=== PATIENT | female | born 1950 | race Caucasian/White ===

== ENCOUNTER 2018-04-16 11:52 | Outpatient (CLI) | payer MEDICARE, OTHER, SELFPAY ==
[2018-04-16 12:44] LABS: Abs Immature Grans 0.01 k/cumm (0.0-0.09); Absolute Basophil Count 0.05 k/cumm (0.0-0.2); Absolute Eosinophil Count 0.27 k/cumm (0.0-0.7); Absolute Lymphocyte Count 0.72 k/cumm (1.2-3.4); Absolute Monocyte Count 0.61 k/cumm (0.11-0.7); Absolute Neutrophil Count 6.02 k/cumm (1.2-6.7); Basophils % 0.7; Eosinophils % 3.5; HCT 39.4 % (36.0-46.0); HGB 12.9 g/dL (12.0-15.5); Immature Grans % 0.1; Lymphocytes % 9.4; Mean Corp. HGB Concentration 32.7 g/dL (32.0-36.0); Mean Corpuscular Volume 97.8 fL (80-95); Mean Platelet Volume 8.9 fL (8.0-11.0); Monocytes % 7.9; Neutrophils % 78.4; Platelet Count 394 x1000/uL (130-400); RBC 4.03 m/cumm (4.00-5.20); RBC Distribution Width 15.3 % (11.7-14.6); White Blood Cell Count 7.68 k/cumm (4.4-10.8)
[2018-04-16 13:33] LABS: ESR 21 MM/HR (0-30)
[2018-04-16 15:08] LABS: ALT 35 U/L (12-78); AST 29 U/L (15-37); Albumin 3.6 g/dL (3.4-5.0); Alkaline Phosphatase 71 U/L (46-116); Anion Gap 9.1 mmol/L (3-11); BUN 17 mg/dL (7-18); Bilirubin, Total 0.5 mg/dL (0.2-1.0); CO2 28.9 mmol/L (21.0-32.0); CREATININE 0.61 mg/dL (0.55-1.02); Calcium 9.1 mg/dL (8.5-10.1); Chloride 105 mmol/L (98-107); Glucose 94 mg/dL (70-100); Potassium 3.8 mmol/L (3.5-5.1); Sodium 143 mmol/L (136-145); Total Protein 6.9 g/dL (6.4-8.2)
[2018-04-16 16:10] LABS: C-Reactive Protein 1.09 mg/dL (0.0-0.3)
[2018-04-17 10:08] LABS: Hepatitis B Surface Ag Negative (NEGAT)
[2018-04-19 10:46] LABS: TB Interpretation Negative (NEGAT)
== END 2018-04-16 12:12 ==
PROVIDERS: PCP Family Medicine; Visit Provider Internal Medicine
DX: M06.00 Rheumatoid arthritis without rheumatoid factor, unspecified site (principal); Z11.1 Encounter for screening for respiratory tuberculosis; Z79.899 Other long term (current) drug therapy
CPT/HCPCS: 36415; 80053; 85652; 87340; 85025; 86140; 86480

== ENCOUNTER 2018-04-16 11:54 | Outpatient (REF) | payer MEDICARE, OTHER, SELFPAY ==
--- NOTE | 2018-04-16 11:00 | PAPFT_PTH ---
PATIENT: Page Katz LOC: [facility] U#:[id number] AGE/SX: 67/F ROOM: RE04/16/[address]: Madison Rey : 1950 BED: DIS: 04/16/2018 SPEC #: [id number] RECD: 04/16/18 12:59 STATUS: CHERIE REClem #: [id number] CHERRY: 04/16/18 11:[address]: Madison Rey DEPT: [facility] Cytology RECD BY: Thea Castro ENTERED: 04/16/18 13:00 SP TYPE: PAPFT RYLEY DR: Nathalie Bain MD Tissues: 1 - CX/ENDOCX FOR PAP SMEARS Procedures: PAP THIN PREP/UVM Screening HPV DNA PROBE Comments: [id number]
== END 2018-04-16 12:14 ==
LOC: LBN 11:54
PROVIDERS: PCP Family Medicine; Visit Provider Obstetrics & Gynecology Gynecology
DX: Z12.4 Encounter for screening for malignant neoplasm of cervix (principal); Z11.51 Encounter for screening for human papillomavirus (HPV)
CPT/HCPCS: 88142; 87624

== ENCOUNTER → 2018-05-02 09:53 | Outpatient (BNVA) | payer MEDICARE, OTHER, SELFPAY | PROVIDERS: Visit Provider Orthopaedic Surgery | DX: M70.61 Trochanteric bursitis, right hip (principal); M70.62 Trochanteric bursitis, left hip; Z96.653 Presence of artificial knee joint, bilateral; I10 Essential (primary) hypertension | CPT/HCPCS: 20610; 99214; J1030 ==

== ENCOUNTER 2018-05-10 01:55 | Outpatient (CLI) | payer MEDICARE, OTHER, SELFPAY ==
[2018-05-10 11:49] LABS: TSH 0.04 uIU/mL (0.358-3.74)
== END 2018-05-10 02:15 ==
PROVIDERS: PCP Family Medicine; Visit Provider Family Medicine
DX: C73 Malignant neoplasm of thyroid gland (principal); E55.9 Vitamin D deficiency, unspecified
CPT/HCPCS: 36415; 84443

== ENCOUNTER 2018-07-25 16:24 | Emergency (ER) | payer MEDICARE, OTHER, SELFPAY ==
[2018-07-25 16:27] VITALS: BP 151/70; PULSE 86; RESP 16; TEMP 36.5; O2SAT 98
--- NOTE | 2018-07-25 16:57 | W.ED.GENAD ---
Discharge Plan Disposition Patient Disposition: HOME Condition: Stable Discharge Details Chief Complaint: Cellulitis Clinical Impression: Ingrowing right great toenail Primary Care Provider: Nathalie Bain ED Provider: Ubaldo Mercer Home Meds and New Rx's Prescriptions: Continued prednisone 1 mg tablet 3 mg PO DAILY RF: 0 methotrexate sodium 2.5 mg tablet 10 mg PO BID RF: 0 gabapentin 100 mg capsule 300 mg PO BID RF: 0 alprazolam 0.5 mg tablet 0.25 mg PO Q HS PRN Qty: 90 RF: 0 folic acid 20 mg capsule 20 mg PO DAILY RF: 0 aspirin [Aspirin Low-Strength] 81 MG tablet,chewable 1 tab.chew PO DAILY RF: 0 losartan 100 MG tablet 100 mg PO DAILY Qty: 90 RF: 4 levothyroxine 125 MCG tablet 125 mcg PO 2 days/week Qty: 30 RF: 4 levothyroxine 150 MCG tablet 150 mcg PO 5 days/wk Qty: 70 RF: 4 hydrochlorothiazide 25 MG tablet 25 mg PO DAILY Qty: 90 RF: 3 duloxetine 60 mg capsule,delayed release(DR/EC) 60 mg PO DAILY Qty: 90 RF: 4 multivitamin 1 EACH capsule 1 cap PO DAILY RF: 0 Discharge Instructions Instructions: Ingrown Nail (ED) Additional Instructions: Please take antibiotics as directed until fully completed. Please use Epsom salt foot soaks 3 times a day for the next week and follow-up with podiatry for reassessment and further treat as needed. Feel free to return to the emergency department for any new or significant worsening of her symptoms. Referrals: Dylon Moe DPM [[facility] STAFF PHYSICIAN] - Discharge Data Discharge Date/Time-TO BE ENTERED AT DEPARTURE: 07/25/18 17:10 Medical Decision Making Patient presenting to the emergency department for chief complaint of right great toe pain. Patient states approximately a week ago she pulled a piece of her nail off and afterwards noted some irritation. Patient states history of ingrown toenails that she is always been able to take care of but over the last week this has increased in pain and redness. Patient denies any fever chills, streaking redness up the foot, or other systemic symptoms. Physical exam shows findings consistent with ingrown toenail to the lateral aspect of the right great toe with mild swelling and erythema. No streaking redness, no purulent drainage. Discussed with patient risk versus benefit of nail removal versus antibiotic therapy and foot soaks until she could follow-up with podiatry. After thorough discussion patient agreed upon plan of care to include Keflex and daily foot soaks with Epsom salts and follow-up with podiatry for reassessment and consideration of nail removal if needed at that point. Patient encouraged to return for any new or significant worsening of symptoms. After discussion of diagnosis and plan of care patient has no further needs, questions, or concerns and states clear understanding to return to the emergency department for any worsening symptoms. HPI General Mode of arrival: ambulatory. Date/Time Provider Initiated Documentation: 07/25/18 16:34. Limitations to Documentation: no limitations. Information obtained by: RN notes reviewed. History of Present Illness 67 year old F presents to the emergency department with the chief complaint of right ingrown toenail, described as moderate, with intensity rated at 10. Quality is described as sharp, and is localized to the right and lower extremity. Patient reports no radiation. Patient started experiencing this week(s) (1) and it has been constant. No relieving factors improve symptom(s), No exacerbating factors reported . Patient notes no other symptoms.. Patient did receive the following treatments prior to arrival, none Related Data Home Medications Medication Instructions Recorded Confirmed aspirin [Aspirin Low-Strength] 1 tab.chew PO DAILY tab-cap 10/13/12 07/25/18 multivitamin 1 cap PO DAILY 07/12/15 07/25/18 losartan 100 mg PO DAILY #90 tab-cap 01/04/18 07/25/18 levothyroxine 125 mcg PO 2 days/week #30 tab-cap 02/07/18 07/25/18 levothyroxine 150 mcg PO 5 days/wk #70 tab 02/07/18 07/25/18 hydrochlorothiazide 25 mg PO DAILY #90 tab-cap 03/13/18 07/25/18 alprazolam 0.5 mg tablet 0.25 mg PO Q HS PRN #90 tab 04/24/18 07/25/18 gabapentin 100 mg capsule 300 mg PO BID cap 04/24/18 07/25/18 methotrexate sodium 2.5 mg tablet 10 mg PO BID tab 04/24/18 07/25/18 prednisone 1 mg tablet 3 mg PO DAILY tab 04/24/18 07/25/18 folic acid 20 mg capsule 20 mg PO DAILY 05/02/18 07/25/18 duloxetine 60 mg capsule,delayed 60 mg PO DAILY #90 tab-cap 05/29/18 07/25/18 release Previous Rx's Medication Instructions Recorded losartan 100 mg PO DAILY #90 tab-cap 01/04/18 levothyroxine 125 mcg PO 2 days/week #30 tab-cap 02/07/18 levothyroxine 150 mcg PO 5 days/wk #70 tab 02/07/18 hydrochlorothiazide 25 mg PO DAILY #90 tab-cap 03/13/18 alprazolam 0.5 mg tablet 0.25 mg PO Q HS PRN #90 tab 04/24/18 duloxetine 60 mg capsule,delayed 60 mg PO DAILY #90 tab-cap 05/29/18 release Allergies Allergy/AdvReac Type Severity Reaction Status Date / Time atorvastatin AdvReac LFTS Unverified 07/25/18 16:32 fentanyl AdvReac CRAZY Unverified 07/25/18 16:32 BEHAVIOR General Stated Complaint: Cellulitis BUSTER: 4 Review of Systems Constitutional Denies body ache(s), Denies chills and Denies fever(s) Musculoskeletal Reports joint swelling, Denies numbness and Denies tingling Integumentary/Breasts Reports as per HPI and Reports skin swelling Neurologic Denies numbness and Denies tingling PFSH Medical History Crohns disease Depression Endometrial cancer Hyperlipidemia Hypertension Non-alcoholic fatty liver disease Polymyalgia rheumatica Primary malignant neoplasm of colon Primary malignant neoplasm of thyroid gland Surgical History Abdominal hysterectomy (05/26/14) Cholecystectomy (~2007) Colectomy Dilation and curettage (04/22/14) ILEOSTOMY (~2005) Replacement of total knee joint THYROIDECTOMY (~2011) shoulder surgery Family History Mother Essential hypertension Hyperlipidemia Father Essential hypertension Heart disease Myocardial infarction Stroke Sister Diabetes Essential hypertension Heart disease Pituitary adenoma Brother Essential hypertension Ulcerative colitis Paternal Grandfather Heart disease Paternal Grandmother Diabetes Sister Diabetes Essential hypertension Depression Asthma Heart disease Sister Essential hypertension Heart disease Son Asthma Son Essential hypertension Daughter Asthma Depression Social History household members: spouse number of children: 3 number of grandchildren: 4 current occupational status: retired pets and animals: Yes pets and animals: dog(s) frequency: decline to answer duration: decline to answer Smoking/Tobacco Use Status: Never second hand exposure: No alcohol intake: never substance use type: does not use flako/synagogue: No preference special flako needs: No additional social history: Children. 1973 Victoria-2 granddaughters, 1975 Chi grandson and granddaughter, 1977 Vic-3 children. Female Reproductive History Menstrual Menopause type: surgical History History 3 Para Hx # Term Pregnancies 3 Multiple births Hx # Pregnancies Ectopic pregnancies AB induced Hx Number of Living Children AB spontaneous Exam Const General: cooperative, no acute distress and not ill appearing Orientation: alert, awake and oriented x3 HENMT Mouth: moist mucous membranes Resp Effort & Inspection: normal respiratory effort, able to speak in complete sentences and no respiratory distress Cardio Rate: regular rate Rhythm: regular rhythm Skin General skin exam: no rashes or lesions noted Neuro General: alert, awake, oriented x3, moves all extremities and no focal motor deficits Sensory Exam: no sensory deficits noted Extrem Left lower extremity: foot Details: abnormal to inspection Details: erythematous (Lateral aspect of distal phalanx of great toe), tenderness Location: of the great toe Location: at the distal phalanx and over the nailbed and vascular exam Details: dorsalis pedis pulse present, posterior tibial pulse present and normal capillary refill Course Vital Signs Temperature 36.5 C 07/25/18 16:27 Pulse 86 07/25/18 16:27 Respiratory Rate 16 07/25/18 16:27 Blood Pressure 151/70 H 07/25/18 16:27 Pulse Oximetry 98 07/25/18 16:27 Temperature 36.5 C 07/25/18 16:27 Pulse 86 07/25/18 16:27 Respiratory Rate 16 07/25/18 16:27 Respiratory Effort Non-Labored 07/25/18 16:51 Blood Pressure 151/70 H 07/25/18 16:27 Blood Pressure Position Sitting 07/25/18 16:27 Pulse Oximetry 98 07/25/18 16:27 Oxygen Delivery Method Room Air 07/25/18 16:27 Oxygen Flow Rate 0 07/25/18 16:27 Pain Level 10 07/25/18 16:27
[2018-07-25] MEDS: Cephalexin 500 MG CAP PO (17:01)
== END 2018-07-25 17:10 | disposition home or self-care (01) ==
PROVIDERS: Emergency Provider Nurse Practitioner Family; PCP Family Medicine
DX: L60.0 Ingrowing nail (principal); I10 Essential (primary) hypertension
CPT/HCPCS: 99283

== ENCOUNTER 2018-10-02 02:48 | Outpatient (CLI) | payer MEDICARE, OTHER, SELFPAY ==
[2018-10-02 12:44] LABS: Abs Immature Grans 0.02 k/cumm (0.0-0.09); Absolute Basophil Count 0.03 k/cumm (0.0-0.2); Absolute Monocyte Count 0.57 k/cumm (0.11-0.7); Absolute Neutrophil Count 4.42 k/cumm (1.2-6.7); Basophils % 0.5; Eosinophils % 3.2; HCT 41.3 % (36.0-46.0); HGB 13.5 g/dL (12.0-15.5); Immature Grans % 0.3; Lymphocytes % 17.4; Mean Corp. HGB Concentration 32.7 g/dL (32.0-36.0); Mean Corpuscular Hemoglobin 31.9 pg (27.0-33.0); Mean Corpuscular Volume 97.6 fL (80-95); Mean Platelet Volume 9.2 fL (8.0-11.0); Neutrophils % 69.6; Platelet Count 430 x1000/uL (130-400); RBC 4.23 m/cumm (4.00-5.20); RBC Distribution Width 16.3 % (11.7-14.6); White Blood Cell Count 6.34 k/cumm (4.4-10.8)
[2018-10-02 13:10] LABS: ALT 38 U/L (12-78); AST 33 U/L (15-37); Albumin 3.4 g/dL (3.4-5.0); Alkaline Phosphatase 72 U/L (46-116); Anion Gap 5.4 mmol/L (3-11); BUN 14 mg/dL (7-18); Bilirubin, Total 0.2 mg/dL (0.2-1.0); C-Reactive Protein 0.92 mg/dL (0.0-0.3); CO2 33.6 mmol/L (21.0-32.0); Calcium 9.6 mg/dL (8.5-10.1); Chloride 104 mmol/L (98-107); Glucose 89 mg/dL (70-100); Potassium 4.1 mmol/L (3.5-5.1); Sodium 143 mmol/L (136-145); Total Protein 6.8 g/dL (6.4-8.2)
[2018-10-02 13:20] LABS: TSH 0.14 uIU/mL (0.358-3.74)
[2018-10-02 13:26] LABS: ESR 17 MM/HR (0-30)
== END 2018-10-02 03:08 ==
PROVIDERS: Internal Medicine; PCP Family Medicine; Visit Provider Family Medicine
DX: E03.9 Hypothyroidism, unspecified (principal); M06.00 Rheumatoid arthritis without rheumatoid factor, unspecified site; Z79.899 Other long term (current) drug therapy
CPT/HCPCS: 36415; 80053; 85652; 84443; 85025; 86140

== ENCOUNTER 2018-12-04 01:45 | Outpatient (CLI) | payer MEDICARE, OTHER, SELFPAY ==
[2018-12-04 14:38] LABS: TSH 0.12 uIU/mL (0.358-3.74)
== END 2018-12-04 02:05 ==
PROVIDERS: PCP Family Medicine; Visit Provider Family Medicine
DX: E03.9 Hypothyroidism, unspecified (principal)
CPT/HCPCS: 36415; 84443

== ENCOUNTER 2019-03-10 01:29 | Outpatient (CLI) | payer MEDICARE, OTHER, SELFPAY ==
[2019-03-10 12:47] LABS: Prothrombin Time 9.8 sec (9.3-11.0)
[2019-03-10 12:52] LABS: TSH 0.99 uIU/mL (0.36-3.74)
== END 2019-03-10 01:49 ==
PROVIDERS: PCP Family Medicine; Visit Provider Internal Medicine
DX: E03.9 Hypothyroidism, unspecified (principal); Z79.01 Long term (current) use of anticoagulants
CPT/HCPCS: 36415; 84443; 85610

== ENCOUNTER 2019-04-29 07:00 | Outpatient (CLI) | payer MEDICARE, OTHER, SELFPAY ==
[2019-04-29 13:19] LABS: HCT 42.3 % (36.0-46.0); HGB 13.4 g/dL (12.0-15.5); Mean Corp. HGB Concentration 31.7 g/dL (32.0-36.0); Mean Corpuscular Hemoglobin 31.3 pg (27.0-33.0); Mean Corpuscular Volume 98.8 fL (80-95); Mean Platelet Volume 9.1 fL (8.0-11.0); Platelet Count 408 x1000/uL (130-400); RBC 4.28 m/cumm (4.00-5.20); RBC Distribution Width 15.7 % (11.7-14.6); White Blood Cell Count 7.69 k/cumm (4.4-10.8)
[2019-04-29 14:00] LABS: ALT 34 U/L (14-59); AST 33 U/L (15-37); Albumin 3.9 g/dL (3.4-5.0); Alkaline Phosphatase 70 U/L (46-116); Anion Gap 10.5 mmol/L (3-11); BUN 10 mg/dL (7-18); Bilirubin, Total 0.5 mg/dL (0.2-1.0); CO2 28.5 mmol/L (21.0-32.0); CREATININE 0.65 mg/dL (0.55-1.02); Calcium 9.7 mg/dL (8.5-10.1); Calculated LDL 92 mg/dL; Chloride 104 mmol/L (98-107); Cholesterol 184 mg/dL (50-200); Glucose 87 mg/dL (70-100); HDL Cholesterol 76 mg/dL (40-60); Potassium 3.8 mmol/L (3.5-5.1); Sodium 143 mmol/L (136-145); TSH 1.27 uIU/mL (0.36-3.74); Total Protein 7.4 g/dL (6.4-8.2); Triglyceride 80 mg/dL (30-150)
[2019-05-01 06:56] LABS: Vitamin D 25 Total 20.2 ng/ml (30-100)
== END 2019-04-29 07:20 ==
PROVIDERS: PCP Family Medicine; Visit Provider Family Medicine
DX: I10 Essential (primary) hypertension (principal); E55.9 Vitamin D deficiency, unspecified; E03.9 Hypothyroidism, unspecified; F32.9 Major depressive disorder, single episode, unspecified; K50.90 Crohn's disease, unspecified, without complications
CPT/HCPCS: 36415; 80053; 80061; 82306; 85027; 84443

== ENCOUNTER → 2019-05-06 09:06 | Outpatient (BNVA) | payer MEDICARE, OTHER, SELFPAY | PROVIDERS: PCP Family Medicine; Visit Provider Orthopaedic Surgery | DX: M25.552 Pain in left hip (principal); M25.551 Pain in right hip; Z47.89 Encounter for other orthopedic aftercare; Z96.653 Presence of artificial knee joint, bilateral | CPT/HCPCS: 99213 ==

== ENCOUNTER 2019-08-26 01:26 | Outpatient (CLI) | payer MEDICARE, SELFPAY ==
[2019-08-26 12:45] LABS: ALT 34 U/L (14-59); AST 28 U/L (15-37); Albumin 3.6 g/dL (3.4-5.0); Alkaline Phosphatase 76 U/L (46-116); Anion Gap 8.6 mmol/L (3-11); BUN 13 mg/dL (7-18); Bilirubin, Total 0.4 mg/dL (0.2-1.0); C-Reactive Protein 0.65 mg/dL (0.0-0.3); CO2 29.4 mmol/L (21.0-32.0); CREATININE 0.62 mg/dL (0.55-1.02); Calcium 9.4 mg/dL (8.5-10.1); Chloride 107 mmol/L (98-107); Glucose 89 mg/dL (74-106); Potassium 3.9 mmol/L (3.5-5.1); Sodium 145 mmol/L (136-145); Total Protein 6.9 g/dL (6.4-8.2)
[2019-08-26 12:49] LABS: Abs Immature Grans 0.02 k/cumm (0.0-0.09); Absolute Basophil Count 0.03 k/cumm (0.0-0.2); Absolute Lymphocyte Count 0.84 k/cumm (1.2-3.4); Absolute Monocyte Count 0.58 k/cumm (0.11-0.7); Absolute Neutrophil Count 4.78 k/cumm (1.2-6.7); Basophils % 0.5; Eosinophils % 3.1; HCT 42.1 % (36.0-46.0); HGB 13.5 g/dL (12.0-15.5); Immature Grans % 0.3 %; Mean Corp. HGB Concentration 32.1 g/dL (32.0-36.0); Mean Corpuscular Hemoglobin 31.9 pg (27.0-33.0); Mean Corpuscular Volume 99.5 fL (80-95); Mean Platelet Volume 8.9 fL (8.0-11.0); Neutrophils % 74.1; Platelet Count 412 x1000/uL (130-400); RBC 4.23 m/cumm (4.00-5.20); RBC Distribution Width 15.4 % (11.7-14.6); White Blood Cell Count 6.45 k/cumm (4.4-10.8)
[2019-08-26 13:35] LABS: ESR 20 mm/hr (0-30)
== END 2019-08-26 01:46 ==
PROVIDERS: PCP Family Medicine; Visit Provider Internal Medicine
DX: M06.00 Rheumatoid arthritis without rheumatoid factor, unspecified site (principal); Z79.899 Other long term (current) drug therapy; K50.90 Crohn's disease, unspecified, without complications
CPT/HCPCS: 36415; 80053; 85652; 85025; 86140

== ENCOUNTER 2020-01-01 03:50 | Outpatient (CLI) | payer MEDICARE, SELFPAY ==
[2020-01-01 14:36] LABS: Abs Immature Grans 0.02 k/cumm (0.0-0.09); Absolute Basophil Count 0.03 k/cumm (0.0-0.2); Absolute Eosinophil Count 0.15 k/cumm (0.0-0.7); Absolute Lymphocyte Count 1.18 k/cumm (1.2-3.4); Absolute Monocyte Count 0.43 k/cumm (0.11-0.7); Absolute Neutrophil Count 6.16 k/cumm (1.2-6.7); Basophils % 0.4; Eosinophils % 1.9; HCT 42.1 % (36.0-46.0); HGB 13.7 g/dL (12.0-15.5); Immature Grans % 0.3 %; Lymphocytes % 14.8; Mean Corp. HGB Concentration 32.5 g/dL (32.0-36.0); Mean Corpuscular Hemoglobin 32.3 pg (27.0-33.0); Mean Corpuscular Volume 99.3 fL (80-95); Mean Platelet Volume 8.7 fL (8.0-11.0); Monocytes % 5.4; Neutrophils % 77.2; Platelet Count 478 x1000/uL (130-400); RBC 4.24 m/cumm (4.00-5.20); RBC Distribution Width 15.4 % (11.7-14.6); White Blood Cell Count 7.97 k/cumm (4.4-10.8)
[2020-01-01 15:12] LABS: ALT 39 U/L (14-59); AST 28 U/L (15-37); Albumin 3.7 g/dL (3.4-5.0); Alkaline Phosphatase 80 U/L (46-116); Anion Gap 3.7 mmol/L (3-11); BUN 13 mg/dL (7-18); Bilirubin, Total 0.6 mg/dL (0.2-1.0); C-Reactive Protein 0.95 mg/dL (0.0-0.3); CO2 34.3 mmol/L (21.0-32.0); CREATININE 0.64 mg/dL (0.55-1.02); Calcium 9.9 mg/dL (8.5-10.1); Chloride 103 mmol/L (98-107); Glucose 95 mg/dL (74-106); Potassium 3.6 mmol/L (3.5-5.1); Sodium 141 mmol/L (136-145); Total Protein 7.2 g/dL (6.4-8.2)
[2020-01-01 15:18] LABS: ESR 20 mm/hr (0-30)
[2020-01-01 15:37] LABS: Vitamin D 25 Total 22.2 ng/ml (30-100)
== END 2020-01-01 04:10 ==
PROVIDERS: PCP Family Medicine; Visit Provider Internal Medicine
DX: E55.9 Vitamin D deficiency, unspecified (principal); M06.00 Rheumatoid arthritis without rheumatoid factor, unspecified site; Z79.899 Other long term (current) drug therapy
CPT/HCPCS: 36415; 80053; 82306; 85652; 85025; 86140

== ENCOUNTER 2020-04-27 04:42 | Outpatient (CLI) | payer MEDICARE, SELFPAY ==
[2020-04-27 10:52] LABS: Abs Immature Grans 0.02 10^3/uL (0.0-0.06); Absolute Basophil Count 0.04 10^3/uL (0.0-0.2); Absolute Lymphocyte Count 0.98 10^3/uL (1.2-3.4); Absolute Monocyte Count 0.74 10^3/uL (0.1-0.8); Absolute Neutrophil Count 6.45 10^3/uL (1.2-6.7); Basophils % 0.5; Eosinophils % 3.5; HCT 40.8 % (36.0-46.0); HGB 13.2 g/dL (11.2-15.7); Immature Grans % 0.2; Lymphocytes % 11.5; MCH 32.3 pg (27.0-33.0); MCHC 32.4 % (32.0-36.0); MCV 99.8 fL (80-95); MPV 8.6 fL (8.0-11.0); Monocytes % 8.7; Neutrophils % 75.6; Nucleated RBC 0 %; Platelet Count 368 10^3/uL (130-400); RBC 4.09 10^6/uL (3.93-5.22); RDW 15.5 % (11.7-14.6); RDW-SD 56.1 fL; WBC 8.53 10^3/uL (4.4-10.8)
[2020-04-27 11:40] LABS: ESR 16 mm/hr (0-30)
[2020-04-27 11:57] LABS: ALT 32 U/L (14-59); AST 27 U/L (15-37); Albumin 3.3 g/dL (3.4-5.0); Alkaline Phosphatase 70 U/L (46-116); BUN 10 mg/dL (7-18); Bilirubin, Total 0.5 mg/dL (0.2-1.0); C-Reactive Protein 0.83 mg/dL (0.0-0.3); CREATININE 0.68 mg/dL (0.55-1.02); Calcium 9.5 mg/dL (8.5-10.1); Chloride 104 mmol/L (98-107); Glucose 99 mg/dL (74-106); Potassium 3.7 mmol/L (3.5-5.1); Sodium 142 mmol/L (136-145); Total Protein 6.7 g/dL (6.4-8.2)
== END 2020-04-27 05:02 ==
PROVIDERS: PCP Family Medicine; Visit Provider Internal Medicine
DX: M06.00 Rheumatoid arthritis without rheumatoid factor, unspecified site (principal); Z79.899 Other long term (current) drug therapy
CPT/HCPCS: 36415; 80053; 85652; 85025; 86140

== ENCOUNTER → 2020-05-26 11:04 | Outpatient (BNVA) | payer MEDICARE, SELFPAY | PROVIDERS: PCP Family Medicine; Referring Provider Family Medicine; Visit Provider Orthopaedic Surgery | DX: M65.332 Trigger finger, left middle finger (principal); I10 Essential (primary) hypertension | CPT/HCPCS: 99214 ==

== ENCOUNTER 2020-06-14 09:14 | Day surgery (SDC) | payer MEDICARE, SELFPAY ==
[2020-06-14 09:45] VITALS: BP 158/67; PULSE 78; RESP 16; TEMP 36.1; O2SAT 96
[2020-06-14] MEDS: Bupivacaine 0.5% Pres-Free 30 ML VIAL (10:56)
[2020-06-14] MEDS: Lidocaine 2% Multi-Dose 50 ML VIAL (10:56)
--- NOTE | 2020-06-14 11:06 | PDOC.DSDIS_ITS ---
Discharge Plan Disposition Patient Disposition: HOME Condition: Good Discharge Details Reason For Visit: RELEASE TRIGGER LMF Attending Provider: Tim Vera Primary Care Provider: Nathalie Bain Home Meds and New Rx's Prescriptions: Continued prednisone 1 mg tablet 5 mg PO DAILY RF: 0 gabapentin 100 mg capsule 300 mg PO BID RF: 0 methotrexate sodium 2.5 mg tablet 10 mg PO .BID once a week RF: 0 folic acid 20 mg capsule 20 mg PO DAILY RF: 0 losartan 100 mg tablet 100 mg PO DAILY Qty: 90 RF: 4 cholecalciferol (vitamin D3) 2,000 unit capsule 2,000 unit PO DAILY Qty: 90 RF: 4 duloxetine 60 mg capsule,delayed release(DR/EC) 60 mg PO DAILY Qty: 90 RF: 4 alprazolam 0.5 mg tablet 0.25 mg PO Q HS PRN Qty: 90 RF: 0 hydrochlorothiazide 25 mg tablet 25 mg PO DAILY Qty: 90 RF: 3 levothyroxine 125 mcg tablet 125 mcg PO DAILY Qty: 90 RF: 0 ibuprofen [Advil] 200 mg Tablet 400 mg PO PRN PRNRF: 0 Discharge Instructions Additional Instructions: Bend and straighten fingers of L hand 10 times/hour when awake to prevent swelling. Remove dressings, shower or bathe and get incision wet, after 48 hours. Leave incision uncovered when it is dry and sealed. Use L hand as much as discomfort allows. Follow up with in 2 weeks. Take tylenol or ibuprofen for pain. Referrals: Tim Vera MD [ [facility] STAFF PHYSICIAN] - (f/u in 2 weeks.) Activity:: Activity as Tolerated Remove Dressings/Wound Care:: 48 hours Shower/Bathe:: 48 hours Diet:: As Tolerated Discharge Orders Discharge Orders: Discharge Order (Routine); Ordered 06/14/20 Ordered By: Tim Vera
--- NOTE | 2020-06-14 12:00 | W.PM.OP ---
Date of service: 06/14/20 Time of Service: 11:00 Operative Note Operative Note DATE OF PROCEDURE: 06/14/20 PRE-OP DIAGNOSIS: Trigger left middle finger POST-OP DIAGNOSIS: same PROCEDURE: Tendon sheath incision for trigger finger left middle finger SURGEON: Tim Vera ANESTHESIA: local COMPLICATIONS: None Patient was transported to: same day Patient's condition: stable Indications: This is a 69-year-old white female with painful locking and catching of her left middle finger of 2-1/2 months duration. The recurrent locking is interfering with use of her left hand. Trigger finger release was recommended to alleviate her pain and restore good function to her left hand. The risk complications of the procedure been explained patient detail preop. Procedure Description: Patient was taken the operating room on 06/14/2020 was placed supine on the operating table. The left hand was prepped and draped free in usual sterile fashion. I infiltrated over the flexor sheath of the left middle finger with 2% Xylocaine solution down to the flexor sheath. A transverse incision was made centered over the flexor sheath approximately 5 mm distal to the distal palmar flexion crease and parallel to it. Incision was carried down to the skin and subcu. Blunt tipped Littler scissors were used then to mobilize the soft tissue away from the flexor sheath. Self-retaining retractors were inserted. Under direct vision the flexor sheath was incised in the midline with a 15 blade. I then completed the incision of the proximal alida with Littler scissors proximally and distally. The patient this point was asked to actively flex and extend her left middle finger. She can now flex and extend her left middle finger without locking or catching. The wound was irrigated with saline solution. The wound margins were infiltrated with 0.5% Marcaine solution. Hemostasis obtained with simple direct pressure. The skin edges were approximated 2 interrupted 4 nylon sutures. Sterile dressings were applied. Patient was discharged to the skilled unit in good condition. Patient was given instructions to flex and extend her fingers of the left hand 10 times an hour while awake to prevent swelling. She is to keep the dressing clean and dry for 48 hours. After 48 hours she is to remove the dressings. She may shower bathe and get her incision wet at that point. She can leave the wound uncovered when it is dry and sealed. She will take Tylenol or ibuprofen for pain. She will follow-up with Dr. Vera in 2 weeks for suture removal. She may use her left hand is much as discomfort allows.
== END 2020-06-14 11:23 | disposition home or self-care (01) ==
PROVIDERS: PCP Family Medicine; Visit Provider Orthopaedic Surgery
PROC: (CPT 26055; principal; 2020-06-14 11:00)
DX: M65.332 Trigger finger, left middle finger (principal)
CPT/HCPCS: 26055

== ENCOUNTER → 2020-06-29 09:52 | Outpatient (BNVA) | payer MEDICARE, SELFPAY | PROVIDERS: PCP Family Medicine; Referring Provider Family Medicine; Visit Provider Orthopaedic Surgery | DX: Z47.89 Encounter for other orthopedic aftercare (principal); M65.332 Trigger finger, left middle finger; I10 Essential (primary) hypertension ==

== ENCOUNTER 2020-09-13 01:45 | Outpatient (CLI) | payer MEDICARE, SELFPAY ==
[2020-09-13 12:30] LABS: Abs Immature Grans 0.04 10^3/uL (0.0-0.06); Absolute Basophil Count 0.08 10^3/uL (0.0-0.2); Absolute Lymphocyte Count 1.15 10^3/uL (1.2-3.4); Absolute Monocyte Count 0.89 10^3/uL (0.1-0.8); Absolute Neutrophil Count 4.86 10^3/uL (1.2-6.7); Basophils % 1.1; Eosinophils % 5.4; HCT 42.7 % (36.0-46.0); HGB 13.7 g/dL (11.2-15.7); Immature Grans % 0.5; Lymphocytes % 15.5; MCH 32.3 pg (27.0-33.0); MCHC 32.1 % (32.0-36.0); MCV 100.7 fL (80-95); MPV 8.9 fL (8.0-11.0); Neutrophils % 65.5; Nucleated RBC 0 %; Platelet Count 393 10^3/uL (130-400); RBC 4.24 10^6/uL (3.93-5.22); RDW 15.9 % (11.7-14.6); RDW-SD 58.4 fL; WBC 7.42 10^3/uL (4.4-10.8)
[2020-09-13 12:34] LABS: ALT 30 U/L (14-59); AST 22 U/L (15-37); Albumin 3.5 g/dL (3.4-5.0); Alkaline Phosphatase 72 U/L (46-116); Anion Gap 7.1 mmol/L (3-11); BUN 14 mg/dL (7-18); Bilirubin, Total 0.4 mg/dL (0.2-1.0); C-Reactive Protein 0.99 mg/dL (0.0-0.3); CO2 29.9 mmol/L (21.0-32.0); CREATININE 0.6 mg/dL (0.55-1.02); Calcium 9.7 mg/dL (8.5-10.1); Chloride 105 mmol/L (98-107); Glucose 93 mg/dL (74-106); Potassium 3.5 mmol/L (3.5-5.1); Sodium 142 mmol/L (136-145)
[2020-09-13 12:36] LABS: Calculated LDL 97 mg/dL (<100); Cholesterol 192 mg/dL (<200); HDL Cholesterol 80 mg/dL (40-60); Triglyceride 78 mg/dL (<150)
[2020-09-13 12:44] LABS: TSH 0.86 uIU/mL (0.36-3.74)
[2020-09-13 12:55] LABS: Vitamin D 25 Total 23.3 ng/ml (30-100)
[2020-09-13 15:54] LABS: ESR 39 mm/hr (<or=30)
== END 2020-09-13 01:46 | disposition home or self-care (01) ==
PROVIDERS: Nurse Practitioner; PCP Family Medicine; Visit Provider Internal Medicine
DX: K50.90 Crohn's disease, unspecified, without complications (principal); I10 Essential (primary) hypertension; C73 Malignant neoplasm of thyroid gland
CPT/HCPCS: 36415; 80053; 80061; 82306; 85652; 84443; 85025; 86140

== ENCOUNTER 2020-11-02 20:49 | Outpatient (REF) | payer MEDICARE, SELFPAY ==
[2020-11-04 15:20] LABS: COVID-19 RT-PCR UVMMC Result Positive (Negative)
== END 2020-11-02 20:50 | disposition home or self-care (01) ==
LOC: LBN 20:49
PROVIDERS: PCP Family Medicine; Visit Provider Physician Assistant
DX: Z20.822 Contact with and (suspected) exposure to COVID-19 (principal)
CPT/HCPCS: U0003; U0005

== ENCOUNTER 2021-04-07 02:39 | Outpatient (CLI) | payer MEDICARE, SELFPAY ==
[2021-04-07 12:20] LABS: Abs Immature Grans 0.03 10^3/uL (0.0-0.06); Absolute Basophil Count 0.05 10^3/uL (0.0-0.2); Absolute Eosinophil Count 0.32 10^3/uL (0.0-0.7); Absolute Lymphocyte Count 1.07 10^3/uL (1.2-3.4); Absolute Monocyte Count 0.71 10^3/uL (0.1-0.8); Absolute Neutrophil Count 4.14 10^3/uL (1.2-6.7); Basophils % 0.8; Eosinophils % 5.1; HGB 13.2 g/dL (11.2-15.7); Immature Grans % 0.5; Lymphocytes % 16.9; MCH 32.1 pg (27.0-33.0); MCHC 32.2 % (32.0-36.0); MCV 99.8 fL (80-95); MPV 9.1 fL (8.0-11.0); Monocytes % 11.2; Neutrophils % 65.5; Nucleated RBC 0 %; Platelet Count 407 10^3/uL (130-400); RBC 4.11 10^6/uL (3.93-5.22); RDW 14.7 % (11.7-14.6); RDW-SD 52.7 fL; WBC 6.32 10^3/uL (4.4-10.8)
[2021-04-07 12:46] LABS: ALT 34 U/L (14-59); AST 28 U/L (15-37); Albumin 3.4 g/dL (3.4-5.0); Alkaline Phosphatase 73 U/L (46-116); Anion Gap 6.7 mmol/L (3-11); BUN 13 mg/dL (7-18); Bilirubin, Total 0.5 mg/dL (0.2-1.0); C-Reactive Protein 0.54 mg/dL (0.0-0.3); CO2 29.3 mmol/L (21.0-32.0); CREATININE 0.8 mg/dL (0.55-1.02); Calcium 9.7 mg/dL (8.5-10.1); Chloride 106 mmol/L (98-107); Glucose 97 mg/dL (74-106); Potassium 3.8 mmol/L (3.5-5.1); Sodium 142 mmol/L (136-145); Total Protein 6.9 g/dL (6.4-8.2)
== END 2021-04-07 02:40 | disposition home or self-care (01) ==
LOC: LOS 02:40
PROVIDERS: PCP Family Medicine; Visit Provider Internal Medicine
DX: M06.00 Rheumatoid arthritis without rheumatoid factor, unspecified site (principal)
CPT/HCPCS: 36415; 80053; 85025; 86140

== ENCOUNTER 2021-05-24 13:38 | Outpatient (CLI) | payer MEDICARE, SELFPAY ==
--- NOTE | 2021-05-24 13:00 | DI.RAD_ITS ---
Exam(s) XR SHOULDER RT COMPLETE 2+V EXAM: XR SHOULDER RT COMPLETE 2+V CLINICAL HISTORY: shoulder pain. TECHNIQUE: 2D digital imaging was performed. COMPARISON: CR RIGHT SHOULDER COMPLETE from 07/08/2015 CR RIGHT SHOULDER COMPLETE from 07/08/2015 CR CHEST 2 VIEWS PA,LAT from 07/09/2015 CR CHEST 2 VIEWS PA,LAT from 07/09/2015 FINDINGS: BONES: No acute fracture is present. No bony destructive lesion is seen. JOINTS: No dislocation present. Glenohumeral joint space is well maintained. There is spurring at t he inferior glenoid. Mild spurring is seen at the greater and lesser tuberosities. SOFT TISSUE: Normal. No tendon or joint space calcifications. IMPRESSION: Mild degenerative changes. DATA REPOSITORY: RADIATION DOSE DELIVERED:
== END 2021-05-24 13:39 | disposition home or self-care (01) ==
LOC: DIORS 13:38
PROVIDERS: PCP Family Medicine; Referring Provider Family Medicine; Visit Provider Student in an Organized Health Care Education/Training Program
DX: M25.511 Pain in right shoulder (principal); G56.02 Carpal tunnel syndrome, left upper limb; G56.22 Lesion of ulnar nerve, left upper limb; M75.81 Other shoulder lesions, right shoulder; M75.21 Bicipital tendinitis, right shoulder
CPT/HCPCS: 99204; 99214; 73030

== ENCOUNTER 2021-06-29 00:42 | Outpatient (CLI) | payer MEDICARE, SELFPAY ==
--- NOTE | 2021-06-29 08:54 | DI.MAMMO_ITS ---
Exam(s) MAMMO SCREENING EXAM: MAMMO SCREENING CLINICAL HISTORY: screening,Z12.39 TECHNIQUE: Bilateral full field digital CC and MLO mammographic images were obtained with 3D tomosyn thesis and utilizing computer aided detection (CAD). COMPARISON: Available for comparison. FINDINGS: Masses/Architectural Distortion: There is an ovoid density in the posterior central right breast seen on the mediolateral oblique view. This area should be further evaluated with a spot compression vie w. Ultrasound may be indicated at that time. Microcalcifications: No suspicious pleomorphic-type are seen. Skin Thickening/Nipple Retraction: None. IMPRESSION: 1. Ovoid asymmetry in the posterior central right breast seen on the MLO view. 2. Further evaluation with a spot compression views recommended. Ultrasound may be indicated at that time. BI-RADS Category 0 - Assessment Incomplete: Need additional imaging evaluation Breast Density - Category B - Scattered areas of fibroglandular density Breast density category C or D implies that the patient has dense breast tissue. Dense breast tissue is very common and is not abnormal but dense breast tissue can make it harder to find cancer on a ma mmogram. Also, dense breast tissue may increase their breast cancer risk. This information about the result of the mammogram report was provided to the patient to raise their awareness. Use this report when you speak with the patient about their risks for breast cancer, which includes their family hist ory. At that time, you may recommend for more screening tests (Ultrasound or MRI) as they might be us eful based on their risk. A negative radiographic report should not delay biopsy if a dominant or clinically suspicious mass is present. Up to ten percent of cancers are not identified on mammography. A negative report may reinforce clinical impression. Adenosis and dense breasts may obscure an underlying neoplasm. False positive reports average 6 to 10%. Patient will receive a letter notifying them of these results.
== END 2021-06-29 01:02 ==
PROVIDERS: PCP Family Medicine; Visit Provider Family Medicine
DX: Z12.31 Encounter for screening mammogram for malignant neoplasm of breast (principal); R92.8 Other abnormal and inconclusive findings on diagnostic imaging of breast
CPT/HCPCS: 77063; 77067

== ENCOUNTER 2021-07-11 02:01 | Outpatient (CLI) | payer MEDICARE, SELFPAY ==
--- NOTE | 2021-07-11 | DI.US_ITS ---
Exam(s) MG MAMMO SCREEN CALL BACK UNI US BREAST RT COMPLETE EXAM: MG MAMMO SCREEN CALL BACK UNI RIGHT AND COMPLETE RIGHT BREAST ULTRASOUND CLINICAL HISTORY: F/U TO ABNL MAMMO, OVOID ASYMMETRY POSTERIOR RT BREAST. TECHNIQUE: Unilateral spot mammographic images obtained with 3D tomosynthesisand utilizing computer aided detection (CAD). . Complete RIGHT breast Ultrasound was also performed, including all 4 quadrants, the retroareolar sandra on, and the ipsilateral axilla. COMPARISON: Prior mammograms were reviewed. This additional imaging was performed due to findings described on the recent screening mammogram of 06/29/2021. FINDINGS: DIAGNOSTIC RIGHT BREAST MAMMOGRAM: Additional mammographic views performed todaydid not completely dissipate the finding. COMPLETE BREAST US: Ultrasound performed today reveals no significant focal finding in all 4 quadrants nor in the retroar eolar region. Scanning of the ipsilateral right axilla did not reveal adenopathy IMPRESSION: As above. Appropriate follow-up is repeat right breast mammogram in 6 months, with earlier imaging if a self d etected breast change is noted. The patient was informed of these findings and recommendations prior to leaving the department today. BI-RADS Category 3 - 6 month - Probably Benign Finding: Recommend follow-up mammography in 6 months Breast Density - Category B - Scattered areas of fibroglandular density Breast density Category C or D implies that the patient has dense breast tissue. Dense breast tissue can make it harder to find cancer on a mammogram. Dense breast tissue is also associated with an incr eased risk of breast cancer. This information about the result of the mammogram report was provided to the patient to raise their awareness. Use this report when you speak with the patient about their risks for breast cancer, which includes their family history. At that time, you may recommend additional screening tests (Ultrasoun d or MRI) as these tests may add significant information. A negative radiographic report should not delay biopsy if a dominant or clinically suspicious mass is present. Up to ten percent of cancers are not identified on mammography. A negative report may reinforce clinical impression. Adenosis and dense breasts may obscure an underlying neoplasm. False positive reports average 6 to 10%. Patient will receive a letter notifying them of these results.
== END 2021-07-11 02:21 ==
PROVIDERS: PCP Family Medicine; Visit Provider Family Medicine
DX: Z12.31 Encounter for screening mammogram for malignant neoplasm of breast (principal); R92.8 Other abnormal and inconclusive findings on diagnostic imaging of breast; N64.59 Other signs and symptoms in breast
CPT/HCPCS: 76642; 77063; 77067

== ENCOUNTER → 2021-08-22 09:19 | Outpatient (BNVA) | payer MEDICARE, SELFPAY | PROVIDERS: PCP Family Medicine; Referring Provider Student in an Organized Health Care Education/Training Program; Visit Provider Psychiatry & Neurology Neurology | DX: G56.02 Carpal tunnel syndrome, left upper limb (principal); I10 Essential (primary) hypertension | CPT/HCPCS: 99213 ==

== ENCOUNTER 2021-11-01 04:29 | Outpatient (CLI) | payer MEDICARE, SELFPAY ==
[2021-11-01 15:31] LABS: TSH (W/Ref FT4) 0.31 uIU/mL (0.36-3.74)
[2021-11-01 15:54] LABS: FREE T4 1.27 ng/dL (0.76-1.46)
== END 2021-11-01 04:30 | disposition home or self-care (01) ==
LOC: LBO 04:29
PROVIDERS: PCP Family Medicine; Visit Provider Family Medicine
DX: C73 Malignant neoplasm of thyroid gland (principal); F41.8 Other specified anxiety disorders
CPT/HCPCS: 84439; 84443

== ENCOUNTER 2021-12-15 03:50 | Outpatient (CLI) | payer MEDICARE, SELFPAY ==
[2021-12-15 12:09] LABS: Abs Immature Grans 0.03 10^3/uL (0.0-0.06); Absolute Basophil Count 0.08 10^3/uL (0.0-0.2); Absolute Eosinophil Count 0.31 10^3/uL (0.0-0.7); Absolute Lymphocyte Count 2.24 10^3/uL (1.2-3.4); Absolute Monocyte Count 0.75 10^3/uL (0.1-0.8); Absolute Neutrophil Count 3.85 10^3/uL (1.2-6.7); Basophils % 1.1; Eosinophils % 4.3; HCT 42.3 % (36.0-46.0); HGB 13.5 g/dL (11.2-15.7); Immature Grans % 0.4; Lymphocytes % 30.9; MCH 31.5 pg (27.0-33.0); MCHC 31.9 % (32.0-36.0); MCV 99 fL (80-95); Monocytes % 10.3; Platelet Count 401 10^3/uL (130-400); RBC 4.28 10^6/uL (3.93-5.22); RDW 13.6 % (11.7-14.6); RDW-SD 49.5 fL; WBC 7.26 10^3/uL (4.4-10.8)
[2021-12-15 12:30] LABS: ALT 27 U/L (14-59); AST 19 U/L (15-37); Albumin 3.4 g/dL (3.4-5.0); Alkaline Phosphatase 76 U/L (46-116); Anion Gap 9.4 mmol/L (3-11); BUN 14 mg/dL (7-18); Bilirubin, Total 0.7 mg/dL (0.2-1.0); CO2 29.6 mmol/L (21.0-32.0); CREATININE 0.7 mg/dL (0.55-1.02); Calcium 9.3 mg/dL (8.5-10.1); Chloride 105 mmol/L (98-107); Glucose 92 mg/dL (74-106); Potassium 3.5 mmol/L (3.5-5.1); Sodium 144 mmol/L (136-145)
== END 2021-12-15 03:51 | disposition home or self-care (01) ==
LOC: LOS 03:50
PROVIDERS: PCP Family Medicine; Visit Provider Physician Assistant
DX: R51.9 Headache, unspecified (principal); R53.83 Other fatigue
CPT/HCPCS: 36415; 80053; 85025

== ENCOUNTER → 2022-01-09 01:58 | Outpatient (CLI) | payer MEDICARE, SELFPAY ==
--- NOTE | 2022-01-09 09:00 | DI.MAMMO_ITS ---
Exam(s) MG MAMMO DIAGNOSTIC UNI EXAM: MG MAMMO DIAGNOSTIC UNI CLINICAL HISTORY: 3-6 mo f/u abnormal mammo of rt breast, R92.8. COMPARISON: No exams were available for comparison [id number] TECHNIQUE: Craniocaudal and mediolateral oblique Full Field Digital Mammography views of the right b reast with Computer Aided Diagnosis followed by Tomosynthesis cc and MLO spot compression views. FINDINGS: Mammography/Tomosynthesis: Masses/Architectural Distortion: No change in the vague nodular density in the medial breast present on multiple prior exams. No new abnormalities. Microcalcifications: No suspicious pleomorphic-type are seen. Skin Thickening/Nipple Retraction: None. IMPRESSION: 1. No evidence of malignancy is noted. 2. Unless there is more urgent need, follow-up screening mammography is recommended, as per [place] [employer] guidelines. BI-RADS Category 2 - Benign Findings Breast Density - Category B - Scattered areas of fibroglandular density . A negative radiographic report should not delay biopsy if a dominant or clinically suspicious mass is present. Up to ten percent of cancers are not identified on mammography. A negative report may reinforce clinical impression. Adenosis and dense breasts may obscure an underlying neoplasm. False positive reports average 6 to 10%. Patient will receive a letter notifying them of these results.
== END ==
PROVIDERS: PCP Family Medicine; Visit Provider Physician Assistant
DX: R92.8 Other abnormal and inconclusive findings on diagnostic imaging of breast (principal); N60.81 Other benign mammary dysplasias of right breast
CPT/HCPCS: 77061; 77065; G0279

== ENCOUNTER → 2022-01-18 01:26 | Outpatient (CLI) | payer MEDICARE, SELFPAY ==
[2022-01-18] MEDS: Normal Saline Flush 10 ML SYR IVP (14:13)
[2022-01-18] MEDS: Gadoterate meglumine 20 ML SYRINGE IVP (14:13)
--- NOTE | 2022-01-18 14:45 | DI.MRI_ITS ---
Exam(s) MR BRAIN WO/W EXAM: MR BRAIN WO/W CLINICAL HISTORY: memory issues, word finding, FATIGUE, R47.89, R53.83 TECHNIQUE: Multiplanar multisequence MRI of the brain was performed. CONTRAST MATERIAL: IV Contrast: 20 mL of Dotarem contrast administered. COMPARISON: No exams were available for comparison FINDINGS: VENTRICLES AND EXTRA AXIAL SPACES: Normal in size and morphology for the patient's age. HEMORRHAGE: None. CEREBRAL PARENCHYMA: No focus of restricted diffusion to suggest acute infarct. No space-occupying le eladio identified. There are few scattered foci of hyperintense signal in the white matter on the T2 an d FLAIR images most consistent with small vessel ischemic disease. MIDLINE SHIFT: None. BRAINSTEM/CEREBELLUM: Normal. CALVARIUM: Normal. ENHANCEMENT: No suspicious enhancement identified. VISUALIZED PARANASAL SINUSES/MASTOIDS: Clear. [place]: Normal flow void. PITUITARY GLAND: Unremarkable. OTHER FINDINGS: IMPRESSION: 1. Findings most suggestive of small vessel ischemic disease. 2. No evidence of an intracranial infarct, mass or enhancing lesion. DATA REPOSITORY:
== END ==
PROVIDERS: PCP Family Medicine; Visit Provider Family Medicine
DX: R47.89 Other speech disturbances (principal); R53.83 Other fatigue
CPT/HCPCS: 70553

== ENCOUNTER 2022-01-31 12:45 | Outpatient (REF) | payer MEDICARE, SELFPAY ==
--- NOTE | 2022-01-31 11:35 | PAPFT_PTH ---
PATIENT: Page Katz LOC: [facility] U#:[id number] AGE/SX: 71/F ROOM: RE01/31/[address]: Madison Rey : 1950 BED: DIS: 01/31/2022 SPEC #: [id number] RECD: 01/31/22 13:27 STATUS: CHERIE REClem #: [id number] CHERRY: 01/31/22 11:[address]: Madison Rey DEPT: [facility] Cytology RECD BY: Mahsa Miles ENTERED: 01/31/22 13:27 SP TYPE: PAPFT OTHR DR: Latha Aguirre Tissues: 1 - CX/ENDOCX FOR PAP SMEARS Procedures: PAP THIN PREP/UVM Screening HPV DNA PROBE Comments: [id number]
== END 2022-01-31 12:46 | disposition home or self-care (01) ==
LOC: LBN 12:45
PROVIDERS: PCP Family Medicine; Visit Provider Obstetrics & Gynecology Gynecology
DX: Z11.51 Encounter for screening for human papillomavirus (HPV) (principal); R87.618 Other abnormal cytological findings on specimens from cervix uteri; Z01.411 Encounter for gynecological examination (general) (routine) with abnormal findings
CPT/HCPCS: 88142; 87624

== ENCOUNTER 2022-07-13 02:54 | Outpatient (CLI) | payer MEDICARE, SELFPAY ==
[2022-07-13 12:44] LABS: TSH (W/Ref FT4) 0.76 uIU/mL (0.36-3.74)
== END 2022-07-13 02:55 | disposition home or self-care (01) ==
LOC: LOS 02:54
PROVIDERS: PCP Family Medicine; Visit Provider Family Medicine
DX: E03.9 Hypothyroidism, unspecified (principal)
CPT/HCPCS: 36415; 84443

== ENCOUNTER 2022-08-10 04:19 | Emergency (ER) | payer MEDICARE, SELFPAY ==
[2022-08-10 04:30] VITALS: BP 174/106; PULSE 88; RESP 18; TEMP 37.1; O2SAT 98
--- NOTE | 2022-08-10 04:30 | RT.EKG_ITS ---
APPROVED REPORT Exam: Resting ECG Reason for Exam: severe pain Patient Location: E HR:84 bpm ECG Measurements Heart Rate 84 AXIS DC 136 P 18 QRSd 96 QRS 13 QT 389 T 133 QTc 460 Conclusion Sinus rhythm...normal P axis, V-rate 60- 99 Nonspecific repol abnormality, lateral leads...ST dep, T neg, I aVL V5 V6 Physician: no stemi
--- NOTE | 2022-08-10 04:43 | ED.GENADUL_ITS ---
Discharge Plan Disposition Patient Disposition: Home Condition: Good Discharge Details Chief Complaint: Abd Prob Clinical Impression: Urinary tract infection, Gastric irritation Primary Care Provider: Latha Aguirre ED Provider: Torrey Jenkins Home Meds and New Rx's Prescriptions: No Action prednisone 1 mg tablet 5 mg PO DAILY biotin 5 mg capsule 5 mg PO DAILY alprazolam 0.25 mg tablet See Rx Instructions PO .COMPLEX PRN (Reason: anxiety) Qty: 25 0RF Rx Instructions: PO PRN; 1/2-1 tab daily as needed for anxiety adalimumab 40 mg/0.4 mL pen injector kit 40 mg subcut QWEEK folic acid 20 mg capsule 20 mg PO DAILY Label Comments: 05.02.18 pt states she takes this but unsure of dose.HE metronidazole 0.75 % cream 1 applic topical BID PRN (Reason: rosacea) Rx Instructions: local application twice a day for rosacea hydrochlorothiazide 25 mg tablet 25 mg PO DAILY Qty: 90 3RF Rx Instructions: cholecalciferol (vitamin D3) 2,000 unit capsule 2,000 unit PO DAILY Qty: 90 4RF duloxetine 60 mg capsule,delayed release(DR/EC) See Rx Instructions .ROUTE .COMPLEX Qty: 90 3RF Dose Instruction: Take 1 capsule by mouth once daily Rx Instructions: Take 1 capsule by mouth once daily bupropion HCl 150 mg tablet extended release 24 hr 150 mg PO QAM Qty: 90 3RF levothyroxine 125 mcg tablet 125 mcg PO DAILY Qty: 90 1RF losartan 100 mg tablet 100 mg PO DAILY Qty: 90 3RF ibuprofen [Advil] 200 mg Tablet 400 mg PO PRN PRN Discharge Data Discharge Date/Time-TO BE ENTERED AT DEPARTURE: 08/10/22 07:52 Medical Decision Making 71-year-old female with a past medical history of Crohn's disease, colon cancer followed by colectomy and current ostomy, rheumatoid arthritis on Humira, cholecystectomy, total hysterectomy with salpingo-oophorectomy, high cholesterol, as well as long COVID syndrome with persistent taste lost, word finding difficulty, and brain fog, who presents today with 3 days of abdominal pain. Patient states that 3 days ago she developed mild achy left lower quadrant abdominal pain. It then transitioned to the mid abdominal region and is now epigastric in nature. She denies any vomiting. She states that her ostomy output has been diminished. She denies any blood. She denies any chest pain or shortness of breath. She denies any history of stroke or heart attack. No other complaints at this time. No urinary complaints. No fever or chills. M demonstrates mild achiness and tenderness in the epigastric mid and left lower quadrant regions. Ostomy site is pink and moist with no abnormality clinically. Differential is broad but includes mesenteric adenitis, small intestinal irritation, urine etiology, or pain from adhesions. We will get a CT scan with angiography, treat the patient's pain and nausea, evaluate for concerning etiologies, monitor closely and reassess. Remainder the patient's care was handed during downtime. Please refer to downtime paper chart. Eventually the CT scan returned unremarkable. Patient felt well and felt comfortable going home. Laboratory work-up was stable. Patient did have evidence of urinary tract infection which we have treated with Keflex. I suspect another component of the patient's symptoms is mild gastritis and potentially a mild stomach ulcer. She has been taking additional ibupro fen/Motrin lately, as well as her chronic steroid. Recommend avoidance of this. Will start on home omeprazole at a high dose of 40 mg daily, given prescription for Carafate as well, and recommend dietary change. Discussed red flags for which to return. I have extensively reviewed the treatment plan and discharge instructions with the patient and their family. I have addressed all patient concerns at this time. The patient and family was made aware of what symptoms to monitor for that would warrant a return to the emergency department. Discussed the plan with the patient and family, they demonstrate verbal understanding and agreement with our assessment and plan at this time. The documentation in this chart was dictated using Cert[employer] dictation software. Please excuse any dictation errors. ABDOMEN AND PELVIS: Abdomen: Celiac axis/mesenteric arteries: No evidence of occlusion or significant stenosis. Renal Arteries: No evidence of occlusion or significant stenosis. There is a single renal artery perfusing each kidney. Aorta: No evidence of occlusion or significant stenosis. No aneurysm or dissection. Pelvis: Iliac Arteries: No evidence of occlusion or significant stenosis. Common Femoral Arteries: No evidence of occlusion or significant stenosis. ABDOMEN: Lung bases: Mild dependent atelectasis. Liver: There are areas of decreased attenuation in the liver consistent with fatty infiltration. No measurable mass. Portal, Superior Mesenteric, and Splenic Veins: Unremarkable. Gallbladder and Biliary Tract: Status post cholecystectomy. No biliary ductal dilatation. Pancreas: Normal density, no abnormal calcifications or inflammatory process. Spleen: Normal. Adrenals: No masses seen. Kidneys: Normal size, contour and axis. There may be a small stone in the left kidney. No hydronephrosis is present. There is a small cyst in the midpole of the left kidney. No follow-up is recommended. Bowel: Status post partial colectomy with right lower quadrant colostomy. There is a small unremarkable peristomal hernia with nondilated loops of small bowel present. No evidence of bowel obstruction or bowel wall thickening. Peritoneal Cavity: No ascites, collection or mesenteric inflammatory response. No free air. Lymph Nodes: Within normal limits. Bones: Within normal limits for the patient's age. Soft Tissues: Unremarkable. PELVIS: Bladder: Symmetric distention, no gross wall thickening. Reproductive Organs: Status post hysterectomy. Lymph Nodes: Within normal limits. Bones: Within normal limits. IMPRESSION: 1. No acute abdominal or pelvic process. 2. Incidental findings as described above. 3. Unremarkable CT angiography of the abdomen and pelvis. HPI General Date/Time Provider Initiated Documentation: 08/10/22 04:31 . 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 Patient states that 3 days ago she developed mild achy left lower quadrant abdominal pain. It then transitioned to the mid abdominal region and is now epigastric in nature. She denies any vomiting. She states that her ostomy output has been diminished. She denies any blood. She denies any chest pain or shortness of breath. She denies any history of stroke or heart attack. No other complaints at this time. No urinary complaints. No fever or chills. Related Data Home Medications Medication Instructions Recorded Confirmed folic acid 20 mg capsule 20 mg PO DAILY 05/02/18 05/16/22 cholecalciferol (vitamin D3) 50 2,000 unit PO DAILY #90 caps 05/04/19 05/16/22 mcg (2,000 unit) capsule ibuprofen 200 mg tablet (Advil) 400 mg PO PRN PRN 06/14/20 05/16/22 biotin 5 mg capsule 5 mg PO DAILY 06/01/21 05/16/22 duloxetine 60 mg capsule,delayed See Rx Instructions .Route 10/28/21 05/16/22 release .COMPLEX #90 ea bupropion HCl 150 mg 24 hr tablet, 150 mg PO QAM #90 tabs 10/31/21 05/16/22 extended release alprazolam 0.25 mg tablet See Rx Instructions PO .COMPLEX 11/25/21 05/16/22 PRN anxiety #25 tabs adalimumab 40 mg/0.4 mL 40 mg subcut QWEEK 01/31/22 05/16/22 subcutaneous pen kit hydrochlorothiazide 25 mg tablet 25 mg PO DAILY #90 tab-caps 04/05/22 05/16/22 metronidazole 0.75 % topical cream 1 applic topical BID PRN rosacea 04/05/22 05/16/22 prednisone 1 mg tablet 5 mg PO DAILY 04/05/22 05/16/22 levothyroxine 125 mcg tablet 125 mcg PO DAILY #90 tab-caps 05/18/22 losartan 100 mg tablet 100 mg PO DAILY #90 tab-caps 06/12/22 Previous Rx's Medication Instructions Recorded cholecalciferol (vitamin D3) 50 2,000 unit PO DAILY #90 caps 05/04/19 mcg (2,000 unit) capsule duloxetine 60 mg capsule,delayed See Rx Instructions .Route 10/28/21 release .COMPLEX #90 ea bupropion HCl 150 mg 24 hr tablet, 150 mg PO QAM #90 tabs 10/31/21 extended release alprazolam 0.25 mg tablet See Rx Instructions PO .COMPLEX 11/25/21 PRN anxiety #25 tabs hydrochlorothiazide 25 mg tablet 25 mg PO DAILY #90 tab-caps 04/05/22 levothyroxine 125 mcg tablet 125 mcg PO DAILY #90 tab-caps 05/18/22 losartan 100 mg tablet 100 mg PO DAILY #90 tab-caps 06/12/22 Allergies Allergy/AdvReac Type Severity Reaction Status Date / Time atorvastatin AdvReac LFTS Verified 05/16/22 10:08 fentanyl AdvReac CRAZY Verified 05/16/22 10:08 BEHAVIOR General Stated Complaint: Abd Prob BUSTER: 3 Review of Systems All systems reviewed & are unremarkable except as noted in HPI and below PFSH All Active Problems (Updated 08/11/22 @ 04:05 by Torrey Jenkins DO) Urinary tract infection (Acute) Gastric irritation (Acute) Hypothyroidism, acquired (Acute) Seronegative rheumatoid arthritis (Chronic) on Humira, prednisone. Managed at [facility] [place] [place] Carpal tunnel syndrome of left wrist (Chronic) Anxiety (Chronic) 2020-Rx alprazolam occasional panic-like episodes-drug contract through [facility] Non-alcoholic fatty liver disease (Acute) Vitamin D deficiency (Acute 10/22/16) Polymyalgia rheumatica (Acute 03/29/12) Dr Wood ([facility] [place]- vs seronegative RA) Obesity (Acute 05/15/14) Low grade squamous intraepithelial lesion on cytologic smear of cervix (LGSIL) (Acute 04/11/17) 2015 colpo directed biopsies showed inflammation but no dysplasia. 2017 Pap - low-grade ISH. Negative HPV. Global directed biopsies - low- grade ISH. Vaginal estrogen recommended for 1 year with repeat code testing in 2018. Essential hypertension (Acute 05/15/13) Depressive disorder (Acute) Difficult airway for intubation (Acute) Medical History Crohn's disease (02/01/12) colectomy with ileostomy [facility] [place] [place] hepato/gastro : ileostomy and fibroscan (no liver fibrosis; tx= diet, weight) Endometrial cancer 04/201414. Grade 1, Stage 1. s/p supracervical hysterectomy [facility] [place] [place]. No chemo or radiation required. Yearly paps of cervix recommended. 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 Primary malignant neoplasm of thyroid gland 2011. S/P thyroidectomy. No XRT. Surgical History Dilation and curettage (04/22/14) hysteroscopy and D+C. Final path result: complex endometrial hyperplasia with atypia. S/P cholecystectomy (~2007) S/P colectomy S/P ileostomy (~2005) S/P shoulder surgery S/P JESÚS-BSO (~2013) supracervical JESÚS/BSO at [facility] [place] [place] for endometrial CA stage 1, grade1 S/P thyroidectomy (~2011) Staghorn calculus Status post total bilateral knee replacement Family History Mother , AGE 82 Essential hypertension Hyperlipidemia Father , age 57 Essential hypertension Heart disease Myocardial infarction Stroke Sister Diabetes Essential hypertension Heart disease Pituitary adenoma Asthma Brother Essential hypertension Ulcerative colitis Paternal Grandfather Heart disease Paternal Grandmother Diabetes Sister Diabetes Essential hypertension Depression Asthma Heart disease Alcohol abuse Sister Essential hypertension Heart disease Son Asthma Son Essential hypertension Hyperlipidemia Depression Daughter Asthma Depression Social History Smoking/Tobacco Use Status: Never Second Hand Exposure: Yes Smoking risk assessment performed?: Yes Alcohol Intake: never Drug use: Never Substance use type: does not use Caregiver/Support person: No Household members: spouse Housing: house Number of Children: 3 number of grandchildren: 4 Communication Needs: None Do you need help understanding health information?: Rarely 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 Pets and animals: No Do you think of yourself as: straight/heterosexual What is your relationship status?: How often do you talk on the phone with friends or family?: once per week How often do you get together with friends or relatives?: once per week How often do you attend sikhism or hindu services?: decline to answer Do you belong to any clubs or organized social groups?: yes Panel score (0-1 are the most socially isolated patients): 2 What type of physical activity do you participate in: walking Duration: 30-45 minutes/day Frequency: 3-4 times per week Shelby/Pentecostal: No preference Special shelby needs: No Seatbelt use: always Helmet use: No Drive intox or ride w/intox commercial front load driver: No Do you feel safe in your relationship?: Yes Additional Social history: Children. 1973 Victoria-2 granddaughters, 1975 Chi grandson and granddaughter, 1977 Vic-3 children. Female Reproductive History Menstrual Menopause type: surgical History History 3 Para Hx # Term Pregnancies 3 Multiple births Hx # Pregnancies Ectopic pregnancies AB induced Hx Number of Living Children AB spontaneous Exam Narrative Exam Narrative: 1.Const: Well-nourished, Well-developed, appearing stated age 2.Eyes: PERRL, no conjunctival injection, and symmetrical lids. 3.ENT: Atraumatic external nose and ears. Moist MM. Neck: Symmetric, trachea midline, No thyromegaly. 4.CVS: +S1/S2, No murmurs or gallops. Peripheral pulses 2+ and equal in all extremities. Brisk capillary refill in all extremities. 5.RESP: Unlabored respiratory effort. Clear to auscultation bilaterally. No wheezes rales or rhonchi 6.GI: Soft, nondistended, mild achiness in the epigastric region and mild tenderness in the epigastric mid and left lower quadrant regions. No guarding or rebound. Ostomy site is pink and moist with no tenderness 7.MSK: Normocephalic/Atraumatic, Extremities w/o deformity or ttp No cyanosis or clubbing, Normal movement of all extremities 8.Skin: Warm, Dry. No rashes or lesions. 9.Neuro: email deployment specialist II-XII grossly intact. Sensation grossly intact, no focal neurologic deficits. 10.Psych: (AAO) x3. Appropriate mood and affect Course Vital Signs Vital signs: Vital Signs Temperature 37.1 C 08/10/22 04:30 Pulse 88 08/10/22 04:30 Respiratory Rate 18 08/10/22 04:30 Blood Pressure 174/106 H 08/10/22 04:30 Pulse Oximetry 98 08/10/22 04:30 Temperature 37.1 C 08/10/22 04:30 Temperature Source Temporal Artery Scan 08/10/22 04:30 Pulse 88 08/10/22 04:30 Respiratory Rate 18 08/10/22 04:30 Respiratory Effort 08/10/22 04:33 Blood Pressure 174/106 H 08/10/22 04:30 Blood Pressure Position Sitting 08/10/22 04:30 Pulse Oximetry 98 08/10/22 04:30 Oxygen Delivery Method Room Air 08/10/22 04:30 Oxygen Flow Rate 0 08/10/22 04:30
[2022-08-10 04:51] LABS: Abs Immature Grans 0.04 10^3/uL (0.0-0.06); Absolute Basophil Count 0.07 10^3/uL (0.0-0.2); Absolute Eosinophil Count 0.47 10^3/uL (0.0-0.7); Absolute Lymphocyte Count 2.18 10^3/uL (1.2-3.4); Absolute Monocyte Count 1.03 10^3/uL (0.1-0.8); Absolute Neutrophil Count 8.64 10^3/uL (1.2-6.7); Basophils % 0.6; Eosinophils % 3.8; HCT 42.8 % (36.0-46.0); HGB 14.3 g/dL (11.2-15.7); Immature Grans % 0.3; Lymphocytes % 17.5; MCH 31.5 pg (27.0-33.0); MCHC 33.4 % (32.0-36.0); MCV 94 fL (80-95); MPV 8.8 fL (8.0-11.0); Monocytes % 8.3; Neutrophils % 69.5; Platelet Count 337 10^3/uL (130-400); RBC 4.54 10^6/uL (3.93-5.22); RDW 13.5 % (11.7-14.6); RDW-SD 46.8 fL; WBC 12.43 10^3/uL (4.4-10.8)
[2022-08-10 04:56] LABS: Bilirubin Negative (Negative); Blood Small (Negative); Clarity Sl Cloudy (Clear); Glucose Negative (Negative); Ketones Trace mg/dL (Negative); Leukocyte Esterase Moderate (Negative); Nitrite Negative (Negative); Specific Gravity >= 1.030 (1.005-1.025); Urobilinogen 0.2 EU/dL (Up TO 0.2)
--- NOTE | 2022-08-10 06:20 | DI.CT_ITS ---
Exam(s) CT ABDOMEN PELVIS CTA EXAM: CT ABDOMEN PELVIS CTA CLINICAL HISTORY: hx colectomy Crohn's disease, now LLQ, Epig pain. TECHNIQUE: Imaging Protocol: Axial CT angiography was performed with multi-slice acquisition and m ulti-planar and/or 3D reconstructions. CONTRAST MATERIAL: Intravenous: Omnipaque 350 Contrast volume:100mL Oral: No COMPARISON: CT RENAL COLIC WO CONTRAST from 03/25/2013 FINDINGS: ABDOMEN AND PELVIS: Abdomen: Celiac axis/mesenteric arteries: No evidence of occlusion or significant stenosis. Renal Arteries: No evidence of occlusion or significant stenosis. There is a single renal artery perf using each kidney. Aorta: No evidence of occlusion or significant stenosis. No aneurysm or dissection. Pelvis: Iliac Arteries: No evidence of occlusion or significant stenosis. Common Femoral Arteries: No evidence of occlusion or significant stenosis. ABDOMEN: Lung bases: Mild dependent atelectasis. Liver: There are areas of decreased attenuation in the liver consistent with fatty infiltration. No measurable mass. Portal, Superior Mesenteric, and Splenic Veins: Unremarkable. Gallbladder and Biliary Tract: Status post cholecystectomy. No biliary ductal dilatation. Pancreas: Normal density, no abnormal calcifications or inflammatory process. Spleen: Normal. Adrenals: No masses seen. Kidneys: Normal size, contour and axis. There may be a small stone in the left kidney. No hydronephr osis is present. There is a small cyst in the midpole of the left kidney. No follow-up is recommend ed. Bowel: Status post partial colectomy with right lower quadrant colostomy. There is a small unremarka ble peristomal hernia with nondilated loops of small bowel present. No evidence of bowel obstruction or bowel wall thickening. Peritoneal Cavity: No ascites, collection or mesenteric inflammatory response. No free air. Lymph Nodes: Within normal limits. Bones: Within normal limits for the patient's age. Soft Tissues: Unremarkable. PELVIS: Bladder: Symmetric distention, no gross wall thickening. Reproductive Organs: Status post hysterectomy. Lymph Nodes: Within normal limits. Bones: Within normal limits. IMPRESSION: 1. No acute abdominal or pelvic process. 2. Incidental findings as described above. 3. Unremarkable CT angiography of the abdomen and pelvis. RADIATION DOSE DELIVERED: 823.67mGy.cm Total DLP DATA REPOSITORY: All CT scans at this facility are submitted to the National Radiology Data Registry (NRDR) Dose Index Registry (DIR) with the [employer] (ACR). RADIATION OPTIMIZATION: All CT scans at this facility use at least one of these dose optimization te chniques: automated exposure control; mA and/or kV adjustment per patient size (includes targeted exa ms where dose is matched to clinical indication); or iterative reconstruction.
--- NOTE | 2022-08-10 08:55 | DI.VRAD_ITS ---
PROCEDURE INFORMATION: Exam: CTA Abdomen and Pelvis With Contrast Exam date and time: 08/10/2022 6:06 AM Age: 71 years old Clinical indication: Abdominal pain; Localized; Lower; Prior surgery; Surgery date: 6+ months; Surgery type: PT states h/o cholecystectomy, hysterectomy, colectomy, h/o colorectal CA; Additional info: Llq pain, crohns disease TECHNIQUE: Imaging protocol: Computed tomographic angiography of the abdomen and pelvis with contrast. 3D rendering (Not supervised by radiologist): MIP and/or 3D reconstructed images were created by the technologist. Radiation optimization: All CT scans at this facility use at least one of these dose optimization techniques: automated exposure control; mA and/or kV adjustment per patient size (includes targeted exams where dose is matched to clinical indication); or iterative reconstruction. Contrast material: OMNI 350; Contrast volume: 100 ml; Contrast route: INTRAVENOUS (IV); COMPARISON: No relevant prior studies available. FINDINGS: Aorta: No aortic aneurysm. No aortic dissection. Celiac trunk and mesenteric arteries: No occlusion or significant stenosis. Renal arteries: No occlusion or significant stenosis. Right iliac arteries: No occlusion or significant stenosis. Left iliac arteries: No occlusion or significant stenosis. Liver: Fatty liver. No liver mass. Gallbladder and bile ducts: Cholecystectomy. Normal bile ducts. Pancreas: Unremarkable. No mass. No ductal dilation. Spleen: Unremarkable. No splenomegaly. Adrenal glands: Unremarkable. No mass. Kidneys and ureters: There is a 4 mm nonobstructing calcification in the lower pole of the left kidney. Otherwise both kidneys and ureters are unremarkable. Stomach and bowel: Status post total colectomy with an ileostomy in the right lower quadrant. There is peristomal herniation few small bowel loops. No significant bowel dilatation. No evidence of obstruction. Appendix: No evidence of appendicitis. Intraperitoneal space: Small ascites in the pelvis. No free air. Lymph nodes: Unremarkable. No enlarged lymph nodes. Urinary bladder: Unremarkable. No mass. Reproductive: Hysterectomy. Bones/joints: Moderate degenerative changes are present in the spine. No acute bony abnormality. Soft tissues: Unremarkable. IMPRESSION: 1. No acute abnormality. 2. Fatty liver. 3. Nonobstructing left nephrolithiasis. 4. Small ascites in the pelvis. 5. Right lower quadrant ileostomy with peristomal herniation of a few nondilated small bowel loops. Dictated and Authenticated by: Kenneth Go MD. Ordering:ALEX Hirsch MD
[2022-08-10 09:07] LABS: ALT 25 U/L (14-59); AST 24 U/L (15-37); Albumin 3.4 g/dL (3.4-5.0); Alkaline Phosphatase 72 U/L (46-116); Anion Gap 5.3 mmol/L (3-11); BUN 12 mg/dL (7-18); Bilirubin, Total 0.7 mg/dL (0.2-1.0); CO2 29.7 mmol/L (21.0-32.0); CREATININE 0.8 mg/dL (0.55-1.02); Calcium 9.5 mg/dL (8.5-10.1); Chloride 102 mmol/L (98-107); Estimated GFR 78.72 (mL/min/1.73m2); Glucose 126 mg/dL (74-106); Lipase 429 U/L (73-393); Potassium 3.2 mmol/L (3.5-5.1); Sodium 137 mmol/L (136-145); Total Protein 7.8 g/dL (6.4-8.2); Troponin I < 50 ng/L (<or=60)
[2022-08-10 09:07] LABS: Bacteria Moderate HPF (Negative); C & S Indicated? No/Sq. Contamination; Casts Negative LPF (Negative); Crystals Negative HPF (Negative); Epithelial Cells Many HPF (Negative); Mucus Negative (Negative); WBC 20-50 HPF (0-5)
[2022-08-10] MEDS: Omnipaque 350 MG/ML 100 ML BTL IJ (09:10)
== END 2022-08-10 07:52 | disposition home or self-care (01) ==
LOC: ER 04:29
PROVIDERS: Emergency Provider Student in an Organized Health Care Education/Training Program; PCP Family Medicine
DX: N39.0 Urinary tract infection, site not specified (principal); K31.89 Other diseases of stomach and duodenum; M06.9 Rheumatoid arthritis, unspecified; E78.00 Pure hypercholesterolemia, unspecified; Z85.038 Personal history of other malignant neoplasm of large intestine; Z86.16 Personal history of COVID-19
CPT/HCPCS: 80053; 83690; 93005; 96361; 96374; 96375; 99285; 74174; 81003; 81015; 84484; 85025; 93010; J2270; J3490

== ENCOUNTER 2022-12-14 02:58 | Outpatient (CLI) | payer MEDICARE, SELFPAY ==
[2022-12-14 12:43] LABS: ALT 35 U/L (14-59); AST 27 U/L (15-37); Albumin 3.5 g/dL (3.4-5.0); Alkaline Phosphatase 68 U/L (46-116); Anion Gap 6.9 mmol/L (3-11); BUN 12 mg/dL (7-18); Bilirubin, Total 0.6 mg/dL (0.2-1.0); CO2 31.1 mmol/L (21.0-32.0); Calcium 9.9 mg/dL (8.5-10.1); Calculated LDL 102 mg/dL (<100); Chloride 103 mmol/L (98-107); Cholesterol 192 mg/dL (<200); Estimated GFR 59.86 (mL/min/1.73m2); Glucose 88 mg/dL (74-106); HDL Cholesterol 82 mg/dL (40-60); Potassium 3.2 mmol/L (3.5-5.1); Sodium 141 mmol/L (136-145); Total Protein 7.7 g/dL (6.4-8.2); Triglyceride 41 mg/dL (<150)
== END 2022-12-14 02:59 | disposition home or self-care (01) ==
LOC: LOS 02:58
PROVIDERS: PCP Family Medicine; Visit Provider Family Medicine
DX: I10 Essential (primary) hypertension (principal); Z13.6 Encounter for screening for cardiovascular disorders
CPT/HCPCS: 36415; 80053; 80061

== ENCOUNTER 2023-03-16 02:37 | Outpatient (CLI) | payer MEDICARE, SELFPAY ==
[2023-03-16 10:33] LABS: BUN 19 mg/dL (7-18); CREATININE 0.8 mg/dL (0.55-1.02); Calcium 9.8 mg/dL (8.5-10.1); Chloride 106 mmol/L (98-107); Estimated GFR 78.24 (mL/min/1.73m2); Glucose 101 mg/dL (74-106); Potassium 4.1 mmol/L (3.5-5.1); Sodium 144 mmol/L (136-145)
== END 2023-03-16 02:38 | disposition home or self-care (01) ==
PROVIDERS: PCP Family Medicine; Visit Provider Family Medicine
DX: I10 Essential (primary) hypertension (principal)
CPT/HCPCS: 36415; 80048

== ENCOUNTER 2023-06-14 11:06 | Outpatient (CLI) | payer MEDICARE, SELFPAY ==
--- NOTE | 2023-06-14 10:15 | DI.RAD_ITS ---
Exam(s) XR HIP RT COMPLETE AP PELVIS EXAM: XR HIP RT COMPLETE AP PELVIS CLINICAL HISTORY: R hip pain. TECHNIQUE: 2D digital imaging was performed. Two views COMPARISON: US PELVIS TRANSVAG from 03/23/2014 FINDINGS: BONES: No acute fracture is present. No bony destructive lesion is seen. JOINTS: No dislocation present. Joint spaces are maintained. There is bilateral acetabular spurrin g, greater superiorly. Sclerosis at the pubic symphysis. SOFT TISSUE: Normal surgical clips in pelvis. IMPRESSION: Mild degenerative changes of both hips. DATA REPOSITORY: RADIATION DOSE DELIVERED:
== END 2023-06-14 11:07 | disposition home or self-care (01) ==
LOC: DIORS 11:06
PROVIDERS: PCP Family Medicine; Referring Provider Family Medicine; Visit Provider Student in an Organized Health Care Education/Training Program
DX: M25.559 Pain in unspecified hip (principal); G56.02 Carpal tunnel syndrome, left upper limb; M16.11 Unilateral primary osteoarthritis, right hip
CPT/HCPCS: 99213; 73502

== ENCOUNTER → 2023-07-05 13:33 | Outpatient (BNVA) | payer MEDICARE, SELFPAY | PROVIDERS: PCP Family Medicine; Referring Provider Family Medicine | DX: M16.11 Unilateral primary osteoarthritis, right hip (principal) | CPT/HCPCS: 20611; J1040 ==

== ENCOUNTER 2023-07-14 04:51 | Emergency (ER) | payer MEDICARE, SELFPAY ==
[2023-07-14] VITALS (31 sets, daily range): BP systolic 104–185; BP diastolic 41–94; PULSE 65–95; RESP 14–29; TEMP 37.3; O2SAT 93–99
--- NOTE | 2023-07-14 05:15 | RT.EKG_ITS ---
APPROVED REPORT Exam: Resting ECG Reason for Exam: short of breath Patient Location: E HR:79 bpm ECG Measurements Heart Rate 79 AXIS DC 144 P 12 QRSd 96 QRS 8 QT 411 T 113 QTc 473 Conclusion Sinus rhythm.., V-rate 60- 99 Abnormal T, consider ischemia, lateral leads...T <-0.20mV, I aVL V5 V6 Appropra[address] intervals. No ST segment or T wave abnormlaiteis to suggest occlusive KS.
--- NOTE | 2023-07-14 05:15 | DI.RAD_ITS ---
Exam(s) XR CHEST 2V PA LATERAL EXAM: XR CHEST 2V PA LATERAL CLINICAL HISTORY: short of breath TECHNIQUE: 2D digital imaging was performed of the chest. Two images were obtained. PA and lateral views were obtained. COMPARISON: CR CHEST 2 VIEWS PA,LAT from 07/09/2015 FINDINGS: MEDIASTINUM: Normal. HEART: Normal. PULMONARY VASCULATURE: Normal. LUNGS: Clear. PLEURAL SPACE: No pleural effusion or pneumothorax. BONE:Within normal limits for the patient's age. OTHER FINDINGS:Normal. IMPRESSION: No acute pulmonary findings. DATA REPOSITORY: RADIATION DOSE DELIVERED:
--- NOTE | 2023-07-14 05:21 | ED.GENADUL_ITS ---
Discharge Plan Disposition Patient Disposition: Transfer-Acute Inpatient Care Specific Acute Inpt Facility: [facility] Condition: Critical Discharge Details Chief Complaint: GenMedical Clinical Impression: Acute non-ST elevation myocardial infarction (NSTEMI) Primary Care Provider: Latha Aguirre ED Provider: Elena Goldsmith Home Meds and New Rx's Prescriptions: No Action prednisone 1 mg tablet 2 mg PO DAILY duloxetine 60 mg capsule,delayed release(DR/EC) See Rx Instructions .ROUTE .COMPLEX Qty: 90 3RF Dose Instruction: Take 1 capsule by mouth once daily Rx Instructions: Take 1 capsule by mouth once daily adalimumab 40 mg/0.4 mL pen injector kit 40 mg subcut Q2W amlodipine 5 mg tablet 5 mg PO DAILY Qty: 90 1RF metronidazole 0.75 % cream 1 applic topical BID PRN (Reason: rosacea) Rx Instructions: local application twice a day for rosacea cholecalciferol (vitamin D3) 2,000 unit capsule 2,000 unit PO DAILY Qty: 90 4RF losartan 100 mg tablet 100 mg PO DAILY Qty: 90 3RF alprazolam 0.25 mg tablet See Rx Instructions PO .COMPLEX PRN (Reason: anxiety) Qty: 25 0RF Rx Instructions: PO PRN; 1/2-1 tab daily as needed for anxiety omeprazole 40 mg capsule,delayed release(DR/EC) 40 mg PO DAILY Qty: 90 1RF levothyroxine 125 mcg tablet 125 mcg PO DAILY Qty: 90 1RF celecoxib 200 mg capsule 200 mg PO BID Qty: 60 3RF Medical Decision Making 72yo F with hx hypothyroidism, HTN, rheumatoid arthritis on Humira, anxiety with panic, presenting for general malaise. Symptoms started last night with headache, lightheadedness, chest tightness and shortness of breath, which felt similar to her prior panic attacks. Not relieved by home xanax. Still felt unwell this morning; chest tightness and shortness of breath had resolved but she has persistent malaise, mild headache, and body aches. Has also had large amount of watery stool from her ostomy Of note, did have covid and flu shots yesterday. Hypertensive on arrival, vital signs and physical exam otherwise reassuring. Symptoms may be 2/t vaccine side effects however given age warrants broad workup. EKG NSR, some ischemic changes in lateral leads new compared to prior. Labs reviewed as below, CBC & CMP reassuring with no actionable abnormalities, lipase normal. Troponin markedly elevated at 8984, BNP normal. UA not infected, does have microscopic hematuria which will need outpatient followup. Discussed with [facility] [place] [place] Dr. Martinez [facility] [place] [place] cardiology and accepted for transfer today for cardiac cath; given 600mg plavix load, rousavastatin 20mg, metoprolol 50mg, started on heparin gtt. [facility] [place] [place] will call back when bed is ready. Will continue to trend troponins/EKG while here. Signed out to oncoming physician, a follow-on note will only be written if there is a change in patient status or condition. Medical Records Medical records reviewed: Yes I reviewed the patient's medical records. Lab Data Lab results reviewed: Yes I reviewed the patient's lab results. Labs: Laboratory Tests Range/Units 07/14/23 05:08 WBC (4.4-10.8) 10^3/uL 9.83 RBC (3.93-5.22) 10^6/uL 5.01 Hgb (11.2-15.7) g/dL 15.2 Hct (36.0-46.0) % 46.5 H MCV (80-95) fL 93 MCH (27.0-33.0) pg 30.3 MCHC (32.0-36.0) % 32.7 RDW (11.7-14.6) % 14.1 Plt Count (130-400) 10^3/uL 388 MPV (8.0-11.0) fL 8.9 Immature Gran % 0.5 Neutrophils % 85.1 Lymphocytes % 5.8 Monocytes % 7.4 Eosinophils % 1.0 Basophils % 0.2 Nucleated RBC % (0.0-0.3) % 0.0 Absolute Neutrophils (1.2-6.7) 10^3/uL 8.36 H Absolute Lymphocytes (1.2-3.4) 10^3/uL 0.57 L Absolute Monocytes (0.1-0.8) 10^3/uL 0.73 Absolute Eosinophils (0.0-0.7) 10^3/uL 0.10 Absolute Basophils (0.0-0.2) 10^3/uL 0.02 Sodium (136-145) mmol/L 140 Potassium (3.5-5.1) mmol/L 3.7 Chloride (98-107) mmol/L 104 Carbon Dioxide (21.0-32.0) mmol/L 25.5 Anion Gap (3-11) mmol/L 10.5 BUN (7-18) mg/dL 19 H Creatinine (0.55-1.02) mg/dL 0.8 Est GFR (CKD-EPI 2020) (mL/min/1.73m2) 78.24 Glucose (74-106) mg/dL 129 H Calcium (8.5-10.1) mg/dL 9.7 Magnesium (1.8-2.4) mg/dL 1.6 L Total Bilirubin (0.2-1.0) mg/dL 0.9 AST (15-37) U/L 54 H ALT (14-59) U/L 29 Alkaline Phosphatase (46-116) U/L 88 Troponin I (<or=60) ng/L 8984 H* NT-Pro-B Natriuret Pep (<300) pg/mL 218 Total Protein (6.4-8.2) g/dL 8.1 Albumin (3.4-5.0) g/dL 3.4 Lipase (16-77) U/L 29 Urine Color (Yellow) Yellow Urine Clarity (Clear) Clear Urine pH (5-8) 5.5 Ur Specific [place] (1.005-1.025) >= 1.030 H Urine Protein (Negative) mg/dL 30 H Urine Ketones (Negative) mg/dL Negative Urine Blood (Negative) Large H Urine Nitrite (Negative) Negative Urine Bilirubin (Negative) Negative Urine Urobilinogen (Up to 0.2) mg/dL 0.2 Ur Leukocyte Esterase (Negative) Negative Urine RBC (0-2) HPF 10-20 H Urine WBC (0-5) HPF Negative Ur Epithelial Cells (Negative) HPF Few Urine Crystals (Negative) HPF Negative Urine Bacteria (Negative) HPF Few Urine Casts (Negative) LPF Negative Urine Mucus (Negative) Negative Ur Culture Indicated? No Urine Glucose (Negative) mg/dL Negative HPI General Mode of arrival: ambulatory . Date/Time Provider Initiated Documentation: 07/14/23 05:02 . Limitations to Documentation: no limitations . Information obtained by: patient and family . HPI Narrative: 72yo F with hx hypothyroidism, HTN, rheumatoid arthritis on Humira, anxiety with panic, presenting for general malaise. Symptoms started last night with headache, lightheadedness, chest tightness and shortness of breath, which felt similar to her prior panic attacks. She took a xanax which did not appreciably improve her symptoms. Was eventually able to fall asleep, then when she woke this morning she continued to feel unwell. Chest tightness and shortness of breath had resolved but she has persistent malaise, mild headache, and body aches. Yesterday into today she has also had a large amount of watery stool from her ostomy which is unusual for her. Mild nausea, no vomiting, no abdominal pain. Did get her humeria injection yesterday as well as a flu shot and a covid shot. She is otherwise in her usual state of health with no fevers, chills, rash, dysuria, hematuria, or other concerns. Related Data Home Medications Medication Instructions Recorded Confirmed cholecalciferol (vitamin D3) 50 2,000 unit PO DAILY #90 caps 05/04/19 07/14/23 mcg (2,000 unit) capsule metronidazole 0.75 % topical cream 1 applic topical BID PRN rosacea 04/05/22 07/14/23 losartan 100 mg tablet 100 mg PO DAILY #90 tab-caps 06/12/22 07/14/23 adalimumab 40 mg/0.4 mL 40 mg subcut Q2W 08/16/22 07/14/23 subcutaneous pen kit duloxetine 60 mg capsule,delayed See Rx Instructions .Route 09/29/22 07/14/23 release .COMPLEX #90 ea prednisone 1 mg tablet 2 mg PO DAILY 09/29/22 07/14/23 alprazolam 0.25 mg tablet See Rx Instructions PO .COMPLEX 03/05/23 07/14/23 PRN anxiety #25 tabs amlodipine 5 mg tablet 5 mg PO DAILY #90 tabs 03/23/23 07/14/23 omeprazole 40 mg capsule,delayed 40 mg PO DAILY #90 caps 04/03/23 07/14/23 release levothyroxine 125 mcg tablet 125 mcg PO DAILY #90 tab-caps 05/14/23 07/14/23 celecoxib 200 mg capsule 200 mg PO BID #60 caps 05/22/23 07/14/23 Previous Rx's Medication Instructions Recorded cholecalciferol (vitamin D3) 50 2,000 unit PO DAILY #90 caps 05/04/19 mcg (2,000 unit) capsule losartan 100 mg tablet 100 mg PO DAILY #90 tab-caps 06/12/22 duloxetine 60 mg capsule,delayed See Rx Instructions .Route 09/29/22 release .COMPLEX #90 ea alprazolam 0.25 mg tablet See Rx Instructions PO .COMPLEX 03/05/23 PRN anxiety #25 tabs amlodipine 5 mg tablet 5 mg PO DAILY #90 tabs 03/23/23 omeprazole 40 mg capsule,delayed 40 mg PO DAILY #90 caps 04/03/23 release levothyroxine 125 mcg tablet 125 mcg PO DAILY #90 tab-caps 05/14/23 celecoxib 200 mg capsule 200 mg PO BID #60 caps 05/22/23 Allergies Allergy/AdvReac Type Severity Reaction Status Date / Time atorvastatin AdvReac LFTS Verified 07/14/23 05:39 fentanyl AdvReac CRAZY Verified 07/14/23 05:39 BEHAVIOR General Stated Complaint: GenMedical BUSTER: 3 Review of Systems Narrative: see HPI PFSH All Active Problems (Updated 07/14/23 @ 07:14 by Elena Goldsmith MD) Acute non-ST elevation myocardial infarction (NSTEMI) (Acute) Word finding difficulty (Acute) Class 2 obesity due to excess calories with body mass index (BMI) of 38.0 to 38.9 in adult (Acute) Osteoarthritis of right hip (Acute) DEPO MEDROL 07/05/23 Hypothyroidism, acquired (Acute) Seronegative rheumatoid arthritis (Chronic) on Humira, prednisone. Managed at [facility] [place] [place] Carpal tunnel syndrome of left wrist (Chronic) Anxiety (Chronic) 2020-Rx alprazolam occasional panic-like episodes-drug contract through [facility] Non-alcoholic fatty liver disease (Acute) Vitamin D deficiency (Acute 10/22/16) Polymyalgia rheumatica (Acute 03/29/12) Dr Wood ([facility] [place]- vs seronegative RA) Essential hypertension (Acute 05/15/13) Depressive disorder (Chronic) had side effects with bupropion, tolerating duloxetine. Difficult airway for intubation (Acute) Medical History Crohn's disease (02/01/12) colectomy with ileostomy [facility] [place] [place] hepato/gastro : ileostomy and fibroscan (no liver fibrosis; tx= diet, weight) Endometrial cancer 04/201414. Grade 1, Stage 1. s/p supracervical hysterectomy [facility] [place] [place]. No chemo or radiation required. Yearly paps of cervix recommended. 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 2017 Pap - low-grade ISH. Negative HPV. Global directed biopsies - low- grade ISH. Vaginal estrogen recommended for 1 year with repeat code testing in 2018. Primary malignant neoplasm of colon 2010 - mass distinct from Crohns. Primary malignant neoplasm of thyroid gland 2011. S/P thyroidectomy. No XRT. Surgical History Dilation and curettage (04/22/14) hysteroscopy and D+C. Final path result: complex endometrial hyperplasia with atypia. S/P cholecystectomy (~2007) S/P colectomy S/P ileostomy (~2005) S/P shoulder surgery S/P JESÚS-BSO (~2013) supracervical JESÚS/BSO at [facility] [place] [place] for endometrial CA stage 1, grade1 S/P thyroidectomy (~2011) Staghorn calculus Status post total bilateral knee replacement Family History Mother , AGE 82 Essential hypertension Hyperlipidemia Father , age 57 Essential hypertension Heart disease Myocardial infarction Stroke Sister Diabetes Essential hypertension Heart disease Pituitary adenoma Asthma Brother Essential hypertension Ulcerative colitis Paternal Grandfather Heart disease Paternal Grandmother Diabetes Sister Diabetes Essential hypertension Depression Asthma Heart disease Alcohol abuse Sister Essential hypertension Heart disease Son Asthma Son Essential hypertension Hyperlipidemia Depression Daughter Asthma Depression Social History Smoking/Tobacco Use Status: Never Second Hand Exposure: Yes Smoking risk assessment performed?: Yes Alcohol Intake: never Drug use: Never Substance use type: does not use Caregiver/Support person: No Household members: spouse Housing: house Number of Children: 3 number of grandchildren: 4 Communication Needs: None Do you need help understanding health information?: Never 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 [employer] Pets and animals: No Do you think of yourself as: straight/heterosexual Current gender identity: female What is your relationship status?: How often do you talk on the phone with friends or family?: once per week How often do you get together with friends or relatives?: decline to answer How often do you attend confucianism or church services?: decline to answer Do you belong to any clubs or organized social groups?: no Panel score (0-1 are the most socially isolated patients): 1 What type of physical activity do you participate in: walking Duration: 15-30 minutes/day Frequency: 1-2 times per week Shelby/Mormonism: No preference Special shelby needs: No Seatbelt use: always Helmet use: No Drive intox or ride w/intox driver salesman: No Do you feel safe at home: Yes Do you feel safe in your relationship?: Yes Additional Social history: Children. 1973 Victoria-2 granddaughters, 1975 Chi grandson and granddaughter, 1977 Vic-3 children. Female Reproductive History Menstrual Menopause type: surgical History History 3 Para Hx # Term Pregnancies 3 Multiple births Hx # Pregnancies Ectopic pregnancies AB induced Hx Number of Living Children AB spontaneous Exam Narrative Exam Narrative: General: Alert, well appearing, well nourished, in no acute distress. Head: Normocephalic, atraumatic Neck: Trachea midline, ?Neck supple. ENT: ?MMM.? Cardiac: ?RRR, no murmurs appreciated Resp: No respiratory distress. CTAB. Abd: ?Soft, non-distended, nontender. Ostomy non-tender. : ?No suprapubic tenderness. Extremities: ?No deformities.? No peripheral edema. Neurologic: GCS 15. ? Moves all extremities freely against gravity Course Vital Signs Vital signs: Vital Signs Temperature 37.3 C 07/14/23 04:55 Pulse 78 07/14/23 04:55 Respiratory Rate 18 07/14/23 04:55 Blood Pressure 185/69 H 07/14/23 04:55 Pulse Oximetry 98 07/14/23 04:55 Temperature 37.3 C 07/14/23 04:55 Temperature Source Temporal Artery Scan 07/14/23 04:55 Pulse 78 07/14/23 04:55 Respiratory Rate 18 07/14/23 04:55 Respiratory Effort Normal 07/14/23 04:59 Blood Pressure 185/69 H 07/14/23 04:55 Pulse Oximetry 98 07/14/23 04:55 Oxygen Delivery Method Room Air 07/14/23 04:55 Oxygen Flow Rate 0 07/14/23 04:55 Pain Level 0 07/14/23 04:55 Critical Care Time Critical Care Time Critical Care Time: Yes Total Critical Care Time: 34 Attestation: Due to a high probability of clinically significant, life threatening deterioration, the patient required my highest level of preparedness to intervene emergently and I personally spent this critical care time directly and personally managing the patient. This critical care time included obtaining a history; examining the patient; pulse oximetry; ordering and review of studies; arranging urgent treatment with development of a management plan; evaluation of patient's response to treatment; frequent reassessment; and, discussions with other providers. This critical care time was performed to assess and manage the high probability of imminent, life-threatening deterioration that could result in multi-organ failure. It was exclusive of separately billable procedures.
[2023-07-14] MEDS: Normal Saline 1,000 ML 1000 ML IV (05:28)
[2023-07-14] MEDS: LORazepam 1 MG TAB PO (05:28)
[2023-07-14 05:30] LABS: Abs Immature Grans 0.05 10^3/uL (0.0-0.06); Absolute Basophil Count 0.02 10^3/uL (0.0-0.2); Absolute Lymphocyte Count 0.57 10^3/uL (1.2-3.4); Absolute Monocyte Count 0.73 10^3/uL (0.1-0.8); Absolute Neutrophil Count 8.36 10^3/uL (1.2-6.7); Basophils % 0.2; HCT 46.5 % (36.0-46.0); HGB 15.2 g/dL (11.2-15.7); Immature Grans % 0.5; Lymphocytes % 5.8; MCH 30.3 pg (27.0-33.0); MCHC 32.7 % (32.0-36.0); MCV 93 fL (80-95); MPV 8.9 fL (8.0-11.0); Monocytes % 7.4; Neutrophils % 85.1; Platelet Count 388 10^3/uL (130-400); RBC 5.01 10^6/uL (3.93-5.22); RDW 14.1 % (11.7-14.6); RDW-SD 47.6 fL; WBC 9.83 10^3/uL (4.4-10.8)
[2023-07-14 05:36] LABS: Bilirubin Negative (Negative); Blood Large (Negative); Clarity Clear (Clear); Glucose Negative (Negative); Ketones Negative (Negative); Leukocyte Esterase Negative (Negative); Nitrite Negative (Negative); Specific Gravity >= 1.030 (1.005-1.025); Urobilinogen 0.2 mg/dL (Up to 0.2); pH 5.5 (5-8)
[2023-07-14 05:45] LABS: Bacteria Few HPF (Negative); C & S Indicated? No; Casts Negative LPF (Negative); Crystals Negative HPF (Negative); Epithelial Cells Few HPF (Negative); Mucus Negative (Negative); WBC Negative HPF (0-5)
[2023-07-14 05:54] LABS: ALT 29 U/L (14-59); AST 54 U/L (15-37); Albumin 3.4 g/dL (3.4-5.0); Alkaline Phosphatase 88 U/L (46-116); Anion Gap 10.5 mmol/L (3-11); BUN 19 mg/dL (7-18); Bilirubin, Total 0.9 mg/dL (0.2-1.0); CO2 25.5 mmol/L (21.0-32.0); CREATININE 0.8 mg/dL (0.55-1.02); Calcium 9.7 mg/dL (8.5-10.1); Chloride 104 mmol/L (98-107); Estimated GFR 78.24 (mL/min/1.73m2); Glucose 129 mg/dL (74-106); Lipase 29 U/L (16-77); Magnesium 1.6 mg/dL (1.8-2.4); NT-proBNP 218 pg/mL (<300); Potassium 3.7 mmol/L (3.5-5.1); Sodium 140 mmol/L (136-145); Total Protein 8.1 g/dL (6.4-8.2)
[2023-07-14 05:57] LABS: Troponin I 8984 ng/L (<or=60)
[2023-07-14] MEDS: Aspirin 81 MG CHEW 324 MG CH (06:04)
[2023-07-14] MEDS: Clopidogrel 300 MG TAB PO ×2 (06:06→07:18)
--- NOTE | 2023-07-14 07:00 | RT.EKG_ITS ---
APPROVED REPORT Exam: Resting ECG Reason for Exam: NSTEMI Patient Location: E HR:82 bpm ECG Measurements Heart Rate 82 AXIS NC 154 P -7 QRSd 90 QRS -5 QT 380 T 125 QTc 443 Conclusion Sinus rhythm...normal P axis, V-rate 60- 99 Abnormal T, consider ischemia, lateral leads...T <-0.20mV, I aVL V5 V6 Narrow complex normal sinus rhythm at a rate of 82. Left axis deviation no signs of LVH based on vol tage criteria in aVL. Intervals within normal limits. Lateral T wave inversions lead I and aVL. Mi nor ST segment depressions left lateral chest wall leads appear similar to prior. Prior from earlier this morning. No acute STEMI.
[2023-07-14] MEDS: Metoprolol 50 MG TAB PO (07:18)
[2023-07-14] MEDS: Rosuvastatin 20 MG TAB PO (07:18)
[2023-07-14] MEDS: Heparin in 0.45% NaCl 25,000 UNIT/250 ML BAG 10 UNIT IV (07:22)
[2023-07-14 07:47] LABS: INR 1.1 (0.9-1.1); PTT Activated 24.8 sec (23.6-32.8); Prothrombin Time 11.3 sec (9.1-11.1)
[2023-07-14 07:57] LABS: TSH (W/Ref FT4) 1.57 uIU/mL (0.36-3.74)
[2023-07-14 08:48] LABS: Troponin I 8677 ng/L (<or=60)
--- NOTE | 2023-07-14 12:51 | W.EDPROG ---
Date of service: 07/14/23 Time of Service: 12:52 Medical Decision Making I received signout on this 72-year-old female with dizziness weakness found to have myocardial injury and being treated for an NSTEMI with transfer to cardiology at [facility] [place] [place]. Her troponin down trended. She is still pending transfer. She became agitated. I assessed the patient. She was neurologically intact GCS 15 with 5 out of 5 strength bilateral upper and lower extremities and no pronator drift. No vomiting or headache to suggest posterior circulation CVA. Patient does take alprazolam at home and she advised that if she were at home she would take an alprazolam as she was feeling anxious given her pending transfer. As result we will order 1 mg of IV midazolam. 1:42 PM Repeat troponin slightly improved down to 7000. I updated the patient and her daughter as patient had a bed available at [facility]. Will work on arranging transportation. 3 PM Patient transferred to [facility] [place] [place]. Discharge Plan Disposition Patient Disposition: Transfer-Acute Inpatient Care Specific Acute Inpt Facility: [facility] Condition: Critical Discharge Details Clinical Impression: Acute non-ST elevation myocardial infarction (NSTEMI) Primary Care Provider: Latha Aguirre ED Provider: Elena Goldsmith Home Meds and New Rx's Prescriptions: No Action prednisone 1 mg tablet 2 mg PO DAILY duloxetine 60 mg capsule,delayed release(DR/EC) See Rx Instructions .ROUTE .COMPLEX Qty: 90 3RF Dose Instruction: Take 1 capsule by mouth once daily Rx Instructions: Take 1 capsule by mouth once daily adalimumab 40 mg/0.4 mL pen injector kit 40 mg subcut Q2W amlodipine 5 mg tablet 5 mg PO DAILY Qty: 90 1RF metronidazole 0.75 % cream 1 applic topical BID PRN (Reason: rosacea) Rx Instructions: local application twice a day for rosacea cholecalciferol (vitamin D3) 2,000 unit capsule 2,000 unit PO DAILY Qty: 90 4RF losartan 100 mg tablet 100 mg PO DAILY Qty: 90 3RF alprazolam 0.25 mg tablet See Rx Instructions PO .COMPLEX PRN (Reason: anxiety) Qty: 25 0RF Rx Instructions: PO PRN; 1/2-1 tab daily as needed for anxiety omeprazole 40 mg capsule,delayed release(DR/EC) 40 mg PO DAILY Qty: 90 1RF levothyroxine 125 mcg tablet 125 mcg PO DAILY Qty: 90 1RF celecoxib 200 mg capsule 200 mg PO BID Qty: 60 3RF
[2023-07-14] MEDS: Midazolam 2 MG/2 ML VIAL 1 MG IVP (12:58)
[2023-07-14 13:23] LABS: PTT Activated 71.3 sec (23.6-32.8)
[2023-07-14 13:27] LABS: Troponin I 7325 ng/L (<or=60)
--- NOTE | 2023-07-14 13:42 | NUR.NOTE ---
Nursing Note: Patient's PTT 71.3 per heparin Titration protocol No change in heparin titration at this time.
[2023-07-16 23:10] LABS: Campylobacter PCR Negative (Negative); Salmonella PCR Negative (Negative); Shiga Toxin PCR Negative (Negative); Shigella/Enteroinvasive Ecoli Negative (Negative)
== END 2023-07-14 14:57 | disposition short-term general hospital (02) ==
PROVIDERS: Emergency Medicine; Emergency Provider Student in an Organized Health Care Education/Training Program; PCP Family Medicine
DX: I21.4 Non-ST elevation (NSTEMI) myocardial infarction (principal); F41.9 Anxiety disorder, unspecified; I10 Essential (primary) hypertension; E78.5 Hyperlipidemia, unspecified; E03.9 Hypothyroidism, unspecified; Z85.038 Personal history of other malignant neoplasm of large intestine; Z93.3 Colostomy status
CPT/HCPCS: 123; 80053; 83690; 87505; 93005; 99285; 00123; 71046; 81003; 81015; 83735; 83880; 84443; 84484; 85025; 85610; 85730; 93010; J2250

== ENCOUNTER → 2023-08-17 00:48 | Outpatient (CLI) | payer MEDICARE, SELFPAY ==
[2023-08-17] MEDS: Barium Sulfate 2% W/V-Creamy Vanilla Smoothie 450 ML BTL 900 ML PO (11:43)
--- NOTE | 2023-08-17 13:00 | DI.CT_ITS ---
Exam(s) CT ABDOMEN PELVIS W EXAM: CT ABDOMEN PELVIS W CLINICAL HISTORY: acute LUQ abd pain,? obstruction,R10.12. TECHNIQUE: Imaging Protocol: Axial computed tomography images with coronal and sagittal reformatted images were created and reviewed CONTRAST MATERIAL: Intravenous: Omnipaque-350 100cc Oral: Yes. Oral contrast was also administered for bowel opacification. COMPARISON: CT CT ABDOMEN PELVIS CTA from 08/10/2022 FINDINGS: VISUALIZED LUNG BASES: No nodules nor pleural effusions evident. ABDOMEN: There is no ascites. GI: Again noted is evidence of previous colectomy. There is a right-sided ileostomy again noted. Th ere is no evidence of small-bowel obstruction. All the bowel loops exhibit normal diameters and the oral contrast has reached the right-sided ileostomy bag. There is again noted a hernia sac at the os veronica site which contains nonobstructed and non edematous small bowel loops, as described on the prior study of 1 year ago. LIVER: There are no focal hepatic lesions evident. No dilated intrahepatic ducts. GALLBLADDER/BILIARY: Gallbladder is surgically absent. CBD is not dilated. PANCREAS: No evidence of pancreatic mass nor dilatation of the pancreatic duct. SPLEEN: Spleen is not enlarged. No obvious intrasplenic lesions. Splenic and portal veins are paten t. ADRENALS: There are no significant adrenal masses. KIDNEYS:Right kidney unremarkable. On the left side there is a prominent obstructing calculus in the mid-upper left ureter at L4 level. There is hydronephrosis and hydroureter above this level. The s ize of the obstructing calculus measures 8 mm. There is enhancement of the ureter wall above this le sophie. There are no remaining calculi in the left kidney. There are no additional calculi in the lowe r left ureter and there are no radiopaque calculi seen in the urinary bladder. ABDOMINAL AORTA: Abdominal aorta is not enlarged. LYMPH NODES:There is no retroperitoneal nor paraaortic adenopathy. ABDOMINAL WALL: Right-side peristomal hernia again noted as described above. Contains nonobstructed and non edematous small bowel loops PELVIS: Rectum is oversewn (prior colectomy). LYMPH NODES: There is no intrapelvic nor inguinal adenopathy. REPRODUCTIVE: Uterus surgically absent. No abnormal adnexal masses. No free fluid in the pelvis. URINARY BLADDER: No calculi nor obvious masses evident OSSEOUS: No fractures and no significant osseous lesions. IMPRESSION: 1. The main finding here is an obstructing 8 millimeter calculus in the mid left ureter at L4 level w ith dilatation of the left collecting system above this level. There are no other remaining calculi in the ipsilateral left nor opposite-right kidney, and there are no radiopaque calculi in the urinary bladder. 2. Again noted is evidence of previous colectomy with right-sided ileostomy. There is again noted a peristomal hernia which contains nonobstructed and non edematous bowel loops and there is no evidence of small-bowel obstruction. Indeed, the oral contrast has reached the ostomy bag. 3. 4. RADIATION DOSE DELIVERED: 1,304.05mGy.cm Total DLP DATA REPOSITORY: All CT scans at this facility are submitted to the National Radiology Data Registry (NRDR) Dose Index Registry (DIR) with the [employer] (ACR). RADIATION OPTIMIZATION: All CT scans at this facility use at least one of these dose optimization te chniques: automated exposure control; mA and/or kV adjustment per patient size (includes targeted exa ms where dose is matched to clinical indication); or iterative reconstruction.
[2023-08-17] MEDS: Omnipaque 350 MG/ML 500 ML BTL-Imaging package 100 ML IJ (13:07)
[2023-08-17] MEDS: Normal Saline - Diluent 50 ML VIAL IJ (13:08)
== END ==
PROVIDERS: PCP Family Medicine; Visit Provider Nurse Practitioner Family
DX: R10.12 Left upper quadrant pain (principal); Z90.49 Acquired absence of other specified parts of digestive tract; N20.1 Calculus of ureter
CPT/HCPCS: 74177

== ENCOUNTER 2023-08-23 08:06 | Outpatient (CLI) | payer MEDICARE, SELFPAY ==
--- NOTE | 2023-08-23 08:00 | RT.EKG_ITS ---
APPROVED REPORT Exam: Resting ECG Reason for Exam: CAD Patient Location: O HR:66 bpm ECG Measurements Heart Rate 66 AXIS WV 169 P -7 QRSd 99 QRS -6 QT 417 T 94 QTc 437 Conclusion Sinus rhythm...normal P axis, V-rate 50- 99 Nonspecific T abnormalities, lateral leads...T <-0.10mV, I aVL V5 V6 I have reviewed and interpreted ECG and agree with software generated interpretation.
== END 2023-08-23 08:07 | disposition home or self-care (01) ==
LOC: DI.CARD 08:07
PROVIDERS: PCP Family Medicine; Visit Provider Internal Medicine Interventional Cardiology
DX: I25.10 Atherosclerotic heart disease of native coronary artery without angina pectoris (principal)
CPT/HCPCS: 93010

== ENCOUNTER → 2023-08-23 10:53 | Outpatient (BNVA) | payer MEDICARE, SELFPAY | PROVIDERS: PCP Family Medicine; Referring Provider Family Medicine; Visit Provider Internal Medicine Interventional Cardiology | DX: I10 Essential (primary) hypertension (principal); N20.0 Calculus of kidney; I25.2 Old myocardial infarction; I25.10 Atherosclerotic heart disease of native coronary artery without angina pectoris | CPT/HCPCS: 93005; 99213 ==

== ENCOUNTER 2023-09-20 01:44 | Outpatient (CLI) | payer MEDICARE, SELFPAY ==
[2023-09-20 11:43] LABS: Abs Immature Grans 0.02 10^3/uL (0.0-0.06); Absolute Basophil Count 0.06 10^3/uL (0.0-0.2); Absolute Eosinophil Count 0.21 10^3/uL (0.0-0.7); Absolute Lymphocyte Count 1.64 10^3/uL (1.2-3.4); Absolute Neutrophil Count 3.92 10^3/uL (1.2-6.7); Basophils % 0.9; Eosinophils % 3.3; HCT 43.3 % (36.0-46.0); HGB 14.2 g/dL (11.2-15.7); Immature Grans % 0.3; Lymphocytes % 25.8; MCHC 32.8 % (32.0-36.0); MCV 95 fL (80-95); MPV 8.3 fL (8.0-11.0); Monocytes % 7.9; Neutrophils % 61.8; Platelet Count 329 10^3/uL (130-400); RBC 4.58 10^6/uL (3.93-5.22); RDW 15.6 % (11.7-14.6); RDW-SD 54.1 fL; WBC 6.35 10^3/uL (4.4-10.8)
[2023-09-20 12:14] LABS: C-Reactive Protein < 0.50 mg/dL (<or=0.5)
[2023-09-20 12:17] LABS: ALT 30 U/L (14-59); AST 27 U/L (15-37); Albumin 3.6 g/dL (3.4-5.0); Alkaline Phosphatase 76 U/L (46-116); Anion Gap 6.9 mmol/L (3-11); BUN 12 mg/dL (7-18); Bilirubin, Total 0.6 mg/dL (0.2-1.0); CO2 31.1 mmol/L (21.0-32.0); CREATININE 0.8 mg/dL (0.55-1.02); Calcium 10.2 mg/dL (8.5-10.1); Chloride 105 mmol/L (98-107); Estimated GFR 78.24 (mL/min/1.73m2); Glucose 109 mg/dL (74-106); Potassium 3.7 mmol/L (3.5-5.1); Sodium 143 mmol/L (136-145)
== END 2023-09-20 01:45 | disposition home or self-care (01) ==
PROVIDERS: PCP Family Medicine; Visit Provider Internal Medicine
DX: K76.0 Fatty (change of) liver, not elsewhere classified (principal); M06.0A Rheumatoid arthritis without rheumatoid factor, other specified site
CPT/HCPCS: 36415; 80053; 85025; 86140

== ENCOUNTER 2023-10-21 00:08 | Emergency (ER) | payer MEDICARE, SELFPAY ==
[2023-10-21] VITALS (45 sets, daily range): BP systolic 141–192; BP diastolic 58–86; PULSE 63–87; RESP 20; TEMP 36.6; O2SAT 90–100
--- NOTE | 2023-10-21 | RT.EKG_ITS ---
APPROVED REPORT Exam: Resting ECG Reason for Exam: sob Patient Location: E HR:80 bpm ECG Measurements Heart Rate 80 AXIS AL 148 P 5 QRSd 98 QRS 5 QT 434 T 82 QTc 503 Conclusion Sinus rhythm...normal P axis, V-rate 60- 99 Prolonged QT interval...QTc >500mS Physician: no stemi
--- NOTE | 2023-10-21 00:23 | W.ED.GENAD ---
Discharge Plan Disposition Patient Disposition: Transfer-Acute Inpatient Care Specific Acute Inpt Facility: [facility] Condition: Good Discharge Details Chief Complaint: Abd Prob Clinical Impression: Kidney stone on left side Primary Care Provider: Latha Aguirre ED Provider: Torrey Jenkins Home Meds and New Rx's Prescriptions: No Action prednisone 1 mg tablet 2 mg PO DAILY duloxetine 60 mg capsule,delayed release(DR/EC) See Rx Instructions .ROUTE .COMPLEX Qty: 90 3RF Dose Instruction: Take 1 capsule by mouth once daily Rx Instructions: Take 1 capsule by mouth once daily adalimumab 40 mg/0.4 mL pen injector kit 40 mg subcut Q2W gwdacuyrdnwj-Ho-lbvj-minerals 18-0.4 mg tablet PO clopidogrel 75 mg tablet 75 mg PO DAILY Qty: 90 3RF rosuvastatin 20 mg tablet 20 mg PO QHS Qty: 90 3RF alprazolam 0.25 mg tablet See Rx Instructions PO .COMPLEX PRN (Reason: anxiety) Qty: 25 0RF Rx Instructions: PO PRN; 1/2-1 tab daily as needed for anxiety metoprolol succinate 50 mg tablet extended release 24 hr 50 mg PO DAILY Qty: 90 3RF amlodipine 5 mg tablet 5 mg PO BID Qty: 180 3RF cholecalciferol (vitamin D3) 2,000 unit capsule 2,000 unit PO DAILY Qty: 90 4RF levothyroxine 125 mcg tablet 125 mcg PO DAILY Qty: 90 1RF aspirin 81 mg tablet,chewable 81 mg PO DAILY nitroglycerin 0.4 mg tablet, sublingual 0.4 mg sublingual Q5M PRN Rx Instructions: do not exceed 3 doses per episode omeprazole 40 mg capsule,delayed release(DR/EC) 40 mg PO DAILY Qty: 90 1RF HPI General Date/Time Provider Initiated Documentation: 10/21/23 00:12. HPI Narrative: This is a very pleasant 72-year-old female with a past medical history of Crohn's disease, colon cancer followed by colectomy and current ostomy, rheumatoid arthritis on Humira,, cholecystectomy, total hysterectomy with salpingo-oophorectomy, high cholesterol, previous long COVID, previous NSTEMI with stent placed in June 2023, and previous kidney stones presents today for left flank pain. Patient states that she has a known left-sided kidney stone, however she had not regularly had pain. That changed when she developed left-sided flank pain this morning when she woke up. This continued throughout the day and has become somewhat severe. She denies vomiting or diarrhea. She denies chest pain. She does admit to having some mild shortness of breath because of the pain though. She denies any fever or chills. She states that this feels worse than her previous kidney stone. No other complaints at this time. No other modifying factors. Related Data Home Medications Medication Instructions Recorded Confirmed cholecalciferol (vitamin D3) 50 2,000 unit PO DAILY #90 caps 05/04/19 10/12/23 mcg (2,000 unit) capsule adalimumab 40 mg/0.4 mL 40 mg subcut Q2W 08/16/22 10/12/23 subcutaneous pen kit duloxetine 60 mg capsule,delayed See Rx Instructions .Route 09/29/22 10/12/23 release .COMPLEX #90 ea prednisone 1 mg tablet 2 mg PO DAILY 09/29/22 10/12/23 levothyroxine 125 mcg tablet 125 mcg PO DAILY #90 tab-caps 05/14/23 10/12/23 aspirin 81 mg chewable tablet 81 mg PO DAILY 07/17/23 10/12/23 nitroglycerin 0.4 mg sublingual 0.4 mg sublingual Q5M PRN 07/17/23 10/12/23 tablet alprazolam 0.25 mg tablet See Rx Instructions PO .COMPLEX 07/18/23 10/12/23 PRN anxiety #25 tabs clopidogrel 75 mg tablet 75 mg PO DAILY #90 tabs 07/18/23 10/12/23 xhmmpkpddccp-Mq-xpsz-minerals 18 tab PO 07/18/23 10/12/23 mg-0.4 mg tablet rosuvastatin 20 mg tablet 20 mg PO QHS #90 tabs 07/18/23 10/12/23 amlodipine 5 mg tablet 5 mg PO BID #180 tabs 08/23/23 10/12/23 omeprazole 40 mg capsule,delayed 40 mg PO DAILY #90 caps 09/13/23 10/12/23 release metoprolol succinate 50 mg 50 mg PO DAILY #90 tabs 10/12/23 10/12/23 tablet,extended release 24 hr Previous Rx's Medication Instructions Recorded cholecalciferol (vitamin D3) 50 2,000 unit PO DAILY #90 caps 10/06/19 mcg (2,000 unit) capsule duloxetine 60 mg capsule,delayed See Rx Instructions .Route 09/29/22 release .COMPLEX #90 ea levothyroxine 125 mcg tablet 125 mcg PO DAILY #90 tab-caps 05/14/23 alprazolam 0.25 mg tablet See Rx Instructions PO .COMPLEX 07/18/23 PRN anxiety #25 tabs clopidogrel 75 mg tablet 75 mg PO DAILY #90 tabs 07/18/23 rosuvastatin 20 mg tablet 20 mg PO QHS #90 tabs 07/18/23 amlodipine 5 mg tablet 5 mg PO BID #180 tabs 08/23/23 omeprazole 40 mg capsule,delayed 40 mg PO DAILY #90 caps 09/13/23 release metoprolol succinate 50 mg 50 mg PO DAILY #90 tabs 10/12/23 tablet,extended release 24 hr Allergies Allergy/AdvReac Type Severity Reaction Status Date / Time atorvastatin AdvReac LFTS Verified 10/12/23 09:45 fentanyl AdvReac CRAZY Verified 10/12/23 09:45 BEHAVIOR General Stated Complaint: Abd Prob BUSTER: 3 Review of Systems All systems reviewed & are unremarkable except as noted in HPI and below Exam Narrative Exam Narrative: 1.Const: Well-nourished, Well-developed, appearing stated age 2.Eyes: PERRL, no conjunctival injection, and symmetrical lids. 3.ENT: Atraumatic external nose and ears. Moist MM. Neck: Symmetric, trachea midline, No thyromegaly. 4.CVS: +S1/S2, No murmurs or gallops. Peripheral pulses 2+ and equal in all extremities. Brisk capillary refill in all extremities. 5.RESP: Unlabored respiratory effort. Clear to auscultation bilaterally. No wheezes rales or rhonchi 6.GI: Soft, Nontender/Nondistended, No hepatosplenomegaly. No guarding or rebound. No epigastric pain, no abdominal pain, no CVA tenderness. 7.MSK: Normocephalic/Atraumatic, Extremities w/o deformity or ttp No cyanosis or clubbing, Normal movement of all extremities 8.Skin: Warm, Dry. No rashes or lesions. 9.Neuro: charge histotechnologist II-XII grossly intact. Sensation grossly intact, no focal neurologic deficits. 10.Psych: (AAO) x3. Appropriate mood and affect Course Vital Signs Vital signs: Vital Signs Temperature 36.6 C 10/21/23 00:13 Pulse 74 10/21/23 00:13 Respiratory Rate 20 10/21/23 00:13 Blood Pressure 192/73 H 10/21/23 00:13 Pulse Oximetry 97 10/21/23 00:13 Temperature 36.6 C 10/21/23 00:13 Pulse 74 10/21/23 00:13 Respiratory Rate 20 10/21/23 00:13 Respiratory Effort Normal, Short of Breath 10/21/23 00:16 Blood Pressure 192/73 H 10/21/23 00:13 Pulse Oximetry 97 10/21/23 00:13 Pain Level 10 10/21/23 00:13 Medical Decision Making This is a very pleasant 72-year-old female with a past medical history of Crohn's disease, colon cancer followed by colectomy and current ostomy, rheumatoid arthritis on Humira,, cholecystectomy, total hysterectomy with salpingo-oophorectomy, high cholesterol, previous long COVID, previous NSTEMI with stent placed in June 2023, and previous kidney stones presents today for left flank pain. Patient states that she has a known left-sided kidney stone, however she had not regularly had pain. That changed when she developed left-sided flank pain this morning when she woke up. This continued throughout the day and has become somewhat severe. She denies diarrhea but has been vomiting throughout the day. She denies chest pain. She does admit to having some mild shortness of breath because of the pain though. She denies any fever or chills. She states that this feels worse than her previous kidney stone. No other complaints at this time. No other modifying factors. Exam demonstrates well-appearing female who does appear to be in mild distress. Left-sided abdominal pain is not reproducible, no reproducible flank pain, however her pain is notably persistent. She is nauseous and dry heaving. Differential is highest for urolithiasis, infection is of concern. Cardiac etiology seems less likely given that she feels that this feels nothing at all like her previous NSTEMI. EKG shows no evidence of STEMI or significant abnormality. Will treat the patient's pain, get a CT scan of both the chest and abdomen to evaluate for stone presence, monitor closely gently rehydrate and reassess. 3:03 AM Laboratory workup demonstrates mild white count, no bandemia. Electrolytes normal, renal function good. Urinalysis shows blood and ketones but no evidence of nitrites leuk esterase or UTI. Patient's pain now controlled with 8 mg of morphine, Ofirmev, Zofran and Flomax. Patient still has pain but it is improved. We have no urology here for the weekend. CT scan shows an 8 mm obstructing stone with hydroureter and hydronephrosis on the left. Mild perinephric fat stranding. Discussed the case with [facility] urology Dr. Pickard, he recommends ER to ER transfer for definitive management and stenting and potential lithotripsy. EMS does not feel comfortable with the current weather conditions transferring the patient, and will reevaluate at 7 AM for planned transfer. I have extensively reviewed the treatment plan with the patient. I have addressed all patient concerns at this time. I have also discussed the plan with the admitting physician and they agree with the current assessment and plan and have agreed to assume responsibility for the patient. All parties demonstrate verbal understanding and agreement with our assessment and plan at this time. The documentation in this chart was dictated using [employer] dictation software. Please excuse any dictation errors. At time of transfer the patient was reassessed and continued to demonstrate No signs of acute respiratory distress requiring intubation, hemodynamic instability requiring pressor support, or rapidly declining mental status. FINDINGS: Lungs: Unremarkable. No consolidation. No masses. Pleural spaces: Unremarkable. No pneumothorax. No pleural effusion. Heart: Unremarkable. No cardiomegaly. No pericardial effusion. Coronary arteries: Coronary artery atherosclerosis is noted. Lymph nodes: Unremarkable. No enlarged lymph nodes. Vasculature: Unremarkable. No aortic aneurysm. Bones/joints: Unremarkable. No acute fracture. Soft tissues: Unremarkable. IMPRESSION: No acute findings. PROCEDURE INFORMATION: Exam: CT Abdomen And Pelvis Without Contrast Exam date and time: 10/21/2023 12:56 AM Age: 72 years old Clinical indication: Shortness of breath; Patient HX: Left flank pain, HX of stone, SOB FINDINGS: Diaphragm: There is a small hiatal hernia. Liver: Normal. No mass. Gallbladder and bile ducts: Cholecystectomy Pancreas: Normal. No ductal dilation. Spleen: Normal. No splenomegaly. Adrenal glands: Normal. No mass. Kidneys and ureters: Moderate left-sided hydronephrosis, with perinephric fat stranding and leftsided hydroureter. There is an 8 mm stone within the distal left ureter. Nonobstructive nephrolithiasis on the right. Stomach and bowel: There is a right lower quadrant ostomy. Appendix: No evidence of appendicitis. Intraperitoneal space: Unremarkable. No free air. No significant fluid collection. Vasculature: Unremarkable. No abdominal aortic aneurysm. Lymph nodes: Unremarkable. No enlarged lymph nodes. Urinary bladder: Unremarkable as visualized. Reproductive: Unremarkable as visualized. Bones/joints: Unremarkable. No acute fracture. Soft tissues: Unremarkable. IMPRESSION: 1. Moderate left-sided hydronephrosis, with perinephric fat stranding and left-sided hydroureter. There is an 8 mm stone within the distal left ureter. 2. Nonobstructive nephrolithiasis on the right. Thank you for allowing us to participate in the care of your patient. Dictated and Authenticated by: Jamin Flowers MD 10/21/2023 2:17 AM Eastern Time ([place] & [place]) Quality:SDOH Health Related Social Needs: No Data to Display PFSH All Active Problems (Updated 10/21/23 @ 03:06 by Torrey Jenkins DO) Kidney stone on left side (Acute) Acquired deformity of right foot (Acute) CAD (coronary artery disease) (Chronic) Ureteral obstruction, left (Acute) 8mm obstructing stone, hydronephrosis Word finding difficulty (Acute) Class 2 obesity due to excess calories with body mass index (BMI) of 38.0 to 38.9 in adult (Acute) Osteoarthritis of right hip (Acute) DEPO MEDROL 07/05/23 Hypothyroidism, acquired (Acute) Seronegative rheumatoid arthritis (Chronic) on Humira, prednisone. Managed at [facility] Carpal tunnel syndrome of left wrist (Chronic) Anxiety (Chronic) 2020-Rx alprazolam occasional panic-like episodes-drug contract through [facility] Non-alcoholic fatty liver disease (Acute) Vitamin D deficiency (Acute 10/22/16) Polymyalgia rheumatica (Acute 03/29/12) Dr Wood ([facility] [place]- vs seronegative RA) Essential hypertension (Acute 05/15/13) Depressive disorder (Chronic) had side effects with bupropion, tolerating duloxetine. Difficult airway for intubation (Acute) Medical History History of COVID-19 10/2020-URI symptoms decreased taste and smell Low grade squamous intraepithelial lesion on cytologic smear of cervix (LGSIL) (04/11/17) 2015 colpo directed biopsies showed inflammation but no dysplasia. 2017 Pap - low-grade ISH. Negative HPV. Global directed biopsies - low-grade ISH. Vaginal estrogen recommended for 1 year with repeat code testing in 2018. 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 S/P thyroidectomy. No XRT. Endometrial cancer 04/201414. Grade 1, Stage 1. s/p supracervical hysterectomy [facility]. No chemo or radiation required. Yearly paps of cervix recommended. Hyperlipidemia Primary malignant neoplasm of colon 2010 - mass distinct from Crohns. Surgical History S/P coronary artery stent placement (06/2023) mid segment of LAD - 1x FIDELINA Staghorn calculus S/P JESÚS-BSO (~2013) supracervical JESÚS/BSO at [facility] for endometrial CA stage 1, grade1 S/P cholecystectomy (~2007) S/P shoulder surgery Status post total bilateral knee replacement S/P thyroidectomy (~2011) S/P ileostomy (~2005) S/P colectomy Dilation and curettage (04/22/14) hysteroscopy and D+C. Final path result: complex endometrial hyperplasia with atypia. Family History Mother , AGE 82 Essential hypertension Hyperlipidemia Father , age 57 Essential hypertension Heart disease Myocardial infarction Stroke Sister Diabetes Essential hypertension Heart disease Pituitary adenoma Asthma Brother Essential hypertension Ulcerative colitis Paternal Grandfather Heart disease Paternal Grandmother Diabetes Sister Diabetes Essential hypertension Depression Asthma Heart disease Alcohol abuse Sister Essential hypertension Heart disease Son Asthma Son Essential hypertension Hyperlipidemia Depression Daughter Asthma Depression Social History (Updated 10/20/23 @ 11:01 by Desiree Jesus) Smoking/Tobacco Use Status: Never Second Hand Exposure: Yes Smoking risk assessment performed?: Yes Alcohol Intake: never Drug use: Never Substance use type: does not use Adopted: No Caregiver/Support person: No Household members: spouse Housing: house Number of Children: 3 number of grandchildren: 4 Communication Needs: None Do you need help understanding health information?: Rarely 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 [employer] Pets and animals: No Do you think of yourself as: decline to answer Current gender identity: female and decline to answer What is your relationship status?: How often do you talk on the phone with friends or family?: once per week How often do you get together with friends or relatives?: once per week How often do you attend congregational or baptism services?: decline to answer Do you belong to any clubs or organized social groups?: decline to answer Panel score (0-1 are the most socially isolated patients): 1 Shelby/Anglican: No preference Special shelby needs: No Seatbelt use: always Helmet use: No Drive intox or ride w/intox moving van driver: No Firearms in home: No Do you feel safe at home: Yes Do you feel safe in your relationship?: Yes Victim of physical abuse: No Victim of emotional abuse: No Victim of sexual abuse: No Additional Social history: Children. 1973 Victoria-2 granddaughters, 1975 Chi grandson and granddaughter, 1977 Vic-3 children. Female Reproductive History Menstrual Menopause type: surgical History History 3 Para Hx # Term Pregnancies 3 Multiple births Hx # Pregnancies Ectopic pregnancies AB induced Hx Number of Living Children AB spontaneous
[2023-10-21 00:31] LABS: Abs Immature Grans 0.05 10^3/uL (0.0-0.06); Absolute Eosinophil Count 0.14 10^3/uL (0.0-0.7); Absolute Lymphocyte Count 2.76 10^3/uL (1.2-3.4); Absolute Neutrophil Count 10.68 10^3/uL (1.2-6.7); Basophils % 0.5; Eosinophils % 0.9; HCT 44.6 % (36.0-46.0); Immature Grans % 0.3; Lymphocytes % 18.3; MCH 31.6 pg (27.0-33.0); MCHC 33.6 % (32.0-36.0); MCV 94 fL (80-95); MPV 8.5 fL (8.0-11.0); Monocytes % 9.3; Neutrophils % 70.7; Platelet Count 337 10^3/uL (130-400); RBC 4.74 10^6/uL (3.93-5.22); RDW 14.3 % (11.7-14.6); RDW-SD 50.2 fL
[2023-10-21 00:33] LABS: Absolute Basophil Count 0.08 10^3/uL (0.0-0.2)
[2023-10-21] MEDS: ACETAMINOPHEN 1,000 MG/100 ML BTL 400 MG IVPB (00:36)
[2023-10-21] MEDS: MORPHine 4 MG/ML SYR IVP ×2 (00:36→01:11)
[2023-10-21] MEDS: Tamsulosin 0.4 MG CAPCR PO (00:36)
[2023-10-21] MEDS: Normal Saline 500 ML IV (00:36)
[2023-10-21] MEDS: Ondansetron 4 MG/2 ML VIAL IVP (00:36)
[2023-10-21 00:42] LABS: Lipase 25 U/L (16-77)
[2023-10-21 00:49] LABS: ALT 23 U/L (14-59); AST 25 U/L (15-37); Albumin 3.8 g/dL (3.4-5.0); Alkaline Phosphatase 88 U/L (46-116); Anion Gap 14.1 mmol/L (3-11); BUN 16 mg/dL (7-18); Bilirubin, Total 0.5 mg/dL (0.2-1.0); CO2 23.9 mmol/L (21.0-32.0); Chloride 100 mmol/L (98-107); Estimated GFR 59.86 (mL/min/1.73m2); Glucose 147 mg/dL (74-106); Potassium 3.4 mmol/L (3.5-5.1); Sodium 138 mmol/L (136-145); Total Protein 8.2 g/dL (6.4-8.2); Troponin I < 50 ng/L (< or =60)
--- NOTE | 2023-10-21 01:07 | DI.CT_ITS ---
Exam(s) CT CHEST/ABD/PEL WO EXAM: CT CHEST/ABD/PEL WO CLINICAL HISTORY: left flank pain, hx of stone, SOB. TECHNIQUE: Imaging Protocol: Axial computed tomography images with coronal and sagittal reformatted images were created and reviewed CONTRAST MATERIAL: Intravenous: Omnipaque 350 Contrast volume:100 ml Oral: no COMPARISON: CR XR CHEST 2V PA LATERAL from 07/14/[address] ABDOMEN PELVIS W from 08/17/2023 FINDINGS: CHEST: Tracheobronchial tree: Patent where visualized. Pulmonary parenchyma: No consolidation or dominant measurable mass. Pleura: No effusion or pneumothorax. Lymph nodes: Within normal limits. Aorta: Thoracic portion non-dilated. Heart: Enlarged. No pericardial effusion. Coronary artery calcifications. Bones: Degenerative changes.. No lytic or blastic lesions.No compression fractures. Soft tissues: Unremarkable. ABDOMEN and PELVIS: Liver: Normal density. No measurable mass. Gallbladder and biliary tract: Status post cholecystectomy. No biliary dilatation. Pancreas: Normal density, no abnormal calcifications or inflammatory process. Spleen: Normal. Kidneys: Normal size, contour and axis. Moderate left hydronephrosis secondary to an [address] one at the distal left ureter. Mild perinephric stranding. Additional tiny nonobstructing right-donte ed renal stone. No suspicious masses seen. Adrenal glands: No masses seen. Aorta: Abdominal portion non-dilated. Lymph nodes: Within normal limits. Soft tissues: Right-sided ostomy. Stable appearance parastomal hernia containing loops of nonobstruc coleman bowel as well as fat. Bladder: Unremarkable. Bowel: Status post colectomy. No obstruction or bowel wall thickening. Peritoneal cavity: No ascites. No focal collection. No mesenteric inflammatory response. Bones: Unremarkable for age. Reproductive organs: Status post hysterectomy. IMPRESSION: No acute abnormality in the chest. Moderate left hydronephrosis secondary to an 8 millimeter stone just above the ureterovesical junctio n. Stable appearance ileostomy and parastomal hernia. No acute bowel abnormality. RADIATION DOSE DELIVERED: Total DLP DATA REPOSITORY: All CT scans at this facility are submitted to the National Radiology Data Registry (NRDR) Dose Index Registry (DIR) with the [employer] (ACR). RADIATION OPTIMIZATION: All CT scans at this facility use at least one of these dose optimization te chniques: automated exposure control; mA and/or kV adjustment per patient size (includes targeted exa ms where dose is matched to clinical indication); or iterative reconstruction.
[2023-10-21 01:42] LABS: Bilirubin Negative (Negative); Blood Moderate (Negative); Clarity Clear (Clear); Glucose Negative (Negative); Ketones 15 mg/dL (Negative); Leukocyte Esterase Negative (Negative); Nitrite Negative (Negative); Specific Gravity 1.025 (1.005-1.025); Urobilinogen 0.2 mg/dL (Up to 0.2); pH 6.5 (5-8)
[2023-10-21 01:45] LABS: Bacteria Rare HPF (Negative); Casts Negative LPF (Negative); Crystals Negative HPF (Negative); Epithelial Cells Rare HPF (Negative); Mucus Negative (Negative); WBC Negative HPF (0-5)
[2023-10-21 01:46] LABS: C & S Indicated? No
--- NOTE | 2023-10-21 02:18 | DI.VRAD_ITS ---
PROCEDURE INFORMATION: Exam: CT Chest Without Contrast; Diagnostic Exam date and time: 10/21/2023 12:56 AM Age: 72 years old Clinical indication: Shortness of breath; Patient HX: Left flank pain, HX of stone, SOB TECHNIQUE: Imaging protocol: Diagnostic computed tomography of the chest without contrast. COMPARISON: CR XR CHEST 2V PA LATERAL 07/14/2023 5:55 AM FINDINGS: Lungs: Unremarkable. No consolidation. No masses. Pleural spaces: Unremarkable. No pneumothorax. No pleural effusion. Heart: Unremarkable. No cardiomegaly. No pericardial effusion. Coronary arteries: Coronary artery atherosclerosis is noted. Lymph nodes: Unremarkable. No enlarged lymph nodes. Vasculature: Unremarkable. No aortic aneurysm. Bones/joints: Unremarkable. No acute fracture. Soft tissues: Unremarkable. IMPRESSION: No acute findings. PROCEDURE INFORMATION: Exam: CT Abdomen And Pelvis Without Contrast Exam date and time: 10/21/2023 12:56 AM Age: 72 years old Clinical indication: Shortness of breath; Patient HX: Left flank pain, HX of stone, SOB TECHNIQUE: Imaging protocol: Computed tomography of the abdomen and pelvis without contrast. COMPARISON: CT ABDOMEN PELVIS W 08/17/2023 12:50 PM FINDINGS: Diaphragm: There is a small hiatal hernia. Liver: Normal. No mass. Gallbladder and bile ducts: Cholecystectomy Pancreas: Normal. No ductal dilation. Spleen: Normal. No splenomegaly. Adrenal glands: Normal. No mass. Kidneys and ureters: Moderate left-sided hydronephrosis, with perinephric fat stranding and left-sided hydroureter. There is an 8 mm stone within the distal left ureter. Nonobstructive nephrolithiasis on the right. Stomach and bowel: There is a right lower quadrant ostomy. Appendix: No evidence of appendicitis. Intraperitoneal space: Unremarkable. No free air. No significant fluid collection. Vasculature: Unremarkable. No abdominal aortic aneurysm. Lymph nodes: Unremarkable. No enlarged lymph nodes. Urinary bladder: Unremarkable as visualized. Reproductive: Unremarkable as visualized. Bones/joints: Unremarkable. No acute fracture. Soft tissues: Unremarkable. IMPRESSION: 1. Moderate left-sided hydronephrosis, with perinephric fat stranding and left-sided hydroureter. There is an 8 mm stone within the distal left ureter. 2. Nonobstructive nephrolithiasis on the right. Dictated and Authenticated by: Jamin Flowers MD. Ordering:ALEX Hirsch MD
== END 2023-10-21 07:32 | disposition short-term general hospital (02) ==
PROVIDERS: Emergency Provider Student in an Organized Health Care Education/Training Program; PCP Family Medicine
DX: N13.2 Hydronephrosis with renal and ureteral calculous obstruction (principal); R94.31 Abnormal electrocardiogram [ECG] [EKG]
CPT/HCPCS: 71250; 80053; 83690; 93005; 96361; 96374; 96375; 99285; 74176; 81003; 81015; 84484; 85025; 93010; 99284; J0131; J2270; J2405

== ENCOUNTER → 2023-11-22 10:56 | Outpatient (BNVA) | payer MEDICARE, SELFPAY | PROVIDERS: PCP Family Medicine; Referring Provider Family Medicine; Visit Provider Internal Medicine Cardiovascular Disease | DX: I25.10 Atherosclerotic heart disease of native coronary artery without angina pectoris (principal); I10 Essential (primary) hypertension | CPT/HCPCS: 99213 ==

== ENCOUNTER → 2023-11-29 03:32 | Outpatient (CLI) | payer MEDICARE, SELFPAY ==
--- NOTE | 2023-11-29 07:30 | DI.DEXA_ITS ---
Exam(s) XR DEXA BONE DENSITY W/WO VINCENT EXAM: XR DEXA BONE DENSITY W/WO VINCENT CLINICAL HISTORY: f/u osteopenia,SCREENING FOR OSTEOPOROSIS IN POSTMENOPAUSAL WOMAN,Z78.0 TECHNIQUE: [employer] Horizon C densitometer analysis of left hip, lumbar spine and left forearm. Lat eral survey image of the thoracic and lumbar spine. COMPARISON: CR XR HIP RT COMPLETE AP PELVIS from 06/14/2023 FINDINGS: Lateral view of the thoracic and lumbar spine shows no evidence of compression fractures. Bone mineral density measurements of the lumbar spine correspond to a total T-score of 0.4, in the n ormal range. Bone mineral density measurements of the left hip correspond to a total T-score of -1.0. The femora l neck T-score is -2.2, in the osteopenic range.. Theleft forearm bone mineral density measurements correspond to a T-score of the distal 3rd of -1.2 in the osteopenic range.. IMPRESSION: Normal bone mineral density of the spine. Osteopenia of the hip and forearm.
--- NOTE | 2023-11-29 08:30 | DI.MAMMO_ITS ---
Exam(s) MAMMO SCREENING EXAM: MAMMO SCREENING CLINICAL HISTORY: screening z12.39 TECHNIQUE: Mammograms were interpreted according to the usual protocol including computer analysis w [employer] CAD system, tomosynthesis and C-view imaging. COMPARISON: 2014 through 2021 FINDINGS: The breasts are composed of scattered fibroglandular densities, Breast Density category B. No suspicious masses or suspicious microcalcifications are seen. No skin thickening or abnormal axillary lymph nodes are seen. There has been no significant change from prior exams. IMPRESSION: BI-RADS Category 1, Negative mammogram Yearly screening mammography is recommended. Breast Density - Category B, scattered fibroglandular densities. A negative radiographic report should not delay biopsy if a dominant or clinically suspicious mass is present. Up to ten percent of cancers are not identified on mammography. A negative report may reinforce clinical impression. Adenosis and dense breasts may obscure an underlying neoplasm. False positive reports average 6 to 10%. Patient will receive a letter notifying them of these results.
== END ==
PROVIDERS: PCP Family Medicine; Visit Provider Family Medicine
DX: Z78.0 Asymptomatic menopausal state; M85.89 Other specified disorders of bone density and structure, multiple sites; Z12.31 Encounter for screening mammogram for malignant neoplasm of breast; Z13.820 Encounter for screening for osteoporosis
CPT/HCPCS: 77063; 77067; 77080

== ENCOUNTER 2024-02-05 23:16 | Emergency (ER) | payer MEDICARE, SELFPAY | END 2024-02-05 23:37 | disposition left against medical advice (07) | LOC: ER 23:32 | PROVIDERS: Emergency Provider Student in an Organized Health Care Education/Training Program; PCP Family Medicine | DX: Z53.21 Procedure and treatment not carried out due to patient leaving prior to being seen by health care provider (principal) ==

== ENCOUNTER 2024-03-27 02:29 | Outpatient (CLI) | payer MEDICARE, SELFPAY ==
--- NOTE | 2024-03-27 08:30 | DI.MRI_ITS ---
Exam(s) MR ABDOMEN WO/W EXAM: MR ABDOMEN WO/W CLINICAL HISTORY: [place] [facility] [place], K86.89 TECHNIQUE: Multiplanar multisequence MRI of the Abdomen was performed. CONTRAST MATERIAL: IV Contrast: 20 mL of Dotarem contrast administered. COMPARISON: CT RENAL COLIC WO CONTRAST from 03/25/[address] ABDOMEN PELVIS CTA from 08/10/[address] ABDOMEN AND PELVIS WO CONTRAST from 10/15/[address] CHEST/ABD/PEL WO from 10/21/[address] ABDOMEN AND PELVIS W CONTRAST from 02/06/2024 FINDINGS: Liver: Unremarkable. Pancreas: No pancreatic head mass is visible. The area in question at the inferior aspect of the manuel creatic head on the recent CT blends in with and shows the same signal as the remaining pancreas. CT appearance is unchanged from July 2022. Gallbladder and Bile Ducts: Unremarkable. Adrenals: Unremarkable. Kidneys: Small bilateral simple cysts. Spleen: Unremarkable. Aorta: Unremarkable. Soft Tissues: Unremarkable. Bone: Unremarkable. Lymph Nodes: Unremarkable. IMPRESSION: No pancreatic head mass is visible by MRI. DATA REPOSITORY:
[2024-03-27] MEDS: Normal Saline - Diluent 50 ML VIAL 25 ML IJ (12:36)
[2024-03-27] MEDS: Gadoterate meglumine 20 ML VIAL IVP (12:36)
== END 2024-03-27 02:49 ==
LOC: DI 02:29
PROVIDERS: PCP Family Medicine; Visit Provider Family Medicine
DX: K86.89 Other specified diseases of pancreas (principal); N28.1 Cyst of kidney, acquired
CPT/HCPCS: 74183

== ENCOUNTER 2024-03-27 20:49 | Outpatient (REF) | payer MEDICARE, SELFPAY ==
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
--- OUTSIDE RECORDS SUMMARY | 2024-03-27 20:51 | XMS_ITS | Encounter Summary ---
Author Organization [facility] Address [facility] [place] [address] Care Team Providers Care Drafting Detailer Name Role Phone Latha Aguirre MD Primary Care Provider [phone] Reason for Visit * Reason Comments Nephrolithiasis Encounter Details Date Type Department Care Team (Latest Contact Info) Description 01/07/2024 2:00 PM EDT [place] [address] Alfredito Alonzo Jr., MD [facility] [place] [address] Kidney stone; Bilateral nephrolithiasis Social History Tobacco Use Types Packs/Day Years Used Date Smoking Tobacco: Never Smokeless Tobacco: Never Alcohol Use Standard Drinks/Week Comments No 0 (1 standard drink = 0.6 oz pur e alcohol) [facility] Utilities Answer Date Recorded In the past 12 months has e electric, gas, oil, or water company [...] place to sleep or slept in a usp (including now)? No 10/22/2023 DH IPV Inpatient [...] Sign Reading Time Taken Comments Blood Pressure 167/84 01/07/2024 2:13 PM EDT Pulse 76 01/07/2024 2:13 PM EDT Temperature - - Respiratory Rate - - Oxygen Saturation - - Inhaled Oxygen Concentration - - Weight - - Height - - Body Mass Index - - documented in this encounter Progress Notes * Alfredito Alonzo Jr., MD - 01/07/2024 2:00 PM EDT Images from the original note were not included. HPI: Page Katz is a 73 y.o. female who returns for urologic follow-up regarding recurrent mixed CaOx-based nephrolithiasis. In 2012, she underwent left PCNL for >2cm branched staghorn leftrenal stone, mixed CaOx. We had offered metabolic evaluation which she declined. We had planned annual follow up but she did not return until 2023 She was initially seen for her most current left ureteral stone on 08/17/23 with flank pain, saw PCPwho ordered CT at [facility], and given history of LAD stent placed in 06/2023 [place] [facility] [place]. Elective left ureteroscopy had been scheduled, but she she then presented in interval with severe left flank pain. She underwent urgent stent placement on 10/21/23 for acute on chronic left flank pain, then underwent left ureteroscopy on 11/01/23. Intraoperative findings were notable for mpacted left ureteral stone,with marked edematous mucosal changes surrounding stone. Stone fragmented and all fragments extracted. Fluoroscopically and endoscopically stone free at procedure conclusion. Stent replaced due to impacted stone. Since planned stent removal in October 2023, she has been well. She denies additional witnessed stone passage or suspected renal colic. She has remained comfortable.. She returns today with follow-up renal ultrasound PMHx: polymyalgia rheumatica, hypothyroidism, hyperlipidemia, Crohn's disease, colon CA, HTN; CAD/NSTEMI PSHx: total colectomy; cholecystectomy; thyroidectomy; bilateral knee replacement; left PCNL; left URS FamHx:+ family h/o urolithiasis (sister, has had SWL) SocHx: no tobacco; no EtOH Physical Exam Vitals reviewed. Constitutional: General: She is not in acute distress. Appearance: She is not ill-appearing, toxic-appearing or diaphoretic. Cardiovascular: Rate and Rhythm: Normal rate. Pulmonary: Effort: Pulmonary effort is normal. Genitourinary: Comments: No CVA tenderness to percussion bilaterally Stone Analysis: 40% Calcium oxalate monohydrate 30% Calcium oxalate dihydrate 30% Calcium phosphate(apatite). (2012 - -60 % calcium oxalate monohydrate, 20% calcium oxalate dihydrate and 20% calcium phosphate (apatite) ) Imaging studies: I independently reviewed the renal ultrasound from today. Preliminary review reveals no residual left renal stones and no residual left hydronephrosis or hydroureter. Ultrasound suggest right upper pole renal stone, nonobstructing. Bilateral simple appearing renal cysts are also noted. Bilateral ureteral jets are confirmed in the bladder. IMPRESSION 1. Nonobstructing right nephrolithiasis, the largest of which measures 9 mm. 2. No additional sonographically evident nephrolithiasis. 3. No collecting system dilatation, bilaterally. 4. Small simple bilateral renal cysts as above. 5. Normal contour of the partially distended bladder. No bladder calculi. I have personally reviewed the image(s) and the resident's interpretation and agree with the findings, Jessica Loya MD at 01/07/2024 2:21 PM Electronically signed by: Jessica Loya MD, [facility] ([phone]), at 01/07/2024 2:21 Impression/Plan: Mixed CaOxMonohydrate / CaOxDi/CaPhos recurrent nephrolithiasis. 1) Mixed CaOx stone. We reviewed general dietary modifications for those with CaOx-based stones. Wediscussed the role of a low oxalate low sodium diet with increased hydration, targeting 2.5 liters urine output daily. I again offered metabolic evaluation including 24 h urine studies, especially inlight of possible new right renal stone. She agrees to proceed. I will order 24-hour urine plan follow-up in approximately 4 months. 2) Impacted left ureteral stone, now treated. We reviewed the ultrasound imaging. We discussed there is no evidence of residual hydronephrosis, hydroureter, or stone. 3) potential right upper pole renal stone proximately 8 mm. We discussed the ultrasound finding as well as the intrinsic limitations of ultrasound. We discussed pros and cons of CAT scan as well as follow-up imaging versus proceeding with preemptive surgical intervention. She declined surgical inter vention at this time. She wishes to proceed with repeat ultrasound and KUB which we will coordinatefor approximately 4 months at the time of follow-up for 24- hour urine review. She will contact us in the interval if any new symptoms, questions, or problems should arise. documented in this encounter Plan of Treatment Upcoming Encounters Date Type Department Care Team (Late st Contact Info) Description 05/15/2024 1:00 PM EDT TH Visit (TeleHealth) [place] [address] Pasha Wood MD [facility] [place] [address] Scheduled Orders Name Type Priority Associated Diagnoses Orde r Schedule US Retroperitoneal Complete Imaging Routine Kidney stone Expected: 04/29/2024, Expires: 01/06/2025 XR Abdomen 1 view (Generic) Imaging Routine Kidney stone Expected: 04/29/2024, Expires: 07/08/2024 documented as of this encounter Visit Diagnoses Diagnosis Kidney stone Calculus of kidney Bilateral nephrolithiasis documented in this encounter Care Teams Drafting Detailer Relationship Specialty Start Date End Date Latha Aguirre MD [address] [place] [id number] PCP - General Family Medicine 06/28/23 documented as of this encounter
--- OUTSIDE RECORDS SUMMARY | 2024-03-27 20:51 | XMS_ITS | Encounter Summary ---
Author Organization [facility] Address [facility] [place] [address] Care Team Providers Care Cigarette Roller Name Role Phone Latha Aguirre MD Primary Care Provider [phone] Reason for Visit * Reason Comments Medication Refill Encounter Details Date Type Department Care Team (Late st Contact Info) Description 01/09/2024 [place] [address] Pasha Wood MD [facility] [place] [address] Social History Tobacco Use Types Packs/Day Years Used Date Smoking Tobacco: Never Smokeless Tobacco: Never Alcohol Use Standard Drinks/Week Comments No 0 (1 standard drink = 0.6 oz pur e alcohol) [facility] Utilities Answer Date Recorded In the past 12 months has [employer], gas, oil, or water [email or web address] threatened to shut off services in your [...] place to sleep or slept in a custodial (including now)? No 10/22/2023 IPV Inpatient Questions [...] PM EDT TH Visit (TeleHealth) [place] [address] Pasha Wood MD [facility] [place] [address] documented as of this encounter Visit Diagnoses Not on filedocumented in this encounter Care Teams Cigarette Roller Relationship Specialty Start Date End Date Latha Aguirre MD [address] [place] [id number] PCP - General Family Medicine 06/28/23 documented as of this encounter
--- OUTSIDE RECORDS SUMMARY | 2024-03-27 20:51 | XMS_ITS | Encounter Summary ---
[place] [address] Care Team Providers Care Gold Blower Name Role Phone Latha Aguirre MD Primary Care Provider [phone] Reason for Visit * Reason Comments Flank Pain Right Encounter Details Date Type Department Care Team (Late st Contact Info) Description 02/06/2024 1:45 AM EDT - 02/06/2024 8:25 AM EDT Emergency [place] [address] [place] [address] Page Deras MD [facility] [place] [address] Kidney stone on right side Discharge Disposition: Home Social History Tobacco Use Types Packs/Day Years Used Date Smoking Tobacco: Never Smokeless Tobacco: Never Alcohol Use Standard Drinks/Week Comments No 0 (1 standard drink = 0.6 oz pur e alcohol) [facility] Utilities Answer Date Recorded In the past 12 months has Peak electric, gas, oil, or water company threatened [...] place to sleep or slept in a intermediate (including now)? No 10/22/2023 DH IPV Inpatient [...] Sign Reading Time Taken Comments Blood Pressure 136/61 02/06/2024 8:15 AM EDT Pulse 80 02/06/2024 8:15 AM EDT Temperature 36.6 ??C (97.9 ??F) 02/06/2024 1:02 AM ED T Respiratory Rate 15 02/06/2024 8:15 AM EDT Oxygen Saturation 99% 02/06/2024 8:15 AM EDT Inhaled Oxygen Concentration - - Weight - - Height - - Body Mass Index - - documented in this encounter Discharge Instructions * Discharge Instructions* Reta Sanchez MD - 02/06/2024 8:01 AM EDT You have a right sided kidney stone. Your imaging also showed a solid lesion at the head of the pancreas. We recommend following up with your primary care doctor to schedule a pancreatic protocol MRIor CT to evaluate this finding further. At home, you may take Tylenol and ibuprofen for pain. Make sure you drink plenty of fluids. Please return to the emergency room if you develop fevers, chills, intractable pain, shortness of breath, chest pain, if you are urinating dora blood, or for any other concerning symptoms. * Attachments The following attachments cannot be sent through Care Everywhere. * Kidney Stone ([place]) * Kidney Stone Prevention Diet: General Info ([place]) documented in this encounter Medications at Time of Discharge Medication Sig Dispensed Refills Start Date End Date predniSONE (Deltasone) 1 mg tablet TAKE 2 TABLETS BY MOUTH ONCE DAILY FOR 90 DAYS 180 tablet 01/11/2024 inhalational spacing device (Space Chamber) Spacer USE DIRECTED WITH INHALER hydroCHLOROthiazide (HydroDiuril) 25 mg tablet Take 1 tablet by mouth daily. cholecalciferoL (Vitamin D3) 1,000 unit tablet Take 1,000 Units by mouth Daily @ 0600. clobetasoL (TEMOVATE) 0.05 % Solution APPLY TO RASH AROUND STOMA DAILY WHEN FLARING buPROPion XL (Wellbutrin XL) 150 mg XL 24 hr tablet TAKE 1 TABLET (150MG) BY MOUTH EVERY MORNING amoxicillin-clavulan ate (Augmentin) 875-125 mg tablet Take 1 tablet every 12 hours by oral route for 10 days. 12/10/2023 albuteroL (Ventolin HFA) 90 mcg/actuation inhaler (HFA) Inhale 2 puffs into the lungs every 4 hours as needed. acetaminophen (Tylenol) 500 mg tablet Take 1 tablet by mouth 2 times daily as needed. losartan (Cozaar) 100 mg tablet Take 1 tablet by mouth daily. tamsulosin (Flomax) 0.4 mg capsule Take 1 capsule by mouth daily. 90 tablet 10/22/2023 metoprolol succinate XL (Toprol-XL) 50 mg ER 24 hr tablet Take 50 mg by mouth daily. 10/12/2023 clopidogreL (Plavix) 75 mg tablet Take 1 tablet by mouth daily. 90 tablet 3 07/16/2023 metoprolol succinate XL (Toprol-XL) 25 mg ER 24 hr tablet Take 1 tablet by mouth daily. 30 tablet 3 07/16/2023 nitroGLYcerin (Nitrostat) 0.[address] 1 tablet under the tongue every 5 minutes as needed for Chest pain. 90 tablet 12 07/16/2023 rosuvastatin (Crestor) 20 mg tablet Take 1 tablet by mouth every evening. 90 tablet 3 07/16/2023 aspirin 81 mg chewable tablet Take 81 mg by mouth daily. 30 tablet 3 07/17/2023 amLODIPine (Norvasc) 5 mg tablet Take 5 mg by mouth 2 times daily. ALPRAZolam (Xanax) 0.25 mg tablet Take 0.25 mg by mouth nightly as needed for Anxiety. 03/05/[address] (Cymbalta) [address] capsule Take 1 capsule by mouth Daily at Noon. 04/29/2023 metroNIDAZOLE (METROCREAM) 0.75 % Cream Apply topically as needed. omeprazole (PriLOSEC) [address] capsule Take 40 mg by mouth daily. 12/23/2022 adalimumab (Humira,CF, Pen) 40 mg/0.4 mL Pen Injector KitIndications:rheum atoid arthritis Inject 0.4 mLs subcutaneously every 14 days. Indications: rheumatoid arthritis 1 kit 5 05/31/2022 levothyroxine (SYNTHROID) 125 mcg Tablet Take 125 mcg by mouth daily. 2 days a week Yijrjkiowvehm-Ai-Uzl n-Minerals (ONE-A-DAY WOMENS FORMULA) 27-0.4 mg Tab 08/19/2009 documented as of this encounter ED Notes * Richie Clements RN - 02/06/2024 8:10 AM EDT Pt discharged home. All invasive lines removed. Vitals within normal parameters. All belongings returned to pt prior to discharge. Discharge education was discussed with pt and/or caregiver and adequate knowlege of discharge plan was verbalized by patient and/or caregivers. * Ubaldo Maher MD - 02/06/2024 3:21 AM EDT ED Resident Note HPI: Page Katz is a 73 y.o. female with past medical history significant for endometrial cancer,colon cancer status post colectomy and ostomy placement, hypertension, NSTEMI, prior left kidney stone resulting in stenting who presents to the Emergency Department with sudden onset right-sided flank pain this evening. History is obtained from the patient. Patient states that she was getting ready to go to bed tonight, she had sudden onset right-sided pain that radiated from her right flank to her right abdomen. She states this feels similar to prior kidney stones, she states that she has nothad blood in her urine recently, no urinary frequency, no urinary burning. She has not had any changes in her diet recently. She states that she does not have a gallbladder any longer, does still have her appendix. She states that now the pain is radiating from her right costovertebral angle to just underneath her right rib cage. No fevers, no chills recently. ROS as per HPI Vitals: ED Triage Vitals [02/06/24 0102] BP: 174/69 Heart Rate: 82 Resp: 16 Temp: 36.6 ??C (97.9 ??F) Temp src: Tympanic SpO2: 96 % O2 Device: RA O2 Flow Rate (L/min): n/a Physical Exam Constitutional: General: She is not in acute distress. HENT: Head: Normocephalic and atraumatic. Eyes: Conjunctiva/sclera: Conjunctivae normal. Cardiovascular: Rate and Rhythm: Normal rate and regular rhythm. Pulmonary: Effort: Pulmonary effort is normal. No respiratory distress. Abdominal: General: Abdomen is flat. Palpations: Abdomen is soft. Comments: No CVA tenderness, mild tenderness palpation of the right upper quadrant. Skin: General: Skin is warm and dry. Neurological: Mental Status: She is alert. CT Abdomen & Pelvis w Contrast (Results Pending) Procedures Assessment and Plan: 73 y.o. female with past medical history significant for endometrial cancer, colon cancer status post colectomy and ostomy placement, hypertension, NSTEMI, prior left kidney stone resulting in stenting who presents to the Emergency Department with sudden onset right-sided flank pain this evening. Patient is describing pain that radiates to her abdomen from her right flank. She states it feels similar to prior kidney stones, will obtain CT imaging to evaluate for kidney stones, will obtain CT abdomen pelvis with contrast however because she does state the pain is radiating to her right upperquadrant as well. She is status postcholecystectomy, considered unlikely that she has biliary pathology. Will obtain LFTs, lipase as well to evaluate for pancreatitis, biliary pathology. Will also obtain urinalysis. CT scan shows a nonobstructing renal calculi in the right kidney. It also shows a concern for a similar intensity on her CT scan concerning for mass. Discussed with the patient that this will need tohave follow-up. At the time of signout to oncoming emergency room team, she is pending a urinalysis. Her pain is well- controlled. Disposition pending urinalysis. Ubaldo Maher MD Resident 02/06/24 0755 Associated attestation - Ben Vicente MD - 02/06/2024 8:29 AM EDT ED ATTENDING ATTESTATION NOTE The patient was seen in conjunction with the resident physician. I have independently performed thekey portions of the history and physical exam. I have reviewed the diagnostic studies including labs, imaging studies and EKGs. I have discussed the details of the case with the resident and agree with the assessment and plan as described in the resident note unless noted below or in my separate note. Brief Summary: 73 y.o. female with history of CAD, endometrial cancer, Crohn's, colon cancer s/p colectomy with colostomy, RA, hypothyroidism, kidney stones s/p prior ureteral stent who is presenting with right-sided flank/back and abdominal pain. Symptoms began fairly abruptly earlier this evening. Initially developed pain in the right CVA that subsequently radiated to the right flank and right lower abdomen. [place] it was similar to episode of kidney stones in the past. Had associated nausea but no emesis send feeling warm. No chest pain, shortness of breath, dysuria/urinary frequency, fevers, chills. Workup included labs and CT abdomen pelvis. Blood work was largely unremarkable, UA pending. CT scan showed nonobstructing renal calculi in the right kidney as well as solid-appearing lesion in the head ofthe pancreas that is slightly abnormal in appearance. This was discussed with the patient and recommended that she follow-up with her PCP for additional imaging/evaluation of this finding. At this point, her pain seems to be well-controlled and resolved. I suspect that she may have had a small stone that has passed. Workup has been reassuring against any additional urgent/emergent pathology. She was signed out to the oncoming team pending UA and likely discharge home. documented in this encounter Plan of Treatment Upcoming Encounters Date Type Department Care Team (Late st Contact Info) Description 05/15/2024 1:00 PM EDT TH Visit (TeleHealth) [place] [address] Pasha Wood MD [facility] [address] documented as of this encounter Procedures Procedure Name Priority Date/Time Associated Diagnosis Comments URINALYSIS MICROSCOPIC EXAM STAT 02/06/2024 6:30 AM EDT URINALYSIS WITH REFLEX CULTURE STAT 02/06/2024 6:30 AM EDT EKG 12-LEAD STAT 02/06/2024 6:[address] ABDOMEN AND PELVIS W CONTRAST STAT 02/06/2024 4:42 AM EDT HEMOGRAM STAT 02/06/2024 3:17 AM EDT DIFFERENTIAL, AUTOMATED STAT 02/06/2024 3:17 AM EDT BLUE TUBE HOLD STAT 02/06/2024 3:17 AM EDT LAVENDER TUBE HOLD STAT 02/06/2024 3: 17 AM EDT LIPASE STAT 02/06/2024 3:17 AM EDT HEPATIC FUNCTION PANEL STAT 02/06/2024 3:17 AM EDT BASIC METABOLIC PANEL STAT 02/06/2024 3:17 AM EDT documented in this encounter Results * (ABNORMAL) Urinalysis Microscopic Exam (02/06/2024 6:30 AM EDT) RBC, Urine 16(H) 0 - 4 /HPF [facility] WBC, Urine 1 0 - 5 /HPF [facility] Hyaline Casts, Urine 1 0 - 2 /LPF [facility] Clean Catch Urine 02/06/2024 6:30 AM EDT 02/06/2024 7:06 AM EDT Narrative Resulting Agency Comment Spec In Lab Ben Vicente MD URINE ORDERABLES [facility] [place] [address] * (ABNORMAL) Urinalysis with reflex Culture (02/06/2024 6:30 AM EDT) Glucose, Urine Dipstick Negative Negative mg/dL [facility] Protein, Urine Dipstick Negative Negative mg/dL [facility] Bilirubin, Urine Dipstick Negative Negative mg/dL [facility] Comment: Clinical correlation required for positive Urine Bilirubin results as false positive may occur with some drugs and drug related products. If a false positive is suspected a serum total bilirubin should be considered if clinically indicated. Urobilinogen, Urine Dipstick Normal Normal mg/dL [facility] pH, Urn (dipstick) 6.5 5.0 - 8.0 [facility] Blood, Urine Dipstick Moderate(A) Negative mg/dL [facility] Ketone, Urine Dipstick Negative Negative mg/dL [facility] Nitrite, Urine Dipstick Negative Negative [facility] Leukocytes, Urine Dipstick Negative Negative [facility] Appearance, Urine Dipstick Clear Clear [facility] Specific [place] Urine Automated >=1.030(A) 1.005 - 1.030 [facility] Color, Urine Dipstick Yellow Yellow [facility] Reflex to Culture No [facility] Clean Catch Urine 02/06/2024 6:30 AM EDT 02/06/2024 7:06 AM EDT Narrative Resulting Agency Comment Spec In Lab Ben Vicente MD URINE ORDERABLES Performing Organization Address [facility]/ZIP Co de Phone Number [facility] [place] [address] * EKG 12 Lead (02/06/2024 6:29 AM EDT) Ventricular rate 72 BPM MUSE SYSTEM Atrial Rate 72 BPM MUSE SYSTEM P-R Interval 154 ms MUSE SYSTEM QRS Duration 96 ms MUSE SYSTEM Q-T Interval 394 ms MUSE SYSTEM QTC Calculated (Bezet) 431 ms MUSE SYSTEM Calculated P [place] 11 degrees MUSE SYSTEM Calculated R [place] 7 degrees MUSE SYSTEM Calculated T [place] 116 degrees MUSE SYSTEM INTERPRETATION Normal sinus rhythm Minimal voltage criteria for LVH, may be normal variant ( Dereck product ) T wave abnormality, consider lateral ischemia Abnormal ECG When compared with ECG of 15-JUL-2023 12:09, T wave inversion now evident in Lateral leads Confirmed by Henry Spivey ([id number]) on 02/10/2024 5:55:31 PM MUSE SYSTEM 02/06/2024 6:29 AM EDT 02/10/2024 5:55 PM EDT Ben Vicente MD ECG ORDERABLES Performing Organization Address [facility] Co de Phone Number MUSE SYSTEM * (ABNORMAL) CT Abdomen & Pelvis w Contrast (02/06/2024 4:42 AM EDT) WORKSTATION ID [id number] RAD Anatomical Region Laterality Modality Abdomen, Pelvis Computed Tomogra phy Impressions 02/06/2024 5:37 AM EDT 1. ??No hydronephrosis or hydroureter. Punctate nonobstructing right renal calculi. 2. ??Unexpected finding: Ill-defined solid-appearing lesion at the head of the pancreas, that is slightly abnormal in appearance relative to the fatty replacement of the adjacent pancreas. Recommend additional more sensitive evaluation with a pancreatic protocol MRI or CT to exclude mass. Thank you for letting us participate in the care of this patient. ??If you are a health care provider and have any questions regarding this report, please contact the number below. ??For patients who have questions please contact the health resident care provider that requested your imaging first. ? Electronically signed by: Allyn Campos MD, [facility] ([phone]), at 02/06/2024 5:37 AM Narrative 02/06/2024 5:37 AM EDT EXAMINATION: CT ABDOMEN AND PELVIS W CONTRAST CLINICAL HISTORY: history of colon/endometrial cancer s/p colectomy, kidney stones who is presenting with right-sided abdominal/flank/back pain, nausea and vomiting. TECHNIQUE: Helical CT of the abdomen and pelvis following the intravenous administration of contrast. 1 20 mL of Omnipaque 350. COMPARISON: CT abdomen pelvis, October 15, 2023 FINDINGS: Lower chest: Dependent atelectasis. Liver: Normal. Bile ducts: Not dilated. Gallbladder: No calcified gallstones. Pancreas: Focal solid appearing area measuring approximately 1.8 x 9 mm at the anterior head of the pancreas that is unexpectedly dense considering the fatty replacement of the surrounding head and neck and proximal body; unexpected finding. No duct dilation. Spleen: Normal. Adrenals: Normal. Kidneys: Symmetric enhancement. Bilateral renal hypodensities, too small to further characterize. Punctate 2 mm right renal cysts. No hydronephrosis or hydroureter. Vasculature: No significant findings.. Lymph Nodes: No enlarged lymph nodes. Bowel: Changes of partial colectomy with the right lower quadrant colostomy. Normal appearance of the Cisneros's pouch. Normal small and large bowel with grossly unchanged appearance of the right parastomal hernia. Peritoneum: No free air. No free or loculated fluid collection. Abdominal wall: Right parastomal hernia without evidence of inflammation. Urinary Bladder: Normal. Reproductive organs: Post hysterectomy. Osseous structures: Multilevel lumbar spondylosis. No acute osseous findings. Resulting Agency Comment Unexpected Finding Ben Vicente MD IMG CT ORDERABLES * Basic Metabolic Panel (non-fasting) (02/06/2024 3:17 AM EDT) Glucose 127 65 - 199 mg/dL [facility] Comment:Diabetes: >=200 mg/d L plus symptoms Blood Urea Nitrogen 18 8 - 18 mg/dL [facility] Creatinine 0.78 0.70 - 1.20 mg/dL [facility] Sodium 143 135 - 145 mmol/L [facility] Potassium 4.2 3.5 - 5.0 mmol/L [facility] Comment: Please note: ??Patients with WBC >100,000 may have falsely elevated Potassium levels. ??For accurate Potassium quantification in these patients send serum separator tube (gold top) for subsequent determinations. ??Contact the Clinical Chemistry Laboratory if there are any questions. Chloride 106 98 - 107 mmol/L [facility] Carbon Dioxide 23 22 - 31 mmol/L [facility] Anion Gap 14 5 - 15 mmol/L [facility] Calcium 10.3 8.5 - 10.5 mg/dL [facility] Est Glomerular Filtration Rate 80 >=60 mL/min/1. 73 m?? [facility] Comment: This patient's estimated GFR was calculated using the 2020 CKD-EPI equation. The estimated GFR can vary from the measured GFR by up to 30% in the absence of rapidly changing kidney function. Assessment of the estimated GFR is not appropriate when creatinine concentrations are rapidly changing. For clinical situations in which a more precise estimate of GFR is necessary, consider alternative methods of GFR estimation such as a 24-hour urine creatinine clearance. Assignment of CKD stage 1-5 for patients with an eGFR near the transition point between stages may be based on clinical assessment of muscle mass and symptoms in addition to eGFR. Blood Venous Draw / Unknown 02/06/2024 3:17 AM EDT 02/06/2024 4:19 AM EDT Narrative Resulting Agency Comment Spec In Lab Ubaldo Maher MD CHEMISTRY ORDERABLES Performing Organization Address City/[facility]/ZIP Co de Phone Number [facility] [place] [address] * Lipase (02/06/2024 3:17 AM EDT) Pathologist [facility] [place] Lipase 27 0 - 60 unit/L [facility] Blood Venous Draw / Unknown 02/06/2024 3:17 AM EDT 02/06/2024 4:19 AM EDT Narrative Resulting Agency Comment Spec In Lab Ubaldo Maher MD CHEMISTRY ORDERABLES Performing Organization Address City/[facility] Co de Phone Number [facility] [place] [address] * (ABNORMAL) Differential, Automated (02/06/2024 3:17 AM EDT) Pathologist [facility] [place] Neutrophil % 65.9 % [facility] Neutrophil Absolute 6.24(H) 1.70 - 6.10 x10(3)/mc L [facility] Lymph % 21.8 % [facility] Lymphocytes Abs 2.1 0.9 - 3.2 x10(3)/mc L [facility] Monocyte % 10.0 % [facility] Monocyte Abs 1.0(H) 0.3 - 0.9 x10(3)/mc L [facility] Eos % 1.3 % [facility] Eosinophils Abs 0.1 0.0 - 0.4 x10(3)/mc L [facility] Basophil % 0.5 % [facility] Baso Absolute 0.0 0.0 - 0.1 x10(3)/mc L [facility] Immature Gran % 0.50 % [facility] Comment: Immature granulocytes(IG's)percentage and absolute count will include metamyelocytes, myelocytes, and promyelocytes. Blood smears from CBCs yielding IG's will be scanned manually for concordance. If this scan disagrees with the automated IG or if promyelocytes are noted, a manual differential will be performed. Immature Gran Absolute 0.05(H) 0.00 - 0.04 x10(3)/ L [facility] Blood Venous Draw / Unknown 02/06/2024 3:17 AM EDT 02/06/2024 4:32 AM EDT Narrative Resulting Agency Comment Spec In Lab Ubaldo Maher MD HEMATOLOGY ORDERABLE S [facility] [place] [address] * (ABNORMAL) Hemogram (02/06/2024 3:17 AM EDT) White Blood Cell 9.5 4.0 - 9.5 x10(3)/[facility] Red Blood Cell 4.47 4.00 - 5.21 x10(6)/[facility] Hemoglobin 14.0 11.7 - 15.5 g/dL [facility] Hematocrit 43.1 35.7 - 45.8 % [facility] Mean Cell Volume 96.4(H) 82.6 - 94.4 fL [facility] Mean Cell Hemoglobin 31.3 27.1 - 32.0 pg [facility] Mean Cell Hemoglobin Concentration 32.5 31.7 - 35.0 g/dL [facility] Platelet 333 145 - 357 x10(3)/ L [facility] RDW Standard Deviation 49.3(H) 37.0 - 46.0 fL [facility] RDW coefficient of variation 13.9 11.5 - 14.1 % [facility] Mean Platelet Volume 9.2 7.6 - 12.9 fL [facility] NRBC% auto 0.0 % [facility] NRBC Absolute 0.000 0.000 - 0.000 x10(3)/mc L [facility] Blood Venous Draw / Unknown 02/06/2024 3:17 AM EDT 02/06/2024 4:32 AM EDT Narrative Resulting Agency Comment Spec In Lab Ubaldo Mahre MD HEMATOLOGY ORDERABLE S [facility] [place] [address] * Lavender Tube HOLD (02/06/2024 3:17 AM EDT) Lavender Hold Sample in lab. [facility] Blood Venous Draw / Unknown 02/06/2024 3:17 AM EDT 02/06/2024 4:[address] Franck Petit MD HEMATOLOGY ORDERABLE S [facility] [place] [address] * Blue Tube HOLD (02/06/2024 3:17 AM EDT) Blue Hold Sample in lab. [facility] Blood Venous Draw / Unknown 02/06/2024 3:17 AM EDT 02/06/2024 4:[address] Franck Petit MD HEMATOLOGY ORDERABLE S [facility] [place] [address] * Hepatic Function Panel (02/06/2024 3:17 AM EDT) Protein, Total 7.4 6.1 - 8.0 g/dL [facility] Albumin 4.2 3.2 - 5.2 g/dL [facility] Aspartate Aminotransferase 22 0 - 30 unit/L [facility] Alanine Aminotransferase 17 0 - 30 unit/L [facility] Alkaline Phosphatase 91 35 - 105 unit/L [facility] Bilirubin, Total 0.3 0.2 - 1.3 mg/dL [facility] Bilirubin, Direct 0.1 0.0 - 0.3 mg/dL [facility] Blood 02/06/2024 3:17 AM EDT 02/06/2024 4:19 AM EDT Narrative Resulting Agency Comment Spec In Lab Ben Vicente MD CHEMISTRY ORDERABLES [facility] [place] [address] documented in this encounter Visit Diagnoses Diagnosis Kidney stone on right side Calculus of kidney documented in this encounter Administered Medications Inactive Administered Medications - up to 3 most recent administrations Medication Order MAR Action Action Date Dose Rate Site acetaminophen (Tylenol) tablet 975 mg 975 mg, Oral, ONCE, 1 dose, On Sun02/06/24 at 0628, Maximum dose of acetaminophen is 4,000 mg from all sources in 24 hours. When ordered for pain, acetaminophen should be given even when other ordered pain medications are indicated., STAT Given 02/06/2024 7:21 AM EDT 975 mg iohexoL (Omnipaque) (350 mg/mL) solution 0-200 mL 0-200 mL, Intravenous, ONCE PRN, 1 dose, Starting on Sun02/06/24 at 0443, Until Sun02/06/24 at 0443, Per Protocol, Warning Vesicant/Irritant Medication , Radiology Contrast, Routine Given 02/06/2024 4:43 AM EDT 120 mLs documented in this encounter Active and Recently Administered Medications Times are shown in EDT. Scheduled Medication Order 02/04/2024 02/05/2024 02/06/2024 acetaminophen (Tylenol) tablet 975 mg (COMPLETED) 975 mg, Oral, ONCE, 1 dose, On Sun02/06/24 at 0628, Maximum dose of acetaminophen is 4,000 mg from all sources in 24 hours. When ordered for pain, acetaminophen should be given even when other ordered pain medications are indicated., STAT 0721 (Given - Provid er: Richie Clements RN) PRN Medication Order 02/04/2024 02/05/2024 02/06/2024 iohexoL (Omnipaque) (350 mg/mL) solution 0-200 mL (COMPLETED) 0-200 mL, Intravenous, ONCE PRN, 1 dose, Starting on Sun02/06/24 at 0443, Until Sun02/06/24 at 0443, Per Protocol, Warning Vesicant/Irritant Medication , Radiology Contrast, Routine 0443 (Given - Provid er: Elina Camarena) documented in this encounter Care Teams Gold Blower Relationship Specialty Start Date End Date Latha Aguirre MD [address] [place] [id number] PCP - General Family Medicine 06/28/23 documented as of this encounter
--- OUTSIDE RECORDS SUMMARY | 2024-03-27 20:51 | XMS_ITS | Encounter Summary ---
Author Organization [facility] [place] [address] Care Team Providers Care Storage Battery Charger Name Role Phone Latha Aguirre MD Primary Care Provider [phone] Encounter Details Date Type Department Care Team (Latest Contact Info) Description 02/14/2024 Travel Social History Tobacco Use Types Packs/Day Years Used Date Smoking Tobacco: Never Smokeless Tobacco: Never Alcohol Use Standard Drinks/Week Comments No 0 (1 standard drink = 0.6 oz pur e alcohol) [facility] Utilities Answer Date Recorded In the [...] place to sleep or slept in a fdc (including now)? No 10/22/2023 IPV Inpatient Questions [...] PM EDT TH Visit (TeleHealth) [place] [address] Pasha Wood MD [facility] [place] [address] documented as of this encounter Visit Diagnoses Not on filedocumented in this encounter Care Teams Storage Battery Charger Relationship Specialty Start Date End Date Latha Aguirre MD [address] [place] [address] [place] [address] PCP - General Family Medicine 06/28/23 documented as of this encounter
--- OUTSIDE RECORDS SUMMARY | 2024-03-27 20:51 | XMS_ITS | Encounter Summary ---
Author Organization [facility] Address [facility] [place] [address] Care Team Providers Care Internal Sales Name Role Phone Latha Aguirre MD Primary Care Provider [phone] Reason for Visit * Reason Comments Medication Refill Encounter Details Date Type Department Care Team (Late st Contact Info) Description 01/15/2024 [place] [address] Javad Jackson MD [facility] [place] [address] Social History Tobacco Use Types Packs/Day Years Used Date Smoking Tobacco: Never Smokeless Tobacco: Never Alcohol Use Standard Drinks/Week Comments No 0 (1 standard drink = 0.6 oz pur e alcohol) [facility] Utilities Answer Date Recorded In the past 12 months has [employer], gas, oil, or water [facility] threatened to shut off services in your [...] in a fdc (including now)? 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 [...] PM EDT TH Visit (TeleHealth) [place] [address] Pasha Wood MD [facility] [place] [address] documented as of this encounter Visit Diagnoses Not on filedocumented in this encounter Care Teams Internal Sales Relationship Specialty Start Date End Date Latha Aguirre MD [address] [place] [id number] PCP - General Family Medicine 06/28/23 documented as of this encounter
--- OUTSIDE RECORDS SUMMARY | 2024-03-27 20:51 | XMS_ITS | Clinical Summary ---
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 2 days a week Active adalimumab (Humira,CF, Pen) 40 mg/0.4 mL Pen Injector KitIndications:rh eumatoid arthritis Inject 0.4 mLs subcutaneously every 14 days. Indications: rheumatoid arthritis 1 kit 5 05/31/2022 Active metroNIDAZOLE (METROCREAM) 0.75 % Cream Apply topically as needed. Active omeprazole (PriLOSEC) [address] capsule Take 40 mg by mouth daily. 12/23/2022 Active amLODIPine (Norvasc) 5 mg tablet Take 5 mg by mouth 2 times daily. Active ALPRAZolam (Xanax) 0.25 mg tablet Take 0.25 mg by mouth nightly as needed for Anxiety. 03/05/[address] (Cymbalta) [address] capsule Take 1 capsule by mouth Daily at Noon. 04/29/2023 Active clopidogreL (Plavix) 75 mg tablet Take 1 tablet by mouth daily. 90 tablet 3 07/16/2023 Active metoprolol succinate XL (Toprol-XL) 25 mg ER 24 hr tablet Take 1 tablet by mouth daily. 30 tablet 3 07/16/2023 Active nitroGLYcerin (Nitrostat) 0.[address] 1 tablet under the tongue every 5 minutes as needed for Chest pain. 90 tablet 12 07/16/2023 Active rosuvastatin (Crestor) 20 mg tablet Take 1 tablet by mouth every evening. 90 tablet 3 07/16/2023 Active aspirin 81 mg chewable tablet Take 81 mg by mouth daily. 30 tablet 3 07/17/2023 Active metoprolol succinate XL (Toprol-XL) 50 mg ER 24 hr tablet Take 50 mg by mouth daily. 10/12/2023 Active tamsulosin (Flomax) 0.4 mg capsule Take 1 capsule by mouth daily. 90 tablet 10/22/2023 Active Additional Information Patient not taking.Reported on 02/14/2024 inhalational spacing device (Space Chamber) Spacer USE DIRECTED WITH INHALER Active hydroCHLOROthiazi de (HydroDiuril) 25 mg tablet Take 1 tablet by mouth daily. Active cholecalciferoL (Vitamin D3) 1,000 unit tablet Take 1,000 Units by mouth Daily @ 0600. Active clobetasoL (TEMOVATE) 0.05 % Solution APPLY TO RASH AROUND STOMA DAILY WHEN FLARING Active buPROPion XL (Wellbutrin XL) 150 mg XL 24 hr tablet TAKE 1 TABLET (150MG) BY MOUTH EVERY MORNING Active amoxicillin-clavu lanate (Augmentin) 875-125 mg tablet Take 1 tablet every 12 hours by oral route for 10 days. 12/10/2023 Active albuteroL (Ventolin HFA) 90 mcg/actuation inhaler (HFA) Inhale 2 puffs into the lungs every 4 hours as needed. Active acetaminophen (Tylenol) 500 mg tablet Take 1 tablet by mouth 2 times daily as needed. Active losartan (Cozaar) 100 mg tablet Take 1 tablet by mouth daily. Active predniSONE (Deltasone) 1 mg tablet TAKE 2 TABLETS BY MOUTH ONCE DAILY FOR 90 DAYS 180 tablet 01/11/2024 Active Active Problems Problem Noted Date Diagnosed Date Kidney stone 10/21/2023 Left ureteral stone 09/26/2023 Bilateral nephrolithiasis 09/26/2023 NSTEMI (non-ST elevated myocardial infarction) 1 09/14/2022 Colon cancer 06/19/2019 Depression 06/19/2019 Essential hypertension 06/19/2019 Obesity (BMI 30-39.9) 06/19/2019 Seronegative rheumatoid arthritis 06/19/2019 Vitamin D deficiency 06/19/2019 NAFLD (nonalcoholic fatty liver disease) 016 Endometrial cancer 05/27/2014 Cancer Staging:Clinical:FIGO Stage IA- Unsigned Complex endometrial hyperplasia with atypia 03/31 S/P thyroidectomy 11/22/2011 Thyroid cancer 11/22/2011 Hypothyroidism 11/22/2011 Resolved Problems Problem Noted Date Diagnosed Date Resolved Date Thyroid nodule 05/10/2011 11/22/2011 Encounters Date Type Department Care Team Description 02/14/2024 11:00 AM EDT Office Visit Rheumatology at [place] [phone] Pasha Wood MD Seronegative rheumatoid arthritis 02/14/2024 Travel 02/07/2024 Telephone Urology at [place] [phone] Shari Castellanos RN 02/06/2024 1:45 AM EDT - 02/06/2024 8:25 AM EDT Emergency Emergency Department [place] [phone] Ben Vicente MD Lanter, Patricia L, MD Kidney stone on right side Discharge Disposition: Home 01/15/2024 Refill Urology at [place] [phone] Javad Jackson MD 01/09/2024 Refill Rheumatology at [place] [phone] Pasha Wood MD 01/07/2024 2:00 PM EDT Office Visit Urology at [place] [phone] Inessa Alonzo Jr., MD Kidney stone; Bilateral nephrolithiasis 01/07/2024 1:00 PM EDT - 01/07/2024 11:59 PM EDT Hospital Encounter Ultrasound at [facility] [place] [address] Inessa Alonzo Jr., MD Kidney stone Discharge Disposition: Home 01/07/2024 Travel from Last 3 Months Immunizations Name Administration Dates Next Due Influenza Vaccine, Whole 07/30/2007,07/30/2003 Pneumococcal Polysaccharide (Pneumovax 23) 07/30 Family History Medical History Relation Comments Cerebrovascular Accident Father Myocardial Infarction Father Arthritis Mother Hypertension Mother Diabetes Paternal Grandmother Arthritis Sister 1 Ulcerative Colitis Sister 2 Hypertension Sister 3 Brain Tumor Sister 4 Pituitary adenom a Breast Cancer Neg Hx Colorectal Cancer Neg Hx Ovarian Cancer Neg Hx Pancreatic Cancer Neg Hx Uterine Cancer Neg Hx Relation Status Comments Father (Age 57) from [place] Mother (Age 89) Old age Paternal Grandmother Sister 1 Sister 2 Sister 3 Sister 4 Social History Tobacco Use Types Packs/Day Years Used Date Smoking Tobacco: Never Smokeless Tobacco: Never Tobacco Cessation:Counseling Given: Not Answered Alcohol Use Standard Drinks/Week Comments No 0 (1 standard drink = 0.6 oz pur e alcohol) [facility] Utilities Answer Date Recorded In the past 12 months has th e [employer], gas, oil, or water Janalakshmi threatened to shut off services in your [...] place to sleep or slept in a halfway (including now)? No 10/22/2023 [facility] Inpatient Questions Answer Date Recorded Does Anyone [...] on file Sexual Orientation Not on file Last Filed Vital Signs Vital Sign Reading [...] Mass Index 36.9 02/14/2024 10:42 AM EDT Plan of Treatment Upcoming Encounters Date Type Department Care Team (Late st Contact Info) Description 05/15/2024 1:00 PM EDT TH Visit (TeleHealth) [place] [address] Pasha Wood MD [facility] [place] [address] Health Maintenance Due Date Last Done Comments CT Colonography 1950 Colonoscopy 1950 Colorectal Cancer Screening 1950 FIT DNA 1950 FIT 1950 Sigmoidoscopy (10 year) with FIT yearly 1950 Sigmoidoscopy 1950 Tdap adult 1969 Tetanus vaccine 1969 Breast Cancer Share Decision Needed 1990 Breast Cancer screening 1990 Zoster vaccine (1 of 2) 2000 Pneumoccocal Vaccine: 65+ (2 of 2 - PCV) 07/30/2007 07/30/2006 Bone Density Scan 11/26/2015 Covid-19 Vaccine (1 - 2022-2 4 season) 2023 Influenza (Flu) vaccine (1 o f 1 - Influenza standard series) 03/30/2024 07/30/2007, 07/30/2003 Hepatitis C Screening Completed 05/05/2021 Lipid Screening Discontinued 07/15/2023 Diabetes Screening (HgbA1C o r Glucose) Discontinued 02/06/2024, 10/21/2023, 09/26/2023, Additional history exists Medical Devices Explanted Type Area Slab Polisher Device Identifier Shelf Expiration Date Model / Serial / Lot Stent,Contour -[id number] cm ([id number]) - [id number] Implanted:Qty : 1 on 06/19/2013 by Inessa Alonzo Jr., MD at [facility] Explanted:Qty : 1 on 11/01/2023 by Inessa Alonzo Jr., MD at [facility] IMPLANTS Left: Ureter 09/27/2015 [id number] / / [id number] Description:Implant was not present in the patient Stent Ureteral [id number] Set Dbl Pgtl Tpr Tip Ptfe Hyconi ([id number]) - [id number] Implanted:Qty : 1 on 10/21/2023 by Inessa Alonzo Jr., MD at [facility] Explanted:Qty : 1 on 11/01/2023 by Inessa Alonzo Jr., MD at [facility] IMPLANTS Left: Ureter Emergent Views - [employer]quare [id number] 07/19/2026 [id number] / / [id number] Stent Ureteral [id number] Dbl Pgtl Soft Ptfe Tria ([id number]) - [id number] Implanted:Qty : 1 on 11/01/2023 by Inessa Alonzo Jr., MD at [facility] Explanted:Qty : 1 on 11/19/2023 by Inessa Alonzo Jr., MD IMPLANTS Left: Ureter Ripl [id number] 07/03/2026 [id number] Procedures Procedure Name Priority Date/Time Associated Diagnosis Comments URINALYSIS MICROSCOPIC EXAM STAT 02/06/2024 6:30 AM EDT URINALYSIS WITH REFLEX CULTURE STAT 02/06/2024 6:30 AM EDT EKG 12-LEAD STAT 02/06/2024 6:[address] ABDOMEN AND PELVIS W CONTRAST STAT 02/06/2024 4:42 AM EDT BASIC METABOLIC PANEL STAT 02/06/2024 3:17 AM EDT LIPASE STAT 02/06/2024 3:17 AM EDT DIFFERENTIAL, AUTOMATED STAT 02/06/20 3:17 AM EDT HEMOGRAM STAT 02/06/2024 3:17 AM EDT LAVENDER TUBE HOLD STAT 02/06/2024 3: 17 AM EDT BLUE TUBE HOLD STAT 02/06/2024 3:17 AM EDT HEPATIC FUNCTION PANEL STAT 3:17 AM EDT US RETROPERITONEAL COMPLETE Routine 01/07/2024 1:35 PM EDT Kidney stone HDL/CHOL PROFILE Routine 07/15/2023 12:0 6 AM EST HC HEPATITIS C ANTIBODY Routine 05/05/20 11:01 AM EDT Seronegative rheumatoid arthritis from Last 3 Months or Most Recently Relevant to Health Maintenance Results * (ABNORMAL) Urinalysis Microscopic Exam (02/06/2024 6:30 AM EDT) RBC, Urine 16(H) 0 - 4 /HPF [facility] WBC, Urine 1 0 - 5 /HPF [facility] Hyaline Casts, Urine 1 0 - 2 /LPF [facility] Clean Catch Urine 02/06/2024 6:30 AM EDT 02/06/2024 7:06 AM EDT Narrative Resulting Agency Comment Spec In Lab Ben Vicente MD URINE ORDERABLES [facility] [place] [address] * (ABNORMAL) Urinalysis with reflex Culture (02/06/2024 6:30 AM EDT) Glucose, Urine Dipstick Negative Negative mg/dL [facility] Protein, Urine Dipstick Negative Negative mg/dL [facility] Bilirubin, Urine Dipstick Negative Negative mg/dL [facility] Comment: Clinical correlation required for positive Urine Bilirubin results as false positive may occur with some drugs and drug related products. If a false positive is suspected a serum total bilirubin should be considered if clinically indicated. Urobilinogen, Urine Dipstick Normal Normal mg/dL [facility] pH, Urn (dipstick) 6.5 5.0 - 8.0 [facility] Blood, Urine Dipstick Moderate(A) Negative mg/dL [facility] Ketone, Urine Dipstick Negative Negative mg/dL [facility] Nitrite, Urine Dipstick Negative Negative [facility] Leukocytes, Urine Dipstick Negative Negative [facility] Appearance, Urine Dipstick Clear Clear [facility] Specific [place] Urine Automated >=1.030(A) 1.005 - 1.030 [facility] Color, Urine Dipstick Yellow Yellow [facility] Reflex to Culture No [facility] Clean Catch Urine 02/06/2024 6:30 AM EDT 02/06/2024 7:06 AM EDT Narrative Resulting Agency Comment Spec In Lab Ben Vicente MD URINE ORDERABLES [facility] [place] [address] * EKG 12 Lead (02/06/2024 6:29 AM EDT) Ventricular rate 72 BPM MUSE SYSTEM Atrial Rate 72 BPM MUSE SYSTEM P-R Interval 154 ms MUSE SYSTEM QRS Duration 96 ms MUSE SYSTEM Q-T Interval 394 ms MUSE SYSTEM QTC Calculated (Bezet) 431 ms MUSE SYSTEM Calculated P [place] 11 degrees MUSE SYSTEM Calculated R [place] 7 degrees MUSE SYSTEM Calculated T [place] 116 degrees MUSE SYSTEM INTERPRETATION Normal sinus rhythm Minimal voltage criteria for LVH, may be normal variant ( Pecan Gap product ) T wave abnormality, consider lateral ischemia Abnormal ECG When compared with ECG of 15-JUL-2023 12:09, T wave inversion now evident in Lateral leads Confirmed by Henry Spivey ([id number]) on 02/10/2024 5:55:31 PM MUSE SYSTEM 02/06/2024 6:29 AM EDT 02/10/2024 5:55 PM EDT Ben Vicente MD ECG ORDERABLES Performing Organization Address [facility] Co de Phone Number MUSE SYSTEM * (ABNORMAL) CT Abdomen & Pelvis w Contrast (02/06/2024 4:42 AM EDT) WORKSTATION ID [id number] RAD Anatomical Region Laterality Modality Abdomen, Pelvis [...] who have questions please contact the health field care advocate that requested your imaging first. ? Electronically signed by: Allyn Campos MD, [facility] ([phone]), at 02/06/2024 5:37 AM Narrative 02/06/2024 5:37 [...] Ben Vicente MD IMG CT ORDERABLES * (ABNORMAL) Hemogram (02/06/2024 3:17 AM EDT) White Blood Cell 9.5 4.0 - 9.5 x10(3)/ L [facility] Red Blood Cell 4.47 4.00 - 5.21 x10(6)/[facility] Hemoglobin 14.0 11.7 - 15.5 g/dL [facility] Hematocrit 43.1 35.7 - 45.8 % [facility] Mean Cell Volume 96.4(H) 82.6 - 94.4 fL [facility] Mean Cell Hemoglobin 31.3 27.1 - 32.0 pg [facility] Mean Cell Hemoglobin Concentration 32.5 31.7 - 35.0 g/dL [facility] Platelet 333 145 - 357 x10(3)/[facility] RDW Standard Deviation 49.3(H) 37.0 - 46.0 [facility] RDW coefficient of variation 13.9 11.5 - 14.1 % [facility] Mean Platelet Volume 9.2 7.6 - 12.9 fL [facility] NRBC% auto 0.0 % [facility] NRBC Absolute 0.000 0.000 - 0.000 x10(3)/[facility] Blood Venous Draw / Unknown 02/06/2024 3:17 AM EDT 02/06/2024 4:32 AM EDT Narrative Resulting Agency Comment Spec In Lab Ubaldo Maher MD HEMATOLOGY ORDERABLE S [facility] [place] [address] * (ABNORMAL) Differential, Automated (02/06/2024 3:17 AM EDT) Pathologist [facility] Neutrophil % 65.9 % [facility] Neutrophil Absolute 6.24(H) 1.70 - 6.10 x10(3)/[facility] Lymph % 21.8 % [facility] Lymphocytes Abs 2.1 0.9 - 3.2 x10(3)/[facility] Monocyte % 10.0 % [facility] Monocyte Abs 1.0(H) 0.3 - 0.9 x10(3)/[facility] Eos % 1.3 % [facility] Eosinophils Abs 0.1 0.0 - 0.4 x10(3)/[facility] Basophil % 0.5 % [facility] Baso Absolute 0.0 0.0 - 0.1 x10(3)/[facility] Immature Gran % 0.50 % [facility] Comment: Immature granulocytes(IG's)percentage and absolute count will include metamyelocytes, myelocytes, and promyelocytes. Blood smears from CBCs yielding IG's will be scanned manually for concordance. If this scan disagrees with the automated IG or if promyelocytes are noted, a manual differential will be performed. Immature Gran Absolute 0.05(H) 0.00 - 0.04 x10(3)/[facility] Blood Venous Draw / Unknown 02/06/2024 3:17 AM EDT 02/06/2024 4:32 AM EDT Narrative Resulting Agency Comment Spec In Lab Ubaldo Maher MD HEMATOLOGY ORDERABLE S [facility] [place] [address] * Blue Tube HOLD (02/06/2024 3:17 AM EDT) Blue Hold Sample in lab. [facility] Blood Venous Draw / Unknown 02/06/2024 3:17 AM EDT 02/06/2024 4:[address] Franck Petit MD HEMATOLOGY ORDERABLE S [facility] [place] [address] * Lavender Tube HOLD (02/06/2024 3:17 AM EDT) Lavender Hold Sample in lab. [facility] Blood Venous Draw / Unknown 02/06/2024 3:17 AM EDT 02/06/2024 4:[address] Franck Petit MD HEMATOLOGY ORDERABLE S Performing Organization Address City/[facility]/ZIP Co de Phone Number [facility] [place] [address] * Lipase (02/06/2024 3:17 AM EDT) Lipase 27 0 - 60 unit/L [facility] Blood Venous Draw / Unknown 02/06/2024 3:17 AM EDT 02/06/2024 4:19 AM EDT Narrative Resulting Agency Comment Spec In Lab Ubaldo Maher MD CHEMISTRY ORDERABLES Performing Organization Address City/[facility]/ZIP Co de Phone Number [facility] [place] [address] * Hepatic Function Panel (02/06/2024 3:17 AM EDT) Protein, Total 7.4 6.1 - 8.0 g/dL [facility] Albumin 4.2 3.2 - 5.2 g/dL [facility] Aspartate Aminotransferase 22 0 - 30 unit/L [facility] Alanine Aminotransferase 17 0 - 30 unit/L [facility] Alkaline Phosphatase 91 35 - 105 unit/L [facility] Bilirubin, Total 0.3 0.2 - 1.3 mg/dL [facility] Bilirubin, Direct 0.1 0.0 - 0.3 mg/dL [facility] Blood 02/06/2024 3:17 AM EDT 02/06/2024 4:19 AM EDT Narrative Resulting Agency Comment Spec In Lab Ben Vicente MD CHEMISTRY ORDERABLES [facility] [place] [address] * Basic Metabolic Panel (non-fasting) (02/06/2024 3:17 AM EDT) Glucose 127 65 - 199 mg/dL [facility] Comment:Diabetes: >=200 mg/d L plus symptoms Blood Urea Nitrogen 18 8 - 18 mg/dL [facility] Creatinine 0.78 0.70 - 1.20 mg/dL [facility] Sodium 143 135 - 145 mmol/L [facility] Potassium 4.2 3.5 - 5.0 mmol/L [facility] Comment: Please note: ??Patients with WBC >100,000 may have falsely elevated Potassium levels. ??For accurate Potassium quantification in these patients send serum separator tube (gold top) for subsequent determinations. ??Contact the Clinical Chemistry Laboratory if there are any questions. Chloride 106 98 - 107 mmol/L [facility] Carbon Dioxide 23 22 - 31 mmol/L [facility] Anion Gap 14 5 - 15 mmol/L [facility] Calcium 10.3 8.5 - 10.5 mg/dL [facility] Est Glomerular Filtration Rate 80 >=60 mL/min/1. 73 m?? [facility] Comment: This patient's estimated GFR was [...] In Lab Ubaldo Maher MD CHEMISTRY ORDERABLES [facility] [place] [address] * US Retroperitoneal Complete (01/07/2024 1:35 PM EDT) WORKSTATION ID [id number] RAD Anatomical Region Laterality Modality Abdomen Ultrasound 01/07/2024 1:05 PM EDT Impressions 01/07/2024 2:28 PM EDT 1. ??Nonobstructing right nephrolithiasis, the largest of which measures 9 mm. 2. ??No additional sonographically evident nephrolithiasis. 3. ??No collecting system dilatation, bilaterally. 4. ??Small simple bilateral renal cysts as above. 5. ??Normal contour of the partially distended bladder. No bladder calculi. I have personally reviewed the image(s) and the resident's interpretation and agree with the findings, [place] Loya MD at 01/07/2024 2:21 PM Electronically signed by: [place] Loya MD, [facility] ([phone]), at 01/07/2024 2:21 PM Thank you for letting us participate in the care of this patient. If you are a health care provider and have any questions regarding this report, please contact the number above. For patients who have questions, please contact the health field care advocate that requested your imaging first. ?[place] Loya Sam Blending Tank Tender Electronically Signed Final Report ?? 01/07/2024 02:27 pm Narrative 01/07/2024 2:28 PM EDT Renal ? (Signed Final 01/07/2024 02:27 pm) PATIENT INFO: ID #: ? [id number] ?: ??[birth year] (73 yrs)(F) Name: ? PAUL ADAMES ?Visit Date: 01/07/2024 01:05 pm PERFORMED BY: Attending: ?Shalini LU, [place] Zamarripa Resident: ? Rocky Giang MD Performed By: ? Louise Gillespie RDMS Referred By: ?INESSA ALONZO JR Location: ? [place] SERVICE(S) PROVIDED: URETRO - Retroperitoneal Complete - [id number] ? [id number] INDICATIONS: Stones s/p URS, narrowed ureter, eval hydro COMPARISON: CT abdomen/pelvis ??10/15/23 Renal/bladder ultrasound 08/20/13 RIGHT KIDNEY: Size (cm) ?L: ??12.9 Cortical Thickness: ?Normal Cortical Echogenicity: ?? Normal Hydronephrosis: ?No sonographic evidence Comment: ?Several non-obstructing renal calculi seen, largest ? measuring 9 mm. ? At least 2 simple cysts visualized, largest superior ? measuring 1.1 x 1.1 x 1 cm. LEFT KIDNEY: Size (cm) ?L: ??11.6 Cortical Thickness: ?Normal Cortical Echogenicity: ?? Normal Hydronephrosis: ?No sonographic evidence Comment: ?No renal calculi seen. ? 2 simple cysts seen, largest superior pole ? measuring 1.5 x 1.7 x 1.3 cm. URINARY BLADDER: Right Urinary Jet: Visualized Left Urinary Jet: ??Visualized Pre-void (cm) ? L: ??6.3 ? AP: ??9.1 ? TV: ??6.5 Vol (ml): ?195.1 Comment: ?Partially distended, normal contour. ??No bladder ? calculi seen. Procedure Note [place] Loya MD - 01/07/2024 Renal (Signed Final 01/07/2024 02:27 pm) PATIENT INFO: ID #: [id number] : 50 (73 yrs)(F) Name: PAUL ADAMES Visit Date: 01/07/2024 01:05 pm PERFORMED BY: Attending: [place] Loya MD Resident: Rocky Giang MD Performed By: Louise Gillespie RDMS Referred By: INESSA ALONZO JR Location: [place] SERVICE(S) PROVIDED: URETRO - Retroperitoneal Complete - [id number] INDICATIONS: Stones s/p URS, narrowed ureter, eval hydro COMPARISON: CT abdomen/pelvis 10/15/23 Renal/bladder ultrasound 08/20/13 RIGHT KIDNEY: Size (cm) L: 12.9 Cortical Thickness: Normal Cortical Echogenicity: Normal Hydronephrosis: No sonographic evidence Comment: Several non-obstructing renal calculi seen, largest measuring 9 mm. At least 2 simple cysts visualized, largest superior measuring 1.1 x 1.1 x 1 cm. LEFT KIDNEY: Size (cm) L: 11.6 Cortical Thickness: Normal Cortical Echogenicity: Normal Hydronephrosis: No sonographic evidence Comment: No renal calculi seen. 2 simple cysts seen, largest superior pole measuring 1.5 x 1.7 x 1.3 cm. URINARY BLADDER: Right Urinary Jet: Visualized Left Urinary Jet: Visualized Pre-void (cm) L: 6.3 AP: 9.1 TV: 6.5 Vol (ml): 195.1 Comment: Partially distended, normal contour. No bladder calculi seen. IMPRESSION 1. Nonobstructing right nephrolithiasis, the largest [...] signed by: [place] Loya MD, [facility] ([phone]), at 01/07/2024 2:21 PM Thank you for letting us participate in the care of this patient. If you are a health care provider and have any questions regarding this report, please contact the number above. For patients who have questions, please contact the health field care advocate that requested your imaging first. [place] Loya, [facility] Blending Tank Tender Electronically Signed Final Report 01/07/2024 02:27 pm Inessa Alonzo Jr., MD IM US GEN ORDERAB LES * HDL/Cholesterol Profile (07/15/2023 12:06 AM EST) [facility] Signature Cholesterol, Total 142 mg/dL [facility] Comment: Lower Risk: <200 mg/dL Average Risk: 200-239 mg/dL Higher Risk: >ta=736 mg/dL HDL Cholesterol 69 mg/dL [facility] Comment: Males: ?? Higher Risk: <40 mg/dL Females: ?? Higher Risk: <50 mg/dL Cholesterol/HDL Ratio 2.1 ratio [facility] Chol/HDL Interpretation See Note [facility] Comment: Lipid management should be guided by a patient? s ASCVD risk, goals and preferences. ACC/AHA Guidelines recommend high intensity statin if clinical ASCVD or LDL greater than or equal to 190 mg/dL. http://tinyurl.com/TAL-CYE-Ziajvxfzi Measure LDL if Total Cholesterol minus HDL Cholesterol is greater than 220 mg/dL. Adults aged 40-75 with LDL 70-189 mg/dL should have their 10 year ASCVD risk estimated with the ACC/AHA ASCVD risk estimator paperboard boxes http://tools.acc.org/MCRPQ-Bnhx-Lurorwkmj/ Statin should be discussed if risk greater than or equal to 7.5% in non-diabetics. With diabetes, moderate intensity statin is recommended if risk less than 7.5%, high intensity if risk greater than or equal to 7.5%. Annual lipid monitoring on statins is not necessary. Lifestyle modification is a critical component of ASCVD risk reduction. Blood 07/15/2023 12:0 6 AM EST 07/15/2023 12:11 AM EST Narrative Resulting Agency Comment Spec In Lab Sami Ray MD CHEMISTRY ORDERABLES Performing Organization Address City/[facility]/ZIP Co de Phone Number [facility] [place] [address] * Hepatitis C Antibody (05/05/2021 11:01 AM EDT) Hepatitis C Antibody Negative Negative [facility] Blood 05/05/2021 11:0 1 AM EDT 05/05/2021 11:08 AM EDT Narrative Resulting Agency Comment Spec In Lab Pasha Wood MD CHEMISTRY ORDERABLES Performing Organization Address [facility] Co de Phone Number [facility] [address] from Last 3 Months or Most Recently Relevant to Health Maintenance Advance Directives Documents on File Type Date Recorded 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 Expl anation Advance Directives and Jessy champion Will 09/28/2010 10:06 AM * Attempt Cardiopulmonary Resuscitation - Inpatient (Latest Code Status on File) Date Activated Date Inactivated Comments 10/21/2023 12:34 PM 10/22/2023 12:53 PM Question Answer Comments Code Status decision made by: Patient * Attempt Cardiopulmonary Resuscitation - Inpatient Date Activated Date Inactivated Comments 07/14/2023 4:49 PM 07/16/2023 2:41 PM Question Answer Comments Code Status decision made by: Patient * Full Code Date Activated Date Inactivated Comments 05/26/2014 12:31 PM 05/29/2014 1:08 PM Question Answer Comments Order Status: Initial Order Does patient have decision m aking capacity? Yes, Order is based on Patients wishes. * Full Code Date Activated Date Inactivated Comments 05/26/2014 6:02 AM 05/26/2014 12:31 PM * Full Code Date Activated Date Inactivated Comments 06/19/2013 5:15 PM 06/20/2013 7:56 PM Question Answer Comments Order Status: Initial Order Does patient have decision m aking capacity? Yes, Order is based on Patients wishes. Care Teams Armature Winder Repairer Relationship Specialty Start Date End Date Latha Aguirre MD [address] [place] [address] PCP - General Family Medicine 06/28/23
--- OUTSIDE RECORDS SUMMARY | 2024-03-27 20:51 | XMS_ITS | Encounter Summary ---
[place] [address] Care Team Providers Care Price Economist Name Role Phone Latha Aguirre MD Primary Care Provider [phone] Encounter Details Date Type Department Care Team (Late st Contact Info) Description 02/07/2024 [place] [address] Shari Castellanos, RN Social History Tobacco Use Types Packs/Day Years Used Date Smoking Tobacco: Never Smokeless Tobacco: Never Alcohol Use Standard Drinks/Week Comments No 0 (1 standard drink = 0.6 oz pur e alcohol) [facility] Utilities Answer Date Recorded In the past 12 months has e electric, gas, oil, or water [employer] threatened to shut off services in your [...] place to sleep or slept in a longterm (including now)? No 10/22/2023 DH IPV Inpatient [...] on file documented as of this encounter Progress Notes * Shari Castellanos RN - 02/12/2024 8:41 AM EDT Call placed to patient x2 to review message per Dr. Alonzo, no answer, LVM to return call. * Shari Castellanos RN - 02/08/2024 11:02 AM EDT Call placed to patient to review message below per Dr. Alonzo, no answer, LVM to return call. documented in this encounter Miscellaneous Notes * Telephone Encounter - Shari Castellanos RN - 02/07/2024 11:59 AM EDT Copied from [facility] #[id number]. Topic: Specialty Dept CRMs - Triage >> Feb 07, 2024 11:44 AM Tess Esposito wrote: Triage Message Specialist: Dr Cheri MD Relationship (if other than patient-full name): Page Katz Symptom: kidney stone Has patient experienced symptom before went to ER If patient has experienced symptom before, when was the last time this occurred this year Is patient currently having symptom no When did symptom begin 2 days ago Additional Comments: patient was admitted two days ago to ER, was admitted on released yesterday. Wanted provider to be aware. documented in this encounter Plan of Treatment Upcoming Encounters Date Type Department Care Team (Late st Contact Info) Description 05/15/2024 1:00 PM EDT TH Visit (TeleHealth) [place] [address] Pasha Wood MD [facility] [place] [address] documented as of this encounter Visit Diagnoses Not on filedocumented in this encounter Care Teams Price Economist Relationship Specialty Start Date End Date Latha Aguirre MD [address] [place] [id number] PCP - General Family Medicine 06/28/23 documented as of this encounter
--- OUTSIDE RECORDS SUMMARY | 2024-03-27 20:52 | XMS_ITS | Encounter Summary ---
Author Organization [facility] Address [facility] [place] [address] Care Team Providers Care Drug Safety Specialist Name Role Phone Latha Aguirre MD Primary Care Provider Encounter Details Date Type Department Care Team (Late st Contact Info) Description 11/01/2023 10:15 AM EDT - 11/01/2023 1:36 PM EDT Surgery [place] [phone] Inessa Alonzo Jr., MD [facility] [place] [address] CYSTOURETEROSCOPY,DIAG NOSTIC,W/ LITHOTRIPSY INC. INSERTION OF INDWELLING URETERAL STENT (WRVU 8) Social History Tobacco Use Types Packs/Day Years Used Date Smoking Tobacco: Never Smokeless Tobacco: Never Alcohol Use Standard Drinks/Week Comments No 0 (1 standard drink = 0.6 oz pur e alcohol) [facility] Utilities Answer Date Recorded In the past 12 months has [employer] electric, gas, oil, or water company threatened [...] place to sleep or slept in a group home (including now)? No 10/22/2023 DH IPV Inpatient [...] Sign Reading Time Taken Comments Blood Pressure 137/62 11/01/2023 12:45 PM EDT Pulse 73 11/01/2023 12:30 PM EDT Temperature 37.2 ??C (99 ??F) 11/01/2023 12:45 PM EDT Respiratory Rate 16 11/01/2023 12:30 PM EDT Oxygen Saturation 95% 11/01/2023 12:45 PM EDT Inhaled Oxygen Concentration - - Weight 92.5 kg (204 lb) 11/01/2023 8:43 AM EDT Height 157.5 cm (5' 2) 11/01/2023 8:43 AM EDT Body Mass Index 37.31 11/01/2023 8:43 AM EDT documented in this encounter Discharge Instructions * Patient Instructions* Javad Jackson MD - 11/01/2023 11:18 AM EDT DISCHARGE INSTRUCTIONS CALL YOUR PHYSICIAN IF: You have a fever greater than 101 degrees F within one month of your surgery. You have diarrhea or vomiting for more than 24 hours, or stop having bowel movements or passing gas. You have worsening pain, not controlled with your pain medication. You are unable to urinate due to blood clots in your bladder. You have any other acute change in your health status. MEDICATIONS Take ibuprofen 600 mg every 8 hours as needed. Take acetaminophen (Tylenol) 500-1000 mg every 6 hours as needed. DRIVING RESTRICTIONS Do not operate a vehicle if you are too sore from surgery to enter or exit your vehicle comfortably, or if you are too sore to easily check your blind spot. ACTIVITIES No formal restrictions. Your activities may be determined by how well your tolerate the discomfort associated with your stent. Most patients experience some degree of discomfort, and this is normal. Symptoms include flank pain (increased during urination), frequency and urgency of urination, burning or pain in the bladderor urethra with urination, pelvic discomfort, and blood in the urine. To manage your stent symptoms, drink a minimum of 2 L of fluids daily and take acetaminophen or ibuprofen. Use narcotics as prescribed. DIET You may resume a regular diet. COMFORT Some patients experience irritation or discomfort associated with the stent. Take your medication as needed and prescribed. Slowly decrease your use of pain medication as pain lessens. CONTACT INFORMATION To contact your provider or change your appointment, please call the Urology clinic at during business hours or during off-hours. FOLLOW-UP APPOINTMENT Future Appointments and Orders Future Appointments and Orders Future Appointments Provider Department Dept Phone 02/14/2024 11:00 AM Pasha Wood MD [facility] at [facility] Arrive at: [facility] [phone] You will return for stent removal in 3 weeks and a follow up in 6 weeks with an ultrasound. We willsend you the date and time. Please remember that you have a ureteral stent in place. A stent is not a permanent device and mustbe removed as instructed by your urologist; failure to remove a stent may result in the need for more procedures. documented in this encounter Medications at Time of Discharge Medication Sig Dispensed Refills Start Date End Date tamsulosin (Flomax) 0.4 mg capsule Take 1 [...] by mouth daily. 2 days a week Maaetloofolcc-Vw-Hep n-Minerals (ONE-A-DAY WOMENS FORMULA) 27-0.4 mg Tab 08/19/2009 predniSONE (Deltasone) 1 mg tablet Take 2 mg by mouth daily. 10/10/2023 01/11/2024 documented as of this encounter H&P Notes * Javad Jackson MD - 11/01/2023 8:40 AM EDT Patient Name: Paul Adames Age: 72 y.o. Date of : 1950 Attending Provider: Inessa Alonzo Jr., MD Paul Adames is a 72 y.o. female with history of colostomy and a left ureteral stone, presenting for planned left URS and ll. No recent changes to health status. Underwent stenting on 10/21/23. Ucx negative - Ancef MEDICAL AND SURGICAL HISTORY Past Medical History: Diagnosis Date Arthritis Blood transfusion Complex endometrial hyperplasia with atypia 04/22/2014 Crohn's disease Depression History of colon cancer Moderately differentiated adenocarcinoma pT2 pN0 pMx Hypertension well controlled on medications Nephrolithiasis Non-alcoholic fatty liver disease Diagnosed on liver wedge biopsy at time of open cholecystectomy in 2008 Obesity BMI 43 Polymyalgia rheumatica Postmenopausal bleeding 02/2014 Thyroid disease Papillary carcinoma s/p total thyroidectomy; Hypothyroidism Past Surgical History: Procedure Laterality Date CHOLECYSTECTOMY 10/22/2008 Open cholecystectomy DILATION AND CURETTAGE OF UTERUS 04/22/2014 Path showed complex endometrial hyperplasia w/ atypia ILEOSTOMY OR JEJUNOSTOMY 01/04/2006 For Crohn's Disease and colon cancer PRG SOMATOSENSORY TEST, ANY/ALL PER. NERVES, TRUNK OR HEAD 10/13/2011 FACIAL NERVE MONITORING, SETUP performed by RICK CARD at [facility] MAIN OR PRO CYSTOSCOPY, INSERT URETERAL STENT Left 10/21/2023 CYSTO, STENT PLACEMENT (WRVU 2.82) performed by Inessa Alonzo Jr., MD at [facility] MAIN OR PRO CYSTOURETHROSCOPY, URETER CATHETER 06/19/2013 CYSTO, RETROGRADE, URETEROPYELOGRAPHY performed by Inessa Alonzo Jr., MD at [facility] MAIN OR PRO ILEOSCOPY THRU STOMA, BIOPSY N/A 12/09/2015 ILEOSCOPY W/ BIOPSY performed by Isael Christianson MD at [facility] ENDOSCOPY PRO PERCUT DILATN RENAL TRACT 06/19/2013 PERCUTANEOUS INTRO GUIDE WIRE TO ACCESS RENAL PELVIS,AND OR URETER, W\DILATION performed by Inessa Alonzo Jr., MD at [facility] MAIN OR PRO PERQ NL/PL LITHOTRIPSY COMPLEX >2 CM LASER/ELECTRO OPTICS TECHNICIAN LOCATIONS 06/19/2013 NEPHROLITHOTOMY, ([facility]) PERCUTANEOUS, OVER 2CM performed by Inessa Alonzo Jr., MD at [facility] MAIN OR PRO THYROIDECTOMY 10/13/2011 THYROIDECTOMY, TOTAL OR COMPLETE performed by RICK CARD at [facility] MAIN OR PRO TOTAL ABDOM HYSTERECTOMY 05/26/2014 @HYSTERECTOMY, TOTAL ABD., W W/O BSO performed by Carmen Montana MD at [facility] MAIN OR PROCTECTOMY 01/04/2006 For Crohn's Disease and colon cancer TOTAL COLECTOMY 01/04/2006 For Crohn's Disease and colon cancer TOTAL KNEE ARTHROPLASTY 2006, 2010 Bilateral knee replacements ALLERGIES Allergies Allergen Reactions Atorvastatin Other reaction(s): elevated LFTs Fentanyl Other reaction(s): altered mental status Other [Unclassified Drug] Other (See Comments) Pain Patch(drug unknown) Fentanyl- confused hallucinations MEDICATIONS No current facility-administered medications on file prior to encounter. Current Outpatient Medications on File Prior to Encounter Medication Sig Dispense Refill metoprolol succinate XL (Toprol-XL) 50 mg ER 24 hr tablet Take 50 mg by mouth daily. predniSONE (Deltasone) 1 mg tablet Take 2 mg by mouth daily. clopidogreL (Plavix) 75 mg tablet Take 1 tablet by mouth daily. 90 tablet 3 metoprolol succinate XL (Toprol-XL) 25 mg ER 24 hr tablet Take 1 tablet by mouth daily. 30 tablet 3 rosuvastatin (Crestor) 20 mg tablet Take 1 tablet by mouth every evening. 90 tablet 3 aspirin 81 mg chewable tablet Take 81 mg by mouth daily. 30 tablet 3 amLODIPine (Norvasc) 5 mg tablet Take 5 mg by mouth 2 times daily. ALPRAZolam (Xanax) 0.25 mg tablet Take 0.25 mg by mouth nightly as needed for Anxiety. DULoxetine DR (Cymbalta) [address] capsule Take 1 capsule by mouth Daily at Noon. hydroCHLOROthiazide (Hydrodiuril) 25 mg tablet Take 25 mg by mouth daily. omeprazole (PriLOSEC) [address] capsule Take 40 mg by mouth daily. adalimumab (Humira,CF, Pen) 40 mg/0.4 mL Pen Injector Kit Inject 0.4 mLs subcutaneously every 14 days. Indications: rheumatoid arthritis 1 kit 5 losartan (COZAAR) 100 mg Tablet Take 100 mg by mouth daily. levothyroxine (SYNTHROID) 125 mcg Tablet Take 125 mcg by mouth daily. 2 days a week Yphqgwtlpspac-Pl-Mcqh-Minerals (ONE-A-DAY WOMENS FORMULA) 27-0.4 mg Tab nitroGLYcerin (Nitrostat) 0.[address] 1 tablet under the tongue every 5 minutes as needed for Chest pain. 90 tablet 12 metroNIDAZOLE (METROCREAM) 0.75 % Cream Apply topically as needed. PHYSICAL EXAM Temp: -- Heart Rate: -- Resp: -- BP: -- SpO2: -- Heart Rate from SpO2: -- GEN: Resting comfortably in bed, conversant, NAD. CHEST: Normal work of breathing. CV: Sinus rhythm. 2+ pulses bilaterally. ABD: Soft, non-tender, non-distended. EXTR: Moving spontaneously. SKIN: Warm and dry. NEURO: Alert and follows commands. ASSESSMENT / PLAN 72 y.o. female presenting for left URS with LL. Patient appears fit for surgery. The details, alternatives, risks, and benefits of the procedure were reviewed, and the patient wishes to proceed. Informed consent has been obtained. All questions were answered to the patient's satisfaction. Proceed with surgery. The patient's history and physical exam have been reviewed and completed. There has been no interval change from that of the pre-operative history and physical exam performed within the last 30 days. documented in this encounter Miscellaneous Notes * Brief Op Note - Inessa Alonzo Jr., MD - 11/01/2023 11:09 AM EDT Brief Operative Note Patient Name: Paul Adames : [id number] MR#: [id number] Case Date: 11/01/2023 Surgeon: Surgeon(s) and Role: * Inessa Alonzo Jr., MD - Primary * Javad Jackson MD - Resident - Assisting Preoperative diagnosis: left ureteral stone Postoperative diagnosis: impacted left ureteral stone Procedure(s) (LRB): CYSTOURETEROSCOPY,DIAGNOSTIC,W/ LITHOTRIPSY INC. INSERTION OF INDWELLING URETERAL STENT (WRVU 8) (Left) MODIFIER HOLMIUM LASER (N/A) CYSTO, REMOVAL OF STENT, FOREIGN BODY OR CALCULUS, SIMPLE (WRVU 2.81) (Left) Anesthesia: General Findings: impacted left ureteral stone, with marked edematous mucosal changes surrounding stone. Stone fragmented and all fragments extracted. Fluoroscopically and endoscopically stone free at procedure conclusion. Stent replaced due to impacted stone Complications: none evident Intake: Intraprocedure Crystalloid Total Intake lactated ringers infusion 800.00 mL ceFAZolin (Ancef) 2 g vial attach to sodium chloride 0.9% 100 mL Mini-Bag Plus 100.00 mL Total Intake 900 mL Transfusion No data found in the last 1 encounters. Output: Estimated Blood Loss: Urine Output:: (no urine output recorded) Other Output: (no other output recorded) Drains: 6fr 26 cm Tria left ureteral stent Specimens removed during surgery: stone for analysis; urine for culture Disposition: awakened from anesthesia, extubated and taken to the recovery room in a stable condition, having suffered no apparent untoward event. Condition: doing well without problems Attestation: Case Date: 11/01/2023 I was present and I participated during the entire procedure. (Please see the Surgical Encounter Summary for any Implant and Specimen details pertinent to this patient.) * Op Note - Javad Jackson MD - 11/01/2023 9:48 AM EDT [facility] Operative Note Patient Name: Paul Adames : [id number] MR#: [id number] Case Date: 11/01/2023 Surgeon: Surgeon(s) and Role: * Inessa Alonzo Jr., MD - Primary * Javad Jackson MD - Resident - Assisting Preoperative diagnosis: left ureteral stone Postoperative diagnosis: impacted left ureteral stone Procedure(s) (LRB): CYSTOURETEROSCOPY,DIAGNOSTIC,W/ LITHOTRIPSY INC. INSERTION OF INDWELLING URETERAL STENT (WRVU 8) (Left) MODIFIER HOLMIUM LASER (N/A) CYSTO, REMOVAL OF STENT, FOREIGN BODY OR CALCULUS, SIMPLE (WRVU 2.81) (Left) Anesthesia: General Findings: impacted left ureteral stone, with marked edematous mucosal changes surrounding stone. Stone fragmented and all fragments extracted. Fluoroscopically and endoscopically stone free at procedure conclusion. Stent replaced due to impacted stone Complications: none evident Intake: Intraprocedure Crystalloid Total Intake lactated ringers infusion 800.00 mL ceFAZolin (Ancef) 2 g vial attach to sodium chloride 0.9% 100 mL Mini-Bag Plus 100.00 mL Total Intake 900 mL Transfusion No data found in the last 1 encounters. Output: Estimated Blood Loss: Urine Output:: (no urine output recorded) Other Output: (no other output recorded) Drains: 6fr 26 cm Tria left ureteral stent Specimens removed during surgery: stone for analysis; urine for culture Disposition: awakened from anesthesia, extubated and taken to the recovery room in a stable condition, having suffered no apparent untoward event. Condition: doing well without problems (Please see the Surgical Encounter Summary for any Implant and Specimen details pertinent to this patient.) HPI/Surgical Indications: Paul Adames is a 72 y.o. female with history of colostomy and a left ureteral stone, presenting for planned left URS and ll. No recent changes to health status. Underwent stenting on 10/21/23. Ucx negative - Ancef Procedure Description: The patient was identified in the pre-operative holding area. Consent was verified. The correct side of the procedure was marked. The patient was taken to the operating room and placed supine on the operating table. General anesthesia was induced. The patient was then moved to the dorsal lithotomy position and prepped and draped in the usual sterile fashion. A timeout was performed involving all members of the OR team confirming the patient's identity and planned procedure. Preoperative antibiotics were administered. A 22 Fr rigid cystoscope was inserted into the bladder. 360 degree cystoscopy was done and revealednormal mucosa. The existing left ureteral stent was visualized. The stent was then grasped with a stent grasper and removed to the level of the urethral meatus. The cystoscope was removed over the stent. A guide wire was passed via the stent without difficulty, and the stent was removed. A semi-rigid ureteroscope was introduced. The distal ureter was navigated easily. Resistance was met at the mid-ureter where there was significant edema and a stone. Holmium laser was used at 6 Hz and 0.6 J for fragmentation of the stones. Large fragments were extracted using a heather basket; thesewere collected and sent to Pathology as a specimen. Smaller pieces were flushed out with irrigation.A second wire was introduced, and the semi-rigid ureteroscope was exchanged for a flexible ureteroscope. The scope was navigated to the renal pelvis. Retrograde pyelography was performed to assist in inspecting the entire pyelocaliceal system. No further stones were found. The ureteroscope was slowly removed to inspect the ureter; no further calculi were seen. Using the cystoscope, a 6 Fr x 26 cm ureteral stent was inserted over the wire. The pro ximal coil was visualized on fluoroscopy to be within the renal pelvis, and the distal coil was seen with direct visualization in the bladder. The bladder was emptied. The cystoscope was removed. The patient tolerated the procedure well and was awakened from anesthesia with no adverse events. The patient was taken to the recovery area in stable condition. Dr. Alonzo, the attending surgeon, was present for the entire procedure. Associated attestation - Inessa Alonzo Jr., MD - 11/02/2023 12:43 PM EDT Attestation: Case Date: 11/01/2023 I was present and I participated during the entire procedure. INESSA ALONZO JR, MD 11/02/2023 documented in this encounter Plan of Treatment Upcoming Encounters Date Type Department Care Team (Late st Contact Info) Description 05/15/2024 1:00 PM EDT TH Visit (TeleHealth) [place] [phone] Pasha Wood MD [facility] [place] [address] documented as of this encounter Procedures Procedure Name Priority Date/Time Associated Diagnosis Comments XR FLUORO NO RAD <1HR - OR USE Routine 11/01/2023 11:09 AM EDT KIDNEY STONE ANALYSIS Routine 11/01/2023 11:00 AM EDT URINE CULTURE Routine 11/01/2023 11:00 AM EDT Cystoscopy, Remv Calculus, Simple (33495) 11/01/2023 9:21 AM EDT stone MODIFIER HOLMIUM LASER 11/01/2023 9:21 AM EDT stone Cysto/Ureteroscopy W/Lithotripsy Inc Indwelling Stent Insertion ([id number]) 11/01/2023 9:21 AM EDT stone IMPLANTABLE DEVICES SCAN 11/01/2023 12:00 AM EDT documented in this encounter Results * US Retroperitoneal Complete (01/07/2024 1:35 PM EDT) WORKSTATION ID [id number] RAD Anatomical Region Laterality Modality Abdomen Ultrasound [...] Jessica Loya MD at 01/07/2024 2:21 PM Thank you for letting us participate in the care of this patient. If you are a health care provider and have any questions regarding this report, please contact the number above. For patients who have questions, please contact the health long term care administrator that requested your imaging first. ?Jessica Loya Sam Wildlife Forensic Geneticist Electronically Signed Final Report ?? 01/07/2024 02:27 pm Narrative 01/07/2024 2:28 PM EDT Renal ? (Signed Final 01/07/2024 02:27 pm) PATIENT INFO: ID #: ? [id number] ?: ??[birth year] (73 yrs)(F) Name: ? PAUL Dumas ROSANGELA ?Visit Date: 01/07/2024 01:05 pm PERFORMED BY: Attending: ?Shalini LU, Jessica Zamarripa Resident: ? Rocky Giang MD Performed By: ? Louise Gillespie RDMS Referred By: ?INESSA ALONZO Location: ? [place] SERVICE(S) PROVIDED: URETRO - Retroperitoneal Complete - [id number] ? [id number] INDICATIONS: Stones s/p URS, narrowed ureter, eval [...] 01/07/2024 02:27 pm) PATIENT INFO: ID #: [id number] : [birth year] (73 yrs)(F) Name: PAUL ADAMES Visit Date: 01/07/2024 01:05 pm PERFORMED BY: Attending: Jessica Loya MD Resident: Rocky Giang MD Performed By: Louise Gillespie RDMS Referred By: INESSA ALONZO JR Location: [place] SERVICE(S) PROVIDED: URETRO - Retroperitoneal Complete - [id number] INDICATIONS: Stones s/p URS, narrowed ureter, eval [...] PM Electronically signed by: Jessica Loya MD, [facility] ([phone]), at 01/07/2024 2:21 PM Thank you for letting us participate in the care of this patient. If you are a health care provider and have any questions regarding this report, please contact the number above. For patients who have questions, please contact the health long term care administrator that requested your imaging first. Jessica Loya, [facility] Wildlife Forensic Geneticist Electronically Signed Final Report 01/07/2024 02:27 pm Inessa Alonzo Jr., MD IM US GEN ORDERAB LES * XR Fluoro No Rad <1Hr - OR Use (11/01/2023 11:09 AM EDT) Narrative Dicom, Auditing User - 11/01/2023 11:10 AM EDT This exam is auto-finalizing. No interpretation was done. Inessa Alonzo Jr., MD IM FLUORO ORDERAB LES * Urine culture Cystoscopic Urine (11/01/2023 11:00 AM EDT) Urine Culture No growth (Less than 100 cfu/ml). [facility] Cystoscopic Urine 11/01/2023 11:00 AM EDT 11/01/2023 12:09 PM EDT Comment:Bladder urine for cu lture Narrative Resulting Agency Comment Spec In Lab Inessa Alonzo Jr., MD MICROBIOLOGY - GEN ERAL ORDERABLES [facility] [place] [place] [address] * Kidney Stone Analysis (11/01/2023 11:00 AM EDT) [facility] Kidney Stone Analysis (MAY) Test ? Result ?Flag ??Unit ??RefValue ------- Kidney Stone Analysis ??Source: ?Left Renal ??Stone Interpretation ? SEE COMMENTS ?40% Calcium oxalate monohydrate. 30% Calcium oxalate ?dihydrate. ??30% Calcium phosphate (apatite). ??Result Comment ? SEE COMMENTS ?For stones containing calcium oxalate, calcium phosphate, ?and/or uric acid, a 24 hr urinary supersaturation test may ?help detect underlying risk factors for this type of stone ?formation and provide guidance for a stone prevention ?strategy. ? ---ADDITIONAL INFORMATION------- ?This test was developed and its performance characteristics ?determined by [facility] in a manner consistent with CLIA ?requirements. This test has not been cleared or approved by ?the U.S. Food and Drug Administration. ?Test Performed by: ?[facility] ?[address] [place] [address] ?Electronic Assembly: Misael Marcus M.D. Ph.D.; CLIA# [id number] [facility] Calculus 11/01/2023 11:0 0 AM EDT 11/01/2023 3:11 PM EDT Narrative Resulting Agency Comment Spec In Lab Inessa Alonzo Jr., MD LAB SEND OUT ORDER SHAHID [facility] [place] [address] * SCAN DOC: IMPLANTABLE DEVICES (11/01/2023 12:00 AM EDT) Narrative 11/01/2023 12:00 AM EDT Ordered by an unspecified provider. Scanning Provider MEDIA MGR SCAN EXT O RDR/RSLT documented in this encounter Visit Diagnoses Not on filedocumented in this encounter Administered Medications Inactive Administered Medications - up to 3 most recent administrations Medication Order MAR Action Action Date Dose Rate Site acetaminophen (Tylenol) tablet 975 mg 975 mg (rounded from 1,000 mg), Oral, ONCE, 1 dose, On Margarita 11/01/23 at 0915, Maximum dose of acetaminophen is 4,000 mg from all sources in 24 hours. When ordered for pain, acetaminophen should be given even when other ordered pain medications are indicated. , Day of Surgery (Day of Procedure), Routine Given 11/01/2023 8:54 AM EDT 975 mg HYDROmorphone (Dilaudid) (0.2 mg/1 mL) injection syringe 0.2 mg 0.2 mg, Intravenous, EVERY 10 MIN PRN, Starting on Margarita 11/01/23 at 1133, Until Margarita 11/01/23 at 1258, Pain, For Mild to Moderate Pain (1-5 out of 10), Hold for respiratory rate less than 10 per minute. Maximum dose 2 mg over one hour including administrations in the OR. If multiple pain medications are ordered, start with HYDROmorphone and use fentaNYL for breakthrough pain. Notify anesthesia team if the maximum of 100 mcg of fentaNYL AND 2 mg of HYDROmorphone has been administered and patient still complains of moderate to severe pain (6-10)., PACU Recovery, Routine Given 11/01/2023 11:39 AM EDT 0.2 mg iohexoL (Omnipaque) (300 mg/mL) solution PRN, Starting on Margarita 11/01/23 at 0856, Until Margarita 11/01/23 at 1518, Intra-Operative (Intra-Procedure), Routine Given 11/01/2023 8:56 AM EDT 50 mLs 19- Surgical Site ketorolac (Toradol) (15 mg/mL) injection 15 mg 15 mg, Intravenous, ONCE PRN, Starting on Margarita 11/01/23 at 1113, Until Margarita 11/01/23 at 1258, Pain, Mild Pain (1-3), If ordered with acetaminophen, give acetaminophen first. Do not order if ibuprofen is ordered., PACU Recovery, Routine Given 11/01/2023 11:32 AM EDT 15 mg documented in this encounter Active and Recently Administered Medications Times are shown in EDT. Scheduled Medication Order 10/30/2023 10/31/2023 11/01/2023 acetaminophen (Tylenol) tablet 975 mg (COMPLETED) 975 mg (rounded from 1,000 mg), Oral, ONCE, 1 dose, On Margarita 11/01/23 at 0915, Maximum dose of acetaminophen is 4,000 mg from all sources in 24 hours. When ordered for pain, acetaminophen should be given even when other ordered pain medications are indicated. , Day of Surgery (Day of Procedure), Routine 0854 (Given - Provid er: Elina Queen RN) ceFAZolin (Ancef) 2 g vial attach to sodium chloride 0.9% 100 mL Mini-Bag Plus (COMPLETED) 2 g, Intravenous, CIGARETTE EXAMINER TO O.R., 1 dose, On Margarita 11/01/23 at 0915, Administer over 30 Minutes, Day of Surgery (Day of Procedure), Indication for (Active or Suspected): Prophylaxis 0936 (New Bag - Prov ider: Gene Brenner MD) Continuous Medication Order 10/30/2023 10/31/2023 11/01/2023 lactated ringers infusion (CANCELED) 1,000 mL, at 100 mL/hr, Intravenous, CONTINUOUS, Starting on Margarita 11/01/23 at 0915, Until Margarita 11/01/23 at 1258, Day of Surgery (Day of Procedure) 0918 (New Bag - Prov ider: Latha Valdes CRNA)0933 (Anesthesia Volume Adjustment - Provider: Latha Valdes CRNA)0945 (Anesthesia Volume Adjustment - Provider: Latha Valdes CRNA)1010 (Anesthesia Volume Adjustment - Provider: Latha Valdes CRNA)1038 (Anesthesia Volume Adjustment - Provider: Latha Valdes CRNA)1103 (New Bag - Provider: Latha Valdes CRNA) PRN Medication Order 10/30/2023 10/31/2023 11/01/2023 HYDROmorphone (Dilaudid) (0.2 mg/1 mL) injection syringe 0.2 mg (CANCELED)(Linked Group 1) 0.2 mg, Intravenous, EVERY 10 MIN PRN, Starting on Margarita 24 at 1133, Until Margarita 424 at 1258, Pain, For Mild to Moderate Pain (1-5 out of 10), Hold for respiratory rate less than 10 per minute. Maximum dose 2 mg over one hour including administrations in the OR. If multiple pain medications are ordered, start with HYDROmorphone and use fentaNYL for breakthrough pain. Notify anesthesia team if the maximum of 100 mcg of fentaNYL AND 2 mg of HYDROmorphone has been administered and patient still complains of moderate to severe pain (6-10)., PACU Recovery, Routine 1139 (Given - Provid er: Ancelmo Ray RN) iohexoL (Omnipaque) (300 mg/mL) solution (CANCELED) PRN, Starting on Margarita 11/01/23 at 0856, Until Margarita 24 at 1518, Intra-Operative (Intra-Procedure), Routine 0856 (Given - Provid er: Inessa Alonzo Jr., MD - Comment: Placed 50 ml on the sterile field. The surgeon will dilute with 0.9% Normal Saline 50:50 before use, as needed) ketorolac (Toradol) (15 mg/mL) injection 15 mg (CANCELED) 15 mg, Intravenous, ONCE PRN, Starting on Margarita 11/01/23 at 1113, Until Margarita 24 at 1258, Pain, Mild Pain (1-3), If ordered with acetaminophen, give acetaminophen first. Do not order if ibuprofen is ordered., PACU Recovery, Routine 1132 (Given - Provid er: Ancelmo Ray RN) Linked Groups Order Group 1: HYDROmorphone (Dilaudid) (0.2 mg/1 mL) injection syringe 0.2 mg (CANCELED)Jump to med 0.2 mg, Intravenous, EVERY 10 MIN PRN, Starting on Margarita 424 at 1133, Until Margarita 4/24 at 1258, Pain, For Mild to Moderate Pain (1-5 out of 10), Hold for respiratory rate less than 10 per minute. Maximum dose 2 mg over one hour including administrations in the OR. If multiple pain medications are ordered, start with HYDROmorphone and use fentaNYL for breakthrough pain. Notify anesthesia team if the maximum of 100 mcg of fentaNYL AND 2 mg of HYDROmorphone has been administered and patient still complains of moderate to severe pain (6-10)., PACU Recovery, Routine Or HYDROmorphone (Dilaudid) (0.2 mg/1 mL) injection syringe 0.4 mg (CANCELED) 0.4 mg, Intravenous, EVERY 10 MIN PRN, Starting on Margarita 424 at 1133, Until Margarita 4//24 at 1258, Pain, For Moderate to Severe Pain (6-10 out of 10), Hold for respiratory rate less than 10 per minute. Maximum dose 2 mg over one hour including administrations in the OR. If multiple pain medications are ordered, start with HYDROmorphone and use fentaNYL for breakthrough pain. Notify anesthesia team if the maximum of 100 mcg of fentaNYL AND 2 mg of HYDROmorphone has been administered and patient still complains of moderate to severe pain (6-10)., PACU Recovery, Routine documented in this encounter Care Teams Drug Safety Specialist Relationship Specialty Start Date End Date Latha Aguirre MD [address] [place] [phone] PCP - General Family Medicine 06/28/23 documented as of this encounter
--- OUTSIDE RECORDS SUMMARY | 2024-03-27 20:52 | XMS_ITS | Encounter Summary ---
[place] [address] Care Team Providers Care Truss Maker Name Role Phone Latha Aguirre MD Primary Care Provider Reason for Referral * Consultation (Urgent) - Authorized Specialty Diagnoses / Procedures Referred By Justen javier Referred To Contact Urology Diagnoses Obstruction of ureter, unspecified laterality Latha Aguirre MD [facility] [place] [address] [facility] [place] [address] Referral ID Status Reason Start Date Expiration Date Visits Requested Visits Authorized [id number] Authorized Consult, Test & Treat PCP Updated and/or Approved 08/20/2023 08/19/2024 6 6 Encounter Details Date Type Department Care Team (Late st Contact Info) Description 08/20/2023 Transcribe Orders eD Incoming Referrals [phone] Latha Aguirre MD [facility] [place], [place] [id number] Obstruction of ureter, unspecified laterality Social History Tobacco Use Types Packs/Day Years Used Date Smoking Tobacco: Never Smokeless Tobacco: Never Alcohol Use Standard Drinks/Week Comments No 0 (1 standard drink = 0.6 oz pur e alcohol) IPV Inpatient Questions Answer Date Recorded Does Anyone Try to Keep You From Having Contact with Others or Doing Things Outside Your Home? no 07/14/2023 Feels Threatened by Someone no 06/29 Feels Unsafe at Home or Work/School no 07/14/2023 Physical Signs of Abuse Present no 07/14/2023 Sex and Gender Information Value Date Recorded Sex Assigned at Not on file Gender Identity Not on file Sexual Orientation Not on file documented as of this encounter Plan of Treatment Upcoming Encounters Date Type Department Care Team (Late st Contact Info) Description 05/15/2024 1:00 PM EDT TH Visit (TeleHealth) [place] [address] Pasha Wodo MD [facility] [place] [address] Scheduled Referrals Name Type Priority Associated Diagnoses Orde r Schedule Referral to Urology Outpatient Referral Urgent Obstruction of ureter, unspecified laterality Ordered: 08/20/2023 documented as of this encounter Visit Diagnoses Diagnosis Obstruction of ureter, unspecified laterality documented in this encounter Care Teams Truss Maker Relationship Specialty Start Date End Date Latha Aguirre MD [address] [place] [phone] PCP - General Family Medicine 06/28/23 documented as of this encounter
--- OUTSIDE RECORDS SUMMARY | 2024-03-27 20:52 | XMS_ITS | Encounter Summary ---
Author Organization [facility] Address [facility] [place] [address] Care Team Providers Care Pump Runner Name Role Phone Latha Aguirre MD Primary Care Provider Reason for Referral * Consultation (Routine) - Closed Specialty Diagnoses / Procedures Referred By Contac t Referred To Contact Cardiology Diagnoses Non-ST elevation myocardial infarction (NSTEMI) Sami Ray MD [facility] [place] [address] Cardiac Rehab, [address] [place] [address] Referral ID Status Reason Start Date Expiration Date V isits Requested Visits Authorized [id number] Closed Consult, Test & Treat 08/02/2023 01/29/2024 36 36 Encounter Details Date Type Department Care Team (Late st Contact Info) Description 08/02/2023 Orders Only Cardiology at [address] [address] Sami Ray MD [facility] [place] [address] Non-ST elevation myocardial infarction (NSTEMI) Social History Tobacco Use Types Packs/Day Years Used Date Smoking Tobacco: Never Smokeless Tobacco: Never Alcohol Use Standard Drinks/Week Comments No 0 (1 standard drink = 0.6 oz pur e alcohol) [facility] Inpatient Questions Answer Date Recorded Does Anyone [...] PM EDT TH Visit (TeleHealth) [place] [address] Pasha Wood MD [facility] [place] [address] Scheduled Referrals Name Type Priority Associated Diagnoses Orde r Schedule Referral to Cardiac Rehab Outpatient Referral Routine Non-ST elevation myocardial infarction (NSTEMI) Ordered: 08/02/2023 documented as of this encounter Visit Diagnoses Diagnosis Non-ST elevation myocardial infarction (NSTEMI) Acute myocardial infarction, subendocardial infarction, episode of care unspecified documented in this encounter Care Teams Pump Runner Relationship Specialty Start Date End Date Latha Aguirre MD [address] [place] [phone] PCP - General Family Medicine 06/28/23 documented as of this encounter
--- OUTSIDE RECORDS SUMMARY | 2024-03-27 20:52 | XMS_ITS | Encounter Summary ---
Author Organization [facility] [place] [address] Care Team Providers Care Graffiti Cleaner Name Role Phone Latha Aguirre MD Primary Care Provider [phone] Reason for Visit * Auth/Cert (Routine) Specialty Diagnoses / Procedures Referred By Justen javier Referred To Contact Diagnoses Kidney stone obstructimg stone Alfredito Alonzo Jr., MD [facility] [place] [address] [facility] Referral ID Status Reason Start Date Expiration Date Visits Re quested Visits Authorized [id number] 1 1 Encounter Details Date Type Department Care Team (Late st Contact Info) Description 10/21/2023 11:40 AM EDT Anesthesia Event [place] [phone] Lionel Subramanian MD [facility] [place] [address] Holli Palacio MD [facility] [place] [address] Anesthesia Record Procedure Summary Procedure Name Responsible Anesthesiologist Anesthesia Start Time Anesthesia Stop Time CYSTO, STENT PLACEMENT (WRVU 2.82) (Left: Ureter) Lionel Subramanian MD 10/21/23 1140 10/21/23 1223 Events Date Time Event Comment 10/21/2023 1115 1140 AN Verify 1140 Start 1140 An Start Data 1146 An Induction 1148 An Intubation 1149 Anesthesia Ready 1223 Extubation/LMA Out 1223 an stop data 1223 Recovery or ICU Handoff Gia ent care was transferred to the destination unit staff after review of the patient's medical history, current anesthetic/surgical status and plan, according to the Provider Handoff Checklist. 1223 Stop Meds Name Total Propofol 170 mg Propofol INF 341.19 mg Ondansetron 4 mg ceFAZolin 2 g lactated ringers 200 mL * Agents Name O2 * Blood No blood administrations on file. Lines, Drains, and Airways Type Details Placement Removal Colostomy (had prior to admission) 3 2316 by Simona Pearce RN PIV 10/21/23; 18 gauge; median cubital vein (antecubital fossa), right; OSH; site symptomatic, catheter/device intact; 10/22/23; 0737 10/21/23 0000 by Madison Singleton RN 10/22/23 0737 by Katina Dickinson RN Supraglottic Mask Ventilation: Ea sy (1); LMA Type: iGel; LMA Size: 3; Inserted by: ana; Removal Date: 10/21/23; Removal Time: 1223 10/21/23 1148 by Ronan Gunter CRNA 10/21/23 1223 by Ronan Gunter CRNA documented in this encounter Social History Tobacco Use Types Packs/Day Years Used Date Smoking Tobacco: Never Smokeless Tobacco: Never Alcohol Use Standard Drinks/Week Comments No 0 (1 standard drink = 0.6 oz pur e alcohol) [facility] Utilities Answer Date Recorded In the past 12 months has [employer] gas, oil, or water [employer] threatened to shut off services in your [...] or Doing Things Outside Your Home? no 10/21/2023 Feels Threatened by Someone no 09/28 Feels Unsafe at Home or Work/School no 10/21/2023 Physical Signs of Abuse Present no 10/21/2023 Sex and Gender Information Value Date Recorded Sex Assigned at Not on file Gender Identity Not on file Sexual Orientation Not on file documented as of this encounter OR Notes * Anesthesia Postprocedure Evaluation - Lionel Subramanian MD - 10/21/2023 1:01 PM EDT Department of Anesthesiology Post-procedure Note Patient: Page Katz Procedure Summary Date: 10/21/23 Room / Location: [facility] OR [facility] MAIN OR Anesthesia Start: 1140 Anesthesia Stop: 1223 Procedure: CYSTO, STENT PLACEMENT (WRVU 2.82) (Left: Ureter) Diagnosis: (Stone) Surgeons: Alfredito Alonzo Jr., MD Responsible Provider: Lionel Subramanian MD Anesthesia Type: general ASA Status: 3 All Anesthesia Providers: Anesthesiologist: Lionel Subramanian MD APARTMENT COORDINATOR: Ronan Gunter CRNA Vitals Value Taken Time BP 134/65 10/21/23 1245 Temp 36.2 ??C (97.2 ??F) 10/21/23 1219 Pulse 78 10/21/23 1300 Resp 19 10/21/23 1300 SpO2 94 % 10/21/23 1300 Pain Level 0 10/21/23 1219 Vitals shown include unfiled device data. Patient Location: PACU/[facility] Level of Consciousness: Conscious but Sleepy Pain Management: Satisfactory Analgesia PONV: None Cardiovascular Status: Hemodynamically Stable Respiratory Status: Stable Respiratory Status Postoperative Fluid Status: Intravascular EUvolemia Possible Anesthetic Complications: NONE apparent at time of evaluation Final Primary Anesthesia Type: General (The anesthetic type performed was the same as planned.) Comments: * Anesthesia Preprocedure Evaluation - Lionel Subramanian MD - 10/21/2023 11:07 AM EDT Pre-Anesthesia Evaluation for: Page marcano 72 y.o. female. Procedure(s): CYSTO, STENT PLACEMENT (VU 2.82) Patient Active Problem List Diagnosis Date Noted ??? Left ureteral stone 09/26/2023 ??? Bilateral nephrolithiasis 09/26/2023 ??? NSTEMI (non-ST elevated myocardial infarction) 07/14/2023 ??? Colon cancer 06/19/2019 ??? Depression 06/19/2019 ??? Essential hypertension 06/19/2019 ??? Obesity (BMI 30-39.9) 06/19/2019 ??? Seronegative rheumatoid arthritis 06/19/2019 ??? Vitamin D deficiency 06/19/2019 ??? NAFLD (nonalcoholic fatty liver disease) 12/09/2015 ??? Endometrial cancer 05/27/2014 ??? Complex endometrial hyperplasia with atypia 04/22/2014 ??? S/P thyroidectomy 11/22/2011 ??? Thyroid cancer 11/22/2011 ??? Hypothyroidism 11/22/2011 Past Medical History: Diagnosis Date ??? Arthritis ??? Blood transfusion ??? Complex endometrial hyperplasia with atypia 04/22/2014 ??? Crohn's disease ??? Depression ??? History of colon cancer Moderately differentiated adenocarcinoma pT2 pN0 pMx ??? Hypertension well controlled on medications ??? Nephrolithiasis ??? Non-alcoholic fatty liver disease Diagnosed on liver wedge biopsy at time of open cholecystectomy in 2008 ??? Obesity BMI 43 ??? Polymyalgia rheumatica ??? Postmenopausal bleeding 02/2014 ??? Thyroid disease Papillary carcinoma s/p total thyroidectomy; Hypothyroidism Past Surgical History: Procedure Laterality Date ??? CHOLECYSTECTOMY 10/22/2008 Open cholecystectomy ??? DILATION AND CURETTAGE OF UTERUS 04/22/2014 Path showed complex endometrial hyperplasia w/ atypia ??? ILEOSTOMY OR JEJUNOSTOMY 01/04/2006 For Crohn's Disease and colon cancer ??? PRG SOMATOSENSORY TEST, ANY/ALL PER. NERVES, TRUNK OR HEAD 10/13/2011 FACIAL NERVE MONITORING, SETUP performed by RICK CARD at [facility] OR ??? PRO CYSTOURETHROSCOPY, URETER CATHETER 06/19/2013 CYSTO, RETROGRADE, URETEROPYELOGRAPHY performed by Alfredito Alonzo Jr., MD at [facility] OR ??? PRO ILEOSCOPY THRU STOMA, BIOPSY N/A 12/09/2015 ILEOSCOPY W/ BIOPSY performed by Isael Christianson MD at [facility] ENDOSCOPY ??? PRO PERCUT DILATN RENAL TRACT 06/19/2013 PERCUTANEOUS INTRO GUIDE WIRE TO ACCESS RENAL PELVIS,AND OR URETER, W\DILATION performed by Alfredito Alonzo Jr., MD at [facility] OR ? ? PRO PERQ NL/PL LITHOTRIPSY COMPLEX >2 CM ESTIMATOR AND DRAFTER LOCATIONS 06/19/2013 NEPHROLITHOTOMY, ([facility]) PERCUTANEOUS, OVER 2CM performed by Alfredito Alonzo Jr., MD at [facility] OR ??? PRO THYROIDECTOMY 10/13/2011 THYROIDECTOMY, TOTAL OR COMPLETE performed by RICK CARD at [facility] OR ??? PRO TOTAL ABDOM HYSTERECTOMY 05/26/2014 @HYSTERECTOMY, TOTAL ABD., W W/O BSO performed by Carmen Montana MD at [facility] OR ??? PROCTECTOMY 01/04/2006 For Crohn's Disease and colon cancer ??? TOTAL COLECTOMY 01/04/2006 For Crohn's Disease and colon cancer ??? TOTAL KNEE ARTHROPLASTY 2006, 2010 Bilateral knee replacements Social History Tobacco Use ??? Smoking status: Never ??? Smokeless tobacco: Never Substance Use Topics ??? Alcohol use: No Social History Substance and Sexual Activity Drug Use Yes ??? Types: Benzodiazapines Allergies Allergen Reactions ??? Atorvastatin Other reaction(s): elevated LFTs ??? Fentanyl Other reaction(s): altered mental status ??? Other [Unclassified Drug] Other (See Comments) Pain Patch(drug unknown) Fentanyl- confused hallucinations Medications: MAR and/or home medications have been reviewed. Physical Exam: Preprocedure Vitals Current as of 10/21/23 1107 BP: Pulse: Resp: SpO2: Temp: 36.3 ??C (97.3 ??F) Height: Weight: 92.1 kg (203 lb) (10/21/23) BMI: IBW: Last edited 10/21/23 0900 by AM Airway Assessment: Mallampati: II TM distance: >3 FB Neck ROM: full Cardiovascular Assessment: system normal Pulmonary Assessment: pulmonary exam normal Dental Assessment: - normal exam Misc Assessment: IV access: Peripheral line Last Filed Perioperative Cognitive Screening None Anesthesia Plan: ASA 3 general, with a(n) intravenous induction Page Katz is a 72 yo female presenting for urgent cystoscopy and stent placement for L kidneystone. PMH of endometrial cancer, NAFLD, depression, HTN, and NSTEMI (06/2023 LAD stented). S/p thyroidectomy for thyroid CA, on replacement. Crohn's disease, s/p colectomy with osteomy Obesity, Plan: GA with LMA Holli Palacio MD Informed Consent: Anesthetic plan and risks discussed with patient. Plan discussed with resident, attending and APARTMENT COORDINATOR. Anesthesia Screening documented in this encounter Plan of Treatment Upcoming Encounters Date Type Department Care Team (Late st Contact Info) Description 05/15/2024 1:00 PM EDT TH Visit (TeleHealth) [place] [address] Pasha Wood MD [facility] [place] [address] documented as of this encounter Visit Diagnoses Not on filedocumented in this encounter Administered Medications Inactive Administered Medications - up to 3 most recent administrations Medication Order MAR Action Action Date Dose Rate Site ceFAZolin (Ancef) (100 mg/mL) injection solution Intravenous, PRN, Starting on 10/21/23 at 1150, Until 10/21/23 at 1223, Anesthesia Intra-op, Routine Given 10/21/2023 11:50 AM EDT 2 g lactated ringers infusion Intravenous, CONTINUOUS PRN, Starting on 10/21/23 at 1146, Until 10/21/23 at 1223, Anesthesia Intra-op New Bag 10/21/2023 11:46 AM EDT ondansetron (pf) (Zofran) (2 mg/mL) injection Intravenous, PRN, Starting on 10/21/23 at 1212, Until 10/21/23 at 1223, Anesthesia Intra-op, Routine Given 10/21/2023 12:12 PM EDT 4 mg propofoL (Diprivan) (10 mg/mL) infusion Intravenous, CONTINUOUS PRN, Starting on 10/21/23 at 1149, Until 10/21/23 at 1223, Anesthesia Intra-op, Routine New Bag 10/21/2023 11:49 AM EDT 150 mcg/kg/min 60.21 mL/hr propofoL (Diprivan) 10 mg/mL bolus injection (Anesthesia) Intravenous, PRN, Starting on 10/21/23 at 1146, Until 10/21/23 at 1223, Anesthesia Intra-op Given 10/21/2023 11:46 AM EDT 170 mg documented in this encounter Care Teams Graffiti Cleaner Relationship Specialty Start Date End Date Latha Aguirre MD [address] [place] [address] PCP - General Family Medicine 06/28/23 documented as of this encounter
--- OUTSIDE RECORDS SUMMARY | 2024-03-27 20:52 | XMS_ITS | Encounter Summary ---
Author Organization [facility] Address [facility] [place] [address] Care Team Providers Care Gift Manager Name Role Phone Latha Aguirre MD Primary Care Provider Encounter Details Date Type Department Care Team (Latest Contact Info) Description 01/07/2024 1:00 PM EDT - 01/07/2024 11:59 PM EDT Hospital Encounter [place] [phone] Inessa Alonzo Jr., MD [facility] [place] [address] Kidney stone Discharge Disposition: Home Social History Tobacco Use Types Packs/Day Years Used Date Smoking Tobacco: Never Smokeless Tobacco: Never Alcohol Use Standard Drinks/Week Comments No 0 (1 standard drink = 0.6 oz pur e alcohol) [facility] Utilities Answer Date Recorded In the past 12 months has [employer], gas, oil, or water company threatened [...] place to sleep or slept in a residential (including now)? No 10/22/2023 DH IPV Inpatient [...] on file documented as of this encounter Medications at Time of Discharge Medication Sig Dispensed Refills Start Date End Date inhalational spacing device (Space Chamber) Spacer USE [...] by mouth daily. 2 days a week Hjtkrjgmdyovu-Cg-Biu n-Minerals (ONE-A-DAY WOMENS FORMULA) 27-0.4 mg Tab 08/19/2009 predniSONE (Deltasone) 1 mg tablet Take 2 mg by mouth daily. 10/10/2023 01/11/2024 documented as of this encounter Plan of Treatment Upcoming Encounters Date Type Department Care Team (Late st Contact Info) Description 05/15/2024 1:00 PM EDT TH Visit (TeleHealth) Rheumatology at [facility] [place] [address] Pasha Wood MD [facility] [place] [address] documented as of this encounter Procedures Procedure Name Priority Date/Time Associated Diagnosis Comments US RETROPERITONEAL COMPLETE Routine 01/07/2024 1:35 PM EDT Kidney stone documented in this encounter Results * US Retroperitoneal Complete (01/07/2024 1:35 PM EDT) WORKSTATION ID [id number] RAD Anatomical Region Laterality Modality Abdomen Ultrasound [...] who have questions, please contact the health lawn caretaker that requested your imaging first. ?Jessica Loya, E Pants Presser Automatic Electronically Signed Final Report ?? 01/07/2024 02:27 pm Narrative 01/07/2024 2:28 PM EDT Renal ? (Signed Final 01/07/2024 02:27 pm) PATIENT INFO: ID #: ? [id number] ?: ??50 (73 yrs)(F) Name: ? PAGE Dumas ROSANGELA ?Visit Date: 01/07/2024 01:05 pm PERFORMED BY: Attending: ?Shalini LU, Jessica Zamarripa Resident: ? Rocky Giang MD Performed By: ? Louise Gillespie RDMS Referred By: ?INESSA ALONZO JR Location: ? [facility] SERVICE(S) PROVIDED: URETRO - Retroperitoneal Complete - [id number] ? [id number] INDICATIONS: Stones s/p URS, narrowed ureter, eval [...] 01/07/2024 02:27 pm) PATIENT INFO: ID #: [id number] : 50 (73 yrs)(F) Name: PAGE KATZ Visit Date: 01/07/2024 01:05 pm PERFORMED BY: Attending: Jessica Loya MD Resident: Rocky Giang MD Performed By: Louise Gillespie RDMS Referred By: INESSA ALONZO JR Location: [facility] SERVICE(S) PROVIDED: URETRO - Retroperitoneal Complete - [id number] INDICATIONS: Stones s/p URS, narrowed ureter, eval [...] PM Electronically signed by: Jessica Loya MD, [facility] ([phone]), at 01/07/2024 2:21 PM Thank you for letting us participate in the care of this patient. If you are a health care provider and have any questions regarding this report, please contact the number above. For patients who have questions, please contact the health lawn caretaker that requested your imaging first. Jessica Loya, [facility] Pants Presser Automatic Electronically Signed Final Report 01/07/2024 02:27 pm Inessa Alonzo Jr., MD [facility] GEN ORDERAB LES documented in this encounter Visit Diagnoses Diagnosis Kidney stone Calculus of kidney documented in this encounter Care Teams Gift Manager Relationship Specialty Start Date End Date Latha Aguirre MD [address] [place] [id number] PCP - General Family Medicine 06/28/23 documented as of this encounter
--- OUTSIDE RECORDS SUMMARY | 2024-03-27 20:52 | XMS_ITS | Encounter Summary ---
Author Organization Formerly [facility] Address [facility] [place] [address] Care Team Providers Care Pulmonary Care Nurse Name Role Phone Latha Aguirre MD Primary Care Provider Encounter Details Date Type Department Care Team (Latest Contact Info) Description 11/01/2023 8:13 AM EDT - 11/01/2023 1:18 PM EDT Hospital En[place] [phone] Inessa Alonzo Jr., MD [facility] [place] [address] [place] [address] Kidney stone Discharge Disposition: Home Social History Tobacco Use Types Packs/Day Years Used Date Smoking Tobacco: Never Smokeless Tobacco: Never Alcohol Use Standard Drinks/Week Comments No 0 (1 standard drink = 0.6 oz pur e alcohol) [facility] Utilities Answer Date Recorded In the past 12 months has fake company 2.0 electric, gas, oil, or water company threatened [...] place to sleep or slept in a [place] health care facility (including now)? No 10/22/2023 DH IPV Inpatient [...] 11:00 AM Pasha Wood MD Rheumatology at [facility] Arrive at: Racking Technician Area [phone] You will return for stent removal in [...] by mouth daily. 2 days a week Mahckqldserqh-Fx-Scb n-Minerals (ONE-A-DAY WOMENS FORMULA) 27-0.4 mg Tab [...] MONITORING, SETUP performed by RICK CARD at [facility] MAIN OR PRO CYSTOSCOPY, INSERT URETERAL STENT Left 10/21/2023 CYSTO, STENT PLACEMENT (WRVU 2.82) performed by Inessa Alonzo Jr., MD at [facility] MAIN OR PRO CYSTOURETHROSCOPY, URETER CATHETER 06/19/2013 CYSTO, RETROGRADE, URETEROPYELOGRAPHY performed by Inessa Alonzo Jr., MD at [facility] MAIN OR PRO ILEOSCOPY THRU STOMA, BIOPSY N/A 12/09/2015 ILEOSCOPY W/ BIOPSY performed by Isael Christianson MD at [facility] ENDOSCOPY PRO PERCUT DILATN RENAL TRACT 06/19/2013 PERCUTANEOUS INTRO GUIDE WIRE TO ACCESS RENAL PELVIS,AND OR URETER, W\DILATION performed by Inessa Alonzo Jr., MD at [facility] MAIN OR PRO PERQ NL/PL LITHOTRIPSY COMPLEX >2 CM DATA LIBRARIAN LOCATIONS 06/19/2013 NEPHROLITHOTOMY, (PCNL) PERCUTANEOUS, OVER 2CM performed by Inessa Alonzo Jr., MD at [facility] MAIN OR PRO THYROIDECTOMY 10/13/2011 THYROIDECTOMY, TOTAL OR COMPLETE performed by RICK CARD at [facility] MAIN OR PRO TOTAL ABDOM HYSTERECTOMY 05/26/2014 @HYSTERECTOMY, TOTAL ABD., W W/O BSO performed by Carmen Montana MD at [facility] MAIN OR PROCTECTOMY 01/04/2006 For Crohn's Disease [...] by mouth daily. 2 days a week Vpdkhfllvmeyj-Ug-Lnsl-Minerals (ONE-A-DAY WOMENS FORMULA) 27-0.4 mg Tab nitroGLYcerin [...] Operative Note Patient Name: Paul Adames : [id number] MR#: [id number] Case Date: 11/01/2023 Surgeon: Surgeon(s) and Role: [...] Jackson MD - 11/01/2023 9:48 AM EDT [facility] Operative Note Patient Name: Paul Adames : [id number] MR#: [id number] Case Date: 11/01/2023 Surgeon: Surgeon(s) and Role: [...] stones. Large fragments were extracted using a Songfor basket; thesewere collected and sent to Pathology [...] EDT TH Visit (TeleHealth) [place] [address] Pasha Wood MD [facility] [place] [address] documented as of this encounter Procedures Procedure Name Priority Date/Time Associated Diagnosis Comments XR FLUORO NO RAD <1HR - OR USE Routine 11/01/2023 11:09 AM EDT KIDNEY STONE ANALYSIS Routine 11/01/2023 11:00 AM EDT URINE CULTURE Routine 11/01/2023 11:00 AM EDT Cystoscopy, Remv Calculus, Simple ([id number]) 11/01/2023 9:21 AM EDT stone MODIFIER HOLMIUM LASER 11/01/2023 9:21 AM EDT stone Cysto/Ureteroscopy W/Lithotripsy Inc Indwelling Stent Insertion ([id number]) 11/01/2023 9:21 AM EDT stone IMPLANTABLE DEVICES SCAN 11/01/2023 12:00 AM EDT documented in this encounter Results * US Retroperitoneal Complete (01/07/2024 1:35 PM EDT) [employer] Signature WORKSTATION ID [id number] RAD Anatomical Region Laterality Modality Abdomen Ultrasound [...] PM Electronically signed by: Jessica Loya MD, [facility] ([phone]), at 01/07/2024 2:21 PM Thank you for letting us participate in the care of this patient. If you are a health care provider and have any questions regarding this report, please contact the number above. For patients who have questions, please contact the health director long term care that requested your imaging first. ?Jessica Loya E Clerk Funeral Detail Electronically Signed Final Report ?? 01/07/2024 02:27 pm Narrative 01/07/2024 2:28 PM EDT Renal ? (Signed Final 01/07/2024 02:27 pm) PATIENT INFO: ID #: ? [id number] ?: ??50 (73 yrs)(F) Name: ? PAUL ADAMES ?Visit Date: 01/07/2024 01:05 pm PERFORMED BY: Attending: ?Shalini LU, Jessica Zamarripa Resident: ? Rocky Giang MD Performed By: ? Louise Gillespie RDMS Referred By: ?INESSA ALONZO JR Location: ? [place] SERVICE(S) PROVIDED: URETRO - Retroperitoneal Complete - [id number] ? [id number] INDICATIONS: Stones s/p URS, narrowed ureter, eval [...] 01/07/2024 02:27 pm) PATIENT INFO: ID #: [id number] : 50 (73 yrs)(F) Name: PAUL ADAMES Visit Date: 01/07/2024 01:05 pm PERFORMED BY: Attending: Jessica Lyoa MD Resident: Rocky Giang MD Performed By: Louise Gillespie RDMS Referred By: INESSA ALONZO JR Location: [place] SERVICE(S) PROVIDED: URETRO - Retroperitoneal Complete - [id number] INDICATIONS: Stones s/p URS, narrowed ureter, eval [...] PM Electronically signed by: Jessica Loya MD, [facility] ([phone]), at 01/07/2024 2:21 PM Thank you for letting us participate in the care of this patient. If you are a health care provider and have any questions regarding this report, please contact the number above. For patients who have questions, please contact the health director long term care that requested your imaging first. Jessica Loya, [facility] Clerk Funeral Detail Electronically Signed Final Report 01/07/2024 02:27 pm Inessa lAonzo Jr., MD IMG US GEN ORDERAB LES * XR Fluoro No Rad <1Hr - OR Use (11/01/2023 11:09 AM EDT) Narrative Dicom, Auditing User - 11/01/2023 11:10 AM EDT This exam is auto-finalizing. No interpretation was done. Inessa Alonzo Jr., MD IM FLUORO ORDERAB LES * Urine culture Cystoscopic Urine (11/01/2023 11:00 AM EDT) Urine Culture No growth (Less than 100 cfu/ml). [facility] Cystoscopic Urine 11/01/2023 11:00 AM EDT 11/01/2023 12:09 PM EDT Comment:Bladder urine for cu lture Narrative Resulting Agency Comment Spec In Lab Inessa Alonzo Jr., MD MICROBIOLOGY - GEN ERAL ORDERABLES [facility] [place] [address] * Kidney Stone Analysis (11/01/2023 11:00 AM EDT) Kidney Stone Analysis (MAY) Test ? Result [...] developed and its performance characteristics ?determined by [facility] in a manner consistent with CLIA ?requirements. This test has not been cleared or approved by ?the U.S. Food and Drug Administration. ?Test Performed by: ?[facility] ?[address] [place] [address] ?Casket Assembler Metal: Misael Marcus M.D. Ph.D.; CLIA# [id number] [facility] Calculus 11/01/2023 11:0 0 AM EDT 11/01/2023 3:11 PM EDT Narrative Resulting Agency Comment Spec In Lab Inessa Alonzo Jr., MD LAB SEND OUT ORDER SHAHID [facility] [place] [address] * SCAN DOC: IMPLANTABLE DEVICES (11/01/2023 12:00 AM EDT) Narrative 11/01/2023 12:00 AM EDT Ordered by an unspecified provider. Scanning Provider MEDIA MGR SCAN EXT O RDR/RSLT documented in this encounter Visit Diagnoses Diagnosis Kidney stone Calculus of kidney Kidney stone Calculus of kidney documented in [...] Given 11/01/2023 11:39 AM EDT 0.2 mg ketorolac (Toradol) (15 mg/mL) injection 15 mg [...] mL Mini-Bag Plus (COMPLETED) 2 g, Intravenous, PRINTER SLOTTER FEEDER TO O.R., 1 dose, On Margarita 11/01/23 [...] mg/mL) solution (CANCELED) PRN, Starting on Margarita 24 at 0856, Until Margarita 24 at 1518, Intra-Operative (Intra-Procedure), Routine 0856 (Given - Provid er: Inessa Alonzo Jr., MD - Comment: Placed 50 ml on the sterile field. The surgeon will dilute with 0.9% Normal Saline 50:50 before use, as needed) ketorolac (Toradol) (15 mg/mL) injection 15 mg (CANCELED) 15 mg, Intravenous, ONCE PRN, Starting on Margarita 24 at 1113, Until Margarita 24 at 1258, Pain, Mild Pain (1-3), If ordered with acetaminophen, give acetaminophen first. Do not order if ibuprofen is ordered., PACU Recovery, Routine 1132 (Given - Provid er: Ancelmo Ray RN) Linked Groups Order Group 1: HYDROmorphone (Dilaudid) (0.2 mg/1 mL) injection syringe 0.2 mg (CANCELED)Jump to med 0.2 mg, Intravenous, EVERY 10 MIN PRN, Starting on Margarita 4/24 at 1133, Until Margarita 4//24 at 1258, Pain, For Mild to Moderate [...] Routine documented in this encounter Care Teams Pulmonary Care Nurse Relationship Specialty Start Date End Date Latha Aguirre MD [address] [place] [id number] PCP - General Family Medicine 06/28/23 documented as of this encounter
--- OUTSIDE RECORDS SUMMARY | 2024-03-27 20:52 | XMS_ITS | Encounter Summary ---
Author Organization [facility] [place] [address] Care Team Providers Care Gyro Compass Tester Name Role Phone Latha Aguirre MD Primary Care Provider [phone] Encounter Details Date Type Department Care Team (Latest Contact Info) Description 09/26/2023 Travel Social History Tobacco Use Types Packs/Day [...] PM EDT TH Visit (TeleHealth) [place] [address] Pasha Wood MD [facility] [place] [place] [address] documented as of this encounter Visit Diagnoses Not on filedocumented in this encounter Care Teams Gyro Compass Tester Relationship Specialty Start Date End Date Latha Aguirre MD [address] [address] PCP - General Family Medicine 06/28/23 documented as of this encounter
--- OUTSIDE RECORDS SUMMARY | 2024-03-27 20:52 | XMS_ITS | Encounter Summary ---
Author Organization [facility] [place] [address] Care Team Providers Care Test Designer Name Role Phone Latha Aguirre MD Primary Care Provider Encounter Details Date Type Department Care Team (Late st Contact Info) Description 11/01/2023 9:18 AM EDT Anesthesia Event [place] [address] Gene Brenner MD Schriewer, Deborah M, [facility] [place] [address] Anesthesia Record Procedure Summary Procedure Name Responsible Anesthesiologist Anesthesia Start Time Anesthesia Stop Time CYSTOURETEROSCOPY,ANATOLIY GNOSTIC,W/ LITHOTRIPSY INC. INSERTION OF INDWELLING URETERAL STENT (WRVU 8) (Left: Ureter) Gene Brenner MD 11/01/23 0918 11/01/23 1115 Events Date Time Event Comment 11/01/2023 0902 0918 AN Verify 0918 Start 0923 An Start Data 0929 An Induction 0932 An Intubation 0932 Anesthesia Ready 0949 Procedure Start 1105 Extubation/LMA Out 1109 an stop data 1115 Recovery or ICU Handoff Gia ent care was transferred to the destination unit staff after review of the patient's medical history, current anesthetic/surgical status and plan, according to the Provider Handoff Checklist. HOB elev 30 degrees; oral aw d/c; spon resp ez; drowsy; VSS 1115 Stop Meds Name Total IV Lidocaine 50 mg Propofol 400 mg ePHEDrine 70 mg Ondansetron 4 mg Dexamethasone 4 mg dexmedeTOMIDine 28 mcg PHENYLephrine INF 3,310 mcg ceFAZolin (Ancef) 2 g vial a ttach to sodium chloride 0.9% 100 mL Mini-Bag Plus 2 g propofol INF 442.86 mg lactated ringers infusion 1,000 mL * Agents Name O2 Air N2O Sevoflurane (et) * Blood No blood administrations on file. Lines, Drains, and Airways Type Details Placement Removal Colostomy (had prior to admission) 3 2316 by Simona Pearce RN Incision 11/01/23; 0949; uret hral meatus; Cystoscope 11/01/23 0949 by Joe Gibbs RN PIV 11/01/23; 0915; ugzk-jqb-czcpgg catheter system; 22 gauge; metacarpal vein (top of hand), right; Anatomical Landmarks; US Not Used; JOSEPH Dover; tolerated well, appears comfortable, distraction; 11/01/23; 1257 11/01/23 0915 by Elina Queen RN 11/01/23 1257 by Ancelmo Ray RN Supraglottic Mask Ventilation: Prashanth najera (1); LMA Type: Unique; LMA Size: 4; Inserted by: ashlie; Removal Date: 11/01/23; Removal Time: 1105 11/01/23 0933 by Latha Valdes CRNA 11/01/23 1105 by Latha Valdes CRNA documented in this encounter Social History Tobacco Use Types Packs/Day Years Used Date Smoking Tobacco: Never Smokeless Tobacco: Never Alcohol Use Standard Drinks/Week Comments No 0 (1 standard drink = 0.6 oz pur e alcohol) [facility] Utilities Answer Date Recorded In the past 12 months has e [employer], gas, oil, or water the grafter threatened to shut off services in your [...] place to sleep or slept in a prison (including now)? No 10/22/2023 DH IPV Inpatient [...] OR Notes * Anesthesia Postprocedure Evaluation - Gene Brenner MD - 11/01/2023 1:28 PM EDT Department of Anesthesiology Post-procedure Note Patient: Page Katz Procedure Summary Date: 11/01/23 Room / Location: [facility] OR [address] [place] [address] MAIN OR Anesthesia Start: 917 Anesthesia Stop: 1114 Procedures: CYSTOURETEROSCOPY,DIAGNOSTIC,W/ LITHOTRIPSY INC. INSERTION OF INDWELLING URETERAL STENT (WRVU 8) (Left: Ureter) MODIFIER HOLMIUM LASER CYSTO, REMOVAL OF STENT, FOREIGN BODY OR CALCULUS, SIMPLE (WRVU 2.81) (Left: Ureter) Diagnosis: (stone) Surgeons: Alfredito Alonzo Jr., MD Responsible Provider: Gene Brenner MD Anesthesia Type: general ASA Status: 3 All Anesthesia Providers: Anesthesiologist: Gene Brenner MD COMMERCIAL GREEN BUILDING ARCHITECT: Latha Valdes CRNA Vitals Value Taken Time BP 137/62 11/01/23 1245 Temp 37.2 ??C (99 ??F) 11/01/23 1245 Pulse 73 11/01/23 1230 Resp 16 11/01/23 1230 SpO2 96 % 11/01/23 1245 Pain Level 3 11/01/23 1245 Vitals shown include unfiled device data. Patient Location: PACU/[facility] Level of Consciousness: Awake and Alert Pain Management: Satisfactory Analgesia PONV: None Cardiovascular Status: At Baseline Respiratory Status: At Baseline Postoperative Fluid Status: Intravascular EUvolemia Possible Anesthetic Complications: NONE apparent at time of evaluation Final Primary Anesthesia Type: General (The anesthetic type performed was the same as planned.) Comments: * Anesthesia Preprocedure Evaluation - Gene Brenner MD - 11/01/2023 9:00 AM EDT Pre-Anesthesia Evaluation for: Page Katz a 72 y.o. female. Procedure(s): CYSTOURETEROSCOPY,DIAGNOSTIC,W/ LITHOTRIPSY INC. INSERTION OF INDWELLING URETERAL STENT (WRVU 8) MODIFIER HOLMIUM LASER Patient Active Problem List Diagnosis Date Noted ??? Kidney stone 10/21/2023 ??? Left ureteral stone 09/26/2023 ??? Bilateral [...] MONITORING, SETUP performed by RICK CARD at [facility] OR ??? PRO CYSTOSCOPY, INSERT URETERAL STENT Left 10/21/2023 CYSTO, STENT PLACEMENT (WRVU 2.82) performed by Alfredito Alonzo Jr., MD at [facility] OR ??? PRO CYSTOURETHROSCOPY, URETER CATHETER 06/19/2013 CYSTO, RETROGRADE, URETEROPYELOGRAPHY performed by Alfredito Alonzo Jr., MD at [facility] OR ??? PRO ILEOSCOPY THRU STOMA, BIOPSY N/A 12/09/2015 ILEOSCOPY W/ BIOPSY performed by Isael Christianson MD at [facility] ENDOSCOPY ??? PRO PERCUT DILATN RENAL TRACT 06/19/2013 PERCUTANEOUS INTRO GUIDE WIRE TO ACCESS RENAL PELVIS,AND OR URETER, W\DILATION performed by Alfredito Alonzo Jr., MD at [facility] OR ? ? PRO PERQ NL/PL LITHOTRIPSY COMPLEX >2 CM HEALTH CARE LIAISON LOCATIONS 06/19/2013 NEPHROLITHOTOMY, (PCNL) PERCUTANEOUS, OVER 2CM performed by Alfredito Alonzo Jr., MD at [facility] OR ??? PRO THYROIDECTOMY 10/13/2011 THYROIDECTOMY, TOTAL OR COMPLETE performed by RICK CARD at [facility] MAIN OR ??? PRO TOTAL ABDOM HYSTERECTOMY 05/26/2014 @HYSTERECTOMY, TOTAL ABD., W W/O BSO performed by Carmen Montana MD at [facility] MAIN OR ??? PROCTECTOMY 01/04/2006 For Crohn's Disease [...] Physical Exam: Preprocedure Vitals Current as of 11/01/23 0900 BP: 149/70 Pulse: 83 Resp: 18 SpO2: 97 Temp: 37.4 ??C (99.3 ??F) Height: 157.5 cm (5' 2) (11/01/23) Weight: 92.5 kg (204 lb) (11/01/23) BMI: 37.31 IBW: 50.1 kg (110 lb 7.8 oz) Last edited 11/01/23 0843 by AD Airway Assessment: Mallampati: III TM distance: >3 FB Neck ROM: full Cardiovascular Assessment: Rhythm: regular Rate: normal system normal Pulmonary Assessment: breath sounds clear to auscultation pulmonary exam normal Dental Assessment: Misc Assessment: IV access: Peripheral line Last Filed Perioperative Cognitive Screening Value Time User 4AT TOTAL Score: 0 10/22/2023 8:10 AM Katina Dickinson RN Anesthesia Plan: ASA 3 general, with a(n) intravenous induction 72 yo female with history of nephrolithiasis here for cysto, ureteroscopy, and lithotripsy. Historyof PMR, hypothyroidismcolon CA, htn, and NSTEMI in Jul 21 with stenting. Continued on anticoagulantmedications through surgery. GA w/ LMA vs ETT Region - Other Informed Consent: Anesthetic plan and risks discussed with patient. Anesthesia Screening documented in this encounter Plan of Treatment Upcoming Encounters Date Type Department Care Team (Late st Contact Info) Description 05/15/2024 1:00 PM EDT TH Visit (TeleHealth) [facility] [place] [address] [facility] [place] [address] documented as of this encounter Visit Diagnoses Not on filedocumented in this encounter Administered Medications Inactive Administered Medications - up to 3 most recent administrations Medication Order MAR Action Action Date Dose Rate Site ceFAZolin (Ancef) 2 g vial attach to sodium chloride 0.9% 100 mL Mini-Bag Plus 2 g, Intravenous, DIRECTOR OF STUDENT FINANCIAL SERVICES TO O.R., 1 dose, On Margarita 11/01/23 at 0915, Administer over 30 Minutes, Day of Surgery (Day of Procedure), Indication for (Active or Suspected): Prophylaxis New Bag 11/01/2023 9:36 AM EDT 2 g dexAMETHasone (Decadron) injection Intravenous, PRN, Starting on Margarita 11/01/23 at 0945, Until Margarita 11/01/23 at 1109, Anesthesia Intra-op, Routine Given 11/01/2023 9:45 AM EDT 4 mg dexmedeTOMIDine (Precedex) (4 mcg/mL) bolus injection (Anesthsia) Intravenous, PRN, Starting on Margarita 11/01/23 at 0923, Until Margarita 11/01/23 at 1109, Anesthesia Intra-op, Routine Given 11/01/2023 9:29 AM EDT 8 mcg Given 11/01/2023 9:26 AM EDT 8 mcg Given 11/01/2023 9:23 AM EDT 12 mcg ePHEDrine sulfate (5 mg/mL) multi-dose injection Intravenous, PRN, Starting on Margarita 11/01/23 at 0934, Until Margarita 11/01/23 at 1109, Anesthesia Intra-op, Routine Given 11/01/2023 10:38 AM EDT 10 mg Given 11/01/2023 10:33 AM EDT 10 mg Given 11/01/2023 10:06 AM EDT 10 mg lactated ringers infusion 1,000 mL, at 100 mL/hr, Intravenous, CONTINUOUS, Starting on Margarita 11/01/23 at 0915, Until Margarita 11/01/23 at 1258, Day of Surgery (Day of Procedure) New Bag 11/01/2023 11:03 AM EDT New Bag 11/01/2023 9:18 AM EDT lidocaine (pf) (Xylocaine) (20 mg/mL) 2% injection syringe Intravenous, PRN, Starting on Margarita 11/01/23 at 0929, Until Margarita 11/01/23 at 1109, Anesthesia Intra-op, Routine Given 11/01/2023 9:29 AM EDT 50 mg ondansetron (pf) (Zofran) (2 mg/mL) injection Intravenous, PRN, Starting on Margarita 11/01/23 at 0945, Until Margarita 11/01/23 at 1109, Anesthesia Intra-op, Routine Given 11/01/2023 9:45 AM EDT 4 mg PHENYLephrine (Yoni-Synephrine) (80 mcg/mL) in sodium chloride 0.9% 250 mL infusion Intravenous, CONTINUOUS PRN, Starting on Margarita 11/01/23 at 0928, Until Margarita 11/01/23 at 1109, Anesthesia Intra-op, Routine Restarted 11/01/2023 10:30 AM EDT 50 mcg/min 37.5 mL/hr Rate/Dose Change 11/01/2023 10:17 AM EDT 20 mcg/min 15 mL/ hr Rate/Dose Change 11/01/2023 10:13 AM EDT 50 mcg/min 37.5 m L/hr propofoL (Diprivan) (10 mg/mL) infusion Intravenous, CONTINUOUS PRN, Starting on Margarita 11/01/23 at 0928, Until Margarita 11/01/23 at 1109, Anesthesia Intra-op, Routine Rate/Dose Change 11/01/2023 10:30 AM EDT 50 mcg/kg/min 20.13 mL/hr Rate/Dose Change 11/01/2023 10:16 AM EDT 100 mcg/kg/min 40 .26 mL/hr Rate/Dose Change 11/01/2023 10:13 AM EDT 50 mcg/kg/min 20. 13 mL/hr propofoL (Diprivan) 10 mg/mL bolus injection (Anesthesia) Intravenous, PRN, Starting on Margarita 11/01/23 at 0929, Until Margarita 11/01/23 at 1109, Anesthesia Intra-op Given 11/01/2023 10:57 AM EDT 50 mg Given 11/01/2023 10:53 AM EDT 50 mg Given 11/01/2023 10:16 AM EDT 50 mg documented in this encounter Care Teams Test Designer Relationship Specialty Start Date End Date Latha Aguirre MD [address] [place] [address] PCP - General Family Medicine 06/28/23 documented as of this encounter
--- OUTSIDE RECORDS SUMMARY | 2024-03-27 20:52 | XMS_ITS | Encounter Summary ---
Author Organization [facility] [place] [address] Care Team Providers Care Seismograph Operator Helper Name Role Phone Latha Aguirre MD Primary Care Provider Encounter Details Date Type Department Care Team (Latest Contact Info) Description 10/15/2023 Travel Social History Tobacco Use Types Packs/Day [...] PM EDT TH Visit (TeleHealth) [place] [address] Pasha Wood MD [facility] [place] [address] documented as of this encounter Visit Diagnoses Not on filedocumented in this encounter Care Teams Seismograph Operator Helper Relationship Specialty Start Date End Date Latha Aguirre MD [address] [place] [address] PCP - General Family Medicine 06/28/23 documented as of this encounter
--- OUTSIDE RECORDS SUMMARY | 2024-03-27 20:52 | XMS_ITS | Encounter Summary ---
[place] [address] Care Team Providers Care Cash Management Clerk Name Role Phone Latha Aguirre MD Primary Care Provider Reason for Referral * Diagnostic Test (Routine) - Closed Specialty Diagnoses / Procedures Referred By Justen javier Referred To Contact Radiology Diagnoses Left ureteral stone Procedures CT Abdomen & Pelvis wo Contrast Shakira Gaines APRN [facility] [place] [address] [facility] [place] [address] Referral ID Status Reason Start Date Expiration Date V isits Requested Visits Authorized [id number] Closed Specialty Service Requested 09/26/2023 03/26/2025 1 1 Reason for Visit * Consultation (Urgent) - Authorized Specialty Diagnoses / Procedures Referred By Justen javier Referred To Contact Urology Diagnoses Obstruction of ureter, unspecified laterality Latha Aguirre MD [address] [place] [id number] [facility] [place] [address] Referral ID Status Reason Start Date Expiration Date Visits Requested Visits Authorized [id number] Authorized Consult, Test & Treat PCP Updated and/or Approved 08/20/2023 08/19/2024 6 6 Encounter Details Date Type Department Care Team (Latest Contact Info) Description 09/26/2023 1:40 PM EST [place] [address] Shakira Gaines APRN [facility] [place] [address] Left ureteral stone; Bilateral nephrolithiasis Social History Tobacco Use Types Packs/Day Years Used Date Smoking Tobacco: Never Smokeless Tobacco: Never Alcohol Use Standard Drinks/Week Comments No 0 (1 standard drink = 0.6 oz pur e alcohol) [facility]LY [facility], [facility] Inpatient Questions Answer Date Recorded Does Anyone [...] Sign Reading Time Taken Comments Blood Pressure 148/73 09/26/2023 1:37 PM EST Pulse 82 09/26/2023 1:37 PM EST Temperature - - Respiratory Rate 16 09/26/2023 1:37 PM EST Oxygen Saturation 99% 09/26/2023 1:37 PM EST Inhaled Oxygen Concentration - - Weight 92.1 kg (203 lb) 09/26/2023 1:37 PM EST Height 158.8 cm (5' 2.5) 09/26/2023 1:37 PM EST Body Mass Index 36.54 09/26/2023 1:37 PM EST documented in this encounter Patient Instructions * Patient Instructions* Shakira Gaines APRN - 09/26/2023 1:40 PM EST Tips when Passing a Stone Be sure to strain urine and drink lots of fluids!!! To help with pain, alternate acetaminophen (Tylenol) 1,00mg (2-500mg tablets) every 8 hours AND ibuprofen/advil 600mg (3-200mg tablets) every 8 hours. Always take ibuprofen with food. Try utilizing heat/ice as appropriate for pain relief as well. If you develop increasing and uncontrolled pain, nausea, vomiting, fever, or chills, you need to return urgently and a stent or nephrostomy may be required. If you pass the stone, to keep it for analysis and will return in 1 month with a renal U/S to assess for residual hydronephrosis. Recommendations for Kidney Stone Prevention In general... Increase your fluid intake to maintain at least 2 - 2.5 liters of urine output each day. Consuming beverages high in citrate such as lemonade or orange juice can be helpful! Low sodium diet (<2300mg/day). This works by decreasing urinary calcium and increases urinary citrate to prevent stone formation. A High-fiber diet has been shown to reduce stone risk, by increasing intake of fruits and vegetables. Weight loss in overweight/obese patients can reduce stone formation as obessity increase the risk of stone formation. These recommendations may change based on your individual stone composition, which we can get once a stone is sent for analysis. The best way to know where your risk lies in increasing your stone burden is with a 24 hour urine analysis. documented in this encounter Progress Notes * Shakira Gaines APRN - 09/26/2023 1:40 PM EST Images from the original note were not included. [facility] SECTION OF UROLOGY NEW PATIENT VISIT History of Present Illness Page Katz is a 72 y.o. year old female being seen at the request of Latha Aguirre for 8mm left ureteral stone. She was seen for on 08/17/22 with flank pain in which she saw PCP who ordered CT at [facility], given history of LAD stent placed in 06/2023 referred to [facility] for surgical intervention. She states she began having symptoms ~ 4 weeks ago with LLQ pain which she initially felt was r/t bowel obstructing but imaging showed large stone. She has had kidney stone in the past with Dr. Alonzo s/p left PCNL in 05/2013 for >2cm stone. She states she is generally without symptoms at this time. Has occasional left side pain, seen to be related to certain exercises, but not long lasting. During episodes rated 8-10/10 but day to day has been 0/10 and goes several days without discomfort. She has been hydrating well, not straining. With acute pain has had some nausea. No urinary urgency, frequency, gross hematuria, or dysuria. No fevers or chills, flank pain. Avg. Daily Fluid Intake: !2-3 bottles water, 1 bottle iced tea, 1 diet pepsi. Dietary Factors: No added salt or regular frozen/processed meals. Patient Active Problem List Diagnosis Code S/P thyroidectomy E89.0 Thyroid cancer C73 Hypothyroidism E03.9 Complex endometrial hyperplasia with atypia N85.02 Endometrial cancer C54.1 NAFLD (nonalcoholic fatty liver disease) K76.0 Colon cancer C18.9 Depression F32.A Essential hypertension I10 Obesity (BMI 30-39.9) E66.9 Seronegative rheumatoid arthritis M06.00 Vitamin D deficiency E55.9 NSTEMI (non-ST elevated myocardial infarction) I21.4 Past Surgical History: Procedure Laterality Date CHOLECYSTECTOMY 10/22/2008 Open cholecystectomy DILATION AND CURETTAGE OF UTERUS 04/22/2014 Path showed complex endometrial hyperplasia w/ atypia ILEOSTOMY OR JEJUNOSTOMY 01/04/2006 For Crohn's Disease and colon cancer PRG SOMATOSENSORY TEST, ANY/ALL PER. NERVES, TRUNK OR HEAD 10/13/2011 FACIAL NERVE MONITORING, SETUP performed by RICK CARD at [facility] MAIN OR PRO CYSTOURETHROSCOPY, URETER CATHETER 06/19/2013 CYSTO, RETROGRADE, URETEROPYELOGRAPHY performed by Alfredito Alonzo Jr., MD at [facility] MAIN OR PRO ILEOSCOPY THRU STOMA, BIOPSY N/A 12/09/2015 ILEOSCOPY W/ BIOPSY performed by Isael Christianson MD at [facility] ENDOSCOPY PRO PERCUT DILATN RENAL TRACT 06/19/2013 PERCUTANEOUS INTRO GUIDE WIRE TO ACCESS RENAL PELVIS,AND OR URETER, W\DILATION performed by Alfredito Alonzo Jr., MD at [facility] MAIN OR PRO PERQ NL/PL LITHOTRIPSY COMPLEX >2 CM SAUSAGE CANNER LOCATIONS 06/19/2013 NEPHROLITHOTOMY, (PCNL) PERCUTANEOUS, OVER 2CM performed by Alfredito Alonzo Jr., MD at [facility] MAIN OR PRO THYROIDECTOMY 10/13/2011 THYROIDECTOMY, TOTAL OR COMPLETE performed by RICK CARD at [facility] MAIN OR PRO TOTAL ABDOM HYSTERECTOMY 05/26/2014 @HYSTERECTOMY, TOTAL ABD., W W/O BSO performed by Carmen Montana MD at [facility] MAIN OR PROCTECTOMY 01/04/2006 For Crohn's Disease and colon cancer TOTAL COLECTOMY 01/04/2006 For Crohn's Disease and colon cancer TOTAL KNEE ARTHROPLASTY 2006, 2010 Bilateral knee replacements Current Outpatient Medications Medication Instructions ALPRAZolam (XANAX) 0.25 mg, Oral, NIGHTLY PRN amLODIPine (NORVASC) 5 mg, Oral, 2 TIMES DAILY aspirin 81 mg, Oral, DAILY clopidogreL (PLAVIX) 75 mg, Oral, DAILY DULoxetine DR (Cymbalta) [address] capsule 1 capsule, Oral, DAILY AT NOON Humira(CF) Pen 40 mg, Subcutaneous, EVERY 14 DAYS hydroCHLOROthiazide (HYDRODIURIL) 25 mg, Oral, DAILY levothyroxine (SYNTHROID) 125 mcg losartan (COZAAR) 100 mg, Oral, DAILY metoprolol succinate XL (TOPROL-XL) 25 mg, Oral, DAILY metroNIDAZOLE (METROCREAM) 0.75 % Cream Topical (Top), PRN Njqtezgmvrast-Kd-Zkuo-Minerals (ONE-A-DAY WOMENS FORMULA) 27-0.4 mg Tab nitroGLYcerin (NITROSTAT) 0.4 mg, Sublingual, EVERY 5 MIN PRN omeprazole (PRILOSEC) 40 mg, Oral, DAILY potassium chloride (Klor-Con Sprinkle) 10 mEq ER capsule 10 mEq, Oral, DAILY predniSONE (DELTASONE) 2 mg, Oral, DAILY rosuvastatin (CRESTOR) 20 mg, Oral, EVERY EVENING Social Hx: ( James), never smoker, 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 Family Hx: Kidney stones (sister). No family hx malignancies. Review of Systems: General: Denies fever, chills, unexpected weight loss/gain HEENT: Denies change in hearing or vision Respiratory: Denies SOB, cough Cardiac: Denies chest pain, palpitations, syncope, LZAO GI: Denies changes in appetite, constipation, or diarrhea. : see HPI M/S: Denies weakness or unsteady gait Neuro: Denies headaches, lightheadedness, dizziness Endocrine: Denies diabetes Skin: No new skin lesions or rashes OBJECTIVE FINDINGS: Physical Exam Blood Pressure 148/73 (BP Location (NBP): Left arm, Patient Position: Sitting, BP Cuff Sizes: Adult(25-34 cm)) Pulse 82 Respiration 16 Height 158.8 cm (5' 2.5) Weight 92.1 kg (203 lb) Oxygen Saturation 99% Body Mass Index 36.54 kg/m?? GENERAL: Patient is well appearing and is not in acute distress. HEAD/NECK: Head is normocephalic and atraumatic. CARDIOVASCULAR: without LE Edema. RESPIRATORY: Breathing comfortably. No audible wheezes are appreciated. SKIN: Color normal. No significant skin lesions. ABDOMEN: The abdomen is soft, non-tender, without masses or organomegaly. There is no CV angle tenderness . M/S: Appear warm and well perfused. without gross motor defects. NEURO: Oriented to person, place, and time. PSYCH: Their mood is appropriate. Urine dipstick shows positive for RBC's and positive for leukocytes. LABS: Review of Tests: Lab Results Component Value Date NA 140 07/16/2023 K 3.6 07/16/2023 CL 109 (H) 07/16/2023 CO2 22 07/16/2023 BUN 14 07/16/2023 CREATININE 0.69 (L) 07/16/2023 GLUCOSE 94 07/16/2023 GLUCFASTING 101 (H) 07/15/2023 CALCIUM 9.4 07/16/2023 ESTGFR 92 07/16/2023 Relevant Imagin08/17/23: CT Abdomen & Pelvis (only report available to review) Assessment & Plan Page Katz is a 72 y.o. female with large 8mm left ureteral stone. We had a long discussion regarding the left ureteral stone. We discussed management options of medication expulsion therapy, stent placement for pain/obstruction, and/or ureteroscopy with lithotripsywith stone extraction, as well as watchful waiting, and the relative risks and benefits of each. She would like to tentative set a date for left URS/LL given stone size and intermittent symptoms. Sheis high risk due to recent cardiac stent placed for TX in 06/2023 and is [place]. We discussed generalized stone prevention: increased hydration ~2.5L water/day (target of 2L urine output /day), land low sodium diet. BMP today to check on renal function, no recent labs available. Urine culture sent today given positive dip and large ureteral stone. Given recent stent placement unable to go to [facility]- will plan for preop visit in [address] Alonzo and CT prior to check on stone location and hydro. Hold placed on his next available Main OR time. Reviewed tamsulosin to help passed stone, they will defer given stone size and dizziness already. Discussed pain management for passing a stone and first line recommendations of alternating acetaminophen and/or ibuprofen for pain. Additionally educated try utilizing heat/ice as appropriate for pain relief as well. In the interval, if patient develops increasing and uncontrolled pain, nausea, vomiting, fever, or chills, understands they need to return urgently and a stent or nephrostomy may be required. If patient passes the stone, to keep it for analysis and will return in 1 month with a renal U/S to assess for residual hydronephrosis. Follow up 2 weeks as scheduled with Dr. Alonzo wit CT prior. The patient understand and is agreeable to the plan above. All questions answered to their apparentsatisfaction. Shakira Gaines APRN [facility] Section of Urology [phone] documented in this encounter Plan of Treatment Upcoming Encounters Date Type Department Care Team (Late st Contact Info) Description 05/15/2024 1:00 PM EDT TH Visit (TeleHealth) [place] [address] Pasha Wood MD [facility] [place] [address] documented as of this encounter Procedures Procedure Name Priority Date/Time Associated Diagnosis Comments URINE CULTURE Routine 09/26/2023 7:54 PM EST Left ureteral stone BASIC METABOLIC PANEL STAT 09/26/2023 3:02 PM EST Left ureteral stone HC URINALYSIS ROUTINE Routine 09/26/2023 2:10 PM EST Left ureteral stone URINE HOLD Routine 09/26/2023 2:10 PM EST documented in this encounter Results * CT Abdomen & Pelvis wo Contrast (10/15/2023 9:54 AM EDT) Anatomical Region Laterality Modality Abdomen, Pelvis Computed Tomogra phy Impressions 10/15/2023 1:11 PM EDT Mid left ureteral 7 mm calculus with mild left hydronephrosis. Thank you for letting us participate in the care of this patient. ??If you are a health care provider and have any questions regarding this report, please contact the number below. ??For patients who have questions please contact the health child care giver that requested your imaging first. ? Electronically signed by: YENIFER NGUYEN MD, [facility] ([phone]), at 10/15/2023 1:11 PM Narrative 10/15/2023 1:11 PM EDT EXAMINATION: CT ABDOMEN AND PELVIS WO CONTRAST CLINICAL HISTORY: left ureteral stone, check on location and any hydro. N20.1, Calculus of ureter TECHNIQUE: Helical CT of the abdomen and pelvis without intravenous contrast. Oral contrast was not administered. Multiplanar reformatted images were generated. COMPARISON: CT 06/20/2013 FINDINGS: The absence of intravenous contrast limits the evaluation of solid viscera and vasculature. Lower chest: Mitral annular calcification. Liver: Regions appreciable hypoattenuation suggesting geographic steatosis. Bile ducts: Nondilated. Gallbladder: Surgically absent. Pancreas: Normal attenuation without ductal dilatation. Spleen: Normal size. Adrenals: Normal. Right kidney/ureter: Unchanged hyperattenuating upper pole proteinaceous/hemorrhagic cyst. Nonobstructive 3 mm upper pole calculus and punctate lower pole calculi. Left kidney/ureter: Fluid attenuation upper pole cyst. The proximal left collecting system is mildly prominent, particularly in comparison to the right, consistent with mild hydronephrosis with a 7 mm calculus in the mid ureter. Urinary Bladder: No bladder or proximal urethral calculi. Vasculature: No abdominal aortic aneurysm. Lymph Nodes: No enlarged lymph nodes. Bowel: Status post colectomy with right mid abdominal and ostomy. Parastomal hernia containing fat and distal small bowel. Small bowel loops are nondilated. Peritoneum and retroperitoneum: No free fluid or loculated fluid collection. No pneumoperitoneum. No mesenteric inflammation. Abdominal wall: Parastomal hernia containing fat and redundant distal small bowel. Tiny fat-containing ventral hernia in the midline upper abdomen. Reproductive organs: Status post hysterectomy per chart. No adnexal mass. Osseous structures: No suspicious lesions. Lumbar degenerative disc disease. Procedure Note Yenifer Nguyen MD - 10/15/2023 EXAMINATION: CT ABDOMEN AND PELVIS WO CONTRAST CLINICAL HISTORY: left ureteral stone, check on location and any hydro. N20.1, Calculus of ureter TECHNIQUE: Helical CT of the abdomen and pelvis without intravenouscontrast. Oral contrast was not administered. Multiplanar reformatted images were generated. COMPARISON: CT 06/20/2013 FINDINGS: The absence of intravenous contrast limits the evaluation of solid visceraand vasculature. Lower chest: Mitral annular calcification. Liver: Regions appreciable hypoattenuation suggesting geographicsteatosis. Bile ducts: Nondilated. Gallbladder: Surgically absent. Pancreas: Normal attenuation without ductal dilatation. Spleen: Normal size. Adrenals: Normal. Right kidney/ureter: Unchanged hyperattenuating upper pole proteinaceous/hemorrhagic cyst. Nonobstructive 3 mm upper pole calculusand punctate lower pole calculi. Left kidney/ureter: Fluid attenuation upper pole cyst. The proximal left collecting system is mildly prominent, particularly in comparison to theright, consistent with mild hydronephrosis with a 7 mm calculus in the midureter. Urinary Bladder: No bladder or proximal urethral calculi. Vasculature: No abdominal aortic aneurysm. Lymph Nodes: No enlarged lymph nodes. Bowel: Status post colectomy with right mid abdominal and ostomy.Parastomal hernia containing fat and distal small bowel. Small bowel loops arenondilated. Peritoneum and retroperitoneum: No free fluid or loculated fluidcollection. No pneumoperitoneum. No mesenteric inflammation. Abdominal wall: Parastomal hernia containing fat and redundant distalsmall bowel. Tiny fat-containing ventral hernia in the midline upper abdomen. Reproductive organs: Status post hysterectomy per chart. No adnexalmass. Osseous structures: No suspicious lesions. Lumbar degenerative discdisease. IMPRESSION Mid left ureteral 7 mm calculus with mild left hydronephrosis. Thank you for letting us participate in the care of this patient. If youare a health care provider and have any questions regarding this report,please contact the number below. For patients who have questions please contactthe health child care giver that requested your imaging first. Shakira Gaines APRN IMG CT ORDERABLES * Urine culture Clean Catch Urine (09/26/2023 7:54 PM EST) Urine Culture 1,000-9,000 cfu/ml Insignificant growth [facility] Clean Catch Urine 09/26/2023 7:54 PM EST 09/26/2023 7:54 PM EST Narrative Resulting Agency Comment Spec In Lab Shakira Gaines APRN MICROBIOLOGY - GENE RAL ORDERABLES [facility] [place] [address] * (ABNORMAL) Basic Metabolic Panel (non-fasting) (09/26/2023 3:02 PM EST) Glucose 100 65 - 199 mg/dL [facility] Comment:Diabetes: >=200 mg/d L plus symptoms Blood Urea Nitrogen 15 8 - 18 mg/dL [facility] Creatinine 0.65(L) 0.70 - 1.20 mg/dL [facility] Sodium 144 135 - 145 mmol/L [facility] Potassium 3.7 3.5 - 5.0 mmol/L [facility] Comment: Please note: ??Patients with WBC >100,000 may have falsely elevated Potassium levels. ??For accurate Potassium quantification in these patients send serum separator tube (gold top) for subsequent determinations. ??Contact the Clinical Chemistry Laboratory if there are any questions. Chloride 105 98 - 107 mmol/L [facility] Carbon Dioxide 27 22 - 31 mmol/L [facility] Anion Gap 12 5 - 15 mmol/L [facility] Calcium 10.5 8.5 - 10.5 mg/dL [facility] Est Glomerular Filtration Rate 93 >=60 mL/min/1. 73 m?? [facility] Comment: This patient's estimated [...] and symptoms in addition to eGFR. Blood 09/26/2023 3:02 PM EST 09/26/2023 3:08 PM EST Narrative Resulting Agency Comment Spec In Lab Shakira Gaines APRN CHEMISTRY ORDERABLE S Performing Organization Address [facility] Co de Phone Number [facility] [place] [address] * Urine Hold (09/26/2023 2:10 PM EST) Hold, Urine Sample in lab. [facility] Urine Urine / Unknown 09/26/2023 2 :10 PM EST 09/26/2023 6:48 PM EST Shakira Gaines [employer] URINE ORDERABLES Performing Organization Address City/[facility] Co de Phone Number [facility] [place] [address] * (ABNORMAL) _Urinalysis with microscopic (09/26/2023 2:10 PM EST) Glucose, Urine Dipstick Negative Negative mg/dL [facility] Protein, Urine Dipstick Negative Negative mg/dL [facility] Bilirubin, Urine Dipstick Negative Negative mg/dL [facility] Comment: Clinical correlation required for positive Urine Bilirubin results as false positive may occur with some drugs and drug related products. If a false positive is suspected a serum total bilirubin should be considered if clinically indicated. Urobilinogen, Urine Dipstick Normal Normal mg/dL [facility] pH, Urn (dipstick) 6.0 5.0 - 8.0 [facility] Blood, Urine Dipstick Trace(A) Negative mg/dL [facility] Ketone, Urine Dipstick Negative Negative mg/dL [facility] Nitrite, Urine Dipstick Negative Negative [facility] Leukocytes, Urine Dipstick Negative Negative mcL [facility] Appearance, Urine Dipstick Clear Clear [facility] Specific [place] Urine Automated 1.013 1.005 - 1.030 [facility] Color, Urine Dipstick Yellow Yellow [facility] RBC, Urine 1 0 - 4 /HPF [facility] WBC, Urine 4 0 - 5 /HPF [facility] Squamous Epithelial Cells Raw Data, Urine 1 <=4 /HPF [facility] Hyaline Casts, Urine 1 0 - 2 /LPF [facility] Urine 09/26/2023 2:10 PM EST 09/26/2023 6:48 PM EST Narrative Resulting Agency Comment Spec In Lab Shakira Gaines APRN URINE ORDERABLES Performing Organization Address City/State/[facility] Co de Phone Number [facility] [place] [address] documented in this encounter Visit Diagnoses Diagnosis Left ureteral stone Bilateral nephrolithiasis Left ureteral stone documented in this encounter Care Teams Cash Management Clerk Relationship Specialty Start Date End Date Latha Aguirre MD [address] [place] [phone] PCP - General Family Medicine 06/28/23 documented as of this encounter
--- OUTSIDE RECORDS SUMMARY | 2024-03-27 20:52 | XMS_ITS | Encounter Summary ---
Author Organization [facility] Address [facility] [place] [address] Care Team Providers Care Car Loader Name Role Phone Latha Aguirre MD Primary Care Provider [phone] Encounter Details Date Type Department Care Team (Latest Contact Info) Description 11/19/2023 Travel Social History Tobacco Use Types Packs/Day Years Used Date Smoking Tobacco: Never Smokeless Tobacco: Never Alcohol Use Standard Drinks/Week Comments No 0 (1 standard drink = 0.6 oz pur e alcohol) [facility] Utilities Answer Date Recorded In the past [...] in a intermediate (including now)? No 10/22/2023 IPV Inpatient Questions [...] PM EDT TH Visit (TeleHealth) [place] [address] Pasha Wood MD [facility] [place] [address] documented as of this encounter Visit Diagnoses Not on filedocumented in this encounter Care Teams Car Loader Relationship Specialty Start Date End Date Latha Aguirre MD [address] [place] [id number] PCP - General Family Medicine 06/28/23 documented as of this encounter
--- OUTSIDE RECORDS SUMMARY | 2024-03-27 20:52 | XMS_ITS | Encounter Summary ---
[place] [address] Care Team Providers Care Sex Therapist Name Role Phone Latha Aguirre MD Primary Care Provider [phone] Encounter Details Date Type Department Care Team (Late st Contact Info) Description 10/01/2023 [place]phone [place] [address] Shari Castellanos, RN Social History Tobacco Use Types Packs/Day Years Used Date Smoking Tobacco: Never Smokeless Tobacco: Never Alcohol Use Standard Drinks/Week Comments No 0 (1 standard drink = 0.6 oz pur e alcohol) [facility] Inpatient Questions Answer Date Recorded [...] of this encounter Progress Notes * Shari Castellanos, RN - 10/01/2023 9:46 AM EST Call returned to patient. Patient reports that she noted light pink urine since her office visit with Shakira Gaines APRN on 09/26. Patient denies fever/chills or difficulty with urination. Urine culture from 09/26: 1,000-9,000 cfu/ml Insignificant growth Patient is scheduled for CT scan and follow up with Dr. Alonzo on 10/14. Patient will increase water intake, limit bladder irritants and will continue to monitor. Instructed patient to call back if bleeding worsens, if she develops urinary symptoms or difficulty voiding. documented in this encounter Miscellaneous Notes * Telephone Encounter - Shari Castellanos RN - 10/01/2023 9:44 AM EST Copied from [facility] #[id number]. Topic: Specialty Dept CRMs - Triage >> Oct 01, 2023 8:33 AM Thea Castañeda wrote: Triage Message Specialist: Urology Relationship (if other than patient-full name): Self Symptom: Blood in urine Has patient experienced symptom before : No If patient has experienced symptom before, when was the last time this occurred Is patient currently having symptom : Yes When did symptom begin: Sunday Additional Comments: Patient states she has a stone and saw Shakira Gaines on 09/26/23 and Shakira did say they saw blood in her urine but she did not see it. Patient states that they are able to see the color in her urine as of Sunday morning. Patient most of the time its a light pink in color. Please call patient to discuss. documented in this encounter Plan of Treatment Upcoming Encounters Date Type Department Care Team (Late st Contact Info) Description 05/15/2024 1:00 PM EDT TH Visit (TeleHealth) [place] [address] Pasha Wood MD [facility] [place] [address] documented as of this encounter Visit Diagnoses Not on filedocumented in this encounter Care Teams Sex Therapist Relationship Specialty Start Date End Date Latha Aguirre MD [address] [place] [id number] PCP - General Family Medicine 06/28/23 documented as of this encounter
--- OUTSIDE RECORDS SUMMARY | 2024-03-27 20:52 | XMS_ITS | Encounter Summary ---
Author Organization [facility] [place] [address] Care Team Providers Care Salesperson [employer] Name Role Phone Latha Aguirre MD Primary Care Provider [phone] Encounter Details Date Type Department Care Team (Late st Contact Info) Description 10/21/2023 1:45 AM EDT Ancillary Procedure [place] [address] Latha Aguirre MD [address] [place] [id number] Social History Tobacco Use Types Packs/Day Years Used Date Smoking Tobacco: Never Smokeless Tobacco: Never Alcohol Use Standard Drinks/Week Comments No 0 (1 standard drink = 0.6 oz pur e alcohol) [facility] Utilities Answer Date Recorded In the past 12 months has [employer], gas, oil, or water [employer] threatened to shut off services in your home? No 10/22/2023 Hunger Vital Sign Answer Date Recorded Within the past 12 months, y ou worried that your food would run out before you got the money to buy more. Never true 10/22/19 Within the past 12 months, t he [...] in a halfway (including now)? No 10/22/2023 IPV Inpatient Questions [...] PM EDT TH Visit (TeleHealth) [place] [address] Pasha Wood MD [facility] [place] [address] documented as of this encounter Procedures Procedure Name Priority Date/Time Associated Diagnosis Comments FILM LIBRARY STORAGE ONLY CT CHEST ABDOMEN PELVIS Routine 10/21/2023 1:44 AM EDT documented in this encounter Results * Film Library- Storage Only CT Chest Abdomen Pelvis (10/21/2023 1:44 AM EDT) Narrative RAD - 10/21/2023 1:44 AM EDT This exam is auto-finalizing. It's purpose is for storage only. Latha Aguirre MD G FILM LIBRARY ORD ERABLES [facility] [place], [place] documented in this encounter Visit Diagnoses Not on filedocumented in this encounter Care Teams Salesperson [employer] Relationship Specialty Start Date End Date Latha Aguirre MD [address] [place] [address] PCP - General Family Medicine 06/28/23 documented as of this encounter
--- OUTSIDE RECORDS SUMMARY | 2024-03-27 20:52 | XMS_ITS | Encounter Summary ---
[place] [address] Care Team Providers Care Epic Director Name Role Phone Latha Aguirre MD Primary Care Provider Reason for Referral * Diagnostic Test (Routine) - Closed Specialty Diagnoses / Procedures Referred By Justen javier Referred To Contact Urology Diagnoses Nephrolithiasis Procedures Cysto Stent Removal Alfredito Alonzo Jr., MD [facility] [place] [address] [place] [address] Referral ID Status Reason Start Date Expiration Date V isits Requested Visits Authorized [id number] Closed Test Only 11/19/2023 11/18/2024 1 1 Reason for Visit * Reason Comments Nephrolithiasis * Diagnostic Test (Routine) - Closed Specialty Diagnoses / Procedures Referred By Justen javier Referred To Contact Urology Diagnoses Nephrolithiasis Procedures Cysto Stent Removal Alfredito Alonzo Jr., MD [facility] [place] [address] [place] [address] Referral ID Status Reason Start Date Expiration Date V isits Requested Visits Authorized [id number] Closed Test Only 11/19/2023 11/18/2024 1 1 Encounter Details Date Type Department Care Team (Latest Contact Info) Description 11/19/2023 7:40 AM EDT Procedure visit Urology at [facility] [place] [address] Alfredito Alonzo Jr., MD [facility] [place] [address] Nephrolithiasis; Recurrent kidney stones; History of obstruction of ureter Social History Tobacco Use Types Packs/Day Years Used Date Smoking Tobacco: Never Smokeless Tobacco: Never Alcohol Use Standard Drinks/Week Comments No 0 (1 standard drink = 0.6 oz pur e alcohol) [facility] Utilities Answer Date Recorded In the [...] place to sleep or slept in a alf (including now)? No 10/22/2023 [facility] Inpatient Questions Answer Date Recorded Does Anyone [...] Sign Reading Time Taken Comments Blood Pressure 169/88 11/19/2023 7:55 AM EDT Pulse 78 11/19/2023 7:55 AM EDT Temperature - - Respiratory Rate - - Oxygen Saturation - - Inhaled Oxygen Concentration - - Weight - - Height - - Body Mass Index - - documented in this encounter Patient Instructions * Patient Instructions* Guero Brown RN - 11/19/2023 7:40 AM EDT Instructions following Cystoscopy Activity: As tolerated by your comfort level. Fluids: You should increase your water today. Avoid coffee, tea and cola. You do not need to [id number] ounces of water today. Urination: You will likely have a small amount of blood in your urine for the next several days. This is normal; however, if you are passing large amounts of blood clots or are unable to void please call our office at [phone] before 5PM or [phone] after hours. Please call if: * you have copious blood in your urine * fevers greater than 101.3 F * you are unable to void The number for questions is [phone] before 5 PM weekdays and [phone] after 5 PM and weekends. Follow-up: 6 week follow up renal ultrasound. documented in this encounter Progress Notes * Alfredito Alonzo Jr., MD - 11/19/2023 7:40 AM EDT HPI: Page Katz is a 72 y.o. female with history of recurrent mixed CaOx- based nephrolithiasis. In 2012, she underwent left PCNL for >2cm branched staghorn left renal stone, mixed CaOx. We had offered metabolic evaluation which she declined. We had planned annual follow up but she did notreturn until 2023 She was initially seen for her most current left ureteral stone on 08/17/23 with flank pain, [facility], and given history of LAD stent placed in 06/2023 [place] [facility] [place]. Elective left ureteroscopy had been scheduled, but she she then presented in interval with severe left flank pain. She underwent urgent stent placement on 10/21/23 for acute on chrnic left flank pain, then underwentleft ureteroscopy on 11/01/23. Intraoperative findings were notable for mpacted left ureteral stone, with marked edematous mucosal changes surrounding stone. Stone fragmented and all fragments extracted. Fluoroscopically and endoscopically stone free at procedure conclusion. Stent replaced due to impacted stone. She underwent planned stent removal today. We discussed further evaluation for recurrent nephrolithiasis PMHx: polymyalgia rheumatica, hypothyroidism, hyperlipidemia, Crohn's disease, colon CA, HTN; CAD/NSTEMI PSHx: total colectomy; cholecystectomy; thyroidectomy; bilateral knee replacement; left PCNL; left URS FamHx:+ family h/o urolithiasis (sister, has had SWL) SocHx: no tobacco; no EtOH Stone Analysis: 40% Calcium oxalate monohydrate 30% Calcium oxalate dihydrate 30% Calcium phosphate(apatite). (2012 - -60 % calcium oxalate monohydrate, 20% calcium oxalate dihydrate and 20% calcium phosphate (apatite) ) Latest Reference Range & Units 10/21/23 09:50 Sodium 135 - 145 mmol/L 139 Potassium 3.5 - 5.0 mmol/L 3.9 Chloride 98 - 107 mmol/L 101 CO2 22 - 31 mmol/L 26 Anion Gap 5 - 15 mmol/L 12 BUN 8 - 18 mg/dL 11 Creatinine 0.70 - 1.20 mg/dL 0.72 Estimated GFR >=60 mL/min/1.73 m?? 89 Calcium 8.5 - 10.5 mg/dL 9.8 Impression/Plan: Mixed CaOxMonohydrate / CaOxDi/CaPhos recurrent nephrolithiasis. 1) Mixed CaOx stone. We reviewed general dietary modifications for those with CaOx-based stones. Wediscussed the role of a low oxalate low sodium diet with increased hydration, targeting 2.5 liters urine output daily. Given stone recurrence, I offered metabolic evaluation including serum chemistry and 24 h urine studies. -She has undergone recent BMP, copied above, without evident serum electrolyte abnormalities -We discussed litholink 24h urine studies, potential findings and potential action items, as well as logistic and follow up. For now, she declines 24h urine but will revisit after 6 week followup imaging 2) Impacted left ureteral stone, now treated. We discussed that stone has been addressed, but given prolonged impacted state there remains possibility of sequelae including stricture. As such, I emphasized importance of follow up upper tract imaging to assess for full resolution of hydronephrosis. We discussed that if persistent / worsening hydronephrosis were noted, even in the absence of symptoms, that drainage via stent or nephrostomy maybe needed for renal preservatin, potentially followed by additional surgical intervention. She agrees to return in 6-10 weeks for follow up imaging with renal u/s. documented in this encounter Procedure Notes * Alfredito Alonzo Jr., MD - 11/19/2023 7:40 AM EDTAssociated Order(s): CYSTO, STENT REMOVAL Procedure(s): CYSTO, STENT REMOVAL Pre-Procedure Diagnose(s): Nephrolithiasis HPI: Page Katz is a 72 y.o. female who returns for left ureteral stent removal after undergoing left ureteroscopy for mixed CaOx ureteral stone She underwent urgent stent placement on 10/21/23 for acute on chrnic left flank pain, then underwentleft ureteroscopy on 11/01/23. Intraoperative findings were notable for impacted left ureteral stone,with marked edematous mucosal changes surrounding stone. Stone fragmented and all fragments extracted. Fluoroscopically and endoscopically stone free at procedure conclusion. Stent placed due to impacted stone. She presents today for planned stent removal. Procedure: We discussed the procedure, risks and planned benefit. We discussed the need to remove the stent asthey cannot stay in indefinitely, as well as the risk of possible need for stent or nephrostomy replacement if there was any residual or future ureteral obstruction. Informed consent was obtained. Page Katz was taken to the cystoscopy room and prepped and draped by our urology nurse. Prophylactic antibiotic administration was confirmed. Topical viscous lidocaine gel was applied to the urethra for local anesthetic. A timeout was performed. Flexible cystoscopy was performed. The urethra was without abnormality. The bladder was entered and inspected. No focal mucosal abnormality was seen. The stent was seen emanating from the left ureteral orifice. It was grasped and extracted. It wasinspected and found to be intact. She tolerated the procedure well. I instructed Page Katz of the need to return in approximately 6 weeks for renal ultrasound toensure that there is no residual hydronephrosis. I cautioned her to contact us immediately with increasing pain, fever, or chills as this could suggest obstruction and may need to be further evaluated on an urgent or emergent basis. I have asked her to call with any additional questions. Impression/Plan: Doing well s/p left ureteroscopy . Stent removed without difficulty. 1) Plan reimaging in 6-10 weeks to assess for resolution of any hydronephrosis documented in this encounter Plan of Treatment Upcoming Encounters Date Type Department Care Team (Late st Contact Info) Description 05/15/2024 1:00 PM EDT TH Visit (TeleHealth) [place] [address] Pasha Wood MD [facility] [place] [address] Scheduled Orders Name Type Priority Associated Diagnoses Orde r Schedule US Retroperitoneal Complete Imaging Routine Nephrolithiasis Recurrent kidney stones Expected: 12/19/2023, Expires: 02/18/2024 documented as of this encounter Procedures Procedure Name Priority Date/Time Associated Diagnosis Comments CYSTO, STENT REMOVAL Routine 11/19/2023 7:40 AM EDT Nephrolithiasis documented in this encounter Results * CYSTO, STENT REMOVAL (11/19/2023 7:40 AM EDT) Narrative Alfredito Alonzo Jr., MD - 11/19/2023 7:40 AM EDT Alfredito Alonzo Jr., MD ? 11/19/2023 ??9:17 AM HPI: ??Page Katz is a 72 y.o. female who returns for left ureteral stent removal after undergoing left ureteroscopy for mixed CaOx ureteral stone She underwent urgent stent placement on 10/21/23 for acute on chrnic left flank pain, then underwent left ureteroscopy on 11/01/23. ??Intraoperative findings were notable for impacted left ureteral stone, with marked edematous mucosal changes surrounding stone. Stone fragmented and all fragments extracted. Fluoroscopically and endoscopically stone free at procedure conclusion. ??Stent ??placed due to impacted stone. ??She presents today for planned stent removal. Procedure: We discussed the procedure, risks and planned benefit. We discussed the need to remove the stent as they cannot stay in indefinitely, as well as the risk of possible need for stent or nephrostomy replacement if there was any residual or future ureteral obstruction. Informed consent was obtained. Page Katz was taken to the cystoscopy room and prepped and draped by our urology nurse. ??Prophylactic antibiotic administration was confirmed. ??Topical viscous lidocaine gel was applied to the urethra for local anesthetic. A timeout was performed. ??Flexible cystoscopy was performed. ??The urethra was without abnormality. ??The bladder was entered and inspected. ??No focal mucosal abnormality was seen. ??The stent was seen emanating from the left ureteral orifice. ??It was grasped and extracted. ?? It was inspected and found to be intact. ??She tolerated the procedure well. ?? I instructed ??Page Katz ??of the need to return in approximately 6 weeks for renal ultrasound to ensure that there is no residual hydronephrosis. ??I cautioned her to contact us immediately with increasing pain, fever, or chills as this could suggest obstruction and may need to be further evaluated on an urgent or emergent basis. ??I have asked her to call with any additional questions. Impression/Plan: Doing well s/p left ureteroscopy . ??Stent removed without difficulty. 1) Plan reimaging in 6-10 weeks to assess for resolution of any hydronephrosis Alfredito Alonzo Jr., MD URO PROCEDURE W RF L ORDERABLES documented in this encounter Visit Diagnoses Diagnosis Nephrolithiasis Calculus of kidney Recurrent kidney stones Calculus of kidney History of obstruction of ureter documented in this encounter Administered Medications Inactive Administered Medications - up to 3 most recent administrations Medication Order MAR Action Action Date Dose Rate Site sulfamethoxazole-trimethoprim DS (Bactrim DS) 800-160 mg per tablet 1 tablet 1 tablet, Oral, EVERY 12 HOURS SCHEDULED (2 times per day), First dose on Sun11/19/23 at 0900, Until Discontinued, Routine, Indication for (Active or Suspected): Prophylaxis Given 11/19/2023 7:50 AM EDT 1 tablet documented in this encounter Care Teams Epic Director Relationship Specialty Start Date End Date Latha Aguirre MD [address] [place] [id number] PCP - General Family Medicine 06/28/23 documented as of this encounter
--- OUTSIDE RECORDS SUMMARY | 2024-03-27 20:52 | XMS_ITS | Encounter Summary ---
Author Organization [facility] [place] [address] Care Team Providers Care Cutter Down Name Role Phone Latha Aguirre MD Primary Care Provider [phone] Reason for Visit * Reason Comments Hospital Transfer Flank Pain Left- known kidney s tone * Auth/Cert (Routine) Specialty Diagnoses / Procedures Referred By Contac t Referred To Contact Diagnoses Kidney stone obstructimg stone Inessa Alonzo Jr., MD [facility] [place] [address] [place] [address] [facility] Referral ID Status Reason Start Date Expiration Date Visits Re quested Visits Authorized [id number] 1 1 Encounter Details Date Type Department Care Team (Late st Contact Info) Description 10/21/2023 11:45 AM EDT - 10/21/2023 1:28 PM EDT Surgery [place] [address] Inessa Alonzo Jr., MD [facility] [place] [address] [place] [address] CYSTO, STENT PLACEMENT (WRVU 2.82) Social History Tobacco Use Types Packs/Day Years Used Date Smoking Tobacco: Never Smokeless Tobacco: Never Alcohol Use Standard Drinks/Week Comments No 0 (1 standard drink = 0.6 oz pur e alcohol) [facility] Utilities Answer Date Recorded In [...] place to sleep or slept in a skilled nursing (including now)? No 10/22/2023 DH IPV Inpatient [...] Sign Reading Time Taken Comments Blood Pressure 132/89 10/21/2023 1:00 PM EDT Pulse 75 10/21/2023 1:00 PM EDT Temperature 36.2 ??C (97.2 ??F) 10/21/2023 12:19 PM E DT Respiratory Rate 19 10/21/2023 1:00 PM EDT Oxygen Saturation 94% 10/21/2023 1:00 PM EDT Inhaled Oxygen Concentration - - Weight 92.1 kg (203 lb) 10/21/2023 9:00 AM EDT Height - - Body Mass Index 37.13 10/21/2023 3:58 PM EDT documented in this encounter Discharge Summaries * Javad Jackson MD - 10/22/2023 8:02 AM EDT Images from the original note were not included. Discharge Summary Patient Name: Page Katz Patient Age: 72 y.o. Language: Namibian Race: White Ethnicity: Not nor Admit date: 10/21/2023 Discharge date: 10/22/23 Attending Physician: Inessa Alonzo Jr., MD Discharge Physician: SPENCER Discharge Diagnoses (Hospital Problems) and Secondary Diagnoses (Chronic Problems): Active Hospital Problems Diagnosis Kidney stone Resolved Hospital Problems No resolved problems to display. Active Non-Hospital Problems Diagnosis Left ureteral stone Bilateral nephrolithiasis NSTEMI (non-ST elevated myocardial infarction) Colon cancer Depression Essential hypertension Obesity (BMI 30-39.9) Seronegative rheumatoid arthritis Vitamin D deficiency NAFLD (nonalcoholic fatty liver disease) Endometrial cancer Complex endometrial hyperplasia with atypia S/P thyroidectomy Thyroid cancer Hypothyroidism Operations/Major Procedures: Procedure(s): CYSTO, STENT PLACEMENT (WRVU 2.82) 10/21/2023 History of Presentation: Page Katz is a 72 y.o. year old female being seen for 8mm left ureteral stone. She was seenfor on 08/17/22 with flank pain in which she saw PCP who ordered CT at [facility], given history of LAD stent placed in 06/2023 referred to [facility] for surgical intervention. She had onset of significant pain yesterday and was sent to the ED. She states she began having symptoms at the end of July with LLQ pain which she initially felt was r/t bowel obstructing but imaging showed large stone. She has had kidney stone in the past with Dr. Alonzo s/p left PCNL in 05/2013 for >2cm stone. Workup in the ED consisted of a CT which showeda now obstructing left ureteral stone and a UA that was not infected. Hospital Course: Patient was admitted to [facility] via the ED and underwent the above procedure. She tolerated surgery well and was tranferred from the PACU to the general floor in good condition a few hours after surgery. Patient's hospital course was uncomplicated. She remained afebrile, with stable vital signs throughout her hospital stay. Today, on POD# 1 she has met all criteria for discharge home: her pain is well controlled with medications by mouth, she is tolerating a regular diet, is voiding spontaneously without difficulties, and is up and ambulating without complications. She has been deemed safe for discharge. PLAN - URS scheduled / Vital Signs at Discharge: Weight: Wt Readings from Last 1 Encounters: 10/21/23 92.1 kg (203 lb) Height: Ht Readings from Last 1 Encounters: 10/21/23 157.5 cm (5' 2) BMI: Body mass index is 37.13 kg/m??. Last value Range last 24 hrs Temperature Temp: 36.8 ??C (98.2 ??F) Temp: [36.2 ??C (97.2 ??F)-36.8 ??C (98.2 ??F)] Heart Rate Heart Rate: 75 Heart Rate: [62-81] Blood Pressure BP: 172/83 BP: (115-173)/(59-89) Respiratory Rate Resp: 18 Resp: [11-20] SpO2 SpO2: 99 % SpO2: [81 %-100 %] Exam at Discharge: General: NAD CV: RRR Functional and Cognitive Status: Ambulating and cognitively intact. Important Studies and Lab Data: Labs:Last wbc, hgb, hct plt Recent Labs 10/21/23 0950 WBC 13.6* HGB 13.9 HCT 41.0 Studies: None Pending Studies and Lab Data: The patient will need the following 2 tests completed on: 10/21/2023 1. Urinalysis with reflex Culture 2. Urine culture Cystoscopic Urine Diagnosis: Authorizing Provider: Chi Caal MD, Inessa Alonzo Jr., MD Discharge Conditions/Prognosis: Good Discharge to: Home Updated Allergies/ADRs: Allergies Allergen Reactions Atorvastatin Other reaction(s): elevated LFTs Fentanyl Other reaction(s): altered mental status Other [Unclassified Drug] Other (See Comments) Pain Patch(drug unknown) Fentanyl- confused hallucinations Immunizations Given this Hospitalization: Immunization History Administered Date(s) Administered Influenza Vaccine, Whole 07/30/2003, 07/30/2007 Pneumococcal Polysaccharide (Pneumovax 23) 07/30/2006 Discharge Medications: Your Medications New Medications Dose Details tamsulosin 0.4 mg capsule Commonly known as: Flomax Take 1 capsule by mouth daily. 0.4 mg Quantity: 90 tablet Refills: 0 Continued medications, unchanged Dose Details ALPRAZolam 0.25 mg tablet Commonly known as: Xanax Take 0.25 mg by mouth nightly as needed for Anxiety. 0.25 mg Refills: 0 amLODIPine 5 mg tablet Commonly known as: Norvasc Take 5 mg by mouth 2 times daily. 5 mg Refills: 0 aspirin 81 mg chewable tablet Take 81 mg by mouth daily. 81 mg Quantity: 30 tablet Refills: 3 clopidogreL 75 mg tablet Commonly known as: Plavix Take 1 tablet by mouth daily. 75 mg Quantity: 90 tablet Refills: [address] capsule Commonly known as: Cymbalta Take 1 capsule by mouth Daily at Noon. 1 capsule Refills: 0 Humira(CF) Pen 40 mg/0.4 mL Pen Injector Kit Inject 0.4 mLs subcutaneously every 14 days. Indications: rheumatoid arthritis Generic drug: adalimumab 40 mg Quantity: 1 kit Refills: 5 hydroCHLOROthiazide 25 mg tablet Commonly known as: HydroDiuril Take 25 mg by mouth daily. 25 mg Refills: 0 levothyroxine 125 mcg tablet Commonly known as: Synthroid Take 125 mcg by mouth daily. 2 days a week 125 mcg Refills: 0 losartan 100 mg tablet Commonly known as: Cozaar Take 100 mg by mouth daily. 100 mg Refills: 0 * metoprolol succinate XL 50 mg ER 24 hr tablet Commonly known as: Toprol-XL Take 50 mg by mouth daily. 50 mg Refills: 0 metroNIDAZOLE 0.75 % Cream Commonly known as: METROCREAM Apply topically as needed. Refills: 0 nitroGLYcerin 0.4 mg sublingual tablet Commonly known as: Nitrostat Place 1 tablet under the tongue every 5 minutes as needed for Chest pain. 0.4 mg Quantity: 90 tablet Refills: [address] capsule Commonly known as: PriLOSEC Take 40 mg by mouth daily. 40 mg Refills: 0 One-A-Day Womens Formula 27-0.4 mg Tablet Generic drug: Cqhaihmddkuxn-Fc-Mado-Minerals Refills: 0 potassium chloride 10 mEq ER capsule Commonly known as: Klor-Con Sprinkle Take 10 mEq by mouth daily. 10 mEq Refills: 0 predniSONE 1 mg tablet Commonly known as: Deltasone Take 2 mg by mouth daily. 2 mg Refills: 0 rosuvastatin 20 mg tablet Commonly known as: Crestor Take 1 tablet by mouth every evening. 20 mg Quantity: 90 tablet Refills: 3 * This list has 1 medication(s) that are the same as other medications prescribed for you. Read thedirections carefully, and ask your doctor or other care provider to review them with you. UNREVIEWED medications - Discuss With Your Provider Dose Details * metoprolol succinate XL 25 mg ER 24 hr tablet Commonly known as: Toprol-XL Take 1 tablet by mouth daily. 25 mg Quantity: 30 tablet Refills: 3 * This list has 1 medication(s) that are the same as other medications prescribed for you. Read thedirections carefully, and ask your doctor or other care provider to review them with you. Smoking Status at Discharge: Social History Tobacco Use Smoking Status Never Smokeless Tobacco Never Instructions Given to Patient at Discharge: Patient Instructions DISCHARGE INSTRUCTIONS CALL YOUR PHYSICIAN IF: You [...] 500-1000 mg every 6 hours as needed. You have been prescribed tamsulosin, which may help to decrease the discomfort associated with the indwelling stent. Please take the medication as prescribed. DRIVING RESTRICTIONS Do not operate a vehicle [...] Orders Future Appointments Provider Department Dept Phone 12/26/2023 1:30 PM Pasha Wood MD Rheumatology at [facility] Arrive at: [facility] [phone] You will return for Ureteroscopy in 2 weeks. We will send you the date and time. Please remember that you have a ureteral stent in place. A stent is not a permanent device and mustbe removed as instructed by your urologist; failure to remove a stent may result in the need for more procedures. General Instructions None Future Appointments and Orders Future Appointments and Orders Future Appointments Provider Department Dept Phone 12/26/2023 1:30 PM Pasha Wood MD Rheumatology at [facility] Arrive at: [facility] [phone] Follow-Up: Future Appointments Date Time Provider Department Center 12/26/2023 1:30 PM Pasha Wood MD [facility] RHEUM [facility] Primary Care Provider: Latha Aguirre MD [phone] Follow-up Recommendations for Providers: None Call your doctor if: Please call your doctor immediately or go to an Emergency Department if you notice worsening pain not controlled by pain medications, uncontrolled headache, vision changes, chest pain, difficulty breathing, persistent nausea and vomiting, new redness or swelling in any extremities, new onset weakness or changes in sensation, or for any fevers greater than 101.3 F. Your care was managed by the Urology Team at [facility]. If you have any questions or concerns, please feel free to contact us. Provider Contact Information: Urology Clinic: [facility] (after business hours): documented in this encounter Discharge Instructions * Patient Instructions* Javad Jackson MD - 10/22/2023 8:01 AM EDT DISCHARGE INSTRUCTIONS CALL YOUR PHYSICIAN [...] 500-1000 mg every 6 hours as needed. You have been prescribed tamsulosin, which may help to decrease the discomfort associated with the indwelling stent. Please take the medication as prescribed. DRIVING RESTRICTIONS Do not operate a vehicle [...] Orders Future Appointments Provider Department Dept Phone 12/26/2023 1:30 PM Pasha Wood MD Rheumatology at [facility] Arrive at: [facility] [phone] You will return for Ureteroscopy in 2 weeks. We will send you the date and time. Please remember [...] by mouth daily. 2 days a week Piazyxojglioq-Me-Gmw n-Minerals (ONE-A-DAY WOMENS FORMULA) 27-0.4 mg Tab 08/19/2009 predniSONE (Deltasone) 1 mg tablet Take 2 mg by mouth daily. 10/10/2023 01/11/2024 hydroCHLOROthiazide (Hydrodiuril) 25 mg tablet Take 25 mg by mouth daily. 02/06/2023 11/01/2023 potassium chloride (Klor-Con Sprinkle) 10 mEq ER capsule Take 10 mEq by mouth daily. 02/06/2023 10/31/2023 losartan (COZAAR) 100 mg Tablet Take 100 mg by mouth daily. 11/01/2023 documented as of this encounter Progress Notes * Katina Dickinson RN - 10/22/2023 10:08 AM EDT Patient discharged to home. Pt had questions regarding discharge medications, MD Zee Cui notified. IV removed. RN reviewed After Visit Summary information with patient and . Patient verbalized understanding of all discharge instructions and medications and follow up appointments. Patientwas encouraged to call with questions or concerns. Patient has all belongings. Katina Dickinson RN * Katina Dickinson RN - 10/21/2023 6:02 PM EDT ADMISSION/TRANSFER NOTE Transfer from: PACU Transfer to: [facility] Room 456A Time of transfer: 1552 Vitals: Temp 36.3 HR 81 BP 146/60 MAP 89 RR 16 O2 98% RA Patient is A&Ox4, denies CP or SOB, denies numbness/tingling. Pt rates pain 0/10. NS infusing at 100 mL/hr. OOB to bathroom SBA, urine pink. Pt c/o dysuria and burning this evening, paged, pyridium ordered. Ambulated in hallway and around unit, SBA. See flow sheet for further assessments. Patient oriented to room and call carmichael. Call carmichael within reach. Family at bedside. Katina Dickinson RN * Bert Guardado IV, - 10/21/2023 1:50 PM EDT UROLOGY POST-OP NOTE Page Katz is a 72 y.o. female s/p cystoscopy and stent placement. Subjective Pain well-controlled, feels much better than pre-operative state. Denies nausea/vomiting, chest pain, SOB. Objective Temp: [36.2 ??C (97.2 ??F)-36.8 ??C (98.2 ??F)] Heart Rate: [62-81] Resp: [11-20] BP: (115-173)/(59-89) SpO2: [81 %-100 %] Heart Rate from SpO2: [61 bpm-81 bpm] I/O this shift: In: 200 [I.V.:200] Out: 90 [Urine:90] Physical Exam GEN: NAD. Resting comfortably. CV: RRR, normal S1 S2 sounds. CHEST: CTAB. ABD: Soft, nontender to light palpation, non-distended. EXTR: Moving spontaneously, warm. SCDs in place. Assessment/Plan Page Katz is a 72 y.o. female s/p cystoscopy and stent placement. Stable post-op. - Pain well-controlled on current regimen. - Hemodynamically stable. - UOP adequate, continue to monitor. - SCDs in place. - Continue post-op plan per primary team. * Page Darby RN - 10/21/2023 12:29 PM EDT 1219 pt admitted to PACU, s/p cysto stent and left kidney stone removal. Monitors attached and alarms set, report received from OR team. VSS upon admission, oral airway in place. Pt sleeping at this time. WCM 1300 pt ambulated from bed to commode and voided 90 cc of pink tinged urine. Pt denied dizzyness orSOB, required minimal assistance with commode. VSS, WCM 1400 at bedside visiting. documented in this encounter H&P Notes * Javad Jackson MD - 10/21/2023 11:16 AM EDT UROLOGY CONSULT NOTE Reason for Consultation: obstructing stone History of Present Illness: Page Katz is a 72 y.o. year old female being seen for 8mm left ureteral stone. She was seenfor on 08/17/22 with flank pain in which she saw PCP who ordered CT at [facility], given history of LAD stent placed in 06/2023 referred to [facility] for surgical intervention. She had onset of significant pain yesterday and was sent to the ED. She states she began having symptoms at the end of July with LLQ pain which she initially felt was r/t bowel obstructing but imaging showed large stone. She has had kidney stone in the past with Dr. Alonzo s/p left PCNL in 05/2013 for >2cm stone. Workup in the ED consisted of a CT which showeda now obstructing left ureteral stone and a UA that was not infected. Past Medical/Surgical History: Past Medical History: Diagnosis Date Arthritis Blood [...] disease Papillary carcinoma s/p total thyroidectomy; Hypothyroidism Patient Active Problem List Diagnosis Code S/P thyroidectomy E89.0 Thyroid cancer C73 Hypothyroidism E03.9 Complex endometrial hyperplasia with atypia N85.02 Endometrial cancer C54.1 NAFLD (nonalcoholic fatty liver disease) K76.0 Colon cancer C18.9 Depression F32.A Essential hypertension I10 Obesity (BMI 30-39.9) E66.9 Seronegative rheumatoid arthritis M06.00 Vitamin D deficiency E55.9 NSTEMI (non-ST elevated myocardial infarction) I21.4 Left ureteral stone N20.1 Bilateral nephrolithiasis N20.0 Past Surgical History: Procedure Laterality Date CHOLECYSTECTOMY 10/22/2008 Open cholecystectomy DILATION AND CURETTAGE OF UTERUS 04/22/2014 Path showed complex endometrial hyperplasia w/ atypia ILEOSTOMY OR JEJUNOSTOMY 01/04/2006 For Crohn's Disease and colon cancer PRG SOMATOSENSORY TEST, ANY/ALL PER. NERVES, TRUNK OR HEAD 10/13/2011 FACIAL NERVE MONITORING, SETUP performed by RICK CARD at [facility] MAIN OR PRO CYSTOURETHROSCOPY, URETER CATHETER 06/19/2013 CYSTO, RETROGRADE, URETEROPYELOGRAPHY performed by Inessa Alonzo Jr., MD at [facility] MAIN OR PRO ILEOSCOPY THRU STOMA, BIOPSY N/A 12/09/2015 ILEOSCOPY W/ BIOPSY performed by Isael Christianson MD at [facility] ENDOSCOPY PRO PERCUT DILATN RENAL TRACT 06/19/2013 PERCUTANEOUS INTRO GUIDE WIRE TO ACCESS RENAL PELVIS,AND OR URETER, W\DILATION performed by Inessa Alonzo Jr., MD at [facility] OR PRO PERQ NL/PL LITHOTRIPSY COMPLEX >2 CM HEATER INSTALLER LOCATIONS 06/19/2013 NEPHROLITHOTOMY, ([facility]) PERCUTANEOUS, OVER 2CM performed by Inessa Alonzo Jr., MD at [facility] MAIN OR PRO THYROIDECTOMY 10/13/2011 THYROIDECTOMY, TOTAL OR COMPLETE performed by RICK CARD at [facility] MAIN OR PRO TOTAL ABDOM HYSTERECTOMY 05/26/2014 @HYSTERECTOMY, TOTAL ABD., W W/O BSO performed by Carmen Montana MD at [facility] OR PROCTECTOMY 01/04/2006 For Crohn's Disease and colon cancer TOTAL COLECTOMY 01/04/2006 For Crohn's Disease and colon cancer TOTAL KNEE ARTHROPLASTY 2006, 2010 Bilateral knee replacements Social History: Social History Socioeconomic History Marital status: Spouse name: Not on file Number of children: Not on file Years of education: Not on file Highest education level: Not on file Occupational History Not on file Tobacco Use Smoking status: Never Smokeless tobacco: Never Vaping Use Vaping Use: Never used Substance and Sexual Activity Alcohol use: No Drug use: Yes Types: Benzodiazapines Sexual activity: Not on file Other Topics Concern Not on file Social History Narrative Not on file Social Determinants of Health Financial Resource Strain: Not on file Food Insecurity: Not on file Transportation Needs: Not on file Physical Activity: Not on file Intimate Partner Violence: Not At Risk (10/21/2023) DH IPV Inpatient Questions Prevent Contact with Others: no Feels Threatened by Someone: no Feels Unsafe at Home: no Physical Signs of Abuse Present: no Housing Stability: Not on file Family History: Family History Problem Relation Age of Onset Arthritis Mother Arthritis Sister Myocardial Infarction Father 57 Cerebrovascular Accident Father Hypertension Mother Diabetes Paternal Grandmother Ulcerative Colitis Sister Hypertension Sister Brain Tumor Sister Pituitary adenoma Ovarian Cancer Neg Hx Breast Cancer Neg Hx Colorectal Cancer Neg Hx Uterine Cancer Neg Hx Pancreatic Cancer Neg Hx Review of Systems: ROS Medications: No current facility-administered medications on file prior [...] tablet Take 1 tablet by mouth daily. (Patient not taking: Reported on 10/15/2023) 30 tablet 3 nitroGLYcerin (Nitrostat) 0.[address] 1 tablet under the tongue every 5 minutes as needed for Chest pain. 90 tablet 12 rosuvastatin (Crestor) 20 mg tablet Take 1 [...] tablet Take 25 mg by mouth daily. metroNIDAZOLE (METROCREAM) 0.75 % Cream Apply topically as needed. potassium chloride (Klor-Con Sprinkle) 10 mEq ER capsule Take 10 mEq by mouth daily. omeprazole (PriLOSEC) [address] capsule Take 40 mg by mouth daily. adalimumab (Humira,CF, Pen) 40 mg/0.4 mL Pen Injector Kit Inject 0.4 mLs subcutaneously every 14 days. Indications: rheumatoid arthritis 1 kit 5 losartan (COZAAR) 100 mg Tablet Take 100 mg by mouth daily. levothyroxine (SYNTHROID) 125 mcg Tablet Take 125 mcg by mouth daily. 2 days a week Ijcicwithqqjl-Aa-Grun-Minerals (ONE-A-DAY WOMENS FORMULA) 27-0.4 mg Tab Physical Exam: Temp: [36.3 ??C (97.3 ??F)] Heart Rate: -- Resp: -- BP: -- SpO2: -- Heart Rate from SpO2: -- General: No acute distress. Abd: SNTND, minimal stool in stoma appliance Labs: Recent Labs 10/21/23 0950 WBC 13.6* HGB 13.9 PLATELET 319 NA 139 K 3.9 CL 101 CO2 26 BUN 11 CREATININE 0.72 CALCIUM 9.8 Component Value Date/Time SPGRAVITYUA 1.013 09/26/2023 1410 PHUADIP 6.0 09/26/2023 1410 PROTEINUADIP Negative 09/26/2023 1410 GLUCOSEU Negative 09/26/2023 1410 KETONESUA Negative 09/26/2023 1410 UROBILIUADIP Normal 09/26/2023 1410 BLOODUADIP Trace (A) 09/26/2023 1410 NITRATEUA Negative 09/26/2023 1410 LEUKOESTERUA Negative 09/26/2023 1410 WBCUA 4 09/26/2023 1410 BILIRUBINUA Negative 09/26/2023 1410 Microbiology: None Imaging: CT with a ~8mm ureteral stone on the left, now with upstream hydronephrosis when compared to prior. Assessment: Page Katz is a 72 y.o. female with PMH of large stones who presents to the ED with a now obstructing mid left ureteral stone. No signs of infection, preserved kidney function. Recommendations: - NPO for D case stent - Admit to urology Javad Jackson MD Associated attestation - Inessa Alonzo Jr., MD - 10/21/2023 12:37 PM EDT STAFF ADDENDUM: I saw and examined Page Katz with Dr. Jackson , have independently reviewed her CT, and concur with history, exam, impression, and plan as noted and amended. Plan admissin for poorly controlled pain in setting of obstructing 8 mm left ureteral stone. documented in this encounter ED Notes * Madison Singleton RN - 10/21/2023 11:35 AM EDT Transfer via stretcher to the OR. * Ancelmo Gonzales PA - 10/21/2023 8:59 AM EDT ED Provider Note HPI: Page Katz is a 72 y.o. female with a history of CAD, endometrial cancer, colon cancer transferred to the [facility] emergency department nephrolithiasis. Patient states that she has been dealing with intermittent left flank pain since July. The pain became severe last night. She was seen at outside hospital found to have an obstructing left sided 8 mm kidney stone with hydronephrosis and hydroureter. Patient was then transferred to the [facility] emergency department for evaluation by urology. She currently admits to moderate left-sided flank pain. She endorses some mild nausea. She denies any other complaints or concerns. She has not had any fevers or chills. History obtained from the patient and EMS. ROS as per HPI Vitals: ED Triage Vitals BP: n/a Pulse: n/a Resp: n/a Temp: n/a Temp src: n/a SpO2: n/a O2 Device: n/a O2 Flow Rate (L/min): n/a Physical Exam Constitutional: Appears well-developed and well-nourished. No distress. Head: Normocephalic and atraumatic. Neck: Normal range of motion. Cardiovascular: Normal rate Pulmonary/Chest: Effort normal Abdominal: Soft. Exhibits no distension. There is no tenderness. Musculoskeletal: Exhibits no edema or tenderness. Neurological: Alert and oriented Skin: Skin is warm and dry. ED Course: I have reviewed labs and imaging, images and available reports, and they are significant for: Mildly elevated white blood cell count. No signs of LINDA. Patient unable to give a urine sample, butoutside UA is reportedly unremarkable No orders to display Procedures Assessment and Plan: 72 y.o. female with known left nephrolithiasis with acute onset of pain transferred to the emergency department for evaluation by urology. Patient is nontoxic-appearing. Lab work is unremarkable other than mild elevated white blood cell count. Patient was unable to give us urine sample, but outsideUA was reportedly unremarkable. Case was discussed with urology who plans on operative intervention. Patient was in agreement this plan. Did this case involve critical care? No The visit findings, diagnosis, and care plan were discussed with the patient. Ancelmo Gonzales PA 10/21/23 1322 documented in this encounter Miscellaneous Notes * Initial Assessments - Joe Machado RN - 10/22/2023 8:43 AM EDT Office of Care Management Initial Assessment Medical record reviewed. Plan of care and patient status discussed with direct care Registered Nurse and/or Care Team in multidisciplinary rounds. Reason for Hospitalization: they had to take a stone out of my kidney Present on Admission: Kidney stone Hospitalizations Within the Past 30 Days: no previous admission in last 30 days Patient receiving hospital care under Observation status. Admission order reviewed. Health/Prescription Coverage: Primary Insurance: MEDICARE Payor: MEDICARE / Plan: MEDICARE PART A & B / Product Type: *No Product type* / Secondary Insurance: AETNA MEDICARE SUPPLEMENT ONLY if patient has Medicare A&B - Does this patient have secondary insurance?: Yes ; Prescription Coverage: Yes Preferred Pharmacy: [id number] - [place], [place] - [facility] [address] [facility] [address] [facility] [address] [place] [address] - [address] [facility] [address] [facility] [address] [facility] - [place], [place] - [address] [facility] 1000 [facility] [address] [facility] [place] - [place], [place] - 1 [facility] 1 [facility] [address] Advance Care Planning: Attempt Cardiopulmonary Resuscitation - Inpatient Received -Advanced Directive: Yes, on file Who is your DPOA-HC?: Spouse Current Functional Ability: Independent Functional Status Prior to Admission: Independent Home Environment: Others in the home: spouse. Current Living Arrangements: home/apartment/condo. Current DME: none [address] [facility] [id number] Social & Family Supports: Extended Emergency Contact Information Primary Emergency Contact: Lavelle Katz Address: [address] [place] [id number] [facility] Mobile Relation: Spouse Secondary Emergency Contact: [place] [address] [facility] Mobile Relation: Child Current Care Provided by: self Transportation: no concerns Transportation Anticipated: family or friend will provide Assessment: Patient with no apparent RNCM/SW needs at this time. No housing, transportation, insurance, resources concerns identified at this time. Supports in place to achieve a safe post-hospital transition. No identified barriers to accessing necessary care and/or follow-up after discharge. Plan: Patient to d/c to home via family when medically ready. Registered Nurse Engineering Associate / Tool Grinder Operator Surface will continue to follow patient???s progress and remain available if situation changes for coordination of care, psychosocial support and/or discharge planning. Office of Care Management Joe Machado RN Case Manager Pgr: [phone] * Plan of Care - Azalea Stock RN - 10/22/2023 5:53 AM EDT OUTCOME EVALUATION NOTE: NIGHTLY SUMMARY: NAEON. Patient AOx4, VSS on RA. Denies nausea/vomiting, CP, SOB, N/T. Pain controlled w/ scheduled and PRN medications, see SEP. Patient voiding to BR independently. LBM 10/20 per colostomy. Patient resting in between care. No further changes at this time. Will continue to monitor. PLAN MOVING FORWARD: Pain management Mobilization I&O's D/C planning Problem: Adult Inpatient Plan of Care Goal: Plan of Care Review Outcome: Ongoing (Interventions Implemented as Appropriate) Goal: Patient-Specific Goal (Individualized) Outcome: Ongoing (Interventions Implemented as Appropriate) Goal: Absence of Hospital-Acquired Illness or Injury Outcome: Ongoing (Interventions Implemented as Appropriate) Goal: Optimal Comfort and Wellbeing Outcome: Ongoing (Interventions Implemented as Appropriate) Goal: Readiness for Transition of Care Outcome: Ongoing (Interventions Implemented as Appropriate) Problem: Fall Injury Risk Goal: Absence of Fall and Fall-Related Injury Outcome: Ongoing (Interventions Implemented as Appropriate) * Brief Op Note - Inessa Alonzo Jr., MD - 10/21/2023 12:39 PM EDT Brief Operative Note Patient Name: Page Katz : [id number] MR#: [id number] Case Date: 10/21/2023 Surgeon: Surgeon(s) and Role: * Inessa Alonzo Jr., MD - Primary * Javad Jackson MD - Resident - Assisting * Vic Suarez MD - Resident - Assisting Preoperative diagnosis: left ureteral Stone Postoperative diagnosis: same Procedure(s) (LRB): CYSTO, STENT PLACEMENT (WRVU 2.82) (Left) Anesthesia: General Findings: obstructig mid left ureteral stone on retrograde pyelogram. 8 fr 26 cm left ureteral stent placed. Complications: none evident Intake: Intraprocedure Crystalloid Total Intake lactated ringers 200.00 mL Total Intake 200 mL Output Blood Loss 0 mL Total Output 0 mL Net Net Volume 200 mL Transfusion No data found in the last 1 encounters. Output: Estimated Blood Loss: none evident Drains: 8fr 26cm left ureteral stent Specimens removed during surgery: urine for culture Disposition: awakened from anesthesia, extubated and taken to the recovery room in a stable condition, having suffered no apparent untoward event. Condition: doing well without problems Attestation: Case Date: 10/21/2023 I was present and I participated during the entire procedure. (Please see the Surgical Encounter Summary for any Implant and Specimen details pertinent to this patient.) * Op Note - Javad Jackson MD - 10/21/2023 12:01 PM EDT [facility] Operative Note Patient Name: Page Katz : [id number] MR#: [id number] Case Date: 10/21/2023 Surgeon: Surgeon(s) and Role: * Inessa Alonzo Jr., MD - Primary * Javad Jackson MD - Resident - Assisting * Vic Suarez MD - Resident - Assisting Preoperative diagnosis: left ureteral Stone Postoperative diagnosis: same Procedure(s) (LRB): CYSTO, STENT PLACEMENT (WRVU 2.82) (Left) Anesthesia: General Findings: obstructig mid left ureteral stone on retrograde pyelogram. 8 fr 26 cm left ureteral stent placed. Complications: none evident Intake: Intraprocedure Crystalloid Total Intake lactated ringers 200.00 mL Total Intake 200 mL Output Blood Loss 0 mL Total Output 0 mL Net Net Volume 200 mL Transfusion No data found in the last 1 encounters. Output: Estimated Blood Loss: none evident Drains: 8fr 26cm left ureteral stent Specimens removed during surgery: urine for culture Disposition: awakened from anesthesia, extubated and taken to the recovery room in a stable condition, having suffered no apparent untoward event. Condition: doing well without problems (Please see the Surgical Encounter Summary for any Implant and Specimen details pertinent to this patient.) HPI/Surgical Indications: Page Katz is a 72 y.o. year old female being seen for 8mm left ureteral stone. She was seenfor on 08/17/22 with flank pain in which she saw PCP who ordered CT at [facility], given history of LAD stent placed in 06/2023 referred to [facility] for surgical intervention. She had onset of significant pain yesterday and was sent to the ED. She states she began having symptoms at the end of July with LLQ pain which she initially felt was r/t bowel obstructing but imaging showed large stone. She has had kidney stone in the past with Dr. Alonzo s/p left PCNL in 05/2013 for >2cm stone. Workup in the ED consisted of a CT which showeda now obstructing left ureteral stone and a UA that was not infected. Procedure Description: The patient was identified in the pre-operative holding area. Consent was verified. The correct side of the procedure was marked. The patient was taken to the operating room and placed supine on the operating table. General anesthesia was induced. The patient was then moved to the lithotomy position and prepped and draped in the usual sterile fashion. A timeout was performed involving all membersof the OR team confirming the patient's identity and planned procedure. Preoperative antibiotics were administered. A 22 Fr rigid cystoscope was inserted into the bladder. A guide wire was passed into the ureteral orifice without difficulty and visualized on fluoroscopy to be within the renal pelvis. A Pollack catheter was inserted over the guide wire, contrast was instilled, and the renal pelvis was visualized on fluoroscopy to be without filling defects. Stone was seen in the distal ureter. The Pollack cathet er was then removed and a 8 Fr by 26 cm ureteral stent was passed over the wire. The proximal coil was visualized on fluoroscopy to be [...] attestation - Inessa Alonzo Jr., MD - 10/21/2023 1:36 PM EDT Attestation: Case Date: 10/21/2023 I was present and I participated during the entire procedure. INESSA ALONZO JR, MD 10/21/2023 * ED Triage - Patti Blank RN - 10/21/2023 8:56 AM EDT 72 yo F in via ambulance, hospital transfer from [facility] for known kidney stone, here for procedure. Pt has had kidney stone for some time, states symptoms since July. Pt reports some nausea and painat this time. A+Ox4. documented in this encounter Plan of Treatment Upcoming Encounters Date Type Department Care Team (Late st Contact Info) Description 05/15/2024 1:00 PM EDT TH Visit (TeleHealth) Rheumatology at [facility] [place] [address] Pasha Wood MD [facility] [place] [address] documented as of this encounter Procedures Procedure Name Priority Date/Time Associated Diagnosis Comments XR FLUORO NO RAD <1HR - OR USE Routine 10/21/2023 12:15 PM EDT URINE HOLD Routine 10/21/2023 12:03 PM EDT URINE CULTURE Routine 10/21/2023 12:03 PM EDT Cystoscopy, Insert Ureteral Stent ([id number]) 10/21/2023 11:39 AM EDT Stone CYSTO, STENT PLACEMENT Routine 10/21/2023 11:10 AM EDT HEMOGRAM STAT 10/21/2023 9:50 AM EDT DIFFERENTIAL, AUTOMATED STAT 10/21/2023 9:50 AM EDT CBC (WITH DIFF) STAT 10/21/2023 9:50 AM EDT BASIC METABOLIC PANEL STAT 10/21/2023 9:50 AM EDT IMPLANTABLE DEVICES SCAN 10/21/2023 12:00 AM EDT documented in this encounter Results * XR Fluoro No Rad <1Hr - OR Use (10/21/2023 12:15 PM EDT) Narrative Dicom, Auditing User - 10/21/2023 12:29 PM EDT This exam is auto-finalizing. No interpretation was done. Inessa Alonzo Jr., MD IMG FLUORO ORDERAB LES * Urine Hold (10/21/2023 12:03 PM EDT) Hold, Urine Sample in lab. [facility] Urine Urine / Unknown 10/21/2023 1 2:03 PM EDT 10/21/2023 12:34 PM EDT Comment:Bladder urine for cu lture. Inessa Alonzo Jr., MD URINE ORDERABLES Performing Organization Address [facility] Co de Phone Number [facility] [place] [address] * Urine culture Cystoscopic Urine (10/21/2023 12:03 PM EDT) [facility] Urine Culture No growth (Less than 100 cfu/ml). [facility] Cystoscopic Urine 10/21/2023 12:03 PM EDT 10/21/2023 1:09 PM EDT Comment:Bladder urine for cu lture. Narrative Resulting Agency Comment Spec In Lab Inessa Alonzo Jr., MD MICROBIOLOGY - GEN ERAL ORDERABLES Performing Organization Address [facility] Co de Phone Number [facility] [place] [address] * (ABNORMAL) Differential, Automated (10/21/2023 9:50 AM EDT) Pathologist [facility] Neutrophil % 87.2 % [facility] Neutrophil Absolute 11.81(H) 1.70 - 6.10 x10(3)/mc L [facility] Lymph % 6.5 % [facility] Lymphocytes Abs 0.9 0.9 - 3.2 x10(3)/mc L [facility] Monocyte % 5.8 % [facility] Monocyte Abs 0.8 0.3 - 0.9 x10(3)/mc L [facility] Eos % 0.0 % [facility] Eosinophils Abs 0.0 0.0 - 0.4 x10(3)/mc L [facility] Basophil % 0.1 % [facility] Baso Absolute 0.0 0.0 - 0.1 x10(3)/[facility] Immature Gran % 0.40 % [facility] Comment: Immature granulocytes(IG's)percentage and absolute count will include metamyelocytes, myelocytes, and promyelocytes. Blood smears from CBCs yielding IG's will be scanned manually for concordance. If this scan disagrees with the automated IG or if promyelocytes are noted, a manual differential will be performed. Immature Gran Absolute 0.06(H) 0.00 - 0.04 x10(3)/[facility] Blood 10/21/2023 9:50 AM EDT 10/21/2023 9:59 AM EDT Narrative Resulting Agency Comment Spec In Lab Ancelmo MALONEY HEMATOLOGY ORDERABLE S Performing Organization Address City/State/[facility] Co de Phone Number [facility] [place] [address] * (ABNORMAL) Hemogram (10/21/2023 9:50 AM EDT) White Blood Cell 13.6(H) 4.0 - 9.5 x10(3)/[facility] Red Blood Cell 4.37 4.00 - 5.21 x10(6)/[facility] Hemoglobin 13.9 11.7 - 15.5 g/dL [facility] Hematocrit 41.0 35.7 - 45.8 % [facility] Mean Cell Volume 93.8 82.6 - 94.4 fL [facility] Mean Cell Hemoglobin 31.8 27.1 - 32.0 pg [facility] Mean Cell Hemoglobin Concentration 33.9 31.7 - 35.0 g/dL [facility] Platelet 319 145 - 357 x10(3)/[facility] RDW Standard Deviation 50.5(H) 37.0 - 46.0 fL [facility] RDW coefficient of variation 14.5(H) 11.5 - 14.1 % [facility] Mean Platelet Volume 8.8 7.6 - 12.9 fL [facility] NRBC% auto 0.0 % [facility] NRBC Absolute 0.000 0.000 - 0.000 x10(3)/mc L [facility] Blood 10/21/2023 9:50 AM EDT 10/21/2023 9:59 AM EDT Narrative Resulting Agency Comment Spec In Lab Ancelmo MALONEY HEMATOLOGY ORDERABLE S [facility] [place] [address] * Basic Metabolic Panel (non-fasting) (10/21/2023 9:50 AM EDT) Glucose 141 65 - 199 mg/dL [facility] Comment:Diabetes: >=200 mg/d L plus symptoms Blood Urea Nitrogen 11 8 - 18 mg/dL [facility] Creatinine 0.72 0.70 - 1.20 mg/dL [facility] Sodium 139 135 - 145 mmol/L [facility] Potassium 3.9 3.5 - 5.0 mmol/L [facility] Comment: Please note: ??Patients with WBC >100,000 may have falsely elevated Potassium levels. ??For accurate Potassium quantification in these patients send serum separator tube (gold top) for subsequent determinations. ??Contact the Clinical Chemistry Laboratory if there are any questions. Chloride 101 98 - 107 mmol/L [facility] Carbon Dioxide 26 22 - 31 mmol/L [facility] Anion Gap 12 5 - 15 mmol/L [facility] Calcium 9.8 8.5 - 10.5 mg/dL [facility] Est Glomerular Filtration Rate 89 >=60 mL/min/1. 73 m?? [facility] Comment: This patient's estimated GFR [...] and symptoms in addition to eGFR. Blood 10/21/2023 9:50 AM EDT 10/21/2023 9:59 AM EDT Narrative Resulting Agency Comment Spec In Lab Chi Caal MD CHEMISTRY ORDERABLES [facility] [place] [address] * SCAN DOC: IMPLANTABLE DEVICES (10/21/2023 12:00 AM EDT) Narrative 10/21/2023 12:00 AM EDT Ordered by an unspecified provider. Scanning Provider MEDIA MGR SCAN EXT O RDR/RSLT documented in this encounter Visit Diagnoses Not on filedocumented in this encounter Admitting Diagnoses Diagnosis Kidney stone Calculus of kidney documented in this encounter Administered Medications Inactive Administered Medications - up to 3 most recent administrations Medication Order MAR Action Action Date Dose Rate Site acetaminophen (Ofirmev) (1,000 mg/100 mL) infusion 1,000 mg 1,000 mg, Intravenous, at 400 mL/hr, Administer over 15 Minutes, EVERY 8 HOURS SCHEDULED, 3 doses, First dose on Sun10/21/23 at 1400, Last dose on Sun10/22/23 at 0600, Maximum dose of acetaminophen is 4,000 mg from all sources in 24 hours. When ordered for pain, acetaminophen should be given even when other ordered pain medications are indicated., PACU Recovery, Routine, Is ketorolac (Toradol) IV contraindicated? Yes, Can this patient tolerate oral medications or suppositories? No Given 10/21/2023 1:59 PM EDT 1,000 mg 400 mL/hr acetaminophen (Tylenol) tablet 975 mg 975 mg, Oral, EVERY 6 HOURS, First dose on Sun10/21/23 at 1645, Until Discontinued, Maximum dose of acetaminophen is 4,000 mg from all sources in 24 hours. When ordered for pain, acetaminophen should be given even when other ordered pain medications are indicated., Routine Given 10/22/2023 8:06 AM EDT 975 mg Given 10/21/2023 8:25 PM EDT 975 mg amLODIPine (Norvasc) tablet 5 mg 5 mg, Oral, 2 TIMES DAILY, First dose on Sun10/21/23 at 1415, Until Discontinued, Routine Given 10/22/2023 8:07 AM EDT 5 mg Given 10/21/2023 8:26 PM EDT 5 mg Given 10/21/2023 3:09 PM EDT 5 mg aspirin chewable tablet 81 mg 81 mg, Oral, DAILY, First dose on Sun10/21/23 at 1645, Until Discontinued, Routine Given 10/22/2023 8:07 AM EDT 81 mg Given 10/21/2023 5:02 PM EDT 81 mg clopidogreL (Plavix) tablet 75 mg 75 mg, Oral, DAILY, First dose on 10/21/23 at 1415, Until Discontinued, Routine Given 10/22/2023 8:06 AM EDT 75 mg Given 10/21/2023 3:17 PM EDT 75 mg docusate sodium (Colace) capsule 100 mg 100 mg, Oral, 2 TIMES DAILY, First dose on Sun10/21/23 at 2100, Until Discontinued, Routine Given 10/21/2023 8:25 PM EDT 100 mg hydroCHLOROthiazide (HydroDiuril) tablet 25 mg 25 mg, Oral, DAILY, First dose on Sun10/21/23 at 1415, Until Discontinued, Routine Given 10/22/2023 8:07 AM EDT 25 mg Given 10/21/2023 3:34 PM EDT 25 mg HYDROmorphone (Dilaudid) (0.5 mg/0.5 mL) injection syringe 0.5 mg 0.5 mg, Intravenous, EVERY 4 HOURS PRN, Starting on 10/21/23 at 0905, Until Sun10/22/23 at 1253, Pain, Routine Given 10/21/2023 9:49 AM EDT 0.5 mg iohexoL (Omnipaque) (300 mg/mL) solution PRN, Starting on 10/21/23 at 1201, Until 10/22/23 at 1253, Intra-Operative (Intra-Procedure), Routine Given 10/21/2023 12:01 PM EDT 10 mLs 19- Surgical Site levothyroxine (Synthroid) tablet 125 mcg 125 mcg, Oral, DAILY, First dose on 10/21/23 at 1645, Until Discontinued, Routine Given 10/22/2023 8:06 AM EDT 125 mcg metoprolol succinate XL (Toprol-XL) tablet 50 mg 50 mg, Oral, DAILY, First dose on 10/21/23 at 1415, Until Discontinued, DO NOT CRUSH OR OPEN, Routine Given 10/22/2023 8:07 AM EDT 50 mg ondansetron (pf) (Zofran) (2 mg/mL) injection 4 mg 4 mg, Intravenous, EVERY 8 HOURS PRN, Starting on 10/21/23 at 1603, Until Sun10/22/23 at 1253, Nausea, May repeat times one in 30 minutes if ineffective. If multiple antiemetics are ordered, use ondansetron first., Recovery (Recovery-Hospital Unit) ondansetron (Zofran) tablet 4 mg 4 mg, Oral, EVERY 8 HOURS PRN, Starting on 10/21/23 at 1603, Until 10/22/23 at 1253, Nausea, Vomiting, If multiple antiemetics are ordered, use ondansetron first. PO Preferred. If patient unable to take PO, may give IV if ordered. May repeat times one in 45 minutes if ineffective., Recovery (Recovery-Hospital Unit), Routine oxyCODONE (Roxicodone) tablet 10 mg 10 mg, Oral, EVERY 4 HOURS PRN, Starting on 10/21/23 at 1554, Until 10/22/23 at 1253, Pain, severe pain (7-10), Routine oxyCODONE (Roxicodone) tablet 5 mg 5 mg, Oral, EVERY 4 HOURS PRN, Starting on 10/21/23 at 1554, Until 10/22/23 at 1253, Pain, moderate pain (4-6), Routine phenazopyridine (Pyridium) tablet 200 mg 200 mg, Oral, 3 TIMES DAILY AFTER MEALS, First dose on Sun10/21/23 at 1900, Until Discontinued Given 10/22/2023 8:07 AM EDT 200 mg Given 10/21/2023 9:35 PM EDT 200 mg predniSONE (Deltasone) tablet 2 mg 2 mg, Oral, DAILY, First dose on 10/21/23 at 1415, Until Discontinued, Routine Given 10/22/2023 8:07 AM EDT 2 mg Given 10/21/2023 3:33 PM EDT 2 mg rosuvastatin (Crestor) tablet 20 mg 20 mg, Oral, EVERY EVENING, First dose on Sun10/21/23 at 1700, Until Discontinued, Routine Given 10/21/2023 5:02 PM EDT 20 mg sodium chloride 0.9 % (flush) (BD PosiFlush Normal Saline 0.9) flush 5 mL 5 mL, Intravenous, 2 TIMES DAILY, First dose on Sun10/21/23 at 2100, Until Discontinued, Routine Given 10/21/2023 8:27 PM EDT 5 mLs sodium chloride 0.9 % (flush) (BD PosiFlush Normal Saline 0.9) flush 5-20 mL 5-20 mL, Intravenous, EVERY 1 MIN PRN, Starting on Sun10/21/23 at 1554, Until 10/22/23 at 1253, flush, Flush pertains to all indwelling lines. Flush per protocol found in the job aid using the link provided on this medication record., Routine Given 10/21/2023 8:26 PM EDT 5 mLs sodium chloride 0.9% infusion 100 mL/hr, Intravenous, CONTINUOUS, Starting on 10/21/23 at 0914, Until Sun10/22/23 at 0546 New Bag 10/21/2023 9:48 AM EDT 100 mL/hr 100 mL/hr sodium chloride 0.9% infusion 1,000 mL, at 100 mL/hr, Intravenous, CONTINUOUS, Starting on 10/21/23 at 1330, Until Sun10/22/23 at 0630 New Bag 10/21/2023 1:30 PM EDT 1,000 mLs 100 m L/hr documented in this encounter Active and Recently Administered Medications Times are shown in EDT. Scheduled Medication Order 10/20/2023 10/21/2023 10/22/2023 acetaminophen (Ofirmev) (1,000 mg/100 mL) infusion 1,000 mg (CANCELED) 1,000 mg, Intravenous, at 400 mL/hr, Administer over 15 Minutes, EVERY 8 HOURS SCHEDULED, 3 doses, First dose on 10/21/23 at 1400, Last dose on Sun10/22/23 at 0600, Maximum dose of acetaminophen is 4,000 mg from all sources in 24 hours. When ordered for pain, acetaminophen should be given even when other ordered pain medications are indicated., PACU Recovery, Routine, Is ketorolac (Toradol) IV contraindicated? Yes, Can this patient tolerate oral medications or suppositories? No 1359 (Given - Provider: Page Darby RN) acetaminophen (Tylenol) tablet 975 mg 975 mg, Oral, EVERY 6 HOURS, First dose on 10/21/23 at 1645, Until Discontinued, Maximum dose of acetaminophen is 4,000 mg from all sources in 24 hours. When ordered for pain, acetaminophen should be given even when other ordered pain medications are indicated., Routine 2024 (Given - Provider: Azalea Stock RN) 0200 (Not Given - Provider: Azalea Stock RN - Reason: Patient/family refused)0806 (Given - Provider: Katina Dickinson RN) amLODIPine (Norvasc) tablet 5 mg 5 mg, Oral, 2 TIMES DAILY, First dose on 10/21/23 at 1415, Until Discontinued, Routine 1509 (Given - Provider: Page Darby RN)2025 (Given - Provider: Azalea Stock RN) 0807 (Given - Provider: Katina Dickinson RN) aspirin chewable tablet 81 mg 81 mg, Oral, DAILY, First dose on 10/21/23 at 1645, Until Discontinued, Routine 1702 (Given - Provider: Katina Dickinson RN) 0807 (Given - Provider: Katina Dickinson RN) clopidogreL (Plavix) tablet 75 mg 75 mg, Oral, DAILY, First dose on 10/21/23 at 1415, Until Discontinued, Routine 1517 (Given - Provider: Page Darby RN) 0806 (Given - Provider: Katina Dickinson RN) docusate sodium (Colace) capsule 100 mg 100 mg, Oral, 2 TIMES DAILY, First dose on 10/21/23 at 2100, Until Discontinued, Routine 202 (Given - Provider: Azalea Stock RN) 0806 (Not Given - Provider: Katina Dickinson RN - Reason: Order parameters not met) hydroCHLOROthiazide (HydroDiuril) tablet 25 mg 25 mg, Oral, DAILY, First dose on 10/21/23 at 1415, Until Discontinued, Routine 1415 (Not Given - Provider: Page Darby RN - Reason: Medication not available)1534 (Given - Provider: Page Darby RN) 0807 (Given - Provider: Katina Dickinson RN) levothyroxine (Synthroid) tablet 125 mcg 125 mcg, Oral, DAILY, First dose on 10/21/23 at 1645, Until Discontinued, Routine 1620 (Not Given - Provider: Katina Dickinson RN - Reason: See comment - Comment: pt reports taking this AM) 0806 (Given - Provider: Katina Dickinson RN) metoprolol succinate XL (Toprol-XL) tablet 25 mg 25 mg, Oral, DAILY, First dose on 10/21/23 at 1415, Until Discontinued, DO NOT CRUSH OR OPEN, Routine 1415 (Not Given - Provider: Page Darby RN - Reason: Per MD Order - Comment: recent change from 25 to 50 mg per day per patient) 0810 (Not Given - Provider: Katina Dickinson RN - Reason: See comment - Comment: pt reports taking only 50 mg, see other administration) metoprolol succinate XL (Toprol-XL) tablet 50 mg 50 mg, Oral, DAILY, First dose on 10/21/23 at 1415, Until Discontinued, DO NOT CRUSH OR OPEN, Routine 1415 (Not Given - Provider: Page Darby RN - Reason: See comment - Comment: pt takes at night) 0807 (Given - Provider: Katina Dickinson RN) phenazopyridine (Pyridium) tablet 200 mg 200 mg, Oral, 3 TIMES DAILY AFTER MEALS, First dose on 10/21/23 at 1900, Until Discontinued 2134 (Given - Provider: Azalea Stock RN) 0807 (Given - Provider: Katina Dickinson, JOSEPH) predniSONE (Deltasone) tablet 2 mg 2 mg, Oral, DAILY, First dose on 10/21/23 at 1415, Until Discontinued, Routine 1415 (Not Given - Provider: Page Darby, JOSEPH - Reason: Medication not available)1533 (Given - Provider: Page Darby RN) 0807 (Given - Provider: Katina Dickinson, JOSEPH) rosuvastatin (Crestor) tablet 20 mg 20 mg, Oral, EVERY EVENING, First dose on 10/21/23 at 1700, Until Discontinued, Routine 170 (Given - Provider: Katina Dickinson RN) sodium chloride 0.9 % (flush) (BD PosiFlush Normal Saline 0.9) flush 5 mL 5 mL, Intravenous, 2 TIMES DAILY, First dose on 10/21/23 at 2100, Until Discontinued, Routine 2026 (Given - Provider: Azalea Stock RN) 0846 (Not Given - Provider: Katina Dickinson RN - Reason: Order parameters not met) Continuous Medication Order 10/20/2023 10/21/2023 10/22/2023 sodium chloride 0.9% infusion (CANCELED) 100 mL/hr, Intravenous, CONTINUOUS, Starting on 10/21/23 at 0914, Until 10/22/23 at 0546 0948 (New Bag - Provider: Tanya Singleton RN)1138 (SEP Hold - Provider: Admin Adt - Reason: Transfer to a Procedural area)1341 (Not Given - Provider: Page Darby RN - Reason: Entered in Error)1553 (MAR Unhold - Provider: Admin Adt) sodium chloride 0.9% infusion (CANCELED) 1,000 mL, at 100 mL/hr, Intravenous, CONTINUOUS, Starting on 10/21/23 at 1330, Until 10/22/23 at 0630 1330 (New Bag - Provider: Page Darby, JOSEPH) PRN Medication Order 10/20/2023 10/21/2023 10/22/2023 ALPRAZolam (Xanax) tablet 0.25 mg 0.25 mg, Oral, NIGHTLY PRN, Starting on Sun10/21/23 at 1554, Until Sun10/22/23 at 1253, Anxiety, Routine bisacodyL (Dulcolax) suppository 10 mg 10 mg, Rectal, DAILY PRN, Starting on Sun10/21/23 at 1554, Until Sun10/22/23 at 1253, Constipation, Administer if needed per patient's routine or if no bowel movement within 48 hours to achieve: (1) One bowel movement at least every 48 hours, AND (2) Without straining. - If multiple PRN bowel medications ordered, start with magnesium hydroxide, then bisacodyL. - Multiple medications may be given concomitantly for constipation., Routine HYDROmorphone (Dilaudid) (0.5 mg/0.5 mL) injection syringe 0.5 mg 0.5 mg, Intravenous, EVERY 4 HOURS PRN, Starting on Sun10/21/23 at 0905, Until Sun10/22/23 at 1253, Pain, Routine 0949 (Given - Provider: Madison Singleton RN)1138 (SEP Hold - Provider: Admin Adt - Reason: Transfer to a Procedural area)1553 (SEP Unhold - Provider: Admin Adt) iohexoL (Omnipaque) (300 mg/mL) solution (CANCELED) PRN, Starting on Sun10/21/23 at 1201, Until Sun10/22/23 at 1253, Intra-Operative (Intra-Procedure), Routine 1201 (Given - Provider: Masood Alonzo Jr., MD - Comment: Intra-op.) lidocaine (Xylocaine) 1% (10 mg/mL) injection 3 mg 3 mg (0.3 mL), Subcutaneous, ONCE PRN, 1 dose, Starting on Sun10/21/23 at 1554, Until Sun10/22/23 at 1253, for discomfort with PIV insertion, Routine ondansetron (pf) (Zofran) (2 mg/mL) injection 4 mg(Linked Group 1) 4 mg, Intravenous, EVERY 8 HOURS PRN, Starting on Sun10/21/23 at 1603, Until Sun10/22/23 at 1253, Nausea, May repeat times one in 30 minutes if ineffective. If multiple antiemetics are ordered, use ondansetron first., Recovery (Recovery-Hospital Unit) ondansetron (Zofran) tablet 4 mg(Linked Group 1) 4 mg, Oral, EVERY 8 HOURS PRN, Starting on 10/21/23 at 1603, Until 10/22/23 at 1253, Nausea, Vomiting, If multiple antiemetics are ordered, use ondansetron first. PO Preferred. If patient unable to take PO, may give IV if ordered. May repeat times one in 45 minutes if ineffective., Recovery (Recovery-Hospital Unit), Routine oxyCODONE (Roxicodone) tablet 10 mg(Linked Group 2) 10 mg, Oral, EVERY 4 HOURS PRN, Starting on 10/21/23 at 1554, Until 10/22/23 at 1253, Pain, severe pain (7-10), Routine oxyCODONE (Roxicodone) tablet 5 mg(Linked Group 2) 5 mg, Oral, EVERY 4 HOURS PRN, Starting on 10/21/23 at 1554, Until 10/22/23 at 1253, Pain, moderate pain (4-6), Routine sodium chloride 0.9 % (flush) (BD PosiFlush Normal Saline 0.9) flush 5-20 mL 5-20 mL, Intravenous, EVERY 1 MIN PRN, Starting on 10/21/23 at 1554, Until 10/22/23 at 1253, flush, Flush pertains to all indwelling lines. Flush per protocol found in the job aid using the link provided on this medication record., Routine 2025 (Given - Provider: Azalea Stock RN) Linked Groups Order Group 1: ondansetron (Zofran) tablet 4 mgJump to med 4 mg, Oral, EVERY 8 HOURS PRN, Starting on 10/21/23 at 1603, Until 10/22/23 at 1253, Nausea, Vomiting, If multiple antiemetics are ordered, use ondansetron first. PO Preferred. If patient unable to take PO, may give IV if ordered. May repeat times one in 45 minutes if ineffective., Recovery (Recovery-Hospital Unit), Routine Or ondansetron (pf) (Zofran) (2 mg/mL) injection 4 mgJump to med 4 mg, Intravenous, EVERY 8 HOURS PRN, Starting on 10/21/23 at 1603, Until 10/22/23 at 1253, Nausea, May repeat times one in 30 minutes if ineffective. If multiple antiemetics are ordered, use ondansetron first., Recovery (Recovery-Hospital Unit) Group 2: oxyCODONE (Roxicodone) tablet 5 mgJump to med 5 mg, Oral, EVERY 4 HOURS PRN, Starting on 10/21/23 at 1554, Until 10/22/23 at 1253, Pain, moderate pain (4-6), Routine Or oxyCODONE (Roxicodone) tablet 10 mgJump to med 10 mg, Oral, EVERY 4 HOURS PRN, Starting on 10/21/23 at 1554, Until 10/22/23 at 1253, Pain, severe pain (7-10), Routine documented in this encounter Care Teams Cutter Down Relationship Specialty Start Date End Date Latha Aguirre MD [address] [place] [id number] PCP - General Family Medicine 06/28/23 documented as of this encounter
--- OUTSIDE RECORDS SUMMARY | 2024-03-27 20:52 | XMS_ITS | Encounter Summary ---
[place] [address] Care Team Providers Care Business Employment Specialist Name Role Phone Latha Aguirre MD Primary Care Provider [phone] Reason for Referral * Consultation (Routine) - Authorized Specialty Diagnoses / Procedures Referred By Justen javier Referred To Contact Gastroenterology Diagnoses Crohn's disease without complication, unspecified gastrointestinal tract location Ileostomy status Crohn's Latha Aguirre MD [address] [place] [address] [facility] [address] [place] [phone] Referral ID Status Reason Start Date Expiration Date Visits Requested Visits Authorized [id number] Authorized Consult, Test & Treat PCP Updated and/or Approved 08/21/2023 08/20/2024 6 6 Encounter Details Date Type Department Care Team (Late st Contact Info) Description 08/21/2023 Transcribe Orders eDH Incoming Referrals [phone] Latha Aguirre MD [email or web address] [place], [place] [id number] Crohn's disease without complication, unspecified gastrointestinal tract location; Ileostomy status Social History Tobacco Use Types Packs/Day Years Used Date Smoking Tobacco: Never Smokeless Tobacco: Never Alcohol Use Standard Drinks/Week Comments No 0 (1 standard drink = 0.6 oz pur e alcohol) [facility] Inpatient Questions Answer Date Recorded Does Anyone [...] PM EDT TH Visit (TeleHealth) [place] [address] Pasha Wood MD [facility] [place] [address] Scheduled Referrals Name Type Priority Associated Diagnoses Orde r Schedule Referral to Gastroenterology Outpatient Referral Routine Crohn's disease without complication, unspecified gastrointestinal tract location Ileostomy status Ordered: 08/21/2023 documented as of this encounter Visit Diagnoses Diagnosis Crohn's disease without complication, unspecified gastrointestinal tract location Ileostomy status documented in this encounter Care Teams Business Employment Specialist Relationship Specialty Start Date End Date Latha Aguirre MD [address] [place] [id number] PCP - General Family Medicine 06/28/23 documented as of this encounter
--- OUTSIDE RECORDS SUMMARY | 2024-03-27 20:52 | XMS_ITS | Encounter Summary ---
[place] [address] Care Team Providers Care Communications Professor Name Role Phone Latha Aguirre MD Primary Care Provider Reason for Referral * Diagnostic Test (Routine) - Closed Specialty Diagnoses / Procedures Referred By Contac t Referred To Contact Radiology Diagnoses Left ureteral stone Procedures CT Abdomen & Pelvis wo Contrast Shakira Gaines APRN [facility] [place] [address] [facility] [place] [address] Referral ID Status Reason Start Date Expiration Date V isits Requested Visits Authorized [id number] Closed Specialty Service Requested 09/26/2023 03/26/2025 1 1 Reason for Visit * Diagnostic Test (Routine) - Closed Specialty Diagnoses / Procedures Referred By Contac t Referred To Contact Radiology Diagnoses Left ureteral stone Procedures CT Abdomen & Pelvis wo Contrast Shakira Gaines APRN [facility] [address] [place] [address] [facility] [place] [address] Referral ID Status Reason Start Date Expiration Date V isits Requested Visits Authorized [id number] Closed Specialty Service Requested 09/26/2023 03/26/2025 1 1 Encounter Details Date Type Department Care Team (Latest Contact Info) Description 10/15/2023 9:20 AM EDT - 10/15/2023 11:59 PM EDT Hospital Encounter CT Scan at [facility] [place] [address] Shakira Gaines APRN [facility] [place] [address] Left ureteral stone Discharge Disposition: Home Social History Tobacco Use Types Packs/Day Years Used Date Smoking Tobacco: Never Smokeless Tobacco: Never Alcohol Use Standard Drinks/Week Comments No 0 (1 standard drink = 0.6 oz pur e alcohol) [facility] Inpatient Questions Answer Date Recorded Does [...] Sig Dispensed Refills Start Date End Date metoprolol succinate XL (Toprol-XL) 50 mg ER [...] by mouth daily. 2 days a week Dcyzitkqbqsop-Kj-Hzo n-Minerals (ONE-A-DAY WOMENS FORMULA) 27-0.4 mg Tab [...] daily. 11/01/2023 documented as of this encounter Plan of Treatment Upcoming Encounters Date Type Department Care Team (Late st Contact Info) Description 05/15/2024 1:00 PM EDT TH Visit (TeleHealth) [place] [address] Pasha Wood MD [facility] [place] [address] documented as of this encounter Procedures Procedure Name Priority Date/Time Associated Diagnosis Comments CT ABDOMEN AND PELVIS WO CONTRAST Routine 10/15/2023 9:54 AM EDT Left ureteral stone documented in this encounter Results * CT [...] who have questions please contact the health home care manager that requested your imaging first. ? Electronically signed by: YENIFER DOW MD, [facility] ([phone]), at 10/15/2023 1:11 PM Narrative 10/15/2023 1:11 [...] Lumbar degenerative disc disease. Procedure Note Yenifer Dow MD - 10/15/2023 EXAMINATION: CT ABDOMEN AND [...] patients who have questions please contactthe health home care manager that requested your imaging first. Electronically signed by: YENIFER DOW MD, [facility]([phone]), at 10/15/2023 1:11 PM Shakira Gaines APRN IMG CT ORDERABLES documented in this encounter Visit Diagnoses Diagnosis Left ureteral stone documented in this encounter Care Teams Communications Professor Relationship Specialty Start Date End Date Latha Aguirre MD [address] [place] [address] [place] [address] PCP - General Family Medicine 06/28/23 documented as of this encounter
--- OUTSIDE RECORDS SUMMARY | 2024-03-27 20:52 | XMS_ITS | Encounter Summary ---
Author Organization [facility] [place] [address] Care Team Providers Care Assembler Radio And Electrical Name Role Phone Latha Aguirre MD Primary Care Provider [phone] Reason for Visit * Reason Comments Hospital Transfer Flank Pain Left- known kidney s tone * Auth/Cert (Routine) Specialty Diagnoses / Procedures Referred By Contac t Referred To Contact Diagnoses Kidney stone obstructimg stone Inessa Alonzo Jr., MD [facility] [place] [address] [facility] Referral ID Status Reason Start Date Expiration Date Visits Re quested Visits Authorized [id number] 1 1 Encounter Details Date Type Department Care Team (Late st Contact Info) Description 10/21/2023 8:54 AM EDT - 10/22/2023 10:53 AM EDT Emergency Surgical Unit Level 4 [place] [address] Inessa Alonzo Jr., MD [facility] [place] [address] Nephrolithiasis Discharge Disposition: Home Social History Tobacco Use Types Packs/Day Years Used Date Smoking Tobacco: Never Smokeless Tobacco: Never Alcohol Use Standard Drinks/Week Comments No 0 (1 standard drink = 0.6 oz pur e alcohol) [facility] Utilities Answer Date Recorded In [...] place to sleep or slept in a mcfp (including now)? No 10/22/2023 DH IPV Inpatient [...] Sign Reading Time Taken Comments Blood Pressure 164/83 10/22/2023 9:29 AM EDT Pulse 75 10/21/2023 2:45 PM EDT Temperature 36.8 ??C (98.2 ??F) 10/22/2023 7:38 AM ED T Respiratory Rate 18 10/22/2023 7:38 AM EDT Oxygen Saturation 95% 10/22/2023 9:29 AM EDT Inhaled Oxygen Concentration - - Weight 92.1 kg (203 lb) 10/21/2023 3:58 PM EDT Height 157.5 cm (5' 2) 10/21/2023 3:58 PM EDT Body Mass Index 37.13 10/21/2023 3:58 PM EDT documented in this encounter Discharge Summaries * Javad Jackson MD - 10/22/2023 8:02 AM EDT Images from the original note were not included. Discharge Summary Patient Name: Page Katz Patient Age: 72 y.o. Language: Honduran Race: White Ethnicity: Not nor Admit date: [...] she saw PCP who ordered CT at [facility], given history of LAD stent placed in 06/2023 referred to [facility] for surgical intervention. She had onset of [...] infected. Hospital Course: Patient was admitted to [facility] via the ED and underwent the above [...] Diagnosis: Authorizing Provider: Chi Caal MD, Inessa M Cheri Jr., MD Discharge Conditions/Prognosis: Good Discharge to: [...] Womens Formula 27-0.4 mg Tablet Generic drug: Aruhqqnoubwea-Sv-Ibvk-Minerals Refills: 0 potassium chloride 10 mEq ER [...] 1:30 PM Pasha Wood MD Rheumatology at [facility] Arrive at: [facility] [phone] You will return for Ureteroscopy in 2 [...] 1:30 PM Pasha Wood MD Rheumatology at [facility] Arrive at: [facility] [phone] Follow-Up: Future Appointments Date Time Provider Department Center 12/26/2023 1:30 PM Pasha Wood MD [facility] RHEUM [facility] Primary Care Provider: Latha Aguirre MD [phone] Follow-up Recommendations for Providers: None Call your [...] was managed by the Urology Team at [facility]. If you have any questions or concerns, please feel free to contact us. Provider Contact Information: Urology Clinic: [facility] (after business hours): documented in this encounter [...] 1:30 PM Pasha Wood MD Rheumatology at [facility] Arrive at: [facility] [phone] You will return for Ureteroscopy in 2 [...] by mouth daily. 2 days a week Kvuwwmxqgeeyl-Jm-Jmu n-Minerals (ONE-A-DAY WOMENS FORMULA) 27-0.4 mg Tab [...] ADMISSION/TRANSFER NOTE Transfer from: PACU Transfer to: [facility] Room 456A Time of transfer: 1552 Vitals: [...] carmichael within reach. Family at bedside. Katina Dickinson, RN * Bert Guardado IV, - 10/21/2023 [...] she saw PCP who ordered CT at [facility], given history of LAD stent placed in 06/2023 referred to [facility] for surgical intervention. She had onset of [...] MONITORING, SETUP performed by RICK CARD at [facility] MAIN OR PRO CYSTOURETHROSCOPY, URETER CATHETER 06/19/2013 CYSTO, RETROGRADE, URETEROPYELOGRAPHY performed by Inessa Alonzo Jr., MD at [facility] MAIN OR PRO ILEOSCOPY THRU STOMA, BIOPSY N/A 12/09/2015 ILEOSCOPY W/ BIOPSY performed by Isael Christianson MD at [facility] ENDOSCOPY PRO PERCUT DILATN RENAL TRACT 06/19/2013 PERCUTANEOUS INTRO GUIDE WIRE TO ACCESS RENAL PELVIS,AND OR URETER, W\DILATION performed by Inessa Alonzo Jr., MD at [facility] MAIN OR PRO PERQ NL/PL LITHOTRIPSY COMPLEX >2 CM CALENDER FEEDER LOCATIONS 06/19/2013 NEPHROLITHOTOMY, ([facility]) PERCUTANEOUS, OVER 2CM performed by Inessa Alonzo Jr., MD at [facility] MAIN OR PRO THYROIDECTOMY 10/13/2011 THYROIDECTOMY, TOTAL OR COMPLETE performed by RICK CARD at [facility] MAIN OR PRO TOTAL ABDOM HYSTERECTOMY 05/26/2014 @HYSTERECTOMY, TOTAL ABD., W W/O BSO performed by Carmen Montana MD at [facility] OR PROCTECTOMY 01/04/2006 For Crohn's Disease and [...] Intimate Partner Violence: Not At Risk (10/21/2023) IPV Inpatient Questions Prevent Contact with Others: [...] by mouth daily. 2 days a week Qypmcdixaigrn-Yk-Kjut-Minerals (ONE-A-DAY WOMENS FORMULA) 27-0.4 mg Tab Physical [...] endometrial cancer, colon cancer transferred to the [facility] emergency department nephrolithiasis. Patient states that she has been dealing with intermittent left flank pain since July. The pain became severe last night. She was seen at outside hospital found to have an obstructing left sided 8 mm kidney stone with hydronephrosis and hydroureter. Patient was then transferred to the [facility] emergency department for evaluation by urology. [...] Yes ; Prescription Coverage: Yes Preferred Pharmacy: [id number] - [place], [place] - [address] [facility] [address] [facility] [address] [facility] [address] [place] [address] - [address] [facility] [address] [facility] [address] [facility] - [place], [place] - [address] [facility] [address] [facility] [address] [place] - [place], [place] - [address] [facility] [address] [facility] [address] Advance Care Planning: Attempt Cardiopulmonary Resuscitation - Inpatient Received -Advanced Directive: Yes, on file Who is your DPOA-HC?: Spouse Current Functional Ability: Independent Functional Status Prior to Admission: Independent Home Environment: Others in the home: spouse. Current Living Arrangements: home/apartment/condo. Current DME: none [address] [facility] [address] Social & Family Supports: Extended Emergency Contact Information Primary Emergency Contact: Lavelle Katz Address: [address] [place] [id number] [facility] Mobile Relation: Spouse Secondary Emergency Contact: [place] [address] [facility] Mobile Relation: Child Current Care Provided by: [...] via family when medically ready. Registered Nurse Geospatial Information Technologist / Pulper Operator will continue to follow patient???s progress and [...] Operative Note Patient Name: Page Katz : [id number] MR#: [id number] Case Date: 10/21/2023 Surgeon: Surgeon(s) and Role: [...] Jackson MD - 10/21/2023 12:01 PM EDT [facility] Operative Note Patient Name: Page Katz : [id number] MR#: [id number] Case Date: 10/21/2023 Surgeon: Surgeon(s) and Role: [...] she saw PCP who ordered CT at [facility], given history of LAD stent placed in 06/2023 referred to [facility] for surgical intervention. She had onset of [...] F in via ambulance, hospital transfer from [facility] for known kidney stone, here for procedure. Pt has had kidney stone for some time, states symptoms since July. Pt reports some nausea and painat this time. A+Ox4. documented in this encounter Plan of Treatment Upcoming Encounters Date Type Department Care Team (Late st Contact Info) Description 05/15/2024 1:00 PM EDT TH Visit (TeleHealth) Rheumatology at [facility] [place] [address] Pasha Wood MD [facility] [place] [place] [address] documented as of this encounter Procedures Procedure Name Priority Date/Time Associated Diagnosis Comments XR FLUORO NO RAD <1HR - OR USE Routine 10/21/2023 12:15 PM EDT URINE HOLD Routine 10/21/2023 12:03 PM EDT URINE CULTURE Routine 10/21/2023 12:03 PM EDT Cystoscopy, Insert Ureteral Stent ([id number]) 10/21/2023 11:39 AM EDT Stone CYSTO, STENT [...] PM EDT) Hold, Urine Sample in lab. [facility] Urine Urine / Unknown 10/21/2023 1 2:03 PM EDT 10/21/2023 12:34 PM EDT Comment:Bladder urine for cu lture. Inessa Alonzo Jr., MD URINE ORDERABLES Performing Organization Address [facility] Co de Phone Number [facility] [place] [place] [address] * Urine culture Cystoscopic Urine (10/21/2023 12:03 PM EDT) [facility] Urine Culture No growth (Less than 100 cfu/ml). [facility] Cystoscopic Urine 10/21/2023 12:03 PM EDT 10/21/2023 1:09 PM EDT Comment:Bladder urine for cu lture. Narrative Resulting Agency Comment Spec In Lab Inessa Alonzo Jr., MD MICROBIOLOGY - GEN ERAL ORDERABLES Performing Organization Address [facility] Co de Phone Number [facility] [place] [place] [address] * (ABNORMAL) Differential, Automated (10/21/2023 9:50 AM EDT) Neutrophil % 87.2 % [facility] Neutrophil Absolute 11.81(H) 1.70 - 6.10 x10(3)/mc L [facility] Lymph % 6.5 % [facility] Lymphocytes Abs 0.9 0.9 - 3.2 x10(3)/mc L [facility] Monocyte % 5.8 % [facility] Monocyte Abs 0.8 0.3 - 0.9 x10(3)/mc L [facility] Eos % 0.0 % [facility] Eosinophils Abs 0.0 0.0 - 0.4 x10(3)/[facility] Basophil % 0.1 % [facility] Baso Absolute 0.0 0.0 - 0.1 x10(3)/[facility] Immature Gran % 0.40 % [facility] Comment: Immature granulocytes(IG's)percentage and absolute count will include metamyelocytes, myelocytes, and promyelocytes. Blood smears from CBCs yielding IG's will be scanned manually for concordance. If this scan disagrees with the automated IG or if promyelocytes are noted, a manual differential will be performed. Immature Gran Absolute 0.06(H) 0.00 - 0.04 x10(3)/[facility] Blood 10/21/2023 9:50 AM EDT 10/21/2023 9:59 AM EDT Narrative Resulting Agency Comment Spec In Lab Ancelmo MALONEY HEMATOLOGY ORDERABLE S [facility] [place] [place] [address] * (ABNORMAL) Hemogram (10/21/2023 9:50 AM EDT) White Blood Cell 13.6(H) 4.0 - 9.5 x10(3)/[facility] Red Blood Cell 4.37 4.00 - 5.21 x10(6)/[facility] Hemoglobin 13.9 11.7 - 15.5 g/dL [facility] Hematocrit 41.0 35.7 - 45.8 % [facility] Mean Cell Volume 93.8 82.6 - 94.4 fL [facility] Mean Cell Hemoglobin 31.8 27.1 - 32.0 pg [facility] Mean Cell Hemoglobin Concentration 33.9 31.7 - 35.0 g/dL [facility] Platelet 319 145 - 357 x10(3)/[facility] RDW Standard Deviation 50.5(H) 37.0 - 46.0 fL [facility] RDW coefficient of variation 14.5(H) 11.5 - 14.1 % [facility] Mean Platelet Volume 8.8 7.6 - 12.9 fL [facility] NRBC% auto 0.0 % [facility] NRBC Absolute 0.000 0.000 - 0.000 x10(3)/mc L [facility] Blood 10/21/2023 9:50 AM EDT 10/21/2023 9:59 AM EDT Narrative Resulting Agency Comment Spec In Lab Ancelmo MALONEY HEMATOLOGY ORDERABLE S [facility] [place] [place] [address] * Basic Metabolic Panel (non-fasting) (10/21/2023 9:50 AM EDT) Glucose 141 65 - 199 mg/dL [facility] Comment:Diabetes: >=200 mg/d L plus symptoms Blood Urea Nitrogen 11 8 - 18 mg/dL [facility] Creatinine 0.72 0.70 - 1.20 mg/dL [facility] Sodium 139 135 - 145 mmol/L [facility] Potassium 3.9 3.5 - 5.0 mmol/L [facility] Comment: Please note: ??Patients with WBC >100,000 may have falsely elevated Potassium levels. ??For accurate Potassium quantification in these patients send serum separator tube (gold top) for subsequent determinations. ??Contact the Clinical Chemistry Laboratory if there are any questions. Chloride 101 98 - 107 mmol/L [facility] Carbon Dioxide 26 22 - 31 mmol/L [facility] Anion Gap 12 5 - 15 mmol/L [facility] Calcium 9.8 8.5 - 10.5 mg/dL [facility] Est Glomerular Filtration Rate 89 >=60 mL/min/1. 73 m?? [facility] Comment: This patient's estimated GFR [...] In Lab Chi Caal MD CHEMISTRY ORDERABLES [facility] [place] [address] * SCAN DOC: IMPLANTABLE DEVICES (10/21/2023 12:00 AM EDT) Narrative 10/21/2023 12:00 AM EDT Ordered by an unspecified provider. Scanning Provider MEDIA MGR SCAN EXT O RDR/RSLT documented in this encounter Visit Diagnoses Diagnosis Kidney stone- Primary Calculus of kidney Nephrolithiasis Calculus of kidney documented in this encounter Admitting Diagnoses Diagnosis Kidney [...] PRN, Starting on Sun10/21/23 at 0905, Until 10/22/23 at 1253, Pain, Routine Given 10/21/2023 9:49 AM EDT 0.5 mg levothyroxine (Synthroid) tablet 125 mcg 125 mcg, Oral, DAILY, First dose on Sun10/21/23 at 1645, Until Discontinued, Routine Given 10/22/2023 8:06 AM EDT 125 mcg metoprolol succinate XL (Toprol-XL) tablet 50 mg 50 mg, Oral, DAILY, First dose on Sun10/21/23 at 1415, Until Discontinued, DO NOT CRUSH OR OPEN, Routine Given 10/22/2023 8:07 AM EDT 50 mg ondansetron (pf) (Zofran) (2 mg/mL) injection 4 mg 4 mg, Intravenous, EVERY 8 HOURS PRN, Starting on Sun10/21/23 at 1603, Until 10/22/23 at 1253, Nausea, May repeat times one in 30 minutes if ineffective. If multiple antiemetics are ordered, use ondansetron first., Recovery (Recovery-Hospital Unit) ondansetron (Zofran) tablet 4 mg 4 mg, Oral, EVERY 8 HOURS PRN, Starting on Sun10/21/23 at 1603, Until Sun10/22/23 at 1253, Nausea, Vomiting, If multiple antiemetics are ordered, use ondansetron first. PO Preferred. If patient unable to take PO, may give IV if ordered. May repeat times one in 45 minutes if ineffective., Recovery (Recovery-Hospital Unit), Routine oxyCODONE (Roxicodone) tablet 10 mg 10 mg, Oral, EVERY 4 HOURS PRN, Starting on Sun10/21/23 at 1554, Until Sun10/22/23 at 1253, Pain, severe pain (7-10), Routine oxyCODONE (Roxicodone) tablet 5 mg 5 mg, Oral, EVERY 4 HOURS PRN, Starting on Sun10/21/23 at 1554, Until 10/22/23 at 1253, Pain, moderate pain (4-6), Routine phenazopyridine (Pyridium) tablet 200 mg 200 mg, Oral, 3 TIMES DAILY AFTER MEALS, First dose on Sun10/21/23 at 1900, Until Discontinued Given 10/22/2023 8:07 AM EDT 200 mg Given 10/21/2023 9:35 PM EDT 200 mg predniSONE (Deltasone) tablet 2 mg 2 mg, Oral, DAILY, First dose on Sun10/21/23 [...] infusion 100 mL/hr, Intravenous, CONTINUOUS, Starting on Sun10/21/23 at 0914, Until Sun10/22/23 at 0546 New Bag 10/21/2023 9:48 AM EDT 100 mL/hr 100 mL/hr sodium chloride 0.9% infusion 1,000 mL, at 100 mL/hr, Intravenous, CONTINUOUS, Starting on 10/21/23 at 1330, Until 10/22/23 at 0630 New Bag 10/21/2023 1:30 PM [...] Routine 1509 (Given - Provider: Page Darby RN)202 (Given - Provider: Azalea Stock RN) 0807 (Given - Provider: Katina Dickinson, JOSEPH) aspirin chewable tablet 81 mg 81 mg, Oral, DAILY, First dose on 10/21/23 at 1645, Until Discontinued, Routine 1702 (Given - Provider: Katina Dickinson RN) 0807 (Given - Provider: Katina Dickinson, JOSEPH) clopidogreL (Plavix) tablet 75 mg 75 mg, Oral, DAILY, First dose on 10/21/23 at 1415, Until Discontinued, Routine 1517 (Given - Provider: Page Darby RN) 0806 (Given - Provider: Katina Dickinson, JOSEPH) docusate sodium (Colace) capsule 100 mg 100 [...] 0807 (Given - Provider: Katina Dickinson RN) predniSONE (Deltasone) tablet 2 mg 2 mg, Oral, DAILY, First dose on 10/21/23 at 1415, Until Discontinued, Routine 1415 (Not Given - Provider: Page Darby RN - Reason: Medication not available)1533 (Given - Provider: Page Darby RN) 0807 (Given - Provider: Katina Dickinson RN) rosuvastatin (Crestor) tablet 20 mg 20 mg, [...] 10/21/23 at 0914, Until Sun10/22/23 at 0546 0948 (New Bag - Provider: Tanya Singleton RN)1138 (SEP Hold - Provider: Admin Adt - Reason: Transfer to a Procedural area)1341 (Not Given - Provider: Page Darby RN - Reason: Entered in Error)1553 (MAR Unhold - Provider: Admin Adt) sodium chloride 0.9% infusion (CANCELED) 1,000 mL, at 100 mL/hr, Intravenous, CONTINUOUS, Starting on 10/21/23 at 1330, Until Sun10/22/23 at 0630 1330 (New Bag - Provider: Page Darby, JOSEPH) PRN Medication Order 10/20/2023 10/21/2023 10/22/2023 ALPRAZolam (Xanax) tablet 0.25 mg 0.25 mg, Oral, NIGHTLY PRN, Starting on 10/21/23 at 1554, Until Sun10/22/23 at 1253, Anxiety, [...] Routine documented in this encounter Care Teams Assembler Radio And Electrical Relationship Specialty Start Date End Date Latha Aguirre MD [address] [place] [address] [place] [address] PCP - General Family Medicine 06/28/23 documented as of this encounter
--- OUTSIDE RECORDS SUMMARY | 2024-03-27 20:52 | XMS_ITS | Encounter Summary ---
Author Organization [facility] Address [facility] [place] [address] Care Team Providers Care Materials Management Clerk Name Role Phone Latha Aguirre MD Primary Care Provider Reason for Visit * Reason Comments Nephrolithiasis Encounter Details Date Type Department Care Team (Late st Contact Info) Description 10/15/2023 11:00 AM EDT [place] [address] Inessa Alonzo Jr., MD [facility] [place] [address] Left ureteral stone Social History Tobacco Use Types Packs/Day Years Used Date Smoking Tobacco: Never Smokeless Tobacco: Never Alcohol Use Standard Drinks/Week Comments No 0 (1 standard drink = 0.6 oz pur e alcohol) [facility] Inpatient Questions Answer Date Recorded Does Anyone [...] Sign Reading Time Taken Comments Blood Pressure 142/64 10/15/2023 10:50 AM EDT Pulse 75 10/15/2023 10:50 AM EDT Temperature - - Respiratory Rate 20 10/15/2023 10:50 AM EDT Oxygen Saturation 98% 10/15/2023 10:50 AM EDT Inhaled Oxygen Concentration - - Weight 92.1 kg (203 lb) 10/15/2023 10:50 AM EDT Height 157.5 cm (5' 2) 10/15/2023 10:50 AM EDT Body Mass Index 37.13 10/15/2023 10:50 AM EDT documented in this encounter Progress Notes * Javad Jackson MD - 10/15/2023 11:00 AM EDT Images from the original note were not included. HPI: Paeg Katz is a 72 y.o. year old female being seen for 8mm left ureteral stone. She wasseen for on 08/17/22 with flank pain in which she saw PCP who ordered CT at [facility], given history of LAD stent placed in 06/2023 referred [place] [facility] [place]. She states she began having symptoms at the end of July with LLQ pain which she initially felt was r/t bowel obstructing but imaging showed large stone. She has had kidney stone in the past with Dr. Alonzo s/p left PCNL in 05/2013 for >2cm stone. She is currently asymptomatic but had hematuria recently. PMHx: Hypothyroidism, Endometrial cancer, Recent cardiac stent PSHx: LAR, Hysterectomy, PCNL (2012) Physical Exam Vitals reviewed. Constitutional: General: She is not in acute distress. Appearance: She is not ill-appearing, toxic-appearing or diaphoretic. Cardiovascular: Rate and Rhythm: Normal rate. Pulmonary: Effort: Pulmonary effort is normal. No respiratory distress. Abdominal: General: There is no distension. Palpations: Abdomen is soft. Tenderness: There is no abdominal tenderness. There is no guarding. Genitourinary: Comments: No CVA tenderness to percussion bilaterally Stone Composition: 60 % calcium oxalate monohydrate, 20% calcium oxalate dihydrate and 20% calcium phosphate Imaging Studies: We independently reviewed the CT from today which reveals a ~8mm left ureteral stone that does not have significant hydronephrosis proximal. Impression/Plan: #Obstructing LEFT ureteral stone - 3 had a long discussion with Page Katz regarding her left ureteral stone. We discussed management options of watchful waiting, SWL, and ureteroscopy, as well as open stone surgery, and the relative risks, benefits, and limitations of each. We specifically discussed risks of bleeding, infection, injury to kidney/ureter/bladder/urethra, surrounding structures, development of strictures, need for additional or staged procedures, inability to access or remove stone, and risks of anesthesia and risks of heart attack, stroke, or . With an understanding of the above, she would like to proceed with an attempt at left ureteroscopy with laser lithotripsy and temporary stent placement, possibly staged, and this will be scheduled for her at her convenience. I have asked her to call with any additional questions. Urine will be sent for culture preoperatively Given her recent cardiac stent we will plan for a ureteroscopy in the main OR. # Recurrent nephrolithiasis - currently has an ileostomy which is likely contributing to stone formation. After her current stone is managed, we will address her metabolic risk factors STAFF ADDENDUM: I saw and examined Page Katz with Dr. Jackson , have independently reviewed her CT, and concur with history, exam, impression, and plan as noted and amended. INESSA ALONZO JR, MD * Inessa Alonzo Jr., MD - 10/15/2023 11:00 AM EDT I saw and examined Page Katz with Dr. Jackson and agree with attached history, exam, impression, and plan. I have independently reviewed her CT imaging and we have discussed at length management options. She wishes to proceed with ureteroscopy, recognizes may require a multistage approach, and recognizes increased perioperative risk given recent myocardial infarction and stent placement. However based on the large size of the stone nonoperative treatment may result in progressive obstruction and subsequent ipsilateral renal function progressive decline or loss. documented in this encounter Plan of Treatment Upcoming Encounters Date Type Department Care Team (Late st Contact Info) Description 05/15/2024 1:00 PM EDT TH Visit (TeleHealth) [place] [address] Pasha Wood MD [facility] [place] [address] documented as of this encounter Procedures Procedure Name Priority Date/Time Associated Diagnosis Comments URINE CULTURE Routine 10/15/2023 10:30 AM EDT documented in this encounter Results * Urine culture (10/15/2023 10:30 AM EDT) Urine Culture 10,000-49,0 00 cfu/ml Normal mucosal denny [facility] Clean Catch Urine 10/15/2023 10:30 AM EDT 10/15/2023 6:18 PM EDT Narrative Resulting Agency Comment Spec In Lab Inessa Alonzo Jr., MD MICROBIOLOGY - GEN ERAL ORDERABLES Performing Organization Address City/State/[facility] Co de Phone Number [facility] [place] [address] documented in this encounter Visit Diagnoses Diagnosis Left ureteral stone documented in this encounter Care Teams Materials Management Clerk Relationship Specialty Start Date End Date Latha Aguirre MD [address] [place] [id number] PCP - General Family Medicine 06/28/23 documented as of this encounter
--- OUTSIDE RECORDS SUMMARY | 2024-03-27 20:53 | XMS_ITS | Encounter Summary ---
Author Organization [facility] [place] [address] Care Team Providers Care Dance Choreographer Name Role Phone Nathalie Bain MD Primary Care Provider Encounter Details Date Type Department Care Team (Late st Contact Info) Description 05/05/2021 [place] [phone] Pasha Wood MD [facility] [address] Social History Tobacco Use Types Packs/Day Years Used Date Smoking Tobacco: Never Smokeless Tobacco: Never Alcohol Use Standard Drinks/Week Comments No 0 (1 standard drink = 0.6 oz pur e alcohol) Sex and Gender Information Value Date Recorded Sex Assigned at Not on file Gender Identity Not on file Sexual Orientation Not on file documented as of this encounter Plan of Treatment Upcoming Encounters Date Type Department Care Team (Late st Contact Info) Description 05/15/2024 1:00 PM EDT TH Visit (TeleHealth) [place] [phone] Pasha Wood MD [facility] [place] [address] documented as of this encounter Visit Diagnoses Not on filedocumented in this encounter Care Teams Dance Choreographer Relationship Specialty Start Date End Date Nathalie Bain MD [address] [place] [address] PCP - General Family Medicine 06/28/16 12/20/21 documented as of this encounter
--- OUTSIDE RECORDS SUMMARY | 2024-03-27 20:53 | XMS_ITS | Encounter Summary ---
Author Organization [facility] [place] [address] Care Team Providers Care Filter Washer And Presser Name Role Phone Nathalie Bain MD Primary Care Provider Reason for Visit * Reason Comments Follow-up Encounter Details Date Type Department Care Team (Late st Contact Info) Description 07/14/2021 11:30 AM EST Office [place] [address] Pasha Wood MD [facility] [place] [address] Seronegative rheumatoid arthritis Social History Tobacco Use [...] Sign Reading Time Taken Comments Blood Pressure 144/49 07/14/2021 11:40 AM EST Pulse 79 07/14/2021 11:40 AM EST Temperature 36.4 ??C (97.6 ??F) 07/14/2021 11:[address] Respiratory Rate 16 07/14/2021 11:40 AM EST Oxygen Saturation 100% 07/14/2021 11:40 AM EST Inhaled Oxygen Concentration - - Weight 97.8 kg (215 lb 9.8 oz) 07/14/2021 11:40 AM EST Height 158.8 cm (5' 2.5) 07/14/2021 11:40 AM ES T Body Mass Index 38.81 07/14/2021 11:40 AM EST documented in this encounter Patient Instructions * Patient Instructions* Pasha Wood MD - 07/14/2021 11:30 AM EST Start Humira Continue MTX 20 mg weekly. Folic acid 1 mg daily Try too decrease gabapentin to 1 capsule daily. Continue prednisone 2 mg daily documented in this encounter Progress Notes * Pasha Wood MD - 07/14/2021 11:30 AM EST Chief rheumatologic issue: Page Katz is a 70 y.o. female returns today for scheduled in person f/u of seronegative rheumatoid arthritis. Chief complaint: Seronegative rheumatoid arthritis HPI: This is a scheduled follow up appointment. ?I initially thought it quite possible that Page had polymyalgia rheumatica. Therewere several other diagnostic possibilities though including a PMR-like presentation of rheumatoid arthritis that would explain why she has not been able to taper off of her prednisone completely. ?I did not think that we could attribute her inability to come off of prednisone to a rapid taper since she has been tapering by 1 mg monthly. Interestingly in 2011 at the time of her thyroidectomy, she was also seen by Dr. Dharmesh Cummings who was a steam box hand emeritus at [facility]. He confirmed the diagnosis of polymyalgia rheumatica and recommended a taper of 1 mg per month and coincident use of non-steroidal anti-inflammatory medication. It may also be possible that her joint painis related to her inflammatory bowel disease. ?Physical examination did demonstrate that she has diffuse myofascial pain. ?I thought she had evolved to seronegative RA and I began treatment with combination DMARD therapy with HCQ and MTX to facilitate final glucocorticoid taper. ?She stopped HCQ due to intolerance. ?HLA B27 neg ?RF neg ?CCP neg ?ESR 25 ? 11-20-18 Interval events: ?Swelling and pain in the right hand. Hurts with sewing. Overall very little morning stiffness. Has some gelling in the upper legs after sitting for period time. Bilateral foot pain. ?Methotrexate 8 tablets weekly divided up taking 4 in the morning and 4 in the evening. ?Has some blurring of vision. Some eye strain at the end of the day. Using artificial tears. ?No interval medical events. ?No new medications. ?Methotrexate labs 10/03/2018 ? 03-20-19 Interval events: ?No interval health events. ?No new medications. ?Thyroid medication decreased to 125 mcg. 06-19-19 Interval [...] Stiffness in the MCPs especially. Difficulty with pharmacy stock clerk. Has other aches and pains yet [...] June. Also saw Dr. Pasha Govea at [facility] podiatry and had nailbed surgery on [...] most recent laboratory tests were done at [facility] 2020. I checked in the electronic [...] pain. 07-14-2021 Interval Events: Last visit with me 05/05/2021. At that time starting adalimumab was discussed with specialty pharmacy. She received medication assistance from the radio despatcher. She just received her first delivery ofadalimumab. [...] has been vaccinated with Moderna vaccine series. Review of Systems: Has not yet started adalimumab. No fevers. No viral symptoms. She feels fatigued in the evening. HEENT: No mouth sores. No facial rash. Hydroxychloroquine stopped due to hair thinning. She states that her joints are doing okay. No red hot swollen joints. No chest pain or palpitations. She had recent appointment at [facility] with Dr. Rand in Dermatology. No cough wheezing or shortness of breath. No upper or lower GI symptoms. Allergies include: Atorvastatin and Fentanyl Current Outpatient Medications Medication Sig Dispense Refill ??? gabapentin (Neurontin) 100 mg Capsule Take 3 capsules by mouth 2 times daily. 180 capsule 0 ??? folic acid (FOLVITE) 1 mg Tablet Take 1 mg by mouth daily. ??? losartan (COZAAR) 100 mg Tablet Take 100 mg by mouth daily. ??? predniSONE (DELTASONE) 10 mg Tablet Take 5 mg by mouth daily. ??? methotrexate 2.5 mg Tablet Take 20 mg by mouth once a week. 5 tablets ??? levothyroxine (SYNTHROID) 125 mcg Tablet Take 125 mcg by mouth. 2 days a week ??? aspirin (SHELTON FlypayS ASPIRIN) 81 mg chewable tablet ??? acetaminophen (TYLENOL) 325 mg Tablet Take 650 mg by mouth every 4 hours as needed for Pain. ??? levothyroxine (SYNTHROID) 150 mcg tablet Take 1 tablet by mouth daily. (Patient not taking: Reported on 09/09/2020) 90 tablet 3 ??? Nfkztjzazofii-Zm-Ycvh-Minerals (ONE-A-DAY WOMENS FORMULA) 27-0.4 mg Tab (Patient not taking: Nosig reported) Allergies Allergen Reactions ??? Atorvastatin Other reaction(s): elevated LFTs ??? Fentanyl Other reaction(s): altered mental status ??? Other [Unclassified Drug] Other (See Comments) Pain Patch(drug unknown) Fentanyl- confused hallucinations Physical Exam: BP 144/49 Pulse 79 Temp 36.4 ??C (97.6 ??F) (Temporal) Resp 16 Ht 158.8 cm (5' 2.5) Wt 97.8 kg (215 lb 9.8 oz) SpO2 100% BMI 38.81 kg/m?General appearance and movement: alert, nontoxic; accompanied by and grandson ?HEENT: anicteric sclerae, conjunctivae clear; wearing facial covering ?Skin: no rash ?Heart: RRR ?Lungs: CTA ?Hands: No synovitis detected in MCPs ?Wrists: no synovitis ?Elbows: normal flexion and extension, pronation and supination ?Shoulders: full painless range of motion Hips with normal internal and external rotation Knees without evidence of inflammation. She has had bilateral total knee arthroplasties. One was done 13 years ago on the left and another was done 10 years ago on the right Ankles without synovitis. Normal subtalar and tibiotalar range of motion ? Labs: ? 03/29/2011: Rheumatoid factor negative. ? 12/05/2013: Metabolic profile unremarkable, though liver function tests were not checked at this time. Calcium was 10.1. C-rective protein 1.73 with normal in this lab at less than 0.3. TSH at 0.68. ? 12/05/2013: CBC unremarkable with the exception of platelet count of 448 which by her report is chronically elevated and has been as long as she has been diagnosed with Crohn's. Most recent sed rate was identified as 22 in 10/10/2012. Assessment: Page Katz is a 70 y.o. female who returns in follow up of seronegative rheumatoid arthritis 1. Seronegative rheumatoid arthritis: Currently she seems to be doing fairly well with 2 mg of prednisone and 20 mg of methotrexate. I am however concerned about her diagnosis of fatty liver and continuing this dose of methotrexate. I really do want to start her on adalimumab. We discussed in depthrisks and potential benefits of TNF alpha inhibition. Laboratory testing due today. I will be watching liver function tests very carefully given her diagnosis of nonalcoholic fatty liver disease and use of methotrexate. She has agreed to a trial of a TNFai bioDMARD. I will be in contact with specialty pharmacy so they can walk her through the injection process. Once she begins to experience therap eutic effect from adalimumab I am hopeful that we can get her off of prednisone entirely and then begin to taper methotrexate down to 7.5 mg or even discontinue entirely. 2. NAFLD (nonalcoholic fatty liver disease): As above. 3. Vitamin D deficiency: She will continue her vitamin D supplementation and her multivitamin. I previously recommended increasing vitamin D intake by 1000 international units daily. Goal is 40-60 for vitamin D. I previously also recommended dietary calcium. 4. Hypercalcemia: Result today 10.7. I suspect this may be from aggressive supplementation. I had wanted to check vitamin D level yet was not able to add this onto her methotrexate monitoring labs. 5. Hypokalemia: I suspect this is a medication effect. Laboratory letter sent. I recommended increasing supplementation with food sources including orange juice and banana Plan: Continue methotrexate 20 mg weekly. Methotrexate monitoring labs today Continue prednisone at 2 mg daily PA adalimumab completed Please note that this note was completed with the assistance of voice recognition software. As result unintentional legal transcriptionist errors and/or typographical mistakes are possible. If you notice errors please bring them to my attention. If any area requires explanation or clarification please do not hesitate to contact me. 45 minutes total spent on this visit including precharting, review of laboratory, notes from other providers, [id number] interaction, and documentation. documented in this encounter Plan of Treatment Upcoming Encounters Date Type Department Care Team (Late st Contact Info) Description 05/15/2024 1:00 PM EDT TH Visit (TeleHealth) [place] [address] Pasha Wood MD [facility] [place] [address] documented as of this encounter Procedures Procedure Name Priority Date/Time Associated Diagnosis Comments HEMOGRAM Routine 07/14/2021 12:56 PM EST Seronegative rheumatoid arthritis DIFFERENTIAL, AUTOMATED Routine 07/14/2021 12:56 PM EST Seronegative rheumatoid arthritis HC VENIPUNCTURE Routine 07/14/2021 12:56 PM EST Seronegative rheumatoid arthritis COMPREHENSIVE METABOLIC PANEL Routine 07/14/2021 12:56 PM EST Seronegative rheumatoid arthritis documented in this encounter Results * (ABNORMAL) Differential, Automated (07/14/2021 12:56 PM EST) Neutrophil % 75.3 % [facility] Neutrophil Absolute 6.29(H) 1.70 - 6.10 x10(3)/mc L [facility] Lymph % 11.2 % [facility] Lymphocytes Abs 0.9 0.9 - 3.2 x10(3)/mc L [facility] Monocyte % 10.8 % [facility] Monocyte Abs 0.9 0.3 - 0.9 x10(3)/[facility] Eos % 1.8 % [facility] Eosinophils Abs 0.2 0.0 - 0.4 x10(3)/[facility] Basophil % 0.7 % [facility] Baso Absolute 0.1 0.0 - 0.1 x10(3)/[facility] Immature Gran % 0.20 % [facility] Comment: Immature granulocytes(IG's)percentage and absolute count will include metamyelocytes, myelocytes, and promyelocytes. Blood smears from CBCs yielding IG's will be scanned manually for concordance. If this scan disagrees with the automated IG or if promyelocytes are noted, a manual differential will be performed. Immature Gran Absolute 0.02 0.00 - 0.04 x10(3)/[facility] Blood 07/14/2021 12:5 6 PM EST 07/14/2021 1:30 PM EST Narrative Resulting Agency Comment Spec In Lab Pasha Wood MD HEMATOLOGY ORDERABLE S [facility] [place] [address] * (ABNORMAL) Hemogram (07/14/2021 12:56 PM EST) White Blood Cell 8.4 4.0 - 9.5 x10(3)/[facility] Red Blood Cell 4.31 4.00 - 5.21 x10(6)/[facility] Hemoglobin 14.0 11.7 - 15.5 g/dL [facility] Hematocrit 41.9 35.7 - 45.8 % [facility] Mean Cell Volume 97.2(H) 82.6 - 94.4 fL [facility] Mean Cell Hemoglobin 32.5(H) 27.1 - 32.0 pg [facility] Mean Cell Hemoglobin Concentration 33.4 31.7 - 35.0 g/dL [facility] Platelet 410(H) 145 - 357 x10(3)/mc L [facility] RDW Standard Deviation 54.5(H) 37.0 - 46.0 fL [facility] RDW coefficient of variation 15.5(H) 11.5 - 14.1 % [facility] Mean Platelet Volume 8.9 7.6 - 12.9 fL [facility] NRBC% auto 0.0 % [facility] NRBC Absolute 0.000 0.000 - 0.000 x10(3)/mc L [facility] Blood 07/14/2021 12:5 6 PM EST 07/14/2021 1:30 PM EST Narrative Resulting Agency Comment Spec In Lab Pasha Wood MD HEMATOLOGY ORDERABLE S [facility] [place] [address] * (ABNORMAL) Comprehensive metabolic panel (non-fasting) (07/14/2021 12:56 PM EST) Glucose 101 65 - 199 mg/dL [facility] Comment:Diabetes: >=200 mg/d L plus symptoms Blood Urea Nitrogen 11 8 - 18 mg/dL [facility] Creatinine 0.68(L) 0.70 - 1.20 mg/dL [facility] Sodium 143 135 - 145 mmol/L [facility] Potassium 3.3(L) 3.5 - 5.0 mmol/L [facility] Comment: Please note: ??Patients with WBC >100,000 may have falsely elevated Potassium levels. ??For accurate Potassium quantification in these patients send serum separator tube (gold top) for subsequent determinations. ??Contact the Clinical Chemistry Laboratory if there are any questions. Chloride 103 98 - 107 mmol/L [facility] Carbon Dioxide 28 22 - 31 mmol/L [facility] Anion Gap 12 5 - 15 mmol/L [facility] Calcium 10.7(H) 8.5 - 10.5 mg/dL [facility] Protein, Total 7.4 6.1 - 8.0 g/dL [facility] Albumin 4.5 3.2 - 5.2 g/dL [facility] Aspartate Aminotransferase 25 0 - 30 unit/L [facility] Alanine Aminotransferase 24 0 - 30 unit/L [facility] Alkaline Phosphatase 80 35 - 105 unit/L [facility] Bilirubin, Total 0.7 0.2 - 1.3 mg/dL [facility] Est Glomerular Filtration Rate 89 >=60 mL/min/1. 73 m?? [facility] Comment: This patient? s estimated glomerular filtration rate (eGFR) is between 89 mL/min/1.73 m2 (patients with less muscle mass) and 103 mL/min/1.73 m2 (patients with more muscle mass) as determined by the CKD-EPI equation. Assessment of eGFR is not appropriate when creatinine concentrations are rapidly changing. For clinical decisions where creatinine clearance will affect therapy, a 24-hour urine creatinine clearance may be advised. Assignment of CKD stage 1 - 5 for patients with an eGFR near the transition point between stages may be based on clinical assessment of muscle mass and symptoms in addition to eGFR. Blood 07/14/2021 12:5 6 PM EST 07/14/2021 1:30 PM EST Narrative Resulting Agency Comment Spec In Lab Pasha Wood MD CHEMISTRY ORDERABLES [facility] [place] [address] documented in this encounter Visit Diagnoses Diagnosis Seronegative rheumatoid arthritis Rheumatoid arthritis documented in this encounter Care Teams Filter Washer And Presser Relationship Specialty Start Date End Date Nathalie Bain MD [address] [place] [address] PCP - General Family Medicine 06/28/16 12/20/21 documented as of this encounter
--- OUTSIDE RECORDS SUMMARY | 2024-03-27 20:53 | XMS_ITS | Encounter Summary ---
Author Organization [facility], Located Within [facility] [place] [address] Care Team Providers Care Housekeeper And Laundry Assistant Name Role Phone Latha Aguirre MD Primary Care Provider Reason for Visit * Reason Comments Rheumatoid Arthritis Encounter Details Date Type Department Care Team (Latest Contact Info) Description 06/28/2023 4:00 PM EST TH Visit (TeleHealth) [place] [address] Pasha Wood MD [facility] [place] [address] [place] [address] Seronegative rheumatoid arthritis Social History Tobacco Use Types Packs/Day Years Used Date Smoking Tobacco: Never Smokeless Tobacco: Never Alcohol Use Standard Drinks/Week Comments No 0 (1 standard drink = 0.6 oz pur e alcohol) Sex and Gender Information Value Date Recorded Sex Assigned at Not on file Gender Identity Not on file Sexual Orientation Not on file documented as of this encounter Patient Instructions * Patient Instructions* Pasha Wood MD - 06/28/2023 4:00 PM EST Continue Humira and prednsione documented in this encounter Progress Notes * Pasha Wood MD - 06/28/2023 4:00 PM EST This is a telemedicine visit that was performed with the originating site at that patients home address (please see electronic health record for applicable address) and the distant site at my [facility] office. Verbal consent to participate in video visit was obtained by Pasha Wood MD or the rooming compounding assistant as documented in their note. This visit occurred during the Coronavirus (COVID-19) Public Health Emergency. I discussed with the patient the nature of our telemedicine visits, that: I would evaluate the patient and recommend diagnostics and treatments based on my assessment Our sessions are not being recorded and that personal health information is protected Our team would provide follow up care in person if/when the patient needs it The concept of ???Telemedicine?? has been described to the patient. Patient has been informed of the anticipated benefitsand possible risks. Patient understands the information provided regarding telemedicine, has had the opportunity to ask questions about this information, and all questions have been answered to patien t's satisfaction. Patient consents for the use of telemedicine in his/her medical care and authorizes the transmission of any relevant medical information to providers and their staff involved in patient's medical or mental health care. Chief rheumatologic issue: Page Katz is a 72 y.o. female returns today for scheduled in [...] by Dr. Dharmesh Cummings who was a blasting clay miner emeritus at [facility]. He confirmed the diagnosis of polymyalgia rheumatica [...] Stiffness in the MCPs especially. Difficulty with coding auditor. Has other aches and pains yet not [...] June. Also saw Dr. Pasha Govea at [facility] podiatry and had nailbed surgery on [...] most recent laboratory tests were done at [facility] 2020. I checked in the [...] pharmacy. She received medication assistance from the floorleader. She just received her first delivery ofadalimumab. [...] series. 09-15-2021 Interval events: Last visit with nc 07-14-2021. First dose of adalimumab was 07-14-2021. [...] medications. 03-09-2022 Interval Events: Last visit with nc 09-15-2020. First dose of adalimumab was 07-14-2021. 5 injections so far. No sitereactions. Feeling well overall with respect to her joint symptoms Covid vaccinations with Moderna x 4. Had Covid October 2020. Smell and taste have not come back. Was previously seen by Dr. Bain and INSTRUMENT PANEL ASSEMBLER in her office. Had MRI at [facility] about one month ago due to word [...] at the end of the month. Charlette Luu. Taking 2 antidepressants Mood is better. Quiter [...] to leg pain. Referred to PT in [place]. Will be having 3 sessions per week. Will be getting home exercises. Humira every 2 weeks Will be getting injections just below the waist Still on 2 mg prednisone. Unable to get any lower. No new medications. Review of Systems: No fevers. No viral [...] Patch(drug unknown) Fentanyl- confused hallucinations Physical Exam: There were no vitals taken for this visit. Telemedicine visit. Alert. No distress. Appropriate speech thought content. Pleasant and interactive. Labs: 03/29/2011: Rheumatoid factor negative. 12/05/2013: Metabolic [...] in 10/10/2012. Assessment: Page Katz is a 72 y.o. female who returns in follow up of seronegative rheumatoid arthritis 1. Seronegative rheumatoid arthritis: She continues to do well on adalimumab 40 mg every 2 weeks and prednisone 2 mg daily. Unable to get below this level. Unable to tolerate MTX or HCQ. Methotrexatewas discontinued due to liver function abnormalities in transaminases and diagnosis of nonalcoholicfatty liver disease. She was having significant hair loss and fatigue. I am hopeful that we will beable to continue adalimumab as her biologic DMARD as this is well- tolerated. May also consider the use of Priyank inhibitor such as tofacitinib should the effect of adalimumab wane. 2. NAFLD (nonalcoholic fatty liver disease): As above. 3. Vitamin D deficiency: She will continue her vitamin D supplementation and her multivitamin. I previously recommended increasing vitamin D intake by 1000 international units daily. Goal is 40-60 for vitamin D. I previously also recommended dietary calcium. 4. Depression: Mood continues to be stabl. She has established with counseling through her primary care office and continues to take duloxetine. Plan: Continue Humira 40 mg every other week Try to get prednisone down to 1 mg if you can 36 minutes total spent on this visit including precharting, review of laboratory, notes from other providers, [id number] interaction, and documentation. documented in this encounter Plan of Treatment Upcoming Encounters Date Type Department Care Team (Late st Contact Info) Description 05/15/2024 1:00 PM EDT TH Visit (TeleHealth) [place] [address] Pasha oWod MD [facility] [place] [address] Scheduled Orders Name Type Priority Associated Diagnoses Orde r Schedule CBC (with Diff) Lab Routine Seronegative rheumatoid arthritis Every 3 months for 4 Occurrences starting 06/28/2023 until 06/27/2024 Comprehensive metabolic panel (non-fasting) Lab Routine Seronegative rheumatoid arthritis Every 12 Weeks for 4 Occurrences starting 06/28/2023 until 06/28/2024 CRP, acute inflammation Lab Routine Seronegative rheumatoid arthritis Expected: 06/28/2023, Expires: 06/28/2024 documented as of this encounter Visit Diagnoses Diagnosis Seronegative rheumatoid arthritis Rheumatoid arthritis documented in this encounter Care Teams Housekeeper And Laundry Assistant Relationship Specialty Start Date End Date Latha Aguirre MD [address] [place] [id number] PCP - General Family Medicine 06/28/23 documented as of this encounter
--- OUTSIDE RECORDS SUMMARY | 2024-03-27 20:53 | XMS_ITS | Encounter Summary ---
[place] [address] Care Team Providers Care Mortgage Banker Name Role Phone Unavailable Primary Care Provider Unavailabl e Reason for Visit * Reason Comments Specialty Pharmacy Review Adalimumab (Hu estiven) Pen 40mg/0.4mL Encounter Details Date Type Department Care Team (Late st Contact Info) Description 03/09/2022 Specialty [place] [address] Christine Gomez, [facility] Social History Tobacco Use Types Packs/Day Years Used Date Smoking Tobacco: Never Smokeless Tobacco: Never Alcohol Use Standard Drinks/Week Comments No 0 (1 standard drink = 0.6 oz pur e alcohol) Sex and Gender Information Value Date Recorded Sex Assigned at Not on file Gender Identity Not on file Sexual Orientation Not on file documented as of this encounter Progress Notes * Christine Gomez - 03/09/2022 11:59 PM EDT The [facility] has completed a benefits investigation for Pagesavanah Katz to review their eligibility to fill at [facility]. Per patient's medication list they are prescribed Adalimumab (Humira) and the medication is not able to be filled at the [facility]. documented in this encounter Plan of Treatment Upcoming Encounters Date Type Department Care Team (Late st Contact Info) Description 05/15/2024 1:00 PM EDT TH Visit (TeleHealth) [place] [id number] Pasha Wood MD [facility] [place] [address] [place] [address] documented as of this encounter Visit Diagnoses Not on filedocumented in this encounter
--- OUTSIDE RECORDS SUMMARY | 2024-03-27 20:53 | XMS_ITS | Encounter Summary ---
Author Organization [facility] [place] [address] Care Team Providers Care Track Layer Head Name Role Phone Nathalie Bain MD Primary Care Provider Reason for Visit * Reason Comments Medication Refill Encounter Details Date Type Department Care Team (Late st Contact Info) Description 10/28/2021 [place] [address] Pasha Wood MD [facility] [place] [address] [place] [address] Social History Tobacco Use Types Packs/Day Years [...] encounter Miscellaneous Notes * Telephone Encounter - [facility] Lem[facility] - 10/31/2021 1:21 PM EDT Rheumatology appointment in the last 6 months? Yes RN confirm MTX dose? 20 mg weekly Most recent labs: External labs? Yes [ WBC Date Value Ref Range Status 07/14/2021 8.4 4.0 - 9.5 x10(3)/mcL Final Hemoglobin Date Value Ref Range Status 07/14/2021 14.0 11.7 - 15.5 g/dL Final MCV Date Value Ref Range Status 07/14/2021 97.2 (H) 82.6 - 94.4 fL Final Platelets Date Value Ref Range Status 07/14/2021 410 (H) 145 - 357 x10(3)/mcL Final Creatinine Date Value Ref Range Status 07/14/2021 0.68 (L) 0.70 - 1.20 mg/dL Final Albumin Date Value Ref Range Status 07/14/2021 4.5 3.2 - 5.2 g/dL Final AST Date Value Ref Range Status 07/14/2021 25 0 - 30 unit/L Final ALT Date Value Ref Range Status 07/14/2021 24 0 - 30 unit/L Final ] If last labs >12 weeks, were new labs ordered per protocol by RN? No Follow-up appointment scheduled: No Routed to [facility] for follow-up scheduling: Yes documented in this encounter Plan of Treatment Upcoming Encounters Date Type Department Care Team (Late st Contact Info) Description 05/15/2024 1:00 PM EDT TH Visit (TeleHealth) [place] [address] Pasha Wood MD [facility] [place] [address] documented as of this encounter Visit Diagnoses Not on filedocumented in this encounter Care Teams Track Layer Head Relationship Specialty Start Date End Date Nathalie Bain MD [address] [place] [address] PCP - General Family Medicine 06/28/16 12/20/21 documented as of this encounter
--- OUTSIDE RECORDS SUMMARY | 2024-03-27 20:53 | XMS_ITS | Encounter Summary ---
Author Organization [facility] [place] [address] Care Team Providers Care Head Automatic Sawyer Name Role Phone Nathalie Bain MD Primary Care Provider Reason for Visit * Reason Comments Medication Refill Encounter Details Date Type Department Care Team (Late st Contact Info) Description 07/04/2021 [place] [address] Pasha Wood MD [facility] [place] [address] Seronegative rheumatoid arthritis Social History Tobacco Use [...] encounter Miscellaneous Notes * Telephone Encounter - Deborah Galarza LPN - 07/05/2021 9:37 AM EST Requested Prescriptions Pending Prescriptions Disp Refills ??? gabapentin (Neurontin) 300 mg Capsule [Pharmacy Med Name: Gabapentin 300 MG Oral Capsule] 180 capsule 0 Sig: Take 1 capsule by mouth twice daily Last office visit: 07/14/2021 no future appt's scheduled Last refill: 09/09/2020 documented in this encounter Plan of Treatment Upcoming Encounters Date Type Department Care Team (Late st Contact Info) Description 05/15/2024 1:00 PM EDT TH Visit (TeleHealth) [place] [address] Pasha Wood MD [facility] [place] [address] documented as of this encounter Visit Diagnoses Diagnosis Seronegative rheumatoid arthritis Rheumatoid arthritis documented in this encounter Care Teams Head Automatic Sawyer Relationship Specialty Start Date End Date Nathalie Bain MD [address] [place] [address] PCP - General Family Medicine 06/28/16 12/20/21 documented as of this encounter
--- OUTSIDE RECORDS SUMMARY | 2024-03-27 20:53 | XMS_ITS | Encounter Summary ---
[place] [address] Care Team Providers Care Lan Analyst Name Role Phone Nathalie Bain MD Primary Care Provider Reason for Visit * Reason Comments Medication Management Patient Education Encounter Details Date Type Department Care Team (Late st Contact Info) Description 05/05/2021 Specialty [place] [address] Destiny Eaton [facility] Social History Tobacco Use Types Packs/Day Years Used Date Smoking Tobacco: Never Smokeless Tobacco: Never Alcohol Use Standard Drinks/Week Comments No 0 (1 standard drink = 0.6 oz pur e alcohol) Sex and Gender Information Value Date Recorded Sex Assigned at Not on file Gender Identity Not on file Sexual Orientation Not on file documented as of this encounter Progress Notes * Destiny Eaton [facility] - 05/05/2021 11:27 AM EDT Specialty Pharmacy Consultation; Destiny Eaton [facility] Comprehensive Medication Management (CMM) Page Katz Diagnosis: RA Therapy Start Date: TBD, pending insurance approval Contact in person or via telephone: in person Ms. Page Katz is a 70 y.o. (1950) female who was contacted in regard to specialty medication. Spoke with patient regarding Humira . A review of the medication therapy was performed. The medication will be filled pending insurance approval and all medication related questions and concerns were addressed. Is the patient willing to proceed with the Clinical Assessment? Yes Summary and Recommendations: Page Katz was seen in clinic for a review of Humira for the treatment of rheumatoid arthritis. Patient is aware of the prior authorization process and timeline and was given [facility] contact information for any questions. Patient was educated on the Humira labeled black box warnings regarding the risk of serious infections including tuberculosis and malignancies. Discussed other precautions with Humira including anaphylaxis/hypersensitivity and hepatitis B reactivation. Patient denies personal history of demyelinating disease or heart failure and was made aware of these precautions as well. Patient was educated on the importance of infection prevention including best practices for hand hygiene and the annual fluvaccine. Discussed the need to avoid live vaccines during treatment. Dose hold parameters were reviewed including suspected/known infection, prescribed antibiotic therapy, or scheduled surgery. Patient agrees to contact the clinic to review dose hold in these settings. Educated patient on the potential side effects of Humira including injection site reaction, headache, rash, and infections such as URTI/sinusitis. Discussed with patient that it may take 3-4 months to experience the full benefit of Humira. A review of dosing, storage, and administration was completed. Patient was educated on the dosing schedule, 40 mg subcutaneously every 2 weeks. Patient was made aware that Humira must be stored in the refrigerator and remains stable at room temperature for 14 days. Demonstration of injection technique was performed using Humira training kit. Patient was advised on proper site rotation, site sterilization, and allowing the medication to reach room temperature prior to injection. Patient was ableto demonstrate appropriate injection technique and required no remedial counseling. Patient was encouraged to schedule an injection teaching appointment if they prefer to have first injection completed with medical oversight and was directed to view additional online video resources if needed. Patient will be provided with a sharps container and disposal of pens was discussed. Clinic follow-up needed: yes-follow up appts Allergies and Drug intolerance: Allergies Allergen Reactions ??? Atorvastatin Other reaction(s): elevated LFTs ??? Fentanyl Other reaction(s): altered mental status ??? Other [Unclassified Drug] Other (See Comments) Pain Patch(drug unknown) Fentanyl- confused hallucinations Special Dietary or Hydration Requirements: no There is no height or weight on file to calculate BMI. Medication Reconciliation Discrepancies (compared to [facility] med list) -none identified Medication List: Current Outpatient Medications Medication Sig Note Dispense Refill ??? predniSONE (Deltasone) 1 mg Tablet Take 3 tablets by mouth daily for 90 days. 270 tablet 2 ??? metHOTREXate 2.5 mg Tablet Take 8 tablets (20 mg) by mouth once a week. 96 tablet 1 ??? predniSONE (Deltasone) 5 mg Tablet Take 1 tablet by mouth daily. (Patient not taking: Reported on 05/05/2021) 60 tablet 0 ??? folic acid (FOLVITE) 1 mg Tablet Take 1 mg by mouth daily. ??? losartan (COZAAR) 100 mg Tablet Take 100 mg by mouth daily. ??? predniSONE (DELTASONE) 10 mg Tablet Take 5 mg by mouth daily. ??? acetaminophen (TYLENOL) 325 mg Tablet Take 650 mg by mouth every 4 hours as needed for Pain. ??? levothyroxine (SYNTHROID) 125 mcg Tablet Take 125 mcg by mouth. 2 days a week ??? levothyroxine (SYNTHROID) 150 mcg tablet Take 1 tablet by mouth daily. (Patient not taking: Reported on 09/09/2020) 05/13/2014: 5 days a week 90 tablet 3 ??? aspirin ([employer] ASPIRIN) 81 mg chewable tablet 05/25/2014: Stopped for 2 weeks ??? Ulsxokvvdcprp-Jd-Oxyx-Minerals (ONE-A-DAY WOMENS FORMULA) 27-0.4 mg Tab No current facility-administered medications for this visit. Most Recent Vitals: Ht Readings from Last 1 Encounters: 05/05/21 158.8 cm (5' 2.5) Wt Readings from Last 3 Encounters: 05/05/21 97.7 kg (215 lb 4.8 oz) 12/09/15 93.9 kg (207 lb) 10/27/15 95.4 kg (210 lb 6.4 oz) Temp Readings from Last 3 Encounters: 05/05/21 36.4 ??C (97.6 ??F) (Temporal) 06/17/14 36.6 ??C (97.9 ??F) (Oral) 05/13/14 36.9 ??C (98.4 ??F) BP Readings from Last 3 Encounters: 05/05/21 156/71 12/09/15 143/64 12/09/15 151/69 Pulse Readings from Last 3 Encounters: 05/05/21 70 12/09/15 77 12/09/15 76 Pertinent Lab values: Lab Results Component Value Date NA 142 (External Lab) 04/07/2021 K 3.8 (External Lab) 04/07/2021 CL 106 (External Lab) 04/07/2021 CO2 29 (External Lab) 04/07/2021 BUN 13 (External Lab) 04/07/2021 CREATININE 0.8 (External Lab) 04/07/2021 GLUCOSE 97 (External Lab) 04/07/2021 CALCIUM 9.7 (External Lab) 04/07/2021 Lab Results Component Value Date ALT 34 (External Lab) 04/07/2021 AST 28 (External Lab) 04/07/2021 ALKPHOS 73 (External Lab) 04/07/2021 BILITOT 0.5 (External Lab) 04/07/2021 ALBUMIN 3.4 (External Lab) 04/07/2021 PROT 6.9 (External Lab) 04/07/2021 Lab Results Component Value Date WBC 6.32 (External Lab) 04/07/2021 HGB 13.2 (External Lab) 04/07/2021 HCT 41.0 (External Lab) 04/07/2021 MCV 99.8 (EXTERNAL/ABN) 04/07/2021 PLATELET 407 (EXTERNAL/ABN) 04/07/2021 No results found for: HA1C Immunization History Administered Date(s) Administered ??? Influenza Vaccine, Whole 07/30/2003, 07/30/2007 ??? Pneumococcal Polyvalent 23 07/30/2006 Assessment and Recommendations: Title Type of Medication Management: chronic disease management, targeted medication review Referred By: provider Recipient: beneficiary Provider: plan sponsor pharmacist Visit Type: Misc New Pt Method of Contact: face to face Cognitive Ability: good Drug Interactions Provided the patient with educational material regarding drug interactions: yes Patient Counseling Counseled the patient on the following: reviewed medication changes since last visit, drug interaction education provided to patient, doses and administration discussed, safe handling, storage, and disposal discussed, possible adverse effects and management discussed, possible drug and prescription drug interactions discussed, possible drug and OTC drug and food interactions discussed, lab monitoring and follow-up discussed, therapeutic rationale discussed, cost of medications and cost implications discussed, adherence and missed doses discussed, pharmacy contact information discussed, health goals discussed, monitoring medication discussed, over the counter products discussed, preventative care discussed, recommendations to doctor discussed, reminder to refill or citrus picker medication discussed, self-monitoring discussed, start medication discussed, stop medication discussed, timing of medications discussed, vaccination discussed, referral needs discussed Drug Medication Management Summary Topics discussed: reviewed medication changes since last visit, drug interaction education provided to patient, doses and administration discussed, safe handling, storage, and disposal discussed, possible adverse effects and management discussed, possible drug and prescription drug interactions discussed, possible drug and OTC drug and food interactions discussed, lab monitoring and follow-up discussed, therapeutic rationale discussed, cost of medications and cost implications discussed, adherence and missed doses discussed, pharmacy contact information discussed, health goals discussed, monitoring medication discussed, over the counter products discussed, preventative care discussed, recommendations to doctor discussed, reminder to refill or citrus picker medication discussed, self-monitoring discussed, start medication discussed, stop medication discussed, timing of medications discussed, vaccination discussed, referral needs discussed Time spent: 16-30 min Treatment Outcomes 05/05/2021 1127 Disease progression: Moderate Reviewed in detail with patient: Dose appropriateness based on recommended standard dosing Current medication list including OTC medications Medication and disease problems Allergies Comorbid conditions/ Problem List Past adverse events if any Special needs of the patient including physical and cognitive limitations Goals of therapy and management strategies Warnings, precautions, and contraindications Side effects Drug-drug and drug-food interactions Administration instructions including dose, frequency and method Handling, storage, and disposal of the medication Relevant lab data Treatments impact on disease Dose appropriateness based on recommended standard dosing schedule, including any variations from FDA approved dosing Patient verbalizes understanding and is able to read-back instructions on self-administration/injection, proper storage, drug stability, importance of adherence and management strategies, side effectavoidance and mitigation strategies, and interruptions in therapy: yes Physical Assessment: Functional limitations identified: no Cognitive limitations identified: no Concern regarding orientation/memory: no Concern with reasoning/judgement: no Is patient a fall risk: no Other needed information: no Social Assessment: Does the patient have a primary career technical supervisor? no Patient has emergency contact on file: Yes Does patient need referral to social worker school: No Does patient need referral to advocacy group: No Physical and Home Health Assessment: Is the patient able to store their medication as directed? Yes Is the patient in a safe home environment? Yes Do you have a support network? Yes Reviewed potential home safety hazards: No Economic Assessment: Patient is agreeable to medication copay: Yes Copay Amount: TBD Supply: TBD Date Needed: pending insurance approval Copay assistance required: no Therapy Assessment: Current Medication Dosing/Route/Frequency: Humira 40mg/0.4mL PNKT Inject the contents of 1 pen subcutaneously every 14 days. Appropriate Therapy: Yes Current joints affected: hands/fingers Current pain rating (1-10): Not reported Estimated duration of morning joint stiffness: 1 to 2 hours Estimated number of recent flares: yes - 1 Recent systemic corticosteroid use: yes - prednisone 3 mg daily Expected Outcome: decrease in RA symptoms Patient's goals: Patient's specific desired goal: She is hoping to have a decrease in pain in joints by about 30 to 40 In order to be able to do her daily tasks with ease. Measured by: prednisone usage, flares, pain scale Time-frame to meet goal: 3 to 6 months Patient's Problems/Needs: RA/decrease in pain Care Plan Reviewed and Approved by both Pharmacist and Patient: Yes Monitoring requirements for prescribed medication: Improvement of symptoms,TB screening, HBV screening, CBC, signs/symptoms of active infections, heart failure, hypersensitivity, and malignancy Interventions (if applicable): No Educational information or adherence tools provided: Yes [facility] Pharmac[facility] follow-up needed: Yes Informed patient of specialty pharmacy services: Yes -Patient will be provided with welcome packet: Yes Date to be provided: TBD Delivery Method: mail -Patient will be provided with Rights & Responsibilities: Yes Date to be provided: TBD Delivery Method: mail -Patient is aware a licensed pharmacist is available 24 hours a day, 7 days a week to discuss medication-related questions or concerns: Yes -Patient verbalizes understanding of the common side effect profile of their medication. The patient is able to call 911 or seek urgent care if signs/symptoms of allergy or harmful adverse reactions occur: Yes Patient understands no changes to current drug regimen were made at the appointment and that [facility] isproviding recommendations (summary located at top of note) for provider review and follow up. Destiny Eaton RPH 05/05/21 11:27 AM documented in this encounter Plan of Treatment Upcoming Encounters Date Type Department Care Team (Late st Contact Info) Description 05/15/2024 1:00 PM EDT TH Visit (TeleHealth) [place] [address] Pasha Wood MD [facility] [place] [address] documented as of this encounter Visit Diagnoses Not on filedocumented in this encounter Care Teams Lan Analyst Relationship Specialty Start Date End Date Nathalie Bain MD [address] [place] [address] PCP - General Family Medicine 06/28/16 12/20/21 documented as of this encounter
--- OUTSIDE RECORDS SUMMARY | 2024-03-27 20:53 | XMS_ITS | Encounter Summary ---
Author Organization [facility] Address [facility] [place] [address] Care Team Providers Care Confectionery Maker Name Role Phone Unavailable Primary Care Provider Unavailabl e Encounter Details Date Type Department Care Team (Late st Contact Info) Description 02/15/2023 11:30 AM EDT Office [place] [address] Pasha Wood MD [facility] [place] [address] Seronegative rheumatoid arthritis; Vitamin D deficiency; Depression, unspecified depression type; NAFLD (nonalcoholic fatty liver disease) Social History Tobacco Use Types Packs/Day Years [...] Sign Reading Time Taken Comments Blood Pressure 133/56 02/15/2023 11:40 AM EDT Pulse 79 02/15/2023 11:40 AM EDT Temperature 36.7 ??C (98.1 ??F) 02/15/2023 1 1:40 AM EDT Respiratory Rate 12 02/15/2023 11:4 0 AM EDT Oxygen Saturation 100% 02/15/2023 11: 40 AM EDT Inhaled Oxygen Concentration - - Weight 96.1 kg (211 lb 12.8 oz) 023 11:40 AM EDT Height - - Body Mass Index 38.12 03/09/2022 1:31 PM EDT documented in this encounter Patient Instructions * Patient Instructions* Pasha Wood MD - 02/15/2023 11:30 AM EDT Continue Humira 40 mg every other week Try to get prednisone down to 1 mg if you can documented in this encounter Progress Notes * Pasha Wood MD - 02/15/2023 11:30 AM EDT Chief rheumatologic issue: Page Katz [...] by Dr. Dharmesh Cummings who was a underwear cutter emeritus at [employer] [facility] [facility] [place]. He confirmed the [...] neg RF neg CCP neg ESR 25 -24-19 Interval events: Swelling and pain in the [...] Stiffness in the MCPs especially. Difficulty with rock splitter. Has other aches and pains yet not [...] June. Also saw Dr. Pasha Govea at [facility] podiatry and had nailbed surgery on [...] most recent laboratory tests were done at [facility] 2020. I checked in the electronic medical [...] pain. 07-14-2021 Interval Events: Last visit with oh 05/05/2021. At that time starting adalimumab was discussed with specialty pharmacy. She received medication assistance from the boom storage. She just received her first delivery ofadalimumab. [...] series. 09-15-2021 Interval events: Last visit with oh 07-14-2021. First dose of adalimumab was 07-14-2021. [...] medications. 03-09-2022 Interval Events: Last visit with oh 09-15-2020. First dose of adalimumab was 07-14-2021. 5 injections so far. No sitereactions. Feeling well overall with respect to her joint symptoms Covid vaccinations with Moderna x 4. Had Covid October 2020. Smell and taste have not come back. Was previously seen by Dr. Bain and [facility] in her office. Had MRI at [facility] about one month ago due to [...] Mood is better. Quiter now that the kids are back in school. 02-15-2023 Interval events: Overall doing ok. Has her aches and pains. Legs and hips feel weak. Trouble on steps. No falls. Not exercising regularly. Humira every 2 weeks Prednisone at 2 mg. Tried alternating 1 mg with 2 mg. Just increased to 2 mg this week. No longer working with counselor. Unable to tolerate buproprion. Stopped biotin. Still on duloxetine. Review of Systems: No fevers. No viral symptoms. Energy is better HEENT: No mouth sores. No facial rash. Hydroxychloroquine stopped due to hair thinning. Diffuse myalgias and arthralgias. No chest pain or palpitations. No cough wheezing or shortness of breath. No upper or lower GI symptoms. Mood is somewhat better Allergies Allergen Reactions Atorvastatin Other reaction(s): elevated LFTs Fentanyl Other reaction(s): altered mental status Other [Unclassified Drug] Other (See Comments) Pain Patch(drug unknown) Fentanyl- confused hallucinations Physical Exam: BP 133/56 (BP Location (NBP): Right arm, Patient Position: Sitting, BP Cuff Sizes: Large Adult (32-43 cm)) Pulse 79 Temp 36.7 ??C (98.1 ??F) (Temporal) Resp 12 Wt 96.1 kg (211 lb 12.8 oz) SpO2 100% BMI 38.12 kg/m?? Telemedicine visit. Televideo General appearance and movement: alert, nontoxic; accompanied by HEENT: anicteric sclerae, conjunctivae clear Skin: no [...] well on adalimumab 40 mg every 2 weeks. She is also been able to decrease prednisone to 2 mg. Methotrexate was discontinued due to liver function abnormalities in transaminases and diagnosis of nonalcoholic fatty liver disease. She was having significant hair loss and fatigue. I am hopeful that we will be able to continue adalimumab as herbiologic DMARD as this is well-tolerated. May also consider the use of Priyank inhibitor such as tofacitinib 2. NAFLD (nonalcoholic fatty liver disease): As above. 3. Vitamin D deficiency: She will continue her vitamin D supplementation and her multivitamin. I previously recommended increasing vitamin D intake by 1000 international units daily. Goal is 40-60 for vitamin D. I previously also recommended dietary calcium. 4. Depression: Mood seems better. She has established with counseling through her primary care office and continues to take duloxetine. Plan: Continue Humira 40 mg every other week Try to get prednisone down to 1 mg if you can 38 minutes total spent on this visit including precharting, review of laboratory, notes from other providers, [id number] interaction, and documentation. documented in this encounter Plan of Treatment Upcoming Encounters Date Type Department Care Team (Late st Contact Info) Description 05/15/2024 1:00 PM EDT TH Visit (TeleHealth) [place] [address] Pasha Wood MD [facility] [address] documented as of this encounter Visit Diagnoses Diagnosis Seronegative rheumatoid arthritis Rheumatoid arthritis Vitamin D deficiency Unspecified vitamin D deficiency Depression, unspecified depression type NAFLD (nonalcoholic fatty liver disease) Other chronic nonalcoholic liver disease documented in this encounter
--- OUTSIDE RECORDS SUMMARY | 2024-03-27 20:53 | XMS_ITS | Encounter Summary ---
[place] [address] Care Team Providers Care Tumblers Supervisor Name Role Phone Unavailable Primary Care Provider Unavailabl e Reason for Visit * Reason Comments Specialty Pharmacy Review Adalimumab (Hu estiven) Pen 40mg/0.4mL Encounter Details Date Type Department Care Team (Late st Contact Info) Description 06/08/2022 Specialty Pharm[place] [address] Christine Gomez, [facility] Social History Tobacco Use Types Packs/Day Years [...] encounter Progress Notes * Christine Gomez - 06/08/2022 11:59 PM EST [facility] has completed a benefits investigation for Page Katz to review their eligibility to fill at [facility]. Per patient's medication list they are prescribed Adalimumab (Humira) and the medication is not able to be filled at the [facility]. Page Katz fills with the security strategist ([employer]) due to cost. documented in this encounter Plan of Treatment Upcoming Encounters Date Type Department Care Team (Late st Contact Info) Description 05/15/2024 1:00 PM EDT TH Visit (TeleHealth) [place] [address] Pasha Wood MD [facility] [place] [address] documented as of this encounter Visit Diagnoses Not on filedocumented in this encounter
--- OUTSIDE RECORDS SUMMARY | 2024-03-27 20:53 | XMS_ITS | Encounter Summary ---
Author Organization [facility] Address [facility] [place] [address] Care Team Providers Care Sheep Shearer Name Role Phone Unavailable Primary Care Provider Unavailabl e Reason for Visit * Reason Comments Medication Refill Encounter Details Date Type Department Care Team (Late st Contact Info) Description 02/08/2023 Refill [place] [address] Pasha Wood MD [facility] [place] [address] Seronegative rheumatoid arthritis Social History Tobacco Use [...] encounter Miscellaneous Notes * Telephone Encounter - Noelle Mckngiht LPN - 02/08/2023 12:52 PM EDT predniSONE (Deltasone) 1 mg tablet Last office visit: 10/12/22 (TeleHealth) future apt. 02/15/23 Last refill: 10/12/22 predniSONE (Deltasone) 1 mg tablet 180 tablet 1 10/12/2022 01/10/2023 Sig - Route: Take 2 tablets by mouth daily for 90 days. - Oral documented in this encounter Plan of Treatment Upcoming Encounters Date Type Department Care Team (Late st Contact Info) Description 05/15/2024 1:00 PM EDT TH Visit (TeleHealth) [place] [address] Pasha Wood MD [facility] [place] [address] documented as of this encounter Visit Diagnoses Diagnosis Seronegative rheumatoid arthritis Rheumatoid arthritis documented in this encounter
--- OUTSIDE RECORDS SUMMARY | 2024-03-27 20:53 | XMS_ITS | Encounter Summary ---
Author Organization [facility] [place] [address] Care Team Providers Care Program Checker Name Role Phone Unavailable Primary Care Provider Unavailabl e Encounter Details Date Type Department Care Team (Late st Contact Info) Description 06/15/2022 Specialty [place] [address] Laila Bello, [facility] Social History Tobacco Use Types Packs/Day Years Used Date Smoking Tobacco: Never Smokeless Tobacco: Never Alcohol Use Standard Drinks/Week Comments No 0 (1 standard drink = 0.6 oz pur e alcohol) Sex and Gender Information Value Date Recorded Sex Assigned at Not on file Gender Identity Not on file Sexual Orientation Not on file documented as of this encounter Progress Notes * Laila Bello - 06/15/2022 4:52 PM EST error documented in this encounter Plan of Treatment Upcoming Encounters Date Type Department Care Team (Late st Contact Info) Description 05/15/2024 1:00 PM EDT TH Visit (TeleHealth) [place] [address] Pasha Wood MD [facility] [place] [address] documented as of this encounter Visit Diagnoses Not on filedocumented in this encounter
--- OUTSIDE RECORDS SUMMARY | 2024-03-27 20:53 | XMS_ITS | Encounter Summary ---
Author Organization [facility] Address [facility] [place] [address] Care Team Providers Care Varitype Operator Name Role Phone Latha Aguirre MD Primary Care Provider Encounter Details Date Type Department Care Team (Late st Contact Info) Description 07/14/2023 [place] [address] Joseph Martinez Jr., MD [facility] [address] Social History Tobacco Use Types Packs/Day Years [...] encounter Miscellaneous Notes * Telephone Encounter - Joseph Martinez Jr., MD - 07/14/2023 6:44 AM EST Contacted by OSH ED for cardiology consultation. History taking and objective data are per the OSH ED provider/staff member. Referring Location: [facility] Referring Provider: Elena Goldsmith MD [address] [place] [address] [place] [address] Page Dumas Sterling 72 y.o. w / a pmh sig for hypothyroidism, obesity HTN BERNAL MDD HTN and colon ca s/p ostomy (not on chemo) presenting wih a constellation of complaints. The pt was describing headache, dizziness, SOB, and some chest tightness. This began last night, but she went to bed. She woke upthis morning, and most symptoms had improved, but due tto continued feeling of generalized fatigue,she came to the ED. The pt had both her COVID and Flu shot yesterday. She has remained HD stable (actually hypertensive), without any other complaints. EKG below. Troponin returned at 8500.Was given aspirin and plavix BP 159/68 HR 80 Troponin: 8500 (ULN 60) Creatinine:fine H/H: normal Platelets: normal EKG:: NSR with non-specitic ST segment changes in the lateral leads A/P: Given above history, presentation, and data, this episode most likely represents an NSTEMI. Presentation is a bit odd, but the degree of troponin elevation in setting of recent vaccination couldbe either ischemia from thrombus vs myocarditis. Plan for aspirin, plavix 600, heparin, and transfer here for an ischemic eval. They will also start a high intensity statin and metoprolol. documented in this encounter Plan of Treatment Upcoming Encounters Date Type Department Care Team (Late st Contact Info) Description 05/15/2024 1:00 PM EDT TH Visit (TeleHealth) [place] [address] Pasah Wood MD [facility] [address] documented as of this encounter Visit Diagnoses Not on filedocumented in this encounter Additional Health Concerns Infection Onset Date Last Indicated Resolved Time Rule Out COVID-19 07/14/2023 07/14/2023 07/14/2023 6:44 PM EST Rule Out Respiratory 07/14/2023 07/14/2023 023 6:44 PM EST documented as of this encounter Care Teams Varitype Operator Relationship Specialty Start Date End Date Latha Aguirre MD [address] [place] [address] PCP - General Family Medicine 06/28/23 documented as of this encounter
--- OUTSIDE RECORDS SUMMARY | 2024-03-27 20:53 | XMS_ITS | Encounter Summary ---
Author Organization [facility] [place] [address] Care Team Providers Care Clinical Research Scientist Name Role Phone Nathalie Bain MD Primary Care Provider Reason for Visit * Reason Comments Follow-up Encounter Details Date Type Department Care Team (Late st Contact Info) Description 05/05/2021 9:30 AM EDT Office [place] [address] Pasha Wood MD [facility] [place] [address] Seronegative rheumatoid arthritis Social History Tobacco Use [...] Sign Reading Time Taken Comments Blood Pressure 156/71 05/05/2021 9:45 AM EDT Pulse 70 05/05/2021 9:45 AM EDT Temperature 36.4 ??C (97.6 ??F) 05/05/2021 9 :45 AM EDT Respiratory Rate 16 05/05/2021 9:45 AM EDT Oxygen Saturation 100% 05/05/2021 9:4 5 AM EDT Inhaled Oxygen Concentration - - Weight 97.7 kg (215 lb 4.8 oz) 05/05/2021 9:45 AM EDT weighed at home Height 158.8 cm (5' 2.5) 05/05/2021 9: 45 AM EDT Body Mass Index 38.75 05/05/2021 9:45 AM EDT documented in this encounter Patient Instructions * Patient Instructions* Pasha Wood MD - 05/05/2021 9:30 AM EDT Labs before biologic therapy Continue current medication regimen with prednisone and methotrexate Next labs 07-07-2021 documented in this encounter Progress Notes * Pasha Wood MD - 05/05/2021 9:30 AM EDT Chief rheumatologic issue: Page Katz is a 70 y.o. female returns today for scheduled in person f/u of seronegative rheumatoid arthritis. HPI: This is a scheduled follow up [...] by Dr. Dharmesh Cummings who was a pv design engineer emeritus at [employer]. He confirmed the diagnosis of polymyalgia rheumatica [...] Stiffness in the MCPs especially. 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 Has other aches and pains yet not [...] Also saw Dr. Pasha Govea at [facility] podiatry and had nailbed surgery on [...] most recent laboratory tests were done at [facility]. I checked in the electronic [...] Concerned about hair loss and chronic pain. Review of Systems: Had PA for Remicade yet did not start this. She has been concerned about the risk of developing malignancy. She has also been concerned given the pandemic She previously used Remicade for inflammatory bowel disease. Overall not doing well. Upset and frustrated with the way leonard feels and her level of pain HEENT: No mouth sores. No facial rash. Hydroxychloroquine stopped due to hair thinning. Still with thinning hair. Joints had been better on 5 mg of prednisone. No chest pain or palpitations. No rashes. Respiratory symptoms as in HPI. No GI sxs. Allergies include: Atorvastatin and Fentanyl Current Outpatient [...] 2 days a week ??? aspirin ([employer] ASPIRIN) 81 mg chewable tablet ??? acetaminophen (TYLENOL) 325 mg Tablet Take 650 mg by mouth every 4 hours as needed for Pain. ??? levothyroxine (SYNTHROID) 150 mcg tablet Take 1 tablet by mouth daily. (Patient not taking: Reported on 09/09/2020) 90 tablet 3 ??? Alupjkmmhjguw-Ey-Srol-Minerals (ONE-A-DAY WOMENS FORMULA) 27-0.4 mg Tab (Patient not taking: Nosig reported) Allergies Allergen Reactions ??? Atorvastatin Other reaction(s): elevated LFTs ??? Fentanyl Other reaction(s): altered mental status ??? Other [Unclassified Drug] Other (See Comments) Pain Patch(drug unknown) Fentanyl- confused hallucinations Physical Exam: BP 156/71 Pulse 70 Temp 36.4 ??C (97.6 ??F) (Temporal) Resp 16 Ht 158.8 cm (5' 2.5) Wt 97.7 kg (215 lb 4.8 oz) Comment: weighed at home SpO2 100% BMI 38.75 kg/m?General appearance and movement: alert, nontoxic; occasionally tearful; Accompanied by ?HEENT: anicteric sclerae, conjunctivae clear; wearing facial covering ?Skin: no rash ?Heart: RRR ?Lungs: CTA ?Hands: mild synovitis in MCPs; FTNs left and right long fingers at the A1 alida; L > R ?Wrists: no synovitis ?Elbows: normal flexion and extension, pronation and supination ?Shoulders: full painless range of motion ? Labs: ? 03/29/2011: [...] seronegative rheumatoid arthritis 1. Seronegative rheumatoid arthritis: By symptoms she had improved after increasing prednisone to 5mg daily. Now with increasing pain at lower dose of prednisone. She is also continuing to take methotrexate 20 mg weekly and is supplementing with folic acid 1 mg daily. Recent lab testing 04-07-2021 reviewed at time of the appointment. I will be watching liver function tests very carefully given herdiagnosis of nonalcoholic fatty liver disease and use of methotrexate. She has agreed to a trial ofa TNFai bioDMARD 2. NAFLD (nonalcoholic fatty liver disease): As above. 3. Vitamin D deficiency: She will continue her vitamin D supplementation and her multivitamin. I previously recommended increasing vitamin D intake by 1000 international units daily. Goal is 40-60 for vitamin D. I previously also recommended dietary calcium. Plan: Continue methotrexate 20 mg weekly. Methotrexate monitoring labs 07-07-2021 at [facility]. Continue prednisone at 3 mg daily PA adalimumab Please note that this note was completed with the assistance of voice recognition software. As result unintentional hand tire trimmer errors and/or typographical mistakes are possible. If you notice errors please bring them to my attention. If any area requires explanation or clarification please do not hesitate to contact me. 47 minutes total spent on this visit including precharting, review of laboratory, notes from other providers, knhg-oh-ocmd interaction, and documentation. documented in this encounter Plan of Treatment Upcoming Encounters Date Type Department Care Team (Late st Contact Info) Description 05/15/2024 1:00 PM EDT TH Visit (TeleHealth) [place] [address] Pasha Wood MD [facility] [place] [address] documented as of this encounter Procedures Procedure Name Priority Date/Time Associated Diagnosis Comments HC VENIPUNCTURE Routine 05/05/2021 11:01 AM EDT Seronegative rheumatoid arthritis HC HEPATITIS C ANTIBODY Routine 05/05/2021 11:01 AM EDT Seronegative rheumatoid arthritis HC HEPATITIS B CORE AB Routine 05/05/2021 11:01 AM EDT Seronegative rheumatoid arthritis HC HEPATITIS B SURFACE AB Routine 05/05/2021 11:01 AM EDT Seronegative rheumatoid arthritis HC HEPATITIS B SURFACE AG Routine 05/05/2021 11:01 AM EDT Seronegative rheumatoid arthritis documented in this encounter Results * QuantiFERON-TB Gold (05/05/2021 11:01 AM EDT) Quantiferon Nil 0.020 IU/mL [facility] QFT TB Ag1-Nil 0.000 IU/mL [facility] QFT TB Ag2-Nil 0.000 IU/mL [facility] Quantiferon Mitogen-Nil 9.740 IU/mL [facility] Quantiferon-TB Gold Negative Negative [facility] Quantiferon Tb Interp M. tuberculosis infection NOT likely A negative specimen should have a TB1 Ag minus Nil value and TB2 Ag minus Nil value of less than 0.35 IU/mL OR a TB1 Ag minus Nil or TB2 Ag minus Nil value greater than or equal to 0.35 IU/mL AND a TB Ag minus Nil value from the same tube of less than 25% of the Nil value. A negative specimen must also have a mitogen minus Nil value greater than or equal to 0.5 IU/mL. A negative QFT-Plus result does not preclude the possibility of M. tuberculosis infection. False negative results can occur due to stage of infection (specimen obtained prior to the development of immune response), co-morbid conditions which affect immune function, or other immunological factors. [facility] Comment: The performance of the QFT-Plus assay has not been extensively evaluated with specimens from the following individuals: Individuals who have impaired or altered immune functions, such as those who have HIV infection or AIDS, those who have transplantation managed with immunosuppressive treatment or others who receive immunosuppressive drugs (e.g., corticosteroids, methotrexate, azathioprine, cancer chemotherapy), those who have other clinical conditions, such as diabetes, silicosis, chronic renal failure, and hematological disorders (e.g., leukemia and lymphomas), or those with other specific malignancies (e.g., carcinoma of the head or neck and lung). Individuals younger than age 17 years women. Diagnosis of, or the exclusion of tuberculosis disease, and assessment of Latent Tuberculosis Infection (LTBI) requires a combination of epidemiological, historical, Medical and diagnostic findings that should be taken into account when interpreting QFT-Plus results. Blood 05/05/2021 11:0 1 AM EDT 05/06/2021 7:11 AM EDT Narrative Resulting Agency Comment Spec In Lab Pasha Wood MD CHEMISTRY ORDERABLES Performing Organization Address [facility] Co de Phone Number [facility] [place] [address] * Hepatitis C Antibody (05/05/2021 11:01 AM EDT) Hepatitis C Antibody Negative Negative [facility] Blood 05/05/2021 11:0 1 AM EDT 05/05/2021 11:08 AM EDT Narrative Resulting Agency Comment Spec In Lab Pasha Wood MD CHEMISTRY ORDERABLES Performing Organization Address [facility] Co de Phone Number [facility] [place] [address] * Hepatitis B Surface Antibody (05/05/2021 11:01 AM EDT) Hepatitis B Surface Antibody, Quantitative <3.5 IU/L [facility] Comment: HepB Surface Ab Quant: Unvaccinated: < 8.5 IU/L Vaccinated: > 11.5 IU/L Hepatitis B Surface Antibody Negative [facility] Comment: Patient is presumed to be not vaccinated or immune to HBV infection. Expected Results: Vaccinated: Positive Unvaccinated: Negative Blood 05/05/2021 11:0 1 AM EDT 05/05/2021 11:08 AM EDT Narrative Resulting Agency Comment Spec In Lab Pasha Wood MD CHEMISTRY ORDERABLES [facility] [place] [address] * Hepatitis B Surface Antigen (05/05/2021 11:01 AM EDT) Hepatitis B Surface Antigen Negative Negative [facility] Blood 05/05/2021 11:0 1 AM EDT 05/05/2021 11:08 AM EDT Narrative Resulting Agency Comment Spec In Lab Pasha Wood MD CHEMISTRY ORDERABLES Performing Organization Address City/[facility]/ZIP Co de Phone Number [facility] [place] [address] * Hepatitis B Core Antibody, Total (05/05/2021 11:01 AM EDT) Hepatitis B Core Antibody Negative Negative [facility] Blood 05/05/2021 11:0 1 AM EDT 05/05/2021 11:08 AM EDT Narrative Resulting Agency Comment Spec In Lab Pasha Wood MD CHEMISTRY ORDERABLES Performing Organization Address City/[facility]/ZIP Co de Phone Number [facility] [place] [address] documented in this encounter Visit Diagnoses Diagnosis Seronegative rheumatoid arthritis Rheumatoid arthritis documented in this encounter Care Teams Clinical Research Scientist Relationship Specialty Start Date End Date Nathalie Bain MD [address] [place] [address] PCP - General Family Medicine 06/28/16 12/20/21 documented as of this encounter
--- OUTSIDE RECORDS SUMMARY | 2024-03-27 20:53 | XMS_ITS | Encounter Summary ---
Author Organization [facility] [place] [address] Care Team Providers Care Hides Inspector Name Role Phone Unavailable Primary Care Provider Unavailabl e Reason for Visit * Reason Comments Follow-up Seronegative rheumat oid arthritis Encounter Details Date Type Department Care Team (Latest Contact Info) Description 10/12/2022 11:00 AM EDT TH Visit (TeleHealth) [place] [address] Pasha Wood MD [facility] [place] [address] Seronegative rheumatoid arthritis Social History Tobacco Use [...] * Patient Instructions* Pasha Wood MD - 10/12/2022 11:00 AM EDT Continue Humira. Continue prednisone 2 mg daily documented in this encounter Progress Notes * Pasha Wood MD - 10/12/2022 11:00 AM EDT This is a telemedicine visit that was performed with the originating site at that patients home address (please see electronic health record for applicable address) and the distant site at my [facility] [place]. Verbal consent to participate in video visit was obtained by Pasha Wood MD or the rooming hair or beauty salon assistant as documented in their note. This visit occurred during the Coronavirus (COVID-19) Public Health Emergency. I discussed with the patient the nature of our telemedicine visits, that: ??? I would evaluate the patient and recommend diagnostics and treatments based on my assessment ??? Our sessions are not being recorded and that personal health information is protected ??? Our team would provide follow up care in person if/when the patient needs it The concept of ???Telemedicine?? has been described to the patient. Patient has been informed of the anticipated benefits and possible risks. Patient understands the information provided regarding telemedicine, has had the opportunity to ask questions about this information, and all questions have been answered to patient's satisfaction. Patient consents for the use of telemedicine in his/her medical care and authorizes the transmission of any relevant medical information to providers and their staff involved inpatient's medical or mental health care. Chief rheumatologic issue: Page Katz is a 71 y.o. female returns today for scheduled in [...] by Dr. Dharmesh Cummings who was a core sucker emeritus at [employer] [facility] [employer]. He confirmed the diagnosis of polymyalgia rheumatica [...] Stiffness in the MCPs especially. 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 Has other aches and pains yet not [...] most recent laboratory tests were done at [facility] 2020. I checked in the electronic [...] pharmacy. She received medication assistance from the archery equipment repairer. She just received her first delivery ofadalimumab. [...] series. 09-15-2021 Interval events: Last visit with al 07-14-2021. First dose of adalimumab was 07-14-2021. [...] Was previously seen by Dr. Bain and [employer] in her office. Had MRI at [facility] about one month ago due to word [...] that the grandkids are back in school. Review of Systems: No fevers. No viral symptoms. Energy is better HEENT: No mouth sores. No facial rash. Hydroxychloroquine stopped due to hair thinning. Diffuse myalgias and arthralgias. No chest pain or palpitations. No cough wheezing or shortness of breath. No upper or lower GI symptoms. Mood is somewhat better Allergies include: Atorvastatin and Fentanyl Current Outpatient [...] mouth. 2 days a week ??? aspirin ([employer] ASPIRIN) 81 mg chewable tablet ??? acetaminophen (TYLENOL) 325 mg Tablet Take 650 mg by mouth every 4 hours as needed for Pain. ??? levothyroxine (SYNTHROID) 150 mcg tablet Take 1 tablet by mouth daily. (Patient not taking: Reported on 09/09/2020) 90 tablet 3 ??? Viywtapzymiek-Ku-Crid-Minerals (ONE-A-DAY WOMENS FORMULA) 27-0.4 mg Tab (Patient not taking: Nosig reported) Allergies Allergen Reactions ??? Atorvastatin Other reaction(s): elevated LFTs ??? Fentanyl Other reaction(s): altered mental status ??? Other [Unclassified Drug] Other (See Comments) Pain Patch(drug unknown) Fentanyl- confused hallucinations Physical Exam: There were no vitals taken for this visit. Telemedicine visit. Televideo ?General appearance and movement: alert, nontoxic. Pleasant and interactive ?HEENT: anicteric sclerae, conjunctivae clear. No facial rash Appropriate speech thought and content. Not examined this visit. . ? Labs: ? 03/29/2011: Rheumatoid factor negative. [...] in 10/10/2012. Assessment: Page Katz is a 71 y.o. female who returns in follow up [...] established with counseling through her primary care office. Plan: Continue adalimumab 40 mg every other week. Continue to try and taper prednisone to a lower dose. I suggested alternate day regimen alternating1 mg with 2 mg for several weeks and then decreasing to 1 mg. 37 minutes total spent on this visit including precharting, review of laboratory, notes from other providers, rihr-uv-gswp interaction, and documentation. documented in this encounter Plan of Treatment Upcoming Encounters Date Type Department Care Team (Late st Contact Info) Description 05/15/2024 1:00 PM EDT TH Visit (TeleHealth) [place] [address] Pasha Wood MD [facility] [place] [address] documented as of this encounter Visit Diagnoses Diagnosis Seronegative rheumatoid arthritis Rheumatoid arthritis documented in this encounter
--- OUTSIDE RECORDS SUMMARY | 2024-03-27 20:53 | XMS_ITS | Encounter Summary ---
Author Organization [facility] [place] [address] Care Team Providers Care Maintenance Service Supervisor Name Role Phone Latha Aguirre MD Primary Care Provider [phone] Reason for Visit * Auth/Cert (Routine) Specialty Diagnoses / Procedures Referred By Justen javier Referred To Contact Diagnoses NSTEMI (non-ST elevated myocardial infarction) NSTEMI Isabelle Ray MD [facility] [place] [address] [facility] Referral ID Status Reason Start Date Expiration Date Visits Re quested Visits Authorized [id number] 1 1 Encounter Details Date Type Department Care Team (Late st Contact Info) Description 07/15/2023 10:55 AM EST - 07/15/2023 11:57 AM EST Surgery Senior [place] [address] Joe Zapata MD [facility] [place] [address] CARDIAC CATHETERIZATION Social History Tobacco Use Types Packs/Day Years Used Date Smoking Tobacco: Never Smokeless Tobacco: Never Alcohol Use Standard Drinks/Week Comments No 0 (1 standard drink = 0.6 oz pur e alcohol) [facility] Inpatient Questions Answer Date Recorded [...] Sign Reading Time Taken Comments Blood Pressure 150/75 07/15/2023 11:53 AM EST Pulse 62 07/15/2023 8:11 AM EST Temperature 36.5 ??C (97.7 ??F) 07/15/2023 8:11 AM ES T Respiratory Rate 16 07/15/2023 8:11 AM EST Oxygen Saturation 99% 07/15/2023 11: 53 AM EST Inhaled Oxygen Concentration - - Weight 91.6 kg (201 lb 15.1 oz) 07/15/2023 4:00 AM EST Height 160 cm (5' 3) 07/14/2023 3:00 PM EST Body Mass Index 35.73 07/14/2023 3:00 PM EST documented in this encounter Discharge Summaries * aKnchan Milner MD - 07/16/2023 9:01 AM EST Inpatient Hospital Medicine - Discharge Summary Patient Name: Paul Adames Patient Age: 72 y.o. Birthdate: 1950 Admit date: 07/14/2023 Discharge date and time: 07/16/2023 Attending Physician: Isabelle Ray MD Follow-up Recommendations for Providers: - Follow up LFTs and myopathies with initiation of rosuvastatin (previous LFT elevations with atorvastatin) - Home celecoxib held in setting of DAPT initiation Discharge Diagnoses (Hospital Problems) and Secondary Diagnoses (Chronic Problems): Active Hospital Problems Diagnosis NSTEMI (non-ST elevated myocardial infarction) Resolved Hospital Problems No resolved problems to display. Operations/Major Procedures: 07/15 [facility] History of Presentation: Paul Adames is a 72-year-old woman with a history of seronegative RA, Crohn's disease s/p colectomy in 2011 with colostomy, hypothyroidism, prior thyroid, endometrial (s/p supracervical hysterectomy), and colon cancer, and anxiety with panic attacks presenting in transfer from [facility] with chest pressure and malaise that started after getting her flu and COVID vaccines. History of Present Illness: Ms. Adames reports that yesterday, she received her flu shot, COVID booster, and her Humira injection, which she gets every two weeks. She was in her usual state of health at that time. About 8 hourslater, she started to feel very weak, with soreness in her arms and a headache. She also developed pressure in her chest. It felt like one of her panic attacks, so she took a Xanax, but the symptoms did not go away. Her panic attack symptoms usually resolve after 30 minutes, but these symptoms lasted hours. She tried to sleep but woke up at 0100 a.m. with ongoing symptoms, so she asked her to bring her to the ED. She denied fevers and chills during this time. Reports some abdominal discomfort and increased watery output from her ostomy. No blood in ostomy output. Good appetite, no nausea or vomiting. No urinary symptoms. Her breathing felt rough while she was having the chest pressure. Chest pressure was not positional or pleuritic, not reproducible to palpation. At [facility], she was hypertensive with SBP in the 180s. Afebrile, HR in the 70s. She was maintaining good saturations on room air. CBC was unremarkable, BMP was notable for BUN 19, Cr 0.8. AST mildly elevated at 54 (has prior fibroscan in 2016 that was normal), ALT 28, alk phos 88. Lipase negative. Troponin was markedly elevated at 8984 (ULN 60) and subsequently downtrended. ProBNP 218. EKG demonstrated lateral T-wave inversions. She was loaded with ASA 324 mg, Plavix 600 mg, and started on a heparin gtt. Rosuvastatin and metoprolol were also started. At [facility], she was feeling okay but somewhat weak, which she says has been chronic for her since her recent episode of flu around Thanksgiving. She reports lack of energy since May. Her chest painhas resolved, and her breathing is comfortable. Ms. Adames lives with her . She has never smoked tobacco and does not drink alcohol. Hospital Course: Paul Adames was hospitalized on the Cardiology service from 07/15/2023 - 07/16/2023. The following issues were addressed: #Type I NSTEMI #HTN #HLD Patient received LHC on 07/15, which revealed no L main disease, mild diffuse (<=25% stenosis) disease of the entire vessel segment of the LAD with w/ long segmental 80% stenosis of mid segment ofLAD that received successful 1x FIDELINA. 80% single discrete stenosis of the ostial segment of the first septal branch of the LAD as well as 55% stenosis of proximal RCA were not intervened upon. Patient continued home ASA 81mg and started clopidogrel 75mg qd. She started metoprolol succinate 25mg qd and rosuvastatin 20mg qd. She was noted to have prior LFT elevations and myopathy with atorvastatin; will trend LFTs as outpatient. Patient denied any chest pain or dyspnea on day of discharge. #seronegative RA Home celecoxib was held during hospitalization and after discharge in setting of DAPT initiation. Continued home prednisone 2mg during hospitalization. Important Studies and Lab Data: Labs: Recent Labs 07/16/23 03207/15/23 0006 07/14/23 1722 WBC 6.6 6.5 6.8 HGB 13.7 14.0 14.9 PLATELET 318 337 353 Recent Labs 07/16/23 0321 07/15/23 0006 07/14/23 1722 NA 140 140 140 K 3.6 3.5 3.7 CL 109* 110* 108* CO2 22 20* 21* BUN 14 11 11 CREATININE 0.69* 0.72 0.59* Recent Labs 07/16/23 0321 07/15/23 0006 07/14/23 1722 AST 32* 47* 58* ALT 24 27 28 ALKPHOS 69 73 81 BILITOT <0.2* 0.4 0.5 BILIDIR -- -- 0.1 Recent Labs 07/16/23 0321 07/15/23 0006 07/14/23 1722 CALCIUM 9.4 9.4 9.7 MAGNESIUM 0.78 0.71 0.66* PHOS 3.4 2.9 2.3* No results for input(s): INR, PT in the last 168 hours. Radiology/Studies: Coronary Angiography: Dominance: Right Left Main The left main was normal, free of disease. Left Anterior Descending There was mild diffuse (<=25% stenosis) disease of the entire vessel segment of the left anterior descending artery (LAD). The mid segment of the LAD had a long segmental 80% stenosis. Distal flow was via the rosebud vessel. There was mild diffuse (<=25% stenosis) disease of the entire vessel segment of the second diagonal branch (Diagonal 2) of the LAD. The Diagonal 2 was moderate in size. There was an 80% single discrete stenosis of the ostial segment of the first septal branch (1st Septal) of the LAD. The 1st Septal was moderate in size. Distal flow was via the rosebud vessel. Left Circumflex There was mild diffuse (<=25% stenosis) disease of the entire vessel segment of the left circumflex artery (LCX). Right Coronary Artery There was mild diffuse (<=25% stenosis) disease of the entire vessel segment of the right coronary artery (RCA) and it was ectatic. The proximal segment of the RCA had a single discrete 55% stenosis. Distal flow was via the rosebud vessel. Left Anterior Descending Artery Mid 80% Stent insertion was performed on the 80% stenosis in the mid segment of the LAD. This was a de frances lesion. According to the ACC/AHA classification system, this lesion was a type B2 moderate risk lesion. Primary prevention of restenosis was the indication for stent insertion. This was the culprit lesion. A guidewire was placed across this lesion. Vessel flow pre intervention was LYNETTE 2. Lesion length was 15mm. Stent insertion was accomplished through a 6 Fr. EBU 3.5 guide. The lesion was predilated with a 2.00mm EUPHORA 15 MM balloon with a maximum inflation pressure of 20 atmospheres. A premounted 2.50 x 22 mm Reggie [place] (FIDELINA) was deployed with a maximum inflation pressure of 22 atmospheres. Following stent deployment, the lesion was dilated using a 2.75mm NC EMERGE 20 MM balloon with a maximum inflation pressure of 20 atmospheres. The final outcome was defined as successful. A coronary arteriolar vasodilator was administered as part of the intervention on this lesion. There was no residual stenosis following this intervention. The final LYNETTE flow was 3. Pending Studies and Lab Data: No current labs Discharge Conditions/Prognosis: Upon discharge the pt is hemodynamically stable, fully ambulatory without requiring supplemental oxygen, holding down food/drink, afebrile and pain free. Discharge to: Home Discharge Medications: Your Medications New Medications Dose Details clopidogreL 75 mg tablet Commonly known as: Plavix Take 1 tablet by mouth daily. 75 mg Quantity: 90 tablet Refills: 3 metoprolol succinate XL 25 mg ER 24 hr tablet Commonly known as: Toprol-XL Take 1 tablet by mouth daily. 25 mg Quantity: 30 tablet Refills: 3 nitroGLYcerin 0.4 mg sublingual tablet Commonly known as: Nitrostat Place 1 tablet under the tongue every 5 minutes as needed for Chest pain. 0.4 mg Quantity: 90 tablet Refills: 12 rosuvastatin 20 mg tablet Commonly known as: Crestor Take 1 tablet by mouth every evening. 20 mg Quantity: 90 tablet Refills: 3 Continued medications with new dosing Dose Details aspirin 81 mg chewable tablet Take 81 mg by mouth daily. Start taking on: July 17, 2023 What changed: See the new instructions. 81 mg Quantity: 30 tablet Refills: 3 Continued medications, unchanged Dose Details ALPRAZolam 0.25 mg tablet Commonly known as: Xanax Take 0.25 mg by mouth nightly as needed for Anxiety. 0.25 mg Refills: 0 amLODIPine 5 mg tablet Commonly known as: Norvasc Take 5 mg by mouth daily. 5 mg Refills: [address] capsule Commonly known as: Cymbalta Take 1 capsule by mouth Daily at Noon. 1 capsule Refills: 0 Humira(CF) Pen 40 mg/0.4 mL Pen Injector Kit Inject 0.4 mLs subcutaneously every 14 days. Indications: rheumatoid arthritis Generic drug: adalimumab 40 mg Quantity: 1 kit Refills: 5 hydroCHLOROthiazide 25 mg tablet Commonly known as: Hydrodiuril Take 25 mg by mouth daily. 25 mg Refills: 0 levothyroxine 125 mcg tablet Commonly known as: Synthroid Take 125 mcg by mouth. 2 days a week 125 mcg Refills: 0 losartan 100 mg tablet Commonly known as: Cozaar Take 100 mg by mouth daily. 100 mg Refills: 0 metroNIDAZOLE 0.75 % Cream Commonly known as: METROCREAM Apply topically as needed. Refills: [address] capsule Commonly known as: PriLOSEC Take 40 mg by mouth daily. 40 mg Refills: 0 One-A-Day Womens Formula 27-0.4 mg Tablet Generic drug: Ncevgvwkcukdm-An-Xxml-Minerals Refills: 0 potassium chloride 10 mEq ER capsule Commonly known as: Klor-Con Sprinkle Take 10 mEq by mouth daily. 10 mEq Refills: 0 predniSONE 1 mg tablet Commonly known as: Deltasone Take 2 tablets by mouth daily for 90 days. 2 mg Quantity: 180 tablet Refills: 1 STOPPED Medications celecoxib 200 mg capsule Commonly known as: CeleBREX Updated Allergies/ADRs: Allergies Allergen Reactions Atorvastatin Other reaction(s): elevated LFTs Fentanyl Other reaction(s): altered mental status Other [Unclassified Drug] Other (See Comments) Pain Patch(drug unknown) Fentanyl- confused hallucinations Instructions Given to Patient at Discharge: Patient Instructions Patient Instructions on Discharge to Home Why you were hospitalized: You had a heart attack, which was caused by a blockage in one of your heart arteries. This was fixed with a stent that was placed during a cardiac catheretization. Call your doctor if your right groin or wrist pain gets worse, or you develop swelling or redness in that area. Also, call your doctor if you develop sudden chest pain or shortness of breath, especially chest pain that does not go away with nitroglycerin. It is important that you take your aspirin 81mg daily forever and clopidogrel 75mg daily for at least 1 year. Do not miss any doses of these medications! Hold home celecoxib pending discussion with your PCP, as this can interact with aspirin/Plavix. When to call your doctor: - Chest pain, worsening shortness of breath, fatigue with usual exertion, or new rest/night time symptoms. - Weigh yourself daily and record; if you note an increase of more than 2-3 pounds in 2 days, or 5 pounds over a week, contact your health care provider. - If you become short of breath, cannot lie down to sleep, or have swelling in your legs/ankles or abdomen, contact your health care provider. - Call if you have reduced urination during the day or increased urination at night. - Call for signs of increased wound drainage, redness, swelling, or increased pain at the site of your cardiac cath. - Call if you develop a temp >100.5 If you have non-emergent questions between now and the time of your follow up appointments: During 8am-5pm Sunday through Sunday call [phone] to speak with a nurse in the cardiology clinic All other times call [phone] and ask to speak to the stem maker distance education director. Home oxygen therapy: N/A Arrangements for VNA/home care: N/A Follow up Appointments: You have an appointment scheduled with Dr. Aguirre on 07/18 at 4pm. Laundry Tub Maker: TBD PCP: Latha Aguirre MD at [phone] Your Inpatient Doctor(s) at [facility]: Isabelle Ray MD - Attending physician Your Primary Care Provider: Latha Aguirre MD [address] [place] [id number] For questions regarding issues relating to your hospitalization on the Hospital Medicine Service, please contact your inpatient physician through the [facility] Loan Auditor [phone]. Issues after hours and on weekends will be handled by the Hospitalist staff on-call. General Instructions None Provider Contact Information: Kanchan [place] [address] Discharge References/Attachments: Discharge References/Attachments None For questions regarding this document or issues relating to this hospitalization on the Medical Service, please contact your inpatient physician through the [facility] Loan Auditor . Issues afterhours and on weekends will be handled by the Hospitalist staff on-call. Signed: Kanchan Milner MD 07/16/2023 documented in this encounter Discharge Instructions * Patient Instructions* Kanchan Milner MD - 07/16/2023 9:53 AM EST Patient Instructions on Discharge to Home Why you were hospitalized: You had a heart attack, which was caused by a blockage in one of your heart arteries. This was fixed with a stent that was placed during a cardiac catheretization. Call your doctor if your right groin or wrist pain gets worse, or you develop swelling or redness in that area. Also, call your doctor if you develop sudden chest pain or shortness of breath, especially chest pain that does not go away with nitroglycerin. It is important that you take your aspirin 81mg daily forever and clopidogrel 75mg daily for at least 1 year. Do not miss any doses of these medications! Hold home celecoxib pending discussion with your PCP, as this can interact with aspirin/Plavix. When to call your doctor: - Chest pain, worsening shortness of breath, fatigue with usual exertion, or new rest/night time symptoms. - Weigh yourself daily and record; if you note an increase of more than 2-3 pounds in 2 days, or 5 pounds over a week, contact your health care provider. - If you become short of breath, cannot lie down to sleep, or have swelling in your legs/ankles or abdomen, contact your health care provider. - Call if you have reduced urination during the day or increased urination at night. - Call for signs of increased wound drainage, redness, swelling, or increased pain at the site of your cardiac cath. - Call if you develop a temp >100.5 If you have non-emergent questions between now and the time of your follow up appointments: During 8am-5pm Sunday through Sunday call [phone] to speak with a nurse in the cardiology clinic All other times call [phone] and ask to speak to the stem maker distance education director. Home oxygen therapy: N/A Arrangements for VNA/home care: N/A Follow up Appointments: You have an appointment scheduled with Dr. Aguirre on 07/18 at 4pm. Laundry Tub Maker: TBLoyda PCP: Latha Aguirre MD at [phone] Your Inpatient Doctor(s) at [facility]: Isabelle Ray MD - Attending physician Your Primary Care Provider: Latha Aguirre MD [address] [place] [address] / [facility] [id number] For questions regarding issues relating to your hospitalization on the Hospital Medicine Service, please contact your inpatient physician through the [facility] Loan Auditor [phone]. Issues after hours and on weekends will be handled by the Hospitalist staff on-call. documented in this encounter Medications at Time of Discharge Medication Sig Dispensed Refills Start Date End Date clopidogreL (Plavix) 75 mg tablet Take 1 [...] (Humira,CF, Pen) 40 mg/0.4 mL Pen Injector KitIndications:rheu matoid arthritis Inject 0.4 mLs subcutaneously every 14 days. Indications: rheumatoid arthritis 1 kit 5 05/31/2022 levothyroxine (SYNTHROID) 125 mcg Tablet Take 125 mcg by mouth daily. 2 days a week Cimxcctlythzp-Um-Ot on-Minerals (ONE-A-DAY WOMENS FORMULA) 27-0.4 mg Tab 08/19/2009 predniSONE (Deltasone) 1 mg tabletIndications:S eronegative rheumatoid arthritis Take 2 tablets by mouth daily for 90 days. 180 tablet 1 06/28/2023 09/26/2023 hydroCHLOROthiazide (Hydrodiuril) 25 mg tablet Take 25 mg by mouth daily. 02/06/2023 11/01/2023 potassium chloride (Klor-Con Sprinkle) 10 mEq ER capsule Take 10 mEq by mouth daily. 02/06/2023 10/31/2023 losartan (COZAAR) 100 mg Tablet Take 100 mg by mouth daily. 11/01/2023 documented as of this encounter Progress Notes * Yazmin Bennett RN - 07/16/2023 12:39 PM EST Patient AOx4 VSS. AVS reviewed with patient, all questions answered. IV removed per protocol, site CDI. Patient stated they have all belongings. Patient wheeled down to discharge lounge via wheelchair by PUBLICITY DIRECTOR, to be driven home by spouse. No services at this time. * Laura Mayorga MD - 07/15/2023 5:35 PM EST Post-Catheterization Progress Note Subjective: Patient denies chest pain, palpitations, dyspnea, light-headedness, and pain in the arm. Objective: Vitals: Last value Range last 8 hrs Temperature Temp: 36.6 ??C (97.9 ??F) Temp: [36.6 ??C (97.9 ??F)] Heart Rate Heart Rate: 66 Heart Rate: [64-69] Blood Pressure BP: 136/65 BP: (136-150)/(65-76) Respiratory Rate Resp: 16 Resp: [15-16] SpO2 SpO2: 98 % SpO2: [98 %-99 %] Gen: NAD, resting comfortably in bed Extremities: R radial access site without hematoma or ecchymosis. No active bleeding. Dressing c/d/i. No tenderness to palpation. Distal sensation and headhunter strength intact. 2+ radial pulse. A/P: S/p cardiac catheterization with benign appearing R radial access site. Laura Mayorga MD Internal Medicine PGY-1 * Isabelle Ray MD - 07/15/2023 6:37 AM EST Inpatient Cardiology Progress Note Patient Name: Paul Adames Date of Admission: 07/14/2023 ( Hospital Day 1 day ) Service: S2 ID:Paul Adames is a 72-year-old woman with a history of seronegative RA, Crohn's disease s/p colectomy in 2012 with colostomy, hypothyroidism, prior thyroid, endometrial (s/p supracervical hysterectomy), and colon cancer, and anxiety with panic attacks presenting in transfer from [facility] with chest pressure and malaise that started after getting her flu and COVID vaccines. Active Problems: Active Hospital Problems Diagnosis NSTEMI (non-ST elevated myocardial infarction) Resolved Hospital Problems No resolved problems to display. 24 hr events: - No acute events overnight -Paul reports feeling back to normal this morning; denies any complaints ROS: Denies CP, SOB, palpitations, PND, Orthopnea, dizziness/LH, LE swelling or pain, n/v, abd pain. Physical Exam: Last value Range last 24 hrs Temperature Temp: 36.7 ??C (98.1 ??F) Temp: [36.7 ??C (98 ??F)-36.8 ??C (98.2 ??F)] Heart Rate Heart Rate: 61 Heart Rate: [61-93] Blood Pressure BP: 133/62 BP: (133-154)/(59-80) Respiratory Rate Resp: 16 Resp: [16] SpO2 SpO2: 98 % SpO2: [98 %-100 %] Weight: Patient Vitals for the past 168 hrs: Weight 07/15/23 0400 91.6 kg (201 lb 15.1 oz) 07/14/23 1500 92.6 kg (204 lb 1.6 oz) Admit Weight: 92.58 kg Yesterday's net I/O's: Intake/Output Summary (Last 24 hours) at 07/15/2023 0637 Last data filed at 07/15/2023 0500 Gross per 24 hour Intake 200 ml Output 700 ml Net -500 ml Net I/O's since admission: Patient Vitals for the past 168 hrs: Weight 07/15/23 0400 91.6 kg (201 lb 15.1 oz) 07/14/23 1500 92.6 kg (204 lb 1.6 oz) Gen: NAD CV: RRR, s1/s2, no m/r/g Resp: CTAB Abd: SNT, non distended Ext: appropriately warm to touch, No edema Neuro: alert and responsive. Without focal deficit Labs Recent Labs 07/15/23 0006 07/14/23 1722 WBC 6.5 6.8 HGB 14.0 14.9 HCT 42.8 45.7 PLATELET 337 353 Recent Labs 07/15/23 0006 07/14/23 1722 NA 140 140 K 3.5 3.7 CL 110* 108* CO2 20* 21* BUN 11 11 CREATININE 0.72 0.59* Recent Labs 07/15/23 0006 07/14/23 1722 AST 47* 58* ALT 27 28 ALKPHOS 73 81 BILITOT 0.4 0.5 BILIDIR -- 0.1 Recent Labs 07/15/23 0006 07/14/23 1722 CALCIUM 9.4 9.7 MAGNESIUM 0.71 0.66* PHOS 2.9 2.3* No results for input(s): INR, PT, PTT in the last 168 hours. No results for input(s): CK, TROPONINT in the last 168 hours. Imaging/Studies: No results found for this visit on 07/14/23. TTE: pending Cardiac Catheterization: pending Micro: Respiratory viral panel negative Assessment: Paul Adames is a 72-year-old woman with a history of seronegative RA, Crohn's disease s/p colectomy in 2011 with colostomy, hypothyroidism, prior thyroid, endometrial (s/p supracervical hysterectomy), and colon cancer, and anxiety with panic attacks presenting in transfer from [facility] w ith chest pressure and malaise that started after getting her flu and COVID vaccines. Given her markedly elevated troponin and T wave inversions on multiple EKGs, Type I NSTEMI is a significant consideration. Reassuringly, she is chest pain free this morning. Will proceed with [facility] today. Continuing DAPT with ASA and Plavix, and will continue rosuvastatin and metoprolol as recommended by consult fellow. Given her ongoing hypertension, will continue her home losartan and amlodipine. Other notable findings include elevated transaminases at OSH, which based on chart review seems to be chronic. She had a normal fibroscan in 2016. Will CTM. PLAN: #NSTEMI #Malaise, myalgia, chest pressure #HTN #HLD - EKG at OSH showed lateral TWI - Also present on EKG at [facility] - Formal TTE pending - Heparin gtt - Continue ASA 81 mg daily - Loaded with 600 mg Plavix at OSH - Continue 75 mg daily - Rosuvastatin 20 mg daily - Continue home losartan 100 mg daily - Continue home amlodipine 5 mg daily - Hold home HCTZ - She was unsure whether she was taking this -[facility] today #Seronegative RA - Humira injections [id number] - Continue prednisone 2 mg daily - Holding celecoxib in setting of DAPT - Tylenol PRN #Anxiety with Panic Attacks - Continue duloxetine 60 mg daily - Alprazolam 0.25 mg PRN for panic attacks #Hypothyroidism - Continue home levothyroxine 125 mcg twice weekly - TSH ordered #Transaminitis, mild - Daily CMP Other: - DVT prophylaxis: heparin gtt - GI prophylaxis: Pantoprazole - Diet: NPO at midnight for [facility] - Dispo: Pending clinical course Code Status: Attempt Cardiopulmonary Resuscitation - Inpatient Laura Mayorga MD Internal Medicine PGY-1 Pager [phone], M1-S2 Service Cardiology Staff Addendum Paul Adames is a 72 y.o. female who presents in transfer for non-STEMI. Strategy early invasive. Proceeded to Senior Program Manager, found LAD stenosis treated with PCI. Has proximal stenosis of a septal branch as well as moderate stenosis of the RCA to be treated medically. Transthoracic echo essentiallyunremarkable, with normal LV function and no segmental wall motion abnormalities. For introduction and optimization of medical therapies with likely discharge to home tomorrow, 07/16. Isabelle Ray MD, FAB, FACC, FACP, FASE Cardiovascular Medicine documented in this encounter H&P Notes * Isabelle Ray MD - 07/14/2023 4:37 PM EST Cardiovascular Medicine Admission History and Physical Patient Name: Paul Adames Service: S2 Team Responsible Attending: Isabelle Ray MD PCP: Latha Aguirre MD PCP phone #: [phone] Outpatient Laundry Tub Maker: N/A ID/Chief Complaint: Paul Adames is a 72-year-old woman with a history of seronegative RA, Crohn's disease s/p colectomy in 2011 with colostomy, hypothyroidism, prior thyroid, endometrial (s/p supracervical hysterectomy), and colon cancer, and anxiety with panic attacks presenting in transfer from [facility] with chest pressure and malaise that started after getting her flu and COVID vaccines. History of Present Illness: Ms. Adames reports that yesterday, she received her flu shot, COVID booster, and her Humira injection, which she gets every two weeks. She was in her usual state of health at that time. About 8 hourslater, she started to feel very weak, with soreness in her arms and a headache. She also developed pressure in her chest. It felt like one of her panic attacks, so she took a Xanax, but the symptoms did not go away. Her panic attack symptoms usually resolve after 30 minutes, but these symptoms lasted hours. She tried to sleep but woke up at 0100 a.m. with ongoing symptoms, so she asked her to bring her to the ED. She denied fevers and chills during this time. Reports some abdominal discomfort and increased watery output from her ostomy. No blood in ostomy output. Good appetite, no nausea or vomiting. No urinary symptoms. Her breathing felt rough while she was having the chest pressure. Chest pressure was not positional or pleuritic, not reproducible to palpation. At [facility], she was hypertensive with SBP in the 180s. Afebrile, HR in the 70s. She was maintaining good saturations on room air. CBC was unremarkable, BMP was notable for BUN 19, Cr 0.8. AST mildly elevated at 54 (has prior fibroscan in 2016 that was normal), ALT 28, alk phos 88. Lipase negative. Troponin was markedly elevated at 8984 (ULN 60) and subsequently downtrended. ProBNP 218. EKG demonstrated lateral T-wave inversions. She was loaded with ASA 324 mg, Plavix 600 mg, and started on a heparin gtt. Rosuvastatin and metoprolol were also started. At [facility], she was feeling okay but somewhat weak, which she says has been chronic for her since her recent episode of flu around . She reports lack of energy since May. Her chest painhas resolved, and her breathing is comfortable. Ms. Adames lives with her . She has never smoked tobacco and does not drink alcohol. Review of Systems: GENERAL HEENT CV PULM All negative All negative All negative All negative Weight loss X Headache X Chest Pain Non-productive cough Weight gain Vision change Palpitations Productive cough Fevers Sinus congestion Orthopnea Wheezing Chills Hoarseness LE edema Hemoptysis Night sweats Epistaxis PND Pleuritic pain X Fatigue Syncope X SOB Claudication [facility] RENAL ENDO GI All negative X All negative X All negative All negative Arthralgias Frequency Heat intolerance Blood in stool X Myalgias Urgency Cold intolerance Dysphagia Weakness Hematuria Polydipsia Odynophagia Stiffness Flank pain Polyphagia X Abdominal discomfort Dysuria Cushingoid Constipation Foamy urine Diarrhea Discharge Nausea/Vomiting LYMPH SKIN NEURO PSYCH X All negative X All negative X All negative All negative Swollen nodes Rash Seizures Depressed affect Tender nodes Ulcers Tremors Occupational stress Diffuse nodes Bruising Spasticity X Anxiety Local nodes Tanned skin Focal weakness Insomnia Night sweats Telangiectasias Diplopia Paresthesias Dizziness Problem List/Past Medical History Patient Active Problem List Diagnosis NSTEMI (non-ST elevated myocardial infarction) Colon cancer Depression Essential hypertension Obesity (BMI 30-39.9) Seronegative rheumatoid arthritis Vitamin D deficiency NAFLD (nonalcoholic fatty liver disease) Endometrial cancer Complex endometrial hyperplasia with atypia S/P thyroidectomy Thyroid cancer Hypothyroidism All Meds: No current facility-administered medications on file prior to encounter. Current Outpatient Medications on File Prior to Encounter Medication Sig Dispense Refill amLODIPine (Norvasc) 5 mg tablet Take 5 mg by mouth daily. ALPRAZolam (Xanax) 0.25 mg tablet Take 0.25 mg by mouth nightly as needed for Anxiety. DULoxetine DR (Cymbalta) [address] capsule Take 1 capsule by mouth Daily at Noon. predniSONE (Deltasone) 1 mg tablet Take 2 tablets by mouth daily for 90 days. 180 tablet 1 celecoxib (CeleBREX) 200 mg capsule Take 200 mg by mouth 2 times daily. hydroCHLOROthiazide (Hydrodiuril) 25 mg tablet Take 25 [...] mcg by mouth. 2 days a week aspirin ([employer] ASPIRIN) 81 mg chewable tablet Mnvbrrwxhpcse-Sf-Fifl-Minerals (ONE-A-DAY WOMENS FORMULA) 27-0.4 mg Tab potassium chloride (Klor-Con Sprinkle) 10 mEq ER capsule Take 10 mEq by mouth daily. Allergies: Allergies Allergen Reactions Atorvastatin Other reaction(s): elevated LFTs Fentanyl Other reaction(s): altered mental status Other [Unclassified Drug] Other (See Comments) Pain Patch(drug unknown) Fentanyl- confused hallucinations Family History: Mother: ASCVD Father: ASCVD Siblings: Sister with ASCVD Social History: Tobacco: Never EtOH: None Illicits: Never Living Situation: Lives with Vocation: Retired Vitals: Last value Range last 24 hrs Temperature Temp: 36.7 ??C (98 ??F) Temp: [36.7 ??C (98 ??F)] Heart Rate Heart Rate: 93 Heart Rate: [93] Blood Pressure BP: 154/80 BP: (154)/(80) Respiratory Rate Resp: 16 Resp: [16] SpO2 SpO2: 100 % SpO2: [100 %] Examination: General: Awake, alert, cooperative with exam, in no apparent distress HEENT: atraumatic and normocephalic; anicteric sclera Cardiovascular: Regular rate and rhythm, normal S1 and S2, 2/6 systolic ejection murmur, no gallops,or rubs; 2+ radial pulse Respiratory: Lungs clear to auscultation bilaterally with good air movement; no wheezes, crackles, or rhonchi, normal work of breathing on room air GI: Abdomen soft, non-tender, and non-distended without rebound or guarding; normoactive bowel sounds; colostomy without surrounding erythema or drainage Extremities: Warm and well perfused, 2+ DP pulses bilaterally, no pitting edema; surgical scar present on left knee Skin: Warm and dry; no rashes, ecchymosis, or lesions Neuro: A&0x3, speech grossly intact Lines: PIV Laboratory: Pending Diagnostic Studies: EKG 07/14/23 at [facility]: Sinus rhythm, rate 82, T-wave inversions in lateral leads EKG 07/14/23 at [facility]: Sinus rhythm, rate 75, T-wave inversions in lateral leads, possible biphasic T in V3 ASSESSMENT: Paul Adames is a 72-year-old woman with a history of seronegative RA, Crohn's disease s/p colectomy in 2011 with colostomy, hypothyroidism, prior thyroid, endometrial (s/p supracervical hysterectomy), and colon cancer, and anxiety with panic attacks presenting in transfer from [facility] with chest pressure and malaise that started after getting her flu and COVID vaccines. Given her markedly elevated troponin and T wave inversions on multiple EKGs, Type I NSTEMI is a significant consideration. Reassuringly, she is now chest pain free and vitals are stable (though mildly hypertensive). Will continue heparin gtt for possible LHC. Continuing DAPT with ASA and Plavix, and will continue rosuvastatin and metoprolol as recommended by consult fellow. Given her ongoing hypertension, will continue her home losartan and amlodipine. The start of her vague symptoms shortly after receiving three vaccines does make me question the possibility of myocarditis, and her symptoms could also be consistent with viral pericarditis (though pain is not positional and no rub was present). Will obtain a formal echo. ESR and CRP pending, as is an RVP to assess for COVID. Other notable findings include elevated transaminases at OSH, which based on chart review seems to be chronic. She had a normal fibroscan in 2016. Will CTM. PLAN: Admit to Cardiology, S2 Team Pager # [phone] #NSTEMI #Malaise, myalgia, chest pressure #Recent vaccinations #HTN #HLD - Troponin 8984 (ULN 60) at OSH - Trend troponins to peak - EKG at OSH showed lateral TWI - Also present on EKG at [facility] - Formal TTE ordered - Heparin gtt - Loaded with ASA 324 mg at OSH - Continue 81 mg daily - Loaded with 600 mg Plavix at OSH - Continue 75 mg daily - Rosuvastatin 20 mg daily - Continue home losartan 100 mg daily - Continue home amlodipine 5 mg daily - Hold home HCTZ - She was unsure whether she was taking this - ESR and CRP ordered - RVP ordered - A1C, lipids, TSH ordered - NPO at midnight for possible LHC #Seronegative RA - Gets Humira injections [id number] - Continue prednisone 2 mg daily - Holding celecoxib in setting of DAPT - Tylenol PRN #Anxiety with Panic Attacks - Continue duloxetine 60 mg daily - Alprazolam 0.25 mg PRN for panic attacks #Hypothyroidism - Continue home levothyroxine 125 mcg twice weekly - TSH ordered #Transaminitis, mild - Daily CMP Other: - DVT prophylaxis: heparin gtt - GI prophylaxis: Pantoprazole - Diet: Heart healthy, then NPO at midnight for LHC - Code Status: Full - Dispo: Pending clinical course Raisa Tang MD PGY-2 Internal Medicine Cardiology Service, #[phone] Cardiology Staff Addendum Paul Adames is a 72 y.o. female who presents in transfer for non-STEMI. Strategy early invasive. Proceeded to Senior Program Manager, found LAD stenosis treated with PCI. Has proximal stenosis of a septal branch as well as moderate stenosis of the RCA to be treated medically. Transthoracic echo essentiallyunremarkable, with normal LV function and no segmental wall motion abnormalities. For introduction and optimization of medical therapies with likely discharge to home tomorrow, 07/16. Isabelle Ray MD, FAB, FACC, FACP, FASE Cardiovascular Medicine documented in this encounter Miscellaneous Notes * Care Management Discharge - Thalia Soto, RN - 07/16/2023 12:00 PM EST CARE MANAGEMENT FINAL DISCHARGE NOTE Chart reviewed, care reviewed with primary team and at interdisciplinary rounds. Patient is medically ready for discharge to home with no services this policy writer sales met with patient and confirmed her ability to navigate the home with out difficulty . Patient feels ready for discharge and is at bed side to escort patient home. Needs for Transition of Care: Plan for discharge is: Home with family Agency Referrals & Follow-up Care: none Transportation: Functional status prior to admission: Independent Home Environment: . .no concerns Accessibility Concerns: . Current Functional Ability: Independent DME used at home: none DME Needed at Discharge: none Patient is insured through: Primary Insurance: MEDICARE Payor: MEDICARE / Plan: MEDICARE PART A & B / Product Type: *No Product type* / Secondary Insurance: [employer] MEDICARE SUPPLEMENT Prescription Coverage: This plan was formulated with input from patient, and team. All are in agreement with plan. I have reviewed the Important Message from Medicare (IMM) with patient. Patient verbalizes understanding of right to appeal this discharge if feeling not medically ready. Offered a copy of this letter. Office of Care Management Surgery Team Central Office Operator [email or web address] Pager #[phone] * Consult Note - Karina Ashton RN - 07/16/2023 11:26 AM EST Cardiac Rehabilitation Inpatient Evaluation Primary Cardiac Diagnosis: NSTEMI, PCI Cardiac Risk Factors: Smoking: no Overweight: yes Hyperlipidemia: no Sedentary: yes HTN: no Family history: yes DM: no Stress: yes Patient Education: Reviewed cardiac cath findings, implications of coronary artery disease, managing angina and risk factor modification. Given parameters for home exercise. Reviewed managing angina /use of sl nitroglycerin. Mediterranean diet guidelines briefly reviewed. Phase II Referral: Participation in the outpatient cardiac rehabilitation program at [facility] was discussed. Patient agrees to a referral to this program. The referral will be sent at discharge and the patient should be contacted by the Program within 1- 2 weeks from discharge. Activity Summary: By discharge, patient will be able to perform self care, walk 5-7 minutes and go up and down stairs without signs or symptoms of ischemia. Activity Baseline Response Walk 2 loops HR 68 78 600 ft BP 132/68 169/73 ECG SR SR rare PVC Symptoms/Comments: Leg fatigue. Otherwise prisca well. Patient lives on single level home * Plan of Care - Valentina Kenyon RN - 07/15/2023 5:29 PM EST OUTCOME EVALUATION NOTE: OUTCOME SUMMARY: Paul Adames is a 72 y.o. female admitted with NSTEMI. PT is A+Ox4 and had no c/o of CP or SOB. TR band removed at 1500 w/ no s/s hematoma or bleeding. Pt is in NSR on tele, see scanned. See flowsheet for I/Os, assessments, and VS. Call carmichael within reach. Bed alarm set. Safety rounds in check. PLAN MOVING FORWARD: Problem: Adult Inpatient Plan of Care Goal: [...] Outcome: Ongoing (Interventions Implemented as Appropriate) Problem: Chest Pain Goal: Resolution of Chest Pain Symptoms Outcome: Ongoing (Interventions Implemented as Appropriate) Problem: Fall Injury Risk Goal: Absence of Fall and Fall-Related Injury Outcome: Ongoing (Interventions Implemented as Appropriate) * Brief Op Note - Joe Zapata MD - 07/15/2023 12:00 PM EST Images from the original note were not included. Preliminary Cardiac Catheterization Procedure Note: Patient Name: Paul Adames : [id number] MR#: [id number] Case Date: 07/15/2023 Loan Auditor: Surgeon(s) and Role: * Joe Zapata MD - Primary * Francisco Garcia MD - Fellow - Assisting Preoperative diagnosis: nstemi Postoperative diagnosis: * NSTEMI * Procedure(s) performed: Coronary angiography Left heart catheterization Stent insertion, coronary Access: right radial A time-out was conducted prior to the start of the procedure to verify the correct patient and procedure, procedure location, and all relevant critical information. Preliminary findings: Right dominant LM: normal LAD: mild diffuse, mid 1 40%, mid 2 75% long segmental Lcx: mild diffuse RCA: proximal 45% LVEDP 10mm Hg Full report to follow. Joe Zapata MD * Plan of Care - Efrem Pink MD - 07/15/2023 8:03 AM EST Images from the original note were not included. Cardiac Catheterization H&P Note HPI Paul Adames is a 72 y.o. female referred for cardiac catheterization by Dr. Ray for evaluation of NSTEMI. Request LHC +/- PCI This is a 72 year old woman with history of seronegative RA, Crohn's disease s/p colectomy , hypothyroidism, endometrial and colon cancer who presented with chest pain. These symptoms happened after getting flu shot, COVID booster, Humira on 07/13. hsTrop 8984 at outside hospital to 489 to 434 here ASA 325, Plavix loaded on 07/14 at outside hospital EKG with lateral Tw inversions Outpatient Medications Marked as Taking for the 07/14/23 encounter (Hospital Encounter) Medication Sig Dispense Refill amLODIPine (Norvasc) 5 mg tablet Take 5 mg by mouth daily. ALPRAZolam (Xanax) 0.25 mg tablet Take 0.25 mg by mouth nightly as needed for Anxiety. DULoxetine DR (Cymbalta) [address] capsule Take 1 capsule by mouth Daily at Noon. predniSONE (Deltasone) 1 mg tablet Take 2 tablets by mouth daily for 90 days. 180 tablet 1 celecoxib (CeleBREX) 200 mg capsule Take 200 mg by mouth 2 times daily. hydroCHLOROthiazide (Hydrodiuril) 25 mg tablet Take 25 [...] mcg by mouth. 2 days a week aspirin ([employer] ASPIRIN) 81 mg chewable tablet Lpmzsczohquth-Ko-Ovcc-Minerals (ONE-A-DAY WOMENS FORMULA) 27-0.4 mg Tab BP 133/62 Pulse 61 Temp 36.7 ??C (98.1 ??F) (Oral) Resp 16 Ht 160 cm (5' 3) Wt 91.6 kg (201 lb 15.1 oz) SpO2 98% BMI 35.77 kg/m?? General - No acute distress. Well-groomed/nourished. Speech is normal HEENT - EOMI. Not jaundiced. Noninjected. Mouth moist without lesions. Respiratory - Clear to auscultation bilaterally. Cardiac - RRR, normal S1/S2, no audible murmur, gallop or rubs. No JOYCE JVD WNL Vasc: 2+ bilat radial. 2+ bilat DP pulses Abdomen - Soft, nontender/nondistended, normal active bowel sounds, neg hsm or masses. Extremities - No clubbing or cyanosis. Pulses intact. Neuro - Limited exam. No deficits. ASA: 4: Patient with severe systemic disease that is a constant threat to life Mallampati: III Labs reviewed and notable for: Lab Results Component Value Date WBC 6.5 07/15/2023 HGB 14.0 07/15/2023 HCT 42.8 07/15/2023 MCV 94.5 (H) 07/15/2023 PLATELET 337 07/15/2023 Lab Results Component Value Date CREATININE 0.72 07/15/2023 BUN 11 07/15/2023 NA 140 07/15/2023 K 3.5 07/15/2023 CL 110 (H) 07/15/2023 CO2 20 (L) 07/15/2023 ECG: A/P Plan for LHC +/- PCI for NSTEMI Differential includes myocarditis, CAD, stress CM The indications, expected benefits, and potential risks of diagnostic or therapeutic catheterization were reviewed in detail with the patient. The potential for , myocardial infarction, arrhythmias, stroke, kidney failure, hemorrhage, allergic reaction to contrast, vascular complications and infection were reviewed in detail. The possibility of stenting and other percutaneous intervention, with associated risk, was reviewed. The possible need for emergent coronary artery bypass surgery wasreviewed. Alternatives were discussed and the patient's questions were answered. Following this discussion, the patient consented to the procedure and signed a form attesting to this. - Proceed as planned - Consent reviewed and signed - No obvious CI to DAPT - Sedation plan: moderate/conscious sedation - FULL CODE Efrem Pink MD [facility] Senior Qa Tester, PGY-6 Pager #[phone] Can Epic message me 7AM-4PM on weekdays for non-urgent matters 07/15/2023 8:04 AM * Plan of Care - Valentina Kenyon RN - 07/14/2023 6:42 PM EST Problem: Adult Inpatient Plan of Care Goal: Plan of Care Review 07/14/20231841 by Valentina Kenyon RN Outcome: Ongoing (Interventions Implemented as Appropriate) 07/14/20231841 by Valentina Kenyon RN Outcome: Ongoing (Interventions Implemented as Appropriate) Goal: Patient-Specific Goal (Individualized) 07/14/20231841 by Valentina Kenyon RN Outcome: Ongoing (Interventions Implemented as Appropriate) 07/14/20231841 by Valentina Kenyon RN Outcome: Ongoing (Interventions Implemented as Appropriate) Goal: Absence of Hospital-Acquired Illness or Injury 07/14/20231841 by Valentina Kenyon RN Outcome: Ongoing (Interventions Implemented as Appropriate) 07/14/20231841 by Valentina Kenyon RN Outcome: Ongoing (Interventions Implemented as Appropriate) Goal: Optimal Comfort and Wellbeing 07/14/20231841 by Valentina Kenyon RN Outcome: Ongoing (Interventions Implemented as Appropriate) 07/14/20231841 by Valentina Kenyon RN Outcome: Ongoing (Interventions Implemented as Appropriate) Goal: Readiness for Transition of Care 07/14/20231841 by Valentina Kenyon RN Outcome: Ongoing (Interventions Implemented as Appropriate) 07/14/20231841 by Valentina Kenyon RN Outcome: Ongoing (Interventions Implemented as Appropriate) Problem: Chest Pain Goal: Resolution of Chest Pain Symptoms 07/14/20231841 by Valentina Kenyon RN Outcome: Ongoing (Interventions Implemented as Appropriate) 07/14/20231841 by Valentina Kenyon RN Outcome: Ongoing (Interventions Implemented as Appropriate) Problem: Fall Injury Risk Goal: Absence of Fall and Fall-Related Injury 07/14/20231841 by Valentina Kenyon RN Outcome: Ongoing (Interventions Implemented as Appropriate) 07/14/20231841 by Valentina Kenyon RN Outcome: Ongoing (Interventions Implemented as Appropriate) documented in this encounter Plan of Treatment Upcoming Encounters Date Type Department Care Team (Late st Contact Info) Description 05/15/2024 1:00 PM EDT TH Visit (TeleHealth) Rheumatology at [facility], [place], [facility] [place] [address] Pasha Wood MD [facility] [place] [address] documented as of this encounter Procedures Procedure Name Priority Date/Time Associated Diagnosis Comments HEMOGRAM Routine 07/16/2023 3:21 AM EST DIFFERENTIAL, AUTOMATED Routine 07/16/20 3:21 AM EST CBC (WITH DIFF) Routine 07/16/2023 3:21 AM EST PHOSPHORUS Routine 07/16/2023 3:21 AM EST MAGNESIUM Routine 07/16/2023 3:21 AM EST COMPREHENSIVE METABOLIC PANEL Routine 07/16/2023 3:21 AM EST CARDIAC CATHETERIZATION Routine 07/15/20 12:15 PM EST NSTEMI (non-ST elevated myocardial infarction) EKG 12-LEAD Routine 07/15/2023 12:09 PM EST NSTEMI (non-ST elevated myocardial infarction) ECHO COMPLETE W CONTRAST Routine 07/15/2023 10:05 AM EST NSTEMI (non-ST elevated myocardial infarction) HEPARIN (UNFRACTIONATED) LEVEL Timed 07/15/2023 6:07 AM EST HEPARIN (UNFRACTIONATED) LEVEL Timed 07/15/2023 12:06 AM EST CMP W/FASTING GLUCOSE Routine 07/15/2023 12:06 AM EST HEMOGRAM Routine 07/15/2023 12:06 AM EST DIFFERENTIAL, AUTOMATED Routine 07/15/20 12:06 AM EST CBC (WITH DIFF) Routine 07/15/2023 12:06 AM EST TRIGLYCERIDE Routine 07/15/2023 12:06 AM EST PHOSPHORUS Routine 07/15/2023 12:06 AM EST MAGNESIUM Routine 07/15/2023 12:06 AM EST LDL CHOLESTEROL, DIRECT Routine 07/15/20 12:06 AM EST HDL/CHOL PROFILE Routine 07/15/2023 12:0 6 AM EST HEMOGLOBIN A1C Routine 07/15/2023 12:06 AM EST TROPONIN - SERIES STAT 07/14/2023 8:2 9 PM EST RESPIRATORY PANEL PCR Routine 07/14/2023 5:30 PM EST TROPONIN - SERIES STAT 07/14/2023 5:2 2 PM EST CRP, ACUTE INFLAMMATION Routine 07/14/20 5:22 PM EST HEMOGRAM Routine 07/14/2023 5:22 PM EST DIFFERENTIAL, AUTOMATED Routine 07/14/20 5:22 PM EST SEDIMENTATION RATE Routine 07/14/2023 5: 22 PM EST CBC (WITH DIFF) Routine 07/14/2023 5:22 PM EST TSH Routine 07/14/2023 5:22 PM EST PHOSPHORUS Routine 07/14/2023 5:22 PM EST PRO-BRAIN NATRIURETIC PEPTIDE Routine 07/14/2023 5:22 PM EST MAGNESIUM Routine 07/14/2023 5:22 PM EST HEPATIC FUNCTION PANEL Routine 5:22 PM EST BASIC METABOLIC PANEL Routine 07/14/2023 5:22 PM EST EKG 12-LEAD Routine 07/14/2023 5:15 PM EST NSTEMI (non-ST elevated myocardial infarction) documented in this encounter Results * (ABNORMAL) Differential, Automated (07/16/2023 3:21 AM EST) Neutrophil % 48.2 % [facility] Neutrophil Absolute 3.19 1.70 - 6.10 x10(3)/mc L [facility] Lymph % 31.3 % [facility] Lymphocytes Abs 2.1 0.9 - 3.2 x10(3)/mc L [facility] Monocyte % 16.0 % [facility] Monocyte Abs 1.1(H) 0.3 - 0.9 x10(3)/mc L [facility] Eos % 3.5 % [facility] Eosinophils Abs 0.2 0.0 - 0.4 x10(3)/mc L [facility] Basophil % 0.5 % [facility] Baso Absolute 0.0 0.0 - 0.1 x10(3)/mc L [facility] Immature Gran % 0.50 % [facility] Comment: Immature granulocytes(IG's)percentage and absolute count will include metamyelocytes, myelocytes, and promyelocytes. Blood smears from CBCs yielding IG's will be scanned manually for concordance. If this scan disagrees with the automated IG or if promyelocytes are noted, a manual differential will be performed. Immature Gran Absolute 0.03 0.00 - 0.04 x10(3)/mc L [facility] Blood 07/16/2023 3:21 AM EST 07/16/2023 3:27 AM EST Narrative Resulting Agency Comment Spec In Lab Raisa Campos MD HEMATOLOGY ORDERAB LES [facility] [place] [address] * (ABNORMAL) Hemogram (07/16/2023 3:21 AM EST) White Blood Cell 6.6 4.0 - 9.5 x10(3)/mc L [facility] Red Blood Cell 4.47 4.00 - 5.21 x10(6)/mc L [facility] Hemoglobin 13.7 11.7 - 15.5 g/dL [facility] Hematocrit 42.5 35.7 - 45.8 % [facility] Mean Cell Volume 95.1(H) 82.6 - 94.4 fL [facility] Mean Cell Hemoglobin 30.6 27.1 - 32.0 pg [facility] Mean Cell Hemoglobin Concentration 32.2 31.7 - 35.0 g/dL [facility] Platelet 318 145 - 357 x10(3)/mc L [facility] RDW Standard Deviation 49.6(H) 37.0 - 46.0 fL [facility] RDW coefficient of variation 14.1 11.5 - 14.1 % [facility] Mean Platelet Volume 8.8 7.6 - 12.9 fL [facility] NRBC% auto 0.0 % [facility] NRBC Absolute 0.000 0.000 - 0.000 x10(3)/mc L [facility] Blood 07/16/2023 3:21 AM EST 07/16/2023 3:27 AM EST Narrative Resulting Agency Comment Spec In Lab Raisa Campos MD HEMATOLOGY ORDERAB LES [facility] [place] [address] * (ABNORMAL) Comprehensive metabolic panel (non-fasting) (07/16/2023 3:21 AM EST) Glucose 94 65 - 199 mg/dL [facility] Comment:Diabetes: >=200 mg/d L plus symptoms Blood Urea Nitrogen 14 8 - 18 mg/dL [facility] Creatinine 0.69(L) 0.70 - 1.20 mg/dL [facility] Sodium 140 135 - 145 mmol/L [facility] Potassium 3.6 3.5 - 5.0 mmol/L [facility] Comment: Please note: ??Patients with WBC >100,000 may have falsely elevated Potassium levels. ??For accurate Potassium quantification in these patients send serum separator tube (gold top) for subsequent determinations. ??Contact the Clinical Chemistry Laboratory if there are any questions. Chloride 109(H) 98 - 107 mmol/L [facility] Carbon Dioxide 22 22 - 31 mmol/L [facility] Anion Gap 9 5 - 15 mmol/L [facility] Calcium 9.4 8.5 - 10.5 mg/dL [facility] Protein, Total 6.1 6.1 - 8.0 g/dL [facility] Albumin 3.4 3.2 - 5.2 g/dL [facility] Aspartate Aminotransferase 32(H) 0 - 30 unit/L [facility] Alanine Aminotransferase 24 0 - 30 unit/L [facility] Alkaline Phosphatase 69 35 - 105 unit/L [facility] Bilirubin, Total <0.2(L) 0.2 - 1.3 mg/dL [facility] Est Glomerular Filtration Rate 92 >=60 mL/min/1. 73 m?? [facility] Comment: This patient's estimated GFR [...] and symptoms in addition to eGFR. Blood 07/16/2023 3:21 AM EST 07/16/2023 3:27 AM EST Narrative Resulting Agency Comment Spec In Lab Isabelle Ray MD CHEMISTRY ORDERABLES Performing Organization Address [facility] de Phone Number [facility] [place] [place] [address] * Magnesium (07/16/2023 3:21 AM EST) Magnesium 0.78 0.69 - 1.07 mmol/L [facility] Blood 07/16/2023 3:21 AM EST 07/16/2023 3:27 AM EST Narrative Resulting Agency Comment Spec In Lab Isabelle Ray MD CHEMISTRY ORDERABLES Performing Organization Address [facility] de Phone Number [facility] [place] [address] * Phosphorus (07/16/2023 3:21 AM EST) Phosphorus 3.4 2.5 - 4.5 mg/dL [facility] Blood 07/16/2023 3:21 AM EST 07/16/2023 3:27 AM EST Narrative Resulting Agency Comment Spec In Lab Isabelle Ray MD CHEMISTRY ORDERABLES Performing Organization Address [facility] Phone Number [facility] [place] [address] * CARDIAC CATHETERIZATION (07/15/2023 12:15 PM EST) Anatomical Region Laterality Modality Other Narrative 07/15/2023 1:57 PM EST ?[facility] ? Cardiac Catheterization/Intervention Report ? Patient Name: Adames, Paul A. ? Procedure Date: 07/15/2023 ? A #: [id number] ? Primary Physician: Jodi, Joe T ? Case #: [id number] ? File Name: [id number] ? Catheterization Order Number: [id number] ? [facility] ? Final Report [place], [place] ? Patient Name: ? Paul A. Adames ? ID#: ?[id number] ? : ?1950 ? Procedure Date: ? July 15, 2023 ?Case #: ? [id number] ? Room: ? 6 ? Case Physician: ? Joe Zapata M.D. ?Start: ?11:16 ?Fellow: ? Francisco Garcia M.D. ? Admission: ??07/14/2023 ? Discharge: ??07/16/2023 ? Referring Physician: ??Elena Pritchard M.D. ? Procedures: ?* Coronary Angiography ?* Left Heart Catheterization ?* Coronary Stent Insertion ? History ?Paul Adames is a 72 year old woman. She has hypertension. The ?patient's smoking status is Never. She is also status post an acute ?non-ST elevation myocardial infarction. Prior to the initiation of this ?procedure, the patient was designated as ASA Class III. The CSHA clinical ?frailty scale is 3: Managing Well. ? Diagnostic Tests: ?Electrocardiography: ? EKG was assessed by ECG. EKG was Abnormal. EKG showed T-wave ? inversions. ?Medications Prior to Procedure: ? Angiotensin II Receptor Marcie and Calcium Channel Blocking Agent. ? Indications for Diagnostic Cath: ?The priority of the diagnostic procedure was Urgent. The indication for ?the laborer beam house visit is ACS less than or equal to 24 hrs. Chest pain ?symptom assessment was: Typical Angina. ? Technique: ?A 6 SLFr sheath was inserted in the right radial artery utilizing the ?Seldinger technique. The left coronary artery was injected utilizing a ?5Fr MIKE RADIAL catheter. A 5Fr MIKE RADIAL catheter was used to inject ?the right coronary artery. Right heart catheterization was performed ?utilizing a 5Fr MIKE RADIAL catheter. Coronary stent insertion was ?performed and the equipment utilized will be described in the ?intervention summary section. 6,500 units of heparin were administered. A ?total of 200cc of Omnipaque were opened, 130cc of Omnipaque were ?administered and 70cc of Omnipaque were wasted. Radiation: Fluoro time ?was 10.1 minutes, dose area product was 43.50 Gy/cm2 and air kerma was ?663 mGY. See the case log for additional details. ?The patient received the following medications prior to and during the ?procedure: ? Unfractionated Heparin and Clopidogrel. ? Hemodynamics: ?Left Heart Pressures ? Resting: ? Syst Diast ? EDP ?a ?v ? m ?Ao 126 ?? 60 ?88 ?LV 131 ? 9 ? Coronary Angiography: ?Dominance: Right ?Left Main ? The left main was normal, free of disease. ?Left Anterior Descending ? There was mild diffuse (<=25% stenosis) disease of the entire vessel ? segment of the left anterior descending artery (LAD). ??The mid ? segment of the LAD had a long segmental 80% stenosis. ??Distal flow ? was via the rosebud vessel. ? There was mild diffuse (<=25% stenosis) disease of the entire vessel ? segment of the second diagonal branch (Diagonal 2) of the LAD. ??The ? Diagonal 2 was moderate in size. ? There was an 80% single discrete stenosis of the ostial segment of ? the first septal branch (1st Septal) of the LAD. ??The 1st Septal was ? moderate in size. ??Distal flow was via the rosebud vessel. ?Left Circumflex ? There was mild diffuse (<=25% stenosis) disease of the entire vessel ? segment of the left circumflex artery (LCX). ?Right Coronary Artery ? There was mild diffuse (<=25% stenosis) disease of the entire vessel ? segment of the right coronary artery (RCA) and it was ectatic. ??The ? proximal segment of the RCA had a single discrete 55% stenosis. ? Distal flow was via the rosebud vessel. ? Indication for Intervention: ?Coronary intervention was indicated for primary therapy for an acute ?myocardial infarction. The priority for the procedure was Elective. The ?NCDR indication for the procedure was NSTE-ACS. Syntax Score was ?Intermediate. ? Intervention Summary: ?Left Anterior Descending Artery ? Mid 80% ? Stent insertion was performed on the 80% stenosis in the mid ? segment of the LAD. This was a de frances lesion. According to ? the ACC/AHA classification system, this lesion was a type B2 ? moderate risk lesion. Primary prevention of restenosis was the ? indication for stent insertion. This was the culprit lesion. A ? guidewire was placed across this lesion. Vessel flow pre ? intervention was LYNETTE 2. Lesion length was 15mm. ? Stent insertion was accomplished through a 6 Fr. EBU 3.5 ? guide. ??The lesion was predilated with a 2.00mm EUPHORA 15 MM ? balloon with a maximum inflation pressure of 20 atmospheres. ? A premounted 2.50 x 22 mm [place] (FIDELINA) was deployed ? with a maximum inflation pressure of 22 atmospheres. ? Following stent deployment, the lesion was dilated using a ? 2.75mm NC EMERGE 20 MM balloon with a maximum inflation ? pressure of 20 atmospheres. ? The final outcome was defined as successful. A coronary ? arteriolar vasodilator was administered as part of the ? intervention on this lesion. There was no residual stenosis ? following this intervention. The final LYNETTE flow was 3. ? Vascular Access: ?Vascular Access Management: ? Mechanical Compression of the right radial artery access site was ? performed. ? Dual Antiplatelet (DAPT) Recommendations: ?Drug eluting stent (FIDELINA) inserted. ?P2Y12 Loading dose administered prior to arrival in the laborer beam house. ?Recommended anti-platelet/anti-thrombotic regimen: ?Continue aspirin 81 mg daily for indefinitely. ?Continue clopidogrel 75 mg daily for 12 months then stop. ?These recommendations are made at the time of the intervention. Patient ?and provider preferences or a changing clinical situation may require ?modification of this regimen. Consult [facility] for ?questions. ?The 1 year bleeding risk as calculated by the PRECISE DAPT score is Low ?risk. ? Conclusions: ?* Two vessel coronary artery disease (LAD and RCA) ?* Successful stent insertion of the mid LAD lesion ?* See Dual Antiplatelet (DAPT) Recommendations above ? Complications/Events: ?The patient had no complications during these procedures. ? Post Procedure Fluid Recommendations: ?IV fluid at 458 mL/hr for 4 hours for a total of 1,832 mL. These ?recommendations are made at the time of the procedure. Patient and ?provider preferences or a changing clinical situation may require ?modification of this regimen. ? Recommendations: ?Based upon the results of this procedure, it was recommended that the ?patient be managed with medical therapy. ? Comments: ?There is moderate to severe proximal RCA stenosis, approximately 65%. ?This does not appear to be the culprit and angiogram does not seem ?severe. Unable to iFR due to technical difficulties. Continue aggressive ?medical management and consider further investigation if patient fails ?medical therapy. ?The attending physician was present for the entire procedure. ?Dr. Joe Zapata M.D. was present during the moderate sedation ?intraservice time as documented by the sedation nurse. ??Case time = 00:44. ?Dr. Joe Zapata M.D. performed the coronary angiography, left heart ?catheterization and stent insertion-coronary. ? Joe Zapata M.D. ? Electronically Signed by: Joe Zapata M.D. ? Report Finalized: 07/15/2023 ??13:50 ? Report Last Ammended: 03/03/2024 ??10:29 ? Procedure Note Joe Zapata MD - 03/03/2024 [facility] Cardiac Catheterization/Intervention Report Patient Name: Paul Adames Procedure Date: 07/15/2023 A #: [id number] Primary Physician: Joe Zapata Case #: [id number] File Name: [id number] Catheterization Order Number: [id number] [facility] FinalReport [place], [place] Patient Name: Paul Adames ID#:[id number] :1950 Procedure Date: July 15, 2023 Case #: [id number] Room: 6 Case Physician: Joe Zapata M.D. Start: 11:16 Fellow: Francisco Garcia M.D. Admission:07/14/2023 Discharge:07/16/2023 Referring Physician: Elena Pritchard M.D. Procedures: * Coronary Angiography * Left Heart Catheterization * Coronary Stent Insertion History Paul Adames is a 72 year old woman. She has hypertension. The patient's smoking status is Never. She is also status post an acute non-ST elevation myocardial infarction. Prior to the initiation ofthis procedure, the patient was designated as ASA Class III. The CSHAclinical frailty scale is 3: Managing Well. Diagnostic Tests: Electrocardiography: EKG was assessed by ECG. EKG was Abnormal. EKG showed T-wave inversions. Medications Prior to Procedure: Angiotensin II Receptor Marcie and Calcium Channel BlockingAgent. Indications for Diagnostic Cath: The priority of the diagnostic procedure was Urgent. The indicationfor the laborer beam house visit is ACS less than or equal to 24 hrs. Chest pain symptom assessment was: Typical Angina. Technique: A 6 SLFr sheath was inserted in the right radial artery utilizingthe Seldinger technique. The left coronary artery was injected utilizinga 5Fr MIKE RADIAL catheter. A 5Fr MIKE RADIAL catheter was used toinject the right coronary artery. Right heart catheterization was performed utilizing a 5Fr MIKE RADIAL catheter. Coronary stent insertion was performed and the equipment utilized will be described in the intervention summary section. 6,500 units of heparin wereadministered. A total of 200cc of Omnipaque were opened, 130cc of Omnipaque were administered and 70cc of Omnipaque were wasted. Radiation: Fluorotime was 10.1 minutes, dose area product was 43.50 Gy/cm2 and air kermawas 663 mGY. See the case log for additional details. The patient received the following medications prior to and duringthe procedure: Unfractionated Heparin and Clopidogrel. Hemodynamics: Left Heart Pressures Resting: Syst Diast EDP a v m Ao 126 60 88 LV 131 9 Coronary Angiography: Dominance: Right Left Main The left main was normal, free of disease. Left Anterior Descending There was mild diffuse (<=25% stenosis) disease of the entirevessel segment of the left anterior descending artery (LAD). The mid segment of the LAD had a long segmental 80% stenosis. Distalflow was via the rosebud vessel. There was mild diffuse (<=25% stenosis) disease of the entirevessel segment of the second diagonal branch (Diagonal 2) of the LAD.The Diagonal 2 was moderate in size. There was an 80% single discrete stenosis of the ostial segmentof the first septal branch (1st Septal) of the LAD. The 1stSeptal was moderate in size. Distal flow was via the rosebud vessel. Left Circumflex There was mild diffuse (<=25% stenosis) disease of the entirevessel segment of the left circumflex artery (LCX). Right Coronary Artery There was mild diffuse (<=25% stenosis) disease of the entirevessel segment of the right coronary artery (RCA) and it was ectatic.The proximal segment of the RCA had a single discrete 55% stenosis. Distal flow was via the rosebud vessel. Indication for Intervention: Coronary intervention was indicated for primary therapy for an acute myocardial infarction. The priority for the procedure was Elective.The NCDR indication for the procedure was NSTE-ACS. Syntax Score was Intermediate. Intervention Summary: Left Anterior Descending Artery Mid 80% Stent insertion was performed on the 80% stenosis in themid segment of the LAD. This was a de frances lesion. Accordingto the ACC/AHA classification system, this lesion was a typeB2 moderate risk lesion. Primary prevention of restenosiswas the indication for stent insertion. This was the culpritlesion. A guidewire was placed across this lesion. Vessel flow pre intervention was LYNETTE 2. Lesion length was 15mm. Stent insertion was accomplished through a 6 Fr. EBU 3.5 guide. The lesion was predilated with a 2.00mm [id number] MM balloon with a maximum inflation pressure of 20atmospheres. A premounted 2.50 x 22 mm [place] (FIDELINA) wasdeployed with a maximum inflation pressure of 22 atmospheres. Following stent deployment, the lesion was dilated usinga 2.75mm NC EMERGE 20 MM balloon with a maximum inflation pressure of 20 atmospheres. The final outcome was defined as successful. A coronary arteriolar vasodilator was administered as part of the intervention on this lesion. There was no residualstenosis following this intervention. The final LYNETTE flow was 3. Vascular Access: Vascular Access Management: Mechanical Compression of the right radial artery access sitewas performed. Dual Antiplatelet (DAPT) Recommendations: Drug eluting stent (FIDELINA) inserted. P2Y12 Loading dose administered prior to arrival in the laborer beam house. Recommended anti-platelet/anti-thrombotic regimen: Continue aspirin 81 mg daily for indefinitely. Continue clopidogrel 75 mg daily for 12 months then stop. These recommendations are made at the time of the intervention.Patient and provider preferences or a changing clinical situation mayrequire modification of this regimen. Consult [facility] Cardiologyfor questions. The 1 year bleeding risk as calculated by the PRECISE DAPT score isLow risk. Conclusions: * Two vessel coronary artery disease (LAD and RCA) * Successful stent insertion of the mid LAD lesion * See Dual Antiplatelet (DAPT) Recommendations above Complications/Events: The patient had no complications during these procedures. Post Procedure Fluid Recommendations: IV fluid at 458 mL/hr for 4 hours for a total of 1,832 mL. These recommendations are made at the time of the procedure. Patient and provider preferences or a changing clinical situation may require modification of this regimen. Recommendations: Based upon the results of this procedure, it was recommended thatthe patient be managed with medical therapy. Comments: There is moderate to severe proximal RCA stenosis, [id number]%. This does not appear to be the culprit and angiogram does not seem severe. Unable to iFR due to technical difficulties. Continueaggressive medical management and consider further investigation if patientfails medical therapy. The attending physician was present for the entire procedure. Dr. Joe Zapata M.D. was present during the moderate sedation intraservice time as documented by the sedation nurse. Case time =00:44. Dr. Joe Zapata M.D. performed the coronary angiography, leftheart catheterization and stent insertion-coronary. Joe Zapata M.D. Electronically Signed by: Joe Zapata M.D. Report Finalized: 07/15/2023 13:50 Report Last Ammended: 03/03/2024 10:29 Joe Zapata MD CARDIAC CATH ORDERAB LES * EKG 12 Lead (07/15/2023 12:09 PM EST) Ventricular rate 70 BPM MUSE SYSTEM Atrial Rate 70 BPM MUSE SYSTEM P-R Interval 152 ms MUSE SYSTEM QRS Duration 90 ms MUSE SYSTEM Q-T Interval 408 ms MUSE SYSTEM QTC Calculated (Bezet) 440 ms MUSE SYSTEM Calculated P Crivitz 67 degrees MUSE SYSTEM Calculated R Crivitz 18 degrees MUSE SYSTEM Calculated T Crivitz 69 degrees MUSE SYSTEM INTERPRETATION Normal sinus rhythm Nonspecific T wave abnormality Abnormal ECG When compared with ECG of 14-JUL-2023 17:15, T wave inversion no longer evident in Lateral leads Confirmed by MD Sosa, Brooks ([id number]) on 07/16/2023 6:55:37 AM MUSE SYSTEM 07/15/2023 12:0 9 PM EST 07/16/2023 6:55 AM EST Isabelle Ray MD ECG ORDERABLES MUSE SYSTEM * ECHO COMPLETE W CONTRAST (07/15/2023 10:05 AM EST) Anatomical Region Laterality Modality Cardiac Other 07/15/2023 8:36 AM EST Narrative 07/15/2023 12:44 PM EST [address] [place] [address] ? Echocardiogram Report Name: PAUL ADAMES ?Study Date: 07/15/2023 08:36 AMBP: 141/66 mmHg ? Patient Location: [address] : 1950 ? Height: 160 cm ? Account: [id number] Age: 72 yrs ? Weight: 92 kg Gender: Female ?BSA: 1.9 m2 Ordering Physician: ISABELLE RAY Referring Physician: ELENA PRITCHARD Performed By: Torrey Hernandez RDCS Reason For Study: NSTEMI (non-ST elevated myocardial infarction) Exam Location: [facility]. Interpretation Summary -Left ventricular systolic function is normal. The left ventricular ejection fraction is 57% by Nichols's biplane. There are no segmental wall motion abnormalities. -The right ventricle is of normal size. Right ventricular systolic function is normal. Unable to estimate PASP. -No significant valve disease. -See report for additional findings. No comparison study is available. Procedure Complete-[id number]. Image enhancement Optison was used for left ventricular opacification. Suboptimal quality. This study is limited because of body habitus. There is normal sinus rhythm. Left Ventricle Left ventricle is of normal size. Wall thickness is normal. There is no left ventricular outflow tract obstruction. There is no ventricular septal defect. Left ventricular systolic function is normal. The left ventricular ejection fraction is 57% by Nichols's biplane. There are no segmental wall motion abnormalities. Right Ventricle The right ventricle is of normal size. Right ventricular systolic function is normal. Left Atrium The left atrium is mildly dilated. There is no evidence for a patent foramen ovale. Right Atrium The right atrium is normal. Aortic Valve The aortic valve is tricuspid. There is calcification of the aortic annulus. There is no aortic stenosis. There is no aortic regurgitation. Mitral Valve The mitral valve leaflets are thickened. There is mitral annular calcification. There is no mitral stenosis. There is trace mitral regurgitation. Tricuspid Valve The tricuspid valve is structurally normal. There is trace tricuspid regurgitation. Pulmonic Valve The pulmonic valve appears to be structurally normal. There is no valvular pulmonic stenosis. There is trace pulmonic valve regurgitation. Great Arteries The diameter at the level of the sinuses of Valsalva is 3.0 cm. The maximum diameter of the proximal ascending aorta is 2.8 cm. Venous Inferior vena cava is normal in size. Inferior vena cava collapse greater than 50% with respiration. Pericardium/Pleural There is no pericardial effusion. A pericardial fat pad is present. Hemodynamics Pulmonary artery hypertension could not be assessed due to inadequate tricuspid regurgitation jet. The estimated right atrial pressure is 3mmHg. Left ventricular filling pressure is indeterminate. Left ventricular diastolic function is abnormal. Ejection Fraction ?2D Measurements ? Volumes EF(MOD-bp): 57.4 % ?IVSd: 1.1 cm ? LAV(MOD- bp) Indexed: ?LVIDd: 4.6 cm ?LVIDs: 2.7 cm ?41.2 ml/m2 ?LVPWd: 1.1 cm ?RA A4Cs_phl: 17.8 cm2 ? EDV(MOD-bp) Indexed: ?LV mass(C)d: 173.6 grams ?LV mass(C)dI: 89.3 grams/m2 ?55.9 ml/m2 ?Ao root diam: 3.0 cm ? ESV(MOD-bp) Indexed: ?Ao root diam index: 1.5 ?23.8 ml/m2 ?asc Aorta Diam: 2.8 cm ?TAPSE_phl: 2.3 cm Doppler MV E max hector: 95.6 cm/sec MV A max hector: 78.3 cm/sec MV E/A: 1.2 MV dec time: 0.19 sec Lat Peak E' Hector: 6.9 cm/sec E/ e' (lat): 13.8 Med Peak E' Hector: 7.5 cm/sec E/e' (med): 12.8 E/e' Average: 13.3 I ?WMSI = 1.00 ? % Normal = 100 ?Segments ??Size X - Cannot ?2 - ?4 - ?1-2 ? small Interpret ?1 - Normal ?? Hypokinetic 3 - Akinetic Dyskinetic ?? 3-5 ? moderate 5 - ? 6-14 ?large Aneurysmal ?15-16 ?? diffuse Procedure Note Isabelle Ray MD - 07/15/2023 [address] [place] [address] Echocardiogram Report Name: PAUL ADAMES Study Date: 308:36 AMBP: 141/66 mmHg Patient Location: [address] : 1950 Height: 160 cm Account: [id number] Age: 72 yrs Weight: 92 kg Gender: Female BSA: 1.9 m2 Ordering Physician: ISABELLE RAY Referring Physician: ELENA PRITCHARD Performed By: Torrey Hernandez RDCS Reason For Study: NSTEMI (non-ST elevated myocardial infarction) Exam Location: [facility]. Interpretation Summary -Left ventricular systolic function is normal. The left ventricularejection fraction is 57% by Nichols's biplane. There are no segmental wall motion abnormalities. -The right ventricle is of normal size. Right ventricular systolicfunction is normal. Unable to estimate PASP. -No significant valve disease. -See report for additional findings. No comparison study is available. Procedure Complete-[id number]. Image enhancement Optison was used for left ventricular opacification. Suboptimal quality. This study is limited because of bodyhabitus. There is normal sinus rhythm. Left Ventricle Left ventricle is of normal size. Wall thickness is normal. There is noleft ventricular outflow tract obstruction. There is no ventricular septaldefect. Left ventricular systolic function is normal. The left ventricular ejectionfraction is 57% by Nichols's biplane. There are no segmental wall motionabnormalities. Right Ventricle The right ventricle is of normal size. Right ventricular systolic functionis normal. Left Atrium The left atrium is mildly dilated. There is no evidence for a patentforamen ovale. Right Atrium The right atrium is normal. Aortic Valve The aortic valve is tricuspid. There is calcification of the aorticannulus. There is no aortic stenosis. There is no aortic regurgitation. Mitral Valve The mitral valve leaflets are thickened. There is mitral annularcalcification. There is no mitral stenosis. There is trace mitral regurgitation. Tricuspid Valve The tricuspid valve is structurally normal. There is trace tricuspid regurgitation. Pulmonic Valve The pulmonic valve appears to be structurally normal. There is novalvular pulmonic stenosis. There is trace pulmonic valve regurgitation. Great Arteries The diameter at the level of the sinuses of Valsalva is 3.0 cm. Themaximum diameter of the proximal ascending aorta is 2.8 cm. Venous Inferior vena cava is normal in size. Inferior vena cava collapse greaterthan 50% with respiration. Pericardium/Pleural There is no pericardial effusion. A pericardial fat pad is present. Hemodynamics Pulmonary artery hypertension could not be assessed due to inadequatetricuspid regurgitation jet. The estimated right atrial pressure is 3mmHg. Leftventricular filling pressure is indeterminate. Left ventricular diastolic functionis abnormal. Ejection Fraction 2D Measurements Volumes EF(MOD-bp): 57.4 % IVSd: 1.1 cm LAV(MOD-bp)Indexed: LVIDd: 4.6 cm LVIDs: 2.7 cm 41.2 ml/m2 LVPWd: 1.1 cm RA A4Cs_phl: 17.8cm2 EDV(MOD-bp)Indexed: LV mass(C)d: 173.6 grams LV mass(C)dI: 89.3 grams/m2 55.9 ml/m2 Ao root diam: 3.0 cm ESV(MOD-bp)Indexed: Ao root diam index: 1.5 23.8 ml/m2 asc Aorta Diam: 2.8 cm TAPSE_phl: 2.3 cm Doppler MV E max hector: 95.6 cm/sec MV A max hector: 78.3 cm/sec MV E/A: 1.2 MV dec time: 0.19 sec Lat Peak E' Hector: 6.9 cm/sec E/ e' (lat): 13.8 Med Peak E' Hector: 7.5 cm/sec E/e' (med): 12.8 E/e' Average: 13.3 I WMSI = 1.00 % Normal = 100 SegmentsSize X - Cannot 2 - 4 - 1-2small Interpret 1 - Normal Hypokinetic 3 - Akinetic Dyskinetic 3-5moderate 5 - 6-14large Aneurysmal 15-16diffuse Isabelle Ray MD ECHO ORDERABLES * Heparin (unfractionated) Level (07/15/2023 6:07 AM EST) UF Heparin 0.57 IU/mL [facility] Comment: Heparin (anti-Xa) levels should be determined in a plasma sample that has been drawn 6 hours after a dose change to approximate steady-state for continuous heparin infusions. Indication specific Heparin (anti-Xa) levels based on order set selection: Acute DVT or PE treatment: 0.3 ? 0.7 IU/mL Thrombosis Prevention (eg. atrial fibrillation, gregorio-procedural bridging, mechanical valves): 0.3 ? 0.7 IU/mL Acute Coronary Syndrome: 0.3 ? 0.7 IU/mL Stroke Indications: 0.3 ? 0.5 IU/mL Ultra-low intensity (select indications in cardiac surgery): 0.1 ? 0.3 IU/mL Blood 07/15/2023 6:07 AM EST 07/15/2023 6:14 AM EST Narrative Resulting Agency Comment Spec In Lab Isabelle Ray MD HEMATOLOGY ORDERABLE S [facility] [place] [address] * (ABNORMAL) CMP w/fasting Glucose (07/15/2023 12:06 AM EST) Glucose Fasting 101(H) 65 - 99 mg/dL [facility] Comment: ?Fasting* Glucose Interpretive Criteria Normal ?65-99 mg/dL Impaired Fasting glucose ?100-125 mg/dL Consistent with Diabetes Mellitus ? >or= 126 mg/dL *Fasting is defined as no caloric intake for at least 8 hours In the absence of unequivocal hyperglycemia a plasma glucose value of >or= 126 mg/dL should be repeated on a subsequent day. Diagnosis and Classification of Diabetes Mellitus, Position Statement from the [place] Diabetes Association. ??Diabetes Care, Volume 33, Supplement 1, Jul 2009 Blood Urea Nitrogen 11 8 - 18 mg/dL [facility] Creatinine 0.72 0.70 - 1.20 mg/dL [facility] Sodium 140 135 - 145 mmol/L [facility] Potassium 3.5 3.5 - 5.0 mmol/L [facility] Comment: Please note: ??Patients with WBC >100,000 may have falsely elevated Potassium levels. ??For accurate Potassium quantification in these patients send serum separator tube (gold top) for subsequent determinations. ??Contact the Clinical Chemistry Laboratory if there are any questions. Chloride 110(H) 98 - 107 mmol/L [facility] Carbon Dioxide 20(L) 22 - 31 mmol/L [facility] Anion Gap 10 5 - 15 mmol/L [facility] Calcium 9.4 8.5 - 10.5 mg/dL [facility] Protein, Total 6.2 6.1 - 8.0 g/dL [facility] Albumin 3.5 3.2 - 5.2 g/dL [facility] Aspartate Aminotransferase 47(H) 0 - 30 unit/L [facility] Alanine Aminotransferase 27 0 - 30 unit/L [facility] Alkaline Phosphatase 73 35 - 105 unit/L [facility] Bilirubin, Total 0.4 0.2 - 1.3 mg/dL [facility] Est Glomerular Filtration Rate 89 >=60 mL/min/1. 73 m?? [facility] Comment: This patient's estimated GFR [...] and symptoms in addition to eGFR. Blood 07/15/2023 12:0 6 AM EST 07/15/2023 12:11 AM EST Narrative Resulting Agency Comment Spec In Lab Raisa Campos MD CHEMISTRY ORDERABL ES [facility] [place] [address] * (ABNORMAL) Differential, Automated (07/15/2023 12:06 AM EST) Neutrophil % 55.8 % [facility] Neutrophil Absolute 3.64 1.70 - 6.10 x10(3)/mc L [facility] Lymph % 24.0 % [facility] Lymphocytes Abs 1.6 0.9 - 3.2 x10(3)/mc L [facility] Monocyte % 15.2 % [facility] Monocyte Abs 1.0(H) 0.3 - 0.9 x10(3)/mc L [facility] Eos % 3.8 % [facility] Eosinophils Abs 0.2 0.0 - 0.4 x10(3)/mc L [facility] Basophil % 0.3 % [facility] Baso Absolute 0.0 0.0 - 0.1 x10(3)/mc L [facility] Immature Gran % 0.90 % [facility] Comment: Immature granulocytes(IG's)percentage and absolute count will include metamyelocytes, myelocytes, and promyelocytes. Blood smears from CBCs yielding IG's will be scanned manually for concordance. If this scan disagrees with the automated IG or if promyelocytes are noted, a manual differential will be performed. Immature Gran Absolute 0.06(H) 0.00 - 0.04 x10(3)/ L [facility] Blood 07/15/2023 12:0 6 AM EST 07/15/2023 12:11 AM EST Narrative Resulting Agency Comment Spec In Lab Raisa Campos MD HEMATOLOGY ORDERAB LES Performing Organization Address City/State/[facility] Co de Phone Number [facility] [place] [address] * (ABNORMAL) Hemogram (07/15/2023 12:06 AM EST) White Blood Cell 6.5 4.0 - 9.5 x10(3)/ L [facility] Red Blood Cell 4.53 4.00 - 5.21 x10(6)/[facility] Hemoglobin 14.0 11.7 - 15.5 g/dL [facility] Hematocrit 42.8 35.7 - 45.8 % [facility] Mean Cell Volume 94.5(H) 82.6 - 94.4 fL [facility] Mean Cell Hemoglobin 30.9 27.1 - 32.0 pg [facility] Mean Cell Hemoglobin Concentration 32.7 31.7 - 35.0 g/dL [facility] Platelet 337 145 - 357 x10(3)/ L [facility] RDW Standard Deviation 49.5(H) 37.0 - 46.0 fL [facility] RDW coefficient of variation 14.2(H) 11.5 - 14.1 % [facility] Mean Platelet Volume 8.9 7.6 - 12.9 fL [facility] NRBC% auto 0.0 % [facility] NRBC Absolute 0.000 0.000 - 0.000 x10(3)/ L [facility] Blood 07/15/2023 12:0 6 AM EST 07/15/2023 12:11 AM EST Narrative Resulting Agency Comment Spec In Lab Raisa Campos MD HEMATOLOGY ORDERAB LES Performing Organization Address City/[facility] Co de Phone Number [facility] [place] [address] * Magnesium (07/15/2023 12:06 AM EST) Magnesium 0.71 0.69 - 1.07 mmol/L [facility] Blood 07/15/2023 12:0 6 AM EST 07/15/2023 12:11 AM EST Narrative Resulting Agency Comment Spec In Lab Isabelle Ray MD CHEMISTRY ORDERABLES Performing Organization Address [facility] de Phone Number [facility] [place] [address] * Phosphorus (07/15/2023 12:06 AM EST) Phosphorus 2.9 2.5 - 4.5 mg/dL [facility] Blood 07/15/2023 12:0 6 AM EST 07/15/2023 12:11 AM EST Narrative Resulting Agency Comment Spec In Lab Isabelle Ray MD CHEMISTRY ORDERABLES Performing Organization Address [facility] de Phone Number [facility] [place] [address] * Heparin (unfractionated) Level (07/15/2023 12:06 AM EST) UF Heparin 0.49 IU/mL [facility] Comment: Heparin (anti-Xa) levels should be determined in a plasma sample that has been drawn 6 hours after a dose change to approximate steady-state for continuous heparin infusions. Indication specific Heparin (anti-Xa) levels based on order set selection: Acute DVT or PE treatment: 0.3 ? 0.7 IU/mL Thrombosis Prevention (eg. atrial fibrillation, gregorio-procedural bridging, mechanical valves): 0.3 ? 0.7 IU/mL Acute Coronary Syndrome: 0.3 ? 0.7 IU/mL Stroke Indications: 0.3 ? 0.5 IU/mL Ultra-low intensity (select indications in cardiac surgery): 0.1 ? 0.3 IU/mL Blood 07/15/2023 12:0 6 AM EST 07/15/2023 12:11 AM EST Narrative Resulting Agency Comment Spec In Lab Isabelle Ray MD HEMATOLOGY ORDERABLE S Performing Organization Address City/[facility] Co de Phone Number [facility] [place] [address] * Triglyceride (07/15/2023 12:06 AM EST) Triglyceride 76 mg/dL [facility] Comment: Average Risk/Lower Risk: <150 mg/dL Borderline High Risk: 150-199 mg/dL High Risk: 200-499 mg/dL Very High Risk: >ob=929 mg/dL Blood 07/15/2023 12:0 6 AM EST 07/15/2023 12:11 AM EST Narrative Resulting Agency Comment Spec In Lab Isabelle Ray MD CHEMISTRY ORDERABLES Performing Organization Address [facility] de Phone Number [facility] [place] [address] * HDL/Cholesterol Profile (07/15/2023 12:06 AM EST) Cholesterol, Total 142 mg/dL [facility] Comment: Lower Risk: <200 mg/dL Average Risk: 200-239 mg/dL Higher Risk: >ss=971 mg/dL HDL Cholesterol 69 mg/dL [facility] Comment: Males: ?? Higher Risk: <40 mg/dL Females: ?? Higher Risk: <50 mg/dL Cholesterol/HDL Ratio 2.1 ratio [facility] Chol/HDL Interpretation See Note [facility] Comment: Lipid management should be guided by a patient? s ASCVD risk, goals and preferences. ACC/AHA Guidelines recommend high intensity statin if clinical ASCVD or LDL greater than or equal to 190 mg/dL. http://tinyurl.com/XHX-HBR-Rjvwtlfkq Measure LDL if Total Cholesterol minus HDL Cholesterol is greater than 220 mg/dL. Adults aged 40-75 with LDL 70-189 mg/dL should have their 10 year ASCVD risk estimated with the ACC/AHA ASCVD risk junior estimator http://tools.acc.org/ZBTTL-Lfjg-Lbvjaszbl/ Statin should be discussed if risk greater [...] Narrative Resulting Agency Comment Spec In Lab Isabelle Ray MD CHEMISTRY ORDERABLES Performing Organization Address [facility] Co de Phone Number [facility] [place] [address] * LDL Cholesterol, Direct (07/15/2023 12:06 AM EST) LDL Cholesterol, Direct 68 mg/dL [facility] Comment: Lowest Risk: <100 mg/dL Lower Risk: 100-129 mg/dL Borderline High Risk: 130-159 mg/dL High Risk: 160-189 mg/dL Very High Risk: >wl=234 mg/dL Blood 07/15/2023 12:0 6 AM EST 07/15/2023 12:11 AM EST Narrative Resulting Agency Comment Spec In Lab Isabelle Ray MD CHEMISTRY ORDERABLES Performing Organization Address [facility] Co de Phone Number [facility] [place] [address] * Hemoglobin A1c (07/15/2023 12:06 AM EST) Hemoglobin A1c 5.6 4.3 - 5.6 % [facility] Comment: Reference Range: 4.3 - 5.6% 5.7 - 6.4% - Increased Risk of Developing Diabetes Mellitus >= 6.5% - Consistent with diagnosis of Diabetes Mellitus In the absence of hyperglycemia (i.e. plasma glucose > 200 mg/dL) or classic symptoms of hyperglycemia a repeat measurement of HbA1c should be performed on a separate sample to confirm the diagnosis. Diagnosis and Classification of Diabetes Mellitus, Diabetes Care 2013; 36: Suppl. 1, Q34-13 Estimated Average Glucose See note mg/dL [facility] Comment: Estimated Average Glucose not appropriate for patients over 70 years of age. Note: The eAG calculation has not been proven valid for women, individuals below 18 years old or above 70 years old, or individuals with hemoglobinopathies. Estimated average glucose (eAG) is calculated from the equation described in: Benjy NATH, Betty J, Sunday R, et al. ??Translating the A1C assay into estimated average glucose values. ??Diabetes Care 2008:31(8):3214-9886. Additional resources are available on the ADA website (diabetes.org). Blood 07/15/2023 12:0 6 AM EST 07/15/2023 12:11 AM EST Narrative Resulting Agency Comment Spec In Lab Isabelle Ray MD CHEMISTRY ORDERABLES [facility] [place] [id number] * (ABNORMAL) Troponin (07/14/2023 8:29 PM EST) Troponin-T, High Sensitivity 434(H) <=14 ng/L [facility] Comment: This patient's troponin T concentration was determined using the Nadine 5th Generation troponin T assay. The 99th percentile for Troponin T for this test is 14 ng/L for females, and 22 ng/L for males. According to the fourth universal definition of myocardial infarction, the term acute myocardial infarction should be used when there is acute myocardial injury with clinical evidence of acute myocardial ischemia and with detection of a rise and/or fall of cardiac troponin values with at least one value above the 99th percentile and at least one of the following: - Symptoms of myocardial ischemia; - New ischemic ECG changes; - Development of pathological Q waves; - Imaging evidence of new loss of viable myocardium or new regional wall motion abnormality in a pattern consistent with an ischemic etiology; - Identification of a coronary thrombus by angiography or autopsy (not for type 2 or 3 MIs) Serial measurement of troponin and the change in troponin concentration over time (delta) is crucial for the diagnosis of acute myocardial infarction. Guidance on the interpretation of the new 5th Generation Troponin T values and the delta troponin value can be found in the [facility] Test Catalog Troponin - [facility] Test Catalog Reference: Fourth [place] Definition of Myocardial Infarction. Journal of the [place] College of Cardiology 2018;72:0071-4236 Blood 07/14/2023 8:29 PM EST 07/14/2023 8:36 PM EST Narrative Resulting Agency Comment Spec In Lab Isabelle Ray MD CHEMISTRY ORDERABLES [facility] [place] [address] * Respiratory Panel PCR (07/14/2023 5:30 PM EST) Respiratory Panel Source [employer] [facility] Respiratory Panel PCR Negative Negative [facility] Comment: Respiratory Panels are performed on the Quest[employer], using multiplexed PCR nucleic acid detection. ??Negative results do not preclude respiratory infection and should not be used as the sole basis for diagnosis, treatment or other management decisions. Adenovirus Not Detected Not Detected [facility] Coronavirus HKU1 Not Detected Not Detected [facility] Coronavirus NL63 Not Detected Not Detected [facility] Coronavirus 229E Not Detected Not Detected [facility] Coronavirus OC43 Not Detected Not Detected [facility] SARS-CoV-2 Not Detected Not Detected [facility] Comment: Testing for SARS-CoV-2 (Severe acute respiratory syndrome coronavirus 2) to aid in the diagnosis of COVID-19 is performed using the BioFire Respiratory Panel 2.1 ([employer]) as authorized by the FDA issued Emergency Use Authorization (EUA). This panel also tests for multiple other viral and bacterial pathogens. This assay is intended for In-vitro Diagnostic (IVD) use with nasopharyngeal swabs in viral transport media. The assay is performed based on the instructions for use and additional guidance provided by the FDA. Testing is performed in laboratories within the [facility], each of which is certified under the Clinical Laboratory Improvement Amendments of 1988 (CLIA), 42 U.S.C. section 263a, to perform high-complexity tests. Assay performance has been verified according to clinical laboratory regulatory requirements. The test result for SARS-CoV-2 provided above should be interpreted in combination with the clinical observation, patient history and epidemiological information. For testing of asymptomatic individuals, assay performance characteristics and clinical utility have not been evaluated. ??A result of Not Detected indicates that the viral RNA target is not present but does not preclude SARS-CoV-2 infection. False negative results may occur if a specimen is improperly collected, transported or handled; if amplification inhibitors are present; or if inadequate numbers of viral particles are present in the specimen. When a diagnostic test is negative, the possibility of a false negative result should be considered in the context of a patient's recent exposures and the presence of clinical signs and symptoms consistent with COVID-19. A result of Detected suggests a current or recent infection. Positive and negative predictive values for this test are dependent on disease prevalence. A result of Invalid indicates the inability to conclusively determine the presence or absence of SARS-CoV-2 RNA in the sample which can be due to a variety of factors. ??Collection of a new sample for repeat testing is recommended in the case of an invalid result. CDC COVID-19 criteria for testing on human specimens and clinical management guidance information are available at the CDC Coronavirus Disease 2019 (COVID-19) webpage under Information for Healthcare Professionals (https://www.cdc.gov/coronavirus/2019-ncov/hcp/index.html). Additional information about this and other EUA tests can be found in provider and patient fact sheets at the following FDA website: https://www.fda.gov/medical-devices/wxqztckdwgj-gbddqnp-1131-nvzbf-00-gmcgkcrbx- use-a whvgnsqplhmnb-rjebcje-shfvtzh/rebdr-muwikvpdsvu-gzqu Human Metapneumovirus Not Detected Not Detected [facility] Human Rhinovirus/Enterov irus Not Detected Not Detected [facility] Influenza A Not Detected Not Detected [facility] Influenza B Not Detected Not Detected [facility] Parainfluenza 1 Not Detected Not Detected [facility] Parainfluenza 2 Not Detected Not Detected [facility] Parainfluenza 3 Not Detected Not Detected [facility] Parainfluenza 4 Not Detected Not Detected [facility] Respiratory Syncytial Virus Not Detected Not Detected [facility] Chlamydophila pneumoniae Not Detected Not Detected [facility] Mycoplasma pneumoniae Not Detected Not Detected [facility] Nasopharyngeal Swab 07/14/20 5:30 PM EST 07/14/2023 5:47 PM EST Narrative Resulting Agency Comment Spec In Lab Isabelle Ray MD MICROBIOLOGY - GENER AL ORDERABLES Performing Organization Address City/[facility]/[place] [address] * Differential, Automated (07/14/2023 5:22 PM EST) Neutrophil % 69.9 % [facility] Neutrophil Absolute 4.76 1.70 - 6.10 x10(3)/[facility] Lymph % 15.1 % [facility] Lymphocytes Abs 1.0 0.9 - 3.2 x10(3)/[facility] Monocyte % 12.3 % [facility] Monocyte Abs 0.8 0.3 - 0.9 x10(3)/[facility] Eos % 2.2 % [facility] Eosinophils Abs 0.2 0.0 - 0.4 x10(3)/[facility] Basophil % 0.1 % [facility] Baso Absolute 0.0 0.0 - 0.1 x10(3)/[facility] Immature Gran % 0.40 % [facility] Comment: Immature granulocytes(IG's)percentage and absolute count will include metamyelocytes, myelocytes, and promyelocytes. Blood smears from CBCs yielding IG's will be scanned manually for concordance. If this scan disagrees with the automated IG or if promyelocytes are noted, a manual differential will be performed. Immature Gran Absolute 0.03 0.00 - 0.04 x10(3)/[facility] Blood 07/14/2023 5:22 PM EST 07/14/2023 5:28 PM EST Narrative Resulting Agency Comment Spec In Lab Raisa Campos MD HEMATOLOGY ORDERAB LES Performing Organization Address [facility] [place] [place] [address] * (ABNORMAL) Hemogram (07/14/2023 5:22 PM EST) White Blood Cell 6.8 4.0 - 9.5 x10(3)/mc L [facility] Red Blood Cell 4.90 4.00 - 5.21 x10(6)/mc L [facility] Hemoglobin 14.9 11.7 - 15.5 g/dL [facility] Hematocrit 45.7 35.7 - 45.8 % [facility] Mean Cell Volume 93.3 82.6 - 94.4 fL [facility] Mean Cell Hemoglobin 30.4 27.1 - 32.0 pg [facility] Mean Cell Hemoglobin Concentration 32.6 31.7 - 35.0 g/dL [facility] Platelet 353 145 - 357 x10(3)/mc L [facility] RDW Standard Deviation 48.9(H) 37.0 - 46.0 fL [facility] RDW coefficient of variation 14.2(H) 11.5 - 14.1 % [facility] Mean Platelet Volume 8.9 7.6 - 12.9 fL [facility] NRBC% auto 0.0 % [facility] NRBC Absolute 0.000 0.000 - 0.000 x10(3)/ L [facility] Blood 07/14/2023 5:22 PM EST 07/14/2023 5:28 PM EST Narrative Resulting Agency Comment Spec In Lab Raisa Campos MD HEMATOLOGY ORDERAB LES Performing Organization Address City/State/[facility] Co de Phone Number [facility] [place] [address] * (ABNORMAL) Troponin (07/14/2023 5:22 PM EST) Troponin-T, High Sensitivity 489(H) <=14 ng/L [facility] Comment: This patient's troponin T concentration was determined using the Nadine 5th Generation troponin T assay. The 99th percentile for Troponin T for this test is 14 ng/L for females, and 22 ng/L for males. According to the fourth universal definition of myocardial infarction, the term acute myocardial infarction should be used when there is acute myocardial injury with clinical evidence of acute myocardial ischemia and with detection of a rise and/or fall of cardiac troponin values with at least one value above the 99th percentile and at least one of the following: - Symptoms of myocardial ischemia; - New ischemic ECG changes; - Development of pathological Q waves; - Imaging evidence of new loss of viable myocardium or new regional wall motion abnormality in a pattern consistent with an ischemic etiology; - Identification of a coronary thrombus by angiography or autopsy (not for type 2 or 3 MIs) Serial measurement of troponin and the change in troponin concentration over time (delta) is crucial for the diagnosis of acute myocardial infarction. Guidance on the interpretation of the new 5th Generation Troponin T values and the delta troponin value can be found in the [facility] Test Catalog Troponin - [facility] Test Catalog Reference: Fourth [place] Definition of Myocardial Infarction. Journal of [employer] [place] [employer] 2018;72:3021-3259 Blood 07/14/2023 5:22 PM EST 07/14/2023 5:28 PM EST Narrative Resulting Agency Comment Spec In Lab Isabelle Ray MD CHEMISTRY ORDERABLES Performing Organization Address City/[facility]/ZIP Co de Phone Number [facility] [place] [address] * (ABNORMAL) CRP, acute inflammation (07/14/2023 5:22 PM EST) C-Reactive Protein 55.4(H) <=4.9 mg/L [facility] Blood 07/14/2023 5:22 PM EST 07/14/2023 5:28 PM EST Narrative Resulting Agency Comment Spec In Lab Isabelle Ray MD CHEMISTRY ORDERABLES Performing Organization Address City/[facility]/ZIP Co de Phone Number [facility] [place] [address] * (ABNORMAL) Sedimentation rate (07/14/2023 5:22 PM EST) Sedimentation Rate Automated 59(H) 3 - 46 mm/hr [facility] Comment: Effective July 09, 2019 new capillary photometric technology has resulted in a change in reference ranges. It is recommended that each ESR result be reviewed with its own age appropriate reference range. Blood 07/14/2023 5:22 PM EST 07/14/2023 5:28 PM EST Narrative Resulting Agency Comment Spec In Lab Isabelle Ray MD HEMATOLOGY ORDERABLE S [facility] [place] [address] * (ABNORMAL) Hepatic Function Panel (07/14/2023 5:22 PM EST) Protein, Total 6.9 6.1 - 8.0 g/dL [facility] Albumin 3.7 3.2 - 5.2 g/dL [facility] Aspartate Aminotransferase 58(H) 0 - 30 unit/L [facility] Alanine Aminotransferase 28 0 - 30 unit/L [facility] Alkaline Phosphatase 81 35 - 105 unit/L [facility] Bilirubin, Total 0.5 0.2 - 1.3 mg/dL [facility] Bilirubin, Direct 0.1 0.0 - 0.3 mg/dL [facility] Blood 07/14/2023 5:22 PM EST 07/14/2023 5:28 PM EST Narrative Resulting Agency Comment Spec In Lab Isabelle Ray MD CHEMISTRY ORDERABLES Performing Organization Address City/[facility]/ZIP Co de Phone Number [facility] [place] [address] * (ABNORMAL) pro-Brain Natriuretic Peptide (07/14/2023 5:22 PM EST) NT-proBNP 377(H) <=124 pg/mL [facility] Blood 07/14/2023 5:22 PM EST 07/14/2023 5:28 PM EST Narrative Resulting Agency Comment Spec In Lab Isabelle Ray MD CHEMISTRY ORDERABLES Performing Organization Address City/[facility]/ZIP Co de Phone Number [facility] [place] [address] * TSH (07/14/2023 5:22 PM EST) Thyroid Stimulating Hormone 3.15 0.27 - 4.20 mcIU/mL [facility] Comment: Reference Interval (mcIU/mL): Females: ??First Trimester: 0.23-3.88 ??Second Trimester: 0.22-3.90 ??Third Trimester: 0.44-4.66 Blood 07/14/2023 5:22 PM EST 07/14/2023 5:28 PM EST Narrative Resulting Agency Comment Spec In Lab Isabelle Ray MD CHEMISTRY ORDERABLES Performing Organization Address [facility] Co de Phone Number [facility] [place] [address] * (ABNORMAL) Phosphorus (07/14/2023 5:22 PM EST) Phosphorus 2.3(L) 2.5 - 4.5 mg/dL [facility] Blood 07/14/2023 5:22 PM EST 07/14/2023 5:28 PM EST Narrative Resulting Agency Comment Spec In Lab Isabelle Ray MD CHEMISTRY ORDERABLES Performing Organization Address [facility] Co de Phone Number [facility] [place] [address] * (ABNORMAL) Magnesium (07/14/2023 5:22 PM EST) Magnesium 0.66(L) 0.69 - 1.07 mmol/L [facility] Blood 07/14/2023 5:22 PM EST 07/14/2023 5:28 PM EST Narrative Resulting Agency Comment Spec In Lab Isabelle Ray MD CHEMISTRY ORDERABLES Performing Organization Address [facility] Co de Phone Number [facility] [place] [address] * (ABNORMAL) Basic Metabolic Panel (non-fasting) (07/14/2023 5:22 PM EST) Glucose 98 65 - 199 mg/dL [facility] Comment:Diabetes: >=200 mg/d L plus symptoms Blood Urea Nitrogen 11 8 - 18 mg/dL [facility] Creatinine 0.59(L) 0.70 - 1.20 mg/dL [facility] Sodium 140 135 - 145 mmol/L [facility] Potassium 3.7 3.5 - 5.0 mmol/L [facility] Comment: Please note: ??Patients with WBC >100,000 may have falsely elevated Potassium levels. ??For accurate Potassium quantification in these patients send serum separator tube (gold top) for subsequent determinations. ??Contact the Clinical Chemistry Laboratory if there are any questions. Chloride 108(H) 98 - 107 mmol/L [facility] Carbon Dioxide 21(L) 22 - 31 mmol/L [facility] Anion Gap 11 5 - 15 mmol/L [facility] Calcium 9.7 8.5 - 10.5 mg/dL [facility] Est Glomerular Filtration Rate 96 >=60 mL/min/1. 73 m?? [facility] Comment: This patient's estimated GFR [...] and symptoms in addition to eGFR. Blood 07/14/2023 5:22 PM EST 07/14/2023 5:28 PM EST Narrative Resulting Agency Comment Spec In Lab Isabelle Ray MD CHEMISTRY ORDERABLES [facility] [place] [address] * EKG 12 Lead (07/14/2023 5:15 PM EST) Ventricular rate 75 BPM MUSE SYSTEM Atrial Rate 75 BPM MUSE SYSTEM P-R Interval 152 ms MUSE SYSTEM QRS Duration 86 ms MUSE SYSTEM Q-T Interval 362 ms MUSE SYSTEM QTC Calculated (Bezet) 404 ms MUSE SYSTEM Calculated P Crivitz 18 degrees MUSE SYSTEM Calculated R Crivitz 22 degrees MUSE SYSTEM Calculated T Crivitz 109 degrees MUSE SYSTEM INTERPRETATION Normal sinus rhythm T wave abnormality, consider lateral ischemia Abnormal ECG No previous ECGs available Confirmed by MD CYR ARMIN ([id number]) on 07/14/2023 8:27:41 PM MUSE SYSTEM 07/14/2023 5:15 PM EST 07/14/2023 8:27 PM EST Isabelle Ray MD ECG ORDERABLES MUSE SYSTEM documented in this encounter Visit Diagnoses Diagnosis NSTEMI (non-ST elevated myocardial infarction)- Primary Acute myocardial infarction, subendocardial infarction, episode of care unspecified NSTEMI (non-ST elevated myocardial infarction) Acute myocardial infarction, subendocardial infarction, episode of care unspecified NSTEMI (non-ST elevated myocardial infarction) Acute myocardial infarction, subendocardial infarction, episode of care unspecified documented in this encounter Admitting Diagnoses Diagnosis NSTEMI (non-ST elevated myocardial infarction) Acute myocardial infarction, subendocardial infarction, episode of care unspecified documented in this encounter Administered Medications Inactive Administered Medications - up to 3 most recent administrations Medication Order MAR Action Action Date Dose Rate Site acetaminophen (Tylenol) tablet 975 mg 975 mg, Oral, EVERY 8 HOURS PRN, Starting on 07/14/23 at 1741, Until 07/16/23 at 1441, Pain, Maximum dose of acetaminophen is 4,000 mg from all sources in 24 hours. When ordered for pain, acetaminophen should be given even when other ordered pain medications are indicated., Routine Given 07/15/2023 8:42 PM EST 975 mg Given 07/15/2023 1:16 PM EST 975 mg ALPRAZolam (Xanax) tablet 0.25 mg 0.25 mg, Oral, NIGHTLY PRN, Starting on 07/14/23 at 1731, Until 07/16/23 at 1441, Anxiety, Routine Given 07/15/2023 9:27 PM EST 0.25 mg amLODIPine (Norvasc) tablet 5 mg 5 mg, Oral, DAILY, First dose on 07/14/23 at 1830, Until Discontinued, Routine Given 07/16/2023 10:15 AM EST 5 mg Given 07/15/2023 8:17 AM EST 5 mg Given 07/14/2023 5:46 PM EST 5 mg aspirin chewable tablet 81 mg 81 mg, Oral, DAILY, First dose on 07/15/23 at 0900, Until Discontinued, Routine Given 07/16/2023 10: 15 AM EST 81 mg Given 07/15/2023 8:16 AM EST 81 mg clopidogreL (Plavix) tablet 75 mg 75 mg, Oral, DAILY, First dose on 07/15/23 at 0900, Until Discontinued, Routine Given 07/16/2023 10: 15 AM EST 75 mg Given 07/15/2023 8:16 AM EST [address] (Cymbalta) capsule 60 mg 60 mg, Oral, DAILY AT NOON, First dose on 07/15/23 at 1200, Until Discontinued, Routine Given 07/16/2023 11: 18 AM EST 60 mg Given 07/15/2023 1:16 PM EST 60 mg heparin (porcine) (1,000 units/mL) injection PRN, Starting on 07/15/23 at 1123, Until 07/15/23 at 1210, Intra-Operative (Intra-Procedure), Routine Given 07/15/2023 11:23 AM EST 6,500 Units levothyroxine (Synthroid) tablet 125 mcg 125 mcg, Oral, TWICE WEEKLY (Once per day on Sunday), First dose on Sun07/16/23 at 0900, Until Discontinued, Routine Given 07/16/2023 10:15 AM EST 125 mcg lidocaine (Xylocaine) 1% (10 mg/mL) injection 3 mg 3 mg (0.3 mL), Subcutaneous, ONCE PRN, 1 dose, Starting on 07/14/23 at 1648, Until Sun07/16/23 at 1441, for discomfort with PIV insertion, Routine losartan (Cozaar) tablet 100 mg 100 mg, Oral, DAILY, First dose on 07/14/23 at 1830, Until Discontinued, Routine Given 07/16/2023 10:14 AM EST 100 mg Given 07/15/2023 8:16 AM EST 100 mg Given 07/14/2023 5:46 PM EST 100 mg metoprolol tartrate (Lopressor) tablet 12.5 mg 12.5 mg, Oral, EVERY 6 HOURS SCHEDULED, First dose on 07/14/23 at 1830, Until Discontinued, Hold for HR < 55, Routine Given 07/16/2023 11:18 AM EST 12. 5 mg Given 07/16/2023 5:44 AM EST 12.5 mg Given 07/16/2023 12:47 AM EST 12.5 mg midazolam (pf) (Versed) (1 mg/mL) multi-dose injection PRN, Starting on 07/15/23 at 1114, Until 07/15/23 at 1210, Intra-Operative (Intra-Procedure), Routine Given 07/15/2023 11:14 AM EST 1 mg multivitamin with minerals (Thera M) tablet 1 tablet 1 tablet, Oral, DAILY, First dose on 07/14/23 at 1830, Until Discontinued, Routine Given 07/16/2023 10:14 AM EST 1 tablet Given 07/15/2023 8:16 AM EST 1 tablet Given 07/14/2023 5:46 PM EST 1 tablet nitroGLYcerin (Nitrostat) disintegrating tablet 0.4 mg 0.4 mg, Sublingual, EVERY 5 MIN PRN, Starting on 07/14/23 at 1648, Until 07/16/23 at 1441, Chest pain, May repeat every 5 minutes for a total of three doses. Notify provider if chest pain not relieved with nitroglycerin. Do not administer nitroglycerin if the patient has received or taken phosphodiesterase (PDE-5) inhibitors such as sildenafil, tadalafil or vardenafil within the last 24 to 72 hours., Routine nitroGLYcerin 100 mcg/mL intracoronary dilution PRN, Starting on 07/15/23 at 1117, Until 07/15/23 at 1210, Intra-Operative (Intra-Procedure), Routine Given 07/15/2023 11:43 AM EST 100 mcg Given 07/15/2023 11:17 AM EST 150 mcg pantoprazole EC (Protonix) tablet 40 mg 40 mg, Oral, DAILY, First dose on 07/14/23 at 1830, Until Discontinued, DO NOT CRUSH OR OPEN, Routine Given 07/16/2023 10:15 AM EST 40 mg Given 07/15/2023 8:16 AM EST 40 mg Given 07/14/2023 5:46 PM EST 40 mg predniSONE (Deltasone) tablet 2 mg 2 mg, Oral, DAILY, First dose on 07/15/23 at 0900, Until Discontinued, Routine Given 07/16/2023 10:14 AM EST 2 mg Given 07/15/2023 8:16 AM EST 2 mg rosuvastatin (Crestor) tablet 20 mg 20 mg, Oral, EVERY EVENING, First dose on 07/15/23 at 1700, Until Discontinued, Routine Given 07/15/2023 5:1 2 PM EST 20 mg sodium chloride 0.9 % (flush) (BD PosiFlush Normal Saline 0.9) flush 5 mL 5 mL, Intravenous, 2 TIMES DAILY, First dose on 07/14/23 at 2100, Until Discontinued, Routine Given 07/16/2023 10:19 AM EST 5 mLs Given 07/15/2023 8:39 PM EST 5 mLs Given 07/15/2023 8:19 AM EST 5 mLs sodium chloride 0.9 % (flush) (BD PosiFlush Normal Saline 0.9) flush 5-20 mL 5-20 mL, Intravenous, EVERY 1 MIN PRN, Starting on 07/14/23 at 1648, Until 07/16/23 at 1441, flush, Flush pertains to all indwelling lines. Flush per protocol found in the job aid using the link provided on this medication record., Routine verapamiL (Isoptin) (2.5 mg/mL) injection PRN, Starting on 07/15/23 at 1117, Until 07/15/23 at 1210, Administer over 2 Minutes, Intra-Operative (Intra-Procedure) Given 07/15/2023 11:[address] 2.5 mg documented in this encounter Active and Recently Administered Medications Times are shown in EST. Scheduled Medication Order 07/14/2023 07/15/2023 07/16/2023 amLODIPine (Norvasc) tablet 5 mg 5 mg, Oral, DAILY, First dose on 07/14/23 at 1830, Until Discontinued, Routine 1746 (Given - Provider: Valentina Kenyon RN) 0817 (Given - Provider: Valentina Kenyon RN) 1015 (Given - Provider: Yazmin Bennett RN) aspirin chewable tablet 81 mg 81 mg, Oral, DAILY, First dose on Sun07/15/23 at 0900, Until Discontinued, Routine 0816 (Given - Provider: Valentina Kenyon RN) 1015 (Given - Provider: Yazmin Bennett RN) clopidogreL (Plavix) tablet 75 mg 75 mg, Oral, DAILY, First dose on Sun07/15/23 at 0900, Until Discontinued, Routine 0816 (Given - Provider: Valentina Kenyon RN) 1015 (Given - Provider: Yazmin Bennett RN) DULoxetine DR (Cymbalta) capsule 60 mg 60 mg, Oral, DAILY AT NOON, First dose on Sun07/15/23 at 1200, Until Discontinued, Routine 1316 (Given - Provider: Valentina Kenyon RN) 1118 (Given - Provider: Yazmin Bennett RN) levothyroxine (Synthroid) tablet 125 mcg 125 mcg, Oral, TWICE WEEKLY (Once per day on Sunday), First dose on Sun07/16/23 at 0900, Until Discontinued, Routine 1015 (Given - Provider: Yazmin Bennett RN) losartan (Cozaar) tablet 100 mg 100 mg, Oral, DAILY, First dose on Sun07/14/23 at 1830, Until Discontinued, Routine 1746 (Given - Provider: Valentina Kenyon RN) 0816 (Given - Provider: Valentina Kenyon RN) 1014 (Given - Provider: Yazmin Bennett, JOSEPH) magnesium oxide (Mag-Ox) tablet 400 mg (COMPLETED) 400 mg, Oral, ONCE, 1 dose, On Sun07/16/23 at 1145, Routine 1118 (Given - Provider: Yazmin Bennett, JOSEPH) magnesium sulfate 2 g in sterile water 50 mL infusion (COMPLETED) 2 g, Intravenous, ONCE, 1 dose, On Sun07/15/23 at 0745, Administer over 120 Minutes 0816 (New Bag - Provider: Valentina Kenyon RN)1016 (Stopped - Provider: Valentina Kenyon RN) metoprolol tartrate (Lopressor) tablet 12.5 mg 12.5 mg, Oral, EVERY 6 HOURS SCHEDULED, First dose on Sun07/14/23 at 1830, Until Discontinued, Hold for HR < 55, Routine 1750 (Given - Provider: Valentina Kenyon RN) 0013 (Given - Provider: Shruthi Le RN)0549 (Given - Provider: Shruthi Le RN)1316 (Given - Provider: Valentina Kenyon RN)1712 (Given - Provider: Valentina Kenyon RN) 0047 (Given - Provider: Shruthi Le RN)0544 (Given - Provider: Shruthi Le RN)1118 (Given - Provider: Yazmin Bennett RN) multivitamin with minerals (Thera M) tablet 1 tablet 1 tablet, Oral, DAILY, First dose on 07/14/23 at 1830, Until Discontinued, Routine 1746 (Given - Provider: Valentina Kenyon RN) 0816 (Given - Provider: Valentina Kenyon RN) 1014 (Given - Provider: Yazmin Bennett RN) pantoprazole EC (Protonix) tablet 40 mg 40 mg, Oral, DAILY, First dose on 07/14/23 at 1830, Until Discontinued, DO NOT CRUSH OR OPEN, Routine 1746 (Given - Provider: Valentina Kenyon RN) 0816 (Given - Provider: Valentina Kenyon RN) 1015 (Given - Provider: Yazmin Bennett RN) potassium chloride ER (Klor-Con M) crystal tablet 40 mEq (COMPLETED) 40 mEq, Oral, ONCE, 1 dose, On 07/16/23 at 0715, potassium chloride ER particle/crystal tablets (Klor-Con M) may be broken in half and each half swallowed separately. Tablets can be dissolved in ~4 ounces of water; allow ~2 minutes to dissolve, stir well and drink immediately. Do not crush, chew, or suck on tablet., Routine 1014 (Given - Provider: Yazmin Bennett RN) predniSONE (Deltasone) tablet 2 mg 2 mg, Oral, DAILY, First dose on Sun07/15/23 at 0900, Until Discontinued, Routine 0816 (Given - Provider: Valentina Kenyon RN) 1014 (Given - Provider: Yazmin Bennett, JOSEPH) rosuvastatin (Crestor) tablet 20 mg 20 mg, Oral, EVERY EVENING, First dose on 07/15/23 at 1700, Until Discontinued, Routine 1712 (Given - Provider: Valentina Kenyon RN) sodium chloride 0.9 % (flush) (BD PosiFlush Normal Saline 0.9) flush 5 mL 5 mL, Intravenous, 2 TIMES DAILY, First dose on 07/14/23 at 2100, Until Discontinued, Routine 2100 (Not Given - Provider: Shruthi Le RN - Reason: Order parameters not met) 08 (Given - Provider: Valentina Kenyon RN)2038 (Given - Provider: Shruthi Le RN) 101 (Given - Provider: Yazmin Bennett, JOSEPH) Continuous Medication Order 07/14/2023 07/15/2023 07/16/2023 heparin (porcine) 50 units/mL in dextrose 5% 500 mL infusion (CANCELED)(Linked Group 1) 0-5,000 Units/hr (0-100 mL/hr), Intravenous, CONTINUOUS, Starting on 07/14/23 at 1745, Until 07/16/23 at 1057, Begin infusion at 1,000 units per hr (12 units/kg/hr). Maximum initial infusion rate is 1,000 units/hr. Infusion doses are rounded to the nearest 50 units. Target Heparin UFH Level (anti-Xa activity) = 0.3 - 0.7 international unit/mL Start adjustment schedule 6 hours after starting infusion. If Heparin UFH Level is: - Less than 0.1 international unit/mL: Administer PRN bolus and increase rate by 350 units per hr (4 units/kg/hr) - 0.1 - 0.19 international unit/mL: Administer PRN bolus and increase rate by 200 units per hr (2 units/kg/hr) - 0.2 - 0.29 international unit/mL: NO BOLUS and increase rate by 200 units per hr (2 units/kg/hr) - 0.3 - 0.7 international unit/mL: No change - 0.71 - 0.79 international unit/mL: NO BOLUS and decrease rate by 100 units per hr (1 units/kg/hr) - 0.8 - 0.99 international unit/mL: NO BOLUS and decrease rate by 200 units per hr (2 units/kg/hr) - Greater than or equal to 1.00 international unit/mL: Hold infusion for 60 minutes then decrease rate by 300 units per hour (3 units/kg/hr) Obtain Heparin UFH Level 6 hours after initiating heparin. Then 6 hours after each dose adjustment. When 2 consecutive Heparin UFH Level within target range of 0.3 - 0.7 international unit/mL, change Heparin UFH Level to once every 24 hours with A.M. labs while on heparin. RN to order required Heparin UFH Level - Per Protocol, Routine 1741 (New Bag - Provider: Maranda Tucker RN) 1100 (Paused - Provider: Valentina Kenyon RN - Comment: paused for cath) sodium chloride 0.9% infusion () 200 mL/hr, Intravenous, CONTINUOUS, Starting on 07/15/23 at 1315, Until 07/15/23 at 1714, Recovery (Recovery-Hospital Unit) 1229 (New Bag - Provider: Benji Heck RN)1630 (Stopped - Provider: Valentina Kenyon RN) PRN Medication Order 07/14/2023 07/15/2023 07/16/2023 acetaminophen (Tylenol) tablet 975 mg 975 mg, Oral, EVERY 8 HOURS PRN, Starting on 07/14/23 at 1741, Until 07/16/23 at 1441, Pain, Maximum dose of acetaminophen is 4,000 mg from all sources in 24 hours. When ordered for pain, acetaminophen should be given even when other ordered pain medications are indicated., Routine 1316 (Given - Provider: Valentina Kenyon RN)2041 (Given - Provider: Shruthi Le RN) ALPRAZolam (Xanax) tablet 0.25 mg 0.25 mg, Oral, NIGHTLY PRN, Starting on 07/14/23 at 1731, Until 07/16/23 at 1441, Anxiety, Routine 2126 (Given - Provider: Filipe Thomas RN) heparin (porcine) (1,000 units/mL) injection (CANCELED) PRN, Starting on 07/15/23 at 1123, Until 07/15/23 at 1210, Intra-Operative (Intra-Procedure), Routine 1123 (Given - Provider: Caitie Wheeler, JOSEPH) lidocaine (Xylocaine) 1% (10 mg/mL) injection 3 mg 3 mg (0.3 mL), Subcutaneous, ONCE PRN, 1 dose, Starting on 07/14/23 at 1648, Until 07/16/23 at 1441, for discomfort with PIV insertion, Routine midazolam (pf) (Versed) (1 mg/mL) multi-dose injection (CANCELED) PRN, Starting on 07/15/23 at 1114, Until 07/15/23 at 1210, Intra-Operative (Intra-Procedure), Routine 1114 (Given - Provider: Janelle Antony RN) nitroGLYcerin (Nitrostat) disintegrating tablet 0.4 mg 0.4 mg, Sublingual, EVERY 5 MIN PRN, Starting on 07/14/23 at 1648, Until 07/16/23 at 1441, Chest pain, May repeat every 5 minutes for a total of three doses. Notify provider if chest pain not relieved with nitroglycerin. Do not administer nitroglycerin if the patient has received or taken phosphodiesterase (PDE-5) inhibitors such as sildenafil, tadalafil or vardenafil within the last 24 to 72 hours., Routine nitroGLYcerin 100 mcg/mL intracoronary dilution (CANCELED) PRN, Starting on 07/15/23 at 1117, Until 07/15/23 at 1210, Intra-Operative (Intra-Procedure), Routine 1117 (Given - Provider: Francisco Garcia MD)1143 (Given - Provider: Joe Zapata MD) perflutren protein-A microsphers (Optison) (0.22 mg/mL) injection 0.6 mL (COMPLETED) 0.6 mL, Intravenous, ONCE PRN, 1 dose, Starting on 07/15/23 at 1005, Until 07/15/23 at 1005, Per Protocol, Routine 1005 (Given - Provider: Torrey Hernandez) sodium chloride 0.9 % (flush) (BD PosiFlush Normal Saline 0.9) flush 5-20 mL 5-20 mL, Intravenous, EVERY 1 MIN PRN, Starting on 07/14/23 at 1648, Until 07/16/23 at 1441, flush, Flush pertains to all indwelling lines. Flush per protocol found in the job aid using the link provided on this medication record., Routine verapamiL (Isoptin) (2.5 mg/mL) injection (CANCELED) PRN, Starting on 07/15/23 at 1117, Until 07/15/23 at 1210, Administer over 2 Minutes, Intra-Operative (Intra-Procedure) 1117 (Given - Provider: Francisco Garcia MD) Linked Groups Order Group 1: heparin (porcine) 50 units/mL in dextrose 5% 500 mL infusion (CANCELED)Jump to med 0-5,000 Units/hr (0-100 mL/hr), Intravenous, CONTINUOUS, Starting on 07/14/23 at 1745, Until 07/16/23 at 1057, Begin infusion at 1,000 units per hr (12 units/kg/hr). Maximum initial infusion rate is 1,000 units/hr. Infusion doses are rounded to the nearest 50 units. Target Heparin UFH Level (anti-Xa activity) = 0.3 - 0.7 international unit/mL Start adjustment schedule 6 hours after starting infusion. If Heparin UFH Level is: - Less than 0.1 international unit/mL: Administer PRN bolus and increase rate by 350 units per hr (4 units/kg/hr) - 0.1 - 0.19 international unit/mL: Administer PRN bolus and increase rate by 200 units per hr (2 units/kg/hr) - 0.2 - 0.29 international unit/mL: NO BOLUS and increase rate by 200 units per hr (2 units/kg/hr) - 0.3 - 0.7 international unit/mL: No change - 0.71 - 0.79 international unit/mL: NO BOLUS and decrease rate by 100 units per hr (1 units/kg/hr) - 0.8 - 0.99 international unit/mL: NO BOLUS and decrease rate by 200 units per hr (2 units/kg/hr) - Greater than or equal to 1.00 international unit/mL: Hold infusion for 60 minutes then decrease rate by 300 units per hour (3 units/kg/hr) Obtain Heparin UFH Level 6 hours after initiating heparin. Then 6 hours after each dose adjustment. When 2 consecutive Heparin UFH Level within target range of 0.3 - 0.7 international unit/mL, change Heparin UFH Level to once every 24 hours with A.M. labs while on heparin. RN to order required Heparin UFH Level - Per Protocol, Routine And heparin (porcine) (1,000 units/mL) injection 0-4,000 Units (CANCELED) 0-4,000 Units, Intravenous, BOLUS PER HEPARIN PROTOCOL, Starting on 07/14/23 at 1650, Until 07/16/23 at 1057, Per Protocol, START ADJUSTMENT SCHEDULE 6 HOURS AFTER STARTING INFUSION Bolus doses are rounded to the nearest 100 units. If Heparin UFH Level is: - Less than 0.1 international unit/mL: Bolus 60 units/kg (Maximum of 4,000 units) = Bolus 4,000 units - 0.1 - 0.19 International unit/mL: Bolus 30 units/kg (Maximum of 2,000 units) = Bolus 2,000 units - Equal to or greater than 0.2 international unit/mL: No Bolus, Routine documented in this encounter Additional Health Concerns Infection Onset Date Last Indicated Resolved Time Rule Out COVID-19 07/14/2023 07/14/2023 07/14/2023 6:44 PM EST Rule Out Respiratory 07/14/2023 07/14/2023 023 6:44 PM EST documented as of this encounter Care Teams Maintenance Service Supervisor Relationship Specialty Start Date End Date Latha Aguirre MD [address] [place] [id number] PCP - General Family Medicine 06/28/23 documented as of this encounter
--- OUTSIDE RECORDS SUMMARY | 2024-03-27 20:53 | XMS_ITS | Encounter Summary ---
[place] [address] Care Team Providers Care Foster Care Therapist Name Role Phone Nathalie Bain MD Primary Care Provider Encounter Details Date Type Department Care Team (Late st Contact Info) Description 06/06/2021 Telephone [place] [phone] Destiny Eaton [facility] Social History Tobacco Use Types Packs/Day [...] encounter Miscellaneous Notes * Telephone Encounter - Destiny Eaton RPH - 06/06/2021 8:59 AM EST [facility], Household Refrigerator Mechanic Assistance Approval Approval Dates: 06/06/21 to 07/29/22 Medication: Humira Household Refrigerator Mechanic: [employer] Patient Notified of Approval: Yes Additional Notes: pt needs to call handicapped teacher if she does not receive a call within 24 to 48 business hours. For any questions relating to this appeal please reach out directly to your section's specialty pharmacist. Destiny Eaton RPH 06/06/21 8:59 AM documented in this encounter Plan of Treatment Upcoming Encounters Date Type Department Care Team (Late st Contact Info) Description 05/15/2024 1:00 PM EDT TH Visit (TeleHealth) [place] [address] Pasha Wood MD [facility] [place] [address] documented as of this encounter Visit Diagnoses Not on filedocumented in this encounter Care Teams Foster Care Therapist Relationship Specialty Start Date End Date Nathalie Bain MD [address] [place], [place] [address]Y [facility] [address] [place] [address] PCP - General Family Medicine 06/28/16 12/20/21 documented as of this encounter
--- OUTSIDE RECORDS SUMMARY | 2024-03-27 20:53 | XMS_ITS | Encounter Summary ---
Author Organization [facility] Address [facility] [place] [address] Care Team Providers Care Community Health Nurse Staff Name Role Phone Latha Aguirre MD Primary Care Provider [phone] Encounter Details Date Type Department Care Team (Late st Contact Info) Description 07/14/2023 External [place] [address] Social History Tobacco Use Types Packs/Day Years Used Date Smoking Tobacco: Never Smokeless Tobacco: Never Alcohol Use Standard Drinks/Week Comments No 0 (1 standard drink = 0.6 oz pur e alcohol) [facility] Inpatient Questions Answer Date Recorded Does [...] PM EDT TH Visit (TeleHealth) [place] [address] Pasha Wood MD [facility] [place] [address] documented as of this encounter Procedures Procedure Name Priority Date/Time Associated Diagnosis Comments ECG SCAN Routine 07/14/2023 6:20 AM EST documented in this encounter Results * Scan Doc: ECG (07/14/2023 6:20 AM EST) Historical Provider MD TRUJILLO MGR SCAN EX T ORDR/RSLT documented in this encounter Visit Diagnoses Not on filedocumented in this encounter Additional Health Concerns Infection Onset Date Last Indicated Resolved Time Rule Out COVID-19 07/14/2023 07/14/2023 07/14/2023 6:44 PM EST Rule Out Respiratory 07/14/2023 07/14/2023 023 6:44 PM EST documented as of this encounter Care Teams Community Health Nurse Staff Relationship Specialty Start Date End Date Latha Aguirre MD [address] [place] [address] [place] [address] PCP - General Family Medicine 06/28/23 documented as of this encounter
--- OUTSIDE RECORDS SUMMARY | 2024-03-27 20:53 | XMS_ITS | Encounter Summary ---
[place] [address] Care Team Providers Care Knitting Machine Tender Name Role Phone Unavailable Primary Care Provider Unavailabl e Reason for Visit * Reason Comments Specialty Pharmacy Review Adalimumab (Hu estiven) Pen 40mg/0.4mL Encounter Details Date Type Department Care Team (Late Contact Info) Description 10/12/2022 Specialty [place] [address] Christine Gomez, [facility] Social History Tobacco Use Types Packs/Day [...] encounter Progress Notes * Christine Gomez - 10/12/2022 11:59 PM EDT The - Specialty Pharmacy has completed a benefits investigation for Pagesavanah Katz to review their eligibility to fill at [facility]. Per patient's medication list they are prescribed Adalimumab (Humira) and the medication is able to be filled at the [facility] but fills with the business relations manager due to cost. documented in this encounter Plan of Treatment Upcoming Encounters Date Type Department Care Team (Late st Contact Info) Description 05/15/2024 1:00 PM EDT TH Visit (TeleHealth) [place] [address] Pasha Wood MD [facility] [place] [address] documented as of this encounter Visit Diagnoses Not on filedocumented in this encounter
--- OUTSIDE RECORDS SUMMARY | 2024-03-27 20:53 | XMS_ITS | Encounter Summary ---
Author Organization [facility] Address [facility] [address] [address] Team Providers Care Drive In Theater Attendant Name Role Phone Unavailable Primary Care Provider Unavailabl e Encounter Details Date Type Department Care Team (Late st Contact Info) Description 11/10/2022 [place] [phone] Destiny Eaton, [facility] Social History Tobacco Use Types Packs/Day [...] PM EDT TH Visit (TeleHealth) [place] [address] Pasha Wood MD [facility] [place] [address] documented as of this encounter Visit Diagnoses Not on filedocumented in this encounter
--- OUTSIDE RECORDS SUMMARY | 2024-03-27 20:53 | XMS_ITS | Encounter Summary ---
[place] [address] Care Team Providers Care Baby Nurse Name Role Phone Nathalie Bain MD Primary Care Provider Encounter Details Date Type Department Care Team (Late st Contact Info) Description 11/01/2021 Telephone [place] [phone] Pasha Wood MD [address] [facility] [address] [facility] [address] [place] [address] Social History Tobacco Use Types Packs/Day Years [...] encounter Miscellaneous Notes * Telephone Encounter - Abril [place] - 11/01/2021 2:28 PM EDT Patient calls to let us know she is getting her blood drawn at [facility] lab. They need new standing orders from Dr Wood in order to complete labs. documented in this encounter Plan of Treatment Upcoming Encounters Date Type Department Care Team (Late st Contact Info) Description 05/15/2024 1:00 PM EDT TH Visit (TeleHealth) [place] [address] Pasha Wood MD [facility] [address] documented as of this encounter Visit Diagnoses Not on filedocumented in this encounter Care Teams Baby Nurse Relationship Specialty Start Date End Date Nathalie Bain MD [address] [place] [address] [address] [place] [address] PCP - General Family Medicine 06/28/16 12/20/21 documented as of this encounter
--- OUTSIDE RECORDS SUMMARY | 2024-03-27 20:53 | XMS_ITS | Encounter Summary ---
[place] [address] Care Team Providers Care Fountain Clerk Name Role Phone Unavailable Primary Care Provider Unavailabl e Encounter Details Date Type Department Care Team (Late st Contact Info) Description 11/17/2022 Telephone [place] [phone] Suzy Argueta RN Social History Tobacco Use Types Packs/Day [...] encounter Miscellaneous Notes * Telephone Encounter - Szuy Argueta RN - 11/17/2022 3:52 PM EDT TC from [facility] Assist regarding patient requesting RX Humira. Last RX was 11/10/2022. Shelly Grant in Phamacy is re-faxing this now. documented in this encounter Plan of Treatment Upcoming Encounters Date Type Department Care Team (Late st Contact Info) Description 05/15/2024 1:00 PM EDT TH Visit (TeleHealth) [place] [phone] Pasha Wood MD [facility] [place] [address] documented as of this encounter Visit Diagnoses Not on filedocumented in this encounter
--- OUTSIDE RECORDS SUMMARY | 2024-03-27 20:53 | XMS_ITS | Encounter Summary ---
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 Dharmesh Cummings who was a dental scheduler emeritus [place] [facility] [place] He confirmed the diagnosis of polymyalgia rheumatica [...] ?RF neg ?CCP neg ?ESR 25 ? 19 Interval events: ?Swelling and pain in the [...] Stiffness in the MCPs especially. Difficulty with loss mitigation specialist. Has other aches and pains yet not [...] June. Also saw Dr. Pasha Govea at [facility] podiatry and had nailbed surgery on [...] most recent laboratory tests were done at [facility] 2020. I checked in the electronic medical [...] pharmacy. She received medication assistance from the mental health worker. She just received her first delivery ofadalimumab. [...] series. 09-15-2021 Interval events: Last visit with nj 07-14-2021. First dose of adalimumab was 07-14-2021. [...] medications. 03-09-2022 Interval Events: Last visit with nj 09-15-2020. First dose of adalimumab was 07-14-2021. 5 injections so far. No sitereactions. Feeling well overall with respect to her joint symptoms Covid vaccinations with Moderna x 4. Had Covid October 2020. Smell and taste have not come back. Was previously seen by Dr. Bain and ENAMEL DRIER in her office. Had MRI at [facility] about one month ago due to word [...] when she is busy. Preparing for holidays. Review of Systems: No fevers. No viral [...] 2 days a week ??? aspirin ([facility] ASPIRIN) 81 mg chewable tablet ??? acetaminophen (TYLENOL) 325 mg Tablet Take 650 mg by mouth every 4 hours as needed for Pain. ??? levothyroxine (SYNTHROID) 150 mcg tablet Take 1 tablet by mouth daily. (Patient not taking: Reported on 09/09/2020) 90 tablet 3 ??? Cpxmixiprcsfo-Ze-Evty-Minerals (ONE-A-DAY WOMENS FORMULA) 27-0.4 mg Tab (Patient [...] rash Appropriate speech thought and content. Not exaqmined this visit. . ? Labs: ? 03/29/2011: [...] rheumatoid arthritis 1. Seronegative rheumatoid arthritis: She is doing much better with adalimumab 40 mg every 2 weeks and increased dose of prednisone 5 mg daily.. Methotrexate was discontinued due to liver function abnormalities in transaminases and diagnosis of nonalcoholic fatty liver disease. She was having significant hair loss and fatigue. She is back on 5 mg of prednisone daily and has intentions of trying to taper this down by 1 mg decrements. I am hopeful that we will be able to continue adalimumab as her biologic DMARD as this is well-tolerated. May also [...] Continue adalimumab 40 mg every other week. Try to taper prednisone down by 1 mg decrements every 1 to 2 weeks. 36 minutes total spent on this visit including precharting, review of laboratory, notes from other providers, [id number] interaction, and documentation. documented in this encounter Plan of Treatment Upcoming Encounters Date Type Department Care Team (Late st Contact Info) Description 05/15/2024 1:00 PM EDT TH Visit (TeleHealth) [place] [address] Pasha Wood MD [facility] [place] [address] documented as of this encounter Visit Diagnoses Diagnosis Seronegative rheumatoid arthritis Rheumatoid arthritis documented in this encounter
--- OUTSIDE RECORDS SUMMARY | 2024-03-27 20:53 | XMS_ITS | Encounter Summary ---
Author Organization [facility] [place] [address] Care Team Providers Care [employer] Social Worker Name Role Phone Unavailable Primary Care Provider Unavailabl e Reason for Visit * Reason Onset Date Comments Medication Refill 05/31/2022 Encounter Details Date Type Department Care Team (Late st Contact Info) Description 05/31/2022 Refill [place] [address] Melinda Parr, JOSEPH Social History Tobacco Use Types Packs/Day Years [...] PM EDT TH Visit (TeleHealth) [place] [address] Pasha Wood MD [facility] [place] [address] documented as of this encounter Visit Diagnoses Not on filedocumented in this encounter
--- OUTSIDE RECORDS SUMMARY | 2024-03-27 20:53 | XMS_ITS | Encounter Summary ---
Author Organization Formerly [facility] [place] [address] Care Team Providers Care Halftone Operator Name Role Phone Latha Aguirre MD Primary Care Provider Reason for Visit * Auth/Cert (Routine) Specialty Diagnoses / Procedures Referred By Justen t Referred To Contact Diagnoses NSTEMI (non-ST elevated myocardial infarction) NSTEMI Isabelle Ray MD [facility] [place] [address] [facility] Referral ID Status Reason Start Date Expiration Date Visits Re quested Visits Authorized [id number] 1 1 Encounter Details Date Type Department Care Team (Latest Contact Info) Description 07/14/2023 4:22 PM EST - 07/16/2023 12:41 PM [facility] Hospital Encounter Heart and Vascular Unit Level 4 [place] [address] Isabelle Ray MD [facility] [place] [address] NSTEMI (non-ST elevated myocardial infarction) Discharge Disposition: Home Social History Tobacco Use Types Packs/Day Years Used Date Smoking Tobacco: Never Smokeless Tobacco: Never Alcohol Use Standard Drinks/Week Comments No 0 (1 standard drink = 0.6 oz pur e alcohol) DH IPV Inpatient Questions Answer Date Recorded [...] Sign Reading Time Taken Comments Blood Pressure 169/73 07/16/2023 11:18 AM EST Pulse 68 07/16/2023 11:18 AM EST Temperature 36.3 ??C (97.3 ??F) 07/16/2023 8:00 AM ES T Respiratory Rate 16 07/16/2023 8:00 AM EST Oxygen Saturation 95% 07/16/2023 8:00 AM EST Inhaled Oxygen Concentration - - Weight 91.5 kg (201 lb 11.5 oz) 07/16/2023 5:00 AM EST Height 160 cm (5' 3) 07/14/2023 3:00 PM EST Body Mass Index 35.73 07/14/2023 3:00 PM EST documented in this encounter Discharge Summaries * Kanchan Milner MD - 07/16/2023 9:01 AM EST [...] resolved problems to display. Operations/Major Procedures: 07/15 [facility] History of Presentation: Paul Adames is a 72-year-old woman with a history of seronegative RA, Crohn's disease s/p colectomy in 2011 with colostomy, hypothyroidism, prior thyroid, endometrial (s/p supracervical hysterectomy), and colon cancer, and anxiety with panic attacks presenting in transfer from [facility] with chest pressure and malaise that [...] or pleuritic, not reproducible to palpation. At [facility], she was hypertensive with SBP in [...] Rosuvastatin and metoprolol were also started. At [facility], she was feeling okay but somewhat weak, [...] Studies and Lab Data: Labs: Recent Labs 07/16/2332007/15/23507/14/23 1722 WBC 6.6 6.5 6.8 HGB 13.7 14.0 14.9 PLATELET 318 337 353 Recent Labs 07/16/2332007/15/23 0006 07/14/23 1722 NA 140 140 140 K 3.6 3.5 3.7 CL 109* 110* 108* CO2 22 20* 21* BUN 14 11 11 CREATININE 0.69* 0.72 0.59* Recent Labs 07/16/2332007/15/23 0006 07/14/23 1722 AST 32* 47* 58* ALT 24 27 28 ALKPHOS 69 73 81 BILITOT <0.2* 0.4 0.5 BILIDIR -- -- 0.1 Recent Labs 07/16/2332007/15/23 0006 07/14/23 1722 CALCIUM 9.4 9.4 9.7 [...] 80% stenosis. Distal flow was via the [place] vessel. There was mild diffuse (<=25% stenosis) disease of the entire vessel segment of the second diagonal branch (Diagonal 2) of the LAD. The Diagonal 2 was moderate in size. There was an 80% single discrete stenosis of the ostial segment of the first septal branch (1st Septal) of the LAD. The 1st Septal was moderate in size. Distal flow was via the [place] vessel. Left Circumflex There was mild diffuse (<=25% stenosis) disease of the entire vessel segment of the left circumflex artery (LCX). Right Coronary Artery There was mild diffuse (<=25% stenosis) disease of the entire vessel segment of the right coronary artery (RCA) and it was ectatic. The proximal segment of the RCA had a single discrete 55% stenosis. Distal flow was via the [place] vessel. Left Anterior Descending Artery Mid 80% [...] A premounted 2.50 x 22 mm [employer] (FIDELINA) was deployed with a maximum inflation [...] Womens Formula 27-0.4 mg Tablet Generic drug: Eqosckwujvxyx-Zm-Gjry-Minerals Refills: 0 potassium chloride 10 mEq ER [...] appointments: During 8am-5pm Sunday through Sunday call [phone] to speak with a nurse in the cardiology clinic All other times call [phone] and ask to speak to the vp medical front office spec. Home oxygen therapy: N/A Arrangements for VNA/home care: N/A Follow up Appointments: You have an appointment scheduled with Dr. Aguirre on 07/18 at 4pm. 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 Issues after hours and on weekends will be handled by the Hospitalist staff on-call. General Instructions None Provider Contact Information: Kan[place] [address] Discharge References/Attachments: Discharge References/Attachments None For questions regarding this document or issues relating to this hospitalization on the Medical Service, please contact your inpatient physician through the [facility] Fabrication Operator . Issues afterhours and on weekends will [...] appointments: During 8am-5pm Sunday through Sunday call [phone] to speak with a nurse in the cardiology clinic All other times call [phone] and ask to speak to the vp medical front office spec. Home oxygen therapy: N/A Arrangements for VNA/home care: N/A Follow up Appointments: You have an appointment scheduled with Dr. Aguirre on 07/18 at 4pm. Metal Casting Trades Worker: RAFI PCP: Latha Aguirre MD at [phone] Your Inpatient Doctor(s) at [facility]: Isabelle Ray MD - Attending physician Your Primary Care Provider: Latha Aguirre MD [address] [place] [address] / [facility] [id number] For questions regarding issues relating to your hospitalization on the Hospital Medicine Service, please contact your inpatient physician through the [facility] Fabrication Operator [phone]. Issues after hours and on weekends will [...] by mouth daily. 2 days a week Tqdmvtywvxnbz-Ji-Sc on-Minerals (ONE-A-DAY WOMENS FORMULA) 27-0.4 mg Tab [...] down to discharge lounge via wheelchair by ENVIRONMENTAL HEALTH MANAGER, to be driven home by spouse. No [...] No tenderness to palpation. 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 2+ radial pulse. A/P: S/p [...] with panic attacks presenting in transfer from [facility] with chest pressure and malaise that [...] with panic attacks presenting in transfer from [facility] w ith chest pressure and malaise that started after getting her flu and COVID vaccines. Given her markedly elevated troponin and T wave inversions on multiple EKGs, Type I NSTEMI is a significant consideration. Reassuringly, she is chest pain free this morning. Will proceed with [facility] today. Continuing DAPT with ASA and Plavix, [...] TWI - Also present on EKG at [facility] - Formal TTE pending - Heparin gtt - Continue ASA 81 mg daily - Loaded with 600 mg Plavix at OSH - Continue 75 mg daily - Rosuvastatin 20 mg daily - Continue home losartan 100 mg daily - Continue home amlodipine 5 mg daily - Hold home HCTZ - She was unsure whether she was taking this -[facility] today #Seronegative RA - Humira injections [id number] - Continue prednisone 2 mg daily - [...] Pantoprazole - Diet: NPO at midnight for [facility] - Dispo: Pending clinical course Code Status: Attempt Cardiopulmonary Resuscitation - Inpatient Laura Mayorga MD Internal Medicine PGY-1 Pager [phone], M1-S2 Service Cardiology Staff Addendum Paul Adames is a 72 y.o. female who presents in transfer for non-STEMI. Strategy early invasive. Proceeded to [employer], found LAD stenosis treated with PCI. Has [...] PCP: Latha Aguirre MD PCP phone #: [phone] Outpatient Metal Casting Trades Worker: N/A ID/Chief Complaint: Paul Adames is a 72-year-old woman with a history of seronegative RA, Crohn's disease s/p colectomy in 2011 with colostomy, hypothyroidism, prior thyroid, endometrial (s/p supracervical hysterectomy), and colon cancer, and anxiety with panic attacks presenting in transfer from [facility] with chest pressure and malaise that [...] or pleuritic, not reproducible to palpation. At [facility], she was hypertensive with SBP in [...] Rosuvastatin and metoprolol were also started. At [facility], she was feeling okay but somewhat weak, [...] mouth. 2 days a week aspirin ([employer] ASPIRIN) 81 mg chewable tablet Opaontqscmtjk-Bz-Lqrp-Minerals (ONE-A-DAY WOMENS FORMULA) 27-0.4 mg Tab potassium [...] Laboratory: Pending Diagnostic Studies: EKG 07/14/23 at [facility]: Sinus rhythm, rate 82, T-wave inversions in lateral leads EKG 07/14/23 at [facility]: Sinus rhythm, rate 75, T-wave inversions in lateral leads, possible biphasic T in V3 ASSESSMENT: Paul Adames is a 72-year-old woman with a history of seronegative RA, Crohn's disease s/p colectomy in 2011 with colostomy, hypothyroidism, prior thyroid, endometrial (s/p supracervical hysterectomy), and colon cancer, and anxiety with panic attacks presenting in transfer from [facility] with chest pressure and malaise that [...] Admit to Cardiology, S2 Team Pager # [phone] #NSTEMI #Malaise, myalgia, chest pressure #Recent vaccinations #HTN #HLD - Troponin 8984 (ULN 60) at OSH - Trend troponins to peak - EKG at OSH showed lateral TWI - Also present on EKG at [facility] - Formal TTE ordered - Heparin gtt [...] LHC #Seronegative RA - Gets Humira injections [id number] - Continue prednisone 2 mg daily - [...] Tang MD PGY-2 Internal Medicine Cardiology Service, #[id number] Cardiology Staff Addendum Paul Adames is a 72 y.o. female who presents in transfer for non-STEMI. Strategy early invasive. Proceeded to [employer], found LAD stenosis treated with PCI. Has [...] discharge to home with no services this contract technical writer met with patient and confirmed her ability [...] letter. Office of Care Management Surgery Team Fish Filleter [email or web address] Pager #[phone] * Consult Note - Karina Ashton RN [...] in the outpatient cardiac rehabilitation program at [facility] was discussed. Patient agrees to a [...] Procedure Note: Patient Name: Paul Adames : [id number] MR#: [id number] Case Date: 07/15/2023 Fabrication Operator: Surgeon(s) and Role: * Joe Zapata MD [...] ([employer] ASPIRIN) 81 mg chewable tablet Kiectbepwszxr-Es-Oxhd-Minerals (ONE-A-DAY WOMENS FORMULA) 27-0.4 mg Tab BP [...] 20 (L) 07/15/2023 ECG: A/P Plan for C +/- PCI for NSTEMI Differential includes myocarditis, [...] sedation - FULL CODE Efrem Pink MD [facility] Operational Intelligence Officer, PGY-6 Pager #[phone] Can Epic message me 7AM-4PM on weekdays [...] (Interventions Implemented as Appropriate) 07/14/20231841 by Valentina Kenoyn RN Outcome: Ongoing (Interventions Implemented as Appropriate) [...] PM EDT TH Visit (TeleHealth) [place] [address] Pasha Wood MD [facility] [place] [address] documented as of this encounter Procedures Procedure [...] 3:21 AM EST) Neutrophil % 48.2 % [facility] Neutrophil Absolute 3.19 1.70 - 6.10 x10(3)/mc L [facility] Lymph % 31.3 % [facility] Lymphocytes Abs 2.1 0.9 - 3.2 x10(3)/mc L [facility] Monocyte % 16.0 % [facility] Monocyte Abs 1.1(H) 0.3 - 0.9 x10(3)/mc L [facility] Eos % 3.5 % [facility] Eosinophils Abs 0.2 0.0 - 0.4 x10(3)/mc L [facility] Basophil % 0.5 % [facility] Baso Absolute 0.0 0.0 - 0.1 x10(3)/mc L [facility] Immature Gran % 0.50 % [facility] Comment: Immature granulocytes(IG's)percentage and absolute count will include metamyelocytes, myelocytes, and promyelocytes. Blood smears from CBCs yielding IG's will be scanned manually for concordance. If this scan disagrees with the automated IG or if promyelocytes are noted, a manual differential will be performed. Immature Gran Absolute 0.03 0.00 - 0.04 x10(3)/mc L [facility] Blood 07/16/2023 3:21 AM EST 07/16/2023 3:27 AM EST Narrative Resulting Agency Comment Spec In Lab Raisa Campos MD HEMATOLOGY ORDERAB LES Performing Organization Address City/[facility] Co de Phone Number [facility] [place] [address] * (ABNORMAL) Hemogram (07/16/2023 3:21 AM EST) White Blood Cell 6.6 4.0 - 9.5 x10(3)/mc L [facility] Red Blood Cell 4.47 4.00 - 5.21 x10(6)/mc L [facility] Hemoglobin 13.7 11.7 - 15.5 g/dL [facility] Hematocrit 42.5 35.7 - 45.8 % [facility] Mean Cell Volume 95.1(H) 82.6 - 94.4 fL [facility] Mean Cell Hemoglobin 30.6 27.1 - 32.0 pg [facility] Mean Cell Hemoglobin Concentration 32.2 31.7 - 35.0 g/dL [facility] Platelet 318 145 - 357 x10(3)/mc L [facility] RDW Standard Deviation 49.6(H) 37.0 - 46.0 fL [facility] RDW coefficient of variation 14.1 11.5 - 14.1 % [facility] Mean Platelet Volume 8.8 7.6 - 12.9 fL [facility] NRBC% auto 0.0 % [facility] NRBC Absolute 0.000 0.000 - 0.000 x10(3)/mc L [facility] Blood 07/16/2023 3:21 AM EST 07/16/2023 3:27 AM EST Narrative Resulting Agency Comment Spec In Lab Raisa Campos MD HEMATOLOGY ORDERAB LES Performing Organization Address City/[facility]/ZIP Co de Phone Number [facility] [place] [address] * (ABNORMAL) Comprehensive metabolic panel (non-fasting) (07/16/2023 3:21 AM EST) Glucose 94 65 - 199 mg/dL [facility] Comment:Diabetes: >=200 mg/d L plus symptoms Blood Urea Nitrogen 14 8 - 18 mg/dL [facility] Creatinine 0.69(L) 0.70 - 1.20 mg/dL [facility] Sodium 140 135 - 145 mmol/L [facility] Potassium 3.6 3.5 - 5.0 mmol/L [facility] Comment: Please note: ??Patients with WBC >100,000 may have falsely elevated Potassium levels. ??For accurate Potassium quantification in these patients send serum separator tube (gold top) for subsequent determinations. ??Contact the Clinical Chemistry Laboratory if there are any questions. Chloride 109(H) 98 - 107 mmol/L [facility] Carbon Dioxide 22 22 - 31 mmol/L [facility] Anion Gap 9 5 - 15 mmol/L [facility] Calcium 9.4 8.5 - 10.5 mg/dL [facility] Protein, Total 6.1 6.1 - 8.0 g/dL [facility] Albumin 3.4 3.2 - 5.2 g/dL [facility] Aspartate Aminotransferase 32(H) 0 - 30 unit/L [facility] Alanine Aminotransferase 24 0 - 30 unit/L [facility] Alkaline Phosphatase 69 35 - 105 unit/L [facility] Bilirubin, Total <0.2(L) 0.2 - 1.3 mg/dL [facility] Est Glomerular Filtration Rate 92 >=60 mL/min/1. 73 m?? [facility] Comment: This patient's estimated GFR [...] CHEMISTRY ORDERABLES Performing Organization Address [facility] de Phone Number [facility] [place] [address] * Magnesium (07/16/2023 3:21 AM EST) Magnesium 0.78 0.69 - 1.07 mmol/L [facility] Blood 07/16/2023 3:21 AM EST 07/16/2023 3:27 AM EST Narrative Resulting Agency Comment Spec In Lab Isabelle Ray MD CHEMISTRY ORDERABLES Performing Organization Address [facility] de Phone Number [facility] [place] [address] * Phosphorus (07/16/2023 3:21 AM EST) Phosphorus 3.4 2.5 - 4.5 mg/dL [facility] Blood 07/16/2023 3:21 AM EST 07/16/2023 3:27 AM EST Narrative Resulting Agency Comment Spec In Lab Isabelle Ray MD CHEMISTRY ORDERABLES Performing Organization Address [facility] Phone Number [facility] [place] [address] * CARDIAC CATHETERIZATION (07/15/2023 12:15 PM EST) Anatomical Region Laterality Modality Other Narrative 07/15/2023 1:57 PM EST ?[facility] ? Cardiac Catheterization/Intervention Report ? Patient Name: Adames, Paul A. ? Procedure Date: 07/15/2023 ? A #: [id number] ? Primary Physician: Joe Zapata ? Case #: [id number] ? File Name: [id number] ? Catheterization Order Number: [id number] ? [facility] ? Final Report [place], [place] ? Patient Name: ? Paul A. Adames ? ID#: ?[id number] ? : ?1950 ? Procedure Date: ? July 15, 2023 ?Case #: ? [id number] ? Room: ? 6 ? Case Physician: [...] procedure was Urgent. The indication for ?the blood and plasma laboratory assistant visit is ACS less than or equal [...] stenosis. ??Distal flow ? was via the [place] vessel. ? There was mild diffuse (<=25% [...] in size. ??Distal flow was via the [place] vessel. ?Left Circumflex ? There was mild [...] stenosis. ? Distal flow was via the [place] vessel. ? Indication for Intervention: ?Coronary intervention [...] A premounted 2.50 x 22 mm [employer] (FIDELINA) was deployed ? with a maximum [...] dose administered prior to arrival in the blood and plasma laboratory assistant. ?Recommended anti-platelet/anti-thrombotic regimen: ?Continue aspirin 81 mg daily for indefinitely. ?Continue clopidogrel 75 mg daily for 12 months then stop. ?These recommendations are made at the time of the intervention. Patient ?and provider preferences or a changing clinical situation may require ?modification of this regimen. Consult [facility] Interventional Cardiology for ?questions. ?The 1 year [...] Procedure Note Joe Zapata MD - 03/03/2024 [facility] Cardiac Catheterization/Intervention Report Patient Name: Paul Adames Procedure Date: 07/15/2023 A #: [id number] Primary Physician: Joe Zapata Case #: [id number] File Name: [id number] Catheterization Order Number: [id number] [facility] FinalReport [place], [place] Patient Name: Paul Adames ID#:[id number] :1950 Procedure Date: July 15, 2023 Case [...] diagnostic procedure was Urgent. The indicationfor the blood and plasma laboratory assistant visit is ACS less than or equal [...] segmental 80% stenosis. Distalflow was via the [place] vessel. There was mild diffuse (<=25% stenosis) disease of the entirevessel segment of the second diagonal branch (Diagonal 2) of the LAD.The Diagonal 2 was moderate in size. There was an 80% single discrete stenosis of the ostial segmentof the first septal branch (1st Septal) of the LAD. The 1stSeptal was moderate in size. Distal flow was via the [place] vessel. Left Circumflex There was mild diffuse (<=25% stenosis) disease of the entirevessel segment of the left circumflex artery (LCX). Right Coronary Artery There was mild diffuse (<=25% stenosis) disease of the entirevessel segment of the right coronary artery (RCA) and it was ectatic.The proximal segment of the RCA had a single discrete 55% stenosis. Distal flow was via the [place] vessel. Indication for Intervention: Coronary intervention was [...] The lesion was predilated with a 2.00mm [id number] MM balloon with a maximum inflation pressure of 20atmospheres. A premounted 2.50 x 22 mm [employer] (FIDELINA) wasdeployed with a maximum inflation pressure [...] dose administered prior to arrival in the blood and plasma laboratory assistant. Recommended anti-platelet/anti-thrombotic regimen: Continue aspirin 81 mg daily for indefinitely. Continue clopidogrel 75 mg daily for 12 months then stop. These recommendations are made at the time of the intervention.Patient and provider preferences or a changing clinical situation mayrequire modification of this regimen. Consult [facility] Interventional Cardiologyfor questions. The 1 year bleeding [...] is moderate to severe proximal RCA stenosis, tbtvixlrofcaf58%. This does not appear to be the [...] (Bezet) 440 ms MUSE SYSTEM Calculated P [place] 67 degrees MUSE SYSTEM Calculated R [place] 18 degrees MUSE SYSTEM Calculated T [place] 69 degrees MUSE SYSTEM INTERPRETATION Normal sinus [...] EST Narrative 07/15/2023 12:44 PM EST 1 [place] [address] ? Echocardiogram Report Name: PAUL ADAMES ?Study Date: 07/15/2023 08:36 AMBP: 141/66 mmHg ? Patient Location: [address] : 1950 ? Height: 160 cm ? Account: [id number] Age: 72 yrs ? Weight: 92 kg Gender: Female ?BSA: 1.9 m2 Ordering Physician: ISABELLE RAY Referring Physician: ELENA PRITCHARD Performed By: Torrey Hernandez RDCS Reason For Study: NSTEMI (non-ST elevated myocardial infarction) Exam Location: [facility]. Interpretation Summary -Left ventricular systolic function is normal. The left ventricular ejection fraction is 57% by Nichols's biplane. There are no segmental wall motion abnormalities. -The right ventricle is of normal size. Right ventricular systolic function is normal. Unable to estimate PASP. -No significant valve disease. -See report for additional findings. No comparison study is available. Procedure Complete-[id number]. Image enhancement Optison was used for left [...] Note Isabelle Ray MD - 07/15/2023 1 [place] [address] Echocardiogram Report Name: PAUL ADAMES Study Date: 308:36 AMBP: 141/66 mmHg Patient Location: [address] : 1950 Height: 160 cm Account: [id number] Age: 72 yrs Weight: 92 kg Gender: Female BSA: 1.9 m2 Ordering Physician: ISABELLE RAY Referring Physician: ELENA PRITCHARD Performed By: Torrey Hernandez RDCS Reason For Study: NSTEMI (non-ST elevated myocardial infarction) Exam Location: [facility]. Interpretation Summary -Left ventricular systolic function is normal. The left ventricularejection fraction is 57% by Nichols's biplane. There are no segmental wall motion abnormalities. -The right ventricle is of normal size. Right ventricular systolicfunction is normal. Unable to estimate PASP. -No significant valve disease. -See report for additional findings. No comparison study is available. Procedure Complete-[id number]. Image enhancement Optison was used for left [...] 6:07 AM EST) UF Heparin 0.57 IU/mL [facility] Comment: Heparin (anti-Xa) levels [...] Lab Isabelle Ray MD HEMATOLOGY ORDERABLE S [facility] [place] [address] * (ABNORMAL) CMP w/fasting Glucose (07/15/2023 12:06 AM EST) Glucose Fasting 101(H) 65 - 99 mg/dL [facility] Comment: ?Fasting* Glucose Interpretive Criteria [...] of Diabetes Mellitus, Position Statement from the [place] [employer]. ??Diabetes Care, Volume 33, Supplement 1, Jul 2009 Blood Urea Nitrogen 11 8 - 18 mg/dL [facility] Creatinine 0.72 0.70 - 1.20 mg/dL [facility] Sodium 140 135 - 145 mmol/L [facility] Potassium 3.5 3.5 - 5.0 mmol/L [facility] Comment: Please note: ??Patients with WBC >100,000 may have falsely elevated Potassium levels. ??For accurate Potassium quantification in these patients send serum separator tube (gold top) for subsequent determinations. ??Contact the Clinical Chemistry Laboratory if there are any questions. Chloride 110(H) 98 - 107 mmol/L [facility] Carbon Dioxide 20(L) 22 - 31 mmol/L [facility] Anion Gap 10 5 - 15 mmol/L [facility] Calcium 9.4 8.5 - 10.5 mg/dL [facility] Protein, Total 6.2 6.1 - 8.0 g/dL [facility] Albumin 3.5 3.2 - 5.2 g/dL [facility] Aspartate Aminotransferase 47(H) 0 - 30 unit/L [facility] Alanine Aminotransferase 27 0 - 30 unit/L [facility] Alkaline Phosphatase 73 35 - 105 unit/L [facility] Bilirubin, Total 0.4 0.2 - 1.3 mg/dL [facility] Est Glomerular Filtration Rate 89 >=60 mL/min/1. 73 m?? [facility] Comment: This patient's estimated GFR [...] Lab Raisa Campos MD CHEMISTRY ORDERABL ES Performing Organization Address City/State/[facility] Co de Phone Number [facility] [place] [address] * (ABNORMAL) Differential, Automated (07/15/2023 12:06 AM EST) Neutrophil % 55.8 % [facility] Neutrophil Absolute 3.64 1.70 - 6.10 x10(3)/mc L [facility] Lymph % 24.0 % [facility] Lymphocytes Abs 1.6 0.9 - 3.2 x10(3)/mc L [facility] Monocyte % 15.2 % [facility] Monocyte Abs 1.0(H) 0.3 - 0.9 x10(3)/mc L [facility] Eos % 3.8 % [facility] Eosinophils Abs 0.2 0.0 - 0.4 x10(3)/mc L [facility] Basophil % 0.3 % [facility] Baso Absolute 0.0 0.0 - 0.1 x10(3)/mc L [facility] Immature Gran % 0.90 % [facility] Comment: Immature granulocytes(IG's)percentage and absolute count will include metamyelocytes, myelocytes, and promyelocytes. Blood smears from CBCs yielding IG's will be scanned manually for concordance. If this scan disagrees with the automated IG or if promyelocytes are noted, a manual differential will be performed. Immature Gran Absolute 0.06(H) 0.00 - 0.04 x10(3)/mc L [facility] Blood 07/15/2023 12:0 6 AM EST 07/15/2023 12:11 AM EST Narrative Resulting Agency Comment Spec In Lab Raisa Campos MD HEMATOLOGY ORDERAB LES Performing Organization Address City/State/[facility] Co de Phone Number [facility] [place] [address] * (ABNORMAL) Hemogram (07/15/2023 12:06 AM EST) White Blood Cell 6.5 4.0 - 9.5 x10(3)/mc L [facility] Red Blood Cell 4.53 4.00 - 5.21 x10(6)/mc L [facility] Hemoglobin 14.0 11.7 - 15.5 g/dL [facility] Hematocrit 42.8 35.7 - 45.8 % [facility] Mean Cell Volume 94.5(H) 82.6 - 94.4 fL [facility] Mean Cell Hemoglobin 30.9 27.1 - 32.0 pg [facility] Mean Cell Hemoglobin Concentration 32.7 31.7 - 35.0 g/dL [facility] Platelet 337 145 - 357 x10(3)/mc L [facility] RDW Standard Deviation 49.5(H) 37.0 - 46.0 fL [facility] RDW coefficient of variation 14.2(H) 11.5 - 14.1 % [facility] Mean Platelet Volume 8.9 7.6 - 12.9 fL [facility] NRBC% auto 0.0 % [facility] NRBC Absolute 0.000 0.000 - 0.000 x10(3)/mc L [facility] Blood 07/15/2023 12:0 6 AM EST 07/15/2023 12:11 AM EST Narrative Resulting Agency Comment Spec In Lab Raisa Campos MD HEMATOLOGY ORDERAB LES Performing Organization Address [facility] [place] [address] * Magnesium (07/15/2023 12:06 AM EST) Magnesium 0.71 0.69 - 1.07 mmol/L [facility] Blood 07/15/2023 12:0 6 AM EST 07/15/2023 12:11 AM EST Narrative Resulting Agency Comment Spec In Lab Isabelle Ray MD CHEMISTRY ORDERABLES Performing Organization Address [facility] Phone Number [facility] [place] [address] * Phosphorus (07/15/2023 12:06 AM EST) Phosphorus 2.9 2.5 - 4.5 mg/dL [facility] Blood 07/15/2023 12:0 6 AM EST 07/15/2023 12:11 AM EST Narrative Resulting Agency Comment Spec In Lab Isabelle Ray MD CHEMISTRY ORDERABLES Performing Organization Address [facility] de Phone Number [facility] [place] [address] * Heparin (unfractionated) Level (07/15/2023 12:06 AM EST) UF Heparin 0.49 IU/mL [facility] Comment: Heparin (anti-Xa) levels [...] MD HEMATOLOGY ORDERABLE S Performing Organization Address [facility] Co de Phone Number [facility] [place] [address] * Triglyceride (07/15/2023 12:06 AM EST) Triglyceride 76 mg/dL [facility] Comment: Average Risk/Lower Risk: <150 mg/dL Borderline High Risk: 150-199 mg/dL High Risk: 200-499 mg/dL Very High Risk: >er=248 mg/dL Blood 07/15/2023 12:0 6 AM EST 07/15/2023 12:11 AM EST Narrative Resulting Agency Comment Spec In Lab Isabelle Ray MD CHEMISTRY ORDERABLES Performing Organization Address [facility] de Phone Number [facility] [place] [address] * HDL/Cholesterol Profile (07/15/2023 12:06 AM EST) Cholesterol, Total 142 mg/dL [facility] Comment: Lower Risk: <200 mg/dL Average Risk: 200-239 mg/dL Higher Risk: >nn=944 mg/dL HDL Cholesterol 69 mg/dL [facility] Comment: Males: ?? Higher Risk: <40 mg/dL Females: ?? Higher Risk: <50 mg/dL Cholesterol/HDL Ratio 2.1 ratio [facility] Chol/HDL Interpretation See Note [facility] Comment: Lipid management should be guided by a patient? s ASCVD risk, goals and preferences. ACC/AHA Guidelines recommend high intensity statin if clinical ASCVD or LDL greater than or equal to 190 mg/dL. http://tinyurl.com/SQI-CSM-Sqxdbdfhd Measure LDL if Total Cholesterol minus HDL Cholesterol is greater than 220 mg/dL. Adults aged 40-75 with LDL 70-189 mg/dL should have their 10 year ASCVD risk estimated with the ACC/AHA ASCVD risk utilities estimator and drafter http://tools.acc.org/AVFXC-Dnzs-Jprgkslgd/ Statin should be discussed if risk greater [...] Ray MD CHEMISTRY ORDERABLES Performing Organization Address [facility] Co de Phone Number [facility] [place] [address] * LDL Cholesterol, Direct (07/15/2023 12:06 AM EST) LDL Cholesterol, Direct 68 mg/dL [facility] Comment: Lowest Risk: <100 mg/dL Lower Risk: 100-129 mg/dL Borderline High Risk: 130-159 mg/dL High Risk: 160-189 mg/dL Very High Risk: >aw=535 mg/dL Blood 07/15/2023 12:0 6 AM EST 07/15/2023 12:11 AM EST Narrative Resulting Agency Comment Spec In Lab Isabelle Ray MD CHEMISTRY ORDERABLES Performing Organization Address City/[facility] Co de Phone Number [facility] [place] [address] * Hemoglobin A1c (07/15/2023 12:06 AM EST) Hemoglobin A1c 5.6 4.3 - 5.6 % [facility] Comment: Reference Range: 4.3 - [...] Mellitus, Diabetes Care 2013; 36: Suppl. 1, C90-63 Estimated Average Glucose See note mg/dL [facility] Comment: Estimated Average Glucose not [...] into estimated average glucose values. ??Diabetes Care 2008:31(8):2678-2911. Additional resources are available on the ADA website (diabetes.org). Blood 07/15/2023 12:0 6 AM EST 07/15/2023 12:11 AM EST Narrative Resulting Agency Comment Spec In Lab Isabelle Ray MD CHEMISTRY ORDERABLES [facility] [address] [place] [id number] * (ABNORMAL) Troponin (07/14/2023 8:29 PM EST) Troponin-T, High Sensitivity 434(H) <=14 ng/L [facility] Comment: This patient's troponin T [...] troponin value can be found in the Counts Include [facility] Laboratory Test Catalog Troponin - Counts Include [facility] Laboratory Test Catalog Reference: Fourth [place] Definition of Myocardial Infarction. Journal of the [place] [employer] 2018;72:8992-8723 Blood 07/14/2023 8:29 PM EST 07/14/2023 8:36 PM EST Narrative Resulting Agency Comment Spec In Lab Isabelle Ray MD CHEMISTRY ORDERABLES [facility] [place] [address] * Respiratory Panel PCR (07/14/2023 5:30 PM EST) Respiratory Panel Source [employer] APPRENTICE Swab [facility] Respiratory Panel PCR Negative Negative [facility] Comment: Respiratory Panels are performed on the [employer], using multiplexed PCR nucleic acid detection. ??Negative results do not preclude respiratory infection and should not be used as the sole basis for diagnosis, treatment or other management decisions. Adenovirus Not Detected Not Detected [facility] Coronavirus HKU1 Not Detected Not Detected [facility] Coronavirus NL63 Not Detected Not Detected [facility] Coronavirus 229E Not Detected Not Detected [facility] Coronavirus OC43 Not Detected Not Detected [facility] SARS-CoV-2 Not Detected Not Detected [facility] Comment: Testing for SARS-CoV-2 (Severe acute respiratory syndrome coronavirus 2) to aid in the diagnosis of COVID-19 is performed using the [employer] Respiratory Panel 2.1 (BioMSueEasy) as authorized by the FDA issued Emergency Use Authorization (EUA). This panel also tests for multiple other viral and bacterial pathogens. This assay is intended for In-vitro Diagnostic (IVD) use with nasopharyngeal swabs in viral transport media. The assay is performed based on the instructions for use and additional guidance provided by the FDA. Testing is performed in laboratories within the [facility], each of which is certified under [...] fact sheets at the following FDA website: https://www.fda.gov/medical-devices/snvlnaabocb-jnvjfpo-1927-aamwh-30-yypucsput- use-a pvupnfaeitcmh-zhgzkpl-ahlkxsd/wwmec-wkpqumcsyog-reid Human Metapneumovirus Not Detected Not Detected [facility] Human Rhinovirus/Enterov irus Not Detected Not Detected [facility] Influenza A Not Detected Not Detected [facility] Influenza B Not Detected Not Detected [facility] Parainfluenza 1 Not Detected Not Detected [facility] Parainfluenza 2 Not Detected Not Detected [facility] Parainfluenza 3 Not Detected Not Detected [facility] Parainfluenza 4 Not Detected Not Detected [facility] Respiratory Syncytial Virus Not Detected Not Detected [facility] Chlamydophila pneumoniae Not Detected Not Detected [facility] Mycoplasma pneumoniae Not Detected Not Detected [facility] Nasopharyngeal Swab 07/14/20 5:30 PM EST 07/14/2023 5:47 PM EST Narrative Resulting Agency Comment Spec In Lab Isabelle Ray MD MICROBIOLOGY - GENER AL ORDERABLES Performing Organization Address City/[facility] Co de Phone Number [facility] [place] [address] * Differential, Automated (07/14/2023 5:22 PM EST) Neutrophil % 69.9 % [facility] Neutrophil Absolute 4.76 1.70 - 6.10 x10(3)/[facility] Lymph % 15.1 % [facility] Lymphocytes Abs 1.0 0.9 - 3.2 x10(3)/[facility] Monocyte % 12.3 % [facility] Monocyte Abs 0.8 0.3 - 0.9 x10(3)/[facility] Eos % 2.2 % [facility] Eosinophils Abs 0.2 0.0 - 0.4 x10(3)/[facility] Basophil % 0.1 % [facility] Baso Absolute 0.0 0.0 - 0.1 x10(3)/[facility] Immature Gran % 0.40 % [facility] Comment: Immature granulocytes(IG's)percentage and absolute count will include metamyelocytes, myelocytes, and promyelocytes. Blood smears from CBCs yielding IG's will be scanned manually for concordance. If this scan disagrees with the automated IG or if promyelocytes are noted, a manual differential will be performed. Immature Gran Absolute 0.03 0.00 - 0.04 x10(3)/[facility] Blood 07/14/2023 5:22 PM EST 07/14/2023 5:28 PM EST Narrative Resulting Agency Comment Spec In Lab Raisa Campos MD HEMATOLOGY ORDERAB LES Performing Organization Address [facility] Co de Phone Number [facility] [place] [address] * (ABNORMAL) Hemogram (07/14/2023 5:22 PM EST) Pathologist [facility] White Blood Cell 6.8 4.0 - 9.5 x10(3)/mc L [facility] Red Blood Cell 4.90 4.00 - 5.21 x10(6)/mc L [facility] Hemoglobin 14.9 11.7 - 15.5 g/dL [facility] Hematocrit 45.7 35.7 - 45.8 % [facility] Mean Cell Volume 93.3 82.6 - 94.4 fL [facility] Mean Cell Hemoglobin 30.4 27.1 - 32.0 pg [facility] Mean Cell Hemoglobin Concentration 32.6 31.7 - 35.0 g/dL [facility] Platelet 353 145 - 357 x10(3)/mc L [facility] RDW Standard Deviation 48.9(H) 37.0 - 46.0 fL [facility] RDW coefficient of variation 14.2(H) 11.5 - 14.1 % [facility] Mean Platelet Volume 8.9 7.6 - 12.9 fL [facility] NRBC% auto 0.0 % [facility] NRBC Absolute 0.000 0.000 - 0.000 x10(3)/ L [facility] Blood 07/14/2023 5:22 PM EST 07/14/2023 5:28 PM EST Narrative Resulting Agency Comment Spec In Lab Raisa Campos MD HEMATOLOGY ORDERAB LES [facility] [place] [address] * (ABNORMAL) Troponin (07/14/2023 5:22 PM EST) [facility] Troponin-T, High Sensitivity 489(H) <=14 ng/L [facility] Comment: This patient's troponin T [...] troponin value can be found in the [facility] Laboratory Test Catalog Troponin - Counts Include [facility] Laboratory Test Catalog Reference: [place] Definition of Myocardial Infarction. Journal of the [place] [employer] 2018;72:7972-0465 Blood 07/14/2023 5:22 PM EST 07/14/2023 5:28 PM EST Narrative Resulting Agency Comment Spec In Lab Isabelle Ray MD CHEMISTRY ORDERABLES Performing Organization Address City/[facility]/ZIP Co de Phone Number [facility] [place] [address] * (ABNORMAL) CRP, acute inflammation (07/14/2023 5:22 PM EST) C-Reactive Protein 55.4(H) <=4.9 mg/L [facility] Blood 07/14/2023 5:22 PM EST 07/14/2023 5:28 PM EST Narrative Resulting Agency Comment Spec In Lab Isabelle Ray MD CHEMISTRY ORDERABLES Performing Organization Address City/[facility] Co de Phone Number [facility] [place] [address] * (ABNORMAL) Sedimentation rate (07/14/2023 5:22 PM EST) Sedimentation Rate Automated 59(H) 3 - 46 mm/hr [facility] Comment: Effective July 09, 2019 new capillary photometric technology has resulted in a change in reference ranges. It is recommended that each ESR result be reviewed with its own age appropriate reference range. Blood 07/14/2023 5:22 PM EST 07/14/2023 5:28 PM EST Narrative Resulting Agency Comment Spec In Lab Isabelle Ray MD HEMATOLOGY ORDERABLE S Performing Organization Address [facility]/ZIP Co de Phone Number [facility] [place] [address] * (ABNORMAL) Hepatic Function Panel (07/14/2023 5:22 PM EST) Protein, Total 6.9 6.1 - 8.0 g/dL [facility] Albumin 3.7 3.2 - 5.2 g/dL [facility] Aspartate Aminotransferase 58(H) 0 - 30 unit/L [facility] Alanine Aminotransferase 28 0 - 30 unit/L [facility] Alkaline Phosphatase 81 35 - 105 unit/L [facility] Bilirubin, Total 0.5 0.2 - 1.3 mg/dL [facility] Bilirubin, Direct 0.1 0.0 - 0.3 mg/dL [facility] Blood 07/14/2023 5:22 PM EST 07/14/2023 5:28 PM EST Narrative Resulting Agency Comment Spec In Lab Isabelle Ray MD CHEMISTRY ORDERABLES Performing Organization Address [facility] Co de Phone Number [facility] [place] [address] * (ABNORMAL) pro-Brain Natriuretic Peptide (07/14/2023 5:22 PM EST) NT-proBNP 377(H) <=124 pg/mL [facility] Blood 07/14/2023 5:22 PM EST 07/14/2023 5:28 PM EST Narrative Resulting Agency Comment Spec In Lab Isabelle Ray MD CHEMISTRY ORDERABLES Performing Organization Address City/[facility]/ZIP Co de Phone Number [facility] [place] [address] * TSH (07/14/2023 5:22 PM EST) Thyroid Stimulating Hormone 3.15 0.27 - 4.20 mcIU/mL [facility] Comment: Reference Interval (mcIU/mL): Females: ??First Trimester: 0.23-3.88 ??Second Trimester: 0.22-3.90 ??Third Trimester: 0.44-4.66 Blood 07/14/2023 5:22 PM EST 07/14/2023 5:28 PM EST Narrative Resulting Agency Comment Spec In Lab Isabelle Ray MD CHEMISTRY ORDERABLES Performing Organization Address [facility]/ZIP Co de Phone Number [facility] [place] [address] * (ABNORMAL) Phosphorus (07/14/2023 5:22 PM EST) Phosphorus 2.3(L) 2.5 - 4.5 mg/dL [facility] Blood 07/14/2023 5:22 PM EST 07/14/2023 5:28 PM EST Narrative Resulting Agency Comment Spec In Lab Isabelle Ray MD CHEMISTRY ORDERABLES Performing Organization Address [facility] Co de Phone Number [facility] [place] [address] * (ABNORMAL) Magnesium (07/14/2023 5:22 PM EST) Magnesium 0.66(L) 0.69 - 1.07 mmol/L [facility] Blood 07/14/2023 5:22 PM EST 07/14/2023 5:28 PM EST Narrative Resulting Agency Comment Spec In Lab Isabelle Ray MD CHEMISTRY ORDERABLES Performing Organization Address [facility] Co de Phone Number [facility] [place] [address] * (ABNORMAL) Basic Metabolic Panel (non-fasting) (07/14/2023 5:22 PM EST) Glucose 98 65 - 199 mg/dL [facility] Comment:Diabetes: >=200 mg/d L plus symptoms Blood Urea Nitrogen 11 8 - 18 mg/dL [facility] Creatinine 0.59(L) 0.70 - 1.20 mg/dL [facility] Sodium 140 135 - 145 mmol/L [facility] Potassium 3.7 3.5 - 5.0 mmol/L [facility] Comment: Please note: ??Patients with WBC >100,000 may have falsely elevated Potassium levels. ??For accurate Potassium quantification in these patients send serum separator tube (gold top) for subsequent determinations. ??Contact the Clinical Chemistry Laboratory if there are any questions. Chloride 108(H) 98 - 107 mmol/L [facility] Carbon Dioxide 21(L) 22 - 31 mmol/L [facility] Anion Gap 11 5 - 15 mmol/L [facility] Calcium 9.7 8.5 - 10.5 mg/dL [facility] Est Glomerular Filtration Rate 96 >=60 mL/min/1. 73 m?? [facility] Comment: This patient's estimated GFR [...] Narrative Resulting Agency Comment Spec In Lab Isaeblle Ray MD CHEMISTRY ORDERABLES [facility] [place] [address] * EKG 12 Lead (07/14/2023 5:15 PM EST) Ventricular rate 75 BPM MUSE SYSTEM Atrial Rate 75 BPM MUSE SYSTEM P-R Interval 152 ms MUSE SYSTEM QRS Duration 86 ms MUSE SYSTEM Q-T Interval 362 ms MUSE SYSTEM QTC Calculated (Bezet) 404 ms MUSE SYSTEM Calculated P [place] 18 degrees MUSE SYSTEM Calculated R [place] 22 degrees MUSE SYSTEM Calculated T [place] 109 degrees MUSE SYSTEM INTERPRETATION Normal sinus [...] 1:16 PM EST 60 mg heparin (porcine) 50 units/mL in dextrose 5% 500 mL infusion 0-5,000 Units/hr (0-100 mL/hr), Intravenous, CONTINUOUS, Starting [...] Heparin UFH Level - Per Protocol, Routine New Bag 07/14/2023 5:41 PM EST 1,000 Units/hr 20 mL/hr levothyroxine (Synthroid) tablet 125 mcg 125 mcg, [...] Given 07/14/2023 5:46 PM EST 100 mg magnesium oxide (Mag-Ox) tablet 400 mg 400 mg, Oral, ONCE, 1 dose, On 07/16/23 at 1145, Routine Given 07/16/2023 11:18 AM EST 400 mg magnesium sulfate 2 g in sterile water 50 mL infusion 2 g, Intravenous, ONCE, 1 dose, On 07/15/23 at 0745, Administer over 120 Minutes New Bag 07/15/2023 8:16 AM EST 2 g 25 mL/hr metoprolol tartrate (Lopressor) tablet 12.5 mg 12.5 mg, Oral, EVERY 6 HOURS SCHEDULED, First dose on 07/14/23 at 1830, Until Discontinued, Hold for HR < 55, Routine Given 07/16/2023 11:18 AM EST 12.5 mg Given 07/16/2023 5:44 AM EST 12.5 mg Given 07/16/2023 12:47 AM EST 12.5 mg multivitamin with minerals (Thera M) tablet [...] the last 24 to 72 hours., Routine pantoprazole EC (Protonix) tablet 40 mg 40 mg, Oral, DAILY, First dose on 07/14/23 at 1830, Until Discontinued, DO NOT CRUSH OR OPEN, Routine Given 07/16/2023 10:15 AM EST 40 mg Given 07/15/2023 8:16 AM EST 40 mg Given 07/14/2023 5:46 PM EST 40 mg perflutren protein-A microsphers (Optison) (0.22 mg/mL) injection 0.6 mL 0.6 mL, Intravenous, ONCE PRN, 1 dose, Starting on 07/15/23 at 1005, Until 07/15/23 at 1005, Per Protocol, Routine Given 07/15/2023 10:05 AM EST 0.6 mLs potassium chloride ER (Klor-Con M) crystal tablet 40 mEq 40 mEq, Oral, ONCE, 1 dose, On 07/16/23 at 0715, potassium chloride ER particle/crystal tablets (Klor-Con M) may be broken in half and each half swallowed separately. Tablets can be dissolved in ~4 ounces of water; allow ~2 minutes to dissolve, stir well and drink immediately. Do not crush, chew, or suck on tablet., Routine Given 07/16/2023 10:14 AM EST 40 mEq predniSONE (Deltasone) tablet 2 mg 2 mg, [...] link provided on this medication record., Routine sodium chloride 0.9% infusion 200 mL/hr, Intravenous, CONTINUOUS, Starting on 07/15/23 at 1315, Until 07/15/23 at 1714, Recovery (Recovery-Hospital Unit) New Bag 07/15/2023 12:29 PM EST 200 mL/hr 200 m L/hr documented in this encounter Active [...] Kenyon RN) 1015 (Given - Provider: Yazmin Bennett, JOSEPH) DULoxetine DR (Cymbalta) capsule 60 mg 60 mg, Oral, DAILY AT NOON, First dose on Sun07/15/23 at 1200, Until Discontinued, Routine 1316 (Given - Provider: Valentina Kenyon RN) 1118 (Given - Provider: Yazmin Bennett, JOSEPH) levothyroxine (Synthroid) tablet 125 mcg 125 mcg, Oral, TWICE WEEKLY (Once per day on Sunday), First dose on Sun07/16/23 at 0900, Until Discontinued, Routine 1015 (Given - Provider: Yazmin Bennett, JOSEPH) losartan (Cozaar) tablet 100 mg 100 mg, Oral, DAILY, First dose on Sun07/14/23 at 1830, Until Discontinued, Routine 1746 (Given - Provider: Valentina Kenyon RN) 0816 (Given - Provider: Valentina Kenyon RN) 1014 (Given - Provider: Yazmin Bennett, JOSEPH) magnesium oxide (Mag-Ox) tablet 400 mg (COMPLETED) 400 mg, Oral, ONCE, 1 dose, On Sun07/16/23 at 1145, Routine 1118 (Given - Provider: Yazmin Bennett RN) magnesium sulfate 2 g in sterile water [...] 40 mEq, Oral, ONCE, 1 dose, On Sun07/16/23 at 0715, potassium chloride ER particle/crystal tablets [...] on 07/15/23 at 0900, Until Discontinued, Routine 0816 (Given [...] 1731, Until 07/16/23 at 1441, Anxiety, Routine 2127 (Given - Provider: Filipe Thomas RN) heparin (porcine) (1,000 units/mL) injection (CANCELED) PRN, Starting on 07/15/23 at 1123, Until 07/15/23 at 1210, Intra-Operative (Intra-Procedure), Routine 1123 (Given - Provider: Caitie Wheeler RN) lidocaine (Xylocaine) 1% (10 mg/mL) injection 3 [...] documented as of this encounter Care Teams Halftone Operator Relationship Specialty Start Date End Date Latha Aguirre MD [address] [place] [address] PCP - General Family Medicine 06/28/23 documented as of this encounter
--- OUTSIDE RECORDS SUMMARY | 2024-03-27 20:53 | XMS_ITS | Encounter Summary ---
Author Organization [facility] [place] [address] Care Team Providers Care Generator Man Name Role Phone Unavailable Primary Care Provider Unavailabl e Reason for Visit * Reason Comments Medication Refill Encounter Details Date Type Department Care Team (Late st Contact Info) Description 08/25/2022 Refill [place] [phone] Pasha Wood MD [facility] [place] [address] Seronegative rheumatoid arthritis Social History Tobacco Use [...] PM EDT TH Visit (TeleHealth) [place] [phone] Pasha Wood MD [facility] [address] documented as of this encounter Visit Diagnoses Diagnosis Seronegative rheumatoid arthritis Rheumatoid arthritis documented in this encounter
--- OUTSIDE RECORDS SUMMARY | 2024-03-27 20:53 | XMS_ITS | Encounter Summary ---
Author Organization [facility] [place] [address] Care Team Providers Care Hospital Mortician Name Role Phone Nathalie Bain MD Primary Care Provider Reason for Visit * Reason Comments Follow-up Seronegative rheumat oid arthritis Encounter Details Date Type Department Care Team (Latest Contact Info) Description 09/15/2021 1:30 PM EST TH Visit (TeleHealth) [place] [address] Pasha Wood MD [facility] [place] [address] Seronegative rheumatoid arthritis Social History Tobacco Use [...] as of this encounter Progress Notes * Pasha Wood MD - 09/15/2021 1:30 PM EST Chief rheumatologic issue: Page [...] by Dr. Dharmesh Cummings who was a court registry officer emeritus at [employer] [facility] [employer]. He confirmed the diagnosis of polymyalgia rheumatica [...] Stiffness in the MCPs especially. 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 Has other aches and pains yet not [...] June. Also saw Dr. Pasha Govea at [facility] podiatry and had nailbed surgery on [...] pharmacy. She received medication assistance from the tray drier. She just received her first delivery ofadalimumab. [...] series. 09-15-2021 Interval events: Last visit with me 07-14-2021. First dose of adalimumab was 07-14-2021. [...] No interval health events. No new medications. Review of Systems: No fevers. No viral symptoms. Still with some fatigue HEENT: No mouth sores. No facial rash. Hydroxychloroquine stopped due to hair thinning. She states that her joints are doing okay. No red hot swollen joints. No chest pain or palpitations. She had recent appointment at [facility] with Dr. Rand in Dermatology. No [...] Reported on 09/09/2020) 90 tablet 3 ??? Cfskeogfisrqp-Xa-Nwdf-Minerals (ONE-A-DAY WOMENS FORMULA) 27-0.4 mg Tab (Patient [...] Pleasant and interactive ?HEENT: anicteric sclerae, conjunctivae clear Appropriate speech thought and content. ? Labs: ? 03/29/2011: Rheumatoid factor negative. [...] prednisone and 20 mg of methotrexate. I have however been concerned about her diagnosis of fatty liver and continuing this dose of methotrexate. She has started adalimumab and has been on this for approximately 2-1/2 months. She is experiencing a therapeutic effect. I think it is time that we can begin tapering methotrexate. I recommended tapering by 1 tablet or 2.5 mg monthly. I will plan on following up with her in 3 months in person. We previously discussed in depth risks and potential benefits of TNF alpha inhibition. Laboratory testing due today. I will be watching liver function tests very carefully given her diagnosis of nonalcoholic fatty liver disease and use of methotrexate. 2. NAFLD (nonalcoholic fatty liver disease): As above. 3. Vitamin D deficiency: She will continue her vitamin D supplementation and her multivitamin. I previously recommended increasing vitamin D intake by 1000 international units daily. Goal is 40-60 for vitamin D. I previously also recommended dietary calcium. 4. Hypercalcemia: Recently 10.7. She will be getting repeat laboratory tests shortly which will include a comprehensive metabolic panel. I suspect this may be from aggressive supplementation. 5. Hypokalemia: I suspect this is a medication effect. I recommended increasing supplementation with food sources including orange juice and banana. I again she will have repeat testing very soon Plan: Continue adalimumab 40 mg every other week. Methotrexate monitoring labs in the next week. Start to taper methotrexate 1 tablet every month. Continue prednisone at 2 mg daily Please note that this note was completed with the assistance of voice recognition software. As result unintentional white kid buffer errors and/or typographical mistakes are possible. If you notice errors please bring them to my attention. If any area requires explanation or clarification please do not hesitate to contact me. 42 minutes total spent on this visit including precharting, review of laboratory, notes from other providers, prxo-qn-[id number] interaction, and documentation. documented in this encounter Plan of Treatment Upcoming Encounters Date Type Department Care Team (Late st Contact Info) Description 05/15/2024 1:00 PM EDT TH Visit (TeleHealth) [place] [address] Pasha Wood MD [facility] [place] [address] documented as of this encounter Visit Diagnoses Diagnosis Seronegative rheumatoid arthritis Rheumatoid arthritis documented in this encounter Care Teams Hospital Mortician Relationship Specialty Start Date End Date Nathalie Bain MD [address] [place] [address] PCP - General Family Medicine 06/28/16 12/20/21 documented as of this encounter
--- OUTSIDE RECORDS SUMMARY | 2024-03-27 20:53 | XMS_ITS | Encounter Summary ---
[place] [address] Care Team Providers Care Road Driver Name Role Phone Latha Aguirre MD Primary Care Provider [phone] Encounter Details Date Type Department Care Team (Late st Contact Info) Description 07/13/2023 Specialty Pharmacy [place] [address] Tc Madrid, AJITH Social History Tobacco Use Types Packs/Day Years Used Date Smoking Tobacco: Never Smokeless Tobacco: Never Alcohol Use Standard Drinks/Week Comments No 0 (1 standard drink = 0.6 oz pur e alcohol) [facility] Inpatient Questions Answer Date Recorded Does [...] as of this encounter Progress Notes * Tc Madrid CPHT - 07/13/2023 12:53 PM EST [facility] - Cloth Designer Assistance Approval The Specialty Medication Access Team has looked into gas plumber assistance for the following patient. The patient???s application was approved to receive the medication at no cost through the gas plumber. The Specialty Medication Access Team will inform the patient and provider. Patient: Page Katz : 1950 Medication: Humira Cloth Designer: [employer] Cloth Designer Assistance Approval Dates: 07/13/2023 to 07/29/2024 Cloth Designer Preferred Pharmacy: [facility] Cloth Designer Preferred Pharmacy Cloth Designer Preferred Pharmacy Patient Notified: Yes Prescriber Notified: Yes Tc Madrid CPHT 07/13/23 12:53 PM documented in this encounter Plan of Treatment Upcoming Encounters Date Type Department Care Team (Late st Contact Info) Description 05/15/2024 1:00 PM EDT TH Visit (TeleHealth) [place] [address] Pasha Wood MD [facility] [place] [address] documented as of this encounter Visit Diagnoses Not on filedocumented in this encounter Care Teams Road Driver Relationship Specialty Start Date End Date Latha Aguirre MD [address] [place] [id number] PCP - General Family Medicine 06/28/23 documented as of this encounter
--- OUTSIDE RECORDS SUMMARY | 2024-03-27 20:53 | XMS_ITS | Encounter Summary ---
[place] [address] Care Team Providers Care Water Sander Name Role Phone Nathalie Bain MD Primary Care Provider Reason for Visit * Reason Comments Specialty Pharmacy Review Adalimumab (Hu estiven) Encounter Details Date Type Department Care Team (Late st Contact Info) Description 07/14/2021 Specialty [place] [phone] Christine Gomez, [facility] Social History Tobacco Use Types Packs/Day [...] encounter Progress Notes * Christine Gomez - 07/14/2021 11:59 PM EST The [facility] has completed a benefits investigation for Page Katz to review their eligibility to fill at [facility]. Per patient's medication list they are prescribed Adalimumab (Humira) and the medication is able to be filled at the [facility]; however, the patient fills with the cable dispatcher due to the high co-pay at retail. documented in this encounter Plan of Treatment Upcoming Encounters Date Type Department Care Team (Late st Contact Info) Description 05/15/2024 1:00 PM EDT TH Visit (TeleHealth) [place] [address] Pasha Wood MD [facility] [place] [address] documented as of this encounter Visit Diagnoses Not on filedocumented in this encounter Care Teams Water Sander Relationship Specialty Start Date End Date Nathalie Bain MD [address] [place] [address] [address] [place] [address] PCP - General Family Medicine 06/28/16 12/20/21 documented as of this encounter
--- OUTSIDE RECORDS SUMMARY | 2024-03-27 20:53 | XMS_ITS | Encounter Summary ---
[place] [address] Care Team Providers Care Valve Repairer Name Role Phone Latha Aguirre MD Primary Care Provider Reason for Visit * Reason Comments Specialty Pharmacy Review Adalimumab (Hu estiven) Pen 40mg/0.4mL Encounter Details Date Type Department Care Team (Late st Contact Info) Description 06/28/2023 Specialty [place] [address] Christine Gomez, LEGEND MAKER Social History Tobacco Use Types Packs/Day Years [...] encounter Progress Notes * Christine Gomez - 06/28/2023 11:59 PM EST [facility] has completed a benefits investigation for Page Katz to review their eligibility to fill at [facility]. Per patient's medication list they are prescribed Humira and the medication is able to be filled at the [facility], but the medication cost may not be financially viable. documented in this encounter Plan of Treatment Upcoming Encounters Date Type Department Care Team (Late st Contact Info) Description 05/15/2024 1:00 PM EDT TH Visit (TeleHealth) [place] [address] Pasha Wood MD [facility] [place] [address] documented as of this encounter Visit Diagnoses Not on filedocumented in this encounter Care Teams Valve Repairer Relationship Specialty Start Date End Date Latha Aguirre MD [address] [place] [address] PCP - General Family Medicine 06/28/23 documented as of this encounter
--- OUTSIDE RECORDS SUMMARY | 2024-03-27 20:53 | XMS_ITS | Encounter Summary ---
[place] [address] Care Team Providers Care Slitter Scorer Name Role Phone Nathalie Bain MD Primary Care Provider Reason for Visit * Reason Comments Prior Authorization Humira Pen 40 mg/0.4 ml PNKT Encounter Details Date Type Department Care Team (Late st Contact Info) Description 05/05/2021 Specialty [place] [phone] Serge Mckeon CPHT Social History Tobacco Use Types Packs/Day Years Used Date Smoking Tobacco: Never Smokeless Tobacco: Never Alcohol Use Standard Drinks/Week Comments No 0 (1 standard drink = 0.6 oz pur e alcohol) Sex and Gender Information Value Date Recorded Sex Assigned at Not on file Gender Identity Not on file Sexual Orientation Not on file documented as of this encounter Progress Notes * Serge Mckeon CPHT - 05/05/2021 3:14 PM EDT [facility], Medication Prior Authorization Patient: Page Katz Patient : 1950 Patient Address: [address] [place] [phone] (home) Medication Name: HUMIRA(CF) PEN 40 MG/0.4 ML SUBCUTANEOUS KIT Medication ID: [id number] Patient Location: [facility] R[facility]Y 5C Patient Location Comment: Subscriber Insurance: [employer] Medicare Subscriber Insurance Comment: Fax: Physician: ZANDER ABRAHAM Physician Comment: Sent Via: [facility] Juares: [id number] Ref/Case/PA#: Medication Strength Frequency Requested: Humira Pen 40 mg/0.4 ml PNKT Inject 40 mg (1 Pen) Subcutaneously Every 14 Days Qty/Day Supply: 09/26 New Start: New to Therapy Diagnosis & ICD-10 Code: Rheumatoid Arthritis M06.00 Patient Notified: Yes Submission Notes: New Medication Serge Mckeon CPHT 05/05/21 3:16 PM * Serge Mckeon CPHT - 05/05/2021 3:14 PM EDT [facility], Prior Authorization Approval Medication Name: HUMIRA(CF) PEN 40 MG/0.4 ML SUBCUTANEOUS KIT Medication ID: [id number] Approval Dates: 07/30/2020 to 07/29/2021 Insurance requirements/notes: Patient May Fill With Pharmacy. Other Notes: None Case/Reference #: [id number] Approval notification Received via: [facility] Copay: $1,584.24 Copay assistance: Patient Assistance Referral Copay Notes: Patient Is Not Eligible For A Copay Card - [facility] Insurance. Insurance mandated Pharmacy: [facility] Fillable at [facility]: Yes Pharmacy staff will be reaching out to the patient to inform them of their [facility]. If applicable, a pharmacist will speak with the patient to offer our specialty pharmacy services and to arrange delivery of their medication. Serge Mckeon CPHT 05/05/21 3:22 PM documented in this encounter Plan of Treatment Upcoming Encounters Date Type Department Care Team (Late st Contact Info) Description 05/15/2024 1:00 PM EDT TH Visit (TeleHealth) [place] [address] Zander Abraham MD [facility] [place] [address] documented as of this encounter Visit Diagnoses Not on filedocumented in this encounter Care Teams Slitter Scorer Relationship Specialty Start Date End Date Nathalie Bain MD [address] [place] [address] PCP - General Family Medicine 06/28/16 12/20/21 documented as of this encounter
--- OUTSIDE RECORDS SUMMARY | 2024-03-27 20:53 | XMS_ITS | Encounter Summary ---
Author Organization [facility] [place] [address] Care Team Providers Care Conservation Engineer Name Role Phone Unavailable Primary Care Provider Unavailabl e Reason for Visit * Reason Comments Follow-up Seronegative rheumat oid arthritis Encounter Details Date Type Department Care Team (Latest Contact Info) Description 04/06/2022 3:30 PM EDT TH Visit (TeleHealth) [place] [address] Pasha Wood MD [facility] [place] [address] Seronegative rheumatoid arthritis Social History Tobacco Use [...] Progress Notes * Pasha Wood MD - 04/06/2022 3:30 PM EDT Chief rheumatologic issue: Page Katz is [...] by Dr. Dharmesh Cummings who was a survey associate emeritus at [employer] [facility] [place]. He confirmed the diagnosis of [...] Stiffness in the MCPs especially. Difficulty with technician support association. Has other aches and pains yet not [...] June. Also saw Dr. Pasha Govea at [facility] podiatry and had nailbed surgery on both [...] most recent laboratory tests were done at [facility] 2020. I checked in the electronic [...] pharmacy. She received medication assistance from the group captain. She just received her first delivery ofadalimumab. [...] series. 09-15-2021 Interval events: Last visit with mn 07-14-2021. First dose of adalimumab was 07-14-2021. [...] medications. 03-09-2022 Interval Events: Last visit with mn 09-15-2020. First dose of adalimumab was 07-14-2021. 5 injections so far. No sitereactions. Feeling well overall with respect to her joint symptoms Covid vaccinations with Moderna x 4. Had Covid October 2020. Smell and taste have not come back. Was previously seen by Dr. Bain and BUSINESS SYSTEMS ARCHITECT in her office. Had MRI at [facility] about one month ago due to [...] achey. Legs not hurting all the time Review of Systems: No fevers. No viral symptoms. Still with prominent fatigue. HEENT: No mouth sores. No facial rash. Hydroxychloroquine stopped due to hair thinning. Diffuse myalgias and arthralgias. No chest pain or palpitations. No cough wheezing or shortness of breath. No upper or lower GI symptoms. Depressed feeling on buproprion and duloxetine. Allergies include: Atorvastatin and Fentanyl Current Outpatient [...] mouth. 2 days a week ??? aspirin (OnAir Player ASPIRIN) 81 mg chewable tablet ??? acetaminophen (TYLENOL) 325 mg Tablet Take 650 mg by mouth every 4 hours as needed for Pain. ??? levothyroxine (SYNTHROID) 150 mcg tablet Take 1 tablet by mouth daily. (Patient not taking: Reported on 09/09/2020) 90 tablet 3 ??? Dhpqpwxmfwcnm-Zo-Eoia-Minerals (ONE-A-DAY WOMENS FORMULA) 27-0.4 mg Tab (Patient [...] was having significant hair loss and fatigue. The increase in prednisone to 5 mg from 2 mg has seemed to be very effective. I am hopeful that we will be able to continue adalimumab as her biologic DMARD as this is well-tolerated. Given the fact that she has some loose stooling for approximately 1 week after taking adalimumab I do not think it would be reasonable to try to decrease her dosing interval. There are no recent laboratory testing since stopping methotrexate. May also consider the use of Priyank [...] adalimumab 40 mg every other week. Continue prednisone 5 mg daily 34 minutes total spent on this visit including precharting, review of laboratory, notes from other providers, xelg-jr-[id number] interaction, and documentation. documented in this encounter Plan of Treatment Upcoming Encounters Date Type Department Care Team (Late st Contact Info) Description 05/15/2024 1:00 PM EDT TH Visit (TeleHealth) [place] [address] Pasha Wood MD [facility] [place] [address] documented as of this encounter Visit Diagnoses Diagnosis Seronegative rheumatoid arthritis Rheumatoid arthritis documented in this encounter
--- OUTSIDE RECORDS SUMMARY | 2024-03-27 20:53 | XMS_ITS | Encounter Summary ---
Author Organization Formerly [facility] [place] [address] Care Team Providers Care Global Safety Officer Name Role Phone Unavailable Primary Care Provider Unavailabl e Reason for Referral * Physical Therapy (Routine) - Closed Specialty Diagnoses / Procedures Referred By Justen javier Referred To Contact Physical Therapy Diagnoses Seronegative rheumatoid arthritis Pasha Wood MD [facility] [place] [address] [place] [address] Referral ID Status Reason Start Date Expiration Date V isits Requested Visits Authorized [id number] Closed Evaluate and Treat 03/09/2022 09/05/2022 12 12 Reason for Visit * Reason Comments Follow-up Encounter Details Date Type Department Care Team (Late st Contact Info) Description 03/09/2022 1:30 PM EDT [place] [address] Pasha Wood MD [facility] [place] [place] [address] Seronegative rheumatoid arthritis Social History Tobacco Use [...] Sign Reading Time Taken Comments Blood Pressure 142/62 03/09/2022 1:31 PM EDT Pulse 86 03/09/2022 1:31 PM EDT Temperature - - Respiratory Rate 18 03/09/2022 1:31 PM EDT Oxygen Saturation 100% 03/09/2022 1:31 PM EDT Inhaled Oxygen Concentration - - Weight 99 kg (218 lb 4.8 oz) 03/09/2022 1:31 PM EDT Height 158.8 cm (5' 2.5) 03/09/2022 1:31 PM EDT Body Mass Index 39.29 03/09/2022 1:31 PM EDT documented in this encounter Patient Instructions * Patient Instructions* Pasha Wood MD - 03/09/2022 1:30 PM EDT I will be in touch with [facility] Referral to Counselor I will send some leg exercises and graded exercise program Referral to PT at [facility] Increase prednisone to 5 mg daily * Attachments The following attachments cannot be sent through Care Everywhere. * Posterior Cruciate Ligament Sprain: Rehab Exercises ([place]) documented in this encounter Progress Notes * Pasha Wood MD - 03/09/2022 1:30 PM EDT Chief rheumatologic issue: Page Katz [...] by Dr. Dharmesh Cummings who was a gold leaf layer emeritus at [facility]. He confirmed the diagnosis of polymyalgia rheumatica [...] Stiffness in the MCPs especially. Difficulty with laboratory equipment cleaner. Has other aches and pains yet not [...] June. Also saw Dr. Pasha Govea at [facility] podiatry and had nailbed surgery on [...] most recent laboratory tests were done at [facility] 2020. I checked in the electronic medical [...] pharmacy. She received medication assistance from the special procedures technologist. She just received her first delivery ofadalimumab. [...] medications. 03-09-2022 Interval Events: Last visit with wa 09-15-2020. First dose of adalimumab was 07-14-2021. 5 injections so far. No sitereactions. Feeling well overall with respect to her joint symptoms Covid vaccinations with Moderna x 4. Had Covid October 2020. Smell and taste have not come back. Was previously seen by Dr. Bain and TRAFFIC ANALYSIS TECHNICIAN in her office. Had MRI at [facility] about one month ago due to [...] Reported on 09/09/2020) 90 tablet 3 ??? Jxzcaoexobvgp-Pa-Ynzo-Minerals (ONE-A-DAY WOMENS FORMULA) 27-0.4 mg Tab (Patient not taking: Nosig reported) Allergies Allergen Reactions ??? Atorvastatin Other reaction(s): elevated LFTs ??? Fentanyl Other reaction(s): altered mental status ??? Other [Unclassified Drug] Other (See Comments) Pain Patch(drug unknown) Fentanyl- confused hallucinations Physical Exam: BP 142/62 Pulse 86 Resp 18 Ht 158.8 cm (5' 2.5) Wt 99 kg (218 lb 4.8 oz) SpO2 100% BMI39.29 kg/m?? Telemedicine visit. Televideo ?General appearance and movement: alert, nontoxic. Pleasant and interactive ?HEENT: anicteric sclerae, conjunctivae clear Appropriate speech thought and content. Not exaqmined this visit. Most of appointment spent exploring mood issues. ? Labs: ? 03/29/2011: Rheumatoid factor negative. [...] rheumatoid arthritis 1. Seronegative rheumatoid arthritis: She does not appear to be doing as well with adalimumab 40 mgevery 2 weeks and prednisone 2 mg daily. Methotrexate was discontinued due to liver function abnormalities in transaminases and diagnosis of nonalcoholic fatty liver disease. She was having significant hair loss and fatigue. Not that much better after stopping methotrexate and now her musculoskeletal symptoms are more active. I suspect we may need to consider switching to a different therapy thenadalimumab. Given the fact that she has loose stooling for approximately 1 week after taking adalimumab I do not think it would be reasonable to try to decrease her dosing interval. There are no recent laboratory testing since stopping methotrexate. May consider the use of Priyank inhibitor such as tofacitinib 2. NAFLD (nonalcoholic fatty liver disease): As above. 3. Vitamin D deficiency: She will continue her vitamin D supplementation and her multivitamin. I previously recommended increasing vitamin D intake by 1000 international units daily. Goal is 40-60 for vitamin D. I previously also recommended dietary calcium. 4. Depression: She is very depressed and tearful during the appointment. I would like to address this. I think she would benefit from a counselor. She may need to have medications addressed. She doesnot seem to be doing well with respect to mood on combination of bupropion and duloxetine. I do think that she would benefit from regular counseling additionally. Plan: Continue adalimumab 40 mg every other week. Increase prednisone to 5 mg daily 46 minutes total spent on this visit including precharting, review of laboratory, notes from other providers, vnia-eo-[id number] interaction, and documentation. documented in this encounter Plan of Treatment Upcoming Encounters Date Type Department Care Team (Late st Contact Info) Description 05/15/2024 1:00 PM EDT TH Visit (TeleHealth) Rheumatology at [facility] [address] Pasha Wood MD [facility] [place] [address] Scheduled Referrals Name Type Priority Associated Diagnoses Orde r Schedule Referral to Physical Therapy Outpatient Referral Routine Seronegative rheumatoid arthritis Ordered: 03/09/2022 documented as of this encounter Visit Diagnoses Diagnosis Seronegative rheumatoid arthritis Rheumatoid arthritis documented in this encounter
--- OUTSIDE RECORDS SUMMARY | 2024-03-27 20:53 | XMS_ITS | Encounter Summary ---
Author Organization [facility] [place] [address] Care Team Providers Care Director Property Name Role Phone Nathalie Bain MD Primary Care Provider Encounter Details Date Type Department Care Team (Late st Contact Info) Description 07/14/2021 Orders [place] [phone] Pasha Wood MD [facility] [place] [address] [place] [address] Hypercalcemia Social History Tobacco Use Types Packs/Day Years [...] PM EDT TH Visit (TeleHealth) [place] [phone] Pasha Wood MD [facility] [place] [address] [place] [address] documented as of this encounter Visit Diagnoses Diagnosis Hypercalcemia documented in this encounter Care Teams Director Property Relationship Specialty Start Date End Date Nathalie Bain MD [address] [place] [address] PCP - General Family Medicine 06/28/16 12/20/21 documented as of this encounter
--- OUTSIDE RECORDS SUMMARY | 2024-03-27 20:53 | XMS_ITS | Encounter Summary ---
[place] [address] Care Team Providers Care Gi Asst Name Role Phone Unavailable Primary Care Provider Unavailabl e Reason for Visit * Reason Comments Specialty Pharmacy Review Humira Pen 40m g/0.4ml Encounter Details Date Type Department Care Team (Late st Contact Info) Description 12/22/2021 Specialty [place] [address] Flaca Israel, [facility] Social History Tobacco Use Types [...] as of this encounter Progress Notes * Flaca Israel - 12/22/2021 11:59 PM EDT The [facility] has completed a benefits investigation for Page Katz to review their eligibility to fill at [facility]. Per patient's medication list they are prescribed Humira Pen 40mg/0.4ml and the medication is able to be filled at the [facility], but the medication cost may not be financially viable. Page is approved for [employer] patient assistance for Humira through 07/29/2022 documented in this encounter Plan of Treatment Upcoming Encounters Date Type Department Care Team (Late st Contact Info) Description 05/15/2024 1:00 PM EDT TH Visit (TeleHealth) [place] [address] Pasha Wood MD [facility] [place] [address] documented as of this encounter Visit Diagnoses Not on filedocumented in this encounter
--- OUTSIDE RECORDS SUMMARY | 2024-03-27 20:53 | XMS_ITS | Encounter Summary ---
Author Organization [facility] [place] [address] Care Team Providers Care Senior Hr Business Partner Name Role Phone Unavailable Primary Care Provider Unavailabl e Encounter Details Date Type Department Care Team (Latest Contact Info) Description 02/15/2023 Travel Social History Tobacco Use Types Packs/Day [...] PM EDT TH Visit (TeleHealth) [place] [address] Pasha Wood MD [facility] [place] [address] documented as of this encounter Visit Diagnoses Not on filedocumented in this encounter
--- OUTSIDE RECORDS SUMMARY | 2024-03-27 20:53 | XMS_ITS | Encounter Summary ---
Author Organization [place] [address] Care Team Providers Care Jersey Knitter Name Role Phone Unavailable Primary Care Provider Unavailabl e Encounter Details Date Type Department Care Team (Late st Contact Info) Description 06/08/2022 Specialty [place] [address] Gilda Thomas, TUBE LASER OPERATOR Social History Tobacco Use Types Packs/Day Years Used Date Smoking Tobacco: Never Smokeless Tobacco: Never Alcohol Use Standard Drinks/Week Comments No 0 (1 standard drink = 0.6 oz pur e alcohol) Sex and Gender Information Value Date Recorded Sex Assigned at Not on file Gender Identity Not on file Sexual Orientation Not on file documented as of this encounter Progress Notes * Gilda Thomas - 06/08/2022 1:34 PM ESTSummary: Humira MAP re-enrollment [facility] - Cosmetician Assistance Submission The Specialty Medication Access Team has looked into copay assistance for the following patient, but was unable to locate a copay card or tim foundation with available funding. The Specialty Medication Access Team will work with the patient to complete an application to the access control specialist's assistance program. The Specialty Medication Access Team will follow up with the patient throughout the process. Patient: Page Katz : 1950 Medication: Humira pen 40mg/0.4mL pnkt Order ID: [id number] Directions: Inject one pen subq every 14 days Dispense Quantity: 2 mL # of Refills: 5 Prescriber Name: Pasha Wood MD Diagnosis/ICD-10 code: L40.9 Insurance: [employer] Medicare Medicare Part D?: Yes [place] Approved? Yes Current copay is: $$$ Patient notified of copay and attests that copay is unaffordable: Yes Cosmetician: [employer] Member: N/A Phone number: [phone] Fax number: [phone] Patient documents submitted (per Cosmetician guidelines - may vary): ??? Copies of insurance cards: Yes ??? Income verification documents: Yes ??? Signed Patient Enrollment Form: Yes ??? Pharmacy receipts (important for manufacturers requesting patient to spend 3% income on pharmacy expenses): Yes Additional Comments: Gilda Thomas 06/08/22 1:35 PM Next Review Date: * Uche Colmenares - 06/08/2022 1:34 PM EST [facility] - Cosmetician Assistance Approval The Specialty Medication Access Team has looked into access control specialist assistance for the following patient. The patient???s application was approved to receive the medication at no cost through the access control specialist. The Specialty Medication Access Team will inform the patient and provider. Patient: Page Katz : 1950 Medication: Humira pen 40mg/0.4mL pnkt? Cosmetician: [employer] Cosmetician Assistance Approval Dates: 07/30/2022 to 07/29/2023 Cosmetician Preferred Pharmacy: [facility] Cosmetician Preferred Pharmacy Phone Number: Cosmetician Preferred Pharmacy Fax Number: Patient Notified: Yes Prescriber Notified: Yes Note: Patient approved for 2022, the patient will still need to submit completed application in thespring of . Uche Colmenares 06/14/22 8:30 AM documented in this encounter Plan of Treatment Upcoming Encounters Date Type Department Care Team (Late st Contact Info) Description 05/15/2024 1:00 PM EDT TH Visit (TeleHealth) [place] [address] Pasha Wood MD [facility] [place] [address] documented as of this encounter Visit Diagnoses Not on filedocumented in this encounter
--- OUTSIDE RECORDS SUMMARY | 2024-03-27 20:53 | XMS_ITS | Encounter Summary ---
[place] [address] Care Team Providers Care Center Receptionist Name Role Phone Nathalie Bain MD Primary Care Provider Reason for Visit * Reason Comments Specialty Pharmacy Review Adalimumab (Hu estiven) Encounter Details Date Type Department Care Team (Late st Contact Info) Description 05/05/2021 Specialty Pharm[place] [id number] Destiny Eaton, [facility] Social History Tobacco Use Types Packs/Day [...] encounter Progress Notes * Christine Gomez - 05/05/2021 11:24 AM EDT [facility] has completed a benefits investigation for Page Katz to review their eligibility to fill at [facility]. 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 documented in this encounter Plan of Treatment Upcoming Encounters Date Type Department Care Team (Late st Contact Info) Description 05/15/2024 1:00 PM EDT TH Visit (TeleHealth) [place] [address] Pasha Wood MD [facility] [place] [address] documented as of this encounter Visit Diagnoses Not on filedocumented in this encounter Care Teams Center Receptionist Relationship Specialty Start Date End Date Nathalie Bain MD [address] [place] [address] PCP - General Family Medicine 06/28/16 12/20/21 documented as of this encounter
--- OUTSIDE RECORDS SUMMARY | 2024-03-27 20:53 | XMS_ITS | Encounter Summary ---
[place] [address] Care Team Providers Care Senior Private Client Advisor Name Role Phone Unavailable Primary Care Provider Unavailabl e Reason for Visit * Reason Comments Specialty Pharmacy Review Adalimumab (Hu estiven) Pen 40mg/0.4mL Encounter Details Date Type Department Care Team (Late st Contact Info) Description 02/15/2023 Specialty [place] [address] Christine Gomez, [facility] Social History Tobacco Use Types Packs/Day [...] encounter Progress Notes * Christine Gomez - 02/15/2023 11:59 PM EDT The [facility] has completed a benefits investigation for Page Katz to review their eligibility to fill at [facility]. 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 documented in this encounter Plan of Treatment Upcoming Encounters Date Type Department Care Team (Late st Contact Info) Description 05/15/2024 1:00 PM EDT TH Visit (TeleHealth) [place] [address] Pasha Wood MD [facility] [address] documented as of this encounter Visit Diagnoses Not on filedocumented in this encounter
--- OUTSIDE RECORDS SUMMARY | 2024-03-27 20:54 | XMS_ITS | Encounter Summary ---
Author Organization [facility] [place] [address] Care Team Providers Care Animation Camera Operator Name Role Phone Nathalie Bain MD Primary Care Provider Encounter Details Date Type Department Care Team (Latest Contact Info) Description 04/07/2021 External Results [facility] Information [facility] [address] [place] [address] Provider, His Ketan MD None Seronegative rheumatoid arthritis Social History Tobacco Use [...] PM EDT TH Visit (TeleHealth) [place] [address] Pasha Wood MD [facility] [address] documented as of this encounter Procedures Procedure Name Priority Date/Time Associated Diagnosis Comments CRP, ACUTE INFLAMMATION Routine 04/07/2021 9:51 AM EDT Seronegative rheumatoid arthritis CBC (WITH DIFF) Routine 04/07/2021 9:51 AM EDT Seronegative rheumatoid arthritis COMPREHENSIVE METABOLIC PANEL Routine 04/07/2021 9:51 AM EDT Seronegative rheumatoid arthritis documented in this encounter Results * (ABNORMAL) CRP, acute inflammation (04/07/2021 9:51 AM EDT) C-Reactive Protein 0.54(EXTER NAL/ABN) EXTERNAL LAB Blood 04/07/2021 9:51 AM EDT Pasha Wood MD CHEMISTRY ORDERABLES Performing Organization Address [facility]/ZIP Co de Phone Number EXTERNAL LAB * (ABNORMAL) Comprehensive metabolic panel (non-fasting) (04/07/2021 9:51 AM EDT) Glucose 97(Manager Pacu al Lab) EXTERNAL LAB Blood Urea Nitrogen 13(Manager Pacu al Lab) EXTERNAL LAB Creatinine 0.8(Exter nal Lab) EXTERNAL LAB Est Glomerular Filtration Rate >=60.00(E xternal Lab) EXTERNAL LAB Calcium 9.7(Exter nal Lab) EXTERNAL LAB Protein, Total 6.9(Exter nal Lab) EXTERNAL LAB Albumin 3.4(Exter nal Lab) EXTERNAL LAB Bilirubin, Total 0.5(Exter nal Lab) EXTERNAL LAB Alkaline Phosphatase 73(Manager Pacu al Lab) EXTERNAL LAB Sodium 142(Exter nal Lab) EXTERNAL LAB Potassium 3.8(Exter nal Lab) EXTERNAL LAB Chloride 106(Exter nal Lab) EXTERNAL LAB Carbon Dioxide 29(Manager Pacu al Lab) EXTERNAL LAB Anion Gap 7(Externa l Lab) EXTERNAL LAB Aspartate Aminotransferase 28(Manager Pacu al Lab) EXTERNAL LAB Alanine Aminotransferase 34(Manager Pacu al Lab) EXTERNAL LAB Blood 04/07/2021 9:51 AM EDT Pasha Wood MD CHEMISTRY ORDERABLES Performing Organization Address City/[facility]/ZIP Co de Phone Number EXTERNAL LAB * (ABNORMAL) CBC (with Diff) (04/07/2021 9:51 AM EDT) White Blood Cell 6.32(Exte rnal Lab) EXTERNAL LAB Red Blood Cell 4.11(Exte rnal Lab) EXTERNAL LAB Hemoglobin 13.2(Exte rnal Lab) EXTERNAL LAB Hematocrit 41.0(Exte rnal Lab) EXTERNAL LAB Mean Cell Volume 99.8(EXTE RNAL/ABN) EXTERNAL LAB Mean Cell Hemoglobin 32.1(Exte rnal Lab) EXTERNAL LAB Mean Cell Hemoglobin Concentration 32.2(Exte rnal Lab) EXTERNAL LAB RDW coefficient of variation 14.7(EXTE RNAL/ABN) EXTERNAL LAB Platelet 407(EXTER NAL/ABN) EXTERNAL LAB Mean Platelet Volume 9.1(Exter nal Lab) EXTERNAL LAB Neutrophil % 65.5(Exte rnal Lab) EXTERNAL LAB Lymph % 16.9(Exte rnal Lab) EXTERNAL LAB Monocyte % 11.2(Exte rnal Lab) EXTERNAL LAB Eosinophil Manual 5.1(Exter nal Lab) EXTERNAL LAB Basophil % 0.8(Exter nal Lab) EXTERNAL LAB Immature Gran % 0.5(Exter nal Lab) EXTERNAL LAB ANC 4.14(Exte rnal Lab) EXTERNAL LAB Lymph Absolute Manual 1.07(EXTE RNAL/ABN) EXTERNAL LAB Monocyte Abs 0.71(Exte rnal Lab) EXTERNAL LAB Eos Absolute Manual 0.32(Exte rnal Lab) EXTERNAL LAB Baso Absolute Manual 0.05(Exte rnal Lab) EXTERNAL LAB Blood 04/07/2021 9:51 AM EDT Pasha Wood MD HEMATOLOGY ORDERABLE S EXTERNAL LAB documented in this encounter Visit Diagnoses Diagnosis Seronegative rheumatoid arthritis Rheumatoid arthritis documented in this encounter Care Teams Animation Camera Operator Relationship Specialty Start Date End Date Nathalie Bain MD [address] [place] [address] PCP - General Family Medicine 06/28/16 12/20/21 documented as of this encounter
--- OUTSIDE RECORDS SUMMARY | 2024-03-27 20:54 | XMS_ITS | Encounter Summary ---
Author Organization Formerly [facility] Address [facility] [place] [address] Care Team Providers Care Machine Bander And Cellophaner Name Role Phone Bell Pereira MD Primary Care Provider [phone] Reason for Visit * Reason Comments GI Problem * Auth/Cert Specialty Diagnoses / Procedures Referred By Justen javier Referred To Contact Diagnoses Personal history of other diseases of the digestive system Personal history of other medical treatment hx crohns- hx bowel resection Fiberscan @11:30am Procedures PRO ILEOSCOPY THRU STOMA, BIOPSY ILEOSCOPY W/ BIOPSY Referral ID Status Reason Start Date Expiration Date Visits Re quested Visits Authorized [id number] 1 1 Encounter Details Date Type Department Care Team (Latest Contact Info) Description 12/09/2015 11:30 AM EDT Procedure [place] [address] Nu Resendiz, RO[employer]ING M[employer] OPERATOR [facility] [place] [place] [address] NAFLD (nonalcoholic fatty liver disease) Social History [...] Sign Reading Time Taken Comments Blood Pressure 151/69 12/09/2015 10:59 AM EDT Pulse 76 12/09/2015 10:59 AM EDT Temperature - - Respiratory Rate - - Oxygen Saturation - - Inhaled Oxygen Concentration - - Weight 93.9 kg (207 lb) 12/09/2015 10:59 AM EDT Height 158.8 cm (5' 2.5) 12/09/2015 10:59 AM ED T Body Mass Index 37.26 12/09/2015 10:59 AM EDT documented in this encounter Progress Notes * Nu Resendiz APRN - 12/09/2015 12:05 PM EDT [facility] Hepatology Fibrosis Assessment Patient: Page Katz Gender: female : 1950 Provider: Nu Resendiz NP Referring Physician: Iasel Christianson Liver disease diagnosis: NAFLD Page Katz is a 65 y.o. female with NAFLD and hx of crohn's disease. She had a liver biopsy at the time of her gallbladder surgery about 6 years ago, told she had fatty liver at that time. In the past year she has been trying to lose weight through weight watchers, pool aerobics. No known history of GI bleeding, ascites, edema, encephalopathy or muscle mass loss. Currently is asymptomatic. PROBLEM LIST Patient Active Problem List Diagnosis Code ??? S/P thyroidectomy E89.0 ??? Thyroid cancer C73 ??? Hypothyroidism E03.9 ??? 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 Endometrial cancer C54.1 ??? NAFLD (nonalcoholic fatty liver disease) K76.0 MEDICATIONS: Outpatient Prescriptions Marked as Taking for the 12/09/15 encounter (Procedure visit) with Nu Resendiz APRN Medication Sig Dispense Refill ??? losartan (COZAAR) 100 mg Tablet Take 100 mg by mouth daily. ??? predniSONE (DELTASONE) 10 mg Tablet Take 5 mg by mouth daily. ??? hydroxychloroquine (PLAQUENIL) 200 mg Tablet Take 400 mg by mouth daily. ??? methotrexate 2.5 mg Tablet Take 2.5 mg by mouth once a week. 5 tablets ??? acetaminophen (TYLENOL) 325 mg Tablet Take 650 mg by mouth every 4 hours as needed for Pain. ??? levothyroxine (SYNTHROID) 125 mcg Tablet Take 125 mcg by mouth. 2 days a week ??? levothyroxine (SYNTHROID) 150 mcg tablet Take 1 tablet by mouth daily. 90 tablet 3 ??? aspirin ([employer] ASPIRIN) 81 mg chewable tablet ??? Gyogxfyyeafft-Qu-Emhd-Minerals (ONE-A-DAY WOMENS FORMULA) 27-0.4 mg Tab ALLERGIES/ADR Allergies Allergen Reactions ??? Other [Unclassified Drug] Other (See Comments) Pain Patch(drug unknown) - confused hallucinations PHYSICAL EXAMINATION: Filed Vitals: 12/09/15 1059 BP: 151/69 Pulse: 76 Height: 158.8 cm (5' 2.5) Weight: 93.895 kg (207 lb) Body mass index is 37.23 kg/(m^2). GEN: Healthy in appearance, no acute distress. SKIN: No rashes or abnormal lesions noted. No stigmata of chronic liver disease HEENT: Nonicteric sclera, no oral lesions NECK: No lymphadenopathy or thyromegaly LUNGS: Clear to auscultation bilaterally COR: Regular, normal S1 and S2 without murmurs ABD: Soft and non-distended. Normal active bowel sounds.No ascites. No hepatosplenomegaly. EXT: No edema, cyanosis or edema PERTINENT LABS AND IMAGING: Lab Results Component Value Date WBC 13.4* 05/29/2014 HGB 9.7* 05/29/2014 HCT 30.5* 05/29/2014 MCV 95.3* 05/29/2014 No results found for: ALT, AST, GGT, ALKPHOS, BILITOT Chemistry Component Value Date/Time NA 144 05/29/2014337 K 3.6 05/29/2014337 CL 104 05/29/2014337 CO2 30 05/29/2014337 BUN 8 05/29/2014337 CREATININE 0.58* 05/29/2014337 Component Value Date/Time CALCIUM 8.9 05/29/2014337 Procedure: Vibration Controlled Transient Elastography (VCTE) or Fibroscan [place] Protocol: Patient's identity, procedure and site were verified, confirmatory pause performed. Discussed procedure including risks and potential complications. Questions answered. Patient verbalizes understanding and wishes to proceed with Fibroscan assessment. Patient was placed in the supine position with right arm in maximum abduction to allow optimal exposure of right lateral abdomen. Patient was briefly assessed. Testing was performed in the mid-axillary location. 50Hz Shear Wave pulses were applied and the resulting Shear Wave and Propagation Speed was detected with a 3.5MHz ultrasonic signal, using the Fibroscan probe. Skin to liver capsule distance and liver parenchyma were accessed during the entire examination with the Fibroscan probe. Patient was instructed to breathe normally and abstain from sudden movements during the procedure. At least ten Sheer Waves were produced; individual measurements of each Shear Wave were calculated. Patient tolerated the procedure well with no complications. Fibroscan Results: Mean kPa: 4.1 kPa Mean IQR: (goal is <30 %) 21% Success rate: (goal is >60%) 91% Predicted fibrosis stage: F0-F1 Interpretation: Page Katz is a 65 y.o. female with NAFLD. Based on her Fibroscan results, history, clinicalexamination and review of her laboratory and radiological data, patient likely has no or minimal liver fibrosis (F0-1). I encouraged her recent lifestyle changes and attempts to lose weight. She will follow up with her primary GI provider, Dr. Abel. The patient was given my contact information and will call me with concerns or questions Nu Resendiz APRN Section of Gastroenterology [place] [address] Cc: BELL PEREIRA MD [address] / [facility] [address] documented in this encounter Plan of Treatment Upcoming Encounters Date Type Department Care Team (Late st Contact Info) Description 05/15/2024 1:00 PM EDT TH Visit (TeleHealth) [place] [address] [facility] [address] documented as of this encounter Visit Diagnoses Diagnosis NAFLD (nonalcoholic fatty liver disease) Other chronic nonalcoholic liver disease documented in this encounter Care Teams Machine Bander And Cellophaner Relationship Specialty Start Date End Date Bell Pereira MD [address] [place] [address] PCP - General 06/21/10 06/27/16 documented as of this encounter
--- OUTSIDE RECORDS SUMMARY | 2024-03-27 20:54 | XMS_ITS | Encounter Summary ---
[place] [address] Care Team Providers Care Games Dealer Name Role Phone Bell Navarrete MD Primary Care Provider [phone] Encounter Details Date Type Department Care Team (Late st Contact Info) Description 06/10/2014 Multidisciplinary Ca re Committee [place] [phone] Kylee Espinosa RN Social History Tobacco Use Types Packs/Day Years Used Date Smoking Tobacco: Never Smokeless Tobacco: Never Alcohol Use Standard Drinks/Week Comments No 0 (1 standard drink = 0.6 oz pur e alcohol) Sex and Gender Information Value Date Recorded Sex Assigned at Not on file Gender Identity Not on file Sexual Orientation Not on file documented as of this encounter Progress Notes * Kylee Espinosa RN - 06/10/2014 4:44 PM EST Patient Name: Page Katz Patient Age: 63 y.o. Birthdate: 1950 Attending Physician: Dr. 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 complex hyperplasia with atypia and partial involvement of a polyp Tumor board options: surveillance; genetic testing Recommendations: surveillance; genetic testing documented in this encounter Plan of Treatment Upcoming Encounters Date Type Department Care Team (Late st Contact Info) Description 05/15/2024 1:00 PM EDT TH Visit (TeleHealth) [place] [address] Pasha Wood MD [facility] [place] [address] documented as of this encounter Visit Diagnoses Not on filedocumented in this encounter Care Teams Games Dealer Relationship Specialty Start Date End Date Bell Navarrete MD [address] [place] [address] PCP - General 06/21/10 06/27/16 documented as of this encounter
--- OUTSIDE RECORDS SUMMARY | 2024-03-27 20:54 | XMS_ITS | Encounter Summary ---
[place] [address] Care Team Providers Care Licensing Representative Name Role Phone Nathalie Bain MD Primary Care Provider [phone] Encounter Details Date Type Department Care Team (Late st Contact Info) Description 03/24/2021 Telephone [place] [phone] Rossy Lerner Social History Tobacco Use Types Packs/Day Years [...] encounter Miscellaneous Notes * Telephone Encounter - Rossy Lerner - 03/24/2021 12:19 PM EDT VM left with pt to cb and book fuv with Dr. Wood documented in this encounter Plan of Treatment Upcoming Encounters Date Type Department Care Team (Late st Contact Info) Description 05/15/2024 1:00 PM EDT TH Visit (TeleHealth) [place] [phone] Pasha Wood MD [facility] [place] [address] documented as of this encounter Visit Diagnoses Not on filedocumented in this encounter Care Teams Licensing Representative Relationship Specialty Start Date End Date Nathalie Bain MD [address] [place] [address] PCP - General Family Medicine 06/28/16 12/20/21 documented as of this encounter
--- OUTSIDE RECORDS SUMMARY | 2024-03-27 20:54 | XMS_ITS | Encounter Summary ---
Author Organization [facility] Address [facility] [place] [address] Care Team Providers Care Sap Bpc Architect Name Role Phone Bell Navarrete MD Primary Care Provider [phone] Reason for Visit * Auth/Cert Specialty Diagnoses / Procedures Referred By Justen javier Referred To Contact Diagnoses Personal history of other diseases of the digestive system Personal history of other medical treatment hx crohns- hx bowel resection Fiberscan @11:30am Procedures PRO ILEOSCOPY THRU STOMA, BIOPSY ILEOSCOPY W/ BIOPSY Referral ID Status Reason Start Date Expiration Date Visits Re quested Visits Authorized [id number] 1 1 Encounter Details Date Type Department Care Team (Latest Contact Info) Description 12/09/2015 12:25 PM EDT - 12/09/2015 2:23 PM EDT Hospital En[place] [address] Isael Christianson MD [facility] [place] [address] Discharge Disposition: Home Social History Tobacco Use [...] Sign Reading Time Taken Comments Blood Pressure 143/64 12/09/2015 1:48 PM EDT Pulse 77 12/09/2015 1:48 PM EDT Temperature - - Respiratory Rate 16 12/09/2015 1:48 PM EDT Oxygen Saturation 96% 12/09/2015 1:48 PM EDT Inhaled Oxygen Concentration - - Weight - - Height - - Body Mass Index - - documented in this encounter Discharge Instructions * Discharge Instructions* Thalia Flores RN - 12/09/2015 1:52 PM EDT Colonoscopy What to expect after the procedure You may feel a little more gassy or bloated than usual. This is normal. You should expect the return of normal bowel function in the 2 to 3 days. Activity Because of the sedation that you received your judgement and reaction time are effected ?? Go home and rest quietly for the remainder of the day. You may resume your normal activities tomorrow. ?? Change from one position to the next slowly. You may lose your balance unexpectedly ?? Be careful on stairs, as you may be unsteady on your feet FOR THE NEXT 24 HRS ?? DO NOT DRIVE OR OPERATE ANY MACHINERY ?? DO NOT DRINK ALCOHOLIC BEVERAGES ?? DO NOT SIGN LEGAL DOCUMENTS ?? If you are a smoker: DO NOT SMOKE WHILE YOU ARE ALONE Diet ?? Start by eating small portions of foods that ordinarily will not upset your stomach . Avoid gas producing foods for the next few days ?? Be gentle with what you choose to start with ?? Drink plenty of fluids ( unless your doctor has told you not to). IV SITE-- slight redness, or tenderness is normal. You can use warm compresses if you become concerned. If the tenderness +/or redness increases or foul drainage and a red streak occurs, please contact your PCP immediately When shoud you call for help? Call 911 anytime you think you may need emergency care. For example If you pass out ( loss of consciousness) If you pass maroon or bloody stools If you have severe belly pain Call your doctor now or seek immediate medical care If your stools are black and tarlike If your stools have streaks of blood, but you did not have a biopsy or any polyps removed If you have belly pain, or your belly is swollen and firm If you vomit If you have a fever If you are very dizzy Watch closely for changes in your health, and be sure to contact your doctor if you have any problems Your doctor will let you know when you will need your next colonoscopy. The results of your test and your risk for colorectal cancer will help your doctor decide how often you need to be checked. Sunday-Sunday Same Day Endo [phone]-[phone] Otherwise contact [phone] and ask to speak to the paint spray tender talent acquisition specialist Follow up care is a barry part of your treatment and safety. Be sure to make and go to all appointments, and call your doctor if you are having problems. Discharge instructions reviewed with patient who expresses understanding documented in this encounter Medications at Time of Discharge Medication Sig Dispensed Refills Start Date End Date levothyroxine (SYNTHROID) 125 mcg Tablet Take 125 mcg by mouth daily. 2 days a week Vvhciaothnuyh-Xk-Xlgv-M inerals (ONE-A-DAY WOMENS FORMULA) 27-0.4 mg Tab 08/19/2009 folic acid (FOLVITE) 1 mg Tablet Take 1 mg by mouth daily. 02/15/2023 losartan (COZAAR) 100 mg Tablet Take 100 mg by mouth daily. 11/01/2023 predniSONE (DELTASONE) 10 mg Tablet Take 2 mg by mouth daily. 10/12/2022 hydroxychloroquine (PLAQUENIL) 200 mg Tablet Take 400 mg by mouth daily. 06/28/2016 methotrexate 2.5 mg Tablet Take 20 mg by mouth once a week. 5 tablets 04/08/2021 acetaminophen (TYLENOL) 325 mg Tablet Take 650 mg by mouth every 4 hours as needed for Pain. 02/15/2023 levothyroxine (SYNTHROID) 150 mcg tablet Take 1 tablet by mouth daily. 90 tablet 3 02/01/2012 06/08/2022 aspirin ([employer] ASPIRIN) 81 mg chewable tablet 08/19/2009 3 documented as of this encounter H&P Notes * Megan Painter MD - 12/09/2015 1:16 PM EDT Gastroenterology & Hepatology Pre-Procedure History and Physical Procedure: ileoscopy with biopsy Indication: Crohn's colitis and colon cancer s/p total colectomy with ileostomy Patient Active Problem List Diagnosis Code ??? S/P thyroidectomy E89.0 ??? Thyroid cancer C73 ??? Hypothyroidism E03.9 ??? 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 Endometrial cancer C54.1 ??? NAFLD (nonalcoholic fatty liver disease) K76.0 Medications: Reviewed in EDH Allergies Allergen Reactions ??? Other [Unclassified Drug] Other (See Comments) Pain Patch(drug unknown) Fentanyl- confused hallucinations Social History/Family History: Reviewed in EDH. No changes Exam: Filed Vitals: 12/09/15 1300 BP: 137/90 GEN: NAD, AAOX3 HEENT: NC/AT dryMM, anicteric Chest: CTAB Heart: RRR, nl s1, s2 Abdomen: normal bowel sounds, soft, non tender Assessment and Plan: Proceed with ileoscopy ASA Grade: ASA 3 - Patient with moderate systemic disease with functional limitations Sedation plan: Moderate Conscious sedation Risks and benefits of the procedure were discussed with the patient. Consent has been signed. Megan Painter MD Gastroenterology Fellow documented in this encounter Plan of Treatment Upcoming Encounters Date Type Department Care Team (Late st Contact Info) Description 05/15/2024 1:00 PM EDT TH Visit (TeleHealth) [place] [address] Pasha Wood MD [facility] [place] [address] documented as of this encounter Procedures Procedure Name Priority Date/Time Associated Diagnosis Comments ILEOSCOPY W/ BIOPSY (WRVU 1.17) 12/09/2015 1:33 PM EDT hx crohns- hx bowel resection Fiberscan @11:30am ILEOSCOPY Routine 12/09/2015 1:30 PM EDT documented in this encounter Results * ILEOSCOPY (12/09/2015 1:30 PM EDT) ILEOSCOPY [facility] Endoscopy Patient Name: Page Katz ? Procedure Date: 12/09/2015 1:30 PM ? Date of : 1950 ? Age: 65 ? Order #: [id number] ? Procedure: ? Ileoscopy Indications: ? History of total colectomy, H/o ? Crohn's colitis, r/o small bowel ? Crohn's Providers: ? Isael Christianson MD, Megan ? MD Inocencio, Tess Longoria RN Referring : ?Bell Navarrete MD Medicines: ? Midazolam 3 mg IV, Fentanyl 150 ? micrograms IV Complications: ? No immediate complications. Procedure: ? After I obtained informed consent, ? the scope was passed under direct ? vision. Throughout the procedure, the ? patient's blood pressure, pulse, and ? oxygen saturations were monitored ? continuously. The Endoscope was ? introduced through the ileostomy and ? advanced to the distal ileum. The ? ileoscopy was performed without ? difficulty. The patient tolerated the ? procedure well. The quality of the ? bowel preparation was excellent. ? Findings: ? The distal ileum appeared normal to 20 cm ? Impression: ?- The examined portion of the ileum ? was normal. ? - No specimens collected. Recommendation: ?No further w/u ? ___ Isael Christianson MD 12/09/2015 1:53 PM This report has been signed electronically. Number of Addenda: 0 Note Initiated On: 12/09/2015 1:30 PM PROVATION 12/09/2015 1:30 PM EDT Bell Navarrete MD GENERAL SURGICAL ORD [facility] PROVATION documented in this encounter Visit Diagnoses Not on filedocumented in this encounter Active and Recently Administered Medications Times are shown in EDT. PRN Medication Order 12/07/2015 12/08/2015 12/09/2015 fentaNYL 50 mcg/mL multi-dose injection (CANCELED) ONCE PRN, Starting on Margarita 12/09/15 at 1330, Until Margarita 12/09/15 at 1418, Intra-Operative (Intra-Procedure), Routine 1330 (Given - Provid er: Tess Longoria RN)1333 (Given - Provider: Tess Longoria RN)1336 (Given - Provider: Tess Longoria, RN) midazolam (PF) (VERSED) 1 mg/mL multi-dose injection (CANCELED) ONCE PRN, Starting on Margarita 12/09/15 at 1330, Until Margarita 12/09/15 at 1418, Intra-Operative (Intra-Procedure), Routine 1330 (Given - Provid er: Tess Longoria RN)1336 (Given - Provider: Tess Longoria RN) documented in this encounter Care Teams Sap Bpc Architect Relationship Specialty Start Date End Date Bell Navarrete MD [address] [place] [address] PCP - General 06/21/10 06/27/16 documented as of this encounter
--- OUTSIDE RECORDS SUMMARY | 2024-03-27 20:54 | XMS_ITS | Encounter Summary ---
[place] [address] Care Team Providers Care Building Construction Inspector Name Role Phone Nathalie Bain MD Primary Care Provider Encounter Details Date Type Department Care Team (Late st Contact Info) Description 04/11/2021 [place] [phone] Deborah Galarza LPN Social History Tobacco Use Types Packs/Day Years [...] Telephone Encounter - Deborah Galarza LPN - 04/11/2021 11:38 AM EDT Pharmacy called regarding rx for MTX. The directions are confusing. It is written as: Take 8 tablets (20 mg) by mouth once a week for 90 days. 5 tablets - Oral Are these the right directions? Pharmacy: [phone] Thank you, RALPH Cabrera documented in this encounter Plan of Treatment Upcoming Encounters Date Type Department Care Team (Late st Contact Info) Description 05/15/2024 1:00 PM EDT TH Visit (TeleHealth) [place] [address] Pasha Wood MD [facility] [address] documented as of this encounter Visit Diagnoses Not on filedocumented in this encounter Care Teams Building Construction Inspector Relationship Specialty Start Date End Date Nathalie Bain MD [address] [place] [address] PCP - General Family Medicine 06/28/16 12/20/21 documented as of this encounter
--- OUTSIDE RECORDS SUMMARY | 2024-03-27 20:54 | XMS_ITS | Encounter Summary ---
[place] [address] Care Team Providers Care Production Intern Name Role Phone Nathalie Bain MD Primary Care Provider Reason for Visit * Reason Onset Date Comments Labs Only 09/09/2020 Encounter Details Date Type Department Care Team (Late st Contact Info) Description 09/09/2020 [place] [address] Boom Grant RN Labs Only Social History Tobacco Use Types Packs/Day Years [...] encounter Miscellaneous Notes * Telephone Encounter - Boom Grant RN - 09/09/2020 4:29 PM EST faxed * Telephone Encounter - Boom Grant RN - 09/09/2020 4:25 PM EST ----- Message from Pasha Wood MD sent at 09/09/2020 4:09 PM EST ----- Regarding: Standing laboratory orders for methotrexate monitoring at [facility]. Please fax request. documented in this encounter Plan of Treatment Upcoming Encounters Date Type Department Care Team (Late st Contact Info) Description 05/15/2024 1:00 PM EDT TH Visit (TeleHealth) [place] [address] Pasha Wood MD [facility] [place] [address] documented as of this encounter Visit Diagnoses Not on filedocumented in this encounter Care Teams Production Intern Relationship Specialty Start Date End Date Nathalie Bain MD [address] [place] [address] PCP - General Family Medicine 06/28/16 12/20/21 documented as of this encounter
--- OUTSIDE RECORDS SUMMARY | 2024-03-27 20:54 | XMS_ITS | Encounter Summary ---
Author Organization [facility] [place] [address] Care Team Providers Care Electromechanical Engineer Name Role Phone Bell Pereira MD Primary Care Provider [phone] Encounter Details Date Type Department Care Team (Latest Contact Info) Description 05/26/2014 5:49 AM EDT - 05/29/2014 11:08 AM EDT Hospital Encounter [address] [place] [id number] Gt Montana MD [facility] [place] [address] Endometrial hyperplasia Discharge Disposition: Home Social History Tobacco Use [...] Sign Reading Time Taken Comments Blood Pressure 106/47 05/26/2014 2:30 PM EDT Pulse 60 05/26/2014 2:30 PM EDT Temperature 36.3 ??C (97.3 ??F) 05/26/2014 12:15 PM E DT Respiratory Rate 12 05/26/2014 1:45 PM EDT Oxygen Saturation 100% 05/26/2014 2:30 PM EDT Inhaled Oxygen Concentration - - Weight 108.4 kg (239 lb) 05/26/2014 6:06 AM EDT Height 158.8 cm (5' 2.5) 05/26/2014 6:06 AM EDT Body Mass Index 43.02 05/26/2014 5:36 PM EDT documented in this encounter Discharge Instructions * Patient Instructions* Bibi Worley PA - 05/27/2014 3:59 PM EDT PATIENT DISCHARGE INSTRUCTIONS Gynecology Oncology phone number: [phone] -Follow-up- staple removal 06/08/14, 11:30AM -Follow-up with Dr. Montana 06/17/14, 2:30PM Call your doctor if you develop: --A fever over 101 degrees --Severe pain --Heavy vaginal bleeding --Increasing pain, redness, or discharge at your incision --It is normal to have light spotting from the vagina for up to 3 weeks following hysterectomy Activity level: No heavy lifting, pushing or pulling for 6 weeks. No sexual intercourse, no tampons, nothing in the vagina for 8 weeks. Diet: You may resume your regular diet. Be sure you drink plenty of fluids. Please use gregorio-colace 1-2 tablets twice daily for the entire time that you are taking pain medication to keep your bowel movements soft and regular. If you are constipated or have not had a bowel movement in 3 days, pleaseuse milk of magnesia (or miralax) as directed over the counter. Driving: Do not drive until you are off of all narcotic medications and you are not feeling pain; usually about 2 weeks. Shower/Bath: Showering is fine. Short baths are OK but you should avoid having any abdominal incision submerged for more than 10-15 minutes for the next 2 weeks. Wound Care: You will have your samra removed 10-14 days after surgery by a healthcare provider, who will place small pieces of paper tape over your incision. This tape can get wet in the shower, just ensure that you dry them well. These pieces of tape should fall off within 7 days; if they have not, please remove them after one week. Pain medications include oxycodone and Motrin (ibuprofen) Please use ibuprofen 600 mg every 6 hours with food around the clock for the next several days and then after that use it only as needed. Please use the oxycodone every 3-4 hours as needed for pain that breaks through the ibuprofen. You may use Tylenol over the counter as prescribed. Do not exceed 3000mg of Tylenol (acetaminophen)from any source in a 24 hour period. * Attachments The following attachments cannot be sent through Care Everywhere. * HYSTERECTOMY: ABDOMINAL : POSTOP ([place]) documented in this encounter Medications at Time of Discharge Medication Sig Dispensed Refills Start Date End Date levothyroxine (SYNTHROID) 125 mcg Tablet Take 125 mcg by mouth daily. 2 days a week Uoyzfamlzdbwo-Gl-Ojfu-M inerals (ONE-A-DAY WOMENS FORMULA) 27-0.4 mg Tab 08/19/2009 ibuprofen (ADVIL;MOTRIN) 600 mg Tablet Take 1 tablet by mouth every 6 hours as needed for Pain. 60 tablet 1 05/29/2014 10/27/2015 oxyCODONE (ROXICODONE) 5 mg Tablet Take 1-2 tablets by mouth every 4 hours as needed for Pain. 60 tablet 0 05/29/2014 06/17/2014 senna-docusate (PERICOLACE) 8.6-50 mg Tablet Take 1-4 tablets by mouth 2 times daily. 60 tablet 1 05/29/2014 10/27/2015 losartan-hydrochlorothi azide (HYZAAR) 100-25 mg Tablet Take 1 tablet by mouth daily. 10/27/2015 DULoxetine (CYMBALTA) 60 mg Capsule, Delayed Release(E.C.) Take 60 mg by mouth daily. 10/27/2015 Calcium Carbonate-Vitamin D3 600 mg(1,500mg) -400 unit Tablet Take 1 tablet by mouth daily. 10/27/2015 potassium chloride (K-DUR/KLOR-CON) 10 mEq extended release tablet Take 10 mEq by mouth 2 times daily. 10/27/2015 levothyroxine (SYNTHROID) 150 mcg tablet Take 1 tablet by mouth daily. 90 tablet 3 02/01/2012 06/08/2022 PREDNISOLONE ORAL Take 4 mg by mouth daily. 10/27/2015 aspirin ([employer] ASPIRIN) 81 mg chewable tablet 08/19/2009 3 documented as of this encounter Progress Notes * Dotty Richardson - 05/29/2014 6:31 AM EDT Financial Developer/Onc Progress Note: Patient ID: Ms. Paul Adames is a 63 y.o. year old woman with hypertension, obesity (BMI 43), crohn's disease, colon cancer, thyroid cancer/hypothyroidism, and polymyalgia rheumatica who is postoperative day #4 s/p abdominal supracervical hysterectomy/BSO via vertical midline laparotomy for atypical complex hyperplasia, possible focus of FIGO grade 1 endometrial cancer on frozen section. [id number]. Interval Events - Anxiety overnight, received Ativan 1 mg S: Patient reports pain well controlled with oxycodone, tylenol and ibuprofen. She is tolerating a regular diet, without nausea or vomiting. Ambulating and voiding without difficulty. She denies chest pain, SOB, leg pain, fever or chills. O: Last value Range last 24 hrs Temperature Temp: 37 ??C (98.6 ??F) Temp: [36.6 ??C (97.9 ??F)-37.1 ??C (98.8 ??F)] Heart Rate Heart Rate: 81 Heart Rate: [78-92] Blood Pressure BP: 142/70 mmHg BP: (138-152)/(70-85) Respiratory Rate Resp: 18 Resp: [18] SpO2 SpO2: 97 % SpO2: [93 %-97 %] Intake/Output Summary (Last 24 hours) at 05/29/14 0631 Last data filed at 05/29/14 0344 Gross per 24 hour Intake 2435 ml Output 1350 ml Net 1085 ml Gen: appears well, in no acute distress. Cardiac: RRR, S1, S2, no rub/gallop/murmur. Pulmonary: CTAB, no rales, wheeze/rhonchi. Abdomen: Soft, symmetric, mildly tender at incision, nondistended, obese, BS normoactive, no rebound/guarding, ileostomy appliance in R mid abdomen empty (bag just changed), midline incision well approximated with samra without erythema/drainage/induration : minimal dried blood on pad Extremities: nontender, SCDs in place Labs: Recent Labs Basename 05/29/14 0338 05/28/14 0325 05/27/14 0345 WBC 13.4* 13.7* 18.0* HGB 9.7* 9.2* 10.1* HCT 30.5* 28.7* 30.4* PLATELET 358 324 334 Recent Labs Basename 05/29/14 0338 05/28/14 0325 05/27/14 0345 NA 144 143 136 K 3.6 3.9 4.1 CL 104 105 99 CO2 30 29 25 BUN 8 11 11 CREATININE 0.58* 0.54* 0.66* MAGNESIUM 0.78 0.75 0.64* PHOS -- -- -- Assessment/Plan: 63 y.o. year old woman with hypertension, obesity (BMI 43), crohn's disease, coloncancer, thyroid cancer/hypothyroidism, and polymyalgia rheumatica who is postoperative day #4 s/p abdominal supracervical hysterectomy/BSO via vertical midline laparotomy for atypical complex hyperpla johnathan, possible focus of FIGO grade 1 endometrial cancer on frozen section. EBL 1000cc. Please see systems based assessment/plan below for full detail: Neuro: Pain well controlled with oxycodone, tylenol, and ibuprofen. Alert/oriented. No issues. Cardiovascular/Heme: Hemodynamically stable, no evidence of intraabdominal bleeding on exam. HGB 13.4 pre-op (05/13) down to 10.1 yesterday, now stable at 9.7 this am (9.2 yesterday). Consistent with1 L EBL. -- start iron at time of discharge Pulmonary: Adequate spO2 on room air. No issues GI: Tolerating regular diet without nausea/vomiting. - scheduled pericolace : Voiding without difficulty. FEK: Tolerating regular diet, no IVF - Magnesium and potassium low, replete orally Endocrine: - continue home dose synthroid 125mcg/day Oncology: Atypical complex hyperplasia vs. FIGO grade 1 endometrial CA. F/u final pathology report Prophylaxis: - SCDs while in bed, nexium, lovenox, incentive spirometry Dispo: Discharge home today Code Status: Full code DOTTY RICHARDSON MD PGY-2 Financial Developer/Onc service pager [phone] Jazzmine March RN - 05/29/2014 4:34 AM EDT Problem: Skin Integrity Impairment, Risk/Actual (Adult, Obstetrics) Goal: Identify Signs and Symptoms and Related Risk Factors Signs and symptoms and related risk factors are identified upon initiation of Human Response Clinical Practice Guideline (CPG) Outcome: Absent and monitoring Pt remains with vertical abdominal midline incision open to air with samra intact with no s/s of infection; lower part of incision is pink with scant serosanguinous drainage present. No new signs/symptoms of bleeding present. Will continue to monitor. Problem: Pain, Acute (Adult, Obstetrics) Goal: Identify Signs and Symptoms and Related Risk Factors Signs and symptoms and related risk factors are identified upon initiation of Human Response Clinical Practice Guideline (CPG) Outcome: Present (see interventions, notes) Pt remains with scheduled q6hr acetaminophen and ibuprofen administered. Oxycodone PO PRN was administered for breakthrough pain with positive efficacy reported. Will continue to monitor. Problem: Fall/Trauma/Injury Risk (Adult, Obstetrics) Goal: Identify Signs and Symptoms and Related Risk Factors Signs and symptoms and related risk factors are identified upon initiation of Human Response Clinical Practice Guideline (CPG) Outcome: Absent and monitoring Reviewed personal safety recommendations, as pt is SBA to independent in and out of room with frontwheel walker for support. Pt walked around unit twice this shift. Patient agreed to terms. Call carmichael in reach. Patient rings appropriately. Bed in low position. Both side rails up. * Gt Montana MD - 05/28/2014 6:53 AM EDT Financial Developer/Onc Progress Note: Patient ID: Ms. Paul Adames is a 63 y.o. year old woman with hypertension, obesity (BMI 43), crohn's disease, colon cancer, thyroid cancer/hypothyroidism, and polymyalgia rheumatica who is postoperative day #0 s/p abdominal supracervical hysterectomy/BSO via vertical midline laparotomy for atypical complex hyperplasia, possible focus of FIGO grade 1 endometrial cancer on frozen section. [id number]. Interval Events - Anxiety overnight, received Ativan 1 mg - Epidural accidentally pulled out, and due to increased pain overnight, dilaudid CRTTS temporarily restarted S: Patient reports pain well controlled on CRTTS and has used minimally, along with tylenol and ibuprofen. She reports oxycodone had been working but not strong enough after epidural came out. She is tolerating a regular diet, without nausea or vomiting. Ambulating and voiding without difficulty. Shedenies chest pain, SOB, leg pain, fever or chills. O: Last value Range last 24 hrs Temperature Temp: 37 ??C (98.6 ??F) Temp: [36.8 ??C (98.2 ??F)-37.3 ??C (99.1 ??F)] Heart Rate Heart Rate: 92 Heart Rate: [82-92] Blood Pressure BP: 118/64 mmHg BP: (118-138)/(58-74) Respiratory Rate Resp: 18 Resp: [18-20] SpO2 SpO2: 99 % SpO2: [97 %-99 %] Intake/Output Summary (Last 24 hours) at 05/28/14 0660 Last data filed at 05/28/14 0400 Gross per 24 hour Intake 820 ml Output 2180 ml Net -1360 ml Gen: appears well, in no acute distress. Cardiac: RRR, S1, S2, no rub/gallop/murmur. Pulmonary: CTAB, no rales, wheeze/rhonchi. Abdomen: Soft, symmetric, mildly tender at incision, nondistended, obese, BS normoactive, no rebound/guarding, ileostomy appliance in R mid abdomen, dressing removed, well approximated with samra, no erythema/drainage/induration : minimal dried blood on pad Extremities: nontender, SCDs in place Labs: Recent Labs Basename 05/28/1432405/27/14 034 WBC 13.7* 18.0* HGB 9.2* 10.1* HCT 28.7* 30.4* PLATELET 324 334 Recent Labs Basename 05/28/1432405/27/14 034 NA 143 136 K 3.9 4.1 CL 105 99 CO2 29 25 BUN 11 11 CREATININE 0.54* 0.66* MAGNESIUM 0.75 0.64* PHOS -- -- Assessment/Plan: 63 y.o. year old woman with hypertension, obesity (BMI 43), crohn's disease, coloncancer, thyroid cancer/hypothyroidism, and polymyalgia rheumatica who is postoperative day #1 s/p abdominal supracervical hysterectomy/BSO via vertical midline laparotomy for atypical complex hyperpla johnathan, possible focus of FIGO grade 1 endometrial cancer on frozen section. EBL 1000cc. Please see systems based assessment/plan below for full detail: Neuro: Pain well controlled with dilaudid CRTTS, tylenol, and ibuprofen. Epidural out last evening. Alert/oriented. No issues. -- Increased oxycodone dose to 5-15 mg, discontinue CRTTS now Cardiovascular/Heme: Hemodynamically stable, no evidence of intraabdominal bleeding on exam. HGB 13.4 pre-op (05/13) down to 10.1 yesterday, 9.2 this am. Consistent with 1 L EBL. -- start iron at time of discharge Pulmonary: Adequate spO2 on room air. No issues GI: Tolerating regular diet without nausea/vomiting. - pericolace : Voiding without difficulty. FEK: Tolerating regular diet, no IVF - Magnesium low, replete orally Endocrine: - continue home dose synthroid 125mcg/day Oncology: Atypical complex hyperplasia vs. FIGO grade 1 endometrial CA. F/u final pathology report Prophylaxis: - SCDs while in bed, nexium, lovenox, incentive spirometry Dispo: Continue inpatient hospitalization Code Status: Full code DOTTY RICHARDSON MD PGY-2 Financial Developer/Onc service pager [phone] I have seen and examined the patient and reviewed and edited the resident's above history and I agree with the details as written. The assessment and plan were formulated in discussion with me and I agree with them as documented. Gt Montana MD * Tori Hamilton Daphne - 05/27/2014 7:10 PM EDT Acute Pain Service Overnight Coverage Time of Service: 19:00 VITAL SIGNS: BP 122/64 Pulse 89 Temp 37.3 ??C (99.1 ??F) (Oral) Resp 18 Ht 158.8 cm (5' 2.5) Wt 108.41 kg (239 lb) BMI 42.99 kg/m2 SpO2 98% Epidural day: 2 days s/p placement POD: 1 days s/p Operative Procedures: Procedure(s) with comments: @HYSTERECTOMY, TOTAL ABD., W W/O BSO Pertinent Medications: Continuous Infusions Bupivacaine 1/8 % (1.25 mg/ml) infusing at 5 mls/hour Dilaudid CRTTS 0.1-5-4 mg (2.8 mg used since surgery - discontinued this afternoon) Tylenol 650 mg po q 4 hours Motrin 600 mg po q 6 hours Lovenox 40 mg SQ daily Assessment: Was called to the bedside by nursing staff to evaluate patient's epidural, which appeared to be completely pulled out. Patient recalls rubbing her back against the bed as she moved. Pain increasing over the past few hours. Epidural insertion site clean, without signs of infection. Plan: Removed tape, and epidural tubing from patient. Discussed restarting CRTTS for overnight coverage. Plan discussed with patient/RN/team. Please call with any questions or concerns. TORI HAMILTON MD 05/27/2014 Pager # [phone] * Aixa Connelly MD - 05/27/2014 11:52 AM EDT Acute Pain Service - Epidural Daily Management Physician: Aixa Connelly M.D. Time of Service: 11:52 AM VITAL SIGNS: BP 138/70 Pulse 82 Temp 37.1 ??C (98.8 ??F) (Oral) Resp 20 Ht 158.8 cm (5' 2.5) Wt 108.41 kg (239 lb) BMI 42.99 kg/m2 SpO2 97% Epidural day: 2 days s/p placement POD: 1 days s/p Operative Procedures: Procedure(s) with comments: @HYSTERECTOMY, TOTAL ABD., W W/O BSO Pertinent Medications: Continuous Infusions Bupivacaine 1/8 % (1.25 mg/ml) infusing at 5 mls/hour Dilaudid CRTTS 0.1-5-4 mg (2.8 mg used since surgery) Tylenol 650 mg po q 4 hours (due at noon, received dose of IV Tylenol this a.m.) Motrin 600 mg po q 6 hours (due at noon, received Toradol 15 mg IV at 06:29) Lovenox 40 mg SQ daily Assessment: Numerical Rating Scale (NRS) 1 /10, can increase to 8/10 on right side with coughing. Pain now is well controlled ROS: GI/Bowels Tolerating regular diet. States flatus in ostomy bag Nausea No Pruritis No Drowsiness No Patient is awake and alert. Deep breathing and coughing well. Demonstrates incentive spirometer to 1750 ml, Moves legs without difficulty. Epidural insertion site clean and without signs of infection. Diminished sensation to cold T7-L3 bilaterally, however left side more decreased than right. Plan: Continue current regimen. Plan discussed with patient/RN/team. Please call with any questions or concerns. In the presence of Dr. Connelly, I am taking down these notes. PHIL FARIA RN 05/27/2014 Pager # [phone] I performed the above scribed service and agree with the accuracy of the note. AIXA CONNELLY MD * Gt Montana MD - 05/27/2014 6:58 AM EDT Financial Developer/Onc Progress Note: Patient ID: Ms. Paul Adames is a 63 y.o. year old woman with hypertension, obesity (BMI 43), crohn's disease, colon cancer, thyroid cancer/hypothyroidism, and polymyalgia rheumatica who is postoperative day #0 s/p abdominal supracervical hysterectomy/BSO via vertical midline laparotomy for atypical complex hyperplasia, possible focus of FIGO grade 1 endometrial cancer on frozen section. [id number]. Interval Events - Anxiety overnight, received Ativan S: Patient is doing well and without complaint. Pain controlled with dilaudid CRTTS, IV tylenol, toradol and epidural. She has tolerated fluids and soft foods, without nausea or vomiting. She has not attempted to move out of bed. Major catheter in place. She denies chest pain, SOB, leg pain, fever orchills. O: Last value Range last 24 hrs Temperature Temp: 36.6 ??C (97.9 ??F) Temp: [36.3 ??C (97.3 ??F)-36.8 ??C (98.2 ??F)] Heart Rate Heart Rate: 79 Heart Rate: [57-83] Blood Pressure BP: 118/54 mmHg BP: (99-140)/(43-78) Respiratory Rate Resp: 16 Resp: [12-20] SpO2 SpO2: 99 % SpO2: [95 %-100 %] Intake/Output Summary (Last 24 hours) at 05/27/14 0658 Last data filed at 05/27/14 0630 Gross per 24 hour Intake 8255.95 ml Output 2740 ml Net 5515.95 ml UOP: 100-200 cc/hr Gen: appears well, in no acute distress. Cardiac: RRR, S1, S2, no rub/gallop/murmur. Pulmonary: CTAB, no rales, wheeze/rhonchi. Abdomen: Soft, symmetric, mildly tender at incision, nondistended, obese, BS hypoactive, no rebound/guarding, ileostomy appliance in R mid abdomen with no drainage (just emptied) Dressing: clean/dry/intact : no blood on pad, major in situ Extremities: nontender, SCDs in place Labs: Recent Labs Basename 05/27/14 0345 WBC 18.0* HGB 10.1* HCT 30.4* PLATELET 334 Recent Labs Basename 05/27/14 0345 NA 136 K 4.1 CL 99 CO2 25 BUN 11 CREATININE 0.66* MAGNESIUM 0.64* PHOS -- Assessment/Plan: 63 y.o. year old woman with hypertension, obesity (BMI 43), crohn's disease, coloncancer, thyroid cancer/hypothyroidism, and polymyalgia rheumatica who is postoperative day #1 s/p abdominal supracervical hysterectomy/BSO via vertical midline laparotomy for atypical complex hyperpla johnathan, possible focus of FIGO grade 1 endometrial cancer on frozen section. EBL 1000cc. Please see systems based assessment/plan below for full detail: Neuro: Pain well controlled with epidural, toradol, dilaudid CRTTS, IV tylenol, and epidural. Alert/oriented. No issues. - Discontinue CRTTS when tolerating diet today, start oxycodone Cardiovascular/Heme: Hemodynamically stable, no evidence of intraabdominal bleeding on exam. HGB 13.4 pre-op (05/13) down to 10.1 this am. Pulmonary: Adequate spO2 on room air. No issues GI: Tolerating clear liquids and soft food without nausea/vomiting. - Advance diet as tolerated. : Major in situ. Adequate urine output ~100 cc/hr. - Discontinue major when ambulatory FEK: IVF LR @100cc/hr - Discontinue IVF - Magnesium low, replete orally Endocrine: - continue home dose synthroid 125mcg/day Oncology: Atypical complex hyperplasia vs. FIGO grade 1 endometrial CA. F/u final pathology report Prophylaxis: - SCDs while in bed, nexium, lovenox, incentive spirometry Dispo: Continue inpatient hospitalization Code Status: Full code DOTTY RICHARDSON MD PGY-2 Financial Developer/Onc service pager [phone] I have seen and examined the patient and reviewed and edited the resident's above history and I agree with the details as written. The assessment and plan were formulated in discussion with me and I agree with them as documented. Gt Montana MD * Celeste Cooper RN - 05/26/2014 5:28 PM EDT Patient arrived to [facility], room 114 @ 1700. Report received from JOSEPH Malik in PACU. Oriented to room, call carmichael, and bed controls. Patient demonstrates understanding. Vital signs stable. Patient reports good pain control with epidural and CRTTS. Will continue to monitor. * Gt Montana MD - 05/26/2014 2:30 PM EDT Financial Developer/Onc Postop Check Note: Patient ID: Ms. Paul Adames is a 63 y.o. year old woman with hypertension, obesity (BMI 43), crohn's disease, colon cancer, thyroid cancer/hypothyroidism, and polymyalgia rheumatica who is postoperative day #0 s/p abdominal supracervical hysterectomy/BSO via vertical midline laparotomy for atypical complex hyperplasia, possible focus of FIGO grade 1 endometrial cancer on frozen section. [id number]. Interval Events - Intra-op findings: right hydrosalpinx, right and left adnexa adherent to the small bowel in the pelvis, absent rectum and colon, small uterus with a left broad ligament fibroid. Frozen section: mainly complex hyperplasia with possible foci of noninvasive endometrial adenocarcinoma S: Patient is doing well and without complaint. Pain controlled with dilaudid CRTTS, IV tylenol and toradol. She has tolerated water and ice, without nausea or vomiting. She has not attempted to move out of bed and is not passing flatus. Major catheter in place. She denies chest pain, SOB, leg pain, fever or chills. O: Last value Range last 24 hrs Temperature Temp: 36.3 ??C (97.3 ??F) Temp: [36.3 ??C (97.3 ??F)-36.4 ??C (97.5 ??F)] Heart Rate Heart Rate: 63 Heart Rate: [57-94] Blood Pressure BP: 101/55 mmHg BP: (99-146)/(43-80) Respiratory Rate Resp: 12 Resp: [12-20] SpO2 SpO2: 95 % SpO2: [95 %-100 %] Intake/Output Summary (Last 24 hours) at 05/26/14 1430 Last data filed at 05/26/14 1430 Gross per 24 hour Intake 4809 ml Output 1230 ml Net 3579 ml Gen: appears well, in no acute distress. Cardiac: RRR, S1, S2, no rub/gallop/murmur. Pulmonary: CTAB, no rales, wheeze/rhonchi. Abdomen: Soft, symmetric, mildly tender at incision, nondistended, obese, BS hypoactive, no rebound/guarding, ileostomy appliance in R mid abdomen with drainage of dark brown liquid stool Dressing: clean/dry/intact : no blood on pad, major in situ Extremities: nontender, SCDs in place Labs: None available Assessment/Plan: 63 y.o. year old woman with hypertension, obesity (BMI 43), crohn's disease, coloncancer, thyroid cancer/hypothyroidism, and polymyalgia rheumatica who is postoperative day #0 s/p abdominal supracervical hysterectomy/BSO via vertical midline laparotomy for atypical complex hyperpla johnathan, possible focus of FIGO grade 1 endometrial cancer on frozen section. EBL 1000cc. Please see systems based assessment/plan below for full detail: Neuro: Pain well controlled on toradol, dilaudid CRTTS, IV tylenol, and epidural. Alert/oriented. No issues Cardiovascular/Heme: Hemodynamically stable, no evidence of intraabdominal bleeding on exam. Borderline low UOP suggestive of inadequate fluid resuscitation given high blood loss - bolus additional 500cc IVF now - Check CBC in AM. Pulmonary: Adequate spO2 on room air. No issues GI: Tolerating clear liquids without nausea/vomiting. - Advance diet as tolerated. : Major in situ. Borderline low urine output ~30cc/hr immediately postop. FEK: IVF LR @100cc/hr - bolus 500cc LR now. - continue MIVF - Check lytes in AM. Endocrine: - continue home dose synthroid 125mcg/day Oncology: Atypical complex hyperplasia vs. FIGO grade 1 endometrial CA. F/u final pathology report Prophylaxis: - SCDs while in bed, nexium, lovenox, incentive spirometry Dispo: Continue inpatient hospitalization Code Status: Full code Kadeem Palomo MD PGY4 Financial Developer/Onc service pager [phone] * Flavio Soto, RN - 05/26/2014 1:13 PM EDT 1210 - Pt admitted to PACU 22 from OR. Pt admitted to monitors, alarms set per patient. Pt denies nausea. Rating pain 8/10 in right lower quadrant. Medicated per SEP. Abd dressing C/D/I. Colostomy in place with scant output. Epidural infusing @ 5cc/hr. 1240 - CRTTS teaching performed. Pt able to demonstrate use. 1315 - Pt rolled - epidural site WNL. Skin intact. 1243 - Pt rating pain 8/10 in RMQ/RLQ. Epidural increased to 7cc by Anesthesia MD. 1330 - BP trending down. Pt asymptomatic of same. 1333 - Epidural decreased to 5cc with increasing of SBP. 1405 - IS teaching performed with patient. Pt able to demonstrate use. Pt using IS to 1500. 1610 - Pt stable for floor. Nursing report given to Celeste watts RN. 1615 - Pt with 30cc urine/hr x past 2 hrs. Team made aware of same. 1630 - Pt transferred to [facility] in stable condition. 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 Montana on 05/13/14. (x) Condition unchanged since H&P originally performed. Interval Note: Patient seen in same day area. Consent in chart. Prednisone dose increased from 4mg/day to 10mg/day last week for Crohn's - will discuss stress- dose steroids for perioperative period. Otherwise no changes since preop visit. Preop labs reviewed (below). No new meds/allergies or hospital/ER visits. OK to proceed w/surgery Lab Results Component Value Date WBC 9.2 05/13/2014 RBC 4.40 05/13/2014 HGB 13.4 05/13/2014 HCT 40.4 05/13/2014 MCV 91.8 05/13/2014 MCH 30.5 05/13/2014 MCHC 33.2 05/13/2014 PLATELET 444* 05/13/2014 RDWCV 14.2 05/13/2014 Results for PAUL ADAMES ( ) as of 05/26/2014 06:05 Ref. Range 05/13/2014 17:18 Sodium Latest Range: 135-145 mmol/L 139 Potassium Latest Range: 3.5-5.0 mmol/L 3.9 Chloride Latest Range: 98-107 mmol/L 101 CO2 Latest Range: 22-31 mmol/L 26 Anion Gap Latest Range: 5-15 mmol/L 12 BUN Latest Range: 8-18 mg/dL 15 Creatinine Latest Range: 0.70-1.20 mg/dL 0.63 (L) Estimated GFR Latest Range: >=60 >60 ABORh Type No range found A Pos AB Screen Interp No range found Negative Specimen OD No range found [id number] A copy of this document will be sent to the patient's Primary Care Physician and/or Referring Physician. 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 Outcome: Outcome achieved Date Met: 05/29/14 Abdominal incision intact, well approximated with samra intact. Scant serosang Drainage noted at lower aspect, with slight redness. MD aware. Problem: General Plan of Care Goal: Plan of Care Review Outcome: Outcome achieved Date Met: 05/29/14 Reviewed AVS/discharge plan with Patient and spouse with good understanding per both individuals. Both stated understanding content of material. Problem: Pain, Acute (Adult, Obstetrics) Goal: Acceptable Pain Control/Comfort Level Patient will demonstrate the desired outcomes. Outcome: Outcome achieved Date Met: 05/29/14 Incisional pain well controled with scheduled tylenol and Ibuprofen per MAR, along with prn oxycodone for breakthrough pain. Refer to pain scale and MAR. * Discharge Summary - Dotty Richardson - 05/29/2014 8:09 AM EDT Discharge Summary Patient Name: Paul Adames Patient Age: 63 y.o. Language: Finnish Race: White Ethnicity: Not nor Admit date: 05/26/2014 Discharge date and time: 05/29/2014 Attending Physician: Gt Montana MD Discharge Physician: Gt Montana MD Follow-up Recommendations for Providers: -Staple removal 06/08 Inpatient Provider Contact Information: [facility] Gynecologic Oncology, Discharge Diagnoses (Hospital Problems) and Secondary Diagnoses (Chronic Problems): Active Hospital Problems Diagnosis ??? Endometrial cancer Resolved Hospital Problems Diagnosis Date Resolved No resolved problems to display. Active Non-Hospital Problems Diagnosis ??? Complex endometrial hyperplasia with atypia ??? S/P thyroidectomy ??? Thyroid cancer ??? Hypothyroidism Operations/Major Procedures: Abdominal supracervical hysterectomy, bilateral salpingo-oophorectomy 05/26/2014 History of Presentation: Paul Adames is a 63 y.o. female referred for evaluation of endometrial cancer. She reports postmenopausal bleeding since February of 2014. She describes as slight spotting off and on. TVUS on 03/23/2014 showed endometrial thickness of 8 mm. She underwent dilation and curettage on 03/31/2014, whichreturned as complex atypical endometrial hyperplasia. The recommendation by her provider was for lakisha gical intervention via open approach, but was referred for second opinion. She has a history of Crohns disease and colon cancer and she is s/p total colectomy and proctectomywith ileostomy formation in 2005. She reports she has been doing well with the ostomy and is without issues. She has been taking daily steroids (prednisone 4 mg) for polymyalgia rheumatica. Hospital Course: Paul Adames was admitted through Same Day Surgery and underwent the above procedures without complication. EBL was 1,000cc. Findings were notable for: Right hydrosalpinx, right and left adnexa adherent to the small bowel in the pelvis, absent rectum and colon, small uterus with a left broad ligament fibroid. Frozen section: mainly complex hyperplasia with possible foci of noninvasive endometrial adenocarcinoma. Postoperatively the patient was taken to PACU and on POD #0 was transferred to the floor. She had an epidural placed for post operative pain control. Post operative course was uncomplicated. She was able to tolerate a regular diet and ambulate without difficulty. Major catheter was removed on POD#1and pt was able to void without issue. Her pain was well-controlled on oral medications by the timeof discharge. She was discharged home on POD #4 in stable condition and in good spirits with follow-up in place with Dr. Montana on 06/17/2014 at 2:30PM (staple removal 06/08/2014 at 11:30AM). Vital signs at Discharge: BP: 164/94 mmHg, Heart Rate: 68 , Temp: 37 ??C (98.6 ??F), Resp: 18 , BMI (Calculated): 43.1 Height: 158.8 cm (5' 2.5) (05/26/14 1736) Weight - Scale: 108.41 kg (239 lb) (05/26/14 1736) Functional and Cognitive status: Fully functional and cognitively intact Important Studies and Lab Data: Labs: Last 3 wbc, hgb, hct plt Recent Labs Basename 05/29/14 0338 05/28/14 0325 05/27/14 0345 WBC 13.4* 13.7* 18.0* HGB 9.7* 9.2* 10.1* HCT 30.5* 28.7* 30.4* PLATELET 358 324 334 Last 3 Lytes Recent Labs Basename 05/29/14 0338 05/28/14 0325 05/27/14 0345 NA 144 143 136 K 3.6 3.9 4.1 CL 104 105 99 CO2 30 29 25 BUN 8 11 11 CREATININE 0.58* 0.54* 0.66* Studies: none Pending Studies and Lab Data: Final Pathology- Endometrial carcinoma, stage Ia Discharge Conditions/Prognosis: stable Discharge to: Home Updated Allergies/ADRs: Allergies Allergen Reactions ??? Other (Unclassified Drug) Other (See Comments) Pain Patch(drug unknown) - confused hallucinations Immunizations Given this Hospitalization: Immunization History Administered Date(s) Administered ??? Influenza Vaccine, Whole 07/30/2003, 07/30/2007 ??? Pneumococcal Polyvalent 23 07/30/2006 Discharge Medications: Your Medications As of 05/29/2014 9:12 AM Notice Some of the medications listed here do not show instructions, such as how often to take the medication. Ask your doctor or nurse how to use these medications. New Medications Dose Details ibuprofen 600 mg Tab Commonly known as: ADVIL;MOTRIN Take 1 tablet by mouth every 6 hours as needed for Pain. 600 mg Quantity: 60 tablet Refills: 1 oxyCODONE 5 mg Tab Commonly known as: ROXICODONE Take 1-2 tablets by mouth every 4 hours as needed for Pain. 5-10 mg Quantity: 60 tablet Refills: 0 senna-docusate 8.6-50 mg Tab Commonly known as: PERICOLACE Take 1-4 tablets by mouth 2 times daily. 1-4 tablet Quantity: 60 tablet Refills: 1 Continued medications, unchanged Dose Details SHELTON TAS ASPIRIN 81 mg Chew (Ask your doctor or nurse how to take this medication.) Generic drug: aspirin Refills: 0 Calcium Carbonate-Vitamin D3 600 mg(1,500mg) -400 unit Tab Take 1 tablet by mouth daily. 1 tablet Refills: 0 DULoxetine 60 mg Cpdr Commonly known as: CYMBALTA Take 60 mg by mouth daily. 60 mg Refills: 0 * levothyroxine 125 mcg Tab Commonly known as: SYNTHROID Take 125 mcg by mouth. 2 days a week 125 mcg Refills: 0 * levothyroxine 150 mcg Tab Commonly known as: SYNTHROID Take 1 tablet by mouth daily. 150 mcg Quantity: 90 tablet Refills: 3 losartan-hydrochlorothiazide 100-25 mg Tab Commonly known as: HYZAAR Take 1 tablet by mouth daily. 1 tablet Refills: 0 ONE-A-DAY WOMENS FORMULA 27-0.4 mg Tab (Ask your doctor or nurse how to take this medication.) Generic drug: Wgnbymvmypgfb-Na-Niqb-Minerals Refills: 0 potassium chloride 10 mEq Tbsr Commonly known as: K-DUR/KLOR-CON Take 10 mEq by mouth 2 times daily. 10 mEq Refills: 0 PREDNISOLONE ORAL Take 4 mg by mouth daily. 4 mg Refills: 0 * Notice: This list has 2 medication(s) that are the same as other medications prescribed for you. Read the directions carefully, and ask your doctor or other care provider to review them with you. STOPPED Medications meloxicam 7.5 mg Tab Commonly known as: MOBIC Smoking Status at Discharge: History Smoking status ??? Never Smoker Smokeless tobacco ??? Never Used Instructions Given to Patient at Discharge: Patient Instructions PATIENT DISCHARGE INSTRUCTIONS Gynecology Oncology phone number: [phone] -Follow-up- staple removal 06/08/14, 11:30AM -Follow-up with Dr. Montana 06/17/14, 2:30PM Call your doctor if you develop: --A fever over 101 degrees --Severe pain --Heavy vaginal bleeding --Increasing pain, redness, or discharge at your incision --It is normal to have light spotting from the vagina for up to 3 weeks following hysterectomy Activity level: No heavy lifting, pushing or pulling for 6 weeks. No sexual intercourse, no tampons, nothing in the vagina for 8 weeks. Diet: You may resume your regular diet. Be sure you drink plenty of fluids. Please use gregorio-colace 1-2 tablets twice daily for the entire time that you are taking pain medication to keep your bowel movements soft and regular. If you are constipated or have not had a bowel movement in 3 days, pleaseuse milk of magnesia (or miralax) as directed over the counter. Driving: Do not drive until you are off of all narcotic medications and you are not feeling pain; usually about 2 weeks. Shower/Bath: Showering is fine. Short baths are OK but you should avoid having any abdominal incision submerged for more than 10-15 minutes for the next 2 weeks. Wound Care: You will have your samra removed 10-14 days after surgery by a healthcare provider, who will place small pieces of paper tape over your incision. This tape can get wet in the shower, just ensure that you dry them well. These pieces of tape should fall off within 7 days; if they have not, please remove them after one week. Pain medications include oxycodone and Motrin (ibuprofen) Please use ibuprofen 600 mg every 6 hours with food around the clock for the next several days and then after that use it only as needed. Please use the oxycodone every 3-4 hours as needed for pain that breaks through the ibuprofen. You may use Tylenol over the counter as prescribed. Do not exceed 3000mg of Tylenol (acetaminophen)from any source in a 24 hour period. General Instructions None Future Appointments and Orders Future Appointments: Provider: Department: Dept Phone: Center: 06/08/2014 11:30 AM Onc Nurse Financial Developer Gynecologic Oncology [phone] None 06/17/2014 2:30 PM Gt Montana MD Gynecologic Oncology [phone] None Discharge References/Attachments HYSTERECTOMY: ABDOMINAL : POSTOP ([facility] [place]) Provider Contact Information: BELL PEREIRA MD [phone] * Plan of Care - Isael Soto RN - 05/28/2014 7:51 PM EDT Problem: Skin Integrity Impairment, Risk/Actual (Adult, Obstetrics) Goal: Skin Integrity/Wound Healing Patient will demonstrate the desired outcomes. Outcome: Present (see interventions, notes) Lower aspect of incision with slight redness and scant serosang. Drainage. Problem: Pain, Acute (Adult, Obstetrics) Goal: Acceptable Pain Control/Comfort Level Patient will demonstrate the desired outcomes. Outcome: Present (see interventions, notes) Receiving scheduled tylenol and Ibuprofen per MAR along with prn oxycodone with good relief incisional pain per pain assessments. Problem: Fall/Trauma/Injury Risk (Adult, Obstetrics) Goal: Absence of Trauma/Injury/Falls Patient will demonstrate the desired outcomes. Outcome: Absent and monitoring Ambulating with steady gait with minimal standby assistance. Ambulated around pod several times.. * Plan of Care - Jazzmine Cornejo RN - 05/28/2014 4:58 AM EDT Problem: Skin Integrity Impairment, Risk/Actual (Adult, Obstetrics) Goal: Identify Signs and Symptoms and Related Risk Factors Signs and symptoms and related risk factors are identified upon initiation of Human Response Clinical Practice Guideline (CPG) Outcome: Absent and monitoring Pt remains with vertical abdominal midline incision, covered with gauze dressing and tape. Scant dried blood present from previous shift, outlined in pen. aware and assessed pt in the early AM this shift. No new signs/symptoms of bleeding present. Will continue to monitor. Problem: Pain, Acute (Adult, Obstetrics) Goal: Identify Signs and Symptoms and Related Risk Factors Signs and symptoms and related risk factors are identified upon initiation of Human Response Clinical Practice Guideline (CPG) Outcome: Present (see interventions, notes) Pt remains with Dilaudid CRTTS pump present this shift, with positive efficacy reported. Scheduled q6hr acetaminophen and ibuprofen administered. Oxycodone PO PRN was administered once for breakthroughpain with positive efficacy reported. Will continue to monitor. Problem: Fall/Trauma/Injury Risk (Adult, Obstetrics) Goal: Identify Signs and Symptoms and Related Risk Factors Signs and symptoms and related risk factors are identified upon initiation of Human Response Clinical Practice Guideline (CPG) Outcome: Absent and monitoring Reviewed personal safety recommendations, as pt is SBA in room with IV pole. Patient agreed to terms. Call carmichael in reach. Patient rings appropriately. Bed in low position. Both side rails up. * Plan of Care - Elena Blanton RN - 05/27/2014 7:49 PM EDT Problem: General Plan of Care Goal: Plan of Care Review Outcome: Present (see interventions, notes) Pt has midline incision with dressing in place. Dressing intact with dried drainage, marked drainage on dressing. New red drainage present at bottom of dressing at end of shift - MD notified and asked to assess patient. Major D/C'd today, voiding fine throughout shift. Quarter-sized blood clot present in urine - MD notified and aware. CRTTS initially discontinued, however restarted due to the epidural becoming disconnected. Patient remains on Dilaudid CRTTS, please view MAR for specific settings. PRN Oxycodone given to patient with relief. Patient ambulated once around unit and did well. Will continue to monitor. * Plan of Care - Jazzmine Cornejo RN - 05/27/2014 4:56 AM EDT Problem: Skin Integrity Impairment, Risk/Actual (Adult, Obstetrics) Goal: Identify Signs and Symptoms and Related Risk Factors Signs and symptoms and related risk factors are identified upon initiation of Human Response Clinical Practice Guideline (CPG) Outcome: Present (see interventions, notes) Pt remains with vertical abdominal midline incision covered with gauze and tape, with no s/s of infection present. Remains clean, dry, and intact. Right colostomy bag was changed this shift due to ptrequest. Skin otherwise noted to be intact. Patient repositions self independently with proper use of call carmichael. Patient able to verbalize needs to staff. Problem: Pain, Acute (Adult, Obstetrics) Goal: Identify Signs and Symptoms and Related Risk Factors Signs and symptoms and related risk factors are identified upon initiation of Human Response Clinical Practice Guideline (CPG) Outcome: Present (see interventions, notes) Pt complains of 6-7/10 pain this shift towards her midline incision. Pt states pain worsens with movement. Dilaudid CRTTS remains with positive efficacy reported after using the pump. Epidural remains running at 5/hr with efficacy reported. Scheduled tylenol and toradol administered as well. Will continue to monitor for any change. Problem: Fall/Trauma/Injury Risk (Adult, Obstetrics) Goal: Identify Signs and Symptoms and Related Risk Factors Signs and symptoms and related risk factors are identified upon initiation of Human Response Clinical Practice Guideline (CPG) Outcome: Absent and monitoring Reviewed personal safety recommendations, as pt has remained in bed for shift. Patient agreed to terms. Call carmichael in reach. Patient rings appropriately. Bed in low position. Both side rails up. * Plan of Care - Celeste Cooper RN - 05/26/2014 6:42 PM EDT Problem: Skin Integrity Impairment, Risk/Actual (Adult, Obstetrics) Goal: Identify Signs and Symptoms and Related Risk Factors Signs and symptoms and related risk factors are identified upon initiation of Human Response Clinical Practice Guideline (CPG) Outcome: Present (see interventions, notes) Patient has vertical midline incision gauze dressing in tact, clean and dry. All other skin noted to be in tact. Patient repositions self independently. Uses call carmichael appropriately. Able to make wants and needs known to staff. Problem: Hysterectomy (Adult, Obstetrics) Goal: Signs and symptoms of listed potential problems will be absent or manageable (reference (Hysterectomy (Adult, Obstetrics)) CPG) Outcome: Present (see interventions, notes) Patient is POD #0 s/p abdominal supracervical hysterectomy/BSO. Patient has not been OOB this shift. Pain well controlled with current regiment. Epidural accessed performed per protocol, left side coverage T7, right side coverage T4- L2. Using IS independently. Tolerating liquids and sherbert thus far. Urine output borderline, given 500 ml bolus per MD order. SCDs in place. Will continue to monitor. Problem: Pain, Acute (Adult, Obstetrics) Goal: Acceptable Pain Control/Comfort Level Patient will demonstrate the desired outcomes. Outcome: Present (see interventions, notes) Complains for discomfort in abdomen, particularly on R side. Patient has bupivacaine epidural in place running at 5 ml/hr and dilaudid CRTTS, settings: 0.1 mg CRTTS dose/ 5 min lockout/ 4 mg 4-hr limit. Patient also given scheduled Toradol and IV tylenol per MD order. Positive efficacy reported. Problem: Fall/Trauma/Injury Risk (Adult, Obstetrics) Goal: Absence of Trauma/Injury/Falls Patient will demonstrate the desired outcomes. Reviewed personal safety recommendations. Patient agreed to terms. Will plan to get up tonight withnursing assist. Call carmichael in reach. Patient rings appropriately. Bed in low position. * Op Note - Kadeem Palomo MD - 05/26/2014 1:16 PM EDT Operative Note Patient Name: Paul Adames : [id number] MR#: [id number] Case Date: 05/26/2014 Surgeon: Surgeon(s) and Role: * Gt Montana MD - Primary * Kadeem Palomo MD - Resident-Surgeon Chief Preoperative diagnosis: Postmenopausal bleeding, complex atypical endometrial hyperplasia on D&C Postoperative diagnosis: complex atypical hyperplasia, possible focus of FIGO grade 1 endometrial adenocarcinoma Procedure(s): Abdominal supracervical hysterectomy, bilateral salpingo- oophorectomy with washings Anesthesia: General endotrachial, epidural Findings: right hydrosalpinx, right and left adnexa adherent to the small bowel in the pelvis, absent rectum and colon, small uterus with a left broad ligament fibroid. Frozen section: mainly complex hyperplasia with possible foci of noninvasive endometrial adenocarcinoma Complications: none Fluids: 3600 cc Estimated Blood Loss: 1000 cc Drains: major 100 cc Disposition: awakened from anesthesia, extubated and taken to the recovery room in a stable condition, having suffered no apparent untoward event. Condition: doing well without problems Indications and Consent: The patient presented with postmenopausal bleeding and dilatation and curettage which revealed atypical complex endometrial hyperplasia. This was in the setting of multiple prior abdominal surgeries, including open cholecystectomy, total colectomy, and proctectomy for Crohn's disease, with end ileostomy. Given this history, decision was made to proceed with abdominal hysterectomy/BSO for surgical staging for possible focus of invasive endometrial cancer and for definitive management of postmenopausal bleeding. The patient understood the risks, benefits, and alternatives of procedure and wished to proceed, having signed the consent form. Procedure: The patient was taken to the operating room, where general endotracheal anesthesia was obtained without difficulty. She was prepped and draped in the usual sterile fashion in the dorsal lithotomy position in [facility]. A time out was performed with all members of the team in agreement. A vertical midline laparotomy was made overlying the prior laparotomy scar from 1 cm below the umbilicus down to the level of the pubic symphysis. The subcutaneous fat was divided in the midline using the Bovie to completely expose the underlying fascia, and a 1 cm fascial incision was made vertically using the Bovie. The fascial incision extended superiorly and inferiorly to the edges of the skin incision using the Bovie while the underlying preperitoneal fat and rectus muscle using a Schnidt hemostat. The Monet clamp was then used to grasp the fascia and the adherent rectus muscle on the left lateral side was dissected off using the Bovie. The peritoneum was grasped and elevated using a hemostat, and the peritoneal cavity was entered sharply with the scalpel. The peritoneal incision was extended superiorly and inferiorly in layers under direct visualization to avoid bladder or bowel injury. The omentum was noted to be adherent to the anterior abdominal wall and this was dissected away from the abdominal wall using combination of blunt dissection, sharp dissection with the Metzenbaum scissors, and the Bovie. The pelvis was then visualized and pelvic washings were then obtained. The Bookwalter retractor was then attached and the bowel was packed out of the operative field. There was noted to be a right hydrosalpinx, which was densely adherent to the small bowel on the right posterior pelvis, and these adhesions were carefully divided. The right dissected peritoneum was grasped and tented up lateral to the infundibulopelvic ligament, and the round ligament was divided using 0 Vicryl suture and the LigaSure device. The retroperitoneum was completely opened lateral and parallel to the IP, and the underlying ureter was identified in it course to the pelvis. A window was created in an avascular portion of the peritoneum between the ureter and the IP, and the IP was clamped and ligated using the LigaSure device. The proximal end was tied with a 0 Vicryl tie. The right-sided uteroovarian vessels were then ligated using the LigaSure device. Bilateral Carmalt clamps were then placed on the bilateral fallopian tubes and uteroovarian vessels to assist in elevating the uterus. The left-sided fallopian tube and ovary were then excised in an identical fashion to the right. The anterior vesicouterine peritoneum was then divided using the Bovie and the bladder was dissected down off the lower uterine segment and cervix. The bilateral uterine vessels were then clamped using the curved Zeppelin clamps and ligated using the LigaSure device and then suture ligated using 0 Vicryl sutures. There was bleeding noted from a right-sided uterine vein and this was controlled using a surgical clip. Straight Zeppelin clamps were then placed bilaterally to sequentially clamp, cut, and suture ligate portions of the cardinal ligaments bilaterally. Due to the difficulty in accessing the pelvis ,with the longest surgical instruments available, dueto the patient's morbid obesity, and the length of the cervix, decision was made to proceed with a supracervical hysterectomy at this point. The Bovie was used to amputate the cervix across its base anteriorly, and the posterior aspect was not accessible and was cut free using the Stan scissors. The specimen was sent to Pathology with the above findings. The posterior aspects where the scissors had been used on the cervix were cauterized using the Bovie. There was venous bleeding of the right aspect near branches of the uterine vessels. An attempt was made to control this using surgical clips and the Bovie without success. A single 2-0 Vicryl [id number] suture was then placed in this site for good hemostasis. The pelvis was then irrigated with a total of 3 L of warm normal saline. The endocervical canal was extensively cauterized using the Bovie. Five mL of FloSeal was then placed over the cervical stump and over the site of bleeding on the right-sided uterine vessels. Hemostasis was achieved and the area was dabbed with a clean dry lap. The Bookwalter retractor was then removed and the sponges were removed, and the sponge count was correct times two. The fascia was closed with running looped #1 PDS starting at the superior aspect of the fascial incision, with the second suture stating at the pubic symphysis, and these two sutures were tied together in the midline. The subcutaneous tissue was reapproximated to close any space with a running 2-0 plain gut suture. The skin was closed with samra. The patient tolerated the procedure well. All sponge and needle counts were correct times two. No surgical instrument counts were done as per [facility] OR policy. A postprocedural plain x-ray was performed to rule out radiopaque foreign objects, and there was no evidence of retained foreign objects. Dr. Montana, attending physician, was present for entire procedure without conflicting clinical responsibility. * OR Attestation - Gt Montana MD - 05/26/2014 11:56 AM EDT Attestation: Case Date: 05/26/2014 Gt Robbins. MD Rubén, attest that I performed this surgery with the assistance of a resident. Iwas present and participated in the entire surgery, from start to finish, as the primary and attending surgeon of record. GT MONTANA MD 05/26/2014 * Brief Op Note - Gt Montana MD - 05/26/2014 11:52 AM EDT Brief Operative Note Patient Name: Paul Adames : [id number] MR#: [id number] Case Date: 05/26/2014 Surgeon: Surgeon(s) and Role: * Gt Montana MD - Primary * Kadeem Palomo MD - Resident-Surgeon Chief Preoperative diagnosis: COMPLEX HYPERPLASIA Postoperative diagnosis: COMPLEX HYPERPLASIA Procedure(s): @HYSTERECTOMY, supracervical with BSO Anesthesia: General Findings: right hydrosalpinx, right and left adnexa adherent to the small bowel in the pelvis, absent rectum and colon, small uterus with a left broad ligament fibroid. Frozen = mainly complex hyperplasia with foci of endometrial adenocarcinoma Complications: none Fluids: 3600 cc Estimated Blood Loss: 1000 cc Drains: major 100 cc Disposition: awakened from anesthesia, extubated and taken to the recovery room in a stable condition, having suffered no apparent untoward event. Condition: doing well without problems (Please see the Surgical Encounter Summary for any Implant and Specimen details pertinent to this patient.) * Miscellaneous - Provider, Scanning - 05/26/2014 12:00 AM EDT documented in this encounter Plan of Treatment Upcoming Encounters Date Type Department Care Team (Late st Contact Info) Description 05/15/2024 1:00 PM EDT TH Visit (TeleHealth) [place] [address] Pasha Wood MD [facility] [place] [address] Pending Results Name Type Priority Associated Diagnoses Date /Time XR Fluoro OR c-arm storage only Imaging Routine 05/26/2014 8:00 AM EDT Scheduled Orders Name Type Priority Associated Diagnoses Orde r Schedule XR Fluoro OR c-arm storage only Imaging Routine Once PRN (for Ra diant use) for 1 Occurrences starting 05/26/2014 until 05/26/2014 documented as of this encounter Procedures Procedure Name Priority Date/Time Associated Diagnosis Comments NAIL CUTTER SCAN 05/30/2014 12:00 AM EDT ECG SCAN 05/30/2014 12:00 AM EDT HEMOGRAM Routine 05/29/2014 3:38 AM EDT MAGNESIUM Routine 05/29/2014 3:38 AM EDT BASIC METABOLIC PANEL Routine 05/29/2014 3:38 AM EDT HEMOGRAM Routine 05/28/2014 3:25 AM EDT MAGNESIUM Routine 05/28/2014 3:25 AM EDT BASIC METABOLIC PANEL Routine 05/28/2014 3:25 AM EDT HEMOGRAM Routine 05/27/2014 3:45 AM EDT MAGNESIUM Routine 05/27/2014 3:45 AM EDT BASIC METABOLIC PANEL Routine 05/27/2014 3:45 AM EDT XR ABDOMEN 1 VIEW STAT 05/26/2014 11: 56 AM EDT SPECIMEN TO PATHOLOGY STAT 05/26/2014 10:24 AM EDT SPECIMEN TO PATHOLOGY Routine 05/26/2014 10:12 AM EDT FROZEN SECTION REPORT Routine 05/26/2014 10:07 AM EDT SURGICAL PATHOLOGY REPORT Routine 05/26/2014 10:07 AM EDT SPECIMEN TO PATHOLOGY Routine 05/26/2014 9:53 AM EDT NON-HOSPITAL RECEPTIONIST FINAL REPORT Routine 05/26/2014 9:13 AM EDT CYTOPATHOLOGY NON-GYNECOLOGICAL Routine 05/26/2014 8:59 AM EDT @HYSTERECTOMY, TOTAL ABD., W W/O BSO (WRVU 17.31) 05/26/2014 7:54 AM EDT COMPLEX HYPERPLASIA POCT GLUCOSE Routine 05/26/2014 7:43 AM EDT documented in this encounter Results * SCAN DOC: NAIL CUTTER (05/30/2014 12:00 AM EDT) Anatomical Region Laterality Modality Other Narrative 05/30/2014 10:20 AM EDT Procedure Note Provider, Scanning - 05/30/2014 12:00 AM EDT Scanning Provider MEDIA MGR SCAN EXT O RDR/RSLT * SCAN DOC: ECG (05/30/2014 12:00 AM EDT) Narrative 05/30/2014 10:20 AM EDT Procedure Note Provider, Scanning - 05/30/2014 12:00 AM EDT Scanning Provider MEDIA MGR SCAN EXT O RDR/RSLT * Magnesium (05/29/2014 3:38 AM EDT) Magnesium 0.78 0.69 - 1.07 mmol/L CERNER MILLENNIUM Blood specimen (specimen) 05/29/2014 3:38 AM EDT 05/29/2014 4:11 AM EDT Narrative Resulting Agency Comment Spec In Lab Gt Montana MD CHEMISTRY ORDERABLES CERNER MILLENNIUM * (ABNORMAL) Hemogram (05/29/2014 3:38 AM EDT) White Blood Cell 13.4(H) 4.0 - 10.0 x10(3)/mc L CERNER MILLENNIUM Red Blood Cell 3.20(L) 3.93 - 5.22 x10(6)/mc L CERNER MILLENNIUM Hemoglobin 9.7(L) 11.2 - 15.7 gm/dL CERNER MILLENNIUM Hematocrit 30.5(L) 34.0 - 45.0 % CERNER MILLENNIUM Mean Cell Volume 95.3(H) 79.0 - 94.0 fL CERNER MILLENNIUM Mean Cell Hemoglobin 30.3 26.6 - 32.2 pg CERNER MILLENNIUM Mean Cell Hemoglobin Concentration 31.8(L) 32.0 - 36.5 gm/dL CERNER MILLENNIUM Platelet 358 145 - 370 x10(3)/mc L CERNER MILLENNIUM RDW Standard Deviation 50.8(H) 35.0 - 46.0 fL CERNER MILLENNIUM RDW coefficient of variation 14.6(H) 10.9 - 14.4 % CERNER MILLENNIUM Mean Platelet Volume 9.3 9.0 - 12.0 fL CERNER MILLENNIUM Blood specimen (specimen) 05/29/2014 3:38 AM EDT 05/29/2014 4:11 AM EDT Narrative Resulting Agency Comment Spec In Lab Gt Montana MD HEMATOLOGY ORDERABLE S CERNER MILLENNIUM * (ABNORMAL) Basic Metabolic Panel (non-fasting) (05/29/2014 3:38 AM EDT) Glucose 83 60 - 199 mg/dL CERNER MILLENNIUM Comment:Diabetes: >=200 mg/d L plus symptoms Blood Urea Nitrogen 8 8 - 18 mg/dL CERNER MILLENNIUM Creatinine 0.58(L) 0.70 - 1.20 mg/dL CERNER MILLENNIUM Comment: Please note that the pediatric reference intervals supplied above were not validated at [facility]. Results from pediatric patients should be interpreted in conjunction to the patient's age, height and muscle mass. Sodium 144 135 - 145 mmol/L CERNER MILLENNIUM Potassium 3.6 3.5 - 5.0 mmol/L CERNER MILLENNIUM Comment: Please note: ??Patients with WBC >100,000 may have falsely elevated Potassium levels. ??For accurate Potassium quantification in these patients send serum separator tube (gold top) for subsequent determinations. ??Contact the Clinical Chemistry Laboratory if there are any questions. Chloride 104 98 - 107 mmol/L CERNER MILLENNIUM Carbon Dioxide 30 22 - 31 mmol/L CERNER MILLENNIUM Anion Gap 10 5 - 15 mmol/L CERNER MILLENNIUM Calcium 8.9 8.5 - 10.5 mg/dL CERNER MILLENNIUM Est Glomerular Filtration Rate >60 >=60 CERNER MILLENNIUM Comment: This estimated GFR (eGFR) value was calculated using the MDRD equation which has been validated on patients between the ages of 18 and 70. The MDRD should not be used to assess kidney function in patients < 18 years of age or in patients with extremes of body mass, or in patients with acute kidney failure. This value should be multiplied by 1.2 for patients. For further information please copy and paste the following links into your internet browser. [email or web address] Blood specimen (specimen) 05/29/2014 3:38 AM EDT 05/29/2014 4:11 AM EDT Narrative Resulting Agency Comment Spec In Lab Gt Montana MD CHEMISTRY ORDERABLES Performing Organization Address [facility] Co de Phone Number CERNER MILLENNIUM * Magnesium (05/28/2014 3:25 AM EDT) Magnesium 0.75 0.69 - 1.07 mmol/L CERNER MILLENNIUM Blood specimen (specimen) 05/28/2014 3:25 AM EDT 05/28/2014 3:48 AM EDT Narrative Resulting Agency Comment Spec In Lab Gt Montana MD CHEMISTRY ORDERABLES Performing Organization Address [facility] Co de Phone Number CERNER MILLENNIUM * (ABNORMAL) Hemogram (05/28/2014 3:25 AM EDT) White Blood Cell 13.7(H) 4.0 - 10.0 x10(3)/mc L CERNER MILLENNIUM Red Blood Cell 3.00(L) 3.93 - 5.22 x10(6)/mc L CERNER MILLENNIUM Hemoglobin 9.2(L) 11.2 - 15.7 gm/dL CERNER MILLENNIUM Hematocrit 28.7(L) 34.0 - 45.0 % CERNER MILLENNIUM Mean Cell Volume 95.7(H) 79.0 - 94.0 fL CERNER MILLENNIUM Mean Cell Hemoglobin 30.7 26.6 - 32.2 pg CERNER MILLENNIUM Mean Cell Hemoglobin Concentration 32.1 32.0 - 36.5 gm/dL CERNER MILLENNIUM Platelet 324 145 - 370 x10(3)/mc L CERNER MILLENNIUM RDW Standard Deviation 50.0(H) 35.0 - 46.0 fL CERNER MILLENNIUM RDW coefficient of variation 14.4 10.9 - 14.4 % CERNER MILLENNIUM Mean Platelet Volume 9.2 9.0 - 12.0 fL CERNER MILLENNIUM Blood specimen (specimen) 05/28/2014 3:25 AM EDT 05/28/2014 3:48 AM EDT Narrative Resulting Agency Comment Spec In Lab Gt Montana MD HEMATOLOGY ORDERABLE S CERNER MILLENNIUM * (ABNORMAL) Basic Metabolic Panel (non-fasting) (05/28/2014 3:25 AM EDT) Glucose 109 60 - 199 mg/dL CERNER MILLENNIUM Comment:Diabetes: >=200 mg/d L plus symptoms Blood Urea Nitrogen 11 8 - 18 mg/dL CERNER MILLENNIUM Creatinine 0.54(L) 0.70 - 1.20 mg/dL CERNER MILLENNIUM Comment: Please note that the pediatric reference intervals supplied above were not validated at [facility]. Results from pediatric patients should be interpreted in conjunction to the patient's age, height and muscle mass. Sodium 143 135 - 145 mmol/L CERNER MILLENNIUM Potassium 3.9 3.5 - 5.0 mmol/L CERNER MILLENNIUM Comment: Please note: ??Patients with WBC >100,000 may have falsely elevated Potassium levels. ??For accurate Potassium quantification in these patients send serum separator tube (gold top) for subsequent determinations. ??Contact the Clinical Chemistry Laboratory if there are any questions. Chloride 105 98 - 107 mmol/L CERNER MILLENNIUM Carbon Dioxide 29 22 - 31 mmol/L CERNER MILLENNIUM Anion Gap 9 5 - 15 mmol/L CERNER MILLENNIUM Calcium 8.6 8.5 - 10.5 mg/dL CERNER MILLENNIUM Est Glomerular Filtration Rate >60 >=60 CERNER MILLENNIUM Comment: This estimated GFR (eGFR) value was calculated using the MDRD equation which has been validated on patients between the ages of 18 and 70. The MDRD should not be used to assess kidney function in patients < 18 years of age or in patients with extremes of body mass, or in patients with acute kidney failure. This value should be multiplied by 1.2 for patients. For further information please copy and paste the following links into your internet browser. [email or web address] [email or web address] Blood specimen (specimen) 05/28/2014 3:25 AM EDT 05/28/2014 3:48 AM EDT Narrative Resulting Agency Comment Spec In Lab tG Montana MD CHEMISTRY ORDERABLES Performing Organization Address [facility] Co de Phone Number CERNER MILLENNIUM * (ABNORMAL) Magnesium (05/27/2014 3:45 AM EDT) Magnesium 0.64(L) 0.69 - 1.07 mmol/L CERNER MILLENNIUM Blood specimen (specimen) 05/27/2014 3:45 AM EDT 05/27/2014 3:56 AM EDT Narrative Resulting Agency Comment Spec In Lab Gt Montana MD CHEMISTRY ORDERABLES Performing Organization Address [facility] Co de Phone Number CERNER MILLENNIUM * (ABNORMAL) Hemogram (05/27/2014 3:45 AM EDT) White Blood Cell 18.0(H) 4.0 - 10.0 x10(3)/mc L CERNER MILLENNIUM Red Blood Cell 3.27(L) 3.93 - 5.22 x10(6)/mc L CERNER MILLENNIUM Hemoglobin 10.1(L) 11.2 - 15.7 gm/dL CERNER MILLENNIUM Hematocrit 30.4(L) 34.0 - 45.0 % CERNER MILLENNIUM Mean Cell Volume 93.0 79.0 - 94.0 fL CERNER MILLENNIUM Mean Cell Hemoglobin 30.9 26.6 - 32.2 pg CERNER MILLENNIUM Mean Cell Hemoglobin Concentration 33.2 32.0 - 36.5 gm/dL CERNER MILLENNIUM Platelet 334 145 - 370 x10(3)/mc L CERNER MILLENNIUM RDW Standard Deviation 47.2(H) 35.0 - 46.0 fL CERNER MILLENNIUM RDW coefficient of variation 14.0 10.9 - 14.4 % CERNER MILLENNIUM Mean Platelet Volume 8.9(L) 9.0 - 12.0 fL CERNER MILLENNIUM Blood specimen (specimen) 05/27/2014 3:45 AM EDT 05/27/2014 3:56 AM EDT Narrative Resulting Agency Comment Spec In Lab Gt Montana MD HEMATOLOGY ORDERABLE S CERNER MILLENNIUM * (ABNORMAL) Basic Metabolic Panel (non-fasting) (05/27/2014 3:45 AM EDT) Glucose 157 60 - 199 mg/dL CERNER MILLENNIUM Comment:Diabetes: >=200 mg/d L plus symptoms Blood Urea Nitrogen 11 8 - 18 mg/dL CERNER MILLENNIUM Creatinine 0.66(L) 0.70 - 1.20 mg/dL CERNER MILLENNIUM Comment: Please note that the pediatric reference intervals supplied above were not validated at [facility]. Results from pediatric patients should be interpreted in conjunction to the patient's age, height and muscle mass. Sodium 136 135 - 145 mmol/L CERNER MILLENNIUM Potassium 4.1 3.5 - 5.0 mmol/L CERNER MILLENNIUM Comment: Please note: ??Patients with WBC >100,000 may have falsely elevated Potassium levels. ??For accurate Potassium quantification in these patients send serum separator tube (gold top) for subsequent determinations. ??Contact the Clinical Chemistry Laboratory if there are any questions. Chloride 99 98 - 107 mmol/L CERNER MILLENNIUM Carbon Dioxide 25 22 - 31 mmol/L CERNER MILLENNIUM Anion Gap 12 5 - 15 mmol/L CERNER MILLENNIUM Calcium 8.6 8.5 - 10.5 mg/dL CERNER MILLENNIUM Est Glomerular Filtration Rate >60 >=60 CERNER MILLENNIUM Comment: This estimated GFR (eGFR) value was calculated using the MDRD equation which has been validated on patients between the ages of 18 and 70. The MDRD should not be used to assess kidney function in patients < 18 years of age or in patients with extremes of body mass, or in patients with acute kidney failure. This value should be multiplied by 1.2 for patients. For further information please copy and paste the following links into your internet browser. [email or web address] [email or web address] Blood specimen (specimen) 05/27/2014 3:45 AM EDT 05/27/2014 3:56 AM EDT Narrative Resulting Agency Comment Spec In Lab Gt Montana MD CHEMISTRY ORDERABLES TERESA [employer] * XR abdomen 1 view (05/26/2014 11:56 AM EDT) Anatomical Region Laterality Modality Abdomen N/A Radiographic Griselda ging 05/26/2014 11:5 6 AM EDT Narrative 05/26/2014 12:00 PM EDT Examination ABDOMEN SINGLE VIEW/XPORT Clinical History 63-year-old female status post hysterectomy. ?? CRITICAL TEST PLEASE CALL WITH RESULT. rule out retained object Comparison None Technique Single portable view in the OR performed 1150 hr. ??Results called to Dr. Montana. Findings Images from the level of L1-2 to the symphysis. ??There is a looped OG tube catheter looped at L2 which could be repositioned. There is midline skin samra over the lower pelvis and surgical clips in the pelvis status post hysterectomy. ??There is no evidence for retained foreign body. Degenerative changes are noted in the hips. ??Findings called to Dr. Montana in OR Room [address] Jarvis, ??at 11;55. Impression Procedure Note Jasmin Jarvis MD - 05/26/2014 Examination ABDOMEN SINGLE VIEW/XPORT Clinical History 63-year-old female status post hysterectomy. CRITICAL TEST PLEASE CALL WITH RESULT. rule out retained object Comparison None Technique Single portable view in the OR performed 1150 hr. Results called to Dr. Montana. Findings Images from the level of L1-2 to the symphysis. There is a looped OG tube catheter looped at L2 which could be repositioned. There is midline skin samra over the lower pelvis and surgical clips in the pelvis status post hysterectomy. There is no evidence for retained foreign body.Degenerative changes are noted in the hips. Findings called to Dr. Montana in OR Room9 by Dr. Jarvis, at 11;55. Impression Gt Montana MD IMG DX ORDERABLES * Specimen to Pathology (surgical or derm) (05/26/2014 10:24 AM EDT) AP Specimen 05/26/2014 10:2 4 AM EDT 05/26/2014 10:24 AM EDT Narrative TERESA MILLENNIUM - 05/26/2014 10:24 AM EDT Specimen requisition ordered. ??Separate Pathology report to follow Gt Montana MD PATHOLOGY/CYTOLOGY O BRANDON Performing Organization Address [facility] de Phone Number [facility] * Specimen to Pathology (surgical or derm) (05/26/2014 10:12 AM EDT) AP Specimen 05/26/2014 10:1 2 AM EDT 05/26/2014 10:12 AM EDT Narrative TERESA DELGADOIUM - 05/26/2014 10:12 AM EDT Specimen requisition ordered. ??Separate Pathology report to follow Gt Montana MD PATHOLOGY/CYTOLOGY O BRANDON Performing Organization Address [facility] de Phone Number [facility] * Surgical Pathology Report (05/26/2014 10:07 AM EDT) Final Diagnosis 00- [id number] ? Location: 1WST; 0114; A The signing pathologist has (i) examined the relevant preparation(s) for the specimen(s) and (ii) rendered or confirmed the diagnosis(es). . ?Pathology Surgical Pathology Final Report Clinical Information Specimen Submitted: A - Left tube and ovary B - Uterus and portion of cervix for frozen section C - Right tube and ovary Clinical History: Complex hyperplasia Clinical Diagnosis: Same Gross Description A - Labeled/Fixative: Left tube and ovary, fresh. Qty/Size/Weight: Single, 5.5 x 5.0 x 2.5 cm, 16 grams (overall). Specimen Description: Intact ovary having cortez, cerebriform external surface with fibrous adhesions to the overlying nonfimbriated fallopian tube segment. Adjacent to the adhesed portion of fallopian tube is a 1.3 x 1.0 x 0.8 cm firm pink nodule having a whorled yellow-white surface. Additionally, attached to the mesovarium soft tissue by a 1.3 x 0.4 cm pedicle is a 2.5 x 2.0 x 2.0 cm well-circumscribe d firm nodule demonstrating a white, whorled cut surface. OVARY Size: 3.4 x 2.0 x 1.7 cm. External Surface: cerebriform with fibrous adhesions to the overlying 5.5 cm nonfimbriated fallopian tube segment. Cut Surface: Homogeneous yellow-mills with scattered corpora albicantia. FALLOPIAN TUBE Size: 0.5 x up to 1.0 cm, containing clear fluid. External Surface: congested brown and smooth serosa. SECTIONS/PROCESSI NG: Metal Extrusion Supervisor sections are submitted. (A1-A2) ovary with portion of fallopian tube and adjacent nodule; (A3-A4) Metal Extrusion Supervisor section of ovary; (A5) Metal Extrusion Supervisor fallopian tube; (A6) help desk representative larger, attached fibroid nodule. (R6) B - Labeled/Fixative: Uterus and portion of cervix, fresh, for frozen section. Qty/Size/Weight: Single, 7.0 x 5.3 x 5.0 cm, 93 grams. Specimen Description: Intact, supracervical hysterectomy without attached adnexa. ENDOMETRIAL TUMOR Size: 3.5 x 3.0 x 1.0 cm. Qualitative Description: Polypoid. Location: Anterior fundus. Myometrial Invasion: Less than one half. Cervical Lymphatic or Vascular invasion: Not grossly identified. UTERUS Endometrium: 5.3 x 3.7 x up to 0.4 cm. The endometrium appears lobulated and granular. Myometrium: Varigated-pink and reticulated with intramural fibrous nodules anteriorly measuring up to 0.7 cm along with cystic appearing foci suggestive of adenomyosis. Serosa: Congested red-brown with focally charred fibrous adhesions posteriorly. Cervix: No ectocervix is present. OVARIES AND FALLOPIAN TUBES Not present with this specimen. SECTIONS/PROCESSI NG: Metal Extrusion Supervisor sections from the polypoid mass and anterior lower uterine segment are submitted for frozen section as BFS 1-2 and BFS 3-4 . Gross Description respectively. (1-2) frozen section remnant full-thickness section of polypoid mass and anterior myometrium; (3-4) frozen section remnant anterior lower uterine segment-cervical end charred; (5-6) remaining anterior lower uterine segment- cervical end charred; (7-10) posterior lower uterine segment-cervical end charred; (11-24) full-thickness anterior endometrium from fundus to cervix-each slice divided into two cassettes; (25-53) full-thickness posterior endometrium from fundus to cervix-[25-30 each slice bisected, 31-46 each slice trisected, 47-52 each slice bisected, 53 = single complete slice]. ??(R. 53) C - Labeled/Fixative: Right tube and ovary, fresh. Qty/Size/Weight: Single, 5.0 x 4.4 x 2.5 cm, 17 grams (overall). Specimen Description: Intact ovary and attached nonfimbriated fallopian tube and adherent yellow-brown fibrofatty tissue. OVARY Size: 4.0 x 2.3 x 0.5 cm. External Surface: Convoluted, yellow-brown and partially obscured by the adherent fibroadipose tissue. Cut Surface: Varigated peripherally yellow-white and centrally mills-brown. FALLOPIAN TUBE Size: 5.7 x up to 1.6 cm. External Surface: Intact congested, partially obscured by focally hemorrhagic brown fibrous adhesions. SECTIONS/PROCESSI NG: (1-3) ovary; (4) fallopian tube. (R4) ?shb Microscopic Description Slides reviewed, microscopic description not recorded. Whole slide scan: [id number] S [id number] S [id number] Diagnosis A - Left ovary and fallopian tube, resection: ?1 - Stromal hyperplasia with stromal hyperthecosis, ovary. ?2 - Mild hydrosalpinx. ?3 - Para-ovarian leiomyoma. B - Specimen type: ?Uterus, supracervical hysterectomy Histologic type: ?Endometrial carcinoma, endometrioid ?type, arising in a background of ?complex hyperplasia with atypia ?and with partial involvement of a ?polyp (see Comment) ?? FIGO grade: ?I ?Architectural grade: ?1 ?Nuclear grade: ?2 Tumor size: ? Polypoid mass: 3.5 x 3.0 x 1.0 cm (see ?Comment) Myometrial invasion (no invasion, <1/2, >1/2): ?? <1/2 ?? Depth of invasion (mm): ?? 2 mm ?? Width of myometrium (mm): 16 mm Myometrial lymphovascular ?? space invasion: ?Not identified Lower uterine segment ?? involvement: ? Absent Cervical involvement: ? Cervix not involved by tumor Other: ?1 - Small uterine leiomyomata. ?2 - Adenomyosis. ?3 - Atrophic endometrium remote from ?tumor. . Diagnosis TNM Staging ??(AJCC, 7th ed., 2009): Primary tumor stage: ?pT1a [IA] (Tumor limited to endometrium or ? invades less than 1/2 of myometrial ? width) Regional lymph nodes: ? pNX ??(Cannot be assessed) Distant metastasis: ? pMX ??(Not applicable or not assessed) C - Right ovary and fallopian tube, resection: ?1 - Stromal hyperplasia with stromal hyperthecosis, ovary. ?2 - Mild hydrosalpinx. CR-0 05/28/14 ARS 05/28/14 Verified by: ? Rebecca LU, Clayton Everett ?Pathologist ?(Electronic Signature) The attending pathologist whose signature appears on this report has reviewed all diagnostic slides and has edited the gross and/or microscopic portion of the report in rendering the final pathologic diagnosis. Comment Carcinoma is seen to arise from areas of complex hyperplasia within the anterior fundic polyp. ??Carcinoma is also present in the flat endometrium surrounding the polyp, extending laterally for an estimated 2 cm. ??It is from the flat areas of neoplastic endometrium that tongues of tumor focally invade superficially into the myometrium. ? Pathology Frozen Section Report Frozen Section Report BFS - Uterus and portion of cervix: At least complex hyperplasis within a ?polypoid mass, with possible/probable early endometrial carcinoma, ?negative for invasion into the myometrium. ?Lower uterine segment negative for malignancy. ?(ARS) 05/26/14 11:20 05/26/14 ??Verified by: ??Rebecca LU, Clayton Everett, Pathologist The attending pathologist whose electronic signature appears on this report has reviewed all diagnostic slides in rendering the frozen section diagnosis. This intraoperative consultation should be interpreted as a preliminary diagnosis pending review of the entire specimen and special studies, if any. 05/28/2014 11:02 AM EDT [facility] OVARIAN PART / Unknown 05/26/2014 10:07 AM EDT 05/26/2014 10:07 AM EDT Uterine Corpus 05/26/2014 10 :07 AM EDT 05/26/2014 10:07 AM EDT OVARIAN PART / Unknown 05/26/2014 10:07 AM EDT 05/26/2014 10:07 AM EDT Gt [place] MD PATHOLOGY/CYTOLOGY O RDERABLES Performing Organization Address [facility]/State/[facility] Co de Phone Number TERESA [facility] [place] [address] * Frozen Section Report (05/26/2014 10:07 AM EDT) Frozen Section Report ? [facility] ? Provider: ?? GT [place] ?? Pt. Name: ?? PAUL ADAMES ? Acc #: ?[id number] ?Pt. ? Col Date: ?? 05/26/2014 ?/Sex: ?1950,(63 years),Female ? Rec Date: ?? 05/26/2014 ?LOC: ?SDA ? FROZEN SECTION REPORT ? ---Frozen Section Report--- ? BFS - Uterus and portion of cervix: At least complex hyperplasis within a ? polypoid mass, with possible/probable early endometrial carcinoma, ? negative for invasion into the myometrium. ? Lower uterine segment negative for malignancy. ? (ARS) 05/26/14 11:20 ? 05/26/14 ??Verified by: ??Rebecca LU, Clayton Everett, Pathologist ? The attending pathologist whose electronic signature appears on this report ? has reviewed all diagnostic slides in rendering the frozen section ? diagnosis. ? This intraoperative consultation should be interpreted as a preliminary ? diagnosis pending review of the entire specimen and special studies, if ? any. TERESA MAYES 05/26/2014 10:0 7 AM EDT Gt Montana MD PATHOLOGY/CYTOLOGY O BRANDON Performing Organization Address City/[facility]/ZIP Co de Phone Number TERESA MAYES * Specimen to Pathology (surgical or derm) (05/26/2014 9:53 AM EDT) AP Specimen 05/26/2014 9:53 AM EDT 05/26/2014 9:53 AM EDT Narrative TERESA MAYES - 05/26/2014 9:53 AM EDT Specimen requisition ordered. ??Separate Pathology report to follow Gt Montana MD PATHOLOGY/CYTOLOGY O BRANDON TERESA MAYES * Non-Financial Developer Final Report (05/26/2014 9:13 AM EDT) Diagnosis Discussion ? [facility] ? Provider: ?? GT [place] ?? Pt. Name: ?? PAUL ADAMES ? Acc #: ?[id number] ?Pt. ? Col Date: ?? 05/26/2014 ?/Sex: ?1950,(63 years),Female ? Rec Date: ?? 05/26/2014 ?LOC: ?1WST ? CYTOPATHOLOGY: ??NGYN ? ---Adequacy--- ? Specimen submitted is less than optimal. ??See Comment. ? ---Cytopathologi c Diagnosis--- ? See Comment ? 05/27/14 ?Screened by: ? LMY ? Rescreened by: ?? SKG,PRICE ACCURACY SUPERVISOR, ? 05/27/14 ?Verified by: ? PEPPER LU, [place] ?Pathologist ?(Electronic Signature) ? ---Comment--- ? Pelvic washings: ? Predominantly blood and rare mesothelial cells are present. ??Cell block ? shows similar features. ? ---Clinical Information--- ? Specimen Source: ?Pelvic washings ? Pertinent Clinical Data and Significant Therapy: ?Complex hyperplasia ? Clinical Impression: ?Complex hyperplasia ? Pertinent Radiologic Findings: ?(not provided) ? Gross Description: ?Received fresh, approximately 100 ml. total volume of cloudy, bloody ? fluid. ?Total Preparation: Liquid Based Prep 1; Cell Block 1. 05/27/2014 1:37 PM EDT [facility] Pelvic Washing 05/26/2014 9: 13 AM EDT 05/26/2014 9:13 AM EDT Gt Montana MD PATHOLOGY/CYTOLOGY O BRANDON Performing Organization Address [facility] Co de Phone Number TERESA MAYES [facility] [place] [address] * Cytopathology Non-Gynecological (05/26/2014 8:59 AM EDT) AP Specimen 05/26/2014 8:59 AM EDT 05/26/2014 8:59 AM EDT Narrative TERESA MAYES - 05/26/2014 8:59 AM EDT Specimen requisition ordered. ??Separate Pathology report to follow Gt Montana MD PATHOLOGY/CYTOLOGY O BRANDON Performing Organization Address [facility]/[place] de Phone Number TERESA MAYES * (ABNORMAL) POCT Glucose (05/26/2014 7:43 AM EDT) Glucose, POC 41(L) 60 - 199 mg/dL TERESA MAYES Comment: Supplemental ranges: <140 mg/dL before meals <180 mg/dL all other times of the day Blood specimen (specimen) 05/26/2014 7:43 AM EDT 05/26/2014 7:43 AM EDT Gt Montana MD POINT OF CARE TEST O BRANDON Performing Organization Address [facility] Co de Phone Number TERESA RADHAPARRISH documented in this encounter Visit Diagnoses Diagnosis Endometrial hyperplasia Endometrial hyperplasia, unspecified documented in this encounter Administered Medications Inactive Administered Medications - up to 3 most recent administrations Medication Order MAR Action Action Date Dose Rate Site acetaminophen (OFIRMEV) injection 1,000 mg 1,000 mg, Intravenous, at 400 mL/hr, Administer over 15 Minutes, EVERY 6 HOURS SCHEDULED, 4 doses, First dose on Sun05/26/14 at 1300, Last dose on Sun05/27/14 at 0600, Maximum dose of acetaminophen is 4000 mg from all sources in 24 hours., Routine, Is the indication for perioperative pain? Yes, Are alternative routes (po or pr) not appropriate in this patient? Yes Given 05/27/2014 6:29 AM EDT 1,000 mg 400 mL/hr Given 05/26/2014 11:46 PM EDT 1,000 mg 400 mL/hr Given 05/26/2014 6:39 PM EDT 1,000 mg 400 mL/hr acetaminophen (TYLENOL) tablet 650 mg 650 mg, Oral, ONCE, 1 dose, On Sun05/26/14 at 0630, Maximum dose of acetaminophen is 4000 mg from all sources in 24 hours., Day of Surgery (Day of Procedure), Routine Given 05/26/2014 6:12 AM EDT 650 mg acetaminophen (TYLENOL) tablet 650 mg 650 mg, Oral, EVERY 6 HOURS, First dose (after last modification) on Sun05/27/14 at 1200, Until Discontinued, Maximum dose of acetaminophen is 4000 mg from all sources in 24 hours., Routine Given 05/29/2014 5:20 AM EDT 650 mg Given 05/28/2014 11:28 PM EDT 650 mg Given 05/28/2014 5:48 PM EDT 650 mg BUpivacaine 0.125% in NS (MARCAINE) (1.25 mg/mL) (1/8%) neuraxial 5-10 mL/hr, Epidural, CONTINUOUS, Starting on Sun05/26/14 at 1200, Until Sun05/26/14 at 1424, Routine Rate/Dose Change 05/26/2014 1:33 PM EDT 5 mL/hr 5 mL/hr Rate/Dose Change 05/26/2014 12:43 PM EDT 7 mL/hr 7 mL/h r BUpivacaine 0.125% in NS (MARCAINE) (1.25 mg/mL) (1/8%) neuraxial 5 mL/hr, Epidural, CONTINUOUS, Starting on Sun05/26/14 at 1445, Until Margarita 05/28/14 at 0650, Maximum rate for continuous infusion 14 mL per hour Maximum total epidural rate (continuous and PCEA bolus) is 25 mL per hour, Routine, Patient Controlled Epidural Analgesia (PCEA): 0 mL, PCEA Frequency: None Rate/Dose Verify 05/27/2014 9:03 AM EDT 5 mL/hr 5 mL/hr Rate/Dose Verify 05/27/2014 6:30 AM EDT 5 mL/hr 5 mL/hr Rate/Dose Verify 05/26/2014 2:45 PM EDT 5 mL/hr 5 mL/hr ceFAZolin (ANCEF) 2g in dextrose 5% 50 mL 2 g, Intravenous, ONCE, 1 dose, On Sun05/26/14 at 0630, Redose after 4 hours., Day of Surgery (Day of Procedure), Indication for (Active or Suspected): Prophylaxis Given 05/26/2014 6:30 AM EDT 2 g DULoxetine (CYMBALTA) capsule 60 mg 60 mg, Oral, DAILY, First dose on Sun05/27/14 at 0900, Until Discontinued, Routine Given 05/29/2014 9:10 AM EDT 60 mg Given 05/28/2014 9:07 AM EDT 60 mg Given 05/27/2014 9:06 AM EDT 60 mg enoxaparin (LOVENOX) injection 40 mg 40 mg, Subcutaneous, DAILY, First dose on Sun05/27/14 at 0900, Until Discontinued, Routine Given 05/27/2014 9:07 AM EDT 40 mg enoxaparin (LOVENOX) injection 40 mg 40 mg, Subcutaneous, EVERY 24 HOURS SCHEDULED (Daily), First dose on Sun05/28/14 at 1000, Until Discontinued, Routine Given 05/29/2014 9:10 AM EDT 40 mg Left Upper Outer James drant Given 05/28/2014 11:23 AM EDT 40 mg L eft Lower Quadrant fentaNYL 50mcg/mL injection 12.5-50 mcg, Intravenous, EVERY 1 MIN PRN, Starting on Sun05/26/14 at 0608, Until Sun05/26/14 at 0822, for use during epidural placement only, Day of Surgery (Day of Procedure), Routine Given 05/26/2014 7:21 AM EDT 25 mcg Given 05/26/2014 7:14 AM EDT 25 mcg Given 05/26/2014 7:05 AM EDT 25 mcg gabapentin (NEURONTIN) capsule 600 mg 600 mg, Oral, ONCE, 1 dose, On Sun05/26/14 at 0630, Day of Surgery (Day of Procedure), Routine Given 05/26/2014 6:12 AM EDT 600 mg hydrochlorothiazide (HYDRODIURIL) tablet 25 mg 25 mg, Oral, DAILY, First dose on Sun05/29/14 at 1100, Until Discontinued, Routine Given 05/29/2014 10:47 AM EDT 25 mg hydrocortisone sodium succinate (PF) (Solu-CORTEF) injection 100 mg 100 mg, Intravenous, ONCE, 1 dose, On Sun05/26/14 at 1600 Given 05/26/2014 3:38 PM EDT 100 mg HYDROmorphone (DILAUDID) 0.2 mg/mL 10mL Syringe (IR ONLY) 0.2-0.4 mg, Intravenous, EVERY 5 MIN PRN, Pain, Starting on Sun05/26/14 at 1139, Until Sun05/26/14 at 1636, For moderate pain give: 0.2 mg every 5 minute prn For severe pain give: 0.4 mg every 5 minutes prn Maximum dose: 4 mg per hour Hold for respiratory rate less than 10 per minute., PACU Recovery Given 05/26/2014 1:07 PM EDT 0.4 mg Given 05/26/2014 12:55 PM EDT 0.4 mg Given 05/26/2014 12:31 PM EDT 0.4 mg HYDROmorphone (DILAUDID) 1 mg/mL CRTTS 30 mL Intravenous, CRTTS ONLY, Starting on Sun05/26/14 at 1300, Until Sun05/27/14 at 1705, Recovery (Recovery-Hospital Unit) Rate/Dose Verify 05/27/2014 9:03 AM E DT New Syringe/Cartridge 05/26/2014 12:40 PM EDT 30 mg HYDROmorphone (DILAUDID) 1 mg/mL CRTTS 30 mL Intravenous, CRTTS ONLY, Starting on Sun05/27/14 at 1930, Until Margarita 05/28/14 at 0648 New Syringe/Cartridge 05/27/2014 7:31 PM EDT 30 mg ibuprofen (ADVIL;MOTRIN) tablet 600 mg 600 mg, Oral, EVERY 6 HOURS SCHEDULED, First dose on Sun05/27/14 at 1200, Until Discontinued, - Begin after ketorolac discontinued. , Routine Given 05/29/2014 5:20 AM EDT 600 mg Given 05/28/2014 11:28 PM EDT 600 mg Given 05/28/2014 5:48 PM EDT 600 mg ketorolac (TORADOL) injection 15 mg 15 mg, Intravenous, EVERY 6 HOURS SCHEDULED, 4 doses, First dose on Sun05/26/14 at 1300, Last dose on Sun05/27/14 at 0600, Routine Given 05/27/2014 6:29 AM EDT 1 5 mg Given 05/26/2014 11:46 PM EDT 15 mg Given 05/26/2014 5:28 PM EDT 15 mg lactated ringers 500 mL IV bolus Intravenous, ONCE, 1 dose, On Sun05/26/14 at 1700 Given 05/26/2014 5:05 PM EDT lactated ringers infusion 1,000 mL 1,000 mL, at 100 mL/hr, Intravenous, CONTINUOUS, Starting on Sun05/26/14 at 1300, Until Sun05/27/14 at 0922 Rate/Dose Verify 05/27/2014 9:03 AM EDT 1,000 mLs 100 mL/hr New Bag 05/27/2014 4:17 AM EDT 1,000 mLs 100 mL/hr New Bag 05/26/2014 5:48 PM EDT 1,000 mLs 100 mL/hr levothyroxine (SYNTHROID) tablet 125 mcg 125 mcg, Oral, DAILY, First dose on Sun05/26/14 at 1700, Until Discontinued, Routine Given 05/27/2014 9:06 AM EDT 125 mcg levothyroxine (SYNTHROID) tablet 125 mcg 125 mcg, Oral, EVERY MORNING, First dose (after last modification) on Sun05/28/14 at 0600, Until Discontinued, Routine Given 05/28/2014 6:00 AM EDT 125 mcg levothyroxine (SYNTHROID) tablet 150 mcg 150 mcg, Oral, USER SPECIFIED (Once per day on Sun), First dose on Sun05/29/14 at 0600, Until Discontinued, 5 days/week-- Sunday through Sunday, Routine Given 05/29/2014 5:20 AM ED T 150 mcg LORazepam (ATIVAN) tablet 1 mg 1 mg, Oral, ONCE, 1 dose, On Sun05/27/14 at 0245, Routine Given 05/27/2014 2:33 AM EDT 1 mg LORazepam (ATIVAN) tablet 1 mg 1 mg, Oral, ONCE, 1 dose, On Sun05/27/14 at 1930, Routine Given 05/27/2014 7:30 PM EDT 1 mg LORazepam (ATIVAN) tablet 1 mg 1 mg, Oral, NIGHTLY PRN, Starting on Sun05/28/14 at 1825, Until Sun05/29/14 at 1308, Anxiety, Routine Given 05/28/2014 8:09 PM EDT 1 mg losartan (COZAAR) tablet 100 mg 100 mg, Oral, DAILY, First dose on Sun05/29/14 at 1100, Until Discontinued, Routine Given 05/29/2014 10:47 AM EDT 100 mg magnesium oxide (MAG-OX) tablet 400 mg 400 mg, Oral, 2 TIMES DAILY, 2 doses, First dose on Sun05/27/14 at 1000, Last dose on Sun05/27/14 at 2100, Routine Given 05/27/2014 8:29 PM EDT 400 mg Given 05/27/2014 10:23 AM EDT 400 mg magnesium oxide (MAG-OX) tablet 400 mg 400 mg, Oral, ONCE, 1 dose, On Sun05/29/14 at 1200, Routine Given 05/29/2014 10:47 AM EDT 400 mg midazolam (PF) (VERSED) 1 mg/mL injection 0.5-2 mg 0.5-2 mg, Intravenous, EVERY 1 MIN PRN, Starting on Sun05/26/14 at 0608, Until Sun05/26/14 at 0822, Anxiety, for epidural placement only, Day of Surgery (Day of Procedure), Routine Given 05/26/2014 7:09 AM EDT 1 mg Given 05/26/2014 7:04 AM EDT 1 mg Given 05/26/2014 6:55 AM EDT 1 mg oxyCODONE (ROXICODONE) immediate release tablet 5-10 mg 5-10 mg, Oral, EVERY 3 HOURS PRN, Starting on Sun05/27/14 at 1103, Until Sun05/28/14 at 0648, Pain, Routine Given 05/27/2014 11:00 PM EDT 5 mg Given 05/27/2014 6:20 PM EDT 5 mg Given 05/27/2014 2:20 PM EDT 5 mg oxyCODONE (ROXICODONE) immediate release tablet 5-15 mg 5-15 mg, Oral, EVERY 3 HOURS PRN, Starting on Sun05/28/14 at 0648, Until Sun05/29/14 at 1308, Pain, Routine Given 05/29/2014 9:10 AM EDT 10 mg Given 05/28/2014 9:16 PM EDT 10 mg Given 05/28/2014 5:54 PM EDT 5 mg potassium chloride (K-DUR/KLOR-CON) extended release tablet 40 mEq 40 mEq, Oral, ONCE, 1 dose, On Sun05/29/14 at 1000, 20 mEq tablet may be dissolved in water for administration, Routine Given 05/29/2014 10:47 AM EDT 40 mEq prednisoLONE tablet 10 mg 10 mg, Oral, DAILY, First dose on Sun05/27/14 at 0900, Until Discontinued Given 05/29/2014 9:10 AM EDT 10 mg Given 05/28/2014 9:07 AM EDT 10 mg Given 05/27/2014 9:06 AM EDT 10 mg senna-docusate (PERICOLACE) 8.6-50 mg per tablet 1-4 tablet 1-4 tablet, Oral, 2 TIMES DAILY, First dose on Sun05/26/14 at 2100, Until Discontinued, Start with 1 tablet or liquid equivalent orally twice daily and titrate up to achieve: 1. One bowel movement at least every 48 hours, AND 2. Without straining, Routine Given 05/29/2014 9:18 AM EDT 1 tablet Given 05/28/2014 8:09 PM EDT 2 tablets Given 05/28/2014 9:07 AM EDT 1 tablet sodium chloride 0.9 % flush 5 mL 5 mL, Intravenous, EVERY 12 HOURS, First dose on Sun05/26/14 at 0630, Until Discontinued, Day of Surgery (Day of Procedure), Routine Given 05/26/2014 12:57 PM EDT 5 mLs sodium chloride 0.9 % flush 5 mL 5 mL, Intravenous, EVERY 12 HOURS, First dose on Sun05/26/14 at 1700, Until Discontinued, Routine Given 05/29/2014 5:21 AM EDT 5 mLs Given 05/28/2014 5:48 PM EDT 10 mLs Given 05/28/2014 5:52 AM EDT 5 mLs documented in this encounter Active and Recently Administered Medications Times are shown in EDT. Scheduled Medication Order 05/27/2014 05/28/2014 05/29/2014 acetaminophen (OFIRMEV) injection 1,000 mg (COMPLETED) 1,000 mg, Intravenous, at 400 mL/hr, Administer over 15 Minutes, EVERY 6 HOURS SCHEDULED, 4 doses, First dose on Sun05/26/14 at 1300, Last dose on Sun05/27/14 at 0600, Maximum dose of acetaminophen is 4000 mg from all sources in 24 hours., Routine, Is the indication for perioperative pain? Yes, Are alternative routes (po or pr) not appropriate in this patient? Yes 06 (Given - Provider: Jazzmine Cornejo RN) acetaminophen (TYLENOL) tablet 650 mg (CANCELED)(Linked Group 1) 650 mg, Oral, EVERY 6 HOURS, First dose (after last modification) on Sun05/27/14 at 1200, Until Discontinued, Maximum dose of acetaminophen is 4000 mg from all sources in 24 hours., Routine 1215 (Given - Provider: Elena Blanton RN)1820 (Given - Provider: Elena Blanton RN)2334 (Given - Provider: Jazzmine Cornejo RN) 0552 (Given - Provider: Jazzmine Cornejo RN)1218 (Given - Provider: Isael Soto RN)1748 (Given - Provider: Isael Soto RN)2328 (Given - Provider: Jazzmine Cornejo RN) 0520 (Given - Provider: Jazzmine Cornejo RN) DULoxetine (CYMBALTA) capsule 60 mg (CANCELED) 60 mg, Oral, DAILY, First dose on Sun05/27/14 at 0900, Until Discontinued, Routine 0906 (Given - Provider: Elena Blanton RN) 0907 (Given - Provider: Isael Soto RN) 0910 (Given - Provider: Isael Soto RN) enoxaparin (LOVENOX) injection 40 mg (CANCELED) 40 mg, Subcutaneous, DAILY, First dose on Sun05/27/14 at 0900, Until Discontinued, Routine 0907 (Given - Provider: Elena Blanton RN) enoxaparin (LOVENOX) injection 40 mg (CANCELED) 40 mg, Subcutaneous, EVERY 24 HOURS SCHEDULED (Daily), First dose on Sun05/28/14 at 1000, Until Discontinued, Routine 1123 (Given - Provider: Isael Soto RN) 0910 (Given - Provider: Isael Soto RN) hydrochlorothiazide (HYDRODIURIL) tablet 25 mg (CANCELED) 25 mg, Oral, DAILY, First dose on Sun05/29/14 at 1100, Until Discontinued, Routine 1047 (Given - Provider: Isael Soto RN) ibuprofen (ADVIL;MOTRIN) tablet 600 mg(Linked Group 2) 600 mg, Oral, EVERY 6 HOURS SCHEDULED, First dose on Sun05/27/14 at 1200, Until Discontinued, - Begin after ketorolac discontinued. , Routine 1215 (Given - Provider: Elena Blanton RN)1820 (Given - Provider: Elena Blanton RN)2334 (Given - Provider: Jazzmine Cornejo RN) 0552 (Given - Provider: Jazzmnie Cornejo RN)1219 (Given - Provider: Isael Soto RN)1748 (Given - Provider: Isael Soto RN)2328 (Given - Provider: Jazzmine Cornejo RN) 0520 (Given - Provider: Jazzmine Cornejo RN) ketorolac (TORADOL) injection 15 mg (COMPLETED)(Linked Group 2) 15 mg, Intravenous, EVERY 6 HOURS SCHEDULED, 4 doses, First dose on Sun05/26/14 at 1300, Last dose on Sun05/27/14 at 0600, Routine 0629 (Given - Provider: Jazzmine Cornejo RN) levothyroxine (SYNTHROID) tablet 125 mcg (CANCELED) 125 mcg, Oral, DAILY, First dose on Sun05/26/14 at 1700, Until Discontinued, Routine 0906 (Given - Provider: Elena Blanton RN) levothyroxine (SYNTHROID) tablet 125 mcg (CANCELED) 125 mcg, Oral, EVERY MORNING, First dose (after last modification) on Sun05/28/14 at 0600, Until Discontinued, Routine 0600 (Given - Provider: Jazzmine Cornejo RN) levothyroxine (SYNTHROID) tablet 150 mcg (CANCELED)(Linked Group 3) 150 mcg, Oral, USER SPECIFIED (Once per day on Sun), First dose on Sun05/29/14 at 0600, Until Discontinued, 5 days/week-- Sunday through Sunday, Routine 0520 (Given - Provider: Jazzmine Cornejo RN) LORazepam (ATIVAN) tablet 1 mg (COMPLETED) 1 mg, Oral, ONCE, 1 dose, On Sun05/27/14 at 0245, Routine 0233 (Given - Provider: Jazzmine Cornejo RN) LORazepam (ATIVAN) tablet 1 mg (COMPLETED) 1 mg, Oral, ONCE, 1 dose, On Sun05/27/14 at 1930, Routine 1930 (Given - Provider: Elena Blanton RN) losartan (COZAAR) tablet 100 mg (CANCELED) 100 mg, Oral, DAILY, First dose on Sun05/29/14 at 1100, Until Discontinued, Routine 104 (Given - Provider: Isael Soto RN) magnesium oxide (MAG-OX) tablet 400 mg (COMPLETED) 400 mg, Oral, 2 TIMES DAILY, 2 doses, First dose on Sun05/27/14 at 1000, Last dose on Sun05/27/14 at 2100, Routine 102 (Given - Provider: Elena Blanton RN)2028 (Given - Provider: Jazzmine Cornejo RN) magnesium oxide (MAG-OX) tablet 400 mg (COMPLETED) 400 mg, Oral, ONCE, 1 dose, On Sun05/29/14 at 1200, Routine 104 (Given - Provider: Isael Soto RN)1200 (Due) potassium chloride (K-DUR/KLOR-CON) extended release tablet 40 mEq (COMPLETED) 40 mEq, Oral, ONCE, 1 dose, On Sun05/29/14 at 1000, 20 mEq tablet may be dissolved in water for administration, Routine 1047 (Given - Provider: Isael Soto RN) prednisoLONE tablet 10 mg (CANCELED) 10 mg, Oral, DAILY, First dose on Sun05/27/14 at 0900, Until Discontinued 905 (Given - Provider: Elena Blanton RN) 906 (Given - Provider: Isael Soto RN) 909 (Given - Provider: Isael Soto RN) senna-docusate (PERICOLACE) 8.6-50 mg per tablet 1-4 tablet 1-4 tablet, Oral, 2 TIMES DAILY, First dose on Sun05/26/14 at 2100, Until Discontinued, Start with 1 tablet or liquid equivalent orally twice daily and titrate up to achieve: 1. One bowel movement at least every 48 hours, AND 2. Without straining, Routine 905 (Given - Provider: Elena Blanton RN)2028 (Given - Provider: Jazzmine Cornejo RN) 09 (Given - Provider: Isael Soto, RN)2008 (Given - Provider: Jazzmine Cornejo RN) 09 (Given - Provider: Isael Soto RN) sodium chloride 0.9 % flush 5 mL (CANCELED) 5 mL, Intravenous, EVERY 12 HOURS, First dose on Sun05/26/14 at 1700, Until Discontinued, Routine 0417 (Given - Provider: Jazzmine Cornejo RN)1700 (Given - Provider: Elena Blanton RN) 0552 (Given - Provider: Jazzmine Cornejo RN)1748 (Given - Provider: Isael Soto RN) 0521 (Given - Provider: Jazzmine Cornejo RN) Continuous Medication Order 05/27/2014 05/28/2014 05/29/2014 BUpivacaine 0.125% in NS (MARCAINE) (1.25 mg/mL) (1/8%) neuraxial (CANCELED) 5 mL/hr, Epidural, CONTINUOUS, Starting on Sun05/26/14 at 1445, Until Margarita 05/28/14 at 0650, Maximum rate for continuous infusion 14 mL per hour Maximum total epidural rate (continuous and PCEA bolus) is 25 mL per hour, Routine, Patient Controlled Epidural Analgesia (PCEA): 0 mL, PCEA Frequency: None 0630 (Rate/Dose Verify - Provider: Jazzmine Cornejo RN)0903 (Rate/Dose Verify - Provider: Elena Blanton RN)1901 (Stopped - Provider: Elena Blanton RN - Comment: Epidural disconnected) HYDROmorphone (DILAUDID) 1 mg/mL CRTTS 30 mL (CANCELED) Intravenous, CRTTS ONLY, Starting on Sun05/26/14 at 1300, Until Sun05/27/14 at 1705, Recovery (Recovery-Hospital Unit) 0903 (Rate/Dose Verify - Provider: Elena Blanton RN)1732 (Stopped - Provider: Elena Blanton RN) 0909 (Stopped - Provider: Isael Soto RN) HYDROmorphone (DILAUDID) 1 mg/mL CRTTS 30 mL (CANCELED) Intravenous, CRTTS ONLY, Starting on Sun05/27/14 at 1930, Until Sun05/28/14 at 0648 1931 (New Syringe/Cartridge - Provider: Elena Blanton RN) lactated ringers infusion 1,000 mL (CANCELED) 1,000 mL, at 100 mL/hr, Intravenous, CONTINUOUS, Starting on Sun05/26/14 at 1300, Until Sun05/27/14 at 0922 0417 (New Bag - Provider: Jazzmine Cornejo RN)0903 (Rate/Dose Verify - Provider: Elena Blanton RN)0933 (Stopped - Provider: Elena Blanton RN) PRN Medication Order 05/27/2014 05/28/2014 05/29/2014 LORazepam (ATIVAN) tablet 1 mg (CANCELED) 1 mg, Oral, NIGHTLY PRN, Starting on Sun05/28/14 at 1825, Until Sun05/29/14 at 1308, Anxiety, Routine 2009 (Given - Provider: Jazzmine Cornejo, JOSEPH) oxyCODONE (ROXICODONE) immediate release tablet 5-10 mg (CANCELED) 5-10 mg, Oral, EVERY 3 HOURS PRN, Starting on Sun05/27/14 at 1103, Until Sun05/28/14 at 0648, Pain, Routine 1420 (Given - Provider: Elena Blanton RN)1820 (Given - Provider: Elena Blanton RN)2300 (Given - Provider: Jazzmine Cornejo RN) oxyCODONE (ROXICODONE) immediate release tablet 5-15 mg 5-15 mg, Oral, EVERY 3 HOURS PRN, Starting on Margarita 05/28/14 at 0648, Until Sun05/29/14 at 1308, Pain, Routine 1315 (Given - Provider: Isael Soto RN)1754 (Given - Provider: Isael Soto RN)6032 (Given - Provider: Jazzmine Cornejo RN) 0910 (Given - Provider: Isael Soto RN) Linked Groups Order Group 1: acetaminophen (TYLENOL) tablet 650 mg (CANCELED)Jump to med 650 mg, Oral, EVERY 6 HOURS, First dose (after last modification) on Sun05/27/14 at 1200, Until Discontinued, Maximum dose of acetaminophen is 4000 mg from all sources in 24 hours., Routine Group 2: ketorolac (TORADOL) injection 15 mg (COMPLETED)Jump to med 15 mg, Intravenous, EVERY 6 HOURS SCHEDULED, 4 doses, First dose on Sun05/26/14 at 1300, Last dose on Sun05/27/14 at 0600, Routine Followed by ibuprofen (ADVIL;MOTRIN) tablet 600 mgJump to med 600 mg, Oral, EVERY 6 HOURS SCHEDULED, First dose on Sun05/27/14 at 1200, Until Discontinued, - Begin after ketorolac discontinued. , Routine Group 3: levothyroxine (SYNTHROID) tablet 150 mcg (CANCELED)Jump to med 150 mcg, Oral, USER SPECIFIED (Once per day on Sun), First dose on Sun05/29/14 at 0600, Until Discontinued, 5 days/week-- Sunday through Sunday, Routine And levothyroxine (SYNTHROID) tablet 125 mcg (CANCELED) 125 mcg, Oral, TWICE WEEKLY (Once per day on Sun Sat), First dose on 05/30/14 at 0600, Until Discontinued, Sunday and Sunday, Routine documented in this encounter Care Teams Electromechanical Engineer Relationship Specialty Start Date End Date Bell Pereira MD [address] [place] [address] PCP - General 06/21/10 06/27/16 documented as of this encounter
--- OUTSIDE RECORDS SUMMARY | 2024-03-27 20:54 | XMS_ITS | Encounter Summary ---
Author Organization [facility] Address [facility] [place] [address] Care Team Providers Care Plate Mounter Name Role Phone Bell Navarrete MD Primary Care Provider [phone] Reason for Visit * Reason Comments GI Problem Encounter Details Date Type Department Care Team (Late st Contact Info) Description 10/27/2015 3:00 PM EDT Office [place] [address] Isael Christianson MD [facility] [place] [address] Crohn's disease of large intestine with other complication Social History Tobacco Use Types Packs/Day Years [...] Sign Reading Time Taken Comments Blood Pressure 153/69 10/27/2015 2:51 PM EDT Pulse 85 10/27/2015 2:51 PM EDT Temperature - - Respiratory Rate - - Oxygen Saturation - - Inhaled Oxygen Concentration - - Weight 95.4 kg (210 lb 6.4 oz) 10/27/2015 2:51 P M EDT Height 158.8 cm (5' 2.5) 10/27/2015 2:51 PM EDT Body Mass Index 37.87 10/27/2015 2:51 PM EDT documented in this encounter Progress Notes * Isael Christianson MD - 10/27/2015 3:40 PM EDT PROBLEMS: 1. Crohn's colitis, first diagnosed at age 21. -Roulette initially to be ulcerative colitis, was switched to Crohn's colitis 2. Colon cancer [id number] lesion. in the context of a long history of Crohn's colitis. -S/P total abdominal colectomy with abdominal abdomnoperineal resection. - Completion proctectomy on 01/04/06 complicated by postop wound infection. 3. High blood pressure 4. Thyromegaly 5. Status post fistulous surgery in l978. 6. Seronegative spondyloarthropathy. 7.Endometrial cancer, partial hysterectomy 8. Thyroid Ca, s/p thyroidectomy 9. S/p CCY 10. BERNAL, liver bx 2008 severe steatohepatitis with grade 1-2 fibrosis HPI: I am seeing Page Katz for the first time in 10 years. I diagnosed her with colon cancer in the context of Crohn's colitis 10 years ago. She underwent a total abdominal colectomy with abdominal peritoneal resection and a completion proctectomy. There was a complicated postop wound infection. I have not seen in her in followup in years. She has done very well from this standpoint. She has also had a liver biopsy done at the time of her cholecystectomy, which revealed severe steatohepatitis with grade 1 to 2 fibrosis in 2008. The reason for seeing me today is that this past winter she was admitted to the hospital with high output from her stoma. This lasted for a few days. It was felt to be viral in origin. It resolved and she has not had any recurrence. Her stoma is working very well. She also has arthralgias and large joint pain felt to be PMR and has been on prednisone for months now, currently at 4 mg. She queries whether she could have active Crohn's disease. There has been no real change in her ostomy output other than that one episode. Otherwise, things have been going well. Stoma is functioning well. No hernias or issues there. She has no symptoms of chronic liver disease. Physical Exam: She looks well, in no acute distress. Lungs are clear to auscultation. Heart regular rhythm. Abdomen soft, nondistended, nontender. Well-functioning ileostomy in the right periumbilical area. Extremities without edema, cyanosis or clubbing. Impression: 1. Crohn's disease. History of Crohn's colitis with colon cancer, has had a total abdominal colectomy. I do not believe that she has had history of small bowel involved with her Crohn's making this unlikely. However, given her ongoing joint complaints to exclude ongoing Crohn's, we will perform an ileoscopy. 2. BERNAL. We will obtain a FibroScan to assess for progression of disease. I will try and get both of these on the same day. documented in this encounter Plan of Treatment Upcoming Encounters Date Type Department Care Team (Late st Contact Info) Description 05/15/2024 1:00 PM EDT TH Visit (TeleHealth) [place] [address] Pasha Wood MD [facility] [place] [address] documented as of this encounter Visit Diagnoses Diagnosis Crohn's disease of large intestine with other complication documented in this encounter Care Teams Plate Mounter Relationship Specialty Start Date End Date Bell Navarrete MD [address] [place] [address] PCP - General 06/21/10 06/27/16 documented as of this encounter
--- OUTSIDE RECORDS SUMMARY | 2024-03-27 20:54 | XMS_ITS | Encounter Summary ---
Author Organization [facility] [place] [address] Care Team Providers Care Technical Intern Name Role Phone Nathalie Bain MD Primary Care Provider Reason for Visit * Reason Comments Skin Check Encounter Details Date Type Department Care Team (Late st Contact Info) Description 03/27/2018 10:30 AM EDT Office Visit Dermatology at [facility] [address] [place] [address] Machelle Mckeon MD [facility] [place] [address] SK (seborrheic keratosis); Seborrheic keratosis, inflamed; Pruritus Social History Tobacco Use Types Packs/Day Years Used Date Smoking Tobacco: Never Smokeless Tobacco: Never Alcohol Use Standard Drinks/Week Comments No 0 (1 standard drink = 0.6 oz pur e alcohol) Sex and Gender Information Value Date Recorded Sex Assigned at Not on file Gender Identity Not on file Sexual Orientation Not on file documented as of this encounter Progress Notes * Machelle Mckeon MD - 03/27/2018 10:30 AM EDT DERMATOLOGY ESTABLISHED PATIENT CLINIC NOTE DATE OF SERVICE: 03/27/2018 Page Alesia Sterling : 1950 PROVIDER: Machelle Mckeon MD PATIENT PREFERENCES: -prefers to be called: Pat -ok to communicate detailed result information by: Mail?: Y MyDH?: N Voicemail?: Y and what #: home Chief Complaint Patient presents with ??? Skin Check HPI Page Katz is a 67 y.o. year old female. New patient to me?yes To DH?no Reports the following: - located on back present for 1 year. Change in size? no Has any medication or intervention been tried? cortisone cream Associated with: itch? Has pt had anything like this before? No - located on bilateral arms present for years. Change in size? no Has any medication or intervention been tried? none Associated with: itch/bleeding/pain no? Has pt had anything like this before? no Other info: She has itchy arms that comes and goes, not treating. Other history: none Skin Hx: Skin Cancer Type: no Irritant contact eczema Actinic keratosis FHX: -skin cancer?: Y What type?: unknown Who?: Sister -eczema?: no -psoriasis?: no -acne?: no -rosacea?: no SH: ETOH?: no TOB?: never Occupation?: retired Current Outpatient Prescriptions on File Prior to Visit Medication Sig Dispense Refill ??? folic acid (FOLVITE) 1 mg Tablet Take 1 mg by mouth daily. ??? losartan (COZAAR) 100 mg Tablet Take 100 mg by mouth daily. ??? predniSONE (DELTASONE) 10 mg Tablet Take 7 mg by mouth daily. ??? methotrexate 2.5 [...] mouth daily. 90 tablet 3 ??? aspirin ([employer] ASPIRIN) 81 mg chewable tablet ??? Qjcgdhnofztjx-Yh-Onwk-Minerals (ONE-A-DAY WOMENS FORMULA) 27-0.4 mg Tab No current facility-administered medications on file prior to visit. Allergies Allergen Reactions ??? Other [Unclassified Drug] Other (See Comments) Pain Patch(drug unknown) Fentanyl- confused hallucinations Review of Systems: Feels well, no fatigue, no weight loss, no other skin concerns Sunscreen Use?: yes EXAM General: AAOx3 Well-nourished adult in no apparent distress Skin: A focal examination of the following areas was performed: DIAGNOSIS/SKIN FINDINGS/ASSESSMENT/PLAN: # Inflamed seborrheic keratosis - 5 mm keratotic brown papule right upper back and left forearm Procedure Note: Procedure: Destruction of lesion(s) with cryotherapy. Number: 2 Location: as above Discussed procedure and expectations including risks (including risk of hypopigmentation) and benefits. Verbal consent obtained. Frozen with LN2, 15-30 second thaw time, TWICE. There were no complications; the patient tolerated the procedure well. Post-procedure expectations and wound care were reviewed. # Seborrheic Keratosis - bilateral arms - Etiology discussed - Patient reassured lesions are benign in nature - Explained that these are hereditary and adult-acquired. - Can develop anywhere on the body except for palms of hands and soles of feet - discussed cosmetic options. - Advised patient to call if areas become inflamed or irritated. # Brachioradial pruritus: excoriations and erythema on forearms - Discussed possible Etiologies including sun damage and neurogenic due to spinal compression with age - Discussed the need for good sun protection. Pt to f/u if worsens. Avoid scratching. No medicationat this point but consider topical steroid if it persists. FOLLOW UP WHEN: as scheduled with Rachelle Santiago PA-C FOR WHAT: skin exam LENGTH OF VISIT: 15 NUMBING?: no PICTURES NEEDED? no I am documenting this encounter acting as the scribe for and in the presence of Dr.Roberta Mike LAKE LPN I performed the above scribed service and agree with the accuracy of the documentation in this encounter. Machelle Mckeon MD Section of Dermatology [facility] Page Katz 03/27/2018 [id number] documented in this encounter Plan of Treatment Upcoming Encounters Date Type Department Care Team (Late st Contact Info) Description 05/15/2024 1:00 PM EDT TH Visit (TeleHealth) [place] [address] Pasha Wood MD [facility] [place] [address] documented as of this encounter Visit Diagnoses Diagnosis SK (seborrheic keratosis) Other seborrheic keratosis Seborrheic keratosis, inflamed Inflamed seborrheic keratosis Pruritus Unspecified pruritic disorder documented in this encounter Care Teams Technical Intern Relationship Specialty Start Date End Date Nathalie Bain MD [address] [place] [address] PCP - General Family Medicine 06/28/16 12/20/21 documented as of this encounter
--- OUTSIDE RECORDS SUMMARY | 2024-03-27 20:54 | XMS_ITS | Encounter Summary ---
Author Organization [facility] [place] [address] Care Team Providers Care Word Processing Operator Name Role Phone Nathalie Bain MD Primary Care Provider Reason for Visit * Reason Comments Skin Check hx of Aks Encounter Details Date Type Department Care Team (Late st Contact Info) Description 12/19/2018 11:00 AM EDT Office Visit Dermatology at [address] [address] Machelle Mckeon MD [facility] DR [facility]OH[facility] [place] [address] Jo-Ann Santiago PA [facility] DR [address] [place] [address] Seborrheic keratosis, inflamed; Stucco keratoses; Lentigines; Inflamed seborrheic keratosis Social History Tobacco Use Types Packs/Day Years Used Date Smoking Tobacco: Never Smokeless Tobacco: Never Alcohol Use Standard Drinks/Week Comments No 0 (1 standard drink = 0.6 oz pur e alcohol) Sex and Gender Information Value Date Recorded Sex Assigned at Not on file Gender Identity Not on file Sexual Orientation Not on file documented as of this encounter Progress Notes * Jo-Ann Santiago PA - 12/19/2018 11:00 AM EDT DERMATOLOGY - ESTABLISHED PATIENT FOLLOW-UP Date of service: 12/19/2018 Page Katz : 1950, 68 y.o. CC: Chief Complaint Patient presents with ??? Skin Check hx of Aks HPI: Page Katz is a 68 y.o. female last seen by on 03/27/2018. Ms. Katz returns today for a full skin exam. She has an itchy spot on her left taoist area that sometimes gets irritated. Relevant Skin History: -Okay to leave detailed voice message with results? Yes Warts SKS AKS Clavus Family History: Melanoma: None Social History: - Medications: Current Outpatient Medications Medication Sig Dispense Refill ??? folic acid (FOLVITE) 1 mg Tablet Take 1 mg by mouth daily. ??? losartan (COZAAR) 100 mg Tablet Take 100 mg by mouth daily. ??? predniSONE (DELTASONE) 10 mg Tablet Take 4 mg by mouth daily. ??? methotrexate 2.5 [...] daily. 90 tablet 3 ??? aspirin (SHEL[employer] CHILDREN[employer]ara[employer] ASPIRIN) 81 mg chewable tablet ??? Pxdybezjztluw-Aq-Prps-Minerals (ONE-A-DAY WOMENS FORMULA) 27-0.4 mg Tab No current facility-administered medications for this visit. Allergies: Allergies Allergen Reactions ??? Other [Unclassified Drug] Other (See Comments) Pain Patch(drug unknown) Fentanyl- confused hallucinations Review of Systems: - General: Feels well. - Skin: No other skin concerns. Examination: - Constitutional: Patient was alert, well-appearing and in no noticeable distress. - Skin: Skin examination of the scalp, face, ears, neck, back, chest, abdomen, right and left upperextremities, right and left lower extremities, hands, feet, and buttocks was normal with the exception of the findings listed below. Diagnosis/Skin findings/Assessment/Plan: 1. Seborrheic keratoses - Scattered, face, trunk and extremities. Multiple 0.4-1 cm, brown-black papules/plaques with waxy stuck on appearance - Patient reassured of benign nature. - Advised patient to call if areas become inflamed or irritated. - Okay to use OTC cortisone cream on small inflamed lesions on the back if needed. 2. Stucco Keratoses - Bilateral lower legs & feet (nonsymptomatic) -Discussed benign nature of lesion and provided reassurance -No treatment necessary at this time -Observe skin for change in color, size or character. Call if such occur 3. Lentigines Scattered 0.3-0.6cm light-brown evenly pigmented, well-demarcated macule - Discussed benign nature of lesions and provided reassurance. No treatment necessary at this time. - Discussed nature of sun-induced photo-aging and skin cancers. Advised sun avoidance, protective clothing, and use of SPF 30+ broad-spectrum sunscreens. - Instructed patient to observe closely for skin damage/changes and call if such occur. - Discussed cosmetic removal will refer to . 4. Inflamed Seborrheic Keratosis- Left lateral cheek x1 - infalmed 3 mm waxy papule Discussed benign nature of lesion and provided reassurance. However, due to irritation present on today's exam and history of symptoms, discussed removal with liquid nitrogen today in the office. Discussed risk of hypopigmentation and discomfort, discussed alternatives, and reviewed wound care. Thepatient agreed to the procedure after discussing risks/benefits/alternatives. Procedure Note: Procedure: Destruction of lesion(s) with cryotherapy. Number: 1 Location: as above Discussed procedure and expectations including risks (including risk of hypopigmentation) and benefits. Verbal consent obtained. Frozen with LN2, 15-30 second thaw time, TWICE. There were no complications; the patient tolerated the procedure well. Post-procedure expectations and wound care were reviewed. [facility] [address] RTC: 1 year for FSE, sooner if needed. Routed for scheduling. Note initiated by Lexie Quinn CMA. I have performed the documentation for this encounter in the presence of and acting as a scribmercedes Amado (Rachelle) CALLIE Santiago. I performed the services which were documented by the scribe, and I agree with the accuracy of the documentation in this encounter. Jo-Ann Santiago PA-C Reviewed and signed by Jo-Ann Santiago PA-C [facility] Patient seen in conjunction with staff financial services education consultant: Machelle Mckeon MD Section of Dermatology [facility] * Machelle Mckeon MD - 12/19/2018 11:00 AM EDT Patient seen and examined with Rachelle Santiago PA-C. We reviewed the patient's history. I personallyexamined the patient. We discussed the assessment and plan. Benign skin exam. Irritated quinton ker on left lateral canthus. LN today Patient seen in conjunction with Jo-Ann Santiago PA-C (Bri) Signed by: Machelle Mckeon MD Section of Dermatology [facility] documented in this encounter Plan of Treatment Upcoming Encounters Date Type Department Care Team (Late st Contact Info) Description 05/15/2024 1:00 PM EDT TH Visit (TeleHealth) [place] [address] Pasha Wood MD [facility] [place] [address] documented as of this encounter Visit Diagnoses Diagnosis Seborrheic keratosis, inflamed Inflamed seborrheic keratosis Stucco keratoses Lentigines Other dyschromia Inflamed seborrheic keratosis documented in this encounter Care Teams Word Processing Operator Relationship Specialty Start Date End Date Nathalie Bain MD [address] [place] [address] PCP - General Family Medicine 06/28/16 12/20/21 documented as of this encounter
--- OUTSIDE RECORDS SUMMARY | 2024-03-27 20:54 | XMS_ITS | Encounter Summary ---
[place] [address] Care Team Providers Care Microwave Radio Technician Name Role Phone Nathalie Bain MD Primary Care Provider Reason for Visit * Reason Onset Date Comments Medication Problem 03/22/2021 Encounter Details Date Type Department Care Team (Late st Contact Info) Description 03/22/2021 Telephone [place] [address] Lucian Mace, cement mixer Problem Social History Tobacco Use Types Packs/Day Years [...] Telephone Encounter - Rossy Lerner - 03/24/2021 3:11 PM EDT Patient called back to book a follow up, however requested to know in regards to biotin, supplementshe was told to take, she isnt sure what dose to take. When she went to buy it there was a 5000 sheila 10,000 option. She requests a nurse call her back and let her know the correct one to take * Telephone Encounter - Lucian Mace RN - 03/22/2021 4:26 PM EDT Page calls to discuss her medications. States she wants to come off the Methotrexate. RTC and Page states that she is having undesirable side effects to the MTX after years of taking. Reports she is having severe thinning of her hair that has been occurring for some time now. We discussed increasing Folic Acid and she is open to giving it a try. Will ask Dr. Wood in regards to dosing. Reports she is also having increased nervousness, Concentration issues. Feels depressed a lot. Denies that she is suicidal or Homicidal. Takes Duloxetine 60 mg daily for this. I advised Page to discuss medication changes or increases with her PCP if she is still feeling the above symptoms. Page reports that she gets these episodes of itching every night. Denies any rash but states itkeeps her awake at night and it is irritating. I will as Dr. Wood if he feels this may be related to the Methotrexate. Pasha Wood MD sent to Lucian Mace RN Caller: Unspecified (Yesterday, 11:02 AM) Thank you for the information. ??I recommend increasing folic acid to 2 mg daily and starting supplement with biotin. I do not think the itching is due to MTX but I would like to make sure her methotrexate monitoring labs are up to date. Pasha Called Page and LM asking her to RTC to nurse. I spoke with Page this morning and she will increase Folic acid to 2 mg daily and parts picker Biotin supplement OTC today. Page will have labs done today or tomorrow. Page states she will try this for a month and if no help she wants to stop the Methotrexate. Page also asks to be called to schedule an appointment. Rossy Lerner sent to Lucian Mace RN; Pasha Wood MD Caller: Unspecified (2 days ago, 11:02 AM) VM left with pt to cb and book appointment. - Shana documented in this encounter Plan of Treatment Upcoming Encounters Date Type Department Care Team (Late st Contact Info) Description 05/15/2024 1:00 PM EDT TH Visit (TeleHealth) [place] [address] Pasha Wood MD [facility] [place] [address] documented as of this encounter Visit Diagnoses Not on filedocumented in this encounter Care Teams Microwave Radio Technician Relationship Specialty Start Date End Date Nathalie Bain MD [address] [place] [address] PCP - General Family Medicine 06/28/16 12/20/21 documented as of this encounter
--- OUTSIDE RECORDS SUMMARY | 2024-03-27 20:54 | XMS_ITS | Encounter Summary ---
Author Organization [facility] [place] [address] Care Team Providers Care Airborne And Air Delivery Specialist Name Role Phone Nathalie Bain MD Primary Care Provider Encounter Details Date Type Department Care Team (Latest Contact Info) Description 09/09/2020 10:30 AM EST TH Visit (TeleHealth) [place] [address] [facility] [place] [place] [address] Seronegative rheumatoid arthritis (Primary Dx); NAFLD (nonalcoholic fatty liver disease) Social History [...] Progress Notes * Pasha Wood MD - 09/09/2020 10:30 AM EST This is a telemedicine visit that was performed with the originating site at that patients home address (please see electronic health record for applicable address) and the distant site at my [facility] office. Verbal consent to participate in telephone visit was obtained by Pasha Wood MD or the lataingassistant as documented in their note. This visit occurred during the Coronavirus (COVID-19) PublicHealth Emergency. I discussed with the patient the [...] Chief rheumatologic issue: Page Katz is a 69 y.o. female returns today for f/u of seronegative rheumatoid arthritis. HPI: This is a scheduled telemedicine follow up appointment. ?I initially thought it [...] by Dr. Dharmesh Cummings who was a payroll lead emeritus at [facility]. He confirmed the diagnosis of polymyalgia rheumatica [...] Stiffness in the MCPs especially. 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 Has other aches and pains yet [...] June. Also saw Dr. Pasha Govea at [facility] podiatry and had nailbed surgery on both feet in the great toes 4 onychocryptosis. Review of Systems: Had PA for Remicade yet did not start this. She is concerned about the risk of developing malignancy. She has also been concerned given the pandemic She previously used Remicade for inflammatory bowel disease. Very busy now that her son is living in [place]. She has a full house with her grandchildren. HEENT: No mouth sores. No facial rash. Hydroxychloroquine stopped due to hair thinning Overall joints are better on 5 mg of prednisone. No chest pain or palpitations. No rashes. No respiratory sxs. No GI sxs. Allergies include: Atorvastatin and [...] 2 days a week ??? aspirin (SHELTON Floored ASPIRIN) 81 mg chewable tablet ??? acetaminophen (TYLENOL) 325 mg Tablet Take 650 mg by mouth every 4 hours as needed for Pain. ??? levothyroxine (SYNTHROID) 150 mcg tablet Take 1 tablet by mouth daily. (Patient not taking: Reported on 09/09/2020) 90 tablet 3 ??? Tmoyopdjzrwvk-Rl-Mxnu-Minerals (ONE-A-DAY WOMENS FORMULA) 27-0.4 mg Tab (Patient not taking: Nosig reported) Allergies Allergen Reactions ??? Other [Unclassified Drug] Other (See Comments) Pain Patch(drug unknown) Fentanyl- confused hallucinations Physical Exam: There were no vitals taken for this visit. Telephone visit Alert. Oriented. No distress. Appropriate speech thought and content. ? Labs: [...] in 10/10/2012. Assessment: Page Katz is a 69 y.o. female who returns in follow up of seronegative rheumatoid arthritis 1. Seronegative rheumatoid arthritis: It is difficult to establish the status of her joints with this televisit. By symptoms she is improved after increasing prednisone to 5 mg daily. She is also continuing to take methotrexate 20 mg weekly and is supplementing with folic acid 1 mg daily. She is overdue for laboratory testing. I will be setting up standing lab orders at [facility]. She plans to get these done in the next week or so to coincide with her next primary care appointment. I will be watching liver function tests very carefully given her diagnosis of nonalcoholic fatty liver disease and use of methotrexate. I had previously recommended use of a biologic DMARD as this would additionally be safer for her liver and also would most likely allow us to have her stop prednisone. 2. NAFLD (nonalcoholic fatty liver disease): As above. 3. Vitamin D deficiency She will continue her vitamin D supplementation and her multivitamin. I previously recommended increasing vitamin D intake by 1000 international units daily. Goal is 40-60 forvitamin D. I previously also recommended dietary calcium. Plan: Continue methotrexate 20 mg weekly. Methotrexate monitoring labs in 1 week at [facility]. Continue prednisone at 5 mg for the time being. Will consider decreasing to 4 mg once weather starts to get warmer documented in this encounter Plan of Treatment Upcoming Encounters Date Type Department Care Team (Late st Contact Info) Description 05/15/2024 1:00 PM EDT TH Visit (TeleHealth) [place] [address] [facility] [place] [address] documented as of this encounter Visit Diagnoses Diagnosis Seronegative rheumatoid arthritis- Primary Rheumatoid arthritis NAFLD (nonalcoholic fatty liver disease) Other chronic nonalcoholic liver disease documented in this encounter Care Teams Airborne And Air Delivery Specialist Relationship Specialty Start Date End Date Nathalie Bain MD [address] [place] [address] PCP - General Family Medicine 06/28/16 12/20/21 documented as of this encounter
--- OUTSIDE RECORDS SUMMARY | 2024-03-27 20:54 | XMS_ITS | Encounter Summary ---
[place] [address] Care Team Providers Care Organic Preparation Technician Name Role Phone Nathalie Bain MD Primary Care Provider [phone] Reason for Visit * Reason Onset Date Comments Medication Refill 09/06/2020 Encounter Details Date Type Department Care Team (Late st Contact Info) Description 09/06/2020 [place] [phone] Boom Grant RN Social History Tobacco Use Types Packs/Day [...] Telephone Encounter - Boom Grant RN - 09/06/2020 3:41 PM EST Patient calls, requests refill of Gabapentin. States takes 100 mg caps, three caps, twice daily. Pharmacy in [facility]. Pended to provider, appt on 09/09. documented in this encounter Plan of Treatment Upcoming Encounters Date Type Department Care Team (Late st Contact Info) Description 05/15/2024 1:00 PM EDT TH Visit (TeleHealth) [place] [address] Pasha Wood MD [facility] [place] [address] documented as of this encounter Visit Diagnoses Not on filedocumented in this encounter Care Teams Organic Preparation Technician Relationship Specialty Start Date End Date Nathalie Bain MD [address] [place] [address] [address] [place] [address] PCP - General Family Medicine 06/28/16 12/20/21 documented as of this encounter
--- OUTSIDE RECORDS SUMMARY | 2024-03-27 20:54 | XMS_ITS | Encounter Summary ---
Author Organization [facility] [place] [address] Care Team Providers Care Children'S Attendant Name Role Phone Bell Navarrete MD Primary Care Provider [phone] Reason for Visit * Reason Comments Establish Care complex hyperplasia w/atypia Encounter Details Date Type Department Care Team (Late st Contact Info) Description 05/13/2014 3:00 PM EDT Office Visit Gyne[place] [phone] Carmen Montana MD [facility] [place] [address] Endometrial hyperplasia (Primary Dx); Complex endometrial hyperplasia with atypia Discharge Disposition: Home Social History Tobacco Use [...] Sign Reading Time Taken Comments Blood Pressure 154/80 05/13/2014 2:55 PM EDT Pulse 96 05/13/2014 2:55 PM EDT Temperature 36.9 ??C (98.4 ??F) 05/13/2014 2:55 PM ED T Respiratory Rate 18 05/13/2014 2:55 PM EDT Oxygen Saturation 98% 05/13/2014 2:55 PM EDT Inhaled Oxygen Concentration - - Weight 108.8 kg (239 lb 13.8 oz) 05/13/2014 2:55 PM EDT Height 158.8 cm (5' 2.52) 05/13/2014 2:55 PM ED T Body Mass Index 43.14 05/13/2014 2:55 PM EDT documented in this encounter Progress Notes * Dotty Richardson - 05/13/2014 3:06 PM EDT Division of Gynecologic Oncology Avis Mays MD [facility] Carmen Montana MD [facility] [place] [address] New Outpatient Visit: Reason for visit :Page Katz is being seen in the clinic today at the request of Madison Graham Md [address] [place] [address] for the evaluation of complex atypical endometrial hyperplasia. I have reviewed the available records, interviewed and examined the patient. History of Present Illness: Page Katz is a 63 y.o. female referred for [...] steroids (prednisone 4 mg) for polymyalgia rheumatica. Review of Systems Review of Systems Constitutional: Negative for fever, chills, weight loss, malaise/fatigue and diaphoresis. HENT: Negative for hearing loss, congestion, sore throat and neck pain. Eyes: Negative for blurred vision and double vision. Respiratory: Negative for cough, hemoptysis, sputum production, shortness of breath and wheezing. Cardiovascular: Negative for chest pain and palpitations. Gastrointestinal: Negative for n/v/d. Negative for heartburn, vomiting, abdominal pain and constipation. Genitourinary: Negative for dysuria, urgency, frequency, hematuria and flank pain. Musculoskeletal: Positive for neuropathy in her feet. + joint pain in her hands. Skin: no rash/lesions Neurological: Negative for dizziness, tingling, sensory change, speech change, focal weakness, weakness and headaches. + peripheral neuropathy. Psychiatric/Behavioral: Negative for depression. Medical History: Past Medical History Diagnosis Date ??? History of colon cancer Moderately differentiated adenocarcinoma pT2 pN0 pMx ??? Crohn's disease ??? Thyroid disease Papillary carcinoma s/p total thyroidectomy; Hypothyroidism ??? Blood transfusion ??? Hypertension ??? Arthritis ??? Polymyalgia rheumatica ??? Non-alcoholic fatty liver disease Diagnosed on liver wedge biopsy at time of open cholecystectomy in 2008 ??? Depression ??? Postmenopausal bleeding 02/2014 ??? Complex endometrial hyperplasia with atypia 04/22/2014 ??? Nephrolithiasis ??? Obesity BMI 43 Surgical History: Past Surgical History Procedure Date ??? Cholecystectomy 10/22/2008 Open cholecystectomy ??? Thyroidectomy 10/13/2011 THYROIDECTOMY, TOTAL OR COMPLETE performed by RICK CARD at [facility] MAIN OR ??? Somatosensory test, any/all per. nerves, trunk or head 10/13/2011 FACIAL NERVE MONITORING, SETUP performed by RICK CARD at [facility] MAIN OR ??? Total knee arthroplasty 2006, 2010 Bilateral knee replacements ??? Percut remv kid stone, 2+ cm 06/19/2013 NEPHROLITHOTOMY, ([facility]) PERCUTANEOUS, OVER 2CM performed by Alfredito Alonzo Jr., MD at [facility] MAIN OR ??? Percut dilatn renal tract 06/19/2013 PERCUTANEOUS INTRO GUIDE WIRE TO ACCESS RENAL PELVIS,AND OR URETER, W\DILATION performed by Alfredito Alonzo Jr., MD at [facility] MAIN OR ??? Cystourethroscopy, ureter catheter 06/19/2013 CYSTO, RETROGRADE, URETEROPYELOGRAPHY performed by Alfredito Alonzo Jr., MD at [facility] MAIN OR ??? Total colectomy 01/04/2006 For Crohn's Disease and colon cancer ??? Proctectomy 01/04/2006 For Crohn's Disease and colon cancer ??? Ileostomy or jejunostomy 01/04/2006 For Crohn's Disease and colon cancer ??? Dilation and curettage of uterus 04/22/2014 Path showed complex endometrial hyperplasia w/ atypia Medications: Current Outpatient Prescriptions Medication Sig Dispense Refill ??? levothyroxine (SYNTHROID) 125 mcg Tablet Take 125 mcg by mouth. 2 days a week ??? losartan-hydrochlorothiazide (HYZAAR) 100-25 mg Tablet Take 1 tablet by mouth daily. ??? DULoxetine (CYMBALTA) 60 mg Capsule, Delayed Release(E.C.) Take 60 mg by mouth daily. ??? Calcium Carbonate-Vitamin D3 600 mg(1,500mg) -400 unit Tablet Take 1 tablet by mouth daily. ??? potassium chloride (K-DUR/KLOR-CON) 10 mEq extended release tablet Take 10 mEq by mouth 2 timesdaily. ??? meloxicam (MOBIC) 7.5 mg tablet Take 15 mg by mouth daily. ??? levothyroxine (SYNTHROID) 150 mcg tablet Take 1 tablet by mouth daily. 90 tablet 3 ??? PREDNISOLONE ORAL Take 4 mg by mouth daily. ??? aspirin (SHELTON CHILDRENS ASPIRIN) 81 mg chewable tablet ??? Hclvakjpfcopz-Es-Yryy-Minerals (ONE-A-DAY WOMENS FORMULA) 27-0.4 mg Tab Allergies: Allergies Allergen Reactions ??? Other (Unclassified Drug) Other (See Comments) Pain Patch(drug unknown) - confused hallucinations Obstetric History: Gynecologic History/Health Maintenance: Menarche at age 13. Menopause at age 50. Used OCPs for . Denies HRT use. Recent postmenopausal bleeding/spotting. Denies STDs. Has had regular Pap smear screening, reports something abnormal but denies need for colposcopy, LEEP or [facility], last pap Mar 2014 - NILM Mammograms are up to date and are wnl per the patient. Family History: Family History Problem (# of Occurrences) Relation (Name,Age of Onset) Arthritis (2) Mother, Sister Brain Tumor (1) Sister: Pituitary adenoma Cerebrovasular Accident (1) Father Diabetes (1) Paternal Grandmother Hypertension (2) Mother, Sister Myocardial Infarction (1) Father (57) Ulcerative Colitis (1) Sister Negative family history of: Ovarian Cancer, Breast Cancer, Colorectal Cancer, Uterine Cancer, Pancreatic Cancer Social History: reports that she has never smoked. She has never used smokeless tobacco. She reports that she does not drink alcohol or use illicit drugs. She is . She lives with her . 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 Physical Exam: Filed Vitals: 05/13/14 1455 BP: 154/80 Pulse: 96 Temp: 36.9 ??C (98.4 ??F) Resp: 18 Height: 158.8 cm (5' 2.52) Weight: 108.8 kg (239 lb 13.8 oz) SpO2: 98% Body mass index is 43.14 kg/(m^2). Body surface area is 2.19 meters squared. Physical Exam Gen: Pleasant. Resting comfortably in bed. NAD. Neuro: Alert and oriented. Cardiac: RRR. No murmurs, rubs, or gallops. Pulm: CTAB. No wheezes, rales, or rhonci. Abd: Obese. +BS. Soft. Non tender. No rebound or guarding. Well healed vertical midline incision. Ostomy appliance in place. Extremities: No lower extremity edema. GOG Performance Status: 0 Pertinent Radiographic/Diagnostic Results: TVUS on 03/23/2014 showed endometrial thickness of 8 mm. Impression/Plan: Page Katz is a 63 y.o. with a biopsy revealing complex atypical hyperplasia. The pathology was not reviewed here at [facility] but this was a D&C- based diagnosis. Based on these findings, I recommended surgery for definitive treatment, specifically an abdominal hysterectomy and bilateral salpi ngoophorectomy and lymph node dissection if indicated. I think the chance of needing a lymph node dissection is very low and that she would be safe to have this surgery at [facility] with Dr. Rey and that I agree that an abdominal approach would be my recommendation as well. Her expressed aninterest in proceeding with surgery at [facility] and stated that he preferred to have Pat cared for hereas all of her other surgeries have been here. After having some time to think it over, Pat decided that she would like surgery at [facility] as well. To that end, we discussed that laparoscopic surgery would not be appropriate due to her previous surgery and likely adhesions along with the ileostomy and subsequent increased risk of injury. She expresses desires to undergo surgery here at [facility]. I reviewed the surgical approach, need for general anesthesia, and the expected postoperative recovery. The patient was informed that patient's undergoing this procedure typically stay several days post-operativley. Additionally, I discussed the risks of the procedure including infection, bleeding,chronic leg swelling (lymphedema), DVT/PE, , damage to pelvic or abdominal structures such as the bowel, bladder, ureters, blood vessels, and nerves. All of Page Alesia Katz questions were answered to her satisfaction and she verbalized understanding of the plan of care. Surgical consent was obtained, bowel preparation reviewed and surgery will be scheduled in the near future. Advance Directives: Lastly, I have reviewed her advance directives that are on file in [facility] and they are up to date. Thank you for referring this shant patient to [facility] for her cancer care. I will keep you apprised of her progress. Patient seen and examined with Dr. Montana, Attending Field Service Tech Oncologist DOTTY RICHARDSON MD, PGY-2 05/13/2014 I have seen and examined the patient and reviewed and edited the resident's above history and I agree with the details as written. The assessment and plan were formulated in discussion with me and I agree with them as documented. Carmen Montana MD documented in this encounter Plan of Treatment Upcoming Encounters Date Type Department Care Team (Late st Contact Info) Description 05/15/2024 1:00 PM EDT TH Visit (TeleHealth) [place] [address] Pasha Wood MD [facility] [place] [address] documented as of this encounter Procedures Procedure Name Priority Date/Time Associated Diagnosis Comments HEMOGRAM Routine 05/13/2014 5:18 PM EDT Endometrial hyperplasia DIFFERENTIAL, AUTOMATED Routine 05/13/2014 5:18 PM EDT Endometrial hyperplasia TYPE AND SCREEN, SDP (FUTURE SURGERY, [facility] SAME DAY PROGRAM ONLY) Routine 05/13/2014 5:18 PM EDT Endometrial hyperplasia CREATININE Routine 05/13/2014 5:18 PM EDT Endometrial hyperplasia ABO/RH TYPING Routine 05/13/2014 5:18 PM EDT Endometrial hyperplasia CBC (WITH DIFF) Routine 05/13/2014 5:18 PM EDT Endometrial hyperplasia ANTIBODY SCREEN Routine 05/13/2014 5:18 PM EDT Endometrial hyperplasia BUN Routine 05/13/2014 5:18 PM EDT Endometrial hyperplasia ELECTROLYTES PANEL Routine 05/13/2014 5: 18 PM EDT Endometrial hyperplasia documented in this encounter Results * Antibody screen (05/13/2014 5:18 PM EDT) Ab Screen Interp Negative [facility] Expires at 6541 on: [id number] [facility] MILLTU[facility] CORPORATIONIUM Blood specimen (specimen) 05/13/2014 5:18 PM EDT 05/13/2014 5:25 PM EDT Narrative Resulting Agency Comment Spec In Lab Carmen Montana MD BLOOD BANK LAB ORDER SHAHID Performing Organization Address City/[facility] Co de Phone Number [facility] ComEdFORMERLY [facility] * ABO/Rh Typing (05/13/2014 5:18 PM EDT) ABORH Type A Pos CERNER DattchENNIUM Blood specimen (specimen) 05/13/2014 5:18 PM EDT 05/13/2014 5:25 PM EDT Narrative Resulting Agency Comment Spec In Lab Carmen Montana MD BLOOD BANK LAB ORDER SHAHID TERESA DELGADOIUM * (ABNORMAL) Differential, Automated (05/13/2014 5:18 PM EDT) Neutrophil % 71.1 % CERNER MILLENNIUM Neutrophil Absolute 6.53(H) 1.50 - 6.30 x10(3)/mc L CERNER MILLENNIUM Lymph % 22.1 % CERNER MILLENNIUM Lymphocytes Abs 2.0 1.0 - 3.6 x10(3)/mc L CERNER MILLENNIUM Monocyte % 4.9 % CERNER MILLENNIUM Monocyte Abs 0.4 0.2 - 1.0 x10(3)/mc L CERNER MILLENNIUM Eos % 1.3 % CERNER MILLENNIUM Eosinophils Abs 0.1 0.0 - 0.5 x10(3)/mc L CERNER MILLENNIUM Basophil % 0.5 % CERNER MILLENNIUM Baso Absolute 0.0 0.0 - 0.2 x10(3)/mc L CERNER MILLENNIUM Immature Gran % 0.10 % CERN ER MILLENNIUM Comment: Immature granulocytes(IG's)percentage and absolute count will include metamyelocytes, myelocytes, and promyelocytes. Blood smears from CBCs yielding IG's will be scanned manually for concordance. If this scan disagrees with the automated IG or if promyelocytes are noted, a manual differential will be performed. Immature Gran Absolute 0.01 0.00 - 0.05 x10(3)/mc L CERNER MILLENNIUM Blood specimen (specimen) 05/13/2014 5:18 PM EDT 05/13/2014 5:22 PM EDT Narrative Resulting Agency Comment Spec In Lab Carmen Montana MD HEMATOLOGY ORDERABLE S TERESA MAYES * (ABNORMAL) Hemogram (05/13/2014 5:18 PM EDT) White Blood Cell 9.2 4.0 - 10.0 x10(3)/mc L CERNER MILLENNIUM Red Blood Cell 4.40 3.93 - 5.22 x10(6)/mc L CERNER MILLENNIUM Hemoglobin 13.4 11.2 - 15.7 gm/dL CERNER MILLENNIUM Hematocrit 40.4 34.0 - 45.0 % CERNER MILLENNIUM Mean Cell Volume 91.8 79.0 - 94.0 fL CERNER MILLENNIUM Mean Cell Hemoglobin 30.5 26.6 - 32.2 pg CERNER MILLENNIUM Mean Cell Hemoglobin Concentration 33.2 32.0 - 36.5 gm/dL CERNER MILLENNIUM Platelet 444(H) 145 - 370 x10(3)/mc L CERNER MILLENNIUM RDW Standard Deviation 48.2(H) 35.0 - 46.0 fL CERNER MILLENNIUM RDW coefficient of variation 14.2 10.9 - 14.4 % CERNER MILLENNIUM Mean Platelet Volume 9.0 9.0 - 12.0 fL CERNER MILLENNIUM Blood specimen (specimen) 05/13/2014 5:18 PM EDT 05/13/2014 5:22 PM EDT Narrative Resulting Agency Comment Spec In Lab Carmen Montana MD HEMATOLOGY ORDERABLE S CERESTELA MILLENNIUM * (ABNORMAL) Creatinine (05/13/2014 5:18 PM EDT) Creatinine 0.63(L) 0.70 - 1.20 mg/dL CERNER MILLENNIUM Comment: Please note that the pediatric reference intervals supplied above were not validated at [facility]. Results from pediatric patients should be interpreted in conjunction to the patient's age, height and muscle mass. Est Glomerular Filtration Rate >60 >=60 CERNER [...] the following links into your internet browser. [email or web address] Blood specimen (specimen) 05/13/2014 5:18 PM EDT 05/13/2014 5:22 PM EDT Narrative Resulting Agency Comment Spec In Lab Carmen Montana MD CHEMISTRY ORDERABLES Performing Organization Address [facility] Co de Phone Number TERESA DELGADOIUM * BUN (05/13/2014 5:18 PM EDT) Blood Urea Nitrogen 15 8 - 18 mg/dL CERNER MILLENNIUM Blood specimen (specimen) 05/13/2014 5:18 PM EDT 05/13/2014 5:22 PM EDT Narrative Resulting Agency Comment Spec In Lab Carmen Montana MD CHEMISTRY ORDERABLES Performing Organization Address [facility] Phone Number TERESA DELGADOIUM * Electrolytes panel (05/13/2014 5:18 PM EDT) Sodium 139 135 - 145 mmol/L CERNER MILLENNIUM Potassium 3.9 3.5 - 5.0 mmol/L CERNER MILLENNIUM Comment: Please note: ??Patients with WBC >100,000 may have falsely elevated Potassium levels. ??For accurate Potassium quantification in these patients send serum separator tube (gold top) for subsequent determinations. ??Contact the Clinical Chemistry Laboratory if there are any questions. Chloride 101 98 - 107 mmol/L CERNER MILLENNIUM Carbon Dioxide 26 22 - 31 mmol/L CERNER MILLENNIUM Anion Gap 12 5 - 15 mmol/L CERNER MILLENNIUM Blood specimen (specimen) 05/13/2014 5:18 PM EDT 05/13/2014 5:22 PM EDT Narrative Resulting Agency Comment Spec In Lab Carmen Montana MD CHEMISTRY ORDERABLES Performing Organization Address City/[facility] Co de Phone Number TERESA DELGADOIUM documented in this encounter Visit Diagnoses Diagnosis Endometrial hyperplasia- Primary Endometrial hyperplasia, unspecified Complex endometrial hyperplasia with atypia Endometrial hyperplasia with atypia documented in this encounter Care Teams Children'S Attendant Relationship Specialty Start Date End Date Bell Navarrete MD [address] [place] [address] PCP - General 06/21/10 06/27/16 documented as of this encounter
--- OUTSIDE RECORDS SUMMARY | 2024-03-27 20:54 | XMS_ITS | Encounter Summary ---
Author Organization [facility] [place] [address] Care Team Providers Care Transverse Abdominal Muscle Nurse Name Role Phone Nathalie Bain MD Primary Care Provider Reason for Visit * Reason Onset Date Comments Medication Refill 04/15/2021 Encounter Details Date Type Department Care Team (Late st Contact Info) Description 04/15/2021 Ref[place] [phone] Lucian Mace RN Social History Tobacco Use Types Packs/Day [...] PM EDT TH Visit (TeleHealth) [place] [phone] Pasha Wood MD [facility] [place] [address] documented as of this encounter Visit Diagnoses Not on filedocumented in this encounter Care Teams Transverse Abdominal Muscle Nurse Relationship Specialty Start Date End Date Nathalie Bain MD [address] [place] [address] PCP - General Family Medicine 06/28/16 12/20/21 documented as of this encounter
--- OUTSIDE RECORDS SUMMARY | 2024-03-27 20:54 | XMS_ITS | Encounter Summary ---
Author Organization [facility] [place] [address] Care Team Providers Care Slot Floor Person Name Role Phone Nathalie Bain MD Primary Care Provider [phone] Reason for Visit * Reason Comments Skin Check Encounter Details Date Type Department Care Team (Late st Contact Info) Description 12/12/2017 1:00 PM EDT Office Visit Dermatology at [facility] [address] [place] [phone] Machelle Mckeon MD [facility] [address] [place] [address] Jo-Ann Santiago PA [facility] [address] [place] [address] Seborrheic keratosis; Stucco keratoses; AK (actinic keratosis); Irritant contact dermatitis due to other agents Social History Tobacco Use Types Packs/Day Years [...] this encounter Patient Instructions * Patient Instructions* Jazzmine Tian V - 12/12/2017 1:00 PM EDT Actinic Keratoses You have been diagnosed today with Actinic Keratosis (AK). These dry, scaly patches are considered the earliest stage in the development of skin cancer. In rare cases, an AK can progress to skin cancer. Because of this risk, AKs are usually treated. You were treated today with Liquid Nitrogen. This is the most common treatment for AKs. Liquid nitrogen is extremely cold, and freezes the surface of the skin, causing the lesion to flake off. Treatment with liquid nitrogen can be uncomfortable, but discomfort should subside after a couple of hours. The area treated will look red and irritated, and it may blister up or turn dark, then fall off. This is normal! You do not need any special treatment for the area, but you may find cold compresses and/or a lightapplication of Vaseline soothing. For best results, do not rub or pick at the healing lesion. Expected healing time is 3-4 weeks. Please contact the Dermatology clinic at [phone] if the lesion has not fully resolved after 6 weeks. documented in this encounter Progress Notes * Jo-Ann Santiago PA - 12/12/2017 1:00 PM EDT DERMATOLOGY - ESTABLISHED PATIENT FOLLOW-UP Date of service: 12/12/2017 Page Katz : 1950, 67 y.o. CC: Chief Complaint Patient presents with ??? Skin Check HPI: Page Katz is a 67 y.o. female last seen by Dr. Villatoro on 06/28/2016. Patient is new to me. Ms. Katz returns today for a full skin exam with a few scaly raised lesions on the back. Denies itching, bleeding, or tenderness of any of these lesions. Denies prior treatments. Relevant Skin History: -Okay to leave detailed voice message with results? Yes Warts SKS AKS Clavus Family History: Melanoma: None Social History: - Medications: Current Outpatient Prescriptions Medication Sig Dispense Refill ??? folic acid [...] mouth daily. 90 tablet 3 ??? aspirin (zoomsquare ASPIRIN) 81 mg chewable tablet ??? Ryaswstxtdpwr-Ur-Ydaw-Minerals (ONE-A-DAY WOMENS FORMULA) 27-0.4 mg Tab No [...] the findings listed below. Diagnosis/Skin findings/Assessment/Plan: 1. Actinic keratosis - Right shoulder x1, right lower cheek x1, right forehead x1: 0.2-0.3cm scaly irregular pink papules. - Discussed premalignant potential of these lesions. - Discussed that a surgical procedure would likely be needed if these were to progress to skin cancer. - Shared decision to proceed with LN2 treatment at this time: Procedure Note: Procedure: Destruction of lesions with cryotherapy. Number: 3 Location: as above Discussed procedure and expectations including risks (including risk of hypopigmentation) and benefits. Verbal consent obtained. Frozen with LN2, 15-30 second thaw time, TWICE. There were no complications; the patient tolerated the procedure well. Post-procedure expectations and wound care were reviewed. 2. Seborrheic keratoses - Scattered, including the back: Multiple 0.4-0.6cm brown papules with waxy, stuck-on appearance. Milia-like cysts, comedone-like openings and/or fissuring on dermoscopy. - Patient reassured of benign nature. - Advised patient to call if areas become inflamed or irritated. - Okay to use OTC cortisone cream on small inflamed lesions on the back if needed. 3. Irritant contact eczema - Left upper abdomen: demarcated eczematous patch underlying adhesive - Declines treatment. 4. Stucco Keratoses - Bilateral lower legs & feet (nonsymptomatic) -Discussed benign nature of lesion and provided reassurance -No treatment necessary at this time -Observe skin for change in color, size or character. Call if such occur [facility] [id number] RTC: 1 year for FSE, sooner if needed. Routed for scheduling. Note initiated by AMARA LEVY. I, Jazzmine Tian, have performed the documentation for this encounter in the presence of and acting as a scribe for Jo-Ann Santiago PA-C (Bri). I performed the services which were documented by the scribe, and I agree with the accuracy of the documentation in this encounter. Jo-Ann Santiago PA-C Reviewed and signed by Jo-Ann Santiago PA-C [facility] Patient seen in conjunction with staff automotive machinist apprentice: Machelle Mckeon MD Section of Dermatology [facility] * Machelle Mckeon MD - 12/12/2017 1:00 PM EDT Patient seen and examined with Rachelle Santiago PA-C. We reviewed the patient's history. I personallyexamined the patient. We discussed the assessment and plan. Actinic keratoses on exam. Agree with cryotherapy to these lesions Patient seen in conjunction with Jo-Ann Santiago PA-C (Bri) Signed by: Machelle Mckeon MD Section of Dermatology [facility] documented in this encounter Plan of Treatment Upcoming Encounters Date Type Department Care Team (Late st Contact Info) Description 05/15/2024 1:00 PM EDT TH Visit (TeleHealth) [place] [address] Pasha Wood MD [facility] [place] [address] documented as of this encounter Visit Diagnoses Diagnosis Seborrheic keratosis Other seborrheic keratosis Stucco keratoses AK (actinic keratosis) Actinic keratosis Irritant contact dermatitis due to other agents documented in this encounter Care Teams Slot Floor Person Relationship Specialty Start Date End Date Nathalie Bain MD [address] [place] [address] PCP - General Family Medicine 06/28/16 12/20/21 documented as of this encounter
--- OUTSIDE RECORDS SUMMARY | 2024-03-27 20:54 | XMS_ITS | Encounter Summary ---
Author Organization [facility] Address [facility] [place] [address] Care Team Providers Care Metalizing Machine Operator Automatic Name Role Phone Bell Navarrete MD Primary Care Provider [phone] Reason for Visit * Auth/Cert Specialty Diagnoses / Procedures Referred By Justen javier Referred To Contact Diagnoses Personal history of other diseases of the digestive system Personal history of other medical treatment hx crohns- hx bowel resection Fiberscan @11:30am Procedures PRO ILEOSCOPY THRU STOMA, BIOPSY ILEOSCOPY W/ BIOPSY Referral ID Status Reason Start Date Expiration Date Visits Re quested Visits Authorized [id number] 1 1 Encounter Details Date Type Department Care Team (Late st Contact Info) Description 12/09/2015 1:30 PM EDT - 12/09/2015 2:00 PM EDT Surgery [place] [address] Isael Christianson MD [facility] [place] [address] ILEOSCOPY W/ BIOPSY (WRVU 1.17) Social History Tobacco Use Types Packs/Day Years [...] to be checked. 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 2 days a week Ixxbkljpmgect-Lg-Xpek-M inerals (ONE-A-DAY WOMENS FORMULA) 27-0.4 mg Tab [...] PM EDT TH Visit (TeleHealth) [place] [address] Pasha Wood MD [facility] [place] [address] documented as of this encounter Procedures Procedure Name Priority Date/Time Associated Diagnosis Comments ILEOSCOPY W/ BIOPSY (WRVU 1.17) 12/09/2015 1:33 PM EDT hx crohns- hx bowel resection Fiberscan @11:30am ILEOSCOPY Routine 12/09/2015 1:30 PM EDT documented in this encounter Results * ILEOSCOPY (12/09/2015 1:30 PM EDT) ILEOSCOPY [facility] Patient Name: Page Katz ? Procedure Date: 12/09/2015 1:30 PM ? Date of : 1950 ? Age: 65 ? Order #: [id number] ? Procedure: ? Ileoscopy Indications: ? History [...] EDT Bell Navarrete MD GENERAL SURGICAL ORD [facility] documented in this encounter Visit Diagnoses Not on filedocumented in this encounter Administered Medications Inactive Administered Medications - up to 3 most recent administrations Medication Order MAR Action Action Date Dose Rate Site fentaNYL 50 mcg/mL multi-dose injection ONCE PRN, Starting on Margarita 12/09/15 at 1330, Until Margarita 12/09/15 at 1418, Intra-Operative (Intra-Procedure), Routine Given 12/09/2015 1:36 PM EDT 50 mcg Given 12/09/2015 1:33 PM EDT 50 mcg Given 12/09/2015 1:30 PM EDT 50 mcg midazolam (PF) (VERSED) 1 mg/mL multi-dose injection ONCE PRN, Starting on Margarita 12/09/15 at 1330, Until Margarita 12/09/15 at 1418, Intra-Operative (Intra-Procedure), Routine Given 12/09/2015 1:36 PM EDT 1 mg Given 12/09/2015 1:30 PM EDT 2 mg documented in this encounter Active and Recently Administered Medications Times are shown in EDT. PRN Medication Order 12/07/2015 12/08/2015 12/09/2015 fentaNYL 50 mcg/mL multi-dose injection (CANCELED) ONCE PRN, Starting on Margarita 16 at 1330, Until Margarita 12/09/15 at 1418, Intra-Operative (Intra-Procedure), Routine 1330 (Given - Provid er: Tess Longoria RN)1333 (Given - Provider: Tess Longoria RN)1336 (Given - Provider: Tess Longoria RN) midazolam (PF) (VERSED) 1 mg/mL multi-dose injection (CANCELED) ONCE PRN, Starting on Margarita 12/09/15 at 1330, Until Margarita 12/09/15 at 1418, Intra-Operative (Intra-Procedure), Routine 1330 (Given - Provid er: Tess Longoria RN)1336 (Given - Provider: Tess Longoria RN) documented in this encounter Care Teams Metalizing Machine Operator Automatic Relationship Specialty Start Date End Date Bell Navarrete MD [address] [place] [address] PCP - General 06/21/10 06/27/16 documented as of this encounter
--- OUTSIDE RECORDS SUMMARY | 2024-03-27 20:54 | XMS_ITS | Encounter Summary ---
[place] [address] Care Team Providers Care Sweeper Cleaner Industrial Name Role Phone Nathalie Bain MD Primary Care Provider Reason for Visit * Reason Onset Date Comments Medication Refill 11/19/2020 Encounter Details Date Type Department Care Team (Late st Contact Info) Description 11/19/2020 [place] [phone] Kedar Turner RN Social History Tobacco Use Types Packs/Day [...] encounter Miscellaneous Notes * Telephone Encounter - Kedar Turner, RN - 11/19/2020 12:17 PM EDT RTC to Page and she is asking for a refill Prednisone 5 mg, 60 tabs, to [place] documented in this encounter Plan of Treatment Upcoming Encounters Date Type Department Care Team (Late st Contact Info) Description 05/15/2024 1:00 PM EDT TH Visit (TeleHealth) [place] [address] Pasha Wood MD [facility] [place] [address] documented as of this encounter Visit Diagnoses Not on filedocumented in this encounter Care Teams Sweeper Cleaner Industrial Relationship Specialty Start Date End Date Nathalie Bain MD [address] [place] [address] [address] [place] [address] PCP - General Family Medicine 06/28/16 12/20/21 documented as of this encounter
--- OUTSIDE RECORDS SUMMARY | 2024-03-27 20:54 | XMS_ITS | Encounter Summary ---
[place] [address] Care Team Providers Care Certified Shorthand Reporter Name Role Phone Nathalie Bain MD Primary Care Provider [phone] Reason for Visit * Reason Onset Date Comments Request For Record 01/12/2021 Encounter Details Date Type Department Care Team (Late st Contact Info) Description 01/12/2021 Telephone Ophthalmology at [address] [address] Kylee Soni Request For Record Social History Tobacco Use Types Packs/Day Years [...] encounter Miscellaneous Notes * Telephone Encounter - Kylee Soni - 01/12/2021 2:15 PM EDT Pt has called a week or so ago to have records on and transferred [facility]. 's records have been received. Still waiting on this pt records. FAX [phone] Please have records for pt sent. documented in this encounter Plan of Treatment Upcoming Encounters Date Type Department Care Team (Late st Contact Info) Description 05/15/2024 1:00 PM EDT TH Visit (TeleHealth) [place] [address] Pasha Wood MD [facility] [place] [address] documented as of this encounter Visit Diagnoses Not on filedocumented in this encounter Care Teams Certified Shorthand Reporter Relationship Specialty Start Date End Date Nathalie Bain MD [address] [place] [address] PCP - General Family Medicine 06/28/16 12/20/21 documented as of this encounter
--- OUTSIDE RECORDS SUMMARY | 2024-03-27 20:54 | XMS_ITS | Encounter Summary ---
Author Organization [facility] [place] [address] Care Team Providers Care Award Machine Operator Name Role Phone Bell Navarrete MD Primary Care Provider [phone] Encounter Details Date Type Department Care Team (Late st Contact Info) Description 05/26/2014 7:58 AM EDT Anesthesia Event Main [place] [address] Roseline Knowles MD [facility] [place] [address] Anesthesia Record Procedure Summary Procedure Name Responsible Anesthesiologist Anesthesia Start Time Anesthesia Stop Time @HYSTERECTOMY, TOTAL ABD., W W/O BSO (WRVU 17.31) (Abdomen) Roseline Knowles MD 05/26/14 0758 05/26/14 1219 Events Date Time Event Comment 05/26/2014 0652 0758 AN Verify 0758 Start 0758 An Start Data 0803 An Induction 0805 An Intubation 0818 An Data Art BP measurements temporarily paused for line placements 0820 IV Start 0832 Anesthesia Ready 0908 Quick Note Steep trendelen stephen as noted in position note 1204 Extubation/LMA Out 1208 an stop data 1219 Stop 1219 Handoff The patient's c mclaughlin was reviewed. The current anestetic course as well as the anesthetic plans were also reviewed. Epidural infusion maintained. Meds Name Total fentaNYL 250 mcg lidocaine IV 40 mg propofol 200 mg Rocuronium 120 mg PHENYLephrine 80 mcg ePHEDrine 7.5 mg ondansetron 4 mg dexAMETHasone 8 mg Neostigmine 4 mg Glycopyrrolate 0.8 mg ceFAZolin 2 g BUpivacaine 0.125% INF 17 mL Labetalol 5 mg heparin (porcine) subcutaneous injection 5,000 Units 5,000 Units lactated ringers 1,600 mL lactated ringers 2,400 mL * Agents Name O2 Air N2O Sevoflurane (et) * Blood No blood administrations on file. Lines, Drains, and Airways Type Details Placement Removal Colostomy (had prior to admission) 3 2316 by Simona Pearce, RN Incision 06/19/13; flank; 03/27/22 (LDA cleanup utility RA#[id number]); 1715 (LDA cleanup utility RA#[id number]) 06/19/13 0000 by Jumana Guerrier RN 03/27/22 1715 by Lindsey Mojica Incision 05/26/14; abdomen; midline, vertical; 03/27/22 (LDA cleanup utility RA#[id number]); 1715 (LDA cleanup utility RA#[id number]) 05/26/14 0000 by Caitie Ingram RN 03/27/22 1715 by Lindsey Mojica Urethral Catheter 05/26/14; indwelling double lumen catheter; 100% silicone; 05/27/14; 0935 05/26/14 0000 by Flavio Soto RN 05/27/14 0935 by Rachel Shoemaker LNA (RETIRED) Peripheral IV Line - Single Lumen 05/26/14; 0636; metacarpal vein right (top of hand); ambw-any-tyoxfc catheter system; 18 gauge, 1 in length; RN; distraction, intradermal injection, tolerated well, appears comfortable, age-appropriate response; 1; 05/28/14; 1123 05/26/14 0636 by Desiree Gorman RN 05/28/14 1123 by Rachel Shoemaker LNA Epidural 05/26/14; 0726; thor acic (loss 6, Tip Top 8, Skin 15 +); Dr. Connelly; removed inadvertantly; 05/27/14; 1900 05/26/14 0726 by Page Villalpando RN 05/27/14 1900 by Madison Sim RN (RETIRED) Peripheral IV Line - Single Lumen basilic vein left (medial side of arm); 20 gauge; Dayanna SRNA; 1; no longer indicated, removed per policy/procedure, catheter intact; 05/29/14; 0916 05/26/14 0853 by 05/29/14 0916 by Isael Soto, RN ETT Mask Ventilation: Adjunct (2); ETT Type: Cuffed; ETT Size: 7.5 mm; Indirect: Video; Notes: Asleep, Pre-O2, Cricoid Pressure, Stylette; Attempts: 2; Laryngoscopy Grade: 2; ETT Placement Verified By: Auscultation, Capnometry, Visual; Secured at Teeth: 21 cm; Inserted by: Chelsy CHAPMAN; Removal Date: 05/26/14; Removal Time: 1204 05/26/14 0855 by 05/26/14 1204 by Stef Valentino CRNA documented in this encounter Social History [...] OR Notes * Anesthesia Postprocedure Evaluation - Roseline Knowles MD - 05/26/2014 1:28 PM EDT Patient: Page Katz Procedure(s) Performed: Procedure(s): @HYSTERECTOMY, TOTAL ABD., W W/O BSO Actual Anesthetic: general Patient location: PACU Post-op pain: Epidural being titrated for pain control Post-op nausea: no nausea or vomiting Last Vitals: Filed Vitals: 05/26/14 1315 BP: 111/51 Pulse: 65 Temp: Resp: Post-op cardiovascular and respiratory status: is stable Level of consciousness: responds to stimulation, sleepy but arouses and answers questions appropriately Complications: no apparent complications and tolerated the procedure well Fluid Status: normal * Anesthesia Procedure Notes - Jacob Connelly MD - 05/26/2014 8:48 AM EDT Associated Order(s): ANE NEURAXIAL UPDATED Procedure: Neuraxial Block Post-op Pain Control Type: Epidural The patient was greeted; the risks and benefits were reviewed. The anesthetic consent was obtained.The medical history and chart were reviewed. The timeout was performed. Start time: 05/26/2014 7:14 AM End time: 05/26/2014 7:57 AM Patient Location: Operating Room Patient Prep Position: Prone Prep: Hand Hygiene, Sterile Gloves, Chlorhexidine, Hat, Mask, Alcohol and Patient Draped Injection technique: continuous Skin Anesthetic 5 ml Procedure Technique Level of needle insertion: T11-12 and T12-L1 Needle approach: midline Needle Type: Tuohy Needle length: 5 in Needle insertion depth when ALINA achieved: 6 cm Technique for Loss of Resistance: ALINA saline Catheter at skin depth: 10 cm Dressing/Secured with: Chlorhexidine Tegaderm, Tegaderm and Tape Number of attempts: 3 Events/Notes Imaging: epidurogram obtained and fluoroscopy guided Level of Epidural Tip via Fluoroscopy: T10-11 Iohexol 240 mgI/mL, 4 mL Events: inadvertent dural puncture Additional Notes: Pt placed in prone position on fluoro Vitals monitored by RN. Multiple attempts @ t12L1 interspace without success. Epidural placement successful @ T11-12. Epidurogram via needle demonstrated epidural placement. Catheter advanced under fluoro guidance to T8, But aspirate of fluid at that time was equivocal yet GLUCOSE Determination of fluid was 41. 3 ml omnipaque was suggestive of myelogram, despite pt lack of paresthesia with passage of catheter. I elected to withdraw catheter to 10 cm, with distal tip @ T11. Dye study there consistent with epidural placement. Team notified of status of catheter. Pt brought to OR For definitive surgery Resident/GENERAL DISTILLERY WORKER: None Fellow: Attending Physician: Maricel ~~~~~~~~~~~~~~~~~~~~~~~~~~~~~~~~~~~~~~~~~~~~~~~~~~~~~~~~~~~~ * Anesthesia Preprocedure Evaluation - Roseline Knowles MD - 05/25/2014 2:23 PM EDT Pre-Anesthesia Evaluation for: Page Katz a 63 y.o. female. Procedure(s): @HYSTERECTOMY, TOTAL ABD., W W/O BSO @LYMPHADENECTOMY, LIMITED FOR STAGING, RETROPERITONEAL Patient Active Problem List Diagnosis ??? Complex endometrial hyperplasia with atypia ??? S/P thyroidectomy ??? Thyroid cancer ??? Hypothyroidism Past Medical History Diagnosis Date ??? History [...] 04/22/2014 ??? Nephrolithiasis ??? Obesity BMI 43 Past Surgical History Procedure Date ??? Cholecystectomy 10/22/2008 Open cholecystectomy ??? Thyroidectomy 10/13/2011 THYROIDECTOMY, TOTAL OR COMPLETE performed by RICK CARD at [facility] OR ??? Somatosensory test, any/all per. nerves, trunk or head 10/13/2011 FACIAL NERVE MONITORING, SETUP performed by RICK CARD at [facility] OR ??? Total knee arthroplasty 2006, 2010 Bilateral knee replacements ??? Percut remv kid stone, 2+ cm 06/19/2013 NEPHROLITHOTOMY, ([facility]) PERCUTANEOUS, OVER 2CM performed by Alfredito Alonzo Jr., MD at [facility] OR ??? Percut dilatn renal tract 06/19/2013 PERCUTANEOUS INTRO GUIDE WIRE TO ACCESS RENAL PELVIS,AND OR URETER, W\DILATION performed by Alfredito Alonzo Jr., MD at [facility] OR ??? Cystourethroscopy, ureter catheter 06/19/2013 CYSTO, RETROGRADE, URETEROPYELOGRAPHY performed by Alfredito Alonzo Jr., MD at [facility] OR ??? Total colectomy 01/04/2006 For Crohn's Disease and colon cancer ??? Proctectomy 01/04/2006 For Crohn's Disease and colon cancer ??? Ileostomy or jejunostomy 01/04/2006 For Crohn's Disease and colon cancer ??? Dilation and curettage of uterus 04/22/2014 Path showed complex endometrial hyperplasia w/ atypia History Substance Use Topics ??? Smoking status: Never Smoker ??? Smokeless tobacco: Never Used ??? Alcohol Use: No History Drug Use No Allergies Allergen Reactions ??? Other (Unclassified Drug) Other (See Comments) Pain Patch(drug unknown) - confused hallucinations Medications: MAR and/or home medications have been reviewed. Physical Exam: There were no vitals filed for this visit. There is no height or weight on file to calculate BMI. Airway Assessment: Mallampati: III TM distance: >3 FB Neck ROM: full Cardiovascular Assessment: Pulmonary Assessment: Dental Assessment: Comment: Caps and crowns, top front incisors [facility] Assessment: Patient is wearing No contact(s). IV access: Peripheral line Anesthesia Plan: ASA 3 general, with a(n) intravenous induction From anesthesia note from 2013 - rapid desaturation, MAC -> video, not really clear why unsuccessful with MAC Hx chronic steroid use for polymyalgia, took prednisone 10mg today S/p thyroidectomy for thyroid CA, on replacement Crohn's disease, s/p colectomy with osteomy Obesity, no VAN Hx colon CA HTN well controlled on current regimen Plan GA/ET + epidural, arterial line, second IV Questions solicited and answered. Risks reviewed. She understands and agrees. Region - Other Informed Consent: Anesthetic plan and risks discussed with patient and spouse. Use of blood products discussed with patient and spouse whom consented to blood products. Plan discussed with DINORAH. [facility]. Assessment: documented in this encounter Miscellaneous Notes * Addendum Note - Perla Alan CRNA - 05/26/2014 2:42 PM EDT Addendum created 05/26/14 1442 by Perla Alan CRNA Modules edited:Anesthesia Events documented in this encounter Plan of Treatment Upcoming Encounters Date Type Department Care Team (Late st Contact Info) Description 05/15/2024 1:00 PM EDT TH Visit (TeleHealth) [place] [address] Pasha Wood MD [facility] [place] [address] documented as of this encounter Procedures Procedure Name Priority Date/Time Associated Diagnosis Comments ANE NEURAXIAL UPDATED Routine 05/26/2014 8:57 AM EDT documented in this encounter Results * ANE NEURAXIAL UPDATED (05/26/2014 8:57 AM EDT) Narrative Jacob Connelly MD - 05/26/2014 8:57 AM EDT Jacob Connelly MD ? 05/26/2014 ??8:57 AM Procedure: ?? Neuraxial Block Post-op Pain Control Type: Epidural The patient was greeted; the risks and benefits were reviewed. ?? The anesthetic consent was obtained. ??The medical history and chart were reviewed. ??The timeout was performed. Start time: 05/26/2014 7:14 AM End time: 05/26/2014 7:57 AM Patient Location: Operating Room Patient Prep Position: Prone Prep: Hand Hygiene, Sterile Gloves, Chlorhexidine, Hat, Mask, Alcohol and Patient Draped Injection technique: continuous Skin Anesthetic 5 ml Procedure Technique Level of needle insertion: T11-12 and T12-L1 Needle approach: midline Needle Type: Tuohy Needle length: 5 in Needle insertion depth when ALINA achieved: 6 cm Technique for Loss of Resistance: ALINA saline Catheter at skin depth: 10 cm Dressing/Secured with: Chlorhexidine Tegaderm, Tegaderm and Tape Number of attempts: 3 Events/Notes Imaging: ??epidurogram obtained and fluoroscopy guided Level of Epidural Tip via Fluoroscopy: T10-11 Iohexol 240 mgI/mL, 4 mL Events: ??inadvertent dural puncture Additional Notes: ??Pt placed in prone position on fluoro ??Vitals monitored by ??RN. Multiple attempts @ ??t12L1 ??interspace without success. ??Epidural placement successful @ ??T11-12. ??Epidurogram via needle demonstrated epidural placement. ??Catheter advanced under fluoro guidance to T8, ??But aspirate of fluid at that time was equivocal yet ??GLUCOSE ??Determination of fluid was 41. ??3 ml ??omnipaque was suggestive of myelogram, despite pt lack of paresthesia with passage of catheter. I elected to withdraw catheter to 10 cm, with distal tip @ ??T11. ?? Dye study there consistent with epidural placement. Team notified of status of catheter. ??Pt brought to OR ??For definitive surgery Resident/GENERAL DISTILLERY WORKER: None Fellow: Attending Physician: ??Maricel ~~~~~~~~~~~~~~~~~~~~~~~~~~~~~~~~~~~~~~~~~~~~~~~~~~~~~~~~~~~~ Procedure Note Jacob Connelly MD - 05/26/2014 8:48 AM EDT Procedure: Neuraxial Block Post-op Pain Control Type: Epidural The patient was greeted; the risks and benefits were reviewed. Theanesthetic consent was obtained. The medical history and chart werereviewed. The timeout was performed. Start time: 05/26/2014 7:14 AM End time: 05/26/2014 7:57 AM Patient Location: Operating Room Patient Prep Position: Prone Prep: Hand Hygiene, Sterile Gloves, Chlorhexidine, Hat, Mask, Alcohol andPatient Draped Injection technique: continuous Skin Anesthetic 5 ml Procedure Technique Level of needle insertion: T11-12 and T12-L1 Needle approach: midline Needle Type: Tuohy Needle length: 5 in Needle insertion depth when ALINA achieved: 6 cm Technique for Loss of Resistance: ALINA saline Catheter at skin depth: 10 cm Dressing/Secured with: Chlorhexidine Tegaderm, Tegaderm and Tape Number of attempts: 3 Events/Notes Imaging: epidurogram obtained and fluoroscopy guided Level of Epidural Tip via Fluoroscopy: T10-11 Iohexol 240 mgI/mL, 4 mL Events: inadvertent dural puncture Additional Notes: Pt placed in prone position on fluoro Vitals monitoredby RN. Multiple attempts @ t12L1 interspace without success. Epiduralplacement successful @ T11-12. Epidurogram via needle demonstratedepidural placement. Catheter advanced under fluoro guidance to T8, Butaspirate of fluid at that time was equivocal yet GLUCOSE Determinationof fluid was 41. 3 ml omnipaque was suggestive of myelogram, despite ptlack of paresthesia with passage of catheter. I elected to withdraw catheter to 10 cm, with distal tip @ T11. Dyestudy there consistent with epidural placement. Team notified of status of catheter. Pt brought to OR For definitivesurgery Resident/GENERAL DISTILLERY WORKER: None Fellow: Attending Physician: Maricel ~~~~~~~~~~~~~~~~~~~~~~~~~~~~~~~~~~~~~~~~~~~~~~~~~~~~~~~~~~~~ Jacob Connelly MD [employer] [facility] documented in this encounter Visit Diagnoses Not on filedocumented in this encounter Administered Medications Inactive Administered Medications - up to 3 most recent administrations Medication Order MAR Action Action Date Dose Rate Site BUpivacaine 0.125% in NS (MARCAINE) (1.25 mg/mL) (1/8%) neuraxial CONTINUOUS PRN, Starting on Sun05/26/14 at 0855, Until Sun05/26/14 at 1140, Anesthesia Intra-op, Routine New Bag 05/26/2014 8:55 AM EDT 5 mL/hr 5 mL/hr ceFAZolin (ANCEF) 1g in dextrose 5% 50mL PRN, Starting on Sun05/26/14 at 0838, Until Sun05/26/14 at 1219, Administer over 30 Minutes, Anesthesia Intra-op Given 05/26/2014 8:38 AM EDT 2 g dexamethasone (DECADRON) injection PRN, Starting on Sun05/26/14 at 0922, Until Sun05/26/14 at 1219, Anesthesia Intra-op, Routine Given 05/26/2014 9:22 AM EDT 8 mg ePHEDrine Sulfate in sodium chloride 0.9% (PF) 50 mg/10 mL (5 mg/mL) injection Syrg PRN, Starting on Sun05/26/14 at 0831, Until Sun05/26/14 at 1219, Anesthesia Intra-op Given 05/26/2014 8:31 AM EDT 7.5 mg fentaNYL 50mcg/mL injection PRN, Starting on Sun05/26/14 at 0803, Until Sun05/26/14 at 1219, Pain, Anesthesia Intra-op, Routine Given 05/26/2014 11:33 AM EDT 50 mcg Given 05/26/2014 10:17 AM EDT 50 mcg Given 05/26/2014 8:51 AM EDT 50 mcg glycopyrrolate (ROBINUL) injection PRN, Starting on Sun05/26/14 at 1143, Until Sun05/26/14 at 1219, Anesthesia Intra-op, Routine Given 05/26/2014 11:43 AM EDT 0.8 mg heparin (porcine) subcutaneous injection 5,000 Units 5,000 Units, Subcutaneous, ONCE, 1 dose, On Sun05/26/14 at 0630, Day of Surgery (Day of Procedure), Routine Given 05/26/2014 9:18 AM EDT 5,000 Un its labetalol (NORMODYNE,TRANDATE) injection PRN, Starting on Sun05/26/14 at 0915, Until Sun05/26/14 at 1219, High Blood Pressure, Anesthesia Intra-op, Routine Given 05/26/2014 9:15 AM EDT 5 mg lactated ringers infusion CONTINUOUS PRN, Starting on Sun05/26/14 at 0758, Until Sun05/26/14 at 1219, Anesthesia Intra-op New Bag 05/26/2014 8:25 AM EDT mL New Bag 05/26/2014 7:58 AM EDT mL lactated ringers infusion CONTINUOUS PRN, Starting on Sun05/26/14 at 0820, Until Sun05/26/14 at 1219, Anesthesia Intra-op New Bag 05/26/2014 11:53 AM EDT mL New Bag 05/26/2014 10:20 AM EDT mL New Bag 05/26/2014 8:20 AM EDT mL lidocaine (PF) (XYLOCAINE) 100 mg/5 mL (2 %) injection PRN, Starting on Sun05/26/14 at 0803, Until Sun05/26/14 at 1219, Anesthesia Intra-op, Routine Given 05/26/2014 8:03 AM EDT 40 mg neostigmine (PROSTIGMINE) injection PRN, Starting on Sun05/26/14 at 1143, Until Sun05/26/14 at 1219, Anesthesia Intra-op, Routine Given 05/26/2014 11:43 AM EDT 4 mg ondansetron (ZOFRAN) injection PRN, Starting on Sun05/26/14 at 1103, Until Sun05/26/14 at 1219, Nausea, Anesthesia Intra-op, Routine Given 05/26/2014 11:03 AM EDT 4 mg PHENYLephrine HCl in NS (PF) (RUSS-SYNEPHRINE) 0.8 mg/10 mL (80 mcg/mL) injection Syrg PRN, Starting on Sun05/26/14 at 0826, Until Sun05/26/14 at 1219, Anesthesia Intra-op, Routine Given 05/26/2014 8:26 AM EDT 80 mcg propofol (DIPRIVAN) 10 mg/mL bolus injection (Anesthesia) PRN, Starting on Sun05/26/14 at 0803, Until Sun05/26/14 at 1219, Anesthesia Intra-op Given 05/26/2014 8:03 AM EDT 20 0 mg rocuronium (ZEMURON) injection PRN, Starting on Sun05/26/14 at 0803, Until Sun05/26/14 at 1219, Anesthesia Intra-op, Routine Given 05/26/2014 10:17 AM EDT 20 mg Given 05/26/2014 9:39 AM EDT 20 mg Given 05/26/2014 9:04 AM EDT 10 mg documented in this encounter Care Teams Award Machine Operator Relationship Specialty Start Date End Date Bell Navarrete MD [address] [place] [address] PCP - General 06/21/10 06/27/16 documented as of this encounter
--- OUTSIDE RECORDS SUMMARY | 2024-03-27 20:54 | XMS_ITS | Encounter Summary ---
Author Organization [facility] [place] [address] Care Team Providers Care Fall Intern Name Role Phone Nathalie Bain MD Primary Care Provider Reason for Visit * Reason Comments Medication Refill Encounter Details Date Type Department Care Team (Late st Contact Info) Description 03/12/2021 Ref[place] [phone] Pasha Wood MD [facility] [place] [address] Seronegative rheumatoid arthritis Social History Tobacco Use [...] PM EDT TH Visit (TeleHealth) [place] [phone] Pasha Wood MD [facility] [place] [address] documented as of this encounter Visit Diagnoses Diagnosis Seronegative rheumatoid arthritis Rheumatoid arthritis documented in this encounter Care Teams Fall Intern Relationship Specialty Start Date End Date Nathalie Bain MD [address] [facility] [address] [place] [address] PCP - General Family Medicine 06/28/16 12/20/21 documented as of this encounter
--- OUTSIDE RECORDS SUMMARY | 2024-03-27 20:54 | XMS_ITS | Encounter Summary ---
Author Organization [facility] [place] [address] Care Team Providers Care Rn Occupational Health Name Role Phone Nathalie Bain MD Primary Care Provider Reason for Visit * Reason Onset Date Comments Medication Refill 04/08/2021 Encounter Details Date Type Department Care Team (Late st Contact Info) Description 04/08/2021 [place] [address] Pasha Wood MD [facility] [place] [address] Social History Tobacco Use Types Packs/Day Years [...] Telephone Encounter - Deborah Galarza LPN - 04/08/2021 9:41 AM EDT Requested Prescriptions Pending Prescriptions Disp Refills ??? metHOTREXate 2.5 mg Tablet Sig: Take 8 tablets (20 mg) by mouth once a week. 5 tablets Last office visit: 11/29/2020 next appt 04/29/2021 Last refill: Unknown Labs: 04/07/2021 documented in this encounter Plan of Treatment Upcoming Encounters Date Type Department Care Team (Late st Contact Info) Description 05/15/2024 1:00 PM EDT TH Visit (TeleHealth) [place] [address] Pasha Wood MD [facility] [place] [address] documented as of this encounter Visit Diagnoses Not on filedocumented in this encounter Care Teams Rn Occupational Health Relationship Specialty Start Date End Date Nathalie Bain MD [address] [place] [address] PCP - General Family Medicine 06/28/16 12/20/21 documented as of this encounter
--- OUTSIDE RECORDS SUMMARY | 2024-03-27 20:54 | XMS_ITS | Encounter Summary ---
[place] [address] Care Team Providers Care Interventional Pain Physician Name Role Phone Nathalie Bain MD Primary Care Provider Encounter Details Date Type Department Care Team (Late st Contact Info) Description 12/09/2020 Telephone [place] [address] Rossy Lerner Social History Tobacco Use Types [...] * Telephone Encounter - Rossy Lerner - 12/09/2020 4:46 PM EDT VM left with pt to sched next fuv with Dr. Nina Ryan in about 3 months (around 03/11/2021) for In Person. documented in this encounter Plan of Treatment Upcoming Encounters Date Type Department Care Team (Late st Contact Info) Description 05/15/2024 1:00 PM EDT TH Visit (TeleHealth) [place] [address] Pasha Wood MD [facility] [place] [place] [address] documented as of this encounter Visit Diagnoses Not on filedocumented in this encounter Care Teams Interventional Pain Physician Relationship Specialty Start Date End Date Nathalie Bain MD [address] [place] [address] PCP - General Family Medicine 06/28/16 12/20/21 documented as of this encounter
--- OUTSIDE RECORDS SUMMARY | 2024-03-27 20:54 | XMS_ITS | Encounter Summary ---
Author Organization [facility] [place] [address] Care Team Providers Care Customer Relations Consultant Name Role Phone Bell Navarrete MD Primary Care Provider [phone] Reason for Visit * Reason Comments Post Hospital Discharge Encounter Details Date Type Department Care Team (Late st Contact Info) Description 06/17/2014 2:30 PM EST Office Visit [place] [address] Gt Peng MD [facility] [place] [address] Endometrial cancer Discharge Disposition: Home Social History Tobacco Use [...] Sign Reading Time Taken Comments Blood Pressure - - Pulse 105 06/17/2014 2:03 PM EST Temperature 36.6 ??C (97.9 ??F) 06/17/2014 2:03 PM ES T Respiratory Rate 18 06/17/2014 2:03 PM EST Oxygen Saturation 100% 06/17/2014 2:03 PM EST Inhaled Oxygen Concentration - - Weight 103.9 kg (229 lb) 06/17/2014 2:03 PM EST Height - - Body Mass Index 41.22 05/26/2014 5:36 PM EDT documented in this encounter Progress Notes * Salvador Jang MD - 06/17/2014 3:02 PM EST Division [place] [address] Postoperative Visit: Patient Active Problem List Diagnosis Code ??? S/P thyroidectomy V45.89 ??? Thyroid cancer 193 ??? Hypothyroidism 244.9 ??? Complex endometrial hyperplasia with atypia 621.33 ??? Endometrial cancer 182.0 Subjective: Page Katz returns to the office today for her postoperative visit. On 05/26/14 she underwent a open supracervical hysterectomy, BSO, pelvic washings of complex atypical hyperplasia. Intraoperative findings included a right hydrosalpinx densely adherent to the small bowel on the right posterior pelvis. Her postoperative course was uncomplicated. She has been doing well since surgery aside from bladder discomfort and urgency. She also reports that she has been having some pain in the RLQ below her ostomy site. She has stopped taking narcotic pain medications and is having regular bowel movements through her ostomy. Her energy level is improving and she is eating well. She denies fevers, chills, dysuria, incisional concerns, abdominal pain, vaginal bleeding, nausea, vomiting or diarrhea. Page did become teary eyed at this visit. All of the surgery that she has had on her abdomen and pelvis have caused her to feel less of a person. She is trying to get back to her old activities however but is more fatigued than usual. She plans on cooking for her family at [facility]. Objective: Filed Vitals: 06/17/14 1403 Pulse: 105 Temp: 36.6 ??C (97.9 ??F) TempSrc: Oral Resp: 18 Weight: 103.874 kg (229 lb) SpO2: 100% Body mass index is 41.19 kg/(m^2). There is no height on file to calculate BSA. Physical Exam Constitutional: She is oriented to person, place, and time. She appears well- developed and well-nourished. Cardiovascular: Normal rate, regular rhythm and normal heart sounds. Pulmonary/Chest: Effort normal and breath sounds normal. Abdominal: Soft. She exhibits no distension. There is no tenderness. There is no rebound and no guarding. Ostomy intact and well appearing. Midline incision healing well. Small area of granulation tissue, treated with silver nitrate. Non-tender, no masses, guarding, or rebound tenderness. No indication of hernia. Genitourinary: Cervix visualized. Normal discharge, no bleeding. Vulva normal, urethral meatus normal. Neurological: She is alert and oriented to person, place, and time. Skin: Skin is warm and dry. Surgical Pathology: Grade 1, Stage 1A, endometrial carcinoma, endometrioid type Assessment and Plan: Page Katz is a 63 y.o. with stage 1A, grade 1 endometrial carcinoma. She is doing well postoperatively and is advised that she may resume full activities at 6 weeks postoperatively. I reviewed her pathology with her and have given her copies of her pathology report and operative note for her records. Given her diagnosis of early stage, low grade endometrial cancer, she is at low risk of recurrence,<5% over the remainder of her lifetime and thus no adjuvant therapy is advised at this time, specifically, no chemotherapy or radiation. Recommendations for surveillance of low risk disease (stage IA, grade 1 or 2) include follow-up visits every 6 months for one year and yearly thereafter. These visits will include pelvic exam with visualization of the vaginal apex as well as a bimanual/rectovaginal exam. [Current Society of Gynecologic Oncologists (SGO) Surveillance Guidelines: Posttreatment surveillance and diagnosis of recurrence in women with gynecologic malignancies: Society of Gynecologic Oncologists recommendations (Erika, et al; AJOG, December 2010)]. 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 Rey. I will remain available should any questions or concerns arise. It was recommended at tumor board that she see genetic counseling due to her history of colon and uterine cancer, Tran syndrome. Her family history otherwise is only significant for ulcerative colitis. We will get mutation testing on the surgical specimen which was discussed with the patient and she agreed. Will send urine for culture. U/a dip in office likely contaminant. Will follow- up with Madison Pink for her routine follow-up care, including pap smears. Additionally, the association of endometrial cancer with obesity was addressed and in accordance with NCI guidelines, she was offered a referral to a dietitian to help with weight loss and she is interested in pursuing this. SALVADOR JANG MD I have seen and examined the patient and reviewed and edited the resident's above history and I agree with the details as written. The assessment and plan were formulated in discussion with me and I agree with them as documented. Gt Peng MD documented in this encounter Plan of Treatment Upcoming Encounters Date Type Department Care Team (Late st Contact Info) Description 05/15/2024 1:00 PM EDT TH Visit (TeleHealth) [place] [address] Pasha Wood MD [facility] [place] [address] documented as of this encounter Procedures Procedure Name Priority Date/Time Associated Diagnosis Comments URINE CULTURE Routine 06/17/2014 3:33 PM EST Endometrial cancer documented in this encounter Results * Urine culture Clean Catch Urine (06/17/2014 3:33 PM EST) Urine Culture ? Patient Name: PAGE KATZ ? Ordered By: GT PENG ? MR#: [id number] ?LOC: ??3K ? /Sex: ??1950 (63 years), ? Female ? PROCEDURE: Urine Culture ?SOURCE: U CC ? COLLECTED: 06/17/2014 15:33 ? STARTED: 06/17/2014 19:01 ? FINAL REPORT ? Final Report ? Verified:2013 15:02 ? 1,000-9,000 cfu/ml Gram Positive organisms , probable contaminant ? LORINER RADHAENNIUM Urine specimen obtained by clean catch procedure (specimen) 06/17/2014 3:33 PM EST 06/17/2014 7:01 PM EST Narrative Resulting Agency Comment Spec In Lab Gt Peng MD MICROBIOLOGY - GENER AL ORDERABLES [facility] MAYES documented in this encounter Visit Diagnoses Diagnosis Endometrial cancer Malignant neoplasm of corpus uteri, except isthmus documented in this encounter Care Teams Customer Relations Consultant Relationship Specialty Start Date End Date Bell Navarrete MD [address] [place] [address] PCP - General 06/21/10 06/27/16 documented as of this encounter
--- OUTSIDE RECORDS SUMMARY | 2024-03-27 20:54 | XMS_ITS | Encounter Summary ---
Author Organization [facility] [place] [address] Care Team Providers Care Photoresist Contact Printer Name Role Phone Nathalie Bain MD Primary Care Provider Encounter Details Date Type Department Care Team (Late st Contact Info) Description 09/29/2020 Orders Only [place] [phone] Pasha Wood MD [facility] [place] [address] Seronegative rheumatoid arthritis Social History Tobacco Use [...] EDT TH Visit (TeleHealth) [place] [phone] Pasha Wood MD [facility] [place] [address] documented as of this encounter Visit Diagnoses Diagnosis Seronegative rheumatoid arthritis Rheumatoid arthritis documented in this encounter Care Teams Photoresist Contact Printer Relationship Specialty Start Date End Date Nathalie Bain MD [address] [place] [address] PCP - General Family Medicine 06/28/16 12/20/21 documented as of this encounter
--- OUTSIDE RECORDS SUMMARY | 2024-03-27 20:54 | XMS_ITS | Encounter Summary ---
Author Organization [facility] [place] [address] Care Team Providers Care Chart Calculator Name Role Phone Nathalie Bain MD Primary Care Provider Reason for Visit * Reason Comments Follow-up SNRA Encounter Details Date Type Department Care Team (Latest Contact Info) Description 12/09/2020 10:30 AM EDT TH Visit (TeleHealth) [place] [address] Pasha Wood MD [facility] [place] [address] Seronegative rheumatoid arthritis Social History Tobacco Use [...] * Patient Instructions* Pasha Wood MD - 12/09/2020 10:30 AM EDT Continue prednisone 4 mg daily. Continue methotrexate 20 mg weekly. Continue folic acid 1 mg daily. Try to get methotrexate monitoring labs this week. documented in this encounter Progress Notes * Pasha Wood MD - 12/09/2020 10:30 AM EDT This is a telemedicine visit that was performed with the originating site at that patients home address (please see electronic health record for applicable address) and the distant site at my [facility] office. Verbal consent to participate in telephone visit was obtained by Pasha Wood MD or the roomingassistant as documented in their note. This visit [...] a 70 y.o. female returns today for f/u of [...] by Dr. Dharmesh Cummings who was a burner tender emeritus at [facility]. He confirmed the diagnosis of [...] Stiffness in the MCPs especially. 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 Has other aches and pains yet not [...] June. Also saw Dr. Pasha Govea at [facility] podiatry and had nailbed surgery [...] most recent laboratory tests were done at [facility] 2020. I checked in the electronic medical record and they have not yet arrived. Review of Systems: Had PA for Remicade yet did not start this. She is concerned about the risk of developing malignancy. She has also been concerned given the pandemic She previously used Remicade for inflammatory bowel disease. Of late has been feeling more fatigued with brain fog. Reports depressed feelings HEENT: No mouth sores. No facial rash. Hydroxychloroquine stopped due to hair thinning Joints have been better on 5 mg of prednisone. [...] 2 days a week ??? aspirin (S[employer] ASPIRIN) 81 mg chewable tablet ??? acetaminophen (TYLENOL) 325 mg Tablet Take 650 mg by mouth every 4 hours as needed for Pain. ??? levothyroxine (SYNTHROID) 150 mcg tablet Take 1 tablet by mouth daily. (Patient not taking: Reported on 09/09/2020) 90 tablet 3 ??? Qkzhzturqfytx-Lu-Efuw-Minerals (ONE-A-DAY WOMENS FORMULA) 27-0.4 mg Tab (Patient [...] 1. Seronegative rheumatoid arthritis: By symptoms she is improved after increasing prednisone to 5 mg daily. She is also continuing to take methotrexate 20 mg weekly and is supplementing with folic acid 1 mg daily. She is at the 3- month ayaz since her most recent laboratory testing for methotrexatemonitoring. I have asked for her most recent laboratory tests which were done 09/13/2020 to be sent to our attention. I will be setting up standing lab orders at [facility]. I will be watching liver function tests very carefully given her diagnosis of nonalcoholic fatty liver disease and use of methotrexate. I had previously recommended use of a biologic DMARD as this would additionally be safer for her liver and also would most likely allow us to have her stop prednisone. In the meantime I have recommended that she try to decrease prednisone to 4 mg daily and perhaps try to slowly taper this off entirely. 2. NAFLD (nonalcoholic fatty liver disease): As above. 3. Vitamin D deficiency: She will continue her vitamin D supplementation and her multivitamin. I previously recommended increasing vitamin D intake by 1000 international units daily. Goal is 40-60 for vitamin D. I previously also recommended dietary calcium. Plan: Continue methotrexate 20 mg weekly. Methotrexate monitoring labs within 1 week at [facility]. I recommended trying to taper prednisone down to 4 mg daily documented in this encounter Plan of Treatment Upcoming Encounters Date Type Department Care Team (Late st Contact Info) Description 05/15/2024 1:00 PM EDT TH Visit (TeleHealth) [place] [address] Pasha Wood MD [facility] [place] [address] documented as of this encounter Visit Diagnoses Diagnosis Seronegative rheumatoid arthritis Rheumatoid arthritis documented in this encounter Care Teams Chart Calculator Relationship Specialty Start Date End Date Nathalie Bain MD [address] [place] [address] [address] [facility] [address] [place] [address] PCP - General Family Medicine 06/28/16 12/20/21 documented as of this encounter
--- OUTSIDE RECORDS SUMMARY | 2024-03-27 20:54 | XMS_ITS | Encounter Summary ---
[place] [address] Care Team Providers Care Chronic Condition Nurse Name Role Phone Bell Navarrete MD Primary Care Provider [phone] Encounter Details Date Type Department Care Team (Late st Contact Info) Description 05/13/2014 4:40 PM EDT Clinical Support [place] [phone] Social History Tobacco Use Types Packs/Day Years Used Date Smoking Tobacco: Never Smokeless Tobacco: Never Alcohol Use Standard Drinks/Week Comments No 0 (1 standard drink = 0.6 oz pur e alcohol) Sex and Gender Information Value Date Recorded Sex Assigned at Not on file Gender Identity Not on file Sexual Orientation Not on file documented as of this encounter Progress Notes * William Townsend RN - 05/13/2014 5:03 PM EDT PAT questionnaire reviewed with patient while in Pre Admission testing. Patient has had anesthesia in the past without complications. Patient states has instructions from surgeons office regarding preoperative bowel prep. Pre-operative instruction booklet reviewed. Patient verbalizes a good understanding of all information. PLAN Testing: Blood work done at [facility] Special medication instructions: Instructed to stop asa 1 week pre op Bowel prep per Procedure date: 05-26-14 documented in this encounter Plan of Treatment Upcoming Encounters Date Type Department Care Team (Late st Contact Info) Description 05/15/2024 1:00 PM EDT TH Visit (TeleHealth) [place] [address] Pasha Wood MD [facility] [place] [address] documented as of this encounter Visit Diagnoses Not on filedocumented in this encounter Care Teams Chronic Condition Nurse Relationship Specialty Start Date End Date Bell Navarrete MD [address] [place] [address] PCP - General 06/21/10 06/27/16 documented as of this encounter
--- OUTSIDE RECORDS SUMMARY | 2024-03-27 20:54 | XMS_ITS | Encounter Summary ---
Author Organization [facility] [place] [address] Care Team Providers Care Engineering Document Control Clerk Name Role Phone Nathalie Bain MD Primary Care Provider Reason for Visit * Reason Comments Skin Check Encounter Details Date Type Department Care Team (Late st Contact Info) Description 06/28/2016 10:45 AM EST Office Visit Dermatology at [facility] [address] [place] [address] Chris Villatoro MD [facility] [address] [place] [address] Common wart; SK (seborrheic keratosis); Clavus; AK (actinic keratosis) Social History Tobacco Use Types Packs/Day Years Used Date Smoking Tobacco: Never Smokeless Tobacco: Never Alcohol Use Standard Drinks/Week Comments No 0 (1 standard drink = 0.6 oz pur e alcohol) Sex and Gender Information Value Date Recorded Sex Assigned at Not on file Gender Identity Not on file Sexual Orientation Not on file documented as of this encounter Progress Notes * Chris Villatoro MD - 06/28/2016 10:45 AM EST DERMATOLOGY NEW PATIENT CLINIC NOTE Date of service: 06/28/2016 Name: Page Katz Age: 65 y.o. Sex: female : 1950 Provider: Chris Villatoro MD New patient to myself and to clinic. Self-referred to today's appointment for evaluation and management of the problem described below. SHANNON Ktaz is a 65 y.o. year old female, here today for evaluation of irritated lesion left lower eyelid, first identified for several months. Sore at times. Requests full skin examination. Nopersonal or family history of dysplastic nevi or melanoma. No history of skin cancer. SKIN HX: No history skin cancer/skin disease FAMILY SKIN HISTORY: No family history of any skin cancers. Family history psoriasis- father ADR: Allergies Allergen Reactions ??? Other [Unclassified Drug] Other (See Comments) Pain Patch(drug unknown) Fentanyl- confused hallucinations MEDS: Current Outpatient Prescriptions Medication Sig Dispense Refill [...] CHILDRENS ASPIRIN) 81 mg chewable tablet ??? Rrafbeasntjyw-Qz-Lpfr-Minerals (ONE-A-DAY WOMENS FORMULA) 27-0.4 mg Tab No current facility-administered medications for this visit. ROS General: feeling well Skin: denies other skin complaints EXAM General: NAD, pleasant, cooperative Skin: Patient was asked to disrobe to the level of their comfort. A total body skin exam except forareas covered by underwear was performed. This includes examination of the skin of the face, ears, neck, chest, axillae, left and right upper and lower extremities, hands and feet, abdomen, and except the areas covered by underwear were not examined. Significant skin findings: A. Left cheek (1) inflamed, slightly crusted (traumatized) wart (lesion of concern) B. Trunk and extremities - multiple seborrheic keratosis C. Left foot between the 4th and 5th toes - corn D. Left cheek (2) - actinic keratosis ASSESSMENT/PLAN: A. Wart - I discussed this condition with the patient and explored therapeutic options. I recommended this be treated with LN2, patient is in agreement to this treatment plan. Instructed to call if areas do not resolve as expected or if problems arise. If lesions fail to resolve, further work-up may be needed. Procedure Note: Procedure: Destruction of lesion(s) with cryotherapy. Number: 1 Location: as above Discussed procedure and expectations including risks (including risk of hypopigmentation) and benefits. Verbal consent obtained. There were no complications; the patient tolerated the procedure well.Post-procedure expectations and wound care were reviewed. B. Seborrheic Keratosis (nonsymptomatic) - Discussed benign nature of lesion and provided reassurance -Treatment of an asymptomatic seborrheic keratosis is considered a cosmetic procedure and is not covered by insurance. C. Clavus - I discussed this condition with the patient and explored therapeutic options. Recommendations: - Pare down D. Actinic Keratosis - I discussed this condition with the patient and explored therapeutic options. I recommended this be treated with LN2, patient is in agreement to this treatment plan. Instructedto call if areas do not resolve as expected or if problems arise. If lesions fail to resolve, further work-up may be needed. Procedure Note: Procedure: Destruction of lesion(s) with cryotherapy. Number: 2 Location: as above Discussed procedure and expectations including risks (including risk of hypopigmentation) and benefits. Verbal consent obtained. There were no complications; the patient tolerated the procedure well.Post-procedure expectations and wound care were reviewed. RTC: PRN. Instructed to call if problems arise. Note initiated by RALPH AGUILAR, Clinical Scribe has performed the documentation for this encounter in the presence of and acting as a scribe for Dr. Villatoro. I performed the above scribed service and agree with the accuracy of the documentation in this encounter. Chris Villatoro MD Section of Dermatology [facility] documented in this encounter Plan of Treatment Upcoming Encounters Date Type Department Care Team (Late st Contact Info) Description 05/15/2024 1:00 PM EDT TH Visit (TeleHealth) [place] [address] Pasha Wood MD [facility] [place] [place] [address] documented as of this encounter Visit Diagnoses Diagnosis Common wart Other specified viral warts SK (seborrheic keratosis) Other seborrheic keratosis Clavus Corns and callosities AK (actinic keratosis) Actinic keratosis documented in this encounter Care Teams Engineering Document Control Clerk Relationship Specialty Start Date End Date Nathalie Bain MD [address] [place] [address] PCP - General Family Medicine 06/28/16 12/20/21 documented as of this encounter
--- OUTSIDE RECORDS SUMMARY | 2024-03-27 20:54 | XMS_ITS | Encounter Summary ---
[place] [address] Care Team Providers Care Healthcare Sales Representative Name Role Phone Nathalie Bain MD Primary Care Provider Reason for Visit * Reason Onset Date Comments Appointment 09/09/2020 Encounter Details Date Type Department Care Team (Late st Contact Info) Description 09/09/2020 Telephone [place] [address] Lucian Mace, RN Appointment Social History Tobacco Use Types Packs/Day Years [...] encounter Miscellaneous Notes * Telephone Encounter - Lucian Mace RN - 09/09/2020 11:18 AM EST Page calls to report she missed [facility] appointment and wants to reschedule. documented in this encounter Plan of Treatment Upcoming Encounters Date Type Department Care Team (Late st Contact Info) Description 05/15/2024 1:00 PM EDT TH Visit (TeleHealth) [place] [address] Pasha Wood MD [facility] [place] [address] documented as of this encounter Visit Diagnoses Not on filedocumented in this encounter Care Teams Healthcare Sales Representative Relationship Specialty Start Date End Date Nathalie Bain MD [address] [place] [address] PCP - General Family Medicine 06/28/16 12/20/21 documented as of this encounter
--- OUTSIDE RECORDS SUMMARY | 2024-03-27 20:54 | XMS_ITS | Encounter Summary ---
[place] [address] Care Team Providers Care Telegraph Office Route Aide Name Role Phone Nathalie Bain MD Primary Care Provider Reason for Visit * Reason Onset Date Comments Labs Only 12/10/2020 Encounter Details Date Type Department Care Team (Late st Contact Info) Description 12/10/2020 Telephone [place] [address] Boom Grant, RN Labs Only Social History Tobacco Use [...] Telephone Encounter - Boom Grant RN - 12/10/2020 4:06 PM EDT Patient update on message from provider, expressed understanding. * Telephone Encounter - Boom Grant RN - 12/10/2020 4:06 PM EDT ----- Message from Pasha Wood MD sent at 12/10/2020 2:31 PM EDT ----- Please let Page know that I have reviewed her laboratory tests. Overall they look fine. documented in this encounter Plan of Treatment Upcoming Encounters Date Type Department Care Team (Late st Contact Info) Description 05/15/2024 1:00 PM EDT TH Visit (TeleHealth) [place] [address] Pasha Wood MD [facility] [place] [address] documented as of this encounter Visit Diagnoses Not on filedocumented in this encounter Care Teams Telegraph Office Route Aide Relationship Specialty Start Date End Date Nathalie Bain MD [address] [place] [address] PCP - General Family Medicine 06/28/16 12/20/21 documented as of this encounter
--- OUTSIDE RECORDS SUMMARY | 2024-03-27 20:54 | XMS_ITS | Encounter Summary ---
Author Organization [facility] [place] [address] Care Team Providers Care Calculation Reviewer Name Role Phone Bell Pereira MD Primary Care Provider [phone] Encounter Details Date Type Department Care Team (Late st Contact Info) Description 05/26/2014 7:30 AM EDT - 05/26/2014 11:29 AM EDT [place] [phone] Gt Montana MD [facility] [place]EC[place] [address] @HYSTERECTOMY, TOTAL ABD., W W/O BSO (WRVU 17.31) Social History Tobacco Use Types Packs/Day Years [...] Sign Reading Time Taken Comments Blood Pressure 164/94 05/29/2014 8:20 AM EDT Pulse 68 05/29/2014 8:20 AM EDT Temperature 37 ??C (98.6 ??F) 05/29/2014 8:20 AM EDT Respiratory Rate 18 05/29/2014 8:20 AM EDT Oxygen Saturation 98% 05/29/2014 8:20 AM EDT Inhaled Oxygen Concentration - - Weight 108.4 kg (239 lb) 05/26/2014 5:36 PM EDT Height 158.8 cm (5' 2.5) 05/26/2014 5:36 PM EDT Body Mass Index 43.02 05/26/2014 5:36 PM EDT documented in this encounter Discharge Instructions * Patient Instructions* Bibi Worley PA - 05/27/2014 3:59 PM EDT PATIENT DISCHARGE INSTRUCTIONS Gynecology Oncology phone number: [phone] -Follow-up- staple removal 06/08/14, 11:30AM -Follow-up with [...] Care Everywhere. * HYSTERECTOMY: ABDOMINAL : POSTOP (IRISH) documented in this encounter Medications at Time of Discharge Medication Sig Dispensed Refills Start Date End Date levothyroxine (SYNTHROID) 125 mcg Tablet Take 125 mcg by mouth daily. 2 days a week Tzbtzityhuqgh-Wn-Hksb-M inerals (ONE-A-DAY WOMENS FORMULA) 27-0.4 mg Tab [...] Dotty Richardson - 05/29/2014 6:31 AM EDT Screen Printing Paster/Onc Progress Note: Patient ID: Ms. Paul Adames is a 63 y.o. year old woman with hypertension, obesity (BMI 43), crohn's disease, colon cancer, thyroid cancer/hypothyroidism, and polymyalgia rheumatica who is postoperative day #4 s/p abdominal supracervical hysterectomy/BSO via vertical midline laparotomy for atypical complex hyperplasia, possible focus of FIGO grade 1 endometrial cancer on frozen section. [id number]. Interval Events - Anxiety overnight, received Ativan [...] [phone] Recent Labs Basename 05/29/14 0338 05/28/145 05/27/14 0345 NA 144 143 136 K [...] Status: Full code DOTTY RICHARDSON MD PGY-2 Screen Printing Paster/Onc service pager [phone] * Jazzmine Cornejo RN - 05/29/2014 4:34 AM EDT Problem: [...] Montana MD - 05/28/2014 6:53 AM EDT Screen Printing Paster/Onc Progress Note: Patient ID: Ms. Paul Adames is a 63 y.o. year old woman with hypertension, obesity (BMI 43), crohn's disease, colon cancer, thyroid cancer/hypothyroidism, and polymyalgia rheumatica who is postoperative day #0 s/p abdominal supracervical hysterectomy/BSO via vertical midline laparotomy for atypical complex hyperplasia, possible focus of FIGO grade 1 endometrial cancer on frozen section. [id number]. Interval Events - Anxiety overnight, received Ativan 1 mg - Epidural accidentally pulled out, and due to increased pain overnight, dilaudid CHOKE SETTER temporarily restarted S: Patient reports pain well controlled on CHOKE SETTER and has used minimally, along with tylenol [...] Intake/Output Summary (Last 24 hours) at 05/28/14 0671 Last data filed at 05/28/14 0400 Gross [...] SCDs in place Labs: Recent Labs Basename 05/28/1432405/27/14344 WBC 13.7* 18.0* HGB 9.2* 10.1* HCT [...] detail: Neuro: Pain well controlled with dilaudid CHOKE SETTER, tylenol, and ibuprofen. Epidural out last evening. Alert/oriented. No issues. -- Increased oxycodone dose to 5-15 mg, discontinue CHOKE SETTER now Cardiovascular/Heme: Hemodynamically stable, no evidence of [...] Status: Full code DOTTY RICHARDSON MD PGY-2 Screen Printing Paster/Onc service pager [phone] I have seen and examined the patient and reviewed and edited the resident's above history and I agree with the details as written. The assessment and plan were formulated in discussion with me and I agree with them as documented. Gt Montana MD * Tori Hamilton - 05/27/2014 7:10 PM EDT Acute Pain [...] (1.25 mg/ml) infusing at 5 mls/hour Dilaudid CHOKE SETTER 0.1-5-4 mg (2.8 mg used since surgery [...] and epidural tubing from patient. Discussed restarting CHOKE SETTER for overnight coverage. Plan discussed with patient/RN/team. Please call with any questions or concerns. TORI HAMILTON MD 05/27/2014 Pager # [phone] * Aixa Connelly MD - 05/27/2014 11:52 [...] (1.25 mg/ml) infusing at 5 mls/hour Dilaudid CHOKE SETTER 0.1-5-4 mg (2.8 mg used since surgery) [...] notes. PHIL FARIA RN 05/27/2014 Pager # [phone] I performed the above scribed service and agree with the accuracy of the note. AIXA CONNELLY MD * Gt Montana MD - 05/27/2014 6:58 AM EDT Screen Printing Paster/Onc Progress Note: Patient ID: Ms. Paul Adames is a 63 y.o. year old woman with hypertension, obesity (BMI 43), crohn's disease, colon cancer, thyroid cancer/hypothyroidism, and polymyalgia rheumatica who is postoperative day #0 s/p abdominal supracervical hysterectomy/BSO via vertical midline laparotomy for atypical complex hyperplasia, possible focus of FIGO grade 1 endometrial cancer on frozen section. [id number]. Interval Events - Anxiety overnight, received Ativan S: Patient is doing well and without complaint. Pain controlled with dilaudid CHOKE SETTER, IV tylenol, toradol and epidural. She has [...] Pain well controlled with epidural, toradol, dilaudid CHOKE SETTER, IV tylenol, and epidural. Alert/oriented. No issues. - Discontinue CHOKE SETTER when tolerating diet today, start oxycodone Cardiovascular/Heme: [...] Status: Full code DOTTY RICHARDSON MD PGY-2 Screen Printing Paster/Onc service pager [phone] I have seen and examined the patient and reviewed and edited the resident's above history and I agree with the details as written. The assessment and plan were formulated in discussion with me and I agree with them as documented. Gt Montana MD * Celeste Cooper RN - 05/26/2014 5:28 PM EDT Patient arrived to [facility], room 114 @ 1700. Report received from JOSEPH Malik in PACU. Oriented to room, call carmichael, and bed controls. Patient demonstrates understanding. Vital signs stable. Patient reports good pain control with epidural and CHOKE SETTER. Will continue to monitor. * Gt Montana MD - 05/26/2014 2:30 PM EDT Screen Printing Paster/Onc Postop Check Note: Patient ID: Ms. Paul Adames is a 63 y.o. year old woman with hypertension, obesity (BMI 43), crohn's disease, colon cancer, thyroid cancer/hypothyroidism, and polymyalgia rheumatica who is postoperative day #0 s/p abdominal supracervical hysterectomy/BSO via vertical midline laparotomy for atypical complex hyperplasia, possible focus of FIGO grade 1 endometrial cancer on frozen section. [id number]. Interval Events - Intra-op findings: right hydrosalpinx, right and left adnexa adherent to the small bowel in the pelvis, absent rectum and colon, small uterus with a left broad ligament fibroid. Frozen section: mainly complex hyperplasia with possible foci of noninvasive endometrial adenocarcinoma S: Patient is doing well and without complaint. Pain controlled with dilaudid CHOKE SETTER, IV tylenol and toradol. She has tolerated [...] Neuro: Pain well controlled on toradol, dilaudid CHOKE SETTER, IV tylenol, and epidural. Alert/oriented. No issues [...] Status: Full code Kadeem Palomo MD PGY4 Screen Printing Paster/Onc service pager [phone] * Flavio Soto RN - 05/26/2014 1:13 PM EDT 1210 - Pt admitted to PACU 22 from OR. Pt admitted to monitors, alarms set per patient. Pt denies nausea. Rating pain 8/10 in right lower quadrant. Medicated per SEP. Abd dressing C/D/I. Colostomy in place with scant output. Epidural infusing @ 5cc/hr. 1240 - CHOKE SETTER teaching performed. Pt able to demonstrate use. [...] of same. 1630 - Pt transferred to [facility] in stable condition. documented in this encounter H&P Notes * Kadeem Plaomo MD - 05/26/2014 6:06 AM EDT Inpatient LOSS PREVENTION REPRESENTATIVE - Admission Interval Note I have reviewed [...] 05/30/2014 12:00 AM EDTAssociated Order(s): SCAN DOC: PARTS COUNTER SPECIALIST * Provider, Scanning - 05/30/2014 12:00 AM [...] Paul Adames Patient Age: 63 y.o. Language: Jordanian Race: White Ethnicity: Not nor Admit date: 05/26/2014 Discharge date and time: 05/29/2014 Attending Physician: Gt Montana MD Discharge Physician: Gt Montana MD Follow-up Recommendations for Providers: -Staple removal 06/08 Inpatient Provider Contact Information: [facility] [employer] [facility] Gynecologic Oncology, Discharge Diagnoses (Hospital Problems) and [...] 1 Continued medications, unchanged Dose Details SHELTON LINDO ASPIRIN 81 mg Chew (Ask your doctor [...] how to take this medication.) Generic drug: Tynyrwuqrskha-Aq-Byuq-Minerals Refills: 0 potassium chloride 10 mEq Tbsr [...] PATIENT DISCHARGE INSTRUCTIONS Gynecology Oncology phone number: [phone] -Follow-up- staple removal 06/08/14, 11:30AM -Follow-up with [...] Phone: Center: 06/08/2014 11:30 AM Onc Nurse Screen Printing Paster Gynecologic Oncology [phone] None 06/17/2014 2:30 PM Gt Montana MD Gynecologic Oncology [phone] None Discharge References/Attachments HYSTERECTOMY: ABDOMINAL : POSTOP (IRISH) Provider Contact Information: BELL PEREIRA MD [phone] * Plan of Care - Isael Soto [...] (see interventions, notes) Pt remains with Dilaudid CHOKE SETTER pump present this shift, with positive efficacy [...] in urine - MD notified and aware. CHOKE SETTER initially discontinued, however restarted due to the epidural becoming disconnected. Patient remains on Dilaudid CHOKE SETTER, please view MAR for specific settings. PRN [...] Pt states pain worsens with movement. Dilaudid CHOKE SETTER remains with positive efficacy reported after using [...] place running at 5 ml/hr and dilaudid CHOKE SETTER, settings: 0.1 mg CHOKE SETTER dose/ 5 min lockout/ 4 mg 4-hr [...] Operative Note Patient Name: Paul Adames : [id number] MR#: [id number] Case Date: 05/26/2014 Surgeon: Surgeon(s) and Role: [...] fashion in the dorsal lithotomy position in [facility]. A time out was performed with all [...] accessible and was cut free using the Stna scissors. The specimen was sent to Pathology with the above findings. The posterior aspects where the scissors had been used on the cervix were cauterized using the Bovie. There was venous bleeding of the right aspect near branches of the uterine vessels. An attempt was made to control this using surgical clips and the Bovie without success. A single 2-0 Vicryl xydggs-ry-bjmdv suture was then placed in this site [...] surgical instrument counts were done as per [facility] [place] policy. A postprocedural plain x-ray was [...] Operative Note Patient Name: Paul Adames : [id number] MR#: [id number] Case Date: 05/26/2014 Surgeon: Surgeon(s) and Role: [...] PM EDT TH Visit (TeleHealth) [place] [address] Pasha Wood MD [facility] [place] [address] Pending Results Name Type Priority Associated Diagnoses [...] Procedure Name Priority Date/Time Associated Diagnosis Comments PARTS COUNTER SPECIALIST SCAN 05/30/2014 12:00 AM EDT ECG SCAN [...] TO PATHOLOGY Routine 05/26/2014 9:53 AM EDT NON-BUS SYSTEM OPERATOR FINAL REPORT Routine 05/26/2014 9:13 AM EDT CYTOPATHOLOGY NON-GYNECOLOGICAL Routine 05/26/2014 8:59 AM EDT @HYSTERECTOMY, TOTAL ABD., W W/O BSO (WRVU 17.31) 05/26/2014 7:54 AM EDT COMPLEX HYPERPLASIA POCT GLUCOSE Routine 05/26/2014 7:43 AM EDT documented in this encounter Results * SCAN DOC: PARTS COUNTER SPECIALIST (05/30/2014 12:00 AM EDT) Anatomical Region Laterality [...] intervals supplied above were not validated at [facility]. Results from pediatric patients should be interpreted [...] the following links into your internet browser. [email or web address] Blood specimen (specimen) 05/29/2014 3:38 AM EDT 05/29/2014 4:11 AM EDT Narrative Resulting Agency Comment Spec In Lab Gt Montana MD CHEMISTRY ORDERABLES Performing Organization Address [facility] de Phone Number CERNER MILLENNIUM * Magnesium (05/28/2014 3:25 AM EDT) Magnesium 0.75 0.69 - 1.07 mmol/L CERNER MILLENNIUM Blood specimen (specimen) 05/28/2014 3:25 AM EDT 05/28/2014 3:48 AM EDT Narrative Resulting Agency Comment Spec In Lab Gt Montana MD CHEMISTRY ORDERABLES Performing Organization Address [facility] de Phone Number CERNER RADHAENNIUM * (ABNORMAL) Hemogram (05/28/2014 3:25 AM EDT) [...] intervals supplied above were not validated at [facility]. Results from pediatric patients should be interpreted [...] the following links into your internet browser. [email or web address] Blood specimen (specimen) 05/28/2014 3:25 AM EDT 05/28/2014 3:48 AM EDT Narrative Resulting Agency Comment Spec In Lab Gt Montana MD CHEMISTRY ORDERABLES Performing Organization Address [facility] Co de Phone Number CERNER MILLENNIUM * (ABNORMAL) Magnesium (05/27/2014 3:45 AM EDT) Magnesium 0.64(L) 0.69 - 1.07 mmol/L CERNER MILLENNIUM Blood specimen (specimen) 05/27/2014 3:45 AM EDT 05/27/2014 3:56 AM EDT Narrative Resulting Agency Comment Spec In Lab Gt Montana MD CHEMISTRY ORDERABLES Performing Organization Address [facility] Co de Phone Number CERNER MILLENNIUM [...] intervals supplied above were not validated at [facility]. Results from pediatric patients should be interpreted [...] the following links into your internet browser. [email or web address] Blood specimen (specimen) 05/27/2014 3:45 AM EDT 05/27/2014 3:56 AM EDT Narrative Resulting Agency Comment Spec In Lab Gt Montana MD CHEMISTRY ORDERABLES [employer]A [employer] * XR abdomen 1 view (05/26/2014 11:56 [...] EDT 05/26/2014 10:24 AM EDT Narrative TERESA MAYES - 05/26/2014 10:24 AM EDT Specimen requisition ordered. ??Separate Pathology report to follow Gt Montana MD PATHOLOGY/CYTOLOGY O BRANDON Performing Organization Address [facility] de Phone Number [facility] * Specimen to Pathology (surgical or derm) (05/26/2014 10:12 AM EDT) AP Specimen 05/26/2014 10:1 2 AM EDT 05/26/2014 10:12 AM EDT Narrative TERESA GARCIAEMILIOFORMERLY [facility] - 05/26/2014 10:12 AM EDT Specimen requisition ordered. ??Separate Pathology report to follow Gt Montana MD PATHOLOGY/CYTOLOGY O RDFELIPE Performing Organization Address [facility] de Phone Number [facility]AD[facility] * Surgical Pathology Report (05/26/2014 10:07 AM EDT) Final Diagnosis 00- [id number] ? Location: 1WST; 0114; A The signing [...] congested brown and smooth serosa. SECTIONS/PROCESSI NG: Referral Nurse sections are submitted. (A1-A2) ovary with portion of fallopian tube and adjacent nodule; (A3-A4) Referral Nurse section of ovary; (A5) Referral Nurse fallopian tube; (A6) manufacturer's service representative larger, attached fibroid nodule. (R6) B [...] Not present with this specimen. SECTIONS/PROCESSI NG: Referral Nurse sections from the polypoid mass and anterior [...] description not recorded. Whole slide scan: [id number] [id number] S [id number] S [id number] [id number] Diagnosis A - Left ovary and [...] studies, if any. 05/28/2014 11:02 AM EDT [facility] OVARIAN PART / Unknown 05/26/2014 10:07 AM EDT 05/26/2014 10:07 AM EDT Uterine Corpus 05/26/2014 10 :07 AM EDT 05/26/2014 10:07 AM EDT OVARIAN PART / Unknown 05/26/2014 10:07 AM EDT 05/26/2014 10:07 AM EDT Gt Montana MD PATHOLOGY/CYTOLOGY O RDERABLES Performing Organization Address City/[facility] Co de Phone Number [facility] [place] [phone] * Frozen Section Report (05/26/2014 10:07 AM EDT) Frozen Section Report ? [facility] ? Provider: ?? GT [place] ?? Pt. Name: ?? PAUL ADAMES ? Acc #: ?[id number] ?Pt. ? Col Date: ?? 05/26/2014 ?/Sex: [...] MD PATHOLOGY/CYTOLOGY O BRANDON Performing Organization Address [facility] Co de Phone Number TERESA MAYES * Specimen to Pathology (surgical or derm) (05/26/2014 9:53 AM EDT) AP Specimen 05/26/2014 9:53 AM EDT 05/26/2014 9:53 AM EDT Narrative TERESA MAYES - 05/26/2014 9:53 AM EDT Specimen requisition ordered. ??Separate Pathology report to follow Gt Montana MD PATHOLOGY/CYTOLOGY O BRANDON Performing Organization Address [facility] Co de Phone Number TERESA MAYES * Non-Screen Printing Paster Final Report (05/26/2014 9:13 AM EDT) Diagnosis Discussion ? [facility] ? Provider: ?? GT [place] ?? Pt. Name: ?? PAUL ADAMES ? Acc #: ?[id number] ?Pt. ? Col Date: ?? 05/26/2014 ?/Sex: ?1950,(63 years),Female ? Rec Date: ?? 05/26/2014 ?LOC: ?1WST ? CYTOPATHOLOGY: ??NGYN ? ---Adequacy--- ? Specimen submitted is less than optimal. ??See Comment. ? ---Cytopathologi c Diagnosis--- ? See Comment ? 05/27/14 ?Screened by: ? LMY ? Rescreened by: ?? SKG,BUILDING CUSTODIAL SUPERVISOR, ? 05/27/14 ?Verified by: ? PEPPER [...] Cell Block 1. 05/27/2014 1:37 PM EDT [facility] Pelvic Washing 05/26/2014 9: 13 AM EDT 05/26/2014 9:13 AM EDT Gt Montana MD PATHOLOGY/CYTOLOGY O BRANDON Performing Organization Address [facility] Co de Phone Number TERESA RADHAEMILIOGRACE [facility] [place] [address] * Cytopathology Non-Gynecological (05/26/2014 8:59 AM EDT) AP Specimen 05/26/2014 8:59 AM EDT 05/26/2014 8:59 AM EDT Narrative TERESA RADHAPARRISH - 05/26/2014 8:59 AM EDT Specimen requisition ordered. ??Separate Pathology report to follow Gt Montana MD PATHOLOGY/CYTOLOGY O BRANDON Performing Organization Address [facility] de Phone Number TERESA MAYES * (ABNORMAL) POCT Glucose (05/26/2014 7:43 AM EDT) Glucose, POC 41(L) 60 - 199 mg/dL TERESA RADHAEMILIOFORMERLY [facility] Comment: Supplemental ranges: <140 mg/dL before meals <180 mg/dL all other times of the day Blood specimen (specimen) 05/26/2014 7:43 AM EDT 05/26/2014 7:43 AM EDT Gt Montana MD POINT OF CARE TEST O BRANDON Performing Organization Address [facility] de Phone Number TERESA DELGADOFORMERLY [facility] documented in this encounter Visit Diagnoses Not [...] RN) 0552 (Given - Provider: Jazzmine Cornejo RN)1219 (Given - Provider: Isael Soto [...] 1047 (Given - Provider: Isael Soto RN) magnesium oxide (MAG-OX) tablet 400 mg (COMPLETED) 400 mg, Oral, 2 TIMES DAILY, 2 doses, First dose on Sun05/27/14 at 1000, Last dose on Sun05/27/14 at 2100, Routine 1023 (Given - Provider: Elena Blanton RN)2028 (Given - Provider: Jazzmine Cornejo RN) magnesium oxide (MAG-OX) tablet 400 mg (COMPLETED) 400 mg, Oral, ONCE, 1 dose, On Sun05/29/14 at 1200, Routine 1047 (Given - Provider: Isael Soto RN)1200 (Due) [...] 905 (Given - Provider: Elena Blanton RN) 09 (Given - Provider: Isael Soto RN) 0910 (Given - Provider: Isael Soto RN) senna-docusate (PERICOLACE) 8.6-50 mg per tablet 1-4 tablet 1-4 tablet, Oral, 2 TIMES DAILY, First dose on Sun05/26/14 at 2100, Until Discontinued, Start with 1 tablet or liquid equivalent orally twice daily and titrate up to achieve: 1. One bowel movement at least every 48 hours, AND 2. Without straining, Routine 09 (Given - Provider: Elena Blanton RN)2028 (Given - Provider: Jazzmine Cornejo RN) 09 (Given - Provider: Isael Soto RN)2008 (Given - Provider: Jazzmine Cornejo RN) 0918 (Given - Provider: Isael Soto, RN) sodium chloride 0.9 % flush 5 [...] Comment: Epidural disconnected) HYDROmorphone (DILAUDID) 1 mg/mL CHOKE SETTER 30 mL (CANCELED) Intravenous, CHOKE SETTER ONLY, Starting on Sun05/26/14 at 1300, Until Sun05/27/14 at 1705, Recovery (Recovery-Hospital Unit) 0903 (Rate/Dose Verify - Provider: Elena Blanton RN)1732 (Stopped - Provider: Elena Blanton RN) 0909 (Stopped - Provider: Isael Soto RN) HYDROmorphone (DILAUDID) 1 mg/mL CHOKE SETTER 30 mL (CANCELED) Intravenous, CHOKE SETTER ONLY, Starting on Sun05/27/14 at 1930, Until [...] 1825, Until Sun05/29/14 at 1308, Anxiety, Routine 2008 (Given - Provider: Jazzmine Cornejo RN) oxyCODONE (ROXICODONE) immediate release tablet 5-10 mg (CANCELED) 5-10 mg, Oral, EVERY 3 HOURS PRN, Starting on Sun05/27/14 at 1103, Until Margarita 05/28/14 at 0648, Pain, Routine 1420 (Given - Provider: Elena Blanton RN)1820 (Given - Provider: Elena Blanton RN)2300 (Given - Provider: Jazzmine Cornejo, JOSEPH) oxyCODONE (ROXICODONE) immediate release tablet 5-15 mg 5-15 mg, Oral, EVERY 3 HOURS PRN, Starting on Sun05/28/14 at 0648, Until Sun05/29/14 at 1308, Pain, Routine 1315 (Given - Provider: Isael Soto RN)1754 (Given - Provider: Isael Soto RN)2116 (Given - Provider: Jazzmine Cornejo RN) 0910 [...] Oral, TWICE WEEKLY (Once per day on Sun), First dose on Sun05/30/14 at 0600, Until Discontinued, Sunday and Sunday, Routine documented in this encounter Care Teams Calculation Reviewer Relationship Specialty Start Date End Date Bell Pereira MD [address] [place] [address] PCP - General 06/21/10 06/27/16 documented as of this encounter
--- OUTSIDE RECORDS SUMMARY | 2024-03-27 20:54 | XMS_ITS | Encounter Summary ---
Author Organization [facility] [place] [address] Care Team Providers Care Apprentice Photographer Name Role Phone Bell Navarrete MD Primary Care Provider Encounter Details Date Type Department Care Team (Late st Contact Info) Description 08/20/2013 9:30 AM EST - 08/20/2013 11:59 PM [facility] Hospital [place] [id number] Kidney stone Social History Tobacco Use Types Packs/Day Years Used Date Smoking Tobacco: Never Alcohol Use Standard Drinks/Week Comments No 0 (1 standard drink = 0.6 oz pur e alcohol) Sex and Gender Information Value Date Recorded Sex Assigned at Not on file Gender Identity Not on file Sexual Orientation Not on file documented as of this encounter Medications at Time of Discharge Medication Sig Dispensed Refills Start Date End Date Wngtolsgephal-Qa-Owve-Mi nerals (ONE-A-DAY WOMENS FORMULA) 27-0.4 mg Tab 08/19/2009 potassium chloride (K-DUR/KLOR-CON) 10 mEq extended release tablet Take 10 mEq by mouth 2 times daily. 10/27/2015 meloxicam (MOBIC) 7.5 mg tablet Take 15 mg by mouth daily. 05/29/2014 levothyroxine (SYNTHROID) 150 mcg tablet Take 1 tablet by mouth daily. 90 tablet 3 02/01/2012 06/08/2022 PREDNISOLONE ORAL Take 4 mg by mouth daily. 10/27/2015 hydrochlorothiazide (HYDRODIURIL) 25 mg tablet 08/19/2009 05/13/2014 aspirin ([facility] ASPIRIN) 81 mg chewable tablet 08/19/2009 07/16/2023 sertraline (ZOLOFT) 100 mg tablet 50MG = 1 Tablet(s), PO, Once daily 08/19/2009 05/13/2014 documented as of this encounter Plan of Treatment Upcoming Encounters Date Type Department Care Team (Late st Contact Info) Description 05/15/2024 1:00 PM EDT TH Visit (TeleHealth) [place] [address] Pasha Wood MD [facility] [place] [address] documented as of this encounter Procedures Procedure Name Priority Date/Time Associated Diagnosis Comments US RETROPERITONEAL COMPLETE Routine 08/20/2013 10:17 AM EST Kidney stone documented in this encounter Results * US retroperitoneal complete (08/20/2013 10:17 AM EST) Anatomical Region Laterality Modality Abdomen Ultrasound 08/20/2013 10:1 7 AM EST Narrative 08/20/2013 10:47 AM EST ? Renal ? (Signed Final 08/20/2013 10:46 am) Patient Info ID: ? [id number] ? : ??50 (62 yrs) Name: ? PAGE KATZ ? Visit Date: 08/20/2013 10:13 am Performed By Performed By: ?Marija SCOTT, ??Huong Associate: ? Eloy LU, Abiola Attending: ? Shalini LU, Jessica Zamarripa Referred By: ? INESSA ALONZO MD Service(s) Provided URETRO - Retroperitoneal Complete - [id number] ? [id number] Indications History of kidney stones Comparison Noncontrast CT abdomen/pelvis, 06/20/13. Right Kidney Size (cm) ?L: ??13.1 Cortical Thickness: ?Normal Cortical Echogenicity: ?? Normal Hydronephrosis: ?No sonographic evidence Comment: ?No renal calculi seen. ? Simple upper pole cyst measuring 1 cm Left Kidney Size (cm) ?L: ??12.1 Cortical Thickness: ?Normal Cortical Echogenicity: ?? Normal Hydronephrosis: ?No sonographic evidence Comment: ?No renal calculi seen. Urinary Bladder Pre-void (cm) ? L: ??3.2 ? AP: ??4.7 ? TV: ??5 Vol (ml): ?39.4 Comment: ?Grossly unremarkable for degree of distention. Impression Ultrasound - ??Retroperitoneal Complete - Summary No hydronephrosis or sonographically evident renal calculi. 1 cm simple right upper pole cyst. Bladder grossly unremarkable for degree of distention. I ??viewed the images and agree with the above interpretation. Thank you for allowing us to participate in the care of PAGE KATZ. Please do not hesitate to call if you have any questions. ? Jessica Loya MD Electronically Signed Final Report ?? 08/20/2013 10:46 am Film and interpretation reviewed by the attending Procedure Note Jessica Loya MD - 08/20/2013 Renal (Signed Final 08/20/2013 10:46 am) Patient Info ID: [id number] : 50 (62 yrs) Name: PAGE KATZ Visit Date: 08/20/2013 10:13 am Performed By Performed By: Huong Dutton RDMS Associate: Abiola Lyons MD Attending: Jessica Loya MD Referred By: INESSA ALONZO MD Service(s) Provided URETRO - Retroperitoneal Complete - [id number] Indications History of kidney stones Comparison Noncontrast CT abdomen/pelvis, 06/20/13. Right Kidney Size (cm) L: 13.1 Cortical Thickness: Normal Cortical Echogenicity: Normal Hydronephrosis: No sonographic evidence Comment: No renal calculi seen. Simple upper pole cyst measuring 1 cm Left Kidney Size (cm) L: 12.1 Cortical Thickness: Normal Cortical Echogenicity: Normal Hydronephrosis: No sonographic evidence Comment: No renal calculi seen. Urinary Bladder Pre-void (cm) L: 3.2 AP: 4.7 TV: 5 Vol (ml): 39.4 Comment: Grossly unremarkable for degree of distention. Impression Ultrasound - Retroperitoneal Complete - Summary No hydronephrosis or sonographically evident renal calculi. 1 cm simple right upper pole cyst. Bladder grossly unremarkable for degree of distention. I viewed the images and agree with the above interpretation. Thank you for allowing us to participate in the care of PAGE KATZ. Please do not hesitate to call if you have any questions. Jessica Loya MD Electronically Signed Final Report 08/20/2013 10:46 am Film and interpretation reviewed by the attending Inessa Alonzo Jr., MD IMG US GEN ORDERAB LES documented in this encounter Visit Diagnoses Diagnosis Kidney stone Calculus of kidney documented in this encounter Care Teams Apprentice Photographer Relationship Specialty Start Date End Date Bell Navarrete MD [address] [place] [address] PCP - General 06/21/10 06/27/16 documented as of this encounter
--- OUTSIDE RECORDS SUMMARY | 2024-03-27 20:54 | XMS_ITS | Encounter Summary ---
[place] [address] Care Team Providers Care Drying Room Attendant Name Role Phone Nathalie Bain MD Primary Care Provider Encounter Details Date Type Department Care Team (Late st Contact Info) Description 03/24/2021 Telephone [place] [phone] Lucian Mace RN Social History Tobacco Use [...] Telephone Encounter - Lucian Mace RN - 03/24/2021 4:22 PM EDT Images from the original note were not included. Rossy Lerner A ?? 3:14 PM Note Patient called back to book a follow up, however requested to know in regards to biotin, supplementshe was told to take, she isnt sure what dose to take. When she went to buy it there was a 5000 sheila 10,000 option. She requests a nurse call her back and let her know the correct one to take ?? Pasha Wood MD sent to Rafus, Mauna L, RN Caller: Unspecified (2 days ago, 11:02 AM) 5000 Advised Page 5000 of Biotin daily. documented in this encounter Plan of Treatment Upcoming Encounters Date Type Department Care Team (Late st Contact Info) Description 05/15/2024 1:00 PM EDT TH Visit (TeleHealth) [place] [address] Pasha Wood MD [facility] [place] [address] documented as of this encounter Visit Diagnoses Not on filedocumented in this encounter Care Teams Drying Room Attendant Relationship Specialty Start Date End Date Nathalie Bain MD [address] [place] [address] PCP - General Family Medicine 06/28/16 12/20/21 documented as of this encounter
--- OUTSIDE RECORDS SUMMARY | 2024-03-27 20:55 | XMS_ITS | Encounter Summary ---
Author Organization [facility] [place] [address] Care Team Providers Care Iron Guardrail Installer Name Role Phone Bell Navarrete MD Primary Care Provider [phone] Encounter Details Date Type Department Care Team (Late st Contact Info) Description 04/03/2012 External [place] [address] Gilmer Wilson MD [address] [place] [id number] Social History Tobacco Use Types Packs/Day Years Used Date Smoking Tobacco: Never Sex and Gender Information Value Date Recorded Sex Assigned at Not on file Gender Identity Not on file Sexual Orientation Not on file documented as of this encounter Plan of Treatment Upcoming Encounters Date Type Department Care Team (Late st Contact Info) Description 05/15/2024 1:00 PM EDT TH Visit (TeleHealth) [place] [address] Pasha Wood MD [facility] [place] [address] documented as of this encounter Procedures Procedure Name Priority Date/Time Associated Diagnosis Comments TSH Routine 03/25/2012 documented in this encounter Results * TSH (03/25/2012) Thyroid Stimulating Hormone 1.12 Blood specimen (specimen) 03/25/2012 Gilmer Wilsno MD CHEMISTRY ORDERABLES documented in this encounter Visit Diagnoses Not on filedocumented in this encounter Care Teams Iron Guardrail Installer Relationship Specialty Start Date End Date Bell Navarrete MD [address] [place] [address] PCP - General 06/21/10 06/27/16 documented as of this encounter
--- OUTSIDE RECORDS SUMMARY | 2024-03-27 20:55 | XMS_ITS | Referral Summary ---
Author Organization [facility] Address [address] [place] [address] Care Team Providers Care Junior Web Developer Name Role Phone Latha Aguirre MD Primary Care Provider Unavailable Encounters Date Type Department Care Team Description 03/27/2024 Lab Requisition [facility] Pathology & Laboratory Medicine - [facility] [address] [place] [address] Outr Resulting Lab, Provider from Last 3 Months Allergies Active Allergy Reactions Criticality Noted Date Comments Atorvastatin 03/20/2019 Other reaction(s): elevated LFTs Fentanyl 03/20/2019 Other reaction(s): altered mental status Medications Medication Sig Dispensed Refills Start Date End Date Status hydroCHLOROthiazide (HYDRODIURIL) 12.5 mg tablet Take 2 Tablets by mouth daily. Active losartan (COZAAR) 100 mg tablet Take 1 Tablet by mouth daily. Active acetaminophen (TYLENOL) 500 mg tablet Take 1 Tablet by mouth 2 times daily as needed for Pain. Active levothyroxine (SYNTHROID) 125 mcg tablet Take 1 Tablet by mouth daily. Active DULoxetine (CYMBALTA) 60 mg capsule Take 1 Capsule by mouth daily. Active cholecalciferol, Vitamin D3, 1,000 unit tablet Take 1 Tablet by mouth daily. Active uilhmnkw-mizf-HE-rachana cium-mins 18 mg iron-400 mcg-500 mg Ca tablet Take by mouth. 08/19/2009 Active aspirin chewable 81 mg tablet Take 1 Tablet by mouth daily. 08/19/2009 Active predniSONE (DELTASONE) 1 mg tablet TAKE TWO TABLETS BY MOUTH EVERY DAY 60 Tab 3 02/13/2020 Active Additional Information Patient taking differently: TAKE 2 TABLETS BY MOUTH EVERY DAY, Reported on 10/24/2021 DULoxetine (CYMBALTA) 30 mg delayed release capsule TAKE 1 CAPSULE (30MG) BY MOUTH IN THE MORNING 06/18/2020 Active folic acid (FOLVITE) 1 mg tablet Take 800 mcg by mouth daily. Active BIOTIN ORAL Take 10,000 mcg by mouth daily. Active Adalimumab (HUMIRA) 20 mg/0.4 mL syringe kit Inject 20 mg into the skin every 14 days. Active clopidogreL (PLAVIX) 75 mg tablet Take 1 Tablet by mouth daily. 07/16/2023 Active metoprolol SUCCinate (TOPROL-XL) 50 mg tablet Take 1 Tablet by mouth daily. 10/12/2023 Active nitroglycerin (NITROSTAT) 0.[address] 1 Tablet under the tongue PRE-OP Q 5 MINUTES. 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 50 mL 4 12/12/2023 Active Active Problems Problem Noted Date Diagnosed Date Seronegative rheumatoid arthritis ([facility]) 05/31 Myalgia 06/19/2019 Vitamin D deficiency 06/19/2019 Depression 06/19/2019 Essential hypertension 06/19/2019 Acquired hypothyroidism 06/19/2019 Thyroid cancer ([facility]) 06/19/2019 Obesity (BMI 30-39.9) 06/19/2019 Colon cancer ([facility]) 06/19/2019 Social History Tobacco Use Types Packs/Day Years Used Date Smoking Tobacco: Never Smokeless Tobacco: Never Tobacco Cessation:Counseling Given: Not Answered Interpersonal Safety Answer Date Record ed Physically Hurt Never 02/29/2020 Verbally Threaten Not on file 02/29/2020 Sex and Gender Information Value Date Recorded Sex Assigned at Not on file Gender Identity Female 10/14/2021 11:22 EDT Sexual Orientation Not on file Last Filed Vital Signs Vital Sign Reading Time Taken Comments Blood Pressure 144/82 04/29/2020 1000 EDT Pulse 95 11/24/2021 1450 EDT Temperature 36.4 ??C (97.5 ??F) 11/24/2021 1450 EDT Respiratory Rate - - Oxygen Saturation 98% 11/24/2021 1450 EDT Inhaled Oxygen Concentration - - Weight 99.3 kg (219 lb) 06/21/2020 0943 EST Height 158.8 cm (5' 2.5) 06/21/2020 0943 EST Body Mass Index 39.42 06/21/2020 0943 EST Functional Status Functional Status Response Date of Assess ment Because of a physical, menta l, or emotional condition, does this person have difficulty doing errands alone such as visiting a doctor's office or shopping? No 03/16/2020 Cognitive Status Response Date of Assessm ent Because of a physical, menta l, or emotional condition, does this person have serious difficulty concentrating, remembering, or making decisions? No 03/16/2020 Plan of Treatment Upcoming Encounters Date Type Department Care Team (Late st Contact Info) Description 12/17/2024 13:00 EDT Office Visit [facility] Dermatology [address] [place] [address] Maci Rand MD [address] [place] [address], [facility] [address] [place] [address] Care Teams Junior Web Developer Relationship Specialty Start Date End Date Latha Aguirre MD [address] [place] [address] PCP - General Family Medicine - Primary Care 12/06/22
--- OUTSIDE RECORDS SUMMARY | 2024-03-27 20:55 | XMS_ITS | Encounter Summary ---
Author Organization Formerly [facility] [place] [address] Care Team Providers Care Insurance Advisor Name Role Phone Bell Fernandez MD Primary Care Provider [phone] Encounter Details Date Type Department Care Team (Latest Contact Info) Description 10/13/2011 9:32 AM EDT - 10/14/2011 11:41 AM EDT Hospital Encounter [place] [id number] Rick Card MD [facility] [place] [address] Discharge Disposition: Home Social History Tobacco Use Types Packs/Day Years Used Date Smoking Tobacco: Never Sex and Gender Information Value Date Recorded Sex Assigned at Not on file Gender Identity Not on file Sexual Orientation Not on file documented as of this encounter Last Filed Vital Signs Vital Sign Reading Time Taken Comments Blood Pressure 140/68 10/14/2011 7:26 AM EDT Pulse 76 10/14/2011 7:26 AM EDT Temperature 36.7 ??C (98.1 ??F) 10/14/2011 7:26 AM ED T Respiratory Rate 14 10/14/2011 7:26 AM EDT Oxygen Saturation 93% 10/14/2011 7:26 AM EDT Inhaled Oxygen Concentration - - Weight 105.7 kg (233 lb) 10/13/2011 11:10 AM EDT Height 157.5 cm (5' 2) 10/13/2011 11:10 AM EDT Body Mass Index 42.62 10/13/2011 11:10 AM EDT documented in this encounter Discharge Instructions * Patient Instructions* Constanza Chappell MD - 10/13/2011 1:09 PM EDT Instructions following Thyroid or Parathyroid Surgery What to Expect Following Surgery: Swelling and/or bruising under and around the incision is normal. It is usually greatest on the second or third day following surgery. You may also feel the sensation of swelling or firmness that canlast for a month or more Your scar will be most visible for 1-2 months following your operation and will gradually fade overthe next 6-8 months. As it heals, a scar looks more pink or red than the skin around it. You may feel a ???healing ridge?? directly under the incision. This is normal and will go away when healing is complete in 3-6 months. The skin just above and below your incision will feel numb. This will improve over several months but some patients may have long-term decrease in sensation over these areas You may notice minor difficulty in swallowing which will improve over time. Your voice may be hoarse or weak at first--because the surgery was near the voice box--but usually recovers over several weeks Incision Care: Keep dressing on your incision for the next 2 days, then you may remove dressing and leave incisionopen to air. Remove dressing and replace with dry gauze if it becomes saturated or wet in the next 2 days, replace as needed. If there are pieces of tape directly on the skin (steri-strips), please leave them on until they fall off on their own. You may trim them back as they peel up, or just remove them after 2 weeks. Once dressing is removed in 2 days you may shower and get incision wet. Pat dry immediately following. Do not scrub area vigorously for the next 2 weeks. Do not soak incision under water (i.e. bath or swimming) for the next 3 weeks to prevent a wound infection. Do not use any ointments/salves/Vitamin E on the incision until after your first follow-up appointment as these may impair early wound healing Incisions are sensitive to sunlight. For 1 year after surgery you should use sunscreen when outdoors for long periods of time to prevent permanent darkening of the scar. This includes tanning booths Diet & Activity: No restrictions in your diet are necessary. Activity as tolerated by your comfort level. You may return to work in 7 - 14 days or sooner if desired. NO DRIVING for at least 8 hours following any dose of an opioid pain medication if one was prescribed for you. Thyroid Hormone: If you had a thyroid operation, you may be prescribed thyroid hormone replacement (levothyroxine, synthroid, levothroid) to take daily. Usual starting dose is 125 mcg (micrograms) daily and we will give you an initial prescription for an 8 week supply. Take this at the same time each day. A blood test will performed at your first follow-up visit to ensure dosing is correct for you. Pain Management: Take NSAIDS like ibuprofen (motrin, advil), naproxen (Naprosyn, Aleve), or acetaminophen (Tylenol) every 6 hours for the first 3-5 days following surgery to help minimize pain. Use opioid (Percocet, Vicodin, Tylenol #3) pain medications for severe pain, and do not take with alcohol. To prevent Tylenol overdose do not take Tylenol doses within 4-6 hours before or after thesemedications (they contain Tylenol as well) Opioid medications typically cause constipation, so we suggest using a stool softener in addition (metamucil, colace...etc.) You may apply ice or cold packs to the incision for 15-20 minutes several times a day for the first2-3 days following surgery to help with discomfort You may feel some stiffness/soreness in your shoulders, back, and neck. This may take a few days orweeks to go away completely. You may use moist warm heat, heating pad, or massage to these areas for 15-20 minutes several times a day. Do not be afraid to move your neck - gently flexing and stretching your neck muscles and light massage will help prevent stiffness Pathology Report: All specimens removed at surgery are analyzed by a pathologist. This report usually takes 4 business days to be ready. Dr. Card will call you with this report as soon as it is available. Calcium Supplementation: Your body???s calcium levels may fall following a total thyroidectomy or parathyroid operation, which usually lasts only a few days. Take two 600 mg calcium citrate with vitamin D tablets of capsules (you can buy this over the counter at your pharmacy or grocery store) three times a day until you speak with Dr. Card about your path report. He will review your need to continue this at that time. If you notice a tingling sensation in your hands, feet, around your mouth, or develop muscle spasmsthen please call the General Surgery nurse at [phone], since this may mean that you need more calcium. Follow-up Appointment: Will be scheduled with Dr. Card in 6 weeks Date and time as well as any required labs will be mailed to you Please call [phone] to confirm date and time of your appointment if you do not hear from us inthe next 4 weeks Call Doctor for: Worsening redness or drainage from your incision lasting longer than 5 days following surgery Any foul-smelling drainage from the incision Fevers greater than 101 degrees F Persistent nausea or vomiting (this may be related to opioid pain medications) Tingling in your hands, feet or around your mouth, or muscle spasms not relieved by calcium supplementation. Phone number for questions: [phone] before 5 PM weekdays [phone] after 5 PM and on weekends/holidays * Attachments The following attachments cannot be sent through Care Everywhere. * THYROIDECTOMY: WHAT TO EXPECT AT HOME (ECUADOREAN) documented in this encounter Medications at Time of Discharge Medication Sig Dispensed Refills Start Date End Date Tsdonrgwyvhow-Sh-Wzmo-Mi nerals (ONE-A-DAY WOMENS FORMULA) 27-0.4 mg Tab 08/19/2009 OXYcodone (ROXICODONE) 5 mg immediate release tablet Take 1 tablet by mouth every 4 hours as needed for Pain. 25 tablet 0 10/13/2011 05/28/2013 levothyroxine (SYNTHROID) 125 mcg tablet Take 1 tablet by mouth daily. 30 tablet 12 10/13/2011 11/28/2011 PREDNISOLONE ORAL Take 4 mg by mouth daily. 10/27/2015 naproxen (NAPROSYN) 500 mg tabletIndications:Polymy algia rheumatica Take 1 tablet by mouth 2 times daily (with meals). 90 tablet 2 09/11/2011 05/28/2013 levothyroxine (LEVOXYL) 75 mcg tablet 08/19/2009 06/18/2013 olmesartan (BENICAR) 20 mg tablet 08/19/2009 05/28/2013 hydrochlorothiazide (HYDRODIURIL) 25 mg tablet 08/19/2009 05/13/2014 aspirin ([employer] ASPIRIN) 81 mg chewable tablet 08/19/2009 07/16/2023 sertraline (ZOLOFT) 100 mg tablet 50MG = 1 Tablet(s), PO, Once daily 08/19/2009 05/13/2014 documented as of this encounter Progress Notes * Rajiv Dugan RN - 10/14/2011 10:16 AM EDT The patient has met discharge criteria per policy. Discharge instruction reviewed and patient discharged to responsible adult. Patient???s pain level has been assessed and patient states that his/her level is tolerable at thistime. The After Visit Summary (AVS) and accompanying hand-outs have been reviewed with the patient; the patient verbalizes understanding at this time. Opportunity for clarification provided. All new medications have been reviewed with the patient and the appropriate hand-outs have been given to the patient. Reportable sign and symptoms have been reviewed with patient. * Noelle Eduardo RN - 10/14/2011 6:35 AM EDT Patient had a comfortable night with oral pain meds. taken at 0255. She has been up to ambulate several times to the bathroom and tolerated activity well. She is very steady on her feet. HYUN drain wasstriped twice during the night noting only a small amount of sanguinous drainage emptied from bulb at the end of the night. Occlusive neck dressing remains clean, dry, and intact without any drainagenoted on it. Oxygen saturation remained adequate after Oxygen turned off. Patient tolerating oral intake without difficulty. documented in this encounter H&P Notes * Rick Card MD - 10/12/2011 6:26 PM EDT H&P INTERVAL NOTE - 24 HOUR UPDATE I have reviewed the pre-procedure H&P completed by Bell fernandez MD on 09/28/11. Condition unchanged since H&P originally performed. documented in this encounter Miscellaneous Notes * Discharge Summary - Constanza Chappell MD - 10/17/2011 11:52 AM EDT Patient ready for discharge. * Miscellaneous - Provider, Scanning - 10/17/2011 11:04 AM EDT * Op Note - Constanza Chappell MD - 10/13/2011 3:44 PM EDT [facility] [place] Patient Name: Paul Katz : [id number] MR#: [id number] Case Date: 10/13/2011 Surgeon: Surgeon(s) and Role: * RICK CARD MD - Primary * CONSTANZA CHAPPELL MD - Resident-Surgeon Chief Preoperative diagnosis: MNG Postoperative diagnosis: MNG Procedure(s): THYROIDECTOMY, TOTAL OR COMPLETE FACIAL NERVE MONITORING, SETUP Anesthesia: General, Local Estimated Blood Loss: 15mL IVF: 1L crystaloid Drains: 7 mm HYUN via R neck entrance site Specimens: 1. Right lobe of thyroid 2. Left lobe of thyroid Findings: Diminutive right lobe of thyroid. Large left lobe of thyroid. The right recurrent laryngeal nerve was identified and protected throughout. The left recurrent laryngeal nerve was never clearly identified. Indications: 60 year old female first noted to have a thyroid nodule about 15 years ago. This was followed by annual exams and FNA x 2-3. FNA were consistent with MNG, and the nodule was stable in size. She was placed on exogenous T4 for TSH suppression. She moved and has been followed by Dr. Wilson. Recent US noted a size increase, and she has begun to have more compression symptoms from the nodule. Description of procedure: The patient was identified in the preoperative holding area where consent was confirmed. She was transported to the OR and placed in a supine position on the operating room table. After GETA was administered she was repositioned with arms tucked and neck slightly hyperextended, hips flexed with knees bent; head, arms, hands and knees were padded. The chin, neck and upper chest were then prepped an d draped in the usual sterile manner. An appropriate time out was performed. Laryngeal nerve monitor in place and functioning throughout case. A symmetric skin crease incision was made approximately 5cm above the sternal notch. This was deepened through the subcutaneous tissue and platysma with bovie electrocautery. Infraplatysmal flaps were developed cephalad above the thyroid cartilage, laterally to the sternocleidomastoid muscle bilaterally and inferiorly to the sternal notch with Bovie cautery. The sternohyoid and sternothyroid muscles were at the midline raphae and retracted laterally exposing the thyroid. The right thyroid was dissected by was displacing the thyroid gland medially and using Bovie catuery and Harmonic Scalpel, as well as clamps and ties. The middle thyroid vein was identified and a harmonic and silk tie were used for ligation. This allowed us to retract the lobe inframedially to expose the superior thyroid artery and vein. These were skeletonized, tied with silk and divided directly adjacent to the gland. The lobe was then retracted medially and the recurrent larygneal nerve identified. This was gently mobilized and protected. We used the nerve stimulator after each subsequent clamp and tie ligation to ensure this structured remained injury-free. The inferior thyroid artery and vein were then ligated and divided using Harmonic Scalpel and tied with silk suture. The right upper and lower parathyroid glands were identified, gently dissected free from the thyroid and left in situ with good perfusion. The thyroid isthmus was divided with Harmonic scalpel and the right lobe was handed off the field. The same dissection was then carried out on the contralateral side, again with recurrent laryngeal monitoring and protection. The left thyroid lobe was enlarged and surrounding tissues were attenuated, making identification of the left recurrent laryngeal nerve difficult. The posteromedial thyroid tissue was then dissected from the trachea. The isthmus was taken with the specimen. The lobe with its adjacent lenora tissue was removed and handed off for pathology. The upper and lower left parathyroids were again perserved in situ and determined to be viable and well-perfused after thyroid dissection. The left recurrent laryngeal neve was not clearly identified. We evaluated each side of the neck under 30mmHg valsalva and found hemostasis to be adequate. The patient was oozy throughout the case, with no single vascular source of bleeding, so a 7mm HYUN drainwas placed via a right neck stab incision and placed deep to the strap muscles. This was later placed to bulb suction. The strap muscles were reapproximated at midline with a running locking Monocryl. The platysma was reapproximated with a running, every-third locking stitch. The epidermis was reapproximated with running 4-0 subcuticular Monocryl stitch and a sterile dressing was placed. All counts were correct at the end of the procedure. Dr. Card was present and participated in the entirety of the procedure. Disposition: awakened from anesthesia, extubated and taken to the recovery room in a stable condition, having suffered no apparent untoward event. The patient was transferred to the PACU for observation stay in Short Stay Unit. Condition: Doing well without problems * OR Attestation - Rick Card MD - 10/13/2011 3:25 PM EDT Attestation: Case Date: 10/13/2011 I was present and I participated during the entire procedure (does not need to include opening and closing). RICK CARD MD 10/13/2011 * Brief Op Note - Rick Card MD - 10/13/2011 3:25 PM EDT Brief Operative Note Patient Name: Paul Katz : [id number] MR#: [id number] Case Date: 10/13/2011 Surgeon: Surgeon(s) and Role: * RICK CARD MD - Primary * CONSTANZA CHAPPELL MD - Resident-Surgeon Chief Preoperative diagnosis: MNG Postoperative diagnosis: MNG Procedure(s): THYROIDECTOMY, TOTAL OR COMPLETE FACIAL NERVE MONITORING, SETUP Anesthesia: General Estimated Blood Loss: 15ml Drains: 7 mm HYUN Disposition: awakened from anesthesia, extubated and taken to the recovery room in a stable condition, having suffered no apparent untoward event. Condition: doing well without problems (Please see the Surgical Encounter Summary for any Implant and Specimen details pertinent to this patient.) * Miscellaneous - Provider, Scanning - 10/13/2011 12:23 PM EDT documented in this encounter Plan of Treatment Upcoming Encounters Date Type Department Care Team (Late st Contact Info) Description 05/15/2024 1:00 PM EDT TH Visit (TeleHealth) [place] [address] Pasha Wood MD [facility] [place] [address] documented as of this encounter Procedures Procedure Name Priority Date/Time Associated Diagnosis Comments FACIAL NERVE MONITORING, SETUP Routine 10/16/2011 8:55 AM EDT SURGICAL PATHOLOGY REPORT Routine 10/13/2011 3:28 PM EDT SPECIMEN TO PATHOLOGY Routine 10/13/2011 3:06 PM EDT SPECIMEN TO PATHOLOGY Routine 10/13/2011 2:35 PM EDT FACIAL NERVE MONITORING, SETUP PERIPHERAL (WRVU 0.54) 10/13/2011 1:14 PM EDT MNG THYROIDECTOMY, TOTAL OR COMPLETE (WRVU 15.04) 10/13/2011 1:14 PM EDT MNG documented in this encounter Results * SURGICAL PATHOLOGY REPORT (10/13/2011 3:28 PM EDT) Surgical Pathology Report ? [facility] ? Provider: ?? RICK CARD Pt. Name: ?? PAUL KATZ ? Acc #: ?[id number] ?Pt. ? Col Date: ?? 10/13/2011 ? /Sex: ?1950,(60 years),Female ? Rec Date: ?? 10/13/2011 ? LOC: ?[facility] ? SURGICAL PATHOLOGY ? ---Pathologic Diagnosis--- ? Specimen: ?A - Right lobe of thyroid gland, hemithyroid. ?B - Left lobe of thyroid gland, hemithyroid. ? Histologic type: ? Papillary thyroid carcinoma ? Focality: ?Multifocal incidental foci ? Location(s): ? Left lobe - 2.5 mm (B4) ?Left lobe - 0.6 mm (B1) ?Right lobe - 0.7 mm (A2) - see comment ? Tumor capsule: ? none ? Vascular/lymphati c invasion: Not identified. ? Tumor Necrosis: ?Not identified. ? Extrathyroidal invasion: ? Not identified. ? Margin ? uninvolved ? Regional Lymph nodes: ?None ? TNM STAGING: ? pT1a(m) (AJCC, 7th ed., 2010) ? Other findings: ?1. ??Nodular hyperplasia with dominant left ? lobe nodule (6.0 cm). ? 2. ??Diffuse mild chronic lymphocytic (Nancy) thyroiditis. ? CR-0 ? 10/18/11 ? [facility] ? 10/20/11 Verified by: ? Robin DORaegan. ? Pathologist ? (Electronic Signature) ? The attending pathologist whose signature appears on this report has ? reviewed all diagnostic slides and has edited the gross and/or ? microscopic portion of the report in rendering the final pathologic ? diagnosis. ? ---Comment--- ? A few other sub-millimeter foci of atypia are present in the thyroid ? (A4,A5, B2). ??Step sections were examined and these other areas disappear. ? ---Microscopic Description--- ? Slides reviewed, microscopic description not recorded. ? ---Gross Description--- ? A - Labeled/Fixative: ? Right lobe thyroid, fresh. ? Qty/Size/Weight: ?One, 3.5 x 3.0 x 1.2 cm, 5 g. ? Tissue Description: ? One right thyroid lobe that has been inked black. ?External Surface: ?Purple-red, nodular. ? [facility] ? Provider: ?? RICK CARD Pt. Name: ?? PAUL KATZ ? Acc #: ?[id number] ?Pt. ? Col Date: ?? 10/13/2011 ? /Sex: ?1950,(60 years),Female ? Rec Date: ?? 10/13/2011 ? LOC: ?[facility] ? SURGICAL PATHOLOGY ?Parathyroid(s) ? Absent. ?Lesion: ?There are no lesions appreciated in the right ? thyroid lobe. ?Parenchyma: ?Red-brown, homogeneous, firm. ??No gross ? abnormalities appreciated. ? Sections/Processi ng: ?Five provider relations representative sections of right lobe ? submitted in (A1-A5). ??(R5) ? B - Labeled/Fixative: ? Left thyroid lobe, fresh. ? Qty/Size/Weight: ?One left lobe, 6.0 x 5.5 x 5.0 cm, 57 g. ? Tissue Description: ? One left thyroid lobe with isthmus attached. ?External Surface: ?Enlarged stretched nodular firm left thyroid lobe ? that has a cortez-yellow color. ?Parathyroid(s) ? Absent. ?Lesion: ?Involves the entire left side of the thyroid ? lobe. ? Size: ? 6.0 x 4.0 x 3.5 cm. ? Contour/Capsule: ?The cut surface of the lesion is cortez-yellow, ? firm, homogeneous with a focal area of hemorrhage ? appreciated. ??It is encapsulated and well ? circumscribed. ?Remaining parenchyma: ??The little normal remaining parenchyma is ? red-brown, homogeneous. ? Sections/Processi ng: ?(B1) provider relations representative section of isthmus; (B2-B10) ? provider relations representative sections of the lesion with ? black-inked capsule; (R11-13) remaining isthmus. ? (R13) ??aje/JESUS ALBERTO ? ---Clinical Information--- ? Specimen Submitted: ? A - Right lobe thyroid ? B - Left lobe thyroid ? Clinical History/Diagnosis : ? [facility] 10/13/2011 3:28 PM EDT Rick Card MD PATHOLOGY/CYTOLOGY ORDERABLES Performing Organization Address [facility] Co de Phone Number TERESA MAYES * Specimen to Pathology (surgical or derm) (10/13/2011 3:06 PM EDT) AP Specimen 10/13/2011 3:06 PM EDT 10/13/2011 3:06 PM EDT Narrative TERESA MAYES - 10/13/2011 3:06 PM EDT Specimen requisition ordered. ??Separate Pathology report to follow Rick Card MD PATHOLOGY/CYTOLOGY ORDERABLES Performing Organization Address [facility] Co de Phone Number [facility] * Specimen to Pathology (surgical or derm) (10/13/2011 2:35 PM EDT) AP Specimen 10/13/2011 2:35 PM EDT 10/13/2011 2:35 PM EDT Narrative TERESA MAYES - 10/13/2011 2:35 PM EDT Specimen requisition ordered. ??Separate Pathology report to follow Rick Card MD PATHOLOGY/CYTOLOGY ORDERABLES Performing Organization Address [facility] Co de Phone Number TERESA MAYES documented in this encounter Visit Diagnoses Not on filedocumented in this encounter Administered Medications Inactive Administered Medications - up to 3 most recent administrations Medication Order MAR Action Action Date Dose Rate Site calcium citrate (CALCITRATE) tablet 950 mg 950 mg, Oral, 3 TIMES DAILY PRN, Starting on Sun10/13/11 at 1757, Until 10/14/11 at 1343, perioral tingling or paresthesias., Routine Given 10/14/2011 8:55 AM EDT 950 mg hydrochlorothiazide (HYDRODIURIL) tablet 25 mg 25 mg, Oral, DAILY, First dose on Sun10/13/11 at 1815, Until Discontinued, Routine Given 10/14/2011 9:00 AM EDT 25 mg hydrocortisone (CORTEF) tablet 25 mg 25 mg, Oral, 2 TIMES DAILY, 2 doses, First dose on Sun10/13/11 at 2100, Last dose on 10/14/11 at 0900, Pt may take own medication as prescribed., Routine Given 10/14/2011 9:00 AM EDT 25 mg Given 10/13/2011 8:00 PM EDT 25 mg HYDROmorphone (DILAUDID) injection 0.2-0.4 mg 0.2-0.4 mg, Intravenous, EVERY 5 MIN PRN, Starting on Sun10/13/11 at 1530, Until Sun10/13/11 at 1711, Pain, For moderate pain give: 0.2 mg every 5 minute prn For severe pain give: 0.4 mg every 5 minutes prn Maximum dose: 4 mg per hour Hold for respiratory rate less than 10 per minute., PACU Recovery, Routine Given 10/13/2011 4:44 PM EDT 0.4 mg Given 10/13/2011 4:14 PM EDT 0.2 mg lactated ringers infusion 1,000 mL 1,000 mL, at 100 mL/hr, Intravenous, CONTINUOUS, Starting on Sun10/13/11 at 1145, Until Sun10/13/11 at 1802, Day of Surgery (Day of Procedure) New Bag 10/13/2011 11:47 AM EDT 1,000 mLs 100 mL/hr levothyroxine (SYNTHROID) tablet 125 mcg 125 mcg, Oral, EVERY MORNING, First dose on Sun10/14/11 at 0600, Until Discontinued, Routine Given 10/14/2011 6:00 AM EDT 125 mcg losartan (COZAAR) tablet 75 mg 75 mg, Oral, DAILY, First dose on Sun10/13/11 at 1830, Until Discontinued, Routine Given 10/14/2011 9:00 AM EDT 75 mg morphine 4 mg/mL carpuject 1-4 mg 1-4 mg, Intravenous, EVERY 4 HOURS PRN, Starting on Sun10/13/11 at 1845, Until Sun10/14/11 at 1343, Pain, Routine Given 10/13/2011 7:20 PM EDT 2 mg ondansetron (ZOFRAN-ODT) disintegrating tablet 4 mg 4 mg, Oral, EVERY 8 HOURS, First dose on Sun10/13/11 at 1815, Until Discontinued, Routine Given 10/14/2011 2:15 AM EDT 4 mg OXYcodone (ROXICODONE) immediate release tablet 5-10 mg 5-10 mg, Oral, EVERY 4 HOURS PRN, Starting on Sun10/13/11 at 1315, Until 10/14/11 at 1343, Pain, Routine Given 10/14/2011 2:56 AM EDT 10 mg Given 10/13/2011 10:40 PM EDT 10 mg Given 10/13/2011 6:00 PM EDT 10 mg prednisoLONE tablet 10 mg 10 mg, Oral, DAILY, First dose on Sun10/13/11 at 1815, Until Discontinued Given 10/14/2011 9:00 AM EDT 10 mg sertraline (ZOLOFT) tablet 50 mg 50 mg, Oral, DAILY, First dose on Sun10/13/11 at 1815, Until Discontinued, Routine Given 10/14/2011 9:00 AM EDT 50 mg documented in this encounter Active and Recently Administered Medications Times are shown in EDT. Scheduled Medication Order 10/12/2011 10/13/2011 10/14/2011 hydrochlorothiazide (HYDRODIURIL) tablet 25 mg (CANCELED) 25 mg, Oral, DAILY, First dose on Sun10/13/11 at 1815, Until Discontinued, Routine 1815 (Not Given - Provider: Delisa Treadwell RN - Reason: See comment - Comment: Patient took in am) 0900 (Given - Provider: Rajiv Dugan RN) hydrocortisone (CORTEF) tablet 25 mg (COMPLETED) 25 mg, Oral, 2 TIMES DAILY, 2 doses, First dose on Sun10/13/11 at 2100, Last dose on Sun10/14/11 at 0900, Pt may take own medication as prescribed., Routine 1999 (Given - Provider: Delisa Treadwell RN - Comment: Patient took own dose.) 0900 (Given - Provider: Rajiv Dugan RN) levothyroxine (SYNTHROID) tablet 125 mcg (CANCELED) 125 mcg, Oral, EVERY MORNING, First dose on Sun10/14/11 at 0600, Until Discontinued, Routine 0600 (Given - Provid er: Noelle Eduardo RN) losartan (COZAAR) tablet 75 mg (CANCELED) 75 mg, Oral, DAILY, First dose on Sun10/13/11 at 1830, Until Discontinued, Routine 1830 (Not Given - Provider: Delisa Treadwell RN - Reason: Patient/family refused) 0900 (Given - Provider: Rajiv Dugan, JOSEPH) ondansetron (ZOFRAN-ODT) disintegrating tablet 4 mg (CANCELED) 4 mg, Oral, EVERY 8 HOURS, First dose on Sun10/13/11 at 1815, Until Discontinued, Routine 181 (Not Given - Provider: Delisa Treadwell RN - Reason: Patient/family refused) 0215 (Given - Provider: Noelle Eduardo RN)1015 (Due) prednisoLONE tablet 10 mg (CANCELED) 10 mg, Oral, DAILY, First dose on Sun10/13/11 at 1815, Until Discontinued 1814 (Not Given - Provider: Delisa Treadwell RN - Reason: See comment - Comment: Already took this am) 0900 (Given - Provider: Rajiv Dugan, JOSEPH) sertraline (ZOLOFT) tablet 50 mg (CANCELED) 50 mg, Oral, DAILY, First dose on Sun10/13/11 at 1815, Until Discontinued, Routine 1814 (Not Given - Provider: Dleisa Treadwell RN - Reason: See comment - Comment: Took this am) 0900 (Given - Provider: Rajiv Dugan, JOSEPH) Continuous Medication Order 10/12/2011 10/13/2011 10/14/2011 lactated ringers infusion 1,000 mL (CANCELED) 1,000 mL, at 100 mL/hr, Intravenous, CONTINUOUS, Starting on Sun10/13/11 at 1145, Until Sun10/13/11 at 1802, Day of Surgery (Day of Procedure) 1147 (New Bag - Provider: Sa idalmis Hernández RN) PRN Medication Order 10/12/2011 10/13/2011 10/14/2011 BUpivacaine-epiNEPHrine 0.25 %-1:200,000 injection (CANCELED) ONCE PRN, Starting on Sun10/13/11 at 1345, Until Sun10/13/11 at 1802, Intra-Operative (Intra-Procedure), Routine 1345 (Given - Provider: Rick Card MD) calcium citrate (CALCITRATE) tablet 950 mg (CANCELED) 950 mg, Oral, 3 TIMES DAILY PRN, Starting on Sun10/13/11 at 1757, Until Sun10/14/11 at 1343, perioral tingling or paresthesias., Routine 0855 (Given - Provid er: Rajiv Dugan RN) HYDROmorphone (DILAUDID) injection 0.2-0.4 mg (CANCELED) 0.2-0.4 mg, Intravenous, EVERY 5 MIN PRN, Starting on Sun10/13/11 at 1530, Until 10/13/11 at 1711, Pain, For moderate pain give: 0.2 mg every 5 minute prn For severe pain give: 0.4 mg every 5 minutes prn Maximum dose: 4 mg per hour Hold for respiratory rate less than 10 per minute., PACU Recovery, Routine 1614 (Given - Provider: Trena Sen, JOSEPH)1644 (Given - Provider: Trena Sen RN) morphine 4 mg/mL carpuject 1-4 mg (CANCELED) 1-4 mg, Intravenous, EVERY 4 HOURS PRN, Starting on 10/13/11 at 1845, Until 10/14/11 at 1343, Pain, Routine 1920 (Given - Provider: Delisa Treadwell RN) OXYcodone (ROXICODONE) immediate release tablet 5-10 mg (CANCELED) 5-10 mg, Oral, EVERY 4 HOURS PRN, Starting on Sun10/13/11 at 1315, Until 10/14/11 at 1343, Pain, Routine 1800 (Given - Provider: Delisa Treadwell, JOSEPH)2240 (Given - Provider: Delisa Treadwell RN) 0256 (Given - Provider: Noelle Eduardo RN) documented in this encounter Care Teams Insurance Advisor Relationship Specialty Start Date End Date Bell Fernandez MD [address] [place] [address] PCP - General 06/21/10 06/27/16 documented as of this encounter
--- OUTSIDE RECORDS SUMMARY | 2024-03-27 20:55 | XMS_ITS | Encounter Summary ---
Author Organization [facility] [place] [address] Care Team Providers Care Content Architect Name Role Phone Bell Navarrete MD Primary Care Provider [phone] Encounter Details Date Type Department Care Team (Late st Contact Info) Description 03/25/2013 [place] [address] Robert Brooks MD [facility] [place] [address] Social History Tobacco Use Types Packs/Day Years [...] PM EDT TH Visit (TeleHealth) [place] [address] Pasha Wood MD [facility] [place] [address] documented as of this encounter Procedures Procedure Name Priority Date/Time Associated Diagnosis Comments FILM LIBRARY STORAGE ONLY CT ABDOMEN Routine 03/25/2013 9:50 AM EDT documented in this encounter Results * Film Library- Storage only CT Abdomen (03/25/2013 9:50 AM EDT) 03/25/2013 9:50 AM EDT Narrative RAD - 01/07/2014 2:56 PM EDT This is a non-reportable exam. Procedure Note Damian Richardson - 01/07/2014 This is a non-reportable exam. Robert Brooks MD [facility] FILM LIBRARY ORD ERABLES [facility] [address] [email or web address] [address] documented in this encounter Visit Diagnoses Not on filedocumented in this encounter Care Teams Content Architect Relationship Specialty Start Date End Date Bell Navarrete MD [address] [place] [address] PCP - General 06/21/10 06/27/16 documented as of this encounter
--- OUTSIDE RECORDS SUMMARY | 2024-03-27 20:55 | XMS_ITS | Encounter Summary ---
Author Organization [facility] Address [address] [place] [address] Care Team Providers Care Central Scheduler Name Role Phone Latha Aguirre MD Primary Care Provider Unavailable Reason for Visit * Reason Onset Date Comments Medication Questions 12/13/2023 clobetasol (TEMOVATE) 0.05 % external solution Encounter Details Date Type Department Care Team (Late st Contact Info) Description 12/13/2023 Telephone [facility] [address], [place] [address] Maci Rand MD [address] [facility], [facility] [address] [place] [address] Medication Questions (clobetasol (TEMOVATE) 0.05 % external solution) Social History Tobacco Use Types Packs/Day Years Used Date Smoking Tobacco: Never Smokeless Tobacco: Never Interpersonal Safety Answer Date Record ed Physically Hurt Never 02/29/2020 Verbally Threaten Not on file 02/29/2020 Sex and Gender Information Value Date Recorded Sex Assigned at Not on file Gender Identity Female 10/14/2021 11:22 EDT Sexual Orientation Not on file documented as of this encounter Functional Status Functional Status Response Date of [...] concentrating, remembering, or making decisions? No 03/16/2020 documented as of this encounter Miscellaneous Notes * Telephone Encounter - Jason Gallegos RN - 12/13/2023 1330 EDT Spoke with Pharmacist at [facility] in [place] and confirmed that clobetasol solution is the correct formulation to apply around stoma so can dry prior to application of barrier film (per 12/12/2023 visit note). Pharmacist voiced understanding. * Telephone Encounter - Mich Saavedra - 12/13/2023 1207 EDT Pharmacy called to verify whether prescribed clobetasol external solution is the correct form of medication for application needs. documented in this encounter Plan of Treatment Upcoming Encounters Date Type Department Care Team (Late st Contact Info) Description 12/17/2024 13:00 EDT Office Visit [facility] Dermatology [address], [place] [address] Maci Rand MD [address] [place] [address], [facility] [address] [place] [address] documented as of this encounter Visit Diagnoses Not on filedocumented in this encounter Care Teams Central Scheduler Relationship Specialty Start Date End Date Latha Aguirre MD [address] [place] [address] PCP - General Family Medicine - Primary Care 12/06/22 documented as of this encounter
--- OUTSIDE RECORDS SUMMARY | 2024-03-27 20:55 | XMS_ITS | Encounter Summary ---
Author Organization [facility] Address [facility] [place] [address] Care Team Providers Care Microwave Supervisor Name Role Phone Bell Navarrete MD Primary Care Provider [phone] Encounter Details Date Type Department Care Team (Late st Contact Info) Description 10/24/2011 Orders [place] [address] Keshav Liz MD [facility] [place] [place] [address] S/P thyroidectomy (Primary Dx) Social History Tobacco Use Types Packs/Day Years [...] PM EDT TH Visit (TeleHealth) [place] [phone] Pasha Wood MD [facility] [place] [address] Scheduled Orders Name Type Priority Associated Diagnoses Orde r Schedule Thyroglobulin Lab Routine S/P thyroidectomy Expected: 10/24/2011 (Approximate), Expires: 10/23/2012 documented as of this encounter Results * Thyroglobulin (11/22/2011 10:51 AM EDT) Thyroglobulin <0.4 <=54.9 ng/mL [facility] Comment: Interpret with caution. Tg levels may be unreliable and falsely low in TgAb positive samples (TgAb <20 is consistent with TgAb negativity). Serial TgAb measurements may be valuable as a surrogate tumor marker test and should be considered (Oly LM and Mich CA Thyroid 2003;13:1-126) A clinical cutoff of <2.0 ng/ml should be used for athyrotic individuals. Pediatric reference ranges have not been established. Serum Tg measurements on T4 hormone suppression protocol are less sensitive for detecting residual thyroid tissue and metastatic disease compared to those made on TSH stimulation protocol. Thus a low serum Tg (<5.0 ng/ml) or an undetectable Tg level on T4 hormone suppression therapy does not exclude recurrent or metastatic disease. (Hay ID et al. AACE Clinical Practice Guidelines for the Management of Thyroid Carcinoma. Endocrine Practice 1997;3:60-71). Tg levels after rhTSH administration may be lower than those obtained with T4 withdrawal protocol (Delicia BR et al. J Clin Endo Metab 1999;84:0616-6881). Assay performed using the DPC Immulite Tg immunometric assay. (lowest detection limit is <0.4 ng/ml). Thyroglob Ab <20.0 0.0 - 40.0 IU/mL [facility] Comment: Assay performed is the DPC Immulite Tg-Ab immunometric assay. (Cutoff for TgAb negativity is <20 IU/ml) Blood specimen (specimen) 11/22/2011 10:51 AM EDT 11/22/2011 2:28 PM EDT Narrative Resulting Agency Comment Spec In Lab Keshav Liz MD LAB SEND OUT ORDER SHAHID TERESA MAYES documented in this encounter Visit Diagnoses Diagnosis S/P thyroidectomy- Primary Other postprocedural status documented in this encounter Care Teams Microwave Supervisor Relationship Specialty Start Date End Date Bell Navarrete MD [address] [place] [address] PCP - General 06/21/10 06/27/16 documented as of this encounter
--- OUTSIDE RECORDS SUMMARY | 2024-03-27 20:55 | XMS_ITS | Encounter Summary ---
[place] [address] Care Team Providers Care Storage Battery Inspector Name Role Phone Bell Navarrete MD Primary Care Provider [phone] Encounter Details Date Type Department Care Team (Late st Contact Info) Description 05/28/2013 1:40 PM EDT Clinical [place] [id number] Social History Tobacco Use Types Packs/Day Years Used Date Smoking Tobacco: Never Alcohol Use Standard Drinks/Week Comments No 0 (1 standard drink = 0.6 oz pur e alcohol) Sex and Gender Information Value Date Recorded Sex Assigned at Not on file Gender Identity Not on file Sexual Orientation Not on file documented as of this encounter Progress Notes * Dayana Bill RN - 05/28/2013 2:06 PM EDT Pre-anesthesia questionnaire reviewed with patient. Patient stayed overnight when not planned because of placement of wound drain. Blood pressure is stable on medication. Patient has fatty liver disease. Pre-op folder reviewed with patient and all questions addressed. No testing ordered for today. Patient has been told to stop her aspirin. documented in this encounter Plan of Treatment Upcoming Encounters Date Type Department Care Team (Late st Contact Info) Description 05/15/2024 1:00 PM EDT TH Visit (TeleHealth) [place] [address] Pasha Wood MD [facility] [place] [address] documented as of this encounter Visit Diagnoses Not on filedocumented in this encounter Care Teams Storage Battery Inspector Relationship Specialty Start Date End Date Bell Navarrete MD [address] [place] [address] PCP - General 06/21/10 06/27/16 documented as of this encounter
--- OUTSIDE RECORDS SUMMARY | 2024-03-27 20:55 | XMS_ITS | Encounter Summary ---
Author Organization [facility] Address [facility] [place] [address] Care Team Providers Care Bill Recapitulation Clerk Name Role Phone Latha Aguirre MD Primary Care Provider Encounter Details Date Type Department Care Team (Late st Contact Info) Description 12/26/2005 Orders [place] [address] Isael Christianson MD [facility] [place] [address] Social History Tobacco Use Types Packs/Day Years Used Date Smoking Tobacco: Never Assessed [facility] Utilities Answer Date Recorded In the past 12 months has [employer], gas, oil, or water company threatened to [...] in a mcfp (including now)? No 10/22/2023 IPV Inpatient Questions [...] PM EDT TH Visit (TeleHealth) [place] [address] Pasha Wood MD [facility] [place] [address] documented as of this encounter Procedures Procedure Name Priority Date/Time Associated Diagnosis Comments SURGICAL PATHOLOGY REPORT Routine 12/26/2005 10:48 AM EDT documented in this encounter Results * Surgical Pathology Report (12/26/2005 10:48 AM EDT) Surgical Pathology Report [id number] ? Location: The signing pathologist has (i) examined the relevant preparation(s) for the specimen(s) and (ii) rendered or confirmed the diagnosis(es). . ?Pathology Surgical Pathology Final Report Clinical Information Specimen Submitted: A - Scarred colon; right colon. B - Scarred colon with pseudo polyps; left colon. C - Mild inflammation 30-20 cm; sigmoid. D - Mass/stricture neoplastic vs inflammatory; 20 cm. Clinical History: 55 YOWF with long H/O Crohn's colitis, surveillance colo, mass/stricture at 20 cm, question inflammato vs neoplastic. Clinical Diagnosis: Hx Crohn's, colitis. Gross Description A - Labeled/Fixative: Scarred colon, right colon; formalin. Qty/Size/Weight: ?Fifteen, ranging from 0.2 cm to 0.3 cm in greatest ?dimension. Tissue Description: ?? Soft, cortez tissues. Sections/Processi ng: ??(T2) B - Labeled/Fixative: Scarred colon with pseudopolyps, left colon; ?formalin. Qty/Size/Weight: ?Six, ranging from 0.3 cm to 0.4 cm in greatest ?dimension. Tissue Description: ?? Soft, cortez tissues. Sections/Processi ng: ??(T1) C - Labeled/Fixative: Mild inflammation 30-20 cm, sigmoid; formalin. Qty/Size/Weight: ?Two, ranging from 0.3 cm to 0.5 cm in greatest ?dimension. Tissue Description: ?? Soft, cortez tissues. Sections/Processi ng: ??(T1) D - Labeled/Fixative: Mass stricture neoplastic versus inflammatory, 20 cm; ?formalin. Qty/Size/Weight: ?Eight, ranging from 0.2 cm to 0.4 cm in greatest ?dimension. Tissue Description: ?? Fragmented, cortez-pink and cortez-red tissues. Sections/Processi ng: ??(T1) ??aje/EJR Microscopic Description Slides reviewed, microscopic description not recorded. Diagnosis Endoscopic biopsies - A. ??Inactive chronic colitis. Hyperplastic polyp. ?? No dysplasia is seen. B. Inactive chronic colitis. ?? No dysplasia is seen. C. Inactive chronic colitis. ?? No dysplasia is seen. . Diagnosis D. Invasive moderately differentiated colorectal adenocarcinoma. CR-0 12/27/05 AAS 12/27/05 Verified by: ? Ra Lawrence MD ?Pathologist ?(Electronic Signature) The attending pathologist whose signature appears on this report has reviewed all diagnostic slides and has edited the gross and/or microscopic portion of the report in rendering the final pathologic diagnosis. TERESA MAYES 12/26/2005 10:4 8 AM EDT Isael Christianson MD PATHOLOGY/CYTOLOGY O RDERABLES Performing Organization Address City/State/[facility] Co de Phone Number TERESA MAYES documented in this encounter Visit Diagnoses Not on filedocumented in this encounter Additional Health Concerns Infection Onset Date Last Indicated Resolved Time Rule Out COVID-19 07/14/2023 07/14/2023 07/14/2023 6:44 PM EST Rule Out Respiratory 07/14/2023 07/14/2023 023 6:44 PM EST documented as of this encounter Care Teams Bill Recapitulation Clerk Relationship Specialty Start Date End Date Latha Aguirre MD [address] [place] [address] PCP - General Family Medicine 06/28/23 documented as of this encounter
--- OUTSIDE RECORDS SUMMARY | 2024-03-27 20:55 | XMS_ITS | Encounter Summary ---
Author Organization [facility] Address [facility] [place] [address] Care Team Providers Care Sewage Plant Supervisor Name Role Phone Bell Pereira MD Primary Care Provider [phone] Reason for Visit * Reason Comments Goiter Encounter Details Date Type Department Care Team (Late st Contact Info) Description 09/11/2011 8:30 AM EST Office [place] [address] Keshav Liz MD [facility] [place] [address] Thyroid nodule (Primary Dx) Discharge Disposition: Home Social History Tobacco Use Types Packs/Day Years Used Date Smoking Tobacco: Never Sex and Gender Information Value Date Recorded Sex Assigned at Not on file Gender Identity Not on file Sexual Orientation Not on file documented as of this encounter Last Filed Vital Signs Vital Sign Reading Time Taken Comments Blood Pressure 143/74 09/11/2011 8:36 AM EST Pulse 98 09/11/2011 8:36 AM EST Temperature 36.3 ??C (97.3 ??F) 09/11/2011 8:36 AM ES T Respiratory Rate 88 09/11/2011 8:36 AM EST Oxygen Saturation 98% 09/11/2011 8:36 AM EST Inhaled Oxygen Concentration - - Weight 107.5 kg (237 lb) 09/11/2011 8:36 AM EST Height 157.5 cm (5' 2) 09/11/2011 8:36 AM EST Body Mass Index 43.35 09/11/2011 8:36 AM EST documented in this encounter Progress Notes * Keshav Liz MD - 09/11/2011 9:06 AM EST See H&P in Surgical Consult on 09/11/2011. documented in this encounter H&P Notes * Keshav Liz MD - 09/11/2011 9:07 AM EST Reason for Visit: Page Katz is a 60 y.o. female who is seen in consultation per BELL PEREIRA MD and Gilmer Wilson MD because of a left thyroid nodule. History of Present Illness: She was first noted to have a thyroid nodule about 15 years ago. This was followed by annual exams and FNA x 2-3. FNA were consistent with MNG, and the nodule was stable in size. She was placed on exogenous T4 for TSH suppression. She moved and has been followed by Dr. Wilson Recent US noted a size increase, and she has begun to have more compression symptvoms from the nodule. US revealed: THYROID ULTRASOUND: Indication: Thyroid nodule Real time images of the thyroid gland were obtained using a SonFastCallte Fuhuaxx and an [id number] broadband linear array transducer. Right Lobe: The right lobe measures: 1.5x1.6cm and is of normal echotexture. Left Lobe: The left lobe measures: 3.6x4.1cm and is composed of multiple isoechoic nodules coalescing togetherwitout intervening normal parenchyma. The dominant nodule measures 3.0x3.3x4.7cm. Previously 2.4x3.2x4.0cm. Note is made of a single coarse calcification. She has no family history of thyroid disease. She has no history of head or neck irradiation. She has no dysphagia or dysphonia. This has been felt on physical exam. ROS: No H/O asthma, LA, stroke, pulmonary embolus or phlebitis. Comprehensive review of systems otherwise negative and non-contributory. PMSH: Surgical history: bilateral TKA; lap viral; LAR for cancer Active medical problems: H/O IBD; HBP; depression Tobacco: (x) Life-long non-smoker ETOH: > monthly I have reviewed the relevant laboratory tests and imaging studies. Allergies as of 09/11/2011 ??? (No Known Allergies) Current outpatient prescriptions ordered prior to encounter Medication Sig Dispense Refill ??? levothyroxine (LEVOXYL) 75 mcg tablet ??? olmesartan (BENICAR) 20 mg tablet ??? hydrochlorothiazide (HYDRODIURIL) 25 mg tablet ??? aspirin (SHELTON BUX ASPIRIN) 81 mg chewable tablet ??? Zaamlwcguhaji-Tu-Hvsj-Minerals (ONE-A-DAY WOMENS FORMULA) 27-0.4 mg Tab ??? sertraline (ZOLOFT) 100 mg tablet 50MG = 1 Tablet(s), PO, Once daily PE: General: Well developed, well nourished 60 y.o. female in NAD. Skin: warm, dry, good turgor, nonicteric. Neck: She has a dominant, movable, nontender nodule in the left lobe of the thyroid measuring 5 x 4cm in greatest dimension with no adenopathy. HEENT: ARSH, EOM's full, sclera nonicteric, otherwise unremarkable. Back: no tenderness to AP or lateral compression. Lungs: Clear BS bilaterally without wheezes, rales or rhonchi. Card: Heart sounds normal, no murmurs, gallops, rubs or S3. Extremities: warm, no edema. Neuro: Awake, alert and oriented x 3., [place] negative bilaterally. Imp: Symptomatic MNG. Plan: Recommend proceeding with either a partial or total thyroidectomy. She understands the implications, indications, potential complications and agrees to proceed. Will sign in through [facility]. Consent is signed. Send copy to Dr. BELL PEREIRA MD and Gilmer Wilson MD. documented in this encounter Miscellaneous Notes * Miscellaneous - Magan Executive Pastry Chef - 10/17/2011 2:16 PM EDT documented in this encounter Plan of Treatment Upcoming Encounters Date Type Department Care Team (Late st Contact Info) Description 05/15/2024 1:00 PM EDT TH Visit (TeleHealth) [place] [address] Pasha Wood MD [facility] [place] [address] documented as of this encounter Procedures Procedure Name Priority Date/Time Associated Diagnosis Comments THYROIDECTOMY,TOTAL OR COMPLETE Routine 09/11/2011 9:03 AM EST documented in this encounter Visit Diagnoses Diagnosis Thyroid nodule- Primary Nontoxic uninodular goiter documented in this encounter Care Teams Sewage Plant Supervisor Relationship Specialty Start Date End Date Bell Pereira MD [address] [place] [address] PCP - General 06/21/10 06/27/16 documented as of this encounter
--- OUTSIDE RECORDS SUMMARY | 2024-03-27 20:55 | XMS_ITS | Encounter Summary ---
Author Organization Formerly [facility] Address [facility] [place] [address] Care Team Providers Care Roster Clerk Name Role Phone Bell Navarrete MD Primary Care Provider [phone] Reason for Visit * Reason Comments Nephrolithiasis Encounter Details Date Type Department Care Team (Latest Contact Info) Description 05/28/2013 12:15 PM EDT [place] [address] Inessa Alonzo Jr., MD [facility] [place] [address] Nephrolithiasis (Primary Dx) Discharge Disposition: Home Social History [...] Reading Time Taken Comments Blood Pressure 151/69 05/28/2013 12:14 PM EDT Pulse 88 05/28/2013 12:14 PM EDT Temperature - - Respiratory Rate 18 05/28/2013 12:14 PM EDT Oxygen Saturation - - Inhaled Oxygen Concentration - - Weight 105.7 kg (233 lb) 05/28/2013 12:14 PM EDT Height 160 cm (5' 3) 05/28/2013 12:14 PM EDT Body Mass Index 41.27 05/28/2013 12:14 PM EDT documented in this encounter Progress Notes * Inessa Alonzo Jr., MD - 05/28/2013 12:35 PM EDT HPI: Page Katz is a 62 y.o. woman who presents for urologic consultation regarding urolithiasis. She has no prior history of urolithiasis. She denies any specific renal colic, but does note dull left flank ache of several months duration. This ache is mild in severity, dull in nature, located in left low back, without radiation to bilateral proximal thighs. She denies associated nausea oremesis. There are no specific alleviating or aggravating factors. She denies stone passage or grosshematuria. Review of Systems Constitution: Positive for malaise/fatigue. Negative for fever. Cardiovascular: Negative for chest pain. Respiratory: Negative for shortness of breath. Musculoskeletal: Positive for back pain and joint pain. Gastrointestinal: Loose stool via ileostomy Genitourinary: Negative for hematuria. All other systems reviewed and are negative. PMHx: polymyalgia rheumatica, hypothyroidism, hyperlipidemia, Crohn's disease, colon CA, HTN PSHx: total colectomy; cholecystectomy; thyroidectomy; bilateral knee replacement FamHx:+ family h/o urolithiasis (sister, has had SWL) SocHx: no tobacco; no EtOH Physical Exam Vitals reviewed. Constitutional: She is oriented to person, place, and time. She appears well- developed and well-nourished. No distress. HENT: Head: Normocephalic and atraumatic. Eyes: No scleral icterus. Cardiovascular: Normal rate and regular rhythm. Pulmonary/Chest: Effort normal and breath sounds normal. No respiratory distress. She has no wheezes. She has no rales. Abdominal: Soft. She exhibits no distension. There is no tenderness. There is no rebound and no guarding. Genitourinary: No CVA tenderness to exam Musculoskeletal: She exhibits no edema and no tenderness. Lymphadenopathy: She has no cervical adenopathy. Neurological: She is alert and oriented to person, place, and time. Skin: Skin is warm and dry. She is not diaphoretic. Psychiatric: She has a normal mood and affect. Her behavior is normal. Imaging Studies: I independently reviewed the CT from [facility], dated 03/25/13. This reveals large>2cm branched left renal stone Impression/Plan: Large left renal stone, potentially branched (staghorn per CT report). I had a long discussion with Page Katz regarding the large, potentially branched left renal stone. We discussed at length the natural history of large branched and unbranched renal stones. We discussed management options and the established panel concensus and evidence-based AUA guidelines for management of calculi >2cm. We discussed management options of watchful waiting, open surgery, PCNL, Ureteroscopy, and SWL and the relative risks and benefits. With regard to left percutaneous nephrolithotomy, we specifically discussed risks of bleeding, infection, injury to or loss of kidney, and injury to surrounding structures including nerves and vasculature, lung, pleura, bowel, and solid organs, as well as risks of anesthesia including heart attack,deep venous thrombosis, pulmonary embolus, stroke, or . We discussed that we may be unable to access the collecting system or may be unable to access or remove all of the stone on the day of initial tract dilation such that multiple stages may be required in order to address the large stone burden. She would like to attempt definitive removal of the left renal stone, understands the risks and benefits of the options, and has requested that we proceed with left percutaneous renal access andleft PCNL. We also discussed pre-placement of a left ureteral stent, but for now she declines this unless symptoms arise. Urine will be sent for culture to aid in antibiotic selection. I have asked her to call with any additional questions. documented in this encounter Plan of Treatment Upcoming Encounters Date Type Department Care Team (Late st Contact Info) Description 05/15/2024 1:00 PM EDT TH Visit (TeleHealth) [place] [address] Pasha Wood MD [facility] [place] [address] documented as of this encounter Procedures Procedure Name Priority Date/Time Associated Diagnosis Comments URINE CULTURE Routine 05/28/2013 5:26 PM EDT Nephrolithiasis documented in this encounter Results * Urine culture Clean Catch Urine (05/28/2013 5:26 PM EDT) Urine Culture ? Patient Name: PAGE KATZ ? Ordered By: INESSA ALONZO JR ? MR#: [id number] ?LOC: ??5B ? /Sex: ??1950 (62 years), ? Female ? PROCEDURE: Urine Culture ?SOURCE: U CC ? COLLECTED: 05/28/2013 17:26 ? STARTED: 05/28/2013 17:26 ? AMENDED REPORT ? Amended Final Report ? Verified:06/01/20 13 08:02 ? 1,000-9,000 cfu/ml Klebsiella oxytoca ? FINAL REPORT ? Final Report ? Verified:05/29/20 13 14:52 ? 1,000-9,000 cfu/ml Gram Negative Rods ? Patient: PAGE KATZ ? MR#: [id number] ? SUSCEPTIBILITY RESULTS ? Klebsiella oxytoca ? _ ?JOHNIE Interp ? Ampicillin ? R ? Ampicillin/Sulbac weinberg ? S ? Aztreonam ?S ? Cefazolin ?R ? Cefoxitin ?S ? Ceftazidime ?S ? Ceftriaxone ?S ? Cefuroxime ? S ? Ciprofloxacin ?S ? Gentamicin ? S ? Levofloxacin ? S ? Meropenem ?S ? Nitrofurantoin ? S ? Piperacillin/Tazo bactam ?S ? Trimethoprim/Sulf a ? S ? Tetracycline ? S ? Tobramycin ? S ? CERNER MILLENNIUM Urine specimen obtained by clean catch procedure (specimen) 05/28/2013 5:26 PM EDT 05/28/2013 5:26 PM EDT Narrative Resulting Agency Comment Spec In Lab Inessa Alonzo Jr., MD MICROBIOLOGY - GEN ERAL ORDERABLES Performing Organization Address City/State/[facility] Co la Phone Number [facility] documented in this encounter Visit Diagnoses Diagnosis Nephrolithiasis- Primary Calculus of kidney documented in this encounter Care Teams Roster Clerk Relationship Specialty Start Date End Date Bell Navarrete MD [address] [place] [address] PCP - General 06/21/10 06/27/16 documented as of this encounter
--- OUTSIDE RECORDS SUMMARY | 2024-03-27 20:55 | XMS_ITS | Encounter Summary ---
Author Organization [facility] [place] [address] Care Team Providers Care Road Machine Runner Name Role Phone Bell Navarrete MD Primary Care Provider [phone] Reason for Visit * Reason Comments Establish Care Encounter Details Date Type Department Care Team (Late st Contact Info) Description 09/11/2011 9:30 AM EST Office Visit [place] [address] Dharmesh Abdul MD [facility] [address] [place] [address] Polymyalgia rheumatica (Primary Dx) Discharge Disposition: Home Social History Tobacco Use Types Packs/Day Years Used Date Smoking Tobacco: Never Sex and Gender Information Value Date Recorded Sex Assigned at Not on file Gender Identity Not on file Sexual Orientation Not on file documented as of this encounter Last Filed Vital Signs Vital Sign Reading Time Taken Comments Blood Pressure 143/74 09/11/2011 10:00 AM EST Pulse 98 09/11/2011 10:00 AM EST Temperature 36.3 ??C (97.3 ??F) 09/11/2011 10:[address] Respiratory Rate - - Oxygen Saturation 98% 09/11/2011 10:00 AM EST Inhaled Oxygen Concentration - - Weight 107 kg (235 lb 14.3 oz) 09/11/2011 10:00 AM EST Height 157.5 cm (5' 2.01) 09/11/2011 10:[address] Body Mass Index 43.13 09/11/2011 10:00 AM EST documented in this encounter Progress Notes * Dharmesh Abdul MD - 09/11/2011 10:12 AM EST Ms Katz is a 60 y.o. year old female who is referred for evaluation of possible polymyalgia rheumatica. PI:Diagnosed with PMR in April. She had have similar problems in the past. She would have severe pains in her arms and legs. In March she developed severe pain in the right hand. On 20 mg of prednisone, she felt great. As she decreased it , the symptoms came back. She has has the sensation ofswelling in the 2nd MCPjoints. She also has some back pain at night. She has had both knees replaced . Has history of Crohn's disease for which she took Remicade. No AM stiffness. Her energy is okay. Her appetite is fine. ROS: General-There is no fever, chills, or weight loss. HEENT-Some headaches. No scalp tenderness or jaw claudication. No sicca symptoms or mucosal ulcers in nose or mouth. Neck-No nodes. Has thyroid nodule. Chest- No cough, hemoptysis, wheezing or pleurisy. CV-No chest pain or dyspnea. GI-No dysphagia, heartburn, melena, constipation, or diarrhea. -No dysuria or incontinence. Extremities- No edema. NM- No paresthesias. Skin-No alopecia, photosensitivity or rash. Physical Examination: General-Well developed well nourished female who is alert and in no apparent distress at rest. HEENT-Normocephalic with no conjunctivitis. Neck-Supple. Chest-Regular respirations. Joints and extremities-Good ROM and no synovitis. Small heberden's nodes. Spine-Reversal of lumbar lordosis with flexion. NM- Patient is alert and oriented. Skin-No patchy alopecia or rash. Review of laboratory studies reveals CRP slightly raised but minimally. Impression:Polymyalgia rheumatica by history in patient with history of Crohn/s disease. Recommendations:Continue gradual steroid taper by 1 mg a month and switch from ibuprofen BID to naproxen 500 mg po BID with food. RV prn. documented in this encounter Plan of Treatment Upcoming Encounters Date Type Department Care Team (Late st Contact Info) Description 05/15/2024 1:00 PM EDT TH Visit (TeleHealth) [place] [address] Pasha Wood MD [facility] [address] documented as of this encounter Visit Diagnoses Diagnosis Polymyalgia rheumatica- Primary documented in this encounter Care Teams Road Machine Runner Relationship Specialty Start Date End Date Bell Navarrete MD [address] [place] [address] PCP - General 06/21/10 06/27/16 documented as of this encounter
--- OUTSIDE RECORDS SUMMARY | 2024-03-27 20:55 | XMS_ITS | Encounter Summary ---
Author Organization [facility] [place] [address] Care Team Providers Care Tension Worker Name Role Phone Bell Navarrete MD Primary Care Provider [phone] Encounter Details Date Type Department Care Team (Late st Contact Info) Description 06/19/2013 1:24 PM EST Anesthesia Event [place] [address] Robert Huitron MD [facility] [place] [address] Sandra Lagos MD [facility] [place] [address] Anesthesia Record Procedure Summary Procedure Name Responsible Anesthesiologist Anesthesia Start Time Anesthesia Stop Time NEPHROLITHOTOMY, (PCNL) PERCUTANEOUS, COMPLEX (EG STONE > 2CM) (WRVU 20.91) (Left: Flank) Robert Huitron MD 06/19/13 1324 06/19/13 1717 Events Date Time Event Comment 06/19/2013 1306 1324 Start 1329 AN Verify 1329 An Start Data 1340 An Induction 1344 An Intubation 1346 Anesthesia Ready 1427 Break/Relief In VELMA [employer], CUBING MACHINE TENDER 1503 Break/Relief Out 1624 Quick Note Breath hold for surgeons 1652 Extubation/LMA Out 1655 an stop data 1717 Stop Meds Name Total Midazolam 2 mg fentaNYL 200 mcg lidocaine IV 50 mg propofol 400 mg Rocuronium 90 mg Ondansetron 4 mg Dexamethasone 4 mg gentamicin 80 mg in sodium chloride 0.9% 100mL 80 mg cefTRIAXone 1 g lactated ringers 1,700 mL * Agents Name O2 Air Sevoflurane (et) * Blood No blood administrations on file. Lines, Drains, and Airways Type Details Placement Removal Incision 10/13/11; neck; 05/26/14 10/13/11 0000 by Elena Townsend, COTTRELL OPERATOR 05/26/14 0000 by Flavio Soto RN Incision 06/19/13; flank; 03/27/22 (LDA cleanup utility RA#[id number]); 1715 (LDA cleanup utility RA#[id number]) 06/19/13 0000 by Jumana Guerrier RN 03/27/22 1715 by Lindsey Mojica Nephrostomy Tube 06/19/13; left flank ; drainage bag to dependent drainage; 06/20/13; 1331 06/19/13 0000 by Jumana Guerrier RN 06/20/13 1331 by Ben Lanza, RN Urethral Catheter 06/19/13; indwelling double lumen catheter; latex; 20; inserted; 1; drainage bag to dependent drainage; 06/20/13; 1500 06/19/13 0000 by Jumana Guerrier, JOSEPH 06/20/13 1500 by Maci Galarza (RETIRED) Peripheral IV Line - Single Lumen 06/19/13; (upon arrival to unit); 06/20/13; 1119 06/19/13 0000 by Joe Seals RN 06/20/13 1119 by Ben Lanza, RN (RETIRED) Non-Surgical Airway Mask Ventilation: Adjunct (2); ETT Type: Cuffed, Oral; ETT Size: 7.5 mm; Oral Airway: 100 mm (5); Removal Date: 06/19/13; Removal Time: 165106/19/13 1344 by Rolanda Chatterjee MD 06/19/13 1652 by Rolanda Chatterjee MD (RETIRED) Peripheral IV Line - Single Lumen 06/20/13; 1700 06/19/13 1413 by 06/20/13 1700 by Maci Galarza documented in this encounter Social History Tobacco [...] OR Notes * Anesthesia Postprocedure Evaluation - Rolanda Chatterjee MD - 06/19/2013 5:19 PM EST Patient: Page Katz Procedure(s) Performed: Procedure(s): NEPHROLITHOTOMY, (PCNL) PERCUTANEOUS, OVER 2CM PERCUTANEOUS INTRO GUIDE WIRE TO ACCESS RENAL PELVIS,AND OR URETER, W\DILATION CYSTO, RETROGRADE, URETEROPYELOGRAPHY Actual Anesthetic: general Patient location: PACU Post-op pain: Adequate analgesia; no pain, is distressed over feeling of needing to urinate. Responding well to fentanyl. Bladder scan for <100. Post-op nausea: no nausea or vomiting Last Vitals: Filed Vitals: 06/19/13 1700 BP: 170/89 Pulse: 106 Temp: Resp: Post-op cardiovascular and respiratory status: is stable Level of consciousness: awake, alert and oriented Complications: no apparent complications and tolerated the procedure well Fluid Status: normal * Anesthesia Preprocedure Evaluation - Rolanda Chatterjee MD - 05/28/2013 2:25 PM EDT Images from the original note were not included. Pre-Anesthesia Evaluation for: Page marcano 62 y.o. female. Procedure(s): NEPHROLITHOTOMY, (PCNL) PERCUTANEOUS, OVER 2CM PERCUTANEOUS INTRO GUIDE WIRE TO ACCESS RENAL PELVIS,AND OR URETER, W\DILATION CYSTO, RETROGRADE, URETEROPYELOGRAPHY MODIFIER HOLMIUM LASER Patient Active Problem List Diagnosis ??? S/P thyroidectomy ??? Thyroid cancer ??? Hypothyroidism Past Medical History Diagnosis Date ??? Cancer ??? Crohn's disease ??? Thyroid disease Past Surgical History Procedure Date ??? Knee surgery ??? Colon surgery ??? Cholecystectomy ??? Thyroidectomy 10/13/2011 THYROIDECTOMY, TOTAL OR COMPLETE performed by RICK LIZ at [facility] ??? Somatosensory test, any/all per. nerves, trunk or head 10/13/2011 FACIAL NERVE MONITORING, SETUP performed by RICK LIZ at [facility] History Substance Use Topics ??? Smoking status: Never Smoker ??? Smokeless tobacco: Not on file ??? Alcohol Use: No History Drug Use No Known Allergies Medications: MAR and/or home medications have been reviewed. Physical Exam: There were no vitals filed for this visit. There is no height or weight on file to calculate BMI. Airway Assessment: Mallampati: II TM distance: >3 FB Neck ROM: full Cardiovascular Assessment: Rhythm: regular Rate: normal Pulmonary Assessment: breath sounds clear to auscultation [facility] Assessment: Patient is wearing No contact(s). IV access: Peripheral line Anesthesia Plan: ASA 2 general, with a(n) intravenous induction 62 year old female with history of PMR (on prednisone 1 mg/day and tapering), Hypothyroidism ([address] Liz), HTN (well controlled), Crohn's and colon tumor s/p colectomy withcolostomy in 2005, and depression. She is here for left PCNL. She is referred to us from Dr. Alonzo for chronic steroid use. She denies cardiopulmonary disease, failed a stress test 20 years ago, then had a normal cath, passed a stress test 10 years ago. She is active with house work, can go up 2 FOSwithout CP, but that you are deconditioned. We have discussed the likelihood that she have some adrenal suppression and they she will require some steroid on the day of surgery. She will take her prednisone as she normally would on that day. Region - Other Informed Consent: Anesthetic plan and risks discussed with patient and spouse. Use of blood products discussed with patient and spouse whom consented to blood products. Plan discussed with attending and resident. Misc. Assessment: documented in this encounter Plan of Treatment Upcoming Encounters Date Type Department Care Team (Late st Contact Info) Description 05/15/2024 1:00 PM EDT TH Visit (TeleHealth) Rheumatology at [place] [phone] Pasha Wood MD [facility] [place] [address] documented as of this encounter Visit Diagnoses Not on filedocumented in this encounter Administered Medications Inactive Administered Medications - up to 3 most recent administrations Medication Order MAR Action Action Date Dose Rate Site cefTRIaxone (ROCEPHIN) injection PRN, Starting on Margarita 06/19/13 at 1431, Until Margarita 06/19/13 at 1717, Anesthesia Intra-op, Routine Given 06/19/2013 2:31 PM EST 1 g dexamethasone (DECADRON) injection PRN, Starting on Margarita 06/19/13 at 1417, Until Margarita 06/19/13 at 1717, Anesthesia Intra-op, Routine Given 06/19/2013 2:17 PM EST 4 mg fentaNYL 50mcg/mL injection PRN, Starting on Margarita 06/19/13 at 1501, Until Margarita 06/19/13 at 1717, Pain, Anesthesia Intra-op, Routine Given 06/19/2013 5:10 PM EST 50 mcg Given 06/19/2013 4:20 PM EST 50 mcg Given 06/19/2013 3:41 PM EST 50 mcg gentamicin 80 mg in sodium chloride 0.9% 100mL 80 mg, Intravenous, ONCE, 1 dose, On Margarita 06/19/13 at 1200, Administer over 60 Minutes, Re-dose after 8 hours., Day of Surgery (Day of Procedure), Indication for (Active or Suspected): Prophylaxis Given 06/19/2013 2:10 PM EST 80 mg New Bag 06/19/2013 12:00 PM EST 80 mg 100 mL/hr lactated ringers infusion CONTINUOUS PRN, Starting on Margarita 06/19/13 at 1324, Until Margarita 06/19/13 at 1717, Anesthesia Intra-op New Bag 06/19/2013 2:23 PM EST mL New Bag 06/19/2013 1:24 PM EST mL lidocaine (PF) (XYLOCAINE) 100 mg/5 mL (2 %) injection PRN, Starting on Margarita 06/19/13 at 1340, Until Margarita 06/19/13 at 1717, Anesthesia Intra-op, Routine Given 06/19/2013 1:40 PM EST 50 mg midazolam (VERSED) injection PRN, Starting on Margarita 06/19/13 at 1324, Until Margarita 06/19/13 at 1717, Sleep, Anesthesia Intra-op, Routine Given 06/19/2013 1:24 PM EST 2 mg ondansetron (ZOFRAN) injection PRN, Starting on Margarita 06/19/13 at 1625, Until Margarita 06/19/13 at 1717, Nausea, Anesthesia Intra-op, Routine Given 06/19/2013 4:25 PM EST 4 mg propofol (DIPRIVAN) 10 mg/mL bolus injection (Anesthesia) PRN, Starting on Margarita 06/19/13 at 1340, Until Margarita 06/19/13 at 1717, Anesthesia Intra-op Given 06/19/2013 2:56 PM EST 50 mg Given 06/19/2013 2:33 PM EST 50 mg Given 06/19/2013 1:50 PM EST 100 mg rocuronium (ZEMURON) injection PRN, Starting on Margarita 06/19/13 at 1340, Until Margarita 06/19/13 at 1717, Anesthesia Intra-op, Routine Given 06/19/2013 2:54 PM EST 20 mg Given 06/19/2013 2:33 PM EST 20 mg Given 06/19/2013 1:40 PM EST 50 mg documented in this encounter Care Teams Tension Worker Relationship Specialty Start Date End Date Bell Navarrete MD [address] [place] [address] PCP - General 06/21/10 06/27/16 documented as of this encounter
--- OUTSIDE RECORDS SUMMARY | 2024-03-27 20:55 | XMS_ITS | Encounter Summary ---
[place] [address] Care Team Providers Care Commercial Lines Manager Name Role Phone Bell Navarrete MD Primary Care Provider [phone] Encounter Details Date Type Department Care Team (Late Contact Info) Description 09/15/2011 Telephone [place] [id number] Elena Rodriguez, RN Social History Tobacco Use Types Packs/Day Years Used Date Smoking Tobacco: Never Sex and Gender Information Value Date Recorded Sex Assigned at Not on file Gender Identity Not on file Sexual Orientation Not on file documented as of this encounter Miscellaneous Notes * Telephone Encounter - Elena Rodriguez RN - 09/15/2011 4:40 PM EST Pt calls to let Dr. Liz know that she is currently on a prednisone taper and she will still be on 9 mg daily on her day of surgery 10/13/11/ SHe is wondering if this is all right, or if there isanything Dr. Liz needs her to do. PLAN: I will let Dr. Liz know, and we will be in touch if we need to alter the plan at all. Pt verbalizes her understanding and agrees with the plan. documented in this encounter Plan of Treatment Upcoming Encounters Date Type Department Care Team (Late Contact Info) Description 05/15/2024 1:00 PM EDT TH Visit (TeleHealth) [place] [address] Pasha Wood MD [facility] [address] documented as of this encounter Visit Diagnoses Not on filedocumented in this encounter Care Teams Commercial Lines Manager Relationship Specialty Start Date End Date Bell Navarrete MD [address] [place] [address] PCP - General 06/21/10 06/27/16 documented as of this encounter
--- OUTSIDE RECORDS SUMMARY | 2024-03-27 20:55 | XMS_ITS | Encounter Summary ---
Author Organization [facility] Address [facility] [place] [address] Care Team Providers Care Client Services Manager Name Role Phone Bell Navarrete MD Primary Care Provider [phone] Encounter Details Date Type Department Care Team (Late st Contact Info) Description 05/28/2013 2:00 PM EDT [place] [address] Social History Tobacco Use Types Packs/Day Years [...] PM EDT TH Visit (TeleHealth) [place] [address] Pasha Wood MD [facility] [place] [address] documented as of this encounter Visit Diagnoses Not on filedocumented in this encounter Care Teams Client Services Manager Relationship Specialty Start Date End Date Bell Navarrete MD [address] [place], [place] [address] PCP - General 06/21/10 06/27/16 documented as of this encounter
--- OUTSIDE RECORDS SUMMARY | 2024-03-27 20:55 | XMS_ITS | Encounter Summary ---
Author Organization [facility] [place] [address] Care Team Providers Care Manager House Name Role Phone Bell Navarrete MD Primary Care Provider [phone] Reason for Visit * Reason Comments Nephrolithiasis Encounter Details Date Type Department Care Team (Latest Contact Info) Description 07/02/2013 8:40 AM EST Procedure [place] [address] Inessa Alonzo Jr., MD [facility] [place] [address] Kidney stone (Primary Dx) Discharge Disposition: Home Social History [...] Taken Comments Blood Pressure - - Pulse - - Temperature - - Respiratory Rate 16 07/02/2013 8:48 AM EST Oxygen Saturation - - Inhaled Oxygen Concentration - - Weight 104.3 kg (230 lb) 07/02/2013 8:48 AM EST Height 158.8 cm (5' 2.5) 07/02/2013 8:48 AM EST Body Mass Index 41.4 07/02/2013 8:48 AM EST documented in this encounter Patient Instructions * Patient Instructions* Flavio Malcolm LPN - 07/02/2013 9:09 AM EST Instructions following Cystoscopy Activity: As tolerated by your comfort level. Fluids: You should increase your water today. Avoid coffee, tea and cola. You do not need to ounces of water today. Urination: You will likely have a small amount of blood in your urine for the next several days. This is normal; however, if you are passing large amounts of blood clots or are unable to void please call our office at [phone] before 5PM or [phone] after hours. Please call if: * you have copious blood in your urine * fevers greater than 101.3 F * you are unable to void The number for questions is [phone] before 5 PM weekdays and [phone] after 5 PM and weekends. Follow-up: 6 week follow up with Dr. Alonzo with ultrasound documented in this encounter Procedure Notes * Inessa Alonzo Jr., MD - 07/02/2013 8:56 AM ESTAssociated Order(s): CYSTOSCOPY Pre-Procedure Diagnose(s): Kidney stone Page Katz returns for left ureteral stent removal after undergoing left PCNL. This pleasant 62 y.o. year old female underwent left PCNL on 06/19/13. Intraoperative findings werenotable for large left renal stone. Postop CT confirmed she had been rendered stone free. She presents today for planned stent removal. We discussed the procedure, risks and planned [...] of the need to return in approximately 4-6 weeks for renal ultrasound to ensure that there is no residual hydronephrosis. I cautioned her to contact us immediately with increasing pain, fever, or chills as this could suggest obstruction and may need to be further evaluated on an urgent or emergent basis. I have asked her to call with any additional questions. Stone analysis: pending documented in this encounter Plan of Treatment Upcoming Encounters Date Type Department Care Team (Late st Contact Info) Description 05/15/2024 1:00 PM EDT TH Visit (TeleHealth) [place] [address] Pasha Wood MD [facility] [place] [address] documented as of this encounter Procedures Procedure Name Priority Date/Time Associated Diagnosis Comments CYSTOSCOPY Routine 07/02/2013 9:25 AM EST Kidney stone documented in this encounter Results * US retroperitoneal complete (08/20/2013 10:17 AM EST) Anatomical Region Laterality Modality Abdomen Ultrasound 08/20/2013 10:1 7 AM EST Narrative 08/20/2013 10:47 AM EST ? Renal ? (Signed Final 08/20/2013 10:46 am) Patient Info ID: ? [id number] ? : ??50 (62 yrs) Name: ? PAGE KATZ ? Visit Date: 08/20/2013 10:13 am Performed By Performed By: ?Marija [facility], ??Huong Associate: ? Abiola Lyons MD Attending: ? Jessica Loya MD Referred By: ? INESSA ALONZO MD Service(s) Provided URETRO - Retroperitoneal Complete - [id number] ? [id number] Indications History of kidney stones Comparison Noncontrast [...] Final 08/20/2013 10:46 am) Patient Info ID: [id number] : 50 (62 yrs) Name: PAGE KATZ Visit Date: 08/20/2013 10:13 am Performed By Performed By: Huong Dutton RDMS Associate: Abiola Lyons MD Attending: Jessica Loya MD Referred By: INESSA ALONZO MD Service(s) Provided URETRO - Retroperitoneal Complete - [id number] Indications History of kidney stones Comparison Noncontrast [...] MD IMG US GEN ORDERAB LES * Cystoscopy - Today (07/02/2013 9:25 AM EST) Narrative Inessa Alonzo Jr., MD - 07/02/2013 9:25 AM EST Inessa Alonzo Jr., MD ? 07/02/2013 ??9:25 AM Page Katz returns for left ureteral stent removal after undergoing left PCNL. This pleasant ??62 y.o. year old female underwent left PCNL on 06/19/13. ??Intraoperative findings were notable for large left renal stone. ??Postop CT confirmed she had been rendered stone free. ??She ??presents today for planned stent removal. We discussed the procedure, risks and planned [...] ??of the need to return in approximately 4-6 weeks for renal ultrasound to ensure that there is no residual hydronephrosis. ??I cautioned her to contact us immediately with increasing pain, fever, or chills as this could suggest obstruction and may need to be further evaluated on an urgent or emergent basis. ??I have asked her to call with any additional questions. Stone analysis: pending Procedure Note Inessa Alonzo Jr., MD - 07/02/2013 8:56 AM EST Page Katz returns for left ureteral stent removal after undergoingleft PCNL. This pleasant 62 y.o. year old female underwent left PCNL on 06/19/13.Intraoperative findings were notable for large left renal stone. PostopCT confirmed she had been rendered stone free. She presents today forplanned stent removal. We discussed the procedure, risks and planned benefit. We discussed theneed to remove the stent as they cannot stay in indefinitely, as well asthe risk of possible need for stent or nephrostomy replacement if therewas any residual or future ureteral obstruction. Informed consent wasobtained. Page Katz was taken to the cystoscopy room and prepped and draped byour urology nurse. Prophylactic antibiotic administration was confirmed.Topical viscous lidocaine gel was applied to the urethra for localanesthetic. A timeout was performed. Flexible cystoscopy was performed.The urethra was without abnormality. The bladder was entered andinspected. No focal mucosal abnormality was seen. The stent was seenemanating from the left ureteral orifice. It was grasped and extracted.It was inspected and found to be intact. She tolerated the procedurewell. I instructed Page Katz of the need to return in approximately 4-6weeks for renal ultrasound to ensure that there is no residualhydronephrosis. I cautioned her to contact us immediately with increasingpain, fever, or chills as this could suggest obstruction and may need jamison further evaluated on an urgent or emergent basis. I have asked her tocall with any additional questions. Stone analysis: pending Inessa Alonzo Jr., MD PROCEDURE ORDER SHAHID documented in this encounter Visit Diagnoses Diagnosis Kidney stone- Primary Calculus of kidney Kidney stone Calculus of kidney documented in this encounter Care Teams Manager House Relationship Specialty Start Date End Date Bell Navarrete MD [address] [place] [address] PCP - General 06/21/10 06/27/16 documented as of this encounter
--- OUTSIDE RECORDS SUMMARY | 2024-03-27 20:55 | XMS_ITS | Encounter Summary ---
Author Organization [facility] Address [facility] [place] [address] Care Team Providers Care Alum Operator Name Role Phone Latha Aguirre MD Primary Care Provider Encounter Details Date Type Department Care Team (Late st Contact Info) Description 01/04/2006 Orders [place] [address] Miky Arndt III, MD [facility] [place] [address] Social History Tobacco Use Types Packs/Day Years Used Date Smoking Tobacco: Never Assessed [facility] Utilities Answer Date Recorded In the past 12 months has e [employer], gas, oil, or water [employer] threatened to shut off services in your [...] place to sleep or slept in a penitentiary (including now)? No 10/22/2023 IPV Inpatient Questions [...] PM EDT TH Visit (TeleHealth) [place] [address] Pasha Wood MD [facility] [address] documented as of this encounter Procedures Procedure Name Priority Date/Time Associated Diagnosis Comments SURGICAL PATHOLOGY REPORT Routine 01/04/2006 2:26 PM EDT documented in this encounter Results * Surgical Pathology Report (01/04/2006 2:26 PM EDT) Surgical Pathology Report - [id number] ? Location: [facility]; [facility]; B The signing pathologist has (i) examined the relevant preparation(s) for the specimen(s) and (ii) rendered or confirmed the diagnosis(es). . ?Pathology Surgical Pathology Final Report Clinical Information Specimen Submitted: A - Colon: abdomen. B - Procto - sigmoid colon: abdomen. Clinical Diagnosis: Crohn's colitis colon cancer. Gross Description A - Labeled/Fixative: ?Colon, fresh. Qty/Size/Weight: ? Partial colectomy specimen with appendix. ? Length of colon is 90.0 cm. ??Diameter ranges from 4.0 cm at the cecum to an area of partial narrowing to 2.0 cm near the descending (distal) colon. Tissue Description: ?? External architecture: ??The mesentery is pink-cortez with slight areas of ? hyperemia. ?? Serosa: ? [place] Bow-cortez, smooth, and glistening with areas of ? focal creeping fat more pronounced toward the ? area of narrowing. ?? Mucosa: ? [place] Bow-cortez with the usual folds. ??There is a ? 4.0-cm area of narrowing with increased wall ? thickness and serosal creeping fat, 10.0 cm from ? the terminal margin. ?? Margins: ?Uninvolved. ?? LN: ? Twenty questionable nodes, ranging in size from ? 0.2 cm to 1.0 cm. ?? Appendix: ? Appendiceal serosa is pink-cortez, smooth, and ? glistening. ??Appendix is 8.0 cm in length, ? 0.5 cm in diameter, unremarkable. Sections/Processi ng: ? (1) proximal (terminal ileal) margin; (2) ? congressional representative section of ileum; (3-4) congressional representative sections of cecum; (5-6) congressional representative sections of ascending colon; (7) congressional representative section from hepatic flexure; (8-9) congressional representative sections of transverse colon; (10) congressional representative sections of splenic flexure; (11-12) congressional representative section of descending colon in area of increased narrowing; (13) terminal margin on specimen; (14) appendiceal base and congressional representative cross sections of appendix; (15) appendiceal tip cut longitudinal, entirely submitted; (16-20) twenty-four questionable nodes, ranging from 0.3 cm to 1.0 cm, (16) size questionable nodes, (17) five questionable nodes; (18) four questionable nodes; (19) five questionable nodes; (20) six questionable nodes. ?? (R20) aje/CHRISTOPHER B - Labeled/Fixative: ? Proctosigmoid colon, fresh. Tissue Description ?? Resection Specimen: ?Sigmoid with rectum. ?Length/Diameter : ?45.0 cm in length. ??Diameter ranges in size from ?2.0 cm to 1.0 cm. ?Serosa: ? Big Bow-cortez, smooth, glistening, with creeping fat, ?5.0 cm from the proximal resection margin. ??The ?distal portion of specimen is disrupted, received ?partially torn. Tumor site: ? 20.0 cm from the distal (rectal) margin there is ?a 4.5 x 3.5-zz-cf-greates t-dimension, polypoid, ?circumferential , nearly obstructing, cortez-white, . Gross Description ?firm, polypoid lesion. ?? Depth of Penetration: ??Does not penetrate through muscularis propria. ?? Proximity to margins: ??18.0 cm from proximal margin. ?20.0 cm from distal (rectal) margin. Other: ?Remaining mucosa is pink-cortez, thickened. ??The ?wall is slightly thickened throughout. ??No other ?mucosal lesions are identified. Lymph nodes: ?? Estimated number of ?lymph nodes found: ??Twenty-six questionable nodes, ranging from ?0.3 cm to 1.0 cm. Sections/Processi ng: ?(1) proximal resection margin; (2-3) distal ?resection margin including mucosa; (4) mucosa at site of torn, disrupted segment of bowel; (5-8) tumor and serosa; (9) congressional representative section of mucosa; (10-15) lymph nodes, (10) four questionable nodes, (11) four questionable nodes, (12) five questionable nodes, (13) five questionable nodes, (14) four questionable nodes, (15) five questionable nodes. ??(R15) ??aje/CHRISTOPHER Microscopic Description Slides reviewed, microscopic description not recorded. Diagnosis A and B. Large bowel, total proctocolectomy: Adenocarcinoma, moderately differentiated, of rectosigmoid. The tumor measures 4.5cm in greatest diameter. The tumor invades into the muscularis propria. Resection margins are negative for tumor. No lymphovascular or perineural invasion is identified. The nonneoplastic colorectal mucosa shows Crohn's colitis, ?characterized by mucosal ulceration, ??transmural chronic inflammation and inflammatory stricture. Appendix with fibrous obliteration. Forty-seven benign lymph nodes, negative for tumor (0/47). TNM Staging (AJCC, 6th ed., 2003): pT2 pN0 pMx 01/08/06 AAS 01/09/06 Verified by: ? Ra Lawrence MD ?Pathologist ?(Electronic Signature) The attending pathologist whose signature appears on this report has reviewed all diagnostic slides and has edited the gross and/or microscopic portion of the report in rendering the final pathologic diagnosis. TERESA MAYES 01/04/2006 2:26 PM EDT Miky Arndt III, MD PATHOLOGY/CYT OLOGY ORDERABLES TERESA MAYES documented in this encounter Visit Diagnoses Not on filedocumented in this encounter Additional Health Concerns Infection Onset Date Last Indicated Resolved Time Rule Out COVID-19 07/14/2023 07/14/2023 07/14/2023 6:44 PM EST Rule Out Respiratory 07/14/2023 07/14/2023 023 6:44 PM EST documented as of this encounter Care Teams Alum Operator Relationship Specialty Start Date End Date Latha Aguirre MD [address] [place] [id number] PCP - General Family Medicine 06/28/23 documented as of this encounter
--- OUTSIDE RECORDS SUMMARY | 2024-03-27 20:55 | XMS_ITS | Encounter Summary ---
[place] [address] Care Team Providers Care Vocational School Teacher Name Role Phone Bell Navarrete MD Primary Care Provider [phone] Reason for Visit * Reason Onset Date Comments Results 11/29/2011 Encounter Details Date Type Department Care Team (Late st Contact Info) Description 11/29/2011 Telephone [place] [address] Gilmer Wilson MD [address] [place] [address] Results Social History Tobacco Use Types Packs/Day Years Used Date Smoking Tobacco: Never Sex and Gender Information Value Date Recorded Sex Assigned at Not on file Gender Identity Not on file Sexual Orientation Not on file documented as of this encounter Miscellaneous Notes * Telephone Encounter - Trena Gay LPN - 11/29/2011 3:57 PM EDT Returning call to patient asking for lab results from appointment with Dr Wilson on 11/22/11. Patient was told she will be receiving letter soon from Dr Rodriguez dated 11/28/11. documented in this encounter Plan of Treatment Upcoming Encounters Date Type Department Care Team (Late st Contact Info) Description 05/15/2024 1:00 PM EDT TH Visit (TeleHealth) [place] [address] Pasha Wood MD [facility] [place] [address] documented as of this encounter Visit Diagnoses Not on filedocumented in this encounter Care Teams Vocational School Teacher Relationship Specialty Start Date End Date Bell Navarrete MD [address] [address] PCP - General 06/21/10 06/27/16 documented as of this encounter
--- OUTSIDE RECORDS SUMMARY | 2024-03-27 20:55 | XMS_ITS | Encounter Summary ---
[place] [address] Care Team Providers Care Cnmt Name Role Phone Bell Navarrete MD Primary Care Provider [phone] Reason for Visit * Reason Comments Thyroid Problem Encounter Details Date Type Department Care Team ([facility] st Contact Info) Description 11/22/2011 1:30 PM EDT Office Visit [place] [address] Gilmer Wilson MD [address] [place] [address] Thyroid cancer; Hypothyroidism Discharge Disposition: Home Social History Tobacco Use Types Packs/Day Years Used Date Smoking Tobacco: Never Sex and Gender Information Value Date Recorded Sex Assigned at Not on file Gender Identity Not on file Sexual Orientation Not on file documented as of this encounter Progress Notes * Gilmer Wilson MD - 11/22/2011 2:01 PM EDT Page Katz is a 60 y.o. year old female who presents for follow-up. Thyroid cancer summary: Apr Large L thyroid nodule Previous FNA's benign Sep Total thyroidectomy Path: Dominant nodule; Incidental microscopic multifocal PTC Her voice is strong Denies parasthesias, carpopedal spasm Symptoms of thyroid hormone excess / deficiency: Heat intolerance: No Cold intolerance: No Diarrhea: No Constipation: No Weight loss / gain: No Anxiety: No Jitteriness: No Temors: No Palpitations: No Difficulty concentrating: No Review of Systems See HPI. All other systems negative. Physical Exam GENERAL: A+O x 3; Comfortable; Mood and affect appropriate. EYES: Sclera clear, no conjunctival injection; No stare, lid lag or proptosis. NECK: Trachea is midline; Thyroidectomy incision well healed; No cervical adenopathy. SKIN: Skin is neither fine and moist nor excessively dry; No rashes noted. NEURO: Cranial nerves grossly intact; DTRs have normal relaxation phase. EXT: Gait and station normal; No tremor; No thyroid acropachy or pretibial myedema. ASSESSMENT / PLAN: 1. Thyroid cacner pT1a(m)NxMx stage 1 microPTC Incidental microPTC is not an uncommon finding. Autopsy series report an incidence of anywhere from4 - 36%. In the [facility] nodule database, we find that 20% (77/380) of our thyroidectomy specimens containing either benign thyroid disease or non-PTC malignancies also contain microscopic foci of PTC. In general the prognosis for microPTC is very good with an expected mortality < 1%, and, in general, a low rate of clinical recurrences. Multiple factors may serve to increase the likelihood of recurrence - aggressive histologic subtypes of PTC; presence of cervical lymph node involvement; and multifocality. Total / near total thyroidectomy may reduce the likelihood of recurrences. This has not been a universal finding though. For example Iris et al found no improvement in survival or recurrence for total thyroidectomy v. less complete operations in stage 1 patients. The opposite was true in higherstage patients however. Thyroid 2006;16(12):6433-1732. Analyzing only micropapillary tumors in that same database revealed no difference in recurrence rates between those with unifocal v. multifocal tumors. However, for those who had less than near totalthyroidectomy, those with multifocal tumors had a higher recurrence rate than those with unifocal tumors. For patients with multifocal tumors, there was a trend toward less recurrences with total or near total thyroidectomy compared to lesser operations. Thyroid 2009;19(10):5229-3219. The [place] [employer] suggests a completion thyroidectomy be offered to all patients except those with <1cm, unifocal, intrathyroidal, low risk tumors (recommendation B). Thyroid 2009;19(11):1-48. 2. Hypothyroidism Plan: - TSH - Adjust T4 dose prn - Goal is low-normal TSH . documented in this encounter Plan of Treatment Upcoming Encounters Date Type Department Care Team (Late st Contact Info) Description 05/15/2024 1:00 PM EDT TH Visit (TeleHealth) [place] [address] Pasha Wood MD [facility] [place] [address] documented as of this encounter Procedures Procedure Name Priority Date/Time Associated Diagnosis Comments TSH Routine 11/22/2011 10:51 AM EDT Hypothyroidism documented in this encounter Results * (ABNORMAL) TSH (11/22/2011 10:51 AM EDT) Thyroid Stimulating Hormone 22.48(H) 0.27 - 4.20 mcIU/mL [facility] Blood specimen (specimen) 11/22/2011 10:51 AM EDT 11/22/2011 2:33 PM EDT Narrative Resulting Agency Comment Spec In Lab Gilmer Wilson MD CHEMISTRY ORDERABLES [facility] [facility] documented in this encounter Visit Diagnoses Diagnosis Thyroid cancer Malignant neoplasm of thyroid gland Hypothyroidism Unspecified hypothyroidism documented in this encounter Care Teams Cnmt Relationship Specialty Start Date End Date Bell Navarrete MD [address] [place] [address] PCP - General 06/21/10 06/27/16 documented as of this encounter
--- OUTSIDE RECORDS SUMMARY | 2024-03-27 20:55 | XMS_ITS | Encounter Summary ---
Author Organization [facility] Address [address] [place] [address] Care Team Providers Care Billiard Player Name Role Phone Latha Aguirre MD Primary Care Provider Unavailable Encounter Details Date Type Department Care Team (Late st Contact Info) Description 03/27/2024 Lab Requisition [facility] Pathology & Laboratory Medicine - [address] [address] Outr Resulting Lab, Provider Social History Tobacco Use Types Packs/Day Years [...] No 03/16/2020 documented as of this encounter Plan of Treatment Upcoming Encounters Date Type Department Care Team (Late st Contact Info) Description 12/17/2024 13:[address] [facility] D[facility]atology [address] [facility], [place] [address] Maci Rand MD [address] [facility] [place] [address] Scheduled Orders Name Type Priority Associated Diagnoses Orde r Schedule CALCIUM, URINE RANDOM Lab Routine Ord ered: 03/27/2024 documented as of this encounter Visit Diagnoses Not on filedocumented in this encounter Care Teams Billiard Player Relationship Specialty Start Date End Date Latha Aguirre MD [facility] [place] [address] PCP - General Family Medicine - Primary Care 12/06/22 documented as of this encounter
--- OUTSIDE RECORDS SUMMARY | 2024-03-27 20:55 | XMS_ITS | Encounter Summary ---
Author Organization [facility] Address [facility] [place] [address] Care Team Providers Care Wind Operations Supervisor Name Role Phone Latha Aguirre MD Primary Care Provider Encounter Details Date Type Department Care Team (Late st Contact Info) Description 10/22/2008 Orders Only [place] [address] Miky Arndt III, MD [facility] [place] [address] Social History Tobacco Use Types Packs/Day Years Used Date Smoking Tobacco: Never Assessed [facility] Utilities Answer Date Recorded In the past 12 months has e [employer], gas, oil, or water [employer] threatened to shut off services in your [...] PM EDT TH Visit (TeleHealth) [place] [address] Pasha Wood MD [facility] [place] [address] documented as of this encounter Procedures Procedure Name Priority Date/Time Associated Diagnosis Comments SURGICAL PATHOLOGY REPORT Routine 10/22/2008 3:26 PM EDT documented in this encounter Results * Surgical Pathology Report (10/22/2008 3:26 PM EDT) Surgical Pathology Report - [id number] ? [facility]; A The signing pathologist has (i) examined the relevant preparation(s) for the specimen(s) and (ii) rendered or confirmed the diagnosis(es). . ?Pathology Surgical Pathology Final Report Clinical Information Specimen Submitted: A - Fresh liver biopsy B - Gallbladder, abd Clinical History: Not provided Clinical Diagnosis: Cholelithiasis Gross Description A - Labeled/Fixative: Fresh liver biopsy, fresh. Qty/Size/Weight: ?Single, 1.3 x 0.6 x 0.6 cm. Tissue Description: ?? Wedge of cortez-brown soft tissue. ??On section, the ?tissues are homogeneous, cortez-brown without masses ?grossly. Sections/Processi ng: ??(T1) B - Labeled/Fixative: Gallbladder, fresh. Qty/Size/Weight: ?Single, 6.7 x 4.5 x 1.4 cm. Tissue Description: ?? Gallbladder. ?? External surface: ??Congested, pink-red. ?? Lumen contents: ?Viscous, red-brown bile and multiple small, yellow ?calculi, averaging 0.3 cm in greatest dimension. ?? Mucosa: ?Pale cortez-pink, smooth, and velvety. ?? Wall: ?Intact, averaging 0.2 cm to 0.3 cm in thickness. Sections/Processi ng: ??(R1) ??aje/PPS Microscopic Description Slides reviewed, microscopic description not recorded. Diagnosis A. Liver, wedge biopsy: Liver parenchyma with severe mixed micro- and macrovesicular steatosis, accompanied by ballooning degeneration of the hepatocytes, mild lobular inflammation and rare Radha hyalines. Trichrome stain shows portal fibrosis, focal fibrous septa and pericellular/ perivenular fibrosis (stage 1-2). Iron stain is negative for iron deposition. The findings are those of steatohepatitis/s teatofibrosis. B. Gallbladder, cholecystectomy: Chronic cholecystitis and cholelithiasis. . Diagnosis CR-0 10/23/08 AAS 10/23/08 Verified by: ? Melinda LU, Ra Dumas ?Pathologist ?(Electronic Signature) The attending pathologist whose signature appears on this report has reviewed all diagnostic slides and has edited the gross and/or microscopic portion of the report in rendering the final pathologic diagnosis. TERESA MAYES 10/22/2008 3:26 PM EDT Miky Arndt III, MD PATHOLOGY/CYT OLOGY ORDERABLES Performing Organization Address City/State/[facility] Co de Phone Number TERESA MAYES documented in this encounter Visit Diagnoses Not on filedocumented in this encounter Additional Health Concerns Infection Onset Date Last Indicated Resolved Time Rule Out COVID-19 07/14/2023 07/14/2023 07/14/2023 6:44 PM EST Rule Out Respiratory 07/14/2023 07/14/2023 023 6:44 PM EST documented as of this encounter Care Teams Wind Operations Supervisor Relationship Specialty Start Date End Date Latha Aguirre MD [address] [place] [address] PCP - General Family Medicine 06/28/23 documented as of this encounter
--- OUTSIDE RECORDS SUMMARY | 2024-03-27 20:55 | XMS_ITS | Clinical Summary ---
Author Organization [facility] Address [address] [place] [address] Care Team Providers Care Doweler Name Role Phone Latha Aguirre MD Primary Care Provider Unavailable Allergies Active Allergy Reactions Criticality Noted Date [...] Take 1 Tablet by mouth daily. Active cmhoyauz-tjvx-RJ-rachana cium-mins 18 mg iron-400 mcg-500 mg Ca [...] Noted Date Diagnosed Date Seronegative rheumatoid arthritis ([facility]) 05/31 Myalgia 06/19/2019 Vitamin D deficiency 06/19/2019 Depression 06/19/2019 Essential hypertension 06/19/2019 Acquired hypothyroidism 06/19/2019 Thyroid cancer ([facility]) 06/19/2019 Obesity (BMI 30-39.9) 06/19/2019 Colon cancer ([facility]) 06/19/2019 Encounters Date Type Department Care Team Description 03/27/2024 Lab Requisition [facility] Pathology & Laboratory Medicine - [address] [address] Outr Resulting Lab, Provider from Last 3 Months Social History Tobacco Use Types Packs/Day Years Used Date Smoking Tobacco: Never Smokeless Tobacco: Never Tobacco Cessation:Counseling Given: Not Answered Interpersonal Safety Answer Date Record ed Physically Hurt Never 02/29/2020 Verbally Threaten Not on file 02/29/2020 Sex and Gender Information Value Date Recorded Sex Assigned at Not on file Gender Identity Female 10/14/2021 11:22 EDT Sexual Orientation Not on file Obstetrics History Last Filed Vital Signs Vital Sign Reading [...] Body Mass Index 39.42 06/21/2020 0943 EST Plan of Treatment Upcoming Encounters Date Type Department Care Team (Marc camacho Contact Info) Description 12/17/2024 13:00 EDT Office Visit [facility] Dermatology [address], [place] [address] Maci Rand MD [address] [facility] [place] [address] Health Maintenance Due Date Last Done Comments Hepatitis C Screen 1950 RSV Immunization ( o r 60+ Years) (1 - 1-dose 60+ series) 2010 Fall Risk Screening 05/18/2022 05/18/2021, 04/29/2020, 12/02/2019 COVID-19 Vaccine (2022- season) 2023 Care Teams Doweler Relationship Specialty Start Date End Date Latha Aguirre MD [address] [place] [address] PCP - General Family Medicine - Primary Care 12/06/22
--- OUTSIDE RECORDS SUMMARY | 2024-03-27 20:55 | XMS_ITS | Encounter Summary ---
Author Organization [facility] [place] [address] Care Team Providers Care Bus Driver Name Role Phone Bell Navarrete MD Primary Care Provider [phone] Encounter Details Date Type Department Care Team (Late st Contact Info) Description 02/01/2012 External Results [place] [address] Gilmer Wilson MD [address] [place] [address] Social History Tobacco Use Types Packs/Day Years [...] PM EDT TH Visit (TeleHealth) [place] [address] Pasha Wood MD [facility] [place] [address] documented as of this encounter Procedures Procedure Name Priority Date/Time Associated Diagnosis Comments TSH Routine 01/30/2012 documented in this encounter Results * TSH (01/30/2012) Thyroid Stimulating Hormone 19.4 Blood specimen (specimen) 01/30/2012 Gilmer Wilson MD CHEMISTRY ORDERABLES documented in this encounter Visit Diagnoses Not on filedocumented in this encounter Care Teams Bus Driver Relationship Specialty Start Date End Date Bell Navarrete MD [address] [place] [address] PCP - General 06/21/10 06/27/16 documented as of this encounter
--- OUTSIDE RECORDS SUMMARY | 2024-03-27 20:55 | XMS_ITS | Encounter Summary ---
Author Organization [facility] [place] [address] Care Team Providers Care Media Reconciliation Specialist Name Role Phone Bell Navarrete MD Primary Care Provider [phone] Encounter Details Date Type Department Care Team (Late st Contact Info) Description 10/13/2011 1:25 PM EDT Anesthesia [place] [address] Jacob Connelly MD [facility] [address] [place] [address] Sha Muñoz MD [facility] [place] [address] Anesthesia Record Procedure Summary Procedure Name Responsible Anesthesiologist Anesthesia Start Time Anesthesia Stop Time THYROIDECTOMY, TOTAL OR COMPLETE (WRVU 15.04) (Neck) Jacob Connelly MD 10/13/11 1325 10/13/11 1556 Events Date Time Event Comment 10/13/2011 1202 1325 Start 1556 Stop Meds * Agents No agents on file. * Blood No blood administrations on file. Lines, Drains, and Airways Type Details Placement Removal Incision 10/13/11; neck; 05/26/14 10/13/11 0000 by Elena Townsend APRN 05/26/14 0000 by Flavio Soto, RN (RETIRED) Peripheral IV Line - Single Lumen 10/13/11; 1146; 10/14/11; 0933 10/13/11 1146 by Elisha Hernández RN 10/14/11 0933 by Rajiv Dugan, RN Drain/Device Site 10/13/11; 1517; anterior; neck (#7 flat drain.); 10/14/11; 0840 (removed by MD) 10/13/11 1517 by Elena Townsend APRN 10/14/11 0840 by Rajiv Dugan, RN documented in this encounter Social History Tobacco Use Types Packs/Day Years Used Date Smoking Tobacco: Never Sex and Gender Information Value Date Recorded Sex Assigned at Not on file Gender Identity Not on file Sexual Orientation Not on file documented as of this encounter OR Notes * Anesthesia Postprocedure Evaluation - Jacob Connelly MD - 10/14/2011 12:00 AM EDT Patient: Page Katz Procedure(s) Performed: THYROIDECTOMY, TOTAL OR COMPLETE; FACIAL NERVE MONITORING, SETUP Patient location: PACU Post-op pain: Adequate analgesia Post-op nausea: no nausea or vomiting Last Vitals: Filed Vitals: 10/14/11 0726 BP: 140/68 Pulse: 76 Temp: 36.7 ??C (98.1 ??F) Resp: 14 Post-op cardiovascular and respiratory status: is stable Level of consciousness: awake Complications: no apparent complications Fluid Status: normal * Anesthesia Preprocedure Evaluation - Sha Muñoz MD - 10/12/2011 3:55 PM EDT Anesthesia Evaluation Patient summary reviewed and Nursing notes reviewed No hx of anesthetic complications Airway Mallampati: III TM distance: >3 FB Neck ROM: full Dental - normal exam Pulmonary (-) COPD, asthma, recent URI and sleep apnea Cardiovascular Exercise tolerance: good (+) hypertension, (-) past [place] and CAD Neuro/Psych (+) psychiatric history (Depression) GI/Hepatic/Renal (-) GERD, liver disease and renal disease Comments: Marco's disease Endo/Other (+) hypothyroidism, arthritis, (-) Type I DM and Type II DM Comments: Obesity Abdominal Anesthesia Plan ASA 3 General with intravenous induction GA with ETT discussed and planned. Anesthetic plan and risks discussed with patient. Plan discussed with RETAIL SECURITY PROFESSIONAL. documented in this encounter Miscellaneous Notes * Addendum Note - Jacob Connelly MD - 10/18/2011 1:32 PM EDT Addendum created 10/18/11 1332 by Jacob Connelly MD Modules edited:IP Notes Section documented in this encounter Plan of Treatment Upcoming Encounters Date Type Department Care Team (Late st Contact Info) Description 05/15/2024 1:00 PM EDT TH Visit (TeleHealth) [place] [address] Pasha Wood MD [facility] [place] [address] documented as of this encounter Visit Diagnoses Not on filedocumented in this encounter Care Teams Media Reconciliation Specialist Relationship Specialty Start Date End Date Bell Navarrete MD [address] [place] [address] PCP - General 06/21/10 06/27/16 documented as of this encounter
--- OUTSIDE RECORDS SUMMARY | 2024-03-27 20:55 | XMS_ITS | Encounter Summary ---
Author Organization [facility] [place] [address] Care Team Providers Care Mail Carrier Technician Name Role Phone Bell Navarrete MD Primary Care Provider [phone] Reason for Visit * Reason Onset Date Comments Results 07/21/2013 Encounter Details Date Type Department Care Team (Late st Contact Info) Description 07/21/2013 Telephone [place] [address] Alfredito Alonzo Jr., MD [facility] [place] [address] Results Social History Tobacco Use Types Packs/Day Years Used Date Smoking Tobacco: Never Alcohol Use Standard Drinks/Week Comments No 0 (1 standard drink = 0.6 oz pur e alcohol) Sex and Gender Information Value Date Recorded Sex Assigned at Not on file Gender Identity Not on file Sexual Orientation Not on file documented as of this encounter Miscellaneous Notes * Telephone Encounter - Alfredito Alonzo Jr., MD - 07/21/2013 3:43 PM EST I called and left her message that her stone analysis was now resulted: 60%Calcium oxalate monohydrate; 20%Calcium oxalate dihydrate, 20%Calcium phosphate (apatite) We will review when she returns for scheduled follow up in July 2013 documented in this encounter Plan of Treatment Upcoming Encounters Date Type Department Care Team (Late st Contact Info) Description 05/15/2024 1:00 PM EDT TH Visit (TeleHealth) [place] [address] Pasha Wood MD [facility] [place] [address] documented as of this encounter Visit Diagnoses Not on filedocumented in this encounter Care Teams Mail Carrier Technician Relationship Specialty Start Date End Date Bell Navarrete MD [address] [place] [address] PCP - General 06/21/10 06/27/16 documented as of this encounter
--- OUTSIDE RECORDS SUMMARY | 2024-03-27 20:55 | XMS_ITS | Encounter Summary ---
Author Organization [facility] [place] [address] Care Team Providers Care Incident Coordinator Name Role Phone Bell Navarrete MD Primary Care Provider [phone] Encounter Details Date Type Department Care Team (Late st Contact Info) Description 03/25/2012 External [place] [address] Provider, Scanning Social History Tobacco Use Types Packs/Day Years [...] PM EDT TH Visit (TeleHealth) [place] [address] Pasha Wood MD [facility] [place] [address] documented as of this encounter Procedures Procedure Name Priority Date/Time Associated Diagnosis Comments LAB SCAN Routine 03/25/2012 documented in this encounter Results * Scan Doc: Lab (03/25/2012) Scanning Provider MEDIA MGR SCAN EXT O RDR/RSLT documented in this encounter Visit Diagnoses Not on filedocumented in this encounter Care Teams Incident Coordinator Relationship Specialty Start Date End Date Bell Navarrete MD [address] [place] [address] PCP - General 06/21/10 06/27/16 documented as of this encounter
--- OUTSIDE RECORDS SUMMARY | 2024-03-27 20:55 | XMS_ITS | Encounter Summary ---
Author Organization [facility] [place] [address] Care Team Providers Care Coremaker Floor Name Role Phone Bell Navarrete MD Primary Care Provider Encounter Details Date Type Department Care Team (Late st Contact Info) Description 05/20/2013 External Results XRay at [address] [place] [address] Provider, Scanning Social History Tobacco Use Types [...] PM EDT TH Visit (TeleHealth) Rheumatology at [facility] [place] [address] Pasha Wood MD [facility] [place] [address] documented as of this encounter Procedures Procedure Name Priority Date/Time Associated Diagnosis Comments CT SCAN (SCAN) Routine 03/25/2013 documented in this encounter Results * Scan Doc: CT Scan (03/25/2013) Anatomical Region Laterality Modality Other Scanning Provider MEDIA MGR SCAN EXT O RDR/RSLT documented in this encounter Visit Diagnoses Not on filedocumented in this encounter Care Teams Coremaker Floor Relationship Specialty Start Date End Date Bell Navarrete MD [address] [place] [address] PCP - General 06/21/10 06/27/16 documented as of this encounter
--- OUTSIDE RECORDS SUMMARY | 2024-03-27 20:55 | XMS_ITS | Encounter Summary ---
Author Organization [facility] [place] [address] Care Team Providers Care Drafter Refrigeration Name Role Phone Bell Navarrete MD Primary Care Provider [phone] Encounter Details Date Type Department Care Team (Late st Contact Info) Description 10/13/2011 11:08 AM EDT - 10/13/2011 2:07 PM EDT Surgery [place] [address] Rick Liz MD [facility] [place] [address] THYROIDECTOMY, TOTAL OR COMPLETE (WRVU 15.04) Social History Tobacco Use Types Packs/Day Years Used Date Smoking Tobacco: Never Sex and Gender Information Value Date Recorded Sex Assigned at Not on file Gender Identity Not on file Sexual Orientation Not on file documented as of this encounter Last Filed Vital Signs Vital Sign Reading Time Taken Comments Blood Pressure 167/81 10/13/2011 11:10 AM EDT Pulse 78 10/13/2011 11:10 AM EDT Temperature 36.2 ??C (97.2 ??F) 10/13/2011 11:10 AM E DT Respiratory Rate 16 10/13/2011 11:10 AM EDT Oxygen Saturation 98% 10/13/2011 11:10 AM EDT Inhaled Oxygen Concentration - - [...] 4 business days to be ready. Dr. Liz will call you with this report as [...] a day until you speak with Dr. Liz about your path report. He will review your need to continue this at that time. If you notice a tingling sensation in your hands, feet, around your mouth, or develop muscle spasmsthen please call the General Surgery nurse at [phone], since this may mean that you need more calcium. Follow-up Appointment: Will be scheduled with Dr. Liz in 6 weeks Date and time as well as any required labs will be mailed to you Please call [phone] to confirm date and time of your [...] by calcium supplementation. Phone number for questions: [phone] before 5 PM weekdays [phone] after 5 PM and on weekends/holidays * Attachments The following attachments cannot be sent through Care Everywhere. * THYROIDECTOMY: WHAT TO EXPECT AT HOME (ARABIC) documented in this encounter Medications at Time of Discharge Medication Sig Dispensed Refills Start Date End Date Xdmzxhoeupogz-Rl-Sqlb-Mi nerals (ONE-A-DAY WOMENS FORMULA) 27-0.4 mg Tab [...] in this encounter H&P Notes * Rick Liz MD - 10/12/2011 6:26 PM EDT H&P INTERVAL NOTE - 24 HOUR UPDATE I have reviewed the pre-procedure H&P completed by Bell navarrete MD on 09/28/11. Condition unchanged since H&P originally performed. documented in this encounter Miscellaneous Notes * Discharge Summary - Constanza Chappell MD - 10/17/2011 11:52 AM EDT Patient ready for discharge. * Miscellaneous - Provider, Scanning - 10/17/2011 11:04 AM EDT * Op Note - Constanza Chappell MD - 10/13/2011 3:44 PM EDT [facility] Operative Note Patient Name: Paul Adames : [id number] MR#: [id number] Case Date: 10/13/2011 Surgeon: Surgeon(s) and Role: * RICK LIZ MD - Primary * CONSTANZA CHAPPELL MD [...] at the end of the procedure. Dr. Liz was present and participated in the entirety of the procedure. Disposition: awakened from anesthesia, extubated and taken to the recovery room in a stable condition, having suffered no apparent untoward event. The patient was transferred to the PACU for observation stay in Short Stay Unit. Condition: Doing well without problems * OR Attestation - Rick Liz MD - 10/13/2011 3:25 PM EDT Attestation: Case Date: 10/13/2011 I was present and I participated during the entire procedure (does not need to include opening and closing). RICK LIZ MD 10/13/2011 * Brief Op Note - Rick Liz MD - 10/13/2011 3:25 PM EDT Brief Operative Note Patient Name: aPul Adames : [id number] MR#: [id number] Case Date: 10/13/2011 Surgeon: Surgeon(s) and Role: * RICK LIZ MD - Primary * CONSTANZA CHAPPELL MD [...] PM EDT TH Visit (TeleHealth[place] [address] Pasha Wood MD [facility] [place] [address] documented as of this encounter Procedures Procedure [...] 3:28 PM EDT) Surgical Pathology Report ? [facility] ? Provider: ?? RICK LIZ Pt. Name: ?? PAUL ADAMES ? Acc #: ?[id number] ?Pt. ? Col Date: ?? 10/13/2011 ? [...] ? [facility] ? 10/20/11 Verified by: ? Black DO, Raegan C. ? Pathologist ? (Electronic Signature) ? The [...] inked black. ?External Surface: ?Purple-red, nodular. ? [facility] ? Provider: ?? RICK LIZ Pt. Name: ?? PAUL ADAMES ? Acc #: ?[id number] ?Pt. ? Col Date: ?? 10/13/2011 ? /Sex: ?1950,(60 years),Female ? Rec Date: ?? 10/13/2011 ? LOC: ?[facility] ? SURGICAL PATHOLOGY ?Parathyroid(s) ? Absent. ?Lesion: ?There are no lesions appreciated in the right ? thyroid lobe. ?Parenchyma: ?Red-brown, homogeneous, firm. ??No gross ? abnormalities appreciated. ? Sections/Processi ng: ?Five publications sales representative sections of right lobe ? submitted [...] ? red-brown, homogeneous. ? Sections/Processi ng: ?(B1) publications sales representative section of isthmus; (B2-B10) ? publications sales representative sections of the lesion with ? black-inked capsule; (R11-13) remaining isthmus. ? (R13) ??aje/JSB ? ---Clinical Information--- ? Specimen Submitted: ? A - Right lobe thyroid ? B - Left lobe thyroid ? Clinical History/Diagnosis : ? [facility] 10/13/2011 3:28 PM EDT Rick Liz MD PATHOLOGY/CYTOLOGY ORDERABLES Performing Organization Address [facility] de Phone Number TERESA MAYES * Specimen to Pathology (surgical or derm) (10/13/2011 3:06 PM EDT) AP Specimen 10/13/2011 3:06 PM EDT 10/13/2011 3:06 PM EDT Narrative TERESA MAYES - 10/13/2011 3:06 PM EDT Specimen requisition ordered. ??Separate Pathology report to follow Rick Liz MD PATHOLOGY/CYTOLOGY ORDERABLES Performing Organization Address [facility] Phone Number TERESA MAYES * Specimen to Pathology (surgical or derm) (10/13/2011 2:35 PM EDT) AP Specimen 10/13/2011 2:35 PM EDT 10/13/2011 2:35 PM EDT Narrative TERESA MAYES - 10/13/2011 2:35 PM EDT Specimen requisition ordered. ??Separate Pathology report to follow Rick Liz MD PATHOLOGY/CYTOLOGY ORDERABLES Performing Organization Address [facility] Phone Number TERESA MAYES documented in this encounter Visit Diagnoses Not on filedocumented in this encounter Administered Medications Inactive Administered Medications - up to 3 most recent administrations Medication Order MAR Action Action Date Dose Rate Site BUpivacaine-epiNEPHrine 0.25 %-1:200,000 injection ONCE PRN, Starting on Sun10/13/11 at 1345, Until Sun10/13/11 at 1802, Intra-Operative (Intra-Procedure), Routine Given 10/13/2011 1:45 PM EDT 25 mg 19- Surgical Site calcium citrate (CALCITRATE) tablet 950 mg 950 mg, Oral, 3 TIMES DAILY PRN, Starting on 10/13/11 at 1757, Until 10/14/11 at 1343, perioral [...] PRN, Starting on Sun10/13/11 at 1315, Until Sun10/14/11 at 1343, Pain, Routine Given 10/14/2011 2:56 [...] Routine 0600 (Given - Provid er: Noelle Eduardo, JOSEPH) losartan (COZAAR) tablet 75 mg (CANCELED) 75 [...] dose on Sun10/13/11 at 1815, Until Discontinued 1815 (Not Given - Provider: Delisa Treadwell [...] (Intra-Procedure), Routine 1345 (Given - Provider: Rick Liz MD) calcium citrate (CALCITRATE) tablet 950 mg [...] Recovery, Routine 1614 (Given - Provider: Trena Sen RN)1644 (Given - Provider: Trena Sen RN) morphine 4 mg/mL carpuject 1-4 mg (CANCELED) 1-4 mg, Intravenous, EVERY 4 HOURS PRN, Starting on Sun10/13/11 at 1845, Until 10/14/11 at 1343, Pain, Routine 1920 (Given - Provider: Delisa Treadwell, JOSEPH) OXYcodone (ROXICODONE) immediate release tablet 5-10 mg (CANCELED) 5-10 mg, Oral, EVERY 4 HOURS PRN, Starting on Sun10/13/11 at 1315, Until 10/14/11 at 1343, Pain, Routine 1800 (Given - Provider: Delisa Treadwell, JOSEPH)2240 (Given - Provider: Delisa Treadwell, RN) 0256 (Given - Provider: Noelle Eduardo RN) documented in this encounter Care Teams Drafter Refrigeration Relationship Specialty Start Date End Date Bell Navarrete MD [address] [place] [address] PCP - General 06/21/10 06/27/16 documented as of this encounter
--- OUTSIDE RECORDS SUMMARY | 2024-03-27 20:55 | XMS_ITS | Encounter Summary ---
Author Organization [facility] Address [facility] [place] [address] Care Team Providers Care Lining Layer Name Role Phone Bell Navarrete MD Primary Care Provider [phone] Encounter Details Date Type Department Care Team (Late st Contact Info) Description 07/02/2013 External [place] [address] Provider, Scanning Social History Tobacco Use Types [...] PM EDT TH Visit (TeleHealth) [place] [address] Pasha Wood MD [facility] [place] [address] documented as of this encounter Procedures Procedure Name Priority Date/Time Associated Diagnosis Comments SURGICAL PATHOLOGY SCAN Routine 06/24/2013 documented in this encounter Results * Scan Doc: Surgical Pathology (06/24/2013) Alfredito Alonzo Jr., MD MEDIA MGR SCAN EXT ORDR/RSLT documented in this encounter Visit Diagnoses Not on filedocumented in this encounter Care Teams Lining Layer Relationship Specialty Start Date End Date Bell Navarrete MD [address] [place] [address] PCP - General 06/21/10 06/27/16 documented as of this encounter
--- OUTSIDE RECORDS SUMMARY | 2024-03-27 20:55 | XMS_ITS | Encounter Summary ---
Author Organization [facility] [place] [address] Care Team Providers Care Identification Officer Name Role Phone Bell Pereira MD Primary Care Provider [phone] Encounter Details Date Type Department Care Team (Late st Contact Info) Description 06/19/2013 11:58 AM EST - 06/19/2013 4:12 PM EST [place] [phone] Inessa Alonzo Jr., MD [facility] [place] [address] NEPHROLITHOTOMY, (PCNL) PERCUTANEOUS, COMPLEX (EG STONE > 2CM) (WRVU 20.91) Social History Tobacco Use Types Packs/Day Years [...] Sign Reading Time Taken Comments Blood Pressure 139/62 06/19/2013 11:25 AM EST Pulse 80 06/19/2013 11:25 AM EST Temperature 36.6 ??C (97.9 ??F) 06/19/2013 11:[address] Respiratory Rate 16 06/19/2013 11:25 AM EST Oxygen Saturation 97% 06/19/2013 11:25 AM EST Inhaled Oxygen Concentration - - Weight 104.3 kg (230 lb) 06/19/2013 11:25 AM EST Height 157.5 cm (5' 2) 06/19/2013 11:25 AM EST Body Mass Index 42.07 06/19/2013 11:25 AM EST documented in this encounter Discharge Instructions * Patient Instructions* Pasha Francisco MD - 06/20/2013 1:58 PM EST DISCHARGE INSTRUCTIONS CALL YOUR PHYSICIAN IF: ?? You have a fever greater than 101 degrees F within one month of your surgery. ?? You have diarrhea or vomiting for more than 24 hours, or stop having bowel movements or passing gas. ?? You have worsening pain, not controlled with your pain medication. ?? You develop redness, swelling, or new drainage from your wound. ?? You have any other acute change in your health status. MEDICATIONS You make take acetaminophen (Tylenol) for pain control. For intense pain, you have been prescribed narcotic pain medications (oxycodone) to control your discomfort after surgery. Do NOT use alcohol, drive, or operate heavy or complex machinery while taking these medications, asthey make impair your ability to perform these activities safely. Narcotic pain medications may cause constipation. Stool softeners, such as Colace; mild laxatives, such as Milk of Magnesia, Sennakot, or Ducolax tabs; or enemas may be used if needed and are vnoa-xzf-idpwtih medications available at most local pharmacies. Prunes or prune juice, taken daily, can also be helpful for constipation treatment or prevention and are available at most supermarkets. CARE OF THE DRAINAGE BAG The drainage bag should be secured such that it never pulls on the nephrostomy tube. It is important to wash your hands before and after emptying the drainage bag to prevent possible infection. The drainage bag should be emptied as needed. The bag and appliance can be removed when the incision stops draining, or when the amount of drainage can be managed with simple cotton gauze. Once the bag is removed, please do not shower for 24 hours and leave the incision open to air. DRIVING RESTRICTIONS Do not operate a vehicle if you are too sore from surgery to enter or exit your vehicle comfortably, or if you are too sore to easily check your blind spot. No driving while using prescription pain medications. ACTIVITIES No heavy lifting. You may lift what is comfortable to lift with one arm. Nothing greater than 10 pounds (e.g., a full gallon jug) until re-evaluated by your physician. Discuss return to work or school with your physician. Take several slow, short walks each day for the first two weeks, and gradually increase your distance. Exercise will assist in your recovery. DIET Eat a well-balanced diet. Fresh fruits, vegetables and fiber-containing foods are recommended. Thiswill assist in wound healing. It is especially important to drink plenty of fluids, especially water. Aim to keep your urine clear or pale yellow. WOUND CARE You can shower 48 hours after discharge. Wash the incision area gently. Pat the incision dry with aclean, dry towel. Do not soak the wound (avoid spas, pools, and bathtubs) until it is fully healed.Do not use creams, oils, or ointments on the wound. Keep the wound open to air if it is not draining. Do not remove sutures or samra. COMFORT Some incision soreness can be expected. Take your pain medication as needed and prescribed. Slowly decrease your use of pain medication as pain lessens. CONTACT INFORMATION To contact your provider or change your appointment, please call the Urology clinic at during business hours or during off-hours. FOLLOW-UP APPOINTMENT Future Appointments and Orders Future Appointments: Provider: Department: Dept Phone: Center: 07/02/2013 1:30 PM Procedure Urology Urology [phone] [facility] 07/02/2013 1:45 PM Inessa Alonzo Jr., MD [facility] [phone] None Please remember that you have a ureteral stent in place. A stent is not a permanent device and mustbe removed by your urologist; failure to remove a stent may result in the need for more procedures. documented in this encounter Medications at Time of Discharge Medication Sig Dispensed Refills Start Date End Date Ikdnpjxudigxt-Jh-Joho-M inerals (ONE-A-DAY WOMENS FORMULA) 27-0.4 mg Tab 08/19/2009 OXYcodone (ROXICODONE) 5 mg immediate release tablet Take 1-2 tablets by mouth every 4 hours as needed for Pain. 40 tablet 0 06/20/2013 07/02/2013 senna-docusate (PERICOLACE) 8.6-50 mg per tablet Take 2 tablets by mouth 2 times daily. 60 tablet 0 06/20/2013 07/02/2013 meloxicam (MOBIC) 7.5 mg tablet Take 15 mg by mouth daily. 05/29/2014 levothyroxine (SYNTHROID) 150 mcg tablet Take 1 tablet by mouth daily. 90 tablet 3 02/01/2012 06/08/2022 PREDNISOLONE ORAL Take 4 mg by mouth daily. 10/27/2015 hydrochlorothiazide (HYDRODIURIL) 25 mg tablet 08/19/2009 05/13/2014 aspirin ([facility] ASPIRIN) 81 mg chewable tablet 08/19/2009 sertraline (ZOLOFT) 100 mg tablet 50MG = 1 Tablet(s), PO, Once daily 08/19/2009 05/13/2014 documented as of this encounter Progress Notes * Solomon Lanza RN - 06/20/2013 5:42 PM EST The patient has met discharge criteria per [...] and symptoms have been reviewed with patient. PIV removed, patient and family deny questions and concerns at this time, taken to [facility] via wheelchair with RN. SOLOMON LANZA RN * Chantel Banuelos RN - 06/20/2013 1:12 PM EST Met with Kathy and James re discharge. She is independent but has a h/o fibromylgia and is awaiting her Prednisone 4mg For today. RN has contacted the pharmacy for this . Reviewed need for 8-10 glasses/day of fluid , be alcantara of constipation, and no strenuous activity. Awaiting the results ofCT for removal of nephrostomy tube . Deny any needs and uses [facility] in [place], [place] for prescription medications. RN tpo review instructions, medications, activity and f/u appointment prior to discharge. CHANTEL BANUELOS RN 06/20/2013 * Pasha Francisco MD - 06/20/2013 10:01 AM EST UROLOGY INPATIENT PROGRESS NOTE ID: Paul Adames is a 62 y.o. female POD # 1 s/p LEFT PCNL. 24-HOUR EVENTS ?? Admitted to Urology service. ?? No events overnight. SUBJECTIVE Pain is well-controlled. Denies nausea, vomiting, chest pain, and shortness of breath. VITALS Current 24 Hours Temp: 36.9 ??C (98.4 ??F) Temp: [36.2 ??C (97.2 ??F)-36.9 ??C (98.4 ??F)] Heart Rate: 74 Heart Rate: [67-106] BP: 123/54 mmHg BP: (123-170)/(54-89) Resp: 16 Resp: [16-20] SpO2: 92 % SpO2: [92 %-100 %] 06/19 0701 - 06/20 0700 In: 1667.7 [P.O.:340; I.V.:1277.7] Out: 300 [Urine:300] PHYSICAL EXAM GEN: Resting comfortably in bed, conversant, NAD. CHEST: CTAB. CV: RRR, normal S1 S2 sounds. ABD: Soft, obese, mildly tender at LEFT flank, BS present. Nephrostomy tube with Pollack wire in place draining SSF. EXTR: Moving spontaneously. Recent Labs Basename 06/20/13 0450 06/19/13 1730 WBC 19.9* 13.8* HGB 12.4 13.1 HCT 39.4 41.6 PLATELET 406* 429* Recent Labs Basename 06/20/13 0450 06/19/13 1730 NA 135 139 K 4.0 4.1 CL 98 102 CO2 23 25 BUN 11 11 CREATININE 0.71 0.74 GLUCOSE 132 126 CALCIUM 8.6 8.8 MAGNESIUM -- -- PHOS -- -- ASSESSMENT/PLAN 62 y.o. female s/p LEFT PCNL. Doing well. Transition to oral pain regimen and diet. CT abdomen thismorning. If CT unremarkable, may remove nephrostomy tube and Major catheter this afternoon, with likely discharge. Stent removal in clinic in two weeks. * Ghislaine Felder MD - 06/20/2013 12:33 AM EST Urology Cross Cover Post-Op Check: Paul Alesia Sterling 62 y.o. female : 1950 MR# [id number] Date of Admission: 06/19/2013 ID: 62 year old female s/p Left percutaneous nephrolithotomy for staghorn stone. 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 Denies fever/chills, chest pain, shortness of breath, nausea/vomiting. Vitals: Temp: [36.2 ??C (97.2 ??F)-36.8 ??C (98.2 ??F)] Heart Rate: [67-106] Resp: [16-20] BP: (131-170)/(66-89) SpO2: [93 %-100 %] PE: Gen: NAD, alert and oriented, resting comfortably in bed CV: regular rate and rhythm Pulm: clear to auscultation anteriorly Abd: obese, soft, non-tender, Left flank nephrostomy tube in place with blood tinged urine, major in place with blood tinged urine Ext: warm and well perfused Access: PIV I&Os: 06/19 0701 - 06/20 0700 In: 551 [P.O.:100; I.V.:401] Out: 300 [Urine:300] Labs: Recent Labs Basename 06/19/13 1730 WBC 13.8* HGB 13.1 HCT 41.6 PLATELET 429* Recent Labs Basename 11/21/13 1730 NA 139 K 4.1 CL 102 CO2 25 BUN 11 CREATININE 0.74 GLUCOSE 126 MAGNESIUM -- PHOS -- A/P: 62 year old female s/p above procedure, doing well. - pain well controlled on current regimen - adequate UOP, continue to monitor strict I&Os - continue routine post-op care as per primary team GHISLAINE FELDER MD * Joe Seals RN - 06/19/2013 6:37 PM EST 1830 Feeling a lot better. Pressure decreasing. Tolerating po fluids without incuidence. Meets discharge criteria, report called to receiving de la o * Loulou Bro RN - 06/19/2013 5:55 PM EST 1800: break coverage done, vocational psychologist instruction given to patient, understands, vital signs stable. documented in this encounter H&P Notes * Erum Palomo MD - 06/19/2013 12:45 PM EST Patient Name: Paul Adames Patient Age: 62 y.o. Birthdate: 1950 Admit date: 06/19/2013 Attending Physician: Inessa Alonzo Jr., MD Pre-Op H&P Update 62 y.o. woman presenting for planned LEFT percutaneous nephrolithotomy. She has had no changes since her office visit on 05/28. A/P. Consent verified and site marked. Proceed as planned. ERUM PALOMO MD documented in this encounter Procedure Notes * Awilda Oakes - 06/20/2013 11:14 PM ESTAssociated Order(s): SCAN DOC: IMPLANTABLE DEVICES documented in this encounter Miscellaneous Notes * Discharge Summary - Pasha Francisco MD - 06/20/2013 5:34 PM EST DISCHARGE SUMMARY Patient Name: Paul Adames Age: 62 y.o. Date of : 1950 Date of Admission: 06/19/2013 Date of Discharge: 06/20/2013 Attending Provider: Inessa Alonzo Jr., MD Discharge Diagnoses (Hospital Problems) There are no hospital problems to display for this patient. Secondary Diagnoses (Chronic Problems) Active Non-Hospital Problems Diagnosis ??? S/P thyroidectomy ??? Thyroid cancer ??? Hypothyroidism Operations and Major Procedures Operations NEPHROLITHOTOMY, (PCNL) PERCUTANEOUS, OVER 2CM - PRONE, LASER, C-ARM, LITHOCLAST; PERCUTANEOUS INTRO GUIDE WIRE TO ACCESS RENAL PELVIS,AND OR URETER, W\DILATION; CYSTO, RETROGRADE, URETEROPYELOGRAPHY; MODIFIER HOLMIUM LASER History of Presentation Paul Adames is a 62 y.o. female without prior history of urolithiasis who has had a mild, dull ache at the LEFT flank for several months. She reports no associated nausea, stone passage, or gross hematuria. CT from OSH showed a large (> 2 cm) branched LEFT renal stone. She has elected to undergo LEFT percutaneous nephrolithotomy. Hospital Course Paul Adames underwent LEFT percutaneous nephrolithotomy on 06/19/2013 and tolerated the procedure well without complications. Following a brief recovery in the Post-Anesthesia Care Unit, she was admitted to the Urology service for post-operative management. The post-operative course was unremarkable. The LEFT nephrostomy tube was removed on post-op day # 1 with no complications. She tolerated an oral diet and was able to ambulate and void spontaneously.She was deemed medically appropriate for discharge on post-op day # 1. Physical Exam at Discharge GEN: Alert and conversant. CHEST: Clear to auscultation. CV: Normal sinus rhythm. ABD: Soft, appropriately tender at LEFT flank. EXTR: Moving spontaneously. Lab Data and Studies Recent Labs Basename 06/20/13 0450 WBC 19.9* HGB 12.4 PLATELET 406* Recent Labs Basename 06/20/13 0450 NA 135 K 4.0 CL 98 CO2 23 BUN 11 CREATININE 0.71 Discharge to: Home Discharge Medications Current Discharge Medication List New Meds Dose Details OXYcodone (ROXICODONE) 5 mg immediate release tablet 5-10 mg Take 1-2 tablets by mouth every 4 hours as needed for Pain. Qty: 40 tablet Refills: 0 senna-docusate (PERICOLACE) 8.6-50 mg per tablet 2 tablets Take 2 tablets by mouth 2 times daily. Qty: 60 tablet Refills: 0 Continued medications, unchanged Dose Details meloxicam (MOBIC) 7.5 mg tablet 15 mg Take 15 mg by mouth daily. levothyroxine (SYNTHROID) 150 mcg tablet 150 mcg Take 1 tablet by mouth daily. Qty: 90 tablet Refills: 3 PREDNISOLONE ORAL 4 mg Take 4 mg by mouth daily. hydrochlorothiazide (HYDRODIURIL) 25 mg tablet aspirin ([facility] [facility] ASPIRIN) 81 mg chewable tablet Yavihbexafrrb-Yi-Vflg-Minerals (ONE-A-DAY WOMENS FORMULA) 27-0.4 mg Tab sertraline (ZOLOFT) 100 mg tablet 50MG = 1 Tablet(s), PO, Once daily Updated Allergies and Drug Reactions Allergies Allergen Reactions ??? Other (Unclassified Drug) Other (See Comments) Pain Patch(drug unknown) - confused hallucinations Instructions Given to Patient at Discharge Provider Instructions DISCHARGE INSTRUCTIONS CALL YOUR PHYSICIAN IF: ?? You have a fever greater than 101 degrees F within one month of your surgery. ?? You have diarrhea or vomiting for more than 24 hours, or stop having bowel movements or passing gas. ?? You have worsening pain, not controlled with your pain medication. ?? You develop redness, swelling, or new drainage from your wound. ?? You have any other acute change in your health status. MEDICATIONS You make take acetaminophen (Tylenol) for pain control. For intense pain, you have been prescribed narcotic pain medications (oxycodone) to control your discomfort after surgery. Do NOT use alcohol, drive, or operate heavy or complex machinery while taking these medications, asthey make impair your ability to perform these activities safely. Narcotic pain medications may cause constipation. Stool softeners, such as Colace; mild laxatives, such as Milk of Magnesia, Sennakot, or Ducolax tabs; or enemas may be used if needed and are cetj-cnh-rxgejtj medications available at most local pharmacies. Prunes or prune juice, taken daily, can also be helpful for constipation treatment or prevention and are available at most supermarkets. CARE OF THE DRAINAGE BAG The drainage bag should be secured such that it never pulls on the nephrostomy tube. It is important to wash your hands before and after emptying the drainage bag to prevent possible infection. The drainage bag should be emptied as needed. The bag and appliance can be removed when the incision stops draining, or when the amount of drainage can be managed with simple cotton gauze. Once the bag is removed, please do not shower for 24 hours and leave the incision open to air. DRIVING RESTRICTIONS Do not operate a vehicle if you are too sore from surgery to enter or exit your vehicle comfortably, or if you are too sore to easily check your blind spot. No driving while using prescription pain medications. ACTIVITIES No heavy lifting. You may lift what is comfortable to lift with one arm. Nothing greater than 10 pounds (e.g., a full gallon jug) until re-evaluated by your physician. Discuss return to work or school with your physician. Take several slow, short walks each day for the first two weeks, and gradually increase your distance. Exercise will assist in your recovery. DIET Eat a well-balanced diet. Fresh fruits, vegetables and fiber-containing foods are recommended. Thiswill assist in wound healing. It is especially important to drink plenty of fluids, especially water. Aim to keep your urine clear or pale yellow. WOUND CARE You can shower 48 hours after discharge. Wash the incision area gently. Pat the incision dry with aclean, dry towel. Do not soak the wound (avoid spas, pools, and bathtubs) until it is fully healed.Do not use creams, oils, or ointments on the wound. Keep the wound open to air if it is not draining. Do not remove sutures or samra. COMFORT Some incision soreness can be expected. Take your pain medication as needed and prescribed. Slowly decrease your use of pain medication as pain lessens. CONTACT INFORMATION To contact your provider or change your appointment, please call the Urology clinic at during business hours or during off-hours. FOLLOW-UP APPOINTMENT Future Appointments and Orders Future Appointments: Provider: Department: Dept Phone: Center: 07/02/2013 1:30 PM Procedure Urology Urology [phone] [facility] 07/02/2013 1:45 PM Inessa Alonzo Jr., MD [facility] [phone] None Please remember that you have a ureteral stent in place. A stent is not a permanent device and mustbe removed by your urologist; failure to remove a stent may result in the need for more procedures. Future Appointments and Orders Future Appointments: Provider: Department: Dept Phone: Center: 07/02/2013 1:30 PM Procedure Urology Urology [phone] [facility] 07/02/2013 1:45 PM Inessa Alonzo Jr., MD [facility] Urology [phone] None Provider Contact Information To contact your provider or change your appointment, please call the Urology clinic at during business hours or during off-hours. Discharge References/Attachments Discharge References/Attachments None Discharged by PASHA FRANCISCO MD on 06/20/2013 CC: PCP: BELL PEREIRA MD Referring: No referring provider defined for this encounter. * Op Note - Erum Palomo MD - 06/20/2013 11:08 AM EST [facility] [place] Operative Note Patient Name: Paul Adames : [id number] MR#: [id number] Case Date: 06/19/2013 Surgeon: Surgeon(s) and Role: * Inessa Alonzo Jr., MD - Primary * Erum Palomo MD - Resident-Surgeon Chief Preoperative diagnosis: LEFT STAGHORN STONE Postoperative diagnosis: LEFT STAGHORN STONE Procedure(s): left NEPHROLITHOTOMY, (PCNL) PERCUTANEOUS, OVER 2CM PERCUTANEOUS INTRO GUIDE WIRE TO ACCESS RENAL PELVIS,AND OR URETER, W\DILATION CYSTO, RETROGRADE, URETEROPYELOGRAPHY MODIFIER HOLMIUM LASER Anesthesia: General Findings: Access obtained through mid renal calyx. Stones cleared with lithoclast and basket extraction. Stone free at conclusion. 7F variable stent placed. Complications: none Fluids: 1700cc crystalloid Estimated Blood Loss: 150cc Drains: 7F x variable left ureteral stent, 24F [place] neph tube with 5F pollock re-entry catheter, major Disposition: awakened from anesthesia, extubated and taken to the recovery room in a stable condition, having suffered no apparent untoward event. Condition: doing well without problems (Please see the Surgical Encounter Summary for any Implant and Specimen details pertinent to this patient.) HPI/Surgical Indications: Paul Adames is a 62 y.o. woman who presented with flank discomfort and was found to have large burden left renal stones. She presents for planned PCNL. Procedure Description: The patient was identified and greeted in the preoperative holding area. She was marked and consentwas verified. She was brought to the operating room and general anesthesia was induced on the stretcher. She was then turned to the prone position on the OR table and care taken to pad all pressure points. She was secured to the table. A standard time-out was performed. The flexible cystoscope was then inserted through the urethra and into the bladder while the patient was in the prone position. The left ureteral orifice was identified and cannulated using a glide wire. The cystoscope was removed and a 5-Swazi [place] catheter was passed over the wire and seen to be in good position within the renal pelvis. A 20F major catheter was then placed and the balloon inflated with 10cc sterile water. Omnipaque contrast was instilled through the [place] catheter to opacify the collecting system. A mid renal calyx was chosen for access. This would require intercostal access. Using biplanar fluoroscopy in the AP and 25 degree oblique planes, this calyx was targeted using the bullseye technique.At first there was interference from a rib, so the access technique was adapted to triangulate intothe calyx. The needle was advanced under fluoroscopic guidance. When it was felt to be in the proper position based on fluoroscopy, the inner cannula of the needle was removed and a glidewire was inserted and seen to pass down the ureter on fluoroscopy. The access needle was removed, and the inner cannula of the 8/10 dilator was passed over the Randolph wire to gently dilate the tract. The dilator was removed, and an angiographic catheter was placed over the Glidewire. This was used to redirect the wire out the urethra, obtaining xloabjv-cnx-efzxsfi access. The wire was exchanged for a Superstiff. The angiographic catheter was removed. An 8/10 dilator was placed over the superstiff wire. The inner cannula was removed, and an additional Glidewire was placed down the 8/10 dilator. This wire also passed out through the urethra. An angiographic catheter was passed over the Randolph and it was exch anged for an additional Superstiff. The 8/10 dilator was removed. A skin incision measuring approximately 1 cm was made. The distal ends of the wires were secured to the drape. The NephroMax balloon was then inserted over a wire and on fluoroscopy was seen to be in good position within the calyx. The balloon was then inflated with contrast to a pressure of 14 atmospheres. The 30-Swazi access sheath was easily placed over the balloon and seen on fluoroscopy to be in good position within the calyx. The balloon was then deflated and removed, and the rigid nephroscope was inserted. A two prongedgrasper was used to extract blood clots from the collecting system. Large stones were visualized within the renal pelvis. The Lithoclast was used to fragment and remove the stones. The flexible cystoscope was then inserted and the collecting system systematically inspected. The N-Compass basket wasused to extract residual stone fragments. Small fragments were irrigated out of the calyces to the renal pelvis. The rigid nephroscope was reinserted and additional stone fragments were suctioned out. Using the flexible scope, a mapping pyelogram was performed after instillation of omnipaque contrast. The entire collecting system was visualized. After the flexible cystoscope was removed, the flexible ureteroscope was introduced to perform antegrade ureteroscopy. The entire ureter was inspected.Some stone and clot debris was basket extracted or irrigated down to the bladder. Before removing the ureteroscope, a glide wire was passed through it and left in the bladder. The rigid nephroscope was then reinserted. The Randolph wire was backloaded into the scope and in an antegrade fashion, a 7F variable length stent was placed. The distal coil was seen fluoroscopically to be in good position inthe bladder and the proximal coil was visualized to be in good position in the renal pelvis. The rigid nephroscope was removed and a 24 faroese [place] catheter was passed through the access sheath over the working wire. It was seen to be within good position in the renal pelvis fluoroscopically. A nephrostogram was performed, and there was no extravasation of contrast. The renal access sheath was pulled back on the nephrostomy tube, cut with scissors and removed. Direct pressure was held on the tract to minimize bleeding. The c- arm was moved over the chest and there was no hydrothorax or pneumothorax visualized. The patient was placed in Trendelenburg position and the c-arm was obliqued to monitor for fluid in the chest. There was no evidence for hydro or pneumothorax. A 5F [place] catheter was passed over the working wire and into the [place] nephrostomy tube. It was seen on fluoroscopy to be in good position in the proximal ureter. The wires were removed and the nephrostomy tube was secured to the skin using silk sutures. A bulky dry gauze dressing was placed. The dressing andtube were secured with tape and the tube was placed to gravity drainage. The patient was moved backto the supine position on the stretcher, awakened from anesthesia and extubated. She was taken to the recovery area in stable condition. * OR Attestation - Inessa Alonzo Jr., MD - 06/19/2013 5:30 PM EST Attestation: Case Date: 06/19/2013 I was present and I participated during the entire procedure. INESSA ALONZO JR, MD 06/19/2013 * Brief Op Note - Erum Palomo MD - 06/19/2013 4:45 PM EST Brief Operative Note Patient Name: Paul Adames : [id number] MR#: [id number] Case Date: 06/19/2013 Surgeon: Surgeon(s) and Role: * Inessa Alonzo Jr., MD - Primary * Erum Palomo MD - Resident-Surgeon Chief Preoperative diagnosis: LEFT STAGHORN STONE Postoperative diagnosis: LEFT STAGHORN STONE Procedure(s): left NEPHROLITHOTOMY, (PCNL) PERCUTANEOUS, OVER 2CM PERCUTANEOUS INTRO GUIDE WIRE TO ACCESS RENAL PELVIS,AND OR URETER, W\DILATION CYSTO, RETROGRADE, URETEROPYELOGRAPHY MODIFIER HOLMIUM LASER Anesthesia: General Findings: Access obtained through mid renal calyx. Stones cleared with lithoclast and basket extraction. Stone free at conclusion. 7F variable stent placed. Complications: none Fluids: 1700cc crystalloid Estimated Blood Loss: 150cc Drains: 7F x variable left ureteral stent, 24F Suha neph tube with 5F pol[place] re-entry catheter, major Disposition: awakened from anesthesia, extubated and taken to the recovery room in a stable condition, having suffered no apparent untoward event. Condition: doing well without problems (Please see the Surgical Encounter Summary for any Implant and Specimen details pertinent to this patient.) * Miscellaneous - Provider, Scanning - 06/19/2013 1:59 PM EST documented in this encounter Plan of Treatment Upcoming Encounters Date Type Department Care Team (Late st Contact Info) Description 05/15/2024 1:00 PM EDT TH Visit (TeleHealth) [place] [address] Pasha Wood MD [facility] [place] [address] Pending Results Name Type Priority Associated Diagnoses Date /Time XR Fluoro OR c-arm storage only Imaging Routine 06/19/2013 5:22 PM EST Scheduled Orders Name Type Priority Associated Diagnoses Orde r Schedule XR Fluoro OR c-arm storage only Imaging Routine Once PRN (for Ra diant use) for 1 Occurrences starting 06/19/2013 until 06/19/2013 documented as of this encounter Procedures Procedure Name Priority Date/Time Associated Diagnosis Comments IMPLANTABLE DEVICES SCAN 013 11:[address] ABDOMEN AND PELVIS WO CONTRAST Routine 06/20/2013 11:04 AM EST DIFFERENTIAL, AUTOMATED Timed 06/20/20 13 4:50 AM EST CBC (WITH DIFF) Timed 06/20/2013 4:50 AM EST BASIC METABOLIC PANEL Timed 06/20/2013 4:50 AM EST DIFFERENTIAL, AUTOMATED STAT 06/19/20 13 5:30 PM EST CBC (WITH DIFF) STAT 06/19/2013 5:30 PM EST BASIC METABOLIC PANEL STAT 06/19/2013 5:30 PM EST SURGICAL PATHOLOGY REPORT Routine 2012 4:20 PM EST SPECIMEN TO PATHOLOGY Routine 06/19/2013 4:20 PM EST CYSTO, RETROGRADE, URETEROPYELOGRAPHY (WRVU 2.37) 06/19/2013 1:18 PM EST LEFT STAGHORN STONE PERCUTANEOUS INTRO GUIDE WIRE TO ACCESS RENAL PELVIS,AND OR URETER, W\DILATION (WRVU 3.37) 06/19/2013 1:18 PM EST LEFT STAGHORN STONE NEPHROLITHOTOMY, (PCNL) PERCUTANEOUS, COMPLEX (EG STONE > 2CM) (WRVU 20.91) 06/19/2013 1:18 PM EST LEFT STAGHORN STONE TYPE AND SCREEN, SDP (FUTURE SURGERY, [facility] SAME DAY PROGRAM ONLY) STAT 06/19/2013 11:02 AM EST ABO/RH TYPING STAT 06/19/2013 11:02 AM EST ANTIBODY SCREEN STAT 06/19/2013 11:02 AM EST documented in this encounter Results * SCAN DOC: IMPLANTABLE DEVICES (06/20/2013 11:14 PM EST) Narrative 06/20/2013 11:14 PM EST Procedure Note Provider, Scanning - 06/20/2013 11:14 PM EST Scanning Provider MEDIA MGR SCAN EXT O RDR/RSLT * CT abdomen & pelvis WO contrast (06/20/2013 11:04 AM EST) Anatomical Region Laterality Modality Abdomen, Pelvis Computed Tomogra phy 06/20/2013 11:0 4 AM EST Narrative 06/20/2013 11:[address] Abdomen / Pelvis Without Contrast Clinical History s/p PCNL eval for stones, ultra low dose please Comparison March 15, 2013. ?? Technique CT of the abdomen and pelvis without contrast. Findings Abdomen: ??Minimal dependent changes at the pulmonary bases. ??No suspicious masses or nodules seen. ??Post PCNL changes with left nephrostomy tube and a left ureteral stent in place. ??Small amount of retroperitoneal air and chest wall emphysema outlining the course of the external drain is seen consistent with recent surgery. ??No residual calcifications identified. Limited: non contrast-enhanced evaluation of the abdominal viscera again demonstrates a likely hyperdense cyst in the right kidney,diffusely decreased attenuation of the liver parenchyma consistent with fatty infiltration, and post cholecystectomy changes. ??Pancreas and adrenal glands are unremarkable. ?? The patient is status post colectomy with right-sided ileostomy. ??No retroperitoneal or mesenteric lymphadenopathy is seen. ??No free intraperitoneal air or fluid. Pelvis: ??Unremarkable anteverted uterus. Urinary bladder is decompressed with a Major catheter, contains distal pigtail of the left double-J stent and a small amount of intraluminal air. ??No adenopathy or free fluid is seen. Evaluation of bone windows demonstrates no suspicious osseous lesions. Impression Expected appearance post PCL without residual left renal calcifications. ??Other findings as above. Procedure Note Amandeep Staley MD - 06/20/[address] Abdomen / Pelvis Without Contrast Clinical History s/p PCNL eval for stones, ultra low dose please Comparison March 15, 2013. Technique CT of the abdomen and pelvis without contrast. Findings Abdomen: Minimal dependent changes at the pulmonary bases. No suspicious masses or nodules seen. Post PCNL changes with left nephrostomy tube sheila left ureteral stent in place. Small amount of retroperitoneal air andchest wall emphysema outlining the course of the external drain is seenconsistent with recent surgery. No residual calcifications identified. Limited: non contrast-enhanced evaluation of the abdominal viscera again demonstrates a likely hyperdense cyst in the right kidney,diffuselydecreased attenuation of the liver parenchyma consistent with fatty infiltration,and post cholecystectomy changes. Pancreas and adrenal glands areunremarkable. The patient is status post colectomy with right-sided ileostomy. No retroperitoneal or mesenteric lymphadenopathy is seen. No freeintraperitoneal air or fluid. Pelvis: Unremarkable anteverted uterus. Urinary bladder is decompressedwith a Major catheter, contains distal pigtail of the left double-J stent and asmall amount of intraluminal air. No adenopathy or free fluid is seen. Evaluation of bone windows demonstrates no suspicious osseous lesions. Impression Expected appearance post PCL without residual left renal calcifications.Other findings as above. Inessa Alonzo Jr., MD IMG CT ORDERABLES * (ABNORMAL) Differential, Automated (06/20/2013 4:50 AM EST) Neutrophil % 88.2(H) 34.0 - 71.0 % CERNER MILLENNIUM Neutrophil Absolute 17.60(H) 1.50 - 6.30 x10(3)/mc L CERNER MILLENNIUM Lymph % 7.3(L) 19.0 - 53.0 % CERNER MILLENNIUM Lymphocytes Abs 1.4 1.0 - 3.6 x10(3)/mc L CERNER MILLENNIUM Monocyte % 4.1 4.0 - 13.0 % CERNER MILLENNIUM Monocyte Abs 0.8 0.2 - 1.0 x10(3)/mc L CERNER MILLENNIUM Eos % 0.0 0.0 - 7.0 % CERNER MILLENNIUM Eosinophils Abs 0.0 0.0 - 0.5 x10(3)/mc L CERNER MILLENNIUM Basophil % 0.1 0.0 - 2.0 % CERNER MILLENNIUM Baso Absolute 0.0 0.0 - 0.2 x10(3)/mc L CERNER MILLENNIUM Immature Gran % 0.30 0.00 - 0.66 % CERNER MILLENNIUM Comment: Immature granulocytes(IG's)percentage and absolute count will include metamyelocytes, myelocytes, and promyelocytes. Blood smears from CBCs yielding IG's will be scanned manually for concordance. If this scan disagrees with the automated IG or if promyelocytes are noted, a manual differential will be performed. Immature Gran Absolute 0.06(H) 0.00 - 0.05 x10(3)/mc L CERNER MILLENNIUM Blood specimen (specimen) 06/20/2013 4:50 AM EST 06/20/2013 4:59 AM EST Inessa Alonzo Jr., MD HEMATOLOGY ORDERAB LES CERNER MILLENNIUM * Basic Metabolic Panel (non-fasting) (06/20/2013 4:50 AM EST) Glucose 132 60 - 199 mg/dL CERNER MILLENNIUM Comment:Diabetes: >=200 mg/d L plus symptoms Blood Urea Nitrogen 11 8 - 18 mg/dL CERNER MILLENNIUM Creatinine 0.71 0.70 - 1.20 mg/dL CERNER MILLENNIUM Comment: Please note that the pediatric reference intervals supplied above were not validated at [facility] [place]. Results from pediatric patients should be interpreted in conjunction to the patient's age, height and muscle mass. Sodium 135 135 - 145 mmol/L CERNER MILLENNIUM Potassium 4.0 3.5 - 5.0 mmol/L CERNER MILLENNIUM Comment: Please note: ??Patients with WBC >100,000 may have falsely elevated Potassium levels. ??For accurate Potassium quantification in these patients send serum separator tube (gold top) for subsequent determinations. ??Contact the Clinical Chemistry Laboratory if there are any questions. Chloride 98 98 - 107 mmol/L CERNER MILLENNIUM Carbon Dioxide 23 22 - 31 mmol/L CERNER MILLENNIUM Anion Gap 14 5 - 15 mmol/L CERNER MILLENNIUM Calcium [...] the following links into your internet browser. http://www.nkdep.nih.gov/lab-evaluation.shtml http://www.kidney.org/professionals/ Blood specimen (specimen) 06/20/2013 4:50 AM EST 06/20/2013 4:59 AM EST Narrative Resulting Agency Comment Spec In Lab Inessa Alonzo Jr., MD CHEMISTRY ORDERABL ES CERNER MILLENNIUM * (ABNORMAL) CBC (with Diff) (06/20/2013 4:50 AM EST) White Blood Cell 19.9(H) 4.0 - 10.0 x10(3)/mc L CERNER MILLENNIUM Red Blood Cell 4.18 3.93 - 5.22 x10(6)/mc L CERNER MILLENNIUM Hemoglobin 12.4 11.2 - 15.7 gm/dL CERNER MILLENNIUM Hematocrit 39.4 34.0 - 45.0 % CERNER MILLENNIUM Mean Cell Volume 94.3(H) 79.0 - 94.0 fL CERNER MILLENNIUM Mean Cell Hemoglobin 29.7 26.6 - 32.2 pg CERNER MILLENNIUM Mean Cell Hemoglobin Concentration 31.5(L) 32.0 - 36.5 gm/dL CERNER MILLENNIUM Platelet 406(H) 145 - 370 x10(3)/mc L CERNER MILLENNIUM RDW Standard Deviation 52.4(H) 35.0 - 46.0 fL CERNER MILLENNIUM RDW coefficient of variation 15.4(H) 10.9 - 14.4 % CERNER MILLENNIUM Mean Platelet Volume 9.2 9.0 - 12.0 fL CERNER MILLENNIUM Blood specimen (specimen) 06/20/2013 4:50 AM EST 06/20/2013 4:59 AM EST Narrative Resulting Agency Comment Spec In Lab Inessa Alonzo Jr., MD HEMATOLOGY ORDERAB LES CERNER MILLENNIUM * (ABNORMAL) Differential, Automated (06/19/2013 5:30 PM EST) Neutrophil % 87.9(H) 34.0 - 71.0 % CERNER MILLENNIUM Neutrophil Absolute 12.10(H) 1.50 - 6.30 x10(3)/mc L CERNER MILLENNIUM Lymph % 9.7(L) 19.0 - 53.0 % CERNER MILLENNIUM Lymphocytes Abs 1.3 1.0 - 3.6 x10(3)/mc L CERNER MILLENNIUM Monocyte % 1.7(L) 4.0 - 13.0 % CERNER MILLENNIUM Monocyte Abs 0.2 0.2 - 1.0 x10(3)/mc L CERNER MILLENNIUM Eos % 0.1 0.0 - 7.0 % CERNER MILLENNIUM Eosinophils Abs 0.0 0.0 - 0.5 x10(3)/mc L CERNER MILLENNIUM Basophil % 0.2 0.0 - 2.0 % CERNER MILLENNIUM Baso Absolute 0.0 0.0 - 0.2 x10(3)/mc L CERNER MILLENNIUM Immature Gran % 0.40 0.00 - 0.66 % CERNER MILLENNIUM Comment: Immature granulocytes(IG's)percentage and absolute count will include metamyelocytes, myelocytes, and promyelocytes. Blood smears from CBCs yielding IG's will be scanned manually for concordance. If this scan disagrees with the automated IG or if promyelocytes are noted, a manual differential will be performed. Immature Gran Absolute 0.05 0.00 - 0.05 x10(3)/mc L TERESA GARCIAENNIUM Blood specimen (specimen) 06/19/2013 5:30 PM EST 06/19/2013 5:57 PM EST Inessa Alonzo Jr., MD HEMATOLOGY ORDERAB LES TERESA MAYES * Basic Metabolic Panel (non-fasting) (06/19/2013 5:30 PM EST) Glucose 126 60 - 199 mg/dL [facility] RAHDAENNIUM Comment:Diabetes: >=200 mg/d L plus symptoms Blood Urea Nitrogen 11 8 - 18 mg/dL [facility] MILLENNIUM Creatinine 0.74 0.70 - 1.20 mg/dL CERNER MILLENNIUM Comment: Please note that the pediatric reference intervals supplied above were not validated at [facility] [place]. Results from pediatric patients should be interpreted in conjunction to the patient's age, height and muscle mass. Sodium 139 135 - 145 mmol/L CERNER MILLENNIUM Potassium 4.1 3.5 - 5.0 mmol/L CERNER MILLENNIUM Comment: Please note: ??Patients with WBC >100,000 may have falsely elevated Potassium levels. ??For accurate Potassium quantification in these patients send serum separator tube (gold top) for subsequent determinations. ??Contact the Clinical Chemistry Laboratory if there are any questions. Chloride 102 98 - 107 mmol/L CERNER MILLENNIUM Carbon Dioxide 25 22 - 31 mmol/L CERNER MILLENNIUM Anion Gap 12 5 - 15 mmol/L CERNER MILLENNIUM Calcium 8.8 8.5 - 10.5 mg/dL CERNER MILLENNIUM Est [...] the following links into your internet browser. http://www.nkdep.nih.gov/lab-evaluation.shtml http://www.kidney.org/professionals/ Blood specimen (specimen) 06/19/2013 5:30 PM EST 06/19/2013 5:57 PM EST Narrative Resulting Agency Comment Spec In Lab Inessa Alonzo Jr., MD CHEMISTRY ORDERABL ES TERESA MAYES * (ABNORMAL) CBC (with Diff) (06/19/2013 5:30 PM EST) White Blood Cell 13.8(H) 4.0 - 10.0 x10(3)/mc L CERNER MILLENNIUM Red Blood Cell 4.49 3.93 - 5.22 x10(6)/mc L CERNER MILLENNIUM Hemoglobin 13.1 11.2 - 15.7 gm/dL CERNER MILLENNIUM Hematocrit 41.6 34.0 - 45.0 % CERNER MILLENNIUM Mean Cell Volume 92.7 79.0 - 94.0 fL CERNER MILLENNIUM Mean Cell Hemoglobin 29.2 26.6 - 32.2 pg CERNER MILLENNIUM Mean Cell Hemoglobin Concentration 31.5(L) 32.0 - 36.5 gm/dL CERNER MILLENNIUM Platelet 429(H) 145 - 370 x10(3)/mc L CERNER MILLENNIUM RDW Standard Deviation 51.8(H) 35.0 - 46.0 fL CERNER MILLENNIUM RDW coefficient of variation 15.3(H) 10.9 - 14.4 % CERNER MILLENNIUM Mean Platelet Volume 9.4 9.0 - 12.0 fL CERNER MILLENNIUM Blood specimen (specimen) 06/19/2013 5:30 PM EST 06/19/2013 5:57 PM EST Narrative Resulting Agency Comment Spec In Lab Inessa Alonzo Jr., MD HEMATOLOGY ORDERAB LES TERESA DELGADOIUM * Surgical Pathology Report (06/19/2013 4:20 PM EST) Surgical Pathology Report ? [facility] ? Provider: ?? INESSA ALONZO JR ?? Pt. Name: ?? PAUL ADAMES ? Acc #: ?[id number] ?Pt. ? Col Date: ?? 06/19/2013 ?/Sex: ?[id number],(62 years),Female ? Rec Date: ?? 06/19/2013 ?LOC: ?[facility] ? SURGICAL PATHOLOGY ? ---Pathologic Diagnosis--- ? Calculi, left renal (see Comment). ? CR-0 ? 07/02/13 ? BJM ? 07/04/13 Verified by: ? Lab Review, Limited Histology ? (Electronic Signature) ? The attending pathologist whose signature appears on this report has ? reviewed all diagnostic slides and has edited the gross and/or ? microscopic portion of the report in rendering the final pathologic ? diagnosis. ? ---Comment--- ? The Report of Stone Analysis, order # [id number], has been received from ? the [facility] [employer], [address], [place], [place] ??[address]. ? For the full text of the [facility] report please refer to Non-DH Documentation ? Pathology in the electronic medical record (eDH). ? ---Gross Description--- ? Specimen submitted for chemical analysis. ? ---Clinical Information--- ? Specimen Submitted: ? A - Left renal stones ? Clinical History: ? Left renal stones CERNER MILLENNIUM 06/19/2013 4:20 PM EST Inessa Alonzo Jr., MD PATHOLOGY/CYTOLOGY ORDERABLES Performing Organization Address [facility] de Phone Number CERESTELA GARCIAENNIUM * Specimen to Pathology (surgical or derm) (06/19/2013 4:20 PM EST) AP Specimen 06/19/2013 4:20 PM EST 06/19/2013 4:20 PM EST Narrative CERNER MILLENNIUM - 06/19/2013 4:20 PM EST Specimen requisition ordered. ??Separate Pathology report to follow Inessa Alonzo Jr., MD PATHOLOGY/CYTOLOGY ORDERABLES Performing Organization Address [facility] de Phone Number CERESTELA GARCIAENNIUM * Antibody screen (06/19/2013 11:02 AM EST) Ab Screen Interp Negative TERESA MAYES Expires at [id number] on: [id number] TERESA MAYES Blood specimen (specimen) 06/19/2013 11:02 AM EST 06/19/2013 11:03 AM EST Narrative Resulting Agency Comment Spec In Lab Inessa Alonzo Jr., MD BLOOD BANK LAB ORD ERABLES Performing Organization Address [facility] Co de Phone Number TERESA MAYES * ABO/Rh Typing (06/19/2013 11:02 AM EST) ABORH Type A Pos TERESA MAYES Blood specimen (specimen) 06/19/2013 11:02 AM EST 06/19/2013 11:03 AM EST Narrative Resulting Agency Comment Spec In Lab Inessa Alonzo Jr., MD BLOOD BANK LAB ORD ERABLES Performing Organization Address [facility] de Phone Number TERESA MAYES documented in this encounter Visit Diagnoses Not on filedocumented in this encounter Administered Medications Inactive Administered Medications - up to 3 most recent administrations Medication Order MAR Action Action Date Dose Rate Site BUpivacaine (PF) (MARCAINE) 0.5 % (5 mg/mL) injection ONCE PRN, Starting on Margarita 06/19/13 at 1700, Until Margarita 06/19/13 at 1854, Intra-Operative (Intra-Procedure), Routine Given 06/19/2013 5:00 PM EST 10 mLs 19- Surgical Site cefTRIaxone (ROCEPHIN) 1g in dextrose 5% 50mL 1 g, Intravenous, EVERY 24 HOURS, First dose on Margarita 06/19/13 at 1900, Until Discontinued, Administer over 30 Minutes, Indication for (Active or Suspected): Prophylaxis Given 06/19/2013 7:48 PM EST 1 g 100 mL/hr ciprofloxacin (CIPRO) tablet 500 mg 500 mg, Oral, 2 TIMES DAILY, First dose on Margarita 06/19/13 at 2100, Until Discontinued, Routine, Indication for (Active or Suspected): Prophylaxis Given 06/20/2013 6:34 AM EST 500 mg Given 06/19/2013 8:38 PM EST 500 mg esomeprazole (NEXIUM) capsule 40 mg 40 mg, Oral, DAILY, First dose on Margarita 06/19/13 at 1945, Until Discontinued, Oral route preferred, Routine Given 06/20/2013 9:00 AM EST 40 mg Given 06/19/2013 7:48 PM EST 40 mg gentamicin 80 mg in sodium chloride 0.9% 100mL 80 mg, Intravenous, ONCE, 1 dose, On Margarita 06/19/13 at 1200, Administer over 60 Minutes, Re-dose after 8 hours., Day of Surgery (Day of Procedure), Indication for (Active or Suspected): Prophylaxis Given 06/19/2013 2:10 PM EST 80 mg New Bag 06/19/2013 12:00 PM EST 80 mg 100 mL/hr HYDROmorphone (DILAUDID) 1 mg/mL BANKRUPTCY LEGAL ASSISTANT 30 mL Intravenous, BANKRUPTCY LEGAL ASSISTANT ONLY, Starting on Margarita 06/19/13 at 1745, Until Sun06/20/13 at 1417 New Syringe/Cartridge 06/19/2013 5:45 PM EST HYDROmorphone (DILAUDID) injection 0.2-0.4 mg 0.2-0.4 mg, Intravenous, EVERY 5 MIN PRN, Starting on Margarita 06/19/13 at 1636, Until Sun06/20/13 at 1422, Pain, For moderate pain give: 0.2 mg every 5 minute prn For severe pain give: 0.4 mg every 5 minutes prn Maximum dose: 4 mg per hour Hold for respiratory rate less than 10 per minute., Routine Given 06/19/2013 6:18 PM EST 0.4 mg Given 06/19/2013 5:44 PM EST 0.4 mg Given 06/19/2013 5:30 PM EST 0.4 mg iohexol (OMNIPAQUE) injection ONCE PRN, Starting on Margarita 06/19/13 at 1521, Until Margarita 06/19/13 at 1854, Per Protocol, Intra-Operative (Intra-Procedure), Routine Given 06/19/2013 3:21 PM EST 250 mLs 19- Surgical Site lactated ringers infusion 1,000 mL 1,000 mL, at 100 mL/hr, Intravenous, CONTINUOUS, Starting on Margarita 06/19/13 at 1200, Until Sun06/20/13 at 1417 New Bag 06/19/2013 12:00 PM EST 1,000 mLs 100 mL/hr lactated ringers infusion 1,000 mL 1,000 mL, at 100 mL/hr, Intravenous, CONTINUOUS, Starting on Sun06/19/13 at 1700, Until Sun06/20/13 at 1417 New Bag 06/19/2013 5:00 PM EST 1,000 mLs 100 mL/hr lactated ringers infusion 1,000 mL 1,000 mL, at 100 mL/hr, Intravenous, CONTINUOUS, Starting on Sun06/19/13 at 1745, Until Sun06/20/13 at 1417 New Bag 06/20/2013 4:52 AM EST 1,000 mLs 100 mL/hr New Bag 06/19/2013 5:45 PM EST 1,000 mLs 100 mL/hr levothyroxine (SYNTHROID) tablet 150 mcg 150 mcg, Oral, EVERY MORNING, First dose on Sun06/20/13 at 0600, Until Discontinued, Routine Given 06/20/2013 5:58 AM EST 150 mcg lidocaine-epiNEPHrine 1 %-1:200,000 injection ONCE PRN, Starting on Sun06/19/13 at 1700, Until Sun06/19/13 at 1854, Intra-Operative (Intra-Procedure), Routine Given 06/19/2013 5:00 PM EST 10 mLs 19- Surgical Site OXYcodone (ROXICODONE) immediate release tablet 5-10 mg 5-10 mg, Oral, EVERY 4 HOURS PRN, Starting on Sun06/19/13 at 1715, Until Sun06/20/13 at 1956, Pain, May repeat 5 mg in 60 minutes if pain not relieved., Routine Given 06/20/2013 4:57 PM EST 10 mg Given 06/20/2013 11:30 AM EST 10 mg Given 06/20/2013 7:27 AM EST 10 mg sertraline (ZOLOFT) tablet 50 mg 50 mg, Oral, DAILY, First dose on Sun06/20/13 at 0900, Until Discontinued, Routine Given 06/20/2013 9:0 0 AM EST 50 mg sodium chloride 0.9 % flush 5 mL 5 mL, Intravenous, EVERY 12 HOURS, First dose on Sun06/19/13 at 1200, Until Discontinued, Routine Given 06/20/2013 12:00 PM EST 5 mLs Given 06/19/2013 11:58 PM EST 5 mLs Given by Other 06/19/2013 12:00 PM EST 5 mLs sodium chloride 0.9 % flush 5 mL 5 mL, Intravenous, EVERY 12 HOURS, First dose on Margarita 06/19/13 at 1945, Until Discontinued Given 06/20/2013 7:45 AM EST 5 mLs Given 06/19/2013 7:45 PM EST 5 mLs documented in this encounter Active and Recently Administered Medications Times are shown in EST. Scheduled Medication Order 06/18/2013 06/19/2013 06/20/2013 cefTRIaxone (ROCEPHIN) 1g in dextrose 5% 50mL (CANCELED) 1 g, Intravenous, EVERY 24 HOURS, First dose on Margarita 06/19/13 at 1900, Until Discontinued, Administer over 30 Minutes, Indication for (Active or Suspected): Prophylaxis 1947 (Given - Provider: Simona Pearce RN) ciprofloxacin (CIPRO) tablet 500 mg (CANCELED) 500 mg, Oral, 2 TIMES DAILY, First dose on Margarita 06/19/13 at 2100, Until Discontinued, Routine, Indication for (Active or Suspected): Prophylaxis 2037 (Given - Provider: Simona Pearce RN) 0634 (Given - Provider: Simona Pearce RN) esomeprazole (NEXIUM) capsule 40 mg (CANCELED)(Linked Group 1) 40 mg, Oral, DAILY, First dose on Margarita 06/19/13 at 1945, Until Discontinued, Oral route preferred, Routine 194 (Given - Provider: Simona Pearce RN) 0900 (Given - Provider: Solomon Lanza RN) gentamicin 80 mg in sodium chloride 0.9% 100mL (COMPLETED) 80 mg, Intravenous, ONCE, 1 dose, On Margarita 06/19/13 at 1200, Administer over 60 Minutes, Re-dose after 8 hours., Day of Surgery (Day of Procedure), Indication for (Active or Suspected): Prophylaxis 1200 (New Bag - Provider: Joe Seals RN - Comment: see anesthesia record)1410 (Given - Provider: Rolanda Chatterjee MD) levothyroxine (SYNTHROID) tablet 150 mcg (CANCELED) 150 mcg, Oral, EVERY MORNING, First dose on Sun06/20/13 at 0600, Until Discontinued, Routine 0558 (Given - Provid er: Simona Pearce RN) sertraline (ZOLOFT) tablet 50 mg (CANCELED) 50 mg, Oral, DAILY, First dose on Sun06/20/13 at 0900, Until Discontinued, Routine 0900 (Given - Provid er: Solomon Lanza RN) sodium chloride 0.9 % flush 5 mL (CANCELED) 5 mL, Intravenous, EVERY 12 HOURS, First dose on Margarita 06/19/13 at 1200, Until Discontinued, Routine 1200 (Given by Other - Provider: Joe Seals RN)2358 (Given - Provider: Simona Pearce RN) 1200 (Given - Provider: Solomon Lanza RN) sodium chloride 0.9 % flush 5 mL (CANCELED) 5 mL, Intravenous, EVERY 12 HOURS, First dose on Sun06/19/13 at 1945, Until Discontinued 1945 (Given - Provider: Simona Pearce RN) 0745 (Given - Provider: Solomon Lanza RN) Continuous Medication Order 06/18/2013 06/19/2013 06/20/2013 HYDROmorphone (DILAUDID) 1 mg/mL BANKRUPTCY LEGAL ASSISTANT 30 mL (CANCELED) Intravenous, BANKRUPTCY LEGAL ASSISTANT ONLY, Starting on Margarita 06/19/13 at 1745, Until Sun06/20/13 at 1417 1745 (New Syringe/Cartridge - Provider: Joe Seals RN) lactated ringers infusion 1,000 mL (CANCELED) 1,000 mL, at 100 mL/hr, Intravenous, CONTINUOUS, Starting on Margarita 06/19/13 at 1200, Until Sun06/20/13 at 1417 1200 (New Bag - Provider: Joe Seals RN - Comment: see pre-op documentation) lactated ringers infusion 1,000 mL (CANCELED) 1,000 mL, at 100 mL/hr, Intravenous, CONTINUOUS, Starting on Margarita 06/19/13 at 1700, Until Sun06/20/13 at 1417 1700 (New Bag - Provider: Joe Seals RN) lactated ringers infusion 1,000 mL (CANCELED) 1,000 mL, at 100 mL/hr, Intravenous, CONTINUOUS, Starting on Margarita 06/19/13 at 1745, Until Sun06/20/13 at 1417 1745 (New Bag - Provider: Joe Seals RN) 0452 (New Bag - Provider: Simona Pearce RN)1446 (Stopped - Provider: Solomon Lanza, RN) PRN Medication Order 06/18/2013 06/19/2013 06/20/2013 BUpivacaine (PF) (MARCAINE) 0.5 % (5 mg/mL) injection (CANCELED) ONCE PRN, Starting on Margarita 06/19/13 at 1700, Until Margarita 06/19/13 at 1854, Intra-Operative (Intra-Procedure), Routine 1700 (Given - Provider: Inessa Alonzo Jr., MD - Comment: Mixed 1:1 with 1%xylocaine with epinephrine 1:200,000) HYDROmorphone (DILAUDID) injection 0.2-0.4 mg (CANCELED) 0.2-0.4 mg, Intravenous, EVERY 5 MIN PRN, Starting on Margarita 06/19/13 at 1636, Until 06/20/13 at 1422, Pain, For moderate pain give: 0.2 mg every 5 minute prn For severe pain give: 0.4 mg every 5 minutes prn Maximum dose: 4 mg per hour Hold for respiratory rate less than 10 per minute., Routine 1730 (Given - Provider: Joe Seals RN)1744 (Given - Provider: Joe Seals RN)1818 (Given - Provider: Joe Seals RN) iohexol (OMNIPAQUE) injection (CANCELED) ONCE PRN, Starting on Margarita 06/19/13 at 1521, Until Margarita 06/19/13 at 1854, Per Protocol, Intra-Operative (Intra-Procedure), Routine 1521 (Given - Provider: Inessa Alonzo Jr., MD - Comment: Mixed with 250mL saline.) lidocaine-epiNEPHrine 1 %-1:200,000 injection (CANCELED) ONCE PRN, Starting on Margarita 06/19/13 at 1700, Until Margarita 06/19/13 at 1854, Intra-Operative (Intra-Procedure), Routine 1700 (Given - Provider: Inessa Alonzo Jr., MD - Comment: Mixed 1:1 with 0.5% bupivacaine.) OXYcodone (ROXICODONE) immediate release tablet 5-10 mg 5-10 mg, Oral, EVERY 4 HOURS PRN, Starting on Margarita 06/19/13 at 1715, Until 06/20/13 at 1956, Pain, May repeat 5 mg in 60 minutes if pain not relieved., Routine 1833 (Given - Provider: Joe Seals RN) 0727 (Given - Provider: Solomon Lanza, RN)1130 (Given - Provider: Solomon Lanza, RN)1657 (Given - Provider: Solomon Lanza, JOSEPH) Linked Groups Order Group 1: esomeprazole (NEXIUM) capsule 40 mg (CANCELED)Jump to med 40 mg, Oral, DAILY, First dose on Magrarita 06/19/13 at 1945, Until Discontinued, Oral route preferred, Routine Or esomeprazole (NEXIUM) injection 40 mg (CANCELED) 40 mg, Intravenous, DAILY, First dose on Margarita 06/19/13 at 1945, Until Discontinued, Routine documented in this encounter Care Teams Identification Officer Relationship Specialty Start Date End Date Bell Pereira MD [address] [place] [address] PCP - General 06/21/10 06/27/16 documented as of this encounter
--- OUTSIDE RECORDS SUMMARY | 2024-03-27 20:55 | XMS_ITS | Encounter Summary ---
Author Organization [facility] [place] [address] Care Team Providers Care Lead Generation Marketing Manager Name Role Phone Bell Navarrete MD Primary Care Provider [phone] Reason for Visit * Reason Comments Nephrolithiasis Encounter Details Date Type Department Care Team (Late st Contact Info) Description 08/20/2013 10:20 AM EST [place] [id number] CLINIC, DR PAU Alonzo, Alfredito Serna Jr., MD [facility] [place] [address] Nephrolithiasis (Primary Dx) Discharge Disposition: Home Social [...] Sign Reading Time Taken Comments Blood Pressure 130/75 08/20/2013 10:27 AM EST Pulse 81 08/20/2013 10:27 AM EST Temperature - - Respiratory Rate - - Oxygen Saturation - - Inhaled Oxygen Concentration - - Weight 104.3 kg (230 lb) 08/20/2013 10:27 AM EST Height 160 cm (5' 3) 08/20/2013 10:27 AM EST Body Mass Index 40.74 08/20/2013 10:27 AM EST documented in this encounter Patient Instructions * Patient Instructions* Alfredito Alonzo Jr., MD - 08/20/2013 11:06 AM EST In general, increase your fluid intake to maintain at least 2 - 2.5 liters of urine output each dayand begin lemonade therapy as directed. The following information is a good reference guide on reducing and maintaining a low oxalate diet. Low Oxalate Diet Kidney stones are caused by a buildup of minerals in the urine. Calcium, oxalate (OX-uh-layt), and uric acid may lead to kidney stones in some people. A low- oxalate diet is for people who have calcium oxalate kidney stones. Cutting back on high-oxalate foods and salt (sodium) and drinking plenty ofwater may help prevent kidney stones from forming. Here are some important points to remember: Oxalates are found in a wide variety of foods. Foods that come from animals usually have little or no oxalate Drink plenty of fluids. Drink more than 8 cups of fluid every day. Your urine should be as clear aswater. If it isn???t, drink more fluids. To help prevent oxalate stones from forming, limit oxalates to 40 to 50 mg per day. Use the chart below as a guide. Low-oxalate foods have less than 2mg of oxalate per serving. You can eat as much of these foods as you like. Moderate-oxalate foods have 2 to 6 mg of oxalate per serving. You should eat no more than three of these foods per day. High Oxalate foods have more than 7mg of oxalate per serving. Avoid these foods. Low oxalate foods: Drinks Low oxalate Moderate Oxalate High Oxalate -apple juice -coffee (limit to 8oz/day) -any juice made from high-oxalate fruits -beer, bottled or canned -cola (limit to 12oz per day -beer, draft -cider -cranberry juice -chocolate, plain -distilled alcohol -grape juice -chocolate milk -иван cecille -orange juice -cocoa -grapefruit juice -orangeade -coffee powder (instant) -lemon juice -Ovaltine -lemonade/limeade -tea, brewed (made without peel) -snoqualmie juice -milk (skim, 2%, whole) -orange soda -pineapple -root beer -water -wine Dairy Low Oxalate Moderate Oxalate High Oxalate -milk (skim, 2%,whole) -none -chocolate milk -buttermilk -yogurt with allowed fruit -cheese For calcium restrictions, limit above (low oxalate) to one serving per day Meat Low Oxalate Moderate Oxalate High Oxalate -beef, borden, pork -beef kidney -none -eggs -liver -fish/shellfish -poultry Meat Substitutes, Beans, Nuts and Seeds Low Oxalate Moderate Oxalate High Oxalate -eggs -garbanzo beans, canned - almonds -lentils -sandoval - baked beans canned -water chestnuts -split luz maria,cooked - tomato sauce - cashews - green beans, waxed and dried - peanut butter - peanuts - pecans - sesame seeds - sunflower seeds - tofu (soybean curd) - walnuts Fats and Oils Low Oxalate Moderate Oxalate High Oxalate -all -none -none Fruit Low Oxalate Moderate Oxalate High Oxalate -apples, peeled -apples with peals -blackberries -avocado -apricots -black raspberries -bananas -black currants -blueberries -cantaloupe -cranberries, dried -red currants -casaba -grapefruit -dewberies -cherries, josiah -oranges -figs, dried -coconut -peaches -grapes, purple -cranberries, canned -pears -gooseberries -grapes, green -pineapple -kiwi -honeydew -plums -lemon peel -mangoes -prunes -snoqualmie peel -nectarines -orange peel -papaya -red raspberries -raisins -rhubarb -watermelon -strawberries -tangerines -any juice made from above fruits Breads and Starches Low Oxalate Moderate Oxalate High Oxalate -bread -barley, cooked -Fig Newtons -breakfast cereals -corn bread -fruit cake -noodles, egg or -corn tortilla -chuck crackers Macaroni -cornmeal -grits, white corn -rice, white or wild -cornstarch -kamut -flour, white or wheat -marmalade -oatmeal -soybean crackers -rice, brown -wheat germ -Unsalted saltine or soda -Crackers -Spaghetti in tomato sauce -sponge cake Vegetables Low Oxalate Moderate Oxalate High Oxalate -acorn squash -asparagus -beans -alfalfa sprouts -artichokes -beets -cabbage -brussel sprouts -celery -caulifower -broccoli -chives -peas, frozen and fresh -carrots -collards -peppers, red -corn -dandelion -radishes -cucumbers, peeled -eggplant -turnips, roots -kohlrabi -escarole -zucchini -lettuce -kale -squash -sandoval beans -leeks -mushrooms -mustard greens -onions -okra -potatoes,white -parsley -peas, canned -peppers, green -snow peas -pokeweed -tomato, fresh -rutabagas -tomoato sauce -sorrel -spinach -summer squash -sweet potatoes -Gambian chard -tomato soup -watercress -yams Condiments Low Oxalate Moderate Oxalate High Oxalate -any not listed -basil, fresh -cinnamon, ground -malt, powder -parsley, raw -pepper -pepper, more than 1tsp/day -иван -soy sauce documented in this encounter Progress Notes * Alfredito Alonzo Jr., MD - 08/20/2013 6:45 PM EST I saw and examined Page Katz with Dr. Cruz and have independently reviewed her imaging studies. I agree with history, exam, impression, and plan as noted. * Everardo Cruz - 08/20/2013 10:33 AM EST HPI: Page Katz is a 62 y.o. woman who presents for follow up after she underwent pcnl on the left side in May 2013. Postop CT confirmed she had been rendered stone free. He stent was removed a week after and she comes here today after she underwent an ulatrasound with radiology. She denies dysuria, hematuria, flan pain, fevers, chills, nausea and vomiting and says that he has been doing great thus far. She says that she is trying to increase her water intake although it is still below what we recommend but she still drinks crystal light ice tea. She does not each much salt and her oxalate intake is moderate. Stone composition is 60 % calcium oxalate monohydrate, 20% calcium oxalate dihydrate and 20% calcium phosphate Review of Systems Constitution: Negative for chills, diaphoresis, fever, weakness, malaise/fatigue and night sweats. Cardiovascular: Negative for chest pain. Respiratory: Negative for cough and shortness of breath. Musculoskeletal: Negative for back pain and muscle weakness. Genitourinary: Negative for dysuria, flank pain, frequency and hematuria. PMHx: polymyalgia rheumatica, hypothyroidism, hyperlipidemia, Crohn's disease, colon CA, HTN PSHx: total colectomy; cholecystectomy; thyroidectomy; bilateral knee replacement; left PCNL FamHx:+ family h/o urolithiasis (sister, has had SWL) SocHx: no tobacco; no EtOH Physical Exam Vitals reviewed. Constitutional: She is oriented to person, place, and time. She appears well- developed and well-nourished. HENT: Head: Normocephalic and atraumatic. Cardiovascular: Normal rate. Pulmonary/Chest: Effort normal. No respiratory distress. Abdominal: Soft. She exhibits no distension. There is no tenderness. Genitourinary: No CVA tenderness to percussion bilaterally Neurological: She is alert and oriented to person, place, and time. Psychiatric: She has a normal mood and affect. Her behavior is normal. Stone composition: 60 % calcium oxalate monohydrate, 20% calcium oxalate dihydrate and 20% calcium phosphate Imaging Studies: I independently reviewed the Retroperitoneal ultrasound from today. There is no hydronephrosis, hydroureter, or stones bilaterally Impression/Plan: 62 year old woman with primarily CaOx nephrolithiasis, now stone free and without residual hydronephrosis. We reviewed at length dietary modifications for those with CaOx stones. We specifically discussed the role of a low oxalate, low sodium diet with increased hydration, targeting 2 liters urine output daily. We discussed the estimated 50% recurrence rate, as well as the fact that this is decreased byinstituting the above noted dietary changes. We discussed followup options; she would prefer to plan annual followup, sooner if needed. We also gave her a list of oxalate high foods and recommended she reduces her oxalate and salt intake. We discussed metabolic evaluation, beginning with 24 urine collections. She declines, elected to wait for now. We will see her in one year with an ultrasound STAFF ADDENDUM: I saw and examined Page Katz with Dr. Cruz and have independently reviewed her imaging studies. I agree with history, exam, impression, and plan as noted. Alfredito Alonzo Jr, MD documented in this encounter Plan of Treatment Upcoming Encounters Date Type Department Care Team (Late st Contact Info) Description 05/15/2024 1:00 PM EDT TH Visit (TeleHealth) [place] [address] Pasha Wood MD [facility] [place] [address] documented as of this encounter Visit Diagnoses Diagnosis Nephrolithiasis- Primary Calculus of kidney documented in this encounter Care Teams Lead Generation Marketing Manager Relationship Specialty Start Date End Date Bell Navarrete MD [address] [place] [address] PCP - General 06/21/10 06/27/16 documented as of this encounter
--- OUTSIDE RECORDS SUMMARY | 2024-03-27 20:55 | XMS_ITS | Encounter Summary ---
[facility] [place] [address] Care Team Providers Care House Superintendent Name Role Phone Latha Aguirre MD Primary Care Provider Encounter Details Date Type Department Care Team (Late st Contact Info) Description 08/19/2009 Orders Only [place] [address] Gilmer Wilson MD [address] [place] [id number] Social History Tobacco Use Types Packs/Day Years Used Date Smoking Tobacco: Never Assessed [facility] Utilities Answer Date Recorded In the past [address] [facility] electric, gas, oil, or water company threatened [...] place to sleep or slept in a nursing home (including now)? No 10/22/2023 IPV Inpatient Questions [...] PM EDT TH Visit (TeleHealth) [place] [address] Pasha Wood MD [facility] [place] [address] documented as of this encounter Procedures Procedure Name Priority Date/Time Associated Diagnosis Comments NON-MEMS PROCESS ENGINEER FINAL REPORT Routine 08/19/2009 3:43 PM EST documented in this encounter Results * Non-Tool Carrier Final Report (08/19/2009 3:43 PM EST) Non-Tool Carrier Final Report [id number] ? Location: The signing pathologist has (i) examined the relevant preparation(s) for the specimen(s) and (ii) rendered or confirmed the diagnosis(es). . ? Pathology Non-Tool Carrier Cytology Final Report Clinical Information Specimen Source: ?Thyroid/FNA: left Clinical History/Impression : ?? 4 cm isoechoic nod., c/w goiter. R/o mal. Gross Description: ?? Received ??in Cytorich red, ??approximately 10 ml. total volume of ?? cloudy, pink fluid. ?? Total Preparation: Liquid Based Prep 1; Diff Quik 1; Pap Stain 1; Cell Block 1. Interpretation Specimen submitted is satisfactory. Diagnosis Mixed Microfollicular and Macrofollicular Pattern (see Comment). 08/20/09 ?Screened by: ? MBN ?Rescreened by: ?? EJG 08/23/09 ?Verified by: ? Navid LU, Lincoln Emmanuel ? Cytopathologist ? (Electronic Signature) Comment Cytologic preservation: ?? Adequate. Cellularity (follicular cells): ?? Low to moderate. Colloid: ?? Abundant. Macrophages: ?? Small number present. Architectural pattern: ?? Mixed microfollicular and macrofollicular pattern (see note). Note: ?? The vast majority of mixed microfollicular and macrofollicular pattern aspirates are considered to represent benign follicular lesions (adenomas and goiters). There is a low risk of malignancy. TERESA MAYES 08/19/2009 3:43 PM EST Gilmer Wilson MD PATHOLOGY/CYTOLOGY O RDERABLES TERESA MAYES documented in this encounter Visit Diagnoses Not on filedocumented in this encounter Additional Health Concerns Infection Onset Date Last Indicated Resolved Time Rule Out COVID-19 07/14/2023 07/14/2023 07/14/2023 6:44 PM EST Rule Out Respiratory 07/14/2023 07/14/2023 023 6:44 PM EST documented as of this encounter Care Teams House Superintendent Relationship Specialty Start Date End Date Latha Aguirre MD [address] [place] [address] PCP - General Family Medicine 06/28/23 documented as of this encounter
--- OUTSIDE RECORDS SUMMARY | 2024-03-27 20:55 | XMS_ITS | Encounter Summary ---
Author Organization [facility] [place] [address] Care Team Providers Care Financial Institution Treasurer Name Role Phone Bell Navarrete MD Primary Care Provider [phone] Encounter Details Date Type Department Care Team (Latest Contact Info) Description 11/09/2011 Multidisciplinary Ca re Committee [place] [address] Robert Livingston MD [facility] [place] [address] Social History Tobacco Use Types Packs/Day Years Used Date Smoking Tobacco: Never Sex and Gender Information Value Date Recorded Sex Assigned at Not on file Gender Identity Not on file Sexual Orientation Not on file documented as of this encounter Progress Notes * Robert Livingston MD - 11/19/2011 1:44 PM EDT Subjective: Patient ID: Page Katz is a 60 y.o. female. HPI Review of Systems Objective: Physical Exam Assessment and Plan: No problem-specific visit notes found for this encounter. Page Katz is a 60 year old woman who had a total thyroidectomy by Dr. Liz 10/13/2011 andwas found on pathology to have stage 1 papillary thyroid cancer with a Macis score of 4.15. It was the consensus of the tumor board based on information known at the time of the tumor board meeting NOT to recommend radioiodine ablation since it was felt there was no evidence that ablation would improve on the already excellent prognosis. documented in this encounter Plan of Treatment Upcoming Encounters Date Type Department Care Team (Late st Contact Info) Description 05/15/2024 1:00 PM EDT TH Visit (TeleHealth) [place] [address] Pasha Wood MD [facility] [place] [address] documented as of this encounter Visit Diagnoses Not on filedocumented in this encounter Care Teams Financial Institution Treasurer Relationship Specialty Start Date End Date Bell Navarrete MD [address] [place] [address] PCP - General 06/21/10 06/27/16 documented as of this encounter
--- OUTSIDE RECORDS SUMMARY | 2024-03-27 20:55 | XMS_ITS | Encounter Summary ---
Author Organization [facility] [place] [address] Care Team Providers Care Production Control Coordinating Clerk Name Role Phone Bell Pereira MD Primary Care Provider [phone] Encounter Details Date Type Department Care Team (Latest Contact Info) Description 06/19/2013 6:53 PM EST - 06/20/2013 5:44 PM EST Hospital Encounter [place] [id number] Inessa Alonzo Jr., MD [facility] [address] Discharge Disposition: Home Social History Tobacco Use [...] Sign Reading Time Taken Comments Blood Pressure 128/54 06/20/2013 1:00 PM EST Pulse 75 06/20/2013 1:00 PM EST Temperature 37.1 ??C (98.8 ??F) 06/20/2013 1:00 PM ES T Respiratory Rate 16 06/20/2013 1:00 PM EST Oxygen Saturation 92% 06/20/2013 8:18 AM EST Inhaled Oxygen Concentration - - [...] may be used if needed and are vvah-otd-ptjegwt medications available at most local pharmacies. Prunes [...] Center: 07/02/2013 1:30 PM Procedure Urology Urology [phone] [facility] 07/02/2013 1:45 PM Inessa Alonzo Jr., MD [facility] [phone] None Please remember that you have a ureteral stent in place. A stent is not a permanent device and mustbe removed by your urologist; failure to remove a stent may result in the need for more procedures. documented in this encounter Medications at Time of Discharge Medication Sig Dispensed Refills Start Date End Date Abqekfzyevpac-Zp-Ewkw-M inerals (ONE-A-DAY WOMENS FORMULA) 27-0.4 mg Tab [...] and concerns at this time, taken to [facility] via wheelchair with JOSEPH. SOLOMON LANZA RN * Chantel Banuelos RN [...] tube . Deny any needs and uses [facility] in [place], [place] for prescription medications. RN tpo review [...] EST Urology Cross Cover Post-Op Check: Paul Adames 62 y.o. female : 1950 MR# [id number] Date of Admission: 06/19/2013 ID: 62 year old female s/p Left percutaneous nephrolithotomy for staghorn stone. Subjective: Pain well controlled with STOCK PREPARATION SUPERVISOR. Denies fever/chills, chest pain, shortness of breath, [...] HCT 41.6 PLATELET 429* Recent Labs Basename 06/19/13 1730 NA 139 K 4.1 CL 102 [...] 5:55 PM EST 1800: break coverage done, construction engineer instruction given to patient, understands, vital signs [...] encounter Procedure Notes * Provider, Scanning - 06/20/2013 11:14 PM ESTAssociated Order(s): SCAN [...] daily. hydrochlorothiazide (HYDRODIURIL) 25 mg tablet aspirin ([employer] ASPIRIN) 81 mg chewable tablet Cvysfcdcdevho-Gn-Cccx-Minerals (ONE-A-DAY WOMENS FORMULA) 27-0.4 mg Tab sertraline [...] may be used if needed and are xwqf-ucw-qcqldke medications available at most local pharmacies. Prunes [...] Center: 07/02/2013 1:30 PM Procedure Urology Urology [phone] [facility] 07/02/2013 1:45 PM Inessa Alonzo Jr., MD [facility] [phone] None Please remember that you have a ureteral stent in place. A stent is not a permanent device and mustbe removed by your urologist; failure to remove a stent may result in the need for more procedures. Future Appointments and Orders Future Appointments: Provider: Department: Dept Phone: Center: 07/02/2013 1:30 PM Procedure Urology Urology [phone] [facility] 07/02/2013 1:45 PM Inessa Alonzo Jr., MD [facility] [phone] None Provider Contact Information To contact your provider or change your appointment, please call the Urology clinic at during business hours or during off-hours. Discharge References/Attachments Discharge References/Attachments None Discharged by PASHA FRANCISCO MD on 06/20/2013 CC: PCP: BELL PEREIRA MD Referring: No referring provider defined for this encounter. * Op Note - Erum Palomo MD - 06/20/2013 11:08 AM EST [facility] [place] Note Patient Name: Paul Adames : [id number] MR#: [id number] Case Date: 06/19/2013 Surgeon: Surgeon(s) and Role: [...] 7F x variable left ureteral stent, 24F [place] neph tube with 5F pollock re-entry catheter, [...] wire. The cystoscope was removed and a 5-Andorran Russell catheter was passed over the wire and seen to be in good position within the renal pelvis. A 20F major catheter was then placed and the balloon inflated with 10cc sterile water. Omnipaque contrast was instilled through the Russell catheter to opacify the collecting system. A [...] the 8/10 dilator was passed over the Jarbidge wire to gently dilate the tract. The dilator was removed, and an angiographic catheter was placed over the Glidewire. This was used to redirect the wire out the urethra, obtaining pbihvtw-ayk-zjqnlev access. The wire was exchanged for a Superstiff. The angiographic catheter was removed. An 8/10 dilator was placed over the superstiff wire. The inner cannula was removed, and an additional Glidewire was placed down the 8/10 dilator. This wire also passed out through the urethra. An angiographic catheter was passed over the Jarbidge and it was exch anged for an [...] to a pressure of 14 atmospheres. The 30-Andorran access sheath was easily placed over the [...] The rigid nephroscope was then reinserted. The [place] wire was backloaded into the scope and in an antegrade fashion, a 7F variable length stent was placed. The distal coil was seen fluoroscopically to be in good position inthe bladder and the proximal coil was visualized to be in good position in the renal pelvis. The rigid nephroscope was removed and a 24 mexican Suha catheter was passed through the access sheath [...] evidence for hydro or pneumothorax. A 5F Russell catheter was passed over the working wire and into the [place] nephrostomy tube. It was seen on fluoroscopy [...] Operative Note Patient Name: Paul Adames : [id number] MR#: [id number] Case Date: 06/19/2013 Surgeon: Surgeon(s) and Role: * Inessa Alonzo Jr., MD - Primary * Eurm Palomo MD - Resident-Surgeon Chief Preoperative diagnosis: [...] PM EDT TH Visit (TeleHealth) [place] [address] Pasha Wood MD [facility] [address] Pending Results Name Type Priority Associated Diagnoses [...] STONE TYPE AND SCREEN, SDP (FUTURE SURGERY, [facility] SAME DAY PROGRAM ONLY) STAT 06/19/2013 11:02 [...] intervals supplied above were not validated at [facility]. Results from pediatric patients should be interpreted [...] Inessa Alonzo Jr., MD CHEMISTRY ORDERABL ES Performing Organization Address City/[facility]/ZIP Co de Phone Number CERNER MILLENNIUM * (ABNORMAL) CBC (with Diff) [...] Absolute 0.05 0.00 - 0.05 x10(3)/mc L CERNER MILLENNIUM Blood specimen (specimen) 06/19/2013 5:30 PM EST 06/19/2013 5:57 PM EST Inessa Alonzo Jr., MD HEMATOLOGY ORDERAB LES [facility] * Basic Metabolic Panel (non-fasting) (06/19/2013 5:30 PM EST) Glucose 126 60 - 199 mg/dL CERNER MILLENNIUM Comment:Diabetes: >=200 mg/d L plus symptoms Blood Urea Nitrogen 11 8 - 18 mg/dL CERNER MILLENNIUM Creatinine 0.74 0.70 - 1.20 mg/dL CERNER MILLENNIUM Comment: Please note that the pediatric reference intervals supplied above were not validated at [facility]. Results from pediatric patients should be interpreted [...] Alonzo Jr., MD CHEMISTRY ORDERABL ES CERNER RADHAENNIUM * (ABNORMAL) CBC (with Diff) (06/19/2013 5:30 [...] Inessa Alonzo Jr., MD HEMATOLOGY ORDERAB LES CERESTELA DELGADOIUM * Surgical Pathology Report (06/19/2013 4:20 PM EST) Surgical Pathology Report ? [facility] ? Provider: ?? INESSA ALONZO JR ?? Pt. Name: ?? PAUL ADAMES ? Acc #: ?[id number] ?Pt. ? Col Date: ?? 06/19/2013 ?/Sex: [...] The Report of Stone Analysis, order # [id number], has been received from ? the [facility], [address], [place], [place] ??[address]. ? For the full text of the [facility] report please refer to Non-DH Documentation ? Pathology in the electronic medical record (eDH). ? ---Gross Description--- ? Specimen submitted for chemical analysis. ? ---Clinical Information--- ? Specimen Submitted: ? A - Left renal stones ? Clinical History: ? Left renal stones CERNER MILLENNIUM 06/19/2013 4:20 PM EST Inessa Alonzo Jr., MD PATHOLOGY/CYTOLOGY ORDERABLES Performing Organization Address [facility] de Phone Number TERESA MAYES * Specimen to Pathology (surgical or derm) (06/19/2013 4:20 PM EST) AP Specimen 06/19/2013 4:20 PM EST 06/19/2013 4:20 PM EST Narrative CERNER MILLENNIUM - 06/19/2013 4:20 PM EST Specimen requisition ordered. ??Separate Pathology report to follow Inessa Alonzo Jr., MD PATHOLOGY/CYTOLOGY ORDERABLES Performing Organization Address [facility] Co de Phone Number TERESA GARCIAENNIUM * Antibody screen (06/19/2013 11:02 AM EST) Ab Screen Interp Negative CERNER RADHAENNIUM Expires at [id number] on: [id number] TERESA MAYES Blood specimen (specimen) 06/19/2013 11:02 AM EST 06/19/2013 11:03 AM EST Narrative Resulting Agency Comment Spec In Lab Inessa Alonzo Jr., MD BLOOD BANK LAB ORD ERABLES Performing Organization Address City/[facility] Co de Phone Number TERESA MAYES * ABO/Rh Typing (06/19/2013 11:02 AM EST) ABORH Type A Pos TERESA MAYES Blood specimen (specimen) 06/19/2013 11:02 AM EST 06/19/2013 11:03 AM EST Narrative Resulting Agency Comment Spec In Lab Inessa Alonzo Jr., MD BLOOD BANK LAB ORD ERABLES Performing Organization Address [facility] Co de Phone Number TERESA MAYES documented in this encounter Visit Diagnoses Not on filedocumented in this encounter Administered Medications Inactive Administered Medications - up to 3 most recent administrations Medication Order MAR Action Action Date Dose Rate Site cefTRIaxone (ROCEPHIN) 1g in dextrose 5% 50mL 1 g, Intravenous, EVERY 24 HOURS, First dose on Sun06/19/13 at 1900, Until Discontinued, Administer over 30 Minutes, Indication for (Active or Suspected): Prophylaxis Given 06/19/2013 7:48 PM EST 1 g 100 mL/hr ciprofloxacin (CIPRO) tablet 500 mg 500 mg, Oral, 2 TIMES DAILY, First dose on Sun06/19/13 at 2100, Until Discontinued, Routine, Indication for (Active or Suspected): Prophylaxis Given 06/20/2013 6:34 AM EST 500 mg Given 06/19/2013 8:38 PM EST 500 mg esomeprazole (NEXIUM) capsule 40 mg 40 mg, Oral, DAILY, First dose on Sun06/19/13 at 1945, Until Discontinued, Oral route preferred, Routine Given 06/20/2013 9:00 AM EST 40 mg Given 06/19/2013 7:48 PM EST 40 mg gentamicin 80 mg in sodium chloride 0.9% 100mL 80 mg, Intravenous, ONCE, 1 dose, On Sun06/19/13 at 1200, Administer over 60 Minutes, Re-dose after 8 hours., Day of Surgery (Day of Procedure), Indication for (Active or Suspected): Prophylaxis Given 06/19/2013 2:10 PM EST 80 mg New Bag 06/19/2013 12:00 PM EST 80 mg 100 mL/hr HYDROmorphone (DILAUDID) 1 mg/mL STOCK PREPARATION SUPERVISOR 30 mL Intravenous, STOCK PREPARATION SUPERVISOR ONLY, Starting on Margarita 06/19/13 at 1745, [...] Given 06/19/2013 5:30 PM EST 0.4 mg lactated ringers infusion 1,000 mL 1,000 mL, at 100 mL/hr, Intravenous, CONTINUOUS, Starting on Margarita 06/19/13 at 1200, Until Sun06/20/13 at 1417 New Bag 06/19/2013 12:00 PM EST 1,000 mLs 100 mL/hr lactated ringers infusion 1,000 mL 1,000 mL, at 100 mL/hr, Intravenous, CONTINUOUS, Starting on Margarita 06/19/13 at 1700, Until Sun06/20/13 at 1417 New [...] Given 06/20/2013 5:58 AM EST 150 mcg OXYcodone (ROXICODONE) immediate release tablet 5-10 mg [...] dose on Sun06/19/13 at 1945, Until Discontinued Given 06/20/2013 7:45 AM EST 5 mLs Given 06/19/2013 7:45 PM EST 5 mLs documented in this encounter Active and Recently Administered Medications Times are shown in EST. Scheduled Medication Order 06/18/2013 06/19/2013 06/20/2013 cefTRIaxone (ROCEPHIN) 1g in dextrose 5% 50mL (CANCELED) 1 g, Intravenous, EVERY 24 HOURS, First dose on Sun06/19/13 at 1900, Until Discontinued, Administer over 30 Minutes, Indication for (Active or Suspected): Prophylaxis 1947 (Given - Provider: Simona Pearce RN) ciprofloxacin (CIPRO) tablet 500 mg (CANCELED) 500 mg, Oral, 2 TIMES DAILY, First dose on Sun06/19/13 at 2100, Until Discontinued, Routine, Indication for [...] on Sun06/19/13 at 1200, Until Discontinued, Routine 1200 (Given by Other - Provider: Joe Seals RN)2358 (Given - Provider: Simona Pearce RN) 1200 (Given - Provider: Solomon Lanza RN) sodium chloride 0.9 % flush 5 mL (CANCELED) 5 mL, Intravenous, EVERY 12 HOURS, First dose on Sun06/19/13 at 1945, Until Discontinued 1944 (Given - Provider: Simona Pearce RN) 0745 (Given - Provider: Solomon Lanza RN) Continuous Medication Order 06/18/2013 06/19/2013 06/20/2013 HYDROmorphone (DILAUDID) 1 mg/mL STOCK PREPARATION SUPERVISOR 30 mL (CANCELED) Intravenous, STOCK PREPARATION SUPERVISOR ONLY, Starting on Margarita 06/19/13 at 1745, [...] Simona Pearce RN)1446 (Stopped - Provider: Solomon Lanza RN) PRN Medication Order 06/18/2013 06/19/2013 06/20/2013 [...] (OMNIPAQUE) injection (CANCELED) ONCE PRN, Starting on Sun06/19/13 at 1521, Until Sun06/19/13 at 1854, Per Protocol, Intra-Operative (Intra-Procedure), Routine [...] Starting on Margarita 06/19/13 at 1715, Until Sun06/20/13 at 1956, Pain, May repeat 5 mg in 60 minutes if pain not relieved., Routine 1833 (Given - Provider: Joe Seals RN) 0727 (Given - Provider: Solomon Lanza RN)1130 (Given - Provider: Solomon Lanza RN)1657 (Given - Provider: Solomon Lanza RN) Linked Groups Order Group 1: esomeprazole (NEXIUM) capsule 40 mg (CANCELED)Jump to med 40 mg, Oral, DAILY, First dose on Margarita 06/19/13 at 1945, Until Discontinued, Oral route preferred, Routine Or esomeprazole (NEXIUM) injection 40 mg (CANCELED) 40 mg, Intravenous, DAILY, First dose on Margarita 06/19/13 at 1945, Until Discontinued, Routine documented in this encounter Care Teams Production Control Coordinating Clerk Relationship Specialty Start Date End Date Bell Pereira MD [address] [place] [id number] PCP - General 06/21/10 06/27/16 documented as of this encounter
--- OUTSIDE RECORDS SUMMARY | 2024-03-27 20:55 | XMS_ITS | Encounter Summary ---
Author Organization [facility] [place] [address] Care Team Providers Care Commercial Kitchen Service Technician Name Role Phone Bell Pereira MD Primary Care Provider [phone] Reason for Visit * Reason Comments Follow Up Surgery Thyroidectomy Encounter Details Date Type Department Care Team (Late st Contact Info) Description 11/22/2011 11:50 AM EDT Office [place] [address] Keshav Liz MD [facility] [place] [address] S/P thyroidectomy; Thyroid cancer Discharge Disposition: Home Social History Tobacco Use Types Packs/Day Years Used Date Smoking Tobacco: Never Sex and Gender Information Value Date Recorded Sex Assigned at Not on file Gender Identity Not on file Sexual Orientation Not on file documented as of this encounter Last Filed Vital Signs Vital Sign Reading Time Taken Comments Blood Pressure 155/80 11/22/2011 11:39 AM EDT Pulse 82 11/22/2011 11:39 AM EDT Temperature - - Respiratory Rate 16 11/22/2011 11:39 AM EDT Oxygen Saturation 98% 11/22/2011 11:39 AM EDT Inhaled Oxygen Concentration - - Weight 109.3 kg (241 lb) 11/22/2011 11:39 AM EDT Height 157.5 cm (5' 2) 11/22/2011 11:39 AM EDT Body Mass Index 44.08 11/22/2011 11:39 AM EDT documented in this encounter Progress Notes * Keshav Liz MD - 11/22/2011 11:52 AM EDT Reason for Visit: Page Katz returns. She is s/p a total thyroidectomy for a thyroid nodule,and final path revealed a PTC performed on 10/13/11. History of Present Illness: Pathology revealed: ---Pathologic Diagnosis--- Specimen: A - Right lobe of thyroid gland, hemithyroid. B - Left lobe of thyroid gland, hemithyroid. Histologic type: Papillary thyroid carcinoma Focality: Multifocal incidental foci Location(s): Left lobe - 2.5 mm (B4) Left lobe - 0.6 mm (B1) Right lobe - 0.7 mm (A2) - see comment Tumor capsule: none Vascular/lymphatic invasion: Not identified. Tumor Necrosis: Not identified. Extrathyroidal invasion: Not identified. Margin uninvolved Regional Lymph nodes: None TNM STAGING: pT1a(m) (AJCC, 7th ed., 2010) Other findings: 1. Nodular hyperplasia with dominant left lobe nodule (6.0 cm). 2. Diffuse mild chronic lymphocytic (Nancy) thyroiditis. She is feeling well at this time and has no symptoms of increased or decreased T4. She is otherwise without dysphagia or dysphonia. TSH today: pending PMH: Current outpatient prescriptions ordered prior to encounter Medication Sig Dispense Refill ??? levothyroxine (SYNTHROID) 125 mcg tablet Take 1 tablet by mouth daily. 30 tablet 12 ??? PREDNISOLONE ORAL Take 11 mg by mouth daily. ??? naproxen (NAPROSYN) 500 mg tablet Take 1 tablet by mouth 2 times daily (with meals). 90 tablet 2 ??? levothyroxine (LEVOXYL) 75 mcg tablet ??? olmesartan (BENICAR) 20 mg tablet ??? hydrochlorothiazide (HYDRODIURIL) 25 mg tablet ??? aspirin ([employer] ASPIRIN) 81 mg chewable tablet ??? Dwchdlidiyaxs-Qy-Jvgl-Minerals (ONE-A-DAY WOMENS FORMULA) 27-0.4 mg Tab ??? sertraline (ZOLOFT) 100 mg tablet 50MG = 1 Tablet(s), PO, Once daily ??? OXYcodone (ROXICODONE) 5 mg immediate release tablet Take 1 tablet by mouth every 4 hours as needed for Pain. 25 tablet 0 Allergies as of 11/22/2011 ??? (No Known Allergies) PE: Neck: Wound is healing well with some residual postop changes. There are no masses or adenopathy. Imp: Good postoperative course. Plan: Dr. Wilson will adjust her thyroid replacement and manage her cancer followup. Return to clinic PRN. Send copy to Dr. BELL PEREIRA MD and Gilmer Wilson MD. documented in this encounter Plan of Treatment Upcoming Encounters Date Type Department Care Team (Late st Contact Info) Description 05/15/2024 1:00 PM EDT TH Visit (TeleHealth) [place] [address] Pasha Wood MD [facility] [place] [address] documented as of this encounter Procedures Procedure Name Priority Date/Time Associated Diagnosis Comments THYROGLOBULIN Routine 11/22/2011 10:51 AM EDT S/P thyroidectomy documented in this encounter Results * Thyroglobulin (11/22/2011 10:51 AM EDT) Thyroglobulin <0.4 <=54.9 ng/mL [facility] Comment: Interpret with caution. Tg levels [...] does not exclude recurrent or metastatic disease. (Doug ALLISON et al. AACE Clinical Practice Guidelines for the Management of Thyroid Carcinoma. Endocrine Practice 1997;3:60-71). Tg levels after rhTSH administration may be lower than those obtained with T4 withdrawal protocol (Delicia BR et al. J Clin Endo Metab 1999;84:0757-7175). Assay performed using the DPC Immulite Tg immunometric assay. (lowest detection limit is <0.4 ng/ml). Thyroglob Ab <20.0 0.0 - 40.0 IU/mL TERESA RADHAPARRISH Comment: Assay performed is the DPC Immulite Tg-Ab immunometric assay. (Cutoff for TgAb negativity is <20 IU/ml) Blood specimen (specimen) 11/22/2011 10:51 AM EDT 11/22/2011 2:28 PM EDT Narrative Resulting Agency Comment Spec In Lab Keshav Liz MD LAB SEND OUT ORDER [facility] documented in this encounter Visit Diagnoses Diagnosis S/P thyroidectomy Other postprocedural status Thyroid cancer Malignant neoplasm of thyroid gland documented in this encounter Care Teams Commercial Kitchen Service Technician Relationship Specialty Start Date End Date Bell Pereira MD [address] [place] [address] PCP - General 06/21/10 06/27/16 documented as of this encounter
--- OUTSIDE RECORDS SUMMARY | 2024-03-27 20:55 | XMS_ITS | Encounter Summary ---
Author Organization [facility] [place] [address] Care Team Providers Care Grinder Set Up Operator External Name Role Phone Bell Navarrete MD Primary Care Provider [phone] Encounter Details Date Type Department Care Team (Latest Contact Info) Description 11/19/2011 Multidisciplinary Ca re Committee [place] [address] Robert Livingston MD [facility] [address] Social History Tobacco Use Types Packs/Day Years [...] EDT TH Visit (TeleHealth) [place] [address] Pasha Wood MD [facility] [address] documented as of this encounter Visit Diagnoses Not on filedocumented in this encounter Care Teams Grinder Set Up Operator External Relationship Specialty Start Date End Date Bell Navarrete MD [address] [place] [address] PCP - General 06/21/10 06/27/16 documented as of this encounter
--- OUTSIDE RECORDS SUMMARY | 2024-03-27 20:55 | XMS_ITS | Encounter Summary ---
Author Organization [facility] [address] Care Team Providers Care Gravel Hauler Name Role Phone Bell Navarrete MD Primary Care Provider [phone] Reason for Referral * Surgical (Routine) - Closed Specialty Diagnoses / Procedures Referred By Justen javier Referred To Contact General Surgery Diagnoses Thyroid nodule Gilmer Wilson MD [address] [place] [id number] Keshav Liz MD [facility] [place] [address] Referral ID Status Reason Start Date Expiration Date V isits Requested Visits Authorized [id number] Closed Specialty Service Requested 05/10/2011 11/06/2011 1 1 Reason for Visit * Reason Comments Thyroid Nodule Encounter Details Date Type Department Care Team (Late st Contact Info) Description 05/10/2011 10:30 AM EDT Office [place] [id number] Gilmer Wilson MD [address] [place] [phone] Thyroid nodule (Primary Dx) Discharge Disposition: Home Social History Tobacco Use Types Packs/Day Years Used Date Smoking Tobacco: Never Sex and Gender Information Value Date Recorded Sex Assigned at Not on file Gender Identity Not on file Sexual Orientation Not on file documented as of this encounter Progress Notes * Gilmer Wilson MD - 05/10/2011 11:02 AM EDT THYROID ULTRASOUND: Indication: Thyroid nodule Real time images of the thyroid gland were obtained using a SonoSite MicroMaxx and an HFL38/13-6 broadband linear array transducer. Right Lobe: The right lobe measures: 1.5x1.6cm and is of normal echotexture. Left Lobe: The left lobe measures: 3.6x4.1cm and is composed of multiple isoechoic nodules coalescing togetherwitout intervening normal parenchyma. The dominant nodule measures 3.0x3.3x4.7cm. Previously 2.4x3.2x4.0cm. Note is made of a single coarse calcification. * Gilmer Wilson MD - 05/10/2011 11:02 AM EDT Page Katz is a very pleasant 58 year old female with a history of a left thyroid nodule. Apparently this was evaluated and biopsied by an ENT physician in [place] 3-5 years ago. She has not really noted any definite change in her neck over the past few years, but neither does she express much confidence that there has not been any change. She was seen in the endocrine section 06/2008. A baseline US was obtained. Records from [place] proved unobtainable, so [place] [facility] [place] was cytologically benign She feels like her nodule has enlarged over the past 1 1/2 years. Thyroid Compressive symptoms: Globus sensation: Yes Dysphagia: Yes Dysphonia: No Dyspnea: No History of H+N XRT exposure: No Family history of thyroid cancer: No TSH 0.90 03/29/2011 Symptoms of thyroid hormone excess / deficiency: Heat intolerance: No Cold intolerance: No Diarrhea: No Constipation: No Weight loss / gain: No Anxiety: No Jitteriness: No Temors: No Palpitations: No Difficulty concentrating: No Thyroid US 07/09/2008 Right Lobe: The right lobe measures: 1.4x1.4cm and is of normal echotexture. Left Lobe: The left lobe measures: 3.7x3.7cm and is composed of multiple isoechoic nodules coalescing togetherwitout intervening normal parenchyma. The dominant nodule measures 2.9x3.0x4.0cm. Note is made of a single coarse calfication. AMBULATORY MEDICATIONS: Last charted on: 08/19/2009 DRUG DOSE/ROUTE FREQUENCY Zoloft 100 mg Tablet 100 MG = 1 Tablet(s) / Oral Once daily One-A-Day Womens Formula Tablet 1 Tablet(s) / Oral Once daily Synthorxs Aspirin 81mg Tablet, Chewable 81 MG = 1 Tablet(s) / Oral Once daily Hydrochlorothiazide 25mg Tablet 25 MG = 1 Tablet(s) / Oral Once daily Benicar 20mg Tablet 20 MG = 1 Tablet(s) / Oral Once daily Levoxyl 75mcg Tablet 75 MCG = 1 Tablet(s) / Oral Once daily ADR/ALLERGIES: No Known Allergies Last Charted on: 08/19/2009 Past Medical History Colon cancer Crohn's disease HTN Hypothyroidism Review of Systems See HPI. Physical Exam GENERAL: A+O x 3; Comfortable; Mood and affect appropriate. EYES: Sclera clear, no conjunctival injection; No stare, lid lag or proptosis. NECK: Trachea midline, no neck masses; thyroid not enlarged on the right; There is a fullness in the left thyroid bed that is easily palpable; no lymphadenopathy SKIN: Skin is neither fine and moist nor excessively dry; No rashes noted. NEURO: Cranial nerves grossly intact; DTRs have normal relaxation phase. EXT: Gait and station normal; No tremor; No thyroid acropachy or pretibial myedema. THYROID ULTRASOUND: Indication: Thyroid nodule Real time images of the thyroid gland were obtained using a SonLittle Black Bagaxx and an HFL38/13-6 broadband linear array transducer. Right Lobe: The right lobe measures: 1.5x1.6cm and is of normal echotexture. Left Lobe: The left lobe measures: 3.6x4.1cm and is composed of multiple isoechoic nodules coalescing togetherwitout intervening normal parenchyma. The dominant nodule measures 3.0x3.3x4.7cm. Previously 2.4x3.2x4.0cm. Note is made of a single coarse calcification. Assessment / Plan: Thyroid Nodule L multinodular goiter w/ 4.7cm dominant nodule with no high risk US features Cytologically benign 2010 Enlarging, no with compressive symptoms Clinically, biochemically euthyroid Plan: Refer to surgery for consideration of left hemithyroidectomy documented in this encounter Plan of Treatment Upcoming Encounters Date Type Department Care Team (Late st Contact Info) Description 05/15/2024 1:00 PM EDT TH Visit (TeleHealth) [place] [address] Pasha Wood MD [facility] [place] [address] Scheduled Referrals Name Type Priority Associated Diagnoses Orde r Schedule REFERRAL TO GENERAL SURGERY Outpatient Referral Routine Thyroid nodule Ordered: 05/10/2011 documented as of this encounter Visit Diagnoses Diagnosis Thyroid nodule- Primary Nontoxic uninodular goiter documented in this encounter Care Teams Gravel Hauler Relationship Specialty Start Date End Date Bell Navarrete MD [address] [place] [address] PCP - General 06/21/10 06/27/16 documented as of this encounter
--- OUTSIDE RECORDS SUMMARY | 2024-03-27 20:56 | XMS_ITS | Encounter Summary ---
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 No / Unsure 08/12/2020 10:31 EST documented as of this encounter Last Filed Vital Signs Vital Sign Reading Time Taken Comments Blood Pressure - - Pulse 78 08/02/2020 0958 EST Temperature 36.8 ??C (98.3 ??F) 08/02/2020 0958 EST Respiratory Rate - - Oxygen Saturation 98% 08/02/2020 0958 EST Inhaled Oxygen Concentration - - Weight - - Height - - Body Mass Index - - documented in this encounter Functional Status Functional Status Response [...] No 03/16/2020 documented as of this encounter Ordered Prescriptions Prescription Sig Dispensed Refills Start Date End Da te ststbicd-flfvvtglk-bozhbo ortisone (CORTISPORIN) 3.5-10,000-1 mg/mL-unit/mL-% otic suspension Place 2 Drops in ear(s) 4 times daily for [address] to affected area twice daily. For toes, not ears. 10 mL 08/02/2020 08/16/2020 documented in this encounter Progress Notes * Pasha Govea, DPM - 08/02/2020 0945 EST Chief Complaint Patient presents with ??? Left Great Toe - Procedure ??? Right Great Toe - Procedure HPI Page Katz is a 69 y.o. 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 Last seen 06/21/2020. The neuroma has responded fairly well to treatment initiated to includes careful shoe selection, metatarsal support with orthotic insoles, massage, and use of yoga toes. For the chronic, recurrent ingrown nails involving medial margin right great toe and both margins left great toe, patient desires partial nail matrixectomy in hope that this problem can be eradicatedpermanently. Review of Systems Constitutional: negative for, fever, fatigue, malaise. Musculoskeletal: Positive for toe pain. Dermatologic: Negative for, rash, discoloration, lesions. Neurological: Positive for improving numbness, tingling in the toes. Negative for, weakness Pulse 78 Temp 36.8 ??C (98.3 ??F) SpO2 98% Physical Exam General Exam: Alert and oriented. No acute distress. Appropriate affect. Normal cognition. Vascular Exam: Normal pedal pulses. Tepid skin temperature. Cap refill 1 to 2 seconds. Dermatologic Exam: Onychocryptosis medial right hallux and both margins of left hallux. Neurologic exam: Left foot pain-free on palpation of the intermetatarsal spaces. With pretty firm palpation in between the third and fourth metatarsal heads acute elicit some very slight tenderness subjectively. She does not feel that at all now in function. Johnny sign is negative. Assessment and Plan 1. Onychocryptosis PARTIAL NAIL MATRIXECTOMY (both margins left great toe, medial margin right great toe): The procedure and alternative treatments were discussed with the patient. The risks of the procedure, which can include but are not limited to infection, slow healing, recurrent ingrowing of the nail, need for additional procedures, etc. are understood by the patient. Verbal and written informed consent has been given Patient identity and site verification were confirmed by me. Patient was placed in a supine or semisupine position. Skin prep with alcohol. Digital block performed to both great toes with each receiving 3 mL of a 50-50 mix of 1% lidocaine plain and 0.5% Marcaine plain. Betadine prep of the forefoot. With a digtial tourniquet in place at the base of the toe, the nail plate was split longitudinally using an Tamazight anvil. The incision was made straight back to the proximal nail under the proximal nail fold. A mosquito hemostat was used to grasp the offending ingrown portion of nail and remove itin toto. The excised nail plate was approximately 5-6 mm in width. The nail fold was probed to be romero re no spicules remained. The corresponding portion of nail matrix was then curetted. The nail groove was dried. Then liquefied phenol was applied to the appropriate portion(s) of nail matrix, 3 applications of 30 seconds each. Isopropyl alcohol was used to flush the wound. The tourniquet was released. There was an hyperemic response with rapid capillary refill noted. Pressure was applied for a few minutes for hemostasis. A sterile bandage with thin film of bacitracin ointment and gauze was applied. The procedure and local anesthesia were tolerated well. The patient was given printed and oral instructions for postoperative care, which includes twice daily wound care. Each morning, cleanse thoroughly with warm soapy water. Apply antibiotic cream and aflexible cloth adhesive bandage. Each evening, soak the foot in warm water with Epsom salts for 10 minutes, dry thoroughly, and then dress a small amount of antibiotic cream and a bandage again. Tylenol or Advil should be adequate for any post-procedure pain. Patient should call if there are any problems or questions. Signs and symptoms of infection were explained. 2. 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 As she describes it: Doing so well, kind of forgot about it Patient Active Problem List Diagnosis ??? Seronegative rheumatoid arthritis (HCC-CMS) ??? Myalgia ??? Vitamin D deficiency ??? Depression ??? Essential hypertension ??? Acquired hypothyroidism ??? Thyroid cancer (HCC-CMS) ??? Obesity (BMI 30-39.9) ??? Colon cancer (HCC-CMS) No past medical history on file. No past surgical history on file. Social History Tobacco Use ??? Smoking status: Never Smoker ??? Smokeless tobacco: Never Used Substance Use Topics ??? Alcohol use: Not on file No family history on file. Current Outpatient Medications Medication Sig Dispense Refill ??? acetaminophen (TYLENOL) 500 mg tablet Take 500 mg by mouth 2 times daily as needed for Pain. ??? aspirin chewable 81 mg tablet Take by mouth. ??? cholecalciferol, Vitamin D3, 1,000 unit tablet Take 1,000 Units by mouth daily. ??? DULoxetine (CYMBALTA) 30 mg delayed release capsule TAKE 1 CAPSULE (30MG) BY MOUTH IN THE MORNING ??? DULoxetine (CYMBALTA) 60 mg capsule Take 60 mg by mouth daily. 30mg am and 60mg at hs ??? gabapentin (NEURONTIN) 100 mg capsule TAKE THREE CAPSULES BY MOUTH TWICE A DAY 180 Cap 5 ??? hydroCHLOROthiazide (HYDRODIURIL) 12.5 mg tablet Take 12.5 mg by mouth daily. ??? ibuprofen (MOTRIN) 200 mg tablet Take 600 mg by mouth every 6 hours as needed for Pain. Taking 600 mg BID ??? levothyroxine (SYNTHROID) 125 mcg tablet Take 125 mcg by mouth three times a week. ??? losartan (COZAAR) 100 mg tablet Take 100 mg by mouth daily. ??? methotrexate 2.5 mg tablet TAKE 8 TABLETS BY MOUTH ONCE A WEEK (4 TABLETS IN THE MORNING AND 4 TABLETS IN THE EVENING) 96 Tab 2 ??? vlacmttz-kace-KR-calcium-mins (ONE-A-DAY WOMENS FORMULA) 18 mg iron-400 mcg- 500 mg Ca tablet Take by mouth. ??? predniSONE (DELTASONE) 1 mg tablet TAKE TWO TABLETS BY MOUTH EVERY DAY (Patient taking differently: TAKE 3 TABLETS BY MOUTH EVERY DAY) 60 Tab 3 No current facility-administered medications for this visit. Allergies Allergen Reactions ??? Atorvastatin Other reaction(s): elevated LFTs ??? 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
--- OUTSIDE RECORDS SUMMARY | 2024-03-27 20:56 | XMS_ITS | Encounter Summary ---
Author Organization [facility] Address [address] [place] [address] Care Team Providers Care Geophysical Laboratory Supervisor Name Role Phone Unknown, Provider Primary Care Provider [phone] Reason for Visit * Reason Comments Rash facial rash x 8 [place] hs, swollen, red, pruritic skin under R eye x 3 weeks, current treatment rx'd cortizone 1% cream, and vasoline * Consult (Routine/Next Available) - Specialty Report Received Specialty Diagnoses / Procedures Referred By Justen javier Referred To Contact Dermatology Diagnoses Rash Pasha Wood MD [facility] Rheumatology [address] [place] [address] [place] [address] [facility] [address] [place] [address] Referral ID Status Reason Start Date Expiration Date Visits Requested Visits Authorized [id number] Specialty Report Received Specialty Services Required 9 1 1 Encounter Details Date Type Department Care Team (Late st Contact Info) Description 08/19/2019 13:15 EST Office [place] [facility] [place] [address] [place] [address] Maci Rand MD [address] [facility], [facility] 5 [place] [address] Periorificial dermatitis (Primary Dx); Seborrheic keratoses; Xerosis cutis; Actinic skin damage Social History Tobacco Use Types Packs/Day Years Used Date Smoking Tobacco: Never Smokeless Tobacco: Never Sex and Gender Information Value Date Recorded Sex Assigned at Not on file Gender Identity Female 10/14/2021 11:22 EDT Sexual Orientation Not on file documented as of this encounter Patient Instructions * Patient Instructions* Karli Sandoval - 08/19/2019 13:15 EST - Apply metrocream to affected area other than they eyes twice a day. - Apply protopic twice a day around the eyes. Put in the fridge so application doesn't burn. - Take doxycycline 100 mg twice a day for 6 weeks, - After 6 weeks, take 100 mg once a day for 4 weeks, - then once every other day for 2 weeks. - the stop - continue using the topicals for near future - take 1-2 week break from protopic after first 6 weeks, can then resume - moisturizer that says non-comedogenic DOXYCYCLINE Doxycycline is an antibiotic in the tetracycline family that we prescribe for many different dermatologic conditions (it has both antibacterial and anti- inflammatory effects in the skin). The usual dose is 50 or 100 mg twice daily- please be sure to check your prescription label for proper dosing. Most common adverse effects: ?? Mid-stomach burning (heartburn) ?? Nausea/vomiting ?? Photo-sensitivity (easier to get sunburn) Less common adverse effects: ?? Headache ?? Visual changes ?? Allergic reaction (rash, fever) ?? Liver damage ?? Anemia (destruction of red blood cells) ?? Yeast infection When taking Doxycycline, you should: ?? Take with food ?? Take with a full 8 oz glass of water ?? Do not lay down after taking for 20-30 min. ?? Use high-SPF sunscreen (with UVA/UVB protection) ?? Take medicine as directed by your provider Call the office with ANY questions or concerns. [phone] [facility] Dermatology For hands, try using Neutragena Haitian formula hand cream. documented in this encounter Ordered Prescriptions Prescription Sig Dispensed Refills Start Date End Da te tacrolimus (PROTOPIC) 0.03 % ointmentIndications:Ardha orificial dermatitis Apply topically to affected area 2 times daily. . Do not use for more than 6 wks at a time. Use around eyes 100 g 3 08/19/2019 08/22/2019 metroNIDAZOLE (METROCREAM) 0.75 % creamIndications:Periori ficial dermatitis Apply topically to affected area 2 times daily. Use a thin layer to affected areas after washing 45 g 11 08/19/2019 04/29/2020 doxycycline (VIBRA-TABS) 100 mg tabletIndications:Perior ificial dermatitis Take 1 Tab by mouth 2 times daily. May cause upset stomach or photosensitivity. 60 Tab 1 08/19/2019 12/02/2019 documented in this encounter Progress Notes * Karli Sandoval - 08/19/2019 1315 EST Dermatology Outpatient Visit Note Chief Complaint Patient presents with ??? Rash facial rash x 8 months, swollen, red, pruritic skin under R eye x 3 weeks, current treatment rx'd cortizone 1% cream, and vasoline Dermatologic History: No specialty comments available. Last Dermatology office visit: NPV SUBJECTIVE Ms. Katz is a 68 y.o. female who presents for new evaluation and treatment for a skin exam. She reports a pruritic rash of her central face that first began 8 months ago. Three weeks ago rash extended to her right lower eyelid, which has become very red. In the area of the rash she reports pustules. She denies using any new products on her face prior to rash spreading. To treat, she has been applying cortizone 1% cream to the rash, as well as Vaseline. Next she notes several itchy lesions on her chest and back. Last, she reports very dry skin of her hands. Patient denies a personal or family history of skin cancer. She is otherwise feeling well and has no other cutaneous concerns today. She denies any other new, changing, bleeding, tender, or non-healing skin lesions today. For full Medical, Surgical, Family, and Social histories, please see the History section of this encounter in the electronic chart which I have personally reviewed. For Review of Systems, Medications and Allergies, please see those sections of this encounter in the electronic chart which I have also reviewed. She has a current medication list which includes the following prescription(s): acetaminophen, alprazolam, [id number], cholecalciferol (vitamin d3), duloxetine, gabapentin, hydrochlorothiazide, hydroxychloroquine, levothyroxine, losartan, methotrexate, and prednisone. She has No Known Allergies. OBJECTIVE VS: There were no vitals taken for this visit. Ms. Katz is healthy, well developed, well-nourished, in no acute distress, alert and interactive female sitting on the examination table with a normal affect. She is alert and oriented to person, place and time. She has Dong type II skin. Cutaneous waist-up examination with bra on including the hair, scalp, face, eyelids, lips, neck, chest, back, abdomen, upper extremities, hands, digitsand nails was performed.The examination was normal with the addition of the following comments: There were no lesions suspicious for malignancy. - central face including perioral, perinasal, and periocular: multiple scattered pink papules on erythematous and telangiactatic base - right lower eyelid: erythematous focally scaly and edematous plaque - right thumb: xerosis with mild cracking - diffuse actinic injury, bland cortez macules, and scattered and stuck on waxy and verrucous papules in photo-distribution ASSESSMENT/PLAN 1. 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 - Take doxycycline 100 mg twice a day for 6 weeks. Ater 6 weeks, take 100 mg once a day for 4 weeks, then once every other day for 2 weeks. After 12 total weeks of treatment, stop use of doxycycline. - Apply metrocream to affected area other than around eyes twice a day. - Apply protopic twice a day around the eyes. Put in the fridge so application doesn't burn. - Continue using the topicals for near future. Discussed taking a 1-2 week break from protopic after the first 6 weeks, then resuming again. - Recommended using a non-comedogenic moisturizer. 2. Seborrheic keratoses of the trunk and extremities - The benign nature of the patient's lesions was discussed. No intervention is needed unless they become symptomatic and the patient was reassured today. 3. Xerosis cutis of the right thumb - Recommended patient try using Neutragena Haitian formula hand cream. 4. Actinic skin damage - The nature of sun-induced photo-aging and skin cancers is discussed. Sun avoidance, protective clothing, and the use of 30-SPF sunscreens is advised. Observe closely for skin damage/changes, and call if such occurs. Med Orders Placed This Visit and Additions to the Medication List Medications ??? doxycycline (VIBRA-TABS) 100 mg tablet Sig: Take 1 Tab by mouth 2 times daily. May cause upset stomach or photosensitivity. Dispense: 60 Tab Refill: 1 ??? metroNIDAZOLE (METROCREAM) 0.75 % cream Sig: Apply topically to affected area 2 times daily. Use a thin layer to affected areas after washing Dispense: 45 g Refill: 11 ??? tacrolimus (PROTOPIC) 0.03 % ointment Sig: Apply topically to affected area 2 times daily. . Do not use for more than 6 wks at a time. Use around eyes Dispense: 100 g Refill: 3 Scribe Attestation By time stamping my name below, I attest that this documentation has been prepared under the direction and in the presence of the provider listed as the provider on this encounter. Karli Sandoval 08/19/2019 11:18 Return in about 1 year (around 08/19/2020) for FBSE. Provider Attestation By time stamping my name below, I, as the provider for this encounter, personally performed the services described in this documentation. All medical record entries made by the scribe were at my direction and in my presence. I have reviewed the chart and any discharge instructions and agree that the record reflects my personal performance and is accurate and complete. Maci Rand MD 08/19/2019 16:07 * Aurora Sampson - 08/19/2019 1215 EST Review of Systems Constitutional: Negative. HENT: Negative. Eyes: Positive for pain. Respiratory: Negative. Cardiovascular: Negative. Gastrointestinal: Negative. Genitourinary: Negative. Musculoskeletal: Negative. Skin: Positive for itching and rash. Neurological: Negative. Endo/Heme/Allergies: Negative. Psychiatric/Behavioral: Negative. documented in this encounter Plan of Treatment Upcoming Encounters Date Type Department Care Team (Late st Contact Info) Description 12/17/2024 13:00 EDT Office Visit [facility] Dermatology [address] [facility], [place] [address] Maci Rand MD [address] [facility], [facility] 5 [place] [address] documented as of this encounter Visit Diagnoses Diagnosis Periorificial dermatitis- Primary Rosacea Seborrheic keratoses Xerosis cutis Other specified disease of sebaceous glands Actinic skin damage Other dermatitis due to solar radiation documented in this encounter Historical Medications * This list may reflect changes made after this encounter. Medication Sig Dispensed Refills Start Date End Date aspirin chewable 81 mg tablet Take 1 Tablet by mouth daily. 08/19/2009 [id number] m-mins 18 mg iron-400 mcg-500 mg Ca tablet Take by mouth. 08/19/2009 hydrocortisone 1 % ointment Apply topically 2 times daily. 04/29/2020 added in this encounter Care Teams Geophysical Laboratory Supervisor Relationship Specialty Start Date End Date Unknown, Provider, PCP - General 08/16/09 09/09/19 documented as of this encounter
--- OUTSIDE RECORDS SUMMARY | 2024-03-27 20:56 | XMS_ITS | Encounter Summary ---
Author Organization [facility] Address [address] [place] [address] Care Team Providers Care Manager Semiconductor Name Role Phone Nathalie Bain MD Primary Care Provider [phone] Latha Aguirre MD Primary Care Provider Unavailable Reason for Visit * Reason Comments Other Encounter Details Date Type Department Care Team (Late st Contact Info) Description 02/12/2020 Refill [facility] Rheumatology [address] [place] [address] Pasha Wood MD [address] [place] [id number] Other Social History Tobacco Use Types Packs/Day Years Used Date Smoking Tobacco: Never Smokeless Tobacco: Never Sex and Gender Information Value Date Recorded Sex Assigned at Not on file Gender Identity Female 10/14/2021 11:22 EDT Sexual Orientation Not on file documented as of this encounter Ordered Prescriptions Prescription Sig Dispensed Refills Start Date End Da te predniSONE (DELTASONE) 1 mg tablet TAKE TWO TABLETS BY MOUTH EVERY DAY 60 Tab 3 02/13/2020 documented in this encounter Plan of Treatment Upcoming Encounters Date Type Department Care Team (Late st Contact Info) Description 12/17/2024 13:00 EDT Office Visit [facility] Dermatology [address] [facility], [place] [address] Maci Rand MD 111 [facility] 5 [place] [address] documented as of this encounter Visit Diagnoses Not on filedocumented in this encounter Discontinued Medications Medication Sig Discontinue Reason Start Date End Da te predniSONE (DELTASONE) 1 mg tablet Take 2 tablets by mouth once a day 10/15/2019 02/13/2020 documented as of this encounter Additional Health Concerns Infection Onset Date Last Indicated Resolved Time COVID-19 11/02/2020 11/02/2020 12/02/2020 22:1 5 EDT documented as of this encounter Care Teams Manager Semiconductor Relationship Specialty Start Date End Date Nathalie Bain MD [address] [place] [address] PCP - General 09/10/19 12/05/22 Latha Aguirre MD [address] [place] [address] PCP - General Family Medicine - Primary Care 12/06/22 documented as of this encounter
--- OUTSIDE RECORDS SUMMARY | 2024-03-27 20:56 | XMS_ITS | Encounter Summary ---
Author Organization [facility] Address [address] [place] [address] Care Team Providers Care Stave Machine Tender Name Role Phone Nathalie Bain MD Primary Care Provider [phone] Latha Aguirre MD Primary Care Provider Unavailable Reason for Visit * Reason Comments Other Encounter Details Date Type Department Care Team (Late st Contact Info) Description 10/17/2019 Refill [facility] Rheumatology [address] [place] [address] Pasha Wood MD [address] [place] [id number] Other Social History Tobacco Use Types Packs/Day [...] Info) Description 12/17/2024 13:00 EDT Office Visit [facility] Dermatology [address] [facility], [place] [address] Maci Rand MD 111 [facility] 5 [place] [address] documented as of this encounter Visit Diagnoses Not on filedocumented in this encounter Additional Health Concerns Infection Onset Date Last Indicated Resolved Time COVID-19 11/02/2020 11/02/2020 12/02/2020 22:1 5 EDT documented as of this encounter Care Teams Stave Machine Tender Relationship Specialty Start Date End Date Nathalie Bain MD [address] [place] [address] PCP - General 09/10/19 12/05/22 Latha Aguirre MD [address] [place] [address] PCP - General Family Medicine - Primary Care 12/06/22 documented as of this encounter
--- OUTSIDE RECORDS SUMMARY | 2024-03-27 20:56 | XMS_ITS | Encounter Summary ---
Author Organization [facility] Address [address] [place] [address] Care Team Providers Care Electricity Trading Analyst Name Role Phone Nathalie Bain MD Primary Care Provider [phone] Reason for Visit * Reason Comments Pain Pain Pain Encounter Details Date Type Department Care Team (Late st Contact Info) Description 10/24/2021 16:30 EDT Office Visit [facility] [address], [address] [place], [place] [id number] [facility] [address] [facility] [address] [place] [address] Foot pain, left (Primary Dx); Foot pain, right; Heel spur, left; Heel spur, right; Plantar fasciitis, bilateral Social History Tobacco Use Types Packs/Day Years Used Date Smoking Tobacco: Never Smokeless Tobacco: Never Interpersonal Safety Answer Date Record ed Physically Hurt Never 02/29/2020 Verbally Threaten Not on file 02/29/2020 Sex and Gender Information Value Date Recorded Sex Assigned at Not on file Gender Identity Female 10/14/2021 11:22 EDT Sexual Orientation Not on file COVID-19 Exposure Response Date Recorded In the last 10 days, have yo u been in contact with someone who was confirmed or suspected to have Coronavirus/COVID-19? No / Unsure 10/24/2021 16:26 EDT documented as of this encounter Last Filed Vital Signs Vital Sign Reading Time Taken Comments Blood Pressure - - Pulse 96 10/24/2021 1627 EDT Temperature 36.3 ??C (97.3 ??F) 10/24/2021 1627 EDT Respiratory Rate - - Oxygen Saturation 96% 10/24/2021 1627 EDT Inhaled Oxygen Concentration - - Weight [...] No 03/16/2020 documented as of this encounter Patient Instructions * Patient Instructions* Shanti Zamora, DPDaphne - 10/24/2021 16:30 EDT Images from the original note were not included. [facility] Patient Instructions Arch Pain: Exercises Introduction Here are some examples of exercises for you to try. The exercises may be suggested for a condition or for rehabilitation. Start each exercise slowly. Ease off the exercises if you start to have pain. You will be told when to start these exercises and which ones will work best for you. How to do the exercises Plantar fascia stretch 1. Sit in a chair and put your affected foot on your other knee. 2. Hold the heel of your foot in one hand, and grasp your toes with the other hand. 3. Pull on your heel (toward your body), and at the same time pull your toes back with your other hand. 4. You should feel a stretch along the bottom of your foot. 5. Hold 15 to 30 seconds. 6. Repeat 2 to 4 times. Plantar fascia stretch (kneeling) You may want to place a pillow under your knees for this exercise. 1. Get on your hands and knees on the floor. Keep your heels pointing up and the balls of your feetand your toes on the floor. 2. Slowly sit back toward your ankles. 3. If this is too hard, you can try doing it one leg at a time. Stand up, and then kneel on one knee and keep the other leg forward. Place the foot of your forward leg flat on the ground and bend that knee. The heel on the leg still behind you should point up. The ball and toes of that foot should be on the floor. Sit back toward that ankle. 4. Hold 15 to 30 seconds. 5. Repeat 2 to 4 times. Switch legs if you are doing this one leg at a time. Plantar fascia self-massage 1. Sit in a chair. 2. Place your affected foot on a firm, tube-shaped object, such as a can or water bottle. 3. Roll your foot back and forth over the object to massage the bottom of your foot. 4. If you want to do ice massage, fill a water bottle about three-fourths of the way full and freeze before using. 5. Continue for 2 to 5 minutes. Bilateral calf stretch (knees straight) 1. Place a book on the floor a few inches from a wall or countertop, and put the balls of your feeton it. Your heels should be on the floor. The book needs to be thick enough so that you can feel a gentle stretch in each calf. If you are not steady on your feet, hold on to a chair, counter, or wall while you do this stretch. 2. Keep your knees straight, and lean forward until you feel a stretch in each calf. 3. To get more stretch, add another book or use a thicker book, such as a phone book, a dictionary,or an encyclopedia. 4. Hold the stretch for at least 15 to 30 seconds. 5. Repeat 2 to 4 times. Bilateral calf stretch (knees bent) 1. Place a book on the floor a few inches from a wall or countertop, and put the balls of your feeton it. Your heels should be on the floor. The book needs to be thick enough so that you can feel a gentle stretch in each calf. If you are not steady on your feet, hold on to a chair, counter, or wall while you do this stretch. 2. Bend your knees, and lean forward until you feel a stretch in each calf. 3. To get more stretch, add another book or use a thicker book, such as a phone book, a dictionary,or an encyclopedia. 4. Hold the stretch for at least 15 to 30 seconds. 5. Repeat 2 to 4 times. Reddell pick-ups 1. Put some marbles on the floor next to a cup. 2. Sit down, and use the toes of your affected foot to lift up one marble from the floor at a time.Then try to put the marble in the cup. 3. Repeat 8 to 12 times. Towel scrunches 1. Sit down, and place your affected foot on a towel on the floor. You may also do this with both feet on the towel. 2. Scrunch the towel toward you with your toes. Then use your toes to push the towel back into place. 3. Repeat 8 to 12 times. Heel raises on a step 1. Stand on the bottom step of a staircase, facing up toward the stairs. Put the balls of your feeton the step. If you are not steady on your feet, hold on to the banister or wall. 2. Keeping both knees straight, slowly lift your heels above the step so that you are standing on your toes. Then slowly lower your heels below the step and toward the floor. 3. Return to the starting position, with your feet even with the step. 4. Repeat 8 to 12 times. Follow-up care is a barry part of your treatment and safety. Be sure to make and go to all appointments, and call your doctor if you are having problems. It's also a good idea to know your test resultsand keep a list of the medicines you take. Where can you learn more? Go to https://www.Shoette.net/[employer] or log into your [email or web address] account at [email or web address] Enter H119 in the search box to learn more about Arch Pain: Exercises. Current as of: January 27, 2021?Content Version: 13.2 ?? [employer]. Care instructions adapted under license by [facility]. If you have questions about a medical condition or this instruction, always ask your healthcare professional. [employer] disclaims any warranty or liability for your use of this information. [facility] Patient Instructions Plantar Fasciitis: Exercises Introduction Here are some examples of exercises for you to try. The exercises may be suggested for a condition or for rehabilitation. Start each exercise slowly. Ease off the exercises if you start to have pain. You will be told when to start these exercises and which ones will work best for you. How to do the exercises Towel stretch 1. Sit with your legs extended and knees straight. 2. Place a towel around your foot just under the toes. 3. Hold each end of the towel in each hand, with your hands above your knees. 4. Pull back with the towel so that your foot stretches toward you. 5. Hold the position for at least 15 to 30 seconds. 6. Repeat 2 to 4 times a session, up to 5 sessions a day. Calf stretch This exercise stretches the muscles at the back of the lower leg (the calf) and the Achilles tendon. Do this exercise 3 or 4 times a day, 5 days a week. 1. Stand facing a wall with your hands on the wall at about eye level. Put the leg you want to stretch about a step behind your other leg. 2. Keeping your back heel on the floor, bend your front knee until you feel a stretch in the back leg. 3. Hold the stretch for 15 to 30 seconds. Repeat 2 to 4 times. Plantar fascia and calf stretch Stretching the plantar fascia and calf muscles can increase flexibility and decrease heel pain. Youcan do this exercise several times each day and before and after activity. 1. Stand on a step as shown above. Be sure to hold on to the banister. 2. Slowly let your heels down over the edge of the step as you relax your calf muscles. You should feel a gentle stretch across the bottom of your foot and up the back of your leg to your knee. 3. Hold the stretch about 15 to 30 seconds, and then tighten your calf muscle a little to bring your heel back up to the level of the step. Repeat 2 to 4 times. Towel curls Make this exercise more challenging by placing a weighted object, such as a soup can, on the other end of the towel. 1. While sitting, place your foot on a towel on the floor and scrunch the towel toward you with your toes. 2. Then, also using your toes, push the towel away from you. Reddell pickups 1. Put marbles on the floor next to a cup. 2. Using your toes, try to lift the marbles up from the floor and put them in the cup. Follow-up care is a barry part of your treatment and safety. Be sure to make and go to all appointments, and call your doctor if you are having problems. It's also a good idea to know your test resultsand keep a list of the medicines you take. Where can you learn more? Go to https://www.Shoette.[employer]audena or log into your [email or web address] account at [email or web address] Enter X377 in the search box to learn more about Plantar Fasciitis: Exercises. Current as of: January 27, 2021?Content Version: 13.2 ?? [employer]. Care instructions adapted under license by [facility]. If you have questions about a medical condition or this instruction, always ask your healthcare professional. [employer] disclaims any warranty or liability for your use of this information. documented in this encounter Ordered Prescriptions Prescription Sig Dispensed Refills Start Date End Da te naproxen (NAPROSYN) 500 mg tablet Take 1 Tablet by mouth 2 times daily with breakfast and dinner for 14 days. 28 Tablet 10/24/2021 11/07/2021 documented in this encounter Progress Notes * Lakeshia Hebert RN - 10/24/2021 1630 EDT Page presents today for heel pain and painful turning toes per appointment noted. Cancelled appointment with [facility] on 10/17/21. Last seen 08/12/20 KM. * Shanti Zamora DPM - 10/24/2021 1630 EDT Page Katz is being seen as a consultation from Dr. Medina ref. provider found. Chief Complaint Patient presents with ??? Right Great Toe - Pain ??? Right 2nd Toe - Pain ??? Left Calcaneus - Pain The primary encounter diagnosis was Foot pain, left. Diagnoses of Foot pain, right, Heel spur, left, Heel spur, right, and Plantar fasciitis, bilateral were also pertinent to this visit. HPI: 70 y/o female presents with chief complaint of bilateral plantar and posterior heel pain. Patient is currently seeing Dr. Pasha Wood, Durable Medical Equipment Technician, at [facility] for treatment of seronegative rhematoid arthritis. Started Humira and is titering off the Methotrexate ,Gabapentin, and Prednisone Duloxetine for depression not for aches. Pain level today is mild. Patient Active Problem List Diagnosis ??? Seronegative rheumatoid arthritis (HCC-CMS) (HCC) ??? Myalgia ??? Vitamin D deficiency ??? Depression ??? Essential hypertension ??? Acquired hypothyroidism ??? Thyroid cancer (HCC-CMS) (HCC) ??? Obesity (BMI 30-39.9) ??? Colon cancer (HCC-CMS) (HCC) No past medical history on file. No [...] ??? aspirin chewable 81 mg tablet Take 81 mg by mouth daily. ??? BIOTIN ORAL Take 10,000 mcg by mouth daily. ??? cholecalciferol, Vitamin D3, 1,000 unit tablet Take 1,000 Units by mouth daily. ??? DULoxetine (CYMBALTA) 30 mg delayed release capsule TAKE 1 CAPSULE (30MG) BY MOUTH IN THE MORNING (Patient not taking: Reported on 05/18/2021) ??? DULoxetine (CYMBALTA) 60 mg capsule Take 60 mg by mouth daily. ??? folic acid (FOLVITE) 1 mg tablet Take 800 mcg by mouth daily. ??? gabapentin (NEURONTIN) 100 mg capsule TAKE THREE CAPSULES BY MOUTH TWICE A DAY 180 Cap 5 ??? hydroCHLOROthiazide (HYDRODIURIL) 12.5 mg tablet Take 25 mg by mouth daily. ??? ibuprofen (MOTRIN) 200 mg tablet Take 600 mg by mouth every 6 hours as needed for Pain. Taking 600 mg BID ??? ketoconazole (NIZORAL) 2 % cream Apply topically to affected area daily. For skin folds daily when flaring, then 2-3 times per week maintenance (Patient not taking: Reported on 10/24/2021) 60 g 11 ??? levothyroxine (SYNTHROID) 125 mcg tablet Take 125 mcg by mouth daily. ??? losartan (COZAAR) 100 mg tablet Take 100 mg by mouth daily. (Patient not taking: Reported on 10/24/2021) ??? methotrexate 2.5 mg tablet TAKE 8 TABLETS BY MOUTH ONCE A WEEK (4 TABLETS IN THE MORNING AND 4 TABLETS IN THE EVENING) 96 Tab 2 ??? metroNIDAZOLE (METROCREAM) 0.75 % cream Apply topically to affected area 2 times daily. Use a thin layer to affected areas after washing (Patient not taking: Reported on 10/24/2021) 45 g 11 ??? maswljhp-ofte-WA-calcium-mins (ONE-A-DAY WOMENS FORMULA) 18 mg iron-400 mcg- 500 mg Ca tablet Take by mouth. (Patient not taking: Reported on 05/18/2021) ??? naproxen (NAPROSYN) 500 mg tablet Take 1 Tablet by mouth 2 times daily with breakfast and dinner for 14 days. 28 Tablet 0 ??? predniSONE (DELTASONE) 1 mg tablet TAKE TWO TABLETS BY MOUTH EVERY DAY (Patient taking differently: TAKE 2 TABLETS BY MOUTH EVERY DAY) 60 Tab 3 ??? triamcinolone (KENALOG) 0.1 % cream Apply topically to affected area 2 times daily. For rash onshoulder for 2 weeks. Do not apply to face, armpit or groin. (Patient not taking: Reported on 10/24/2021) 60 g 3 No current facility-administered medications for this visit. Allergies Allergen Reactions ??? Atorvastatin Other reaction(s): elevated LFTs ??? Fentanyl Other reaction(s): altered mental status Review of Systems Cardiovascular: Negative for leg swelling. Musculoskeletal: Positive for arthralgias and myalgias. Neurological: Negative for weakness. Physical Exam dry circular skin plaques symmetrical and bilaterally along anterior legs and dorsal aspect of feet. No erosions, no open lesions. Ortho Exam positive large palpable spurs posterior calcaneus with left > right foot, mild pain with deep palpation of the medial and central aspect of bilateral plantar fascia with palpable heel spurs. No erythema and no edema noted. Neurologic Exam protective sensation intact bilaterally Vascular Exam: DP/PT 2/4 palpable pulses bilateral, positive capillary refill time < 3 secs Bilaterally, positive pedal hair, mild varicosities, mild telangiectasias, negative venous stasis, negative rubor of dependency The prior workup of the patient includes: No prior workup Assessment/Plan: 1. Foot pain, left - XR FOOT LEFT 3 OR MORE VIEWS 2. Foot pain, right - XR FOOT RIGHT 3 OR MORE VIEWS 3. Heel spur, left 4. Heel spur, right 5. Plantar fasciitis, bilateral Discussed conservative treatment with the patient today and reviewed xrays. Recommend stretching daily and those exercises were reviewed.Attached to the communication page of the after care summary. Recommend NSAIDS for 2 weeks. Dispensed a plantar night splint to wear on her left foot at night time. Can use on the right foot if needed. Physical therapy and custom molded orthotics discussed for future treatment. Follow up in 4 weeks. Shanti Zamora DPM, [facility] [place], [place] Other Orders Placed This Visit Procedures ??? XR FOOT LEFT 3 OR MORE VIEWS ??? XR FOOT RIGHT 3 OR MORE VIEWS Plan: documented in this encounter Plan of Treatment Upcoming Encounters Date Type Department Care Team (Late st Contact Info) Description 12/17/2024 13:00 EDT Office Visit [facility] [address] [place] [address] Maci Rand MD [address] [place] [address] [address] [place] [address] documented as of this encounter Procedures Procedure Name Priority Date/Time Associated Diagnosis Comments XR FOOT RIGHT 3 OR MORE VIEWS Routine 10/24/2021 16:43 EDT Foot pain, right XR FOOT LEFT 3 OR MORE VIEWS Routine 10/24/2021 16:43 EDT Foot pain, left documented in this encounter Results * XR FOOT RIGHT 3 OR MORE VIEWS (10/24/2021 16:43 EDT) Anatomical Region Laterality Modality Lower Extremities Right Computed Radio graphy 10/24/2021 16:3 7 EDT Impressions 10/24/2021 17:06 EDT 1. No acute findings. 2. Hallux metatarsal phalangeal joint osteoarthritis. No evidence of an erosive arthritis. 3. Heel spurs associated with sequelae of inflammation or tearing at the level the Achilles tendon and plantar fascia. THIS DOCUMENT HAS BEEN ELECTRONICALLY SIGNED BY IRASEMA TAYLOR MD FOR ANY QUESTIONS OR CONCERNS REGARDING THIS REPORT PLEASE CALL [facility] AT [phone] Narrative 10/24/2021 17:06 EDT PROCEDURE INFORMATION: Exam: XR Right Foot Exam date and time: 10/24/2021 4:37 PM Age: 70 years old Clinical indication: Pain in right foot; Additional info: Right foot pain TECHNIQUE: Imaging protocol: XR Right foot. Views: 3 or more views. Total images: 3 COMPARISON: CR [id number] 03/14/2018 11:15 AM FINDINGS: Bones/joints: There is mild to moderate osteoarthritis of the 1st metatarsal phalangeal joint. There is no fracture or focal bony destruction. There are no periarticular erosions. Soft tissues: There is a large Achilles insertion heel spur with calcification involving the distal Achilles tendon. There is a small plantar fascial heel spur with calcification at the level of the plantar fascia. Procedure Note Irasema Taylor MD - 10/24/2021 PROCEDURE INFORMATION: Exam: XR Right Foot Exam date and time: 10/24/2021 4:37 PM Age: 70 years old Clinical indication: Pain in right foot; Additional info: Right foot pain TECHNIQUE: Imaging protocol: XR Right foot. Views: 3 or more views. Total images: 3 COMPARISON: CR [id number] 03/14/2018 11:15 AM FINDINGS: Bones/joints: There is mild to moderate osteoarthritis of the 1st metatarsal phalangeal joint. There is no fracture or focal bony destruction. There are no periarticular erosions. Soft tissues: There is a large Achilles insertion heel spur with calcification involving the distal Achilles tendon. There is a small plantar fascial heel spur with calcification at the level of the plantar fascia. IMPRESSION 1. No acute findings. 2. Hallux metatarsal phalangeal joint osteoarthritis. No evidence of an erosive arthritis. 3. Heel spurs associated with sequelae of inflammation or tearing at the level the Achilles tendon and plantar fascia. THIS DOCUMENT HAS BEEN ELECTRONICALLY SIGNED BY IRASEMA TAYLOR MD FOR ANY QUESTIONS OR CONCERNS REGARDING THIS REPORT PLEASE CALL [facility] [phone] Shanti Zamora DPM IMG DIAGNOSTIC IMAGI NG ORDERABLES * XR FOOT LEFT 3 OR MORE VIEWS (10/24/2021 16:43 EDT) Anatomical Region Laterality Modality Lower Extremities Left Computed Radio graphy 10/24/2021 16:3 7 EDT Impressions 10/24/2021 17:10 EDT 1. No acute findings. 2. Mild osteoarthritis of the hallux metatarsal phalangeal joint. No evidence of an erosive arthritis. 3. Heel spurs. 4. Evidence of prior inflammation and or tearing at the level of the plantar fascia and distal Achilles tendon. THIS DOCUMENT HAS BEEN ELECTRONICALLY SIGNED BY IRASEMA TAYLOR MD FOR ANY QUESTIONS OR CONCERNS REGARDING THIS REPORT PLEASE CALL [facility] AT [phone] Narrative 10/24/2021 17:10 EDT PROCEDURE INFORMATION: Exam: XR Left Foot Exam date and time: 10/24/2021 4:37 PM Age: 70 years old Clinical indication: Pain in left foot; Additional info: Left foot pain TECHNIQUE: Imaging protocol: XR Left foot. Views: 3 or more views. Total images: 3 COMPARISON: CR FOOT-LEFT-2 VIEW 03/14/2018 11:16 AM FINDINGS: Bones/joints: No fracture or focal bony destruction. There is mild hallux metatarsal phalangeal joint osteoarthritis. Soft tissues: There is a large Achilles insertion heel spur. There is extensive ossification at the level of the distal Achilles tendon and or pre Achilles soft tissue. There is a small plantar fascial heel spur with calcification at the level of the proximal plantar fascia. Procedure Note Irasema Taylor MD - 10/24/2021 PROCEDURE INFORMATION: Exam: XR Left Foot Exam date and time: 10/24/2021 4:37 PM Age: 70 years old Clinical indication: Pain in left foot; Additional info: Left foot pain TECHNIQUE: Imaging protocol: XR Left foot. Views: 3 or more views. Total images: 3 COMPARISON: CR FOOT-LEFT-2 VIEW 03/14/2018 11:16 AM FINDINGS: Bones/joints: No fracture or focal bony destruction. There is mild hallux metatarsal phalangeal joint osteoarthritis. Soft tissues: There is a large Achilles insertion heel spur. There is extensive ossification at the level of the distal Achilles tendon and or pre Achilles soft tissue. There is a small plantar fascial heel spur with calcification at the level of the proximal plantar fascia. IMPRESSION 1. No acute findings. 2. Mild osteoarthritis of the hallux metatarsal phalangeal joint. No evidence of an erosive arthritis. 3. Heel spurs. 4. Evidence of prior inflammation and or tearing at the level of the plantar fascia and distal Achilles tendon. THIS DOCUMENT HAS BEEN ELECTRONICALLY SIGNED BY IRASEMA TAYLOR MD FOR ANY QUESTIONS OR CONCERNS REGARDING THIS REPORT PLEASE CALL [facility] [phone] Shanti Zamora DPM IMG DIAGNOSTIC IMAGI NG ORDERABLES documented in this encounter Visit Diagnoses Diagnosis Foot pain, left- Primary Pain in limb Foot pain, right Pain in limb Heel spur, left Heel spur, right Plantar fasciitis, bilateral Plantar fascial fibromatosis documented in this encounter Care Teams Electricity Trading Analyst Relationship Specialty Start Date End Date Nathalie Bain MD [address] [place] [address] PCP - General 09/10/19 12/05/22 documented as of this encounter
--- OUTSIDE RECORDS SUMMARY | 2024-03-27 20:56 | XMS_ITS | Encounter Summary ---
Author Organization [facility] Address [address] [place] [address] Care Team Providers Care Automatic Teller Machine Servicer Name Role Phone Nathalie Bain MD Primary Care Provider [phone] Reason for Visit * Reason Comments Follow-up Pt reports finger pa in and stiffness,left 3rd finger gets locked on and off.Dificulty walking in morning. Encounter Details Date Type Department Care Team (Late st Contact Info) Description 04/29/2020 10:00 EDT Office Visit [facility] Rheumatology [address] [place] [address] Pasha Wood MD [facility] Rheumatology [address] [place] [address] [place] [address] Seronegative rheumatoid arthritis of multiple sites ([facility]) (Primary Dx) Social History Tobacco Use Types [...] have Coronavirus / COVID-19? No / Unsure 04/29/2020 9:58 EDT documented as of this encounter Last Filed Vital Signs Vital Sign Reading Time Taken Comments Blood Pressure 144/82 04/29/2020 1000 EDT Pulse - - Temperature 36 ??C (96.8 ??F) 04/29/2020 1000 EDT Respiratory Rate - - Oxygen Saturation - - Inhaled Oxygen Concentration - - Weight 100.2 kg (221 lb) 04/29/2020 1000 EDT Height - - Body Mass Index 39.78 12/02/2019 0840 EDT documented in this encounter Functional Status Functional [...] * Patient Instructions* Pasha Wood MD - 04/29/2020 10:00 EDT Continue methotrexate 20 mg weekly Folic acid 1 mg daily Increase prednisone to 5 mg daily documented in this encounter Ordered Prescriptions Prescription Sig Dispensed Refills Start Date End Da te methotrexate 2.5 mg tabletIndications:Seroneg ative rheumatoid arthritis of multiple sites (HCC-CMS) TAKE 8 TABLETS BY MOUTH ONCE A WEEK (4 TABLETS IN THE MORNING AND 4 TABLETS IN THE EVENING) 96 Tab 2 04/29/2020 12/12/2023 predniSONE (DELTASONE) 5 mg tabletIndications:Seroneg ative rheumatoid arthritis of multiple sites ([facility]) Take 1 Tab by mouth daily for 30 days. 30 Tab 2 04/29/2020 05/29/2020 documented in this encounter Progress Notes * Pasha Wood MD - 04/29/2020 1000 EDT [facility] Rheumatology Chief Complaint Patient presents with ??? Follow-up Pt reports finger pain and stiffness,left 3rd finger gets locked on and off.Dificulty walking in morning. HPI: This is a scheduled follow up appointment. ?I thought it quite possible that Page had [...] by Dr. Dharmesh Cummings who was a [employer] consultant emeritus at [employer]. He confirmed the diagnosis of polymyalgia rheumatica [...] neg ?RF neg ?CCP neg ?ESR 25 ?11-20-18 Interval events: ?Swelling and pain in the [...] events. ?No new medications. ?Methotrexate labs 10/03/2018 ?03-20-19 Interval events: ?No interval health events. ?No [...] Stiffness in the MCPs especially. 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 Has other aches and pains yet not [...] finger FTN discomfort and triggering. No locking. Current Outpatient Medications Medication ??? acetaminophen (TYLENOL) 500 mg tablet ??? ALPRAZolam (XANAX) 0.5 mg tablet ??? aspirin chewable 81 mg tablet ??? cholecalciferol, Vitamin D3, 1,000 unit tablet ??? DULoxetine (CYMBALTA) 60 mg capsule ??? gabapentin (NEURONTIN) 100 mg capsule ??? hydroCHLOROthiazide (HYDRODIURIL) 12.5 mg tablet ??? ibuprofen (MOTRIN) 200 mg tablet ??? levothyroxine (SYNTHROID) 125 mcg tablet ??? losartan (COZAAR) 100 mg tablet ??? methotrexate 2.5 mg tablet ??? doubrxvx-blza-TB-calcium-mins (ONE-A-DAY WOMENS FORMULA) 18 mg iron-400 mcg- 500 mg Ca tablet ??? predniSONE (DELTASONE) 1 mg tablet No current facility-administered medications for this visit. Allergies include: Atorvastatin and Fentanyl Review of Systems: Had PA for Remicade yet did not start this. She is concerned about the risk of developing malignancy. She has also been concerned given the pandemic She previously used Remicade for inflammatory bowel disease. Has more free time now that her grandchildren have gone back to school. They are attending local school in [place]. HEENT: No mouth sores. No facial rash. Hydroxychloroquine stopped due to hair thinning Hands are the biggest issue for her. Stiff in the morning especially in the MCPs. Pain is actually better in the morning. A little better on 3 mg prednisone. No chest pain or palpitations. No rashes. No respiratory sxs. No GI sxs. Physical Examination: BP (!) 144/82 Temp 36 ??C (96.8 ??F) Wt 100.2 kg (221 lb) BMI 39.78 kg/m?General appearance and movement: alert, nontoxic; deconditioned appearing ?HEENT: anicteric sclerae, conjunctivae clear; wearing facial [...] rate was identified as 22 in 10/10/2012. Labs: Abstract on 01/08/2020 Component Date Value ??? 25OH Vitamin D Tot, Exte* 01/01/2020 22.2* ??? GFR, Calculated, External 01/01/2020 60 ??? Glucose, Serum, External 01/01/2020 95 ??? Albumin, External 01/01/2020 3.7 ??? Total Alkaline Phosphata* 01/01/2020 80 ??? ALT, External 01/01/2020 39 ??? AST, External 01/01/2020 28 ??? BUN, External 01/01/2020 13 ??? Calcium, External 01/01/2020 9.9 ??? Chloride, External 01/01/2020 103 ??? CO2, External 01/01/2020 34.3* ??? Creatinine, External 01/01/2020 0.64 ??? Potassium, External 01/01/2020 3.6 ??? Sodium, External 01/01/2020 141 ??? Total Protein, External 01/01/2020 7.2 ??? Bilirubin, Total, Cmm Technician* 01/01/2020 0.6 ??? C-Reactive Protein, Exte* 01/01/2020 0.95* ??? WBC, External 01/01/2020 7.97 ??? RBC, External 01/01/2020 4.24 ??? Hemoglobin, External 01/01/2020 13.7 ??? HCT, External 01/01/2020 42.1 ??? MCV, External 01/01/2020 99.3* ??? MCH, External 01/01/2020 32.3 ??? MCHC, External 01/01/2020 32.5 ??? PLT, External 01/01/2020 478* ??? RDW-CV, External 01/01/2020 15.4* ??? Neutrophils, External 01/01/2020 77.2 ??? Lymphocytes, External 01/01/2020 14.8 ??? Monocytes, External 01/01/2020 5.4 ??? Eosinophils, External 01/01/2020 1.9 ??? Basophils, External 01/01/2020 0.4 ??? ABS Neutrophils, External 01/01/2020 6.16 ??? ABS Lymphs, External 01/01/2020 1.18* ??? ABS Monocytes, External 01/01/2020 0.43 ??? ABS Eosinophils, External 01/01/2020 0.15 ??? ABS Basophils, External 01/01/2020 0.03 ??? Sed. Rate Westergren, Ex* 01/01/2020 20 Diagnosis / Assessment: 1. Seronegative rheumatoid arthritis ([facility]) Appears to be flaring in the hands especially. Will increase prednisone to 5 mg daily from current 3 mg. Continue same dose of MTX in divided administration weekly. Next MTX labs 07-27-2020 2. Vitamin D deficiency She will continue her vitamin D supplementation and her multivitamin. I recommended increasing vitamin D intake by 1000 international units daily. Goal 40 for vitamin D. I previouslyrecommended dietary calcium. Recommendations/Evaluation: Total [id number]-[id number] time: 25 minutes, >50% spent counseling on above issues. Pasha Wood MD documented in this encounter Plan of Treatment Upcoming Encounters Date Type Department Care Team (Late st Contact Info) Description 12/17/2024 13:00 EDT Office Visit [facility] Dermatology [address] [facility], [place], [place] [id number] Maci Rand MD [address] [place] [address] [address] [place] [address] documented as of this encounter Visit Diagnoses Diagnosis Seronegative rheumatoid arthritis of multiple sites ([facility])- Primary documented in this encounter Discontinued Medications Medication Sig Discontinue Reason Start Date End Da te pox-[id number]-o ang-bor (CALTRATE 600-D PLUS MINERALS) 600 mg calcium- 800 unit-50 mg tablet Take 600 mg by mouth daily. Therapy completed 04/29/2020 hydrocortisone 1 % ointment Apply topically 2 times daily. Therapy completed 04/29/2020 hydroxychloroquine (PLAQUENIL) 200 mg tablet Take 1 Tab by mouth daily. Therapy completed 07/14/2019 04/29/2020 metroNIDAZOLE (METROCREAM) 0.75 % creamIndications:Perior ificial dermatitis Apply topically to affected area 2 times daily. Use a thin layer to affected areas after washing Therapy completed 08/19/2019 04/29/2020 pimecrolimus (ELIDEL) 1 % creamIndications:Perior ificial dermatitis Apply topically to affected area 2 times daily. Do not use for more than 6 wks at a time. Use on skin around eyes. Therapy completed 08/21/2019 04/29/2020 methotrexate 2.5 mg tablet TAKE 8 TABLETS BY MOUTH ONCE A WEEK (4 TABLETS IN THE MORNING AND 4 TABLETS IN THE EVENING) Reorder 02/02/2020 04/29/2020 documented as of this encounter Historical Medications * This list may reflect changes made after this encounter. Medication Sig Dispensed Refills Start Date End Date ibuprofen (MOTRIN) 200 mg tablet Take 600 mg by mouth every 6 hours as needed for Pain. Taking 600 mg BID 12/12/2023 added in this encounter Care Teams Automatic Teller Machine Servicer Relationship Specialty Start Date End Date Nathalie Bain MD [address] [place], [place] [address] [address] [place] [id number] PCP - General 09/10/19 12/05/22 documented as of this encounter
--- OUTSIDE RECORDS SUMMARY | 2024-03-27 20:56 | XMS_ITS | Encounter Summary ---
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 (Primary Dx); Onychocryptosis Social History Tobacco Use Types Packs/Day Years [...] Taken Comments Blood Pressure - - Pulse 79 06/21/2020 0943 EST Temperature 36.6 ??C (97.8 ??F) 06/21/2020 0943 EST Respiratory Rate - - Oxygen Saturation 95% 06/21/2020 0943 EST Inhaled Oxygen Concentration - - Weight 99.3 kg (219 lb) 06/21/2020 0943 EST Height 158.8 cm (5' 2.5) 06/21/2020 0943 EST Body Mass Index 39.42 06/21/2020 0943 EST documented in this encounter Functional Status Functional [...] encounter Patient Instructions * Patient Instructions* Pasha Govea DPM - 06/21/2020 9:45 EST Massage your foot for 10 minutes twice per day. Use Yoga Toes between your toes to stretch the ligaments: Once per day, starting with just 5 minutes and gradually build up to using it for up to 30 minutes per day. For 2 weeks, take 3 Advil 3 times per day. Wear shoes with support and for now stick with the ones that have the added metatarsal support. documented in this encounter Progress Notes * Pasha Govea DPM - 06/21/2020 0945 EST Chief Complaint Patient presents with ??? Left Foot - Pain ??? Right Foot - Pain SHANNON Abel is an est 69 year old patient who is here for bilateral foot pain for the past 5 weeks. Pain per patient call on the 10th pain is to the mid/top of the foot,worse with walking. Foot pain began about a month ago. Was both feet, but left began first, hurt more, and persists. The right was mildl and has resolved. Pain is in the ball of the foot and feels like maybe starts in the 3rd toe. Sharp and some radiation. No burning, tingling or paresthesias. Was swollen initially, but that resolved. Can bother even laying in bed at night for a bit. Primarily a WB pain. Feels it right away when steps down, and it worsens proportionally with time the longer she is on it. Supportive shoes help some. Worse in slippers and stocking feet. Takes advil for arthritis, 3 in morning and 3 at night. That burris seem to help the foot, too. Review of Systems Constitutional: negative for, fever, fatigue, malaise. Eyes: Negative for, change in vision. Ears,nose,mouth,throat: Negative for, URI symptoms, sinus congestion. Cardiovascular: negative for, chest pain, dyspnea on exertion, palpitations. Respiratory: negative for cough, wheezing. Gastrointestinal: negative for, abdominal pain, nausea, diarrhea, blood in stool, heartburn. Genitourinary: female negative for, incontinence, dysuria. Musculoskeletal: Positive for foot pain, multiple joint pain. Skin/breast: Positive for ingrown toenails.. Neurological: Negative for, Numbness, Tingling, Weakness. Psychiatric: Positive for depression, stable. Hematologic/lymphatic: Negative for, bleeding, bruising. Pulse 79 Temp 36.6 ??C (97.8 ??F) (Temporal) Ht 158.8 cm (62.5) Wt 99.3 kg (219 lb) SpO2 95% BMI 39.42 kg/m?? Body mass index is 39.42 kg/m??. Physical Exam General Exam: Alert and oriented. No acute distress. Appropriate affect. Normal cognition. Moderately overweight. Vascular Exam: Dorsalis pedis pulses normal. Posterior tibial pulses normal. Skin color, texture, turgor, and elasticity normal. No edema. Capillary refill under 2 seconds. Tepid skin temperature. Digital hair present Dermatologic Exam: Onychocryptosis medial right hallux and both margins of left hallux. Orthopedic Exam: Pain on palpation in left 3rd intermetatarsal space, dorsal plantar and distal to proximal palpation between metatarsal heads. No pain directly on the met heads or MTP joints. No pain with active or passive motion at the MTP or IP joints. Positive Johnny's sign specific to the intermetatarsal space. Neurologic Exam: Cutaneous sensation and motor function are grossly intact and symmetrical. No sensory or motor deficit. Assessment and Plan 1. 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 Recommend startconservatively and get more aggressive as needed. Avoid squatting and other activities with significant pressure on the ball of the foot. Made shoe recommendations: supportive, roomy toe box, cushioned but not overly flexible sole. Orthotic insoles with metatarsal padding/support recommended. Massage forefoot and toes for about 15 minutes each day. Try Yoga Toes, working up to 30 minutes per day.Discontinue if adverse effects. Call with any problems or questions. Consider physical therapy, custom orthotics, and/or steroid injection. 2. Onychocryptosis Explained ingrown toenails. Discussed treatment options. Nails trimmed today. Due to recurrent issues with this, we will proceed with matrixectomies at follow up visit. Instructions to patient: Massage your foot for 10 minutes twice per day. Use Yoga Toes between your toes to stretch the ligaments: Once per day, starting with just 5 minutes and gradually build up to using it for up to 30 minutes per day. For 2 weeks, take 3 Advil 3 times per day. Wear shoes with support and for now stick with the ones that have the added metatarsal support. Patient Active Problem List Diagnosis ??? Seronegative rheumatoid arthritis (HCC-CMS) ??? Myalgia ??? Vitamin D deficiency ??? Depression ??? Essential hypertension ??? Acquired hypothyroidism ??? Thyroid cancer ([facility]) ??? Obesity (BMI 30-39.9) ??? Colon cancer ([facility]) No past medical history on file. No [...] IN THE EVENING) 96 Tab 2 ??? krcggheo-geed-JU-calcium-mins (ONE-A-DAY WOMENS FORMULA) 18 mg iron-400 mcg- [...] reaction(s): altered mental status Pasha Govea DPM [facility] [place], [place] documented in this encounter Plan of Treatment Upcoming Encounters Date Type Department Care Team (Late st Contact Info) Description 12/17/2024 13:00 EDT Office Visit [facility] Dermatology [address] [facility], [place] [address] Maci Rand MD [address] [place] [address], [facility] [address] [place] [address] documented as of this encounter Visit Diagnoses Diagnosis 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 Taking 1/2 tab to 1 tab at bedtime as needed 06/21/2020 documented as of this encounter Historical Medications * This list may reflect changes made after this encounter. Medication Sig Dispensed Refills Start Date End Date DULoxetine (CYMBALTA) 30 mg delayed release capsule TAKE 1 CAPSULE (30MG) BY MOUTH IN THE MORNING 06/18/2020 added in this encounter Care Teams Platinum And Palladium Kettle Tender Relationship Specialty Start Date End Date Nathalie Bain MD [address] [place], [place] [address] [address] [place] [phone] PCP - General 09/10/19 12/05/22 documented as of this encounter
--- OUTSIDE RECORDS SUMMARY | 2024-03-27 20:56 | XMS_ITS | Encounter Summary ---
Author Organization [facility] Address [address] [place] [address] Care Team Providers Care Biology Teacher Name Role Phone Nathalie Bain MD Primary Care Provider [phone] Latha Aguirre MD Primary Care Provider Unavailable Reason for Visit * Reason Comments Other Encounter Details Date Type Department Care Team ([facility] Contact Info) Description 08/18/2021 Refill [facility] [place] [address] [place] [address] Pasha Wood MD [facility] Rheumatology [address] [place] [address] [place] [address] Other Social History Tobacco Use Types Packs/Day [...] Department Care Team (Late Contact Info) Description 12/17/2024 13:00 EDT Office Visit [facility] Dermatology [address] [facility], [place] [address] Maci Rand MD [address] [facility], [facility] [address] [place] [phone] documented as of this encounter Visit Diagnoses Not on filedocumented in this encounter Care Teams Biology Teacher Relationship Specialty Start Date End Date Nathalie Bain MD [address] [place] [phone] PCP - General 09/10/19 12/05/22 Latha Aguirre MD [address] [place] [address] PCP - General Family Medicine - Primary Care 12/06/22 documented as of this encounter
--- OUTSIDE RECORDS SUMMARY | 2024-03-27 20:56 | XMS_ITS | Encounter Summary ---
Author Organization [facility] Address [address] [place] [address] Care Team Providers Care Fabricator Industrial Furnace Name Role Phone Nathalie Bain MD Primary Care Provider [phone] Latha Aguirre MD Primary Care Provider Unavailable Encounter Details Date Type Department Care Team (Late Contact Info) Description 02/01/2022 Lab Requisition [facility] Pathology & Laboratory Medicine - [facility] [address] [place] [address] [place] Aguilera MD [address] [place] [address] [address] [place] [id number] Encounter for other general examination Social History Tobacco Use Types Packs/Day Years [...] Info) Description 12/17/2024 13:00 EDT Office Visit [facility] Dermatology [address] [facility], [place] [address] Maci Rand MD [address] [facility], [facility] [address] [place] [phone] documented as of this encounter Procedures Procedure Name Priority Date/Time Associated Diagnosis Comments PAP TEST Today 01/31/2022 11:35 EDT Encounter for other general examination HPV DNA DETECTION WITH GENOTYPING, PCR Today 01/31/2022 11:35 EDT Encounter for other general examination documented in this encounter Results * HUMAN PAPILLOMAVIRUS (HPV) DETECTION-HIGH RISK TYPES (01/31/2022 11:35 EDT) HPV other High Risk types, PCR Negative Negative 02/07/2022 19:22 EDT [facility] Comment:No E6 or E7 mRNA is detected from HPV types 16,18,31,33,35,39,45,51,52,56,58,59,66, and 68 by program checker mediated amplification. Papanicolaou smear specimen (specimen) CERVIX UTERI STRUCTURE / Unknown 01/31/2022 11:35 EDT 02/06/2022 9:55 EDT [place] Aguilera MD MICROBIOLOGY - GENER AL ORDERABLES [facility] [address] [place] [address] * PAP TEST (01/31/2022 11:35 EDT) Specimens A. Cervix and/or Endocervix , ThinPrep Imaging System with Manual Evaluation 02/07/2022 19:22 EDT [facility] Specimen Adequacy Satisfactory for Evaluation - transformation zone component present 02/07/2022 19:22 EDT [facility] General Categorization Negative for intraepithelial lesion or malignancy 02/07/2022 19:22 T [facility] Descriptive Diagnosis Reactive cellular changes associated with inflammation present (includes repair). 02/07/2022 19:22 [facility] Attestation By the signature below, the attending physician certifies that they have personally conducted a gross and/or microscopic examination of the described specimens and rendered or confirmed the above diagnosis. 02/07/2022 19:22 [facility] at 1922 Clinical History See below 02/08/20 19:22 [facility] HPV The result for the Human Papillomavirus (HPV) Detection-High Risk Types is Negative. No E6 or E7 mRNA is detected from HPV types 16,18,31,33,35,39 ,45,51,52,56,58,5 9,66, and 68 by program checker mediated amplification.Corin ting was performed on specimen [id number] and was resulted on 02/07/2022 1901 EDT by CHRIS, LAB INSTRUMENT RESULTS IN 02/07/2022 19:22 T [facility] Performing Lab [facility] 02/07/2022 19:22 [facility] Scanned Images 02/07/2022 19:22 [facility] Papanicolaou smear specimen (specimen) CERVIX UTERI STRUCTURE / Unknown 01/31/2022 11:35 EDT 02/01/2022 12:03 EDT [place] Aguilera MD PATHOLOGY ORDERABLES [facility] [address] [place] [address] documented in this encounter Visit Diagnoses Diagnosis Encounter for other general examination documented in this encounter Care Teams Fabricator Industrial Furnace Relationship Specialty Start Date End Date Nathalie Bain MD [address] [place] [address] PCP - General 09/10/19 12/05/22 Latha Aguirre MD [address] [place] [address] PCP - General Family Medicine - Primary Care 12/06/22 documented as of this encounter
--- OUTSIDE RECORDS SUMMARY | 2024-03-27 20:56 | XMS_ITS | Encounter Summary ---
Author Organization [facility] Address [address] [place] [address] Care Team Providers Care Chief Procurement Officer Name Role Phone Nathalie Bain MD Primary Care Provider [phone] Encounter Details Date Type Department Care Team (Latest Contact Info) Description 10/24/2021 Travel Social History Tobacco Use Types Packs/Day [...] 16:26 EDT documented as of this encounter Functional Status [...] Info) Description 12/17/2024 13:00 EDT Office Visit [facility] [address] [facility], [place], [place] [address] Maci Rand MD [address] [place] [address], [address] [place] [address] documented as of this encounter Visit Diagnoses Not on filedocumented in this encounter Care Teams Chief Procurement Officer Relationship Specialty Start Date End Date Nathalie Bain MD [address] [place] [address] [address] [place] [address] PCP - General 09/10/19 12/05/22 documented as of this encounter
--- OUTSIDE RECORDS SUMMARY | 2024-03-27 20:56 | XMS_ITS | Encounter Summary ---
Author Organization [facility] Address [address] [place] [address] Care Team Providers Care Physical Therapist Name Role Phone Unknown, Provider Primary Care Provider + [phone] Nathalie Bain MD Primary Care Provider [phone] Latha Aguirre MD Primary Care Provider Unavailable Reason for Visit * Reason Comments Other Encounter Details Date Type Department Care Team (Late st Contact Info) Description 08/31/2019 Refill [facility] Rheumatology [address] [place] [address] Pasha Wood MD [facility] Rheumatology [address] [place] [address] [place] [phone] Other Social History Tobacco Use Types Packs/Day Years Used Date Smoking Tobacco: Never Smokeless Tobacco: Never Sex and Gender Information Value Date Recorded Sex Assigned at Not on file Gender Identity Female 10/14/2021 11:22 EDT Sexual Orientation Not on file documented as of this encounter Ordered Prescriptions Prescription Sig Dispensed Refills Start Date End Da te gabapentin (NEURONTIN) 100 mg capsule TAKE 3 CAPSULE BY MOUTH TWO TIMES A DAY 180 Cap 5 09/01/2019 03/02/2020 documented in this encounter Miscellaneous Notes * Telephone Encounter - Gris Cazares RN - 09/01/2019 1101 EST Last visit notes reviewed and follow up noted refill sent as noted. documented in this encounter Plan of Treatment Upcoming Encounters Date Type Department Care Team (Late st Contact Info) Description 12/17/2024 13:00 EDT Office Visit [facility] Dermatology 130 [facility], [place] [address] Maci Rand MD 111 [facility], [facility] [address] [place] [phone] documented as of this encounter Visit Diagnoses Not on filedocumented in this encounter Discontinued Medications Medication Sig Discontinue Reason Start Date End Da te gabapentin (NEURONTIN) 100 mg capsule Take 300 mg by mouth 2 times daily. Taking 3 caps of 100mg 09/01/2019 documented as of this encounter Additional Health Concerns Infection Onset Date Last Indicated Resolved Time COVID-19 11/02/2020 11/02/2020 12/02/2020 22:1 5 EDT documented as of this encounter Care Teams Physical Therapist Relationship Specialty Start Date End Date Unknown, MD Champ PCP - General 08/16/09 09/09/19 Nathalie Bain MD [address] [place] [address] PCP - General 09/10/19 12/05/22 Latha Aguirre MD [address] [place] [address] PCP - General Family Medicine - Primary Care 12/06/22 documented as of this encounter
--- OUTSIDE RECORDS SUMMARY | 2024-03-27 20:56 | XMS_ITS | Encounter Summary ---
Author Organization [facility] Address [address] [place] [address] Care Team Providers Care Associate Technician Name Role Phone Nathalie Bain MD Primary Care Provider [phone] Encounter Details Date Type Department Care Team (Latest Contact Info) Description 08/02/2020 Travel Social History Tobacco Use Types Packs/Day [...] have Coronavirus / COVID-19? No / Unsure 08/02/2020 9:58 EST documented as of this encounter Functional Status [...] Info) Description 12/17/2024 13:00 EDT Office Visit [facility] 130 [facility], [place] [address] Maci Rand MD 111 [facility], [address] [place] [address] documented as of this encounter Visit Diagnoses Not on filedocumented in this encounter Care Teams Associate Technician Relationship Specialty Start Date End Date Nathalie Bain MD [address] [place] [address] [address] [place] [address] PCP - General 09/10/19 12/05/22 documented as of this encounter
--- OUTSIDE RECORDS SUMMARY | 2024-03-27 20:56 | XMS_ITS | Encounter Summary ---
Author Organization [facility] Address [address] [place] [address] Care Team Providers Care Fusion Operator Name Role Phone Nathalie Bain MD Primary Care Provider [phone] Latha Aguirre MD Primary Care Provider Unavailable Reason for Visit * Reason Comments Other Encounter Details Date Type Department Care Team (Late st Contact Info) Description 10/16/2019 Refill [facility] Dermatology [address] [place] [phone] Maci Rand MD [address] [place] [phone] Other Social History Tobacco Use Types Packs/Day [...] Info) Description 12/17/2024 13:00 EDT Office Visit [facility] Dermatology [address] [place] [phone] Maci Rand MD [address] [place] [phone] documented as of this encounter Visit Diagnoses Diagnosis Periorificial dermatitis Rosacea documented in this encounter Additional Health Concerns Infection Onset Date Last Indicated Resolved Time COVID-19 11/02/2020 11/02/2020 12/02/2020 22:1 5 EDT documented as of this encounter Care Teams Fusion Operator Relationship Specialty Start Date End Date Nathalie Bain MD [address] [place] [address] PCP - General 09/10/19 12/05/22 Latha Aguirre MD [address] [place] [address] PCP - General Family Medicine - Primary Care 12/06/22 documented as of this encounter
--- OUTSIDE RECORDS SUMMARY | 2024-03-27 20:56 | XMS_ITS | Encounter Summary ---
Author Organization [facility] Address [address] [place] [address] Care Team Providers Care Asian Studies Professor Name Role Phone Latha Aguirre MD Primary Care Provider Unavailable Encounter Details Date Type Department Care Team (Late st Contact Info) Description 07/14/2023 Lab Requisition [facility] Pathology & Laboratory Medicine - [address] [address] Outr Resulting Lab, Provider Social History Tobacco [...] Info) Description 12/17/2024 13:00 EDT Office Visit [facility] Dermatology 130 [facility], [place] [address] Maci Rand MD 111 [facility], [address] [place] [phone] documented as of this encounter Procedures Procedure Name Priority Date/Time Associated Diagnosis Comments FECAL BACTERIAL PATHOGENS BY PCR Routine 07/14/2023 5:12 EST documented in this encounter Results * FECAL BACTERIAL PATHOGENS BY PCR (07/14/2023 5:12 EST) Salmonella PCR Negative Negative 07/16/2023 23:05 EST [facility] Shigella/Enteroin vasive E. coli Negative Negative 07/16/2023 23:05 EST [facility] HN LAB CAMPYLOBACTER PCR Negative Negative 07/16/2023 23:05 EST [facility] Shiga Toxin PCR Negative Negative 23:05 EST [facility] Feces SPECIMEN FROM RECTUM / Unknown 07/14/2023 5:12 EST 07/16/2023 16:52 EST Provider Outr Resulting Lab MICROBIOLOGY - GENERAL ORDERABLES [facility] [address] [place] [address] documented in this encounter Visit Diagnoses Not on filedocumented in this encounter Care Teams Asian Studies Professor Relationship Specialty Start Date End Date Latha Aguirre MD [address] [place] [address] PCP - General Family Medicine - Primary Care 12/06/22 documented as of this encounter
--- OUTSIDE RECORDS SUMMARY | 2024-03-27 20:56 | XMS_ITS | Encounter Summary ---
Author Organization Health system Address [address] [place] [address] Care Team Providers Care Rfid Developer Name Role Phone Nathalie Bain MD Primary Care Provider [phone] Reason for Visit * Reason Comments Follow-up SNRA. Patient c/o mo derate to severe pain in her hands, arms, feet, and shoudlers today. Patient states her hands are the most painful. Encounter Details Date Type Department Care Team (Late st Contact Info) Description 09/10/2019 14:30 EST Office Visit [facility] Rheumatology [address] [place] [address] Pasha Wood MD [facility] Rheumatology [address] [place] [address] [place] [address] Seronegative rheumatoid arthritis ([facility]) (Primary Dx) Social History Tobacco Use Types Packs/Day Years Used Date Smoking Tobacco: Never Smokeless Tobacco: Never Sex and Gender Information Value Date Recorded Sex Assigned at Not on file Gender Identity Female 10/14/2021 11:22 EDT Sexual Orientation Not on file documented as of this encounter Last Filed Vital Signs Vital Sign Reading Time Taken Comments Blood Pressure 124/68 09/10/2019 1438 EST Pulse 84 09/10/2019 1438 EST Temperature - - Respiratory Rate - - Oxygen Saturation - - Inhaled Oxygen Concentration - - Weight 97.1 kg (214 lb 1.6 oz) 09/10/[address] Height 158.8 cm (5' 2.5) 09/10/2019 1438 EST Body Mass Index 38.54 09/10/2019 1438 EST documented in this encounter Patient Instructions * Patient Instructions* Pasha Wood MD - 09/10/2019 14:30 EST [facility] HCQ. Go back to prednisone 1 mg daily for 1 week. Let me know if that works. If not will increase to 2 mg daily. Call with PT referral name. documented in this encounter Progress Notes * Pasha Wood MD - 09/10/2019 1430 EST [facility] Rheumatology Chief Complaint Patient presents with ??? Follow-up SNRA. Patient c/o moderate to severe pain in her hands, arms, feet, and shoudlers today. Patient states her hands are the most painful. HPI: This is a scheduled follow up [...] by Dr. Dharmesh Cummings who was a department administrator emeritus at [facility]. He confirmed the diagnosis [...] No interval health events. No new medications. Current Outpatient Medications: acetaminophen (TYLENOL) 500 mg tablet ALPRAZolam (XANAX) 0.5 mg tablet aspirin chewable 81 mg tablet [id number]-bnt (CALTRATE 600-D PLUS MINERALS) 600 mg calcium- 800 unit-50 mg tablet cholecalciferol, Vitamin D3, 1,000 unit tablet doxycycline (VIBRA-TABS) 100 mg tablet DULoxetine (CYMBALTA) 60 mg capsule gabapentin (NEURONTIN) 100 mg capsule hydroCHLOROthiazide (HYDRODIURIL) 12.5 mg tablet hydrocortisone 1 % ointment hydroxychloroquine (PLAQUENIL) 200 mg tablet levothyroxine (SYNTHROID) 125 mcg tablet losartan (COZAAR) 100 mg tablet methotrexate 2.5 mg tablet metroNIDAZOLE (METROCREAM) 0.75 % cream zoukufsy-knvy-YE-calcium-mins (ONE-A-DAY WOMENS FORMULA) 18 mg iron-400 mcg-500 mg Ca tablet pimecrolimus (ELIDEL) 1 % cream predniSONE (DELTASONE) 1 mg tablet No current facility-administered medications for this visit. Allergies include: Atorvastatin and Fentanyl Review of Systems: Had PA for Remicade yet did not start this. She is concerned about the risk of developing malignancy. She previously used Remicade for inflammatory bowel disease. Overall energy is low. Increasing pain in the hands mostly in the palms and in the base of the thumbs and in the MCPs. Worse with reaching and pinching for example trying to take more than 1 plate out of the cupboard. Saw Dr. Vera and was presumptively diagnosed with carpal tunnel syndrome. Wearing wrist braces atnight. HEENT: No mouth sores. No facial rash. Reporting hair thinning with HCQ Swelling in the fingers. Left hand paresthesias. No chest pain or palpitations. No rashes. No cardiorespiratory sxs. No GI sxs. Physical Examination: BP 124/68 Pulse 84 Ht 158.8 cm (62.5) Wt 97.1 kg (214 lb 1.6 oz) BMI 38.54 kg/m?General appearance and movement: alert, nontoxic; deconditioned appearing ?HEENT: anicteric sclerae, conjunctivae clear; no facial rash ?Skin: no rash ?Heart: RRR ?Lungs: CTA ?Hands: no synovitis ?Wrists: no synovitis ?Elbows: normal flexion and [...] as 22 in 10/10/2012. Labs: Abstract on 08/26/2019 Component Date Value ??? C-Reactive Protein, Exte* 08/26/2019 0.65* ? ? GFR, Calculated, External 08/26/2019 >60 ??? Glucose, Serum, External 08/26/2019 89 ??? Albumin, External 08/26/2019 3.6 ??? Total Alkaline Phosphata* 08/26/2019 76 ??? ALT, External 08/26/2019 34 ??? AST, External 08/26/2019 28 ??? BUN, External 08/26/2019 13 ??? Calcium, External 08/26/2019 9.4 ??? Chloride, External 08/26/2019 107 ??? CO2, External 08/26/2019 29.4 ??? Creatinine, External 08/26/2019 0.62 ??? Potassium, External 08/26/2019 3.9 ??? Sodium, External 08/26/2019 145 ??? Total Protein, External 08/26/2019 6.9 ??? Bilirubin, Total, Telecommunications Switch Technician* 08/26/2019 0.4 ??? WBC, External 08/26/2019 6.45 ??? RBC, External 08/26/2019 4.23 ??? Hemoglobin, External 08/26/2019 13.5 ??? HCT, External 08/26/2019 42.1 ??? MCV, External 08/26/2019 99.5* ??? MCH, External 08/26/2019 31.9 ??? MCHC, External 08/26/2019 32.1 ??? PLT, External 08/26/2019 412* ??? RDW-CV, External 08/26/2019 15.4* ??? Neutrophils, External 08/26/2019 74.1 ??? Lymphocytes, External 08/26/2019 13.0 ??? Monocytes, External 08/26/2019 9.0 ??? Eosinophils, External 08/26/2019 3.1 ??? Basophils, External 08/26/2019 0.5 ??? ABS Neutrophils, External 08/26/2019 4.78 ??? ABS Lymphs, External 08/26/2019 0.84* ??? ABS Monocytes, External 08/26/2019 0.58 ??? ABS Eosinophils, External 08/26/2019 0.20 ??? ABS Basophils, External 08/26/2019 0.03 ??? Sed. Rate Westergren, Ex* 08/26/2019 20 Diagnosis / Assessment: 1. Seronegative rheumatoid arthritis ([facility]) Sxs had been well controlled on current medication regimen. No synovitis on exam. Tolerating the addition of HCQ 200 mg daily yet concerned about hair thinning. She has successfully tapered off prednisone yet has increasing pain in the hands especially. Some of the pain may indeed be from median nerve compression sxs. I have recommended stopping HCQ and going back on prednisone for 1 week. If no better will have her increase to 2 mg daily and stay there. She will be due for methotrexate monitoring labs 2019. There are no extra-articular manifestations of rheumatoid arthritis. 2. Vitamin D deficiency She will continue to take Caltrate 2 tablets daily. Recommendations/Evaluation: Total yhes-vl-efut time: 25 minutes, >50% spent counseling on above issues. Pasha Wood MD documented in this encounter Plan of Treatment Upcoming Encounters Date Type Department Care Team (Late st Contact Info) Description 12/17/2024 13:00 EDT Office Visit [facility] Dermatology [address], [place] [address] Maci Rand MD 111 [facility], [address] [place] [phone] documented as of this encounter Visit Diagnoses Diagnosis Seronegative rheumatoid arthritis ([facility] Primary Rheumatoid arthritis documented in this encounter Care Teams Rfid Developer Relationship Specialty Start Date End Date Nathalie Bain MD [address] [facility] [address] [place] [phone] PCP - General 09/10/19 12/05/22 documented as of this encounter
--- OUTSIDE RECORDS SUMMARY | 2024-03-27 20:56 | XMS_ITS | Encounter Summary ---
Author Organization [facility] Address [address] [place] [address] Care Team Providers Care Lead Oxide Mill Tender Name Role Phone Nathalie Bain MD Primary Care Provider [phone] Encounter Details Date Type Department Care Team (Latest Contact Info) Description 11/24/2021 Travel Social History Tobacco Use Types Packs/Day [...] suspected to have Coronavirus/COVID-19? No / Unsure 11/24/2021 14:50 EDT documented as of this encounter Functional [...] Info) Description 12/17/2024 13:00 EDT Office Visit [facility] [place] 130 [facility], [place], [place] [address] Maci Rand MD [address] [place] [address], [address] [place] [address] documented as of this encounter Visit Diagnoses Not on filedocumented in this encounter Care Teams Lead Oxide Mill Tender Relationship Specialty Start Date End Date Nathalie Bain MD [address] [place] [address] [address] [place] [address] PCP - General 09/10/19 12/05/22 documented as of this encounter
--- OUTSIDE RECORDS SUMMARY | 2024-03-27 20:56 | XMS_ITS | Encounter Summary ---
Author Organization [facility] Address [address] [place] [address] Care Team Providers Care Heel Former Name Role Phone Nathalie Bain MD Primary Care Provider [phone] Encounter Details Date Type Department Care Team (Latest Contact Info) Description 04/29/2020 Travel Social History Tobacco Use Types Packs/Day [...] 9:58 EDT documented as of this encounter Functional [...] Info) Description 12/17/2024 13:00 EDT Office Visit [facility] 130 [facility], [place], [place] [address] Maci Rand MD [address] [facility], [address] [place] [address] documented as of this encounter Visit Diagnoses Not on filedocumented in this encounter Care Teams Heel Former Relationship Specialty Start Date End Date Nathalie Bain MD [address] [facility] [address] [place] [address] PCP - General 09/10/19 12/05/22 documented as of this encounter
--- OUTSIDE RECORDS SUMMARY | 2024-03-27 20:56 | XMS_ITS | Encounter Summary ---
Author Organization [facility] Address [address] [place] [address] Care Team Providers Care Feed In Worker Name Role Phone Nathalie Bain MD Primary Care Provider [phone] Latha Aguirre MD Primary Care Provider Unavailable Reason for Visit * Reason Comments Other Encounter Details Date Type Department Care Team (Late st Contact Info) Description 03/01/2020 Refill [facility] Rheumatology [address] [place] [address] Pasha Wood MD [facility] Rheumatology [address] [place] [address] [place] [address] Other Social History Tobacco Use Types [...] te gabapentin (NEURONTIN) 100 mg capsule TAKE THREE CAPSULES BY MOUTH TWICE A DAY 180 Cap 5 03/02/2020 12/12/2023 documented in this encounter Plan of Treatment Upcoming Encounters Date Type Department Care Team (Late st Contact Info) Description 12/17/2024 13:00 EDT Office Visit [facility] Dermatology 130 [facility], [place] [address] Maci Rand MD [address] [facility], [address] [place] [phone] documented as of this encounter Visit Diagnoses Not on filedocumented in this encounter Discontinued Medications Medication Sig Discontinue Reason Start Date End Da te gabapentin (NEURONTIN) 100 mg capsule TAKE 3 CAPSULE BY MOUTH TWO TIMES A DAY 09/01/2019 03/02/2020 documented as of this encounter Additional Health Concerns Infection Onset Date Last Indicated Resolved Time COVID-19 11/02/2020 11/02/2020 12/02/2020 22:1 5 EDT documented as of this encounter Care Teams Feed In Worker Relationship Specialty Start Date End Date Nathalie Bain MD [address] [place] [address] PCP - General 09/10/19 12/05/22 Latha Aguirre MD [address] [place] [address] PCP - General Family Medicine - Primary Care 12/06/22 documented as of this encounter
--- OUTSIDE RECORDS SUMMARY | 2024-03-27 20:56 | XMS_ITS | Encounter Summary ---
Author Organization [facility] Address [address] [place] [address] Care Team Providers Care Inverter And Clipper Name Role Phone Nathalie Bain MD Primary Care Provider [phone] Reason for Visit * Reason Onset Date Comments Appointment Related 09/28/2020 Encounter Details Date Type Department Care Team (Late st Contact Info) Description 09/28/2020 Telephone [facility] Rheumatology [address] [place] [address] Gris Cazares RN Appointment Related Social History Tobacco Use Types Packs/Day Years [...] Telephone Encounter - Gris Cazares RN - 09/28/2020 1225 EST Noted.Thank you. Lab request faxed to Dr Wood's office at [facility]. * Telephone Encounter - Gris Cazares RN - 09/28/[address] Wood patient. No follow.No indication where pt wants to follow up. Need to new lab orders and need a follow up and a new attending or F/U with Dr Wood. Please contact this pt schedule a follow up. Thank you documented in this encounter Plan of Treatment Upcoming Encounters Date Type Department Care Team (Late st Contact Info) Description 12/17/2024 13:00 EDT Office Visit [facility] Dermatology 130 [facility], [place] [address] Maci Rand MD 111 [facility], [facility] 5 [place] [address] documented as of this encounter Visit Diagnoses Not on filedocumented in this encounter Care Teams Inverter And Clipper Relationship Specialty Start Date End Date Nathalie Bain MD [address] [facility] [address] [place] [phone] PCP - General 09/10/19 12/05/22 documented as of this encounter
--- OUTSIDE RECORDS SUMMARY | 2024-03-27 20:56 | XMS_ITS | Encounter Summary ---
Author Organization [facility] Address [address] [place] [address] Care Team Providers Care Jack Spooler Tender Name Role Phone Nathalie Bain MD Primary Care Provider [phone] Reason for Visit * Reason Onset Date Comments Medication Management 04/08/2020 Encounter Details Date Type Department Care Team (Late st Contact Info) Description 04/08/[address] [facility] Rheumatology [address] [place] [address] Pasha Wood MD [facility] Rheumatology [address] [place] [address] [place] [address] Medication Management Social History Tobacco Use Types Packs/Day Years [...] encounter Miscellaneous Notes * Telephone Encounter - Jennifer Pitts RN - 04/15/2020 1005 EDT No return call so closing. * Telephone Encounter - Jennifer Pitts RN - 04/09/2020 1355 EDT LM for Page to call my direct line. * Telephone Encounter - Katty Campos - 04/08/2020 1230 EDT LVM - has questions about medication/ no other details- tried calling her for more info -line busy documented in this encounter Plan of Treatment Upcoming Encounters Date Type Department Care Team (Late st Contact Info) Description 12/17/2024 13:[address] [facility] Dermatology 130 [facility], [place] [address] Maci Rand MD 111 [facility], [address] [place] [phone] documented as of this encounter Visit Diagnoses Not on filedocumented in this encounter Care Teams Jack Spooler Tender Relationship Specialty Start Date End Date Nathalie Bain MD [address] [place] [address] [address] [place] [address] PCP - General 09/10/19 12/05/22 documented as of this encounter
--- OUTSIDE RECORDS SUMMARY | 2024-03-27 20:56 | XMS_ITS | Encounter Summary ---
Author Organization [facility] Address [address] [place] [address] Care Team Providers Care Entry Level Account Representative Name Role Phone Nathalie Bain MD Primary Care Provider [phone] Latha Aguirre MD Primary Care Provider Unavailable Reason for Visit * Reason Comments Other Encounter Details Date Type Department Care Team (Late st Contact Info) Description 10/17/2019 Refill [facility] Dermatology [address] [place] [phone] Maci Rand MD [address] [place] [phone] Other Social History Tobacco Use Types [...] Info) Description 12/17/2024 13:00 EDT Office Visit [facility] Dermatology [address] [place] [phone] Maci Rand MD [address] [place] [phone] documented as of this encounter Visit Diagnoses Diagnosis Periorificial dermatitis Rosacea documented in this encounter Additional Health Concerns Infection Onset Date Last Indicated Resolved Time COVID-19 11/02/2020 11/02/2020 12/02/2020 22:1 5 EDT documented as of this encounter Care Teams Entry Level Account Representative Relationship Specialty Start Date End Date Nathalie Bain MD [address] [place] [address] PCP - General 09/10/19 12/05/22 Latha Aguirre MD [address] [place] [address] PCP - General Family Medicine - Primary Care 12/06/22 documented as of this encounter
--- OUTSIDE RECORDS SUMMARY | 2024-03-27 20:56 | XMS_ITS | Encounter Summary ---
Author Organization [facility] Address [address] [place] [address] Care Team Providers Care Dispatcher Maintenance Service Name Role Phone Nathalie Bain MD Primary Care Provider [phone] Reason for Visit * Reason Comments Post-OP Follow Up Post-OP Follow Up Encounter Details Date Type Department Care Team (Late st Contact Info) Description 08/12/2020 10:30 EST Office Visit [facility] Orthopedics & Podiatry [address], [address] [place], [place] [address] [facility] Gove[facility] [address] [place] [address] Onychocryptosis (Primary Dx) Social History Tobacco Use Types [...] Taken Comments Blood Pressure - - Pulse 67 08/12/2020 1031 EST Temperature 36 ??C (96.8 ??F) 08/12/2020 1031 EST Respiratory Rate - - Oxygen Saturation 98% 08/12/2020 1031 EST Inhaled Oxygen Concentration - - Weight [...] No 03/16/2020 documented as of this encounter Progress Notes * Pasha Govea, DPM - 08/12/2020 1030 EST Chief Complaint Patient presents with ??? Left Great Toe - Post-OP Follow Up ??? Right Great Toe - Post-OP Follow Up HPI Page is an est. 69 year old patient last seen on 08/02/20. 10 days postop partial nail matrixectomy left hallux both margins, and right hallux medial. Pulse 67 Temp 36 ??C (96.8 ??F) SpO2 98% Physical Exam Alert and oriented. No distress. Afebrile. Nail folds with very mild erythema. No edema, purulent drainage, or odor. Nail grooves are slightlymoist, but no maceration of the nail fold. Thin scabs present in the nail grooves. Smooth cut edge of the nail plate. Assessment and Plan infectious 1. Onychocryptosis Cleansed with Betadine and irrigated with saline. Then rebandaged today with bacitracin ointment and a cloth bandaid. Discontinue soaks and cortisporin drops. Each morning, clean with warm soapy water, rinse, dry well. Apply thin film of abx ointment and a breathable cloth bandage. In evening, remove bandage and clean again in warm soapy water. Rinse and dry well. May leave uncovered overnight. Continue wound care for 1 more week. Should be fully healed by then. Explained what toe should looklike at that time of complete healing. Call if problems Patient Active Problem List Diagnosis ??? Seronegative [...] IN THE EVENING) 96 Tab 2 ??? uhwaktqb-phqk-OI-calcium-mins (ONE-A-DAY WOMENS FORMULA) 18 mg iron-400 mcg- 500 mg Ca tablet Take by mouth. ??? ozpaqlnz-pfmayoxoq-shstjimsipyxis (CORTISPORIN) 3.5-10,000-1 mg/mL-unit/mL-% otic suspension Place 2 Drops in ear(s) 4 times daily for [address] to affected area twice daily. For toes, not ears. 10 mL 0 ??? predniSONE (DELTASONE) 1 mg tablet TAKE TWO TABLETS BY MOUTH EVERY DAY (Patient taking differently: TAKE 3 TABLETS BY MOUTH EVERY DAY) 60 Tab 3 No current facility-administered medications for this visit. Allergies Allergen Reactions ??? Atorvastatin Other reaction(s): elevated LFTs ??? Fentanyl Other reaction(s): altered mental status Pasha Govea DPM [facility] [place], [place] documented in this encounter Plan of Treatment Upcoming Encounters Date Type Department Care Team (Late st Contact Info) Description 12/17/2024 13:00 EDT Office Visit [facility] Dermatology [address] [facility], [place] [address] Maci Rand MD [address] [facility], [facility] [address] [place] [phone] documented as of this encounter Visit Diagnoses Diagnosis Onychocryptosis- Primary Ingrowing nail documented in this encounter Care Teams Dispatcher Maintenance Service Relationship Specialty Start Date End Date Nathalie Bain MD [address] [place] [address] [address] [place] [address] PCP - General 09/10/19 12/05/22 documented as of this encounter
--- OUTSIDE RECORDS SUMMARY | 2024-03-27 20:56 | XMS_ITS | Encounter Summary ---
Author Organization [facility] Address [address] [place] [address] Care Team Providers Care Can Sorter Name Role Phone Nathalie Bain MD Primary Care Provider [phone] Reason for Visit * Reason Comments Follow-up Follow-up Encounter Details Date Type Department Care Team (Late st Contact Info) Description 11/24/2021 15:00 EDT Office Visit [facility] Orthopedics & Podiatry [address] [place], [place] [id number] [facility] [address] [facility] [address] [place] [address] Plantar fasciitis, bilateral (Primary Dx); Heel spur, left; Foot pain, left; Tendonitis, Achilles, left Social History Tobacco Use Types Packs/Day Years [...] 14:50 EDT documented as of this encounter Last Filed Vital Signs Vital Sign Reading Time Taken Comments Blood Pressure - - Pulse 95 11/24/2021 1450 EDT Temperature 36.4 [...] Dispensed Refills Start Date End Da te dexAMETHasone (DECADRON) 4 mg/mL injection 1 mL by other route once for 1 dose. Use at with Iontophoresis at physical therapy left heel. 5 mL 1 11/24/2021 12/12/2023 documented in this encounter Progress Notes * Lakeshia Hebert RN - 11/24/2021 1500 EDT Page presents today for follow up bilateral foot pain. Last seen 10/24/21. Assessment/Plan: 1. Foot pain, left - XR FOOT LEFT 3 OR MORE VIEWS ?? 2. Foot pain, right - XR FOOT RIGHT 3 OR MORE VIEWS ?? 3. Heel spur, left 4. Heel spur, [...] custom molded orthotics discussed for future treatment. * Shanti Zamora DPM - 11/24/2021 1500 EDTAssociated Order(s): Small Joint Injection/Arthrocentesis Post-Procedure Diagnose(s): Foot pain, left Chief Complaint Patient presents with ??? Right Foot - Follow-up ??? Left Foot - Follow-up The primary encounter diagnosis was Plantar fasciitis, bilateral. Diagnoses of Heel spur, left, Foot pain, left, and Tendonitis, Achilles, left were also pertinent to this visit. HPI: 71 y/o female presents for follow up of left heel pain. Patient continues to see Dr. Pasha Wood, Real Estate Office Manager, at [facility] for treatment of seronegative rhematoid arthritis. Started Humira and has finished titering off the Methotrexate ,Gabapentin, and Prednisone Continued pain along the posterior aspect of the left calcaneus along the insertion of the Achillestendon. Continued pain along the plantar medial aspect of the left heel which worsened with the useof the plantar night splint. Patient presents with moderate pain of the left medial plantar heel today. Pain at at 7/10 today left foot. Patient denies any right foot pain today. Patient did complete a 2-week course of naproxen without complications. States that it did help with pain management with her she stopped the medication the left heel pain returned. Patient Active Problem List Diagnosis ??? Seronegative rheumatoid arthritis (HCC-CMS) (HCC) ??? Myalgia ??? Vitamin D deficiency ??? Depression ??? Essential hypertension ??? Acquired hypothyroidism ??? Thyroid cancer (HCC-CMS) (HCC) ??? Obesity (BMI 30-39.9) ??? Colon cancer (HCC-CMS) (HCC) History reviewed. No pertinent past medical history. History reviewed. No pertinent surgical history. Social History Tobacco Use ??? Smoking status: Never Smoker ??? Smokeless tobacco: Never Used Substance Use Topics ??? Alcohol use: Not on file History reviewed. No pertinent family history. Current Outpatient Medications Medication Sig Dispense Refill ??? acetaminophen (TYLENOL) 500 mg tablet Take 500 mg by mouth 2 times daily as needed for Pain. ??? Adalimumab (HUMIRA) 20 mg/0.4 mL syringe kit Inject 20 mg into the skin every 14 days. ??? aspirin chewable 81 mg tablet Take 81 mg by mouth daily. ??? BIOTIN ORAL Take 10,000 mcg by mouth daily. ??? cholecalciferol, Vitamin D3, 1,000 unit tablet Take 1,000 Units by mouth daily. ??? dexAMETHasone (DECADRON) 4 mg/mL injection 1 mL by other route once for 1 dose. Use at with Iontophoresis at physical therapy left heel. 5 mL 1 ??? DULoxetine (CYMBALTA) 30 mg delayed release capsule TAKE 1 CAPSULE (30MG) BY MOUTH IN THE MORNING (Patient not taking: Reported on 05/18/2021) ??? DULoxetine (CYMBALTA) 60 mg capsule Take 60 mg by mouth daily. ??? folic acid (FOLVITE) 1 mg tablet Take 800 mcg by mouth daily. ??? gabapentin (NEURONTIN) 100 mg capsule TAKE THREE CAPSULES BY MOUTH TWICE A DAY (Patient not taking: Reported on 11/24/2021) 180 Cap 5 ??? hydroCHLOROthiazide (HYDRODIURIL) 12.5 [...] MORNING AND 4 TABLETS IN THE EVENING) (Patient not taking: Reported on 11/24/2021) 96 Tab 2 ??? metroNIDAZOLE (METROCREAM) 0.75 % cream Apply topically to affected area 2 times daily. Use a thin layer to affected areas after washing (Patient not taking: Reported on 10/24/2021) 45 g 11 ??? aujmaodl-oiji-UK-calcium-mins (ONE-A-DAY WOMENS FORMULA) 18 mg iron-400 mcg- 500 mg Ca tablet Take by mouth. (Patient not taking: Reported on 05/18/2021) ??? predniSONE (DELTASONE) 1 mg tablet TAKE [...] posterior calcaneus with left > right foot, positive moderate pain with deep palpation of the medial and central aspect of the left plantar fascia with palpable heel spurs. There is no pain upon palpation of the right plantar fascial or posterior heel today, no erythema and no edema noted. Neurologic Exam protective sensation intact bilaterally Vascular Exam: DP/PT 2/4 palpable pulses bilateral, positive capillary refill time < 3 secs Bilaterally, positive pedal hair, mild varicosities, mild telangiectasias, negative venous stasis, negative rubor of dependency PROCEDURE INFORMATION: Exam: XR Right Foot Exam date and time: 10/24/2021 4:37 PM Age: 70 years old Clinical indication: Pain in right foot; Additional info: Right foot pain ?? TECHNIQUE: Imaging protocol: XR Right foot. Views: 3 or more views. Total images: 3 ?? COMPARISON: CR [id number] 03/14/2018 11:15 AM ?? FINDINGS: Bones/joints: There is mild to moderate osteoarthritis of the 1st metatarsal phalangeal joint. There is no fracture or focal bony destruction. There are no periarticular erosions. Soft tissues: There is a large Achilles insertion heel spur with calcification involving the distal Achilles tendon. There is a small plantar fascial heel spur with calcification at the level of the plantar fascia. ?? IMPRESSION 1. No acute findings. 2. Hallux metatarsal phalangeal joint osteoarthritis. No evidence of an erosive arthritis. 3. Heel spurs associated with sequelae of inflammation or tearing at the level the Achilles tendon and plantar fascia. PROCEDURE INFORMATION: Exam: XR Left Foot Exam date and time: 10/24/2021 4:37 PM Age: 70 years old Clinical indication: Pain in left foot; Additional info: Left foot pain ?? TECHNIQUE: Imaging protocol: XR Left foot. Views: 3 or more views. Total images: 3 ?? COMPARISON: CR FOOT-LEFT-2 VIEW 03/14/2018 11:16 AM ?? FINDINGS: Bones/joints: No fracture or focal bony destruction. There is mild hallux metatarsal phalangeal joint osteoarthritis. Soft tissues: There is a large Achilles insertion heel spur. There is extensive ossification at the level of the distal Achilles tendon and or pre Achilles soft tissue. There is a small plantar fascial heel spur with calcification at the level of the proximal plantar fascia. ?? IMPRESSION 1. No acute findings. 2. Mild osteoarthritis of the hallux metatarsal phalangeal joint. No evidence of an erosive arthritis. 3. Heel spurs. 4. Evidence of prior inflammation and or tearing at the level of the plantar fascia and distal Achilles tendon. Assessment/Plan: 1. Foot pain, left 2. Foot pain, right Stable at this time. A heel lift was applied under the patient's insole in her right sneaker since that heel lift was placed in her left sneaker to treat the insertional calcaneal Achilles tendinitis. 3. Heel spur, left 4. Heel spur, right 5. Plantar fasciitis, bilateral Right plantar fasciitis pain is controlled. Discussed steroid injection to the left heel today. Patient desires to have an injection to the left medial heel. She understands that injection cannot be performed into the posterior calcaneal area or along the insertion of the Achilles tendon. LEFT MEDIAL HEEL INJECTION: Verbal and written consent obtained. Small Joint Injection/Arthrocentesis on 11/24/2021 15:00 Medications: 1 mL bupivacaine (PF) 0.5%; 1 mL lidocaine (PF) 10 mg/mL (1 %); 4 mg dexAMETHasone 4 mg/mL Attention was directed to the medial aspect of her left heel where alcohol and Betadine was used toprep the area. Ethyl chloride sprayed along the medial aspect of the left heel and the injection was inserted into the left ear through medial approach. No complications were encountered. A Band-Aid was applied. Patient is to keep the Band-Aid on for 24 hours and may shower tomorrow. Do not soak the foot for at least 5 days. Apply ice to the area for 10 minutes once a day for 5 days. She is to limit her activity for the next 5 days and may start gentle range of motion and stretching tomorrow ifable to do so. Procedure, treatment alternatives, risks and benefits explained, specific risks discussed. Immediately prior to procedure a time out was called to verify the correct patient, procedure, equipment, wan support specialist and site/side marked as required. Patient was prepped and draped in the usual sterile fashion. 6. Insertional Achilles tendinitis with heel spur syndrome left. Heel lift applied under the left foot sneaker insole. Recommended the patient start physical therapy. She desires to see physical therapist near her home. Prescription for dexamethasone 4 mg/mL 5 mL total vial was sent to her local pharmacy. The patient is to pick up driver this prescription and take to her with her to her physical therapy appointment for use during iontophoresis treatment of the left heel. Patient has called ahead and confirmed that Dr. Mk Schmidt, PT has the device and is able to perform the treatment. Follow up in 6 weeks. Shanti Zamora DPM, [facility] [place], [place] documented in this encounter Miscellaneous Notes * Telephone Encounter - Shanti Zamora DPM - 11/24/2021 1500 EDT Completed prior auth paperwork and it was faxed to her insurance company today. documented in this encounter Plan of Treatment Upcoming Encounters Date Type Department Care Team (Late st Contact Info) Description 12/17/2024 13:00 EDT Office Visit [facility] Dermatology [address] [facility], [place] [address] Maci Rand MD [address] [place] [address], [facility] [address] [place] [address] documented as of this encounter Procedures Procedure Name Priority Date/Time Associated Diagnosis Comments SMALL JOINT INJECTION/ARTHROCEN TESIS Routine 11/24/2021 15:00 EDT Foot pain, left documented in this encounter Results * OH ARTHROCENTESIS ASPIR&/INJ SMALL JT/BURSA W/O US (11/24/2021 15:00 EDT) Narrative [facility] POINT OF CARE - 11/24/2021 15:00 EDT Shanti Zamora DPM ? 2021 ??8:24 Small Joint Injection/Arthrocentesis on 11/24/2021 15:00 Medications: 1 mL bupivacaine (PF) 0.5%; 1 mL lidocaine (PF) 10 mg/mL (1 %); 4 mg dexAMETHasone 4 mg/mL Attention was directed to the medial aspect of her left heel where alcohol and Betadine was used to prep the area. ??Ethyl chloride sprayed along the medial aspect of the left heel and the injection was inserted into the left ear through medial approach. ??No complications were encountered. ??A Band-Aid was applied. ??Patient is to keep the Band-Aid on for 24 hours and may shower tomorrow. ??Do not soak the foot for at least 5 days. Apply ice to the area for 10 minutes once a day for 5 days. ??She is to limit her activity for the next 5 days and may start gentle range of motion and stretching tomorrow if able to do so. Procedure, treatment alternatives, risks and benefits explained, specific risks discussed. Immediately prior to procedure a time out was called to verify the correct patient, procedure, equipment, wan support specialist and site/side marked as required. Patient was prepped and draped in the usual sterile fashion. Shanti Zamora DPM PROCEDURE/MINOR SURG ICAL ORDERABLES [facility] POINT OF CARE documented in this encounter Visit Diagnoses Diagnosis Plantar fasciitis, bilateral- Primary Plantar fascial fibromatosis Heel spur, left Foot pain, left Pain in limb Tendonitis, Achilles, left Achilles bursitis or tendinitis documented in this encounter Administered Medications Inactive Administered Medications - up to 3 most recent administrations Medication Order MAR Action Action Date Dose Rate Site bupivacaine (PF) (MARCAINE) 0.5% injection 1 mL 1 mL, injection, Once PRN Procedure, 1 dose, Starting on Margarita 11/24/21 at 1500, Until Margarita 11/24/21 at 1500, Routine Given 11/24/2021 15:00 EDT 1 mL dexAMETHasone (DECADRON) injection 4 mg 4 mg, other, Once PRN Procedure, 1 dose, Starting on Margarita 11/24/21 at 1500, Until Margarita 11/24/21 at 1500, Routine Given 11/24/2021 15:00 EDT 4 mg lidocaine (PF) 10 mg/mL (1 %) injection 1 mL 1 mL, other, Once PRN Procedure, 1 dose, Starting on Margarita 11/24/21 at 1500, Until Margarita 11/24/21 at 1500, Routine Given 11/24/2021 15:00 EDT 1 mL documented in this encounter Historical Medications * This list may reflect changes made after this encounter. Medication Sig Dispensed Refills Start Date End Date Adalimumab (HUMIRA) 20 mg/0.4 mL syringe kit Inject 20 mg into the skin every 14 days. added in this encounter Care Teams Can Sorter Relationship Specialty Start Date End Date Nathalie Bain MD [address] [place] [address] [address] [place] [phone] PCP - General 09/10/19 12/05/22 documented as of this encounter
--- OUTSIDE RECORDS SUMMARY | 2024-03-27 20:56 | XMS_ITS | Encounter Summary ---
Author Organization [facility] Address [address] [place] [address] Care Team Providers Care Senior Receptionist Name Role Phone Unknown, Provider Primary Care Provider [phone] Reason for Visit * Reason Onset Date Comments Prior Auth, Medication 08/19/2019 Tacrolimu s 0.03% ointment Encounter Details Date Type Department Care Team (Late st Contact Info) Description 08/19/2019 Telephone [facility] Dermatology [address] [place] [id number] Jason Gallegos RN Prior Auth, Medication (Tacrolimus 0.03% ointment) Social History Tobacco Use Types Packs/Day Years Used Date Smoking Tobacco: Never Smokeless Tobacco: Never Sex and Gender Information Value Date Recorded Sex Assigned at Not on file Gender Identity Female 10/14/2021 11:22 EDT Sexual Orientation Not on file documented as of this encounter Miscellaneous Notes * Telephone Encounter - Jason Gallegos RN - 08/20/2019 0805 EST PA approved from 08/19/2019 to 07/29/2020. Approval faxed to [employer] in [place] and copy to be scanned into chart. * Telephone Encounter - Jason Gallegos RN - 08/19/2019 1629 EST PA submitted via covermymeds awaiting response. documented in this encounter Plan of Treatment Upcoming Encounters Date Type Department Care Team (Late st Contact Info) Description 12/17/2024 13:00 EDT Office Visit [facility] Dermatology [address] [facility], [place] [address] Maci Rand MD [address] [facility], [facility] [address] [place] [address] documented as of this encounter Visit Diagnoses Not on filedocumented in this encounter Care Teams Senior Receptionist Relationship Specialty Start Date End Date Unknown, Provider, PCP - General 08/16/09 09/09/19 documented as of this encounter
--- OUTSIDE RECORDS SUMMARY | 2024-03-27 20:56 | XMS_ITS | Encounter Summary ---
Author Organization [facility] Address [address] [place] [address] Care Team Providers Care Director Skills Name Role Phone Unknown, Provider Primary Care Provider [phone] Nathalie Bain MD Primary Care Provider [phone] Latha Aguirre MD Primary Care Provider Unavailable Reason for Visit * Reason Onset Date Comments Other Medications Refill 08/11/2019 Encounter Details Date Type Department Care Team (Late st Contact Info) Description 08/09/2019 Refill [facility] Rheumatology [address] [place] [address] Pasha Wood MD [facility] Rheumatology [address] [place] [address] [place] [address] Other; Medications Refill Social History Tobacco Use Types Packs/Day Years Used Date Smoking Tobacco: Never Smokeless Tobacco: Never Sex and Gender Information Value Date Recorded Sex Assigned at Not on file Gender Identity Female 10/14/2021 11:22 EDT Sexual Orientation Not on file documented as of this encounter Ordered Prescriptions Prescription Sig Dispensed Refills Start Date End Da te methotrexate 2.5 mg tablet TAKE 8 TABLETS BY MOUTH ONCE A WEEK. TAKE 4 IN THE MORING AND 4 IN THE EVENING 96 Tab 1 08/11/2019 02/02/2020 documented in this encounter Miscellaneous Notes * Telephone Encounter - Gris Cazares RN - 08/11/2019 0919 EST Called pt and reminded her of labwork due in July. documented in this encounter Plan of Treatment Upcoming Encounters Date Type Department Care Team (Late st Contact Info) Description 12/17/2024 13:00 EDT Office Visit [facility] Dermatology [address] [facility], [place] [address] Maci Rand MD [address] [facility] 5 [place] [phone] documented as of this encounter Visit Diagnoses Not on filedocumented in this encounter Discontinued Medications Medication Sig Discontinue Reason Start Date End Da te methotrexate 2.5 mg tablet Take 2.5 mg by mouth once a week. Takes 8 tabs of 2.5mg once weekly. 4 tabs in the AM and 4 tabs in the evening 08/11/2019 documented as of this encounter Additional Health Concerns Infection Onset Date Last Indicated Resolved Time COVID-19 11/02/2020 11/02/2020 12/02/2020 22:1 5 EDT documented as of this encounter Care Teams Director Skills Relationship Specialty Start Date End Date Unknown, MD Champ PCP - General 08/16/09 09/09/19 Nathalie Bain MD [address] [place] [address] PCP - General 09/10/19 12/05/22 Latha Aguirre MD [address] [place] [address] PCP - General Family Medicine - Primary Care 12/06/22 documented as of this encounter
--- OUTSIDE RECORDS SUMMARY | 2024-03-27 20:56 | XMS_ITS | Encounter Summary ---
Author Organization [facility] Address [address] [place] [address] Care Team Providers Care Vascular Physician Name Role Phone Nathalie Bain MD Primary Care Provider [phone] Latha Aguirre MD Primary Care Provider Unavailable Reason for Visit * Reason Comments Other Encounter Details Date Type Department Care Team (Late st Contact Info) Description 01/29/2020 Refill [facility] Rheumatology [address] [place] [address] Pasha Wood MD [address] [place] [phone] Other Social History Tobacco Use Types Packs/Day [...] 4 TABLETS IN THE EVENING) 96 Tab 1 02/02/2020 02/02/2020 documented in this encounter Plan of Treatment Upcoming Encounters Date Type Department Care Team (Late st Contact Info) Description 12/17/2024 13:00 EDT Office Visit [facility] Dermatology [address] [facility], [place] [address] Maci Rand MD [address] [facility] [place] [address] documented as of this encounter Visit Diagnoses Not on filedocumented in this encounter Discontinued Medications Medication Sig Discontinue Reason Start Date End Da te methotrexate 2.5 mg tablet TAKE 8 TABLETS BY MOUTH ONCE A WEEK. TAKE 4 IN THE MORING AND 4 IN THE EVENING 08/11/2019 02/02/2020 documented as of this encounter Additional Health Concerns Infection Onset Date Last Indicated Resolved Time COVID-19 11/02/2020 11/02/2020 12/02/2020 22:1 5 EDT documented as of this encounter Care Teams Vascular Physician Relationship Specialty Start Date End Date Nathalie Bain MD [address] [place] [address] PCP - General 09/10/19 12/05/22 Latha Aguirre MD [address] [place] [address] PCP - General Family Medicine - Primary Care 12/06/22 documented as of this encounter
--- OUTSIDE RECORDS SUMMARY | 2024-03-27 20:56 | XMS_ITS | Encounter Summary ---
Author Organization [facility] Address [address] [place] [address] Care Team Providers Care Aluminum Polisher Name Role Phone Nathalie Bain MD Primary Care Provider [phone] Reason for Visit * Reason Comments Other Encounter Details Date Type Department Care Team (Late st Contact Info) Description 10/16/2019 Refill [facility] Rheumatology [address] [place] [address] Pasha Wood MD [facility] Rheumatology [address] [place] [address] [place] [phone] Other Social History Tobacco Use Types Packs/Day Years Used Date Smoking Tobacco: Never Smokeless Tobacco: Never Sex and Gender Information Value Date Recorded Sex Assigned at Not on file Gender Identity Female 10/14/2021 11:22 EDT Sexual Orientation Not on file documented as of this encounter Miscellaneous Notes * Telephone Encounter - Jennifer Pitts RN - 10/16/2019 1052 EDT Prednisone filled 10/15/[address] Wood. documented in this encounter Plan of Treatment Upcoming Encounters Date Type Department Care Team (Late st Contact Info) Description 12/17/2024 13:00 EDT Office Visit [facility] Dermatology [address] [facility], [place] [address] Maci Rand MD [address] [facility], Level 5 [place] [phone] documented as of this encounter Visit Diagnoses Not on filedocumented in this encounter Care Teams Aluminum Polisher Relationship Specialty Start Date End Date Nathalie Bain MD [address] [place] [phone] PCP - General 09/10/19 12/05/22 documented as of this encounter
--- OUTSIDE RECORDS SUMMARY | 2024-03-27 20:56 | XMS_ITS | Encounter Summary ---
Author Organization [facility] Address [address] [place] [address] Care Team Providers Care Temperature Regulator Pyrometer Name Role Phone Nathalie Bain MD Primary Care Provider [phone] Reason for Visit * Reason Comments Follow-up SNRA; didn't return call for televideo chart prep Encounter Details Date Type Department Care Team (Late st Contact Info) Description 03/16/2020 9:30 EDT Telemedicine [facility] Rheumatology [address] [place] [address] Pasha Wood MD [facility] Rheumatology [address] [place] [address] [place] [address] Seronegative rheumatoid arthritis of multiple sites ([facility]) (Primary Dx) Social History Tobacco Use Types [...] * Patient Instructions* Pasha Wood MD - 03/16/2020 9:30 EDT Continue methotrexate 20 mg weekly. Next laboratory tests will be due April 02, 2020. Increase prednisone to 3 mg daily. documented in this encounter Progress Notes * Pasha Wood MD - 03/16/[address] [facility] Rheumatology Chief Complaint Patient presents with ??? Follow-up SNRA; didn't return call for televideo chart prep This is a telemedicine visit that was performed with the originating site at that patients home address (please see electronic health record for applicable address) and the distant site at my home office. Verbal consent to participate in ZOOM video visit was obtained by Pasha Wood MD or the rooming teacher's assistant as documented in their note. This [...] and all questions have been answered to patient???s satisfaction. Patient consents for the use of telemedicine in his/her medical care and authorizes the transmission of any relevant medical information to providers and their staff involved in patient???s medical or mental health care. HPI: This is a scheduled follow up [...] by Dr. Dharmesh Cummings who was a detacker emeritus at [employer]. He confirmed the diagnosis of polymyalgia rheumatica [...] Stiffness in the MCPs especially. 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 Has other aches and pains yet not limiting. Joints are actually better in the morning not painful but stiff. Currently taking methotrexate 20 mg weekly. Takes 10 mg in the morning and 10 in the evening on theday that she takes this medication. Currently on prednisone 2 mg daily Current Outpatient Medications Medication ??? acetaminophen (TYLENOL) 500 mg tablet ??? ALPRAZolam (XANAX) 0.5 mg tablet ??? aspirin chewable 81 mg tablet ??? [id number]-axco-tzj-zaqd-yrm (CALTRATE 600-D PLUS MINERALS) 600 mg calcium- 800 unit-50 mg tablet ??? cholecalciferol, Vitamin D3, 1,000 unit tablet ??? DULoxetine (CYMBALTA) 60 mg capsule ??? gabapentin (NEURONTIN) 100 mg capsule ??? hydroCHLOROthiazide (HYDRODIURIL) 12.5 mg tablet ??? hydrocortisone 1 % ointment ??? hydroxychloroquine (PLAQUENIL) 200 mg tablet ??? levothyroxine (SYNTHROID) 125 mcg tablet ??? losartan (COZAAR) 100 mg tablet ??? methotrexate 2.5 mg tablet ??? metroNIDAZOLE (METROCREAM) 0.75 % cream ??? qqqrrzaa-bkaq-NP-calcium-mins (ONE-A-DAY WOMENS FORMULA) 18 mg iron-400 mcg- 500 mg Ca tablet ??? pimecrolimus (ELIDEL) 1 % cream ??? predniSONE (DELTASONE) 1 mg tablet No current facility-administered medications for this visit. Allergies include: Atorvastatin and Fentanyl Review of Systems: Had PA for Remicade yet did not start this. She is concerned about the risk of developing malignancy. She is also concerned given the pandemic She previously used Remicade for inflammatory bowel disease. Continues to be very busy with her 3 grandchildren living with her now due to the virus. They will be attending local school in [place]. Now her son is with them as well. Good energy. Cooking and doing laundry. Has been very active with home schooling. HEENT: No mouth sores. No facial rash. Hydroxychloroquine stopped due to hair thinning Hands are the biggest issue for her. Stiff in the morning especially in the MCPs. Pain is actually better in the morning. No chest pain or palpitations. No rashes. No cardiorespiratory sxs. No GI sxs. Physical Examination: There were no vitals taken for this visit. Pain score 2-3/10 ?General appearance and movement: alert, nontoxic; deconditioned appearing; looks more animated ?HEENT: anicteric sclerae, conjunctivae clear; no facial rash Appropriate speech thought and content ? Labs: ? 03/29/2011: Rheumatoid factor negative. [...] Protein, External 01/01/2020 7.2 ??? Bilirubin, Total, Gerontology Aide* 01/01/2020 0.6 ??? C-Reactive Protein, Exte* 01/01/2020 [...] Basophils, External 01/01/2020 0.03 ??? Sed. Rate Jordan, Ex* 01/01/2020 20 Diagnosis / Assessment: 1. Seronegative rheumatoid arthritis ([facility]) I have thought that her musculoskeletal symptoms have been under good control with methotrexate 20 mg weekly in combination with prednisone 2 mg daily. She appears to be having some increase in symptoms in her hands especially with stiffness and decreased function in the morning. She thinks that she may be doing a little bit better if she increases prednisone. We discussed increasing prednisone to 3 mg daily. She had at one point been off of prednisone completely yet needed to go back on this for comfort. Hydroxychloroquine was added as a steroidsparing agent yet this resulted in hair thinning. She will be due for methotrexate monitoring labs S epteer 2019. 2. Vitamin D deficiency She will continue her vitamin D supplementation and her multivitamin. I recommended increasing vitamin D intake by 1000 international units daily. Current vitamin D level is 22. I recommended dietary calcium. Recommendations/Evaluation: Total umvq-vf-olgy time: 25 minutes, >50% spent counseling on above issues. Pasha Wood MD documented in this encounter Plan of Treatment Upcoming Encounters Date Type Department Care Team (Late st Contact Info) Description 12/17/2024 13:00 EDT Office Visit [facility] Dermatology [address] [facility], [place] [address] Maci Rand MD [address] [place] [address], [facility] 5 [place] [address] documented as of this encounter Visit Diagnoses Diagnosis Seronegative rheumatoid arthritis of multiple sites ([facility])- Primary documented in this encounter Care Teams Temperature Regulator Pyrometer Relationship Specialty Start Date End Date Nathalie Bain MD [address] [place] [address] [address] [place] [phone] PCP - General 09/10/19 12/05/22 documented as of this encounter
--- OUTSIDE RECORDS SUMMARY | 2024-03-27 20:56 | XMS_ITS | Encounter Summary ---
Author Organization [facility] Address [address] [place] [address] Care Team Providers Care Hoof And Shoe Inspector Name Role Phone Nathalie Bain MD Primary Care Provider [phone] Latha Aguirre MD Primary Care Provider Unavailable Encounter Details Date Type Department Care Team (Late st Contact Info) Description 11/03/2020 Lab Requisition [facility] Pathology & Laboratory Medicine - [address] [address] Outr Resulting Lab, Provider Social History Tobacco [...] Info) Description 12/17/2024 13:00 EDT Office Visit [facility] Dermatology [address] [place] [address] Maci Rand MD [address] [facility], [address] [place] [address] documented as of this encounter Procedures Procedure Name Priority Date/Time Associated Diagnosis Comments ZZCOVID-19 TEST [facility] PCR Today 11/02/2020 18:00 EDT COVID-19 TESTING Routine 11/02/2020 18:0 0 EDT documented in this encounter Results * COVID-19 TEST [facility] PCR (11/02/2020 18:00 EDT) Swab ENTIRE NASOPHARYNX / Unknown 11/02/2020 18:00 EDT 11/03/2020 15:40 EDT Provider Outr Resulting Lab MICROBIOLOGY - GENERAL ORDERABLES [facility] [address] [place] [address] * (ABNORMAL) COVID-19 TESTING (11/02/2020 18:00 EDT) COVID-19 rt-PCR Result Positive( AA) Negative 11/04/2020 13:58 EDT [facility] Comment: This test has not been FDA cleared or approved. This test has been authorized by FDA under an EUA for use by authorized laboratories. This test has been authorized only for detection of nucleic acid from 2019-nCoV, not for any other viruses or pathogens. This test is only authorized for the duration of the declaration that circumstances exist justifying the authorization of emergency use of in vitro diagnostic tests for detection and/or diagnosis of 2019-nCoV under section 564(b)(1) of Act, 21 U.S.C ?? 360bbb-3(b) (1), unless the authorization is terminated or revoked sooner. Testing was performed using the abdi SARS-CoV-2 assay ([employer] on the Abdi 6800 System Performing Lab Abdi 6800 [facility] 11/04/2020 13:58 EDT [facility] Swab 11/02/2020 18:0 0 EDT 11/03/2020 15:40 EDT Provider Outr Resulting Lab MICROBIOLOGY - GENERAL ORDERABLES [facility] [address] [place] [address] documented in this encounter Visit Diagnoses Not on filedocumented in this encounter Additional Health Concerns Infection Onset Date Last Indicated Resolved Time COVID-19 11/02/2020 11/02/2020 12/02/2020 22:1 5 EDT documented as of this encounter Care Teams Hoof And Shoe Inspector Relationship Specialty Start Date End Date Nathalie Bain MD [address] [place] [address] PCP - General 09/10/19 12/05/22 Latha Aguirre MD [address] [place] [address] PCP - General Family Medicine - Primary Care 12/06/22 documented as of this encounter
--- OUTSIDE RECORDS SUMMARY | 2024-03-27 20:56 | XMS_ITS | Encounter Summary ---
Author Organization [facility] Address [address] [place] [address] Care Team Providers Care Burr Machine Operator Name Role Phone Nathalie Bain MD Primary Care Provider [phone] Reason for Visit * Reason Onset Date Comments Medication Problem 07/13/2022 Cost issue Encounter Details Date Type Department Care Team (Late st Contact Info) Description 07/13/2022 Telephone [facility] Dermatology [address] [place] [address], [place] [address] Maci Rand MD [address] [facility], [facility] 5 [place] [address] Medication Problem (Cost issue) Social History Tobacco Use Types Packs/Day Years [...] Dispensed Refills Start Date End Da te metroNIDAZOLE (METROCREAM) 0.75 % creamIndications:Rosacea Apply topically to affected area 2 times daily. Use a thin layer to affected areas after washing 45 g 11 07/13/2022 12/06/2022 documented in this encounter Miscellaneous Notes * Telephone Encounter - Jason Gallegos RN - 07/13/2022 1255 EST Spoke with patient's spouse Lavelle and advised that with GoodRx coupon they should be able to get a 1 time fill of the metroNIDAZOLE (METROCREAM) 0.75 % cream at [facility] for $43.43-$44.68. Lavelle voiced understanding and in agreement with plan. Coupon printed in office and prepared for mailing and refill ERx'd to [facility] in [place]. * Telephone Encounter - Mich Saavedra - 07/13/2022 1221 EST Patients spouse called to share that Page needs a refill for metronidazole but that it was expensive last time and was wondering if there was a less expensive alternative. New prescription can besent to [facility] in [place]. documented in this encounter Plan of Treatment Upcoming Encounters Date Type Department Care Team (Late st Contact Info) Description 12/17/2024 13:00 EDT Office Visit [facility] Dermatology [address] [place] [address], [place] [address] Maci Rand MD [address] [place] [address], [facility] 5 [place] [address] documented as of this encounter Visit Diagnoses Diagnosis Rosacea- Primary documented in this encounter Discontinued Medications Medication Sig Discontinue Reason Start Date End Da te metroNIDAZOLE (METROCREAM) 0.75 % creamIndications:Rosace a Apply topically to affected area 2 times daily. Use a thin layer to affected areas after washing Reorder 05/18/2021 07/13/2022 documented as of this encounter Care Teams Burr Machine Operator Relationship Specialty Start Date End Date Nathalie Bain MD [address] [place] [address] PCP - General 09/10/19 12/05/22 documented as of this encounter
--- OUTSIDE RECORDS SUMMARY | 2024-03-27 20:56 | XMS_ITS | Encounter Summary ---
Author Organization [facility] Address [address] [place] [address] Care Team Providers Care Potash Flaker Name Role Phone Nathalie Bain MD Primary Care Provider [phone] Latha Aguirre MD Primary Care Provider Unavailable Reason for Visit * Reason Comments Other Encounter Details Date Type Department Care Team (Late st Contact Info) Description 10/18/2019 Refill [facility] Rheumatology [address] [place] [address] Pasha Wood MD [address] [place] [phone] Other Social History Tobacco Use Types Packs/Day [...] Info) Description 12/17/2024 13:00 EDT Office Visit [facility] Dermatology [address] [facility], [place] [address] Maci Rnad MD 111 [facility], [facility] 5 [place] [address] documented as of this encounter Visit Diagnoses Not on filedocumented in this encounter Additional Health Concerns Infection Onset Date Last Indicated Resolved Time COVID-19 11/02/2020 11/02/2020 12/02/2020 22:1 5 EDT documented as of this encounter Care Teams Potash Flaker Relationship Specialty Start Date End Date Nathalie Bain MD [address] [place] [address] PCP - General 09/10/19 12/05/22 Latha Aguirre MD [address] [place] [address] PCP - General Family Medicine - Primary Care 12/06/22 documented as of this encounter
--- OUTSIDE RECORDS SUMMARY | 2024-03-27 20:56 | XMS_ITS | Encounter Summary ---
Author Organization [facility] Address [address] [place] [address] Care Team Providers Care Polisher And Buffer Name Role Phone Nathalie Bain MD Primary Care Provider [phone] Encounter Details Date Type Department Care Team (Late st Contact Info) Description 04/29/2020 Abstract [facility] Rheumatology [address] [place], [place] [id number] Pasha Wood MD [facility] Rheumatology [address] [place] [address] [place] [address] Social History Tobacco Use Types Packs/Day Years [...] Description 12/17/2024 13:[address] [facility] Dermatology [address] [facility], [place] [address] Maci Rand MD 111 [facility], [facility] 5 [place] [address] documented as of this encounter Procedures Procedure Name Priority Date/Time Associated Diagnosis Comments SED RATE Routine 04/27/2020 COMPLETE BLOOD COUNT AND DIFFERENTIAL Routine 04/27/2020 C REACTIVE PROTEIN Routine 04/27/2020 COMPREHENSIVE METABOLIC PANEL (CMP) Routine 04/27/2020 documented in this encounter Results * (ABNORMAL) COMPREHENSIVE METABOLIC PANEL (CMP) (04/27/2020) Pathologist [facility] GFR, Calculated, External >60 Glucose, Serum, External 99 74 - 106 Albumin, External 3.3(A) 3.4 - 5.0 Total Alkaline Phosphatase, External 70 46 - 116 ALT, External 32 14 - 59 AST, External 27 15 - 37 BUN, External 10 7 - 18 Calculated Calcium, External Calcium, External 9.5 8.5 - 10.1 Chloride, External 104 98 - 107 CO2, External 32.0 21.0 - 32.0 Creatinine, External 0.68 0.55 - 1.02 Fasting?, External Potassium, External 3.7 3.5 - 5.1 Sodium, External 142 136 - 145 Total Protein, External 6.7 6.4 - 8.2 Bilirubin, Total, External 0.5 0.2 - 1.0 Blood VENOUS BLOOD / Unknown 04/27/2020 Historical Provider CHEMISTRY & BLOOD GAS ORDERABLES * (ABNORMAL) C REACTIVE PROTEIN (04/27/2020) C-Reactive Protein, External 0.83(A) 0.0 - 0.3 Blood VENOUS BLOOD / Unknown 04/27/2020 Historical Provider CHEMISTRY & BLOOD GAS ORDERABLES * (ABNORMAL) COMPLETE BLOOD COUNT AND DIFFERENTIAL (04/27/2020) WBC, External 8.53 4.4 - 10.8 RBC, External 4.09 3.93 - 5.22 Hemoglobin, External 13.2 11.2 - 15.7 HCT, External 40.8 36.0 - 46.0 MCV, External 99.8(A) 80 - 95 MCH, External 32.3 27.0 - 33.0 MCHC, External 32.4 32.0 - 36.0 PLT, External 368 130 - 400 RDW-CV, External 15.5(A) 11.7 - 14.6 Neutrophils, External 75.6 Lymphocytes, External 11.5 Monocytes, External 8.7 Eosinophils, External 3.5 Basophils, External 0.5 ABS Neutrophils, External 6.45 1.2 - 6.7 ABS Lymphs, External 0.98(A) 1.2 - 3.4 ABS Monocytes, External 0.74 0.1 - 0.8 ABS Eosinophils, External 0.30 0.0 - 0.7 ABS Basophils, External 0.04 0.0 - 0.2 Blood VENOUS BLOOD / Unknown 04/27/2020 Historical Provider PACKAGES & DNA SC OBE ORDERABLES * SED. RATE:CADEREN (04/27/2020) Pathologist [facility] Sed. Rate Westergren, External 16 0 - 30 Blood VENOUS BLOOD / Unknown 04/27/2020 Historical Provider HEMATOLOGY & PF4 ORDERABLES documented in this encounter Visit Diagnoses Not on filedocumented in this encounter Care Teams Polisher And Buffer Relationship Specialty Start Date End Date Nathalie Bain MD [address] [place] [address] [address] [place] [address] PCP - General 09/10/19 12/05/22 documented as of this encounter
--- OUTSIDE RECORDS SUMMARY | 2024-03-27 20:56 | XMS_ITS | Encounter Summary ---
Author Organization [facility] Address [address] [place] [address] Care Team Providers Care Outdoor Studies Professor Name Role Phone Nathalie Bain MD Primary Care Provider [phone] Latha Aguirre MD Primary Care Provider Unavailable Reason for Visit * Reason Comments Other Encounter Details Date Type Department Care Team (Late st Contact Info) Description 10/15/2019 Refill [facility] Dermatology [address] [place] [address] Maci Rand MD [address] [place] [address] Other Social History Tobacco Use Types [...] 12/17/2024 13:00 EDT Office Visit [facility] Dermatology [address] [place] [phone] Maci Rand MD [address] [place] [phone] documented as of this encounter Visit Diagnoses Diagnosis Periorificial dermatitis Rosacea documented in this encounter Additional Health Concerns Infection Onset Date Last Indicated Resolved Time COVID-19 11/02/2020 11/02/2020 12/02/2020 22:1 5 EDT documented as of this encounter Care Teams Outdoor Studies Professor Relationship Specialty Start Date End Date Nathalie Bain MD [address] [place] [address] PCP - General 09/10/19 12/05/22 Latha Aguirre MD [address] [place] [address] PCP - General Family Medicine - Primary Care 12/06/22 documented as of this encounter
--- OUTSIDE RECORDS SUMMARY | 2024-03-27 20:56 | XMS_ITS | Encounter Summary ---
Author Organization [facility] Address [address] [place] [address] Care Team Providers Care Stone Unloader Name Role Phone Latha Aguirre MD Primary Care Provider Unavailable Reason for Visit * Reason Comments Follow-up Skin lesion on nose, and spot check.Rash around stoma. Encounter Details Date Type Department Care Team (Late st Contact Info) Description 12/12/2023 13:20 EDT Office Visit [facility] Dermatology [address] [place] [address], [place] [address] Maci Rand MD 111 [facility], [facility] 5 [place] [address] Actinic keratoses (Primary Dx); Allergic reaction to adhesive; Stoma dermatitis; Actinic skin damage Social History Tobacco Use [...] this encounter Patient Instructions * Patient Instructions* Maci Rand MD - 12/12/2023 13:20 EDT Look for 3M cavilon No sting Barrier film When rash around stoma is flaring, first apply the clobetasol solution, let it dry, then apply the barrier film When rash is no longer flaring, do not need steroid. Can just apply the barrier film and then the adhesive. WOUND CARE INSTRUCTIONS FOR CRYOSURGERY (FREEZING THERAPY) Treatment with liquid nitrogen (cryosurgery) causes localized swelling, throbbing, and blister formation. Do not pop an intact blister. If the blisters open, apply Vaseline/petroleum jelly daily until the area heals. We do not recommend the use of triple antibiotic ointment or other ointments as they can cause allergic reactions and do not significantly reduce the incidence of infection, which is very rare to start with. . CONTACT THE OFFICE IF YOU EXPERIENCE: increasing redness warmth to touch increasing pain drainage with a foul odor rapid swelling of the wound fever or chills It was a pleasure taking care of you today. Please call our office or if you have any concerns or questions. documented in this encounter Ordered Prescriptions Prescription Sig Dispensed Refills Start Date End Da te clobetasoL (TEMOVATE) 0.05 % external solutionIndications:Allergi c reaction to adhesive,Stoma dermatitis Apply to rash around stoma daily when flaring. 50 mL 4 12/12/2023 documented in this encounter Progress Notes * Maci Rand MD - 12/12/2023 1320 EDT Dermatology Outpatient Visit Note Chief Complaint Patient presents with Follow-up Skin lesion on nose, and spot check. Rash around stoma. Dermatologic History: Hx AKs - cryotherapy SKs - cryotherapy Periorificial dermatitis - metrocream, Elidel cream - previously: doxycycline taper x 12 weeks Rash of right shoulder and ostomy site - irritant vs allergic contact - triamcinolone cream Intertrigo - ketoconazole cream, trimacinolone cream Rosacea - metrocream Tinea pedis Last Dermatology Clinic Visit: November 2022 SUBJECTIVE: Page Katz is a 73 y.o. female who presents for follow up for skin exam and evaluation of rasharound stoma. - notes lesion on nose, present for a few months - rash around stoma under adhesive for last several weeks. Had issue in the past, but not recently.Now with red rash that itches and chowdhury at times. Uses a stoma powder, but has not tried treating otherwise. OBJECTIVE: Cutaneous full body examination excluding genitalia was performed. - nose: pink gritty papule - stoma site on abdomen: well-demarcated erythema under adhesive. No notable vesicles - actinic injury and bland cortez macules in photo-distribution ASSESSMENT & PLAN: Actinic keratoses Given the risk for actinic keratoses to progress to squamous cell carcinomas, recommend treatment with liquid nitrogen cryosurgery today. Patient agrees with this plan. The expected reaction and healing course were discussed (blistering or scabbing reaction), as well as possibility of incomplete resolution and/or permanent dyspigmentation. She will return if lesion fails to fully resolve. 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 - When rash around stoma is flaring, first apply the clobetasol solution, let it dry, then apply the barrier film - When rash is no longer flaring, do not need steroid. Can just apply the barrier film and then theadhesive. - clobetasoL (TEMOVATE) 0.05 % external solution; Apply to rash around stoma daily when flaring. Dispense: 50 mL; Refill: 4 - discussed that clobetasol solition may sting and to notify if not tolerable. Will find alternative - discussed that possible to develop reaction to 3M cavilon as well. Stop use if rash worsen. Actinic skin damage The nature of sun-induced photo-aging and skin cancers is discussed. Sun avoidance, protective clothing, and the use of OTC broad spectrum 50+-SPF sunscreens with both UVA and UVB coverage is advised. Observe closely for skin damage/changes, and call if such occurs. PROCEDURE: Cryotherapy procedure note A total of 1 pre-malignant lesions at the following sites were destroyed with liquid nitrogen cryotherapy: nose. Risks of the procedure include but are not limited to pain, edema, blistering and resultant hypopigmentation. The risk/benefits of this procedure have been relayed and verbal consent wasobtained prior to the procedure. Wound care instructions were provided. The attending physician personally performed the procedure. FOLLOW UP: Return in about 1 year (around 12/11/2024) for FBSE. Maci Rand MD 12/12/2023 13:34 documented in this encounter Plan of Treatment Upcoming Encounters Date Type Department Care Team (Late st Contact Info) Description 12/17/2024 13:00 EDT Office Visit [facility] Dermatology [address] [facility] [place], [place], [place] [id number] Maci Rand MD 111 [facility], [facility] 5 [place] [address] documented as of this encounter Visit Diagnoses Diagnosis Actinic keratoses- Primary Actinic keratosis Allergic reaction to adhesive Stoma dermatitis Contact dermatitis and other eczema, due to unspecified cause Actinic skin damage Other dermatitis due to solar radiation documented in this encounter Discontinued Medications Medication Sig Discontinue Reason Start Date End Da te ibuprofen (MOTRIN) 200 mg tablet Take 600 mg by mouth every 6 hours as needed for Pain. Taking 600 mg BID 12/12/2023 gabapentin (NEURONTIN) 100 mg capsule TAKE THREE CAPSULES BY MOUTH TWICE A DAY 03/02/2020 12/12/2023 methotrexate 2.5 mg tabletIndications:Ser onegative rheumatoid arthritis of multiple sites (HCC-CMS) TAKE 8 TABLETS BY MOUTH ONCE A WEEK (4 TABLETS IN THE MORNING AND 4 TABLETS IN THE EVENING) 04/29/2020 12/12/2023 triamcinolone (KENALOG) 0.1 % creamIndications:Rash and other nonspecific skin eruption Apply topically to affected area 2 times daily. For rash on shoulder for 2 weeks. Do not apply to face, armpit or groin. 05/18/2021 12/12/2023 dexAMETHasone (DECADRON) 4 mg/mL injection 1 mL by other route once for 1 dose. Use at with Iontophoresis at physical therapy left heel. 11/24/2021 12/12/2023 metroNIDAZOLE (METROCREAM) 0.75 % creamIndications:Kimberly cea Apply topically to affected area 2 times daily. Use a thin layer to affected areas after washing 12/06/2022 12/12/2023 ketoconazole (NIZORAL) 2 % creamIndications:Sebo rrheic dermatitis,Intertrigo Apply topically to affected area daily. For skin folds daily when flaring, then 2-3 times per week maintenance 12/06/2022 12/12/2023 documented as of this encounter Historical Medications * This list may reflect changes made after this encounter. Medication Sig Dispensed Refills Start Date End Date nitroglycerin (NITROSTAT) 0.[address] 1 Tablet under the tongue PRE-OP Q 5 MINUTES. 07/16/2023 metoprolol SUCCinate (TOPROL-XL) 50 mg tablet Take 1 Tablet by mouth daily. 10/12/2023 clopidogreL (PLAVIX) 75 mg tablet Take 1 Tablet by mouth daily. 07/16/2023 added in this encounter Care Teams Stone Unloader Relationship Specialty Start Date End Date Latha Aguirre MD [address] [place] [address] [address] [address] PCP - General Family Medicine - Primary Care 12/06/22 documented as of this encounter
--- OUTSIDE RECORDS SUMMARY | 2024-03-27 20:56 | XMS_ITS | Encounter Summary ---
Author Organization [facility] Address [address] [place] [address] Care Team Providers Care Medical Equipment Repairer Name Role Phone Nathalie Bain MD Primary Care Provider [phone] Encounter Details Date Type Department Care Team (Late st Contact Info) Description 10/15/2019 Orders Only [facility] Rheumatology [address] [place] [address] Gris Cazares RN Social History Tobacco Use Types Packs/Day [...] 2 tablets by mouth once a day 60 Tab 3 10/15/2019 02/13/2020 documented in this encounter Progress Notes * Gris Cazares RN - 10/15/2019 1041 EDT Refill sent ordered dosage of 2 mg a day. documented in this encounter Plan of Treatment Upcoming Encounters Date Type Department Care Team (Late st Contact Info) Description 12/17/2024 13:00 EDT Office Visit [facility] Dermatology [address] [place] [address] Maci Rand MD 111 [facility] 5 [place] [phone] documented as of this encounter Visit Diagnoses Not on filedocumented in this encounter Care Teams Medical Equipment Repairer Relationship Specialty Start Date End Date Nathalie Bain MD [address] [place] [phone] PCP - General 09/10/19 12/05/22 documented as of this encounter
--- OUTSIDE RECORDS SUMMARY | 2024-03-27 20:56 | XMS_ITS | Encounter Summary ---
Author Organization [facility] Address [address] [place] [address] Care Team Providers Care Associate Professor Computer Science Name Role Phone Nathalie Bain MD Primary Care Provider [phone] Reason for Visit * Reason Onset Date Comments Update 09/11/2019 Encounter Details Date Type Department Care Team (Late st Contact Info) Description 09/11/2019 Telephone [facility] [place] [address] [place] [address] Pasha Wood MD [facility] Rheumatology [address] [place] [address] [place] [address] Update Social History Tobacco Use Types Packs/Day Years Used Date Smoking Tobacco: Never Smokeless Tobacco: Never Sex and Gender Information Value Date Recorded Sex Assigned at Not on file Gender Identity Female 10/14/2021 11:22 EDT Sexual Orientation Not on file documented as of this encounter Miscellaneous Notes * Telephone Encounter - Jennifer Pitts RN - 09/11/2019 1443 EST Referral placed to [facility] PT. * Telephone Encounter - Jennifer Pitts RN - 09/11/2019 1355 EST Forwarding the name of the PT Pat would like to go to. I can place the referral. What is the PT for? * Telephone Encounter - Katty Campos - 09/11/2019 1334 EST She like her PT referral sent to [facility][1] PT in [place] [phone] documented in this encounter Plan of Treatment Upcoming Encounters Date Type Department Care Team (Late st Contact Info) Description 12/17/2024 13:00 EDT Office Visit [facility] Dermatology [address] [facility], [place] [address] Maci Rand MD 111 [facility], [facility], Level [address] [place] [address] documented as of this encounter Visit Diagnoses Diagnosis Inflammatory arthritis- Primary Unspecified inflammatory polyarthropathy documented in this encounter Care Teams Associate Professor Computer Science Relationship Specialty Start Date End Date Nathalie Bain MD [address] [place] [address] PCP - General 09/10/19 12/05/22 documented as of this encounter
--- OUTSIDE RECORDS SUMMARY | 2024-03-27 20:56 | XMS_ITS | Encounter Summary ---
Author Organization [facility] Address [address] [place] [address] Care Team Providers Care Sugar Sampler Name Role Phone Nathalie Bain MD Primary Care Provider [phone] Reason for Visit * Reason Comments Follow-up SNRA; feeling well n ow; hands not hurting. Encounter Details Date Type Department Care Team (Late st Contact Info) Description 12/02/2019 13:30 EDT Telemedicine [facility] Rheumatology [address] [place] [address] Pasha Wood MD [facility] Rheumatology [address] [place] [address] [place] [phone] Seronegative rheumatoid arthritis ([facility]) (Primary Dx); Vitamin D deficiency Social History Tobacco Use Types Packs/Day Years [...] - - Temperature - - Respiratory Rate - - Oxygen Saturation - - Inhaled Oxygen Concentration - - Weight 97.1 kg (214 lb) 12/02/2019 0840 EDT Height 158.8 cm (5' 2.5) 12/02/2019 0840 EDT Body Mass Index 38.52 12/02/2019 0840 EDT documented in this encounter Patient Instructions * Patient Instructions* Pasha Wood MD - 12/02/2019 13:30 EDT Continue methotrexate 20 mg weekly. Continue prednisone 2 mg daily. Continue folic acid 1 mg daily documented in this encounter Progress Notes * Pasha Wood MD - 12/02/2019 1330 EDT [facility] Rheumatology Chief Complaint Patient presents with ??? Follow-up SNRA; feeling well now; hands not hurting. This is a telemedicine visit that was performed with the originating site at that patients home address (please see electronic health record for applicable address) and the distant site at my home office. Verbal consent to participate in ZOOM video visit was obtained by Pasha Wood MD or the rooming anesthesia assistant as documented in their note. This [...] by Dr. Dharmesh Cummings who was a mine expert emeritus at [employer] [facility] [place] [employer]. He confirmed the diagnosis of polymyalgia [...] mg tablet aspirin chewable 81 mg tablet [id number] (CALTRATE 600-D PLUS MINERALS) 600 mg calcium- 800 unit-50 mg tablet cholecalciferol, Vitamin D3, 1,000 unit tablet DULoxetine (CYMBALTA) 60 mg capsule gabapentin (NEURONTIN) 100 mg capsule hydroCHLOROthiazide (HYDRODIURIL) 12.5 mg tablet hydrocortisone 1 % ointment hydroxychloroquine (PLAQUENIL) 200 mg tablet levothyroxine (SYNTHROID) 125 mcg tablet losartan (COZAAR) 100 mg tablet methotrexate 2.5 mg tablet metroNIDAZOLE (METROCREAM) 0.75 % cream fknhbmak-vgnl-LV-calcium-mins (ONE-A-DAY WOMENS FORMULA) 18 mg iron-400 mcg-500 mg Ca tablet pimecrolimus (ELIDEL) 1 % cream predniSONE (DELTASONE) 1 mg tablet No current facility-administered medications for this visit. Allergies include: Atorvastatin and Fentanyl Review of Systems: Had PA for Remicade yet did not start this. She is concerned about the risk of developing malignancy. She previously used Remicade for inflammatory bowel disease. Overall she is doing very well. She is very busy. 3 grandchildren living with her now due to the virus. They have been with her for approximately 7 weeks. Now her son is with them as well. Good energy. Cooking and doing laundry. 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 HEENT: No mouth sores. No facial rash. Hydroxychloroquine stopped due to hair thinning Hands are doing better. Less swelling and stiffness. Walking better No chest pain or palpitations. No rashes. No cardiorespiratory sxs. No GI sxs. Physical Examination: Ht 158.8 cm (62.5) Wt 97.1 kg (214 lb) BMI 38.52 kg/m?? Pain score 0/10 ?General appearance and movement: alert, nontoxic; deconditioned [...] Protein, External 08/26/2019 6.9 ??? Bilirubin, Total, Adjuster* 08/26/2019 0.4 ??? WBC, External 08/26/2019 6.45 [...] Basophils, External 08/26/2019 0.03 ??? Sed. Rate Jordan, Ex* 08/26/2019 20 Diagnosis / Assessment: 1. Seronegative rheumatoid arthritis ([facility]) Musculoskeletal symptoms are currently well controlled on methotrexate 20 mg weekly and prednisone 2 mg daily. We have tried to taper off prednisone unsuccessfully. Hydroxychloroquine was added as a possible medication to allow her to get off of prednisone. Unfortunately this resulted in hair thinning. She is due for methotrexate monitoring labs. Last due 2019. Due to concerns about coronavirus she would like to push off a couple weeks gettingthese labs done. I recommended that we get these done within a 1 month. 2. Vitamin D deficiency she will continue her vitamin D supplementation and her multivitamin. I recommended dietary calcium. Recommendations/Evaluation: Total ikcu-oz-rkmu time: 25 minutes, >50% spent counseling on above issues. Pasha Wood MD documented in this encounter Plan of Treatment Upcoming Encounters Date Type Department Care Team (Late st Contact Info) Description 12/17/2024 13:00 EDT Office Visit [facility] Dermatology 130 [facility], [place] [address] Maci Rand MD 111 [facility], [facility] 5 [place] [phone] documented as of this encounter Visit Diagnoses Diagnosis Seronegative rheumatoid arthritis ([facility])- Primary Rheumatoid arthritis Vitamin D deficiency Unspecified vitamin D deficiency documented in this encounter Discontinued Medications Medication Sig Discontinue Reason Start Date End Da te doxycycline (VIBRA-TABS) 100 mg tabletIndications:Radha orificial dermatitis Take 1 Tab by mouth 2 times daily. May cause upset stomach or photosensitivity. Therapy completed 08/19/2019 12/02/2019 predniSONE (DELTASONE) 1 mg tablet TAKE THREE TABLETS BY MOUTH EVERY DAY AND TAPER DOWN TO TAKE ONE TABLET BY MOUTH EVERY DAY DIRECTED AT LAST APPOINTMENT Therapy completed 07/14/2019 12/02/2019 documented as of this encounter Care Teams Sugar Sampler Relationship Specialty Start Date End Date Nathalie Bain MD [address] [place] [address] [address] [place] [address] PCP - General 09/10/19 12/05/22 documented as of this encounter
--- OUTSIDE RECORDS SUMMARY | 2024-03-27 20:56 | XMS_ITS | Encounter Summary ---
Author Organization [facility] Address [address] [place] [address] Care Team Providers Care Unarmed Security Guard Name Role Phone Nathalie Bain MD Primary Care Provider [phone] Encounter Details Date Type Department Care Team (Late st Contact Info) Description 02/02/2020 Orders Only [facility] Rheumatology [address] [place] [id number] Gris Cazares, RN Social History Tobacco Use Types Packs/Day [...] IN THE EVENING) 96 Tab 1 02/02/2020 04/29/2020 documented in this encounter Plan of Treatment Upcoming Encounters Date Type Department Care Team (Late st Contact Info) Description 12/17/2024 13:00 EDT Office Visit [facility] Dermatology [address] [facility], [place], [place] [address] Maci Rand MD 111 [facility], [facility] 5 [place] [address] documented as of this encounter Visit Diagnoses Not on filedocumented in this encounter Discontinued Medications Medication Sig Discontinue Reason Start Date End Da te methotrexate 2.5 mg tablet TAKE 8 TABLETS BY MOUTH ONCE A WEEK (4 TABLETS IN THE MORNING AND 4 TABLETS IN THE EVENING) Reorder 02/02/2020 02/02/2020 documented as of this encounter Care Teams Unarmed Security Guard Relationship Specialty Start Date End Date Nathalie Bain MD [address] [place] [address] PCP - General 09/10/19 12/05/22 documented as of this encounter
--- OUTSIDE RECORDS SUMMARY | 2024-03-27 20:56 | XMS_ITS | Encounter Summary ---
Author Organization [facility] Address [address] [place] [address] Care Team Providers Care Supervisor Beehive Kiln Name Role Phone Nathalie Bain MD Primary Care Provider [phone] Encounter Details Date Type Department Care Team (Latest Contact Info) Description 08/12/2020 Travel Social History Tobacco Use Types Packs/Day [...] 10:31 EST documented as of this encounter Functional [...] Description 12/17/2024 13:[address] [facility] [place] [address] [facility], [place] [address] Maci Rand MD 111 [facility], [address] [place] [address] documented as of this encounter Visit Diagnoses Not on filedocumented in this encounter Care Teams Supervisor Beehive Kiln Relationship Specialty Start Date End Date Nathalie Bain MD [address] [place] [address] [address] [place] [address] PCP - General 09/10/19 12/05/22 documented as of this encounter
--- OUTSIDE RECORDS SUMMARY | 2024-03-27 20:56 | XMS_ITS | Encounter Summary ---
Author Organization [facility] Address [address] [place] [address] Care Team Providers Care Office Services Coordinator Name Role Phone Unknown, Provider Primary Care Provider [phone] Reason for Visit * Reason Onset Date Comments Medication Problem 08/21/2019 Encounter Details Date Type Department Care Team (Late st Contact Info) Description 08/21/2019 Telephone [facility] Dermatology [address] [place] [address] Maci Rand MD 111 [facility], [address] [place] [address] Medication Problem Social History Tobacco Use Types Packs/Day Years Used Date Smoking Tobacco: Never Smokeless Tobacco: Never Sex and Gender Information Value Date Recorded Sex Assigned at Not on file Gender Identity Female 10/14/2021 11:22 EDT Sexual Orientation Not on file documented as of this encounter Ordered Prescriptions Prescription Sig Dispensed Refills Start Date End Da te pimecrolimus (ELIDEL) 1 % creamIndications:Periori ficial dermatitis Apply topically to affected area 2 times daily. Do not use for more than 6 wks at a time. Use on skin around eyes. 30 g 3 08/21/2019 04/29/2020 documented in this encounter Miscellaneous Notes * Addendum Note - Jason Barnes RN - 08/22/2019 0910 ESTAddended by: JASON BARNES on: 08/22/2019 09:10 Modules accepted: Orders * Telephone Encounter - Jason Barnes RN - 08/22/2019 0908 EST Spoke with patient and relayed switch from protopic to Elidel cream to be applied twice daily around eyes for no more than six weeks. Patient voiced understanding stating that picked up medication yesterday and she has started the treatment. * Telephone Encounter - Elina Webber - 08/21/2019 1440 EST Pt calls back stating that her pharmacy called around and they were not able to locate the meds anywhere and she wanted to let you know. * Telephone Encounter - Jason Barnes RN - 08/21/2019 1335 EST Spoke with patient who reports that pharmacy is unable to get medication Protopic as it's on back order. They told her they would check with some other pharmacies but they have not gotten back to her. Plan for me to check with provider as she calls the pharmacy to check on status. * Telephone Encounter - Elina Webber - 08/21/2019 1326 EST Pt calls in and states that the medication that Dr Rand prescribed is not available at her pharmacy and they are having a hard time getting it. She would like a call to discuss. documented in this encounter Plan of Treatment Upcoming Encounters Date Type Department Care Team (Late st Contact Info) Description 12/17/2024 13:00 EDT Office Visit [facility] Dermatology [address] [facility], [place] [address] Maci Rand MD [address] [place] [address] 5 [place] [address] documented as of this encounter Visit Diagnoses Diagnosis Periorificial dermatitis- Primary Rosacea documented in this encounter Discontinued Medications Medication Sig Discontinue Reason Start Date End Da te tacrolimus (PROTOPIC) 0.03 % ointmentIndications:Per iorificial dermatitis Apply topically to affected area 2 times daily. . Do not use for more than 6 wks at a time. Use around eyes Alternate therapy 08/19/2019 08/22/2019 documented as of this encounter Care Teams Office Services Coordinator Relationship Specialty Start Date End Date Unknown, Provider, PCP - General 08/16/09 09/09/19 documented as of this encounter
--- OUTSIDE RECORDS SUMMARY | 2024-03-27 20:56 | XMS_ITS | Encounter Summary ---
Author Organization [facility] Address [address] [place] [address] Care Team Providers Care Gluer Machine Setup Operator Name Role Phone Nathalie Bain MD Primary Care Provider [phone] Latha Aguirre MD Primary Care Provider Unavailable Reason for Visit * Reason Comments Other Encounter Details Date Type Department Care Team (Late st Contact Info) Description 10/15/2019 Refill [facility] Rheumatology [address] [place] [address] Pasha Wood MD [facility] Rheumatology [address] [place] [address] [place] [phone] Other Social History Tobacco Use Types Packs/Day Years Used Date Smoking Tobacco: Never Smokeless Tobacco: Never Sex and Gender Information Value Date Recorded Sex Assigned at Not on file Gender Identity Female 10/14/2021 11:22 EDT Sexual Orientation Not on file documented as of this encounter Miscellaneous Notes * Telephone Encounter - Gris Cazares RN - 10/15/2019 1043 EDT Refill sent with correct dosage of 2 mg a day as ordered. * Telephone Encounter - Gris Cazares RN - 10/15/2019 0854 EDT Called pt.She states that she went back to 2 mg a day because of pain. Please advise on sig and # tablets and duration, Thank you documented in this encounter Plan of Treatment Upcoming Encounters Date Type Department Care Team (Late st Contact Info) Description 12/17/2024 13:00 EDT Office Visit [facility] Dermatology [address] [facility], [place] [address] Maci Rand MD [address] [place] [address] [address] [place] [phone] documented as of this encounter Visit Diagnoses Not on filedocumented in this encounter Additional Health Concerns Infection Onset Date Last Indicated Resolved Time COVID-19 11/02/2020 11/02/2020 12/02/2020 22:1 5 EDT documented as of this encounter Care Teams Gluer Machine Setup Operator Relationship Specialty Start Date End Date Nathalie Bain MD [address] [place] [address] PCP - General 09/10/19 12/05/22 Latha Aguirre MD [address] [place] [address] PCP - General Family Medicine - Primary Care 12/06/22 documented as of this encounter
--- OUTSIDE RECORDS SUMMARY | 2024-03-27 20:56 | XMS_ITS | Encounter Summary ---
Author Organization [facility] Address [address] [place] [address] Care Team Providers Care Sausage Meat Trimmer Name Role Phone Nathalie Bain MD Primary Care Provider [phone] Latha Aguirre MD Primary Care Provider Unavailable Reason for Visit * Reason Comments Other Encounter Details Date Type Department Care Team (Late st Contact Info) Description 10/18/[address] [facility] Dermatology [address] [place] [phone] Maci Rand MD [address] [place] [phone] Other Social History Tobacco Use Types [...] Description 12/17/2024 13:[address] [facility] Dermatology [address] [place] [phone] Maci Rand MD [address] [place] [phone] documented as of this encounter Visit Diagnoses Diagnosis Periorificial dermatitis Rosacea documented in this encounter Additional Health Concerns Infection Onset Date Last Indicated Resolved Time COVID-19 11/02/2020 11/02/2020 12/02/2020 22:1 5 EDT documented as of this encounter Care Teams Sausage Meat Trimmer Relationship Specialty Start Date End Date Nathalie Bain MD [address] [place] [phone] PCP - General 09/10/19 12/05/22 Latha Aguirre MD [address] [place] [address] PCP - General Family Medicine - Primary Care 12/06/22 documented as of this encounter
--- OUTSIDE RECORDS SUMMARY | 2024-03-27 20:56 | XMS_ITS | Encounter Summary ---
Author Organization [facility] Address [address] [place] [address] Care Team Providers Care Castings Trimmer Name Role Phone Nathalie Bain MD Primary Care Provider [phone] Encounter Details Date Type Department Care Team (Late st Contact Info) Description 01/08/2020 Abstract [facility] Rheumatology [address] [place] [address] Pasha Wood MD [facility] Rheumatology [address] [place] [address] [place] [address] Social History Tobacco Use Types Packs/Day Years [...] Info) Description 12/17/2024 13:00 EDT Office Visit [facility] Dermatology [address] [facility], [place] [address] Maci Rand MD [address] [facility] [address] [place] [address] documented as of this encounter Procedures Procedure Name Priority Date/Time Associated Diagnosis Comments VITAMIN D (25,OH) Routine 01/01/2020 SED RATE Routine 01/01/2020 COMPLETE BLOOD COUNT AND DIFFERENTIAL Routine 01/01/2020 C REACTIVE PROTEIN Routine 01/01/2020 COMPREHENSIVE METABOLIC PANEL (CMP) Routine 01/01/2020 documented in this encounter Results * SED. RATE:CADEREN (01/01/2020) Pathologist [facility] Sed. Rate W[place]gren, External 20 0 - 30 [facility] Blood VENOUS BLOOD / Unknown 01/01/2020 Historical Provider HEMATOLOGY & PF4 ORDERABLES [facility] * (ABNORMAL) COMPLETE BLOOD COUNT AND DIFFERENTIAL (01/01/2020) [facility] WBC, External 7.97 4.4 - 10.8 [facility] RBC, External 4.24 4.00 - 5.20 [facility] Hemoglobin, External 13.7 12.0 - 15.5 [facility] HCT, External 42.1 36.0 - 46.0 [facility] MCV, External 99.3(A) 80 - 95 [facility] MCH, External 32.3 27.0 - 33.0 [facility] MCHC, External 32.5 32.0 - 36.0 [facility] PLT, External 478(A) 130 - 400 [facility] RDW-CV, External 15.4(A) 11.7 - 14.6 [facility] Neutrophils, External 77.2 [facility] Lymphocytes, External 14.8 [facility] Monocytes, External 5.4 [facility] Eosinophils, External 1.9 [facility] Basophils, External 0.4 [facility] ABS Neutrophils, External 6.16 1.2 - 6.7 [facility] ABS Lymphs, External 1.18(A) 1.2 - 3.4 [facility] ABS Monocytes, External 0.43 0.11 - 0.7 [facility] ABS Eosinophils, External 0.15 0.0 - 0.7 [facility] ABS Basophils, External 0.03 0.0 - 0.2 [facility] Blood VENOUS BLOOD / Unknown 01/01/2020 Historical Provider PACKAGES & DNA TN OBE ORDERABLES Performing Organization Address [facility] Co de Phone Number [facility] * (ABNORMAL) C REACTIVE PROTEIN (01/01/2020) Pathologist [facility] C-Reactive Protein, External 0.95(A) 0.0 - 0.3 [facility] Blood VENOUS BLOOD / Unknown 01/01/2020 Historical Provider CHEMISTRY & BLOOD GAS ORDERABLES Performing Organization Address [facility] Co de Phone Number [facility] * (ABNORMAL) COMPREHENSIVE METABOLIC PANEL (CMP) (01/01/2020) Pathologist [facility] GFR, Calculated, External 60 [facility] Glucose, Serum, External 95 74 - 106 [facility] Albumin, External 3.7 3.4 - 5.0 [facility] Total Alkaline Phosphatase, External 80 46 - 116 [facility] ALT, External 39 14 - 59 [facility] AST, External 28 15 - 37 [facility] BUN, External 13 7 - 18 [facility] Calculated Calcium, External [facility] Calcium, External 9.9 8.5 - 10.1 [facility] Chloride, External 103 98 - 107 [facility] CO2, External 34.3(A) 21.0 - 32.0 [facility] Creatinine, External 0.64 0.55 - 1.02 [facility] Fasting?, External [facility] Potassium, External 3.6 3.5 - 5.1 [facility] Sodium, External 141 136 - 145 [facility] Total Protein, External 7.2 6.4 - 8.2 [facility] Bilirubin, Total, External 0.6 0.2 - 1.0 [facility] Blood VENOUS BLOOD / Unknown 01/01/2020 Historical Provider CHEMISTRY & BLOOD GAS ORDERABLES [facility] * (ABNORMAL) VITAMIN D (25,OH) (01/01/2020) 25OH Vitamin D Tot, External 22.2(A) 30 - 100 [facility] Blood VENOUS BLOOD / Unknown 01/01/2020 Historical Provider CHEMISTRY & BLOOD GAS ORDERABLES Performing Organization Address City/[facility]/ZIP Co de Phone Number [facility] documented in this encounter Visit Diagnoses Not on filedocumented in this encounter Care Teams Castings Trimmer Relationship Specialty Start Date End Date Nathalie Bain MD [address] [place] [phone] PCP - General 09/10/19 12/05/22 documented as of this encounter
--- OUTSIDE RECORDS SUMMARY | 2024-03-27 20:56 | XMS_ITS | Encounter Summary ---
Author Organization [facility] Address [address] [place] [address] Care Team Providers Care Virtual Assistant Name Role Phone Nathalie Bain MD Primary Care Provider [phone] Reason for Visit * Reason Comments Follow-up FBSE. Patient kimmy t list of questions and concerns. Encounter Details Date Type Department Care Team (Late st Contact Info) Description 05/18/2021 10:30 EDT Office Visit [facility] [address] [facility], [place] [address] Maci Rand MD [address] [facility] [place] [address] Actinic keratoses (Primary Dx); Seborrheic keratoses, inflamed; Rash and other nonspecific skin eruption; Intertrigo; Rosacea; Tinea pedis of both feet; Xerosis cutis; Actinic skin damage Social History [...] Instructions * Patient Instructions* Karli Sandoval - 05/18/2021 10:30 EDT - Recommend regular and liberal moisturizing, at least once daily and after showering. I like CeraVe creams and ointments. For itch of the right shoulder: - Apply triamcinolone cream to affected area twice a day for up to 2 weeks as needed. For rash of the skin folds: - When flaring, apply ketocoanzole cream daily for 1-2 weeks. For maintenance, continue using ketoconazole cream 2-3 times per week. - When itchy, can also use triamcinolone cream in skin folds as well. - Try to keep area as dry as possible. Can try zeasorb powder. For feet: - Can try Lamisil (terbinafine) or Lotrimin Ultra (butenafine). Apply to the full foot, including between the toes, twice a day for 2 weeks. 3M??? Cavilon??? No Sting Barrier Film [place] WOUND CARE INSTRUCTIONS FOR CRYOSURGERY (FREEZING THERAPY) [...] . CONTACT THE OFFICE IF YOU EXPERIENCE: ?? increasing redness ?? warmth to touch ?? increasing pain ?? drainage with a foul odor ?? rapid swelling of the wound ?? fever or chills It was a pleasure taking care of you today. Please call our office if you have any concerns or questions. documented in this encounter Ordered Prescriptions Prescription Sig Dispensed Refills Start Date End Da te metroNIDAZOLE (METROCREAM) 0.75 % creamIndications:Rosace a Apply topically to affected area 2 times daily. Use a thin layer to affected areas after washing 45 g 11 05/18/2021 07/13/2022 triamcinolone (KENALOG) 0.1 % creamIndications:Rash and other nonspecific skin eruption Apply topically to affected area 2 times daily. For rash on shoulder for 2 weeks. Do not apply to face, armpit or groin. 60 g 3 05/18/2021 12/12/2023 ketoconazole (NIZORAL) 2 % creamIndications:Intert fermin Apply topically to affected area daily. For skin folds daily when flaring, then 2-3 times per week maintenance 60 g 11 05/18/2021 12/06/2022 documented in this encounter Progress Notes * Karli Sandoval - 05/18/2021 1030 EDT Dermatology Outpatient Visit Note Chief Complaint Patient presents with ??? Follow-up FBSE. Patient brought list of questions and concerns. Dermatologic History: 1. Periorificial dermatitis - doxycycline taper x 12 weeks, 100 mg BID highest dose - metrocream, protopic ointment 2. Xerosis cutis Last Dermatology office visit: July 2019 MAGGI Katz is a 70 y.o. adult who presents for an evaluation and treatment for a skin exam with several cutaneous concerns. They report several scattered rough spots on their back, occasionallyitchy. Not currently bothersome. Next, they note very dry skin. Applies baby oil on their skin after showering. Additionally, they note an itchy rash of their right shoulder. Was treating pain of theright shouder with salonpas until 2 days ago when rash appeared. Now using OTC cortisone cream. Hydrocortisone seems to have a positive effect on itch. When asked, they note an occasionally rash of the skin folds. Mildly irritated. Treats with cortisone cream when flaring, which has a positive effect. They note a rough patch on their right cheek, present over a year. Not bothersome. Also notes chapped skin of the lips, doesn't seem to clear. When asked about a brown patch on their right neck, they report it has been present for many years without change. Notes some difficulty visualizing area. Last, they note redness and pimples on the face are under They are otherwise feeling well and has no other cutaneous concerns today. They deny any other new,changing, bleeding, tender, or non-healing skin lesions today. Page Katz has a current medication list which includes the following prescription(s): acetaminophen, aspirin chewable, cholecalciferol (vitamin d3), duloxetine, duloxetine, gabapentin, hydrochlorothiazide, ibuprofen, levothyroxine, losartan, methotrexate, glcgedpj-ysrq-rm-calcium-mins, and p rednisone. Page Katz is allergic to atorvastatin and fentanyl. OBJECTIVE VS: There were no vitals taken for this visit. Sterling is healthy, well developed, well-nourished, in no acute distress, alert and interactive adult sitting on the examination table with a normal affect. Page Katz is alert and oriented to person, place and time. Page Katz has Dong type I skin. Cutaneous full body examination including the hair, scalp, face, eyelids, lips, neck, chest, back, abdomen, all four extremities,hands, feet, digits and nails was performed.The examination was notable for: Declined genitalia exam - left chest, left forearm x 3, right lower cheek: pink gritty papules - back x 5: stuck on brown waxy papules - right shoulder/upper arm: eczematous excoriated thin plaque - inframammary and abdominal folds: moist macerated pink patches - face: matted telangiectasias, no papules or pustules today - right abdomin: stoma with overlying ostomy bag - bilateral feet, right > left: interdigital maceration - xerosis - right neck: 1.8x1.6 cm bland cortez patch with focal darker pigment - diffuse actinic injury and bland cortez macules in photo-distribution ASSESSMENT/PLAN 1. Actinic keratoses left chest, left forearm x 3, right lower cheek Given the risk for actinic keratoses to progress to squamous cell carcinomas, recommend treatment with liquid nitrogen cryosurgery today. Patient agrees with this plan. The expected reaction and healing course were discussed (blistering or scabbing reaction), as well as possibility of incomplete resolution and/or permanent dyspigmentation. Page Katz will return if lesion fails to fully resolve. 2. Seborrheic keratoses, inflamed The benign nature of the patient's lesions was discussed. No intervention is needed unless they become symptomatic and the patient was reassured today. Given irritated and symptomatic nature, recommended treatment with liquid nitrogen cryotherapy today. Patient agrees with plan. See procedure note below. 3. Rash and other nonspecific skin eruption - irritant vs allergic contact of right shoulder and ostomy site - For rash on arm, triamcinolone BID for up to 2 weeks - For irritation around stoma, recommend OTC 3M palvalon barrier spray 4. Intertrigo - chronic nature discussed - When flaring, apply ketocoanzole cream daily for 1-2 weeks. For maintenance, continue using ketoconazole cream 2-3 times per week. - When itchy, can also use triamcinolone cream in skin folds as well. - Try to keep area as dry as possible. Can try zeasorb powder. 5. Rosacea - metroNIDAZOLE (METROCREAM) 0.75 % cream; Apply topically to affected area 2 times daily. Use a thin layer to affected areas after washing Dispense: 45 g; Refill: 11 6. Tinea pedis of both feet Patient education provided for diagnosis of tinea. Explained that tinea is a condition in which fungal elements attach and invade the skin and at times the nails. The fungi are ubiquitous in the environment but have become pathogenic in this patient. Treatment is with topical antifungals generally though in some cases necessitates oral therapy for complete clearance especially with involvement ofhair follicles or nails. - Recommended OTC butenafine or OTC terbinafine cream BID 7. Xerosis cutis - Recommend regular and liberal moisturizing, at least once daily and after showering. I like CeraVe creams and ointments 8. Actinic skin damage The nature of sun-induced photo-aging and skin cancers is discussed. Sun avoidance, protective clothing, and the use of OTC broad spectrum 50+-SPF sunscreens with both UVA and UVB coverage is advised. Observe closely for skin damage/changes, and call if such occurs. Med Orders Placed This Visit and Additions to the Medication List Medications ??? ketoconazole (NIZORAL) 2 % cream Sig: Apply topically to affected area daily. For skin folds daily when flaring, then 2-3 times per week maintenance Dispense: 60 g Refill: 11 ??? triamcinolone (KENALOG) 0.1 % cream Sig: Apply topically to affected area 2 times daily. For rash on shoulder for 2 weeks. Do not applyto face, armpit or groin. Dispense: 60 g Refill: 3 ??? metroNIDAZOLE (METROCREAM) 0.75 % cream Sig: Apply topically to affected area 2 times daily. Use a thin layer to affected areas after washing Dispense: 45 g Refill: 11 CRYOSURGERY PROCEDURE NOTE PATIENT INFORMATION: Page Katz : MRN: [id number] PROVIDER: Maci Rand MD The indication, risks, benefits and alternatives to this procedure were discussed in detail with the patient and questions were answered. The below noted lesions were then destroyed with liquid nitrogen cryosurgery using two freeze-thaw cycles. The expected healing course was discussed, and it was noted that sometimes lesions do not fully resolve, and cryosurgery can cause a white spot or a scar.Verbal wound care instructions were given. SITE/LESION TYPE/DIAGNOSIS: Lesion(s) A: Location: Left chest, left forearm x 3, right lower cheek Lesion Type/Diagnosis: 5 actinic keratosis(es) Lesion(s) B: Location: Back x 5 Lesion Type/Diagnosis: 5 seborrheic keratosis(es) Page Katz will Return in about 1 year (around 05/18/2022) for FBSE, hx AKs. Scribe Attestation By time stamping my name below, I attest that this documentation has been prepared under the direction and in the presence of the provider listed as the provider on this encounter. Karli Sandoval 05/17/2021 16:15 Provider Attestation By time stamping my name [...] is accurate and complete. Maci Rand MD 05/19/2021 21:43 * Leyda Lovelace MA - 05/18/2021 1030 EDT Review of Systems Constitutional: Negative for fatigue, fever and unexpected weight change. HENT: Negative for mouth sores. Eyes: Negative for pain. Respiratory: Negative for cough and shortness of breath. Cardiovascular: Negative for chest pain and palpitations. Gastrointestinal: Negative for abdominal pain, blood in stool, constipation, diarrhea, nausea and vomiting. Genitourinary: Negative for dysuria, frequency and hematuria. Musculoskeletal: Negative for myalgias, joint swelling and arthralgias. Skin: Negative for rash. Neurological: Negative for numbness and headaches. Endo/Heme/Allergies: Does not bruise/bleed easily. Psychiatric/Behavioral: Negative for sleep disturbance. The patient is not nervous/anxious. LEYDA LOVELACE MA 05/18/2021 10:31 documented in this encounter Plan of Treatment Upcoming Encounters Date Type Department Care Team (Late st Contact Info) Description 12/17/2024 13:00 EDT Office Visit [facility] Dermatology [address] [facility], [place] [address] Maci Rand MD [address] [facility], [facility] 5 [place] [phone] documented as of this encounter Visit Diagnoses Diagnosis Actinic keratoses- Primary Actinic keratosis Seborrheic keratoses, inflamed Rash and other nonspecific skin eruption Intertrigo Other specified erythematous condition Rosacea Tinea pedis of both feet Xerosis cutis Other specified disease of sebaceous glands Actinic skin damage Other dermatitis due to solar radiation documented in this encounter Historical Medications * This list may reflect changes made after this encounter. Medication Sig Dispensed Refills Start Date End Date BIOTIN ORAL Take 10,000 mcg by mouth daily. folic acid (FOLVITE) 1 mg tablet Take 800 mcg by mouth daily. added in this encounter Care Teams Virtual Assistant Relationship Specialty Start Date End Date Nathalie Bain MD [address] [place] [address] [address] [place] [phone] PCP - General 09/10/19 12/05/22 documented as of this encounter
--- OUTSIDE RECORDS SUMMARY | 2024-03-27 20:56 | XMS_ITS | Encounter Summary ---
Author Organization [facility] Address [address] [place] [id number] Care Team Providers Care Special Needs Child Caregiver Name Role Phone Latha Aguirre MD Primary Care Provider Unavailable Reason for Visit * Reason Comments Follow-up Skin Lesions Encounter Details Date Type Department Care Team (Late st Contact Info) Description 12/06/2022 13:40 EDT Office Visit [facility] [place] [address] [place] [address] Maci Rand MD [address] [facility], [address] [place] [address] Seborrheic keratoses, inflamed (Primary Dx); Rosacea; Seborrheic dermatitis; Actinic skin damage; Intertrigo Social History Tobacco Use Types Packs/Day Years [...] Instructions * Patient Instructions* Karli Sandoval - 12/06/2022 13:40 EDT - Can try CeraVe products for sunscreen, moisturizers, and cleansers. For flaking skin of face: - Can use ketoconazole cream in the area of the brows and around the nose daily when flaring, otherwise use 2-3 times per week as maintenance. For rosacea: - Continue treating central face with metrocream twice a day. WOUND CARE INSTRUCTIONS FOR CRYOSURGERY (FREEZING THERAPY) [...] if you have any concerns or questions. Follow these tips to protect your skin from the sun's damaging ultraviolet rays and reduce your risk of skin cancer: Seek shade when appropriate, remembering that the sun???s rays are strongest between 10 a.m. and 2 p.m. If your shadow is shorter than you are, seek shade. Wear protective clothing, such as a lightweight long-sleeved shirt, pants, a wide-brimmed hat and sunglasses, when possible. Generously apply a broad-spectrum, water-resistant sunscreen with an SPF of 30 or higher. Broad-spectrum sunscreen provides protection from both UVA and UVB rays. Use sunscreen whenever you are going to be outside, even on cloudy days. Apply enough sunscreen to cover all exposed skin. Most adults need about 1 ounce -- or enough to fill a shot glass -- to fully cover their body. Don???t forget to apply to the tops of your feet, your neck, your ears and the top of your head. If you are concerned about potential adverse effects of sunscreens, consider mineral-based agents that contain zinc or titanium oxide (these are generally a bit harder to fully rub in, but are typically quite effective and well tolerated) When outdoors, reapply sunscreen every two hours, or after swimming or sweating. Use extra caution near water, snow and sand, as they reflect the damaging rays of the sun, which can increase your chance of sunburn. Avoid tanning beds. Ultraviolet light from tanning beds can cause skin cancer and premature skin aging. Consider using a self-tanning product if you want to look cortez, but continue to take good sun protective measures (self tanners do not provide adequate protection from the sun's rays) -------- Perform regular skin self-exams to detect skin cancer early Seek evaluation for any new or suspicious spots on your skin, or anything changing, itching or bleeding. Remember the ABCDEs of melanoma: A is for Asymmetry One half of the spot is unlike the other half. B is for Border The spot has an irregular, scalloped, or poorly defined border. C is for Color The spot has varying colors from one area to the next, such as shades of cortez, brown or black, or areas of white, red, or blue. D is for Diameter Melanomas are usually greater than 6 millimeters (about the size of a pencil eraser) but they can be smaller. E is for Evolving The spot looks different from the rest of your moles, or is changing in size, shape, or color -------- For more information and helpful tips for many skin conditions: Visit https://www.aad.org/public documented in this encounter Ordered Prescriptions Prescription Sig Dispensed Refills Start Date End Da te ketoconazole (NIZORAL) 2 % creamIndications:Seborr heic dermatitis,Intertrigo Apply topically to affected area daily. For skin folds daily when flaring, then 2-3 times per week maintenance 60 g 11 12/06/2022 12/12/2023 metroNIDAZOLE (METROCREAM) 0.75 % creamIndications:Rosace a Apply topically to affected area 2 times daily. Use a thin layer to affected areas after washing 45 g 11 12/06/2022 12/12/2023 documented in this encounter Progress Notes * Sandoval Karli - 12/06/2022 1340 EDT Dermatology Outpatient Visit Note Chief Complaint Patient presents with ??? Follow-up Skin Lesions Dermatologic History: Hx AKs - cryotherapy SKs - cryotherapy Periorificial dermatitis - metrocream, Elidel cream - previously: doxycycline taper x 12 weeks Rash of right shoulder and ostomy site - irritant vs allergic contact - triamcinolone cream Intertrigo - ketoconazole cream, trimacinolone cream Rosacea - metrocream Tinea pedis Last Dermatology office visit: April 2021 SUBJECTIVE Ms. Katz is a 72 y.o. female who presents for follow up for a skin exam with several cutaneous concerns. She reports very occasional pimples of her central face. Treating with metrocream up to twice a day. Denies significant background redness. Next, she notes flaking of her brows and around her nose. Additionally, she notes an irritated raised spots of her right zoroastrian, left forehead, right arm, left wrist, and back. Denies rash of skin folds currently. Will treat with ketoconazole when it occasionally develops. Denies irritation at site of ostomy bag today. Denies itch, pain, or burning of the vulvar area. Would like to discuss recommendations for cleansers and moisturizers. OBJECTIVE VS: There were no vitals taken for this visit. Ms. Katz is female with Dong type I skin. Cutaneous full body examination excluding genitalia was performed. The examination was significant for the following: - right zoroastrian, left medial forehead, left wrist, right forearm, right upper arm: irritated waxy papule - back: few irritated stuck on waxy papules - glabella/meidal brows, alar creases: fine scale - nose: rare pink papules - diffuse actinic injury and bland cortez macules in photo-distribution ASSESSMENT/PLAN Irritated seborrheic keratoses of the right zoroastrian, left medial forehead, left wrist, right forearm, right upper arm, back x 6 - Benign, reassurance provided. - Given irritated and symptomatic nature, recommended treatment with liquid nitrogen cryotherapy today. Patient agrees with plan. See procedure note below. The patient tolerated the procedure well. Rosacea - Continue treating central face with metrocream twice a day. Seborrheic dermatitis - Can use ketoconazole cream in the area of the brows and around the nose daily when flaring, otherwise use 2-3 times per week as maintenance. Intertrigo - Apply ketoconazole cream to skin folds daily when flaring. Can continue to use 2-3 times per weekas maintenance. Actinic skin damage - Sun safety handout provided. Med Orders Placed This Visit and Additions to the Medication List Medications ??? metroNIDAZOLE (METROCREAM) 0.75 % cream Sig: Apply topically to affected area 2 times daily. Use a thin layer to affected areas after washing Dispense: 45 g Refill: 11 ??? ketoconazole (NIZORAL) 2 % cream Sig: Apply topically to affected area daily. For skin folds daily when flaring, then 2-3 times per week maintenance Dispense: 60 g Refill: 11 CRYOSURGERY PROCEDURE NOTE PATIENT INFORMATION: Page Katz : MRN: [id number] PROVIDER: Maci Rand MD The indication, risks, [...] were given. SITE/LESION TYPE/DIAGNOSIS: Lesion(s) A: Location: right zoroastrian, left medial forehead, left wrist, right forearm, right upper arm, back x 6 Lesion Type/Diagnosis: 11 irritated seborrheic keratosis(es) She will Return in about 1 year (around 12/07/2023) for FBSE, hx AKs. Scribe Attestation By time stamping my name below, I attest that this documentation has been prepared under the direction and in the presence of the provider listed as the provider on this encounter. Karli Sandoval 12/06/2022 14:31 Provider Attestation By time stamping my name [...] is accurate and complete. Maci Rand MD 12/06/2022 15:11 documented in this encounter Plan of Treatment Upcoming Encounters Date Type Department Care Team (Late st Contact Info) Description 12/17/2024 13:00 EDT Office Visit [facility] Dermatology [address] [facility], [place] [address] Maci Rand MD [address] [facility], [facility] 5 [place] [address] documented as of this encounter Visit Diagnoses Diagnosis Seborrheic keratoses, inflamed- Primary Rosacea Seborrheic dermatitis Seborrheic dermatitis, unspecified Actinic skin damage Other dermatitis due to solar radiation Intertrigo Other specified erythematous condition documented in this encounter Discontinued Medications Medication Sig Discontinue Reason Start Date End Da te ketoconazole (NIZORAL) 2 % creamIndications:Inter manuel Apply topically to affected area daily. For skin folds daily when flaring, then 2-3 times per week maintenance Reorder 05/18/2021 12/06/2022 metroNIDAZOLE (METROCREAM) 0.75 % creamIndications:Rosac ea Apply topically to affected area 2 times daily. Use a thin layer to affected areas after washing Reorder 07/13/2022 12/06/2022 documented as of this encounter Care Teams Special Needs Child Caregiver Relationship Specialty Start Date End Date Latha Aguirre MD [address] [place] [address] PKGOPAL QUIROZ [id number] PCP - General Family Medicine - Primary Care 12/06/22 documented as of this encounter
--- OUTSIDE RECORDS SUMMARY | 2024-03-27 20:56 | XMS_ITS | Encounter Summary ---
Author Organization [facility] Address [address] [place] [address] Care Team Providers Care Cra Name Role Phone Nathalie Bain MD Primary Care Provider [phone] Reason for Visit * Reason Onset Date Comments Other 11/24/2021 Encounter Details Date Type Department Care Team (Late st Contact Info) Description 11/24/2021 Telephone [facility] [place] [address] [place], [place] [id number] Shanti Zamora, [facility] [address] [facility] [address] [place] [address] Other Social History Tobacco Use Types Packs/Day [...] encounter Miscellaneous Notes * Telephone Encounter - Ben Medina MA - 11/24/2021 1634 EDT I called and left a message on Page's phone. I asked her to call us back so we could let her know the referral will be sent to [facility] and she will also have a prescription to pick and shovel man, but she might want to wait for the pharmacy to call her because there was a prior authorization that had to be done therefore it may not be ready. * Telephone Encounter - Ben Medina MA - 11/24/2021 1632 EDT Page called after her appointment to let us know the Physical Therapist she would like to use. I will place the referral and give her a call. documented in this encounter Plan of Treatment Upcoming Encounters Date Type Department Care Team (Late st Contact Info) Description 12/17/2024 13:00 EDT Office Visit [facility] Dermatology [address] [place] [address] Maci Rand MD [address] [place] [address], [facility] 5 [place] [address] documented as of this encounter Visit Diagnoses Not on filedocumented in this encounter Care Teams Cra Relationship Specialty Start Date End Date Nathalie Bain MD [address] [place] [address] [address] [place] [phone] PCP - General 09/10/19 12/05/22 documented as of this encounter
--- OUTSIDE RECORDS SUMMARY | 2024-03-27 20:56 | XMS_ITS | Encounter Summary ---
Author Organization [facility] Address [address] [place] [address] Care Team Providers Care Roving Technician Name Role Phone Nathalie Bain MD Primary Care Provider [phone] Reason for Visit * Reason Onset Date Comments Other 06/08/2020 Encounter Details Date Type Department Care Team (Late st Contact Info) Description 06/29/[address] [facility] [place]ry [address] [place] [address] Dayna Joseph RN Other Social History Tobacco Use Types Packs/Day [...] encounter Miscellaneous Notes * Telephone Encounter - Dayna Joseph RN - 06/29/2020 3372 EST Patient left message this morning that she was a patient of Dr. Govea and is having severe footpain. Both feet pain middle rays of foot x3 weeks after walking more. Patient [place] 1.5 hours awaybut will come to same day appointment if there is a cancellation. Sent to front staff to schedule next non-urgent Xuan spot. documented in this encounter Plan of Treatment Upcoming Encounters Date Type Department Care Team (Late st Contact Info) Description 12/17/2024 13:00 EDT Office Visit [facility] Dermatology [address] [facility], [place] [address] Maci Rand MD [address] [facility], [address] [place] [address] documented as of this encounter Visit Diagnoses Not on filedocumented in this encounter Care Teams Roving Technician Relationship Specialty Start Date End Date Nathalie Bain MD [address] [place] [address] [address] [place] [phone] PCP - General 09/10/19 12/05/22 documented as of this encounter
--- OUTSIDE RECORDS SUMMARY | 2024-03-27 20:56 | XMS_ITS | Encounter Summary ---
Author Organization [facility] Address [address] [place] [address] Care Team Providers Care Salvage Winder Name Role Phone Unknown, Provider Primary Care Provider Encounter Details Date Type Department Care Team (Late st Contact Info) Description 08/26/2019 Abstract [facility] Rheumatology [address] [place] [address] Pasha Wood MD [address] [place] [address] Social History Tobacco Use Types Packs/Day Years Used Date Smoking Tobacco: Never Smokeless Tobacco: Never Sex and Gender Information Value Date Recorded Sex Assigned at Not on file Gender Identity Female 10/14/2021 11:22 EDT Sexual Orientation Not on file documented as of this encounter Progress Notes * Gregorio Calderon - 08/26/2019 1552 EST Lab results entered into [employer] documented in this encounter Plan of Treatment Upcoming Encounters Date Type Department Care Team (Late st Contact Info) Description 12/17/2024 13:00 EDT Office Visit [facility] Dermatology [address] [facility], [place] [address] Maci Rand MD [address] [facility], [facility] 5 [place] [phone] documented as of this encounter Procedures Procedure Name Priority Date/Time Associated Diagnosis Comments SED RATE Routine 08/26/2019 COMPLETE BLOOD COUNT AND DIFFERENTIAL Routine 08/26/2019 C REACTIVE PROTEIN Routine 08/26/2019 COMPREHENSIVE METABOLIC PANEL (CMP) Routine 08/26/2019 documented in this encounter Results * SED. RATE:TOMIERGREN (08/26/2019) Sed. Rate Westergren, External 20 0 - 30 POINT [facility] CARE [facility] Blood VENOUS BLOOD / Unknown 08/26/2019 Pasha Wood MD HEMATOLOGY & PF4 ORD ERABLES POINT [facility] CARE [facility] * (ABNORMAL) COMPLETE BLOOD COUNT AND DIFFERENTIAL (08/26/2019) WBC, External 6.45 4.4 - 10.8 POINT OF CARE [facility] RBC, External 4.23 4.00 - 5.20 [facility] C[facility] Hemoglobin, External 13.5 12.0 - 15.5 POINT [facility] CARE [facility] HCT, External 42.1 36.0 - 46.0 POINT OF CARE [facility] MCV, External 99.5(A) 80 - 95 POINT OF CARE [facility] MCH, External 31.9 27.0 - 33.0 POINT OF CARE [facility] MCHC, External 32.1 32.0 - 36.0 POINT [facility] CARE [facility] PLT, External 412(A) 130 - 400 POINT [facility] CARE [facility] RDW-CV, External 15.4(A) 11.7 - 14.6 [facility]INT [facility] C[facility] Neutrophils, External 74.1 POINT [facility] C[facility] Lymphocytes, External 13.0 POINT [facility] C[facility] Monocytes, External 9.0 POINT [facility] C[facility] Eosinophils, External 3.1 POINT [facility] CARE [facility] Basophils, External 0.5 POINT [facility] CARE [facility] ABS Neutrophils, External 4.78 1.2 - 6.7 POINT OF CARE [facility] ABS Lymphs, External 0.84(A) 1.2 - 3.4 POINT OF CARE [facility] ABS Monocytes, External 0.58 0.11 - 0.7 POINT OF CARE [facility] ABS Eosinophils, External 0.20 0.0 - 0.7 POINT OF CARE [facility] ABS Basophils, External 0.03 0.0 - 0.2 POINT [facility] CARE [facility] Blood VENOUS BLOOD / Unknown 08/26/2019 Pasha Wood MD PACKAGES & DNA PROBE ORDERABLES POINT [facility] CARE [facility] * COMPREHENSIVE METABOLIC PANEL (CMP) (08/26/2019) GFR, Calculated, External >60 POINT [facility] C[facility] Glucose, Serum, External 89 74 - 106 POINT [facility] CARE [facility] Albumin, External 3.6 3.4 - 5.0 POINT [facility] C[facility] Total Alkaline Phosphatase, External 76 46 - 116 POINT [facility] C[facility] ALT, External 34 14 - 59 [facility]INT [facility] C[facility] AST, External 28 15 - 37 POINT [facility] C[facility] BUN, External 13 7 - 18 [facility]INT [facility] C[facility] Calculated Calcium, External POINT [facility] CARE [facility] Calcium, External 9.4 8.5 - 10.1 POINT [facility] C[facility] Chloride, External 107 98 - 107 POINT [facility] CARE [facility] CO2, External 29.4 21.0 - 32.0 POINT [facility] C[facility] Creatinine, External 0.62 0.55 - 1.02 POINT [facility] C[facility] Fasting?, External POINT [facility] C[facility] Potassium, External 3.9 3.5 - 5.1 POINT [facility] CARE [facility] Sodium, External 145 136 - 145 POINT [facility] CARE [facility] Total Protein, External 6.9 6.4 - 8.2 POINT OF CARE [facility] Bilirubin, Total, External 0.4 0.2 - 1.0 POINT OF CAR E [facility] Blood VENOUS BLOOD / Unknown 08/26/2019 Pasha Wood MD CHEMISTRY & BLOOD GA S ORDERABLES POINT [facility] CARE [facility] * (ABNORMAL) C REACTIVE PROTEIN (08/26/2019) C-Reactive Protein, External 0.65(A) 0.0 - 0.3 POINT OF CARE [facility] Blood VENOUS BLOOD / Unknown 08/26/2019 Pasha Wood MD CHEMISTRY & BLOOD GA S ORDERABLES POINT [facility]ARE [facility] documented in this encounter Visit Diagnoses Not on filedocumented in this encounter Care Teams Salvage Winder Relationship Specialty Start Date End Date Unknown, Provider, PCP - General 08/16/09 09/09/19 documented as of this encounter
--- OUTSIDE RECORDS SUMMARY | 2024-03-27 20:57 | XMS_ITS | Encounter Summary ---
Author Organization [facility] Address [address] [place] [address] Care Team Providers Care Assembler Motor Vehicle Name Role Phone Unknown, Provider Primary Care Provider Encounter Details Date Type Department Care Team (Late st Contact Info) Description 02/15/2017 Historical Results Only [facility] [place] [phone] Pasha Wood MD [address] [place] [address] Social History Tobacco Use Types Packs/Day Years Used Date Smoking Tobacco: Never Assessed Sex and Gender Information Value Date Recorded Sex Assigned at Not on file Gender Identity Female 10/14/2021 11:22 EDT Sexual Orientation Not on file documented as of this encounter Plan of Treatment Upcoming Encounters Date Type Department Care Team (Late st Contact Info) Description 12/17/2024 13:00 EDT Office Visit [facility] Dermatology [address] [facility], [place], [place] [address] Maci Rand MD [address] [facility], [facility] 5 [place] [address] documented as of this encounter Procedures Procedure Name Priority Date/Time Associated Diagnosis Comments COMPLETE BLOOD COUNT WITH DIFFERENTIAL (AUTO) Routine 02/15/2017 12:41 EDT URIC ACID Routine 02/15/2017 12:41 EDT documented in this encounter Results * URIC ACID (02/15/2017 12:41 EDT) Pathologist [facility] URIC ACID - [facility] 4.8 2.6 - 7.2 mg/dl 02/15/2017 14:10 EDT [facility] 02/15/2017 12:4 1 EDT 02/15/2017 12:41 EDT Narrative [facility] - 02/15/2017 14:10 EDT Does PT Have a Latex Allergy? NO Pasha Wood MD CHEMISTRY & BLOOD GA S ORDERABLES [facility] * (ABNORMAL) COMPLETE BLOOD COUNT WITH DIFFERENTIAL (AUTO) (02/15/2017 12:41 EDT) Pathologist [facility] ABSOLUTE NEUTROPHIL COUN - [facility] 7.85(H) 1.7 - 7.0 10e3/ul 02/15/2017 13:54 EDT [facility] BASO # - [facility] 0.03 0.0 - 0.3 10e3/uL 02/15/2017 13:54 EDT [facility] BASO % - [facility] 0 0 - 2 % 02/15/2017 13:54 EDT [facility] EOS # - [facility] 0.13 0.05 - 0.5 10e3/uL 02/15/2017 13:54 EDT [facility] EOS % - [facility] 1 0 - 5 % 02/15/2017 13:54 EDT [facility] GRAN % - [facility] 81(H) 40 - 80 % 02/15/2017 13:54 EDT [facility] HEMATOCRIT - [facility] 42.6 34.0 - 47.0 % 02[facility]2017 [facility] - [facility] 13.6 11.2 - 15.7 g/dl 02/15/2017 13:54 EDT [facility] IG# - [facility] 0.02 0 - 0.07 10e3/uL 02/15/2017 13:54 [facility] IG% - [facility] 0.2 0 - 0.9 % 02/15/2017 13:54 [facility] LYMPH # - [facility] 0.96 0.9 - 2.9 10e3/uL 02/15/2017 13:54 [facility] LYMPH% - [facility] 10(L) 20 - 40 % 02/15/2017 13:54 [facility] MEAN CORPUSCULAR HGB - [facility] 30.5 26 - 34 pg 02/15/2017 13:54 [facility] MEAN CORPUSCULAR HGB CONC - [facility] 31.9 31 - 36 g/dL 02/15/2017 13:54 [facility] MEAN CELL VOLUME - [facility] 95.5 77 - 100 fl 02/15/2017 13:54 [facility] MONO # - [facility] 0.77 0.3 - 0.9 10e3/uL 02/15/2017 13:54 [facility] MONO% - [facility] 8 0 - 12 % 02/15/2017 13:54 [facility] PLATELET COUNT 461(H) 150 - 400 10e3/ul 02/15/2017 13:54 [facility] RED BLOOD COUNT - [facility] 4.46 3.8 - 5.2 10e6/ul 02/15/2017 13:54 [facility] RED CELL DISTRI WIDTH - [facility] 16.0(H) 11.8 - 15.6 % 02/15/2017 13:54 [facility] WHITE BLOOD COUNT - [facility] 9.8 3.5 - 10.5 10e3/ul 02/15/2017 13:54 [facility] 02/15/2017 12:4 1 EDT 02/15/2017 12:41 EDT [facility] - 02/15/2017 13:54 EDT Does PT Have a Latex Allergy? NO Pasha Wood MD HEMATOLOGY & PF4 ORD ERABLES [facility] documented in this encounter Visit Diagnoses Not on filedocumented in this encounter Care Teams Assembler Motor Vehicle Relationship Specialty Start Date End Date Unknown, Provider, PCP - General 08/16/09 09/09/19 documented as of this encounter
--- OUTSIDE RECORDS SUMMARY | 2024-03-27 20:57 | XMS_ITS | Encounter Summary ---
Author Organization [facility] Address [address] [place] [address] Care Team Providers Care Study Assistant Name Role Phone Unknown, Provider Primary Care Provider Encounter Details Date Type Department Care Team (Late st Contact Info) Description 11/02/2015 Results Only [facility] [phone] Madison Jean MD [address] [place], [place] [id number] [address] Social History Tobacco Use Types Packs/Day Years Used Date Smoking Tobacco: Never Assessed Sex and Gender Information Value Date Recorded Sex Assigned at Not on file Gender Identity Female 10/14/2021 11:22 EDT Sexual Orientation Not on file documented as of this encounter Plan of Treatment Upcoming Encounters Date Type Department Care Team (Late st Contact Info) Description 12/17/2024 13:00 EDT Office Visit [facility] [place] [address] [facility], [place] [address] Maci Rand MD [address] [facility], [facility] 5 [place] [address] documented as of this encounter Procedures Procedure Name Priority Date/Time Associated Diagnosis Comments PAP TEST- RESULT ONLY Routine 11/02/2015 0:00 EDT documented in this encounter Results * PAP TEST- RESULT ONLY (11/02/2015 0:00 EDT) Pathologist [facility] Pathology Report: CYTOPATHOLOGY REPORT Reports generated via electronic interface contain original data; however they are lacking the format of the original report. Caution should be taken when reading/interpreti ng unformatted reports. Name: ? PAGE KATZ ? Accession #: ? [id number] ? : ? 1950 (Age: 64) ??F ?Collect Date: ? 11/02/2015 ? Location: ? [facility] ? Receive Date: ? 11/03/2015 ? Provider: MADISON JEAN MD Copy to: KENDY HACKETT MD ? Final Report SPECIMEN ADEQUACY ? Satisfactory for Evaluation - assessment of transformation zone component not applicable ( e.g. atrophy, vaginal sample, hysterectomy) GENERAL CATEGORIZATION ? Epithelial Cell Abnormality INTERPRETATION ? Squamous Cell Abnormality - High grade squamous intraepithelial lesion, with features ? suspicious for invasion (HSIL-I). EDUCATIONAL NOTES/RECOMMENDATI ONS ? [facility] recommends following ASCCP's 2012 Updated Consensus Guidelines for the Management of Abnormal Cervical Cancer Screening Tests and Cancer Precursors (JLGTD, 2013; 17(5):S1-S27). ??Consensus guidelines are available online at www.asccp.org. Comment: ? Dr. Irena Wood has reviewed this case in consultation and concurs with the diagnosis. ??This case was discussed with Dr. Madison Rey on 11/11/2015 at 10:05 AM. ? Previous Gynecologic Pathology: Carcinoma: hx of uterine ca s/p supracervical ca Specimen/Source: ??Pap Test, Cervix/Endocervix, ThinPrep Imaging System with manual evaluation Document reviewed and electronically signed by: ? JEN GRIFFITHS MD ? Report ??Date: 11/11/2015 10:08 HPV with Pap Test ? Date Ordered: ? 11/11/2015 ? Status: ?? Signed Out ?Date Complete: ? 11/15/2015 ? By: ??System Interface ? Date Reported: ? 11/15/2015 ? Interpretation RESULT: Negative for HPV. No E6 or E7 mRNA is detected from HPV types 16,18,31,33,35, 39,45,51,52,56,58, 59,66, and 68 by therapist radiation mediated amplification. Comments Document reviewed and electronically signed by: ? System Interface ? Report date: 11/15/2015 By the signature above, the attending physician certifies that he/she has personally conducted a gross and/or microscopic examination of the described specimens and rendered or confirmed the above diagnosis. End of Report [facility] 11/02/2015 11/03/2015 Madison Jean MD PATHOLOGY ORDERABLES [facility] [address] [place] [address] documented in this encounter Visit Diagnoses Not on filedocumented in this encounter Care Teams Study Assistant Relationship Specialty Start Date End Date Unknown, Provider, PCP - General 08/16/09 09/09/19 documented as of this encounter
--- OUTSIDE RECORDS SUMMARY | 2024-03-27 20:57 | XMS_ITS | Encounter Summary ---
Author Organization [facility] Address [address] [place] [address] Care Team Providers Care Waterproofing Mixer Name Role Phone Unknown, Provider Primary Care Provider Encounter Details Date Type Department Care Team (Late st Contact Info) Description 02/09/[address] [facility] [phone] Madison Jean MD [address] [place], [place] [phone] [address] Social History Tobacco Use Types Packs/Day Years Used Date Smoking Tobacco: Never Assessed Sex and Gender Information Value Date Recorded Sex Assigned at Not on file Gender Identity Female 10/14/2021 11:22 EDT Sexual Orientation Not on file documented as of this encounter Plan of Treatment Upcoming Encounters Date Type Department Care Team (Late st Contact Info) Description 12/17/2024 13:00 EDT Office [place] [facility] [place] [address] [facility], [place] [address] Maci Rand MD 111 [facility], [facility] 5 [place] [phone] documented as of this encounter Procedures Procedure Name Priority Date/Time Associated Diagnosis Comments PAP TEST- RESULT ONLY Routine 02/09/2017 0:00 EDT documented in this encounter Results * PAP TEST- RESULT ONLY (02/09/2017 0:00 EDT) Pathologist [facility] Pathology Report: CYTOPATHOLOGY REPORT Reports generated via electronic interface contain original data; however they are lacking the format of the original report. Caution should be taken when reading/interpreti ng unformatted reports. Name: ? PAGE KATZ ? Accession #: ? [id number] ? : ? 1950 (Age: 66) ??F ?Collect Date: ? 02/09/2017 ? Location: ? [facility] ? Receive Date: ? 02/12/2017 ? Provider: MADISON JEAN MD Copy to: KENDY HACKETT MD ? Final Report SPECIMEN ADEQUACY ? Satisfactory for Evaluation - transformation zone component present GENERAL CATEGORIZATION ? Epithelial Cell Abnormality INTERPRETATION ? Squamous Cell Abnormality - Low grade squamous intraepithelial lesion (LSIL). EDUCATIONAL NOTES/RECOMMENDATI ONS ? [facility] recommends following ASCCP's 2012 Updated Consensus Guidelines for the Management of Abnormal Cervical Cancer Screening Tests and Cancer Precursors (JLGTD, 2013; 17(5):S1-S27). ??Consensus guidelines are available online at www.asccp.org. Comment: ? The patients previous PAP test ([id number]) has been reviewed. ? Hormonal/Contracep tive status: None Previous Gynecologic Pathology: Endometrial adenocarcinoma: HX of stage 1 Treatment History: Hysterectomy: Supra Cervical Specimen/Source: ??Pap Test, Cervix, ThinPrep Imaging System with manual evaluation Document reviewed and electronically signed by: ? LUIS ALBERTO ANDREWS MD ? Report ??Date: 02/23/2017 09:57 HPV with Pap Test ? Date Ordered: ? 02/21/2017 ? Status: ?? Signed Out ?Date Complete: ? 02/26/2017 ? By: ??System Interface ? Date Reported: ? 02/26/2017 ? Interpretation RESULT: Negative for HPV. No E6 or E7 mRNA is detected from HPV types 16,18,31,33,35, 39,45,51,52,56,58, 59,66, and 68 by clocksmith mediated amplification. Comments Document reviewed and electronically signed by: ? System Interface ? Report date: 02/26/2017 By the signature above, the attending physician certifies that he/she has personally conducted a gross and/or microscopic examination of the described specimens and rendered or confirmed the above diagnosis. End of Report [facility] 02/09/2017 02/12/2017 Madison Jean MD PATHOLOGY ORDERABLES [facility] [address] [place] [address] documented in this encounter Visit Diagnoses Not on filedocumented in this encounter Care Teams Waterproofing Mixer Relationship Specialty Start Date End Date Unknown, Provider, PCP - General 08/16/09 09/09/19 documented as of this encounter
--- OUTSIDE RECORDS SUMMARY | 2024-03-27 20:57 | XMS_ITS | Encounter Summary ---
Author Organization [facility] Address [address] [place] [address] Care Team Providers Care Gauge Inspector Name Role Phone Unknown, Provider Primary Care Provider Encounter Details Date Type Department Care Team (Late st Contact Info) Description 05/26/2010 Results Only [facility] Services - [facility] ([address] [phone] Misael Bhatia MD Social History Tobacco Use Types Packs/Day Years Used Date Smoking Tobacco: Never Assessed Sex and Gender Information Value Date Recorded Sex Assigned at Not on file Gender Identity Female 10/14/2021 11:22 EDT Sexual Orientation Not on file documented as of this encounter Plan of Treatment Upcoming Encounters Date Type Department Care Team (Late st Contact Info) Description 12/17/2024 13:00 EDT Office Visit [facility] [place] D[place] [address] [place] [phone] Maci Rand MD [address] [facility], [facility] 5 [place] [address] documented as of this encounter Procedures Procedure Name Priority Date/Time Associated Diagnosis Comments CYTOPATHOLOGY Routine 05/26/2010 0:00 EDT documented in this encounter Results * CYTOPATHOLOGY (05/26/2010 0:00 EDT) Pathology Report: CYTOPATHOLOGY REPORT ? Reports generated via electronic interface contain original data; ? however they are lacking the format of the original report. ? Caution should be taken when reading/interpreti ng unformatted reports. ? Name: ? PAGE KATZ ? Accession #: ? [id number] ? : ? 1950 (Age: 59) ??F ?Collect Date: ? 05/26/2010 ? Location: ? [facility] ? Receive Date: ? 05/27/2010 ? Provider: MISAEL B BHATIA MD ? Copy to: ? Final Report ? SPECIMEN ADEQUACY ? Satisfactory for Evaluation ? - transformation zone component present ? GENERAL CATEGORIZATION ? Epithelial Cell Abnormality ? INTERPRETATION ? Squamous Cell Abnormality - Atypical squamous cells, undetermined ? significance (ASC-US). ? EDUCATIONAL NOTES/RECOMMENDATI ONS ? [facility] recommends following the 2006 Consensus Guidelines for the Management of Women with Abnormal Cervical Cancer Screening Tests (JLGTD, ? 2007;11(4:201-222 ). ??Consensus guidelines are available online at ? www.ASCCP.org. ? Previous Gynecologic Pathology: LSIL: 11/02, 01/03, 07/06 ? ASC-US: 08/06, 08/08 ? HPV: + HR HPV 01/03, 08/06, 07/06 ? LSIL: 08/06 ? Treatment History: Colposcopy: 08/06 ? Specimen/Source: ??Pap Test, Cervix/Endocervix, ThinPrep Imaging System with ? manual evaluation ? Document reviewed and electronically signed by: ? LUIS ALBERTO MOUNT MD ? Report ??Date: 05/31/2010 11:32 ? HPV with Pap Test ? Date Ordered: ? 05/31/2010 ? Status: ?? Signed Out ?Date Complete: ? 06/03/2010 ? By: ??System Interface ? Date Reported: ? 06/03/2010 ? Interpretation ? RESULT: Negative for HPV types 16, 18, 31, 33, 35, 39, 45, 51, 52, ? 56, 58, 59, and 68. ? Comments ? Document reviewed and electronically signed by: ? System Interface ? Report date: 06/03/2010 ? By the signature above, the attending physician certifies that he/she has ? personally conducted a gross and/or microscopic examination of the described ? specimens and rendered or confirmed the above diagnosis. ? End of Report ? [facility] 05/26/2010 05/27/2010 Misael Bhatia MD PATHOLOGY ORDERABLES [facility] [address] [place] [address] documented in this encounter Visit Diagnoses Not on filedocumented in this encounter Care Teams Gauge Inspector Relationship Specialty Start Date End Date Unknown, Provider, PCP - General 08/16/09 09/09/19 documented as of this encounter
--- OUTSIDE RECORDS SUMMARY | 2024-03-27 20:57 | XMS_ITS | Encounter Summary ---
Author Organization [facility] Address [address] [place] [address] Care Team Providers Care Production Department Supervisor Name Role Phone Unknown, Provider Primary Care Provider [phone] Nathalie Bain MD Primary Care Provider [phone] Latha Aguirre MD Primary Care Provider Unavailable Reason for Visit * Reason Comments Other Encounter Details Date Type Department Care Team (Late st Contact Info) Description 06/28/2019 Refill [facility] Rheumatology [address] [place] [address] Pasha Wood MD [facility] Rheumatology [address] [place] [address] [place] [phone] Other Social History Tobacco Use Types Packs/Day Years Used Date Smoking Tobacco: Never Smokeless Tobacco: Never Sex and Gender Information Value Date Recorded Sex Assigned at Not on file Gender Identity Female 10/14/2021 11:22 EDT Sexual Orientation Not on file documented as of this encounter Ordered Prescriptions Prescription Sig Dispensed Refills Start Date End Da te predniSONE (DELTASONE) 1 mg tablet TAKE THREE TABLETS BY MOUTH EVERY DAY AND TAPER DOWN TO TAKE ONE TABLET BY MOUTH EVERY DAY DIRECTED AT LAST APPOINTMENT 90 Tab 2 07/14/2019 12/02/2019 documented in this encounter Miscellaneous Notes * Telephone Encounter - Gris Cazares RN - 07/14/2019 1618 EST Reviewed last visit notes (06/19/2019 and pt is on taper as instructed. Next visit 09/25/2019. Called pt and she is currently alternating 2 mg a day with 1 mg a day and will do so until after the Holidays.Then she will taper down to 1 mg a day. documented in this encounter Plan of Treatment Upcoming Encounters Date Type Department Care Team (Late st Contact Info) Description 12/17/2024 13:00 EDT Office Visit [facility] Dermatology [address] [facility], [place] [address] Maci Rand MD 111 [facility], [facility] 5 [place] [phone] documented as of this encounter Visit Diagnoses Not on filedocumented in this encounter Discontinued Medications Medication Sig Discontinue Reason Start Date End Da te predniSONE (DELTASONE) 1 mg tablet Take 1 mg by mouth daily. 3 tabs of 1mg Reorder 06/28/2019 documented as of this encounter Additional Health Concerns Infection Onset Date Last Indicated Resolved Time COVID-19 11/02/2020 11/02/2020 12/02/2020 22:1 5 EDT documented as of this encounter Care Teams Production Department Supervisor Relationship Specialty Start Date End Date Unknown, MD Champ PCP - General 08/16/09 09/09/19 Nathalie Bain MD [address] [place] [address] PCP - General 09/10/19 12/05/22 Latha Aguirre MD [address] [place] [address] PCP - General Family Medicine - Primary Care 12/06/22 documented as of this encounter
--- OUTSIDE RECORDS SUMMARY | 2024-03-27 20:57 | XMS_ITS | Encounter Summary ---
Author Organization [facility] Address [address] [place] [address] Care Team Providers Care Accordion Repairer Name Role Phone Unknown, Provider Primary Care Provider Encounter Details Date Type Department Care Team (Latest Contact Info) Description 03/13/2014 8:05 EDT - 03/13/2014 23:59 EDT Hospital Encounter [address] [address] Unknown, Provider, Discharge Disposition: Home or Self Care Social History Tobacco Use Types Packs/Day Years [...] Take 1 Tablet by mouth daily. 08/19/2009 ameruyoi-[id number]-calcium-m ins 18 mg iron-400 mcg-500 mg Ca tablet Take by mouth. 08/19/2009 documented as of this encounter Discharge Disposition Disposition Code Departure Means Destination Home or Self Senior Living documented in this encounter Plan of Treatment Upcoming Encounters Date Type Department Care Team (Late st Contact Info) Description 12/17/2024 13:00 EDT Office Visit [facility] Dermatology [address] [facility], [place], [place] [address] Maci Rand MD 111 [facility], Level [address] [place] [address] documented as of this encounter Visit Diagnoses Not on filedocumented in this encounter Care Teams Accordion Repairer Relationship Specialty Start Date End Date Unknown, Provider, PCP - General 08/16/09 09/09/19 documented as of this encounter
--- OUTSIDE RECORDS SUMMARY | 2024-03-27 20:57 | XMS_ITS | Encounter Summary ---
Author Organization [facility] Address [address] [place] [address] Care Team Providers Care Produce Assistant Name Role Phone Unknown, Provider Primary Care Provider Encounter Details Date Type Department Care Team (Late st Contact Info) Description 11/30/2011 Results Only [facility] Laboratory [facility] - [facility] ([address] [phone] Misael Bhatia MD Social History Tobacco Use [...] Info) Description 12/17/2024 13:00 EDT [facility] [place] [address] [place] [phone] Maci Rand MD 111 [facility] 5 [place] [address] documented as of this encounter Procedures Procedure Name Priority Date/Time Associated Diagnosis Comments PAP TEST- RESULT ONLY Routine 11/30/2011 0:00 EDT documented in this encounter Results * PAP TEST- RESULT ONLY (11/30/2011 0:00 EDT) Pathology Report: CYTOPATHOLOGY REPORT Reports generated via electronic interface contain original data; however they are lacking the format of the original report. Caution should be taken when reading/interpreti ng unformatted reports. Name: ? PAGE KATZ ? Accession #: ? [id number] : ? 1950 (Age: 61) ??F ?Collect Date: ? 11/30/2011 Location: ? [facility] ? Receive Date: ? 12/01/2011 Provider: ?MISAEL BHATIA MD Copy to: ? Specimen/Source: ?Pap Test, Cervix/Endocervix, ThinPrep Imaging System with manual evaluation Last Menstrual Period: ? Previous Gynecologic Pathology: ? LSIL: 11/02, 01/03, 07/06 HPV: +HR 07/06 ASC-US: 08/08, 05/08, 11/07 Treatment History: ? Cryotherapy: LSIL-2002 Colposcopy: 08/06-LSIL Other: ? Additional clinical information: pap wnl: 05/09 ? SPECIMEN ADEQUACY ? Satisfactory for Evaluation - transformation zone component present GENERAL CATEGORIZATION ? Negative for Intraepithelial Lesion or Malignancy INTERPRETATION ? Reactive cellular changes associated with inflammation present (includes repair). ? Document reviewed and electronically signed by: ? JEN GRIFFITHS MD ? Report Date: ??12/06/2011 14:31 End of Report [facility] 11/30/2011 12/01/2011 Misael Bhatia MD PATHOLOGY ORDERABLES [facility] [address] [place] [address] documented in this encounter Visit Diagnoses Not on filedocumented in this encounter Care Teams Produce Assistant Relationship Specialty Start Date End Date Unknown, Provider, PCP - General 08/16/09 09/09/19 documented as of this encounter
--- OUTSIDE RECORDS SUMMARY | 2024-03-27 20:57 | XMS_ITS | Encounter Summary ---
Author Organization [facility] Address [address] [place] [address] Care Team Providers Care Appointment Scheduler Name Role Phone Unknown, Provider Primary Care Provider [phone] Encounter Details Date Type Department Care Team (Late st Contact Info) Description 05/23/2006 Results Only [facility] [place] [address] [place] [address] Misael Bhatia MD Social History Tobacco Use [...] Info) Description 12/17/2024 13:00 EDT Office Visit [facility] [place] [address] [place] [address] Maci Rand MD 111 [facility] 5 [place] [phone] documented as of this encounter Procedures Procedure Name Priority Date/Time Associated Diagnosis Comments HPV DETECTION, HIGH RISK TYPES Routine 05/23/2006 9:04 EDT CYTOPATHOLOGY Routine 05/23/2006 0:00 EDT documented in this encounter Results * HUMAN PAPILLOMA VIRUS DNA TEST (05/23/2006 9:04 EDT) Specimen Description Cervix, ThinPrep vial [facility] Result Negative for HPV types 16, 18, 31, 33, 35, 39, 45, 51, 52, 56, 58, 59, and 68. [facility] Report Status Final [id number] [facility] 05/23/2006 9:04 EDT 05/30/2006 9:04 EST Misael Bhatia MD MICROBIOLOGY - GENER AL ORDERABLES [facility] [address] [place] [address] * CYTOPATHOLOGY (05/23/2006 0:00 EDT) Pathology Report: CYTOPATHOLOGY REPORT Reports generated via electronic interface contain original data; however they are lacking the format of the original report. Caution should be taken when reading/interpreti ng unformatted reports. Name: ? PAGE KATZ ? Accession #: ? [id number] : ? 1950 (Age: 55) ??F ?Collect Date: ? 05/23/2006 Location: ? [facility] ? Receive Date: ? 05/25/2006 Provider: ?MISAEL BHATIA MD Copy to: ? Specimen/Source: ?ThinPrep Pap Test, Cervix/Endocervix, processed on [employer] ThinPrep Imaging System, with manual evaluation Last Menstrual Period: ? 2003 Previous Gynecologic Pathology: ? LSIL: 11/28 ??+ HR HPV,11/02 Treatment History: ? Cryotherapy: 2002 Other: ? HPVDX - HPV testing requested regardless of diagnosis on current ThinPrep Pap test. ? SPECIMEN ADEQUACY ? Satisfactory for Evaluation - transformation zone component present GENERAL CATEGORIZATION ? Negative for Intraepithelial Lesion or Malignancy ? Document reviewed and electronically signed by: ? GILLES Head(ASCP) ? Report Date: ??05/29/2006 15:24 End of Report [facility] 05/23/2006 05/25/2006 Misael Bhatia MD PATHOLOGY ORDERABLES [facility] [address] [place] [address] documented in this encounter Visit Diagnoses Not on filedocumented in this encounter Care Teams Appointment Scheduler Relationship Specialty Start Date End Date Unknown, Provider, PCP - General 08/16/09 09/09/19 documented as of this encounter
--- OUTSIDE RECORDS SUMMARY | 2024-03-27 20:57 | XMS_ITS | Encounter Summary ---
Author Organization [facility] Address [address] [place] [address] Care Team Providers Care Financial Reporting Advisor Name Role Phone Unknown, Provider Primary Care Provider [phone] Encounter Details Date Type Department Care Team (Late st Contact Info) Description 01/10/2018 Historical Results Only [facility] Radiology Results [address] [place], [place] [phone] Pasha Wood MD [address] [place] [address] Social History Tobacco Use Types Packs/Day Years Used Date Smoking Tobacco: Never Assessed Sex and Gender Information Value Date Recorded Sex Assigned at Not on file Gender Identity Female 10/14/2021 11:22 EDT Sexual Orientation Not on file documented as of this encounter Plan of Treatment Upcoming Encounters Date Type Department Care Team (Late st Contact Info) Description 12/17/2024 13:00 EDT Office Visit [facility] Dermatology [address] [facility], [facility] [address] [place], [place] [phone] Maci aRnd MD [address] [facility], [address] [place] [address] documented as of this encounter Procedures Procedure Name Priority Date/Time Associated Diagnosis Comments XR RHEUMATOLOGY BILATERAL FEET 2 VIEWS EACH FOOT 01/10/2018 14:18 EDT COMPLETE BLOOD COUNT WITH DIFFERENTIAL (AUTO) Routine 01/10/2018 13:01 EDT COMPREHENSIVE METABOLIC PANEL (CMP) Routine 01/10/2018 13:01 EDT documented in this encounter Results * XR RHEUMATOID FEET (01/10/2018 14:18 EDT) Anatomical Region Laterality Modality Other 01/10/2018 14:1 8 EDT Narrative 01/10/2018 14:21 EDT ? EXAM: RADIOLOGY/RHEUMATOID SERIES FEET BI EX. D/ (1259) ? CLINICAL INFORMATION: ? M06.00 SERONEGATIVE RHEUMATOID ARTHRITIS ? RHEUMATOID SERIES FEET BILAT ? Signs and Symptoms/Comments: M06.00 SERONEGATIVE RHEUMATOID ARTHRITIS ? Comparison: None ? FINDINGS: ? Bilateral Feet: AP views of the both feet were performed. No acute ? fracture is visible on the single views provided. Bony mineralization ? is unremarkable. Moderate-severe degenerative changes are present at ? the 1st MTP joints as evidenced by joint space narrowing, subchondral ? sclerosis, and mild osteophytosis. Moderate degenerative changes are ? also present at the 1st IP joints. Moderate degenerative changes are ? present in the midfoot bilaterally as evidenced by joint space ? narrowing and increased sclerosis. Tiny periarticular erosions may be ? present at the IP joints of the toes, although the differential ? includes tiny subchondral cysts. Bilateral foot soft tissue swelling ? is present. ? IMPRESSION: ? Degenerative changes in both feet, as described. Possible subtle ? erosions in the toes, supportive of the provided diagnosis of ? rheumatoid arthritis. ? REPORT SIGNED IN OTHER VENDOR SYSTEM 01/10/2018 ?Reported By: Ancelmo Esteban MD ? CC: ? Transcribed Date/Time: 01/10/2018 (1421) ? Senior Principal Process Engineer: ? Printed Date/Time: 01/17/2019 (1007) ? PAGE 1 ? Signed Report ? Procedure Note Ancelmo Esteban MD - 06/05/2019 EXAM: RADIOLOGY/RHEUMATOID SERIES FEET BI EX. D/ (1259) CLINICAL INFORMATION: M06.00 SERONEGATIVE RHEUMATOID ARTHRITIS RHEUMATOID SERIES FEET BILAT Signs and Symptoms/Comments: M06.00 SERONEGATIVE RHEUMATOIDARTHRITIS Comparison: None FINDINGS: Bilateral Feet: AP views of the both feet were performed. No acute fracture is visible on the single views provided. Bonymineralization is unremarkable. Moderate-severe degenerative changes are presentat the 1st MTP joints as evidenced by joint space narrowing,subchondral sclerosis, and mild osteophytosis. Moderate degenerative changesare also present at the 1st IP joints. Moderate degenerative changesare present in the midfoot bilaterally as evidenced by joint space narrowing and increased sclerosis. Tiny periarticular erosions maybe present at the IP joints of the toes, although the differential includes tiny subchondral cysts. Bilateral foot soft tissueswelling is present. IMPRESSION: Degenerative changes in both feet, as described. Possible subtle erosions in the toes, supportive of the provided diagnosis of rheumatoid arthritis. REPORT SIGNED IN OTHER VENDOR SYSTEM 01/10/2018 Reported By: Ancelmo Esteban MD CC: Transcribed Date/Time: 01/10/2018 (1421) Senior Principal Process Engineer: Printed Date/Time: 01/17/2019 (3984) PAGE 1 Signed Report Pasha Wood MD IMG DIAGNOSTIC IMAGI NG ORDERABLES * COMPREHENSIVE METABOLIC PANEL (CMP) (01/10/2018 13:01 EDT) Albumin % 3.9 3.4 - 4.9 g/dL 01/10/2018 14:06 [facility] ALKALINE PHOSPHATASE - [facility] 63 38 - 126 U/L 01/10/2018 14:06 [facility] BILIRUBIN TOTAL 0.6 0.2 - 1.3 mg/dL 01/10/2018 14:06 [facility] BUN - [facility] 14 10 - 26 mg/dL 01/10/2018 14:06 [facility] CALCIUM - [facility] 10.2 8.5 - 10.5 mg/dL 01/10/2018 14:06 [facility] Chloride 101 96 - 110 mmol/L 01/10/2018 14:06 [facility] CO2 Total 31 22 - 32 mEq/L 01/10/2018 14:06 [facility] CREATININE 0.57 0.52 - 1.04 mg/dL 01/10/2018 14:06 [facility] eGFR >60 01/10/2018 14:06 [facility] Comment: Chronic renal impairment is defined as GFR <60 Multiply result by 1.210 for patients. eGFR calculated using the MTMS-traceable MDRD Study Equation. ??(effective 06/01/2014) Anion Gap 8 0 - 18 01/10/2018 14:06 [facility] GLUCOSE - [facility] 99 70 - 100 mg/dL 01/10/2018 14:06 [facility] Potassium 3.7 3.5 - 5.0 mEq/L 01/10/2018 14:06 [facility] Sodium 140 136 - 145 mEq/L 01/10/2018 14:06 [facility] TOTAL PROTEIN - [facility] 6.9 6.2 - 8.2 gm/dL 01/10/2018 14:06 [facility] SGOT/AST - [facility] 28 14 - 36 U/L 01/10/2018 14:06 [facility] SGPT/ALT - [facility] 36 9 - 52 U/L 8 14:06 EDT [facility] 01/10/2018 13:0 1 EDT 01/10/2018 13:01 EDT Narrative [facility] - 01/10/2018 14:06 EDT Does PT Have a Latex Allergy? NO Pasha Wood MD CHEMISTRY & BLOOD GA S ORDERABLES [facility] * (ABNORMAL) COMPLETE BLOOD COUNT WITH DIFFERENTIAL (AUTO) (01/10/2018 13:01 EDT) ABSOLUTE NEUTROPHIL COUN - [facility] 5.06 1.7 - 7.0 10e3/ul [facility]10[facility]2018 [facility] - [facility] 0.04 0.0 - 0.3 10e3/uL 01/10/2018 13:39 [facility] BASO % - [facility] 1 0 - 2 % 01/10/2018 13:39 [facility] EOS # - [facility] 0.13 0.05 - 0.5 10e3/uL 01/10/2018 13:39 [facility] EOS % - [facility] 2 0 - 5 % 01/10/2018 13:39 [facility] GRAN % - [facility] 72 40 - 80 % 01/10/2018 13:39 [facility] HEMATOCRIT - [facility] 40.3 34.0 - 47.0 % 01/10/2018 13:39 [facility] HEMOGLOBIN - [facility] 13.2 11.2 - 15.7 g/dl 01/10/2018 13:39 [facility] IG# - [facility] 0.02 0 - 0.07 10e3/uL 01/10/2018 13:39 [facility] IG% - [facility] 0.3 0 - 0.9 % 01/10/2018 13:39 [facility] LYMPH # - [facility] 1.19 0.9 - 2.9 10e3/uL 01/10/2018 13:39 [facility] LYMPH% - [facility] 17(L) 20 - 40 % 01/10/2018 13:39 [facility] MEAN CORPUSCULAR HGB - [facility] 30.3 26 - 34 pg 01/10/2018 13:39 [facility] MEAN CORPUSCULAR HGB CONC - [facility] 32.8 31 - 36 g/dL 01/10/2018 13:39 [facility] MEAN CELL VOLUME - [facility] 92.4 77 - 100 fl 01/10/2018 13:39 [facility] MONO # - [facility] 0.60 0.3 - 0.9 10e3/uL 01/10/2018 13:39 [facility] MONO% - [facility] 9 0 - 12 % 01/10/2018 13:39 [facility] PLATELET COUNT 388 150 - 400 10e3/ul 01/10/2018 13:39 [facility] RED BLOOD COUNT - [facility] 4.36 3.8 - 5.2 10e6/ul 01/10/2018 13:39 [facility] RED CELL DISTRI WIDTH - [facility] 18.0(H) 11.8 - 15.6 % 01/10/2018 13:39 [facility] WHITE BLOOD COUNT - [facility] 7.0 3.5 - 10.5 10e3/ul 01/10/2018 13:39 [facility] 01/10/2018 13:0 1 EDT 01/10/2018 13:01 EDT Narrative [facility] - 01/10/2018 13:39 EDT Does PT Have a Latex Allergy? NO Pasha Wood MD HEMATOLOGY & PF4 ORD ERABLES [facility] documented in this encounter Visit Diagnoses Not on filedocumented in this encounter Care Teams Financial Reporting Advisor Relationship Specialty Start Date End Date Unknown, Provider, PCP - General 08/16/09 09/09/19 documented as of this encounter
--- OUTSIDE RECORDS SUMMARY | 2024-03-27 20:57 | XMS_ITS | Encounter Summary ---
Author Organization [facility] Address [address] [place] [address] Care Team Providers Care Audit Officer Name Role Phone Unavailable Primary Care Provider Unavailabl e Encounter Details Date Type Department Care Team (Late st Contact Info) Description 08/10/2009 Orders Only [facility] [place] [address] [place] [phone] Misael Bhatia MD Social History Tobacco Use [...] 13:00 EDT Office Visit [facility] Dermatology [address] [place] [address] Maci Rand MD [address] [facility], [address] [place] [address] documented as of this encounter Procedures Procedure Name Priority Date/Time Associated Diagnosis Comments HPV DETECTION, HIGH RISK TYPES Routine 08/10/2009 10:44 EST CYTOPATHOLOGY Routine 08/10/2009 0:00 EST documented in this encounter Results * HUMAN PAPILLOMA VIRUS DNA TEST (08/10/2009 10:44 EST) Specimen Description Cervix, ThinPrep vial [facility] Result Negative for HPV types 16, 18, 31, 33, 35, 39, 45, 51, 52, 56, 58, 59, and 68. [facility] Report Status Final 08/19/2009 [facility] 08/10/2009 10:4 4 EST 08/16/2009 10:44 EST Misael Bhatia MD MICROBIOLOGY - GENER AL ORDERABLES [facility] [address] [place] [address] * CYTOPATHOLOGY (08/10/2009 0:00 EST) Pathology Report: CYTOPATHOLOGY REPORT ? Reports generated via electronic interface contain original data; ? however they are lacking the format of the original report. ? Caution should be taken when reading/interpreti ng unformatted reports. ? Name: ? PAGE KATZ ? Accession #: ? [id number] ? : ? 1950 (Age: 58) ??F ?Collect Date: ? 08/10/2009 ? Location: ? [facility] ? Receive Date: ? 08/11/2009 ? Provider: ?MISAEL B BHATIA MD ? Copy to: ? Specimen/Source: ?Pap Test, Cervix/Endocervix, ThinPrep Imaging System ? with manual evaluation ? Last Menstrual Period: ? Previous Gynecologic Pathology: ? LSIL: 2003, 4/06, 6/07, 12/08 ? ASC-US: 1/08 ? HPV: HR 12/04, 6/07, 1/08, 12/08 ? Treatment History: ? Colposcopy: 1/08 ? Cryotherapy: 2003 ? Other: ? HPVA - HPV testing requested if ASC-US on the current ThinPrep Pap test. ? SPECIMEN ADEQUACY ? Satisfactory for Evaluation ? - transformation zone component present ? GENERAL CATEGORIZATION ? Epithelial Cell Abnormality ? INTERPRETATION ? Squamous Cell Abnormality - Atypical squamous cells, undetermined ? significance (ASC-US). ? EDUCATIONAL NOTES/RECOMMENDATI ONS ? [facility] recommends following the 2006 Consensus Guidelines for the Management of Women with Abnormal Cervical Cancer Screening Tests (JLGTD, ? 2007;11(4):201-222 ). ??Consensus guidelines are available online at ? www.ASCCP.org. ? Document reviewed and electronically signed by: ? ABDELMONEM ELHOSSEINY MD ? Report Date: ??08/13/2009 16:10 ? End of Report ? [facility] 08/10/2009 08/11/2009 Misael Bhatia MD PATHOLOGY ORDERABLES [facility] [address] [place] [address] documented in this encounter Visit Diagnoses Not on filedocumented in this encounter
--- OUTSIDE RECORDS SUMMARY | 2024-03-27 20:57 | XMS_ITS | Encounter Summary ---
Author Organization [facility] Address [address] [place] [address] Care Team Providers Care Adult Basic Education Teacher Name Role Phone Unknown, Provider Primary Care Provider Encounter Details Date Type Department Care Team (Late st Contact Info) Description 11/20/2005 Results Only [facility] [address] [place] [phone] Misael Bhatia MD Social History Tobacco Use [...] Info) Description 12/17/2024 13:00 EDT [facility] Visit [facility] [place] [address] [place] [address] Maci Rand MD [address] [facility], [facility] 5 [place] [phone] documented as of this encounter Procedures Procedure Name Priority Date/Time Associated Diagnosis Comments CYTOPATHOLOGY Routine 11/20/2005 0:00 EDT documented in this encounter Results * CYTOPATHOLOGY (11/20/2005 0:00 EDT) Pathology Report: CYTOPATHOLOGY REPORT Reports generated via electronic interface contain original data; however they are lacking the format of the original report. Caution should be taken when reading/interpreti ng unformatted reports. Name: ? PAGE KATZ ? Accession #: ? [id number] : ? 1950 (Age: 54) ??F ?Collect Date: ? 11/20/2005 Location: ? [facility] ? Receive Date: ? 11/22/2005 Provider: ?MISAEL BHATIA MD Copy to: ? Specimen/Source: ?ThinPrep Pap Test, Cervix/Endocervix, processed on [employer] ThinPrep Imaging System, with manual evaluation Last Menstrual Period: ? Previous Gynecologic Pathology: ? LSIL: 06/01 HPV: + 06/01 Treatment History: ? Colposcopy: 11/28 Other: ? Additional clinical information: Pap 06/22/03 & 07/18/04 wnl HPVA - HPV testing requested if ASC-US on the current ThinPrep Pap test. ? SPECIMEN ADEQUACY ? Satisfactory for Evaluation - transformation zone component present GENERAL CATEGORIZATION ? Epithelial Cell Abnormality INTERPRETATION ? Squamous Cell Abnormality - Low grade squamous intraepithelial lesion (LSIL). EDUCATIONAL NOTES/RECOMMENDATI ONS ? [facility] recommends following the 2001 Consensus Guidelines for the Management of Women with Cervical Cytological Abnormalities (MAYRA,2002;287:212 0-9). Management algorithms have been distributed by [facility] and are available online at www.ASCCP.org. ? Document reviewed and electronically signed by: ? Kenzie De Dios MD ? Report Date: ??11/27/2005 16:51 End of Report [facility] 11/20/2005 11/22/2005 Misael Bhatia MD PATHOLOGY ORDERABLES [facility] [address] [place] [address] documented in this encounter Visit Diagnoses Not on filedocumented in this encounter Care Teams Adult Basic Education Teacher Relationship Specialty Start Date End Date Unknown, Provider, PCP - General 08/16/09 09/09/19 documented as of this encounter
--- OUTSIDE RECORDS SUMMARY | 2024-03-27 20:57 | XMS_ITS | Encounter Summary ---
Author Organization [facility] Address [address] [place] [address] Care Team Providers Care Signal Wirer Name Role Phone Unknown, Provider Primary Care Provider [phone] Nathalie Bain MD Primary Care Provider Latha Aguirre MD Primary Care Provider Unavailable Reason for Visit * Reason Comments Other Encounter Details Date Type Department Care Team (Late st Contact Info) Description 07/12/2019 Refill [facility] Rheumatology [address] [place] [address] Pasha Wood MD [facility] Rheumatology [address] [place] [address] [place] [phone] Other Social History Tobacco Use Types Packs/Day [...] Office Visit [facility] Dermatology [address] [facility], [place] [address] Maci Rand MD [address] [facility], [address] [place] [phone] documented as of this encounter Visit Diagnoses Not on filedocumented in this encounter Additional Health Concerns Infection Onset Date Last Indicated Resolved Time COVID-19 11/02/2020 11/02/2020 12/02/2020 22:1 5 EDT documented as of this encounter Care Teams Signal Wirer Relationship Specialty Start Date End Date Unknown, Provider, PCP - General 08/16/09 09/09/19 Nathalie Bain MD [address] [place] [address] PCP - General 09/10/19 12/05/22 Latha Aguirre MD [address] [place] [address] PCP - General Family Medicine - Primary Care 12/06/22 documented as of this encounter
--- OUTSIDE RECORDS SUMMARY | 2024-03-27 20:57 | XMS_ITS | Encounter Summary ---
Author Organization [facility] Address [address] [place] [address] Care Team Providers Care Remote Inpatient Coder Name Role Phone Unknown, Provider Primary Care Provider Encounter Details Date Type Department Care Team (Latest Contact Info) Description 12/01/2015 14:25 EDT - 12/01/2015 23:59 EDT Hospital Encounter [address] [address] Unknown, Provider, Discharge Disposition: Home or Self [...] Take 1 Tablet by mouth daily. 08/19/2009 [id number]-kaps-WS-calcium-m ins 18 mg iron-400 mcg-500 mg Ca tablet Take by mouth. 08/19/2009 documented as of this encounter Discharge Disposition Disposition Code Departure Means Destination Home or Self Residential documented in this encounter Plan of Treatment Upcoming Encounters Date Type Department Care Team (Late st Contact Info) Description 12/17/2024 13:00 EDT Office Visit [facility] Dermatology 130 [facility], [place], [place] [phone] Maci Rand MD 111 [facility] 5 [place] [address] documented as of this encounter Visit Diagnoses Not on filedocumented in this encounter Care Teams Remote Inpatient Coder Relationship Specialty Start Date End Date Unknown, ProviderMD PCP - General 08/16/09 09/09/19 documented as of this encounter
--- OUTSIDE RECORDS SUMMARY | 2024-03-27 20:57 | XMS_ITS | Encounter Summary ---
Author Organization [facility] Address [address] [place] [address] Care Team Providers Care Technical Stenographer Name Role Phone Unknown, Provider Primary Care Provider Encounter Details Date Type Department Care Team (Latest Contact Info) Description 01/10/2018 23:11 EDT - 01/10/2018 23:59 EDT Hospital Encounter [address] [address] Unknown, Provider, Discharge Disposition: Home or Self [...] Take 1 Tablet by mouth daily. 08/19/2009 khsmffrn-rqez-CO-calcium-m ins 18 mg iron-400 mcg-500 mg Ca tablet Take by mouth. 08/19/2009 documented as of this encounter Discharge Disposition Disposition Code Departure Means Destination Home or Self [facility] documented in this encounter Plan of Treatment Upcoming Encounters Date Type Department Care Team (Late st Contact Info) Description 12/17/2024 13:00 EDT Office Visit [facility] Dermatology [address] [facility], [place] [address] Maci Rand MD 111 [facility] 5 [place] [address] documented as of this encounter Visit Diagnoses Not on filedocumented in this encounter Care Teams Technical Stenographer Relationship Specialty Start Date End Date Unknown, Provider, PCP - General 08/16/09 09/09/19 documented as of this encounter
--- OUTSIDE RECORDS SUMMARY | 2024-03-27 20:57 | XMS_ITS | Encounter Summary ---
Author Organization [facility] Address [address] [place] [address] Care Team Providers Care Chemical Process Analyst Name Role Phone Unknown, Provider Primary Care Provider Encounter Details Date Type Department Care Team (Late st Contact Info) Description 12/24/2012 Results Only [facility] - [facility] ([address] [phone] Misael Bhatia MD Social History Tobacco Use [...] Info) Description 12/17/2024 13:00 EDT Office Visit [facility] [place] [address] [place] [address], [place], [place] [address] Maci Rand MD 111 [facility] 5 [place] [address] documented as of this encounter Procedures Procedure Name Priority Date/Time Associated Diagnosis Comments PAP TEST- RESULT ONLY Routine 12/24/2012 0:00 EDT documented in this encounter Results * PAP TEST- RESULT ONLY (12/24/2012 0:00 EDT) Pathology Report: CYTOPATHOLOGY REPORT Reports generated via electronic interface contain original data; however they are lacking the format of the original report. Caution should be taken when reading/interpreti ng unformatted reports. Name: ? PAGE KATZ ? Accession #: ? [id number] ? : ? 1950 (Age: 62) ??F ?Collect Date: ? 12/24/2012 ? Location: ? [facility] ? Receive Date: ? 12/25/2012 ? Provider: MISAEL BHATIA MD Copy to: ? Final Report SPECIMEN ADEQUACY ? Satisfactory for Evaluation - transformation zone component present GENERAL CATEGORIZATION ? Negative for Intraepithelial Lesion or Malignancy INTERPRETATION ? Reactive cellular changes associated with inflammation present (includes repair). Previous Gynecologic Pathology: LSIL: , 11/02, 01/03, 07/06 ASC-US: -HPV 08/08, 05/08, 11/07 Treatment History: Cryotherapy: 2002 Colposcopy: 08/06 Other: Additional clinical information: paps WNL: 05/09, 12/08 Specimen/Source: ??Pap Test, Cervix/Endocervix, ThinPrep Imaging System with manual evaluation Document reviewed and electronically signed by: ? JONO GARNICA MD ? Report ??Date: 12/31/2012 16:12 HPV with Pap Test ? Date Ordered: ? 12/31/2012 ? Status: ?? Signed Out ?Date Complete: ? 01/04/2013 ? By: ??System Interface ? Date Reported: ? 01/04/2013 ? Interpretation RESULT: Negative for HPV. No E6 or E7 mRNA is detected from HPV types 16,18,31,33,35, 39,45,51,52,56,58, 59,66, and 68 by flat breakdown processor mediated amplification. Comments Document reviewed and electronically signed by: ? System Interface ? Report date: 01/04/2013 By the signature above, the attending physician certifies that he/she has personally conducted a gross and/or microscopic examination of the described specimens and rendered or confirmed the above diagnosis. End of Report [facility] 12/24/2012 12/25/2012 Misael Bhatia MD PATHOLOGY ORDERABLES Performing Organization Address City/State/[facility] Co de Phone Number [facility] [address] [place] [address] documented in this encounter Visit Diagnoses Not on filedocumented in this encounter Care Teams Chemical Process Analyst Relationship Specialty Start Date End Date Unknown, Provider, PCP - General 08/16/09 09/09/19 documented as of this encounter
--- OUTSIDE RECORDS SUMMARY | 2024-03-27 20:57 | XMS_ITS | Encounter Summary ---
Author Organization [facility] Address [address] [place] [address] Care Team Providers Care Bunghole Borer Name Role Phone Unknown, Provider Primary Care Provider [phone] Encounter Details Date Type Department Care Team (Late st Contact Info) Description 04/22/2014 Results Only [facility]- [facility] [phone] Madison Jean MD [address] [place], [place] [id number] [address] Social History Tobacco Use Types Packs/Day Years Used Date Smoking Tobacco: Never Assessed Sex and Gender Information Value Date Recorded Sex Assigned at Not on file Gender Identity Female 10/14/2021 11:22 EDT Sexual Orientation Not on file documented as of this encounter Plan of Treatment Upcoming Encounters Date Type Department Care Team (Late st Contact Info) Description 12/17/2024 13:00 EDT Office Visit [facility] Dermatology [address] [facility], [place] [address] Maci Rand MD [address] [facility], [address] [place] [phone] documented as of this encounter Procedures Procedure Name Priority Date/Time Associated Diagnosis Comments SURGICAL PATHOLOGY Routine 04/22/2014 19 :38 EDT documented in this encounter Results * SURGICAL PATHOLOGY (04/22/2014 19:38 EDT) Pathology Report: SURGICAL PATHOLOGY REPORT Reports generated via electronic interface contain original data; however they are lacking the format of the original report. Caution should be taken when reading/interpreting unformatted reports. Name: ? PAGE KATZ ? Accession #: ? [id number] ? : ? 1950 (Age: 63) ??F ? Collect Date: ? 04/22/2014 ? Location: ? [facility] ? Receive Date: ? 04/24/2014 ? Provider: MADISON JEAN MD Copy to: JAMEEL PEREIRA MD ? Final Pathologic Diagnosis: A. ENDOCERVIX, CURETTAGE: - Scant fragments benign ectocervical and endocervical mucosa. - Scant fragment endometrial tissue with focal simple hyperplasia without atypia. B. ENDOMETRIUM, CURETTAGE: - Fragments of endometrial polyp, hyperplastic type without definitive cytologic atypia. See comment. - Fragments of fibroadipose tissue. - Fragments of benign squamous mucosa. C. ENDOMETRIUM, FUNDUS, NODULES, BIOPSY: - Crushed endometrial tissue with crowded glands, consistent complex endometrial hyperplasia with cytologic atypia. See comment. Comment: This case has been discussed with Dr. Rey on 04/28/14 at 12:30 PM. ??There is extensive tubal metaplasia which makes assessment of cytologic atypia difficult in this case; however a rare focus of cytologic atypia is seen in specimen C. Inspector Automatic Typewriter sections of this case were reviewed at the intradepartmental consultation conference. Document reviewed and electronically signed by: KLAUS KONG MD Report ??Date: 04/28/2014 18:04 By the signature above, the attending physician certifies that he/she has personally conducted a gross and/or microscopic examination of the described specimens and rendered or confirmed the above diagnosis. Specimen(s) Received: A. ?Endocervical curettage B. ? Endometrial curettings C. ? Bx fundal nodules Clinical History: Postmenopausal bleeding Gross Description: A. ?Received in formalin labelled with proper patient identification (initials N, P) and 1. endocervical curettage is an aggregate of red-brown hemorrhagic tissue (0.5 x 0.4 x 0.1 cm). Submitted in toto in A1. B. ?Received in formalin labelled with proper patient identification (initials N, P) and 2. endometrial curettings is an aggregate of red-brown hemorrhagic tissue (5.0 x 3.5 x 0.8 cm). Submitted in toto in B1 through B3. C. ?Received in formalin labelled with proper patient identification (initials N, P) and 3. biopsy fundal nodules are five minute pink-cortez tissues (0.1 x 0.1 x less than 0.1 cm to less than 0.1 x less than 0.1 x less than 0.1 cm). ??Entirely submitted in C1. Dr. Padilla 04/25/14 11:09 AM End of Report [facility] 04/22/2014 19:3 8 EDT 04/24/2014 19:38 EDT Madison Jean MD PATHOLOGY ORDERABLES Performing Organization Address City/State/[facility] Co de Phone Number [facility] [address] [place] [address] documented in this encounter Visit Diagnoses Not on filedocumented in this encounter Care Teams Bunghole Borer Relationship Specialty Start Date End Date Unknown, Provider, PCP - General 08/16/09 09/09/19 documented as of this encounter
--- OUTSIDE RECORDS SUMMARY | 2024-03-27 20:57 | XMS_ITS | Encounter Summary ---
Author Organization [facility] Address [address] [place] [address] Care Team Providers Care Molder Labels Name Role Phone Unavailable Primary Care Provider Unavailabl e Encounter Details Date Type Department Care Team (Late st Contact Info) Description 07/15/2008 Before PRISM Converted Visit ([facility]) [facility] - Maple conversion [address] [place] [address] Misael Bhatia MD Social History Tobacco Use [...] Info) Description 12/17/2024 13:00 EDT Office Visit [facility] [place] [address] [place] [address] Maci Rand MD [address] [facility], [facility] 5 [place] [phone] documented as of this encounter Procedures Procedure Name Priority Date/Time Associated Diagnosis Comments HPV DETECTION, HIGH RISK TYPES Routine 07/15/2008 14:35 EST CYTOPATHOLOGY Routine 07/15/2008 0:00 EST documented in this encounter Results * HUMAN PAPILLOMA VIRUS DNA TEST (07/15/2008 14:35 EST) Specimen Description Cervix, ThinPrep vial [facility] Result Positive for one or more of HPV types 16,18,31,33,35 ,39,45,51,52,5 6,58,59, or 68. These high/intermedi ate risk HPV types are associated with dysplasia and some cervical cancers. [facility] Report Status Final 07/30/2008 [facility] 07/15/2008 14:3 5 EST 07/27/2008 14:35 EST Misael Bhatia MD MICROBIOLOGY - GENER AL ORDERABLES [facility] [address] [place] [address] * CYTOPATHOLOGY (07/15/2008 0:00 EST) Pathology Report: CYTOPATHOLOGY REPORT ? Reports generated via electronic interface contain original data; ? however they are lacking the format of the original report. ? Caution should be taken when reading/interpreti ng unformatted reports. ? Name: ? PAGE KATZ ? Accession #: ? [id number] ? : ? 1950 (Age: 57) ??F ?Collect Date: ? 07/15/2008 ? Location: ? [facility] ? Receive Date: ? 07/17/2008 ? Provider: ?MISAEL B BHATIA MD ? Copy to: ? Specimen/Source: ?Pap Test, Cervix/Endocervix, ThinPrep Imaging System ? with manual evaluation ? Last Menstrual Period: ? Previous Gynecologic Pathology: ? LSIL: 4/06, 6/07 ? ASC-US: 1/08 ? HPV: + HR HPV 6/07, 1/08 ? Treatment History: ? Colposcopy: LSIL ? Cryotherapy ? Other: ? HPVDX - HPV testing requested regardless of diagnosis on current ThinPrep Pap ?? test. ? SPECIMEN ADEQUACY ? Satisfactory for Evaluation ? - transformation zone component present ? GENERAL CATEGORIZATION ? Epithelial Cell Abnormality ? INTERPRETATION ? Squamous Cell Abnormality - Low grade squamous intraepithelial lesion ? (LSIL). ? EDUCATIONAL NOTES/RECOMMENDATI ONS ? [facility] recommends following the 2006 Consensus Guidelines for the Management of Women with Abnormal Cervical Cancer Screening Tests (JLGTD, ? 2007;11(4):201-222 ). ??Consensus guidelines are available online at ? www.ASCCP.org. ? Document reviewed and electronically signed by: ? DORIAN RAZA MD [facility] ? Report Date: ??07/27/2008 11:31 ? End of Report ? [facility] 07/15/2008 07/17/2008 Misael Bhatia MD PATHOLOGY ORDERABLES [facility] [address] [place] [address] documented in this encounter Visit Diagnoses Not on filedocumented in this encounter
--- OUTSIDE RECORDS SUMMARY | 2024-03-27 20:57 | XMS_ITS | Encounter Summary ---
Author Organization [facility] Address [address] [place] [address] Care Team Providers Care Turkey Pinner Name Role Phone Unknown, Provider Primary Care Provider Encounter Details Date Type Department Care Team (Late st Contact Info) Description 01/15/2007 Results Only [facility] - Maple conversion [address] [place] [address] Misael Bhatia MD Social History Tobacco Use [...] Info) Description 12/17/2024 13:00 EDT Office Visit [facility] Dermatology [address] [place] [address] Maci Rand MD [address] [facility], [facility] 5 [place] [phone] documented as of this encounter Procedures Procedure Name Priority Date/Time Associated Diagnosis Comments HPV DETECTION, HIGH RISK TYPES Routine 01/15/2007 9:03 EDT CYTOPATHOLOGY Routine 01/15/2007 0:00 EDT documented in this encounter Results * HUMAN PAPILLOMA VIRUS DNA TEST (01/15/2007 9:03 EDT) Specimen Description Cervix, ThinPrep vial [facility] Result Positive for one or more of HPV types 16,18,31,33,35 ,39,45,51,52,5 6,58,59, or 68. These high/intermedi ate risk HPV types are associated with dysplasia and some cervical cancers. [facility] Report Status Final [id number] [facility] 01/15/2007 9:03 EDT 01/24/2007 9:03 EDT Misael Bhatia MD MICROBIOLOGY - GENER AL ORDERABLES [facility] [address] [place] [address] * CYTOPATHOLOGY (01/15/2007 0:00 EDT) Pathology Report: CYTOPATHOLOGY REPORT Reports generated via electronic interface contain original data; however they are lacking the format of the original report. Caution should be taken when reading/interpreti ng unformatted reports. Name: ? PAGE KATZ ? Accession #: ? [id number] : ? 1950 (Age: 56) ??F ?Collect Date: ? 01/15/2007 Location: ? [facility] ? Receive Date: ? 01/16/2007 Provider: ?MISAEL BHATIA MD Copy to: ? Specimen/Source: ?ThinPrep Pap Test, Cervix/Endocervix, processed on [employer] ThinPrep Imaging System, with manual evaluation Last Menstrual Period: ? Previous Gynecologic Pathology: ? LSIL: 11/02 Treatment History: ? Cryotherapy: 2002 Other: ? HPVDX - HPV testing requested regardless of diagnosis on current ThinPrep Pap test. ? SPECIMEN ADEQUACY ? Satisfactory for Evaluation - transformation zone component present GENERAL CATEGORIZATION ? Epithelial Cell Abnormality INTERPRETATION ? Squamous Cell Abnormality - Low grade squamous intraepithelial lesion (LSIL). EDUCATIONAL NOTES/RECOMMENDATI ONS ? [facility] recommends following the 2001 Consensus Guidelines for the Management of Women with Cervical Cytological Abnormalities (MAYRA,2002;287:212 0-9). Management algorithms have been distributed by [facility] and are available online at www.ASCCP.org. ? Document reviewed and electronically signed by: ? RASHEEDA ALMEIDA MD ? Report Date: ??01/23/2007 17:55 End of Report [facility] 01/15/2007 01/16/2007 Misael Bhatia MD PATHOLOGY ORDERABLES Performing Organization Address City/State/[facility] Co de Phone Number [facility] [address] [place] [address] documented in this encounter Visit Diagnoses Not on filedocumented in this encounter Care Teams Turkey Pinner Relationship Specialty Start Date End Date Unknown, Provider, PCP - General 08/16/09 09/09/19 documented as of this encounter
--- OUTSIDE RECORDS SUMMARY | 2024-03-27 20:57 | XMS_ITS | Encounter Summary ---
Author Organization [facility] Address [address] [place] [address] Care Team Providers Care Dentist/Owner Name Role Phone Unknown, Provider Primary Care Provider [phone] Encounter Details Date Type Department Care Team (Late st Contact Info) Description 05/16/2011 Results Only [facility] Laboratory Services - [facility] ([address] [address] Misael Bhatia MD Social History Tobacco Use [...] EDT [facility] [place] [address] [place] [phone] Maci Rand MD [address] [facility] 5 [place] [address] documented as of this encounter Procedures Procedure Name Priority Date/Time Associated Diagnosis Comments PAP TEST- RESULT ONLY Routine 05/16/2011 0:00 EDT documented in this encounter Results * PAP TEST- RESULT ONLY (05/16/2011 0:00 EDT) Pathology Report: CYTOPATHOLOGY REPORT Reports generated via electronic interface contain original data; however they are lacking the format of the original report. Caution should be taken when reading/interpreti ng unformatted reports. Name: ? PAGE KATZ ? Accession #: ? [id number] : ? 1950 (Age: 60) ??F ?Collect Date: ? 05/16/2011 Location: ? [facility] ? Receive Date: ? 05/17/2011 Provider: ?MISAEL BHATIA MD Copy to: ? Specimen/Source: ?Pap Test, Cervix/Endocervix, ThinPrep Imaging System with manual evaluation Last Menstrual Period: ? Previous Gynecologic Pathology: ? LSIL: 2002, 11/02, 01/03, 08/06, 07/06 HPV: + HR HPV 07/02, 01/03, 07/06 ASC-US: 07/2009, 11/07 Yes: min atypia Treatment History: ? Cryotherapy: 2002 Colposcopy: 08/06, 04/2010, 10/2010 Other: ? Additional clinical information: Pap WNL 07/02, Neg HPV 07/2009 ? SPECIMEN ADEQUACY ? Satisfactory for Evaluation - transformation zone component present GENERAL CATEGORIZATION ? Negative for Intraepithelial Lesion or Malignancy ? Document reviewed and electronically signed by: ? Kamilla Zhu, CASTRO(ASCP)(IAC) ? Report Date: ??05/24/2011 16:32 End of Report [facility] 05/16/2011 05/17/2011 Misael Bhatia MD PATHOLOGY ORDERABLES [facility] [address] [place] [address] documented in this encounter Visit Diagnoses Not on filedocumented in this encounter Care Teams Dentist/Owner Relationship Specialty Start Date End Date Unknown, Provider, PCP - General 08/16/09 09/09/19 documented as of this encounter
--- OUTSIDE RECORDS SUMMARY | 2024-03-27 20:57 | XMS_ITS | Encounter Summary ---
Author Organization [facility] Address [address] [place] [address] Care Team Providers Care Experimental Welder Name Role Phone Unknown, Provider Primary Care Provider Encounter Details Date Type Department Care Team (Latest Contact Info) Description 12/01/2015 9:09 EDT - 12/01/2015 14:24 EDT Hospital Encounter [address] [address] Unknown, Provider, Discharge Disposition: Home or Self [...] Take 1 Tablet by mouth daily. 08/19/2009 nwmyxayg-ourr-SG-calcium-m ins 18 mg iron-400 mcg-500 mg Ca tablet Take by mouth. 08/19/2009 documented as of this encounter Discharge Disposition Disposition Code Departure Means Destination Home or Self Residential documented in this encounter Plan of Treatment Upcoming Encounters Date Type Department Care Team (Late st Contact Info) Description 12/17/2024 13:00 EDT Office Visit [facility] Dermatology [address] [facility], [place], [place] [address] Maci Rand MD 111 [facility] 5 [place] [address] documented as of this encounter Visit Diagnoses Not on filedocumented in this encounter Care Teams Experimental Welder Relationship Specialty Start Date End Date Unknown, ProviderMD PCP - General 08/16/09 09/09/19 documented as of this encounter
--- OUTSIDE RECORDS SUMMARY | 2024-03-27 20:57 | XMS_ITS | Encounter Summary ---
Author Organization [facility] Address [address] [place] [address] Care Team Providers Care Electric Range Servicer Name Role Phone Unknown, Provider Primary Care Provider Encounter Details Date Type Department Care Team (Late st Contact Info) Description 11/15/2010 Results Only [facility] Laboratory Services - [facility] ([address] [phone] Misael Bhatia MD Social History Tobacco Use [...] EDT Office Visit [facility] Dermatology [address] [place] [address] Maci Rand MD 111 [facility], [facility] 5 [place] [phone] Pending Results Name Type Priority Associated Diagnoses Date /Time CYTOPATHOLOGY Pathology Routine 11/15/2010 0:00 EDT documented as of this encounter Procedures Procedure Name Priority Date/Time Associated Diagnosis Comments PAP TEST- RESULT ONLY Routine 11/15/2010 0:00 EDT documented in this encounter Results * PAP TEST- RESULT ONLY (11/15/2010 0:00 EDT) Pathology Report: CYTOPATHOLOGY REPORT ? Reports generated via electronic interface contain original data; ? however they are lacking the format of the original report. ? Caution should be taken when reading/interpreti ng unformatted reports. ? Name: ? PAGE KATZ ? Accession #: ? [id number] ? : ? 1950 (Age: 59) ??F ?Collect Date: ? 11/15/2010 ? Location: ? [facility] ? Receive Date: ? 11/16/2010 ? Provider: ?MISAEL Holcomb BHATIA MD ? Copy to: ? Specimen/Source: ?Pap Test, Cervix/Endocervix, ThinPrep Imaging System ? with manual evaluation ? Last Menstrual Period: ? Previous Gynecologic Pathology: ? LSIL: 4/06, 6/07 ? HPV: + HR HPV 12/08 ? ASC-US: - HR HPV 1/10, 10/10 ? Treatment History: ? Colposcopy: 1/05-LSIL ? Cryotherapy: 2003 ? SPECIMEN ADEQUACY ? Satisfactory for Evaluation ? - transformation zone component present ? GENERAL CATEGORIZATION ? Epithelial Cell Abnormality ? INTERPRETATION ? Squamous Cell Abnormality - Atypical squamous cells, undetermined ? significance (ASC-US). ? EDUCATIONAL NOTES/RECOMMENDATI ONS ? [facility] recommends following the 2006 Consensus Guidelines for the Management of Women with Abnormal Cervical Cancer Screening Tests (JLGTD, ? 2007;11(4:201-222 ). ??Consensus guidelines are available online at ? www.ASCCP.org. ? Document reviewed and electronically signed by: ? RASHEEDA ALMEIDA MD ? Report Date: ??11/24/2010 07:36 ? End of Report ? [facility] 11/15/2010 11/16/2010 Misael Bhatia MD PATHOLOGY ORDERABLES [facility] [address] [place] [address] documented in this encounter Visit Diagnoses Not on filedocumented in this encounter Care Teams Electric Range Servicer Relationship Specialty Start Date End Date Unknown, Provider, PCP - General 08/16/09 09/09/19 documented as of this encounter
--- OUTSIDE RECORDS SUMMARY | 2024-03-27 20:57 | XMS_ITS | Encounter Summary ---
Author Organization [facility] Address [address] [place] [address] Care Team Providers Care Process Area Supervisor Name Role Phone Unknown, Provider Primary Care Provider Encounter Details Date Type Department Care Team (Latest Contact Info) Description 04/11/2017 9:17 EDT - 04/11/2017 23:59 EDT Hospital Encounter [address] [address] Unknown, Provider, Discharge Disposition: Home or Self [...] Take 1 Tablet by mouth daily. 08/19/2009 xamuzeag-tfik-RK-calcium-m ins 18 mg iron-400 mcg-500 mg Ca tablet Take by mouth. 08/19/2009 documented as of this encounter Discharge Disposition Disposition Code Departure Means Destination Home or Self [facility] documented in this encounter Plan of Treatment Upcoming Encounters Date Type Department Care Team (Late st Contact Info) Description 12/17/2024 13:00 EDT Office Visit [facility] Dermatology [address] [facility], [place], [place] [address] Maci Rand MD [address] [facility], Level [address] [place] [address] documented as of this encounter Visit Diagnoses Not on filedocumented in this encounter Care Teams Process Area Supervisor Relationship Specialty Start Date End Date Unknown, Provider, PCP - General 08/16/09 09/09/19 documented as of this encounter
--- OUTSIDE RECORDS SUMMARY | 2024-03-27 20:57 | XMS_ITS | Encounter Summary ---
Author Organization [facility] Address [address] [place] [address] Care Team Providers Care Family Physician Name Role Phone Unknown, Provider Primary Care Provider [phone] Encounter Details Date Type Department Care Team (Late st Contact Info) Description 04/11/2017 Results Only [facility]- [facility] [phone] Madison Jean MD [address] [place], [place] [phone] [address] Social History Tobacco Use Types Packs/Day Years [...] EDT Office Visit [facility] Dermatology [address] [facility], [place] [address] Maci Rand MD 111 [facility], Level [address] [place] [phone] documented as of this encounter Procedures Procedure Name Priority Date/Time Associated Diagnosis Comments SURGICAL PATHOLOGY Routine 04/11/2017 19 :08 EDT documented in this encounter Results * SURGICAL PATHOLOGY (04/11/2017 19:08 EDT) Pathology Report: SURGICAL PATHOLOGY REPORT Reports generated via electronic interface contain original data; however they are lacking the format of the original report. Caution should be taken when reading/interpreting unformatted reports. Name: ? PAGE KATZ ? Accession #: ? [id number] ? : ? 1950 (Age: 66) ??F ? Collect Date: ? 04/11/2017 ? Location: ? [facility] ? Receive Date: ? 04/11/2017 ? Provider: MADISON JEAN MD Copy to: KENDY HACKETT MD ? Final Pathologic Diagnosis: A. ENDOCERVIX, ENDOCERVICAL CURETTAGE: - Ectocervical mucosa with reactive atypia. See comment. B. CERVIX, 9 O'CLOCK, BIOPSY: - Ectocervical mucosa with reactive changes. See comment. Comment: Deeper sections have been examined. Block B consists of cervical tissue with only minimal evaluable squamous mucosa. The prior pap smear ([id number]) was reviewed in conjunction with this case and the diagnosis of LSIL confirmed. Boat Hoist Operator Helper slides of this case were reviewed at the intradepartmental consultation conference. ?? Dr. Benton 04/13/2017 8:51 AM Document reviewed and electronically signed by: RASHEEDA ALMEIDA MD Report ??Date: 04/13/2017 15:54 By the signature above, the attending physician certifies that he/she has personally conducted a gross and/or microscopic examination of the described specimens and rendered or confirmed the above diagnosis. Specimen(s) Received: A. ??ECC B. ??9 o'clock bx Clinical History: JOEY I on recent Pap, (-) HPV; hx of supracervical hyst, hx of endometrial Ca Gross Description: A. ?Received in formalin labelled with proper patient identification (initials N, P) and endo cx curettage is an aggregate of cortez-pink tissue fragments (0.4 x 0.2 x 0.2 cm). Submitted in toto in block A1. B. ?Received in formalin labelled with proper patient identification (initials N, P) and cx 9 o'clock is a single pink-cortez tissue fragment (0.4 x 0.2 x 0.2 cm). Submitted intact in block B1. AMARA Sage (ASCP) 04/12/2017 8:27 AM End of Report [facility] 04/11/2017 19:0 8 EDT 04/11/2017 19:08 EDT Madison Jean MD PATHOLOGY ORDERABLES Performing Organization Address City/State/[facility] Co de Phone Number [facility] [address] [place] [address] documented in this encounter Visit Diagnoses Not on filedocumented in this encounter Care Teams Family Physician Relationship Specialty Start Date End Date Unknown, Provider, PCP - General 08/16/09 09/09/19 documented as of this encounter
--- OUTSIDE RECORDS SUMMARY | 2024-03-27 20:57 | XMS_ITS | Encounter Summary ---
Author Organization [facility] Address [address] [place] [address] Care Team Providers Care Roll Coverer Name Role Phone Unknown, Provider Primary Care Provider [phone] Encounter Details Date Type Department Care Team (Latest Contact Info) Description 02/09/2017 10:13 EDT - 02/09/2017 10:17 EDT Hospital Encounter [facility] - [address] [address] Madison Aguilera MD [address] [place] [address],[address] [address] Unknown, Provider, Discharge Disposition: Home or Self [...] Take 1 Tablet by mouth daily. 08/19/2009 oehliljq-nzuc-IH-calcium-m ins 18 mg iron-400 mcg-500 mg Ca tablet Take by mouth. 08/19/2009 documented as of this encounter Discharge Disposition Disposition Code Departure Means Destination Home or Self Care documented in this encounter Plan of Treatment Upcoming Encounters Date Type Department Care Team (Late st Contact Info) Description 12/17/2024 13:00 EDT Office Visit [facility] Dermatology [address] [place] [address] Maci Rand MD [address] [place] [address] [address] [place] [address] documented as of this encounter Visit Diagnoses Not on filedocumented in this encounter Care Teams Roll Coverer Relationship Specialty Start Date End Date Unknown, Provider, PCP - General 08/16/09 09/09/19 documented as of this encounter
--- OUTSIDE RECORDS SUMMARY | 2024-03-27 20:57 | XMS_ITS | Encounter Summary ---
Author Organization [facility] Address [address] [place] [address] Care Team Providers Care Behavior Analyst Name Role Phone Unknown, Provider Primary Care Provider [phone] Reason for Referral * Consult (Routine/Next Available) - Specialty Report Received Specialty Diagnoses / Procedures Referred By [facility] Referred To Contact Dermatology Diagnoses Rash Pasha Wood MD [facility] Rheumatology [address] [place] [address] [place] [address] [facility] Dermatology [address] [place] [address] Referral ID Status Reason Start Date Expiration Date Visits Requested Visits Authorized [id number] Specialty Report Received Specialty Services Required 9 1 1 Question Answer Reason for Request: Facial rash; Question: could be be from an autoimmune cause? 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 Encounter Details Date Type Department Care Team (Late st Contact Info) Description 07/17/2019 Telephone [facility] [address] [place] [address] Pasha Wood MD [facility] Rheumatology [address] [place] [address] [place] [phone] Referral Request (LVM patient looking to get referral for Dermatology) Social History Tobacco Use Types Packs/Day Years Used Date Smoking Tobacco: Never Smokeless Tobacco: Never Sex and Gender Information Value Date Recorded Sex Assigned at Not on file Gender Identity Female 10/14/2021 11:22 EDT Sexual Orientation Not on file documented as of this encounter Miscellaneous Notes * Telephone Encounter - Jennifer Pitts RN - 07/21/2019 0826 EST Referral placed to [facility]. * Telephone Encounter - Jennifer Pitts RN - 07/17/2019 1551 EST Kathy is asking for a referral to [facility] for evaluation of a rash that she has on her nasolabial folds and also she gets rashes on her face from her skin cleansers and lotions. [facility] and felt that they dismissed her concerns. * Telephone Encounter - Jennifer Pitts RN - 07/17/2019 1340 EST M for Page to call back and relay whay she wants derm referral and where she would like to go. documented in this encounter Plan of Treatment Upcoming Encounters Date Type Department Care Team (Late st Contact Info) Description 12/17/2024 13:[address] [facility] Dermatology [address] [place] [address], [place] [address] Maci Rand MD [address] [place] [address], [facility] [address] [place] [address] Scheduled Referrals Name Type Priority Associated Diagnoses Order Schedule AMB CONS/FOLLOW UP DERMATOLOGY Outpatient Referral Routine Rash Ordered: 07/21/2019 documented as of this encounter Visit Diagnoses Diagnosis Rash- Primary Rash and other nonspecific skin eruption documented in this encounter Care Teams Behavior Analyst Relationship Specialty Start Date End Date Unknown, Provider, PCP - General 08/16/09 09/09/19 documented as of this encounter
--- OUTSIDE RECORDS SUMMARY | 2024-03-27 20:57 | XMS_ITS | Encounter Summary ---
Author Organization [facility] Address [address] [place] [address] Care Team Providers Care Executive Communications Manager Name Role Phone Unknown, Provider Primary Care Provider [phone] Encounter Details Date Type Department Care Team (Late st Contact Info) Description 03/31/2014 Results Only [facility] [phone] Madison Jean MD [address] [place], [place] [phone] [address] Social History Tobacco Use Types Packs/Day Years Used Date Smoking Tobacco: Never Assessed Sex and Gender Information Value Date Recorded Sex Assigned at Not on file Gender Identity Female 10/14/2021 11:22 EDT Sexual Orientation Not on file documented as of this encounter Plan of Treatment Upcoming Encounters Date Type Department Care Team (Late st Contact Info) Description 12/17/2024 13:00 EDT Office Visit [facility] Dermatology [address] [facility], [place] [address] Maci Rand MD [address] [facility], Level [address] [place] [phone] documented as of this encounter Procedures Procedure Name Priority Date/Time Associated Diagnosis Comments SURGICAL PATHOLOGY Routine 03/31/2014 10 :15 EDT documented in this encounter Results * SURGICAL PATHOLOGY (03/31/2014 10:15 EDT) Pathology Report: SURGICAL PATHOLOGY REPORT Reports generated via electronic interface contain original data; however they are lacking the format of the original report. Caution should be taken when reading/interpreting unformatted reports. Name: ? PAGE KATZ ? Accession #: ? [id number] ? : ? 1950 (Age: 63) ??F ? Collect Date: ? 03/31/2014 ? Location: ? [facility] ? Receive Date: ? 04/01/2014 ? Provider: MADISON JEAN MD Copy to: JAMEEL PEREIRA MD ? Final Pathologic Diagnosis: ENDOMETRIUM, BIOPSY: - ??Fragments of endometrial polyp with focal complex hyperplasia. ??See comment. - ??Stromal breakdown. Comment: ? E M Assembler sections of this case were reviewed at the intradepartmental consultation conference. ??Definitive cytologic atypia is not seen. Document reviewed and electronically signed by: DENNISE AARON MD Report ??Date: 04/02/2014 16:41 By the signature above, the attending physician certifies that he/she has personally conducted a gross and/or microscopic examination of the described specimens and rendered or confirmed the above diagnosis. Specimen(s) Received: Endometrial bx Clinical History: Postmenopausal bleeding Gross Description: ? Received in formalin labelled with proper patient identification (initials N, P) and endometrium is an aggregate of cortez-red and pink-cortez tissue fragments admixed with mucus (2.0 x 2.5 x 0.3 cm). Submitted in toto in 1. Irma [place] 04/01/2014 10:42 AM End of Report [facility] 03/31/2014 10:1 5 EDT 04/01/2014 10:15 EDT Madison Jean MD PATHOLOGY ORDERABLES Performing Organization Address City/State/[facility] Co de Phone Number [facility] [address] [place] [address] documented in this encounter Visit Diagnoses Not on filedocumented in this encounter Care Teams Executive Communications Manager Relationship Specialty Start Date End Date Unknown, Provider, PCP - General 08/16/09 09/09/19 documented as of this encounter
--- OUTSIDE RECORDS SUMMARY | 2024-03-27 20:57 | XMS_ITS | Encounter Summary ---
Author Organization [facility] Address [address] [place] [address] Care Team Providers Care Data Analysis Manager Name Role Phone Unknown, Provider Primary Care Provider Encounter Details Date Type Department Care Team (Latest Contact Info) Description 04/22/2014 11:19 EDT - 04/22/2014 23:59 EDT Hospital Encounter [address] [address] Unknown, Provider, Discharge Disposition: Home or Self [...] Take 1 Tablet by mouth daily. 08/19/2009 fwfgdjmz-ljyr-RG-calcium-m ins 18 mg iron-400 mcg-500 mg Ca tablet Take by mouth. 08/19/2009 documented as of this encounter Discharge Disposition Disposition Code Departure Means Destination Home or Self Nursing Home documented in this encounter Plan of Treatment Upcoming Encounters Date Type Department Care Team (Late st Contact Info) Description 12/17/2024 13:[address] [facility] Dermatology [address] [facility], [place], [place] [address] Maci Rand MD [address] [facility], Level [address] [place] [address] documented as of this encounter Visit Diagnoses Not on filedocumented in this encounter Care Teams Data Analysis Manager Relationship Specialty Start Date End Date Unknown, Provider, PCP - General 08/16/09 09/09/19 documented as of this encounter
--- OUTSIDE RECORDS SUMMARY | 2024-03-27 20:57 | XMS_ITS | Encounter Summary ---
Author Organization [facility] Address [address] [place] [address] Care Team Providers Care Ceramics Instructor Name Role Phone Unknown, Provider Primary Care Provider [phone] Encounter Details Date Type Department Care Team (Latest Contact Info) Description 03/31/2014 16:18 EDT - 03/31/2014 23:59 EDT Hospital Encounter [address] [address] Unknown, Provider, Discharge Disposition: Home or Self [...] Take 1 Tablet by mouth daily. 08/19/2009 bifepubk-vufd-BA-calcium-m ins 18 mg iron-400 mcg-500 mg Ca tablet Take by mouth. 08/19/2009 documented as of this encounter Discharge Disposition Disposition Code Departure Means Destination Home or Self Penitentiary documented in this encounter Plan of Treatment Upcoming Encounters Date Type Department Care Team (Late st Contact Info) Description 12/17/2024 13:00 EDT Office Visit [facility] Dermatology [address] [facility], [place], [place] [address] Maci Rand MD [address] [facility], [address] [place] [address] documented as of this encounter Visit Diagnoses Not on filedocumented in this encounter Care Teams Ceramics Instructor Relationship Specialty Start Date End Date Unknown, Provider, PCP - General 08/16/09 09/09/19 documented as of this encounter
--- OUTSIDE RECORDS SUMMARY | 2024-03-27 20:57 | XMS_ITS | Encounter Summary ---
Author Organization [facility] Address [address] [place] [address] Care Team Providers Care Constitutional Law Professor Name Role Phone Unknown, Provider Primary Care Provider Encounter Details Date Type Department Care Team (Late st Contact Info) Description 04/16/2018 Results Only [facility] [phone] Madison Jean MD [address] [place], [place] [phone] [address] Social History Tobacco Use Types Packs/Day Years Used Date Smoking Tobacco: Never Assessed Sex and Gender Information Value Date Recorded Sex Assigned at Not on file Gender Identity Female 10/14/2021 11:22 EDT Sexual Orientation Not on file documented as of this encounter Plan of Treatment Upcoming Encounters Date Type Department Care Team (Late st Contact Info) Description 12/17/2024 13:00 EDT Office Visit [facility] Dermatology [address] [facility], [place] [address] Maci Rand MD 111 [facility], [facility] 5 [place] [address] documented as of this encounter Procedures Procedure Name Priority Date/Time Associated Diagnosis Comments PAP TEST- RESULT ONLY Routine 04/16/2018 0:00 EDT documented in this encounter Results * PAP TEST- RESULT ONLY (04/16/2018 0:00 EDT) Pathologist [facility] Pathology Report: CYTOPATHOLOGY REPORT Reports generated via electronic interface contain original data; however they are lacking the format of the original report. Caution should be taken when reading/interpreti ng unformatted reports. Name: ? PAGE KATZ ? Accession #: ? [id number] ? : ? 1950 (Age: 67) ??F ?Collect Date: ? 04/16/2018 ? Location: ? [facility] ? Receive Date: ? 04/17/2018 ? Provider: MADISON JEAN MD Copy to: KENDY HACKETT MD ? Final Report SPECIMEN ADEQUACY ? Satisfactory for Evaluation - transformation zone component present GENERAL CATEGORIZATION ? Negative for Intraepithelial Lesion or Malignancy ?? Hormonal/Contracep tive status: Yes: Vaginal estrogen Previous Gynecologic Pathology: JOEY I: HO HPV: HO Treatment History: Hysterectomy: Supracervical Specimen/Source: ??Pap Test, Cervix/Endocervix, ThinPrep Imaging System with manual evaluation Document reviewed and electronically signed by: ? GILLES Barnett(ASCP) ? Report ??Date: 04/23/2018 09:30 HPV with Pap Test ? Date Ordered: ? 04/22/2018 ? Status: ?? Signed Out ?Date Complete: ? 04/24/2018 ? By: ??System Interface ? Date Reported: ? 04/24/2018 ? Interpretation RESULT: Negative for HPV. No E6 or E7 mRNA is detected from HPV types 16,18,31,33,35, 39,45,51,52,56,58, 59,66, and 68 by fagot maker mediated amplification. Comments Document reviewed and electronically signed by: ? System Interface ? Report date: 04/24/2018 By the signature above, the attending physician certifies that he/she has personally conducted a gross and/or microscopic examination of the described specimens and rendered or confirmed the above diagnosis. End of Report [facility] 04/16/2018 04/17/2018 Madisno Jean MD PATHOLOGY ORDERABLES [facility] [address] [place] [address] documented in this encounter Visit Diagnoses Not on filedocumented in this encounter Care Teams Constitutional Law Professor Relationship Specialty Start Date End Date Unknown, Provider, PCP - General 08/16/09 09/09/19 documented as of this encounter
--- OUTSIDE RECORDS SUMMARY | 2024-03-27 20:57 | XMS_ITS | Encounter Summary ---
Author Organization [facility] Address [address] [place] [address] Care Team Providers Care Singing Messenger Name Role Phone Unknown, Provider Primary Care Provider [phone] Encounter Details Date Type Department Care Team (Late st Contact Info) Description 12/25/2012 Results Only [facility] Laboratory Services - [facility] ([address] [phone] Misael Bhatia MD Social History Tobacco Use [...] EDT Office Visit [facility] D[place]atology [address] [place] [address], [place], [place] [address] Maci Rand MD 111 [facility], [facility] [address] [place] [address] documented as of this encounter Procedures Procedure Name Priority Date/Time Associated Diagnosis Comments CYTOPATHOLOGY Routine 12/25/2012 0:00 EDT documented in this encounter Results * CYTOPATHOLOGY (12/25/2012 0:00 EDT) Pathology Report: CYTOPATHOLOGY REPORT Reports generated via electronic interface contain original data; however they are lacking the format of the original report. Caution should be taken when reading/interpreti ng unformatted reports. Name: ? PAGE KATZ ? Accession #: ? [id number] : ? 1950 (Age: 62) ??F ?Collect Date: ? 12/25/2012 Location: ? [facility] ? Receive Date: ? 12/26/2012 Provider: ? MISAEL BHATIA MD Copy to: ? CYTOLOGIC DIAGNOSIS: ? Urine, collection method not stated, cytologic evaluation: 1. ?No malignant cells identified. 2. ? Scattered urothelial cells and benign squamous component present. 3. ? Background of mild acute inflammation and red blood cells noted. Document reviewed and electronically signed by: ? DAVID DAHL MD Report Date: ??12/27/2012 14:36 By the signature above, the attending physician certifies that he/she has personally conducted a gross and/or microscopic examination of the described specimens and rendered or confirmed the above diagnosis. Specimen Type: ? Urine, NOS Clinical History: ? Clinical diagnosis code: 599.72 ? Gross Description: ? 20 ccs of clear yellow fluid were received and processed by selective cellular enhancement technique. ? End of Report [facility] 12/25/2012 12/26/2012 8:3 1 EDT Misael Bhatia MD PATHOLOGY ORDERABLES [facility] [address] [place] [address] documented in this encounter Visit Diagnoses Not on filedocumented in this encounter Care Teams Singing Messenger Relationship Specialty Start Date End Date Unknown, Provider, PCP - General 08/16/09 09/09/19 documented as of this encounter
--- OUTSIDE RECORDS SUMMARY | 2024-03-27 20:57 | XMS_ITS | Encounter Summary ---
Author Organization [facility] Address [address] [place] [address] Care Team Providers Care Sole Cutter Name Role Phone Unknown, Provider Primary Care Provider [phone] Encounter Details Date Type Department Care Team (Late st Contact Info) Description 10/05/2016 Historical Results Only [facility] [place] [phone] Pasha Wood MD [address] [place] [address] Social History Tobacco Use Types Packs/Day Years Used Date Smoking Tobacco: Never Assessed Sex and Gender Information Value Date Recorded Sex Assigned at Not on file Gender Identity Female 10/14/2021 11:22 EDT Sexual Orientation Not on file documented as of this encounter Plan of Treatment Upcoming Encounters Date Type Department Care Team (Late st Contact Info) Description 12/17/2024 13:00 EDT Office Visit [facility] Dermatology [address] [facility], [place] [address] Maci Rand MD 111 [facility], [facility] [address] [place] [address] documented as of this encounter Procedures Procedure Name Priority Date/Time Associated Diagnosis Comments VIT D, 25-HYDROXY - [facility] Routine 10/05/2016 13:01 EST C REACTIVE PROTEIN Routine 10/05/2016 13 :01 EST C REACTIVE PROTEIN Routine 10/05/2016 13 :01 EST COMPREHENSIVE METABOLIC PANEL (CMP) Routine 10/05/2016 13:01 EST documented in this encounter Results * (ABNORMAL) VIT D, 25-HYDROXY - [facility] (10/05/2016 13:01 EST) VIT D, 25 HYDROXY - [facility] 18(L) 30 - 100 ng/ml 10/05/2016 17:04 EST [facility] Comment: ? 25-Hydroxy D Total (D2+D3) ?Expected Values Deficient: ?<10 ng/ml Insufficient: ? 10-29 ng/ml Sufficient: ? 30-100 ng/ml Potential intoxication: >100 ng/ml 10/05/2016 13:0 1 EST 10/05/2016 13:01 EST Narrative [facility] - 10/05/2016 17:04 EST AOT: 10/05/16 1516: [email or web address] Does PT Have a Latex Allergy? NO Pasha Wood MD CHEMISTRY & BLOOD GA S ORDERABLES [facility] * (ABNORMAL) C REACTIVE PROTEIN (10/05/2016 13:01 EST) C-Reactive Protein 6.38(H) 0.0 - 3.0 mg/L 10/05/2016 15:34 EST [facility] 10/05/2016 13:0 1 EST 10/05/2016 13:01 EST Narrative [facility] - 10/05/2016 17:04 EST AOT: 10/05/16 1516: [email or web address] Does PT Have a Latex Allergy? NO Pasha Wood MD CHEMISTRY & BLOOD GA S ORDERABLES [facility] * (ABNORMAL) COMPREHENSIVE METABOLIC PANEL (CMP) (10/05/2016 13:01 [facility]) Albumin % 3.5 3.4 - 5.0 g/dL 10/05/2016 15:34 [facility] ALKALINE PHOSPHATASE - [facility] 80 41 - 126 U/L 10/05/2016 15:34 [facility] BILIRUBIN TOTAL 0.6 0.0 - 1.0 mg/dL 10/05/2016 15:34 [facility] BUN - [facility] 11 7 - 18 mg/dL 10/05/2016 15:34 [facility] CALCIUM - [facility] 9.2 8.5 - 10.1 mg/dL 10/05/2016 15:34 [facility] Chloride 108(H) 98 - 107 mEq/L 10/05/2016 15:34 [facility] CO2 Total 28 21 - 32 mEq/L 10/05/2016 15:34 [facility] CREATININE 0.66 0.5 - 1.3 mg/dL 10/05/2016 15:34 [facility] eGFR >60 10/05/2016 15:34 [facility] Comment: Chronic renal impairment is defined as GFR <60 Multiply result by 1.210 for patients. eGFR calculated using the IDMS-traceable MDRD Study Equation. ??(effective 06/01/2014) Anion Gap 7 5 - 15 10/05/2016 15:34 [facility] GLUCOSE - [facility] 75 70 - 100 mg/dL 10/05/2016 15:34 [facility] Potassium 3.9 3.5 - 5.0 mEq/L 10/05/2016 15:34 [facility] Sodium 143 135 - 145 mEq/L 10/05/2016 15:34 [facility] TOTAL PROTEIN - [facility] 6.7 6.4 - 8.2 gm/dl 10/05/2016 15:34 [facility] SGOT/AST - [facility] 27 10 - 37 U/L 10/05/2016 15:34 EST [facility] SGPT/ALT - [facility] 38 12 - 78 U/L 10/05/2016 15:34 EST [facility] 10/05/2016 13:0 1 EST 10/05/2016 13:01 EST Narrative [facility] - 10/05/2016 17:04 EST AOT: 10/05/16 1516: [email or web address] Does PT Have a Latex Allergy? NO Pasha Wood MD CHEMISTRY & BLOOD GA S ORDERABLES [facility] * (ABNORMAL) C REACTIVE PROTEIN (10/05/2016 13:01 EST) SED RATE [facility] 22(H) 1 - 17 mm/hr 10/05/2016 14:29 EST [facility] 10/05/2016 13:0 1 EST 10/05/2016 13:01 EST Narrative [facility] - 10/05/2016 14:29 EST Does PT Have a Latex Allergy? NO Pasha Wood MD CHEMISTRY & BLOOD GA S ORDERABLES [facility] documented in this encounter Visit Diagnoses Not on filedocumented in this encounter Care Teams Sole Cutter Relationship Specialty Start Date End Date Unknown, Provider, PCP - General 08/16/09 09/09/19 documented as of this encounter
--- OUTSIDE RECORDS SUMMARY | 2024-03-27 20:57 | XMS_ITS | Encounter Summary ---
Author Organization [facility] Address [address] [place] [address] Care Team Providers Care Veterans Contact Representative Name Role Phone Unknown, Provider Primary Care Provider Encounter Details Date Type Department Care Team (Late st Contact Info) Description 03/13/2014 Results Only [facility] Laboratory Services - [facility] ([facility]) [address] [place], [place] [id number] Bell Pereira MD [address] [place] [address] [place] [address] Social History Tobacco Use Types Packs/Day Years Used Date Smoking Tobacco: Never Assessed Sex and Gender Information Value Date Recorded Sex Assigned at Not on file Gender Identity Female 10/14/2021 11:22 EDT Sexual Orientation Not on file documented as of this encounter Plan of Treatment Upcoming Encounters Date Type Department Care Team (Late Contact Info) Description 12/17/2024 13:00 EDT Office Visit [facility] [address] [place] [address] Maci Rand MD [address] [facility], [facility] [address] [place] [address] documented as of this encounter Procedures Procedure Name Priority Date/Time Associated Diagnosis Comments PAP TEST- RESULT ONLY Routine 03/13/2014 0:00 EDT documented in this encounter Results * PAP TEST- RESULT ONLY (03/13/2014 0:00 EDT) Pathology Report: CYTOPATHOLOGY REPORT Reports generated via electronic interface contain original data; however they are lacking the format of the original report. Caution should be taken when reading/interpreti ng unformatted reports. Name: ? PAGE KATZ ? Accession #: ? [id number] ? : ? 1950 (Age: 63) ??F ?Collect Date: ? 03/13/2014 ? Location: ? [facility] ? Receive Date: ? 03/16/2014 ? Provider: BELL PEREIRA MD Copy to: ? Final Report SPECIMEN ADEQUACY ? Satisfactory for Evaluation - transformation zone component present GENERAL CATEGORIZATION ? Epithelial Cell Abnormality INTERPRETATION ? Squamous Cell Abnormality - Atypical squamous cells, undetermined significance (ASC-US). EDUCATIONAL NOTES/RECOMMENDATI ONS ? [facility] recommends following ASCCP's 2012 Updated Consensus Guidelines for the Management of Abnormal Cervical Cancer Screening Tests and Cancer Precursors (JLGTD, 2013; 17(5):S1-S27). ??Consensus guidelines are available online at www.asccp.org. Last Menstrual Period: Spotting Hormonal/Contracep tive status: Yes: Levothyroxine Previous Gynecologic Pathology: Yes: Abnormal paps in the past Other: Post menopausal bleeding Specimen/Source: ??Pap Test, Cervix/Endocervix, ThinPrep Imaging System with manual evaluation Document reviewed and electronically signed by: ? DORIAN CABCH ? Report ??Date: 03/23/2014 17:40 HPV with Pap Test ? Date Ordered: ? 03/23/2014 ? Status: ?? Signed Out ?Date Complete: ? 03/25/2014 ? By: ??System Interface ? Date Reported: ? 03/25/2014 ? Interpretation RESULT: Negative for HPV. No E6 or E7 mRNA is detected from HPV types 16,18,31,33,35, 39,45,51,52,56,58, 59,66, and 68 by soda jerker mediated amplification. Comments Document reviewed and electronically signed by: ? System Interface ? Report date: 03/25/2014 By the signature above, the attending physician certifies that he/she has personally conducted a gross and/or microscopic examination of the described specimens and rendered or confirmed the above diagnosis. End of Report [facility] 03/13/2014 03/16/2014 Bell Pereira MD PATHOLOGY ORDERABLES [facility] [address] [place] [address] documented in this encounter Visit Diagnoses Not on filedocumented in this encounter Care Teams Veterans Contact Representative Relationship Specialty Start Date End Date Unknown, Provider, PCP - General 08/16/09 09/09/19 documented as of this encounter
--- OUTSIDE RECORDS SUMMARY | 2024-03-27 20:57 | XMS_ITS | Encounter Summary ---
Author Organization [facility] Address [address] [place] [address] Care Team Providers Care Rotary Drier Feeder Name Role Phone Unknown, Provider Primary Care Provider [phone] Reason for Referral * PT/OT/ST (Routine) - Closed Specialty Diagnoses / Procedures [facility] Therap[facility] Diagnoses Seronegative rheumatoid arthritis ([facility] Pasha Wood MD [facility] Rheumatology [address] [place] [address] [place] [phone] [facility] [place] [facility] [address] [place] [id number] Referral ID Status Reason Start Date Expiration Date V isits Requested Visits Authorized [id number] Closed Specialty Services Required 06/19/2019 1 1 Question Answer Reason for Request: Requesting aquatic therapy and machine exercises for balance, stamina, weight loss, pain control Practice Site (External Referral Only): [facility] PT Reason for Visit * Reason Comments Rheumatoid Arthritis Follow up. Patient states she has been a lot of pain lately. Patient states the pain has been all over her body. Encounter Details Date Type Department Care Team (Late st Contact Info) Description 06/19/2019 10:30 EST Office Visit [facility] Rheumatology [address] [place] [address] Pasha Wood MD [facility] Rheumatology [address] [place] [address] [place] [phone] Seronegative rheumatoid arthritis ([facility]) (Primary Dx); Vitamin D deficiency Social History Tobacco Use Types Packs/Day Years Used Date Smoking Tobacco: Never Smokeless Tobacco: Never Sex and Gender Information Value Date Recorded Sex Assigned at Not on file Gender Identity Female 10/14/2021 11:22 EDT Sexual Orientation Not on file documented as of this encounter Last Filed Vital Signs Vital Sign Reading Time Taken Comments Blood Pressure 128/76 06/19/2019 1037 EST Pulse 68 06/19/2019 1037 EST Temperature - - Respiratory Rate - - Oxygen Saturation - - Inhaled Oxygen Concentration - - Weight 97.1 kg (214 lb) 06/19/2019 1037 EST Height 158.8 cm (5' 2.5) 06/19/2019 1037 EST Body Mass Index 38.52 06/19/2019 1037 EST documented in this encounter Patient Instructions * Patient Instructions* Pasha Wood MD - 06/19/2019 10:30 EST Images from the original note were not included. Next lab testing early July 2019. Will add CRP onto standing orders. [facility] Patient Instructions Foot Pain: Care Instructions Your Care Instructions Foot injuries that cause pain and swelling are fairly common. Almost all sports or home repair projects can cause a misstep that ends up as foot pain. Normal wear and tear, especially as you get older, also can cause foot pain. Most minor foot injuries will heal on their own, and home treatment is usually all you need to do. If you have a severe injury, you may need tests and treatment. Follow-up care is a barry part of your treatment and safety. Be sure to make and go to all appointments, and call your doctor if you are having problems. It's also a good idea to know your test resultsand keep a list of the medicines you take. How can you care for yourself at home? ?? Take pain medicines exactly as directed. ? If the doctor gave you a prescription medicine for pain, take it as prescribed. ? If you are not taking a prescription pain medicine, ask your doctor if you can take an lvid-lxf-pxzfehb medicine. ?? Rest and protect your foot. Take a break from any activity that may cause pain. ?? Put ice or a cold pack on your foot for 10 to 20 minutes at a time. Put a thin cloth between theice and your skin. ?? Prop up the sore foot on a pillow when you ice it or anytime you sit or lie down during the next3 days. Try to keep it above the level of your heart. This will help reduce swelling. ?? Your doctor may recommend that you wrap your foot with an elastic bandage. Keep your foot wrapped for as long as your doctor advises. ?? If your doctor recommends crutches, use them as directed. ?? Wear roomy footwear. ?? As soon as pain and swelling end, begin gentle exercises of your foot. Your doctor can tell you which exercises will help. When should you call for help? Call 911 anytime you think you may need emergency care. For example, call if: ? Your foot turns pale, white, blue, or cold. ??Call your doctor now or seek immediate medical care if: ? You cannot move or stand on your foot. ? Your foot looks twisted or out of its normal position. ? Your foot is not stable when you step down. ? You have signs of infection, such as: ? Increased pain, swelling, warmth, or redness. ? Red streaks leading from the sore area. ? Pus draining from a place on your foot. ? A fever. ? Your foot is numb or tingly. ??Watch closely for changes in your health, and be sure to contact your doctor if: ? You do not get better as expected. ? You have bruises from an injury that last longer than 2 weeks. Where can you learn more? Go to https://www.Tributes.com.net/Axiataealth or log into your [employer] account at [email or web address] Enter D999 in the search box to learn more about Foot Pain: Care Instructions. Current as of: January 22, 2019 Content Version: 12.2 ?? 3811-3238 [employer]. Care instructions adapted under license by [facility]. If you have questions about a medical condition or this instruction, always askyour healthcare professional. [employer] disclaims any warranty or liability for youruse of this information. [facility] Patient Instructions Arch Pain: Exercises Introduction [...] to 4 times. Plantar fascia stretch (kneeling) 1. Get on your hands and knees [...] seconds. 5. Repeat 2 to 4 times. [place] pick-ups 1. Put some marbles on the [...] Where can you learn more? Go to [email or web address] [email or web address] or log into your [employer] account at [email or web address] Enter H119 in the search box to learn more about Arch Pain: Exercises. Current as of: January 22, 2019 Content Version: 12.2 ?? [id number] [employer]. Care instructions adapted under license by [facility]. If you have questions about a medical condition or this instruction, always askyour healthcare professional. [employer] disclaims any warranty or liability for youruse of this information. documented in this encounter Progress Notes * Pasha Wood MD - 06/19/2019 1030 EST [facility] Rheumatology Chief Complaint Patient presents with ??? Rheumatoid Arthritis Follow up. Patient states she has been a lot of pain lately. Patient states the pain has been all over her body. HPI: This is a scheduled follow up [...] by Dr. Dharmesh Cummings who was a ripshear operator emeritus at [employer]. He confirmed the diagnosis of polymyalgia rheumatica [...] health events. Now on 2 mg prednisone Current Outpatient Medications: acetaminophen (TYLENOL) 500 mg tablet ALPRAZolam (XANAX) 0.5 mg tablet [id number] (CALTRATE 600-D PLUS MINERALS) 600 mg calcium- 800 unit-50 mg tablet cholecalciferol, Vitamin D3, 1,000 unit tablet DULoxetine (CYMBALTA) 60 mg capsule gabapentin (NEURONTIN) 100 mg capsule hydroCHLOROthiazide (HYDRODIURIL) 12.5 mg tablet hydroxychloroquine (PLAQUENIL) 200 mg tablet levothyroxine (SYNTHROID) 125 mcg tablet losartan (COZAAR) 100 mg tablet methotrexate 2.5 mg tablet predniSONE (DELTASONE) 1 mg tablet No current facility-administered medications for this visit. Allergies include: Patient has no known allergies. Review of Systems: Currently taking MTX 20 mg weekly along with folic acid 1 mg. Also on 2 mg prednisone. On this for 3 months. Had PA for Remicade yet did not start this. She is concerned about the risk of developing malignancy. She previously used Remicade for inflammatory bowel disease. Overall energy is low. Diffuse body pain continues. HEENT: No mouth sores. No facial rash. Eye blurring as in HPI. Swelling in the fingers. Left hand fingers numb over the last month. Right sided cervcal spine pain. Left hip pain. Left knee pain with radiation to left foot. No chest pain or palpitations. No rashes. No cardiorespiratory sxs. No GI sxs. Physical Examination: BP 128/76 (BP Cuff Sizes: Adult, long) Pulse 68 Ht 158.8 cm (62.5) Wt 97.1 kg (214 lb) BMI38.52 kg/m?General appearance and movement: alert, nontoxic ?HEENT: anicteric sclerae, conjunctivae clear; no facial [...] was identified as 22 in 10/10/2012. Labs: No visits with results within 6 Month(s) from this visit. Latest known visit with results is: Results Only on 04/16/2018 Component Date Value ??? Pathology Report: 04/16/2018 Value:CYTOPATHOLOGY REPORT Reports generated via electronic interface contain original data; however they are lacking the format of the original report. Caution should be taken when reading/interpreting unformatted reports. Name: PAGE KATZ : 1950 (Age: 67) F Collect Date: 04/16/2018 Location: [facility] Receive Date: 04/17/2018 Provider: PHIL JEAN MD Copy to: KENDY HACKETT MD Final Report SPECIMEN ADEQUACY Satisfactory for Evaluation - transformation zone component present GENERAL CATEGORIZATION Negative for Intraepithelial Lesion or Malignancy Hormonal/Contraceptive status: Yes: Vaginal estrogen Previous Gynecologic Pathology: JOEY I: HO HPV: HO Treatment History: Hysterectomy: Supracervical Specime n/Source: Pap Test, Cervix/Endocervix, ThinPrep Imaging System with manual evaluation Document reviewed and electronically signed by: Elena Hartley SCT(ASCP) Report Date: 04/23/2018 09:30 HPV with Pap Test Date Ordered: 04/22/2018 Status: Signed Out Date Complete: 04/24/2018 By: System Interface Date Reported: 04/24/2018 Interpretation RESULT: Negative for HPV. No E6 or E7 mRNA is detected from HPV types 16,18,31,33,35, 39,45,51,52,56,58,59,66, and 68 by career services assistant mediated amplification. Comments Document reviewed and electronically signed by: System Interface Report date: 04/24/2018 By the signature above, the attending physician certifies that he/she has personally conducted a gross and/or microscopic examination of the described specimens and rendered or confirmed the above diagnosis. End of Report Diagnosis / Assessment: 1. Seronegative rheumatoid arthritis ([facility]) Sxs well controlled on current medication regimen. No synovitis on exam. Tolerating the addition of HCQ 200 mg daily. We will have her try to taper again off prednisone by alternating 2 mg with 1 mg and then decreasing to 1 mg. She is due for methotrexate monitoring labs. Last labs in April. We will need to check to make sure that she has standing orders. There are no extra-articular manifestations of rheumatoid arthritis. 2. Vitamin D deficiency She will continue to take Caltrate 2 tablets daily. Recommendations/Evaluation: Total eohw-ni-nzwj time: 25 minutes, >50% spent counseling on above issues. Pasha Wood MD * Gris Cazares RN - 06/19/2019 1030 EST Called [facility] lab and they found that there were 2 standing order forms,one of which only had CMP/CBC.They discarded that form and kept the one which includes CRP and ESR. Dr Wood notified and ok to wait until next labdraw/visit for CRP. documented in this encounter Plan of Treatment Upcoming Encounters Date Type Department Care Team (Late st Contact Info) Description 12/17/2024 13:00 EDT Office Visit [facility] Dermatology [address] [facility], [place] [address] Maci Rand MD [address] [place] [address], [facility] [address] [place] [phone] Scheduled Referrals Name Type Priority Associated Diagnoses Orde r Schedule AMB CONS/FOLLOW UP PHYSICAL THERAPY Outpatient Referral Routine Seronegative rheumatoid arthritis ([facility]) Ordered: 06/19/2019 documented as of this encounter Visit Diagnoses Diagnosis Seronegative rheumatoid arthritis ([facility])- Primary Rheumatoid arthritis Vitamin D deficiency Unspecified vitamin D deficiency documented in this encounter Historical Medications * This list may reflect changes made after this encounter. Medication Sig Dispensed Refills Start Date End Date cholecalciferol, Vitamin D3, 1,000 unit tablet Take 1 Tablet by mouth daily. DULoxetine (CYMBALTA) 60 mg capsule Take 1 Capsule by mouth daily. levothyroxine (SYNTHROID) 125 mcg tablet Take 1 Tablet by mouth daily. acetaminophen (TYLENOL) 500 mg tablet Take 1 Tablet by mouth 2 times daily as needed for Pain. losartan (COZAAR) 100 mg tablet Take 1 Tablet by mouth daily. hydroCHLOROthiazide (HYDRODIURIL) 12.5 mg tablet Take 2 Tablets by mouth daily. fbh-[id number]-ql ng-bor (CALTRATE 600-D PLUS MINERALS) 600 mg calcium- 800 unit-50 mg tablet Take 600 mg by mouth daily. 04/29/2020 ALPRAZolam (XANAX) 0.5 mg tablet Take 0.25 mg by mouth at bedtime as needed for Sleep. Taking 1/2 tab to 1 tab at bedtime as needed 06/21/2020 methotrexate 2.5 mg tablet Take 2.5 mg by mouth once a week. Takes 8 tabs of 2.5mg once weekly. 4 tabs in the AM and 4 tabs in the evening 08/11/2019 predniSONE (DELTASONE) 1 mg tablet Take 1 mg by mouth daily. 3 tabs of 1mg 06/28/2019 hydroxychloroquine (PLAQUENIL) 200 mg tablet Take 200 mg by mouth daily. 07/14/2019 gabapentin (NEURONTIN) 100 mg capsule Take 300 mg by mouth 2 times daily. Taking 3 caps of 100mg 09/01/2019 added in this encounter Care Teams Rotary Drier Feeder Relationship Specialty Start Date End Date Unknown, Provider, PCP - General 08/16/09 09/09/19 documented as of this encounter
--- OUTSIDE RECORDS SUMMARY | 2024-03-27 20:57 | XMS_ITS | Encounter Summary ---
Author Organization [facility] Address [address] [place] [address] Care Team Providers Care Collet Driller Name Role Phone Unknown, Provider Primary Care Provider Encounter Details Date Type Department Care Team (Late st Contact Info) Description 10/05/2016 Historical Results Only [facility] [place] [phone] Pasha Wood MD [address] [place] [address] Social History Tobacco Use Types Packs/Day Years Used Date Smoking Tobacco: Never Assessed Sex and Gender Information Value Date Recorded Sex Assigned at Not on file Gender Identity Female 10/14/2021 11:22 EDT Sexual Orientation Not on file documented as of this encounter Plan of Treatment Upcoming Encounters Date Type Department Care Team (Late st Contact Info) Description 12/17/2024 13:00 EDT Office Visit [facility] Dermatology [address] [facility], [place] [address] Maci Rand MD [address] [facility], [facility] [address] [place] [address] documented as of this encounter Procedures Procedure Name Priority Date/Time Associated Diagnosis Comments COMPLETE BLOOD COUNT WITH DIFFERENTIAL (AUTO) Routine 10/05/2016 13:01 EST documented in this encounter Results * (ABNORMAL) COMPLETE BLOOD COUNT WITH DIFFERENTIAL (AUTO) (10/05/2016 13:01 [facility]) ABSOLUTE NEUTROPHIL COUN - [facility] 8.39(H) 1.7 - 7.0 10e3/ul 10/05/2016 14:24 [facility] BASO # - [facility] 0.04 0.0 - 0.3 10e3/uL 10/05/2016 14:24 [facility] BASO % - [facility] 0 0 - 2 % 10/05/2016 14:24 [facility] EOS # - [facility] 0.16 0.05 - 0.5 10e3/uL 10/05/2016 14:24 [facility] EOS % - [facility] 2 0 - 5 % 10/05/2016 14:24 [facility] GRAN % - [facility] 81(H) 40 - 80 % 10/05/2016 14:24 [facility] HEMATOCRIT - [facility] 42.4 34.0 - 47.0 % 10/05/2016 14:24 [facility] HEMOGLOBIN - [facility] 13.5 11.2 - 15.7 g/dl 10/05/2016 14:24 [facility] IG# - [facility] 0.03 0 - 0.07 10e3/uL 10/05/2016 14:24 [facility] IG% - [facility] 0.3 0 - 0.9 % 10/05/2016 14:24 [facility] LYMPH # - [facility] 1.03 0.9 - 2.9 10e3/uL 10/05/2016 14:24 [facility] LYMPH% - [facility] 10(L) 20 - 40 % 10/05/2016 14:24 [facility] MEAN CORPUSCULAR HGB - [facility] 30.9 26 - 34 pg 10/05/2016 14:24 [facility] MEAN CORPUSCULAR HGB CONC - [facility] 31.8 31 - 36 g/dL 10/05/2016 14:24 [facility] MEAN CELL VOLUME - [facility] 97.0 77 - 100 fl 10/05/2016 14:24 [facility] MONO # - [facility] 0.76 0.3 - 0.9 10e3/uL 10/05/2016 14:24 [facility] MONO% - [facility] 7 0 - 12 % 10/05/2016 14:24 [facility] PLATELET COUNT 426(H) 150 - 400 10e3/ul 10/05/2016 14:24 [facility] RED BLOOD COUNT - [facility] 4.37 3.8 - 5.2 10e6/ul 10/05/2016 14:24 [facility] RED CELL DISTRI WIDTH - [facility] 14.7 11.8 - 15.6 % 10/05/2016 14:24 [facility] WHITE BLOOD COUNT - [facility] 10.4 3.5 - 10.5 10e3/ul 10/05/2016 14:24 [facility] 10/05/2016 13:0 1 EST 10/05/2016 13:01 EST Narrative [facility] - 10/05/2016 14:29 EST Does PT Have a Latex Allergy? NO Pasha Wood MD HEMATOLOGY & PF4 ORD ERABLES [facility] documented in this encounter Visit Diagnoses Not on filedocumented in this encounter Care Teams Collet Driller Relationship Specialty Start Date End Date Unknown, Provider, PCP - General 08/16/09 09/09/19 documented as of this encounter
--- OUTSIDE RECORDS SUMMARY | 2024-03-27 20:57 | XMS_ITS | Encounter Summary ---
Author Organization [facility] Address [address] [place] [address] Care Team Providers Care Vice Provost Name Role Phone Unknown, Provider Primary Care Provider [phone] Encounter Details Date Type Department Care Team (Late st Contact Info) Description 12/01/2015 Results Only [facility] [phone] Madison Jean MD [address] [place], [place] [id number] [address] Social History Tobacco Use Types Packs/Day Years [...] 13:00 EDT Office Visit [facility] [address] [facility], [place] [address] Maci Rand MD [address] [facility], Level [address] [place] [phone] documented as of this encounter Procedures Procedure Name Priority Date/Time Associated Diagnosis Comments SURGICAL PATHOLOGY Routine 12/01/2015 11 :01 EDT documented in this encounter Results * SURGICAL PATHOLOGY (12/01/2015 11:01 EDT) Pathology Report: SURGICAL PATHOLOGY REPORT Reports generated via electronic interface contain original data; however they are lacking the format of the original report. Caution should be taken when reading/interpreti ng unformatted reports. Name: ? PAGE KATZ ? Accession #: ? [id number] ? : ? 1950 (Age: 65) ??F ? Collect Date: ? 12/01/2015 ? Location: ? [facility] ? Receive Date: ? 12/02/2015 ? Provider: MADISON JEAN MD Copy to: KENDY HACKETT MD ? Final Pathologic Diagnosis: A. ??ENDOCERVIX, CURETTAGE: - Scant fragments of squamous mucosa with atypia. ??See comment. B. ??CERVIX, 3 O'CLOCK, BIOPSY: - Squamous mucosa with marked atrophy and reactive atypia against a background of chronic inflammation. C. ??CERVIX, 6 O'CLOCK, BIOPSY: - Squamous mucosa with marked atrophy and reactive atypia against a background of chronic inflammation. D. ??CERVIX, 7 O'CLOCK, BIOPSY: - Squamous mucosa with marked atrophy and reactive atypia against a background of chronic inflammation. Comment: The referring Pap test ([id number]) has been reviewed. ??A diagnosis of low grade squamous intraepithelial lesion, cannot rule out high grade or atypical squamous cells cannot rule out high grade is favored. ??The atypical cells on the Pap test are similar to the degenerative atypical cells seen on the series of biopsies. There is no evidence of squamous intraepithelial lesion nor an invasive process. Deeper levels have been reviewed.. ??This case is reviewed in consultation by Drs. Estrella Campos and Chi Bangura, who agree with the findings. Results discussed with Dr. Madison Rey on 12/08/2015. (Dr. Nagy)/[facility] Document reviewed and electronically signed by: BETTINA NAGY MD Report ??Date: 12/08/2015 15:49 By the signature above, the attending physician certifies that he/she has personally conducted a gross and/or microscopic examination of the described specimens and rendered or confirmed the above diagnosis. Specimen(s) Received: A. ??ECC B. ??3 C. ??6 D. ??7 Clinical History: HGSIL Pap after supracervical hysterectomy for endometrial cancer Gross Description: A. ?Received in formalin labelled with proper patient identification (initials N, P) and endocx is an aggregate of cloudy mucinous tissue (1.2 x 0.8 x 0.3 cm). The specimen is submitted entirely in A1. B. ?Received in formalin labelled with proper patient identification (initials N, P) and cx 3 o'clock is a single fragment of cortez-pink pearly tissue (0.3 x 0.2 x 0.2 cm). The specimen is submitted entirely in B1. C. ?Received in formalin labelled with proper patient identification (initials N, P) and cx 6 o'clock is a single fragment of cortez-pink pearly tissue (0.3 x 0.2 x 0.1 cm). The specimen is submitted entirely in C1. D. ?Received in formalin labelled with proper patient identification (initials N, P) and cx 7 o'clock are two fragments of cortez-pink pearly tissue (each 0.2 x 0.2 x 0.1 cm). The specimens are submitted entirely in D1. 12/02/2015 11:38 AM End of Report [facility] 12/01/2015 11:0 1 EDT 12/02/2015 11:01 EDT Madison Jean MD PATHOLOGY ORDERABLES [facility] [address] [place] [address] documented in this encounter Visit Diagnoses Not on filedocumented in this encounter Care Teams Vice Provost Relationship Specialty Start Date End Date Unknown, Provider, PCP - General 08/16/09 2 documented as of this encounter
--- OUTSIDE RECORDS SUMMARY | 2024-03-27 20:57 | XMS_ITS | Encounter Summary ---
Author Organization [facility] Address [address] [place] [address] Care Team Providers Care Concrete Inspector Name Role Phone Unknown, Provider Primary Care Provider Encounter Details Date Type Department Care Team (Late st Contact Info) Description 07/14/2019 Orders Only [facility] Rheumatology [address] [place] [address] Gris Cazares RN Social History Tobacco Use Types Packs/Day Years Used Date Smoking Tobacco: Never Smokeless Tobacco: Never Sex and Gender Information Value Date Recorded Sex Assigned at Not on file Gender Identity Female 10/14/2021 11:22 EDT Sexual Orientation Not on file documented as of this encounter Ordered Prescriptions Prescription Sig Dispensed Refills Start Date End Da te hydroxychloroquine (PLAQUENIL) 200 mg tablet Take 1 Tab by mouth daily. 90 Tab 1 07/14/2019 04/29/2020 documented in this encounter Progress Notes * Gris Cazares RN - 07/14/2019 2104 EST Last visit notes reviewed and follow up noted.Refill sent as noted. documented in this encounter Plan of Treatment Upcoming Encounters Date Type Department Care Team (Late st Contact Info) Description 12/17/2024 13:00 EDT Office Visit [facility] Dermatology [address] [facility], [place] [address] Maci Rand MD [address] [facility] [address] [place] [phone] documented as of this encounter Visit Diagnoses Not on filedocumented in this encounter Discontinued Medications Medication Sig Discontinue Reason Start Date End Da te hydroxychloroquine (PLAQUENIL) 200 mg tablet Take 200 mg by mouth daily. Reorder 07/14/2019 documented as of this encounter Care Teams Concrete Inspector Relationship Specialty Start Date End Date Unknown, Provider, PCP - General 08/16/09 09/09/19 documented as of this encounter
--- OUTSIDE RECORDS SUMMARY | 2024-03-27 20:57 | XMS_ITS | Encounter Summary ---
Author Organization [facility] Address [address] [place] [address] Care Team Providers Care Hazardous Waste Remover Name Role Phone Unknown, Provider Primary Care Provider [phone] Encounter Details Date Type Department Care Team (Late st Contact Info) Description 03/14/2018 Historical Results Only [facility] Radiology Results [address] [place] [id number] Pasha Govea, [facility] [address] [place], [place] [phone] Social History Tobacco Use Types Packs/Day Years Used Date Smoking Tobacco: Never Assessed Sex and Gender Information Value Date Recorded Sex Assigned at Not on file Gender Identity Female 10/14/2021 11:22 EDT Sexual Orientation Not on file documented as of this encounter Plan of Treatment Upcoming Encounters Date Type Department Care Team (Late st Contact Info) Description 12/17/2024 13:00 EDT Office Visit [facility] Dermatology [address] [facility], [facility] [address] [place], [place] [address] Maci Rand MD [address] [facility], [facility] [address] [place] [phone] documented as of this encounter Procedures Procedure Name Priority Date/Time Associated Diagnosis Comments XR FOOT RIGHT 1-2 VIEWS 03/14/2018 21:33 EDT XR FOOT LEFT 3 OR MORE VIEWS 03/14/2018 21:29 EDT documented in this encounter Results * XR FOOT RIGHT 1-2 VIEWS (03/14/2018 21:33 EDT) Anatomical Region Laterality Modality Lower Extremities Right Other 03/14/2018 21:3 3 EDT Narrative 03/14/2018 21:36 EDT ? EXAM: RADIOLOGY/FOOT RIGHT 2 VIEW ? EX. D/ (1111) ? CLINICAL INFORMATION: ? 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 INDICATION: ? 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 BONE SPUR ? TECHNIQUE: ??2 views of the right foot ? COMPARISON: None. ? FINDINGS: There is moderate/severe degenerative osteoarthritis at the ? 1st MTP joint. Additional forefoot osteoarthritis is present at the ? polyarticular PIP and DIP joints. Mild midfoot arthrosis is also ? noted. ? Scattered foci of mineralization projecting over the plantar plantar ? fascia are compatible with degeneration. A small enthesophyte is also ? present at the Achilles tendon and insertion. ? No acute osseous abnormality is identified. ? IMPRESSION: ? 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 ? REPORT SIGNED IN OTHER VENDOR SYSTEM 03/14/2018 ?Reported By: Maurice Liu MD ? CC: ? Transcribed Date/Time: 03/14/2018 (2136) ? Bath Mix Operator: ? Printed Date/Time: 01/18/2019 (1121) ? PAGE 1 ? Signed Report ? Procedure Note Maurice Liu MD - 06/05/2019 EXAM: RADIOLOGY/FOOT RIGHT 2 VIEW EX. 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 FINDINGS: There is moderate/severe degenerative osteoarthritis atthe 1st MTP joint. Additional forefoot osteoarthritis is present at the polyarticular PIP and DIP joints. Mild midfoot arthrosis is also noted. Scattered foci of mineralization projecting over the plantarplantar fascia are compatible with degeneration. A small enthesophyte isalso present at the Achilles tendon and insertion. No acute osseous abnormality is identified. IMPRESSION: Osteoarthritis, most advanced at the 1st MTP joint. REPORT SIGNED IN OTHER VENDOR SYSTEM 03/14/2018 Reported By: Maurice Liu MD CC: Transcribed Date/Time: 03/14/2018 (8542) Bath Mix Operator: Printed Date/Time: 01/18/2019 (1121) PAGE 1 Signed Report Pasha Govea DPDaphne IMG DIAGNOSTIC IMAG ING ORDERABLES * XR FOOT LEFT 3 OR MORE VIEWS (03/14/2018 21:29 EDT) Anatomical Region Laterality Modality Lower Extremities Left Other 03/14/2018 21:2 9 EDT Narrative 03/14/2018 21:32 EDT ? EXAM: RADIOLOGY/FOOT LEFT 2 VIEW ?EX. D/ (1111) ? CLINICAL INFORMATION: ? OSTEOPHYTOSIS M25.70 ? INDICATION: OSTEOPHYTOSIS M25.70 LARGE TOE LEANING , BONE SPUR ? TECHNIQUE: 2 views of the left foot. ? COMPARISON: None. ? Findings: The left foot demonstrates mild/moderate degenerative ? change at the 1st MTP joint. Hypertrophic osteoarthritis is also ? present at the midfoot, as noted on the lateral lateral projection. ? This appears focused at the 1st tarsometatarsal joint. A plantar ? calcaneal spur is present and there is enthesopathic change at the ? Achilles tendon insertion with additional foci of mineralization ? within the distal Achilles tendon, likely degenerative tendinopathy. ? No acute fracture is detected. Mild/moderate forefoot osteoarthritis ? present. ? IMPRESSION: ? 1. Osteoarthritis. Proliferative osteophyte formation is most ? prominent at the dorsal aspect of the midfoot, likely at the 1st TMT ? joint. ? 2. Plantar calcaneal spur. ? 3. Insertional Achilles tendinopathy. ? REPORT SIGNED IN OTHER VENDOR SYSTEM 03/14/2018 ?Reported By: Maurice Liu MD ? CC: ? Transcribed Date/Time: 03/14/2018 (2132) ? Bath Mix Operator: ? Printed Date/Time: 01/18/2019 (1121) ? PAGE 1 ? Signed Report ? Procedure Note Maurice Liu MD - 06/05/2019 EXAM: RADIOLOGY/FOOT LEFT 2 VIEW EX. D/ (1111) CLINICAL INFORMATION: OSTEOPHYTOSIS M25.70 INDICATION: OSTEOPHYTOSIS M25.70 LARGE TOE LEANING , BONE SPUR TECHNIQUE: 2 views of the left foot. COMPARISON: None. Findings: The left foot demonstrates mild/moderate degenerative change at the 1st MTP joint. Hypertrophic osteoarthritis is also present at the midfoot, as noted on the lateral lateral projection. This appears focused at the 1st tarsometatarsal joint. A plantar calcaneal spur is present and there is enthesopathic change at the Achilles tendon insertion with additional foci of mineralization within the distal Achilles tendon, likely degenerativetendinopathy. No acute fracture is detected. Mild/moderate forefootosteoarthritis present. IMPRESSION: 1. Osteoarthritis. Proliferative osteophyte formation is most prominent at the dorsal aspect of the midfoot, likely at the 1stTMT joint. 2. Plantar calcaneal spur. 3. Insertional Achilles tendinopathy. REPORT SIGNED IN OTHER VENDOR SYSTEM 03/14/2018 Reported By: Maurice Liu MD CC: Transcribed Date/Time: 03/14/2018 (5656) Bath Mix Operator: Printed Date/Time: 01/18/2019 (5951) PAGE 1 Signed Report Pasha Govea DPM IMG DIAGNOSTIC IMAG ING ORDERABLES documented in this encounter Visit Diagnoses Not on filedocumented in this encounter Care Teams Hazardous Waste Remover Relationship Specialty Start Date End Date Unknown, Provider, PCP - General 08/16/09 09/09/19 documented as of this encounter
--- OUTSIDE RECORDS SUMMARY | 2024-03-27 20:57 | XMS_ITS | Encounter Summary ---
Author Organization [facility] Address [address] [place] [address] Care Team Providers Care Svp Digital Sales Food & Cooking Name Role Phone Unknown, Provider Primary Care Provider Encounter Details Date Type Department Care Team (Late st Contact Info) Description 08/13/2007 Results Only [facility] [address] [place] [address] Misael Bhatia MD Social History Tobacco Use [...] Info) Description 12/17/2024 13:00 EDT Office Visit [facility] [place] Dermatology [address] [place] [address] Maci Rand MD [address] [facility], [facility] [address] [place] [phone] documented as of this encounter Procedures Procedure Name Priority Date/Time Associated Diagnosis Comments HPV DETECTION, HIGH RISK TYPES Routine 08/13/2007 10:24 EST CYTOPATHOLOGY Routine 08/13/2007 0:00 EST documented in this encounter Results * HUMAN PAPILLOMA VIRUS DNA TEST (08/13/2007 10:24 EST) Specimen Description Cervix, ThinPrep vial [facility] Result Positive for one or more of HPV types 16,18,31,33,35 ,39,45,51,52,5 6,58,59, or 68. These high/intermedi ate risk HPV types are associated with dysplasia and some cervical cancers. [facility] Report Status Final [id number] [facility] 08/13/2007 10:2 4 EST 08/23/2007 10:24 EST Misael Bhatia MD MICROBIOLOGY - GENER AL ORDERABLES [facility] [address] [place] [address] * CYTOPATHOLOGY (08/13/2007 0:00 EST) Pathology Report: CYTOPATHOLOGY REPORT Reports generated via electronic interface contain original data; however they are lacking the format of the original report. Caution should be taken when reading/interpreti ng unformatted reports. Name: ? PAGE KATZ ? Accession #: ? [id number] : ? 1950 (Age: 56) ??F ?Collect Date: ? 08/13/2007 Location: ? [facility] ? Receive Date: ? 08/15/2007 Provider: ?MISAEL BHATIA MD Copy to: ? Specimen/Source: ?ThinPrep Pap Test, Cervix/Endocervix, processed on [employer] ThinPrep Imaging System, with manual evaluation Last Menstrual Period: ? Previous Gynecologic Pathology: ? LSIL: 2002, 11/02, 01/03 Yes: +HR HPV 07/02, 01/03, _HPV 05/04 Treatment History: ? Cryotherapy: 2002 Other: ? HPVDX - HPV testing requested regardless of diagnosis on current ThinPrep Pap test. ? SPECIMEN ADEQUACY ? Satisfactory for Evaluation - transformation zone component present GENERAL CATEGORIZATION ? Epithelial Cell Abnormality INTERPRETATION ? Squamous Cell Abnormality - Atypical squamous cells, undetermined significance (ASC-US). EDUCATIONAL NOTES/RECOMMENDATI ONS ? FA recommends following the 2006 Consensus Guidelines for the Management of Women with Abnormal Cervical Cancer Screening Tests (JLGTD, 2007;11(4):201-222 ). ??Consensus guidelines are available online at www.ASCCP.org. ? Document reviewed and electronically signed by: ? RASHEEDA ALMEIDA MD ? Report Date: ??08/22/2007 08:57 End of Report [facility] 08/13/2007 08/15/2007 Misael Bhatia MD PATHOLOGY ORDERABLES Performing Organization Address City/State/[facility] Co de Phone Number [facility] [address] [place] [address] documented in this encounter Visit Diagnoses Not on filedocumented in this encounter Care Teams Svp Digital Sales Food & Cooking Relationship Specialty Start Date End Date Unknown, Provider, PCP - General 08/16/09 09/09/19 documented as of this encounter
[2024-03-28 08:59] LABS: Calcium (Random Urine) 4.5 mg/dL (See Note)
== END 2024-03-27 20:50 | disposition home or self-care (01) ==
LOC: LBN 20:49
PROVIDERS: PCP Family Medicine; Visit Provider Family Medicine
DX: N20.0 Calculus of kidney (principal)
CPT/HCPCS: 82340

== ENCOUNTER → 2024-04-03 13:02 | Outpatient (BNVA) | payer MEDICARE, SELFPAY | PROVIDERS: PCP Family Medicine; Visit Provider Internal Medicine Cardiovascular Disease | DX: I25.10 Atherosclerotic heart disease of native coronary artery without angina pectoris (principal) | CPT/HCPCS: 99213 ==

== ENCOUNTER 2024-04-24 03:02 | Outpatient (CLI) | payer MEDICARE, SELFPAY ==
[2024-04-24 14:09] LABS: TSH (W/Ref FT4) 1.61 uIU/mL (0.36-3.74); Vitamin D 25 Total 47.1 ng/mL (30-100)
[2024-04-25 20:07] LABS: Parathyroid Hormone,Intact 55 pg/mL (19-88)
== END 2024-04-24 03:03 | disposition home or self-care (01) ==
LOC: LBO 03:02
PROVIDERS: PCP Family Medicine; Visit Provider Family Medicine
DX: E03.9 Hypothyroidism, unspecified (principal); N13.5 Crossing vessel and stricture of ureter without hydronephrosis; E66.09 Other obesity due to excess calories; Z68.38 Body mass index [BMI] 38.0-38.9, adult
CPT/HCPCS: 36415; 82306; 83970; 84443

== ENCOUNTER 2024-05-15 15:41 | Outpatient (CLI) | payer MEDICARE, SELFPAY ==
--- NOTE | 2024-05-15 15:23 | DI.RAD_ITS ---
Exam(s) XR KNEE RT 3V AP,LAT,FABIOLA EXAM: XR KNEE RT 3V AP,LAT,FABIOLA CLINICAL HISTORY: eval painful R TKA. TECHNIQUE: 2D digital imaging was performed. COMPARISON: CR XR KNEE LT 3V AP,LAT,FABIOLA from 05/15/2024 FINDINGS: 3 views There is a right knee prosthesis. Exhibit satisfactory position alignment. No fracture or obvious l oosening IMPRESSION: Satisfactory appearance DATA REPOSITORY: RADIATION DOSE DELIVERED:
--- NOTE | 2024-05-15 15:23 | DI.RAD_ITS ---
Exam(s) XR KNEE LT 3V AP,LAT,FABIOLA EXAM: XR KNEE LT 3V AP,LAT,FABIOLA CLINICAL HISTORY: eval pain in L TKA. TECHNIQUE: 2D digital imaging was performed. COMPARISON: CR KNEES BILAT AP LATERALS from 07/08/2015 CR XR KNEE RT 3V AP,LAT,FABIOLA from 05/15/2024 FINDINGS: 3 views Stable position alignment of the components of the left knee prosthesis. No fracture or loosening ev ident. On the merchant's view the posterior cortex of the medial aspect of the resurfaced patella appears to exhibit some smooth erosion against the anterior aspect of the femoral component. Other finding is seen on the opposite-right side. IMPRESSION: Stable satisfactory appearance. Patellofemoral compartment findings as above. DATA REPOSITORY: RADIATION DOSE DELIVERED:
== END 2024-05-15 15:42 | disposition home or self-care (01) ==
LOC: DIORS 15:41
PROVIDERS: PCP Family Medicine; Referring Provider Family Medicine; Visit Provider Student in an Organized Health Care Education/Training Program
DX: T84.84XA Pain due to internal orthopedic prosthetic devices, implants and grafts, initial encounter (principal); Z96.653 Presence of artificial knee joint, bilateral
CPT/HCPCS: 73562

== ENCOUNTER 2024-05-20 01:14 | Outpatient (CLI) | payer MEDICARE, SELFPAY ==
--- NOTE | 2024-05-20 06:15 | DI.CT_ITS ---
Exam(s) CT LOWER EXTREMITY LT WO EXAM: CT LOWER EXTREMITY LT WO CLINICAL HISTORY: PAINfun total knee replacement, lt,z96.652,t84.84xa. TECHNIQUE: Imaging Protocol: Axial computed tomography images with coronal and sagittal reformatted images were created and reviewed. CONTRAST MATERIAL: Intravenous: None COMPARISON: CR XR KNEE LT 3V AP,LAT,FABIOLA from 05/15/2024 CR XR KNEE RT 3V AP,LAT,FABIOLA from 05/15/2024 FINDINGS: OSSEOUS: There is a total knee prosthesis in place. No evidence of acute fracture. No malalignment. No obvious loosening the components. No significant joint effusion. No osseous lesions. No evidence of osteomyelitis. IMPRESSION: Unremarkable appearing total left knee prosthesis. RADIATION DOSE DELIVERED: 220.44mGy.cm Total DLP DATA REPOSITORY: All CT scans at this facility are submitted to the National Radiology Data Registry (NRDR) Dose Index Registry (DIR) with the [employer] (ACR). RADIATION OPTIMIZATION: All CT scans at this facility use at least one of these dose optimization te chniques: automated exposure control; mA and/or kV adjustment per patient size (includes targeted exa ms where dose is matched to clinical indication); or iterative reconstruction.
--- NOTE | 2024-05-20 19:38 | DI.VRAD_ITS ---
PROCEDURE INFORMATION: Exam: CT Left Lower Extremity, Knee Exam date and time: 05/20/2024 8:24 AM Age: 73 years old Clinical indication: Pain; Knee; Left TECHNIQUE: Imaging protocol: CT of the left lower extremity without contrast was performed. Exam focused on the knee. COMPARISON: CR XR KNEE LT 3V AP,LAT,FABIOLA 05/15/2024 3:14 PM FINDINGS: Bones/joints: There is no evidence of acute fracture.There is no evidence of malalignment or dislocation. Total knee replacement without evidence of complication. Soft tissues: Normal. IMPRESSION: 1. There is no evidence of acute fracture.There is no evidence of malalignment or dislocation. 2. Total knee replacement without evidence of complication. Dictated and Authenticated by: Tru Saini MD. Ordering:GARDENIA Mills MD
== END 2024-05-20 01:34 ==
LOC: DI 01:15
PROVIDERS: PCP Family Medicine; Visit Provider Student in an Organized Health Care Education/Training Program
DX: T84.84XA Pain due to internal orthopedic prosthetic devices, implants and grafts, initial encounter (principal); Z96.652 Presence of left artificial knee joint
CPT/HCPCS: 73700

== ENCOUNTER 2024-05-20 09:25 | Outpatient (CLI) | payer MEDICARE, SELFPAY ==
[2024-05-20 09:03] LABS: ESR 5 mm/hr (0-30)
[2024-05-20 09:21] LABS: C-Reactive Protein < 0.50 mg/dL (<or=0.5)
== END 2024-05-20 09:26 ==
LOC: LBO 09:28
PROVIDERS: PCP Family Medicine; Visit Provider Student in an Organized Health Care Education/Training Program
DX: T84.84XA Pain due to internal orthopedic prosthetic devices, implants and grafts, initial encounter (principal); Z96.652 Presence of left artificial knee joint
CPT/HCPCS: 36415; 85652; 73700; 86140

== ENCOUNTER 2024-06-17 02:04 | Outpatient (CLI) | payer MEDICARE, SELFPAY ==
--- NOTE | 2024-06-17 06:30 | DI.NM_ITS ---
Exam(s) NM BONE SCAN 3 PHASE EXAM: NM BONE SCAN 3 PHASE CLINICAL HISTORY: PAIN, ? LOOSENING,z96.652,T84.84xa. TECHNIQUE: Injected Dose: 25 mCi Tc-99m MDP COMPARISON: CR XR KNEE LT 3V AP,LAT,FABIOLA from 05/15/2024 CR XR KNEE RT 3V AP,LAT,FABIOLA from 05/15/2024 FINDINGS: Triple phase nuclear bone scan was performed with IV injection of 26.7 millicuries technetium 99 MDP. The immediate post injection perfusion/angiogram phase reveals no abnormal asymmetric uptake in eithe r knee. The equilibrium images reveal photopenic zones in both knees consistent with the presence of bilatera l knee prostheses, as evident on recent plain films of 05/15/2024. On these equilibrium images there is some mild relatively symmetrical uptake seen around both prosthe ses, both in the femoral condyles and tibial plateaus. The delayed images reveal mild relatively symmetrical uptake in both knees around the prostheses. No abnormal uptake in the skeleton above the knee levels. However, there are multiple foci of increase d uptake seen in both feet probably related to degenerative changes. This is predominately in the mi dfoot level and in the great toe metatarsophalangeal joint of the right foot. Also in the left ankle region at the tibial plafond level. No abnormal uptake evident in the remainder of the skeleton including the spine. No evidence to sugg est neoplastic osseous disease. IMPRESSION: There is some relatively symmetrical uptake around both knee prostheses evident. DATA REPOSITORY:
== END 2024-06-17 02:24 ==
LOC: DI 08:10
PROVIDERS: PCP Family Medicine; Visit Provider Student in an Organized Health Care Education/Training Program
DX: T84.84XA Pain due to internal orthopedic prosthetic devices, implants and grafts, initial encounter (principal); Z96.652 Presence of left artificial knee joint
CPT/HCPCS: 78315

== ENCOUNTER → 2024-06-19 08:24 | Outpatient (BNVA) | payer MEDICARE, SELFPAY | PROVIDERS: PCP Family Medicine; Referring Provider Family Medicine; Visit Provider Student in an Organized Health Care Education/Training Program | DX: Z47.1 Aftercare following joint replacement surgery (principal); T84.84XA Pain due to internal orthopedic prosthetic devices, implants and grafts, initial encounter; Z96.652 Presence of left artificial knee joint; Z96.651 Presence of right artificial knee joint | CPT/HCPCS: 20610; 99214 ==

== ENCOUNTER 2024-10-02 08:16 | Outpatient (CLI) | payer MEDICARE, SELFPAY ==
--- NOTE | 2024-10-02 08:15 | RT.EKG_ITS ---
APPROVED REPORT Exam: Resting ECG Reason for Exam: CAD Patient Location: O HR:71 bpm ECG Measurements Heart Rate 71 AXIS CA 155 P -11 QRSd 105 QRS -7 QT 366 T 122 QTc 398 Conclusion Sinus rhythm...normal P axis, V-rate 50- 99 Atrial premature complex...SV complex w/ short R-R interval LVH with secondary repolarization abnormality...multi-LVH criteria, abnrm ST-T
== END 2024-10-02 08:17 | disposition home or self-care (01) ==
PROVIDERS: PCP Family Medicine; Visit Provider Internal Medicine Cardiovascular Disease
DX: I25.10 Atherosclerotic heart disease of native coronary artery without angina pectoris (principal)
CPT/HCPCS: 93010

== ENCOUNTER → 2024-10-02 12:49 | Outpatient (BNVA) | payer MEDICARE, SELFPAY | PROVIDERS: PCP Family Medicine; Visit Provider Internal Medicine Cardiovascular Disease | DX: I25.10 Atherosclerotic heart disease of native coronary artery without angina pectoris (principal) | CPT/HCPCS: 93005; 99213 ==

== ENCOUNTER 2025-04-05 22:33 | Inpatient (IN) | payer MEDICARE, SELFPAY ==
[2025-04-05 22:37] VITALS: BP 211/90; PULSE 92; RESP 18; TEMP 36.6; O2SAT 99
--- NOTE | 2025-04-05 22:45 | DI.CT_ITS ---
Exam(s) CT ABDOMEN PELVIS WO EXAM: CT ABDOMEN PELVIS WO CLINICAL HISTORY: right flank pain, eval for stone. TECHNIQUE: Imaging Protocol: Axial computed tomography images with coronal and sagittal reformatted images were created and reviewed CONTRAST MATERIAL: Intravenous: none Oral: None COMPARISON: CT CT ABDOMEN AND PELVIS W CONTRAST from 02/06/2024 FINDINGS: VISUALIZED LUNG BASES: No nodules nor pleural effusions evident. ABDOMEN: There is no ascites. LIVER: Some steatosis evident. No obvious discrete focal hepatic lesions evident on this non few study. GALLBLADDER/BILIARY: Gallbladder is surgically absent. CBD measures up to 8 mm, probably related to post cholecystectomy status. There are no radiopaque calculi seen in the lower CBD. PANCREAS: No evidence of pancreatic mass nor dilatation of the pancreatic duct. SPLEEN: Spleen is not enlarged. No obvious intrasplenic lesions. ADRENALS: There are no significant adrenal masses. KIDNEYS:Benign cyst in the left kidney again noted which require no further imaging evaluation. There is a exophytic uniformly hyperdense 1.1 cm hemorrhagic cyst in the superior pole of the right kidney which is unchanged in size from January 2024. There is a nonobstructive 3 millimeter calculus in the right kidney. However, there is now a 4 millimeter calculus in the upper right ureter at the UPJ with mild prominence of the ipsilateral renal pelvis and calices. Below this level the right ureter is not dilated and there are no additional calculi seen in the nondilated right ureter nor within the urinary bladder. A few tiny nonobstructive calculi in the opposite-left kidney. ABDOMINAL AORTA: Abdominal aorta is not enlarged. LYMPH NODES: There is no retroperitoneal nor paraaortic adenopathy. 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 The findings unchanged from 02/06/2024. some the distal small bowel loops are fecalized. Some small bowel loop diameters are upper normal size-minimally prominent but there is no evidence of true bowel obstruction. Rectum is oversewn PELVIS: LYMPH NODES: There is no intrapelvic nor inguinal adenopathy. GI: Appendix is surgically absent prior colectomy. URINARY BLADDER: No calculi nor obvious masses evident REPRODUCTIVE: Uterus is atrophic or surgically absent. There are no abnormal adnexal masses nor free fluid in the pelvis. OSSEOUS: No significant osseous lesions. No fractures. IMPRESSION: 1. The main acute finding here is a 4-5 mm calculus in the upper right ureter at the UPJ level with mild dilatation of the right urinary tract above this level. The remainder of the right ureter is not dilated and there are no additional radiopaque calculi seen in the ureter nor within the nondistended urinary bladder. There is a single remaining 3-4 mm calculus in the right kidney and there few tiny nonobstructive calculi in the opposite-left kidney.. Unchanged size of hemorrhagic cyst in the superior pole of the right kidney, as discussed on 02/06/2024. 2. Again noted is evidence of prior colectomy, prior cholecystectomy and hysterectomy. Preliminary virtual Radiology report was reviewed RADIATION DOSE DELIVERED: 948.39mGy.cm Total DLP DATA REPOSITORY: All CT scans at this facility are submitted to the National Radiology Data Registry (NRDR) Dose Index Registry (DIR) with the [employer] (ACR). RADIATION OPTIMIZATION: All CT scans at this facility use at least one of these dose optimization techniques: automated exposure control; mA and/or kV adjustment per patient size (includes targeted exams where dose is matched to clinical indication); or iterative reconstruction.
[2025-04-05 22:46] VITALS: PULSE 86; O2SAT 99
[2025-04-05 22:47] VITALS: BP 211/90; PULSE 91; O2SAT 97
[2025-04-05] MEDS: ACETAMINOPHEN 1,000 MG/100 ML BAG 400 MG IVPB (23:02)
[2025-04-05] MEDS: Normal Saline 1,000 ML 1000 ML IV (23:02)
[2025-04-05] MEDS: MORPHine 4 MG/ML SYR IVP (23:03)
[2025-04-05] MEDS: Ondansetron 4 MG/2 ML VIAL IVP (23:03)
[2025-04-05] MEDS: Tamsulosin 0.4 MG CAPCR PO (23:03)
[2025-04-05] MEDS: Ketorolac 15 MG/ML VIAL IVP (23:03)
--- NOTE | 2025-04-05 23:13 | W.ED.GENAD ---
Discharge Plan Disposition Patient Disposition: Admit to [facility] Condition: Stable Discharge Details Clinical Impression: Ureteral stone with hydronephrosis Admit Date/Time: 04/06/25 02:26 Admit Provider: Robert Pereira Attending Provider: Robert Pereira Primary Care Provider: Latha Aguirre ED Provider: Torrey Jenkins HPI General Date/Time Provider Initiated Documentation: 04/05/25 22:40. HPI Narrative: This is a very pleasant 74-year-old female with a past medical history of Crohn's disease, colon cancer followed by colectomy and current ostomy, rheumatoid arthritis on immunomodulators, cholecystectomy, total hysterectomy with salpingo-oophorectomy, high cholesterol, cardiac disease previous long COVID, previous kidney stones requiring stenting, who presents today for evaluation of right flank pain. Patient states that this evening at dinnertime she developed achiness in her right flank, it moved around up and down in the right flank. It came in waves of severity. As the pain worsened throughout the evening she also had nausea and subsequent vomiting during the peaks of the pain. She denies numbness or tingling. She denies hematuria, chest pain, or hematemesis. No bloody stool. No fever. She states pain feels similar to previous kidney stones. Related Data Home Medications ?Medication ?Instructions ?Recorded ?Confirmed prednisone 1 mg tablet 2 mg PO DAILY 09/29/22 04/06/25 aspirin 81 mg chewable tablet 81 mg PO DAILY 07/17/23 04/06/25 [id number]-Ad-titf-minerals 18 1 tab PO DAILY 07/18/23 04/06/25 mg-0.4 mg tablet alprazolam 0.25 mg tablet See Rx Instructions PO .COMPLEX 07/31/24 04/06/25 Held on 10/24/24. PRN anxiety #25 tabs Instructions: Adverse Reaction omeprazole 40 mg capsule,delayed 40 mg PO DAILY #90 caps 09/17/24 04/06/25 release amlodipine 5 mg tablet 5 mg PO BID #180 tabs 10/24/24 04/06/25 nitroglycerin 0.4 mg sublingual 0.4 mg sublingual Q5M PRN chest 10/24/24 04/06/25 tablet pain #30 tabs rosuvastatin 20 mg tablet 20 mg PO QHS #90 tabs 10/24/24 04/06/25 Onnit Brain Focus and Memory 1 tab PO DAILY 11/05/24 04/06/25 magnesium citrate 125 mg capsule 125 mg PO DAILY 11/05/24 04/06/25 etanercept 50 mg/mL (1 mL) 50 mg subcut QWEEK 12/10/24 04/06/25 subcutaneous pen injector (Enbrel Vincentick) memantine 10 mg tablet 10 mg PO BID #60 tabs 12/10/24 04/06/25 metoprolol succinate 50 mg 50 mg PO DAILY #90 tabs 12/25/24 04/06/25 tablet,extended release 24 hr levothyroxine 125 mcg tablet See Rx Instructions .Route 01/23/25 04/06/25 .COMPLEX #90 tabs duloxetine 60 mg capsule,delayed 60 mg PO DAILY #90 ea 02/13/25 04/06/25 release donepezil 10 mg tablet 10 mg PO DAILY #30 tabs 04/01/25 04/06/25 nystatin 100,000 unit/mL oral 5 ml PO DAILY 04/06/25 04/06/25 suspension Previous Rx's ?Medication ?Instructions ?Recorded alprazolam 0.25 mg tablet See Rx Instructions PO .COMPLEX 07/31/24 Held on 10/24/24. PRN anxiety #25 tabs Instructions: Adverse Reaction omeprazole 40 mg capsule,delayed 40 mg PO DAILY #90 caps 09/17/24 release amlodipine 5 mg tablet 5 mg PO BID #180 tabs 10/24/24 nitroglycerin 0.4 mg sublingual 0.4 mg sublingual Q5M PRN chest 10/24/24 tablet pain #30 tabs rosuvastatin 20 mg tablet 20 mg PO QHS #90 tabs 10/24/24 memantine 10 mg tablet 10 mg PO BID #60 tabs 12/10/24 metoprolol succinate 50 mg 50 mg PO DAILY #90 tabs 12/25/24 tablet,extended release 24 hr levothyroxine 125 mcg tablet See Rx Instructions .Route 01/23/25 .COMPLEX #90 tabs duloxetine 60 mg capsule,delayed 60 mg PO DAILY #90 ea 02/13/25 release donepezil 10 mg tablet 10 mg PO DAILY #30 tabs 04/01/25 Allergies Allergy/AdvReac Type Severity Reaction Status Date / Time atorvastatin AdvReac LFTS Verified 01/28/25 11:00 fentanyl AdvReac CRAZY Verified 01/28/25 11:00 BEHAVIOR General Stated Complaint: FlankPain BUSTER: 3 Exam Narrative Exam Narrative: 1.Const: Well-nourished, Well-developed, appearing stated age 2.Eyes: PERRL, no conjunctival injection, and symmetrical lids. 3.ENT: Atraumatic external nose and ears. Moist MM. Neck: Symmetric, trachea midline, No thyromegaly. 4.CVS: +S1/S2, Peripheral pulses 2+ and equal in all extremities. Brisk capillary refill in all extremities. 5.RESP: Unlabored respiratory effort. Clear to auscultation bilaterally. No wheezes rales or rhonchi 6.GI: Soft, nondistended. No guarding or rebound. No focal abdominal tenderness. Mild right-sided CVA tenderness. 7.MSK: Normocephalic/Atraumatic, Extremities w/o deformity or ttp No cyanosis or clubbing, Normal movement of all extremities 8.Skin: Warm, Dry. No rashes or lesions. 9.Neuro: ranch rider II-XII grossly intact. Sensation grossly intact, no focal neurologic deficits. 10.Psych: (AAO) x3. Appropriate mood and affect Course Vital Signs Vital signs: Vital Signs Temperature 36.6 C 04/05/25 22:37 Pulse 92 H 04/05/25 22:37 Respiratory Rate 18 04/05/25 22:37 Blood Pressure 211/90 H 04/05/25 22:37 Pulse Oximetry 99 04/05/25 22:37 Temperature 36.6 C 04/05/25 22:37 Temperature Source Oral 04/05/25 22:37 Pulse 92 H 04/05/25 22:37 Respiratory Rate 18 04/05/25 22:37 Blood Pressure 211/90 H 04/05/25 22:37 Blood Pressure Position Sitting 04/05/25 22:37 Pulse Oximetry 99 04/05/25 22:37 Oxygen Delivery Method Room Air 04/05/25 22:37 Oxygen Flow Rate 0 04/05/25 22:37 Pain Level 7 04/05/25 23:03 Medical Decision Making This is a very pleasant 74-year-old female with a past medical history of Crohn's disease, colon cancer followed by colectomy and current ostomy, rheumatoid arthritis on immunomodulators, cholecystectomy, total hysterectomy with salpingo-oophorectomy, high cholesterol, cardiac disease previous long COVID, previous kidney stones requiring stenting, who presents today for evaluation of right flank pain. Patient states that this evening at dinnertime she developed achiness in her right flank, it moved around up and down in the right flank. It came in waves of severity. As the pain worsened throughout the evening she also had nausea and subsequent vomiting during the peaks of the pain. She denies numbness or tingling. She denies hematuria, chest pain, or hematemesis. No bloody stool. No fever. She states pain feels similar to previous kidney stones. Exam demonstrates a well-appearing but in pain female with right mild CVA/flank tenderness. Differential is high for urolithiasis, pyelonephritis diverticulitis appendicitis is of concern but less likely. Will rehydrate, give Toradol for meds morphine and Zofran. Will give a dose of Flomax out of suspicion for potential kidney stone, will get CT imaging monitor closely rehydrate with a liter of normal saline and reassess. [address] scan shows evidence of a 4 mm obstructing proximal right ureteral calculus, there is evidence of upstream uric stasis and mild hydronephrosis. Patient's labs demonstrate mildly elevated white count at 11.6, mild left shift but no bandemia, renal function stable. Urinalysis shows blood, but also trace leuk esterase. This is concerning for potential very mild infection. Cefepime was administered. On reassessment the patient is feeling much better and pain is notably improved, however with the evidence of infection I do feel antibiotics and observation and evaluation by urology in the morning is indicated for discussion of potential stenting. Discussed the case with the hospitalist Dr. Dumont, he agrees with the assessment and plan. I have extensively reviewed the treatment plan with the patient. I have addressed all patient concerns at this time. I have also discussed the plan with the admitting physician and they agree with the current assessment and plan and have agreed to assume responsibility for the patient. All parties demonstrate verbal understanding and agreement with our assessment and plan at this time. The documentation in this chart was dictated using Roamer dictation software. Please excuse any dictation errors. FINDINGS: Lungs: Mild streaky and dependent atelectasis. Diaphragm: Small hiatal hernia. Liver: Mildly heterogeneous liver unenhanced, nonspecific. Gallbladder and biliary ducts: Prior cholecystectomy with postop biliary dilatation. Pancreas: Normal appearing pancreas. Spleen: Grossly unremarkable unenhanced spleen. Adrenal glands: Normal appearing adrenal glands. Kidneys and ureters: 4 mm proximal right ureteral calculus with upstream ureterectasis and mild hydronephrosis in keeping with obstructive uropathy. Nonobstructing renal calculi with the largest measuring 2 mm. 11 mm hyperdense right upper pole renal lesion with a density of 71 Hounsfield units on image 136 of series 2, likely a hyperdense cyst but not definitively characterized by today's exam. 12 mm simple left renal cyst measuring 12 Hounsfield units density on image 114 of series 2. No left-sided hydronephrosis or ureterectasis. Stomach and bowel: No oral contrast. Stomach partially decompressed. Apparent total colectomy with a right-sided ileostomy. Correlation with surgical history recommended. 5.6 cm x 7.2 cm x 10.0 cm fat and small bowel containing parastomal hernia. Fecalization of contents through the distal small bowel segment just upstream to the hernia suggesting delayed transit but no convincing evidence of a high-grade small bowel obstruction. Appendix: Presumed surgically absent in the setting of a prior total colectomy. Correlation with surgical history recommended. Intraperitoneal space: No gross ascites or free air. Vasculature: Normal caliber abdominal aorta. Lymph nodes: No pathologically enlarged mesenteric, retroperitoneal, or pelvic sidewall lymph nodes. Urinary bladder: Urinary bladder posteriorly displaced into the central pelvis. Reproductive: Prior hysterectomy. Vagina posteriorly displaced into the rectal fossa. Ovaries not identified, obscured if present. Correlation with surgical history recommended. Bones/joints: No acute fracture seen among the bones of the abdomen or pelvis. Spinal degenerative change with bridging anterior osteophytes and small Schmorl's nodes throughout the lower thoracic spine. Discogenic degeneration with Schmorl's nodes and facet arthrosis throughout the lumbar spine. Soft tissues: Parastomal hernia as described with the stomach and bowel findings. IMPRESSION: 4 mm obstructing proximal right ureteral calculus. Thank you for allowing us to participate in the care of your patient. Dictated and Authenticated by: Valerio Andres MD 04/06/2025 12:57 AM Eastern Time ([place] & [place]) [facility] All Active Problems (Updated 04/06/25 @ 04:26 by Torrey Jenkins DO) Ureteral stone with hydronephrosis (Acute) Trochanteric bursitis, right hip (Acute) Mild cognitive impairment (Acute) Painful total knee replacement, right (Acute) Painful total knee replacement, left (Acute) Acquired deformity of right foot (Acute) CAD (coronary artery disease) (Chronic) Word finding difficulty (Chronic) Class 2 obesity due to excess calories with body mass index (BMI) of 38.0 to 38.9 in adult (Acute) Osteoarthritis of right hip (Acute) DEPO MEDROL 07/05/23 Hypothyroidism, acquired (Acute) Seronegative rheumatoid arthritis (Chronic) on Humira, prednisone. Man[place] [facility] Carpal tunnel syndrome of left wrist (Chronic) Anxiety (Chronic) 2020-Rx alprazolam occasional panic-like episodes-drug contract through [facility] Non-alcoholic fatty liver disease (Acute) Vitamin D deficiency (Acute 10/22/16) Polymyalgia rheumatica (Acute 03/29/12) Dr Wood ([facility] [place] seronegative RA) Essential hypertension (Acute 05/15/13) Depressive disorder (Chronic) had side effects with bupropion, tolerating duloxetine. Difficult airway for intubation (Acute) Medical History Ureteral obstruction, left 8mm obstructing stone, hydronephrosis History of COVID-19 10/2020-URI symptoms decreased taste and smell Low grade squamous intraepithelial lesion on cytologic smear of cervix (LGSIL) (04/11/17) 2016 colpo directed biopsies showed inflammation but no dysplasia. 2017 Pap - low-grade ISH. Negative HPV. Global directed biopsies - low-grade ISH. Vaginal estrogen recommended for 1 year with repeat code testing in 2018. 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 S/P thyroidectomy. No XRT. Endometrial cancer 04/201414. Grade 1, Stage 1. s/p supracervical hysterectomy [facility]. No chemo or radiation required. Yearly paps of cervix recommended. Hyperlipidemia Primary malignant neoplasm of colon 2011 - mass distinct from Crohns. Surgical History S/P cystoscopy with ureteral stent placement (~10/21/23) [facility] S/P coronary artery stent placement (06/2023) mid segment of LAD - 1x FIDELINA Staghorn calculus S/P JESÚS-BSO (~2013) supracervical JESÚS/BSO at [facility] for endometrial CA stage 1, grade1 S/P cholecystectomy (~2007) S/P shoulder surgery Status post total bilateral knee replacement S/P thyroidectomy (~2011) S/P ileostomy (~2005) S/P colectomy Dilation and curettage (04/22/14) hysteroscopy and D+C. Final path result: complex endometrial hyperplasia with atypia. Family History Mother , AGE 82 Essential hypertension Hyperlipidemia Father , age 57 Essential hypertension Heart disease Myocardial infarction Stroke Sister Diabetes Essential hypertension Heart disease Pituitary adenoma Asthma Brother Essential hypertension Ulcerative colitis Paternal Grandfather Heart disease Paternal Grandmother Diabetes Sister Diabetes Essential hypertension Depression Asthma Heart disease Alcohol abuse Sister Essential hypertension Heart disease Son Asthma Son Essential hypertension Hyperlipidemia Depression Daughter Asthma Depression Social History (Updated 04/06/25 @ 03:08 by Robert Pereira) Smoking/Tobacco Use Status: Never Second Hand Exposure: Yes Smoking risk assessment performed?: Yes Alcohol Intake: never Drug use: Never Substance use type: does not use Adopted: No Caregiver/Support person: No Household members: spouse Housing: house Number of Children: 3 number of grandchildren: 4 Communication Needs: None Education Level: high school Do you need help understanding health information?: Never 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 [employer] Pets and animals: No Do you think of yourself as: decline to answer Current gender identity: female and decline to answer What is your relationship status?: How often do you talk on the phone with friends or family?: three or more times per week How often do you get together with friends or relatives?: once per week How often do you attend zoroastrianism or congregational services?: decline to answer Do you belong to any clubs or organized social groups?: decline to answer Panel score (0-1 are the most socially isolated patients): 2 What type of physical activity do you participate in: decline to answer Duration: decline to answer Frequency: decline to answer Shelby/Episcopal: No preference Special shelby needs: No Seatbelt use: always Helmet use: No Drive intox or ride w/intox lumber driver: No Firearms in home: No Do you feel safe at home: Yes Do you feel safe in your relationship?: Yes Victim of physical abuse: No Victim of emotional abuse: No Victim of sexual abuse: No Additional Social history: Children. 1973 Victoria-2 granddaughters, 1975 Chi grandson and granddaughter, 1977 Vic-3 children. Lives with in [place]. Moved up from [place] in early Female Reproductive History Menstrual Menopause type: surgical History History 3 Para Hx # Term Pregnancies 3 Multiple births Hx # Pregnancies Ectopic pregnancies AB induced Hx Number of Living Children AB spontaneous
[2025-04-05 23:17] LABS: Abs Immature Grans 0.05 10^3/uL (0.0-0.06); HCT 44.8 % (36.0-46.0); HGB 14.6 g/dL (11.2-15.7); Immature Grans % 0.4 %; MCH 31.3 pg (27.0-33.0); MCHC 32.6 % (32.0-36.0); MCV 96 fL (80-95); MPV 9.0 fL (8.0-11.0); Platelet Count 334 10^3/uL (130-400); RBC 4.66 10^6/uL (3.93-5.22); RDW 14.2 % (11.7-14.6); RDW-SD 50.1 fL; WBC 11.62 10^3/uL (4.4-10.8)
[2025-04-05 23:26] LABS: Glucose Negative (Negative)
[2025-04-05 23:32] LABS: ALT 36 U/L (14-59); AST 27 U/L (15-37); Albumin 4.1 g/dL (3.4-5.0); Alkaline Phosphatase 102 U/L (46-116); Anion Gap 12.3 mmol/L (3-11); BUN 20 mg/dL (7-18); Bilirubin, Total 0.5 mg/dL (0.2-1.0); CO2 26.7 mmol/L (21.0-32.0); Calcium 9.6 mg/dL (8.5-10.1); Chloride 103 mmol/L (98-107); Estimated GFR 77.27 (mL/min/1.73m2); Glucose 132 mg/dL (74-106); Potassium 3.5 mmol/L (3.5-5.1); Sodium 142 mmol/L (136-145); Total Protein 8.3 g/dL (6.4-8.2)
[2025-04-05 23:34] LABS: C & S Indicated? No
[2025-04-05 23:57] VITALS: PULSE 81; O2SAT 96
[2025-04-06] VITALS (44 sets, daily range): BP systolic 115–205; BP diastolic 47–83; PULSE 65–103; RESP 14–22; TEMP 36.4–37.5; O2SAT 90–99; BMI 38.7
--- NOTE | 2025-04-06 00:57 | DI.VRAD_ITS ---
PROCEDURE INFORMATION: Exam: CT Abdomen And Pelvis Without Contrast Exam date and time: 04/06/2025 12:21 AM Age: 74 years old Clinical indication: Prior surgery; Surgery date: 6+ months; Surgery type: Colectomy, cholecystectomy, hysterectomy, ileostomy; R flank pain, eval for stone TECHNIQUE: Imaging protocol: Computed tomography of the abdomen and pelvis without contrast. Radiation optimization: All CT scans at this facility use at least one of these dose optimization techniques: automated exposure control; mA and/or kV adjustment per patient size (includes targeted exams where dose is matched to clinical indication); or iterative reconstruction. COMPARISON: MR ABDOMEN WO/W 03/27/2024 12:16 PM FINDINGS: Lungs: Mild streaky and dependent atelectasis. Diaphragm: Small hiatal hernia. Liver: Mildly heterogeneous liver unenhanced, nonspecific. Gallbladder and biliary ducts: Prior cholecystectomy with postop biliary dilatation. Pancreas: Normal appearing pancreas. Spleen: Grossly unremarkable unenhanced spleen. Adrenal glands: Normal appearing adrenal glands. Kidneys and ureters: 4 mm proximal right ureteral calculus with upstream ureterectasis and mild hydronephrosis in keeping with obstructive uropathy. Nonobstructing renal calculi with the largest measuring 2 mm. 11 mm hyperdense right upper pole renal lesion with a density of 71 Hounsfield units on image 136 of series 2, likely a hyperdense cyst but not definitively characterized by today's exam. 12 mm simple left renal cyst measuring 12 Hounsfield units density on image 114 of series 2. No left-sided hydronephrosis or ureterectasis. Stomach and bowel: No oral contrast. Stomach partially decompressed. Apparent total colectomy with a right-sided ileostomy. Correlation with surgical history recommended. 5.6 cm x 7.2 cm x 10.0 cm fat and small bowel containing parastomal hernia. Fecalization of contents through the distal small bowel segment just upstream to the hernia suggesting delayed transit but no convincing evidence of a high-grade small bowel obstruction. Appendix: Presumed surgically absent in the setting of a prior total colectomy. Correlation with surgical history recommended. Intraperitoneal space: No gross ascites or free air. Vasculature: Normal caliber abdominal aorta. Lymph nodes: No pathologically enlarged mesenteric, retroperitoneal, or pelvic sidewall lymph nodes. Urinary bladder: Urinary bladder posteriorly displaced into the central pelvis. Reproductive: Prior hysterectomy. Vagina posteriorly displaced into the rectal fossa. Ovaries not identified, obscured if present. Correlation with surgical history recommended. Bones/joints: No acute fracture seen among the bones of the abdomen or pelvis. Spinal degenerative change with bridging anterior osteophytes and small Schmorl's nodes throughout the lower thoracic spine. Discogenic degeneration with Schmorl's nodes and facet arthrosis throughout the lumbar spine. Soft tissues: Parastomal hernia as described with the stomach and bowel findings. IMPRESSION: 4 mm obstructing proximal right ureteral calculus. Dictated and Authenticated by: Valerio Andres MD. Orderin Alice Hirsch MD
[2025-04-06] MEDS: CEFEPIME 2 GM in Normal Saline 100 ML IVPB (01:24)
--- NOTE | 2025-04-06 02:32 | W.PM.HP.N ---
Date of service: 04/06/25 Time of Service: 02:32 Assessment and Plan Assessment and plan (1) Ureteral stone with hydronephrosis: Status: Acute Assessment and plan: Stone causing some obstruction/hydronephrosis in right ureter U?a doesn't clearly indicate infection, but I am concerned about acute cold chills and possible infeciton, will continue antibiotics. Ceftriaxone should be adequate. Continue tamsulosin and urology consult to consider stent, has had twice before with bigger stones. Morphine for pain, can give additional ketoralac if renal function remains stable. Low dose prn ondansatron okay. We did discuss stone prevention including changing her BP med to use thiazide. DVT proph: enoxaparin FULL CODE confirmed (2) CAD (coronary artery disease): Status: Chronic Assessment and plan: Continue ASA/high intensity statin (3) Essential hypertension: Status: Acute Assessment and plan: Continue home BP medication. Amlodipine BID dosing is odd given it's long half life. could consider cutting this and adding thiazide for stone prevention. (4) Hypothyroidism, acquired: Status: Acute Assessment and plan: continue levothyroxine (5) Seronegative rheumatoid arthritis: Status: Chronic Assessment and plan: Continue prednisone. Can hold enteracept while sick. She is at risk for secondary adrenal insufficiency but there are not signs of this currently. If any develop, would treat with high dose hydrocortisone. (6) Mild cognitive impairment: Status: Acute Assessment and plan: She appears quite functional. COntinue outpatient therapy. History of Present Illness History of Present Illness Chief Complaint: right flank pain Narrative: 74 yo F with history of CAD, RA on etanercept and chronic prednisone, MASLD, BMI 37, and history of Crohns and colon cancer s/p colectomy with ileostomy, and h/o nephrolithiasis who presented with left sided flank to abdominal pain associated with nausea starting on 04/05/25. The pain started after dinner. The pain is sharp on right side, radiating around to her ostomy is on that side. At first she thought the ostomy might be getting backed up, but she didn't have a lot of bloating and her ostomy bag has had gas and liquid stool. She then remembered the pain was very similar to when she had the stone on the left side that was 8mm and needed a stent a few years ago. She also developed nausea and hot/cold sweats before coming in. The pain, nausea, and sweats all feel much better now after medication. She still has mild waves or twinges of pain on that right side that come and go. She has not noted dysuria or hematuria, but she has noted some increased urinary frequency. she has been on prednisone for years for RA, last month she was increased to 20mg but tapered back down to 2mg. She hasn't needed extra steroids when sick in the past, though does get weak when she tapers off them all together. Her joints aren't bad currently. Review of Systems All systems reviewed & are unremarkable except as noted in HPI and below PFSH All Active Problems (Updated 04/06/25 @ 03:13 by Robert Pereira) Ureteral stone with hydronephrosis (Acute) Trochanteric bursitis, right hip (Acute) Mild cognitive impairment (Acute) Painful total knee replacement, right (Acute) Painful total knee replacement, left (Acute) Acquired deformity of right foot (Acute) CAD (coronary artery disease) (Chronic) Word finding difficulty (Chronic) Class 2 obesity due to excess calories with body mass index (BMI) of 38.0 to 38.9 in adult (Acute) Osteoarthritis of right hip (Acute) DEPO MEDROL 07/05/23 Hypothyroidism, acquired (Acute) Seronegative rheumatoid arthritis (Chronic) on Humira, prednisone. Managed [place] [facility] [place] Carpal tunnel syndrome of left wrist (Chronic) Anxiety (Chronic) 2020-Rx alprazolam occasional panic-like episodes-drug contract through [facility] Non-alcoholic fatty liver disease (Acute) Vitamin D deficiency (Acute 10/22/16) Polymyalgia rheumatica (Acute 03/29/12) Dr Wood ([facility] [place]- vs seronegative RA) Essential hypertension (Acute 05/15/13) Depressive disorder (Chronic) had side effects with bupropion, tolerating duloxetine. Difficult airway for intubation (Acute) Medical History Ureteral obstruction, left 8mm obstructing stone, hydronephrosis History of COVID-19 10/2020-URI symptoms decreased taste and smell Low grade squamous intraepithelial lesion on cytologic smear of cervix (LGSIL) (04/11/17) 2016 colpo directed biopsies showed inflammation but no dysplasia. 2017 Pap - low-grade ISH. Negative HPV. Global directed biopsies - low-grade ISH. Vaginal estrogen recommended for 1 year with repeat code testing in 2018. 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 S/P thyroidectomy. No XRT. Endometrial cancer 04/201414. Grade 1, Stage 1. s/p supracervical hysterectomy [facility]. No chemo or radiation required. Yearly paps of cervix recommended. Hyperlipidemia Primary malignant neoplasm of colon 2010 - mass distinct from Crohns. Surgical History S/P cystoscopy with ureteral stent placement (~10/21/23) [facility] S/P coronary artery stent placement (06/2023) mid segment of LAD - 1x FIDELINA Staghorn calculus S/P JESÚS-BSO (~2013) supracervical JESÚS/BSO at [facility] for endometrial CA stage 1, grade1 S/P cholecystectomy (~2007) S/P shoulder surgery Status post total bilateral knee replacement S/P thyroidectomy (~2011) S/P ileostomy (~2005) S/P colectomy Dilation and curettage (04/22/14) hysteroscopy and D+C. Final path result: complex endometrial hyperplasia with atypia. Family History Mother , AGE 82 Essential hypertension Hyperlipidemia Father , age 57 Essential hypertension Heart disease Myocardial infarction Stroke Sister Diabetes Essential hypertension Heart disease Pituitary adenoma Asthma Brother Essential hypertension Ulcerative colitis Paternal Grandfather Heart disease Paternal Grandmother Diabetes Sister Diabetes Essential hypertension Depression Asthma Heart disease Alcohol abuse Sister Essential hypertension Heart disease Son Asthma Son Essential hypertension Hyperlipidemia Depression Daughter Asthma Depression Social History (Updated 04/06/25 @ 03:08 by Robert Pereira) Smoking/Tobacco Use Status: Never Second Hand Exposure: Yes Smoking risk assessment performed?: Yes Alcohol Intake: never Drug use: Never Substance use type: does not use Adopted: No Caregiver/Support person: No Household members: spouse Housing: house Number of Children: 3 number of grandchildren: 4 Communication Needs: None Education Level: high school Do you need help understanding health information?: Never 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 [place] Pets and animals: No Do you think of yourself as: decline to answer Current gender identity: female and decline to answer What is your relationship status?: How often do you talk on the phone with friends or family?: three or more times per week How often do you get together with friends or relatives?: once per week How often do you attend baptist or baptism services?: decline to answer Do you belong to any clubs or organized social groups?: decline to answer Panel score (0-1 are the most socially isolated patients): 2 What type of physical activity do you participate in: decline to answer Duration: decline to answer Frequency: decline to answer Shelby/Methodist: No preference Special shelby needs: No Seatbelt use: always Helmet use: No Drive intox or ride w/intox limb driver: No Firearms in home: No Do you feel safe at home: Yes Do you feel safe in your relationship?: Yes Victim of physical abuse: No Victim of emotional abuse: No Victim of sexual abuse: No Additional Social history: Children. 1973 Victoria-2 granddaughters, 1975 Chi grandson and granddaughter, 1977 Vic-3 children. Lives with in [place]. [place]oved [place] from [place] in early Female Reproductive History Menstrual Menopause type: surgical History History 3 Para Hx # Term Pregnancies 3 Multiple births Hx # Pregnancies Ectopic pregnancies AB induced Hx Number of Living Children AB spontaneous Meds Allergies and Home Medications Allergies Allergy/AdvReac Type Severity Reaction Status Date / Time atorvastatin AdvReac LFTS Verified 01/28/25 11:00 fentanyl AdvReac CRAZY Verified 01/28/25 11:00 BEHAVIOR Home Medications ?Medication ?Instructions ?Recorded ?Confirmed ?Type prednisone 1 mg tablet 2 mg PO DAILY 09/29/22 04/06/25 History aspirin 81 mg chewable tablet 81 mg PO DAILY 07/17/23 04/06/25 History begdppppuzcf-Lz-jjbx-minerals 18 1 tab PO DAILY 07/18/23 04/06/25 History mg-0.4 mg tablet alprazolam 0.25 mg tablet See Rx Instructions PO .COMPLEX 07/31/24 04/06/25 Rx Held on 10/24/24. PRN anxiety #25 tabs Instructions: Adverse Reaction omeprazole 40 mg capsule,delayed 40 mg PO DAILY #90 caps 09/17/24 04/06/25 Rx release amlodipine 5 mg tablet 5 mg PO BID #180 tabs 10/24/24 04/06/25 Rx nitroglycerin 0.4 mg sublingual 0.4 mg sublingual Q5M PRN chest 10/24/24 04/06/25 Rx tablet pain #30 tabs rosuvastatin 20 mg tablet 20 mg PO QHS #90 tabs 10/24/24 04/06/25 Rx Onnit Brain Focus and Memory 1 tab PO DAILY 11/05/24 04/06/25 History magnesium citrate 125 mg capsule 125 mg PO DAILY 11/05/24 04/06/25 History etanercept 50 mg/mL (1 mL) 50 mg subcut QWEEK 12/10/24 04/06/25 History subcutaneous pen injector (Enbrel SureClick) memantine 10 mg tablet 10 mg PO BID #60 tabs 12/10/24 04/06/25 Rx metoprolol succinate 50 mg 50 mg PO DAILY #90 tabs 12/25/24 04/06/25 Rx tablet,extended release 24 hr levothyroxine 125 mcg tablet See Rx Instructions .Route 01/23/25 04/06/25 Rx .COMPLEX #90 tabs duloxetine 60 mg capsule,delayed 60 mg PO DAILY #90 ea 02/13/25 04/06/25 Rx release donepezil 10 mg tablet 10 mg PO DAILY #30 tabs 04/01/25 04/06/25 Rx nystatin 100,000 unit/mL oral 5 ml PO DAILY 04/06/25 04/06/25 History suspension Exam Narrative Exam Narrative: GEN: Alert and oriented x 4, pleasant and cooperative, gives linear history with only missing a few details. No acute distress at rest. HEENT: Head atraumatic. Conjunctiva clear, no icterus. PEERL, EOMI. no rhinorrhea. MMM, OP benign. Neck is supple with no masses or lymphadenopathy, trachea midline LUNGS: CTAB with normal effort CV: RRR with no murmurs, gallops, or rubs. ABD: active bowel sounds, soft, mildly tender in right mid abdomen, neg murphies, not distended. No masses. Ostomy with air and fluid in right abdomen BACK: +right CVAT, mild EXT: no cyanosis, clubbing. Trace ankle edema ollie. Warm. MSK: No overt joint redness or swelling. NEURO: CN 2-12 grossly intact. Normal movement of 4 extremities. Normal speech and coordination. No tremor SKIN: No rashes or open wounds. PSYCH: normal mood and affect Results Imaging Abdomen CT scan report/results: report reviewed CT scan - pelvis: report reviewed (4 mm obstructing proximal right ureteral calculus. mild hydronephrosis) Labs 04/05/25 23:01 04/05/25 23:01 Labs: Laboratory Results - last 24 hr 04/05/25 04/05/25 22:50 23:01 WBC 11.62 H RBC 4.66 Hgb 14.6 Hct 44.8 MCV 96 H MCH 31.3 MCHC 32.6 RDW 14.2 Plt Count 334 MPV 9.0 Immature Gran % 0.4 Neutrophils % 76.5 Lymphocytes % 13.3 Monocytes % 8.6 Eosinophils % 0.6 Basophils % 0.6 Nucleated RBC % 0.0 Absolute Neutrophils 8.89 H Absolute Lymphocytes 1.55 Absolute Monocytes 1.00 H Absolute Eosinophils 0.07 Absolute Basophils 0.07 Sodium 142 Potassium 3.5 Chloride 103 Carbon Dioxide 26.7 Anion Gap 12.3 H BUN 20 H Creatinine 0.8 Est GFR (CKD-EPI 2020) 77.27 Glucose 132 H Calcium 9.6 Total Bilirubin 0.5 AST 27 ALT 36 Alkaline Phosphatase 102 Total Protein 8.3 H Albumin 4.1 Urine Color Yellow Urine Clarity Clear Urine pH 5.5 Ur Specific [place] >= 1.030 H Urine Protein 30 H Urine Ketones Trace H Urine Blood Large H Urine Nitrite Negative Urine Bilirubin Negative Urine Urobilinogen 0.2 Ur Leukocyte Esterase Trace H Urine RBC 5-10 H Urine WBC 3-5 Ur Epithelial Cells Few Urine Crystals Mod Calcium Oxalate Urine Bacteria Few Urine Casts Negative Urine Mucus Trace Urine Other Rare Renal Ur Culture Indicated? No Urine Glucose Negative Last Vital Signs Temp 36.6 C 04/05/25 22:37 Pulse 89 04/06/25 00:45 Resp 18 04/05/25 22:37 BP 205/64 H 04/06/25 00:45 Pulse Ox 96 04/06/25 00:45 Time Spent Time spent with Patient: 55-74 minutes Time was spent: preparing to see the patient(eg.review tests), obtaining and/or reviewing separately otained hiistory, ordering medications,tests, procedures, referring, communicating with other health health care aide, indepentently interpreting results, counseling the patient and care coordination
--- NOTE | 2025-04-06 03:19 | W.PC.ACHO ---
Registration Status: REG ER Primary Language: Preferred Language: Thai ED Information & Data Chief Complaint FlankPain 04/05/25 23:19 Triage Note arrives via POV from home, c 04/05/25 22:37 /o severe R flank pain and abd pain started around 6pm, vomiting x5. Hx of kidney stones. Medical / Surgical History (Last Reviewed 10/02/24 @ 12:57 by Nadja Chaudhari MD) Ureteral obstruction, left History of COVID-19 Low grade squamous intraepithelial lesion on cytologic smear of cervix (LGSIL) (04/11/17) Kidney stone (05/16/13) Crohn's disease (02/01/12) Primary malignant neoplasm of thyroid gland Endometrial cancer Hyperlipidemia Primary malignant neoplasm of colon (Last Reviewed 10/02/24 @ 12:57 by Nadja Chaudhari MD) S/P cystoscopy with ureteral stent placement (~10/21/23) S/P coronary artery stent placement (06/2023) Staghorn calculus S/P JESÚS-BSO (~2013) S/P cholecystectomy (~2007) S/P shoulder surgery Status post total bilateral knee replacement S/P thyroidectomy (~2011) S/P ileostomy (~2005) S/P colectomy Dilation and curettage (04/22/14) Most Recent Vital Signs Temperature 36.6 C 04/05/25 22:37 Temperature Source Oral 04/05/25 22:37 Pulse 90 04/06/25 02:30 Respiratory Rate 16 04/06/25 02:38 Respiratory Effort Normal, Non-Labored 04/06/25 02:38 Respiratory Depth Normal 04/06/25 02:38 Respiratory Pattern Normal 04/06/25 02:38 Blood Pressure 156/68 H 04/06/25 02:38 Blood Pressure Mean 97 04/06/25 02:38 Blood Pressure Position Supine 04/06/25 02:38 Pulse Oximetry 95 04/06/25 02:38 Oxygen Delivery Method Room Air 04/06/25 02:38 Oxygen Flow Rate 0 04/06/25 02:38 Pain Level 7 04/06/25 01:54 Allergies atorvastatin Adverse Reaction (Verified 01/28/25 11:00) LFTS fentanyl Adverse Reaction (Verified 01/28/25 11:00) CRAZY BEHAVIOR Precautions Isolation Standard precaution 04/05/25 22:49 IV IV Catheter Type [Left Peripheral IV Antecubital] IV Catheter Gauge [Left 18 Antecubital] Diet Orders Category Date Time Status Nothing Per Oral [DIET] Nutrition 04/06/25 02:28 Active Diagnostics 04/06/25 04/05/25 04/05/25 Range/Units 05:35 23:01 22:50 WBC 11.62 H (4.4-10.8) 10^3/uL RBC 4.66 (3.93-5.22) 10^6/uL Hgb 14.6 (11.2-15.7) g/dL Hct 44.8 (36.0-46.0) % MCV 96 H (80-95) fL MCH 31.3 (27.0-33.0) pg MCHC 32.6 (32.0-36.0) % RDW 14.2 (11.7-14.6) % Plt Count 334 (130-400) 10^3/uL MPV 9.0 (8.0-11.0) fL Immature Gran % 0.4 % Neutrophils % 76.5 % Lymphocytes % 13.3 % Monocytes % 8.6 % Eosinophils % 0.6 % Basophils % 0.6 % Nucleated RBC % 0.0 (0.0-0.3) % Absolute Neutrophils 8.89 H (1.2-6.7) 10^3/uL Absolute Lymphocytes 1.55 (1.2-3.4) 10^3/uL Absolute Monocytes 1.00 H (0.1-0.8) 10^3/uL Absolute Eosinophils 0.07 (0.0-0.7) 10^3/uL Absolute Basophils 0.07 (0.0-0.2) 10^3/uL Sodium Pending 142 (136-145) mmol/L Potassium Pending 3.5 (3.5-5.1) mmol/L Chloride Pending 103 (98-107) mmol/L Carbon Dioxide Pending 26.7 (21.0-32.0) mmol/L Anion Gap Pending 12.3 H (3-11) mmol/L BUN Pending 20 H (7-18) mg/dL Creatinine Pending 0.8 (0.55-1.02) mg/dL Est GFR (CKD-EPI 2020) Pending 77.27 (mL/min/1.73m2) Glucose Pending 132 H (74-106) mg/dL Calcium Pending 9.6 (8.5-10.1) mg/dL Total Bilirubin 0.5 (0.2-1.0) mg/dL AST 27 (15-37) U/L ALT 36 (14-59) U/L Alkaline Phosphatase 102 (46-116) U/L Total Protein 8.3 H (6.4-8.2) g/dL Albumin 4.1 (3.4-5.0) g/dL Urine Color Yellow (Yellow) Urine Clarity Clear (Clear) Urine pH 5.5 (5-8) Ur Specific [place] >= 1.030 H (1.005-1.025) Urine Protein 30 H (Neg-Trace) mg/dL Urine Ketones Trace H (Negative) mg/dL Urine Blood Large H (Negative) Urine Nitrite Negative (Negative) Urine Bilirubin Negative (Negative) Urine Urobilinogen 0.2 (Up to 0.2) mg/dL Ur Leukocyte Esterase Trace H (Negative) Urine RBC 5-10 H (0-2) HPF Urine WBC 3-5 (0-5) HPF Ur Epithelial Cells Few (Negative) HPF Urine Crystals Mod Calcium Oxalate (Negative) HPF Urine Bacteria Few (Negative) HPF Urine Casts Negative (Negative) LPF Urine Mucus Trace (Negative) Urine Other Rare Renal (Negative) Ur Culture Indicated? No Urine Glucose Negative (Negative) mg/dL 04/05/25 22:50 Urine Culture - Pending Urine - Clean Catch Intake and Output - 24 Hour Total 04/05/25 22:33 thru 04/06/25 02:00 Intake Total 1200 Balance 1200 Weight 95.254 kg Intake: IV 1200 Falls Risk Assessment History of Falls No History 04/05/25 22:49 Contributing Factors No Factors 04/05/25 22:49 Ambulatory Aids Independent 04/05/25 22:49 Tubes/Lines With any additional score 04/05/25 22:49 Gait Evaluation No gait disturbance 04/05/25 22:49 Cognition No cognitive impairment 04/05/25 22:49 Fall Total Score 20 04/05/25 22:49 Level of Risk Standard/Low Risk 04/05/25 22:49 Problems (Last Reviewed 10/02/24 @ 12:57 by Nadja Chaudhari MD) Ureteral stone with hydronephrosis (Acute) Mild cognitive impairment (Acute) CAD (coronary artery disease) (Chronic) Hypothyroidism, acquired (Acute) Seronegative rheumatoid arthritis (Chronic) Essential hypertension (Acute 05/15/13) v v v v v v v v v Sending and/or Receiving Nurses: Please use comment section below to note any information pertinent to the patient hand-off not included above. Information / Comments: Pt presents to ED with R sided flank pain, Vomitting x5 since 1800 on 04/05. CT + for 4mm renal calculi. UTI +. Pt is A&Ox4, ind with all ADLs. NPO for urology consult in AM and possible lithotripsy. Report received from: Holli De Dios RN
[2025-04-06] MEDS: DEXTROSE 5%-LACTATED RINGERS 1,000 ML 30 ML IV (03:45)
[2025-04-06] MEDS: Levothyroxine 125 MCG TAB PO (05:57)
[2025-04-06 06:37] LABS: Anion Gap 4.2 mmol/L (3-11); BUN 14 mg/dL (7-18); CO2 30.8 mmol/L (21.0-32.0); Calcium 9.1 mg/dL (8.5-10.1); Chloride 107 mmol/L (98-107); Estimated GFR 90.70 (mL/min/1.73m2); Glucose 121 mg/dL (74-106); Potassium 3.8 mmol/L (3.5-5.1); Sodium 142 mmol/L (136-145)
--- NOTE | 2025-04-06 07:01 | W.ANESPRE ---
General Info Date of Service Date Performed: 04/06/25 Height: 5 ft 2 in Weight: 95.98 kg Body Mass Index (BMI): 38.7 Meds Allergies and Home Medications Allergies Allergy/AdvReac Type Severity Reaction Status Date / Time atorvastatin AdvReac LFTS Verified 01/28/25 11:00 fentanyl AdvReac CRAZY Verified 01/28/25 11:00 BEHAVIOR Home Medication ?Medication ?Instructions ?Recorded prednisone 1 mg tablet 2 mg PO DAILY 09/29/22 aspirin 81 mg chewable tablet 81 mg PO DAILY 07/17/23 [id number]-[id number] 18 1 tab PO DAILY 07/18/23 mg-0.4 mg tablet alprazolam 0.25 mg tablet See Rx Instructions PO .COMPLEX 07/31/24 Held on 10/24/24. PRN anxiety #25 tabs Instructions: Adverse Reaction omeprazole 40 mg capsule,delayed 40 mg PO DAILY #90 caps 09/17/24 release amlodipine 5 mg tablet 5 mg PO BID #180 tabs 10/24/24 nitroglycerin 0.4 mg sublingual 0.4 mg sublingual Q5M PRN chest 10/24/24 tablet pain #30 tabs rosuvastatin 20 mg tablet 20 mg PO QHS #90 tabs 10/24/24 [facility] 1 tab PO DAILY 11/05/24 magnesium citrate 125 mg capsule 125 mg PO DAILY 11/05/24 etanercept 50 mg/mL (1 mL) 50 mg subcut QWEEK 12/10/24 subcutaneous pen injector (Enbrel Synchronizedick) memantine 10 mg tablet 10 mg PO BID #60 tabs 12/10/24 metoprolol succinate 50 mg 50 mg PO DAILY #90 tabs 12/25/24 tablet,extended release 24 hr levothyroxine 125 mcg tablet See Rx Instructions .Route 01/23/25 .COMPLEX #90 tabs duloxetine 60 mg capsule,delayed 60 mg PO DAILY #90 ea 02/13/25 release donepezil 10 mg tablet 10 mg PO DAILY #30 tabs 04/01/25 nystatin 100,000 unit/mL oral 5 ml PO DAILY 04/06/25 suspension Current Visit Medications: Current Medications Generic Name Dose Route Start Last Admin Trade Name Freq PRN Reason Stop Dose Admin Acetaminophen 650 mg 04/06/25 02:26 Acetaminophen 325 Mg Tab PO Q4H PRN PRN Amlodipine Besylate 5 mg 04/06/25 08:30 Amlodipine 5 Mg Tab PO BID [facility] Aspirin 81 mg 04/06/25 08:30 Aspirin 81 Mg Chew PO DAILY [facility] Donepezil HCl 10 mg 04/06/25 08:30 Donepezil 5 Mg Tab PO DAILY [facility] Duloxetine HCl 60 mg 04/06/25 08:30 Duloxetine 30 Mg Cap PO DAILY [facility] Enoxaparin Sodium 40 mg 04/06/25 08:30 Enoxaparin 40 Mg/0.4 Ml Syr SC DAILY [facility] Dextrose/Lactated Ringer's 1,000 mls @ 30 mls/hr 04/06/25 02:30 04/06/25 03:45 Dextrose 5%-Lr IV 30 mls/hr INFUSION [facility] Administration Ceftriaxone Sodium/Dextrose 1 gm in 50 mls @ 100 mls/hr 04/06/25 21:00 Rocephin IVPB Q24H [facility] IV Miscellaneous Supplies 1 each 04/05/25 23:00 Iv Access-Emergency Dept IV DIRECTED [facility] Levothyroxine Sodium 125 mcg 04/06/25 06:00 04/06/25 05:57 Levothyroxine 125 Mcg Tab PO 125 mcg DAILY@0600 [facility] Administration Memantine 10 mg 04/06/25 08:30 Memantine 5 Mg Tab PO BID [facility] Metoprolol Succinate 50 mg 04/06/25 08:30 Metoprolol Cr 50 Mg Tabcr PO DAILY [facility] Morphine Sulfate 4 mg 04/06/25 03:14 Morphine 4 Mg/Ml Syr IVP Q6H PRN PRN Omeprazole 40 mg 04/06/25 07:30 Omeprazole 20 Mg Capcr PO DAILY@0730 [facility] Ondansetron HCl 4 mg 04/06/25 03:24 Ondansetron 4 Mg/2 Ml Vial IVP Q8H PRN PRN Polyethylene Glycol 17 gm 04/06/25 02:26 Polyethylene Glycol 3350 17 Gm Packet PO DAILY PRN PRN Constipation Prednisone 2 mg 04/06/25 08:30 Prednisone 1 Mg Tab PO DAILY [facility] Rosuvastatin Calcium 20 mg 04/06/25 20:00 Rosuvastatin 20 Mg Tab PO QPM [facility] Sodium Chloride 0 ml 04/05/25 22:48 Normal Saline Flush 10 Ml Syr IVP PRN PRN Sodium Chloride 0 ml 04/06/25 08:30 Normal Saline Flush 10 Ml Syr IVP BID [facility] Sodium Chloride 0 ml 04/05/25 22:48 Normal Saline 10 Ml Vial IJ DIRECTED PRN Tamsulosin HCl 0.4 mg 04/06/25 08:30 Tamsulosin 0.4 Mg Capcr PO DAILY [facility] PFSH Active Problems Active Problems: Problem Status Onset Code Ureteral stone with hydronephrosis Acute N13.2 Trochanteric bursitis, right hip Acute M70.61 Mild cognitive impairment Acute G31.84 Painful total knee replacement, right Acute T84.84XA, Z96.651 Painful total knee replacement, left Acute T84.84XA, Z96.652 Acquired deformity of right foot Acute M21.961 CAD (coronary artery disease) Chronic I25.10 Word finding difficulty Chronic R47.89 Class 2 obesity due to excess calories with body mass index (BMI) of 38.0 to 38.9 in adult Acute E66.09, Z68.38 Osteoarthritis of right hip Acute M16.11 Hypothyroidism, acquired Acute E03.9 Seronegative rheumatoid arthritis Chronic M06.00 Carpal tunnel syndrome of left wrist Chronic G56.02 Anxiety Chronic F41.9 Non-alcoholic fatty liver disease Acute K76.0 Vitamin D deficiency Acute 10/22/16 E55.9 Polymyalgia rheumatica Acute 03/29/12 M35.3 Essential hypertension Acute 05/15/13 I10 Depressive disorder Chronic F32.9 Difficult airway for intubation Acute T88.4XXA Medical History Medical History Ureteral obstruction, left 8mm obstructing stone, hydronephrosis History of COVID-19 10/2020-URI symptoms decreased taste and smell Low grade squamous intraepithelial lesion on cytologic smear of cervix (LGSIL) (04/11/17) 2016 colpo directed biopsies showed inflammation but no dysplasia. 2017 Pap - low-grade ISH. Negative HPV. Global directed biopsies - low-grade ISH. Vaginal estrogen recommended for 1 year with repeat code testing in 2018. Kidney stone (05/16/13) 2.2 cm staghorn left kidney (surgery to remove at [facility] 2012) Crohn's disease (02/01/12) colectomy with ileostomy [facility] hepato/gastro -2015: ileostomy and fibroscan (no liver fibrosis; tx= diet, weight) Primary malignant neoplasm of thyroid gland 2011. S/P thyroidectomy. No XRT. Endometrial cancer 04/201414. Grade 1, Stage 1. s/p supracervical hysterectomy [facility]. No chemo or radiation required. Yearly paps of cervix recommended. Hyperlipidemia Primary malignant neoplasm of colon 2010 - mass distinct from Crohns. Surgical History Surgical History S/P cystoscopy with ureteral stent placement (~10/21/23) [facility] S/P coronary artery stent placement (06/2023) mid segment of LAD - 1x FIDELINA Staghorn calculus S/P JESÚS-BSO (~2013) supracervical JESÚS/BSO at [facility] for endometrial CA stage 1, grade1 S/P cholecystectomy (~2007) S/P shoulder surgery Status post total bilateral knee replacement S/P thyroidectomy (~2011) S/P ileostomy (~2005) S/P colectomy Dilation and curettage (04/22/14) hysteroscopy and D+C. Final path result: complex endometrial hyperplasia with atypia. Tobacco Smoking/Tobacco Use Status: Never Passive smoking exposure: Yes Second hand exposure: Yes Alcohol Alcohol Intake: never Substance Use Substance use: Never Substance use type: does not use Prental History History 3 Para Hx # Term Pregnancies 3 Multiple births Hx # Pregnancies Ectopic pregnancies AB induced Hx Number of Living Children AB spontaneous Vital Signs and Lab Results Vital Signs Most Recent Vital Signs in EMR: Most Recent Vital Signs Temp Pulse Resp BP Pulse Ox 36.4 C L 80 18 171/70 H 96 04/06/25 04:43 04/06/25 04:43 04/06/25 04:43 04/06/25 04:43 04/06/25 04:43 Lab Results 04/05/25 23:01 04/06/25 05:55 Complete Blood Count: WBC, (4.4-10.8) 11.62 10^3/uL H 04/05/25, 23:01 RBC, (3.93-5.22) 4.66 10^6/uL 04/05/25, 23:01 Hgb, (11.2-15.7) 14.6 g/dL 04/05/25, 23:01 Hct, (36.0-46.0) 44.8 % 04/05/25, 23: Plt Count, (130-400) 334 10^3/uL 04/05/25, 23: Complete Metabolic Panel: Sodium, (136-145) 142 mmol/L Today, 05:55 Potassium, (3.5-5.1) 3.8 mmol/L Today, 05:55 Chloride, (98-107) 107 mmol/L Today, 05:55 Carbon Dioxide, (21.0-32.0) 30.8 mmol/L Today, 05:55 BUN, (7-18) 14 mg/dL Today, 05:55 Creatinine, (0.55-1.02) 0.7 mg/dL Today, 05:55 Est GFR (CKD-EPI 2020), (mL/min/1.73m2) 90.70 Today, 05:55 Calcium, (8.5-10.1) 9.1 mg/dL Today, 05:55 Albumin, (3.4-5.0) 4.1 g/dL 04/05/25, 23: Glucose, (74-106) 121 mg/dL H Today, 05:55 Liver Function Panel: ALT, (14-59) 36 U/L 04/05/25, 23: AST, (15-37) 27 U/L 04/05/25, 23:01 Anesthesia Assessment and Plan Anesthesia History Personal History: No History of Anesthesia Complications Family History: No Family History of Anesthesia Complications Exercise Tolerance Exercise Tolerance: Unknown (doesn't go up stairs due to arthritis, can walk distances and doesn't get overly winded. ) Cardiac & Pulmonary Exam Cardiac Exam: Normal S1/S2 Heart Sounds Pulmonary Exam: Clear Bilateral Breath Sounds Implantable Cardiac Device Does patient have a Pacemaker or an ICD?: No Airway Exam Known Difficult Airway: No Mallampati Class: 4 Mouth Opening: Narrow (< 3cm) Thyromental Distance: Less than 3 cm Neck Range of Motion: Full ROM Neck Circumference: Normal Teeth Condition: Normal Dentition ASA Classification ASA Score: ASA 3 Emergency Case?: No NPO Status NPO Status: NPO Clears >2 hours, Solids >8 hours Anesthesia Plan Resuscitation Status: Full Code Anesthesia Technique: General Anesthesia Airway Planned: Natural Airway Monitors Used: Standard Monitors Preoperative Comments:: 74 yo for stent placement. Sig PMHx: HTN (amlodipine, metoprolol), CAD (stent to LAD 2022), GERD (omeprazole), hypothyroid (on replacement), polymyalgia rheumatica/RA (etanercept, prednisone), NAFLD, dementia (memantine, donepezil), depression. never smoker. ECG: sinus. LVH. ECHO: LVEF 57%, no WMA. no sig valve issues. Previous Anes: - Cysto/[facility], dexmed, prop, phenyl gtt, LMA 4, easy mask. - Hyst/[facility], masked with OPA, VL grade 2.
[2025-04-06] MEDS: Memantine 5 MG TAB 10 MG PO (08:01)
[2025-04-06] MEDS: Omeprazole 20 MG CAPCR 40 MG PO (08:01)
[2025-04-06] MEDS: Tamsulosin 0.4 MG CAPCR PO (08:01)
[2025-04-06] MEDS: amLODIPine 5 MG TAB PO (08:02)
[2025-04-06] MEDS: Metoprolol CR 50 MG TABCR PO (08:02)
[2025-04-06] MEDS: Aspirin 81 MG CHEW PO (08:02)
[2025-04-06] MEDS: Donepezil 5 MG TAB 10 MG PO (08:02)
[2025-04-06] MEDS: DULoxetine 30 MG CAP 60 MG PO (08:03)
[2025-04-06] MEDS: Normal Saline Flush 10 ML SYR IVP (08:04)
--- NOTE | 2025-04-06 09:10 | UCONE_ITS ---
Date of service: 04/06/25 Time of Service: 09:11 Assessment and Plan Assessment and plan (1) Ureteral stone with hydronephrosis: Status: Acute Assessment and plan: Given her symptoms and her immunocompromised state, we are concerned about the possibility of an underlying infection. We have agreed to go ahead and place a ureteral stent today with the expectation that we will be able to discharge her with oral antibiotics. If the stone has not passed in a week or so, we can then make arrangements for ureteroscopy and definitive stone treatment. History of Present Illness History of Present Illness Chief Complaint: Right ureteral stone Narrative: This is a 74-year-old woman who has a history of kidney and ureteral stones. She has had surgical procedures done at [facility]. Her most recent procedure was ureteroscopy for the left ureteral stone about a year ago. Her stones have been bilateral. She was able to pass 1 stone from her right side. Otherwise, she has required both ureteroscopy and percutaneous nephrolithotomy. She presented to our emergency department last evening with right flank pain nausea and vomiting. She had significant chills but no documented fever. She is on immunosuppressants for rheumatoid arthritis. She was evaluated in the emergency department and she was identified as having a proximal right ureteral stone. Her urinalysis was reassuring, but her white blood count was a bit elevated. Because of the chills, she was admitted for hydration and antibiotics. As of this morning, she feels much better with no significant pain. Her nausea has improved. Her chills have improved. She has not passed her stone as far she is aware. Review of Systems Narrative: No No vision change or dysphasia Hypothyroidism. No diabetes No shortness of breath, cough or hemoptysis No chest pain or palpitations No hepatitis, ulcers, jaundice No seizures, strokes or peripheral neuropathy No bleeding disorders or anemia Rheumatoid arthritis. No gout PFSH All Active Problems (Updated 04/06/25 @ 04:26 by Torrey Jenkins DO) Ureteral stone with hydronephrosis (Acute) Trochanteric bursitis, right hip (Acute) Mild cognitive impairment (Acute) Painful total knee replacement, right (Acute) Painful total knee replacement, left (Acute) Acquired deformity of right foot (Acute) CAD (coronary artery disease) (Chronic) Word finding difficulty (Chronic) Class 2 obesity due to excess calories with body mass index (BMI) of 38.0 to 38.9 in adult (Acute) Osteoarthritis of right hip (Acute) DEPO MEDROL 07/05/23 Hypothyroidism, acquired (Acute) Seronegative rheumatoid arthritis (Chronic) on Humira, prednisone. Managed at [facility] Carpal tunnel syndrome of left wrist (Chronic) Anxiety (Chronic) 2020-Rx alprazolam occasional panic-like episodes-drug contract through [facility] Non-alcoholic fatty liver disease (Acute) Vitamin D deficiency (Acute 10/22/16) Polymyalgia rheumatica (Acute 03/29/12) Dr Wood ([facility]- vs seronegative RA) Essential hypertension (Acute 05/15/13) Depressive disorder (Chronic) had side effects with bupropion, tolerating duloxetine. Difficult airway for intubation (Acute) Medical History Ureteral obstruction, left 8mm obstructing stone, hydronephrosis History of COVID-19 10/2020-URI symptoms decreased taste and smell Low grade squamous intraepithelial lesion on cytologic smear of cervix (LGSIL) (04/11/17) 2016 colpo directed biopsies showed inflammation but no dysplasia. 2017 Pap - low-grade ISH. Negative HPV. Global directed biopsies - low- grade ISH. Vaginal estrogen recommended for 1 year with repeat code testing in 2018. Kidney stone (05/16/13) 2.2 cm staghorn left kidney (surgery to remove at [facility] 2012) Crohn's disease (02/01/12) colectomy with ileostomy [facility] hepato[place]gastro -2015: ileostomy and fibroscan (no liver fibrosis; tx= diet, weight) Primary malignant neoplasm of thyroid gland 2011. S/P thyroidectomy. No XRT. Endometrial cancer 04/201414. Grade 1, Stage 1. s/p supracervical hysterectomy [facility]. No chemo or radiation required. Yearly paps of cervix recommended. Hyperlipidemia Primary malignant neoplasm of colon 2010 - mass distinct from Crohns. Surgical History S/P cystoscopy with ureteral stent placement (~10/21/23) [facility] S/P coronary artery stent placement (06/2023) mid segment of LAD - 1x FIDELINA Staghorn calculus S/P JESÚS-BSO (~2013) supracervical JESÚS/BSO at [facility] for endometrial CA stage 1, grade1 S/P cholecystectomy (~2007) S/P shoulder surgery Status post total bilateral knee replacement S/P thyroidectomy (~2011) S/P ileostomy (~2005) S/P colectomy Dilation and curettage (04/22/14) hysteroscopy and D+C. Final path result: complex endometrial hyperplasia with atypia. Family History Mother , AGE 82 Essential hypertension Hyperlipidemia Father , age 57 Essential hypertension Heart disease Myocardial infarction Stroke Sister Diabetes Essential hypertension Heart disease Pituitary adenoma Asthma Brother Essential hypertension Ulcerative colitis Paternal Grandfather Heart disease Paternal Grandmother Diabetes Sister Diabetes Essential hypertension Depression Asthma Heart disease Alcohol abuse Sister Essential hypertension Heart disease Son Asthma Son Essential hypertension Hyperlipidemia Depression Daughter Asthma Depression Social History (Updated 04/06/25 @ 03:08 by Robert Pereira) Smoking/Tobacco Use Status: Never Second Hand Exposure: Yes Smoking risk assessment performed?: Yes Alcohol Intake: never Drug use: Never Substance use type: does not use Adopted: No Caregiver/Support person: No Household members: spouse Housing: house Number of Children: 3 number of grandchildren: 4 Communication Needs: None Education Level: high school Do you need help understanding health information?: Never 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 [employer] Pets and animals: No Do you think of yourself as: decline to answer Current gender identity: female and decline to answer What is your relationship status?: How often do you talk on the phone with friends or family?: three or more times per week How often do you get together with friends or relatives?: once per week How often do you attend yarsanism or quaker services?: decline to answer Do you belong to any clubs or organized social groups?: decline to answer Panel score (0-1 are the most socially isolated patients): 2 What type of physical activity do you participate in: decline to answer Duration: decline to answer Frequency: decline to answer Shelby/Taoism: No preference Special shelby needs: No Seatbelt use: always Helmet use: No Drive intox or ride w/intox dedicated local truck driver: No Firearms in home: No Do you feel safe at home: Yes Do you feel safe in your relationship?: Yes Victim of physical abuse: No Victim of emotional abuse: No Victim of sexual abuse: No Additional Social history: Children. 1973 Victoria-2 granddaughters, 1975 Chi grandson and granddaughter, 1977 Vic-3 children. Lives with in [place]. Moved up from [place] in early Female Reproductive History Menstrual Menopause type: surgical History History 2 3 Para Hx # Term Pregnancies 3 Multiple births Hx # Pregnancies Ectopic pregnancies AB induced Hx Number of Living Children AB spontaneous Exam Narrative Exam Narrative: At the time of our encounter, she appears quite comfortable She does not appear septic or toxic Her vital signs are documented elsewhere Her chest wall motion is normal. She does not appear short of breath at rest Her abdomen is obese but soft with no peritoneal signs She is awake and alert I reviewed her CT scan on the PACS system. At the time of the scan, she had a proximal right ureteral stone with Results Last Vital Signs Temp 36.5 C 04/06/25 07:23 Pulse 71 04/06/25 07:23 Resp 18 04/06/25 07:23 BP 129/55 L 04/06/25 07:23 Pulse Ox 93 04/06/25 07:23 Labs 04/05/25 23:01 04/06/25 05:55 Labs: Laboratory Results - last 24 hr 04/05/25 04/05/25 04/06/25 22:50 23:01 05:55 WBC 11.62 H RBC 4.66 Hgb 14.6 Hct 44.8 MCV 96 H MCH 31.3 MCHC 32.6 RDW 14.2 Plt Count 334 MPV 9.0 Immature Gran % 0.4 Neutrophils % 76.5 Lymphocytes % 13.3 Monocytes % 8.6 Eosinophils % 0.6 Basophils % 0.6 Nucleated RBC % 0.0 Absolute Neutrophils 8.89 H Absolute Lymphocytes 1.55 Absolute Monocytes 1.00 H Absolute Eosinophils 0.07 Absolute Basophils 0.07 Sodium 142 142 Potassium 3.5 3.8 Chloride 103 107 Carbon Dioxide 26.7 30.8 Anion Gap 12.3 H 4.2 BUN 20 H 14 Creatinine 0.8 0.7 Est GFR (CKD-EPI 2020) 77.27 90.70 Glucose 132 H 121 H Calcium 9.6 9.1 Total Bilirubin 0.5 AST 27 ALT 36 Alkaline Phosphatase 102 Total Protein 8.3 H Albumin 4.1 Urine Color Yellow Urine Clarity Clear Urine pH 5.5 Ur Specific Purdys >= 1.030 H Urine Protein 30 H Urine Ketones Trace H Urine Blood Large H Urine Nitrite Negative Urine Bilirubin Negative Urine Urobilinogen 0.2 Ur Leukocyte Esterase Trace H Urine RBC 5-10 H Urine WBC 3-5 Ur Epithelial Cells Few Urine Crystals Mod Calcium Oxalate Urine Bacteria Few Urine Casts Negative Urine Mucus Trace Urine Other Rare Renal Ur Culture Indicated? No Urine Glucose Negative
[2025-04-06] MEDS: cefTRIAXone 1 GM/50 ML BAG IVPB (09:52)
--- NOTE | 2025-04-06 09:59 | INITIAL_ITS ---
Date of service: 04/06/25 Time of Service: 09:59 Care Management Initial Assmt Initial Assessment Reason for Hospitalization: Ureteral stone with hydronephrosis Functional Status/Living Situation Patient Presentation: Charlette resides in [place] with her Lavelle. She drives and is active and independent at baseline. She is originally from [place] and moved to [place] 23 years ago. Her daughter Bonnie and son chi, still live in [place]. Her son Isael resides in [place] and is very supportive. Charlette is interested in learning more about available food pantries, CM will place a referral to [facility]. Town of Residence: [place] Resides with: Spouse (Lavelle) Natural Supports: Lavelle Daughter Bonnie Whelan Employment Status: Retired Instrumental Activities of Daily Living (ADLs): Independent Medications Medication Management: No Issues/Barriers identified Physical Functioning/Mobility Assistive Device: None Advance Directives Advance Directives: Do you have an Advance Directive: Y , 11:09 AD On File at [facility]: Y 10/02/24, 13:55 Date Asked AD Date Reviewed 04/06/25 Today, 03:07 COLST On File at [facility] COLST Date Scanned Code Status Resuscitation Status Full Code Insurance Coverage/Financial Issues Insurance: Medicare Part A & B - [id number] [employer] Senior Supplemental Ins - [id number] Care Team Visit Care Team Role Provider Type Mehdi Johnson MD MD [facility] STAFF PHYSICIAN Latha Aguirre MD Primary Care Provider [facility] STAFF PHYSICIAN Constantino Corbin MD Other Providers [facility] STAFF PHYSICIAN Torrey Jenkins DO Emergency Provider [facility] STAFF PHYSICIAN Robert Pereira Admit Provider [facility] STAFF PHYSICIAN Attending Provider Discharge Potential Discharge Needs: Consult (Urology) and PCP F/U Appt Anticipated Barriers to Discharge: None Identified Patient/Family Education Needs: Review discharge instructions, discuss Ask Me Three Transportation: Private vehicle Plan: Anticipate, Charlette will discharge home via private vehicle with family. She will follow up with primary care and urology and continue per discharge plan of care as directed. No new services are anticipated at this time. CM will follow. Social Determinants of Health Screening Social Determinants of health last assessed in clinic: 04/06/25 Will the Patient Participate in the Screening?: Yes Do you worry about having a steady place to live?: no Problems where you live: no known problems In the past 12 months, have you had to go without electric, gas, oil or water in your home?: no 1. Within the past 12 months, we worried whether our food would run out before we got money to buy more.: Never true 2. Within the past 12 months, the food we bought just didn't last and we didn't have money to get more.: Never true Has lack of transportation kept you from medical appointments or from doing things needed for daily living?: no Has anyone in your life made you feel unsafe or unsupported?: no How hard is it for you to pay for the very basics like food, housing, medical care, and heating? Would you say it is:: Not hard at all Do you want help finding or keeping work or a job?: I do not need or want help If for any reason you need help with day-to-day activities such as bathing, preparing meals, shopping, managing finances, etc., do you get the help you need?: I don?t need any help How often do you feel lonely or isolated from those around you?: Never Do you speak a language other than Estonian at home?: No Does the patient want assistance with any of the above?: No PFSH All Active Problems (Updated 04/06/25 @ 04:26 by Torrey Jenkins DO) Ureteral stone with hydronephrosis (Acute) Trochanteric bursitis, right hip (Acute) Mild cognitive impairment (Acute) Painful total knee replacement, right (Acute) Painful total knee replacement, left (Acute) Acquired deformity of right foot (Acute) CAD (coronary artery disease) (Chronic) Word finding difficulty (Chronic) Class 2 obesity due to excess calories with body mass index (BMI) of 38.0 to 38.9 in adult (Acute) Osteoarthritis of right hip (Acute) DEPO MEDROL 07/05/23 Hypothyroidism, acquired (Acute) Seronegative rheumatoid arthritis (Chronic) on Humira, prednisone. Managed at [facility] Carpal tunnel syndrome of left wrist (Chronic) Anxiety (Chronic) 2020-Rx alprazolam occasional panic-like episodes-drug contract through [facility] Non-alcoholic fatty liver disease (Acute) Vitamin D deficiency (Acute 10/22/16) Polymyalgia rheumatica (Acute 03/29/12) Dr Wood ([facility]- vs seronegative RA) Essential hypertension (Acute 05/15/13) Depressive disorder (Chronic) had side effects with bupropion, tolerating duloxetine. Difficult airway for intubation (Acute) Medical History Ureteral obstruction, left 8mm obstructing stone, hydronephrosis History of COVID-19 10/2020-URI symptoms decreased taste and smell Low grade squamous intraepithelial lesion on cytologic smear of cervix (LGSIL) (04/11/17) 2016 colpo directed biopsies showed inflammation but no dysplasia. 2017 Pap - low-grade ISH. Negative HPV. Global directed biopsies - low- grade ISH. Vaginal estrogen recommended for 1 year with repeat code testing in 2018. 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 S/P thyroidectomy. No XRT. Endometrial cancer 04/201414. Grade 1, Stage 1. s/p supracervical hysterectomy [facility]. No chemo or radiation required. Yearly paps of cervix recommended. Hyperlipidemia Primary malignant neoplasm of colon 2010 - mass distinct from Crohns. Surgical History S/P cystoscopy with ureteral stent placement (~10/21/23) [facility] S/P coronary artery stent placement (06/2023) mid segment of LAD - 1x FIDELINA Staghorn calculus S/P JESÚS-BSO (~2013) supracervical JESÚS/BSO at [facility] for endometrial CA stage 1, grade1 S/P cholecystectomy (~2007) S/P shoulder surgery Status post total bilateral knee replacement S/P thyroidectomy (~2011) S/P ileostomy (~2005) S/P colectomy Dilation and curettage (04/22/14) hysteroscopy and D+C. Final path result: complex endometrial hyperplasia with atypia. Family History Mother , AGE 82 Essential hypertension Hyperlipidemia Father , age 57 Essential hypertension Heart disease Myocardial infarction Stroke Sister Diabetes Essential hypertension Heart disease Pituitary adenoma Asthma Brother Essential hypertension Ulcerative colitis Paternal Grandfather Heart disease Paternal Grandmother Diabetes Sister Diabetes Essential hypertension Depression Asthma Heart disease Alcohol abuse Sister Essential hypertension Heart disease Son Asthma Son Essential hypertension Hyperlipidemia Depression Daughter Asthma Depression Social History (Updated 04/06/25 @ 03:08 by Robert Pereira) Smoking/Tobacco Use Status: Never Second Hand Exposure: Yes Smoking risk assessment performed?: Yes Alcohol Intake: never Drug use: Never Substance use type: does not use Adopted: No Caregiver/Support person: No Household members: spouse Housing: house Number of Children: 3 number of grandchildren: 4 Communication Needs: None Education Level: high school Do you need help understanding health information?: Never 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 Pets and animals: No Do you think of yourself as: decline to answer Current gender identity: female and decline to answer What is your relationship status?: How often do you talk on the phone with friends or family?: three or more times per week How often do you get together with friends or relatives?: once per week How often do you attend zoroastrian or church services?: decline to answer Do you belong to any clubs or organized social groups?: decline to answer Panel score (0-1 are the most socially isolated patients): 2 What type of physical activity do you participate in: decline to answer Duration: decline to answer Frequency: decline to answer Shelby/Oriental Orthodox: No preference Special shelby needs: No Seatbelt use: always Helmet use: No Drive intox or ride w/intox semi driver: No Firearms in home: No Do you feel safe at home: Yes Do you feel safe in your relationship?: Yes Victim of physical abuse: No Victim of emotional abuse: No Victim of sexual abuse: No Additional Social history: Children. 1973 Victoria-2 granddaughters, 1975 Chi grandson and granddaughter, 1977 Vic-3 children. Lives with in [place]. Moved up from [place] in early Female Reproductive History Menstrual Menopause type: surgical History History 3 Para Hx # Term Pregnancies 3 Multiple births Hx # Pregnancies Ectopic pregnancies AB induced Hx Number of Living Children AB spontaneous
[2025-04-06] MEDS: Lidocaine 2% Jelly 11 ML SYR (14:29)
[2025-04-06] MEDS: Omnipaque 300 MG/ML 50 ML BTL (14:29)
--- NOTE | 2025-04-06 14:36 | ROE_ITS ---
Operative Note Operative Note PRE-OP DIAGNOSIS: Right ureteral stone POST-OP DIAGNOSIS: same PROCEDURE: Cystoscopy, right retrograde pyelogram, insert right ureteral stent SURGEON: Constantino Corbin ANESTHESIA TYPE: Local By Surgeon and General:No Airway Refer to Anesthesia Record ESTIMATED BLOOD LOSS: 5 PATHOLOGY: none sent COMPLICATIONS: None Patient was transported to: floor Patient's condition: stable Implants: 4.8 Danish by 22 to 30 cm right ureteral stent Indications: This is a 74-year-old woman who has a past history of kidney stones. She presented to the emergency department last evening with right flank pain. She was found to have a right proximal ureteral stone. She had a slight leukocytosis and chills concerning for an underlying infection. She presents for stent placement Findings: Cloudy urine draining from right kidney after the stent was placed Procedure Description: The patient was brought to the operating room on 04/06/2025. After successful induction of general anesthesia, she was placed in the dorsal lithotomy position. Her genitalia was prepped and draped. 2% Xylocaine jelly was instilled into the urethra to act as a local anesthetic. A 22 Danish rigid cystoscope was passed through the urethra into the bladder. The bladder was inspected with a 30 degree lens. The base of the bladder had descended a bit consistent with a mild cystocele. Ureteral orifices appeared normal in configuration. The right orifice was cannulated with a 5 Danish access catheter. A retrograde pyelogram was obtained by injecting Omnipaque through the access catheter under fluoroscopic guidance. A filling defect in the right proximal ureter was outlined. A guidewire was then advanced through the lumen of the access catheter and the catheter was removed. Cloudy urine could be seen draining from the right ureteral orifice once the wire was placed. A 4.8 Danish variable length stent was then advanced over the wire. The proximal end of the stent was curled in the upper pole calyx and the distal and was curled within the bladder. The positioning of the stent was confirmed both fluoroscopically and cystoscopically. The bladder was emptied and the cystoscope was withdrawn. The patient tolerated the procedure well with no complications. We will make arrangements to bring her back to the operating room as an outpatient for ureteroscopy and treatment of her right proximal ureteral stone Date of Procedure: 04/06/25
--- NOTE | 2025-04-06 14:42 | DI.RAD_ITS ---
Exam(s) XR RETROGRADE IN OR EXAM: XR RETROGRADE IN OR CLINICAL HISTORY: right ureteral stone. TECHNIQUE: Fluoroscopy was provided for the referring physician for guidance with performing retrograde procedure. COMPARISON: CT CT ABDOMEN PELVIS WO from 04/06/2025 FINDINGS: Please see procedure note for details. Fluoro time: 18.5 seconds RADIATION DOSE DELIVERED: venu Rivero=6.2 mGy
--- NOTE | 2025-04-06 14:45 | W.ANESPOSTOP ---
Postoperative Evaluation Date, Time and Location Date Performed: 04/06/25 Time Performed: 14:45 Patient Location: PACU Vital Signs Most Recent Imported Vital Signs: Most Recent Vital Signs Temp Pulse Resp BP Pulse Ox 36.4 C L 74 16 118/49 L 93 04/06/25 14:41 04/06/25 14:41 04/06/25 14:41 04/06/25 14:41 04/06/25 14:41 Pain Score Most Recent Pain Score: Most Recent Pain Score Pain Level [Rt flank] 2 04/06/25 08:14 Pain Level 0 04/06/25 04:43 Assessment Mental Status: Arousable with meaningful communication Airway and Respiratory Function: Patent airway with normal (patient baseline) respiratory exam Cardiovascular Function: Hemodynamically Stable Hydration Status: Adequately Hydrated Nausea & Vomiting: No Nausea or Vomiting Pain: Pain is tolerable per patient Peripheral Nerve Block: Patient did not receive a nerve block
--- NOTE | 2025-04-06 15:50 | DSE_ITS ---
Date of service: 04/06/25 Time of Service: 15:50 DS: Diagnosis Discharge Diagnosis (1) Ureteral stone with hydronephrosis: Status: Acute Discharge Plan Disposition Patient Disposition: Home Condition: Good Discharge Details Reason For Visit: Nephrolithiasis, UTI Admit Date/Time: 04/06/25 02:26 Admit Provider: Robert Pereira Attending Provider: Robert Pereira Primary Care Provider: Latha Aguirre Hospital Course Hospital Course: Patient initially presented to the hospital with flank pain was found to have obstructing right ureteral stone and question of UTI. Patient was seen by urologist Dr. Corbin who took the patient to the OR and placed right ureteral stent with procedure going well and no complications. He recommended discharging the patient home with a weeks worth of cefpodoxime and recommended close outpatient follow-up with urology. Therefore, was determined that the patient was stable for discharge home. Home Meds and New Rx's Prescriptions: New cefpodoxime 200 mg tablet 200 mg PO BID 7 Days Qty: 14 0RF Rx Instructions: must administer with a meal/food Continued prednisone 1 mg tablet 2 mg PO DAILY wrlsmftjkweb-Rd-jgku-minerals 18-0.4 mg tablet 1 tab PO DAILY rosuvastatin 20 mg tablet 20 mg PO QHS Qty: 90 3RF nitroglycerin 0.4 mg tablet, sublingual 0.4 mg sublingual Q5M PRN (Reason: chest pain) Qty: 30 0RF Rx Instructions: do not exceed 3 doses per episode amlodipine 5 mg tablet 5 mg PO BID Qty: 180 3RF Enbrel SureClick 50 mg/mL (1 mL) pen injector 50 mg subcut QWEEK memantine 10 mg tablet 10 mg PO BID Qty: 60 2RF Rx Instructions: start after taking memantine 5mg bid for 1 weeks aspirin 81 mg tablet,chewable 81 mg PO DAILY magnesium citrate 125 mg capsule 125 mg PO DAILY Onnit Brain Focus and Memory capsule 1 tab PO DAILY Rx Instructions: Ingredients: B6: 10mg l-Tyrosine, L-Theanine, Oat Extract, Phosphatidylserine: 650mg Cats claw bark extract: 350mg L-Alpha glycerylphosphortlcholine: 240mg Bacopa leaves extract 100mg, Toothed Clubmoss whole Extract(400mcg) L-Leucine, Pterostilbene: 60mg metoprolol succinate 50 mg tablet extended release 24 hr 50 mg PO DAILY Qty: 90 3RF levothyroxine 125 mcg tablet See Rx Instructions .ROUTE .COMPLEX Qty: 90 0RF Dose Instruction: TAKE ONE TABLET BY MOUTH EVERY DAY Rx Instructions: TAKE ONE TABLET BY MOUTH EVERY DAY duloxetine 60 mg capsule,delayed release(DR/EC) 60 mg PO DAILY Qty: 90 3RF donepezil 10 mg tablet 10 mg PO DAILY Qty: 30 3RF nystatin 100,000 unit/mL suspension 5 ml PO DAILY Patient Comments: TAKE 5 ML BY MOUTH FOUR TIMES A DAY FOR 10 DAYS Held omeprazole 40 mg capsule,delayed release(DR/EC) 40 mg PO DAILY Qty: 90 3RF Hold Instructions: Resume on 04/13/25. Discontinued alprazolam 0.25 mg tablet See Rx Instructions PO .COMPLEX PRN (Reason: anxiety) Qty: 25 0RF Rx Instructions: PO PRN; 1/2-1 tab daily as needed for anxiety Discharge Instructions Activity:: Activity as Tolerated Equipment/Supplies:: No Equipment Needed Diet:: As Tolerated Discharge Orders Discharge Orders: Discharge Order (Routine); Ordered 04/06/25 Ordered By: Mehdi Johnson DS: Summary Time Spent with Patient providing and/or coordinating discharge services: Greater than 30 minutes Status at Discharge Functional status at discharge: independent ambulation Overall status at discharge: patient is back to baseline Mental Status: mental status grossly normal Speech and Movement: speech and movement normal Mood: congruent mood Affect: normal affect Exam Narrative Exam Narrative: Well-appearing female laying in bed in no acute distress, ANO x 4, heart regular rhythm, lungs good auscultation bilaterally, abdomen soft, nontender, nondistended Psych Mental Status: mental status grossly normal Speech and Movement: speech and movement normal Mood: congruent mood Affect: normal affect DS: Data Vitals/I&O Vitals and I&O: Vital Signs Temperature 98.2 F 04/06/25 15:22 Temperature Source Temporal Artery Scan 04/06/25 15:22 Pulse 65 04/06/25 15:22 Pulse Rhythm Regular 04/06/25 04:43 Pulse 69 04/06/25 15:02 Respiratory Rate 17 04/06/25 15:22 Respiratory Effort Normal, Non-Labored 04/06/25 04:43 Respiratory Depth Normal 04/06/25 04:43 Respiratory Pattern Normal 04/06/25 04:43 Blood Pressure 125/65 04/06/25 15:22 Blood Pressure Mean 85 04/06/25 15:22 Blood Pressure Position Supine 04/06/25 02:38 Pulse Oximetry 92 04/06/25 15:22 Respiratory End-tidal CO2 35 04/06/25 15:02 Oxygen Delivery Method Room Air 04/06/25 15:22 Oxygen Flow Rate 0 04/06/25 15:22 Pain Level 0 04/06/25 15:09 Comment rn notified 04/06/25 07:23 Intake & Output 04/05/25 04/06/25 04/06/25 17:59 05:59 17:59 Intake Total 1200 / 1200 520 / 520 Output Total 50 / 50 Balance 1200 / 1200 470 / 470 Weight 211 lb 9.6 oz 211 lb 9.6 oz Intake: IV 1200 / 1200 470 / 470 Oral 50 / 50 Output: Urine 50 / 50 Other: Urine Color Brown Urine Appearance Clear Cloudy Urine Odor None Comment s/p urinary stent placement Emesis Description None Data Completed and Pending Labs on day of discharge: Labs from last 24 hours 04/06/25 04/05/25 04/05/25 05:55 23:01 22:50 WBC 11.62 H RBC 4.66 Hgb 14.6 Hct 44.8 MCV 96 H MCH 31.3 MCHC 32.6 RDW 14.2 Plt Count 334 MPV 9.0 Immature Gran % 0.4 Neutrophils % 76.5 Lymphocytes % 13.3 Monocytes % 8.6 Eosinophils % 0.6 Basophils % 0.6 Nucleated RBC % 0.0 Absolute Neutrophils 8.89 H Absolute Lymphocytes 1.55 Absolute Monocytes 1.00 H Absolute Eosinophils 0.07 Absolute Basophils 0.07 Sodium 142 142 Potassium 3.8 3.5 Chloride 107 103 Carbon Dioxide 30.8 26.7 Anion Gap 4.2 12.3 H BUN 14 20 H Creatinine 0.7 0.8 Est GFR (CKD-EPI 2020) 90.70 77.27 Glucose 121 H 132 H Calcium 9.1 9.6 Total Bilirubin 0.5 AST 27 ALT 36 Alkaline Phosphatase 102 Total Protein 8.3 H Albumin 4.1 Urine Color Yellow Urine Clarity Clear Urine pH 5.5 Ur Specific Sedley >= 1.030 H Urine Protein 30 H Urine Ketones Trace H Urine Blood Large H Urine Nitrite Negative Urine Bilirubin Negative Urine Urobilinogen 0.2 Ur Leukocyte Esterase Trace H Urine RBC 5-10 H Urine WBC 3-5 Ur Epithelial Cells Few Urine Crystals Mod Calcium Oxalate Urine Bacteria Few Urine Casts Negative Urine Mucus Trace Urine Other Rare Renal Ur Culture Indicated? No Urine Glucose Negative 04/05/25 22:50 Urine - Clean Catch Urine Culture - Pending Preliminary micro results at discharge 04/05/25 22:50 Urine - Clean Catch Urine Culture - Pending PFSH All Active Problems (Updated 04/06/25 @ 04:26 by Torrey Jenkins DO) Ureteral stone with hydronephrosis (Acute) Trochanteric bursitis, right hip (Acute) Mild cognitive impairment (Acute) Painful total knee replacement, right (Acute) Painful total knee replacement, left (Acute) Acquired deformity of right foot (Acute) CAD (coronary artery disease) (Chronic) Word finding difficulty (Chronic) Class 2 obesity due to excess calories with body mass index (BMI) of 38.0 to 38.9 in adult (Acute) Osteoarthritis of right hip (Acute) DEPO MEDROL 07/05/23 Hypothyroidism, acquired (Acute) Seronegative rheumatoid arthritis (Chronic) on Humira, prednisone. Managed at [facility] [place] Carpal tunnel syndrome of left wrist (Chronic) Anxiety (Chronic) 2020-Rx alprazolam occasional panic-like episodes-drug contract through [facility] Non-alcoholic fatty liver disease (Acute) Vitamin D deficiency (Acute 10/22/16) Polymyalgia rheumatica (Acute 03/29/12) Dr Wood [place] [place] seronegative RA) Essential hypertension (Acute 05/15/13) Depressive disorder (Chronic) had side effects with bupropion, tolerating duloxetine. Difficult airway for intubation (Acute) Medical History Ureteral obstruction, left 8mm obstructing stone, hydronephrosis History of COVID-19 10/2020-URI symptoms decreased taste and smell Low grade squamous intraepithelial lesion on cytologic smear of cervix (LGSIL) (04/11/17) 2016 colpo directed biopsies showed inflammation but no dysplasia. 2017 Pap - low-grade ISH. Negative HPV. Global directed biopsies - low- grade ISH. Vaginal estrogen recommended for 1 year with repeat code testing in 2018. Kidney stone (05/16/13) 2.2 cm staghorn left kidney (surgery to remove at [facility] 2012) Crohn's disease (02/01/12) colectomy with ileostomy [facility] hepato/gastro : ileostomy and fibroscan (no liver fibrosis; tx= diet, weight) Primary malignant neoplasm of thyroid gland 2011. S/P thyroidectomy. No XRT. Endometrial cancer 04/201414. Grade 1, Stage 1. s/p supracervical hysterectomy [facility]. No chemo or radiation required. Yearly paps of cervix recommended. Hyperlipidemia Primary malignant neoplasm of colon 2010 - mass distinct from Crohns. Surgical History S/P cystoscopy with ureteral stent placement (~10/21/23) [facility] S/P coronary artery stent placement (06/2023) mid segment of LAD - 1x FIDELINA Staghorn calculus S/P JESÚS-BSO (~2013) supracervical JESÚS/BSO at [facility] for endometrial CA stage 1, grade1 S/P cholecystectomy (~2007) S/P shoulder surgery Status post total bilateral knee replacement S/P thyroidectomy (~2011) S/P ileostomy (~2005) S/P colectomy Dilation and curettage (04/22/14) hysteroscopy and D+C. Final path result: complex endometrial hyperplasia with atypia. Family History Mother , AGE 82 Essential hypertension Hyperlipidemia Father , age 57 Essential hypertension Heart disease Myocardial infarction Stroke Sister Diabetes Essential hypertension Heart disease Pituitary adenoma Asthma Brother Essential hypertension Ulcerative colitis Paternal Grandfather Heart disease Paternal Grandmother Diabetes Sister Diabetes Essential hypertension Depression Asthma Heart disease Alcohol abuse Sister Essential hypertension Heart disease Son Asthma Son Essential hypertension Hyperlipidemia Depression Daughter Asthma Depression Social History (Updated 04/06/25 @ 03:08 by Robert Pereira) Smoking/Tobacco Use Status: Never Second Hand Exposure: Yes Smoking risk assessment performed?: Yes Alcohol Intake: never Drug use: Never Substance use type: does not use Adopted: No Caregiver/Support person: No Household members: spouse Housing: house Number of Children: 3 number of grandchildren: 4 Communication Needs: None Education Level: high school Do you need help understanding health information?: Never 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 [employer] Pets and animals: No Do you think of yourself as: decline to answer Current gender identity: female and decline to answer What is your relationship status?: How often do you talk on the phone with friends or family?: three or more times per week How often do you get together with friends or relatives?: once per week How often do you attend rastafari or latter-day services?: decline to answer Do you belong to any clubs or organized social groups?: decline to answer Panel score (0-1 are the most socially isolated patients): 2 What type of physical activity do you participate in: decline to answer Duration: decline to answer Frequency: decline to answer Shelby/Tenriism: No preference Special shelby needs: No Seatbelt use: always Helmet use: No Drive intox or ride w/intox school bus driver/mechanic: No Firearms in home: No Do you feel safe at home: Yes Do you feel safe in your relationship?: Yes Victim of physical abuse: No Victim of emotional abuse: No Victim of sexual abuse: No Additional Social history: Children. 1973 Victoria-2 granddaughters, 1975 Chi grandson and granddaughter, 1977 Vic-3 children. Lives with in [place]. Moved up from [place] in early Female Reproductive History Menstrual Menopause type: surgical History History 3 Para Hx # Term Pregnancies 3 Multiple births Hx # Pregnancies Ectopic pregnancies AB induced Hx Number of Living Children AB spontaneous Time Spent with Patient Time Spent with Patient: <45 minutes Time was spent: preparing to see the patient(eg.review tests), obtaining and/or reviewing separately otained hiistory, ordering medications,tests, procedures, referring, communicating with other health care specialist, indepentently interpreting results, counseling the patient and care coordination
--- NOTE | 2025-04-06 16:18 | PDOC.CMDIS ---
Date of service: 04/06/25 Time of Service: 16:18 LACE Index Scoring Tool Questions: Length of Stay (in days): 1 Was the patient admitted via the E.D.?: Yes E.D. Visits: 1 Answers: Total Score: 5 Risk of Readmission: Low Risk Care Management Discharge Plan Reason for Hospitalization: Nephrolithiasis Discharge Plan: Charlette is being discharged home via private vehicle with family. Patient will follow up with community providers and her discharge plan of care as directed. No new services are ordered at the time of this discharge. Patient/Family Education Needs: Review discharge instructions and plan to follow up after discharge. Discuss ask me three.
[2025-04-08 12:51] LABS: Lab Add On Test DONE
[2025-04-08 13:14] LABS: TSH 0.89 uIU/mL (0.36-3.74)
== END 2025-04-06 16:38 | disposition home or self-care (01) | DRG 661 ==
LOC: ER 04-06 03:11 → MS 04-06 03:27
PROVIDERS: Urology; Admitting Provider Family Medicine; Emergency Provider Student in an Organized Health Care Education/Training Program; PCP Family Medicine; Responsible Provider Family Medicine; Visit Provider Family Medicine
PROC: BT1DZZZ Fluoroscopy of Right Kidney, Ureter and Bladder (ICD-10-PCS; CPT 74450; principal; 2025-04-06 11:45)
DX: I10 Essential (primary) hypertension; I25.10 Atherosclerotic heart disease of native coronary artery without angina pectoris; N13.6 Pyonephrosis; G31.84 Mild cognitive impairment of uncertain or unknown etiology; M06.00 Rheumatoid arthritis without rheumatoid factor, unspecified site; Z93.2 Ileostomy status; K75.81 Nonalcoholic steatohepatitis (NASH); Z79.52 Long term (current) use of systemic steroids; Z85.038 Personal history of other malignant neoplasm of large intestine; Z90.49 Acquired absence of other specified parts of digestive tract; E66.812 Obesity, class 2; M16.11 Unilateral primary osteoarthritis, right hip; F41.9 Anxiety disorder, unspecified; Z79.899 Other long term (current) drug therapy; E55.9 Vitamin D deficiency, unspecified; F32.A Depression, unspecified; E78.5 Hyperlipidemia, unspecified; E89.0 Postprocedural hypothyroidism; Z85.850 Personal history of malignant neoplasm of thyroid; Z96.653 Presence of artificial knee joint, bilateral; Z68.38 Body mass index [BMI] 38.0-38.9, adult
CPT/HCPCS: 52332; 00123; 36415; 80048; 80053; 96361; 96365; 96367; 96375; 99222; 99285; 74176; 74420; 81003; 81015; 84443; 85025; 87086; 99235; J0131; J0692; J0696; J1100; J1885; J2270; J2405; J2704; J3010; Q9967

== ENCOUNTER 2025-04-16 08:28 | Day surgery (SDC) | payer MEDICARE, SELFPAY ==
[2025-04-16 08:30] VITALS: BP 135/69; PULSE 76; RESP 16; TEMP 36.2; O2SAT 98
--- NOTE | 2025-04-16 08:38 | W.PM.HP.N ---
Date of service: 04/16/25 Time of Service: 08:38 Assessment and Plan Assessment and plan (1) Ureteral obstruction, right: Status: Acute Assessment and plan: We will move ahead with cystoscopy, removal of her right ureteral stent, right flexible ureteroscopy and holmium laser lithotripsy of her right ureteral stone. History of Present Illness History of Present Illness Chief Complaint: Right ureteral stone Narrative: This is a 74-year-old woman who presented to the emergency department with a right proximal ureteral stone. She was having significant chills and we were concerned that she had an underlying infection. We urgently placed a ureteral stent. Her ultimate urine culture did not show any infection. She presents now for ureteroscopy and treatment of her stone. Review of Systems Narrative: No fevers or chills No vision change or dysphasia Hypothyroidism. No diabetes No shortness of breath, cough or hemoptysis No chest pain or palpitations No nausea, vomiting, hepatitis, ulcers, jaundice No seizures, strokes or peripheral neuropathy No bleeding disorders or anemia No gout PFSH All Active Problems (Updated 04/15/25 @ 12:07 by Arianna Madison MD) Murmur, cardiac (Acute) Arthritis or polyarthritis, rheumatoid (Chronic) Taste disorder (Acute) Ureteral obstruction, right (Acute ~03/2025) prior stone analysis with calcium stones 2023 Trochanteric bursitis, right hip (Acute) Mild cognitive impairment (Acute) Painful total knee replacement, right (Acute) Painful total knee replacement, left (Acute) Acquired deformity of right foot (Acute) CAD (coronary artery disease) (Chronic) Word finding difficulty (Chronic) Class 2 obesity due to excess calories with body mass index (BMI) of 38.0 to 38.9 in adult (Acute) Osteoarthritis of right hip (Acute) DEPO MEDROL 07/05/23 Hypothyroidism, acquired (Acute) Seronegative rheumatoid arthritis (Chronic) on Humira, prednisone. Managed at [facility] [place] Carpal tunnel syndrome of left wrist (Chronic) Anxiety (Chronic) 2020-Rx alprazolam occasional panic-like episodes-drug contract through [facility] Non-alcoholic fatty liver disease (Acute) Vitamin D deficiency (Acute 10/22/16) Polymyalgia rheumatica (Acute 03/29/12) Dr Wood ([facility] [place] seronegative RA) Essential hypertension (Acute 05/15/13) Depressive disorder (Chronic) had side effects with bupropion, tolerating duloxetine. Difficult airway for intubation (Acute) Medical History (Updated 04/15/25 @ 12:07 by Arianna Madison MD) Ureteral obstruction, left 8mm obstructing stone, hydronephrosis History of COVID-19 10/2020-URI symptoms decreased taste and smell Low grade squamous intraepithelial lesion on cytologic smear of cervix (LGSIL) (04/11/17) 2015 colpo directed biopsies showed inflammation but no dysplasia. 2017 Pap - low-grade ISH. Negative HPV. Global directed biopsies - low-grade ISH. Vaginal estrogen recommended for 1 year with repeat code testing in 2018. Kidney stone (05/16/13) 2.2 cm staghorn left kidney (surgery to remove at [facility] [place] 2012) Crohn's disease (02/01/12) colectomy with ileostomy [facility] [place] hepato/gastro -2015: ileostomy and fibroscan (no liver fibrosis; tx= diet, weight) Primary malignant neoplasm of thyroid gland 2011. S/P thyroidectomy. No XRT. Endometrial cancer 04/201414. Grade 1, Stage 1. s/p supracervical hysterectomy [facility] [place]. No chemo or radiation required. Yearly paps of cervix recommended. Hyperlipidemia Primary malignant neoplasm of colon 2010 - mass distinct from Crohns. Surgical History (Updated 04/13/25 @ 12:33 by King Castillo) S/P cystoscopy with ureteral stent placement (~10/21/23) [facility] [place]; recurrent 03/2025 - right S/P coronary artery stent placement (06/2023) mid segment of LAD - 1x FIDELINA. F/u with Watson 10/02/24 Staghorn calculus S/P JESÚS-BSO (~2013) supracervical JESÚS/BSO at [facility] [place] for endometrial CA stage 1, grade1 S/P cholecystectomy (~2007) S/P shoulder surgery Status post total bilateral knee replacement S/P thyroidectomy (~2011) S/P ileostomy (~2005) S/P colectomy Dilation and curettage (04/22/14) hysteroscopy and D+C. Final path result: complex endometrial hyperplasia with atypia. Family History Mother , AGE 82 Essential hypertension Hyperlipidemia Father , age 57 Essential hypertension Heart disease Myocardial infarction Stroke Sister Diabetes Essential hypertension Heart disease Pituitary adenoma Asthma Brother Essential hypertension Ulcerative colitis Paternal Grandfather Heart disease Paternal Grandmother Diabetes Sister Diabetes Essential hypertension Depression Asthma Heart disease Alcohol abuse Sister Essential hypertension Heart disease Son Asthma Son Essential hypertension Hyperlipidemia Depression Daughter Asthma Depression Social History (Updated 04/06/25 @ 03:08 by Robert Pereira) Smoking/Tobacco Use Status: Never Second Hand Exposure: Yes Smoking risk assessment performed?: Yes Alcohol Intake: never Drug use: Never Substance use type: does not use Adopted: No Caregiver/Support person: No Household members: spouse Housing: house Number of Children: 3 number of grandchildren: 4 Communication Needs: None Education Level: high school Do you need help understanding health information?: Never 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 [employer] Pets and animals: No Do you think of yourself as: decline to answer Current gender identity: female and decline to answer What is your relationship status?: How often do you talk on the phone with friends or family?: three or more times per week How often do you get together with friends or relatives?: once per week How often do you attend sikhism or anglican services?: decline to answer Do you belong to any clubs or organized social groups?: decline to answer Panel score (0-1 are the most socially isolated patients): 2 What type of physical activity do you participate in: decline to answer Duration: decline to answer Frequency: decline to answer Shelby/Scientologist: No preference Special shelby needs: No Seatbelt use: always Helmet use: No Drive intox or ride w/intox forklift driver: No Firearms in home: No Do you feel safe at home: Yes Do you feel safe in your relationship?: Yes Victim of physical abuse: No Victim of emotional abuse: No Victim of sexual abuse: No Female Reproductive History Menstrual Menopause type: surgical History History 3 Para Hx # Term Pregnancies 3 Multiple births Hx # Pregnancies Ectopic pregnancies AB induced Hx Number of Living Children AB spontaneous Meds Allergies and Home Medications Allergies Allergy/AdvReac Type Severity Reaction Status Date / Time atorvastatin AdvReac LFTS Verified 04/16/25 08:40 fentanyl AdvReac CRAZY Verified 04/16/25 08:40 BEHAVIOR Home Medications ?Medication ?Instructions ?Recorded ?Confirmed ?Type prednisone 1 mg tablet 2 mg PO DAILY 09/29/22 04/13/25 History aspirin 81 mg chewable tablet 81 mg PO DAILY 07/17/23 04/13/25 History mmfxccbdqdyy-Ve-fiiv-minerals 18 1 tab PO DAILY 07/18/23 04/13/25 History mg-0.4 mg tablet omeprazole 40 mg capsule,delayed 40 mg PO DAILY #90 caps 09/17/24 04/13/25 Rx release Held on 04/06/25. Instructions: Resume on 04/13/25. amlodipine 5 mg tablet 5 mg PO BID #180 tabs 10/24/24 04/13/25 Rx nitroglycerin 0.4 mg sublingual 0.4 mg sublingual Q5M PRN chest 10/24/24 04/13/25 Rx tablet pain #30 tabs rosuvastatin 20 mg tablet 20 mg PO QHS #90 tabs 10/24/24 04/13/25 Rx Onnit Brain Focus and Memory 1 tab PO DAILY 11/05/24 04/13/25 History magnesium citrate 125 mg capsule 125 mg PO DAILY 11/05/24 04/13/25 History etanercept 50 mg/mL (1 mL) 50 mg subcut QWEEK 12/10/24 04/13/25 History subcutaneous pen injector (Enbrel Vincentick) metoprolol succinate 50 mg 50 mg PO DAILY #90 tabs 12/25/24 04/13/25 Rx tablet,extended release 24 hr duloxetine 60 mg capsule,delayed 60 mg PO DAILY #90 ea 02/13/25 04/13/25 Rx release donepezil 10 mg tablet 10 mg PO DAILY #30 tabs 04/01/25 04/13/25 Rx nystatin 100,000 unit/mL oral 5 ml PO DAILY 04/06/25 04/13/25 History suspension hydrochlorothiazide 25 mg tablet 25 mg PO DAILY #90 tabs 04/08/25 04/13/25 Rx memantine 10 mg tablet 10 mg PO BID #60 tabs 04/08/25 04/13/25 Rx levothyroxine 125 mcg tablet See Rx Instructions .Route 04/09/25 04/13/25 Rx .COMPLEX #90 tabs saliva substitute combo no.9 15 ml mucous membrane BID-QID PRN 04/15/25 04/15/25 Rx (Biotene Dry Mouth Oral Rinse dry mouth #473 mL mouthwash) Exam Const General: cooperative Neck Neck: supple Resp Effort & Inspection: normal respiratory effort Auscultation: clear to auscultation bilaterally Cardio Rate: regular rate Rhythm: regular rhythm GI Palpation: soft Neuro General: patient alert, patient awake and patient oriented x3
[2025-04-16] MEDS: Lactated Ringers 1,000 ML 80 ML IV (08:47)
== END 2025-04-16 08:29 ==
LOC: SUR 08:29
PROVIDERS: PCP Family Medicine; Visit Provider Urology
DX: Z53.9 Procedure and treatment not carried out, unspecified reason (principal)

== ENCOUNTER 2025-04-24 03:54 | Outpatient (CLI) | payer MEDICARE, SELFPAY ==
--- NOTE | 2025-04-24 12:30 | DI.US_ITS ---
APPROVED REPORT EXAM: Comprehensive 2D, Doppler, and color-flow Echocardiogram Patient Location: Out-Patient Burner Operator: Rosa Perry RDCS (AE) Indications: New cardiac murmur, CAD Other Information Study Quality: Adequate Conclusion Normal left ventricular wall thickness and chamber size. Ejection fraction is 60%. Wall motion is normal Normal right ventricular size and function Moderately dilated left atrium. Normal right atrial size Trileaflet aortic valve without stenosis or regurgitation Mild mitral annular calcification. Mild mitral regurgitation Estimated right ventricular systolic pressure is 27 mmHg Wall motion Left Ventricle The left ventricle is normal size. The left ventricular systolic function is normal. The left ventricular ejection fraction is within the normal range. There is normal left ventricular wall thickness. There is normal LV segmental wall motion. There is no ventricular septal defect visualized. LVEF is 60%. Right Ventricle The right ventricle is normal size. The right ventricular systolic function is normal. Atria Left atrium is moderately dilated. The right atrium size is normal. The interatrial septum is intact with no evidence for an atrial septal defect. Aortic Valve The aortic valve is normal in structure. Aortic valve is trileaflet. There is no aortic valvular stenosis. No aortic regurgitation is present. Mitral Valve Mild mitral annular calcification. No evidence of mitral valve stenosis. mild mitral regurgitation. Tricuspid Valve The tricuspid valve is normal in structure. There is no tricuspid valve stenosis. Trace tricuspid regurgitation. The RVSP is _27.2_ mmHg. Pulmonic Valve The pulmonary valve is normal in structure. There is no pulmonic valvular stenosis. Trace pulmonic regurgitation. Great Vessels The aortic root is normal in size. The ascending aorta is normal in size. Aortic arch is not well visualized. IVC is normal in size and collapses >50% with inspiration. Pericardium There is no pericardial effusion. 2D Dimensions IVSD d PLAX 0.90 cm F: 0.6-1.0 Ao Root d 2.59 cm F: 2.7 - 3.3 LVPW d PLAX 0.90 cm F: 0.6 - 1.0 Ao Asc Diam d 2.80 cm F: 2.3 - 3.1 LVID d PLAX 4.80 cm F: 3.8 - 5.2 LVDs 3.30 cm F: 2.2 - 3.5 LV EF Teichholz 58.9 % FS 31.22 % LV EDV (Teich) 106.5 mL LV ESV (Teich) 43.8 mL M-Mode TAPSE 1.96 cm (M/F) >1.7 Auto EF LV EDV A4C 102.9 mL LV EDV A2C 87.3 mL LV EDV BP 96.6 mL LV ESV A4C 42.3 mL LV ESV A2C 36.2 mL LV ESV BP 38.7 mL LVEF(%) A4C 58.9 % LVEF(%) A2C 58.5 % LVEF(%) BP 60.0 % LV SV A4C 60.6 ml LV SV A2C 51.1 ml LV SV BP 57.9 ml LV CO A4C 3.7 L/min LV CO A2C 2.7 L/min LV CO BP 3.2 L/min HR A4C 61.54 BPM HR A2C 53.34 BPM LV EDV Index (BP) LA Volume LA Length A4C 6.5 cm LA Length A2C 6.8 cm LA Area A4C s 26.94 cm2 LA Area A2C s 24.34 cm2 LA Vol A4C A-L 94.29 mL LA Vol A2C A-L 74.30 mL LA Vol Biplane A-L 85.2 mL LA Vol/BSA A4C A-L LA Vol/BSA A2C A-L LA Vol/BSA BP A-L 43.7 mL/m2 LA Vol A4C MOD 88.9 mL LA Vol A2C MOD 70.5 mL LA Vol BP MOD 80.3 mL RA Volume RA Area A4C 14.4 cm2 RA ESV A4C (A-L) 35.1mL RA Vol/BSA A4C A-L RA Length A4C 5.0 cm RA ESV A4C (MOD) 33.6mL LV Diastology MV E' medial 0.082 (>0.07 m/s) MV E Vmax 1.21 (0.4-1.3 m/s) MV E/E' MED 14.77 (<14) MV A Vmax 0.95 (0.4-1.3 m/s) MV E' lateral 0.071 (>0.1 m/s) E/A Ratio 1.3 MV E/E' LAT 16.98 (<14) MV E' Average 0.077 m/s MV E/E'(average) 15.80 Aortic Valve AoV Vmax 1.83 m/s LVOT Vmax 0.97 m/s AoV Peak Grad 13.4 mmHg LVOT Peak Grad 3.8 mmHg AoV Area (Vmax) 1.56 cm2 LVOT VTI 0.253 m AoV VTI 0.456 m LVOT Mean Grad 2.5 mmHg AoV Mean Hector. 1.32 m/s LVOT SV 73.96 mL AoV Mean Grad 7.8 mmHg LVOT Diam s 1.90 cm AoV Area (VTI) 1.62 cm2 AV Regurg Peak Gr. 13.37 mmHg Velocity Ratio 0.53 Mitral Valve MV DT 160 (160-240 msec) MV Vmax TIPS 1.09 m/s MV Mean Grad 1.9 (<2mmHg) MV VTI 0.407 m Pulmonary Valve PV Vmax 0.95 (0.5-1.5 m/s) RVOT Vmax 0.75 m/s PV Peak Grad 3.6 mmHg RVOT Peak Gr. 2.3 mmHg PV Mean Hector 0.66 m/s RVOT VTI 0.163 m PV Mean Grad 2.0 mmHg RVOT Mean Gr. 1.3 mmHg Tricuspid Valve RA Pressure 3.00 mmHg TR Vmax 2.46 m/s TV S' 0.12 m/s TR Peak Grad 24.2 mmHg RVSP (TR) 27.2 mmHg
== END 2025-04-24 04:14 ==
LOC: DI 03:54
PROVIDERS: PCP Family Medicine; Visit Provider Internal Medicine Cardiovascular Disease
DX: R01.1 Cardiac murmur, unspecified (principal); I25.10 Atherosclerotic heart disease of native coronary artery without angina pectoris; I35.0 Nonrheumatic aortic (valve) stenosis
CPT/HCPCS: 36415; 82397; 85652; 86200; 86235; 86255; 86704; 86706; 86803; 87340; 93306; 83516; 86038; 86140; 86162; 86431

== ENCOUNTER 2025-04-24 04:02 | Outpatient (CLI) | payer MEDICARE, SELFPAY ==
[2025-04-24 13:59] LABS: ESR 12 mm/hr (0-30)
[2025-04-24 15:57] LABS: C-Reactive Protein < 0.50 mg/dL (<or=0.5)
[2025-04-24 23:47] LABS: HBs Antibody, Qual Negative (See Note); HBs Antibody, Quant 3.3 mIU/mL (See Note); Hepatitis C Ab w Rflx HCV PCR Negative (Negative)
[2025-04-27 12:16] LABS: Complement, Total 61 U/mL (30-75)
[2025-04-29 11:51] LABS: Myeloperoxidase Ab IgG <0.2 U (>=0.4); RNP Ab, IgG <0.2 U; SS-A/Ro, IgG <0.2 U; SS-B (La) Ab, IgG <0.2 U; Sm (Smith) Ab, IgG <0.2 U
[2025-04-29 12:04] LABS: EJ Ab Negative (Negative); HMG-CoA Reductase Ab <20.0 CU (<20.0); MDA5 Ab Negative (Negative); Mi2 Ab Negative (Negative); NXP2 Ab Negative (Negative); OJ Ab Negative (Negative); PL12 Ab Negative (Negative); PL7 Ab Negative (Negative); SAE1 Ab Negative (Negative); SRP IFA Screen Negative (Negative); TIF 1G Ab Negative (Negative)
== END 2025-04-24 04:03 | disposition home or self-care (01) ==
LOC: LBO 04:02
PROVIDERS: PCP Family Medicine; Visit Provider Family Medicine
DX: R68.2 Dry mouth, unspecified (principal); R43.9 Unspecified disturbances of smell and taste; M06.9 Rheumatoid arthritis, unspecified
CPT/HCPCS: 36415; 82397; 85652; 86200; 86235; 86255; 86704; 86706; 86803; 87340; 83516; 86038; 86140; 86162; 86431

== ENCOUNTER 2025-04-27 08:49 | Day surgery (SDC) | payer MEDICARE, SELFPAY ==
[2025-04-27] VITALS (17 sets, daily range): BP systolic 137–163; BP diastolic 54–113; PULSE 57–81; RESP 11–21; TEMP 36.1–36.7; O2SAT 92–98; BMI 38.2
--- NOTE | 2025-04-27 09:29 | W.ANESPRE ---
General Info Date of Service Date Performed: 04/27/25 Height: 5 ft 2 in Weight: 95 kg Body Mass Index (BMI): 38.2 Surgical Procedure: Operation Date: 04/27/25 09:10 Proposed Procedure Side Surgeon p CYSTO, REMOVE RIGHT STENT, RETROGRADE, RETEROSCOPY, LASER Right Constantino Corbin MD Meds Allergies and Home Medications Allergies Allergy/AdvReac Type Severity Reaction Status Date / Time atorvastatin AdvReac LFTS Verified 04/27/25 09:16 fentanyl AdvReac CRAZY Verified 04/27/25 09:16 BEHAVIOR Home Medication ?Medication ?Instructions ?Recorded prednisone 1 mg tablet 2 mg PO DAILY 09/29/22 aspirin 81 mg chewable tablet 81 mg PO DAILY 07/17/23 mfqifgsanxub-Vm-ygnp-minerals 18 1 tab PO DAILY 07/18/23 mg-0.4 mg tablet omeprazole 40 mg capsule,delayed 40 mg PO DAILY #90 caps 09/17/24 release Held on 04/06/25. Instructions: Resume on 04/13/25. amlodipine 5 mg tablet 5 mg PO BID #180 tabs 10/24/24 nitroglycerin 0.4 mg sublingual 0.4 mg sublingual Q5M PRN chest 10/24/24 tablet pain #30 tabs rosuvastatin 20 mg tablet 20 mg PO QHS #90 tabs 10/24/24 Onnit Brain Focus and Memory 1 tab PO DAILY 11/05/24 magnesium citrate 125 mg capsule 125 mg PO DAILY 11/05/24 etanercept 50 mg/mL (1 mL) 50 mg subcut QWEEK 12/10/24 subcutaneous pen injector (Engee Bhagat) metoprolol succinate 50 mg 50 mg PO DAILY #90 tabs 12/25/24 tablet,extended release 24 hr duloxetine 60 mg capsule,delayed 60 mg PO DAILY #90 ea 02/13/25 release donepezil 10 mg tablet 10 mg PO DAILY #30 tabs 04/01/25 nystatin 100,000 unit/mL oral 5 ml PO DAILY 04/06/25 suspension hydrochlorothiazide 25 mg tablet 25 mg PO DAILY #90 tabs 04/08/25 memantine 10 mg tablet 10 mg PO BID #60 tabs 04/08/25 levothyroxine 125 mcg tablet See Rx Instructions .Route 04/09/25 .COMPLEX #90 tabs saliva substitute combo no.9 15 ml mucous membrane BID-QID PRN 04/15/25 (Biotene Dry Mouth Oral Rinse dry mouth #473 mL mouthwash) Current Visit Medications: Current Medications Generic Name Dose Route Start Last Admin Trade Name Jeronimo PRN Reason Stop Dose Admin Ringer's Solution 1,000 mls @ 80 mls/hr 04/27/25 06:00 IV 05/27/25 23:59 INFUSION ALEIDA Cefazolin Sodium/Dextrose 2 gm in 50 mls @ 100 mls/hr 04/27/25 06:00 Ancef Duplex IVPB 05/27/25 23:59 PREOP ALEIDA IV Miscellaneous Supplies 1 each 04/27/25 06:00 Iv Access IV 05/27/25 23:59 DIRECTED ALEIDA Sodium Chloride 0 ml 04/27/25 06:00 Normal Saline Flush 10 Ml Syr IV 05/27/25 23:59 PRN PRN Sodium Chloride 0 ml 04/27/25 06:00 Normal Saline 10 Ml Vial IJ 05/27/25 23:59 DIRECTED PRN Sterile Water 0 ml 04/27/25 06:00 Water,Injection,Sterile 10 Ml Vial IJ 05/27/25 23:59 DIRECTED PRN PFSH Active Problems Active Problems: Problem Status Onset Code Dry mouth Acute R68.2 Murmur, cardiac Acute R01.1 Arthritis or polyarthritis, rheumatoid Chronic M06.9 Taste disorder Acute R43.9 Ureteral obstruction, right Acute ~03/2025 N13.5 Trochanteric bursitis, right hip Acute M70.61 Mild cognitive impairment Acute G31.84 Painful total knee replacement, right Acute T84.84XA, Z96.651 Painful total knee replacement, left Acute T84.84XA, Z96.652 Acquired deformity of right foot Acute M21.961 CAD (coronary artery disease) Chronic I25.10 Word finding difficulty Chronic R47.89 Class 2 obesity due to excess calories with body mass index (BMI) of 38.0 to 38.9 in adult Acute E66.09, Z68.38 Osteoarthritis of right hip Acute M16.11 Hypothyroidism, acquired Acute E03.9 Seronegative rheumatoid arthritis Chronic M06.00 Carpal tunnel syndrome of left wrist Chronic G56.02 Anxiety Chronic F41.9 Non-alcoholic fatty liver disease Acute K76.0 Vitamin D deficiency Acute 10/22/16 E55.9 Polymyalgia rheumatica Acute 03/29/12 M35.3 Essential hypertension Acute 05/15/13 I10 Depressive disorder Chronic F32.9 Difficult airway for intubation Acute T88.4XXA Medical History Medical History Ureteral obstruction, left 8mm obstructing stone, hydronephrosis History of COVID-19 10/2020-URI symptoms decreased taste and smell Low grade squamous intraepithelial lesion on cytologic smear of cervix (LGSIL) (04/11/17) 2015 colpo directed biopsies showed inflammation but no dysplasia. 2017 Pap - low-grade ISH. Negative HPV. Global directed biopsies - low-grade ISH. Vaginal estrogen recommended for 1 year with repeat code testing in 2018. Kidney stone (05/16/13) 2.2 cm staghorn left kidney [place] [facility] [place] Crohn's disease (02/01/12) colectomy with ileostomy [facility]: ileostomy and fibroscan (no liver fibrosis; tx= diet, weight) Primary malignant neoplasm of thyroid gland 2011. S/P thyroidectomy. No XRT. Endometrial cancer 04/201414. Grade 1, Stage 1. s/p supracervical hyste[place] [facility] No chemo or radiation required. Yearly paps of cervix recommended. Hyperlipidemia Primary malignant neoplasm of colon 2010 - mass distinct from Crohns. Surgical History Surgical History S/P cystoscopy with ureteral stent placement (~10/21/23[place] [facility] 03/2025 - right S/P coronary artery stent placement (06/2023) mid segment of LAD - 1x FIDELINA. F/u with Watson 10/02/24 Staghorn calculus S/P JESÚS-BSO (~2013) supracervical JESÚS/BSO [place] [facility] [place] endometrial CA stage 1, grade1 S/P cholecystectomy (~2007) S/P shoulder surgery Status post total bilateral knee replacement S/P thyroidectomy (~2011) S/P ileostomy (~2005) S/P colectomy Dilation and curettage (04/22/14) hysteroscopy and D+C. Final path result: complex endometrial hyperplasia with atypia. Tobacco Smoking/Tobacco Use Status: Never Passive smoking exposure: Yes Second hand exposure: Yes Alcohol Alcohol Intake: never Substance Use Substance use: Never Substance use type: does not use Prental History History 3 Para Hx # Term Pregnancies 3 Multiple births Hx # Pregnancies Ectopic pregnancies AB induced Hx Number of Living Children AB spontaneous Vital Signs and Lab Results Vital Signs Most Recent Vital Signs in EMR: Most Recent Vital Signs Temp Pulse Resp BP Pulse Ox 36.3 C L 69 16 159/61 H 98 04/27/25 09:02 04/27/25 09:02 04/27/25 09:02 04/27/25 09:02 04/27/25 09:02 Lab Results Complete Blood Count: WBC, (4.4-10.8) 11.62 10^3/uL H 04/05/25, 23:01 RBC, (3.93-5.22) 4.66 10^6/uL 04/05/25, 23:01 Hgb, (11.2-15.7) 14.6 g/dL 04/05/25, 23:01 Hct, (36.0-46.0) 44.8 % 04/05/25, 23:01 Plt Count, (130-400) 334 10^3/uL 04/05/25, 23:01 Complete Metabolic Panel: Sodium, (136-145) 142 mmol/L 04/06/25, 05:55 Potassium, (3.5-5.1) 3.8 mmol/L 04/06/25, 05:55 Chloride, (98-107) 107 mmol/L 04/06/25, 05:55 Carbon Dioxide, (21.0-32.0) 30.8 mmol/L 04/06/25, 05:55 BUN, (7-18) 14 mg/dL 04/06/25, 05:55 Creatinine, (0.55-1.02) 0.7 mg/dL 04/06/25, 05:55 Est GFR (CKD-EPI 2020), (mL/min/1.73m2) 90.70 04/06/25, 05:55 Calcium, (8.5-10.1) 9.1 mg/dL 04/06/25, 05:55 Albumin, (3.4-5.0) 4.1 g/dL 04/05/25, 23:01 Glucose, (74-106) 121 mg/dL H 04/06/25, 05:55 C-Reactive Protein, (<or=0.5) < 0.50 mg/dL 04/24/25, 13:45 Liver Function Panel: ALT, (14-59) 36 U/L 04/05/25, 23:01 AST, (15-37) 27 U/L 04/05/25, 23:01 Thyroid Panel: TSH, (0.36-3.74) 0.89 uIU/mL 04/06/25, 05:55 Infectious Disease: Hep Bs Antigen, (Negative) Negative 04/24/25, 13:45 Hepatitis C Antibody, (Negative) Negative 04/24/25, :45 Imaging and Studies Imaging and Studies Study information below may be from another EMR and interpreted by another provider. Please see original notes in EMR for more complete details. EKG Summary: 10/02/24 Conclusion Sinus rhythm...normal P axis, V-rate 50- 99 Atrial premature complex...SV complex w/ short R-R interval LVH with secondary repolarization abnormality...multi-LVH criteria, abnrm ST-T Echocardiogram Summary: Patient Name: Page Katz Unit #: [id number] Loc: Ordering Provider: Arianna Madison M.D. Status: [facility] Primary Care Provider: Latha Aguirre M.D. Date of Exam: 04/24/25 Sex: F Admission Date: 04/24/25 : 1950 Age: 74 APPROVED REPORT EXAM: Comprehensive 2D, Doppler, and color-flow Echocardiogram Patient Location: Out-Patient Swat Team Member: Rosa Perry RDCS (AE) Indications: New cardiac murmur, CAD Other Information Study Quality: Adequate Conclusion Normal left ventricular wall thickness and chamber size. Ejection fraction is 60%. Wall motion is normal Normal right ventricular size and function Moderately dilated left atrium. Normal right atrial size Trileaflet aortic valve without stenosis or regurgitation Mild mitral annular calcification. Mild mitral regurgitation Estimated right ventricular systolic pressure is 27 mmHg Anesthesia Assessment and Plan Anesthesia History Personal History: No History of Anesthesia Complications Family History: No Family History of Anesthesia Complications Exercise Tolerance Exercise Tolerance: Unknown (doesn't go up stairs due to arthritis, can walk distances and doesn't get overly winded. ) Pertinent Negatives Pertinent Negatives: No Major Cardiovascular Symptoms or Complaints and No Major Pulmonary Symptoms or Complaints Cardiac & Pulmonary Exam Cardiac Exam: Normal S1/S2 Heart Sounds Pulmonary Exam: Clear Bilateral Breath Sounds Implantable Cardiac Device Does patient have a Pacemaker or an ICD?: No Airway Exam Known Difficult Airway: No Mallampati Class: 4 Mouth Opening: Narrow (< 3cm) Thyromental Distance: Less than 3 cm Neck Range of Motion: Full ROM Neck Circumference: Normal Teeth Condition: Normal Dentition ASA Classification ASA Score: ASA 3 Emergency Case?: No NPO Status NPO Status: NPO Clears >2 hours, Solids >8 hours Anesthesia Plan Resuscitation Status: Full Code Anesthesia Technique: General Anesthesia Airway Planned: Natural Airway Monitors Used: Standard Monitors
--- NOTE | 2025-04-27 09:34 | W.PM.HP.N ---
Date of service: 04/27/25 Time of Service: 09:34 Assessment and Plan Assessment and plan (1) Ureteral obstruction, right: Status: Acute Assessment and plan: We will plan to do her cystoscopy, stent removal and flexible ureteroscopy to address the ureteral stone. Since she has had a stent in place for a few weeks now, I may be able to extract the stone intact without needing the holmium laser. History of Present Illness History of Present Illness Chief Complaint: Right ureteral stone Narrative: This is a 74-year-old woman who has a history of kidney stones. In the past, her stones have been calcium based. She initially presented to see us with renal colic. She had leukocytosis and chills, so we were concerned about an underlying infection. We placed a ureteral stent. She returned for completion ureteroscopy, but in the interim, she was told that a heart murmur was detected and an echocardiogram was ordered. That the echocardiogram has been completed, she returns for ureteroscopy. She has quite a bit of stent discomfort. She is not having fevers or chills. Review of Systems Narrative: No fevers or chills No vision change or dysphasia Hypothyroidism. No diabetes No shortness of breath, cough or hemoptysis No chest pain or palpitations No nausea, vomiting, hepatitis, ulcers, jaundice No seizures, strokes or peripheral neuropathy No bleeding disorders or anemia PMR. Seronegative RA. No gout PFSH All Active Problems Dry mouth (Acute) Murmur, cardiac (Acute) Arthritis or polyarthritis, rheumatoid (Chronic) Taste disorder (Acute) Ureteral obstruction, right (Acute ~03/2025) prior stone analysis with calcium stones 2023 Trochanteric bursitis, right hip (Acute) Mild cognitive impairment (Acute) Painful total knee replacement, right (Acute) Painful total knee replacement, left (Acute) Acquired deformity of right foot (Acute) CAD (coronary artery disease) (Chronic) Word finding difficulty (Chronic) Class 2 obesity due to excess calories with body mass index (BMI) of 38.0 to 38.9 in adult (Acute) Osteoarthritis of right hip (Acute) DEPO MEDROL 07/05/23 Hypothyroidism, acquired (Acute) Seronegative rheumatoid arthritis (Chronic) on Humira, prednisone. Man[place] [facility] [place] Carpal tunnel syndrome of left wrist (Chronic) Anxiety (Chronic) 2020-Rx alprazolam occasional panic-like episodes-drug contract through [facility] Non-alcoholic fatty liver disease (Acute) Vitamin D deficiency (Acute 10/22/16) Polymyalgia rheumatica (Acute 03/29/12) Dr Wood ([facility]- vs seronegative RA) Essential hypertension (Acute 05/15/13) Depressive disorder (Chronic) had side effects with bupropion, tolerating duloxetine. Difficult airway for intubation (Acute) Medical History Ureteral obstruction, left 8mm obstructing stone, hydronephrosis History of COVID-19 10/2020-URI symptoms decreased taste and smell Low grade squamous intraepithelial lesion on cytologic smear of cervix (LGSIL) (04/11/17) 2015 colpo directed biopsies showed inflammation but no dysplasia. 2017 Pap - low-grade ISH. Negative HPV. Global directed biopsies - low-grade ISH. Vaginal estrogen recommended for 1 year with repeat code testing in 2018. Kidney stone (05/16/13) 2.2 cm staghorn left kidney (surgery to remove at [facility] [place]) Crohn's disease (02/01/12) colectomy with ileostomy [facility] [place]astro -2015: ileostomy and fibroscan (no liver fibrosis; tx= diet, weight) Primary malignant neoplasm of thyroid gland 2011. S/P thyroidectomy. No XRT. Endometrial cancer 04/201414. Grade 1, Stage 1. s/p supracervical hysterectomy [facility]. No chemo or radiation required. Yearly paps of cervix recommended. Hyperlipidemia Primary malignant neoplasm of colon 2010 - mass distinct from Crohns. Surgical History S/P cystoscopy with ureteral stent placement (~10/21/23) [facility]; recurrent 03/2025 - right S/P coronary artery stent placement (06/2023) mid segment of LAD - 1x FIDELINA. F/u with Watson 10/02/24 Staghorn calculus S/P JESÚS-BSO (~2013) supracervical JESÚS/BSO at [facility] for endometrial CA stage 1, grade1 S/P cholecystectomy (~2007) S/P shoulder surgery Status post total bilateral knee replacement S/P thyroidectomy (~2011) S/P ileostomy (~2005) S/P colectomy Dilation and curettage (04/22/14) hysteroscopy and D+C. Final path result: complex endometrial hyperplasia with atypia. Family History Mother , AGE 82 Essential hypertension Hyperlipidemia Father , age 57 Essential hypertension Heart disease Myocardial infarction Stroke Sister Diabetes Essential hypertension Heart disease Pituitary adenoma Asthma Brother Essential hypertension Ulcerative colitis Paternal Grandfather Heart disease Paternal Grandmother Diabetes Sister Diabetes Essential hypertension Depression Asthma Heart disease Alcohol abuse Sister Essential hypertension Heart disease Son Asthma Son Essential hypertension Hyperlipidemia Depression Daughter Asthma Depression Social History (Updated 04/06/25 @ 03:08 by Robert Pereira) Smoking/Tobacco Use Status: Never Second Hand Exposure: Yes Smoking risk assessment performed?: Yes Alcohol Intake: never Drug use: Never Substance use type: does not use Adopted: No Caregiver/Support person: No Household members: spouse Housing: house Number of Children: 3 number of grandchildren: 4 Communication Needs: None Education Level: high school Do you need help understanding health information?: Never 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 [employer] Pets and animals: No Do you think of yourself as: decline to answer Current gender identity: female and decline to answer What is your relationship status?: How often do you talk on the phone with friends or family?: three or more times per week How often do you get together with friends or relatives?: once per week How often do you attend taoism or jewish services?: decline to answer Do you belong to any clubs or organized social groups?: decline to answer Panel score (0-1 are the most socially isolated patients): 2 What type of physical activity do you participate in: decline to answer Duration: decline to answer Frequency: decline to answer [place]/Synagogue: No preference Special shelby needs: No Seatbelt use: always Helmet use: No Drive intox or ride w/intox operator and truck driver: No Firearms in home: No Do you feel safe at home: Yes Do you feel safe in your relationship?: Yes Victim of physical abuse: No Victim of emotional abuse: No Victim of sexual abuse: No Female Reproductive History Menstrual Menopause type: surgical History History 3 Para Hx # Term Pregnancies 3 Multiple births Hx # Pregnancies Ectopic pregnancies AB induced Hx Number of Living Children AB spontaneous Meds Allergies and Home Medications Allergies Allergy/AdvReac Type Severity Reaction Status Date / Time atorvastatin AdvReac LFTS Verified 04/27/25 09:16 fentanyl AdvReac CRAZY Verified 04/27/25 09:16 BEHAVIOR Home Medications ?Medication ?Instructions ?Recorded ?Confirmed ?Type prednisone 1 mg tablet 2 mg PO DAILY 09/29/22 04/27/25 History aspirin 81 mg chewable tablet 81 mg PO DAILY 07/17/23 04/27/25 History zzfgvycvbccv-Tl-swia-minerals 18 1 tab PO DAILY 07/18/23 04/27/25 History mg-0.4 mg tablet omeprazole 40 mg capsule,delayed 40 mg PO DAILY #90 caps 09/17/24 04/27/25 Rx release Held on 04/06/25. Instructions: Resume on 04/13/25. amlodipine 5 mg tablet 5 mg PO BID #180 tabs 10/24/24 04/27/25 Rx nitroglycerin 0.4 mg sublingual 0.4 mg sublingual Q5M PRN chest 10/24/24 04/27/25 Rx tablet pain #30 tabs rosuvastatin 20 mg tablet 20 mg PO QHS #90 tabs 10/24/24 04/27/25 Rx Onnit Brain Focus and Memory 1 tab PO DAILY 11/05/24 04/27/25 History magnesium citrate 125 mg capsule 125 mg PO DAILY 11/05/24 04/27/25 History etanercept 50 mg/mL (1 mL) 50 mg subcut QWEEK 12/10/24 04/27/25 History subcutaneous pen injector (Shamika Bhagat) metoprolol succinate 50 mg 50 mg PO DAILY #90 tabs 12/25/24 04/27/25 Rx tablet,extended release 24 hr duloxetine 60 mg capsule,delayed 60 mg PO DAILY #90 ea 02/13/25 04/27/25 Rx release donepezil 10 mg tablet 10 mg PO DAILY #30 tabs 04/01/25 04/27/25 Rx nystatin 100,000 unit/mL oral 5 ml PO DAILY 04/06/25 04/27/25 History suspension hydrochlorothiazide 25 mg tablet 25 mg PO DAILY #90 tabs 04/08/25 04/27/25 Rx memantine 10 mg tablet 10 mg PO BID #60 tabs 04/08/25 04/27/25 Rx levothyroxine 125 mcg tablet See Rx Instructions .Route 04/09/25 04/27/25 Rx .COMPLEX #90 tabs saliva substitute combo no.9 15 ml mucous membrane BID-QID PRN 04/15/25 04/27/25 Rx (Biotene Dry Mouth Oral Rinse dry mouth #473 mL mouthwash) Exam Const General: cooperative Neck Neck: supple Resp Effort & Inspection: normal respiratory effort Auscultation: clear to auscultation bilaterally Cardio Rate: regular rate Rhythm: regular rhythm GI Palpation: soft and no masses Neuro General: patient alert, patient awake and patient oriented x3 Results Last Vital Signs Temp 36.3 C L 04/27/25 09:02 Pulse 69 04/27/25 09:02 Resp 16 04/27/25 09:02 BP 159/61 H 04/27/25 09:02 Pulse Ox 98 04/27/25 09:02 Time Spent Time spent with Patient: <40 minutes Time was spent: other
[2025-04-27] MEDS: Lactated Ringers 1,000 ML 80 ML IV (09:37)
[2025-04-27] MEDS: ceFAZolin 2 GM/50 ML BAG IVPB (10:02)
[2025-04-27] MEDS: Omnipaque 300 MG/ML 50 ML BTL (10:24)
[2025-04-27] MEDS: Lidocaine 2% Jelly 6 ML SYR (10:24)
--- NOTE | 2025-04-27 10:42 | W.PM.DSUDISC ---
Date of service: 04/27/25 Discharge Plan Disposition Patient Disposition: Home Condition: Stable Discharge Details Reason For Visit: ureteroscopy and stone removal Attending Provider: Constantino Corbin Primary Care Provider: Latha Aguirre Home Meds and New Rx's Prescriptions: No Action prednisone 1 mg tablet 2 mg PO DAILY bkvjvlblgurz-Gc-gccc-minerals 18-0.4 mg tablet 1 tab PO DAILY rosuvastatin 20 mg tablet 20 mg PO QHS Qty: 90 3RF nitroglycerin 0.4 mg tablet, sublingual 0.4 mg sublingual Q5M PRN (Reason: chest pain) Qty: 30 0RF Rx Instructions: do not exceed 3 doses per episode amlodipine 5 mg tablet 5 mg PO BID Qty: 180 3RF Biotene Dry Mouth Oral Rinse Mouthwash 15 ml mucous membrane BID-QID PRN (Reason: dry mouth) Qty: 473 2RF Rx Instructions: swish for 15-30 secs , then spit out; do not swallow Enbrel SureClick 50 mg/mL (1 mL) pen injector 50 mg subcut QWEEK memantine 10 mg tablet 10 mg PO BID Qty: 60 2RF Rx Instructions: start after taking memantine 5mg bid for 1 weeks hydrochlorothiazide 25 mg tablet 25 mg PO DAILY Qty: 90 3RF aspirin 81 mg tablet,chewable 81 mg PO DAILY omeprazole 40 mg capsule,delayed release(DR/EC) 40 mg PO DAILY Qty: 90 3RF magnesium citrate 125 mg capsule 125 mg PO DAILY [employer] capsule 1 tab PO DAILY Rx Instructions: Ingredients: B6: 10mg l-Tyrosine, L-Theanine, Oat Extract, Phosphatidylserine: 650mg Cats claw bark extract: 350mg L-Alpha glycerylphosphortlcholine: 240mg Bacopa leaves extract 100mg, Toothed Clubmoss whole Extract(400mcg) L-Leucine, Pterostilbene: 60mg metoprolol succinate 50 mg tablet extended release 24 hr 50 mg PO DAILY Qty: 90 3RF duloxetine 60 mg capsule,delayed release(DR/EC) 60 mg PO DAILY Qty: 90 3RF donepezil 10 mg tablet 10 mg PO DAILY Qty: 30 3RF levothyroxine 125 mcg tablet See Rx Instructions .ROUTE .COMPLEX Qty: 90 3RF Dose Instruction: TAKE ONE TABLET BY MOUTH EVERY DAY Rx Instructions: TAKE ONE TABLET BY MOUTH EVERY DAY nystatin 100,000 unit/mL suspension 5 ml PO DAILY Patient Comments: TAKE 5 ML BY MOUTH FOUR TIMES A DAY FOR 10 DAYS Discharge Instructions Additional Instructions: There is no need to strain your urine You will have a follow-up appointment with me in the office in about 8 weeks. We will plan to do a renal ultrasound in the office when you come in to see us. Stand Alone Forms: Anesthesia Discharge Inst., [facility] ([facility]) Activity:: Activity as Tolerated Shower/Bathe:: 24 hours Diet:: As Tolerated Discharge Orders Discharge Orders: Discharge Order (Routine); Ordered 04/27/25 Ordered By: Constantino Corbin DS: Diagnosis Discharge Diagnosis (1) Ureteral obstruction, right: Status: Acute
--- NOTE | 2025-04-27 10:44 | ROE_ITS ---
Operative Note Operative Note PRE-OP DIAGNOSIS: Right ureteral stone POST-OP DIAGNOSIS: same PROCEDURE: cystoscopy, remove right ureteral stent, right retrograde pyelogram, right ureteroscopy and stone extraction SURGEON: Constantino Corbin ANESTHESIA TYPE: Local By Surgeon and General:No Airway Refer to Anesthesia Record ESTIMATED BLOOD LOSS: 5 PATHOLOGY: other (stone for chemical analysis) COMPLICATIONS: None Patient was transported to: same day Patient's condition: stable Implants: none Indications: This is a 74-year-old woman who has a past history of calcium-based stones. She presented to the emergency department with renal colic. She was found to have leukocytosis and chills. We were concerned that she might have an infected system, so in addition to antibiotics, we simply placed a ureteral stent. She returns now for stent removal and treatment of her right proximal ureteral stone Findings: Stone had been bumped back into the renal pelvis Procedure Description: The patient was given IV antibiotics and brought to the operating room on 04/27/2025. After successful induction of general anesthesia, she was placed in the dorsal lithotomy position. Her genitalia was prepped and draped. 2% Xylocaine jelly was instilled into the urethra. A 22 Faroese rigid cystoscope was passed through the urethra into the bladder. The bladder was inspected with a 30 degree lens. A stent could be seen protruding from the right ureteral orifice. The stent was grasped with alligator forceps and brought out to the level of the urethral meatus. We noted stone encrustation had already formed on the stent. A guidewire was passed through the lumen of the stent and the stent was removed leaving the wire in place. We then passed the dual-lumen catheter over the wire and injected Omnipaque through the second lumen of the dual-lumen catheter. Using fluoroscopy, we are able to outline the anatomy of the kidney. We passed a second guidewire and removed the dual-lumen catheter. We chose one of the wires as a working wire and the other is a safety wire. I passed the ureteral access sheath over the working wire leaving the safety wire in place. I then passed the flexible ureteroscope through the lumen of the access sheath. On direct visualization of the upper ureter and collecting system, we identified her previous right proximal ureteral stone in the renal pelvis. The stone was grasped in a ZeroTip stone basket and removed in its entirety. The stone was sent for chemical analysis. We elected not to replace her ureteral stent. The ureteral access sheath and safety wire were removed. No evidence of ureteral injury was identified as we withdrew the ureteroscope under direct vision. She tolerated this procedure well with no complications. Date of Procedure: 04/27/25
--- NOTE | 2025-04-27 10:47 | DI.RAD_ITS ---
Exam(s) XR RETROGRADE IN OR EXAM: XR RETROGRADE IN OR CLINICAL HISTORY: RIGHT URETERAL STONE. TECHNIQUE: Fluoroscopy was provided for the referring physician for guidance with performing retrograde procedure. COMPARISON: No exams were available for comparison FINDINGS: Please see procedure note for details. Fluoro time: 9 seconds RADIATION DOSE DELIVERED: Josefar=1.2 mGy
[2025-04-27] MEDS: Droperidol 5 MG/2 ML VIAL 0.625 MG IVP (10:52)
[2025-04-27] MEDS: Phenazopyridine 200 MG TAB PO (11:42)
--- NOTE | 2025-04-27 11:59 | W.ANESPOSTOP ---
Postoperative Evaluation Date, Time and Location Date Performed: 04/27/25 Time Performed: 11:59 Patient Location: Day Surgery Unit Vital Signs Most Recent Imported Vital Signs: Most Recent Vital Signs Temp Pulse Resp BP Pulse Ox 36.3 C L 63 14 140/60 94 04/27/25 11:51 04/27/25 11:51 04/27/25 11:51 04/27/25 11:51 04/27/25 11:51 Pain Score Most Recent Pain Score: Most Recent Pain Score Pain Level 1 04/27/25 11:51 Assessment Mental Status: Awake (Alert & Oriented to Patient Baseline) Airway and Respiratory Function: Patent airway with normal (patient baseline) respiratory exam Cardiovascular Function: Hemodynamically Stable Hydration Status: Adequately Hydrated Nausea & Vomiting: No Nausea or Vomiting Pain: Pt. Denies Any Pain Peripheral Nerve Block: Patient did not receive a nerve block
== END 2025-04-27 12:13 | disposition home or self-care (01) ==
PROVIDERS: PCP Family Medicine; Visit Provider Urology
PROC: (CPT 52352; principal; 2025-04-27 09:00)
DX: N20.0 Calculus of kidney (principal)
CPT/HCPCS: 52352; 74420; 82365; J0690; J1100; J1790; J1885; J2003; J2405; J2704; Q9967

== ENCOUNTER 2025-05-22 03:28 | Outpatient (CLI) | payer MEDICARE, SELFPAY ==
[2025-05-22 10:45] LABS: Anion Gap 8.8 mmol/L (3-11); BUN 20 mg/dL (7-18); CO2 31.2 mmol/L (21.0-32.0); Calcium 9.7 mg/dL (8.5-10.1); Calculated LDL 60 mg/dL (<100); Chloride 105 mmol/L (98-107); Cholesterol 155 mg/dL (<200); Estimated GFR 94.13 (mL/min/1.73m2); Glucose 101 mg/dL (74-106); HDL Cholesterol 71 mg/dL (>or=50); Magnesium 1.9 mg/dL (1.8-2.4); Potassium 3.6 mmol/L (3.5-5.1); Sodium 145 mmol/L (136-145); Triglyceride 123 mg/dL (<150); Vitamin B12 426 pg/mL (193-986)
== END 2025-05-22 03:29 | disposition home or self-care (01) ==
LOC: LBO 03:28
PROVIDERS: PCP Family Medicine; Visit Provider Family Medicine
DX: Z13.6 Encounter for screening for cardiovascular disorders (principal); I25.10 Atherosclerotic heart disease of native coronary artery without angina pectoris; I10 Essential (primary) hypertension; R68.2 Dry mouth, unspecified
CPT/HCPCS: 36415; 80048; 80061; 82607; 83735

== ENCOUNTER 2025-05-26 13:31 | Outpatient (REF) | payer MEDICARE, SELFPAY ==
[2025-05-27 09:52] LABS: Calcium Urine 20.7 mg/dL (See Note); Timed Urine Volume 1050 mL
== END 2025-05-26 13:32 | disposition home or self-care (01) ==
LOC: LBN 13:31
PROVIDERS: PCP Family Medicine; Visit Provider Family Medicine
DX: N13.5 Crossing vessel and stricture of ureter without hydronephrosis (principal)
CPT/HCPCS: 82140; 82340; 82436; 82507; 82570; 83735; 83935; 83945; 83986; 84105; 84133; 84300; 84392; 84540; 84560; 81050

== ENCOUNTER → 2025-07-13 14:06 | Outpatient (BNVA) | payer MEDICARE, SELFPAY | PROVIDERS: PCP Family Medicine; Referring Provider Family Medicine; Visit Provider Student in an Organized Health Care Education/Training Program | DX: M70.61 Trochanteric bursitis, right hip (principal); M76.31 Iliotibial band syndrome, right leg | CPT/HCPCS: 99214; 20611; J1010 ==